=== PATIENT | female | born 1945 | race Caucasian/White ===

== ENCOUNTER → 2017-05-29 10:52 | Outpatient (CLI) | payer MEDICARE, SELFPAY ==
--- NOTE | 2017-05-29 11:01 | XR_ITS ---
XR foot RT min 3V HISTORY: ITS.REASON: RT FOOT PAIN, CONTUSION OF RT FOOT ORDERING PHYSICIAN: Oren Pressley MD PATIENT AGE: 71 years COMPARISON: None FINDINGS: Flexion deformity involves the second, third, and fourth toes with overlap of the mid and proximal phalanges and the PIPs. There is a faint lucency at the distal aspect of the proximal phalanx of the third digit and may be related to mock line from the overlap. A nondisplaced fracture cannot be excluded as there is some minimal cortical irregularity of the distal aspect of the proximal phalanx. Please correlate as to patient's area of pain and tenderness. No other significant anomalies are evident. IMPRESSION: 1. Hammertoe deformity second, third, and fourth toes 2. Possible nondisplaced fracture distal aspect proximal phalanx of the third toe 3. Otherwise negative
== END ==
PROVIDERS: PCP Internal Medicine Adolescent Medicine; Visit Provider Internal Medicine Adolescent Medicine
DX: S90.31XA Contusion of right foot, initial encounter (principal)
CPT/HCPCS: 73630

== ENCOUNTER → 2017-05-31 15:45 | Outpatient (CLI) | payer MEDICARE, SELFPAY ==
--- NOTE | 2017-05-31 15:51 | XR_ITS ---
XR ribs RT min 3V w CXR1V HISTORY: ITS.REASON: RT SIDE CHEST WALL PAIN,LYMPHOMA OF LYMPH NODES ORDERING PHYSICIAN: Victorina Estrada PATIENT AGE: 71 years COMPARISON: None FINDINGS: A frontal view of the chest shows no acute finding. Multiple views of the right ribs were obtained. No fracture or dislocation. No lytic or blastic change. IMPRESSION: Negative RIBS. If pain persists, consider follow-up exam in 7-[address] with 3-D reformats.
== END ==
PROVIDERS: PCP Internal Medicine Adolescent Medicine; Visit Provider Nurse Practitioner Family
DX: R07.89 Other chest pain (principal); C85.98 Non-Hodgkin lymphoma, unspecified, lymph nodes of multiple sites
CPT/HCPCS: 71101

== ENCOUNTER → 2017-06-17 14:24 | Outpatient (POV) | payer MEDICARE, SELFPAY | PROVIDERS: PCP Internal Medicine Adolescent Medicine; Visit Provider Dermatology | DX: Z00.00 Encounter for general adult medical examination without abnormal findings (principal) ==

== ENCOUNTER → 2017-11-08 10:53 | Outpatient (CLI) | payer MEDICARE, SELFPAY ==
--- NOTE | 2017-11-08 10:55 | MM_ITS ---
MM Dig screening mamm BI w/CAD CAD Screening COMPARISON: Digital mammograms with CAD 12/27/2015 and 03/23/2014 INDICATION: There is no personal or family history of breast cancer TECHNIQUE: Standard CC and MLO images were obtained. R2 CAD reviewed. FINDINGS: Mild to moderate diffuse fibroglandular densities are seen throughout both breasts. There is a possible developing asymmetric density upper outer quadrant right breast. This likely is a summation shadow of glandular structures however recommend the patient return for spot compression views. Ultrasound may be necessary as well. There are couple benign-appearing calcifications in each breast. There are no suspicious microcalcifications. IMPRESSION: Fibrofatty parenchyma with possible developing asymmetric density right breast BI-RADS Category: 0 Need Additional Imaging Evaluation RECOMMENDED FOLLOW-UP: IMM - IMMEDIATE FOLLOW-UP RECOMMENDED (A letter has been sent to the patient regarding results of the study.)
== END ==
PROVIDERS: PCP Internal Medicine Adolescent Medicine; Visit Provider Nurse Practitioner Family
DX: Z12.31 Encounter for screening mammogram for malignant neoplasm of breast (principal)
CPT/HCPCS: 77067

== ENCOUNTER → 2017-11-18 13:30 | Outpatient (CLI) | payer MEDICARE, SELFPAY ==
--- NOTE | 2017-11-18 | MM_ITS ---
MM Dig mamm DX unilat RT CAD, US breast RT complete INDICATION: Follow-up abnormal mammogram ORDERING PHYSICIAN: Victorina Estrada PATIENT AGE: 72 years COMPARISON: 11/08/2017 TECHNIQUE: Problem-solving views performed of the right breast along with right breast ultrasound FINDINGS: Scattered asymmetric fibroglandular elements noted. There are a few small benign-appearing nodular opacities laterally which are are 5 mm or less. These are not demonstrated by ultrasound. No malignant appearing mass or malignant appearing microcalcification is evident. Right breast ultrasound: No breast nodules are demonstrated. There are enlarged nodes in the right axilla measuring up to 3 x 1.4 cm with heterogeneous appearance. The patient has known lymphoma. IMPRESSION: Probably benign findings of the right breast regarding the small benign-appearing nodules in the lateral aspect of the right breast Right axillary adenopathy consistent with patient's known lymphoma. BI-RADS Category: 3 Benign Finding Short Term Follow-up RECOMMENDED FOLLOW-UP: 6M - 6 MONTH FOLLOW-UP (A letter has been sent to the patient regarding results of the study.)
== END ==
PROVIDERS: PCP Internal Medicine Adolescent Medicine; Visit Provider Nurse Practitioner Family
DX: R92.8 Other abnormal and inconclusive findings on diagnostic imaging of breast (principal)
CPT/HCPCS: 76641; 77065

== ENCOUNTER 2017-12-31 10:35 | Observation (INO) ==
[2017-12-31 12:07] LABS: Basophils # 0.7 K/mm3 (0-0.2); Basophils % 0.9 % (0.1-2.0); Hematocrit 43.4 % (37.0-47.0); Hemoglobin 14.3 g/dL (12.2-16.2); Lymphocytes # 65.7 K/mm3 (0.7-4.5); Lymphocytes % 87.6 K/mm3 (10-50); Mean Corpuscular Hemoglobin 30.4 pg (27.0-31.2); Mean Platelet Volume 8.9 fl (7.4-10.4); Monocytes # 1.1 K/mm3 (0.1-1.0); Monocytes % 1.4 % (1.7-9.3); Neutrophils # 7.5 K/mm3 (1.8-7.8); Platelet Count 173 K/mm3 (142-424); Red Blood Count 4.71 M/mm3 (4.20-5.40); Red Cell Distribution Width 13.6 % (11.5-17.5)
[2017-12-31 12:16] LABS: Neutrophils % 10.1 % (37.0-80.0)
[2017-12-31 12:17] LABS: White Blood Count 75.4 K/mm3 (4.8-10.8)
[2017-12-31 12:22] LABS: Alanine Aminotransferase 22 U/L (12-78); Albumin Level 3.9 gm/dL (3.4-5.0); Albumin/Globulin Ratio 1.1 (1.1-1.8); Alkaline Phosphatase 63 U/L (46-116); Anion Gap 14.1 mEq/L (5-15); Aspartate Amino Transferase 11 U/L (15-37); Bilirubin,Total 0.4 mg/dL (0.2-1.0); Blood Urea Nitrogen 14 mg/dL (7-18); Carbon Dioxide 25 mmol/L (21.0-32.0); Chloride 102 mmol/L (98-107); Chol/HDL Ratio 1.8 (1-3.5); Cholesterol 141 mg/dL (140-200); Globulin 3.4 gm/dl (1.3-3.2); Glucose 122 mg/dL (74-106); HDL Cholesterol 79 mg/dL (29-89); LDL Cholesterol 42 mg/dL (0-130); Potassium 4.1 mmoL/L (3.5-5.1); Sodium 137 mmol/L (136-145); Total Protein,Serum 7.3 gm/dL (6.4-8.2); Triglycerides 100 mg/dL (30-200); VLDL Cholesterol 20 mg/dL (0-40)
[2017-12-31 12:29] LABS: Thyroid Stimulating Hormone 2.22 uIU/ml (0.358-3.740)
--- NOTE | 2017-12-31 13:00 | Pharmacy Consult Notes ---
[facility] Pharmacy VTE Monitoring - Patient Demographics Admission date: 12/31/17 Report Date: 12/31/17 Time: 13:00 Allergies/Adverse Reactions: Patient Allergies pravastatin Allergy (Mild, Verified 12/21/17 13:52) MUSCLE CRAMPS simvastatin Adverse Reaction (Intermediate, Verified 12/21/17 13:52) MUSCLE CRAMPS promethazine Adverse Reaction (Mild, Verified 12/21/17 13:52) PROBLEMS WITH IV FORM, MAKES CRAZY, NO PROBLEM WITH PO Height: 1.65 m Weight: 98.174 kg - VTE Risk Labs: VTE Related Lab Results Hgb 14.3 g/dL (12.2-16.2) 12/31/17 11:20 Hct 43.4 % (37.0-47.0) 12/31/17 11:20 Plt Count 173 K/mm3 (142-424) 12/31/17 11:20 BUN 14 mg/dL (7-18) 12/31/17 11:20 Creatinine 1.57 mg/dL (0.55-1.02) H 12/31/17 11:20 Was VTE Risk Assessment Performed: Yes VTE Score: 1 VTE Risk Level: Very Low Risk Clinical Trial Participant: No - Prophylaxis VTE Prophylaxis Ordered?: Yes Types of VTE Prophylaxis: TEDS Knee High
[2017-12-31 16:13] LABS: Lymphocytes % 91 % (10-50); Monocytes % 1 % (2-9); Neutrophils % 8 % (42-76); Total Cells Counted 100
[2017-12-31 16:23] LABS: RBC Morphology Normal
[2017-12-31 17:16] LABS: Microscopic, Urine URINE MICROSCOPIC (MICROSCOPIC)
[2017-12-31 17:20] LABS: Appearance,Urine SL CLOUDY (Clear); Bilirubin,Urine Negative (Negative); Blood, Urine 1+ (Negative); Color,Urine YELLOW (Yellow); Glucose,Urine (UA) Negative (Negative); Ketones,Urine Negative (Negative); Leukocyte Esterase,Urine 3+ (Negative); Protein,Urine Negative (Negative); Specific Gravity, Urine <= 1.005 (1.005-1.030); Urobilinogen,Urine 0.2 EU/dl (0.2)
[2017-12-31 17:42] LABS: Bacteria,Urine 3+ /lpf; WBC,Urine Occasional #/hpf (0-3)
--- NOTE | 2018-01-03 21:36 | Cardiology Report ---
PROCEDURE: 2-D M-mode and color Doppler study INDICATIONS FOR THE TEST: Chest pain COPD Heart Murmur Tobacco Smoking Palpitations Fatigue Syncope Edema Hypertension Diabetes Mellitus Rheumatic Fever SOB+KURTZ Obesity+Hyperlipidemia Family History HD Additional History PATIENT INFORMATION HEIGHT: 66 WEIGHT:214 GENDER: Female B/P:164/72 2-D/M-MODE INTERPRETATION: 2-D MEASUREMENTS OBSERVED VALUES IN CMS Right Ventricular Dimension (RVDd) 2.6 Interventricular Septum (Thickness)(IVsd) 1.4 Left Ventricular Internal Dimensions(LVIDd) 4.6 Left Ventricular Posterior Wall (Thickness)(LVPWd) 1.4 Aortic Root 3.4 Aortic Cusp Separation 1.8 Left Atrial Dimensions (LAD) 3.9 2D 1. Left atrium is moderately enlarged, left ventricle is normal size, mild concentric left ventricular hypertrophy, visually estimated ejection fraction 55% with no obvious regional wall motion abnormality. 2. The right atrium and right ventricle are normal size and contractility. 3. The aortic valve is minimally thickened and fibrosed. 4. The mitral and tricuspid valve leaflets are minimally thickened. 5. The pulmonic valve is poorly visualized. 6. No significant pericardial effusion noted. DOPPLER INTERROGATION: Doppler interrogation of the aortic, mitral and tricuspid valvular presence of mild mitral and tricuspid regurgitation, tricuspid regurgitation jet velocity insufficient for calculation of the right ventricular systolic pressure, diastolic parameters are inconclusive. CONCLUSION: 1. Moderately enlarged left atrium, normal left ventricular size, mild concentric left ventricular hypertrophy, visually estimated ejection fraction of 55% with no regional wall motion abnormality, diastolic parameters are inconclusive. 2. Mild mitral and tricuspid regurgitation 3. No significant pericardial effusion noted.
--- NOTE | 2018-01-27 13:20 | H&P/Discharge Summary ---
General - General Admission date:: 12/31/17 Discharge date: 01/01/18 *Admission Date: 12/31/17 *Chief complaint: Heart fluttering *History of present illness: 72-year-old white female with active CLL currently under chemotherapy treatment, who came to my office on the day of admission, yesterday with a chief complaint of heart fluttering. She did felt very weak and was nervous about her heart fluttering. Interestingly she noticed this a couple of days ago when she awoke but 5 days ago had an uncomplicated colonoscopy and she recalls at the nursing staff reported that "you have an irregular heartbeat." The colonoscopy went without incident. She denies chest pain or increasing edema but was very concerned about the fluttering. In my office blood pressure was unremarkable, EKG showed new onset atrial fib rillation and she was admitted overnight for laboratory testing, observation and medication initiation. [facility] History I have reviewed the patient's past medical history: Yes Medical History: Reports:: Anxiety, Cancer (lymphoma), Depression, Hyperlipidemia, Hypertension Denies:: Diabetes Mellitus Type 1, Diabetes Mellitus Type 2, Internal Pacemaker, Lung Disease, MRSA, Seizures Other Medical History: Reports: Other (Obesity, CLL, lymphoma) Laterality Cases: Left: Tonsillectomy, Bilateral: Cataract Other Surgeries: Yes: Cholecystectomy, Colonoscopy, Hernia Repair. No: Pacemaker Amputation: No Fractures: No - *Social History Smoking Status: Former smoker # Packs/Day (cigarettes): 0 #Yrs smoked (if former smoker): 0 Smoking End Date: 40 years Alcohol Intake: never Alcohol Intake Frequency:: other Substance Use Type: denies use Occupational Status: retired - Psychiatric History Expresses thoughts of harming self/others: None Suicide Plan Description: No Plan Pschychiatric History:: Reports:: Anxiety, Depression *Family Hx:: No significant family history Review of Systems - Review of Systems Review of systems:: pertinent systems reviewed and negative unless documented below - Constitutional Reports lack of energy, Reports malaise - Eyes Denies blind spots, Denies blurry vision, Denies change in vision - ENT Denies abnormal hearing, Denies change in voice - *Cardiovascular Reports shortness of breath with activity, Reports irregular heart rhythm, Reports rapid, pounding, or irregular heartbeat, Denies chest pain, Denies chest pain with activity, Denies shortness of breath, Denies leg swelling, Denies shortness of breath when lying down - *Respiratory Denies change in phlegm color, Denies chest congestion, Denies cough - *Gastrointestinal Denies abdominal pain, Denies change in stools, Denies loose stools, Denies vomiting - *Musculoskeletal Denies abnormal walking, Denies joint pain, Denies decreased muscle mass - *Neurologic Reports dizziness, Denies behavioral changes, Denies unsteadiness - Psychiatric Denies abnormal sleep pattern - Endocrine Reports rapid, pounding, or irregular heartbeat, Denies cold intolerance, Denies excessive sweating Exam Vital signs and Labs for Last 24 Hours: Temp Pulse Resp BP Pulse Ox 98.2 F 63 18 156/91 92 L 01/01/18 04:00 01/01/18 04:00 01/01/18 04:00 01/01/18 04:00 01/01/18 04:00 Laboratory Results - last 24 hr 12/31/17 11:20: WBC 75.4 H*, RBC 4.71, Hgb 14.3, Hct 43.4, MCV 92.0, MCH 30.4, MCHC 33.0, RDW 13.6, Plt Count 173, MPV 8.9, Neut % (Auto) 10.1 L, Lymph % (Auto) 87.6 H, [place] % (Auto) 1.4 L, Eos % (Auto) 0.0 L, Baso % (Auto) 0.9, Neut # (Auto) 7.5, Lymph # (Auto) 65.7 H, [place] # (Auto) 1.1 H, Eos # (Auto) 0.0, Baso # (Auto) 0.7 H, Total Counted 100, Neutrophils % (Manual) 8 L, Lymphocytes % (Manual) 91 H, Monocytes % (Manual) 1 L, Platelet Estimate Normal, RBC Morphology Normal 12/31/17 11:20: Sodium 137, Potassium 4.1, Chloride 102, Carbon Dioxide 25, Anion Gap 14.1, BUN 14, Creatinine 1.57 H, Estimated GFR 32 L, Est GFR ( Amer) 39 L, Glucose 122 H, Calcium 9.0, Magnesium 1.5, Total Bilirubin 0.4, AST 11 L, ALT 22, Alkaline Phosphatase 63, Total Protein 7.3, Albumin 3.9, Globulin 3.4 H, Albumin/Globulin Ratio 1.1, Triglycerides 100, Cholesterol 141, LDL Cholesterol 42, VLDL Cholesterol 20, HDL Cholesterol 79, Cholesterol/HDL Ratio 1.8 12/31/17 11:20: Troponin I < 0.02, TSH 2.22 12/31/17 17:10: Urine Color Yellow, Urine Appearance Sl cloudy, Urine pH 6.0, Ur Specific [place] <= 1.005, Urine Protein Negative, Urine Glucose (UA) Negative, Urine Ketones Negative, Urine Blood 1+, Urine Nitrate Negative, Urine Bilirubin Negative, Urine Urobilinogen 0.2, Ur Leukocyte Esterase 3+ A, Urine RBC None, Urine WBC Occasional, Ur Squamous Epith Cells 3-5, Urine Bacteria 3+ I & O for Last 24 hours: Intake & Output 12/29/17 12/30/17 12/31/17 01/01/18 11:59 11:59 11:59 11:59 Intake Total 1200 / 1200 Balance 1200 / 1200 Weight 216 lb 7 oz 216 lb 7 oz Microbiology Reports for the Last 24 Hours: Microbiology 12/31/17 17:10 Urine,Clean Catch Urine Culture - Preliminary Gram Negative Rods Narrative: Patient on admission and this morning is awake, alert. Oropharynx clear. No JVD. Skin is clear of rashes. Lungs have good air movement and are clear. Heart rate irregular in the mid 80s. Previously noted holosystolic murmur Abdomen soft and nontender. No edema or clubbing. Cranial nerves are intact. No evidence of damage to extremity power or sensation. Hospital Course Hospital Course: Patient was admitted. TSH, magnesium, electrolytes and troponin levels were unremarkable. Echocardiogram showed preserved ejection fraction at 55%. Chamber sizes were at the upper limits of normal but were still normal. Patient was given diltiazem which she tolerated very nicely. She was also given Lovenox injections. Given her CHADS score, ongoing chemotherapy which does have the reported side effect of atrial fibrillation hypertension I elected to treat her medically hold on cardioversion attempts at this point. We will initiate Eliquis therapy on discharge today along with diltiazem therapy. We will stop her clonidine and closely monitor her blood pressure on Wednesday. Results Labs on day of discharge: Labs from last 24 hours 12/31/17 12/31/17 12/31/17 17:10 11:20 11:20 WBC RBC Hgb Hct MCV MCH MCHC RDW Plt Count MPV Neut % (Auto) Lymph % (Auto) [place] % (Auto) Eos % (Auto) Baso % (Auto) Neut # (Auto) Lymph # (Auto) [place] # (Auto) Eos # (Auto) Baso # (Auto) Total Counted Neutrophils % (Manual) Lymphocytes % (Manual) Monocytes % (Manual) Platelet Estimate RBC Morphology Sodium 137 Potassium 4.1 Chloride 102 Carbon Dioxide 25 Anion Gap 14.1 BUN 14 Creatinine 1.57 H Estimated GFR 32 L Est GFR ( Amer) 39 L Glucose 122 H Calcium 9.0 Magnesium 1.5 Total Bilirubin 0.4 AST 11 L ALT 22 Alkaline Phosphatase 63 Troponin I < 0.02 Total Protein 7.3 Albumin 3.9 Globulin 3.4 H Albumin/Globulin Ratio 1.1 Triglycerides 100 Cholesterol 141 LDL Cholesterol 42 VLDL Cholesterol 20 HDL Cholesterol 79 Cholesterol/HDL Ratio 1.8 TSH 2.22 Urine Color Yellow Urine Appearance Sl cloudy Urine pH 6.0 Ur Specific [place] <= 1.005 Urine Protein Negative Urine Glucose (UA) Negative Urine Ketones Negative Urine Blood 1+ Urine Nitrate Negative Urine Bilirubin Negative Urine Urobilinogen 0.2 Ur Leukocyte Esterase 3+ A Urine RBC None Urine WBC Occasional Ur Squamous Epith Cells 3-5 Urine Bacteria 3+ 12/31/17 11:20 WBC 75.4 H* RBC 4.71 Hgb 14.3 Hct 43.4 MCV 92.0 MCH 30.4 MCHC 33.0 RDW 13.6 Plt Count 173 MPV 8.9 Neut % (Auto) 10.1 L Lymph % (Auto) 87.6 H [place] % (Auto) 1.4 L Eos % (Auto) 0.0 L Baso % (Auto) 0.9 Neut # (Auto) 7.5 Lymph # (Auto) 65.7 H [place] # (Auto) 1.1 H Eos # (Auto) 0.0 Baso # (Auto) 0.7 H Total Counted 100 Neutrophils % (Manual) 8 L Lymphocytes % (Manual) 91 H Monocytes % (Manual) 1 L Platelet Estimate Normal RBC Morphology Normal Sodium Potassium Chloride Carbon Dioxide Anion Gap BUN Creatinine Estimated GFR Est GFR ( Amer) Glucose Calcium Magnesium Total Bilirubin AST ALT Alkaline Phosphatase Troponin I Total Protein Albumin Globulin Albumin/Globulin Ratio Triglycerides Cholesterol LDL Cholesterol VLDL Cholesterol HDL Cholesterol Cholesterol/HDL Ratio TSH Urine Color Urine Appearance Urine pH Ur Specific [place] Urine Protein Urine Glucose (UA) Urine Ketones Urine Blood Urine Nitrate Urine Bilirubin Urine Urobilinogen Ur Leukocyte Esterase Urine RBC Urine WBC Ur Squamous Epith Cells Urine Bacteria Preliminary micro results at discharge 12/31/17 17:10 Urine Culture - Preliminary Urine,Clean Catch Gram Negative Rods DS: Diagnosis - Discharge Diagnosis (1) New onset atrial fibrillation Status: Acute (2) Hypertension, essential Status: Acute (3) CLL (chronic lymphocytic leukemia) Status: Chronic Discharge Medications - Medications for Discharge Home Medication List at Discharge: New Apixaban [Eliquis] 5 mg PO BID #1 tab.ds.pk dilTIAZem HCl [Diltiazem 180mg 24Hr ER Cap] 180 mg PO DAILY 30 Days cap.er.24h Continue clonazepam 0.5 mg tablet 0.5 mg PO DAILY 30 Days #30 rosuvastatin 5 mg tablet 5 mg PO HS 30 Days #30 paroxetine 40 mg tablet 40 mg PO DAILY 30 Days #30 ibrutinib 140 mg capsule 140 mg PO DAILY bupropion HCl XL 150 mg 24 hr tablet, extended release 150 mg PO DAILY 30 Days #30 Sennosides [Senna] 8.6 mg PO HS Linaclotide [Linzess] 290 mcg PO DAILY Bisoprol/Hydrochlorothiazide [Bisoprolol-Hctz 2.5-6.25 mg Tb] 1 tab PO DAILY Tetrahydrozoline HCl [Eye Drops] 15 ml OP DAILY Discontinued clonidine HCl 0.1 mg tablet 0.1 mg PO DAILY 30 Days #30
== END 2018-01-01 11:30 | disposition home or self-care (01) ==
LOC: 2ND
PROVIDERS: ADMIT Internal Medicine Adolescent Medicine; ATTEND Internal Medicine Adolescent Medicine

== ENCOUNTER → 2018-05-02 13:02 | Outpatient (CLI) | payer MEDICARE, SELFPAY ==
--- NOTE | 2018-05-02 | US_ITS ---
MM Dig mamm DX unilat RT CAD Right breast ultrasound complete with axilla: INDICATION: 6 month follow-up abnormal mammogram ORDERING PHYSICIAN: Victorina Estrada PATIENT AGE: 72 years COMPARISON: 11/08/2017, 11/18/2017 TECHNIQUE: Standard images performed along with spot compression views and right breast ultrasound FINDINGS: Average fibroglandular tissue. The area of asymmetric density in the lateral aspect of the left breast once again noted and appear to compress out with focal spot compression views. There is a 4 mm nodular opacity noted on this MLO view which is probably benign. Not felt to be significant change compared to 03/23/2014. Right breast ultrasound: No cystic or solid nodules evident. Small nodes are present in the axilla. Previously noted adenopathy has improved IMPRESSION: No convincing evidence of malignancy. No significant change. Suggest continue screening mammogram in November 2018 BI-RADS Category: 2 Benign Finding(s) RECOMMENDED FOLLOW-UP: 6M - 6 MONTH FOLLOW-UP (A letter has been sent to the patient regarding results of the study.)
== END ==
PROVIDERS: PCP Nurse Practitioner Family; Visit Provider Nurse Practitioner Family
DX: R92.8 Other abnormal and inconclusive findings on diagnostic imaging of breast (principal)
CPT/HCPCS: 76641; 77065

== ENCOUNTER → 2018-10-21 09:52 | Outpatient (CLI) | payer MEDICARE, SELFPAY ==
--- NOTE | 2018-10-21 09:57 | US_ITS ---
US Arterial Lower Ext Rest History: ITS.REASON: skin changes, weak pulses, hypertension ORDERING PHYSICIAN: Dian Gale DPM PATIENT AGE: 73 years TECHNIQUE: Segmental pressures obtained of both right and left leg. These are compared to brachial blood pressure to yield index at each level sampled including summary MENG. The data sheets from the procedure are available in PACS FINDINGS Rest study only performed today No prior studies available for comparison. Blood pressures reported are in millimeters mercury. RIGHT LEG MENG = 1.0. RIGHT LEG TBI=.5 Brachial BP: 182 Thigh BP: 210 Calf BP: 200 Ankle PT: 191 Ankle DP : 184 Digit =103 LEFT LEG MENG = .9 LEFT LEG TBI= .7 Brachial BPD: 189 Thigh BP: 204 Calf BP: 179 Ankle PT:167 Ankle DP: 147 Digit = 130 Pulses and waveforms: Normal IMPRESSION: The ABIs as reported above are within normal limits. Waveforms and pulses are also unremarkable. The right TBI is low suggesting small vessel disease
== END ==
PROVIDERS: PCP Nurse Practitioner Family; Visit Provider Podiatrist
DX: R09.89 Other specified symptoms and signs involving the circulatory and respiratory systems (principal)
CPT/HCPCS: 93923

== ENCOUNTER → 2018-11-15 16:13 | Outpatient (CLI) | payer MEDICARE, SELFPAY ==
--- NOTE | 2018-11-15 16:16 | MM_ITS ---
MM Dig screening mamm BI w/CAD CAD Screening COMPARISON: Diagnostic right mammogram with CAD 05/02/2018 and diagnostic right gram with CAD 11/18/2017 INDICATION: There is no personal or family history of breast cancer TECHNIQUE: Standard CC and MLO images were obtained. R2 CAD reviewed. FINDINGS: Scattered fibroglandular densities are seen in both breast. Again is a small area of asymmetric glandular tissue outer quadrant right breast only definitely seen on the cc view without corresponding focal abnormality on MLO view. This likely is simply asymmetric glandular tissue. There are few benign-appearing microcalcifications in each breast. There is no suspicious lesion and there are no suspicious microcalcifications. IMPRESSION: Fibrofatty parenchyma with no suspicious lesion seen BI-RADS Category: 2 Benign Finding(s) RECOMMENDED FOLLOW-UP: 1YR - 1 YEAR FOLLOW-UP (A letter has been sent to the patient regarding results of the study.)
== END ==
PROVIDERS: PCP Nurse Practitioner Family; Visit Provider Nurse Practitioner Family
DX: Z12.31 Encounter for screening mammogram for malignant neoplasm of breast (principal)
CPT/HCPCS: 77067

== ENCOUNTER 2018-12-07 16:00 | Outpatient (RCR) | payer MEDICARE, SELFPAY ==
--- NOTE | 2018-08-09 08:44 | HMH.PTOPWND ---
Rehab Outpt Wound Evaluation Rehab OP Wound Evaluation Start: 08/09/18 08:04 Freq: Status: Active Protocol: Document 08/09/18 08:40 RUPERT (Rec: 08/09/18 08:44 PHORNE [id number]) Electronically Signed By Timmy Gomes, PT 08/09/18 08:40 Subjective/History History History Pt is 72 yowf who presents with c/o right LE edema x ~ 3 mos with insidious onset of symptoms. She reports she first noticed redness in the right lower leg which then became edema and ecchymosis. SHe had US performed which was negative for DVT and she is on coumadin. She reports she is currently taking an oral chemo medication to treat her lymphoma diagnosed in 2011, she is unsure of what type lymphoma she has been diagnosed with. She also reports tenderness to palpation in her right LE at pes anserine bursa, GT bursa, and iliopsoas proximal tendon (superior to inguinal area). She has PMH of HTN, HL, Lymphoma, lap CCY, abdominal hernia, and bilateral TKA. Subjective Subjective Pain is 8/10 at worst in right superior inguinal area and only intermittent, currently 0 /10. Lymphedema Eval Classification of Lymphedema Secondary Lymphedema Yes Stemmer's sign Stemmer's Sign no Stage of Lymphedema Lymphedema stages Stage I (Pitting edema, reduces w/ elevation, no fibrosis) Skin Changes Dry Skin Yes Redness Yes Discoloration of Skin Yes Other Changes Yes Pain Scale Pain Scale (0-10) 8 Radiation Therapy Has received radiation therapy no Chemo Therapy Has received chemo therapy yes Affected Extremities Areas Affected by Lymphedema/Edema Abdomen,Right Lower Extremity Manual Lymphatic Drainage Treatment Area MLD Treatment Area Abdomen,Right Lower Extremity Wound Problems/Impairments Impairments Problems/Impairmments Palpation Tenderness,Impaired Gait Pattern,Impaired Walking, Imp
--- NOTE | 2018-09-30 13:29 | HMH.RHREAS ---
Rehab Reassessment Rehab OP Re-assessment Start: 09/30/18 13:22 Freq: Status: Active Protocol: Document 09/30/18 13:23 RUPERT (Rec: 09/30/18 13:29 RUPERT [id number]) Electronically Signed By Timmy Gomes, PT 09/30/18 13:23 Rehab Re-assessment Subjective Subjective Pt presents today with increased edema and redness in left LE with new order from MD for further treatment. She reports increased tenderness to palpation associated with her other symptoms and they have been present for ~ 1 mo. She reports feeling anxious about her circulation and losing her leg. She continues to take anticoagulant medication. Objective Objective Notes Left LE circumferential measurements: Total = 211.4 cm . Increased hemosiderin staining noted on the anterior left bower and palpation tenderness 3+/4 throughout the lower left leg. Assessment Progress Assessment Progressing as Expected Assessment Notes Pt has improved right LE edema and pain, but symptoms are increased on the left LE. Goals Not Met ST-6 LT-7 Revised Goals none Plan Plan Continue per initial POC. Frequency of Therapy 2 x/wk Duration of therapy 8 wks Time and Billing Re-Eval Time 15 Re-Eval Billing Units 1 PHYSICIAN CERTIFICATION: I certify the specified therapy services for Shea Iverson are required, authorized, and reviewed every 30 days.
== END 2018-12-07 16:05 | disposition home or self-care (01) ==
LOC: PT 16:00
PROVIDERS: PCP Nurse Practitioner Family; Visit Provider Nurse Practitioner Family
DX: I89.0 Lymphedema, not elsewhere classified (principal); R60.9 Edema, unspecified; C83.00 Small cell B-cell lymphoma, unspecified site
CPT/HCPCS: 97140; 97163; 97164; 97760

== ENCOUNTER → 2019-01-09 15:04 | Outpatient (CLI) | payer OTHER, MEDICARE, SELFPAY ==
--- NOTE | 2019-01-09 15:14 | XR_ITS ---
PROCEDURE: XR CERVICAL SPINE 5V CLINICAL INDICATION: WHIPLASH Left-sided neck pain radiating into the left arm COMPARISON: HDWO CT HEAD W/O CONTRAST from 11/30/2013 FINDINGS: Normal alignment. Degenerative disc disease C5-C6 and C6-C7 with endplate osteophytes. Minimal foraminal narrowing on the right at C5-C6 and on the left at C3-C4. Facet arthritic changes are noted from C3-C7. There is incomplete arch posteriorly at C1 and may represent a congenital finding. IMPRESSION: Degenerative changes as described above Dictated by: Avery Henning MD 01/09/2019 16:36 Electronically signed by Avery Henning MD in [place] 01/09/2019 16:36
== END ==
PROVIDERS: PCP Internal Medicine Adolescent Medicine; Visit Provider Internal Medicine Adolescent Medicine
DX: S13.4XXA Sprain of ligaments of cervical spine, initial encounter (principal)
CPT/HCPCS: 72050

== ENCOUNTER → 2019-02-14 15:02 | Outpatient (CLI) | payer MEDICARE, SELFPAY ==
--- NOTE | 2019-02-14 15:04 | US_ITS ---
PROCEDURE: US TRANSVAGINAL CLINICAL INDICATION: POST MENOPAUSAL BLEEDING COMPARISON: No exams were available for comparison FINDINGS: UTERUS: 6 x 2.6 x 3.2 cm with a combined endometrial thickness of 5 mm. There is a small nabothian cyst at 9 mm. The right ovary is 1.9 x 1.3 cm. The left ovary is 1.9 x 1.8 cm. No dominant cyst evident. No cul-de-sac fluid. IMPRESSION: Endometrial thickness is upper limits of normal for a postmenopausal patient otherwise negative pelvic ultrasound Dictated by: Avery Henning MD 02/14/2019 18:24 Electronically signed by Avery Henning MD in [place] 02/14/2019 18:24
== END ==
PROVIDERS: PCP Nurse Practitioner Family; Visit Provider Nurse Practitioner Family
DX: N95.0 Postmenopausal bleeding (principal)
CPT/HCPCS: 76830

== ENCOUNTER 2019-03-07 14:30 | Outpatient (RCR) | payer OTHER, MEDICARE, SELFPAY ==
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
== END 2019-03-07 14:35 | disposition home or self-care (01) ==
LOC: PT 14:30
PROVIDERS: PCP Nurse Practitioner Family; Visit Provider Internal Medicine Adolescent Medicine
DX: S13.4XXA Sprain of ligaments of cervical spine, initial encounter (principal)
CPT/HCPCS: 97014; 97016; 97033; 97035; 97110; 97140; 97163; 97164; G0283

== ENCOUNTER 2019-03-07 16:00 | Outpatient (RCR) | payer MEDICARE, SELFPAY ==
--- NOTE | 2019-02-20 16:02 | HMH.PTOPWND ---
Rehab Outpt Wound Evaluation Rehab OP Wound Evaluation Start: 02/20/19 14:50 Freq: Status: Active Protocol: Document 02/20/19 15:48 RUPERT (Rec: 02/20/19 16:01 PHORRUDOLPH [id number]) Electronically Signed By Timmy Gomes, PT 02/20/19 15:48 Subjective/History History History Pt is 73 yowf who presents with c/o B LE and UE feeling heavy and achy with increased edema. She is well known to our clinic na dhas been treated for B LE edema previously. She c/o tenderness to palpation throughout B lower legs and sgnificant c/o cramping in B LE intermittently. She reports some increased weight despite no changes in her diet. She is currently undergoing chemo for chronic lymphocytic leukemia (CLL). She also has PMHof B TKA, CCY, HTN. Subjective Subjective No c/o pain today, but does c/ o fatigue and tenderness to palpation throughout B lower legs and arms. Lymphedema Eval Classification of Lymphedema Secondary Lymphedema Yes Stemmer's sign Stemmer's Sign no Stage of Lymphedema Lymphedema stages Stage II (Pitting edema, increased fibrosis w/ decreased pitting) Skin Changes Dry Skin Yes Redness Yes Discoloration of Skin Yes Other Changes Yes Chemo Therapy Has received chemo therapy yes Affected Extremities Areas Affected by Lymphedema/Edema Right Upper Extremity,Left Upper Extremity,Abdomen,Right Lower Extremity,Left Lower Extremity Manual Lymphatic Drainage Treatment Area MLD Treatment Area Right Upper Extremity,Left Upper Extremity,Abdomen,Right Lower Extremity,Left Lower Extremity Wound Problems/Impairments Impairments Problems/Impairmments Palpation Tenderness,Impaired Strength,Impaired Endurance, Impaired Walking,Impaired Recreational Activities, Increased Edema,Lymphedema Present,Impaired Self Care/
== END 2019-03-07 16:05 | disposition home or self-care (01) ==
LOC: PT 16:00
PROVIDERS: PCP Nurse Practitioner Family; Visit Provider Internal Medicine Adolescent Medicine
DX: I89.0 Lymphedema, not elsewhere classified (principal)
CPT/HCPCS: 97140; 97162

== ENCOUNTER 2019-04-27 14:00 | Outpatient (RCR) | payer OTHER, MEDICARE, SELFPAY ==
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
== END 2019-04-27 14:05 | disposition home or self-care (01) ==
LOC: OT 14:00
PROVIDERS: PCP Nurse Practitioner Family; Visit Provider Internal Medicine Adolescent Medicine
DX: M25.512 Pain in left shoulder (principal)
CPT/HCPCS: 97014; 97035; 97110; 97166; G0283

== ENCOUNTER → 2019-05-04 12:53 | Outpatient (CLI) | payer OTHER, MEDICARE, SELFPAY ==
--- NOTE | 2019-05-04 12:59 | XR_ITS ---
PROCEDURE: XR SHOULDER LT MIN 2V CLINICAL INDICATION: LT ANTERIOR PAIN Posttraumatic pain COMPARISON: [id number] VIEWS from 12/05/2013 FINDINGS: No fracture, dislocation, lytic change, or blastic change evident. No significant degenerative change IMPRESSION: No acute finding Dictated by: Avery Henning MD 05/04/2019 15:40 Electronically signed by Avery Henning MD in [place] 05/04/2019 15:40
== END ==
PROVIDERS: PCP Nurse Practitioner Family; Visit Provider Nurse Practitioner Family
DX: M25.512 Pain in left shoulder (principal)
CPT/HCPCS: 73030

== ENCOUNTER → 2019-05-30 12:57 | Outpatient (POV) | payer OTHER, MEDICARE, SELFPAY | PROVIDERS: Visit Provider Dermatology | DX: Z00.00 Encounter for general adult medical examination without abnormal findings (principal) ==

== ENCOUNTER → 2019-06-07 13:35 | Outpatient (CLI) | payer OTHER, MEDICARE, SELFPAY ==
--- NOTE | 2019-06-07 13:35 | MR_ITS ---
PROCEDURE: MR SHOULDER LT WO CON CLINICAL INDICATION: shoulder pain COMPARISON: No exams were available for comparison TECHNIQUE: Routine multiplanar multisequence exam FINDINGS: There is some patient motion artifact degradation of images. There is a partial-thickness tear of the supraspinatus tendon of the rotator cuff along the articular side of joint. A moderate sized joint effusion is noted. There is mild acromioclavicular joint arthropathy with fluid in the joint space with some bony in fibrous overgrowth projecting inferiorly not appearing to cause significant rotator cuff impingement. Bicipital tendon appears appropriately located. Small amount of fluid is seen in the subscapularis bursa and in the subacromial/subdeltoid bursa. Fraying and tear is of the anterior superior and posterior inferior glenoid rashard are noted IMPRESSION: Partial-thickness tear of supraspinatus tendon of rotator cuff. Labral tears. Dictated by: Milton Buck 06/07/2019 16:28 Electronically signed by Milton Buck in [place] 06/07/2019 16:28
== END ==
PROVIDERS: PCP Nurse Practitioner Family; Visit Provider Orthopaedic Surgery
DX: M25.512 Pain in left shoulder (principal)
CPT/HCPCS: 73221

== ENCOUNTER 2019-06-13 17:00 | Outpatient (CLI) | payer MEDICARE, SELFPAY ==
[2019-06-13 17:16] VITALS: BMI 39.9
[2019-06-13 17:42] VITALS: BP 137/89; PULSE 101; RESP 18; TEMP 36.9; O2SAT 96
[2019-06-13 17:44] LABS: Basophils # 0.1 K/mm3 (0-0.2); Basophils % 0.6 % (0.1-2.0); Eosinophils # 0.1 K/mm3 (0.0-0.4); Eosinophils % 0.8 % (0.1-12.0); Hematocrit 40.9 % (37.0-47.0); Hemoglobin 13.5 g/dL (12.2-16.2); Lymphocytes # 3.5 K/mm3 (0.7-4.5); Lymphocytes % 38.3 % (10-50); Mean Corpuscular HGB Conc 33.1 g/dL (31.8-35.4); Mean Corpuscular Hemoglobin 29.9 pg (27.0-31.2); Mean Corpuscular Volume 90.4 fl (81-99); Mean Platelet Volume 9.6 fl (7.4-10.4); Monocytes # 0.5 K/mm3 (0.1-1.0); Monocytes % 5.7 % (1.7-9.3); Neutrophils % 54.6 % (37.0-80.0); Platelet Count 185 K/mm3 (142-424); Red Blood Count 4.52 M/mm3 (4.20-5.40); Red Cell Distribution Width 15.1 % (11.5-17.5); White Blood Count 9.2 K/mm3 (4.8-10.8)
[2019-06-13 17:55] LABS: Alanine Aminotransferase 18 U/L (12-78); Albumin Level 4.4 g/dl (3.5-5.0); Albumin/Globulin Ratio 1.6 (1.1-1.8); Alkaline Phosphatase 48 U/L (38-126); Anion Gap 12.9 mEq/L (5-15); Aspartate Amino Transferase 26 U/L (14-36); Bilirubin,Total 0.5 mg/dl (0.2-1.3); Blood Urea Nitrogen 20 mg/dl (7-17); Calcium 9.6 mg/dl (8.4-10.2); Carbon Dioxide 24 mmol/L (22.0-30.0); Chloride 100 mmol/L (98-107); Creatinine Clearance Estimated 60 mL/min (50-200); Estimated Glomerular Filt Rate 37 ml/min (>60); GFR (African American) 44 ML/MIN (>60); Globulin 2.7 g/dL (1.3-3.2); Glucose 122 mg/dl (74-100); Potassium 4.9 mmoL/L (3.5-5.1); Sodium 132 mmol/L (136-145); Total Protein,Serum 7.1 g/dl (6.3-8.2)
[2019-06-13 17:56] LABS: Chol/HDL Ratio 2.4 (1-3.5); Cholesterol 147 mg/dl (140-200); HDL Cholesterol 62 mg/dl (40-60); Triglycerides 181 mg/dl (30-150); VLDL Cholesterol 36 mg/dL (0-40)
[2019-06-13 18:07] LABS: Direct LDL Cholesterol 51.02 mg/dL (100-129); Troponin I 0.03 ng/ml (0.00-0.034)
[2019-06-13 18:47] VITALS: BP 148/96; PULSE 86; RESP 18; TEMP 36.7; O2SAT 98
[2019-06-15 12:37] LABS: Vitamin B12 >2000 pg/mL (232-1245); Vitamin D 25 Hydroxy 42.3 ng/mL (30.0-100.0)
== END 2019-06-13 18:49 | disposition home or self-care (01) ==
PROVIDERS: PCP Nurse Practitioner Family; Visit Provider Nurse Practitioner Family
DX: I95.9 Hypotension, unspecified (principal); R55 Syncope and collapse; Z79.899 Other long term (current) drug therapy
CPT/HCPCS: 80053; 80061; 82607; 82652; 84484; 85025; 96360

== ENCOUNTER → 2019-10-03 13:44 | Outpatient (POV) | payer OTHER, MEDICARE, SELFPAY | PROVIDERS: PCP Nurse Practitioner Family; Visit Provider Physician Assistant | DX: Z00.00 Encounter for general adult medical examination without abnormal findings (principal) ==

== ENCOUNTER → 2019-11-21 15:22 | Outpatient (CLI) | payer MEDICARE, SELFPAY ==
--- NOTE | 2019-11-21 15:25 | MM_ITS ---
PROCEDURE: MM DIG SCREENING MAMM BI W/CAD Patient Age:74Y CLINICAL INDICATION: SCREENING no hormones. No new complaints. Patient has had lymphoma/leukemia. Family history-negative COMPARISON: [facility] DIGITAL MAMM-SCREEN BILATERAL from 01/12/2012 [facility] DIG MAMM-SCREEN MONE from 11/24/2012 [facility] DIG MAMM-SCREEN MONE from 03/23/2014 [facility] DIG MAMM-SCREEN MONE from 12/27/2015 [facility] MM Dig screening mamm BI w/CAD from 11/08/2017 [facility] MM Dig mamm DX unilat RT CAD from 11/18/2017 [facility] MM Dig mamm DX unilat RT CAD from 05/02/2018 DIG MAMM-SCREEN MONE from 11/15/2018 TECHNIQUE: Standard CC and MLO images were obtained. R2 CAD reviewed. Bilateral digital breast tomosynthesis included. FINDINGS: Raba-hn-qojdfery density breast. Stable mild asymmetry with fibroglandular elements slightly more apparent towards the upper outer quadrant right breast than left. No new dominant or suspicious mass either breast. No suspicious calcifications. Scattered benign calcifications Right breast: No new areas of concern. Relative density central breast CC view is been seen on studies dating back to 2015-with no significant change. This area with no focal area of concern on tomosynthesis either Left breast: No new areas of concern The a less than 5 mm focal density superior breast on MLO view has been seen on previous studies and may be attributable to a skin mole previously evident periphery upper outer quadrant again observed but stable IMPRESSION: Stable bilateral mammogram. No new areas of concern. Bilateral follow-up 1 year recommended BI-RAD Category: 1 Negative FOLLOW-UP: 1YR 1 Year Follow-up (A letter has been sent to the patient regarding results of the study.) Dictated b Jose Tong MD 11/24/2019 12:13 Jose Tong MD in [place] 11/24/2019 12:13
== END ==
PROVIDERS: PCP Nurse Practitioner Family; Visit Provider Nurse Practitioner Family
DX: Z12.31 Encounter for screening mammogram for malignant neoplasm of breast (principal)
CPT/HCPCS: 77063; 77067

== ENCOUNTER 2019-12-06 13:00 | Outpatient (RCR) | payer MEDICARE, SELFPAY ==
--- NOTE | 2019-09-26 16:07 | HMH.PTOPWND ---
Rehab Outpt Wound Evaluation Rehab OP Wound Evaluation Start: 09/26/19 15:04 Freq: Status: Active Protocol: Document 09/26/19 15:35 RUPRET (Rec: 09/26/19 15:47 PHOFREEMAN [id number]) Electronically Signed By Timmy Gomes, PT 09/26/19 15:35 Subjective/History History History Pt is 74 yowf who presents with c/o B LE edema x 1-2 yrs with increased tenderness to palpation B. She reports insidious onset of symptoms, but has multiple co- morbidities that could increase her edema. She is currently taking oral chemo due to CLL and has hx of A-fib with chronic warfarin use, poorly controlled HTN, HL, B TKA, CCY. She reports no pain at rest, but she does feel her frequent bruising has worsened. Subjective Subjective She is very tender to palpation on B LE from mid- thigh distally. Lymphedema Eval Classification of Lymphedema Secondary Lymphedema Yes: poss CVI & co-morbidities Stemmer's sign Stemmer's Sign yes Stage of Lymphedema Lymphedema stages Stage II (Pitting edema, increased fibrosis w/ decreased pitting) Skin Changes Dry Skin Yes Redness Yes Discoloration of Skin Yes Other Changes Yes Radiation Therapy Has received radiation therapy no Chemo Therapy Has received chemo therapy yes Affected Extremities Areas Affected by Lymphedema/Edema Abdomen,Right Lower Extremity, Left Lower Extremity Manual Lymphatic Drainage Treatment Area MLD Treatment Area Abdomen,Right Lower Extremity, Left Lower Extremity Wound Problems/Impairments Impairments Problems/Impairmments Palpation Tenderness,Impaired Range of Motion,Impaired Strength,Impaired Endurance, Impaired Gait Pattern,Impaired Walking,Increased Edema, Lymphedema Present,Impaired Self Care/Self Management Prognosis Rehab Potential Fair Clinical Impression Consistent with Diagnosis Yes Short Term Goals Number of Weeks 4 Decreased Palpation Tenderness Yes: to
== END 2019-12-06 14:00 | disposition home or self-care (01) ==
LOC: PT 13:00
PROVIDERS: PCP Nurse Practitioner Family; Visit Provider Podiatrist
DX: I89.0 Lymphedema, not elsewhere classified (principal)
CPT/HCPCS: 97110; 97140; 97162

== ENCOUNTER 2019-12-06 14:00 | Outpatient (RCR) | payer OTHER, MEDICARE, SELFPAY ==
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
--- NOTE | 2019-11-07 13:56 | HMH.RHREAS ---
Rehab Reassessment Rehab OP Re-assessment Start: 11/07/19 13:44 Freq: Status: Active Protocol: Document 11/07/19 13:44 LINDA (Rec: 11/07/19 13:56 LINDA [id number]) Electronically Signed By Corey Bull, PT 11/07/19 13:44 Rehab Re-assessment Subjective Subjective PT REPORTS 4/10 L SH PAIN ON VAS, AND FEELS 76% BETTER OVERALL SINCE I EVAL Objective Objective Notes AROM: L SH FLX 0-135, ABD 0- 110 MMT: L SH FLX 4-/5, ABD 4-/5, IR 4/5, ER 4/5 TTP: L SH ANT RTC/JT LINE 2- 4, POST RTC 2-34, PERISCAP MM 06/20 Assessment Progress Assessment Progressing as Expected Assessment Notes PT W/IMPROVED ROM, AND STRENGTH Patient goals met STG'S 07/24 Goals Not Met STG'S 06/23, LTG'S 10/23 Plan Plan PT TO CONT. W/SKILLED P.T. TO MAKE FURTHER IMPROVEMENTS IN AROM, STRENGTH, AND TTP TO ALLOW FOR OPTIMAL FUNCTION Frequency of Therapy 1-2X/WK Duration of therapy 2-4WKS Time and Billing Re-Eval Time 15 Re-Eval Billing Units 0 PHYSICIAN CERTIFICATION: I certify the specified therapy services for Shea Iverson are required, authorized, and reviewed every 30 days.
== END 2019-12-06 14:58 | disposition home or self-care (01) ==
LOC: PT 14:00
PROVIDERS: PCP Nurse Practitioner Family; Visit Provider Orthopaedic Surgery
DX: M75.101 Unspecified rotator cuff tear or rupture of right shoulder, not specified as traumatic (principal)
CPT/HCPCS: 97010; 97014; 97033; 97035; 97110; 97163; 97164; G0283

== ENCOUNTER → 2019-12-20 16:28 | Outpatient (CLI) | payer MEDICARE, SELFPAY ==
--- NOTE | 2019-12-20 16:32 | CA_ITS ---
APPROVED REPORT Right Lower Extremity Venous Study for DVT. Apartment Leasing Manager: JONATHAN Indications Lower Extremity Pain: Right Patient's leg is discolored from the knee down. Patient states that a dog scratched her right leg Wednesday12/16/19. Medications Coumadin Patient takes warfarin due to AFIB Vein Imaging CFV (R): compressive, spontaneous, phasic, augmentation FEM (R): compressive, spontaneous, phasic, augmentation POP (R): compressive, spontaneous, phasic, augmentation PTV (R): Compressible GSV (R): compressive, spontaneous, phasic, augmentation SSV (R): Compressible Peroneals (R):Compressible GAS (R): Compressible Findings No evidence of DVT or superficial thrombophlebitis in the veins scanned of the right lower extremity. Conclusion No evidence of DVT or superficial thrombophlebitis in the veins scanned of the right lower extremity. Electronically signed by : Avery Henning MD 12/21/2019 17:29:26
== END ==
PROVIDERS: PCP Internal Medicine Adolescent Medicine; Visit Provider Internal Medicine Adolescent Medicine
DX: R60.0 Localized edema (principal)
CPT/HCPCS: 93971

== ENCOUNTER → 2020-02-27 10:46 | Outpatient (CLI) | payer MEDICARE, SELFPAY ==
--- NOTE | 2020-02-27 10:47 | CA_ITS ---
APPROVED REPORT EXAM: Comprehensive 2D, Doppler, and color-flow Echocardiogram Dust Box Tender: Anyi Bryan, RT(R) Ht: 5 ft 5 in Wt: 260lbs BSA: 2.21 BP: 142/84 mmHg Indications: SOA, chronic AFIB, Abn EKG, edema, HTN, hyperlipidemia. TDE due to body habitus, patient refuses IV access for Definity contrast. 2D Dimensions LVOT 1.99 cm (M/F) 1.5-2.5 M-Mode Dimensions RVDd 1.96 cm (0.9-2.6) LA Diam 3.72 cm (1.9-4.0) LVDd 3.66 cm (3.5-5.7) Ao Diam 2.65 cm (2.0-3.7) LVDs 2.68 cm (3.5-5.7) IVSd 1.65 cm (0.6-1.1) PWd 0.85 cm (0.6-1.1) EF (Teich) 53.20% FS 26.80% EDV (Teich) 56.60 mL ESV (Teich) 26.50 mL LV Diastology E Decel Time 150.00 (160-240 msec) E/A Ratio 0.7 MED E' 4.90 (< 7 cm/sec) E'/MED E' Ratio 11.45 (>14) LAT E' 7.40 (<10 cm/sec) E/LAT E' Ratio 7.58 (>14) Mitral Valve MV E Max Akyode. 56.00 (40-130 cm/s) MV A Velocity 86.00 (40-130 cm/s) E/A Ratio 0.65 MV Decel. Time 150.00 (160-240 ms) MV PHT 44.00 ms Left Ventricle Left atrium is mildly enlarged, left ventricle is normal size, mild concentric left ventricular hypertrophy, visually estimated ejection fraction 55% with no regional wall motion abnormality, grade 1 diastolic dysfunction seen without tissue Doppler evidence of raise left atrial pressure. Right Ventricle Right atrium and right ventricular normal size and contractility. Aortic Valve Aortic valve is minimally thickened and fibrosed, there is no aortic stenosis or aortic insufficiency. Mitral Valve Mitral valve is minimally thickened, there is mild mitral regurgitation. Tricuspid Valve Tricuspid valve is grossly normal, there is mild tricuspid regurgitation. Pulmonic Valve Pulmonic valve is poorly visualized. Great Vessels Aortic root is normal size. Pericardium No significant pericardial effusion noted. Conclusion 1. Mildly enlarged left atrium, normal left ventricular size, mild concentric left ventricular hypertrophy, visually estimated ejection fraction 55% with no regional wall motion abnormality, grade 1 diastolic dysfunction seen without tissue Doppler evidence of raise left atrial pressure. 2. Mild mitral and tricuspid regurgitation. 3. No significant pericardial effusion noted. Electronically signed by : Vasyl Alberts, 02/28/2020 05:37:38
== END ==
PROVIDERS: PCP Internal Medicine Adolescent Medicine; Visit Provider Internal Medicine Cardiovascular Disease
DX: R06.02 Shortness of breath (principal); R60.0 Localized edema; R94.31 Abnormal electrocardiogram [ECG] [EKG]
CPT/HCPCS: 93306

== ENCOUNTER 2020-03-11 13:50 | Outpatient (CLI) | payer MEDICARE, SELFPAY ==
[2020-03-11 14:52] LABS: PHA INR Fingerstick 2.8 (0.9-1.1)
== END 2020-03-11 15:37 | disposition home or self-care (01) ==
LOC: ACC 13:52
PROVIDERS: PCP Nurse Practitioner Family; Visit Provider Nurse Practitioner Family
DX: Z51.81 Encounter for therapeutic drug level monitoring (principal); Z79.01 Long term (current) use of anticoagulants
CPT/HCPCS: 85610; 99211; G0463

== ENCOUNTER → 2020-03-27 13:03 | Outpatient (CLI) | payer MEDICARE, SELFPAY | PROVIDERS: PCP Nurse Practitioner Family; Visit Provider Nurse Practitioner Family | DX: G47.33 Obstructive sleep apnea (adult) (pediatric) (principal); R06.02 Shortness of breath; R40.0 Somnolence; R53.83 Other fatigue | CPT/HCPCS: G0399 ==

== ENCOUNTER 2020-04-02 08:38 | Day surgery (SDC) | payer MEDICARE, MEDICAID, SELFPAY ==
[2020-04-02] VITALS (10 sets, daily range): BP systolic 138–185; BP diastolic 52–78; PULSE 40–86; RESP 13–20; O2SAT 95–99; BMI 43.2
--- NOTE | 2020-04-02 | IR_ITS ---
APPROVED REPORT Patient Location: Outpatient PROCEDURES Right heart catheterization Left heart catheterization Left ventriculogram Selective coronary angiogram INDICATION Accelerated angina pectoris, Pulmonary hypertension, Right-sided congestive heart failure, Informed consent was obtained prior to the procedure. COMPLICATIONS None Estimated Blood Loss: less than 10ml TECHNIQUE 1% lidocaine used anesthetize the right anterior aspect of the right wrist. The right radial artery was accessed via the Salinger technique and a 6 Korean hydrophilic sheath was placed in the right radial artery. The right internal jugular vein cannot be accessed therefore 1% lidocaine was used to anesthetize the right groin and the right femoral vein was accessed via the Salinger technique. A 7 [place] sheath was placed in the right femoral vein. At this point an arterial cocktail with heparin was administered and a trap catheter was used to perform left heart catheterization left ventriculogram and selective coronary angiogram. The catheter was removed and the [place]-July catheter was then floated into the pulmonary arteries under fluoroscopic and hemodynamic guidance. Saturations were obtained and a full hemodynamic study was performed. At the end of the procedure the apparatus was removed the patient was transferred to the postop holding her stable condition for sheath removal ANGIOGRAPHIC RESULTS The left main artery Normal The left anterior descending artery Normal The circumflex artery Nondominant normal The right coronary artery Large dominant normal The SHIELDS ventriculogram reveals Hyperdynamic 75% The left ventricular end-diastolic pressure 20 mmHg Right atrial pressure 5 mmHg Right ventricular pressure 52/5 mmHg Pulmonary artery pressure 48/18 mmHg Pulmonary artery occlusion pressure 15 mmHg Right atrial saturation 82% Pulmonary artery saturation 84% IMPRESSION Normal coronary arteries Hyperdynamic ventricle consistent with hypertensive heart disease Elevated left-sided filling pressures consistent with diastolic heart failure secondary to hypertensive heart disease Moderate to severe pulmonary hypertension as described above PLAN 1. Patient experience blood pressures of 230 mm systolic during the cardiac procedure. I suspect all of her problems stem from poorly controlled hypertension resulting in moderate to severe hypertensive heart disease accompanied by diastolic dysfunction 2. Aggressively treat hypertension 3. Weight loss 4. Risk factor modification Electronically signed by : Brando Damon, 04/02/2020 13:18:52
[2020-04-02 09:45] LABS: INR 1.13 (0.9-1.1); Prothrombin Time 12.4 seconds (9.4-11.8)
[2020-04-02 14:44] LABS: CATHL Arterial O2 SAT 84.8 % (90-100); CATHL Venous O2 SAT 82.9 % (75-80)
--- NOTE | 2020-04-02 15:58 | SUR.PHASEII ---
Right ij sight from [facility] clean dry and intact through shift and at discharge. Patient and family member states understanding of all discharge instructions.
== END 2020-04-02 16:08 | disposition home or self-care (01) ==
PROVIDERS: PCP Nurse Practitioner Family; Visit Provider Internal Medicine
DX: I27.20 Pulmonary hypertension, unspecified (principal); I50.811 Acute right heart failure; I50.32 Chronic diastolic (congestive) heart failure; I89.0 Lymphedema, not elsewhere classified; Z87.891 Personal history of nicotine dependence; I11.0 Hypertensive heart disease with heart failure; I48.91 Unspecified atrial fibrillation; R94.31 Abnormal electrocardiogram [ECG] [EKG]; E78.5 Hyperlipidemia, unspecified; Z79.01 Long term (current) use of anticoagulants; Z79.899 Other long term (current) drug therapy
CPT/HCPCS: 82810; 85610; 93460; 99152; 99153; C1725; C1769; C1894; J1644; Q9967

== ENCOUNTER → 2020-04-04 09:48 | Outpatient (CLI) | payer MEDICARE, MEDICAID, SELFPAY ==
--- NOTE | 2020-04-04 09:51 | CT_ITS ---
PROCEDURE: CT ABDOMEN PELVIS WO/W CON CLINICAL INDICATION: HTN LUQ, EPIGASTRIC PAIN AND BURNING ? RENAL MASS, left upper quadrant pain and epigastric pain and burning. Evaluate for renal mass COMPARISON: No exams were available for comparison TECHNIQUE: IV Contrast: 75ML Isovue 370 Oral Contrast None Axial images obtained with sagittal and coronal reformats. All CT scans at the facility use one or more dose reduction, viz: automated exposure control, ma/kV adjustment per patient size (including targeted exams where dose is matched to indication, i.e. head), or iterative reconstruction technique. FINDINGS: LOWER THORAX: There is a noncalcified 4 mm nodule in the right lower lobe image 19 series 3 nonspecific. Calcified nodules are present in the left lower lobe. Coronary artery calcifications ABDOMEN & PELVIS: Prior cholecystectomy. The liver, spleen, and adrenal glands have an unremarkable appearance. There is a small hiatal hernia. There is a 10 mm I so density in the tail the pancreas best seen on image 36 series 3 and not as well delineated on the post enhanced images probably due to the slice orientation.. This is nonspecific. Follow-up is suggested to confirm stability. There are few small Jenniffer portal lymph nodes. No renal or ureteral calculi. No hydronephrosis. No renal mass apparent. No evidence appendicitis intestinal obstruction or free air. There is a mild amount of retained colonic feces. No evidence of diverticulitis. There is a small umbilical hernia containing fat. No acute bony anomaly. IMPRESSION: 1. No acute finding. No renal mass apparent. 2. Nonspecific 10 mm I so density of the pancreatic tail the. This is of questionable clinical significance possibly due to small cyst or even a peripancreatic lymph node. Consider 3 to six-month follow-up to confirm short term stability. 3. 4 mm right lower lobe nodule. Consider 6-12 month follow-up. 4. Small hiatal hernia Dictated by: Avery Henning MD 04/05/2020 12:19 Avery Henning MD in [place] 04/05/2020 12:19
[2020-04-04 10:33] LABS: Chloride 105 mmol/L (98-107)
[2020-04-04 10:34] LABS: Potassium 4.2 mmoL/L (3.5-5.1); Sodium 134 mmol/L (136-145)
[2020-04-04 10:37] LABS: Anion Gap 11.2 mEq/L (5-15); Blood Urea Nitrogen 23 mg/dl (7-17); Calcium 9.1 mg/dl (8.4-10.2); Carbon Dioxide 22 mmol/L (22.0-30.0); Estimated Glomerular Filt Rate 37 ml/min (>60); GFR (African American) 44 ML/MIN (>60); Glucose 114 mg/dl (74-100)
[2020-04-04 10:47] LABS: NT Pro Brain Natriuretic Pep. 177 pg/mL (0-450)
[2020-04-04 11:08] LABS: Thyroid Stimulating Hormone 4.06 uIU/mL (0.465-4.68)
[2020-04-04 11:28] LABS: Free T4 (Free Thyroxine) 1.04 ng/dl (0.78-2.19)
== END ==
PROVIDERS: Nurse Practitioner Family; PCP Nurse Practitioner Family; Visit Provider Internal Medicine
DX: I10 Essential (primary) hypertension (principal); I20.8 Other forms of angina pectoris; I50.30 Unspecified diastolic (congestive) heart failure; I89.0 Lymphedema, not elsewhere classified; R00.1 Bradycardia, unspecified; R06.02 Shortness of breath; R60.9 Edema, unspecified; R94.31 Abnormal electrocardiogram [ECG] [EKG]; I48.20 Chronic atrial fibrillation, unspecified; R60.0 Localized edema
CPT/HCPCS: 36415; 74178; 80048; 83880; 84439; 84443; Q9967

== ENCOUNTER → 2020-04-05 10:03 | Outpatient (CLI) | payer MEDICARE, MEDICAID, SELFPAY ==
--- NOTE | 2020-04-05 10:05 | CA_ITS ---
APPROVED REPORT Right Lower Extremity Venous Study for DVT. Terminal Manager: LORNE Indications Lower Extremity Pain: Right Lower Extremity Edema: Right Right lower ext edema/pain/discoloration, severe bruising, recent cath Vein Imaging CFV (R): compressive, spontaneous, phasic, augmentation SFJ (R): compressive, spontaneous, phasic, augmentation FEM (R): compressive, spontaneous, phasic, augmentation POP (R): compressive, spontaneous, phasic, augmentation DFV (R): compressive, spontaneous, phasic, augmentation PTV (R): compressive, spontaneous, phasic, augmentation GSV (R): compressive, spontaneous, phasic, augmentation SSV (R): compressive, spontaneous, phasic, augmentation Peroneals (R):compressive, spontaneous, phasic, augmentation GAS (R): compressive, spontaneous, phasic, augmentation Findings RLE negative for DVT/SVT. Vessels fully compressible. Conclusion RLE negative for DVT/SVT. Vessels fully compressible. Electronically signed by : Avery Henning MD 04/05/2020 16:13:29
== END ==
PROVIDERS: PCP Nurse Practitioner Family; Visit Provider Internal Medicine Cardiovascular Disease
DX: M79.604 Pain in right leg; R06.02 Shortness of breath; R60.0 Localized edema; L81.9 Disorder of pigmentation, unspecified; I27.20 Pulmonary hypertension, unspecified; I48.20 Chronic atrial fibrillation, unspecified; I50.32 Chronic diastolic (congestive) heart failure; I89.0 Lymphedema, not elsewhere classified; Y84.0 Cardiac catheterization as the cause of abnormal reaction of the patient, or of later complication, without mention of misadventure at the time of the procedure
CPT/HCPCS: 93971

== ENCOUNTER 2020-05-16 13:03 | Outpatient (CLI) | payer MEDICARE, OTHER, SELFPAY ==
[2020-05-16 13:55] LABS: PHA INR Fingerstick 2.8 (0.9-1.1)
== END 2020-05-16 13:56 | disposition home or self-care (01) ==
LOC: ACC 13:08
PROVIDERS: PCP Nurse Practitioner Family; Visit Provider Nurse Practitioner Family
DX: Z51.81 Encounter for therapeutic drug level monitoring (principal); Z79.01 Long term (current) use of anticoagulants
CPT/HCPCS: 85610; 99211; G0463

== ENCOUNTER 2020-07-05 14:27 | Outpatient (CLI) | payer MEDICARE, OTHER, SELFPAY ==
[2020-07-05 15:25] LABS: PHA INR Fingerstick 2.9 (0.9-1.1)
== END 2020-07-05 15:28 | disposition home or self-care (01) ==
LOC: ACC 14:29
PROVIDERS: PCP Nurse Practitioner Family; Visit Provider Nurse Practitioner Family
DX: Z51.81 Encounter for therapeutic drug level monitoring (principal); Z79.01 Long term (current) use of anticoagulants
CPT/HCPCS: 85610; 99211; G0463

== ENCOUNTER → 2020-07-24 07:48 | Outpatient (CLI) | payer MEDICARE, SELFPAY | PROVIDERS: PCP Nurse Practitioner Family; Visit Provider Internal Medicine Pulmonary Disease | DX: R06.00 Dyspnea, unspecified (principal) | CPT/HCPCS: 94060; 94618; 94726; 94729 ==

== ENCOUNTER 2020-07-24 14:00 | Outpatient (RCR) | payer MEDICARE, OTHER, SELFPAY ==
--- NOTE | 2020-01-15 16:34 | HMH.PTOPWND ---
Rehab Outpt Wound Evaluation Rehab OP Wound Evaluation Start: 01/15/20 16:21 Freq: Status: Active Protocol: Document 01/15/20 16:22 RUPERT (Rec: 01/15/20 16:34 RUPERT [id number]) Electronically Signed By Timmy Gomes, PT 01/15/20 16:22 Subjective/History History History Pt is 74 yowf who presents with increased edema in B LE x ~ 1 mo, R > L. She is well known to this clinic with hx of lymphedema due to leukemia (unknown if CML vs CLL). She reports a newer onset discoloration (purple discoloration throughout)of her R lower leg after a scratch from her dog. She has B LE tenderness to palpation in the gaitor area, but this is not new. She also has hx of A-fib and takes coumadin for anticoagulation. Subjective Subjective She reports no pain, only tenderness to palpation. She also reports general weakness with ambulation. Lymphedema Eval Classification of Lymphedema Secondary Lymphedema Yes Stemmer's sign Stemmer's Sign yes Stage of Lymphedema Lymphedema stages Stage II (Pitting edema, increased fibrosis w/ decreased pitting) Skin Changes Dry Skin Yes Skin Folds Yes Redness Yes Discoloration of Skin Yes Other Changes Yes Pain Scale Pain Scale (0-10) 0 Chemo Therapy Has received chemo therapy yes Affected Extremities Areas Affected by Lymphedema/Edema Right Upper Extremity,Left Upper Extremity,Abdomen,Right Lower Extremity,Left Lower Extremity Manual Lymphatic Drainage Treatment Area MLD Treatment Area Right Upper Extremity,Left Upper Extremity,Abdomen,Right Lower Extremity,Left Lower Extremity Wound Problems/Impairments Impairments Problems/Impairmments Palpation Tenderness,Impaired Endurance,Impaired Walking, Impaired Standing,Impaired Recreational Activities, Increased Edema,Lymphedema
--- NOTE | 2020-02-13 16:12 | HMH.RHREAS ---
Rehab Reassessment Rehab OP Re-assessment Start: 02/13/20 16:09 Freq: Status: Active Protocol: Document 02/13/20 16:10 RUPERT (Rec: 02/13/20 16:12 RUPERT [id number]) Electronically Signed By Timmy Gomes, PT 02/13/20 16:10 Rehab Re-assessment Subjective Subjective Pt reports less tenderness in B LE, but some remain in the R LE. Objective Objective Notes B LE with 2+ pitting edema remainaing in the lower legs. R LE remains somewhat stained purple. Assessment Progress Assessment Progressing as Expected Assessment Notes Improving edema overall, but some pitting remains. Less edema in B feet noted. Patient goals met ST,2,3,4 Goals Not Met LT,2,3,4,5,6 Revised Goals none Plan Plan Continue per initial POC. Frequency of Therapy 2 x/wk Duration of therapy 8 wks Time and Billing Re-Eval Time 15 Re-Eval Billing Units 1 PHYSICIAN CERTIFICATION: I certify the specified therapy services for Shea Iverson are required, authorized, and reviewed every 30 days.
--- NOTE | 2020-04-23 15:50 | HMH.RHREAS ---
Rehab Reassessment Rehab OP Re-assessment Start: 02/13/20 16:09 Freq: Status: Active Protocol: Document 04/23/20 15:46 RUPERT (Rec: 04/23/20 15:50 PHOFREEMAN [id number]) Electronically Signed By Timmy Gomes, PT 04/23/20 15:46 Rehab Re-assessment Subjective Subjective Pt reports she continues to have increased dark, purple color in her R LE and it is worse with dependent positioning. Objective Objective Notes LE edema: 3+ pitting edema in B lower legs. No c/o pain at rest, but 2/4 tenderness to palpation in B lower legs. Assessment Progress Assessment Progressing as Expected Assessment Notes Pt has shown improvement in pain and tenderness, but edema remains increased. Diet and activity level are likely related to continued increased edema. Patient goals met ST,2,3,4 Goals Not Met LT,2,3,4,5,6 Revised Goals none Plan Plan Continue per initial POC. Frequency of Therapy 2 x/wk Duration of therapy 8 wks Time and Billing Re-Eval Time 15 Re-Eval Billing Units 1 PHYSICIAN CERTIFICATION: I certify the specified therapy services for Shea Iverson are required, authorized, and reviewed every 30 days.
--- NOTE | 2020-05-21 16:04 | HMH.RHREAS ---
Rehab Reassessment Rehab OP Re-assessment Start: 02/13/20 16:09 Freq: Status: Active Protocol: Document 05/21/20 15:57 RUPERT (Rec: 05/21/20 16:04 RUPERT [id number]) Electronically Signed By Timmy Gomes, PT 05/21/20 15:57 Rehab Re-assessment Subjective Subjective Pt reports, My left leg is getting bad again and I just don't know why. She also states, My executive personal assistant wants me to take Lasix and drink less water, but my oncologist says I have to drink a lot more water. Objective Objective Notes Circumferential measurements: R LE 289.3 cm which is +9.3 cm since last reassessment. L LE 267.1 cm which is +5.7 cm since last reassessment. Assessment Progress Assessment Progressing as Expected Assessment Notes Continues to have increased edema in B LE, less palpation tenderness noted. Possibly slight decrease in R LE discoloration. Patient goals met ST,2,3,4 Goals Not Met LT,2,3,4,5,6 Revised Goals none Plan Plan Continue per initial POC. Frequency of Therapy 2 x/wk Duration of therapy 8 wks Time and Billing Re-Eval Time 15 Re-Eval Billing Units 1 PHYSICIAN CERTIFICATION: I certify the specified therapy services for Shea Iverson are required, authorized, and reviewed every 30 days.
--- NOTE | 2020-06-26 16:03 | HMH.RHREAS ---
Rehab Reassessment Rehab OP Re-assessment Start: 02/13/20 16:09 Freq: Status: Active Protocol: Document 06/26/20 15:58 RUPERT (Rec: 06/26/20 16:03 RUPERT [id number]) Electronically Signed By Timmy Gomes, PT 06/26/20 15:58 Rehab Re-assessment Subjective Subjective Pt reports she feels pretty bad today. Continues to have multiple bruises on B UE and discoloration of B LE. Objective Objective Notes 2+ pitting edema remains on B lower legs with 1/4 tenderness to palpation. Assessment Progress Assessment Progressing as Expected Assessment Notes Pt with some improvements show in edema, endurance to activity remains low. She reports issues with pain in her anterior thighs which could be related to medication . Patient goals met ST,2,3,4 Goals Not Met LT,2,3,4,5,6 Revised Goals none Plan Plan Continue per initial POC. Frequency of Therapy 2 x/wk Duration of therapy 8 wks Time and Billing Re-Eval Time 15 Re-Eval Billing Units 1 PHYSICIAN CERTIFICATION: I certify the specified therapy services for Shea Iverson are required, authorized, and reviewed every 30 days.
== END 2020-07-24 14:05 | disposition home or self-care (01) ==
LOC: PT 14:00
PROVIDERS: PCP Internal Medicine Adolescent Medicine; Visit Provider Internal Medicine Adolescent Medicine
DX: I89.0 Lymphedema, not elsewhere classified (principal)
CPT/HCPCS: 97110; 97112; 97140; 97162; 97164; 97530; 97760

== ENCOUNTER 2020-08-19 14:20 | Outpatient (CLI) | payer MEDICARE, SELFPAY ==
[2020-08-19 15:13] LABS: PHA INR Fingerstick 2.8 (0.9-1.1)
== END 2020-08-19 15:14 | disposition home or self-care (01) ==
PROVIDERS: PCP Nurse Practitioner Family; Visit Provider Nurse Practitioner Family
DX: Z51.81 Encounter for therapeutic drug level monitoring (principal); Z79.01 Long term (current) use of anticoagulants
CPT/HCPCS: 85610; 99211; G0463

== ENCOUNTER → 2020-10-08 15:02 | Outpatient (CLI) | payer MEDICARE, SELFPAY ==
--- NOTE | 2020-10-08 15:08 | XR_ITS ---
PROCEDURE: XR LUMBAR SPINE MIN 4V CLINICAL INDICATION: LOW BACK PAIN COMPARISON: CT CT ABDOMEN PELVIS WO/W CON from 04/04/2020 FINDINGS: Minimal lumbar curvature convex left. There is degenerative disc disease at L2-L3. There is mild retrolisthesis of L3 on L4-2 to 3 mm and mild anterolisthesis of L4 on L5 of 2-3 mm. Diffuse vascular calcification is noted. Facet arthritic changes are present at L4-L5 and S1. Other findings:None. IMPRESSION: Degenerative change, no acute finding Dictated by: Avery Henning MD 10/08/2020 16:01 Avery Henning MD in [place] 10/08/2020 16:01
== END ==
PROVIDERS: PCP Nurse Practitioner Family; Visit Provider Nurse Practitioner Family
DX: M54.5 Low back pain (principal)
CPT/HCPCS: 72110

== ENCOUNTER 2020-10-14 14:29 | Outpatient (CLI) | payer MEDICARE, SELFPAY ==
[2020-10-14 15:37] LABS: PHA INR Fingerstick 2.8 (0.9-1.1)
== END 2020-10-14 15:55 | disposition home or self-care (01) ==
LOC: ACC 14:30
PROVIDERS: PCP Nurse Practitioner Family; Visit Provider Nurse Practitioner Family
DX: Z51.81 Encounter for therapeutic drug level monitoring (principal); Z79.01 Long term (current) use of anticoagulants
CPT/HCPCS: 85610; 99211; G0463

== ENCOUNTER → 2020-10-18 10:26 | Outpatient (CLI) | payer MEDICARE, SELFPAY ==
[2020-10-18 10:30] LABS: Microscopic, Urine URINE MICROSCOPIC (MICROSCOPIC)
[2020-10-18 10:51] LABS: Appearance,Urine CLEAR (Clear); Bilirubin,Urine Negative (Negative); Blood, Urine 3+ (Negative); Color,Urine YELLOW (Yellow); Glucose,Urine (UA) Negative (Negative); Ketones,Urine Negative (Negative); Leukocyte Esterase,Urine 3+ (Negative); Nitrate,Urine Negative (Negative); Protein,Urine 1+ (Negative); Urobilinogen,Urine 0.2 EU/dl (0.2)
[2020-10-18 11:00] LABS: Bacteria,Urine 1+ /lpf; WBC,Urine 20-50 #/hpf (0-3)
== END ==
PROVIDERS: Visit Provider Nurse Practitioner Family
DX: N39.41 Urge incontinence (principal)
CPT/HCPCS: 81001; 87086; 87088; 87186

== ENCOUNTER 2020-10-25 21:39 | Emergency (ER) | payer MEDICARE, SELFPAY ==
[2020-10-25 21:37] VITALS: BP 169/89; PULSE 59; RESP 19; TEMP 36.5; O2SAT 96; BMI 38.7
--- NOTE | 2020-10-25 21:44 | XR_ITS ---
PROCEDURE INFORMATION: Exam: XR Left Knee Exam date and time: 10/25/2020 9:44 PM Age: 75 years old Clinical indication: Injury or trauma; Blunt trauma; Left; Prior surgery; Surgery date: 6+ months; Patient HX: Fall, HX knee replacement years ago, swelling, bruising and lac to knee, pain TECHNIQUE: Imaging protocol: XR Left knee. Views: 3 views. COMPARISON: US Lower Arterial 10/21/2018 9:58 AM FINDINGS: Bones/joints: There has been a total knee arthroplasty which appears intact. Alignment is anatomic. No acute fractures. Soft tissues: There is moderate soft tissue swelling just below the patella. IMPRESSION: No acute bony injury.
--- NOTE | 2020-10-25 21:44 | XR_ITS ---
PROCEDURE INFORMATION: Exam: XR Pelvis Exam date and time: 10/25/2020 9:44 PM Age: 75 years old Clinical indication: Injury or trauma; Fall; Blunt trauma (contusions or hematomas); Bilateral; Pelvic region TECHNIQUE: Imaging protocol: XR pelvis. Views: 1 or 2 view. COMPARISON: CT ABDOMEN PELVIS WO/W CON 04/04/2020 11:22 AM FINDINGS: Bones/joints: Unremarkable. No acute fracture. Soft tissues: Unremarkable. IMPRESSION: No acute findings.
--- NOTE | 2020-10-25 21:44 | XR_ITS ---
PROCEDURE INFORMATION: Exam: XR Chest Exam date and time: 10/25/2020 9:44 PM Age: 75 years old Clinical indication: Injury or trauma; Blunt trauma (contusions or hematomas); Patient HX: Fall, no chest symptoms TECHNIQUE: Imaging protocol: XR of the chest. Views: 1 view. COMPARISON: DX CXR2V XR chest 2V 12/31/2017 1:55 PM FINDINGS: Lungs: Unremarkable. No consolidation. Pleural spaces: Unremarkable. No pleural effusion. No pneumothorax. Heart/Mediastinum: Unremarkable. No cardiomegaly. Bones/joints: Unremarkable. IMPRESSION: No acute findings.
--- NOTE | 2020-10-25 21:52 | CT_ITS ---
PROCEDURE INFORMATION: Exam: CT Cervical Spine Without Contrast Exam date and time: 10/25/2020 9:52 PM Age: 75 years old Clinical indication: Injury or trauma; Fall; Blunt trauma TECHNIQUE: Imaging protocol: Computed tomography images of the cervical spine without contrast. Radiation optimization: All CT scans at this facility use at least one of these dose optimization techniques: automated exposure control; mA and/or kV adjustment per patient size (includes targeted exams where dose is matched to clinical indication); or iterative reconstruction. COMPARISON: PT PET CT Skull Base to Midthigh 07/19/2020 11:39 AM FINDINGS: Bones/joints: Nonspecific straightening. Trace anterolisthesis of C4 on C5. Vertebral body heights are preserved. [id number]-[id number] degenerative change about the dens. Mild prevertebral osteophytosis. There are bilateral facet joint degenerative changes. No acute cervical spine fracture. Discs/Spinal canal/Neural foramina: No definite significant central canal stenosis within limitations of technique. Multilevel cervical foraminal stenoses. Lungs: Lung apices are normal. Pleural spaces: No visible pneumothorax. Vasculature: Vascular calcification. Soft tissues: Unremarkable. IMPRESSION: No acute cervical spine fracture.
--- NOTE | 2020-10-25 21:52 | CT_ITS ---
PROCEDURE INFORMATION: Exam: CT Head Without Contrast Exam date and time: 10/25/2020 9:52 PM Age: 75 years old Clinical indication: Injury or trauma; Laceration; Consciousness not specified; Without residual foreign body; Scalp; Patient HX: Fall, lac to top of head on right side TECHNIQUE: Imaging protocol: Computed tomography of the head without contrast. Radiation optimization: All CT scans at this facility use at least one of these dose optimization techniques: automated exposure control; mA and/or kV adjustment per patient size (includes targeted exams where dose is matched to clinical indication); or iterative reconstruction. COMPARISON: [facility] CT HEAD W/O CONTRAST 11/30/2013 8:14 PM FINDINGS: Brain: Age-related volume loss. Decreased attenuation of the supratentorial white matter is likely secondary to chronic microvascular ischemia. No acute intracranial hemorrhage, midline shift or intracranial mass effect. Cerebral ventricles: No hydrocephalus. Paranasal sinuses: Visualized sinuses are unremarkable. No fluid levels. Mastoid air cells: Visualized mastoid air cells are well aerated. Bones/joints: Unremarkable. No acute fracture. Soft tissues: Left frontal scalp probable sebaceous cyst measures 1 cm. High right frontal scalp soft tissue injury. IMPRESSION: No acute intracranial abnormality.
[2020-10-25 22:02] VITALS: BP 142/66; PULSE 57; O2SAT 92
[2020-10-25 23:36] VITALS: BP 133/60; PULSE 55; O2SAT 93
[2020-10-26] VITALS: BP 120/68; PULSE 56; O2SAT 95
--- NOTE | 2020-10-26 00:36 | HMH.EDFALL ---
ED Disposition Clinical Impression: Concussion with no loss of consciousness Qualifiers: Encounter type: initial encounter Qualified Code(s): S06.0X0A - Concussion without loss of consciousness, initial encounter Contusion of knee, left Qualifiers: Encounter type: initial encounter Qualified Code(s): S80.02XA - Contusion of left knee, initial encounter Scalp laceration Qualifiers: Encounter type: initial encounter Qualified Code(s): S01.01XA - Laceration without foreign body of scalp, initial encounter Fall Qualifiers: Encounter type: initial encounter Qualified Code(s): W19.XXXA - Unspecified fall, initial encounter Disposition: Home, Self-Care Condition on Discharge: Good Instructions: DI for Concussion Additional Instructions: sutures out 10 days and recheck as needed Referrals: Victorina Estrada APRN [Primary Care Provider] - - Critical Care Critical Care Time: No Attestation: On 10/25/20, the high probability of a clinically significant, sudden or life threatening deterioration of the following system(s) required my full and direct attention, intervention and personal management. The time I documented below is in addition to time spent performing reported procedures but includes the following listed in this critical care notation. Medical Decision Making - Medical Records Medical records reviewed: Yes: I reviewed the patient's medical records. - Maximus Inquiry Pt receiving controlled substance: No Vital Signs: 10/25/20 21:37 Temperature 97.7 F Temperature Source Oral Pulse Rate [Right] 59 L Respiratory Rate 19 Blood Pressure [Right Arm] 169/89 H Blood Pressure Mean [Right Arm] 115 Blood Pressure Source [Right Arm] Automatic Cuff 02 Sat by Pulse Oximetry 96 Oxygen Delivery Method Room Air - Lab Data Lab results reviewed: Yes: I reviewed the patient's lab results. Lab Results 10/26/20 00:50: PT 23.6 H, INR 2.11 H 10/26/20 00:50: WBC 7.9, RBC 3.77 L, Hgb 11.3 L, Hct 33.5 L, MCV 88.8, MCH 29.8, MCHC 33.6, RDW 14.5, Plt Count 116 L, MPV 9.2, Neut % (Auto) 51.5, Lymph % (Auto) 40.1, Fleming % (Auto) 6.6, Eos % (Auto) 1.1, Baso % (Auto) 0.8, Neut # (Auto) 4.1, Lymph # (Auto) 3.2, Fleming # (Auto) 0.5, Eos # (Auto) 0.1, Baso # (Auto) 0.1 10/26/20 00:50: Sodium 131 L, Potassium 4.5, Chloride 100, Carbon Dioxide 23, Anion Gap 12.5, BUN 25 H, Creatinine 1.50 H, Estimated Creat Clear 54, Estimated GFR 34 L, Est GFR ( Amer) 41 L, Glucose 98, Calcium 8.7, Total Bilirubin 0.4, AST 22, ALT 12, Alkaline Phosphatase 73, Total Protein 6.7, Albumin 4.0, Globulin 2.7, Albumin/Globulin Ratio 1.5 Result diagrams: 10/26/20 00:50 10/26/20 00:50 - Radiology Data #1 Image(s): Chest, Pelvis, Knee Image Reviewed: Yes I have reviewed radiologist's interpretation Preliminary Findings: No Fracture Seen - CT Data CT Scan: Head, C-Spine Time Received: 01:[address] Reviewed: Yes: I have viewed the radiologist's interpretation Preliminary Findings: No Fracture Seen Medical Decision Narrative: trip type fall and scalp lac with stable bp and neuro exam - stable labs and xrays Fall HPI - General Chief Complaint: Fall Stated Complaint: Fall, no LOC Time Seen by Provider: 10/25/20 22:30 Mode of Arrival: EMS Source of Information: Patient, EMS, Medical Record Limitations: No Limitations Description of Symptoms (Recalled from ER Triage Doc. by RN): Pt fell onto her concrete patio, while attempting to water burger this evening. She has a laceration to the right side of head, skin tear/bruising/pain to left knee, skin tear to left great toe. Pt reports she was wear velcro flip flops and thinks she caught myself up in the shoes . Pt denies any LOC, dizziness, or SOA. Pt reports no neck, hip, or back pain. Pt does have a h/o afib and take warfarin. - History of Present Illness HPI Narrative: trip injury and fall with head injury with scalp lac - no hip pain - no loc - has lt knee swelling MD complaint:
[2020-10-26 01:02] LABS: Basophils # 0.1 K/mm3 (0-0.2); Basophils % 0.8 % (0.1-2.0); Eosinophils # 0.1 K/mm3 (0.0-0.4); Eosinophils % 1.1 % (0.1-12.0); Hematocrit 33.5 % (37.0-47.0); Hemoglobin 11.3 g/dL (12.2-16.2); Lymphocytes # 3.2 K/mm3 (0.7-4.5); Lymphocytes % 40.1 % (10-50); Mean Corpuscular HGB Conc 33.6 g/dL (31.8-35.4); Mean Corpuscular Hemoglobin 29.8 pg (27.0-31.2); Mean Corpuscular Volume 88.8 fl (81-99); Mean Platelet Volume 9.2 fl (7.4-10.4); Monocytes # 0.5 K/mm3 (0.1-1.0); Monocytes % 6.6 % (1.7-9.3); Neutrophils # 4.1 K/mm3 (1.8-7.8); Neutrophils % 51.5 % (37.0-80.0); Platelet Count 116 K/mm3 (142-424); Red Blood Count 3.77 M/mm3 (4.20-5.40); Red Cell Distribution Width 14.5 % (11.5-17.5); White Blood Count 7.9 K/mm3 (4.8-10.8)
[2020-10-26 01:06] LABS: Chloride 100 mmol/L (98-107); Potassium 4.5 mmoL/L (3.5-5.1); Sodium 131 mmol/L (136-145)
[2020-10-26 01:09] LABS: Alanine Aminotransferase 12 U/L (12-78); Albumin/Globulin Ratio 1.5 (1.1-1.8); Alkaline Phosphatase 73 U/L (38-126); Anion Gap 12.5 mEq/L (5-15); Aspartate Amino Transferase 22 U/L (14-36); Bilirubin,Total 0.4 mg/dl (0.2-1.3); Blood Urea Nitrogen 25 mg/dl (7-17); Carbon Dioxide 23 mmol/L (22.0-30.0); Creatinine Clearance Estimated 54 mL/min (50-200); Estimated Glomerular Filt Rate 34 ml/min (>60); GFR (African American) 41 ML/MIN (>60); Globulin 2.7 g/dL (1.3-3.2); Total Protein,Serum 6.7 g/dl (6.3-8.2)
[2020-10-26 01:10] LABS: Calcium 8.7 mg/dl (8.4-10.2); Glucose 98 mg/dl (74-100); Prothrombin Time 23.6 seconds (10.1-12.5)
[2020-10-26 01:13] LABS: INR 2.11 (0.9-1.1)
[2020-10-26 01:36] VITALS: BP 116/66; PULSE 60; RESP 18; TEMP 36.7; O2SAT 96
== END 2020-10-26 01:42 | disposition home or self-care (01) ==
PROVIDERS: Emergency Provider Emergency Medicine; PCP Nurse Practitioner Family
DX: S06.0X0A Concussion without loss of consciousness, initial encounter (principal); S01.01XA Laceration without foreign body of scalp, initial encounter; S80.02XA Contusion of left knee, initial encounter; W01.198A Fall on same level from slipping, tripping and stumbling with subsequent striking against other object, initial encounter; Y92.018 Other place in single-family (private) house as the place of occurrence of the external cause; I48.20 Chronic atrial fibrillation, unspecified; I10 Essential (primary) hypertension; F41.8 Other specified anxiety disorders; E78.5 Hyperlipidemia, unspecified; Z87.891 Personal history of nicotine dependence
CPT/HCPCS: 12001; 70450; 71045; 72125; 72170; 73562; 80053; 85025; 85610; 99282; 99283

== ENCOUNTER → 2020-11-06 12:19 | Outpatient (CLI) | payer MEDICARE, SELFPAY ==
[2020-11-06 12:22] LABS: Microscopic, Urine URINE MICROSCOPIC (MICROSCOPIC)
[2020-11-06 13:15] LABS: Appearance,Urine SL CLOUDY (Clear); Bilirubin,Urine Negative (Negative); Blood, Urine 2+ (Negative); Color,Urine YELLOW (Yellow); Glucose,Urine (UA) Negative (Negative); Ketones,Urine Negative (Negative); Leukocyte Esterase,Urine 3+ (Negative); Nitrate,Urine Negative (Negative); PH,Urine 5.5 (5.0-8.5); Protein,Urine Negative (Negative); Urobilinogen,Urine 0.2 EU/dl (0.2)
[2020-11-06 13:33] LABS: Bacteria,Urine 1+ /lpf
== END ==
PROVIDERS: Visit Provider Nurse Practitioner Family
DX: N39.41 Urge incontinence (principal)
CPT/HCPCS: 81001; 87086; 87088; 87186

== ENCOUNTER → 2020-11-19 15:23 | Outpatient (CLI) | payer MEDICARE, SELFPAY ==
--- NOTE | 2020-11-19 15:23 | CT_ITS ---
PROCEDURE: CT CHEST WO CON CLINICAL INDICATION: follow up Lung nodule SOA Takes chemo pill No prior COMPARISON: CT,PT PET CT Skull Base to Midthigh from 07/19/2020 TECHNIQUE: Axial images obtained with sagittal and coronal reformats. All CT scans at the facility use one or more dose reduction, viz: automated exposure control, ma/kV adjustment per patient size (including targeted exams where dose is matched to indication, i.e. head), or iterative reconstruction technique. Report is delayed waiting on outside images for comparison. The complete PET CT requested previously is not available for review at this time. The report will go ahead and be generated due to the delay in outside film retrieval. FINDINGS: HEART AND MEDIASTINAL STRUCTURES: No mediastinal or hilar adenopathy. Mild cardiomegaly. Coronary artery calcifications. Small hiatal hernia. LUNGS AND PLEURAL SPACES: COPD changes with mild prominence of the interstitium. 2.2 x 1.4 cm area of consolidation in the right upper lobe posteriorly. There is some mild prominence of the interstitium and scattered ground-glass opacities. No pleural effusion. Calcified granuloma is present in the left lower lobe. Subpleural reticulation noted in upper and lower lobes. Subpleural nodular opacity is present in the left upper lobe anteriorly at 6 mm. 4 mm nodules present in the right lower lobe posteriorly noncalcified. BONY STRUCTURES: No acute bony abnormalities apparent. UPPER ABDOMEN: Unremarkable. ADDITIONAL FINDINGS: No other significant abnormalities. IMPRESSION: 1. COPD with interstitial lung disease. There is scattered areas of ground-glass opacity in the upper lower lobes which may be part of the interstitial lung disease spectrum. UIP is a consideration. 2. 2.2 by 1.4 cm area of consolidation in the right upper lobe. This may be related to an area of pneumonia. Neoplasm not excluded. Please correlate with old exams. 6 mm left upper lobe and 4 mm right lower lobe nodules nonspecific may be inflammatory/infectious or neoplastic. Dictated by: Avery Henning MD 11/28/2020 10:31 Avery Henning MD in [place] 11/28/2020 10:31
== END ==
PROVIDERS: PCP Nurse Practitioner Family; Visit Provider Internal Medicine Pulmonary Disease
DX: R91.8 Other nonspecific abnormal finding of lung field (principal)
CPT/HCPCS: 71250

== ENCOUNTER → 2020-11-22 14:19 | Outpatient (CLI) | payer MEDICARE, SELFPAY | PROVIDERS: Visit Provider Nurse Practitioner Family | DX: N39.41 Urge incontinence (principal) | CPT/HCPCS: 87086; 87088; 87186 ==

== ENCOUNTER 2021-01-13 14:57 | Outpatient (CLI) | payer MEDICARE, SELFPAY ==
[2021-01-13 16:11] LABS: PHA INR Fingerstick 1.9 (0.9-1.1)
== END 2021-01-13 16:12 | disposition home or self-care (01) ==
PROVIDERS: PCP Nurse Practitioner Family; Visit Provider Nurse Practitioner Family
DX: Z51.81 Encounter for therapeutic drug level monitoring (principal); Z79.01 Long term (current) use of anticoagulants
CPT/HCPCS: 85610; 99211; G0463

== ENCOUNTER → 2021-01-16 10:48 | Outpatient (CLI) | payer MEDICARE, SELFPAY ==
--- NOTE | 2021-01-16 11:06 | XR_ITS ---
PROCEDURE: XR CHEST 2V CLINICAL HISTORY: DYSPNEA ON EXERTION COMPARISON: CR [id number] XR ribs RT min 3V w CXR1V from 05/31/2017 DX CXR2V XR chest 2V from 12/31/2017 CR XR CHEST PORTABLE from 10/25/[address] CHEST WO CON from 11/19/2020 FINDINGS: Mild cardiomegaly without failure. No obvious mediastinal or hilar mass. The lungs are clear without infiltrates, suspicious nodules, or pleural effusions. Mild degenerative changes thoracic spine with mild thoracic kyphosis IMPRESSION: No acute findings. Dictated by: Avery Henning MD 01/16/2021 11:54 Avery Henning MD in [place] 01/16/2021 11:54
[2021-01-16 11:37] LABS: Basophils % 0.6 % (0.1-2.0); Eosinophils # 0.1 K/mm3 (0.0-0.4); Eosinophils % 2.7 % (0.1-12.0); Hematocrit 34.9 % (37.0-47.0); Lymphocytes % 36.9 % (10-50); Mean Corpuscular HGB Conc 31.5 g/dL (31.8-35.4); Mean Corpuscular Hemoglobin 29.1 pg (27.0-31.2); Mean Corpuscular Volume 92.3 fl (81-99); Monocytes # 0.4 K/mm3 (0.1-1.0); Monocytes % 6.7 % (1.7-9.3); Neutrophils # 2.8 K/mm3 (1.8-7.8); Neutrophils % 53.1 % (37.0-80.0); Platelet Count 128 K/mm3 (142-424); Red Blood Count 3.79 M/mm3 (4.20-5.40); Red Cell Distribution Width 14.6 % (11.5-17.5); White Blood Count 5.3 K/mm3 (4.8-10.8)
[2021-01-16 11:53] LABS: INR 1.98 (0.9-1.1); Prothrombin Time 21.3 seconds (10.1-12.5)
[2021-01-16 12:05] LABS: Chloride 98 mmol/L (98-107); Potassium 5.2 mmoL/L (3.5-5.1); Sodium 129 mmol/L (136-145)
[2021-01-16 12:07] LABS: Blood Urea Nitrogen 21 mg/dl (7-17); Estimated Glomerular Filt Rate 36 ml/min (>60); GFR (African American) 44 ML/MIN (>60)
[2021-01-16 12:08] LABS: Alanine Aminotransferase 11 U/L (12-78); Albumin Level 3.8 g/dl (3.5-5.0); Albumin/Globulin Ratio 1.7 (1.1-1.8); Alkaline Phosphatase 60 U/L (38-126); Anion Gap 11.2 mEq/L (5-15); Aspartate Amino Transferase 19 U/L (14-36); Bilirubin,Total 0.2 mg/dl (0.2-1.3); Calcium 8.9 mg/dl (8.4-10.2); Carbon Dioxide 25 mmol/L (22.0-30.0); Globulin 2.3 g/dL (1.3-3.2); Glucose 112 mg/dl (74-100); Total Protein,Serum 6.1 g/dl (6.3-8.2)
[2021-01-16 12:16] LABS: NT Pro Brain Natriuretic Pep. 110 pg/mL (0-450)
== END ==
PROVIDERS: Visit Provider Nurse Practitioner Family
DX: R06.09 Other forms of dyspnea (principal); I48.91 Unspecified atrial fibrillation; Z51.81 Encounter for therapeutic drug level monitoring; Z79.01 Long term (current) use of anticoagulants
CPT/HCPCS: 36415; 71046; 80053; 83880; 85025; 85610

== ENCOUNTER → 2021-02-07 10:58 | Outpatient (CLI) | payer MEDICARE, SELFPAY ==
--- NOTE | 2021-02-07 11:00 | MM_ITS ---
PROCEDURE: MM DIG SCREENING MAMM BI W/CAD Digital Breast Tomosynthesis Included CLINICAL INDICATION: SCREENING There is no personal or family history of breast cancer. COMPARISON: MG DXRT MM Dig mamm DX unilat RT CAD from 05/02/2018 MG MM DIG SCREENING MAMM BI W/CAD from 11/15/2018 MG MM DIG SCREENING MAMM BI W/CAD from 11/21/2019 TECHNIQUE: Standard CC and MLO images and 3D Tomosynthesis was obtained. R2 CAD reviewed. FINDINGS: Moderate scattered fibroglandular densities are seen throughout both breast again with slightly asymmetric increased glandular elements upper-outer quadrant right breast. There are scattered benign-appearing microcalcifications in each breast. There is a stable small asymmetric nodular benign-appearing density upper-outer quadrant right breast. There is no suspicious lesion and no suspicious microcalcifications. IMPRESSION: Fibrofatty parenchyma with no suspicious lesions seen BI-RAD Category: 2 Benign Finding(s) FOLLOW-UP: 1YR 1 Year Follow-up (A letter has been sent to the patient regarding results of the study.) Dictated by: Dr. Juve Barnard MD 02/12/2021 10:03 Dr. Juve Barnard MD in [place] 02/12/2021 10:03
== END ==
PROVIDERS: PCP Nurse Practitioner Family; Visit Provider Nurse Practitioner Family
DX: Z12.31 Encounter for screening mammogram for malignant neoplasm of breast (principal)
CPT/HCPCS: 77063; 77067

== ENCOUNTER 2021-02-10 13:56 | Outpatient (CLI) | payer MEDICARE, SELFPAY ==
[2021-02-10 15:52] LABS: PHA INR Fingerstick 2.7 (0.9-1.1)
== END 2021-02-10 15:56 | disposition home or self-care (01) ==
LOC: ACC 13:57
PROVIDERS: PCP Nurse Practitioner Family; Visit Provider Nurse Practitioner Family
DX: Z51.81 Encounter for therapeutic drug level monitoring (principal); Z79.01 Long term (current) use of anticoagulants
CPT/HCPCS: 85610; 99211; G0463

== ENCOUNTER → 2021-03-07 11:32 | Outpatient (CLI) | payer MEDICARE, SELFPAY ==
[2021-03-07 22:46] LABS: Chloride 98 mmol/L (98-107); Potassium 4.5 mmoL/L (3.5-5.1); Sodium 131 mmol/L (136-145)
[2021-03-07 22:49] LABS: Blood Urea Nitrogen 28 mg/dl (7-17); Calcium 8.6 mg/dl (8.4-10.2); Carbon Dioxide 25 mmol/L (22.0-30.0); Estimated Glomerular Filt Rate 29 ml/min (>60); GFR (African American) 35 ML/MIN (>60); Glucose 106 mg/dl (74-100)
[2021-03-07 22:53] LABS: Anion Gap 12.5 mEq/L (5-15)
== END ==
PROVIDERS: Visit Provider Internal Medicine Cardiovascular Disease
DX: I11.0 Hypertensive heart disease with heart failure; I27.20 Pulmonary hypertension, unspecified; I50.32 Chronic diastolic (congestive) heart failure; R94.31 Abnormal electrocardiogram [ECG] [EKG]
CPT/HCPCS: 36415; 80048

== ENCOUNTER 2021-04-15 13:49 | Outpatient (CLI) | payer MEDICARE, SELFPAY ==
[2021-04-15 15:08] LABS: PHA INR Fingerstick 3.2 (0.9-1.1)
== END 2021-04-15 15:13 | disposition home or self-care (01) ==
PROVIDERS: PCP Nurse Practitioner Family; Visit Provider Nurse Practitioner Family
DX: Z51.81 Encounter for therapeutic drug level monitoring (principal); Z79.01 Long term (current) use of anticoagulants
CPT/HCPCS: 85610; 99211; G0463

== ENCOUNTER 2021-04-16 13:00 | Outpatient (RCR) | payer MEDICARE, SELFPAY ==
--- NOTE | 2020-12-19 15:11 | HMH.PTOPWND ---
Rehab Outpt Wound Evaluation Rehab OP Wound Evaluation Start: 12/19/20 14:30 Freq: Status: Active Protocol: Document 12/19/20 14:55 RUPERT (Rec: 12/19/20 15:10 PHORRUDOLPH [id number]) Electronically Signed By Timmy Gomes, PT 12/19/20 14:55 Subjective/History History History Pt is 75 yowf who presents with c/o B LE edema for several years, R > L. She reports no c/o pain or numbness in B LE at this time, but does have some tenderness to palpation. She reports a fall at home ~ 1-2 mos ago with resulting L knee hematoma and scalp lac requiring sutures. She presents today with 2+ pitting edema to B lower legs, with some mild fibrotic edema B. Lymphedema Eval Classification of Lymphedema Secondary Lymphedema Yes Stemmer's sign Stemmer's Sign yes Stage of Lymphedema Lymphedema stages Stage II (Pitting edema, increased fibrosis w/ decreased pitting) Skin Changes Dry Skin Yes Brittle Uneven Nails Yes Discoloration of Skin Yes Other Changes Yes Chemo Therapy Has received chemo therapy yes Affected Extremities Areas Affected by Lymphedema/Edema Right Lower Extremity,Left Lower Extremity Manual Lymphatic Drainage Treatment Area MLD Treatment Area Right Lower Extremity,Left Lower Extremity Wound Problems/Impairments Impairments Problems/Impairmments Palpation Tenderness,Impaired Strength,Impaired Endurance, Impaired Walking,Impaired Standing,Impaired Household Care,Impaired Recreational Activities,Increased Edema, Lymphedema Present,Subjective C/O Pain,Impaired Self Care/ Self Management Prognosis Rehab Potential Good Clinical Impression Consistent with Diagnosis Yes Short Term Goals Number of Weeks 4 Decrease Edema Yes Patient to Understand Lymphedema Yes Treatment and Exercises Decrease Girth Measurments by (cm) Yes: by 10 cm Rate Clerk Passenger Goals Number of Weeks 8 Decreased Palpation Tenderness Yes Decrease Lymphedema Yes
--- NOTE | 2021-01-22 15:12 | HMH.RHREAS ---
Rehab Reassessment Rehab OP Re-assessment Start: 01/22/21 15:08 Freq: Status: Active Protocol: Document 01/22/21 15:08 RUPERT (Rec: 01/22/21 15:11 RUPERT [id number]) Electronically Signed By Timmy Gomes, PT 01/22/21 15:08 Rehab Re-assessment Subjective Subjective Pt reports she, feels about the same. Objective Objective Notes Pt presents with 2+ pitting edema to R LE, 1+ pitting edema to L LE. B LE with increased fibrotic tissue noted at medial thigh and post/med calf. Assessment Progress Assessment Progressing as Expected Assessment Notes Less tenderness to palpation throughout B LE, pitting edema does appear to be decreased. Patient goals met ST,2,3 Goals Not Met LT,2,3,4,5,6 Revised Goals none Plan Plan Continue per initial POC. Frequency of Therapy 2 x/wk Duration of therapy 8 wks Time and Billing Re-Eval Time 15 Re-Eval Billing Units 0 PHYSICIAN CERTIFICATION: I certify the specified therapy services for Shea Iverson are required, authorized, and reviewed every 30 days.
--- NOTE | 2021-02-20 15:30 | HMH.RHREAS ---
Rehab Reassessment Rehab OP Re-assessment Start: 01/22/21 15:08 Freq: Status: Active Protocol: Document 02/20/21 15:25 RUPERT (Rec: 02/20/21 15:30 PHOFREEMAN [id number]) Electronically Signed By Timmy Gomes, PT 02/20/21 15:25 Rehab Re-assessment Subjective Subjective Pt reports she feels less edema when she sleeps in her bed now, but it returns while she is up during the day. Objective Objective Notes 2+ pitting edema noted to R foot, ankle and lower leg to the knee. 1+ pitting edema in L lower leg. 0/4 palpation tenderness noted in B lower legs today. Assessment Progress Assessment Progressing as Expected Assessment Notes Somewhat improved edema throughout B lower legs, R remains worse than L. Improved pain in B LE. Patient goals met ST,2,3 Goals Not Met LT,2,3,4,5,6 Revised Goals none Plan Plan Continue per initial POC. Frequency of Therapy 2 x/wk Duration of therapy 8 wks Time and Billing Re-Eval Time 15 Re-Eval Billing Units 0 PHYSICIAN CERTIFICATION: I certify the specified therapy services for Shea Iverson are required, authorized, and reviewed every 30 days.
--- NOTE | 2021-03-26 13:55 | HMH.RHREAS ---
Rehab Reassessment Rehab OP Re-assessment Start: 01/22/21 15:08 Freq: Status: Active Protocol: Document 03/26/21 13:53 RUPERT (Rec: 03/26/21 13:55 RUPERT [id number]) Electronically Signed By Timmy Gomes, PT 03/26/21 13:53 Rehab Re-assessment Subjective Subjective Pt reports no c/o pain or tenderness in B LE this date. Objective Objective Notes 2+ pitting edema noted to R foot. 1+ pitting edema in L lower leg, R ankle, and lower leg to the knee. 0/4 palpation tenderness noted in B lower legs today. Assessment Progress Assessment Progressing as Expected Assessment Notes Continues to show significant decrease in B LE edema steadily, Much less discomfort . Some edema remains and is worse in the R lower leg/foot. Patient goals met ST,2,3 Goals Not Met LT,2,3,4,5,6 Revised Goals none Plan Plan Continue per initial POC. Frequency of Therapy 2 x/wk Duration of therapy 8 wks Time and Billing Re-Eval Time 15 Re-Eval Billing Units 0 PHYSICIAN CERTIFICATION: I certify the specified therapy services for Shea Iverson are required, authorized, and reviewed every 30 days.
== END 2021-04-16 13:05 | disposition home or self-care (01) ==
LOC: PT 13:00
PROVIDERS: PCP Nurse Practitioner Family; Visit Provider Internal Medicine Adolescent Medicine
DX: I89.0 Lymphedema, not elsewhere classified (principal)
CPT/HCPCS: 97110; 97140; 97162; 97164; 97760

== ENCOUNTER 2021-04-30 15:21 | Outpatient (CLI) | payer MEDICARE, SELFPAY ==
[2021-04-30 16:11] LABS: PHA INR Fingerstick 2.3 (0.9-1.1)
== END 2021-04-30 16:13 | disposition home or self-care (01) ==
LOC: ACC 15:22
PROVIDERS: PCP Nurse Practitioner Family; Visit Provider Nurse Practitioner Family
DX: Z51.81 Encounter for therapeutic drug level monitoring (principal); Z79.01 Long term (current) use of anticoagulants
CPT/HCPCS: 85610; 99211; G0463

== ENCOUNTER → 2021-05-07 13:36 | Outpatient (CLI) | payer MEDICARE, SELFPAY ==
[2021-05-07 15:08] LABS: Anion Gap 12.3 mEq/L (5-15); Blood Urea Nitrogen 29 mg/dl (7-17); Calcium 9.1 mg/dl (8.4-10.2); Carbon Dioxide 26 mmol/L (22.0-30.0); Chloride 100 mmol/L (98-107); Estimated Glomerular Filt Rate 27 ml/min (>60); GFR (African American) 33 ML/MIN (>60); Glucose 81 mg/dl (74-100); Potassium 4.3 mmoL/L (3.5-5.1); Sodium 134 mmol/L (136-145)
== END ==
PROVIDERS: Visit Provider Physician Assistant
DX: I11.0 Hypertensive heart disease with heart failure; E78.5 Hyperlipidemia, unspecified; I27.20 Pulmonary hypertension, unspecified; I50.30 Unspecified diastolic (congestive) heart failure; R60.9 Edema, unspecified; R94.31 Abnormal electrocardiogram [ECG] [EKG]
CPT/HCPCS: 80048

== ENCOUNTER → 2021-05-30 15:21 | Outpatient (CLI) | payer MEDICARE, SELFPAY ==
[2021-05-30 16:49] LABS: INR 2.82 (0.9-1.1); Prothrombin Time 29.5 seconds (10.1-12.5)
[2021-05-30 18:21] LABS: Anion Gap 13.2 mEq/L (5-15); Blood Urea Nitrogen 35 mg/dl (7-17); Calcium 8.8 mg/dl (8.4-10.2); Carbon Dioxide 26 mmol/L (22.0-30.0); Chloride 100 mmol/L (98-107); Estimated Glomerular Filt Rate 29 ml/min (>60); GFR (African American) 35 ML/MIN (>60); Glucose 115 mg/dl (74-100); Potassium 4.2 mmoL/L (3.5-5.1); Sodium 135 mmol/L (136-145)
== END ==
PROVIDERS: Pharmacist; PCP Nurse Practitioner Family; Visit Provider Internal Medicine Cardiovascular Disease
DX: E78.5 Hyperlipidemia, unspecified (principal); I27.20 Pulmonary hypertension, unspecified; I50.30 Unspecified diastolic (congestive) heart failure; R60.9 Edema, unspecified; R94.31 Abnormal electrocardiogram [ECG] [EKG]; Z51.81 Encounter for therapeutic drug level monitoring; Z79.01 Long term (current) use of anticoagulants; I11.0 Hypertensive heart disease with heart failure
CPT/HCPCS: 36415; 80048; 85610

== ENCOUNTER → 2021-06-05 07:09 | Outpatient (CLI) | payer MEDICARE, SELFPAY ==
--- NOTE | 2021-06-05 07:14 | CT_ITS ---
FINAL REPORT CLINICAL HISTORY: SYNCOPE AND COLLAPSE FINDINGS: Axial images of the head were obtained without contrast. Coronal reformatted images were also obtained. This study was performed with techniques to keep radiation doses as low as reasonably achievable (ALARA). Individualized dose reduction techniques using automated exposure control or adjustment of mA and/or kV according to the patient's size were employed. There is generalized age-appropriate atrophy. Periventricular low-attenuation areas are seen consistent with mild chronic ischemic changes. There is no evidence of intracranial hemorrhage or mass. There is no evidence of acute infarct. There is no evidence of shift of the midline structures. There is a calcified nodule in the left scalp. There is no acute osseous abnormality IMPRESSION: Atrophy and mild periventricular chronic ischemic changes. No acute intracranial abnormality identified. Reviewed, Interpreted and Dictated by Al Charles III, MD Transcribed by Renetta Cha Authenticated by Al Charles III, MD on 06/05/2021 08:11:35 AM [facility]
== END ==
PROVIDERS: PCP Nurse Practitioner Family; Visit Provider Internal Medicine Hematology & Oncology
DX: R55 Syncope and collapse (principal)
CPT/HCPCS: 70450

== ENCOUNTER → 2021-06-19 11:20 | Outpatient (POV) | payer MEDICARE, SELFPAY ==
--- NOTE | 2021-06-19 12:19 | HMH.PMCON ---
Assessment and Plan (1) Degenerative joint disease (DJD) of lumbar spine Status: Acute Category: Medical Code(s): M47.816 - Spondylosis without myelopathy or radiculopathy, lumbar region (2) Lumbar facet arthropathy Status: Acute Category: Medical Code(s): M47.816 - Spondylosis without myelopathy or radiculopathy, lumbar region (3) Lumbar spondylosis Status: Acute Category: Medical Code(s): M47.816 - Spondylosis without myelopathy or radiculopathy, lumbar region I discussed with the patient that she will benefit from diagnostic lumbar medial branch blocks/facet joint injections L4-L5 and L5-S1 #1. We will schedule her for the above injection to be performed at the next clinic visit in 2 to 3 weeks. Maximus prior directions reviewed and appropriate. HPI - Data of Consult Patient: new to practice Consult date: 06/19/21 Requesting Physician: April Merida MD - Consult Narrative Reason for consult: Chronic low back pain History of present illness: Ms. Iverson is a 75 year old female Zentz today for initial consultation. She states that she has been experiencing chronic low back pain for quite some time now. She states that the pain is a deep dull aching pain without any radiation to her legs. She denies any inciting event such as any trauma falls or trauma to precipitate this pain. She states that the pain is worse with certain activities such as bending or twisting. She rates her pain today as a 0 out of 10 since she states that she has not done much at all today to trigger the pain. She has trialed [id number]-[id number] pain medications including Tylenol and ibuprofen with very minimal pain relief. She also has tried and failed home stretching program for greater than 6 weeks. She has tried ice and heat therapy with very minimal pain relief. She previously has undergone x-rays of the lumbar spine which demonstrates facet arthritic changes at L4-L5 and L5-S1. There is also degenerative disc disease at L2-L3 with mild retrolisthesis of L3 on L4. CC: April Merida MD [facility] History Medical History: Reports:: Anxiety, Arrhythmia, Atrial Fibrillation, Cancer, Depression, Hyperlipidemia, Hypertension Denies:: Diabetes Mellitus Type 1, Diabetes Mellitus Type 2, Internal Pacemaker, Lung Disease, MRSA, Seizures *Have you ever received a pneumonia vaccine?: Yes *Have you received a flu vaccine this season?: Yes Other Medical History: Reports: Arthritis, Other Laterality Cases: Bilateral: Tonsillectomy Other Surgeries: Yes: Cholecystectomy, Colonoscopy, Hernia Repair. No: Pacemaker Amputation: No Fractures: No - *Social History Smoking Status: Former smoker Tobacco Type: cigarettes # Packs/Day (cigarettes): 0 #Yrs smoked (if former smoker): 0 Alcohol Intake: never Alcohol Intake Frequency:: other Substance Use Type: denies use *Occupational Status:: retired Housing: house Household Members: none *Travel in the last 8 weeks: None - Psychiatric History Pschychiatric History:: Reports:: Anxiety, Depression Family Hx:: Coronary Artery Disease, Stroke Review of Systems - Review of Systems Review of systems:: pertinent systems reviewed and negative unless documented below Meds Home Medications Medication Instructions Recorded Confirmed Type paroxetine HCl 40 mg tablet 40 mg PO DAILY 08/08/18 05/09/21 History cholecalciferol (vitamin D3) 250 50,000 unit PO QWEEK cap 02/22/20 05/09/21 History mcg (10,000 unit) capsule clonazepam 0.5 mg tablet 0.5 mg PO DAILY tab 03/11/20 05/09/21 History acetaminophen 325 mg tablet 325 mg PO QID PRN 07/15/20 05/09/21 History warfarin 5 mg tablet See Rx Instructions PO QMWF #30 tab 07/15/20 05/09/21 History albuterol sulfate 90 mcg/actuation 1 inh INHALATION QID PRN #8.5 g 08/05/20 05/09/21 Rx aerosol inhaler losartan 100 mg tablet 100 mg PO tab 11/26/20 05/09/21 History furosemide 40 mg tablet 40 mg PO DAILY #30 tab 05/02/21 05/09/21 Rx carvedilol 25 mg tablet 25 mg PO
[2021-06-19 12:31] VITALS: BP 145/89; PULSE 91; RESP 18; TEMP 36.2; O2SAT 95; BMI 40.4
== END ==
PROVIDERS: Visit Provider Anesthesiology Pain Medicine
DX: M47.816 Spondylosis without myelopathy or radiculopathy, lumbar region (principal)
CPT/HCPCS: 99212; G0463

== ENCOUNTER → 2021-06-20 12:53 | Outpatient (CLI) | payer MEDICARE, SELFPAY ==
--- NOTE | 2021-06-20 14:06 | CT_ITS ---
FINAL REPORT TECHNIQUE: Axial CT images were performed from the lung apices through the upper abdomen. Coronal reformats were submitted. High-resolution protocol was utilized including inspiration and expiration. CLINICAL HISTORY: NODULE, HI RESOLUTION CHEST COMPARISON: 11/19/2020 FINDINGS: There is no axillary adenopathy. There is no hilar or mediastinal mass or adenopathy. Heart size is normal. There is no pericardial or pleural effusion. There is moderate, predominantly peripheral interstitial fibrosis, no significant change from prior. On the expiration images, there are small multifocal areas of air trapping, left greater than right. There are mild groundglass opacities which have overall improved. There is a focal groundglass opacity in the right upper lobe measuring 24 mm, previously measured 24 mm. This is stable since the prior. There is no evidence of bronchiectasis or emphysema. There are several other less than 5 mm nodules which are stable. There is a calcified granuloma in the left lower lobe. The patient is status post cholecystectomy. IMPRESSION: Moderate interstitial fibrosis, stable since prior. Multifocal small areas of air trapping consistent with small airways disease. Stable 24 mm groundglass opacity in the right upper lobe which may be postinflammatory versus low-grade neoplasm. Recommend additional follow-up CT in 12 months. Reviewed, Interpreted and Dictated by Al Charles III, MD Transcribed by Molly Rosenthal Authenticated by Al Charles III, MD on 06/20/2021 04:23:51 PM [facility]
== END ==
PROVIDERS: PCP Nurse Practitioner Family; Visit Provider Internal Medicine Pulmonary Disease
DX: R06.02 Shortness of breath (principal)
CPT/HCPCS: 71250; 94060; 94727; 94729

== ENCOUNTER 2021-07-11 08:57 | Day surgery (SDC) | payer MEDICARE, SELFPAY ==
[2021-07-11 09:13] VITALS: BP 152/84; BP 154/82; PULSE 100; PULSE 111; RESP 18; RESP 20; O2SAT 97
[2021-07-11 09:25] LABS: INR 1.07 (0.9-1.1)
[2021-07-11 09:29] VITALS: BP 146/80; PULSE 70; RESP 18; TEMP 36.4; O2SAT 96; BMI 38.2
--- NOTE | 2021-07-11 10:06 | P.PCN_ITS ---
- Procedure Date: 07/11/21 Time: 10:07 Anesthesiologist:: April Merida MD Complications:: None Pre-procedure Diagnosis:: Degenerative disc disease of the lumbar spine with lumbar facet arthropathy and spondylosis Post-procedure Diagnosis:: Same Indications for Procedure:: Patient is a 75-year-old white female who presents today with chronic low back pain related to the above diagnosis. She denies any pain radiating down her legs. She has tried and failed conservative treatment including oral pain medications and home stretching program for greater than 6 weeks. She has undergone x-rays of the lumbar spine which demonstrates facet arthritic changes at L4-L5 and L5-S1. The plan for today is for the patient to undergo diagnostic lumbar facet joint/medial branch block injections at L4-L5 and L5-S1 under fluoroscopy #1. Procedure Details:: Lumbar medial branch block Informed consent was obtained and the risks and benefits of the procedure was e xplained to the patient. The back was prepped using ChloraPrep. The skin and subcutaneous tissues were anesthetized using lidocaine. I placed 22-gauge spinal needles into the facet joint/medial branches of L4-L5 and L5-S1 bilaterally. Needle placement was confirmed with dye. After this we injected 3 mL bupivacaine 0.25% and Depo-Medrol 13 mg into each facet joint/medial branch of L5 and L5-S1 bilaterally. We used a total of 80 mg Depo-Medrol for all 2 levels bilaterally. The patient tolerated the procedure well with no complications. Plan and Disposition:: Follow-up in 2 weeks. Will reassess at that time.
[2021-07-11 10:46] VITALS: BP 143/57; PULSE 65; RESP 20; O2SAT 98
== END 2021-07-11 10:46 | disposition home or self-care (01) ==
PROVIDERS: Anesthesiology; PCP Nurse Practitioner Family; Visit Provider Anesthesiology Pain Medicine
DX: M51.36 Other intervertebral disc degeneration, lumbar region (principal); M47.819 Spondylosis without myelopathy or radiculopathy, site unspecified; M54.06 Panniculitis affecting regions of neck and back, lumbar region; F41.9 Anxiety disorder, unspecified; I48.91 Unspecified atrial fibrillation; F32.A Depression, unspecified; E78.5 Hyperlipidemia, unspecified; I10 Essential (primary) hypertension; I49.9 Cardiac arrhythmia, unspecified; Z85.9 Personal history of malignant neoplasm, unspecified
CPT/HCPCS: 36415; 85610; J1040; Q9966

== ENCOUNTER → 2021-08-07 10:00 | Outpatient (POV) | payer MEDICARE, SELFPAY ==
[2021-08-07 10:46] VITALS: BP 123/70; PULSE 92; RESP 18; TEMP 36.7; O2SAT 92; BMI 39.9
--- NOTE | 2021-08-07 13:21 | HMH.PAINSOAP ---
[facility] Pain Management SOAP Note Subjective:: Patient is a pleasant 75-year-old female who presents today for a follow-up after a medial branch block injection at L4-L5 and L5-S1 bilaterally on July 11, 2021. Patient still being treated for degenerative disc disease of lumbar spine with lumbar radiculopathy symptoms, lumbar facet arthropathy, lumbar spondylosis, left hip pain. After procedure, patient had minimal relief and rates pain as 9 out of 10. Patient continues to have pain in bilateral hips/bilateral upper buttock, worse on the left. She has trouble getting up from a sitting position, standing, and walking for long periods of time. This also radiates down to her bilateral legs and does not cross her knees. Denies any loss of bowel or bladder function. Denies any recent falls or traumas. [facility] #[id number] morphine equivalent of 0. Review of Systems: General: No recent weight changes, no fever, no sleep disturbances Respiratory: No cough, no shortness of air, no recurring pulmonary infections Cardiovascular/peripheral vascular: No chest pain, no palpitations, no edema, no shortness of breath Gastrointestinal: No new onset incontinence, normal bowel movements reported Genitourinary: No new onset incontinence Musculoskeletal: Low back pain, bilateral hip pain Psychiatric: [Normal mood/affect] Neurological: [Denies weakness in extremities], [denies balance issues] Objective:: Physical Exam: General: Alert and oriented x3, no acute distress, pleasant and cooperative, [on room air] Lungs: Respirations even and unlabored, symmetrical chest expansion Eyes: PERRL Musculoskeletal: Flexion and extension of lumbar [spine] somewhat guarded secondary to pain; bilateral SI are positive for ELSI, Phoebe's, Vancouver's, Gaenslen's, compression, and distraction. Patient is also tender to palpation on the left greater trochanteric bursa. Neurological: Speech clear, no gross sensory deficit Assessment:: Degenerative disc disease of lumbar spine with lumbar radiculopathy Lumbar facet arthropathy Lumbar spondylosis Sacroiliitis Greater trochanteric bursitis Plan:: Patient had minimal relief after the medial branch block injections at L4-L5 and L5-S1 bilaterally. Patient states that the injection was very painful and unpleasant. She is very hesitant to try any more injective therapy. She is still complaining of pain around her bilateral upper buttock that radiates to her bilateral legs worse on the left. She cannot tolerate any prolonged activity such as sitting, standing, and walking. Bilateral SI are positive for ELSI, Phoebe's, Vancouver's, Gaenslen's, compression, and distraction. Patient is also tender to palpation around the left greater trochanteric bursa. We will schedule the patient for a left SI injection and left greater trochanteric bursa injection. Risks and benefits of the procedure have been explained to the patient. Patient would like to proceed with the procedure. Patient has been instructed to contact the clinic with any concerns before the next appointment. Dr. Lancaster has reviewed this note and agrees with this plan of care. This note was dictated using voice recognition software and make contain errors or omissions. [facility] History Medical History: Reports:: Anxiety, Arrhythmia, Atrial Fibrillation, Cancer, Congestive Heart Failure, Depression, Hyperlipidemia, Hypertension Denies:: Diabetes Mellitus Type 1, Diabetes Mellitus Type 2, Internal Pacemaker, Lung Disease, MRSA, Seizures *Have you ever received a pneumonia vaccine?: Yes *Have you received a flu vaccine this season?: Yes Other Medical History: Reports: Anemia, Arthritis, Other Laterality Cases: Right: Tonsillectomy Other Surgeries: Yes: Cardiac Catheterization, Cholecystectomy, Colonoscopy, Hernia Repair. No: Pacemaker Amputation: No Fractures: No - *Social History Smoking Status: Never smoker Tobacco Type: cigarettes # Packs/Day (cigarettes): 0 #Yrs smok
== END ==
PROVIDERS: Visit Provider Student in an Organized Health Care Education/Training Program
DX: M51.16 Intervertebral disc disorders with radiculopathy, lumbar region (principal); M47.896 Other spondylosis, lumbar region; M54.06 Panniculitis affecting regions of neck and back, lumbar region; M46.1 Sacroiliitis, not elsewhere classified; M70.60 Trochanteric bursitis, unspecified hip
CPT/HCPCS: 99212; G0463

== ENCOUNTER → 2021-08-08 09:05 | Outpatient (CLI) | payer MEDICARE, SELFPAY ==
[2021-08-08 15:18] LABS: INR 6.95 (0.9-1.1)
[2021-08-08 15:37] LABS: Alanine Aminotransferase 18 U/L (12-78); Albumin Level 3.7 g/dl (3.5-5.0); Alkaline Phosphatase 53 U/L (38-126); Aspartate Amino Transferase 22 U/L (14-36); Bilirubin,Direct 0.1 mg/dl (0.0-0.4); Bilirubin,Indirect 0.5 mg/dL (0.0-0.9); Bilirubin,Total 0.6 mg/dl (0.2-1.3); Bilirubin,Unconjugated 0.5 mg/dL (0.0-1.1); Chol/HDL Ratio 2.9 (1-3.5); Cholesterol 154 mg/dl (140-200); HDL Cholesterol 54 mg/dl (40-60); Total Protein,Serum 5.8 g/dl (6.3-8.2); Triglycerides 185 mg/dl (30-150); VLDL Cholesterol 37 mg/dL (0-40)
[2021-08-08 15:48] LABS: Direct LDL Cholesterol 57.42 mg/dL (100-129)
[2021-08-08 15:55] LABS: Free T4 (Free Thyroxine) 1.03 ng/dl (0.78-2.19)
== END ==
PROVIDERS: Visit Provider Internal Medicine Cardiovascular Disease
DX: E78.5 Hyperlipidemia, unspecified (principal); I27.20 Pulmonary hypertension, unspecified; I48.0 Paroxysmal atrial fibrillation; I50.30 Unspecified diastolic (congestive) heart failure; R06.00 Dyspnea, unspecified; R60.9 Edema, unspecified; R94.31 Abnormal electrocardiogram [ECG] [EKG]; I11.0 Hypertensive heart disease with heart failure; Z51.81 Encounter for therapeutic drug level monitoring; Z79.01 Long term (current) use of anticoagulants
CPT/HCPCS: 80061; 80076; 84439; 84443; 85610

== ENCOUNTER → 2021-08-11 11:55 | Outpatient (CLI) | payer MEDICARE, SELFPAY ==
[2021-08-11 12:29] LABS: INR 2.11 (0.9-1.1); Prothrombin Time 22.6 seconds (10.1-12.5)
== END ==
PROVIDERS: Internal Medicine Cardiovascular Disease; Visit Provider Internal Medicine
DX: Z51.81 Encounter for therapeutic drug level monitoring (principal); Z79.01 Long term (current) use of anticoagulants
CPT/HCPCS: 36415; 85610

== ENCOUNTER 2021-08-15 06:56 | Day surgery (SDC) | payer MEDICARE, SELFPAY ==
--- NOTE | 2021-08-15 | ECG_ITS ---
APPROVED REPORT Exam: Resting ECG HR:89 bpm ECG Measurements Heart Rate 89 AXES QRSd 93 QRS -13 QT 415 T -31 QTc 462 Conclusion ATRIAL FIBRILLATION NONSPECIFIC T-WAVE ABNORMALITY ABNORMAL RHYTHM ECG UNCONFIRMED REPORT Electronically signed by : Oren Pressley MD 08/15/2021 17:03:49
[2021-08-15 07:01] VITALS: BMI 42.0
[2021-08-15 07:07] LABS: Coronavirus 19, PCR Not Detected (NotDetected); Influenza A, PCR Not Detected (NotDetected); Influenza B, PCR Not Detected (NotDetected)
[2021-08-15 07:17] LABS: Basophils % 0.7 % (0.1-2.0); Eosinophils # 0.1 K/mm3 (0.0-0.4); Eosinophils % 1.8 % (0.1-12.0); Hematocrit 33.8 % (37.0-47.0); Hemoglobin 11.1 g/dL (12.2-16.2); Lymphocytes # 1.5 K/mm3 (0.7-4.5); Mean Corpuscular HGB Conc 32.8 g/dL (31.8-35.4); Mean Corpuscular Hemoglobin 30.8 pg (27.0-31.2); Mean Corpuscular Volume 93.8 fl (81-99); Mean Platelet Volume 7.5 fl (7.4-10.4); Monocytes # 0.3 K/mm3 (0.1-1.0); Monocytes % 6.1 % (1.7-9.3); Neutrophils # 2.5 K/mm3 (1.8-7.8); Neutrophils % 57.4 % (37.0-80.0); Platelet Count 210 K/mm3 (142-424); Red Cell Distribution Width 15.3 % (11.5-17.5); White Blood Count 4.4 K/mm3 (4.8-10.8)
[2021-08-15 07:22] LABS: Chloride 103 mmol/L (98-107); Potassium 3.8 mmoL/L (3.5-5.1); Sodium 137 mmol/L (136-145)
[2021-08-15 07:25] LABS: Blood Urea Nitrogen 18 mg/dl (7-17); Creatinine Clearance Estimated 26 mL/min (50-200); Estimated Glomerular Filt Rate 31 ml/min (>60); GFR (African American) 38 ML/MIN (>60)
[2021-08-15 07:26] LABS: Anion Gap 11.8 mEq/L (5-15); Calcium 8.6 mg/dl (8.4-10.2); Carbon Dioxide 26 mmol/L (22.0-30.0); Glucose 121 mg/dl (74-100)
--- NOTE | 2021-08-15 07:59 | CA_ITS ---
APPROVED REPORT EXAM: Comprehensive 2D, Doppler, and color-flow Echocardiogram Misdraw Hand: RT Simba(R) Ht: 5 ft 5 in Wt: 253lbs BSA: 2.19 BP: 111/72 mmHg Indications: edema, HTN, hyperlipidemia, PHTN, DD, CHF, AFIB. Procedure After obtaining informed consent, patient underwent transesophageal echo in the [facility]. Type of Sedation : Conscious Sedation Sedation was administered by Jono Klein C.R.N.A. Transesophageal probe was inserted and advanced into esophagus without difficulty by Dr. Deni Cooper. The JOSUÉ was performed without complications. Synchronized Cardioversion attempted: Unsuccessful Throughout the procedure, the blood pressure, pulse oximetry, cardiac rhythm, and rate were monitored. The patient tolerated the procedure without adverse effects. Recovery from conscious sedation was uneventful and vital signs were stable. Left Ventricle Left ventricle is normal size mild concentric left ventricular hypertrophy, estimated ejection fraction 55% with no regional wall motion abnormality. Right Ventricle Right ventricle is mildly enlarged with normal contractility. Atria Left atrium is moderately enlarged, left atrial appendage free of thrombus, there is adequate appendage flow by spectral Doppler. No thrombus seen in the left atrium. Right atrium is mildly enlarged. Intra-atrial septum is intact, there is patent foramen ovale with left to right shunt, agitated saline contrast study did not identify [id number] shunt. Aortic Valve Aortic valve is minimally thickened and fibrosed there is no aortic stenosis or aortic insufficiency. Mitral Valve Mitral valve has mild mitral calcification there is no mitral stenosis, there is mild mitral regurgitation. Tricuspid Valve Tricuspid valve grossly normal, there is mild tricuspid regurgitation. Pulmonic Valve Pulmonic valve is grossly normal. Great Vessels Aortic root is normal size. No dissection or aneurysm seen in the ascending arch or descending thoracic aorta. Inferior vena cava poorly visualized. Pericardium No significant pericardial effusion noted. Conclusion 1. Biatrial enlargement, normal left ventricular size, mild concentric left ventricular hypertrophy, estimated ejection fraction 55% with no regional wall motion abnormality. 2. No thrombus seen in left atrium or left atrial appendage. 3. Mild mitral and tricuspid regurgitation. 4. Patent foramen ovale with [id number] shunt. 5. No significant pericardial effusion noted. 6. Unsuccessful electrical DC cardioversion to restore sinus rhythm. Electronically signed by : Vasyl Alberts MD 08/15/2021 09:15:33
[2021-08-15 08:23] VITALS: BP 155/96; PULSE 102; PULSE 89; RESP 18; O2SAT 99
[2021-08-15 08:48] VITALS: BP 149/57; PULSE 102; PULSE 111; RESP 20; O2SAT 90
[2021-08-15 08:52] VITALS: BP 149/57; PULSE 99; RESP 18; O2SAT 94
[2021-08-15 09:32] VITALS: BP 137/79; PULSE 81; RESP 18; O2SAT 97
--- NOTE | 2021-08-15 12:24 | P.PN_ITS ---
[facility] Anesthesia Checklist - Structural Data Admitted From: Home Planned Operative Procedure/s: real,cardioversion Consent for Planned Operative Procedure(s) Verified: Yes - Additional verifications Anesthesia Reactions: No - Airway Assessment C-Spine Mobility Assessed: Yes TMJ Mobility Assessed: Yes Dentition: Edentulous - Neurological Assessment Level of Consciousness: Awake, Alert, Appropriate - Anesthesia Plan Anesthesia Risk discussed: Yes Anesthesia Plan: Verified ASA Class: III Anesthesia Type: [facility] History I have reviewed the patient's past medical history: Yes Medical History: Reports:: Anxiety, Arrhythmia, Atrial Fibrillation, Cancer, Congestive Heart Failure, Depression, Hyperlipidemia, Hypertension Denies:: Diabetes Mellitus Type 1, Diabetes Mellitus Type 2, Internal Pacemaker, Lung Disease, MRSA, Seizures *Have you ever received a pneumonia vaccine?: Yes *Have you received a flu vaccine this season?: Yes Other Medical History: Reports: Anemia, Arthritis, Other Anesthesia experience/problems:: none Laterality Cases: Right: Tonsillectomy Other Surgeries: Yes: Cardiac Catheterization, Cholecystectomy, Colonoscopy, Hernia Repair. No: Pacemaker Amputation: No Fractures: No - *Social History Smoking Status: Never smoker Tobacco Type: cigarettes # Packs/Day (cigarettes): 0 #Yrs smoked (if former smoker): 0 Alcohol Intake: never Alcohol Intake Frequency:: other Substance Use Type: denies use *Occupational Status:: retired Housing: house Household Members: none *Travel in the last 8 weeks: None - Psychiatric History Pschychiatric History:: Reports:: Anxiety, Depression Family Hx:: Coronary Artery Disease, Stroke
--- NOTE | 2021-09-24 13:07 | P.PCN_ITS ---
[facility] Cardioversion Date: 08/15/21 Provider:: Deni Alberts MD Procedure Performed:: Synchronized electrical cardioversion Diagnosis:: Atrial fibrillation Procedure Summary:: Patient was brought to the cardiac Hydraulic Press Tender as an outpatient. After informed consent was obtained, patient received sedation by anesthesia during which time the patient underwent transesophageal echocardiogram followed by 2 separate 200 J synchronized shocks delivered which were unsuccessful in reestablishing sinus rhythm. Procedure was then aborted. Patient tolerated the procedure without complications. Complications:: None Conculsion:: Unsuccessful cardioversion attempts to restore sinus rhythm
== END 2021-08-15 09:42 | disposition home or self-care (01) ==
LOC: CATHLAB 07:00
PROVIDERS: PCP Nurse Practitioner Family; Visit Provider Internal Medicine Cardiovascular Disease
DX: E78.2 Mixed hyperlipidemia (principal); I10 Essential (primary) hypertension; I27.20 Pulmonary hypertension, unspecified; I48.0 Paroxysmal atrial fibrillation; I50.32 Chronic diastolic (congestive) heart failure; R06.00 Dyspnea, unspecified; R60.0 Localized edema; R94.31 Abnormal electrocardiogram [ECG] [EKG]
CPT/HCPCS: 36415; 80048; 85025; 92960; 93005; 93312; C9803; U0003; U0005

== ENCOUNTER 2021-08-21 13:22 | Outpatient (CLI) | payer MEDICARE, SELFPAY ==
[2021-08-21 15:00] LABS: PHA INR Fingerstick 1.5 (0.9-1.1)
== END 2021-08-21 15:02 | disposition home or self-care (01) ==
LOC: ACC 13:23
PROVIDERS: Nurse Practitioner Family; PCP Nurse Practitioner Family; Visit Provider Nurse Practitioner Family
DX: Z51.81 Encounter for therapeutic drug level monitoring (principal); Z79.01 Long term (current) use of anticoagulants
CPT/HCPCS: 85610; 99211; G0463

== ENCOUNTER 2021-08-28 10:16 | Observation (INO) | payer MEDICARE, SELFPAY ==
[2021-08-28] VITALS (7 sets, daily range): BP systolic 122–186; BP diastolic 65–107; PULSE 80–119; RESP 17–22; TEMP 36.7–36.8; O2SAT 91–97; BMI 43.2
--- NOTE | 2021-08-28 10:28 | HMH.PNCARD ---
Subjective Date: 08/28/21 Time: 11:45 Principal diagnosis: A. fib with RVR, pulmonary hypertension Interval history: Pt seen in office today with notation of orthostatic dizziness prompting admission for regulation of blood pressure and heart rate with adjustment in medications. Office note forwarded: JOSUÉ Conclusion 1.? Biatrial enlargement, normal left ventricular size, mild concentric left ventricular hypertrophy, estimated ejection fraction 55% with no regional wall motion abnormality. 2.? No thrombus seen in left atrium or left atrial appendage. 3.? Mild mitral and tricuspid regurgitation. 4.? Patent foramen ovale with qvve-uk-qyxlo shunt. 5.? No significant pericardial effusion noted. 6.? Unsuccessful electrical DC cardioversion to restore sinus rhythm. feeling really sob no chest pains swelling in the feet dizziness when she gets up to quick Normal coronary arteries Mar) Severe pulmonary HTN -MAR 2020. BP stable. Pt wt up 5 lb Diastolic heart failure-acute on chronic, dyspnea, edema. Chronic lower extremity edema/lymphedema. LDL 51 on statin. PAF-in afib today,RVR, a/c with Coumadin. Monitored by [facility] Coumad[facility], managed by Dr. Pressley Dyspnea progressive and worsening.Offered hospital admission, patient agreeable. Dr. Pressley notified and agreed to admission. PLAN: Admit- Afib RVR for rate control/dsypnea This document was scribed by me Jo Ace, RN,BSN for Patricia Beebe APRN Exam - Constitutional mild distress - *Routine Respiratory Exam Present: CTA bilaterally - *Routine Cardiovascular Exam Present: irregularly irregular - *Routine Extremities Exam Present: edema. Absent: cyanosis, clubbing - *Routine Neurological Exam Present: alert, oriented X3 Progress Note: A&P (1) Persistent atrial fibrillation with RVR Status: Acute (2) CLL (chronic lymphocytic leukemia) Status: Chronic (3) HLD (hyperlipidemia) Status: Chronic (4) Hypertension, essential Status: Chronic (5) Pulmonary hypertension Status: Chronic Assessment and Plan for All Diagnoses:: 1. Monitor on telemetry. 2. Adjust meds and monitor BP/HR due to dizziness. 3. May be time to consider referral to EP for ablation and Pacer/BiV implantation. Discussed both A. fib ablation and watchman device with patient and she will consider these options.
[2021-08-28 10:55] LABS: Coronavirus 19, PCR Not Detected (NotDetected); Influenza A, PCR Not Detected (NotDetected); Influenza B, PCR Not Detected (NotDetected)
--- NOTE | 2021-08-28 11:48 | XR_ITS ---
FINAL REPORT CLINICAL HISTORY: shortness of breath COMPARISON: January 16, 2021 FINDINGS: Two views of the chest were obtained. The heart size and pulmonary vascularity are within normal limits. The mediastinum is normal. There is mild fibrosis or scarring in the lungs. There is no pneumothorax. The bony thorax is intact. IMPRESSION: Mild fibrosis or scarring in the lungs. Reviewed, Interpreted and Dictated by Al Charles III, MD Transcribed by Judy Luis Authenticated by Al Charles III, MD on 08/28/2021 01:42:26 PM [facility]
[2021-08-28 12:21] LABS: Basophils # 0.1 K/mm3 (0-0.2); Basophils % 1.2 % (0.1-2.0); Eosinophils # 0.1 K/mm3 (0.0-0.4); Eosinophils % 1.7 % (0.1-12.0); Hematocrit 35.3 % (37.0-47.0); Hemoglobin 11.7 g/dL (12.2-16.2); Lymphocytes # 1.5 K/mm3 (0.7-4.5); Lymphocytes % 26.4 % (10-50); Mean Corpuscular HGB Conc 33.2 g/dL (31.8-35.4); Mean Corpuscular Hemoglobin 31.4 pg (27.0-31.2); Mean Corpuscular Volume 94.7 fl (81-99); Mean Platelet Volume 8.5 fl (7.4-10.4); Monocytes # 0.4 K/mm3 (0.1-1.0); Monocytes % 6.9 % (1.7-9.3); Neutrophils # 3.6 K/mm3 (1.8-7.8); Neutrophils % 63.8 % (37.0-80.0); Platelet Count 197 K/mm3 (142-424); Red Blood Count 3.73 M/mm3 (4.20-5.40); Red Cell Distribution Width 15.3 % (11.5-17.5); White Blood Count 5.6 K/mm3 (4.8-10.8)
[2021-08-28 12:27] LABS: Anion Gap 11.6 mEq/L (5-15); Blood Urea Nitrogen 19 mg/dl (7-17); Calcium 8.6 mg/dl (8.4-10.2); Carbon Dioxide 26 mmol/L (22.0-30.0); Chloride 101 mmol/L (98-107); Creatinine Clearance Estimated 32 mL/min (50-200); Estimated Glomerular Filt Rate 40 ml/min (>60); GFR (African American) 48 ML/MIN (>60); Glucose 118 mg/dl (74-100); Potassium 3.6 mmoL/L (3.5-5.1); Sodium 135 mmol/L (136-145)
[2021-08-28 12:36] LABS: NT Pro Brain Natriuretic Pep. 812 pg/mL (0-450)
[2021-08-28 13:01] LABS: INR 2.29 (0.9-1.1); Prothrombin Time 24.3 seconds (10.1-12.5)
--- NOTE | 2021-08-28 13:06 | HMH.PHAVTE ---
[facility] Pharmacy VTE Monitoring - Patient Demographics Admission date: 08/28/21 Report Date: 08/28/21 Time: 13:06 Allergies/Adverse Reactions: Patient Allergies promethazine Adverse Reaction (Mild, Verified 08/28/21 09:37) PROBLEMS WITH IV FORM, MAKES CRAZY, NO PROBLEM WITH PO propafenone [From Rythmol] Adverse Reaction (Mild, Verified 08/28/21 09:37) weakness Height: 1.65 m Weight: 117.934 kg Patient Problems: Current Active Problems Persistent atrial fibrillation with RVR (Acute) Pulmonary hypertension (Chronic) CLL (chronic lymphocytic leukemia) (Chronic) HLD (hyperlipidemia) (Chronic) Hypertension, essential (Chronic) - VTE Risk Labs: VTE Related Lab Results Hgb 11.7 g/dL (12.2-16.2) L 08/28/21 11:20 Hct 35.3 % (37.0-47.0) L 08/28/21 11:20 Plt Count 197 K/mm3 (142-424) 08/28/21 11:20 PT 24.3 seconds (10.1-12.5) H 08/28/21 11:20 INR 2.29 (0.9-1.1) H 08/28/21 11:20 BUN 19 mg/dl (7-17) H 08/28/21 11:20 Creatinine 1.30 mg/dl (0.52-1.04) H 08/28/21 11:20 Estimated Creat Clear 32 mL/min (50-200) 08/28/21 11:20 Clinical Trial Participant: No - Prophylaxis VTE Prophylaxis Ordered?: Yes Types of VTE Prophylaxis: TEDS Knee High
--- NOTE | 2021-08-28 17:45 | HMH.HP ---
*Admission Date: 08/28/21 *Chief complaint: Admitted per cardiology *History of present illness: Pt seen in office today with notation of orthostatic dizziness prompting admission for regulation of blood pressure and heart rate with adjustment in medications. Office note forwarded: JOSUÉ Conclusion 1.? Biatrial enlargement, normal left ventricular size, mild concentric left ventricular hypertrophy, estimated ejection fraction 55% with no regional wall motion abnormality. 2.? No thrombus seen in left atrium or left atrial appendage. 3.? Mild mitral and tricuspid regurgitation. 4.? Patent foramen ovale with [id number] shunt. 5.? No significant pericardial effusion noted. 6.? Unsuccessful electrical DC cardioversion to restore sinus rhythm. feeling really sob no chest pains swelling in the feet dizziness when she gets up to quick Normal coronary arteries Mar) Severe pulmonary HTN -MAR 2020. BP stable. Pt wt up 5 lb Diastolic heart failure-acute on chronic, dyspnea, edema. Chronic lower extremity edema/lymphedema. LDL 51 on statin. PAF-in afib today,RVR, a/c with Coumadin. Monitored by [facility] Cou[facility], managed by Dr. Pressley Dyspnea progressive and worsening.Offered hospital admission, patient agreeable. Dr. Pressley notified and agreed to admission. PLAN: Admit- Afib RVR for rate control/dsypnea Above note per cardiology service. [facility] History I have reviewed the patient's past medical history: Yes Medical History: Reports:: Anxiety, Arrhythmia, Atrial Fibrillation, Cancer, Congestive Heart Failure, Depression, Hyperlipidemia, Hypertension Denies:: Diabetes Mellitus Type 1, Diabetes Mellitus Type 2, Internal Pacemaker, Lung Disease, MRSA, Seizures *Have you ever received a pneumonia vaccine?: Yes *Have you received a flu vaccine this season?: Yes Other Medical History: Reports: Anemia, Arthritis, Cataracts, Sinus Problems, Other Laterality Cases: Right: Tonsillectomy, Bilateral: Arthroscopy Knee Other Surgeries: Yes: Cardiac Catheterization, Cholecystectomy, Colonoscopy, Hernia Repair. No: Pacemaker Amputation: No Fractures: No - *Social History Smoking Status: Never smoker Tobacco Type: cigarettes # Packs/Day (cigarettes): 0 #Yrs smoked (if former smoker): 0 Alcohol Intake: never Alcohol Intake Frequency:: other Substance Use Type: denies use *Occupational Status:: retired Housing: house Household Members: none *Travel in the last 8 weeks: None - Psychiatric History Pschychiatric History:: Reports:: Anxiety, Depression Family Hx:: Cancer, Coronary Artery Disease, Hyperlipidemia, Hypertension Review of Systems - Review of Systems Review of systems:: pertinent systems reviewed and negative unless documented below Meds Home Medications Medication Instructions Recorded Confirmed Type paroxetine HCl 40 mg tablet 40 mg PO DAILY 08/08/18 08/28/21 History clonazepam 0.5 mg tablet 0.5 mg PO DAILY tab 03/11/20 08/28/21 History acetaminophen 325 mg tablet 325 mg PO QID PRN 07/15/20 08/28/21 History warfarin 5 mg tablet 5 mg PO MOFR #30 tab 07/15/20 08/28/21 History losartan 100 mg tablet 100 mg PO DAILY tab 11/26/20 08/28/21 History nitrofurantoin macrocrystal 50 mg 50 mg PO DAILY cap 05/09/21 08/28/21 History capsule omeprazole 20 mg capsule,delayed 20 mg PO DAILY #90 cap 05/13/21 08/28/21 Rx release rosuvastatin 5 mg tablet 5 mg PO DAILY #90 tab 05/13/21 08/28/21 Rx Amlodipine Besylate 5 mg PO DAILY 06/19/21 08/28/21 History Furosemide [Furosemide 40MG tAB*] 40 mg PO DAILY 06/19/21 08/28/21 History Ergocalciferol (Vitamin D2) 50,000 units PO WEEKLY 08/28/21 08/28/21 History [Drisdol 50,000 units (1.25mg) capsule] Metoprolol Succinate [Metoprolol 25 mg PO DAILY 08/28/21 08/28/21 History Succinate 25mg Tablet*] Warfarin Sodium 2.5 mg PO SUTUWETHSA 08/28/21 08/28/21 History Allergies Allergy/AdvReac Type Severity Reaction Status Date / Time promethazine AdvReac Mild PROBLEMS Verified 08/17
--- NOTE | 2021-08-28 18:44 | PC.NURSE ---
Pt has been fine since being up to the floor. Pt has remained controlled afib on tele. Pt remains on RA. At times pt will get anxious and heart rate will jump to 120's, but quickly go back down to mid-90's. +2 and +3 pitting edema noted to BLE. Purewick in place, draining cloudy, light yellow urine. Pt has diuresed approx 1800mL. Orthostatic BP's taken this shift, SEE VITAL SIGNS FOR RESULTS. No other acute changes, will monitor.
[2021-08-29] VITALS: BP 131/76; PULSE 88; PULSE 90; RESP 16; TEMP 36.8; O2SAT 96
[2021-08-29 04:00] VITALS: PULSE 78
[2021-08-29 04:52] VITALS: BP 140/92; PULSE 83; RESP 14; TEMP 36.5; O2SAT 95
[2021-08-29 05:00] VITALS: BMI 41.4
[2021-08-29 06:44] LABS: INR 2.02 (0.9-1.1); Prothrombin Time 21.7 seconds (10.1-12.5)
--- NOTE | 2021-08-29 07:59 | HMH.DCSUM ---
General - General Admission date:: 08/28/21 Discharge date: 08/29/21 HPI HPI: Pt seen in office today with notation of orthostatic dizziness prompting admission for regulation of blood pressure and heart rate with adjustment in medications. Office note forwarded: JOSUÉ Conclusion 1.? Biatrial enlargement, normal left ventricular size, mild concentric left ventricular hypertrophy, estimated ejection fraction 55% with no regional wall motion abnormality. 2.? No thrombus seen in left atrium or left atrial appendage. 3.? Mild mitral and tricuspid regurgitation. 4.? Patent foramen ovale with [id number] shunt. 5.? No significant pericardial effusion noted. 6.? Unsuccessful electrical DC cardioversion to restore sinus rhythm. feeling really sob no chest pains swelling in the feet dizziness when she gets up to quick Normal coronary arteries Mar) Severe pulmonary HTN -MAR 2020. BP stable. Pt wt up 5 lb Diastolic heart failure-acute on chronic, dyspnea, edema. Chronic lower extremity edema/lymphedema. LDL 51 on statin. PAF-in afib today,RVR, a/c with Coumadin. Monitored by [facility] Cou[facility], managed by Dr. Pressley Dyspnea progressive and worsening.Offered hospital admission, patient agreeable. Dr. Pressley notified and agreed to admission. PLAN: Admit- Afib RVR for rate control/dsypnea Above note per cardiology service. Hospital Course Hospital Course: Admitted overnight for A. fib with RVR. Initial intention was to start diltiazem drip however patient responded well to increase in oral medications with improvement in heart rate control by last night. Has remained well controlled with her rate for over 12 hours. Denies any dizziness this morning. We will plan to continue with increased dose of metoprolol (50 mg of extended release metoprolol daily either once a day or divided twice daily pending patient preference). We will stop amlodipine to see if this helps with her dizziness upon standing. Has no other complaints this morning. Vital stable. Examined on day of discharge. Left close follow-up with primary care and cardiology. Further discussion about treatments in the outpatient setting. Objective Vital signs: Temp Pulse Resp BP Pulse Ox 97.7 F 83 14 140/92 H 95 08/29/21 04:52 08/29/21 04:52 08/29/21 04:52 08/29/21 04:52 08/29/21 04:52 Narrative: - Constitutional no acute distress, obese - *Routine HEENT Exam Head: Present: normocephalic Eye: Present: EOMI, PERRL ENT: Present: mucous membranes moist - *Routine Neck Exam Present: supple. Absent: lymphadenopathy - *Routine Respiratory Exam Present: CTA bilaterally - *Routine Cardiovascular Exam Present: murmur, irregular rhythm, rate controlled - *Routine Abdominal Exam Present: soft, normoactive bowel sounds. Absent: tenderness - *Routine Extremities Exam Present: 1+ BLE edema. Absent: cyanosis, clubbing - *Routine Skin Exam Present: warm. Absent: rash - *Routine Neurological Exam Present: alert, oriented X3 Results Labs on day of discharge: Labs from last 24 hours 08/29/21 08/28/21 08/28/21 05:34 11:20 11:20 WBC RBC Hgb Hct MCV MCH MCHC RDW Plt Count MPV Neut % (Auto) Lymph % (Auto) [place] % (Auto) Eos % (Auto) Baso % (Auto) Neut # (Auto) Lymph # (Auto) [place] # (Auto) Eos # (Auto) Baso # (Auto) PT 21.7 H 24.3 H INR 2.02 H 2.29 H Sodium 135 L Potassium 3.6 Chloride 101 Carbon Dioxide 26 Anion Gap 11.6 BUN 19 H Creatinine 1.30 H Estimated Creat Clear 32 Estimated GFR 40 L Est GFR ( Amer) 48 L Glucose 118 H Calcium 8.6 NT-Pro-B Natriuret Pep 812 H SARS-CoV-2 (PCR) Influenza A Untype (PCR) Influenza Type B (PCR) 08/28/21 08/28/21 11:20 10:50 WBC 5.6 RBC 3.73 L Hgb 11.7 L Hct 35.3 L MCV 94.7 MCH 31.4 H MCHC 33.2 RDW 15.3 Plt C
[2021-08-29 08:00] VITALS: BP 153/51; PULSE 87; RESP 20; TEMP 36.4; O2SAT 92
--- NOTE | 2021-08-29 08:42 | HMH.PNCARD ---
Subjective Date: 08/29/21 Time: 08:42 Principal diagnosis: A. fib with RVR, pulmonary hypertension Interval history: 76-year-old white female in bed in no acute distress. Heart rate improved on increase in beta-mari. Blood pressure improved as well. She does relate a recent 10 pound increase with associated shortness of breath. With additional IV Lasix yesterday her breathing has improved. Exam Vital signs and Labs for Last 24 Hours: Temp Pulse Resp BP Pulse Ox 97.5 F L 87 20 153/51 H 92 L 08/29/21 08:00 08/29/21 08:00 08/29/21 08:00 08/29/21 08:00 08/29/21 08:00 Laboratory Results - last 24 hr 08/28/21 10:50: SARS-CoV-2 (PCR) Not detected, Influenza A Untype (PCR) Not detected, Influenza Type B (PCR) Not detected 08/28/21 11:20: WBC 5.6, RBC 3.73 L, Hgb 11.7 L, Hct 35.3 L, MCV 94.7, MCH 31.4 H, MCHC 33.2, RDW 15.3, Plt Count 197, MPV 8.5, Neut % (Auto) 63.8, Lymph % (Auto) 26.4, Valley % (Auto) 6.9, Eos % (Auto) 1.7, Baso % (Auto) 1.2, Neut # (Auto) 3.6, Lymph # (Auto) 1.5, Valley # (Auto) 0.4, Eos # (Auto) 0.1, Baso # (Auto) 0.1 08/28/21 11:20: Sodium 135 L, Potassium 3.6, Chloride 101, Carbon Dioxide 26, Anion Gap 11.6, BUN 19 H, Creatinine 1.30 H, Estimated Creat Clear 32, Estimated GFR 40 L, Est GFR ( Amer) 48 L, Glucose 118 H, Calcium 8.6, NT-Pro-B Natriuret Pep 812 H 08/28/21 11:20: PT 24.3 H, INR 2.29 H 08/29/21 05:34: PT 21.7 H, INR 2.02 H I & O for Last 24 hours: Intake & Output 08/26/21 08/27/21 08/28/2113/22 11:59 11:59 11:59 11:59 Intake Total 600 / 600 Output Total 2800 / 2800 Balance -2200 / -2200 Weight 260 lb 248 lb 10.903 oz - Constitutional no acute distress - *Routine Respiratory Exam Present: CTA bilaterally - *Routine Cardiovascular Exam Present: irregularly irregular - *Routine Extremities Exam Present: edema. Absent: cyanosis, clubbing - *Routine Neurological Exam Present: alert, oriented X3 Progress Note: A&P (1) Persistent atrial fibrillation with RVR Status: Resolved (2) CLL (chronic lymphocytic leukemia) Status: Chronic (3) HLD (hyperlipidemia) Status: Chronic (4) Hypertension, essential Status: Chronic (5) Pulmonary hypertension Status: Chronic (6) Anxiety Status: Chronic (7) Class 3 obesity Status: Chronic (8) CKD (chronic kidney disease) stage 3, GFR 30-59 ml/min Status: Chronic Assessment and Plan for All Diagnoses:: 1. Atrial fibrillation with rapid ventricular response, improved with increasing metoprolol therapy. Patient weighing option of seeing EP for ablation and/or watchman device. Continue anticoagulation. 2. History of hypertension, Norvasc discontinued in order to make room for additional beta-mari therapy. 3. Orthostatic dizziness, recurrent with mixed orthostatic readings yesterday. Today's orthostatic readings pending. Okay from a cardiac standpoint for discharge home. Resume home medications with exception of discontinuing Norvasc and increasing metoprolol to 50 mg daily. Patient may take an additional Lasix with weight gain of 3 pounds or more overnight. Goal weight is to get back to 243 on her home scales. Follow-up in our office in 1 to 2 weeks.
--- NOTE | 2021-09-01 15:49 | CARE MANAGER ---
Spoke with patient in post-discharge phone call and patient states that she is well and has no concerns at this time. Patient has follow-up appointments and medications.
== END 2021-08-29 10:05 | disposition home or self-care (01) ==
PROVIDERS: Physician Assistant; Admitting Provider Internal Medicine Adolescent Medicine; PCP Internal Medicine Adolescent Medicine; Visit Provider Internal Medicine Adolescent Medicine
DX: I48.91 Unspecified atrial fibrillation (principal); C91.90 Lymphoid leukemia, unspecified not having achieved remission; I27.20 Pulmonary hypertension, unspecified; E78.5 Hyperlipidemia, unspecified; Z79.01 Long term (current) use of anticoagulants; Z79.899 Other long term (current) drug therapy; N18.30 Chronic kidney disease, stage 3 unspecified; R06.9 Unspecified abnormalities of breathing; I12.9 Hypertensive chronic kidney disease with stage 1 through stage 4 chronic kidney disease, or unspecified chronic kidney disease; Z20.822 Contact with and (suspected) exposure to COVID-19
CPT/HCPCS: G0378; G0379; 71046; 80048; 83880; 85025; 85610; C9803; U0003; U0005

== ENCOUNTER 2021-10-21 13:09 | Outpatient (CLI) | payer MEDICARE, SELFPAY ==
[2021-10-21 15:55] LABS: PHA INR Fingerstick 2.2 (0.9-1.1)
== END 2021-10-21 16:00 | disposition home or self-care (01) ==
PROVIDERS: PCP Nurse Practitioner Family; Visit Provider Nurse Practitioner Family
DX: Z79.01 Long term (current) use of anticoagulants (principal); Z51.81 Encounter for therapeutic drug level monitoring
CPT/HCPCS: 85610; 99211; G0463

== ENCOUNTER → 2021-11-20 14:28 | Outpatient (CLI) | payer MEDICARE, SELFPAY ==
[2021-11-20 16:03] LABS: Basophils # 0.1 K/mm3 (0-0.2); Basophils % 0.8 % (0.1-2.0); Eosinophils # 0.2 K/mm3 (0.0-0.4); Eosinophils % 2.5 % (0.1-12.0); Hematocrit 37.2 % (37.0-47.0); Hemoglobin 11.7 g/dL (12.2-16.2); Lymphocytes # 1.8 K/mm3 (0.7-4.5); Lymphocytes % 30.1 % (10-50); Mean Corpuscular HGB Conc 31.6 g/dL (31.8-35.4); Mean Corpuscular Volume 94.8 fl (81-99); Mean Platelet Volume 7.9 fl (7.4-10.4); Monocytes # 0.4 K/mm3 (0.1-1.0); Monocytes % 6.2 % (1.7-9.3); Neutrophils # 3.5 K/mm3 (1.8-7.8); Neutrophils % 60.3 % (37.0-80.0); Platelet Count 207 K/mm3 (142-424); Red Blood Count 3.92 M/mm3 (4.20-5.40); Red Cell Distribution Width 14.3 % (11.5-17.5); White Blood Count 5.8 K/mm3 (4.8-10.8)
[2021-11-20 16:15] LABS: Chloride 102 mmol/L (98-107)
[2021-11-20 16:17] LABS: Potassium 4.9 mmoL/L (3.5-5.1)
[2021-11-20 16:18] LABS: Alanine Aminotransferase 14 U/L (12-78); Alkaline Phosphatase 89 U/L (38-126); Aspartate Amino Transferase 24 U/L (14-36); Bilirubin,Total 0.6 mg/dl (0.2-1.3); Blood Urea Nitrogen 18 mg/dl (7-17); Calcium 9.2 mg/dl (8.4-10.2); Carbon Dioxide 28 mmol/L (22.0-30.0); Estimated Glomerular Filt Rate 48 ml/min (>60); GFR (African American) 58 ML/MIN (>60); Glucose 138 mg/dl (74-100)
[2021-11-20 16:20] LABS: Albumin Level 4.2 g/dl (3.5-5.0); Albumin/Globulin Ratio 1.8 (1.1-1.8); Globulin 2.3 g/dL (1.3-3.2); Total Protein,Serum 6.5 g/dl (6.3-8.2)
[2021-11-21 22:36] LABS: Anion Gap 11.9 mEq/L (5-15); Lactate Dehydrogenase 177 U/L (313-618); Sodium 137 mmol/L (136-145); Uric Acid 7.5 mg/dl (2.5-6.2)
== END ==
PROVIDERS: PCP Nurse Practitioner Family; Visit Provider Internal Medicine Hematology & Oncology
DX: C85.99 Non-Hodgkin lymphoma, unspecified, extranodal and solid organ sites (principal)
CPT/HCPCS: 36415; 80053; 83615; 84550; 85025

== ENCOUNTER → 2021-12-02 14:58 | Outpatient (CLI) | payer MEDICARE, SELFPAY | PROVIDERS: PCP Nurse Practitioner Family; Visit Provider Internal Medicine Gastroenterology | DX: Z01.812 Encounter for preprocedural laboratory examination (principal); Z20.822 Contact with and (suspected) exposure to COVID-19; Z13.810 Encounter for screening for upper gastrointestinal disorder; Z12.11 Encounter for screening for malignant neoplasm of colon | CPT/HCPCS: C9803; U0003; U0005 ==

== ENCOUNTER 2021-12-04 11:21 | Day surgery (SDC) | payer MEDICARE, SELFPAY ==
[2021-12-02 12:28] VITALS: BMI 39.9
[2021-12-04] VITALS (7 sets, daily range): BP systolic 116–190; BP diastolic 65–92; PULSE 85–106; RESP 16–19; TEMP 36.6–36.7; O2SAT 94–98
--- NOTE | 2021-12-04 13:39 | P.PN_ITS ---
[facility] Anesthesia Checklist - Patient Identification Patient Identification: Arm Band - Structural Data Admitted From: Home Planned Operative Procedure/s: egd/colonoscopy Consent for Planned Operative Procedure(s) Verified: Yes Verified Documents: Surgical Consent, History and Physical - NPO Status Verified Time NPO: 00:00 - Additional verifications Anesthesia Reactions: No - Airway Assessment C-Spine Mobility Assessed: Yes (mp2) TMJ Mobility Assessed: Yes Dentition: Edentulous - Neurological Assessment Level of Consciousness: Awake, Alert - Anesthesia Plan Anesthesia Risk discussed: Yes Anesthesia Plan: Verified ASA Class: III Anesthesia Type: MAC [facility] History I have reviewed the patient's past medical history: Yes Medical History: Reports:: Anxiety, Arrhythmia, Atrial Fibrillation, Cancer (lymphoma, CLL), Congestive Heart Failure, Depression, Hyperlipidemia, Hypertension Denies:: Diabetes Mellitus Type 1, Diabetes Mellitus Type 2, Internal Pacemaker, Lung Disease, MRSA, Seizures *Have you ever received a pneumonia vaccine?: Yes *Have you received a flu vaccine this season?: Yes Other Medical History: Reports: Anemia, Arthritis, Cataracts, Sinus Problems, Other Anesthesia experience/problems:: nac Laterality Cases: Right: Tonsillectomy, Bilateral: Arthroscopy Knee, Cataract, Total Knee Replacement Other Surgeries: Yes: Cardiac Catheterization, Cholecystectomy, Colonoscopy, Hernia Repair. No: Pacemaker Amputation: No Fractures: No - *Social History Last grade of school completed: High school graduate Smoking Status: Never smoker Tobacco Type: cigarettes # Packs/Day (cigarettes): 0 #Yrs smoked (if former smoker): 0 Alcohol Intake: never Alcohol Intake Frequency:: other Substance Use Type: denies use *Occupational Status:: unemployed, retired Housing: house Household Members: none *Travel in the last 8 weeks: None - Psychiatric History Pschychiatric History:: Reports:: Anxiety, Depression Family Hx:: Cancer, Coronary Artery Disease, Hyperlipidemia, Hypertension
--- NOTE | 2021-12-04 14:03 | HMH.SCOPE ---
- Procedure: Date: 12/04/21 Patient Date of :: 1945 Procedure Performed:: EGD Indications:: Recurrent nausea/vomiting Performing Provider:: Davida Dan MD Referring Provider:: Yisel Choudhary APRN Sedation:: Propofol Procedure:: The gastroscope was gently passed through the incisoral orifice into the oral cavity and under direct visualization the esophagus was intubated. The endoscope was passed down the esophagus, through the stomach, and into the duodenum. Color, texture, mucosa, and anatomy of the esophagus, stomach, and duodenum were carefully examined with the scope. Findings:: Oropharynx: normal Esophagus: normal EG Junction: intact at 40 cm Cardia: normal Fundus: normal Body: normal Antrum: normal Duodenal bulb: normal Duodenum (second and third portion): normal Impression: Normal EGD. No evidence of ulcer disease or outlet obstruction Recommendations:: Symptomatic therapy with PPI's and consider evaluation of gastroparesis Complications:: None Estimated blood obtained (mL): 0
--- NOTE | 2021-12-04 14:06 | HMH.SCOPE ---
- Procedure: Date: 12/04/21 Patient Date of :: 1945 Procedure Performed:: Colonoscopy Indications:: History of polyps Performing Provider:: Davida Dan MD Referring Provider:: Yisel Choudhary APRN Sedation:: Propofol Procedure:: After placing the patient in the left lateral decubitus position, the colonoscopy was gently inserted into the rectum and under direct visualization advanced to the cecum which was identified by transillumination in the right lower quadrant, identification of the ileocecal valve, appendiceal orifice, and cecal strap. Color, texture, mucosa, and anatomy of the colon were carefully examined with the scope. Findings:: Anal canal: normal Rectum: normal Sigmoid colon: normal without polyps or inflammatory changes Descending colon: normal without polyps or inflammatory changes Splenic flexure: normal Transverse colon: normal without polyps or inflammatory changes Hepatic flexure: normal Ascending colon: normal without polyps or inflammatory changes Cecum: normal Terminal ileum: not visualized Impression: Normal colonoscopy Recommendations:: F/U exam in about FIE years or so, sooner if clinically indicated Complications:: None Estimated blood obtained (mL): 0
== END 2021-12-04 14:56 | disposition home or self-care (01) ==
LOC: OUTP 11:22
PROVIDERS: PCP Nurse Practitioner Family; Visit Provider Internal Medicine Gastroenterology
PROC: 0DJ08ZZ Inspection of Upper Intestinal Tract, Via Natural or Artificial Opening Endoscopic (ICD-10-PCS; CPT 43235; principal; 2021-12-04 12:30)
DX: Z86.010 Personal history of colon polyps; R11.2 Nausea with vomiting, unspecified; I10 Essential (primary) hypertension; Z12.11 Encounter for screening for malignant neoplasm of colon
CPT/HCPCS: 43235; G0105

== ENCOUNTER 2021-12-08 12:47 | Outpatient (CLI) | payer MEDICARE, SELFPAY | END 2021-12-08 13:55 | disposition home or self-care (01) | LOC: ACC 12:48 | PROVIDERS: PCP Nurse Practitioner Family; Visit Provider Nurse Practitioner Family | DX: Z51.81 Encounter for therapeutic drug level monitoring (principal); Z79.01 Long term (current) use of anticoagulants | CPT/HCPCS: 85610; 99211; G0463 ==

== ENCOUNTER 2021-12-12 12:54 | Outpatient (CLI) | payer MEDICARE, SELFPAY ==
[2021-12-12 15:10] LABS: PHA INR Fingerstick 1.5 (0.9-1.1)
== END 2021-12-12 15:29 ==
LOC: ACC 12:55
PROVIDERS: PCP Nurse Practitioner Family; Visit Provider Nurse Practitioner Family
DX: Z51.81 Encounter for therapeutic drug level monitoring (principal); Z79.01 Long term (current) use of anticoagulants
CPT/HCPCS: 85610; 99211; G0463

== ENCOUNTER 2022-01-02 12:11 | Outpatient (CLI) | payer MEDICARE, SELFPAY ==
[2022-01-02 12:18] LABS: Microscopic, Urine URINE MICROSCOPIC (MICROSCOPIC)
[2022-01-02 12:45] LABS: PHA INR Fingerstick 1.8 (0.9-1.1)
[2022-01-02 12:51] LABS: Basophils # 0.1 K/mm3 (0-0.2); Basophils % 0.9 % (0.1-2.0); Eosinophils # 0.1 K/mm3 (0.0-0.4); Eosinophils % 1.5 % (0.1-12.0); Hematocrit 36.3 % (37.0-47.0); Hemoglobin 11.7 g/dL (12.2-16.2); Lymphocytes # 1.6 K/mm3 (0.7-4.5); Lymphocytes % 21.5 % (10-50); Mean Corpuscular HGB Conc 32.2 g/dL (31.8-35.4); Mean Corpuscular Hemoglobin 30.8 pg (27.0-31.2); Mean Corpuscular Volume 95.8 fl (81-99); Mean Platelet Volume 7.9 fl (7.4-10.4); Monocytes # 0.4 K/mm3 (0.1-1.0); Monocytes % 4.8 % (1.7-9.3); Neutrophils # 5.2 K/mm3 (1.8-7.8); Neutrophils % 71.3 % (37.0-80.0); Platelet Count 221 K/mm3 (142-424); Red Blood Count 3.79 M/mm3 (4.20-5.40); Red Cell Distribution Width 15.6 % (11.5-17.5); White Blood Count 7.3 K/mm3 (4.8-10.8)
[2022-01-02 12:55] LABS: Appearance,Urine CLOUDY (Clear); Bilirubin,Urine Negative (Negative); Blood, Urine 2+ (Negative); Color,Urine YELLOW (Yellow); Glucose,Urine (UA) Negative (Negative); Ketones,Urine Negative (Negative); Leukocyte Esterase,Urine 3+ (Negative); Nitrate,Urine Negative (Negative); Protein,Urine TRACE (Negative); Specific Gravity, Urine <= 1.005 (1.005-1.030); Urobilinogen,Urine 0.2 EU/dl (0.2)
[2022-01-02 13:04] LABS: Bacteria,Urine 1+ /lpf; WBC,Urine TNTC #/hpf (0-3)
[2022-01-02 13:20] LABS: Alanine Aminotransferase 17 U/L (12-78); Albumin Level 3.9 g/dl (3.5-5.0); Albumin/Globulin Ratio 1.6 (1.1-1.8); Alkaline Phosphatase 68 U/L (38-126); Anion Gap 16.2 mEq/L (5-15); Aspartate Amino Transferase 22 U/L (14-36); Bilirubin,Total 0.6 mg/dl (0.2-1.3); Blood Urea Nitrogen 16 mg/dl (7-17); Calcium 8.7 mg/dl (8.4-10.2); Carbon Dioxide 25 mmol/L (22.0-30.0); Chloride 100 mmol/L (98-107); Estimated Glomerular Filt Rate 36 ml/min (>60); GFR (African American) 44 ML/MIN (>60); Globulin 2.4 g/dL (1.3-3.2); Glucose 125 mg/dl (74-100); Potassium 4.2 mmoL/L (3.5-5.1); Sodium 137 mmol/L (136-145); Total Protein,Serum 6.3 g/dl (6.3-8.2)
[2022-01-02 14:09] LABS: Vitamin B12 200 pg/mL (239-931)
== END 2022-01-02 12:48 ==
LOC: ACC 12:13
PROVIDERS: PCP Nurse Practitioner Family; Visit Provider Nurse Practitioner Family
DX: N39.0 Urinary tract infection, site not specified (principal); E53.8 Deficiency of other specified B group vitamins; Z79.01 Long term (current) use of anticoagulants; Z51.81 Encounter for therapeutic drug level monitoring
CPT/HCPCS: 36415; 80053; 81001; 82607; 85025; 85610; 87086; 99211; G0463

== ENCOUNTER → 2022-01-19 14:59 | Outpatient (CLI) | payer MEDICARE, SELFPAY | PROVIDERS: PCP Nurse Practitioner Family; Visit Provider Physician Assistant | DX: I48.20 Chronic atrial fibrillation, unspecified (principal); R06.00 Dyspnea, unspecified; R55 Syncope and collapse | CPT/HCPCS: 93270 ==

== ENCOUNTER 2022-01-30 13:26 | Outpatient (CLI) | payer MEDICARE, SELFPAY ==
[2022-01-30 15:52] LABS: PHA INR Fingerstick 3.3 (0.9-1.1)
== END 2022-01-30 16:17 ==
PROVIDERS: PCP Nurse Practitioner Family; Visit Provider Internal Medicine Cardiovascular Disease
DX: Z51.81 Encounter for therapeutic drug level monitoring (principal); Z79.01 Long term (current) use of anticoagulants
CPT/HCPCS: 85610; 99211; G0463

== ENCOUNTER → 2022-02-05 08:52 | Outpatient (CLI) | payer MEDICARE, SELFPAY ==
--- NOTE | 2022-02-05 09:29 | CT_ITS ---
FINAL REPORT TECHNIQUE: Axial CT images of the abdomen and pelvis were obtained before and after the administration of IV contrast. This study was performed with techniques to keep radiation doses as low as reasonably achievable (ALARA). Individualized dose reduction techniques using automated exposure control or adjustment of mA and/or kV according to the patient's size were employed. CLINICAL HISTORY: nausea, vomiting, pancreatic nodule COMPARISON: 04/04/2020 FINDINGS: Less than 1 cm right renal cyst. Abdomen: Abdomen: There are calcified granulomas in the left lung base. There is mild bibasilar atelectasis or scarring. The heart is normal in size. The liver has an unremarkable appearance, without evidence of mass or biliary duct dilatation. The gallbladder is surgically absent. The spleen is unremarkable. No adrenal masses present. The pancreas is lobulated and felt to represent normal variation, appears stable. The questionable small nodule in the pancreatic tail is again seen but this may represent normal pancreatic lobulation. There is a less than 1 cm cyst in the upper pole of the right kidney. The aorta is normal in caliber. There is no free fluid or adenopathy. No abnormal fluid collection is seen. There are moderate vascular calcifications. There is a small umbilical hernia containing fat. Precontrast images demonstrate no evidence of nephrolithiasis. Pelvis: The appendix is not seen. There is diffuse wall thickening of the urinary bladder with surrounding stranding consistent with inflammatory change. There is no evidence of adenopathy. There is no evidence of bowel obstruction. IMPRESSION: Lobulated pancreas, thought to represent normal variation, stable. Questionable small nodule in pancreatic tail may represent normal pancreatic lobulation. Less than 1 cm right renal cyst. Reviewed, Interpreted and Dictated by Al Charles III, MD Transcribed by Liliya Patricia Authenticated and [facility]
[2022-02-05 10:32] LABS: Chloride 102 mmol/L (98-107); Potassium 3.9 mmoL/L (3.5-5.1); Sodium 141 mmol/L (136-145)
[2022-02-05 10:35] LABS: Anion Gap 16.9 mEq/L (5-15); Blood Urea Nitrogen 20 mg/dl (7-17); Calcium 8.7 mg/dl (8.4-10.2); Carbon Dioxide 26 mmol/L (22.0-30.0); Estimated Glomerular Filt Rate 40 ml/min (>60); GFR (African American) 48 ML/MIN (>60); Glucose 120 mg/dl (74-100)
== END ==
PROVIDERS: PCP Nurse Practitioner Family; Visit Provider Nurse Practitioner Family
DX: E66.9 Obesity, unspecified (principal); E78.2 Mixed hyperlipidemia; I10 Essential (primary) hypertension; I48.20 Chronic atrial fibrillation, unspecified; N18.30 Chronic kidney disease, stage 3 unspecified; R06.00 Dyspnea, unspecified; R11.0 Nausea; R11.10 Vomiting, unspecified; R55 Syncope and collapse; R94.31 Abnormal electrocardiogram [ECG] [EKG]; C91.90 Lymphoid leukemia, unspecified not having achieved remission; Z68.41 Body mass index [BMI] 40.0-44.9, adult
CPT/HCPCS: 36415; 74178; 80048; Q9967

== ENCOUNTER 2022-02-27 13:22 | Outpatient (CLI) | payer MEDICARE, SELFPAY ==
--- NOTE | 2022-02-27 13:26 | MM_ITS ---
PROCEDURE INFORMATION: Exam: MG Bilateral Screening 3D Mammography Exam date and time: 02/27/2022 1:26 PM Age: 76 years old Clinical indication: Screening examination. Personal history of lymphoma or leukemia. No family history of breast cancer. TECHNIQUE: Imaging protocol: Bilateral Screening tomosynthesis and 2D mammography including computer-aided detection (CAD) when performed. COMPARISON: 1. MG MM DIG SCREENING MAMM BI W/CAD 02/07/2021 11:02 AM 2. MG MM DIG SCREENING MAMM BI W/CAD 11/21/2019 3:31 PM 3. MG MM DIG SCREENING MAMM BI W/CAD 11/15/2018 4:33 PM 4. MG DXRT MM Dig mamm DX unilat RT CAD 05/02/2018 1:24 PM FINDINGS: MAMMOGRAPHY: Breast composition: There are scattered areas of fibroglandular density. Mass: No suspicious mass. Architectural distortion: None. Calcifications: No suspicious calcifications. Asymmetric density: None. Skin thickening: None. Axillary adenopathy: None. IMPRESSION: No mammographic evidence of malignancy. Annual screening is recommended unless otherwise clinically indicated. ASSESSMENT: BI-RADS Category 1: Negative
[2022-02-27 15:02] LABS: PHA INR Fingerstick 2.9 (0.9-1.1)
== END 2022-02-27 16:02 ==
PROVIDERS: Internal Medicine Cardiovascular Disease; PCP Nurse Practitioner Family; Visit Provider Nurse Practitioner Family
DX: Z12.31 Encounter for screening mammogram for malignant neoplasm of breast (principal); Z51.81 Encounter for therapeutic drug level monitoring; Z79.01 Long term (current) use of anticoagulants; I48.91 Unspecified atrial fibrillation
CPT/HCPCS: 77063; 77067; 85610; 99211; G0463

== ENCOUNTER 2022-04-13 10:07 | Observation (INO) | payer MEDICARE, SELFPAY ==
[2022-04-13] VITALS (12 sets, daily range): BP systolic 129–158; BP diastolic 66–91; PULSE 66–91; RESP 18; TEMP 36.9–37.6; O2SAT 90–97; BMI 43.9; BMI 44.5
--- NOTE | 2022-04-13 10:19 | XR_ITS ---
PROCEDURE INFORMATION: Exam: XR Chest Exam date and time: 04/13/2022 10:48 AM Age: 76 years old Clinical indication: Cough; Additional info: Weak, cough TECHNIQUE: Imaging protocol: Radiologic exam of the chest. Views: 1 view. COMPARISON: CR XR CHEST 2V 08/28/2021 12:50 PM FINDINGS: Lungs: No focal airspace disease. Pleural spaces: Unremarkable. No pleural effusion. No pneumothorax. Heart/Mediastinum: Cardiomediastinal silhouette is within normal limits. Bones/joints: Unremarkable. IMPRESSION: No acute cardiopulmonary abnormality.
--- NOTE | 2022-04-13 10:20 | HMH.EDGENADL ---
Discharge Plan Disposition Patient Disposition: Admitted As Inpatient Chief Complaint: Weakness Prescriptions Prescriptions: No Action budesonide-formoterol [Symbicort] 80-4.5 mcg/actuation HFA aerosol inhaler 1 inh IH QID PRN (Reason: shortness of breath or wheezing) 90 Days Qty: 10.2 2RF paroxetine HCl 40 mg tablet 40 mg PO DAILY clonazepam 0.5 mg tablet 0.5 mg PO DAILY rosuvastatin 5 mg tablet 5 mg PO DAILY Qty: 90 3RF metoprolol succinate 50 mg tablet extended release 24 hr 50 mg PO BID Qty: 180 3RF warfarin 5 mg tablet See Rx Instructions .ROUTE .COMPLEX Qty: 30 3RF Dose Instruction: TAKE ONE TABLET BY MOUTH ONCE A DAY DIRECTED Rx Instructions: TAKE ONE TABLET BY MOUTH ONCE A DAY DIRECTED losartan 100 mg tablet See Rx Instructions .Route .COMPLEX Qty: 90 1RF Rx Instructions: TAKE ONE TABLET BY MOUTH ONCE A DAY ergocalciferol (vitamin D2) 50,000 UNIT capsule 50,000 units PO WEEKLY furosemide 40 MG tablet See Rx Instructions .Route .COMPLEX Rx Instructions: TAKE ONE TABLET BY MOUTH ONCE A DAY omeprazole 20 MG capsule,delayed release(DR/EC) 40 mg PO DAILY Referrals Follow up/Referrals: Oren Pressley MD [Primary Care Provider] - See instructions Clinical Impressions Clinical Impression: COVID-19, Hypomagnesemia, Declining functional status Discharge ED Provider: Joe Aguilera General Adult HPI General Chief complaint: Weakness Stated complaint: Weakness Time Seen by Provider: 04/13/22 10:20 History of Present Illness HPI narrative: Patient is a 76-year-old female with past medical history of chronic lymphedema in the bilateral lower extremities, atrial fibrillation on warfarin who presents emergency department for evaluation of weakness. Patient normally ambulates freely and lives alone, over the last 24 hours she has had cough, acute functional decline where she was unable to get up off of the toilet causing her to present here for further evaluation after son called 911. Patient denies shortness of breath or chest pain, abdominal pain. Decreased p.o. intake, adequate urine output. Afebrile. Her main concern is being weak as a kitten . No other acute complaints at this time. Related Data Home Medications Medication Instructions Recorded Confirmed paroxetine HCl 40 mg tablet 40 mg PO DAILY mood 08/08/18 02/04/22 clonazepam 0.5 mg tablet 0.5 mg PO DAILY Anxiety 03/11/20 02/04/22 ergocalciferol (vitamin D2) 1,250 50,000 units PO WEEKLY 08/28/21 02/04/22 mcg (50,000 unit) capsule supplementation furosemide 40 mg tablet See Rx Instructions .Route 12/02/21 02/04/22 .COMPLEX chf omeprazole 20 mg capsule,delayed 40 mg PO DAILY GERD 12/04/21 02/04/22 release Previous Rx's Medication Instructions Recorded rosuvastatin 5 mg tablet 5 mg PO DAILY Cholesterol #90 tabs 05/13/21 budesonide-formoterol HFA 80 1 inh inhalation QID PRN shortness 09/25/21 mcg-4.5 mcg/actuation aerosol of breath or wheezing 90 days inhaler (Symbicort) #10.2 grams metoprolol succinate 50 mg 50 mg PO BID High blood pressure 02/25/22 tablet,extended release 24 hr #180 tabs warfarin 5 mg tablet See Rx Instructions .Route 03/16/22 .COMPLEX #30 tabs losartan 100 mg tablet See Rx Instructions .Route 03/23/22 .COMPLEX High blood pressure #90 tabs Allergies Allergy/AdvReac Type Severity Reaction Status Date / Time No Known Allergies Allergy Verified 02/04/22 14:39 [facility] Disclaimer: The information contained in this section may have been updated after the patient was seen, as this information can be updated by other users. Medical History (Updated 04/13/22 @ 11:29 by Joe Aguilera MD) Abnormal computerized axial tomography of chest Dyspnea Dyspnea on exertion PAF (paroxysmal atrial fibrillation) Pulmonary hypertension Pulmonary nodule 1 cm or greater in diameter SOB (shortness of breath) Social
[2022-04-13 10:24] LABS: Influenza A, PCR Not Detected (NotDetected); Influenza B, PCR Not Detected (NotDetected)
[2022-04-13 10:28] LABS: Basophils # 0.1 K/mm3 (0-0.2); Basophils % 1.4 % (0.1-2.0); Eosinophils % 0.3 % (0.1-12.0); Hematocrit 36.7 % (37.0-47.0); Hemoglobin 12.3 g/dL (12.2-16.2); Lymphocytes # 1.3 K/mm3 (0.7-4.5); Mean Corpuscular HGB Conc 33.6 g/dL (31.8-35.4); Mean Corpuscular Hemoglobin 30.2 pg (27.0-31.2); Mean Corpuscular Volume 89.7 fl (81-99); Mean Platelet Volume 8.8 fl (7.4-10.4); Monocytes # 0.5 K/mm3 (0.1-1.0); Monocytes % 7.1 % (1.7-9.3); Neutrophils % 72.2 % (37.0-80.0); Platelet Count 167 K/mm3 (142-424); Red Blood Count 4.09 M/mm3 (4.20-5.40); Red Cell Distribution Width 14.8 % (11.5-17.5); White Blood Count 6.9 K/mm3 (4.8-10.8)
[2022-04-13 10:30] LABS: Chloride 102 mmol/L (98-107); Potassium 3.9 mmoL/L (3.5-5.1); Sodium 135 mmol/L (136-145)
[2022-04-13 10:32] LABS: Alanine Aminotransferase 22 U/L (12-78); Aspartate Amino Transferase 24 U/L (14-36); Blood Urea Nitrogen 16 mg/dl (7-17); Creatinine Clearance Estimated 24 mL/min (50-200); Estimated Glomerular Filt Rate 34 ml/min (>60); GFR (African American) 41 ML/MIN (>60)
[2022-04-13 10:33] LABS: Albumin Level 4.3 g/dl (3.5-5.0); Albumin/Globulin Ratio 1.7 (1.1-1.8); Alkaline Phosphatase 55 U/L (38-126); Anion Gap 14.9 mEq/L (5-15); Bilirubin,Total 0.8 mg/dl (0.2-1.3); Calcium 9.4 mg/dl (8.4-10.2); Carbon Dioxide 22 mmol/L (22.0-30.0); Globulin 2.5 g/dL (1.3-3.2); Glucose 122 mg/dl (74-100); Magnesium 1.3 mg/dl (1.6-2.3); Total Protein,Serum 6.8 g/dl (6.3-8.2)
--- NOTE | 2022-04-13 10:33 | ECG_ITS ---
APPROVED REPORT Exam: Resting ECG HR:80 bpm ECG Measurements Heart Rate 80 AXES QRSd 93 QRS 25 QT 363 T 50 QTc 399 Conclusion ATRIAL FIBRILLATION LOW QRS VOLTAGE IN PRECORDIAL LEADS [QRS DEFLECTION < 1.0 mV IN CHEST LEADS] MINIMAL ST DEPRESSION [0.025+ mV ST DEPRESSION] ABNORMAL RHYTHM ECG UNCONFIRMED REPORT Electronically signed by : Oren Pressley MD 04/14/2022 20:12:44
[2022-04-13 10:43] LABS: NT Pro Brain Natriuretic Pep. 2550 pg/mL (0-450)
[2022-04-13 11:04] LABS: Coronavirus 19, PCR Detected (NotDetected)
[2022-04-13 11:11] LABS: INR 1.81 (0.9-1.1); Prothrombin Time 18.9 seconds (10.1-12.5)
--- NOTE | 2022-04-13 11:27 | PC.NURSE ---
notified care management of admission
--- NOTE | 2022-04-13 12:08 | HMH.PHAINT1 ---
Pharmacy Intervention Comments: MEDICATION RECONCILIATION COMPLETED ON PATIENT USING EXTERNAL FILL HISTORY FROM PHARMACY, LIST FROM CARDIOLOGY OFFICE, AND ACC NOTES. -ARVIND FERRO, RAJEEVD
[2022-04-13 12:39] LABS: Microscopic, Urine URINE MICROSCOPIC (MICROSCOPIC)
[2022-04-13 12:41] LABS: Appearance,Urine CLOUDY (Clear); Bilirubin,Urine Negative (Negative); Blood, Urine TRACE-I (Negative); Color,Urine YELLOW (Yellow); Glucose,Urine (UA) Negative (Negative); Ketones,Urine Negative (Negative); Leukocyte Esterase,Urine TRACE (Negative); Nitrate,Urine Negative (Negative); Protein,Urine 2+ (Negative); Specific Gravity, Urine 1.025 (1.005-1.030); Urobilinogen,Urine 0.2 EU/dl (0.2)
[2022-04-13 12:56] LABS: Bacteria,Urine 4+ /lpf; Squamous Epithelial Cell,Urine Occasional #/hpf (0-5)
--- NOTE | 2022-04-13 13:30 | PC.NURSE ---
report to bre adams on second floor at this time, states she will send staff down to transport pt
--- NOTE | 2022-04-13 15:01 | SW/DCPLANNER ---
Addendum entered by Sabrina Strauss 04/14/22 10:47: Patient/son have decided to discharge home with home health services and prefer to use [facility]. Patient information/order has been faxed to [facility]. Patient has also requested a home bedside commode through [facility]: this has been ordered. Patient will discharge home today. Addendum entered by Sabrina Strauss 04/13/22 16:26: Patient/son stated they do not feel safe to return home and prefer to [facility] care. I will fax patient information to Asmita morgan/ [facility] and follow up tomorrow morning. I have updated Dr Valladares. Original Note: I spoke with this patient regarding discharge plans: home health vs placement. PT/OT evaluated this patient and recommended home with home health. Prior to evaluation I discussed discharge plans with patient and her son. Due to patient being COVID positive the only facility available for patient is [facility] in [place]. Patient is NOT interested in placement in [place] but would be willing to go to [facility]. I verified w/ Karina at [facility] that they do NOT accept COVID positive patient's at this time. Patient and son also did think that patient would need more than home health offer. I will follow up with MD then speak with family again regarding discharge plans. I did explain the importance of discussing discharge plans with family and coming up with a safe plan for home if patient is not interested in placement at [facility].
--- NOTE | 2022-04-13 15:11 | HMH.PTEV ---
Physical Therapy Evaluation Rehab PT IP Evaluation Start: 04/13/22 14:09 Freq: ONCE Status: Active Protocol: Document 04/13/22 15:07 PHORRUDOLPH (Rec: 04/13/22 15:11 PHORNE [id number]) Subjective/History History History 76 yowf adm to [facility] with general weakness, found to be COVID+. She reports she was using the restroom and unable to get up which precipitated her son calling 911. She reports she is generally independent with all mobility with a cane and lives alone with no steps to enter the home. Subjective Subjective Pt reports feeling weak, but otherwise has no c/o. Rehab PT IP Eval Objective Appearance Patient Behavior Appropriate Patient Orientation Person,Place,Time Difficulty following instructions none Speech Pattern Clear Ambulation Patient Able to Ambulate Yes Ambulation Observation IP General Gait Pattern Observation Wide Based Gait,Shuffling Step Ambulation Distance (feet) 5 Ambulation Assistive Device None Ambulation Ability Contact Guard/Hand Hold Balance Ability to Arise Able, uses arms to help Sitting Balance Steady, safe Standing Balance Steady, wide stance Dynamic Sitting Balance Ability Good Dynamic Standing Balance Ability Fair Transfers Bed Transfer Ability Contact Guard/Hand Hold Chair Transfer Ability Contact Guard/Hand Hold Sit to Stand Bed Transfer Ability Contact Guard/Hand Hold Sit to Stand Chair Transfer Ability Contact Guard/Hand Hold ROM All Extremities PT ROM Status WFL MMT All Extremities PT MMT WFL Rehab PT IP prob,goals,plan Problems Date of Evaluation: 04/13/22 PT IP Problems Bed Mobility,Transfers,Gait Rehab Potential Rehab Potential Good Plan PT Intervention Plan Bed Mobility,Transfers,Gait, Self care,Therapeutic Exercise PT Plan Frequency BID Duration LOS Discharge Goals Bed Transfer Ability Supervision/Stand by Sit to Stand Chair Transfer Ability Supervision/Stand by Ambulation Assistive Device None Ambulation Distance (feet) 25 Discharge Plan PT Discharge Plan Pt is currently appropriate to return home once medically stable, recommend home health therapy upon d/c.
--- NOTE | 2022-04-13 15:40 | EXP.HPDC ---
General Admission date:: 04/13/22 Discharge date: 04/13/22 *Admission Date: 04/13/22 *Chief complaint: Generalized weakness *History of present illness: Patient is a 76-year-old woman with past medical history of atrial fibrillation, anxiety, COPD, CKD, hypertension, chronic lymphedema, and obesity who comes to the ER for generalized weakness that started yesterday. Patient reports overall not feeling well yesterday. Today she again just felt tired and weak and she was unable to stand up after sitting on the toilet. She called her son to help her stand up and he called 911. Patient reports generalized weakness, cough, otherwise she has no complaints, no chest pain, no shortness of breath, no dizziness or lightheadedness, no headache, no muscle aches, no constipation or diarrhea. Patient reports she was hoping to stay here a few days while she feels weak and then go home. [facility] Disclaimer: The information contained in this section may have been updated after the patient was seen, as this information can be updated by other users. Medical History (Updated 04/13/22 @ 15:56 by Ender Valladares MD) Abnormal computerized axial tomography of chest Dyspnea Dyspnea on exertion PAF (paroxysmal atrial fibrillation) Pulmonary hypertension Pulmonary nodule 1 cm or greater in diameter SOB (shortness of breath) Family History (Updated 04/13/22 @ 15:46 by Elisa Collins RN) Other No significant family history Social History Smoking Status: Never smoker alcohol intake: never substance use type: denies use current occupational status: unemployed and retired Travel in the last 8 weeks: None household members: none housing: house current occupational exposures/hazards: No caffeine: Yes Review of Systems Constitutional Constitutional: Denies chills, Reports fatigue, Denies fever(s), Denies frequent falls, Denies headache(s), Denies poor appetite, Reports lethargy and Reports weakness (Generalized) Eyes Eyes: Denies change in vision ENT Ears, Nose, Mouth, and Throat: Denies dizziness and Denies headache(s) *Cardiovascular Cardiovascular: Denies chest pain, Denies chest pain at rest, Denies chest pain with activity, Denies dyspnea, Denies dyspnea on exertion, Denies edema and Reports leg edema (Chronic lymphedema) *Respiratory Respiratory: Denies chest congestion, Reports cough, Denies dyspnea, Denies dyspnea on exertion, Denies excessive phlegm production, Denies hemoptysis, Denies pain with cough and Denies wheezing *Gastrointestinal Gastrointestinal: Denies abdominal pain, Denies change in bowel habits, Denies constipation and Denies diarrhea *Musculoskeletal Musculoskeletal: Reports abnormal gait (Generalized weakness), Denies back pain, Denies joint swelling, Denies limited range of motion, Reports muscle weakness (Generalized) and Denies myalgias *Neurologic Neurologic: Reports abnormal gait (Generalized weakness), Denies abnormal movements, Denies abnormal speech, Denies confusion, Denies dizziness, Denies localized weakness, Denies frequent falls, Denies headache(s), Denies lack of coordination, Denies memory loss and Reports weakness (Generalized) Psychiatric Psychiatric: Denies confusion, Denies depression and Denies memory loss Endocrine Endocrine: Reports fatigue Allergic/Immunologic Allergic/Immunologic: Denies wheezing Exam Data for Last 24 hours Vital signs and Labs for Last 24 Hours: Temp Pulse Resp BP Pulse Ox 99.0 F 87 18 145/81 H 96 04/13/22 13:55 04/13/22 13:55 04/13/22 13:55 04/13/22 13:55 04/13/22 13:55 Laboratory Results - last 24 hr 04/13/22 10:05: SARS-CoV-2 (PCR) Detected A, Influenza A Untype (PCR) Not detected, Influenza Type B (PCR) Not detected 04/13/22 10:14: WBC 6.9, RBC 4.09 L, Hgb 12.3, Hct 36.7 L, MCV 89.7, MCH 30.2, MCHC 33.6, RDW 14.8, Plt Count 167, MPV 8.8, Neut % (Auto) 72.2, Lymph % (Auto) 19.0, Swisher % (Auto) 7.1,
--- NOTE | 2022-04-13 16:12 | HMH.OTEV ---
OT Inpatient Evaluation Rehab OT IP Evaluation Start: 04/13/22 14:09 Freq: ONCE Status: Active Protocol: Document 04/13/22 16:04 RONALDMELISA (Rec: 04/13/22 16:12 PARRISHMINOO [id number]) Rehab OT IP Assessment Subjective History Patient is a 76-year-old woman with past medical history of atrial fibrillation, anxiety, COPD, CKD, hypertension, chronic lymphedema, and obesity who comes to the ER for generalized weakness that started yesterday. Patient reports overall not feeling well yesterday. Today she again just felt tired and weak and she was unable to stand up after sitting on the toilet . She called her son to help her stand up and he called 911 . Patient reports generalized weakness, cough, otherwise she has no complaints, no chest pain, no shortness of breath, no dizziness or lightheadedness, no headache, no muscle aches, no constipation or diarrhea. Patient reports she was hoping to stay here a few days while she feels weak and then go home. Patient lives alone in 1 story home with 2-3 CANDIE. Patient independent with ADLs and fx'l mobility. Patient will occasionally use cane to ambulate as needed. Family/son lives close by to check on patient daily. Subjective I can try to get up. Instructed Patient on proper hand and foot placement to complete supine->sit EOB requiring Mod A. Patient completed EOB->recliner requiring Mod A. Patient required Max A to emily socks. However Patient stated that she does not wear socks at home, she only wears shoes without soc
--- NOTE | 2022-04-13 19:30 | PC.NURSE ---
pt alert x4. walked pt to the br, standby/1 assist as pt loses balance at times. pt states she does not feel comfortable going home alone, states she has to go up stairs to the bathroom. pt voiced concerns of being by herself, states her son is very busy and she does not want to be a burden on him. lungs clear, non productive cough. cb and personal items within reach.
--- NOTE | 2022-04-14 03:06 | PC.NURSE ---
Pt resting in bed at this time. Has been A/O x 4 this shift. Pt has ambulated to the restroom with standby assist, tolerated well. Lungs where diminished throughout this morning. Resp even and non labored. Pt encouraged to cough and deep breath. IV is patent, pt encouraged to call nurse for any needs. Pt educated on Scheduled medications. Bed locked in low position, side rails up x 2, call light in reach.
[2022-04-14 04:00] VITALS: BP 141/68; PULSE 66; RESP 18; TEMP 37.1; O2SAT 93; BMI 45.1
[2022-04-14 07:30] LABS: Basophils # 0.1 K/mm3 (0-0.2); Basophils % 1.1 % (0.1-2.0); Eosinophils # 0.1 K/mm3 (0.0-0.4); Eosinophils % 1.3 % (0.1-12.0); Hemoglobin 12.2 g/dL (12.2-16.2); Lymphocytes # 1.4 K/mm3 (0.7-4.5); Lymphocytes % 32.5 % (10-50); Mean Corpuscular HGB Conc 33.8 g/dL (31.8-35.4); Mean Corpuscular Hemoglobin 30.3 pg (27.0-31.2); Mean Corpuscular Volume 89.9 fl (81-99); Mean Platelet Volume 8.1 fl (7.4-10.4); Monocytes # 0.5 K/mm3 (0.1-1.0); Monocytes % 10.9 % (1.7-9.3); Neutrophils # 2.3 K/mm3 (1.8-7.8); Neutrophils % 54.2 % (37.0-80.0); Platelet Count 136 K/mm3 (142-424); Red Blood Count 4.01 M/mm3 (4.20-5.40); Red Cell Distribution Width 14.9 % (11.5-17.5); White Blood Count 4.3 K/mm3 (4.8-10.8)
[2022-04-14 07:39] LABS: INR 1.74 (0.9-1.1); Prothrombin Time 18.2 seconds (10.1-12.5)
[2022-04-14 07:44] LABS: Chloride 101 mmol/L (98-107); Potassium 3.8 mmoL/L (3.5-5.1); Sodium 137 mmol/L (136-145)
[2022-04-14 07:47] LABS: Alanine Aminotransferase 19 U/L (12-78); Albumin Level 4.1 g/dl (3.5-5.0); Albumin/Globulin Ratio 1.5 (1.1-1.8); Alkaline Phosphatase 66 U/L (38-126); Anion Gap 14.8 mEq/L (5-15); Aspartate Amino Transferase 36 U/L (14-36); Bilirubin,Total 0.6 mg/dl (0.2-1.3); Blood Urea Nitrogen 17 mg/dl (7-17); Calcium 8.7 mg/dl (8.4-10.2); Carbon Dioxide 25 mmol/L (22.0-30.0); Creatinine Clearance Estimated 25 mL/min (50-200); Estimated Glomerular Filt Rate 36 ml/min (>60); GFR (African American) 44 ML/MIN (>60); Globulin 2.7 g/dL (1.3-3.2); Glucose 112 mg/dl (74-100); Magnesium 1.9 mg/dl (1.6-2.3); Total Protein,Serum 6.8 g/dl (6.3-8.2)
[2022-04-14 08:00] VITALS: BP 151/114; PULSE 83; RESP 18; TEMP 36.8; O2SAT 97
--- NOTE | 2022-04-14 10:42 | EXP.DC.SUM ---
General Admission date:: 04/13/22 Discharge date: 04/14/22 HPI HPI HPI: Patient is a 76-year-old woman with past medical history of atrial fibrillation, anxiety, COPD, CKD, hypertension, chronic lymphedema, and obesity who comes to the ER for generalized weakness that started yesterday.? Patient reports overall not feeling well yesterday.? Today she again just felt tired and weak and she was unable to stand up after sitting on the toilet.? She called her son to help her stand up and he called 911.? Patient reports generalized weakness, cough, otherwise she has no complaints, no chest pain, no shortness of breath, no dizziness or lightheadedness, no headache, no muscle aches, no constipation or diarrhea.? Patient reports she was hoping to stay here a few days while she feels weak and then go home. Hospital Course Hospital Course Hospital Course: Patient was admitted in early afternoon for generalized weakness as noted in HPI.? Physical therapy evaluated patient and found that she had minimal assistance required.? She was able to stand and walk by herself with simple supervision or standby assistance.? Additionally, patient reported she did not want to go to any rehab facilities other than [facility], however [facility] does not accept COVID patients and therefore she was hoping to stay here for rehab.? Patient was advised based on her PT eval she would not be a candidate for inpatient rehab, but a better candidate for home health physical therapy.? She was monitored overnight with IV fluid repletion. Required no oxygen. Creatinine at baseline. Received magnesium for repletion of her hypomagnesemia. Following morning, patient feeling stronger. Ambulated with PT again, this time without any assistance. Stable for discharge home. Case management assisting with coordinating bedside commode as her bathroom is up a few steps and she feels she might have trouble with this. Additionally we will set her up for home health to assist with in-home rehab and nursing care such as bathing. Tolerating p.o. intake. Family comfortable taking her home. Patient reported having no other complaints aside from feeling weak and minimal nonproductive cough. Will send Paxlovid to [facility] pharmacy for OP COVID treatment. Of note, urine concerning for possible UTI. We will treat empirically with Levaquin for 5 days total. Received first dose in the hospital. Exam Data for Last 24 hours Vital signs and Labs for Last 24 Hours: Temp Pulse Resp BP Pulse Ox 98.2 F 83 18 151/114 H 97 04/14/22 08:00 04/14/22 08:00 04/14/22 08:00 04/14/22 08:00 04/14/22 08:00 Laboratory Results - last 24 hr 04/13/22 10:05: SARS-CoV-2 (PCR) Detected A, Influenza A Untype (PCR) Not detected, Influenza Type B (PCR) Not detected 04/13/22 10:14: NT-Pro-B Natriuret Pep 2550 H 04/13/22 10:14: PT 18.9 H, INR 1.81 H 04/13/22 12:36: Urine Color Yellow, Urine Appearance Cloudy, Urine pH 6.0, Ur Specific Merom 1.025, Urine Protein 2+, Urine Glucose (UA) Negative, Urine Ketones Negative, Urine Blood Trace-i, Urine Nitrate Negative, Urine Bilirubin Negative, Urine Urobilinogen 0.2, Ur Leukocyte Esterase Trace, Urine RBC None, Urine WBC 3-5, Ur Squamous Epith Cells Occasional, Urine Bacteria 4+ 04/14/22 07:18: PT 18.2 H, INR 1.74 H 04/14/22 07:18: WBC 4.3 L D, RBC 4.01 L, Hgb 12.2, Hct 36.0 L, MCV 89.9, MCH 30.3, MCHC 33.8, RDW 14.9, Plt Count 136 L, MPV 8.1, Neut % (Auto) 54.2, Lymph % (Auto) 32.5, Daggett % (Auto) 10.9 H, Eos % (Auto) 1.3, Baso % (Auto) 1.1, Neut # (Auto) 2.3, Lymph # (Auto) 1.4, Daggett # (Auto) 0.5, Eos # (Auto) 0.1, Baso # (Auto) 0.1 04/14/22 07:18: Sodium 137, Potassium 3.8, Chloride 101, Carbon Dioxide 25, Anion Gap 14.8, BUN 17, Creatinine 1.40 H, Estimated Creat Clear 25, Estimated GFR 36 L, Est GFR ( Amer) 44 L, Glucose 112 H, Calcium 8.7, Magnesium 1.9 D, Total Bilirubin 0.6, AST 36 D, ALT 19, Alkaline Phosphatase 66, Total Protein 6.8, Albumin 4.1, Globulin 2.7, A
--- NOTE | 2022-04-15 13:52 | CARE MANAGER ---
Contacted patient related to hospital discharge. She picked up her medication and is aware of her follow up appointment. FAHAD Howard
== END 2022-04-14 13:00 | disposition home health service (06) ==
LOC: ER 11:29 → 2ND 13:45
PROVIDERS: Admitting Provider Emergency Medicine; Emergency Provider Emergency Medicine; PCP Internal Medicine Adolescent Medicine; Visit Provider Emergency Medicine
DX: U07.1 COVID-19 (principal); N18.30 Chronic kidney disease, stage 3 unspecified; Z79.01 Long term (current) use of anticoagulants; I89.0 Lymphedema, not elsewhere classified; I48.0 Paroxysmal atrial fibrillation; E66.01 Morbid (severe) obesity due to excess calories; Z68.42 Body mass index [BMI] 45.0-49.9, adult; I27.20 Pulmonary hypertension, unspecified; R06.9 Unspecified abnormalities of breathing; I12.9 Hypertensive chronic kidney disease with stage 1 through stage 4 chronic kidney disease, or unspecified chronic kidney disease
CPT/HCPCS: G0378; 36415; 71045; 80053; 81001; 83735; 83880; 85025; 85610; 87086; 87088; 87186; 93005; 97110; 97116; 97162; 97165; 99285; C9803; J3475; U0003; U0005

== ENCOUNTER 2022-04-23 11:07 | Outpatient (CLI) | payer MEDICARE, SELFPAY ==
[2022-04-23 11:34] LABS: PHA INR Fingerstick 1.8 (0.9-1.1)
== END 2022-04-23 11:36 ==
LOC: ACC 11:07
PROVIDERS: PCP Internal Medicine Adolescent Medicine; Visit Provider Internal Medicine Adolescent Medicine
DX: Z51.81 Encounter for therapeutic drug level monitoring (principal); Z79.01 Long term (current) use of anticoagulants; I48.91 Unspecified atrial fibrillation
CPT/HCPCS: 85610; 99211; G0463

== ENCOUNTER → 2022-05-05 10:30 | Outpatient (POV) | payer MEDICARE, SELFPAY | PROVIDERS: Visit Provider Dermatology | DX: Z00.00 Encounter for general adult medical examination without abnormal findings (principal) ==

== ENCOUNTER 2022-05-11 13:33 | Outpatient (CLI) | payer MEDICARE, SELFPAY ==
[2022-05-11 14:16] LABS: PHA INR Fingerstick 2.9 (0.9-1.1)
== END 2022-05-11 14:17 ==
LOC: ACC 13:34
PROVIDERS: PCP Internal Medicine Adolescent Medicine; Visit Provider Internal Medicine Adolescent Medicine
DX: Z51.81 Encounter for therapeutic drug level monitoring (principal); Z79.01 Long term (current) use of anticoagulants
CPT/HCPCS: 85610; 99211; G0463

== ENCOUNTER 2022-06-24 14:33 | Outpatient (CLI) | payer MEDICARE, SELFPAY ==
[2022-06-24 14:52] LABS: PHA INR Fingerstick 2.8 (0.9-1.1)
== END 2022-06-24 14:53 ==
LOC: ACC 14:34
PROVIDERS: PCP Internal Medicine Adolescent Medicine; Visit Provider Internal Medicine Adolescent Medicine
DX: Z51.81 Encounter for therapeutic drug level monitoring (principal); Z79.01 Long term (current) use of anticoagulants; I48.91 Unspecified atrial fibrillation
CPT/HCPCS: 85610; 99211; G0463

== ENCOUNTER → 2022-07-23 13:01 | Outpatient (CLI) | payer MEDICARE, SELFPAY ==
--- NOTE | 2022-07-23 14:48 | CT_ITS ---
FINAL REPORT TECHNIQUE: Axial images were obtained through the chest without contrast. This study was performed with techniques to keep radiation doses as low as reasonably achievable, (ALARA). Individualized dose reduction techniques using automated exposure control or adjustment of mA and/or kV according to the patient's size were employed. CLINICAL HISTORY: 12 mth F/u - June 2022 COMPARISON: 06/20/2021 FINDINGS: The lungs are clear. There are multiple small scattered mediastinal lymph nodes which are nonspecific and measure up to 11 mm in greatest diameter. The left atrium is mildly enlarged measuring up to 8.5 cm. On the coronal images the ground-glass opacity in the right upper lobe appears slightly larger measuring 2.8 cm in the craniocaudal dimension. The differences are subtle. There is a calcified granuloma in the left lower lobe. Mild ground-glass opacities are noted in the bilateral lungs. IMPRESSION: Abnormal density right upper lobe, perhaps slightly progressed from previous.. Recommend 1 year follow-up. Reviewed, Interpreted and Dictated by Don Zhang MD Transcribed by Judy Luis Authenticated and [facility]
== END ==
PROVIDERS: PCP Internal Medicine Adolescent Medicine; Visit Provider Internal Medicine Pulmonary Disease
DX: R91.8 Other nonspecific abnormal finding of lung field (principal)
CPT/HCPCS: 71250; 94060; 94727; 94729

== ENCOUNTER 2022-08-05 13:44 | Outpatient (CLI) | payer MEDICARE, SELFPAY ==
[2022-08-05 14:59] LABS: PHA INR Fingerstick 2.7 (0.9-1.1)
== END 2022-08-05 16:26 ==
LOC: ACC 13:45
PROVIDERS: PCP Nurse Practitioner Family; Visit Provider Internal Medicine Adolescent Medicine
DX: Z51.81 Encounter for therapeutic drug level monitoring (principal); Z79.01 Long term (current) use of anticoagulants; I48.91 Unspecified atrial fibrillation
CPT/HCPCS: 85610; 99211; G0463

== ENCOUNTER → 2022-08-25 13:51 | Outpatient (POV) | payer MEDICARE, SELFPAY | PROVIDERS: Visit Provider Dermatology | DX: Z00.00 Encounter for general adult medical examination without abnormal findings (principal) ==

== ENCOUNTER 2022-10-07 13:55 | Outpatient (CLI) | payer MEDICARE, SELFPAY ==
[2022-10-07 14:34] LABS: PHA INR Fingerstick 2.9 (0.9-1.1)
== END 2022-10-07 14:50 ==
LOC: ACC 13:56
PROVIDERS: PCP Nurse Practitioner Family; Visit Provider Internal Medicine Adolescent Medicine
DX: Z51.81 Encounter for therapeutic drug level monitoring (principal); Z79.01 Long term (current) use of anticoagulants; I48.91 Unspecified atrial fibrillation
CPT/HCPCS: 85610; 99211; G0463

== ENCOUNTER 2022-11-20 14:16 | Outpatient (CLI) | payer MEDICARE, SELFPAY ==
[2022-11-20 14:58] LABS: PHA INR Fingerstick 2.3 (0.9-1.1)
== END 2022-11-20 15:00 ==
LOC: ACC 14:16
PROVIDERS: PCP Internal Medicine Adolescent Medicine; Visit Provider Internal Medicine Adolescent Medicine
DX: Z79.01 Long term (current) use of anticoagulants (principal); Z51.81 Encounter for therapeutic drug level monitoring; I48.91 Unspecified atrial fibrillation
CPT/HCPCS: 85610; 99211; G0463

== ENCOUNTER 2022-12-19 16:22 | Emergency (ER) | payer MEDICARE, SELFPAY ==
[2022-12-19] VITALS (8 sets, daily range): BP systolic 158–212; BP diastolic 86–108; PULSE 68–90; RESP 15–18; TEMP 36.6–37.1; O2SAT 97–99; BMI 36.6
--- NOTE | 2022-12-19 16:23 | ECG_ITS ---
APPROVED REPORT Exam: Resting ECG HR:70 bpm ECG Measurements Heart Rate 70 AXES QRSd 82 QRS 9 QT 368 T 43 QTc 388 Conclusion ATRIAL FIBRILLATION LOW QRS VOLTAGE IN PRECORDIAL LEADS [QRS DEFLECTION < 1.0 mV IN CHEST LEADS] POSSIBLE ANTERIOR MYOCARDIAL INFARCTION , PROBABLY OLD [30 ms Q WAVE IN V3/V4, OR R < 0.2 mV IN V4] ABNORMAL RHYTHM ECG UNCONFIRMED REPORT Electronically signed by : Oren Pressley MD 12/21/2022 15:53:10
--- NOTE | 2022-12-19 16:25 | PC.NURSE ---
DR CROUCH AT BEDSIDE
--- NOTE | 2022-12-19 16:37 | CT_ITS ---
PROCEDURE INFORMATION: Exam: CT Head Without Contrast Exam date and time: 12/19/2022 5:30 PM Age: 77 years old Clinical indication: Dizziness; Additional info: Vertigo TECHNIQUE: Imaging protocol: Computed tomography of the head without contrast. Radiation optimization: All CT scans at this facility use at least one of these dose optimization techniques: automated exposure control; mA and/or kV adjustment per patient size (includes targeted exams where dose is matched to clinical indication); or iterative reconstruction. REPORTING DATA: Count of CT and Cardiac NM exams in prior 12 months: This patient has received 2 known CTs and 0 known cardiac nuclear medicine studies in the 12 months prior to the current study. COMPARISON: CT HEAD/BRAIN WO CON 06/05/2021 7:17 AM FINDINGS: Brain: No acute infarct. No hemorrhage. Stable involutional changes of the brain. No mass effect. Cerebral ventricles: Stable ventricular size. No ventriculomegaly. Paranasal sinuses: No significant inflammation. No fluid levels. Mastoid air cells: Visualized mastoid air cells are well aerated. Bones/joints: Unremarkable. No acute fracture. Soft tissues: Unremarkable. IMPRESSION: No acute intracranial abnormality.
--- NOTE | 2022-12-19 16:37 | CT_ITS ---
PROCEDURE INFORMATION: Exam: CTA Head With Contrast, Arteriography Exam date and time: 12/19/2022 5:32 PM Age: 77 years old Clinical indication: Vertigo TECHNIQUE: Imaging protocol: Computed tomographic angiography of the head with contrast. Exam focused on the arteries. 3D rendering (Not supervised by radiologist): MIP and/or 3D reconstructed images were created by the technologist. Radiation optimization: All CT scans at this facility use at least one of these dose optimization techniques: automated exposure control; mA and/or kV adjustment per patient size (includes targeted exams where dose is matched to clinical indication); or iterative reconstruction. Contrast material: ISOVUE; Contrast volume: 100 ml; Contrast route: INTRAVENOUS (IV); REPORTING DATA: Count of CT and Cardiac NM exams in prior 12 months: This patient has received 2 known CTs and 0 known cardiac nuclear medicine studies in the 12 months prior to the current study. COMPARISON: CT HEAD/BRAIN WO CON 12/19/2022 5:30 PM FINDINGS: ANTERIOR CIRCULATION: Right internal carotid artery: Atherosclerotic changes right internal carotid with mild stenosis in the cavernous segment. Right middle cerebral artery: No occlusion or significant stenosis. No aneurysm. Right anterior cerebral artery: No occlusion or significant stenosis. No aneurysm. Left internal carotid artery: Atherosclerotic changes left internal carotid with mild stenosis distal cavernous and proximal supraclinoid segment. Left middle cerebral artery: No occlusion or significant stenosis. No aneurysm. Left anterior cerebral artery: No occlusion or significant stenosis. No aneurysm. POSTERIOR CIRCULATION: Right vertebral artery: No occlusion or significant stenosis. No aneurysm. Left vertebral artery: No occlusion or significant stenosis. No aneurysm. Basilar artery: No occlusion or significant stenosis. No aneurysm. Right posterior cerebral artery: No occlusion or significant stenosis. No aneurysm. Left posterior cerebral artery: No occlusion or significant stenosis. No aneurysm. Brain: No definite mass, mass effect, or midline shift. Cerebral ventricles: No ventriculomegaly. Bones/joints: Unremarkable. No acute fracture. Soft tissues: Unremarkable. Other findings: At the origin of the left PICA there is a 3 mm infundibulum favored over small aneurysm present. IMPRESSION: 1. No occlusion or significant stenosis. 2. There is a 3 mm infundibulum favored over small aneurysm at the origin of the left PICA.
--- NOTE | 2022-12-19 16:37 | CT_ITS ---
PROCEDURE INFORMATION: Exam: CTA Neck With Contrast Exam date and time: 12/19/2022 5:32 PM Age: 77 years old Clinical indication: Vertigo TECHNIQUE: Imaging protocol: Computed tomographic angiography of the neck with contrast. 3D rendering (Not supervised by radiologist): MIP and/or 3D reconstructed images were created by the technologist. Radiation optimization: All CT scans at this facility use at least one of these dose optimization techniques: automated exposure control; mA and/or kV adjustment per patient size (includes targeted exams where dose is matched to clinical indication); or iterative reconstruction. Contrast material: ISOVUE; Contrast volume: 100 ml; Contrast route: INTRAVENOUS (IV); REPORTING DATA: Count of CT and Cardiac NM exams in prior 12 months: This patient has received 2 known CTs and 0 known cardiac nuclear medicine studies in the 12 months prior to the current study. COMPARISON: PT PET CT Skull Base to Midthigh 07/19/2020 11:39 AM FINDINGS: Right common carotid artery: No stenosis. No dissection or occlusion. Right internal carotid artery: Atherosclerotic changes are present in the proximal right internal carotid artery without significant stenosis. Distally there is transient retropharyngeal course. Right external carotid artery: No occlusion or stenosis of the origin. Left common carotid artery: No stenosis. No dissection or occlusion. Left internal carotid artery: Atherosclerotic changes are seen in the proximal left internal carotid artery without significant stenosis. There is transient retropharyngeal course present distally. Left external carotid artery: No occlusion or stenosis of the origin. Right vertebral artery: No stenosis. No dissection or occlusion. Left vertebral artery: No stenosis. No dissection or occlusion. Oral cavity: There is enhancing soft tissue mass in the right base of the tongue extending to the tonsillar pillar seen on series 3, image 43 measuring 2.2 x 1.4 cm maximum size. This also extends to the right vallecula which is partially effaced. Lymph nodes: There are multiple subcentimeter lymph nodes seen in the right neck for example in level 5 measuring 8 mm short axis series 3, image 35. Soft tissues: Normal. No significant soft tissue swelling. Bones/joints: No acute fracture. Lungs: There are ground-glass opacities in the visualized portions of the lung apices. IMPRESSION: 1. No occlusion or significant stenosis. 2. Ground-glass opacities are seen in the visualized lung apices. Correlate for possible pulmonary vascular congestion versus pneumonia. 3. Enhancing mass seen in the right base of tongue/tonsillar pillar suspicious for malignancy. Correlation with direct inspection recommended. REFERENCES: NASCET CRITERIA. The degree of stenosis in the cervical segment of the internal carotid artery is based on NASCET criteria. Normal is no stenosis. Mild is less than 50% stenosis. Moderate is 50-69% stenosis. Severe is 70% to 99% stenosis. Total occlusion is no detectable patent lumen.
--- NOTE | 2022-12-19 16:38 | XR_ITS ---
PROCEDURE INFORMATION: Exam: XR Chest Exam date and time: 12/19/2022 5:40 PM Age: 77 years old Clinical indication: Dyspnea TECHNIQUE: Imaging protocol: Radiologic exam of the chest. Views: 1 view. COMPARISON: CT CHEST WO CON 07/23/2022 2:53 PM FINDINGS: Lungs: Bilateral perihilar interstitial infiltrates are present. The lungs are hypoinflated. Pleural spaces: Unremarkable. No pleural effusion. No pneumothorax. Heart/Mediastinum: The heart size is stable. Bones/joints: The bones are stable. IMPRESSION: Bilateral perihilar interstitial infiltrates. Correlate for pulmonary vascular congestion versus pneumonia.
--- NOTE | 2022-12-19 16:41 | HMH.EDGENADL ---
Discharge Plan Disposition Patient Disposition: Home, Self-Care Prescriptions Prescriptions: New meclizine 25 mg tablet 25 mg PO TID PRN (Reason: dizziness) Qty: 20 0RF No Action paroxetine HCl 40 mg tablet 40 mg PO DAILY clonazepam 0.5 mg tablet 0.5 mg PO DAILY rosuvastatin 5 mg tablet 5 mg PO HS Qty: 90 3RF losartan 100 mg tablet See Rx Instructions .ROUTE .COMPLEX Qty: 30 5RF Dose Instruction: TAKE ONE TABLET BY MOUTH ONCE A DAY Rx Instructions: TAKE ONE TABLET BY MOUTH ONCE A DAY albuterol sulfate 90 mcg/actuation HFA aerosol inhaler 2 inh inhalation Q6H PRN (Reason: shortness of breath or wheezing) 90 Days Qty: 8.5 1RF warfarin 5 mg tablet 2.5 mg PO SUTUWETHSA metoprolol succinate 50 mg tablet extended release 24 hr 50 mg PO BID warfarin 5 mg tablet 5 mg PO MOFR Paxlovid 300 mg (150 mg x 2)-100 mg tablets,dose pack See Rx Instructions .ROUTE .COMPLEX Qty: 30 0RF Rx Instructions: take TWO 150 mg tablets of nirmatrelvir with ONE 100 mg tablet of ritonavir twice daily for 5 days ergocalciferol (vitamin D2) 50,000 UNIT capsule 50,000 units PO WEEKLY furosemide 40 MG tablet 40 mg PO DAILY omeprazole 20 MG capsule,delayed release(DR/EC) 40 mg PO DAILY Referrals Follow up/Referrals: Wilfredo Galindo MD [Physician] - See instructions (call for next available appointment for further evaluation of possible tongue mass/malignancy ) Activity Restrictions/Add. Instructions Additional Instructions/Restrictions: There was no central cause of your vertiginous symptoms on CT scan today however there was an incidental tongue mass concerning for possible malignancy that needs to be followed up. A referral to Dr. Galindo has been made please call on Wednesday for next available appointment to have this directly visualized. Your symptoms today are most likely secondary to benign positional vertigo which was improved with the Vicente maneuver. Return with worsening symptoms. Clinical Impressions Clinical Impression: Tongue mass, Benign paroxysmal positional vertigo Instructions Patient Instructions: DI for Diarrhea and Traveler's Diarrhea -- Adult, DI for Diarrhea and Traveler's Diarrhea -- Child, DI for Nausea -- Adult, DI for Nausea -- Child Discharge ED Provider: Scooby Rizzo General Adult HPI General Chief complaint: Nausea/Vomiting/Diarrhea Stated complaint: Dizziness/Nasuea Time Seen by Provider: 12/19/22 16:25 Mode of Arrival: EMS Source of Information: Patient and EMS Limitations: No Limitations Description of Symptoms (Recalled from ER Triage Doc. by RN): PT C/O DIZZINESS AND VOMITING THAT BEGAN THIS AM. DENIES ABDOMINAL PAIN, NO BLOOD IN EMESIS. DENIES FEVER History of Present Illness HPI narrative: 77-year-old female presenting today with vertigo. She states this began at 530 this morning has been associated with movement she had some nausea and vomiting. She denies any changes in coordination or vision changes. She has a mild headache but no other neurologic complaints at this point. She states when she is sitting still she feels well. She states she had a similar episode of this many years ago where she had a maneuver which improved her symptoms. She does have a history of atrial fibrillation is on Coumadin. No history of stroke. Related Data Home Medications Medication Instructions Recorded Confirmed paroxetine HCl 40 mg tablet 40 mg PO DAILY mood 08/08/18 11/04/22 clonazepam 0.5 mg tablet 0.5 mg PO DAILY Anxiety 03/11/20 11/04/22 ergocalciferol (vitamin D2) 1,250 50,000 units PO WEEKLY 08/28/21 11/04/22 mcg (50,000 unit) capsule supplementation furosemide 40 mg tablet 40 mg PO DAILY Fluid 12/02/21 11/04/22 omeprazole 20 mg capsule,delayed 40 mg PO DAILY GERD 12/04/21 11/04/22 release metoprolol succinate 50 mg 50 mg PO BID Hypertension 04/13/22 11/04/22 tablet,extended release 24 hr warfarin 5 mg
[2022-12-19 16:55] LABS: Basophils # 0.1 K/mm3 (0-0.2); Basophils % 0.6 % (0.1-2.0); Eosinophils # 0.1 K/mm3 (0.0-0.4); Eosinophils % 0.8 % (0.1-12.0); Hematocrit 41.2 % (37.0-47.0); Hemoglobin 13.3 g/dL (12.2-16.2); Lymphocytes # 4.1 K/mm3 (0.7-4.5); Lymphocytes % 41.8 % (10-50); Mean Corpuscular HGB Conc 32.4 g/dL (31.8-35.4); Mean Corpuscular Volume 92.5 fl (81-99); Mean Platelet Volume 7.8 fl (7.4-10.4); Monocytes # 0.5 K/mm3 (0.1-1.0); Neutrophils % 51.8 % (37.0-80.0); Platelet Count 168 K/mm3 (142-424); Red Blood Count 4.45 M/mm3 (4.20-5.40); White Blood Count 9.7 K/mm3 (4.8-10.8)
[2022-12-19 16:57] LABS: Chloride 99 mmol/L (98-107); Potassium 4.2 mmoL/L (3.5-5.1); Sodium 137 mmol/L (136-145)
[2022-12-19 17:00] LABS: Alanine Aminotransferase 24 U/L (12-78); Albumin Level 4.3 g/dl (3.5-5.0); Albumin/Globulin Ratio 1.3 (1.1-1.8); Alkaline Phosphatase 80 U/L (38-126); Anion Gap 15.2 mEq/L (5-15); Aspartate Amino Transferase 29 U/L (14-36); Bilirubin,Total 0.7 mg/dl (0.2-1.3); Blood Urea Nitrogen 22 mg/dl (7-17); Calcium 9.7 mg/dl (8.4-10.2); Carbon Dioxide 27 mmol/L (22.0-30.0); Creatinine Clearance Estimated 48 mL/min (50-200); Estimated Glomerular Filt Rate 33 ml/min (>60); GFR (African American) 41 ML/MIN (>60); Globulin 3.2 g/dL (1.3-3.2); Glucose 105 mg/dl (74-100); Total Protein,Serum 7.5 g/dl (6.3-8.2)
[2022-12-19 17:01] LABS: INR 2.57 (0.9-1.1); Prothrombin Time 26.1 seconds (10.1-12.5)
[2022-12-19 17:15] LABS: Troponin I < 0.01 ng/ml (0.00-0.034)
--- NOTE | 2022-12-19 17:15 | PC.NURSE ---
PT TO CT
--- NOTE | 2022-12-19 17:39 | PC.NURSE ---
PT RETURNED FROM CT
--- NOTE | 2022-12-19 17:40 | PC.NURSE ---
Pillow placed under pt knees for comfort. No other needs voiced. Call light within reach.
--- NOTE | 2022-12-19 18:01 | PC.NURSE ---
patient called out for food; MD cervantes for PO. Dietary notified; will bring tray
--- NOTE | 2022-12-19 18:23 | PC.NURSE ---
Dr. Rizzo at to speak with pt/visitor
--- NOTE | 2022-12-19 18:43 | PC.NURSE ---
DR CROUCH AT BEDSIDE TO UPDATE PT AND FAMILY
--- NOTE | 2022-12-19 18:53 | PC.NURSE ---
is aware of pt BP
== END 2022-12-19 19:02 | disposition home or self-care (01) ==
PROVIDERS: Emergency Provider Student in an Organized Health Care Education/Training Program; PCP Nurse Practitioner Family
DX: H81.10 Benign paroxysmal vertigo, unspecified ear (principal); I48.91 Unspecified atrial fibrillation; R11.2 Nausea with vomiting, unspecified; J45.909 Unspecified asthma, uncomplicated; I27.20 Pulmonary hypertension, unspecified
CPT/HCPCS: 70450; 70496; 70498; 71045; 80053; 84484; 85025; 85610; 93005; 96361; 96374; 99285; J0131; Q9967

== ENCOUNTER 2023-01-22 13:54 | Outpatient (CLI) | payer MEDICARE, SELFPAY ==
[2023-01-22 14:34] LABS: PHA INR Fingerstick 2.3 (0.9-1.1)
== END 2023-01-22 14:36 ==
LOC: ACC 13:55
PROVIDERS: PCP Internal Medicine Adolescent Medicine; Visit Provider Internal Medicine Adolescent Medicine
DX: Z79.01 Long term (current) use of anticoagulants (principal); Z51.81 Encounter for therapeutic drug level monitoring; I48.91 Unspecified atrial fibrillation
CPT/HCPCS: 85610; 99211; G0463

== ENCOUNTER 2023-02-19 13:55 | Outpatient (CLI) | payer MEDICARE, SELFPAY ==
[2023-02-19 14:50] LABS: PHA INR Fingerstick 1.7 (0.9-1.1)
== END 2023-02-19 14:52 ==
LOC: ACC 13:57
PROVIDERS: PCP Internal Medicine Adolescent Medicine; Visit Provider Internal Medicine Adolescent Medicine
DX: Z79.01 Long term (current) use of anticoagulants (principal); Z51.81 Encounter for therapeutic drug level monitoring; I48.91 Unspecified atrial fibrillation
CPT/HCPCS: 85610; 99211; G0463

== ENCOUNTER 2023-03-26 13:51 | Outpatient (CLI) | payer MEDICARE, SELFPAY ==
[2023-03-26 16:12] LABS: PHA INR Fingerstick 1.7 (0.9-1.1)
== END 2023-03-26 16:14 ==
PROVIDERS: PCP Nurse Practitioner Family; Visit Provider Internal Medicine Adolescent Medicine
DX: Z79.01 Long term (current) use of anticoagulants (principal); Z51.81 Encounter for therapeutic drug level monitoring; I48.91 Unspecified atrial fibrillation
CPT/HCPCS: 85610; 99211; G0463

== ENCOUNTER 2023-06-11 11:32 | Outpatient (CLI) | payer MEDICARE, SELFPAY ==
[2023-06-11 13:39] LABS: PHA INR Fingerstick 2.3 (0.9-1.1)
== END 2023-06-11 13:41 ==
LOC: ACC 11:34
PROVIDERS: PCP Internal Medicine Adolescent Medicine; Visit Provider Physician Assistant
DX: Z79.01 Long term (current) use of anticoagulants (principal); Z51.81 Encounter for therapeutic drug level monitoring
CPT/HCPCS: 85610; 99211; G0463

== ENCOUNTER 2023-08-12 12:55 | Outpatient (CLI) | payer MEDICARE, SELFPAY ==
--- NOTE | 2023-08-12 12:56 | CT_ITS ---
FINAL REPORT TECHNIQUE: Axial images were obtained from the lung apex to the mid abdomen by computed tomography. This study was performed with techniques to keep radiation doses as low as reasonably achievable, (ALARA). Individualized dose reduction techniques using automated exposure control or adjustment of mA and/or kV according to the patient's size were employed. CLINICAL HISTORY: 12-month follow-up COMPARISON: 07/23/2022 FINDINGS: There are multiple bilateral axillary lymph nodes measuring up to 1.8 cm. There are multiple mediastinal lymph nodes with a subcarinal lymph node measuring up to 2.3 cm. The lymph nodes are more numerous than typically seen. The heart is proper size. There is no pericardial or pleural effusion. Limited images of the upper abdomen demonstrate the patient to be status post cholecystectomy. There is an ill-defined spiculated mass measuring 2.2 cm in the right upper lobe best seen on images 62 through 76 series 3. There is chronic scarring of the lung bases. IMPRESSION: Moderate axillary mediastinal adenopathy. Consider PET/CT for better characterization. Ill-defined density in the posterior right upper lobe measuring 2.2 cm, may be inflammatory or neoplastic. Consider PET CT for better characterization. Reviewed, Interpreted and Dictated by Don Zhang MD Transcribed by TIFFANIE Salinas Authenticated and [facility]
== END 2023-08-12 23:59 | disposition home or self-care (01) ==
LOC: RAD 12:56
PROVIDERS: PCP Nurse Practitioner Family; Visit Provider Internal Medicine Pulmonary Disease
DX: R91.8 Other nonspecific abnormal finding of lung field (principal)
CPT/HCPCS: 71250

== ENCOUNTER 2023-08-24 15:42 | Outpatient (POV) | payer MEDICARE, SELFPAY | END 2023-08-24 23:59 | disposition home or self-care (01) | LOC: SC 15:43 | PROVIDERS: PCP Nurse Practitioner Family; Visit Provider Dermatology | DX: Z00.00 Encounter for general adult medical examination without abnormal findings (principal) ==

== ENCOUNTER 2023-10-06 15:53 | Outpatient (CLI) | payer MEDICARE, SELFPAY ==
[2023-10-06 16:07] LABS: PHA INR Fingerstick 2.1 (0.9-1.1)
== END 2023-10-06 16:09 ==
LOC: ACC 15:54
PROVIDERS: PCP Nurse Practitioner Family; Visit Provider Internal Medicine Adolescent Medicine
DX: Z79.01 Long term (current) use of anticoagulants (principal); Z51.81 Encounter for therapeutic drug level monitoring; I48.91 Unspecified atrial fibrillation
CPT/HCPCS: 85610; 99211; G0463

== ENCOUNTER 2023-11-11 12:54 | Outpatient (CLI) | payer MEDICARE, SELFPAY ==
--- NOTE | 2023-11-11 13:09 | CT_ITS ---
FINAL REPORT TECHNIQUE: Axial images through the chest were performed by computed tomography. This study was performed with techniques to keep radiation doses as low as reasonably achievable, (ALARA). Individualized dose reduction techniques using automated exposure control or adjustment of mA and/or kV according to the patient's size were employed. CLINICAL HISTORY: NONHODGKINS LYMPHOMA COMPARISON: 08/12/2023 FINDINGS: CT CHEST without contrast COMPARISON: 08/12/2023. TECHNIQUE: Axial CT without contrast CT CHEST WITHOUT CONTRAST: FINDINGS: There is an irregular mass in the right lung apex, which was present on the previous CT of July. This mass on today's exam measures 24 x 24 mm in size, was previously 21 x 19 mm in size. No new pulmonary lesions are identified. Changes of emphysema are present. No pleural or pericardial effusion is seen . There is widespread adenopathy in the supraclavicular and infraclavicular areas, the bilateral axillary regions, as well as the mediastinal and hilar regions. The largest right axillary node measures 22 x 13 mm in size, was previously 15 x 8 mm in size. There is a prevascular node anterior to the aortic arch, measuring 13 mm in size, was previously 11 mm in size. An anterior subcarinal node on today's exam measures 20 x 15 mm in size, was previously 20 x 12 mm in size. Other lymph nodes have also mildly increased in number and size. There is celiac axis and portacaval adenopathy present. IMPRESSION: Increase in size and number of axillary, mediastinal, and hilar adenopathy since the prior exam of July 2023 as described. The irregular mass in the right apex has enlarged from 21 x 19 mm in Janet to 24 x 24 mm on today's exam. No new pulmonary parenchymal lesions are seen. Reviewed, Interpreted and Dictated by Richard Trejo MD Transcribed by Enedelia Noe Authenticated and [facility]
--- NOTE | 2023-11-11 13:10 | CT_ITS ---
FINAL REPORT TECHNIQUE: Thin section axial CT images with coronal and sagittal reformats were performed through the neck. This study was performed with techniques to keep radiation doses as low as reasonably achievable (ALARA). Individualized dose reduction techniques using automated exposure control or adjustment of mA and/or kV according to the patient''s size were employed. CLINICAL HISTORY: .non hodgekins lymphoma COMPARISON: 12/19/2022 FINDINGS: The soft tissue mass in the right tongue base and tonsillar pillar has resolved since the prior CT of 2022. Salivary glands are normal. Larynx is unremarkable. Thyroid gland is unremarkable. There is widespread adenopathy involving the jugular chain and posterior triangles bilaterally. A right submandibular node measures 15 x 13 mm, was previously 9 x 7 mm. A right posterior triangle node measures 17 x 13 on today's exam, was previously 12 x 6 mm. Overall all of the cervical nodes show interval enlargement, plus an increase in number with multiple new small nodes identified. There is a right neck base infraclavicular node best seen on image #68, measuring 19 x 16 mm in size, was previously 12 x 10 mm in size. IMPRESSION: There is moderate progression of widespread cervical adenopathy since the prior exam of 2022. This increase is both in size and in number of cervical nodes. The soft tissue mass in the right tongue base and tonsillar pillar has resolved since the prior exam. Reviewed, Interpreted and Dictated by Richard Trejo MD Transcribed by Enedelia Noe Authenticated and . [facility]
== END 2023-11-11 23:59 | disposition home or self-care (01) ==
PROVIDERS: PCP Nurse Practitioner Family; Visit Provider Internal Medicine Hematology & Oncology
DX: Z85.72 Personal history of non-Hodgkin lymphomas (principal)
CPT/HCPCS: 70490; 71250

== ENCOUNTER 2023-11-16 15:31 | Outpatient (POV) | payer MEDICARE, SELFPAY | END 2023-11-16 23:59 | disposition home or self-care (01) | LOC: SC 15:31 | PROVIDERS: PCP Nurse Practitioner Family; Visit Provider Dermatology | DX: Z00.00 Encounter for general adult medical examination without abnormal findings (principal) ==

== ENCOUNTER 2024-01-11 09:51 | Outpatient (CLI) | payer MEDICARE, SELFPAY ==
--- NOTE | 2024-01-11 09:56 | CT_ITS ---
FINAL REPORT TECHNIQUE: Axial images were obtained from the lung apex to the mid abdomen by computed tomography. Coronal reformatted images were obtained. This study was performed with techniques to keep radiation doses as low as reasonably achievable, (ALARA). Individualized dose reduction techniques using automated exposure control or adjustment of mA and/or kV according to the patient's size were employed. This study was performed with techniques to keep radiation doses as low as reasonably achievable, (ALARA). Individualized dose reduction techniques using automated exposure control or adjustment of mA and/or kV according to the patient''s size were employed. CLINICAL HISTORY: HX NON HODGKINS LYMPHOMA COMPARISON: 11/11/2023 FINDINGS: There is stable appearance of the irregular masslike opacity in the right upper lobe measuring up to 22 mm. There are changes from emphysema. No new pulmonary lesions identified. There are trace bilateral pleural effusions. Multiple mildly enlarged lymph nodes are noted in the bilateral axilla. Left axillary lymph node on image 14 measures 15 mm and previously measured 13 mm. A second measured left axillary lymph node on image 25 measures 16 mm and previously measured 13 mm. The largest right axillary node measures 21 x 10 mm and reportedly measured 23 x 13 mm previously. However, prior measurement may have incorporated 2 adjacent lymph nodes. A lower right axillary lymph node measures 17 x 8 mm on image 33, unchanged. There are multiple mildly enlarged mediastinal lymph nodes. A left prevascular lymph node measures 15 mm and previously measured 14 mm. A right precarinal lymph node measures 14 mm and previously measured 12 mm. There is mild retrocrural and abdominal adenopathy. A portacaval lymph node measures 40 x 11 mm and is unchanged. IMPRESSION: Stable to minimally worsening widespread mild adenopathy. Irregular opacity right upper lobe stable and nonspecific for neoplasm or inflammation. Reviewed, Interpreted and Dictated by Richard Trejo MD Transcribed by Judy Luis Authenticated and [facility]
[2024-01-11 10:13] LABS: Basophils # 0.1 K/mm3 (0-0.2); Basophils % 0.7 % (0.1-2.0); Eosinophils # 0.1 K/mm3 (0.0-0.4); Eosinophils % 0.8 % (0.1-12.0); Hematocrit 37.8 % (37.0-47.0); Hemoglobin 11.8 g/dL (12.2-16.2); Lymphocytes % 75.6 % (10-50); Mean Corpuscular HGB Conc 31.1 g/dL (31.8-35.4); Mean Corpuscular Hemoglobin 29.3 pg (27.0-31.2); Mean Corpuscular Volume 94.3 fl (81-99); Monocytes # 0.7 K/mm3 (0.1-1.0); Monocytes % 4.1 % (1.7-9.3); Neutrophils % 18.8 % (37.0-80.0); Platelet Count 180 K/mm3 (142-424); Red Blood Count 4.01 M/mm3 (4.20-5.40); Red Cell Distribution Width 16.3 % (11.5-17.5); White Blood Count 15.9 K/mm3 (4.8-10.8)
[2024-01-11 10:41] LABS: Alanine Aminotransferase 16 U/L (12-78); Albumin Level 4.1 g/dl (3.5-5.0); Albumin/Globulin Ratio 1.8 (1.1-1.8); Alkaline Phosphatase 77 U/L (38-126); Anion Gap 7.1 mEq/L (5-15); Aspartate Amino Transferase 24 U/L (14-36); Bilirubin,Total 0.8 mg/dl (0.2-1.3); Blood Urea Nitrogen 15 mg/dl (7-17); Calcium 8.8 mg/dl (8.4-10.2); Carbon Dioxide 27 mmol/L (22.0-30.0); Chloride 106 mmol/L (98-107); Estimated Glomerular Filt Rate 39 ml/min (>60); GFR (African American) 48 ML/MIN (>60); Globulin 2.3 g/dL (1.3-3.2); Glucose 124 mg/dl (74-100); Lactate Dehydrogenase 178 U/L (313-618); Potassium 4.1 mmoL/L (3.5-5.1); Sodium 136 mmol/L (136-145); Total Protein,Serum 6.4 g/dl (6.3-8.2)
[2024-01-11 10:43] LABS: MANUAL DIFFERENTIAL MANUAL DIFFERENTIAL (MANUAL DIFF)
[2024-01-11 11:43] LABS: Lymphocytes % 85 % (10-50); Neutrophils % 15 % (42-76); Total Cells Counted 100
[2024-01-11 11:44] LABS: Platelet Estimate Normal; RBC Morphology Normal
== END 2024-01-11 23:59 | disposition home or self-care (01) ==
LOC: RAD 09:51
PROVIDERS: PCP Nurse Practitioner Family; Visit Provider Internal Medicine Hematology & Oncology
DX: Z85.72 Personal history of non-Hodgkin lymphomas (principal)
CPT/HCPCS: 36415; 71250; 80053; 83615; 85007; 85025; 85027

== ENCOUNTER 2024-01-17 14:17 | Outpatient (CLI) | payer MEDICARE, SELFPAY ==
[2024-01-17 15:14] LABS: PHA INR Fingerstick 1.8 (0.9-1.1)
== END 2024-01-17 15:15 ==
LOC: ACC 14:18
PROVIDERS: PCP Internal Medicine Adolescent Medicine; Visit Provider Internal Medicine Adolescent Medicine
DX: Z79.01 Long term (current) use of anticoagulants (principal); I48.0 Paroxysmal atrial fibrillation
CPT/HCPCS: 85610; 99211; G0463

== ENCOUNTER 2024-04-21 12:48 | Outpatient (CLI) | payer MEDICARE, SELFPAY ==
[2024-04-21 13:09] LABS: PHA INR Fingerstick 1.7 (0.9-1.1)
== END 2024-04-21 13:10 ==
LOC: ACC 12:50
PROVIDERS: PCP Nurse Practitioner Family; Visit Provider Nurse Practitioner Family
DX: Z79.01 Long term (current) use of anticoagulants (principal); I48.91 Unspecified atrial fibrillation
CPT/HCPCS: 85610; 99211; G0463

== ENCOUNTER 2024-05-24 13:20 | Outpatient (CLI) | payer MEDICARE, SELFPAY ==
[2024-05-25 11:58] LABS: PHA INR Fingerstick 1.3 (0.9-1.1)
== END 2024-05-24 17:00 | disposition home or self-care (01) ==
LOC: ACC 13:21
PROVIDERS: PCP Internal Medicine Adolescent Medicine; Visit Provider Internal Medicine Adolescent Medicine
DX: Z79.01 Long term (current) use of anticoagulants (principal); I48.91 Unspecified atrial fibrillation
CPT/HCPCS: 85610

== ENCOUNTER 2024-06-28 13:55 | Outpatient (CLI) | payer MEDICARE, SELFPAY ==
[2024-06-28 15:15] LABS: PHA INR Fingerstick 1.9 (0.9-1.1)
== END 2024-06-28 15:29 ==
LOC: ACC 13:57
PROVIDERS: PCP Internal Medicine Adolescent Medicine; Visit Provider Internal Medicine Adolescent Medicine
DX: Z79.01 Long term (current) use of anticoagulants (principal); I48.91 Unspecified atrial fibrillation
CPT/HCPCS: 85610; 99211; G0463

== ENCOUNTER 2024-07-24 13:55 | Outpatient (CLI) | payer MEDICARE, SELFPAY ==
[2024-07-24 14:52] LABS: PHA INR Fingerstick 2.3 (0.9-1.1)
--- OUTSIDE RECORDS SUMMARY | 2024-07-27 20:38 | XMS_ITS | Data Portability ---
Author Organization [facility] Address [address] [place] [id number] Care Team Providers Care Tire Installer Name Role Phone LESA COSTA Hematology/Oncology [phone] ADDISON GARSIA JR General Surgeon ZULEYMA HARP Building Maintenance Engineer Assessment Encounter Date Assessment Date Assessment LastModified by Organization Details LastModified Time 08/04/2021 08/04/2021 RTC in 3 months with CBC, CMP, LDH and uric acid. Please give pt copy of labs. [email or web address] Not available 08/04/2021 13:48:52 11/18/2021 11/18/2021 RTC in 3 months with CBC, CMP, LDH and uric acid. Labs today CBC, CMP, LDH and uric acid. [email or web address] Not available 11/18/2021 15:53:34 02/17/2022 02/17/2022 RTC in 3 months with CBC, CMP, LDH and uric acid. Please give pt copy of labs. Please get CT results from [facility]. [email or web address] Not available 02/17/2022 14:52:39 05/26/2022 05/26/2022 RTC in 3 months with CBC, CMP, LDH and uric acid. Please give pt copy of labs. Please get pathology from [facility]. [email or web address] Not available 05/26/2022 14:27:02 09/01/2022 09/01/2022 RTC in 4 months with CBC, CMP, LDH and uric acid. Please give pt copy of labs. [email or web address] Not available 09/01/2022 13:32:17 Plan of Treatment Reminders Order Date Submit Date Provider Last Modified By Organization Details Last Modified Time Details Appointments None record ed. Lab None record ed. Referral None record ed. Procedures None record ed. Surgeries None record ed. Imaging None record ed. Medication Orders None record ed. Patient TargetsNo targets recorded. Patient InstructionsNo instructions recorded. Reason for Referral None Reported. Results Created Date Observation Date Name Description Value Unit Range Abnormal Flag Note LastModifiedBy Organization Detail LastModifiedTime 08/05/19 22 08/04/2021 COMPL ETE BLOOD COUNT white blood cells 6.0 K/uL 3.8-10 .8 normal Not Available [facility] [address] [place] [address], [id number], 08/04/2021 13:14:55 08/05/19 22 08/04/2021 COMPL ETE BLOOD COUNT red blood cells 3.89 M/uL 3.80-5 .20 normal Not Available [facility] [address] [place] [address], [phone], 08/04/2021 13:14:55 08/05/19 22 08/04/2021 COMPL ETE BLOOD COUNT hemoglobin 11.9 g/dL 12.0-1 6.0 low Not Available [facility] [address] [place] [address], [address], 08/04/2021 13:14:55 08/05/19 22 08/04/2021 COMPL ETE BLOOD COUNT hematocrit 36.0 % 35.0-4 7.0 normal Not Available [facility] [address] [place] [address], [address], 08/04/2021 13:14:55 08/05/19 22 08/04/2021 COMPL ETE BLOOD COUNT MCV 93 fL 80-100 normal Not Available [facility] [address] [place] [address], [address], 08/04/2021 13:14:55 08/05/19 22 08/04/2021 COMPL ETE BLOOD COUNT MCH 31 pg 26-35 normal Not Available [facility] [address] [place] [address], [address], 08/04/2021 13:14:55 08/05/19 22 08/04/2021 COMPL ETE BLOOD COUNT MCHC 33 g/dL 32-36 normal Not Available [facility] [address] [place] [address], [address], 08/04/2021 13:14:55 08/05/19 22 08/04/2021 COMPL ETE BLOOD COUNT RDW 15.0 % 11.0-1 5.0 normal Not Available [facility] [address] [place] [address], [address], 08/04/2021 13:14:55 08/05/19 22 08/04/2021 COMPL ETE BLOOD COUNT MPV 7.1 fL 6.2-10 .5 normal Not Available [facility] [address] [place] [address], [address], 08/04/2021 13:14:55 08/05/19 22 08/04/2021 COMPL ETE BLOOD COUNT platelet count 131 K/uL 130-40 0 normal Not Available [facility] [address] [place] [address], [address], 08/04/2021 13:14:55 08/05/19 22 08/04/2021 COMPL ETE BLOOD COUNT neutrophil,a bsolute 4.0 K/uL 1.6-8. 4 normal Not Available [facility] [address] [place] [address], [address], 08/04/2021 13:14:55 08/05/19 22 08/04/2021 COMPL ETE BLOOD COUNT lymphocyte,a bsolute 1.3 K/uL 0.4-5. 1 normal Not Available [facility] [address] [place] [address], [address], 08/04/2021 13:14:55 08/05/19 22 08/04/2021 COMPL ETE BLOOD COUNT monocyte,abs olute 0.4 K/uL 0.0-1. 2 normal Not Available [facility] [address] [place] [address], [address], 08/04/2021 13:14:55 08/05/19 22 08/04/2021 COMPL ETE BLOOD COUNT eosinophil,a bsolute 0.1 K/uL 0.0-0. 8 normal Not Available [facility] [address] [place] [address], [address], 08/04/2021 13:14:55 08/05/19 22 08/04/2021 COMPL ETE BLOOD COUNT basophil,abs olute 0.0 K/uL 0.0-0. 3 normal Not Available [facility] [address] [place] [address], [address], 08/04/2021 13:14:55 08/05/19 22 08/04/2021 COMPL ETE BLOOD COUNT % neutrophils 68.0 % 42.0-7 8.0 normal Not Available [facility] [address] [place] [address], [address], 08/04/2021 13:14:55 08/05/19 22 08/04/2021 COMPL ETE BLOOD COUNT % lymphocytes 21.8 % 11.0-4 7.0 normal Not Available [facility] [address] [place] [address], [address], 08/04/2021 13:14:55 08/05/19 22 08/04/2021 COMPL ETE BLOOD COUNT % monocytes 7.3 % 0.0-11 .0 normal Not Available [facility] [address] [place] [address], [address], 08/04/2021 13:14:55 08/05/19 22 08/04/2021 COMPL ETE BLOOD COUNT % eosinophils 2.1 % 0.0-7. 0 normal Not Available [facility] [address] [place] [address], [address], 08/04/2021 13:14:55 08/05/19 22 08/04/2021 COMPL ETE BLOOD COUNT % basophils 0.8 % 0.0-3. 0 normal Not Available [facility] [address] [place] [address], [address], 08/04/2021 13:14:55 08/05/19 22 08/04/2021 COMPL ETE BLOOD COUNT nucleated red cells 0.1 % 0.0-0. 9 normal Not Available [facility] [address] [place] [address], [address], 08/04/2021 13:14:55 08/05/19 22 08/04/2021 COMPL ETE BLOOD COUNT nucleated RBCs, absolute 0.01 K/uL not estab. normal Not Available [facility] [address] [place] [address], [address], 08/04/2021 13:14:55 08/05/19 22 08/04/2021 COMP. METAB OLIC PANEL glucose 99 mg/dL 74-100 normal Not Available [facility] [address] [place] [address], [address], 08/04/2021 14:32:05 08/05/19 22 08/04/2021 COMP. METAB OLIC PANEL blood urea nitrogen 23 mg/dL 6-20 high Not Available [facility] [address] [place] [address], [address], 08/04/2021 14:32:05 08/05/19 22 08/04/2021 COMP. METAB OLIC PANEL creatinine 1.69 mg/dL 0.50-0 .95 high Not Available [facility] [address] [place] [address], [address], 08/04/2021 14:32:05 08/05/19 22 08/04/2021 COMP. METAB OLIC PANEL BUN/creatini ne ratio 14 (calc ) 10-20 normal Not Available [facility] [address] [place] [address], [address], 08/04/2021 14:32:05 08/05/19 22 08/04/2021 COMP. METAB OLIC PANEL sodium 139 mmol/ L 136-14 5 normal Not Available [facility] [address] [place] [address], [address], 08/04/2021 14:32:05 08/05/19 22 08/04/2021 COMP. METAB OLIC PANEL potassium 4.1 mmol/ L 3.4-5. 0 normal Not Available [facility] [address] [place] [address], [address], 08/04/2021 14:32:05 08/05/19 22 08/04/2021 COMP. METAB OLIC PANEL chloride 105 mmol/ L 98-107 normal Not Available [facility] [address] [place] [address], [address], 08/04/2021 14:32:05 08/05/19 22 08/04/2021 COMP. METAB OLIC PANEL carbon dioxide 20 mmol/ L 22-31 low Not Available [facility] [address] [place] [address], [address], 08/04/2021 14:32:05 08/05/19 22 08/04/2021 COMP. METAB OLIC PANEL anion gap 14 (calc ) 7-25 normal Not Available [facility] [address] [place] [address], [address], 08/04/2021 14:32:05 08/05/19 22 08/04/2021 COMP. METAB OLIC PANEL calcium 9.0 mg/dL 8.6-10 .2 normal Not Available [facility] [address] [place] [address], [address], 08/04/2021 14:32:05 08/05/19 22 08/04/2021 COMP. METAB OLIC PANEL total protein 6.4 g/dL 6.4-8. 3 normal Not Available [facility] [address] [place] [address], [address], 08/04/2021 14:32:05 08/05/19 22 08/04/2021 COMP. METAB OLIC PANEL albumin 3.9 g/dL 3.5-5. 2 normal Not Available [facility] [address] [place] [address], [address], 08/04/2021 14:32:05 08/05/19 22 08/04/2021 COMP. METAB OLIC PANEL globulin 2.5 g/dL_ (calc ) 1.5-4. 5 normal Not Available [facility] [address] [place] [address], [address], 08/04/2021 14:32:05 08/05/19 22 08/04/2021 COMP. METAB OLIC PANEL albumin/glob ulin ratio 1.6 (calc ) 1.1-2. 5 normal Not Available [facility] [address] [place] [address], [address], 08/04/2021 14:32:05 08/05/19 22 08/04/2021 COMP. METAB OLIC PANEL bilirubin, total 0.3 mg/dL 0.1-1. 2 normal Not Available [facility] [address] [place] [address], [address], 08/04/2021 14:32:05 08/05/19 22 08/04/2021 COMP. METAB OLIC PANEL alkaline phosphatase 69 U/L 30-121 normal Not Available [facility] [address] [place] [address], [address], 08/04/2021 14:32:05 08/05/19 22 08/04/2021 COMP. METAB OLIC PANEL AST 11 U/L 0-32 normal Not Available [facility] [address] [place] [address], [address], 08/04/2021 14:32:05 08/05/19 22 08/04/2021 COMP. METAB OLIC PANEL ALT 13 U/L 0-33 normal Not Available [facility] [address] [place] [address], [address], 08/04/2021 14:32:05 08/05/19 22 08/04/2021 COMP. METAB OLIC PANEL GFR 33 >= 60 abnormal Not Available [facility] [address] [place] [address], [address], 08/04/2021 14:32:05 08/05/19 22 08/04/2021 COMP. METAB OLIC PANEL GFR non- 29 >= 60 abnormal NOT E Chron ic kidne y disea se is defin ed as kidne y damag e for more than 3 month s or a GFR less than 60 mL/mi n/1.7 3 m2 for great er than 3 month s. This calcu latio n has not been valid ated in pregn ant women . For pedia tric patie nts refer to Lina [facility] ation https ://heike [email or web address] joseph.o rg/pr ofess ional s/KDO QI/gf r_cal culat orPed Not Available [facility] [address] [place] [address], [address], 08/04/2021 14:32:05 08/05/19 22 08/04/2021 LDH LDH 187 U/L 135-23 3 normal Not Available [facility] [address] [place] [address], [address], 08/04/2021 14:51:42 02/18/20 22 02/17/2022 COMPL ETE BLOOD COUNT white blood cells 6.1 K/uL 3.8-10 .8 normal Not Available [facility] [address] [place] [address], [address], 02/17/2022 12:59:23 02/18/20 22 02/17/2022 COMPL ETE BLOOD COUNT red blood cells 4.03 M/uL 3.80-5 .20 normal Not Available [facility] [address] [place] [address], [address], 02/17/2022 12:59:23 02/18/20 22 02/17/2022 COMPL ETE BLOOD COUNT hemoglobin 12.1 g/dL 12.0-1 6.0 normal Not Available [facility] [address] [place] [address], [address], 02/17/2022 12:59:23 02/18/20 22 02/17/2022 COMPL ETE BLOOD COUNT hematocrit 35.9 % 35.0-4 7.0 normal Not Available [facility] [address] [place] [address], [address], 02/17/2022 12:59:23 02/18/20 22 02/17/2022 COMPL ETE BLOOD COUNT MCV 89 fL 80-100 normal Not Available [facility] [address] [place] [address], [address], 02/17/2022 12:59:23 02/18/20 22 02/17/2022 COMPL ETE BLOOD COUNT MCH 30 pg 26-35 normal Not Available [facility] [address] [place] [address], [address], 02/17/2022 12:59:23 02/18/20 22 02/17/2022 COMPL ETE BLOOD COUNT MCHC 34 g/dL 32-36 normal Not Available [facility] [address] [place] [address], [address], 02/17/2022 12:59:23 02/18/20 22 02/17/2022 COMPL ETE BLOOD COUNT RDW 14.6 % 11.0-1 5.0 normal Not Available [facility] [address] [place] [address], [address], 02/17/2022 12:59:23 02/18/20 22 02/17/2022 COMPL ETE BLOOD COUNT MPV 7.3 fL 6.2-10 .5 normal Not Available [facility] [address] [place] [address], [address], 02/17/2022 12:59:23 02/18/20 22 02/17/2022 COMPL ETE BLOOD COUNT platelet count 180 K/uL 130-40 0 normal Not Available [facility] [address] [place] [address], [address], 02/17/2022 12:59:23 02/18/20 22 02/17/2022 COMPL ETE BLOOD COUNT neutrophil,a bsolute 3.8 K/uL 1.6-8. 4 normal Not Available [facility] [address] [place] [address], [address], 02/17/2022 12:59:23 02/18/20 22 02/17/2022 COMPL ETE BLOOD COUNT lymphocyte,a bsolute 1.6 K/uL 0.4-5. 1 normal Not Available [facility] [address] [place] [address], [address], 02/17/2022 12:59:23 02/18/20 22 02/17/2022 COMPL ETE BLOOD COUNT monocyte,abs olute 0.5 K/uL 0.0-1. 2 normal Not Available [facility] [address] [place] [address], [address], 02/17/2022 12:59:23 02/18/20 22 02/17/2022 COMPL ETE BLOOD COUNT eosinophil,a bsolute 0.1 K/uL 0.0-0. 8 normal Not Available [facility] [address] [place] [address], [address], 02/17/2022 12:59:23 02/18/20 22 02/17/2022 COMPL ETE BLOOD COUNT basophil,abs olute 0.1 K/uL 0.0-0. 3 normal Not Available [facility] [address] [place] [address], [address], 02/17/2022 12:59:23 02/18/20 22 02/17/2022 COMPL ETE BLOOD COUNT % neutrophils 62.4 % 42.0-7 8.0 normal Not Available [facility] [address] [place] [address], [address], 02/17/2022 12:59:23 02/18/20 22 02/17/2022 COMPL ETE BLOOD COUNT % lymphocytes 25.6 % 11.0-4 7.0 normal Not Available [facility] [address] [place] [address], [address], 02/17/2022 12:59:23 02/18/20 22 02/17/2022 COMPL ETE BLOOD COUNT % monocytes 9.0 % 0.0-11 .0 normal Not Available [facility] [address] [place] [address], [address], 02/17/2022 12:59:23 02/18/20 22 02/17/2022 COMPL ETE BLOOD COUNT % eosinophils 2.0 % 0.0-7. 0 normal Not Available [facility] [address] [place] [address], [address], 02/17/2022 12:59:23 02/18/20 22 02/17/2022 COMPL ETE BLOOD COUNT % basophils 1.0 % 0.0-3. 0 normal Not Available [facility] [address] [place] [address], [address], 02/17/2022 12:59:23 02/18/20 22 02/17/2022 COMPL ETE BLOOD COUNT nucleated red cells 0.0 % 0.0-0. 9 normal Not Available [facility] [address] [place] [address], [address], 02/17/2022 12:59:23 02/18/20 22 02/17/2022 COMPL ETE BLOOD COUNT nucleated RBCs, absolute 0.00 K/uL not estab. normal Not Available [facility] [address] [place] [address], [address], 02/17/2022 12:59:23 02/18/20 22 02/17/2022 LDH LDH 163 U/L 135-23 3 normal Not Available [facility] [address] [place] [address], [address], 02/17/2022 13:26:21 02/18/20 22 02/17/2022 COMP. METAB OLIC PANEL glucose 98 mg/dL 74-100 normal Not Available [facility] [address] [place] [address], [address], 02/17/2022 13:26:53 02/18/20 22 02/17/2022 COMP. METAB OLIC PANEL blood urea nitrogen 21 mg/dL 6-20 high Not Available [facility] [address] [place] [address], [address], 02/17/2022 13:26:53 02/18/20 22 02/17/2022 COMP. METAB OLIC PANEL creatinine 1.34 mg/dL 0.50-0 .95 high Not Available [facility] [address] [place] [address], [address], 02/17/2022 13:26:53 02/18/20 22 02/17/2022 COMP. METAB OLIC PANEL BUN/creatini ne ratio 16 (calc ) 10-20 normal Not Available [facility] [address] [place] [address], [address], 02/17/2022 13:26:53 02/18/20 22 02/17/2022 COMP. METAB OLIC PANEL sodium 138 mmol/ L 136-14 5 normal Not Available [facility] [address] [place] [address], [address], 02/17/2022 13:26:53 02/18/20 22 02/17/2022 COMP. METAB OLIC PANEL potassium 4.0 mmol/ L 3.4-5. 0 normal Not Available [facility] [address] [place] [address], [address], 02/17/2022 13:26:53 02/18/20 22 02/17/2022 COMP. METAB OLIC PANEL chloride 103 mmol/ L 98-107 normal Not Available [facility] [address] [place] [address], [address], 02/17/2022 13:26:53 02/18/20 22 02/17/2022 COMP. METAB OLIC PANEL carbon dioxide 24 mmol/ L 22-31 normal Not Available [facility] [address] [place] [address], [address], 02/17/2022 13:26:53 02/18/20 22 02/17/2022 COMP. METAB OLIC PANEL anion gap 11 (calc ) 7-25 normal Not Available [facility] [address] [place] [address], [address], 02/17/2022 13:26:53 02/18/20 22 02/17/2022 COMP. METAB OLIC PANEL calcium 9.1 mg/dL 8.6-10 .2 normal Not Available [facility] [address] [place] [address], [address], 02/17/2022 13:26:53 02/18/20 22 02/17/2022 COMP. METAB OLIC PANEL total protein 6.9 g/dL 6.4-8. 3 normal Not Available [facility] [address] [place] [address], [address], 02/17/2022 13:26:53 02/18/20 22 02/17/2022 COMP. METAB OLIC PANEL albumin 4.2 g/dL 3.5-5. 2 normal Not Available [facility] [address] [place] [address], [address], 02/17/2022 13:26:53 02/18/20 22 02/17/2022 COMP. METAB OLIC PANEL globulin 2.7 g/dL_ (calc ) 1.5-4. 5 normal Not Available [facility] [address] [place] [address], [address], 02/17/2022 13:26:53 02/18/20 22 02/17/2022 COMP. METAB OLIC PANEL albumin/glob ulin ratio 1.6 (calc ) 1.1-2. 5 normal Not Available [facility] [address] [place] [address], [address], 02/17/2022 13:26:53 02/18/20 22 02/17/2022 COMP. METAB OLIC PANEL bilirubin, total 0.4 mg/dL 0.1-1. 2 normal Not Available [facility] [address] [place] [address], [address], 02/17/2022 13:26:53 02/18/20 22 02/17/2022 COMP. METAB OLIC PANEL alkaline phosphatase 79 U/L 30-121 normal Not Available [facility] [address] [place] [address], [address], 02/17/2022 13:26:53 02/18/20 22 02/17/2022 COMP. METAB OLIC PANEL AST 17 U/L 0-32 normal Not Available [facility] [address] [place] [address], [address], 02/17/2022 13:26:53 02/18/20 22 02/17/2022 COMP. METAB OLIC PANEL ALT 15 U/L 0-33 normal Not Available [facility] [address] [place] [address], [address], 02/17/2022 13:26:53 02/18/20 22 02/17/2022 COMP. METAB OLIC PANEL GFR 40 >= 60 abnormal NOT E New calcu latio n for GFR (CKD- EPI 2020) is formu lated witho ut race adjus tment facto rs at the recom menda tion of the Lina Campoverde y Seth atcatherine and Michelle Goetze ty of Nephr ology . This calcu latio n has not been valid ated in pregn ant women . For pedia tric patie nts refer to https ://heike joseph.o rg/pr ofess ional s/KDO QI/gf r_cal culat orPed Not Available [facility] [address] [place] [address], [address], 02/17/2022 13:26:53 02/18/20 22 02/17/2022 URIC ACID uric acid 7.5 mg/dL 2.4-5. 7 high Refer ence range s are based on [place] norms and do not neces leesa slater late with treat ment targe ts. In patie nts with an estab lishe d diagn osis of gout under going Urate Lower ing Thera py (ULT) , the 2011 Michelle can [facility] of Rheum atolo gy Guid cyndi s for Manag ement of Gout recom mend a targe t uric acid level of < 6 mg/dL in all patie nts, or lower in certa in circu mstan my. [facility]thr itis [facility] Vol 64 No 10, 2011 Michelle can [facility] of Rheum atolo gy ----- ----- ----- ----- ----- ----- ----- ----- ----- ----- ----- ---- Not Available [facility] [address] [place] [address], [address], 02/17/2022 13:26:55 05/26/19 23 05/26/2022 COMPL ETE BLOOD COUNT white blood cells 5.6 K/uL 3.8-10 .8 normal Not Available [facility] [address] [place] [address], [address], 05/26/2022 13:25:38 05/26/19 23 05/26/2022 COMPL ETE BLOOD COUNT red blood cells 4.06 M/uL 3.80-5 .20 normal Not Available [facility] [address] [place] [address], [address], 05/26/2022 13:25:38 05/26/19 23 05/26/2022 COMPL ETE BLOOD COUNT hemoglobin 12.0 g/dL 12.0-1 6.0 normal Not Available [facility] [address] [place] [address], [address], 05/26/2022 13:25:38 05/26/19 23 05/26/2022 COMPL ETE BLOOD COUNT hematocrit 36.0 % 35.0-4 7.0 normal Not Available [facility] [address] [place] [address], [address], 05/26/2022 13:25:38 05/26/19 23 05/26/2022 COMPL ETE BLOOD COUNT MCV 89 fL 80-100 normal Not Available [facility] [address] [place] [address], [address], 05/26/2022 13:25:38 05/26/19 23 05/26/2022 COMPL ETE BLOOD COUNT MCH 30 pg 26-35 normal Not Available [facility] [address] [place] [address], [address], 05/26/2022 13:25:38 05/26/19 23 05/26/2022 COMPL ETE BLOOD COUNT MCHC 33 g/dL 32-36 normal Not Available [facility] [address] [place] [address], [address], 05/26/2022 13:25:38 05/26/19 23 05/26/2022 COMPL ETE BLOOD COUNT RDW 15.9 % 11.0-1 5.0 high Not Available [facility] [address] [place] [address], [address], 05/26/2022 13:25:38 05/26/19 23 05/26/2022 COMPL ETE BLOOD COUNT MPV 7.5 fL 6.2-10 .5 normal Not Available [facility] [address] [place] [address], [address], 05/26/2022 13:25:38 05/26/19 23 05/26/2022 COMPL ETE BLOOD COUNT platelet count 176 K/uL 130-40 0 normal Not Available [facility] [address] [place] [address], [address], 05/26/2022 13:25:38 05/26/19 23 05/26/2022 COMPL ETE BLOOD COUNT neutrophil,a bsolute 3.3 K/uL 1.6-8. 4 normal Not Available [facility] [address] [place] [address], [address], 05/26/2022 13:25:38 05/26/19 23 05/26/2022 COMPL ETE BLOOD COUNT lymphocyte,a bsolute 1.7 K/uL 0.4-5. 1 normal Not Available [facility] [address] [place] [address], [address], 05/26/2022 13:25:38 05/26/19 23 05/26/2022 COMPL ETE BLOOD COUNT monocyte,abs olute 0.5 K/uL 0.0-1. 2 normal Not Available [facility] [address] [place] [address], [phone], 05/26/2022 13:25:38 05/26/19 23 05/26/2022 COMPL ETE BLOOD COUNT eosinophil,a bsolute 0.1 K/uL 0.0-0. 8 normal Not Available [facility] [address] [place] [address], [address], 05/26/2022 13:25:38 05/26/19 23 05/26/2022 COMPL ETE BLOOD COUNT basophil,abs olute 0.0 K/uL 0.0-0. 3 normal Not Available [facility] [address] [place] [address], [address], 05/26/2022 13:25:38 05/26/19 23 05/26/2022 COMPL ETE BLOOD COUNT % neutrophils 59.0 % 42.0-7 8.0 normal Not Available [facility] [address] [place] [address], [address], 05/26/2022 13:25:38 05/26/19 23 05/26/2022 COMPL ETE BLOOD COUNT % lymphocytes 30.6 % 11.0-4 7.0 normal Not Available [facility] [address] [place] [address], [address], 05/26/2022 13:25:38 05/26/19 23 05/26/2022 COMPL ETE BLOOD COUNT % monocytes 8.1 % 0.0-11 .0 normal Not Available [facility] [address] [place] [address], [address], 05/26/2022 13:25:38 05/26/19 23 05/26/2022 COMPL ETE BLOOD COUNT % eosinophils 1.7 % 0.0-7. 0 normal Not Available [facility] [address] [place] [address], [address], 05/26/2022 13:25:38 05/26/19 23 05/26/2022 COMPL ETE BLOOD COUNT % basophils 0.6 % 0.0-3. 0 normal Not Available [facility] [address] [place] [address], [address], 05/26/2022 13:25:38 05/26/19 23 05/26/2022 COMPL ETE BLOOD COUNT nucleated red cells 0.0 % 0.0-0. 9 normal Not Available [facility] [address] [place] [address], [address], 05/26/2022 13:25:38 05/26/19 23 05/26/2022 COMPL ETE BLOOD COUNT nucleated RBCs, absolute 0.00 K/uL not estab. normal Not Available [facility] [address] [place] [address], [address], 05/26/2022 13:25:38 05/26/19 23 05/26/2022 LDH LDH 155 U/L 135-23 3 normal Not Available [facility] [address] [place] [address], [address], 05/26/2022 13:51:16 05/26/19 23 05/26/2022 COMP. METAB OLIC PANEL glucose 116 mg/dL 74-100 high Not Available [facility] [address] [place] [address], [address], 05/26/2022 13:54:17 05/26/19 23 05/26/2022 COMP. METAB OLIC PANEL blood urea nitrogen 22 mg/dL 6-20 high Not Available [facility] [address] [place] [address], [address], 05/26/2022 13:54:17 05/26/19 23 05/26/2022 COMP. METAB OLIC PANEL creatinine 1.15 mg/dL 0.50-0 .95 high Not Available [facility] [address] [place] [address], [address], 05/26/2022 13:54:17 05/26/19 23 05/26/2022 COMP. METAB OLIC PANEL BUN/creatini ne ratio 19 (calc ) 10-20 normal Not Available [facility] [address] [place] [address], [address], 05/26/2022 13:54:17 05/26/19 23 05/26/2022 COMP. METAB OLIC PANEL sodium 140 mmol/ L 136-14 5 normal Not Available [facility] [address] [place] [address], [address], 05/26/2022 13:54:17 05/26/19 23 05/26/2022 COMP. METAB OLIC PANEL potassium 4.4 mmol/ L 3.4-5. 0 normal Not Available [facility] [address] [place] [address], [address], 05/26/2022 13:54:17 05/26/19 23 05/26/2022 COMP. METAB OLIC PANEL chloride 104 mmol/ L 98-107 normal Not Available [facility] [address] [place] [address], [address], 05/26/2022 13:54:17 05/26/19 23 05/26/2022 COMP. METAB OLIC PANEL carbon dioxide 25 mmol/ L 22-31 normal Not Available [facility] [address] [place] [address], [address], 05/26/2022 13:54:17 05/26/19 23 05/26/2022 COMP. METAB OLIC PANEL anion gap 11 (calc ) 7-25 normal Not Available [facility] [address] [place] [address], [address], 05/26/2022 13:54:17 05/26/19 23 05/26/2022 COMP. METAB OLIC PANEL calcium 9.5 mg/dL 8.6-10 .2 normal Not Available [facility] [address] [place] [address], [address], 05/26/2022 13:54:17 05/26/19 23 05/26/2022 COMP. METAB OLIC PANEL total protein 7.0 g/dL 6.4-8. 3 normal Not Available [facility] [address] [place] [address], [address], 05/26/2022 13:54:17 05/26/19 23 05/26/2022 COMP. METAB OLIC PANEL albumin 4.3 g/dL 3.5-5. 2 normal Not Available [facility] [address] [place] [address], [address], 05/26/2022 13:54:17 05/26/19 23 05/26/2022 COMP. METAB OLIC PANEL globulin 2.7 g/dL_ (calc ) 1.5-4. 5 normal Not Available [facility] [address] [place] [address], [address], 05/26/2022 13:54:17 05/26/19 23 05/26/2022 COMP. METAB OLIC PANEL albumin/glob ulin ratio 1.6 (calc ) 1.1-2. 5 normal Not Available [facility] [address] [place] [address] [place], [address], 05/26/2022 13:54:17 05/26/19 23 05/26/2022 COMP. METAB OLIC PANEL bilirubin, total 0.4 mg/dL 0.1-1. 2 normal Not Available [facility] [address] [place] [address], [address], 05/26/2022 13:54:17 05/26/19 23 05/26/2022 COMP. METAB OLIC PANEL alkaline phosphatase 71 U/L 30-121 normal Not Available [facility] [address] [place] [address], [address], 05/26/2022 13:54:17 05/26/19 23 05/26/2022 COMP. METAB OLIC PANEL AST 18 U/L 0-32 normal Not Available [facility] [address] [place] [address], [address], 05/26/2022 13:54:17 05/26/19 23 05/26/2022 COMP. METAB OLIC PANEL ALT 15 U/L 0-33 normal Not Available [facility] [address] [place] [address], [address], 05/26/2022 13:54:17 05/26/19 23 05/26/2022 COMP. METAB OLIC PANEL GFR 49 >= 60 abnormal NOT E New calcu latio n for GFR (CKD- EPI 2020) is formu lated witho ut race adjus tment facto rs at the recom menda tion of the [employer] and [employer]i can Socie ty of Nephr ology . This calcu latio n has not been valid ated in pregn ant women . For pedia dina patie nts refer to https ://heike joseph.o shanon/pr lia adorno s/KDO QI/gf r_cal culat orPed Not Available [facility] [address] [place] [address], [address], 05/26/2022 13:54:17 05/26/19 23 05/26/2022 URIC ACID uric acid 8.9 mg/dL 2.4-5. 7 high Refer ence range s are based on [place] [facility] norms and do not neces leesa slater late with treat ment targe ts. In patie nts with an estab lishe d diagn osis of gout under going Urate Lower ing Thera py (ULT) , the 2011 Michelle can Colle ge of Rheum atolo gy Guid cyndi s for Manag ement of Gout recom mend a targe t uric acid level of < 6 mg/dL in all patie nts, or lower in certa in circu mstan my. [facility]r itis Care [facility] Vol 64 No 10, 2011 Michelle can Colle ge of Rheum atolo gy ----- ----- ----- ----- ----- ----- ----- ----- ----- ----- ----- ---- Not Available [facility] [address] [place] [address], [address], 05/26/2022 13:54:18 09/02/19 23 09/01/2022 COMPL ETE BLOOD COUNT white blood cells 6.8 10*3/ uL 3.8-10 .8 normal Not Available [facility] [address] [place] [address], [address], 09/01/2022 12:52:29 09/02/19 23 09/01/2022 COMPL ETE BLOOD COUNT red blood cells 4.15 10*6/ uL 3.80-5 .20 normal Not Available [facility] [address] [place] [address], [address], 09/01/2022 12:52:29 09/02/19 23 09/01/2022 COMPL ETE BLOOD COUNT hemoglobin 12.5 g/dL 12.0-1 6.0 normal Not Available [facility] [address] [place] [address], [address], 09/01/2022 12:52:29 09/02/19 23 09/01/2022 COMPL ETE BLOOD COUNT hematocrit 37.0 % 35.0-4 7.0 normal Not Available [facility] [address] [place] [address], [address], 09/01/2022 12:52:29 09/02/19 23 09/01/2022 COMPL ETE BLOOD COUNT MCV 89 fL 80-100 normal Not Available [facility] [address] [place] [address], [address], 09/01/2022 12:52:29 09/02/19 23 09/01/2022 COMPL ETE BLOOD COUNT MCH 30 pg 26-35 normal Not Available [facility] [address] [place] [address], [address], 09/01/2022 12:52:29 09/02/19 23 09/01/2022 COMPL ETE BLOOD COUNT MCHC 34 g/dL 32-36 normal Not Available [facility] [address] [place] [address], [address], 09/01/2022 12:52:29 09/02/1909/01/2022 COMPL ETE BLOOD COUNT RDW 14.1 % 11.0-1 5.0 normal Not Available [facility] [address] [place] [address], [address], 09/01/2022 12:52:29 09/02/19 23 09/01/2022 COMPL ETE BLOOD COUNT MPV 7.5 fL 6.2-10 .5 normal Not Available [facility] [address] [place] [address], [address], 09/01/2022 12:52:29 09/02/1909/01/2022 COMPL ETE BLOOD COUNT platelet count 194 10*3/ uL 130-40 0 normal Not Available [facility] [address] [place] [address], [address], 09/01/2022 12:52:29 09/02/19 23 09/01/2022 COMPL ETE BLOOD COUNT neutrophil,a bsolute 4.0 10*3/ uL 1.6-8. 4 normal Not Available [facility] [address] [place] [address], [address], 09/01/2022 12:52:29 09/02/19 23 09/01/2022 COMPL ETE BLOOD COUNT lymphocyte,a bsolute 2.0 10*3/ uL 0.4-5. 1 normal Not Available [facility] [address] [place] [address], [address], 09/01/2022 12:52:29 09/02/1909/01/2022 COMPL ETE BLOOD COUNT monocyte,abs olute 0.5 10*3/ uL 0.0-1. 2 normal Not Available [facility] [address] [place] [address], [address], 09/01/2022 12:52:29 09/02/19 23 09/01/2022 COMPL ETE BLOOD COUNT eosinophil,a bsolute 0.2 10*3/ uL 0.0-0. 8 normal Not Available [facility] [address] [place] [address], [address], 09/01/2022 12:52:29 09/02/1909/01/2022 COMPL ETE BLOOD COUNT basophil,abs olute 0.1 10*3/ uL 0.0-0. 3 normal Not Available [facility] [address] [place] [address], [address], 09/01/2022 12:52:29 09/02/1909/01/2022 COMPL ETE BLOOD COUNT % neutrophils 59.2 % 42.0-7 8.0 normal Not Available [facility] [address] [place] [address], [address], 09/01/2022 12:52:29 09/02/1909/01/2022 COMPL ETE BLOOD COUNT % lymphocytes 29.7 % 11.0-4 7.0 normal Not Available [facility] [address] [place] [address], [address], 09/01/2022 12:52:29 09/02/19 23 09/01/2022 COMPL ETE BLOOD COUNT % monocytes 7.7 % 0.0-11 .0 normal Not Available [facility] [address] [place] [address], [address], 09/01/2022 12:52:29 09/02/19 23 09/01/2022 COMPL ETE BLOOD COUNT % eosinophils 2.6 % 0.0-7. 0 normal Not Available [facility] [address] [place] [address], [address], 09/01/2022 12:52:29 09/02/19 23 09/01/2022 COMPL ETE BLOOD COUNT % basophils 0.8 % 0.0-3. 0 normal Not Available [facility] [address] [place] [address], [address], 09/01/2022 12:52:29 09/02/1909/01/2022 COMPL ETE BLOOD COUNT nucleated red cells 0.0 % 0.0-0. 9 normal Not Available [facility] [address] [place] [address], [address], 09/01/2022 12:52:29 09/02/1909/01/2022 COMPL ETE BLOOD COUNT nucleated RBCs, absolute 0.00 10*3/ uL not estab. normal Not Available [facility] [address] [place] [address], [address], 09/01/2022 12:52:29 09/02/1909/01/2022 COMP. METAB OLIC PANEL glucose 121 mg/dL 74-100 high Not Available [facility] [address] [place] [address], [address], 09/01/2022 13:03:18 09/02/19 23 09/01/2022 COMP. METAB OLIC PANEL blood urea nitrogen 18 mg/dL 6-20 normal Not Available [facility] [address] [place] [address], [address], 09/01/2022 13:03:18 09/02/19 23 09/01/2022 COMP. METAB OLIC PANEL creatinine 1.32 mg/dL 0.50-0 .95 high Not Available [facility] [address] [place] [address], [address], 09/01/2022 13:03:18 09/02/19 23 09/01/2022 COMP. METAB OLIC PANEL BUN/creatini ne ratio 14 (calc ) 10-20 normal Not Available [facility] [address] [place] [address], [address], 09/01/2022 13:03:18 09/02/19 23 09/01/2022 COMP. METAB OLIC PANEL sodium 137 mmol/ L 136-14 5 normal Not Available [facility] [address] [place] [address], [address], 09/01/2022 13:03:18 09/02/19 23 09/01/2022 COMP. METAB OLIC PANEL potassium 4.1 mmol/ L 3.4-5. 0 normal Not Available [facility] [address] [place] [address], [address], 09/01/2022 13:03:18 09/02/19 23 09/01/2022 COMP. METAB OLIC PANEL chloride 99 mmol/ L 98-107 normal Not Available [facility] [address] [place] [address], [address], 09/01/2022 13:03:18 09/02/19 23 09/01/2022 COMP. METAB OLIC PANEL carbon dioxide 25 mmol/ L 22-31 normal Not Available [facility] [address] [place] [address], [address], 09/01/2022 13:03:18 09/02/19 23 09/01/2022 COMP. METAB OLIC PANEL anion gap 13 (calc ) 7-25 normal Not Available [facility] [address] [place] [address], [address], 09/01/2022 13:03:18 09/02/19 23 09/01/2022 COMP. METAB OLIC PANEL calcium 9.5 mg/dL 8.6-10 .2 normal Not Available [facility] [address] [place] [address], [address], 09/01/2022 13:03:18 09/02/19 23 09/01/2022 COMP. METAB OLIC PANEL total protein 7.3 g/dL 6.4-8. 3 normal Not Available [facility] [address] [place] [address], [address], 09/01/2022 13:03:18 09/02/19 23 09/01/2022 COMP. METAB OLIC PANEL albumin 4.3 g/dL 3.5-5. 2 normal Not Available [facility] [address] [place] [address], [address], 09/01/2022 13:03:18 09/02/19 23 09/01/2022 COMP. METAB OLIC PANEL globulin 3.0 1.5-4. 5 normal Not Available [facility] [address] [place] [address], [address], 09/01/2022 13:03:18 09/02/19 23 09/01/2022 COMP. METAB OLIC PANEL albumin/glob ulin ratio 1.4 (calc ) 1.1-2. 5 normal Not Available [facility] [address] [place] [address], [address], 09/01/2022 13:03:18 09/02/19 23 09/01/2022 COMP. METAB OLIC PANEL bilirubin, total 0.8 mg/dL 0.1-1. 2 normal Not Available [facility] [address] [place] [address], [address], 09/01/2022 13:03:18 09/02/19 23 09/01/2022 COMP. METAB OLIC PANEL alkaline phosphatase 67 U/L 30-121 normal Not Available [facility] [address] [place], [address], 09/01/2022 13:03:18 09/02/19 23 09/01/2022 COMP. METAB OLIC PANEL AST 15 U/L 0-32 normal Not Available [facility] [address] [place], [address], 09/01/2022 13:03:18 09/02/19 23 09/01/2022 COMP. METAB OLIC PANEL ALT 8 U/L 0-33 normal Not Available [facility] [address] [place], [address], 09/01/2022 13:03:18 09/02/19 23 09/01/2022 COMP. METAB OLIC PANEL GFR 41 >= 60 abnormal NOT E New calcu latio n for GFR (CKD- EPI 2020) is formu lated witho ut race adjus tment facto rs at the recom menda tion of the [employer] Camp[employer] Seth atcatherine and [place] pu[place] [employer] ty of Nephr ology . This calcu latio n has not been valid ated in pregn ant women . For pedia tric patie nts refer to https ://heike joseph.o rg/pr lia alexanderal s/KDO QI/gf r_cal culat orPed Not Available [facility] [address] [place], [address], 09/01/2022 13:03:18 09/02/19 23 09/01/2022 URIC ACID uric acid 8.4 mg/dL 2.4-5. 7 high Refer ence range s are based on popul ation norms and do not neces leesa slater late with treat ment targe ts. In patie nts with an estab lishe d diagn osis of gout under going Urate Lower ing Thera py (ULT) , the 2011 Michelle puentes Colle ge of Rheum atolo gy James brizuela for Manag ement of Gout recom mend a targe t uric acid level of < 6 mg/dL in all patie nts, or lower in certa in circu mstan my. [facility]r it[facility] Care [facility] Vol 64 No 10, 2011 Michelle puentes Colle ge of Rheum atolo gy ----- ----- ----- ----- ----- ----- ----- ----- ----- ----- ----- ---- Not Available [facility] [address] [place] [address], [address], 09/01/2022 13:03:19 09/02/19 23 09/01/2022 LDH LDH 172 U/L 135-23 3 normal Not Available [facility] [address] [place] [address], [address], 09/01/2022 13:20:20 01/13/20 23 01/12/2023 COMP. METAB OLIC PANEL glucose 109 mg/dL 74-100 high Not Available [facility] [address] [place] [address], [address], 01/12/2023 15:02:07 01/13/20 23 01/12/2023 COMP. METAB OLIC PANEL blood urea nitrogen 19 mg/dL 6-20 normal Not Available [facility] [address] [place] [address], [address], 01/12/2023 15:02:07 01/13/20 23 01/12/2023 COMP. METAB OLIC PANEL creatinine 1.35 mg/dL 0.50-0 .95 high Not Available [facility] [address] [place] [address], [address], 01/12/2023 15:02:07 01/13/20 23 01/12/2023 COMP. METAB OLIC PANEL BUN/creatini ne ratio 14 (calc ) 10-20 normal Not Available [facility] [address] [place] [address], [address], 01/12/2023 15:02:07 01/13/20 23 01/12/2023 COMP. METAB OLIC PANEL sodium 139 mmol/ L 136-14 5 normal Not Available [facility] [address] [place] [address], [address], 01/12/2023 15:02:07 01/13/20 23 01/12/2023 COMP. METAB OLIC PANEL potassium 4.5 mmol/ L 3.4-5. 0 normal Not Available [facility] [address] [place] [address], [address], 01/12/2023 15:02:07 01/13/20 23 01/12/2023 COMP. METAB OLIC PANEL chloride 104 mmol/ L 98-107 normal Not Available [facility] [address] [place] [address], [address], 01/12/2023 15:02:07 01/13/20 23 01/12/2023 COMP. METAB OLIC PANEL carbon dioxide 24 mmol/ L 22-31 normal Not Available [facility] [address] [place] [address], [address], 01/12/2023 15:02:07 01/13/20 23 01/12/2023 COMP. METAB OLIC PANEL anion gap 11 (calc ) 7-25 normal Not Available [facility] [address] [place] [address], [address], 01/12/2023 15:02:07 01/13/20 23 01/12/2023 COMP. METAB OLIC PANEL calcium 9.1 mg/dL 8.6-10 .2 normal Not Available [facility] [address] [place] [address], [address], 01/12/2023 15:02:07 01/13/20 23 01/12/2023 COMP. METAB OLIC PANEL total protein 6.8 g/dL 6.4-8. 3 normal Not Available [facility] [address] [place] [address], [address], 01/12/2023 15:02:07 01/13/20 23 01/12/2023 COMP. METAB OLIC PANEL albumin 4.2 g/dL 3.5-5. 2 normal Not Available [facility] [address] [place] [address], [address], 01/12/2023 15:02:07 01/13/20 23 01/12/2023 COMP. METAB OLIC PANEL globulin 2.6 1.5-4. 5 normal Not Available [facility] [address] [place] [address], [address], 01/12/2023 15:02:07 01/13/20 23 01/12/2023 COMP. METAB OLIC PANEL albumin/glob ulin ratio 1.6 (calc ) 1.1-2. 5 normal Not Available [facility] [address] [place] [address], [address], 01/12/2023 15:02:07 01/13/20 23 01/12/2023 COMP. METAB OLIC PANEL bilirubin, total 0.6 mg/dL 0.1-1. 2 normal Not Available [facility] [address] [place] [address], [address], 01/12/2023 15:02:07 01/13/20 23 01/12/2023 COMP. METAB OLIC PANEL alkaline phosphatase 63 U/L 30-121 normal Not Available [facility] [address] [place] [address], [address], 01/12/2023 15:02:07 01/13/20 23 01/12/2023 COMP. METAB OLIC PANEL AST 13 U/L 0-32 normal Not Available [facility] [address] [place] [address], [address], 01/12/2023 15:02:07 01/13/20 23 01/12/2023 COMP. METAB OLIC PANEL ALT 10 U/L 0-33 normal Not Available [facility] [address] [place], [address], 01/12/2023 15:02:07 01/13/20 23 01/12/2023 COMP. METAB OLIC PANEL GFR 40 >= 60 abnormal NOT E New calcu latio n for GFR (CKD- EPI 2020) is formu lated witho ut race adjus tment facto rs at the recom menda tion of the Nat[employer]hon Camp[employer] y Seth atcatherine and Michelle Caldera ty of Nephr ology . This calcu latio n has not been valid ated in pregn ant women . For pedia tric patie nts refer to https ://heike morgan.doris joseph.o rg/pr lia adorno s/YARIO QI/gf r_cal culat orPed Not Available [facility] [address] [place], [address], 01/12/2023 15:02:07 01/13/20 23 01/12/2023 URIC ACID uric acid 7.5 mg/dL 2.4-5. 7 high Refer ence range s are based on popul ation norms and do not neces leesa slater late with treat ment targe ts. In patie nts with an estab lishe d diagn osis of gout under going Urate Lower ing Thera py (ULT) , the 2011 Michelle Agustin ge of Rheum atolo gy James hanna s for Manag ement of Gout recom mend a targe t uric acid level of < 6 mg/dL in all patie nts, or lower in certa in circu mstan my. [facility] Vol 64 No 10, 2011 Michelle Agustin ge of Rheum atolo gy ----- ----- ----- ----- ----- ----- ----- ----- ----- ----- ----- ---- Not Available [facility] [address] [place] [address], [address], 01/12/2023 15:02:09 01/13/20 23 01/12/2023 LDH LDH 167 U/L 135-23 3 normal Not Available [facility] [address] [place] [address], [address], 01/12/2023 15:02:55 01/13/20 23 01/12/2023 COMPL ETE BLOOD COUNT white blood cells 7.6 10*3/ uL 3.8-10 .8 normal RESUL TS RECHE CKED Not Available [facility] [address] [place] [address], [address], 01/12/2023 15:09:32 01/13/20 23 01/12/2023 COMPL ETE BLOOD COUNT red blood cells 4.03 10*6/ uL 3.80-5 .20 normal Not Available [facility] [address] [place] [address], [address], 01/12/2023 15:09:32 01/13/20 23 01/12/2023 COMPL ETE BLOOD COUNT hemoglobin 12.0 g/dL 12.0-1 6.0 normal Not Available [facility] [address] [place] [address], [address], 01/12/2023 15:09:32 01/13/20 23 01/12/2023 COMPL ETE BLOOD COUNT hematocrit 36.2 % 35.0-4 7.0 normal Not Available [facility] [address] [place] [address], [address], 01/12/2023 15:09:32 01/13/20 23 01/12/2023 COMPL ETE BLOOD COUNT MCV 90 fL 80-100 normal Not Available [facility] [address] [place] [address], [address], 01/12/2023 15:09:32 01/13/20 23 01/12/2023 COMPL ETE BLOOD COUNT MCH 30 pg 26-35 normal Not Available [facility] [address] [place] [address], [address], 01/12/2023 15:09:32 01/13/20 23 01/12/2023 COMPL ETE BLOOD COUNT MCHC 33 g/dL 32-36 normal Not Available [facility] [address] [place] [address], [phone], 01/12/2023 15:09:32 01/13/20 23 01/12/2023 COMPL ETE BLOOD COUNT RDW 14.8 % 11.0-1 5.0 normal Not Available [facility] [address] [place] [address], [phone], 01/12/2023 15:09:32 01/13/20 23 01/12/2023 COMPL ETE BLOOD COUNT MPV 7.7 fL 6.2-10 .5 normal Not Available [facility] [address] [place] [address], [id number], 01/12/2023 15:09:32 01/13/20 23 01/12/2023 COMPL ETE BLOOD COUNT platelet count 151 10*3/ uL 130-40 0 normal Not Available [facility] [address] [place] [address], [address], 01/12/2023 15:09:32 01/13/20 23 01/12/2023 COMPL ETE BLOOD COUNT neutrophil,a bsolute 4.0 10*3/ uL 1.6-8. 4 normal Not Available [facility] [address] [place] [address], [address], 01/12/2023 15:09:32 01/13/20 23 01/12/2023 COMPL ETE BLOOD COUNT lymphocyte,a bsolute 3.3 10*3/ uL 0.4-5. 1 normal Not Available [facility] [address] [place] [address], [address], 01/12/2023 15:09:32 01/13/20 23 01/12/2023 COMPL ETE BLOOD COUNT monocyte,abs olute 0.2 10*3/ uL 0.0-1. 2 normal Not Available [facility] [address] [place] [address], [address], 01/12/2023 15:09:32 01/13/20 23 01/12/2023 COMPL ETE BLOOD COUNT eosinophil,a bsolute 0.1 10*3/ uL 0.0-0. 8 normal Not Available [facility] [address] [place] [address], [address], 01/12/2023 15:09:32 01/13/20 23 01/12/2023 COMPL ETE BLOOD COUNT basophil,abs olute 0.0 10*3/ uL 0.0-0. 3 normal Not Available [facility] [address] [place] [address], [address], 01/12/2023 15:09:32 01/13/20 23 01/12/2023 COMPL ETE BLOOD COUNT % neutrophils 52.0 % 42.0-7 8.0 normal Not Available [facility] [address] [place] [address], [address], 01/12/2023 15:09:32 01/13/20 23 01/12/2023 COMPL ETE BLOOD COUNT % lymphocytes 44.0 % 11.0-4 7.0 normal Not Available [facility] [address] [place] [address], [address], 01/12/2023 15:09:32 01/13/20 23 01/12/2023 COMPL ETE BLOOD COUNT % monocytes 3.0 % 0.0-11 .0 normal Not Available [facility] [address] [place] [address], [address], 01/12/2023 15:09:32 01/13/20 23 01/12/2023 COMPL ETE BLOOD COUNT % eosinophils 1.0 % 0.0-7. 0 normal Not Available [facility] [address] [place] [address], [address], 01/12/2023 15:09:32 01/13/20 23 01/12/2023 COMPL ETE BLOOD COUNT % basophils 0.0 % 0.0-3. 0 normal Not Available [facility] [address] [place] [address], [address], 01/12/2023 15:09:32 01/13/20 23 01/12/2023 COMPL ETE BLOOD COUNT nucleated red cells 0.0 % 0.0-0. 9 normal Not Available [facility] [address] [place] [address], [address], 01/12/2023 15:09:32 01/13/20 23 01/12/2023 COMPL ETE BLOOD COUNT nucleated RBCs, absolute 0.00 10*3/ uL not estab. normal Not Available [facility] [address] [place] [address], [address], 01/12/2023 15:09:32 01/13/20 23 01/12/2023 MANUA L DIFFE RENTI AL % band neutrophils 0.0 % 0.0-7. 0 normal Not Available [facility] [address] [place] [address], [address], 01/12/2023 15:09:35 01/13/20 23 01/12/2023 MANUA L DIFFE RENTI AL % atypical lymphocytes 0 % 0-1 normal Not Available [facility] [address] [place] [address], [address], 01/12/2023 15:09:35 01/13/20 23 01/12/2023 MANUA L DIFFE RENTI AL % metamyelocyt es 0 % 0-1 normal Not Available [facility] [address] [place] [address], [address], 01/12/2023 15:09:35 01/13/20 23 01/12/2023 MANUA L DIFFE RENTI AL % myelocytes 0 % 0-1 normal Not Available [facility] [address] [place] [address], [address], 01/12/2023 15:09:35 01/13/20 23 01/12/2023 MANUA L DIFFE RENTI AL % promyelocyte s 0 % 0 normal Not Available [facility] [address] [place] [address], [address], 01/12/2023 15:09:35 01/13/20 23 01/12/2023 MANUA L DIFFE RENTI AL % blast 0 % 0 normal Not Available [facility] [address] [place] [address], [address], 01/12/2023 15:09:35 01/13/20 23 01/12/2023 MANUA L DIFFE RENTI AL nucleated red cells 0 /100{ WBC} 0-1 normal Not Available [facility] [address] [place] [address], [address], 01/12/2023 15:09:35 01/13/20 23 01/12/2023 MANUA L DIFFE RENTI AL smudge cells 0 /100{ WBC} 0 normal Not Available [facility] [address] [place] [address], [address], 01/12/2023 15:09:35 01/13/20 23 01/12/2023 MANUA L DIFFE RENTI AL platelet morphology NORMAL normal Not Available [facility] [address] [place] [address], [address], 01/12/2023 15:09:35 01/13/20 23 01/12/2023 MANUA L DIFFE RENTI AL hypochromasi a SLIGHT abnormal Not Available [facility] [address] [place] [address], [address], 01/12/2023 15:09:35 01/13/20 23 01/12/2023 MANUA L DIFFE RENTI AL ovalocytes SLIGHT abnormal Not Available [facility] [address] [place] [address], [address], 01/12/2023 15:09:35 02/10/20 23 02/09/2023 COMP. METAB OLIC PANEL glucose 108 mg/dL 74-100 high Not Available [facility] [address] [place] [address], [address], 02/09/2023 14:33:27 02/10/20 23 02/09/2023 COMP. METAB OLIC PANEL blood urea nitrogen 18 mg/dL 6-20 normal Not Available [facility] [address] [place] [address], [address], 02/09/2023 14:33:27 02/10/20 23 02/09/2023 COMP. METAB OLIC PANEL creatinine 1.31 mg/dL 0.50-0 .95 high Not Available [facility] [address] [place] [address], [address], 02/09/2023 14:33:27 02/10/20 23 02/09/2023 COMP. METAB OLIC PANEL BUN/creatini ne ratio 14 (calc ) 10-20 normal Not Available [facility] [address] [place] [address], [address], 02/09/2023 14:33:27 02/10/20 23 02/09/2023 COMP. METAB OLIC PANEL sodium 136 mmol/ L 136-14 5 normal Not Available [facility] [address] [place] [address], [address], 02/09/2023 14:33:27 02/10/20 23 02/09/2023 COMP. METAB OLIC PANEL potassium 4.1 mmol/ L 3.4-5. 0 normal Not Available [facility] [address] [place] [address], [address], 02/09/2023 14:33:27 02/10/20 23 02/09/2023 COMP. METAB OLIC PANEL chloride 101 mmol/ L 98-107 normal Not Available [facility] [address] [place] [address], [address], 02/09/2023 14:33:27 02/10/20 23 02/09/2023 COMP. METAB OLIC PANEL carbon dioxide 25 mmol/ L 22-31 normal Not Available [facility] [address] [place] [address], [address], 02/09/2023 14:33:27 02/10/20 23 02/09/2023 COMP. METAB OLIC PANEL anion gap 10 (calc ) 7-25 normal Not Available [facility] [address] [place] [address], [address], 02/09/2023 14:33:27 02/10/20 23 02/09/2023 COMP. METAB OLIC PANEL calcium 9.1 mg/dL 8.6-10 .2 normal Not Available [facility] [address] [place] [address], [address], 02/09/2023 14:33:27 02/10/20 23 02/09/2023 COMP. METAB OLIC PANEL total protein 6.8 g/dL 6.4-8. 3 normal Not Available [facility] [address] [place] [address], [address], 02/09/2023 14:33:27 02/10/20 23 02/09/2023 COMP. METAB OLIC PANEL albumin 4.2 g/dL 3.5-5. 2 normal Not Available [facility] [address] [place] [address], [address], 02/09/2023 14:33:27 02/10/20 23 02/09/2023 COMP. METAB OLIC PANEL globulin 2.6 1.5-4. 5 normal Not Available [facility] [address] [place] [address], [address], 02/09/2023 14:33:27 02/10/20 23 02/09/2023 COMP. METAB OLIC PANEL albumin/glob ulin ratio 1.6 (calc ) 1.1-2. 5 normal Not Available [facility] [address] [place] [address], [address], 02/09/2023 14:33:27 02/10/20 23 02/09/2023 COMP. METAB OLIC PANEL bilirubin, total 0.7 mg/dL 0.1-1. 2 normal Not Available [facility] [address] [place], [address], 02/09/2023 14:33:27 02/10/20 23 02/09/2023 COMP. METAB OLIC PANEL alkaline phosphatase 63 U/L 30-121 normal Not Available [facility] [address] [place], [address], 02/09/2023 14:33:27 02/10/20 23 02/09/2023 COMP. METAB OLIC PANEL AST 14 U/L 0-32 normal Not Available [facility] [address] [place] [address], [address], 02/09/2023 14:33:27 02/10/20 23 02/09/2023 COMP. METAB OLIC PANEL ALT 9 U/L 0-33 normal Not Available [facility] [address] [place] [address], [address], 02/09/2023 14:33:27 02/10/20 23 02/09/2023 COMP. METAB OLIC PANEL GFR 41 >= 60 abnormal NOT E New calcu latio n for GFR (CKD- EPI 2020) is formu lated witho ut race adjus tment facto rs at the f f [facility] menda tion of the [facility] of Nephr ology . This calcu latio n has not been valid ated in pregn ant women . For pedia tric patie nts refer to https ://heike joseph.driss claudio/pr lia adorno s/KDO QI/gf r_cal culat orPed Not Available [facility] [address] [place], [address], 02/09/2023 14:33:27 02/10/20 23 02/09/2023 URIC ACID uric acid 7.9 mg/dL 2.4-5. 7 high Refer ence range s are based on [facility] norms and do not neces leesa slater late with treat ment targe ts. In patie nts with an estab lishe d diagn osis of gout under going Urate Lower ing Thera py (ULT) , the 2011 Michelle can [facility] Rheum atolo gy Guid cyndi s for Manag ement of Gout recom mend a targe t uric acid level of < 6 mg/dL in all patie nts, or lower in certa in circu mstan my. Arthr itis [facility] Vol 64 No 10, 2011 Michelle puentes [facility] Rheum atolo gy ----- ----- ----- ----- ----- ----- ----- ----- ----- ----- ----- ---- Not Available [facility] [address] [place], [address], 02/09/2023 14:33:29 02/10/20 23 02/09/2023 LDH LDH 165 U/L 135-23 3 normal Not Available [facility] [address] [place], [address], 02/09/2023 14:47:40 02/10/20 23 02/09/2023 COMPL ETE BLOOD COUNT white blood cells 8.3 10*3/ uL 3.8-10 .8 normal Not Available [facility] [address] [place], [address], 02/09/2023 14:51:28 02/10/20 23 02/09/2023 COMPL ETE BLOOD COUNT red blood cells 4.15 10*6/ uL 3.80-5 .20 normal Not Available [facility] [address] [place] [address], [address], 02/09/2023 14:51:28 02/10/20 23 02/09/2023 COMPL ETE BLOOD COUNT hemoglobin 12.3 g/dL 12.0-1 6.0 normal Not Available [facility] [address] [place] [address], [address], 02/09/2023 14:51:28 02/10/20 23 02/09/2023 COMPL ETE BLOOD COUNT hematocrit 36.5 % 35.0-4 7.0 normal Not Available [facility] [address] [place] [address], [address], 02/09/2023 14:51:28 02/10/20 23 02/09/2023 COMPL ETE BLOOD COUNT MCV 88 fL 80-100 normal Not Available [facility] [address] [place] [address], [address], 02/09/2023 14:51:28 02/10/20 23 02/09/2023 COMPL ETE BLOOD COUNT MCH 30 pg 26-35 normal Not Available [facility] [address] [place] [address], [address], 02/09/2023 14:51:28 02/10/20 23 02/09/2023 COMPL ETE BLOOD COUNT MCHC 34 g/dL 32-36 normal Not Available [facility] [address] [place] [address], [address], 02/09/2023 14:51:28 02/10/20 23 02/09/2023 COMPL ETE BLOOD COUNT RDW 14.5 % 11.0-1 5.0 normal Not Available [facility] [address] [place] [address], [address], 02/09/2023 14:51:28 02/10/20 23 02/09/2023 COMPL ETE BLOOD COUNT MPV 7.6 fL 6.2-10 .5 normal Not Available [facility] [address] [place] [address], [address], 02/09/2023 14:51:28 02/10/20 23 02/09/2023 COMPL ETE BLOOD COUNT platelet count 184 10*3/ uL 150-40 0 normal Not Available [facility] [address] [place] [address], [address], 02/09/2023 14:51:28 02/10/20 23 02/09/2023 COMPL ETE BLOOD COUNT neutrophil,a bsolute 4.2 10*3/ uL 1.6-8. 4 normal Not Available [facility] [address] [place] [address], [address], 02/09/2023 14:51:28 02/10/20 23 02/09/2023 COMPL ETE BLOOD COUNT lymphocyte,a bsolute 2.9 10*3/ uL 0.4-5. 1 normal Not Available [facility] [address] [place] [address], [address], 02/09/2023 14:51:28 02/10/20 23 02/09/2023 COMPL ETE BLOOD COUNT monocyte,abs olute 0.7 10*3/ uL 0.0-1. 2 normal Not Available [facility] [address] [place] [address], [address], 02/09/2023 14:51:28 02/10/20 23 02/09/2023 COMPL ETE BLOOD COUNT eosinophil,a bsolute 0.2 10*3/ uL 0.0-0. 8 normal Not Available [facility] [address] [place] [address], [address], 02/09/2023 14:51:28 02/10/20 23 02/09/2023 COMPL ETE BLOOD COUNT basophil,abs olute 0.0 10*3/ uL 0.0-0. 3 normal Smear revie wed to confi rm cell morph ology . Not Available [facility] [address] [place] [address], [address], 02/09/2023 14:51:28 02/10/20 23 02/09/2023 COMPL ETE BLOOD COUNT % neutrophils 50.0 % 42.0-7 8.0 normal Not Available [facility] [address] [place] [address], [address], 02/09/2023 14:51:28 02/10/20 23 02/09/2023 COMPL ETE BLOOD COUNT % lymphocytes 35.0 % 11.0-4 7.0 normal Not Available [facility] [address] [place] [address], [address], 02/09/2023 14:51:28 02/10/20 23 02/09/2023 COMPL ETE BLOOD COUNT % monocytes 9.0 % 0.0-11 .0 normal Not Available [facility] [address] [place] [address], [address], 02/09/2023 14:51:28 02/10/20 23 02/09/2023 COMPL ETE BLOOD COUNT % eosinophils 2.0 % 0.0-7. 0 normal Not Available [facility] [address] [place] [address], [address], 02/09/2023 14:51:28 02/10/20 23 02/09/2023 COMPL ETE BLOOD COUNT % basophils 0.0 % 0.0-3. 0 normal Not Available [facility] [address] [place] [address], [address], 02/09/2023 14:51:28 02/10/20 23 02/09/2023 COMPL ETE BLOOD COUNT nucleated red cells 0.2 % 0.0-0. 9 normal Not Available [facility] [address] [place] [address], [address], 02/09/2023 14:51:28 02/10/20 23 02/09/2023 COMPL ETE BLOOD COUNT nucleated RBCs, absolute 0.01 10*3/ uL not estab. normal Not Available [facility] [address] [place] [address], [address], 02/09/2023 14:51:28 02/10/20 23 02/09/2023 MANUA L DIFFE RENTI AL % band neutrophils 0.0 % 0.0-7. 0 normal Not Available [facility] [address] [place] [address], [address], 02/09/2023 14:51:30 02/10/20 23 02/09/2023 MANUA L DIFFE RENTI AL % atypical lymphocytes 4 % 0-1 high Not Available [facility] [address] [place] [address], [address], 02/09/2023 14:51:30 02/10/20 23 02/09/2023 MANUA L DIFFE RENTI AL % metamyelocyt es 0 % 0-1 normal Not Available [facility] [address] [place] [address], [address], 02/09/2023 14:51:30 02/10/20 23 02/09/2023 MANUA L DIFFE RENTI AL % myelocytes 0 % 0-1 normal Not Available [facility] [address] [place] [address], [address], 02/09/2023 14:51:30 02/10/20 23 02/09/2023 MANUA L DIFFE RENTI AL % promyelocyte s 0 % 0 normal Not Available [facility] [address] [place] [address], [address], 02/09/2023 14:51:30 02/10/20 23 02/09/2023 MANUA L DIFFE RENTI AL % blast 0 % 0 normal Not Available [facility] [address] [place] [address], [address], 02/09/2023 14:51:30 02/10/20 23 02/09/2023 MANUA L DIFFE RENTI AL nucleated red cells 0 /100{ WBC} 0-1 normal Not Available [facility] [address] [place] [address], [address], 02/09/2023 14:51:30 02/10/20 23 02/09/2023 MANUA L DIFFE RENTI AL smudge cells 0 /100{ WBC} 0 normal Not Available [facility] [address] [place] [address], [address], 02/09/2023 14:51:30 02/10/20 23 02/09/2023 MANUA L DIFFE RENTI AL platelet morphology NORMAL normal Not Available [facility] [address] [place] [address], [address], 02/09/2023 14:51:30 02/10/20 23 02/09/2023 MANUA L DIFFE RENTI AL stomatocytes SLIGHT abnormal Not Available [facility] [address] [place] [address], [address], 02/09/2023 14:51:30 03/30/20 23 03/30/2023 COMPL ETE BLOOD COUNT white blood cells 12.4 10*3/ uL 3.8-10 .8 high Not Available [facility] [address] [place] [address], [address], 03/30/2023 10:12:44 03/30/20 23 03/30/2023 COMPL ETE BLOOD COUNT red blood cells 4.37 10*6/ uL 3.80-5 .20 normal Not Available [facility] [address] [place] [address], [address], 03/30/2023 10:12:44 03/30/20 23 03/30/2023 COMPL ETE BLOOD COUNT hemoglobin 12.6 g/dL 12.0-1 6.0 normal Not Available [facility] [address] [place] [address], [address], 03/30/2023 10:12:44 03/30/20 23 03/30/2023 COMPL ETE BLOOD COUNT hematocrit 38.4 % 35.0-4 7.0 normal Not Available [facility] [address] [place] [address], [address], 03/30/2023 10:12:44 03/30/20 23 03/30/2023 COMPL ETE BLOOD COUNT MCV 88 fL 80-100 normal Not Available [facility] [address] [place] [address], [address], 03/30/2023 10:12:44 03/30/20 23 03/30/2023 COMPL ETE BLOOD COUNT MCH 29 pg 26-35 normal Not Available [facility] [address] [place] [address], [address], 03/30/2023 10:12:44 03/30/20 23 03/30/2023 COMPL ETE BLOOD COUNT MCHC 33 g/dL 32-36 normal Not Available [facility] [address] [place] [address], [address], 03/30/2023 10:12:44 03/30/20 23 03/30/2023 COMPL ETE BLOOD COUNT RDW 15.2 % 11.0-1 5.0 high Not Available [facility] [address] [place] [address], [address], 03/30/2023 10:12:44 03/30/20 23 03/30/2023 COMPL ETE BLOOD COUNT MPV 7.2 fL 6.2-10 .5 normal Not Available [facility] [address] [place] [address], [address], 03/30/2023 10:12:44 03/30/20 23 03/30/2023 COMPL ETE BLOOD COUNT platelet count 166 10*3/ uL 150-40 0 normal Not Available [facility] [address] [place] [address], [address], 03/30/2023 10:12:44 03/30/20 23 03/30/2023 COMPL ETE BLOOD COUNT neutrophil,a bsolute 5.8 10*3/ uL 1.6-8. 4 normal Not Available [facility] [address] [place] [address], [address], 03/30/2023 10:12:44 03/30/20 23 03/30/2023 COMPL ETE BLOOD COUNT lymphocyte,a bsolute 5.7 10*3/ uL 0.4-5. 1 high Not Available [facility] [address] [place] [address], [address], 03/30/2023 10:12:44 03/30/20 23 03/30/2023 COMPL ETE BLOOD COUNT monocyte,abs olute 0.7 10*3/ uL 0.0-1. 2 normal Not Available [facility] [address] [place] [address], [address], 03/30/2023 10:12:44 03/30/20 23 03/30/2023 COMPL ETE BLOOD COUNT eosinophil,a bsolute 0.1 10*3/ uL 0.0-0. 8 normal Not Available [facility] [address] [place] [address], [address], 03/30/2023 10:12:44 03/30/20 23 03/30/2023 COMPL ETE BLOOD COUNT basophil,abs olute 0.0 10*3/ uL 0.0-0. 3 normal Not Available [facility] [address] [place] [address], [address], 03/30/2023 10:12:44 03/30/20 23 03/30/2023 COMPL ETE BLOOD COUNT % neutrophils 46.9 % 42.0-7 8.0 normal Not Available [facility] [address] [place] [address], [address], 03/30/2023 10:12:44 03/30/20 23 03/30/2023 COMPL ETE BLOOD COUNT % lymphocytes 45.9 % 11.0-4 7.0 normal Not Available [facility] [address] [place] [address], [address], 03/30/2023 10:12:44 03/30/20 23 03/30/2023 COMPL ETE BLOOD COUNT % monocytes 5.8 % 0.0-11 .0 normal Not Available [facility] [address] [place] [address], [address], 03/30/2023 10:12:44 03/30/20 23 03/30/2023 COMPL ETE BLOOD COUNT % eosinophils 1.1 % 0.0-7. 0 normal Not Available [facility] [address] [place] [address], [address], 03/30/2023 10:12:44 03/30/20 23 03/30/2023 COMPL ETE BLOOD COUNT % basophils 0.3 % 0.0-3. 0 normal Not Available [facility] [address] [place] [address], [address], 03/30/2023 10:12:44 03/30/20 23 03/30/2023 COMPL ETE BLOOD COUNT nucleated red cells 0.1 % 0.0-0. 9 normal Not Available [facility] [address] [place] [address], [address], 03/30/2023 10:12:44 03/30/20 23 03/30/2023 COMPL ETE BLOOD COUNT nucleated RBCs, absolute 0.01 10*3/ uL not estab. normal Not Available [facility] [address] [place] [address], [address], 03/30/2023 10:12:44 03/30/20 23 03/30/2023 COMP. METAB OLIC PANEL glucose 107 mg/dL 74-100 high Not Available [facility] [address] [place] [address], [address], 03/30/2023 10:45:23 03/30/20 23 03/30/2023 COMP. METAB OLIC PANEL blood urea nitrogen 18 mg/dL 6-20 normal Not Available [facility] [address] [place] [address], [address], 03/30/2023 10:45:23 03/30/20 23 03/30/2023 COMP. METAB OLIC PANEL creatinine 1.44 mg/dL 0.50-0 .95 high Not Available [facility] [address] [place] [address], [address], 03/30/2023 10:45:23 03/30/20 23 03/30/2023 COMP. METAB OLIC PANEL BUN/creatini ne ratio 13 (calc ) 10-20 normal Not Available [facility] [address] [place] [address], [address], 03/30/2023 10:45:23 03/30/20 23 03/30/2023 COMP. METAB OLIC PANEL sodium 139 mmol/ L 136-14 5 normal Not Available [facility] [address] [place] [address], [address], 03/30/2023 10:45:23 03/30/20 23 03/30/2023 COMP. METAB OLIC PANEL potassium 4.3 mmol/ L 3.4-5. 0 normal Not Available [facility] [address] [place] [address], [address], 03/30/2023 10:45:23 03/30/20 23 03/30/2023 COMP. METAB OLIC PANEL chloride 103 mmol/ L 98-107 normal Not Available [facility] [address] [place] [address], [address], 03/30/2023 10:45:23 03/30/20 23 03/30/2023 COMP. METAB OLIC PANEL carbon dioxide 26 mmol/ L 22-31 normal Not Available [facility] [address] [place] [address], [phone], 03/30/2023 10:45:23 03/30/20 23 03/30/2023 COMP. METAB OLIC PANEL anion gap 10 (calc ) 7-25 normal Not Available [facility] [address] [place] [address], [address], 03/30/2023 10:45:23 03/30/20 23 03/30/2023 COMP. METAB OLIC PANEL calcium 9.2 mg/dL 8.6-10 .2 normal Not Available [facility] [address] [place] [address], [address], 03/30/2023 10:45:23 03/30/20 23 03/30/2023 COMP. METAB OLIC PANEL total protein 7.0 g/dL 6.4-8. 3 normal Not Available [facility] [address] [place] [address], [address], 03/30/2023 10:45:23 03/30/20 23 03/30/2023 COMP. METAB OLIC PANEL albumin 4.6 g/dL 3.5-5. 2 normal Not Available [facility] [address] [place] [address], [address], 03/30/2023 10:45:23 03/30/20 23 03/30/2023 COMP. METAB OLIC PANEL globulin 2.4 1.5-4. 5 normal Not Available [facility] [address] [place] [address], [address], 03/30/2023 10:45:23 03/30/20 23 03/30/2023 COMP. METAB OLIC PANEL albumin/glob ulin ratio 1.9 (calc ) 1.1-2. 5 normal Not Available [facility] [address] [place] [address], [address], 03/30/2023 10:45:23 03/30/20 23 03/30/2023 COMP. METAB OLIC PANEL bilirubin, total 0.7 mg/dL 0.1-1. 2 normal Not Available [facility] [address] [place] [address], [address], 03/30/2023 10:45:23 03/30/20 23 03/30/2023 COMP. METAB OLIC PANEL alkaline phosphatase 68 U/L 30-121 normal Not Available [facility] [address] [place], [address], 03/30/2023 10:45:23 03/30/20 23 03/30/2023 COMP. METAB OLIC PANEL AST 17 U/L 0-32 normal Not Available [facility] [address] [place] [address], [address], 03/30/2023 10:45:23 03/30/20 23 03/30/2023 COMP. METAB OLIC PANEL ALT 12 U/L 0-33 normal Not Available [facility] [address] [place], [address], 03/30/2023 10:45:23 03/30/20 23 03/30/2023 COMP. METAB OLIC PANEL GFR 37 >= 60 abnormal NOT E New calcu latio n for GFR (CKD- EPI 2020) is formu lated witho ut race adjus tment facto rs at the recom menda tion of the [facility]r o[facility]y . This calcu latio n has not been valid ated in pregn ant women . For pedia tric patie nts refer to https ://heike joseph.driss claudio/deep adorno s/KDO QI/gf r_cal culat orPed Not Available [facility] [address] [place], [address], 03/30/2023 10:45:23 08/09/19 24 08/09/2023 COMPL ETE BLOOD COUNT white blood cells 9.3 10*3/ uL 3.8-10 .8 normal Not Available [facility] [address] [place], [address], 08/09/2023 15:11:10 08/09/19 24 08/09/2023 COMPL ETE BLOOD COUNT red blood cells 4.31 10*6/ uL 3.80-5 .20 normal Not Available [facility] [address] [place] [address], [address], 08/09/2023 15:11:10 08/09/19 24 08/09/2023 COMPL ETE BLOOD COUNT hemoglobin 12.7 g/dL 12.0-1 6.0 normal Not Available [facility] [address] [place] [address], [address], 08/09/2023 15:11:10 08/09/19 24 08/09/2023 COMPL ETE BLOOD COUNT hematocrit 38.5 % 35.0-4 7.0 normal Not Available [facility] [address] [place] [address], [address], 08/09/2023 15:11:10 08/09/19 24 08/09/2023 COMPL ETE BLOOD COUNT MCV 89 fL 80-100 normal Not Available [facility] [address] [place] [address], [address], 08/09/2023 15:11:10 08/09/19 24 08/09/2023 COMPL ETE BLOOD COUNT MCH 30 pg 26-35 normal Not Available [facility] [address] [place] [address], [address], 08/09/2023 15:11:10 08/09/19 24 08/09/2023 COMPL ETE BLOOD COUNT MCHC 33 g/dL 32-36 normal Not Available [facility] [address] [place] [address], [address], 08/09/2023 15:11:10 08/09/19 24 08/09/2023 COMPL ETE BLOOD COUNT RDW 15.3 % 11.0-1 5.0 high Not Available [facility] [address] [place] [address], [address], 08/09/2023 15:11:10 08/09/19 24 08/09/2023 COMPL ETE BLOOD COUNT MPV 7.8 fL 6.2-10 .5 normal Not Available [facility] [address] [place] [address], [address], 08/09/2023 15:11:10 08/09/19 24 08/09/2023 COMPL ETE BLOOD COUNT platelet count 166 10*3/ uL 150-40 0 normal Not Available [facility] [address] [place] [address], [address], 08/09/2023 15:11:10 08/09/19 24 08/09/2023 COMPL ETE BLOOD COUNT neutrophil,a bsolute 2.7 10*3/ uL 1.6-8. 4 normal Not Available [facility] [address] [place] [address], [address], 08/09/2023 15:11:10 08/09/19 24 08/09/2023 COMPL ETE BLOOD COUNT lymphocyte,a bsolute 5.9 10*3/ uL 0.4-5. 1 high Not Available [facility] [address] [place] [address], [address], 08/09/2023 15:11:10 08/09/19 24 08/09/2023 COMPL ETE BLOOD COUNT monocyte,abs olute 0.7 10*3/ uL 0.0-1. 2 normal Not Available [facility] [address] [place] [address], [address], 08/09/2023 15:11:10 08/09/19 24 08/09/2023 COMPL ETE BLOOD COUNT eosinophil,a bsolute 0.1 10*3/ uL 0.0-0. 8 normal Not Available [facility] [address] [place] [address], [address], 08/09/2023 15:11:10 08/09/19 24 08/09/2023 COMPL ETE BLOOD COUNT basophil,abs olute 0.0 10*3/ uL 0.0-0. 3 normal Not Available [facility] [address] [place] [address], [address], 08/09/2023 15:11:10 08/09/19 24 08/09/2023 COMPL ETE BLOOD COUNT % neutrophils 29.0 % 42.0-7 8.0 low Not Available [facility] [address] [place] [address], [address], 08/09/2023 15:11:10 08/09/19 24 08/09/2023 COMPL ETE BLOOD COUNT % lymphocytes 63.0 % 11.0-4 7.0 high Not Available [facility] [address] [place] [address], [address], 08/09/2023 15:11:10 08/09/19 24 08/09/2023 COMPL ETE BLOOD COUNT % monocytes 7.0 % 0.0-11 .0 normal Not Available [facility] [address] [place] [address], [address], 08/09/2023 15:11:10 08/09/19 24 08/09/2023 COMPL ETE BLOOD COUNT % eosinophils 1.0 % 0.0-7. 0 normal Not Available [facility] [address] [place] [address], [address], 08/09/2023 15:11:10 08/09/19 24 08/09/2023 COMPL ETE BLOOD COUNT % basophils 0.0 % 0.0-3. 0 normal Not Available [facility] [address] [place] [address], [address], 08/09/2023 15:11:10 08/09/19 24 08/09/2023 COMPL ETE BLOOD COUNT nucleated red cells 0.2 % 0.0-0. 9 normal Not Available [facility] [address] [place] [address], [address], 08/09/2023 15:11:10 08/09/19 24 08/09/2023 COMPL ETE BLOOD COUNT nucleated RBCs, absolute 0.02 10*3/ uL not estab. normal Not Available [facility] [address] [place] [address], [address], 08/09/2023 15:11:10 08/09/19 24 08/09/2023 MANUA L DIFFE RENTI AL % band neutrophils 0.0 % 0.0-7. 0 normal Not Available [facility] [address] [place] [address], [address], 08/09/2023 15:11:12 08/09/19 24 08/09/2023 MANUA L DIFFE RENTI AL % atypical lymphocytes 0 % 0-1 normal Not Available [facility] [address] [place] [address], [address], 08/09/2023 15:11:12 08/09/19 24 08/09/2023 MANUA L DIFFE RENTI AL % metamyelocyt es 0 % 0-1 normal Not Available [facility] [address] [place] [address], [address], 08/09/2023 15:11:12 08/09/19 24 08/09/2023 MANUA L DIFFE RENTI AL % myelocytes 0 % 0-1 normal Not Available [facility] [address] [place] [address], [address], 08/09/2023 15:11:12 08/09/19 24 08/09/2023 MANUA L DIFFE RENTI AL % promyelocyte s 0 % 0 normal Not Available [facility] [address] [place] [address], [address], 08/09/2023 15:11:12 08/09/19 24 08/09/2023 MANUA L DIFFE RENTI AL % blast 0 % 0 normal Not Available [facility] [address] [place] [address], [address], 08/09/2023 15:11:12 08/09/19 24 08/09/2023 MANUA L DIFFE RENTI AL nucleated red cells 0 /100{ WBC} 0-1 normal Not Available [facility] [address] [place] [address], [address], 08/09/2023 15:11:12 08/09/19 24 08/09/2023 MANUA L DIFFE RENTI AL smudge cells 0 /100{ WBC} 0 normal Not Available [facility] [address] [place] [address], [address], 08/09/2023 15:11:12 08/09/19 24 08/09/2023 MANUA L DIFFE RENTI AL platelet morphology NORMAL normal Not Available [facility] [address] [place] [address], [address], 08/09/2023 15:11:12 08/09/19 24 08/09/2023 MANUA L DIFFE RENTI AL ovalocytes SLIGHT abnormal Not Available [facility] [address] [place] [address], [address], 08/09/2023 15:11:12 08/09/19 24 08/09/2023 COMP. METAB OLIC PANEL glucose 123 mg/dL 74-100 high Not Available [facility] [address] [place] [address], [address], 08/09/2023 15:28:21 08/09/19 24 08/09/2023 COMP. METAB OLIC PANEL blood urea nitrogen 16 mg/dL 6-20 normal Not Available [facility] [address] [place] [address], [address], 08/09/2023 15:28:21 08/09/19 24 08/09/2023 COMP. METAB OLIC PANEL creatinine 1.40 mg/dL 0.50-0 .95 high Not Available [facility] [address] [place] [address], [address], 08/09/2023 15:28:21 08/09/19 24 08/09/2023 COMP. METAB OLIC PANEL BUN/creatini ne ratio 11 (calc ) 10-20 normal Not Available [facility] [address] [place] [address], [address], 08/09/2023 15:28:21 08/09/19 24 08/09/2023 COMP. METAB OLIC PANEL sodium 139 mmol/ L 136-14 5 normal Not Available [facility] [address] [place] [address], [address], 08/09/2023 15:28:21 08/09/19 24 08/09/2023 COMP. METAB OLIC PANEL potassium 4.4 mmol/ L 3.4-5. 0 normal Not Available [facility] [address] [place] [address], [address], 08/09/2023 15:28:21 08/09/19 24 08/09/2023 COMP. METAB OLIC PANEL chloride 102 mmol/ L 98-107 normal Not Available [facility] [address] [place] [address], [address], 08/09/2023 15:28:21 08/09/19 24 08/09/2023 COMP. METAB OLIC PANEL carbon dioxide 24 mmol/ L 22-31 normal Not Available [facility] [address] [place] [address], [address], 08/09/2023 15:28:21 08/09/19 24 08/09/2023 COMP. METAB OLIC PANEL anion gap 13 (calc ) 7-25 normal Not Available [facility] [address] [place] [address], [address], 08/09/2023 15:28:21 08/09/19 24 08/09/2023 COMP. METAB OLIC PANEL calcium 9.4 mg/dL 8.6-10 .2 normal Not Available [facility] [address] [place] [address], [address], 08/09/2023 15:28:21 08/09/19 24 08/09/2023 COMP. METAB OLIC PANEL total protein 7.5 g/dL 6.4-8. 3 normal Not Available [facility] [address] [place] [address], [address], 08/09/2023 15:28:21 08/09/19 24 08/09/2023 COMP. METAB OLIC PANEL albumin 4.4 g/dL 3.5-5. 2 normal Not Available [facility] [address] [place] [address], [address], 08/09/2023 15:28:21 08/09/19 24 08/09/2023 COMP. METAB OLIC PANEL globulin 3.1 1.5-4. 5 normal Not Available [facility] [address] [place] [address], [address], 08/09/2023 15:28:21 08/09/19 24 08/09/2023 COMP. METAB OLIC PANEL albumin/glob ulin ratio 1.4 (calc ) 1.1-2. 5 normal Not Available [facility] [address] [place] [address], [address], 08/09/2023 15:28:21 08/09/19 24 08/09/2023 COMP. METAB OLIC PANEL bilirubin, total 0.9 mg/dL 0.1-1. 2 normal Not Available [facility] [address] [place] [address], [address], 08/09/2023 15:28:21 08/09/19 24 08/09/2023 COMP. METAB OLIC PANEL alkaline phosphatase 74 U/L 30-121 normal Not Available [facility] [address] [place] [address], [address], 08/09/2023 15:28:21 08/09/19 24 08/09/2023 COMP. METAB OLIC PANEL AST 15 U/L 0-32 normal Not Available [facility] [address] [place] [address], [address], 08/09/2023 15:28:21 08/09/19 24 08/09/2023 COMP. METAB OLIC PANEL ALT 10 U/L 0-33 normal Not Available [facility] [address] [place], [address], 08/09/2023 15:28:21 08/09/19 24 08/09/2023 COMP. METAB OLIC PANEL GFR 38 >= 60 abnormal NOT E New calcu latio n for GFR (CKD- EPI 2020) is formu lated witho ut race adjus tment facto rs at the recom menda tion of the [employer] [employer] and [employer] [facility]r [employer] . This calcu latio n has not been valid ated in pregn ant women . For pedia tric patie nts refer to https ://heike w.doris joseph.o rg/pr ofess ional s/KDO QI/gf r_cal culat orPed Not Available [facility] [address] [place], [address], 08/09/2023 15:28:21 08/09/19 24 08/09/2023 LDH LDH 175 U/L 135-23 3 normal Not Available [facility] [address] [place], [address], 08/09/2023 15:29:25 02/18/20 22 02/05/2022 CT, abdom en + pelvi s, w/ contr ast No observ ation record ed. [email or web address] [facility] (Med Record) [address], [place], [address], 05/26/2022 14:25:37 03/30/20 23 03/30/2023 PET-C T, skull base to mid-t high scan [facility] [address] [place] [address] ay LT[facility], located [facility] [place] [place] [address] Patien t Name: ABIMAEL IVERSON Patien t : [birth year] Patien t 7 Orderi ng Provid er: LESA COSTA EXAM DATE: 2022 EXAM: PET-CT TUMOR SKULL BASE-M ID THIGH SUB [facility] AL INFORM ATION: Head and Neck Cancer - Restag ing. Dense base cancer . PROCED URE: Baseli ne blood glucos e level was 134 mg/dL. 11.58 mCi F-18 FDG ([facility][NOTE 3] [address]1024- 0511-3 0) was inject ed IV. After an uptake time of 51 minute s, skull base to midthi gh PET imagin g was perfor med. This was follow ed by a low dose attenu ation correc tion/a natomi c locali zation CT from lower craniu m throug h the midthi gh levels withou t IV or oral contra st. The patien t did not requir e sedati on for this exam. COMPAR SONY: Outsid e PET/CT 07/20/19 21 FINDIN GS ON PET WITH CT CORREL ATION: HEAD AND NECK: No abnorm al areas of F-18 FDG uptake are seen. UPPER LIMBS: Follow ing areas of abnorm al hyperm etabol ism are seen. 1. Hyperm etabol ic mass in the tongue base. SUV = 6.5 CHEST: Normal uptake of F-18 FDG is noted in the myocar dium. Follow ing areas of abnorm al hyperm etabol ism are seen. 1. Mildly hyperm etabol ic part solid nodule in the RUL. Overal l size = 18 mm. Solid compon ent size = 12 x 10 mm. SUV = 2.68. It was presen t in the previo us examin ation also and has increa sed in size. ABDOME N: Normal uptake of F-18 FDG is noted in the liver, spleen , bowel and kidney s along with excret ion into the ureter s. No abnorm al areas of F-18 FDG uptake are seen. PELVIS : Normal excret ory collec tion of F-18 FDG is noted in the urinar y bladde r. No abnorm al areas of F-18 FDG uptake are seen. LOWER LIMBS: No abnorm al areas of F-18 FDG uptake are seen. ADDITI ONAL SIGNIF ICANT CT FINDIN GS: None. COMBIN ED IMPRES LOY: 1. Hyperm etabol ic mass in the tongue base consis tent with neopla sm. 2. Mildly hyperm etabol ic RUL lung nodule which has slowly increa sed in size since the previo us examin ation of 07/20/19 21. It may repres ent a slowly growin g low-gr emanuel primar y malign loyd. It may be amenab le to CT-bridget ded FNA at the hospit al. 3. No eviden ce of neopla stic spread is seen elsewh ere in the neck, chest, abdome n or pelvis . Interp reted By: David Merida MD Electr onical ly Signed By: David Merida MD on 2022 1:[address] [facility] [address] [place], [address], 01/27/2024 11:07:00 Result Notes None recorded. Problems Name Problem SNOMED Code Status Onset Date Resolution Date Notes Provider Name and Address Organization Details Recorded Time Malignant lymphoma of intra-abdomi nal lymph nodes 41946365 Active Yonisgordo Jones [facility] 9 11:55:06 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 40068044 Active Yonisgordo Jones [facility] 9 11:55:27 Problem Notes None recorded. Procedures Surgical History Date Name Laterality Status Provider Name and Address Organization Details Recorded Time Chemo Nurse Assessment completed Alexa Renae [facility] 06/02/2021 16:26:14 Imaging Results Imaging Date Name Status LastModified by Organiz ation Details LastModified Time 02/05/2022 CT, abdomen + pelvis, w/ contrast completed [address] (Med Record) [address], [place], [address], 05/26/2022 14:25:37 03/30/2023 PET-CT, skull base to mid-thigh scan completed [address] [facility] [address] [place], [address], 01/27/2024 11:07:00 Procedure Notes None recorded. Medical Equipment None Reported. Allergies Allergen ID Allergen Name Allergen Category Reaction Reaction Severity Criticality Documentation Date Start Date Code Code System Note Provider Name and Address Organization Details Recorded Time 104424 Product containin g 3-hydroxy -3-methyl glutaryl- coenzyme A reductase inhibitor (product) medicatio n Not available Not available Not available 12/26/2018 57082 009 SNOMED [facility] Medications Name Sig Start Date Stop Date Status Note LastModified by Organization Details LastModified Time carvedilol 12.5 mg tablet Take 1 tablet twice a day by oral route. active Not Available Not Available No t Available amlodipine 5 mg tablet Take 1 tablet every day by oral route. 05/26 completed Not Available Not Available Not Available lorazepam 0.5 mg tablet Take 1 tablet twice a day by oral route. active Not Available Not Available No t Available paroxetine 20 mg tablet Take 1 tablet every day by oral route. 07/01 completed Not Available Not Available Not Available isosorbide dinitrate 20 mg tablet Take 1 tablet twice a day by oral route. active Not Available Not Available No t Available warfarin 5 mg tablet Take 1 tablet every day by oral route as directed. active Not Available Not Available No t Available flecainide 50 mg tablet Take 1 tablet twice a day by oral route. active Not Available Not Available No t Available hydrochloro thiazide 25 mg tablet Take 1 tablet every day by oral route. 03/31 completed Not Available Not Available Not Available furosemide 20 mg tablet Take 1 tablet every day by oral route. active Not Available Not Available No t Available metoprolol succinate ER 25 mg tablet,exte nded release 24 hr Take 1 tablet every day by oral route. active Not Available Not Available No t Available paroxetine 40 mg tablet Take 1 tablet every day by oral route. active Not Available Not Available No t Available losartan 100 mg tablet Take 1 tablet every day by oral route. active Not Available Not Available No t Available eplerenone 25 mg tablet Take 1 tablet every day by oral route. active Not Available Not Available No t Available clonazepam 0.5 mg disintegrat ing tablet Place 1 tablet 3 times a day by transling ual route. 07/01 completed Not Available Not Available Not Available rosuvastati n 5 mg tablet Take 1 tablet every day by oral route. active on Hold Not Available Not Available Not Available Vitamin D 50,000 IU active Not Available Not Available Not Available potassium 1 qd 03/31 completed Not Available Not Available Not Available omeprazole 20 mg tablet,dusty yed release Take 1 tablet every day by oral route. active Not Available Not Available No t Available Imbruvica 280 mg tablet 1 tablet daily 02/17 completed Not Available Not Available Not Available Vitals Date Recorded Body height Body mass index (BMI) Body weight Body temperature Heart rate Oxygen saturation Oxygen saturation in Arterial blood by Pulse oximetry Systolic blood pressure Diastolic blood pressure Provider Name and Address Organization Details Last Updated DateTime 2 167.64 cm 38.6 kg/m2 160688. 58 g 97.3 [degF] 85 /min 95 % 95 % 117 mm[Hg] 78 mm[Hg] Dinah Colbert [facility] 2 13:27:07 Date Recorded Body height Body mass index (BMI) Body weight Body temperature Heart rate Oxygen saturation Oxygen saturation in Arterial blood by Pulse oximetry Systolic blood pressure Diastolic blood pressure Provider Name and Address Organization Details Last Updated DateTime 2 167.64 cm 42.3 kg/m2 882225. 55 g 99.1 [degF] 90 /min 96 % 96 % 122 mm[Hg] 87 mm[Hg] Latoya Gayle [facility] 2 15:25:41 Date Recorded Body height Body mass index (BMI) Body weight Body temperature Heart rate Oxygen saturation Oxygen saturation in Arterial blood by Pulse oximetry Pain severity - 0-10 verbal numeric rating [Score] - Reported Systolic blood pressure Diastolic blood pressure Provider Name and Address Organization Details Last Updated DateTime 2 167.64 cm 40.5 kg/m2 299425. 03 g 98 [degF] 81 /min 96 % 96 % 0 129 mm[Hg] 64 mm[Hg] Lucy kapoor [facility] 2 14:30:46 Date Recorded Body height Body mass index (BMI) Body weight Body temperature Heart rate Oxygen saturation Oxygen saturation in Arterial blood by Pulse oximetry Systolic blood pressure Diastolic blood pressure Provider Name and Address Organization Details Last Updated DateTime 3 167.64 cm 39.3 kg/m2 354851 g 98.3 [degF] 90 /min 97 % 97 % 145 mm[Hg] 92 mm[Hg] Elizabeth Vázquezchristiano [facility] 3 14:13:43 Date Recorded Body height Body mass index (BMI) Body weight Body temperature Pain severity - 0-10 verbal numeric rating [Score] - Reported Heart rate Oxygen saturation Oxygen saturation in Arterial blood by Pulse oximetry Systolic blood pressure Diastolic blood pressure Provider Name and Address Organization Details Last Updated DateTime 3 167.64 cm 37.8 kg/m2 173987. 66 g 97.7 [degF] 0 77 /min 91 % 91 % 147 mm[Hg] 90 mm[Hg] Lucy kapoor [facility] 3 13:19:06 Social History Question Answer Notes LastModified by Organizat ion Details LastModified Time Tobacco Smoking Status Former Smoker Skye Ty [facility] 05/09/2019 13:09:00 What Is Your Level Of Alcohol Consumption? None Information not available 05/09/2019 How Much Tobacco Do You Chew? None Information not available 05/09/2019 Do You Or Have You Ever Used E-cigarettes Or Vape? Never Used Electronic Cigarettes Information not available 05/09/2019 Education Level High School Informa tion not available 02/17/2022 Learning Preferences Written Information not available 02/17/2022 What Was The Date Of Your Most Recent Tobacco Screening? 09/01/2022 Information not available 09/01/2022 Do You Or Have You Ever Used Smokeless Tobacco? Never Used Smokeless Tobacco Information not available 05/09/2019 How Much Tobacco Do You Smoke? No Unknown Information not available 05/09/2019 Do You Use Any Illicit Or Recreational Drugs? No Information not available 03/31/2021 Has Tobacco Cessation Counseling Been Provided? No Information not available 03/31/2021 How Many Years Have You Smoked Tobacco? 0 Information not available 08/29/2019 Do You Or Have You Ever Used Any Other Forms Of Tobacco Or Nicotine? No Information not available 08/04/2021 Sex: Unknown Functional Status None recorded. Mental Status None recorded. Family History Relationship Description Onset Age of this Age Resolved Age Notes LastModified by Organization Details LastModified Time Father Heart disease [email or web address] Not available 2018 11:59:59 Father Hypertensive disorder [email or web address] Not available 2018 12:00:17 Father Hyperlipidem ia [email or web address] Not available 2018 12:00:34 Mother Hypertensive disorder [email or web address] Not available 2018 12:00:17 Mother Hyperlipidem ia [email or web address] Not available 2018 12:00:34 Son Hypertensive disorder [email or web address] Not available 2018 12:00:17 Brother Hyperlipidem ia [email or web address] Not available 2018 12:00:34 Medical History Condition Response Hypertension Y Gynecological HistoryNo gynecological history recorded. Obstetrics History GPAL:G 0 P 0 0 0 0 Immunizations Vaccine Type Date Status Note Provider Nam e and Address Organization Details Recorded Time Influenza, split virus, quadrivalent, preservative 9 completed Skye Ty [facility] 05/09/2019 13:08:41 Influenza, high-dose, quadrivalent, PF 0 completed Skye Ty [facility] 02/19/2020 12:43:10 COVID-19, mRNA, LNP-S, PF, 100 mcg/0.5mL dose or 50 mcg/0.25mL dose 1 completed Skye Ty [facility] 07/01/2020 13:37:46 COVID-19, mRNA, LNP-S, PF, 100 mcg/0.5mL dose or 50 mcg/0.25mL dose 1 completed Skye Ty [facility] 12/02/2020 12:53:26 COVID-19, mRNA, LNP-S, PF, 100 mcg/0.5mL dose or 50 mcg/0.25mL dose 1 completed Dinah Colbert [facility] 08/04/2021 13:23:03 Influenza, high-dose, quadrivalent, PF 1 completed Dinah Colbert [facility] 08/04/2021 13:23:18 pneumococcal polysaccharide PPV23 8 completed Dinah Colbert [facility] 08/04/2021 13:23:32 Pneumococcal conjugate PCV 13 2 completed Dinah Colbert [facility] 08/04/2021 13:24:01 Influenza, split virus, quadrivalent, preservative 2 completed Lucy Gil [facility] 02/17/2022 14:22:09 Past Encounters Encounter ID Performer Location Encounter Start Date Encounter Closed Date Diagnosis/Indication Diagnosis SNOMED-CT Code Diagnosis ICD10 Code Diagnosis Note [id number] LESA COSTA MD [facility] [address] [place] [address] 05/11/2016 11:58:36 05/11/2016 14:15:47 [id number] LESA COSTA MD [facility] [address] [place] [address] 08/18/2016 12:10:51 08/18/2016 14:21:27 [id number] LESA COSTA MD [facility] [address] [place] [address] 11/17/2016 12:10:53 11/17/2016 13:43:48 [id number] LESA COSTA MD [facility] [address] [place] [address] 01/11/2017 13:21:52 01/11/2017 14:58:19 [id number] LESA COSTA MD HEM/[facility] [address] [place] [address] 05/18/2017 11:39:11 05/18/2017 12:55:13 [id number] LESA COSTA MD [facility] [address] [place] [address] 08/17/2017 12:32:59 08/17/2017 14:27:17 [id number] LESA COSTA MD HEM/[facility] [address] [place] [address] 11/09/2017 14:45:25 11/09/2017 15:50:59 [id number] LESA COSTA MD HEM/[facility]C [facility] [address] [place] [address] 12/21/2017 12:04:01 12/21/2017 13:34:16 [id number] LESA COSTA MD HEM/[facility]C [facility] [address] 6 01/17/2018 12:07:55 01/17/2018 14:11:32 [id number] LESA COSTA MD HEM/[facility]C [facility] [address] 6 02/15/2018 11:44:26 02/15/2018 13:23:48 [id number] LESA COSTA MD HEM/[facility]C [facility] [address] 6 03/15/2018 14:36:34 03/15/2018 15:45:06 [id number] GIOVANNI SHAH PA-C CARDIOLOG Y [address] [place] [address] 03/18/2018 10:49:48 03/18/2018 15:10:16 [id number] LESA COSTA MD HEM/[facility]C [facility] [address] [place] [address] 04/18/2018 12:17:31 04/18/2018 14:34:47 [id number] GIOVANNI SHAH PA-C CARDIOLOG Y EAST [address] [place], [place] [address] [place] [address] 5 04/22/2018 11:21:47 04/22/2018 12:45:40 [id number] GIOVANNI SHAH PA-C CARDIOLOG Y [address] ,[address] [place] [address] 5 05/31/2018 10:11:34 05/31/2018 11:28:40 [id number] LESA COSTA MD HEM/[facility]C [facility] [address] [place] [address] 06/20/2018 09:48:09 06/20/2018 11:39:13 [id number] ADDISON GARSIA JR, MD GENERAL SURGERY [address] [place] [address] 08/02/2018 11:23:01 08/10/2018 08:30:14 [id number] VAN CORNELL MD ECHO VASCULAR LAB [address] [place] [address] [place] [address] 08/31/2018 08:24:51 09/02/2018 14:35:45 [id number] GIOVANNI SHAH PA-C CARDIOLOG Y [address] [place] [address] 08/31/2018 08:25:59 08/31/2018 10:39:30 [id number] LESA COSTA MD HEM/ONC [facility] [address],[facility] [address] [place] [address] 09/19/2018 10:50:22 09/19/2018 12:29:35 [id number] GIOVANNI SHAH PA-C CARDIOLOG Y [address] [place] [address] 10/14/2018 14:37:27 10/14/2018 16:02:28 [id number] GIOVANNI SHAH PA-C CARDIOLOG Y [address] [place] [address] 12/13/2018 13:51:29 12/13/2018 14:51:29 [id number] LESA COSTA MD HEM/ONC SB CLOSED [address] [place] [address] 12/26/2018 11:52:40 12/26/2018 13:36:09 Overweight [id number] E66.3 Encourage exercise and weight loss. Malignant lymphoma - small lymphocytic [id number] C83.00 Given right supraclavi cular LU, we will obtain CT neck, chest. [id number] LESA COSTA MD HEM/ONC SB CLOSED [address] [place] [address] 05/09/2019 12:55:16 05/09/2019 14:08:42 Overweight [id number] E66.3 Encourage exercise and weight loss. Malignant lymphoma - small lymphocytic [id number] C83.00 Pt is doing well from this as she has no symptomati c LU or cytopenias . We will reimage in 3 months. I am unsure of the etiology of her symptoms are related to this but to her depression . [id number] GIOVANNI SHAH PA-C CARDIOLOG Y [address] [place], [place] [address] 06/14/2019 13:12:12 06/14/2019 16:11:52 [id number] TAMIKO NIETO MD CARDIOLOG Y [address] ,[address] [place] [address] 08/22/2019 10:43:49 08/22/2019 11:44:57 [id number] LESA COSTA MD HEM/ONC SB CLOSED [address] [place] [address] 08/29/2019 14:28:21 08/29/2019 15:04:18 Malignant lymphoma of intra-abdominal lymph nodes [id number] C85.93 CLL/SLL. Pt's labs, exam and scan is stable. She was advised regarding COVID -19 precaution s. 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 41604624 C85.99 As above. Overweight [id number] E66 .3 Encourage exercise and weight loss. Malignant lymphoma - small lymphocytic [id number] C83.00 Pt is doing well from this as she has no symptomati c LU or cytopenias . We will reimage in 3 months pending her PE. [id number] LESA COSTA MD HEM/ONC SB CLOSED [address] [place] [address] 11/28/2019 14:36:02 11/28/2019 15:10:55 Malignant lymphoma of intra-abdominal lymph nodes [id number] C85.93 CLL/SLL. Pt's labs, exam and scan is stable. She was advised regarding COVID -19 precaution s. She will continue on Imbruvica as prescribed . 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 [id number] C85.99 As above. [id number] LESA COSTA MD HEM/ONC SB CLOSED [address] [place] [address] 02/19/2020 12:36:14 02/19/2020 13:05:30 Malignant lymphoma of intra-abdominal lymph nodes [id number] C85.93 CLL/SLL. Pt's labs, exam and scan is stable 08/25/19. She was advised regarding COVID -19 precaution s. She will continue on Imbruvica as prescribed . Pt is doing well. Pt has received her flu shot. 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 [id number] C85.99 As above. [id number] LESA COSTA MD HEM/ONC SB CLOSED [address] [place] [address] 07/01/2020 13:29:08 07/01/2020 14:54:44 Malignant lymphoma of intra-abdominal lymph nodes [id number] C85.93 CLL/SLL. Pt's labs are stable. She was advised regarding COVID -19 precaution s. She will continue on Imbruvica as prescribed . Pt is doing well. Pt has received her flu shot and received her second COVID vaccine 06/28/20. 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 [id number] C85.99 As above. Stasis lidia matitis of lower limb due to chronic peripheral venous hypertension [id number] I87.399 FU with cardiology and PT. [id number] LESA COSTA MD HEM/ONC SB CLOSED [address] [place] [address] 12/02/2020 12:48:15 12/02/2020 13:16:37 Malignant lymphoma of intra-abdominal lymph nodes [id number] C85.93 CLL/SLL. Pt's labs are pending. She was advised regarding COVID -19 precaution s. She will continue on Imbruvica as prescribed . Pt is doing well. Pt has received her flu shot and received her second COVID vaccine 06/28/20. I have instructed pt to take booster COVID vaccine. 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 94389739 C85.99 As above. Stasis lidia matitis of lower limb due to chronic peripheral venous hypertension 951843582 I87.399 FU with cardiology and PT. [id number] LESA COSTA MD HEM/ONC SB CLOSED [address] [facility],[address] [place] [address] 03/31/2021 12:14:48 03/31/2021 13:02:49 Malignant lymphoma of intra-abdominal lymph nodes [id number] C85.93 CLL/SLL. Pt's labs are pending. She was advised regarding COVID -19 precaution s. She will hold Imbruvica as prescribed given her swelling and to see if that helps. Pt is doing well. Pt has received her flu shot and received her second COVID vaccine 06/28/20. I have instructed pt to take booster COVID vaccine. 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 [id number] C85.99 As above. Stasis lidia matitis of lower limb due to chronic peripheral venous hypertension [id number] I87.399 FU with cardiology and PT. [id number] LESA COSTA MD HEM/ONC SB CLOSED [address] [facility],[address] [place] [address] 06/02/2021 12:15:50 06/02/2021 14:29:15 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 [id number] C85.99 As above. Malignant lymphoma of intra-abdominal lymph nodes [id number] C85.93 CLL/SLL. Pt's labs are reviewed. She was advised regarding COVID -19 precaution s. She will hold Imbruvica as prescribed given her swelling and to see if that helps as her WBC is normal. Pt is doing well. Pt has received her flu shot and received her second COVID vaccine 06/28/20. I have instructed pt to take booster COVID vaccine. Stasis lidia matitis of lower limb due to chronic peripheral venous hypertension [id number] I87.399 FU with cardiology and PT. Syncope [id number] R55 I have asked pt to go to ER and she pleasantly declines. I wonder if this is secondary to hypoxemia with ambulation as her oxygen sats dropped in to the 80s. I also wish her to have her brain imaged. We are encouragin g her as well. [id number] LESA COSTA MD HEM/ONC SB CLOSED [address] [place] [address] 06/02/2021 15:53:28 06/02/2021 16:27:08 [id number] LESA COSTA MD HEM/ONC SB CLOSED [address] [place] [address] 08/04/2021 12:58:04 08/04/2021 13:55:28 Malignant lymphoma of intra-abdominal lymph nodes [id number] C85.93 CLL/SLL. Pt's labs are reviewed. She was advised regarding COVID -19 precaution s. She will continue to hold Imbruvica as prescribed given her swelling is improved and to see if that helps as her WBC is normal. Pt is doing well. Pt has received her flu shot and received her second COVID vaccine 06/28/20. I have instructed pt to take booster COVID vaccine. 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 [id number] C85.99 As above. [id number] LESA COSTA MD HEM/ONC SB CLOSED [address] [place] [address] 11/18/2021 15:10:29 11/18/2021 16:06:46 Malignant lymphoma of intra-abdominal lymph nodes [id number] C85.93 CLL/SLL. Pt's labs are reviewed. She was advised regarding COVID -19 precaution s. She will continue to hold Imbruvica as prescribed given her swelling is improved and to see if that helps as her WBC is normal. Pt is doing well. 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 56668556 C85.99 As above. Atrial fibrillation 4943 6004 I48.91 [id number] LESA COSTA MD HEM/ONC SB CLOSED [address] [place] [address] 02/17/2022 13:13:11 02/17/2022 15:56:55 Malignant lymphoma of intra-abdominal lymph nodes [id number] C85.93 CLL/SLL. Pt's labs are reviewed. She was advised regarding COVID -19 precaution s. She will continue to hold Imbruvica as prescribed given her swelling is improved and her WBC is normal. Pt is doing well. 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 21304267 C85.99 As above. [id number] LESA COSTA MD HEM/ONC SB CLOSED [address] [facility] [place] [address] 05/26/2022 13:03:54 05/26/2022 14:36:10 Malignant lymphoma of intra-abdominal lymph nodes [id number] C85.93 CLL/SLL. Pt's labs are reviewed. She was advised regarding COVID -19 precaution s. She will continue to hold Imbruvica as prescribed given her swelling is improved and her WBC is normal. Pt is doing well. 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 87614424 C85.99 As above. History of malignant neoplasm of skin [id number] Z85.828 Obtain pathology. [id number] LESA COSTA MD HEM/ONC SB CLOSED [address] [place], [place] [address] 1 09/01/2022 12:09:23 09/01/2022 14:15:37 Malignant lymphoma of intra-abdominal lymph nodes [id number] C85.93 CLL/SLL. Pt's labs are reviewed. She will off all therapies. WBC is normal. Pt is doing well. 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 [id number] C85.99 As above. History of malignant neoplasm of skin [id number] Z85.828 FU dermatolog y. [id number] MACK TORREZ MD ENT SB [address] [place] [address] 1 01/15/2023 13:08:12 01/15/2023 15:31:51 [id number] MACK TORREZ MD SURGERY SCHEDULE [address] [place] [address] 1 02/22/2023 10:51:07 02/22/2023 10:51:56 [id number] MACK TORREZ MD ENT SB [address] [place] [address] 1 05/11/2023 12:42:55 05/11/2023 15:23:03 Health Concerns Section Related Observation LastModified by Organization Detai ls LastModified Time None Recorded Concern Status LastModified by Organization Details LastModified Time None Recorded Advance Directives Directive None Recorded Payers Encounter Date Sequence Insurance Name Policy Number Policy Leon Covered Member ID Leon Member ID Guarantor Name 08/04/2021 1 [place] Shea Rice [id number] Shea Rice 11/18/2021 1 [place] Shea Rice [id number] Shea Rice 02/17/2022 1 [place] Shea Rice [id number] Shea Rice 05/26/2022 1 [place] Shea Rice [id number] Shea Rice 09/01/2022 1 [place] Hsea Rice [id number] Shea Rice Notes Date Note Type Note Provider Name and Address Organization Details Recorded Time 2 text/html HPIReported bypatient.Advanced Directives / BioBank AuthorizationsAdvanced Directives? NO Dischargedischarge mode ambulatory; discharge disposition stable Distress ScreeningHas the distress screening been completed in the last 45 days? NO; Distress level 7 Practical Problemsno practical problems Family Problemsno family problems Emotional Problemsdepression;nervousn ess;loss of interest Spiritual/Religiousspiritua l/yazdanism problems? NO Physical Problemsconstipation;weight gain;eating/ingestion problem(indigestion);change s in urination;fatigue;feeling swollen;sleep issues Nutrition ScreeningNutrition Screening NO; Nutrition counseling last 6 months? NO Mrs. Iverson is a pleasant 75-year-old female who presents to clinic today for follow-up of her CLL/SLL. She had 4 cycles of Treanda/Rituxan, which she completed in April 2013 and had a wonderful response. Upon presentation to clinic today and denies any new nausea, vomiting, diarrhea, fever, chills, cough, bone pain, chest pain, symptoms with the exception on ROS. REVIEW OF SYSTEMS: Remainder of review of systems unremarkable. Secondary to increasing WBC and LU, pt had initiated imbruvica without difficulty. She has been off for 3 months. P She is alone. She is struggling with her LE edema and chronic venous stasis. Pt is s/p fall in October 2020 resulting in a concussion and necessitating stitches as well as she continues to struggle with LE edema. She is thrilled as her son's NHL hasn't returned. She is in a wheelchair as she had a syncope episode at her last visit. LESA COSTA MD [address] [place], [address], [facility] 08/04/2021 13:49:19 2 text/html HPIReported bypatient.Advanced Directives / BioBank AuthorizationsAdvanced Directives? NO Dischargedischarge mode ambulatory; discharge disposition stable Distress ScreeningHas the distress screening been completed in the last 45 days? NO; Distress level 7 Practical Problemsno practical problems Family Problemsno family problems Emotional Problemsdepression;nervousn ess;loss of interest Spiritual/Religiousspiritua l/yazdanism problems? NO Physical Problemsweight gain;changes in urination;fatigue;feeling swollen;sleep issues Nutrition ScreeningNutrition Screening NO; Nutrition counseling last 6 months? NO Mrs. 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 She had 4 cycles of Treanda/Rituxan, which she completed in April 2013 and had a wonderful response. Upon presentation to clinic today and denies any new nausea, vomiting, diarrhea, fever, chills, cough, bone pain, chest pain, symptoms with the exception on ROS. REVIEW OF SYSTEMS: Remainder of review of systems unremarkable. Secondary to increasing WBC and LU, pt had initiated imbruvica without difficulty. She has been off for 6 months. She is alone. She is struggling with her LE edema and chronic venous stasis. Pt is s/p fall in October 2020 resulting in a concussion and necessitating stitches as well as she continues to struggle with LE edema. She is in a wheelchair as she had a syncope episode 3 months ago. LESA COSTA MD [address] [place], [address], [facility] 11/18/2021 15:59:20 11/01/202 2 text/html HPIReported bypatient.Advanced Directives / BioBank AuthorizationsAdvanced Directives? NO Dischargedischarge mode ambulatory; discharge disposition stable Distress ScreeningHas the distress screening been completed in the last 45 days? NO; Distress level 3 Practical Problemstreatment decisions stress Family Problemsno family problems Emotional Problemsdepression;nervousn ess;worry(Anxiety);loss of interest Spiritual/Religiousspiritua l/yazdanism problems? NO Physical Problemsfatigue;feeling swollen(Legs has lymphedema);sleep issues; Loss or change of physical abilities. Nutrition ScreeningNutrition Screening NO; Nutrition counseling last 6 months? NO Mrs. 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 She had 4 cycles of Treanda/Rituxan, which she completed in April 2013 and had a wonderful response. Upon presentation to clinic today and denies any new nausea, vomiting, diarrhea, fever, chills, cough, bone pain, chest pain, symptoms with the exception on ROS. REVIEW OF SYSTEMS: Remainder of review of systems unremarkable. Secondary to increasing WBC and LU, pt had initiated imbruvica without difficulty, but was off 9 months secondary to cardiac issues. She is alone. She is struggling with her LE edema and chronic venous stasis. Pt is s/p fall in October 2020 resulting in a concussion and necessitating stitches as well as she continues to struggle with LE edema. She is in a wheelchair as she had a syncope. LESA COSTA MD [address] [place] [address], [address], [facility] 02/17/2022 14:53:10 3 text/html HPIReported bypatient.Advanced Directives / BioBank AuthorizationsAdvanced Directives? NO Dischargedischarge mode ambulatory; discharge disposition stable Distress ScreeningHas the distress screening been completed in the last 45 days? NO; Distress level 6 Practical Problemstreatment decisions stress Family Problemsno family problems Spiritual/Religiousspiritua l/yazdanism problems? NO Physical Problemsfeeling swollen(Legs has lymphedema);memory/concentr ation problems;sleep issues; Loss or change of physical abilities. Nutrition ScreeningNutrition Screening NO; Nutrition counseling last 6 months? NO Mrs. 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 She had 4 cycles of Treanda/Rituxan, which she completed in April 2013 and had a wonderful response. Upon presentation to clinic today and denies any new nausea, vomiting, diarrhea, fever, chills, cough, bone pain, chest pain, symptoms with the exception on ROS. REVIEW OF SYSTEMS: Remainder of review of systems unremarkable. Secondary to increasing WBC and LU, pt had initiated imbruvica without difficulty, but was off 9 months secondary to cardiac issues. She is alone. She is struggling with her LE edema and chronic venous stasis. Pt is s/p fall in October 2020 resulting in a concussion and necessitating stitches as well as she continues to struggle with LE edema. She is s/p left cheek lesion removed for a squamous cell carcinoma yesterday. LESA COSTA MD [address] [place] [address], [phone], [facility] 05/26/2022 14:28:01 3 text/html HPIReported bypatient.Advanced Directives / BioBank AuthorizationsAdvanced Directives? NO Dischargedischarge mode ambulatory; discharge disposition stable Distress ScreeningHas the distress screening been completed in the last 45 days? NO; Distress level 2 Practical Problemstreatment decisions stress Family Problemsno family problems Spiritual/Religiousspiritua l/yazdanism problems? NO Physical Problemsfatigue;feeling swollen(Legs has lymphedema);memory/concentr ation problems;sleep issues; Loss or change of physical abilities. Nutrition ScreeningNutrition Screening NO; Nutrition counseling last 6 months? NO Mrs. 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 She had 4 cycles of Treanda/Rituxan, which she completed in April 2013 and had a wonderful response. Upon presentation to clinic today and denies any new nausea, vomiting, diarrhea, fever, chills, cough, bone pain, chest pain, symptoms with the exception on ROS. REVIEW OF SYSTEMS: Remainder of review of systems unremarkable. Secondary to increasing WBC and LU, pt had initiated imbruvica without difficulty from 01/05 through 03/09 but discontinued secondary to cardiac issues. She is alone. She is struggling with her LE edema and chronic venous stasis. Pt is s/p fall in October 2020 resulting in a concussion and necessitating stitches as well as she continues to struggle with LE edema. LESA COSTA MD [address] [facility] [place], [address], [facility] 09/01/2022 13:33:31 OBGyn Episode No OBEpisode recorded.
== END 2024-07-24 14:53 ==
LOC: ACC 13:56
PROVIDERS: PCP Nurse Practitioner Family; Visit Provider Internal Medicine Adolescent Medicine
DX: Z79.01 Long term (current) use of anticoagulants (principal); I48.91 Unspecified atrial fibrillation
CPT/HCPCS: 85610; 99211; G0463

== ENCOUNTER 2024-08-05 18:44 | Emergency (ER) | payer MEDICARE, SELFPAY ==
--- NOTE | 2024-08-05 18:48 | ECG_ITS ---
APPROVED REPORT Exam: Resting ECG HR:68 bpm ECG Measurements Heart Rate 68 AXES QRSd 91 QRS -12 QT 406 T 57 QTc 423 Conclusion ATRIAL FIBRILLATION ABNORMAL RHYTHM ECG No STEMI Electronically signed by : NAMAN HARRIS, 08/06/2024 06:46:28
[2024-08-05 18:49] LABS: POC Glucose,Bedside 122 (70-110)
[2024-08-05 18:52] VITALS: BP 154/82; PULSE 68; RESP 14; TEMP 36.8; O2SAT 95; BMI 30.7
--- OUTSIDE RECORDS SUMMARY | 2024-08-05 18:57 | XMS_ITS | Data Portability ---
Author Organization [facility] Address [address] [place] [id number] Care Team Providers Care Accountant Supervisor Name Role Phone LESA COSTA Hematology/Oncology [phone] ADDISON GARSIA JR General Surgeon ZULEYMA HARP Gauger Chief Assessment Encounter Date Assessment Date Assessment LastModified by Organization Details LastModified Time 08/04/2021 08/04/2021 RTC in 3 months with CBC, CMP, LDH and uric acid. Please give pt copy of labs. [email or web address] Not available 08/04/2021 13:48:52 11/18/2021 11/18/2021 RTC in 3 months with CBC, CMP, LDH and uric acid. Labs today CBC, CMP, LDH and uric acid. [email or web address] Not available 11/18/2021 15:53:34 02/17/2022 02/17/2022 RTC in 3 months with CBC, CMP, LDH and uric acid. Please give pt copy of labs. Please get CT results from [facility]. Not available 02/17/2022 14:52:39 05/26/2022 05/26/2022 RTC in 3 months with CBC, CMP, LDH and uric acid. Please give pt copy of labs. Please get pathology from [facility]. Not available 05/26/2022 14:27:02 09/01/2022 09/01/2022 RTC in 4 months with CBC, CMP, LDH and uric acid. Please give pt copy of labs. [email or web address] Not available 09/01/2022 13:32:17 Plan of Treatment [...] 6.0 K/uL 3.8-10 .8 normal Not Available [facility] [address] [place] [address], [address], 08/04/2021 13:14:55 08/05/19 22 08/04/2021 COMPL ETE BLOOD COUNT red blood cells 3.89 M/uL 3.80-5 .20 normal Not Available [facility] [address] [place] [address], [phone], 08/04/2021 13:14:55 08/05/19 22 08/04/2021 COMPL ETE BLOOD COUNT hemoglobin 11.9 g/dL 12.0-1 6.0 low Not Available [facility] [address] [place] [address], [address], 08/04/2021 13:14:55 08/05/19 22 08/04/2021 COMPL ETE BLOOD COUNT hematocrit 36.0 % 35.0-4 7.0 normal Not Available [facility] [address] [place] [address], [address], 08/04/2021 13:14:55 08/05/19 22 08/04/2021 COMPL ETE BLOOD COUNT MCV 93 fL 80-100 normal Not Available [facility] [address] [place] [address], [address], 08/04/2021 13:14:55 08/05/19 22 08/04/2021 COMPL ETE BLOOD COUNT MCH 31 pg 26-35 normal Not Available [facility] [address] [place] [address], [address], 08/04/2021 13:14:55 08/05/19 22 08/04/2021 COMPL ETE BLOOD COUNT MCHC 33 g/dL 32-36 normal Not Available [facility] [address] [place] [address], [address], 08/04/2021 13:14:55 08/05/19 22 08/04/2021 COMPL ETE BLOOD COUNT RDW 15.0 % 11.0-1 5.0 normal Not Available [facility] [address] [place] [address], [address], 08/04/2021 13:14:55 08/05/19 22 08/04/2021 COMPL ETE BLOOD COUNT MPV 7.1 fL 6.2-10 .5 normal Not Available [facility] [address] [place] [address], [address], 08/04/2021 13:14:55 08/05/19 22 08/04/2021 COMPL ETE BLOOD COUNT platelet count 131 K/uL 130-40 0 normal Not Available [facility] [address] [place] [address], [address], 08/04/2021 13:14:55 08/05/19 22 08/04/2021 COMPL ETE BLOOD COUNT neutrophil,a bsolute 4.0 K/uL 1.6-8. 4 normal Not Available [facility] [address] [place] [address], [address], 08/04/2021 13:14:55 08/05/19 22 08/04/2021 COMPL ETE BLOOD COUNT lymphocyte,a bsolute 1.3 K/uL 0.4-5. 1 normal Not Available [facility] [address] [place] [address], [address], 08/04/2021 13:14:55 08/05/19 22 08/04/2021 COMPL ETE BLOOD COUNT monocyte,abs olute 0.4 K/uL 0.0-1. 2 normal Not Available [facility] [address] [place] [address], [address], 08/04/2021 13:14:55 08/05/19 22 08/04/2021 COMPL ETE BLOOD COUNT eosinophil,a bsolute 0.1 K/uL 0.0-0. 8 normal Not Available [facility] [address] [place] [address], [address], 08/04/2021 13:14:55 08/05/19 22 08/04/2021 COMPL ETE BLOOD COUNT basophil,abs olute 0.0 K/uL 0.0-0. 3 normal Not Available [facility] [address] [place] [address], [address], 08/04/2021 13:14:55 08/05/19 22 08/04/2021 COMPL ETE BLOOD COUNT % neutrophils 68.0 % 42.0-7 8.0 normal Not Available [facility] [address] [place] [address], [address], 08/04/2021 13:14:55 08/05/19 22 08/04/2021 COMPL ETE BLOOD COUNT % lymphocytes 21.8 % 11.0-4 7.0 normal Not Available [facility] [address] [place] [address], [address], 08/04/2021 13:14:55 08/05/19 22 08/04/2021 COMPL ETE BLOOD COUNT % monocytes 7.3 % 0.0-11 .0 normal Not Available [facility] [address] [place] [address], [address], 08/04/2021 13:14:55 08/05/19 22 08/04/2021 COMPL ETE BLOOD COUNT % eosinophils 2.1 % 0.0-7. 0 normal Not Available [facility] [address] [place] [address], [address], 08/04/2021 13:14:55 08/05/19 22 08/04/2021 COMPL ETE BLOOD COUNT % basophils 0.8 % 0.0-3. 0 normal Not Available [facility] [address] [place] [address], [address], 08/04/2021 13:14:55 08/05/19 22 08/04/2021 COMPL ETE BLOOD COUNT nucleated red cells 0.1 % 0.0-0. 9 normal Not Available [facility] [address] [place] [address], [address], 08/04/2021 13:14:55 08/05/19 22 08/04/2021 COMPL ETE BLOOD COUNT nucleated RBCs, absolute 0.01 K/uL not estab. normal Not Available [facility] [address] [place] [address], [address], 08/04/2021 13:14:55 08/05/19 22 08/04/2021 COMP. METAB OLIC PANEL glucose 99 mg/dL 74-100 normal Not Available [facility] [address] [place] [address], [address], 08/04/2021 14:32:05 08/05/19 22 08/04/2021 COMP. METAB OLIC PANEL blood urea nitrogen 23 mg/dL 6-20 high Not Available [facility] [address] [place] [address], [address], 08/04/2021 14:32:05 08/05/19 22 08/04/2021 COMP. METAB OLIC PANEL creatinine 1.69 mg/dL 0.50-0 .95 high Not Available [facility] [address] [place] [address], [address], 08/04/2021 14:32:05 08/05/19 22 08/04/2021 COMP. METAB OLIC PANEL BUN/creatini ne ratio 14 (calc ) 10-20 normal Not Available [facility] [address] [place] [address], [address], 08/04/2021 14:32:05 08/05/19 22 08/04/2021 COMP. METAB OLIC PANEL sodium 139 mmol/ L 136-14 5 normal Not Available [facility] [address] [place] [address], [address], 08/04/2021 14:32:05 08/05/19 22 08/04/2021 COMP. METAB OLIC PANEL potassium 4.1 mmol/ L 3.4-5. 0 normal Not Available [facility] [address] [place] [address], [address], 08/04/2021 14:32:05 08/05/19 22 08/04/2021 COMP. METAB OLIC PANEL chloride 105 mmol/ L 98-107 normal Not Available [facility] [address] [place] [address], [address], 08/04/2021 14:32:05 08/05/19 22 08/04/2021 COMP. METAB OLIC PANEL carbon dioxide 20 mmol/ L 22-31 low Not Available [facility] [address] [place] [address], [address], 08/04/2021 14:32:05 08/05/19 22 08/04/2021 COMP. METAB OLIC PANEL anion gap 14 (calc ) 7-25 normal Not Available [facility] [address] [place] [address], [address], 08/04/2021 14:32:05 08/05/19 22 08/04/2021 COMP. METAB OLIC PANEL calcium 9.0 mg/dL 8.6-10 .2 normal Not Available [facility] [address] [place] [address], [address], 08/04/2021 14:32:05 08/05/19 22 08/04/2021 COMP. METAB OLIC PANEL total protein 6.4 g/dL 6.4-8. 3 normal Not Available [facility] [address] [place] [address], [address], 08/04/2021 14:32:05 08/05/19 22 08/04/2021 COMP. METAB OLIC PANEL albumin 3.9 g/dL 3.5-5. 2 normal Not Available [facility] [address] [place] [address], [address], 08/04/2021 14:32:05 08/05/19 22 08/04/2021 COMP. METAB OLIC PANEL globulin 2.5 g/dL_ (calc ) 1.5-4. 5 normal Not Available [facility] [address] [place] [address], [address], 08/04/2021 14:32:05 08/05/19 22 08/04/2021 COMP. METAB OLIC PANEL albumin/glob ulin ratio 1.6 (calc ) 1.1-2. 5 normal Not Available [facility] [address] [place] [address], [address], 08/04/2021 14:32:05 08/05/19 22 08/04/2021 COMP. METAB OLIC PANEL bilirubin, total 0.3 mg/dL 0.1-1. 2 normal Not Available [facility] [address] [place] [address], [address], 08/04/2021 14:32:05 08/05/19 22 08/04/2021 COMP. METAB OLIC PANEL alkaline phosphatase 69 U/L 30-121 normal Not Available [facility] [address] [place] [address], [address], 08/04/2021 14:32:05 08/05/19 22 08/04/2021 COMP. METAB OLIC PANEL AST 11 U/L 0-32 normal Not Available [facility] [address] [place] [address], [address], 08/04/2021 14:32:05 08/05/19 22 08/04/2021 COMP. METAB OLIC PANEL ALT 13 U/L 0-33 normal Not Available [facility] [address] [place] [address], [address], 08/04/2021 14:32:05 08/05/19 22 08/04/2021 COMP. METAB OLIC PANEL GFR 33 >= 60 abnormal Not Available [facility] [address] [place] [address], [address], 08/04/2021 14:32:05 08/05/19 22 08/04/2021 COMP. METAB [...] s/KDO QI/gf r_cal culat orPed Not Available [facility] [address] [place] [address], [address], 08/04/2021 14:32:05 08/05/19 22 08/04/2021 LDH LDH 187 U/L 135-23 3 normal Not Available [facility] [address] [place] [address], [address], 08/04/2021 14:51:42 02/18/20 22 02/17/2022 COMPL ETE BLOOD COUNT white blood cells 6.1 K/uL 3.8-10 .8 normal Not Available [facility] [address] [place] [address], [address], 02/17/2022 12:59:23 02/18/20 22 02/17/2022 COMPL ETE BLOOD COUNT red blood cells 4.03 M/uL 3.80-5 .20 normal Not Available [facility] [address] [place] [address], [address], 02/17/2022 12:59:23 02/18/20 22 02/17/2022 COMPL ETE BLOOD COUNT hemoglobin 12.1 g/dL 12.0-1 6.0 normal Not Available [facility] [address] [place] [address], [address], 02/17/2022 12:59:23 02/18/20 22 02/17/2022 COMPL ETE BLOOD COUNT hematocrit 35.9 % 35.0-4 7.0 normal Not Available [facility] [address] [place] [address], [address], 02/17/2022 12:59:23 02/18/20 22 02/17/2022 COMPL ETE BLOOD COUNT MCV 89 fL 80-100 normal Not Available [facility] [address] [place] [address], [address], 02/17/2022 12:59:23 02/18/20 22 02/17/2022 COMPL ETE BLOOD COUNT MCH 30 pg 26-35 normal Not Available [facility] [address] [place] [address], [address], 02/17/2022 12:59:23 02/18/20 22 02/17/2022 COMPL ETE BLOOD COUNT MCHC 34 g/dL 32-36 normal Not Available [facility] [address] [place] [address], [address], 02/17/2022 12:59:23 02/18/20 22 02/17/2022 COMPL ETE BLOOD COUNT RDW 14.6 % 11.0-1 5.0 normal Not Available [facility] [address] [place] [address], [address], 02/17/2022 12:59:23 02/18/20 22 02/17/2022 COMPL ETE BLOOD COUNT MPV 7.3 fL 6.2-10 .5 normal Not Available [facility] [address] [place] [address], [address], 02/17/2022 12:59:23 02/18/20 22 02/17/2022 COMPL ETE BLOOD COUNT platelet count 180 K/uL 130-40 0 normal Not Available [facility] [address] [place] [address], [address], 02/17/2022 12:59:23 02/18/20 22 02/17/2022 COMPL ETE BLOOD COUNT neutrophil,a bsolute 3.8 K/uL 1.6-8. 4 normal Not Available [facility] [address] [place] [address], [address], 02/17/2022 12:59:23 02/18/20 22 02/17/2022 COMPL ETE BLOOD COUNT lymphocyte,a bsolute 1.6 K/uL 0.4-5. 1 normal Not Available [facility] [address] [place] [address], [address], 02/17/2022 12:59:23 02/18/20 22 02/17/2022 COMPL ETE BLOOD COUNT monocyte,abs olute 0.5 K/uL 0.0-1. 2 normal Not Available [facility] [address] [place] [address], [address], 02/17/2022 12:59:23 02/18/20 22 02/17/2022 COMPL ETE BLOOD COUNT eosinophil,a bsolute 0.1 K/uL 0.0-0. 8 normal Not Available [facility] [address] [place] [address], [address], 02/17/2022 12:59:23 02/18/20 22 02/17/2022 COMPL ETE BLOOD COUNT basophil,abs olute 0.1 K/uL 0.0-0. 3 normal Not Available [facility] [address] [place] [address], [address], 02/17/2022 12:59:23 02/18/20 22 02/17/2022 COMPL ETE BLOOD COUNT % neutrophils 62.4 % 42.0-7 8.0 normal Not Available [facility] [address] [place] [address], [address], 02/17/2022 12:59:23 02/18/20 22 02/17/2022 COMPL ETE BLOOD COUNT % lymphocytes 25.6 % 11.0-4 7.0 normal Not Available [facility] [address] [place] [address], [address], 02/17/2022 12:59:23 02/18/20 22 02/17/2022 COMPL ETE BLOOD COUNT % monocytes 9.0 % 0.0-11 .0 normal Not Available [facility] [address] [place] [address], [address], 02/17/2022 12:59:23 02/18/20 22 02/17/2022 COMPL ETE BLOOD COUNT % eosinophils 2.0 % 0.0-7. 0 normal Not Available [facility] [address] [place] [address], [address], 02/17/2022 12:59:23 02/18/20 22 02/17/2022 COMPL ETE BLOOD COUNT % basophils 1.0 % 0.0-3. 0 normal Not Available [facility] [address] [place] [address], [address], 02/17/2022 12:59:23 02/18/20 22 02/17/2022 COMPL ETE BLOOD COUNT nucleated red cells 0.0 % 0.0-0. 9 normal Not Available [facility] [address] [place] [address], [address], 02/17/2022 12:59:23 02/18/20 22 02/17/2022 COMPL ETE BLOOD COUNT nucleated RBCs, absolute 0.00 K/uL not estab. normal Not Available [facility] [address] [place] [address], [address], 02/17/2022 12:59:23 02/18/20 22 02/17/2022 LDH LDH 163 U/L 135-23 3 normal Not Available [facility] [address] [place] [address], [address], 02/17/2022 13:26:21 02/18/20 22 02/17/2022 COMP. METAB OLIC PANEL glucose 98 mg/dL 74-100 normal Not Available [facility] [address] [place] [address], [address], 02/17/2022 13:26:53 02/18/20 22 02/17/2022 COMP. METAB OLIC PANEL blood urea nitrogen 21 mg/dL 6-20 high Not Available [facility] [address] [place] [address], [address], 02/17/2022 13:26:53 02/18/20 22 02/17/2022 COMP. METAB OLIC PANEL creatinine 1.34 mg/dL 0.50-0 .95 high Not Available [facility] [address] [place] [address], [address], 02/17/2022 13:26:53 02/18/20 22 02/17/2022 COMP. METAB OLIC PANEL BUN/creatini ne ratio 16 (calc ) 10-20 normal Not Available [facility] [address] [place] [address], [address], 02/17/2022 13:26:53 02/18/20 22 02/17/2022 COMP. METAB OLIC PANEL sodium 138 mmol/ L 136-14 5 normal Not Available [facility] [address] [place] [address], [address], 02/17/2022 13:26:53 02/18/20 22 02/17/2022 COMP. METAB OLIC PANEL potassium 4.0 mmol/ L 3.4-5. 0 normal Not Available [facility] [address] [place] [address], [address], 02/17/2022 13:26:53 02/18/20 22 02/17/2022 COMP. METAB OLIC PANEL chloride 103 mmol/ L 98-107 normal Not Available [facility] [address] [place] [address], [address], 02/17/2022 13:26:53 02/18/20 22 02/17/2022 COMP. METAB OLIC PANEL carbon dioxide 24 mmol/ L 22-31 normal Not Available [facility] [address] [place] [address], [address], 02/17/2022 13:26:53 02/18/20 22 02/17/2022 COMP. METAB OLIC PANEL anion gap 11 (calc ) 7-25 normal Not Available [facility] [address] [place] [address], [address], 02/17/2022 13:26:53 02/18/20 22 02/17/2022 COMP. METAB OLIC PANEL calcium 9.1 mg/dL 8.6-10 .2 normal Not Available [facility] [address] [place] [address], [address], 02/17/2022 13:26:53 02/18/20 22 02/17/2022 COMP. METAB OLIC PANEL total protein 6.9 g/dL 6.4-8. 3 normal Not Available [facility] [address] [place] [address], [address], 02/17/2022 13:26:53 02/18/20 22 02/17/2022 COMP. METAB OLIC PANEL albumin 4.2 g/dL 3.5-5. 2 normal Not Available [facility] [address] [place] [address], [address], 02/17/2022 13:26:53 02/18/20 22 02/17/2022 COMP. METAB OLIC PANEL globulin 2.7 g/dL_ (calc ) 1.5-4. 5 normal Not Available [facility] [address] [place] [address], [address], 02/17/2022 13:26:53 02/18/20 22 02/17/2022 COMP. METAB OLIC PANEL albumin/glob ulin ratio 1.6 (calc ) 1.1-2. 5 normal Not Available [facility] [address] [place] [address], [address], 02/17/2022 13:26:53 02/18/20 22 02/17/2022 COMP. METAB OLIC PANEL bilirubin, total 0.4 mg/dL 0.1-1. 2 normal Not Available [facility] [address] [place] [address], [address], 02/17/2022 13:26:53 02/18/20 22 02/17/2022 COMP. METAB OLIC PANEL alkaline phosphatase 79 U/L 30-121 normal Not Available [facility] [address] [place] [address], [address], 02/17/2022 13:26:53 02/18/20 22 02/17/2022 COMP. METAB OLIC PANEL AST 17 U/L 0-32 normal Not Available [facility] [address] [place] [address], [address], 02/17/2022 13:26:53 02/18/20 22 02/17/2022 COMP. METAB OLIC PANEL ALT 15 U/L 0-33 normal Not Available [facility] [address] [place] [address], [address], 02/17/2022 13:26:53 02/18/20 22 02/17/2022 COMP. METAB [...] s/KDO QI/gf r_cal culat orPed Not Available [facility] [address] [place] [address], [address], 02/17/2022 13:26:53 02/18/20 22 02/17/2022 URIC ACID uric acid 7.5 mg/dL 2.4-5. 7 high Refer ence range s are based on [facility] norms and do not neces leesa slater [...] mstan my. Arthr itis [facility] Vol 64 No 10, 2011 Michelle can Colle ge of Rheum atolo gy ----- ----- ----- ----- ----- ----- ----- ----- ----- ----- ----- ---- Not Available [facility] [address] [place] [address], [address], 02/17/2022 13:26:55 05/26/19 23 05/26/2022 COMPL ETE BLOOD COUNT white blood cells 5.6 K/uL 3.8-10 .8 normal Not Available [facility] [address] [place] [address], [address], 05/26/2022 13:25:38 05/26/19 23 05/26/2022 COMPL ETE BLOOD COUNT red blood cells 4.06 M/uL 3.80-5 .20 normal Not Available [facility] [address] [place] [address], [address], 05/26/2022 13:25:38 05/26/19 23 05/26/2022 COMPL ETE BLOOD COUNT hemoglobin 12.0 g/dL 12.0-1 6.0 normal Not Available [facility] [address] [place] [address], [address], 05/26/2022 13:25:38 05/26/19 23 05/26/2022 COMPL ETE BLOOD COUNT hematocrit 36.0 % 35.0-4 7.0 normal Not Available [facility] [address] [place] [address], [address], 05/26/2022 13:25:38 05/26/19 23 05/26/2022 COMPL ETE BLOOD COUNT MCV 89 fL 80-100 normal Not Available [facility] [address] [place] [address], [address], 05/26/2022 13:25:38 05/26/19 23 05/26/2022 COMPL ETE BLOOD COUNT MCH 30 pg 26-35 normal Not Available [facility] [address] [place] [address], [address], 05/26/2022 13:25:38 05/26/19 23 05/26/2022 COMPL ETE BLOOD COUNT MCHC 33 g/dL 32-36 normal Not Available [facility] [address] [place] [address], [address], 05/26/2022 13:25:38 05/26/19 23 05/26/2022 COMPL ETE BLOOD COUNT RDW 15.9 % 11.0-1 5.0 high Not Available [facility] [address] [place] [address], [address], 05/26/2022 13:25:38 05/26/19 23 05/26/2022 COMPL ETE BLOOD COUNT MPV 7.5 fL 6.2-10 .5 normal Not Available [facility] [address] [place] [address], [address], 05/26/2022 13:25:38 05/26/19 23 05/26/2022 COMPL ETE BLOOD COUNT platelet count 176 K/uL 130-40 0 normal Not Available [facility] [address] [place] [address], [address], 05/26/2022 13:25:38 05/26/19 23 05/26/2022 COMPL ETE BLOOD COUNT neutrophil,a bsolute 3.3 K/uL 1.6-8. 4 normal Not Available [facility] [address] [place] [address], [address], 05/26/2022 13:25:38 05/26/19 23 05/26/2022 COMPL ETE BLOOD COUNT lymphocyte,a bsolute 1.7 K/uL 0.4-5. 1 normal Not Available [facility] [address] [place] [address], [address], 05/26/2022 13:25:38 05/26/19 23 05/26/2022 COMPL ETE BLOOD COUNT monocyte,abs olute 0.5 K/uL 0.0-1. 2 normal Not Available [facility] [address] [place] [address], [address], 05/26/2022 13:25:38 05/26/19 23 05/26/2022 COMPL ETE BLOOD COUNT eosinophil,a bsolute 0.1 K/uL 0.0-0. 8 normal Not Available [facility] [address] [place] [address], [address], 05/26/2022 13:25:38 05/26/19 23 05/26/2022 COMPL ETE BLOOD COUNT basophil,abs olute 0.0 K/uL 0.0-0. 3 normal Not Available [facility] [address] [place] [address], [address], 05/26/2022 13:25:38 05/26/19 23 05/26/2022 COMPL ETE BLOOD COUNT % neutrophils 59.0 % 42.0-7 8.0 normal Not Available [facility] [address] [place] [address], [address], 05/26/2022 13:25:38 05/26/19 23 05/26/2022 COMPL ETE BLOOD COUNT % lymphocytes 30.6 % 11.0-4 7.0 normal Not Available [facility] [address] [place] [address], [address], 05/26/2022 13:25:38 05/26/19 23 05/26/2022 COMPL ETE BLOOD COUNT % monocytes 8.1 % 0.0-11 .0 normal Not Available [facility] [address] [place] [address], [address], 05/26/2022 13:25:38 05/26/19 23 05/26/2022 COMPL ETE BLOOD COUNT % eosinophils 1.7 % 0.0-7. 0 normal Not Available [facility] [address] [place] [address], [address], 05/26/2022 13:25:38 05/26/19 23 05/26/2022 COMPL ETE BLOOD COUNT % basophils 0.6 % 0.0-3. 0 normal Not Available [facility] [address] [place] [address], [address], 05/26/2022 13:25:38 05/26/19 23 05/26/2022 COMPL ETE BLOOD COUNT nucleated red cells 0.0 % 0.0-0. 9 normal Not Available [facility] [address] [place] [address], [address], 05/26/2022 13:25:38 05/26/19 23 05/26/2022 COMPL ETE BLOOD COUNT nucleated RBCs, absolute 0.00 K/uL not estab. normal Not Available [facility] [address] [place] [address], [address], 05/26/2022 13:25:38 05/26/19 23 05/26/2022 LDH LDH 155 U/L 135-23 3 normal Not Available [facility] [address] [place] [address], [id number], 05/26/2022 13:51:16 05/26/19 23 05/26/2022 COMP. METAB OLIC PANEL glucose 116 mg/dL 74-100 high Not Available [facility] [address] [place] [address], [id number], 05/26/2022 13:54:17 05/26/19 23 05/26/2022 COMP. METAB OLIC PANEL blood urea nitrogen 22 mg/dL 6-20 high Not Available [facility] [address] [place] [address], [id number], 05/26/2022 13:54:17 05/26/19 23 05/26/2022 COMP. METAB OLIC PANEL creatinine 1.15 mg/dL 0.50-0 .95 high Not Available [facility] [address] [place] [address], [id number], 05/26/2022 13:54:17 05/26/19 23 05/26/2022 COMP. METAB OLIC PANEL BUN/creatini ne ratio 19 (calc ) 10-20 normal Not Available [facility] [address] [place] [address], [id number], 05/26/2022 13:54:17 05/26/19 23 05/26/2022 COMP. METAB OLIC PANEL sodium 140 mmol/ L 136-14 5 normal Not Available [facility] [address] [place] [address], [id number], 05/26/2022 13:54:17 05/26/19 23 05/26/2022 COMP. METAB OLIC PANEL potassium 4.4 mmol/ L 3.4-5. 0 normal Not Available [facility] [address] [place] [address], [id number], 05/26/2022 13:54:17 05/26/19 23 05/26/2022 COMP. METAB OLIC PANEL chloride 104 mmol/ L 98-107 normal Not Available [facility] [address] [place] [address], [id number], 05/26/2022 13:54:17 05/26/19 23 05/26/2022 COMP. METAB OLIC PANEL carbon dioxide 25 mmol/ L 22-31 normal Not Available [facility] [address] [place] [address], [address], 05/26/2022 13:54:17 05/26/19 23 05/26/2022 COMP. METAB OLIC PANEL anion gap 11 (calc ) 7-25 normal Not Available [facility] [address] [place] [address], [address], 05/26/2022 13:54:17 05/26/19 23 05/26/2022 COMP. METAB OLIC PANEL calcium 9.5 mg/dL 8.6-10 .2 normal Not Available [facility] [address] [place] [address], [address], 05/26/2022 13:54:17 05/26/19 23 05/26/2022 COMP. METAB OLIC PANEL total protein 7.0 g/dL 6.4-8. 3 normal Not Available [facility] [address] [place] [address], [address], 05/26/2022 13:54:17 05/26/19 23 05/26/2022 COMP. METAB OLIC PANEL albumin 4.3 g/dL 3.5-5. 2 normal Not Available [facility] [address] [place] [address], [address], 05/26/2022 13:54:17 05/26/19 23 05/26/2022 COMP. METAB OLIC PANEL globulin 2.7 g/dL_ (calc ) 1.5-4. 5 normal Not Available [facility] [address] [place] [address], [address], 05/26/2022 13:54:17 05/26/19 23 05/26/2022 COMP. METAB OLIC PANEL albumin/glob ulin ratio 1.6 (calc ) 1.1-2. 5 normal Not Available [facility] [address] [place] [address] [place], [address], 05/26/2022 13:54:17 05/26/19 23 05/26/2022 COMP. METAB OLIC PANEL bilirubin, total 0.4 mg/dL 0.1-1. 2 normal Not Available [facility] [address] [place] [address], [address], 05/26/2022 13:54:17 05/26/19 23 05/26/2022 COMP. METAB OLIC PANEL alkaline phosphatase 71 U/L 30-121 normal Not Available [facility] [address] [place] [address], [address], 05/26/2022 13:54:17 05/26/19 23 05/26/2022 COMP. METAB OLIC PANEL AST 18 U/L 0-32 normal Not Available [facility] [address] [place] [address], [address], 05/26/2022 13:54:17 05/26/19 23 05/26/2022 COMP. METAB OLIC PANEL ALT 15 U/L 0-33 normal Not Available [facility] [address] [place] [address], [address], 05/26/2022 13:54:17 05/26/19 23 05/26/2022 COMP. METAB [...] s/KDO QI/gf r_cal culat orPed Not Available [facility] [address] [place] [address], [address], 05/26/2022 13:54:17 05/26/19 23 05/26/2022 URIC ACID uric acid 8.9 mg/dL 2.4-5. 7 high Refer ence range s are based on [facility] norms and do not neces leesa slater [...] mstan my. Arthr itis Care and [facility] Vol 64 No 10, 2011 Michelle can Colle ge of Rheum atolo gy ----- ----- ----- ----- ----- ----- ----- ----- ----- ----- ----- ---- Not Available [facility] [address] [place] [address], [address], 05/26/2022 13:54:18 09/02/19 23 09/01/2022 COMPL ETE BLOOD COUNT white blood cells 6.8 10*3/ uL 3.8-10 .8 normal Not Available [facility] [address] [place] [address], [address], 09/01/2022 12:52:29 09/02/19 23 09/01/2022 COMPL ETE BLOOD COUNT red blood cells 4.15 10*6/ uL 3.80-5 .20 normal Not Available [facility] [address] [place] [address], [address], 09/01/2022 12:52:29 09/02/19 23 09/01/2022 COMPL ETE BLOOD COUNT hemoglobin 12.5 g/dL 12.0-1 6.0 normal Not Available [facility] [address] [place] [address], [address], 09/01/2022 12:52:29 09/02/19 23 09/01/2022 COMPL ETE BLOOD COUNT hematocrit 37.0 % 35.0-4 7.0 normal Not Available [facility] [address] [place] [address], [address], 09/01/2022 12:52:29 09/02/19 23 09/01/2022 COMPL ETE BLOOD COUNT MCV 89 fL 80-100 normal Not Available [facility] [address] [place] [address], [address], 09/01/2022 12:52:29 09/02/19 23 09/01/2022 COMPL ETE BLOOD COUNT MCH 30 pg 26-35 normal Not Available [facility] [address] [place] [address], [address], 09/01/2022 12:52:29 09/02/19 23 09/01/2022 COMPL ETE BLOOD COUNT MCHC 34 g/dL 32-36 normal Not Available [facility] [address] [place] [address], [address], 09/01/2022 12:52:29 09/02/1909/01/2022 COMPL ETE BLOOD COUNT RDW 14.1 % 11.0-1 5.0 normal Not Available [facility] [address] [place] [address], [address], 09/01/2022 12:52:29 09/02/19 23 09/01/2022 COMPL ETE BLOOD COUNT MPV 7.5 fL 6.2-10 .5 normal Not Available [facility] [address] [place] [address], [address], 09/01/2022 12:52:29 09/02/1909/01/2022 COMPL ETE BLOOD COUNT platelet count 194 10*3/ uL 130-40 0 normal Not Available [facility] [address] [place] [address], [address], 09/01/2022 12:52:29 09/02/19 23 09/01/2022 COMPL ETE BLOOD COUNT neutrophil,a bsolute 4.0 10*3/ uL 1.6-8. 4 normal Not Available [facility] [address] [place] [address], [address], 09/01/2022 12:52:29 09/02/19 23 09/01/2022 COMPL ETE BLOOD COUNT lymphocyte,a bsolute 2.0 10*3/ uL 0.4-5. 1 normal Not Available [facility] [address] [place] [address], [address], 09/01/2022 12:52:29 09/02/1909/01/2022 COMPL ETE BLOOD COUNT monocyte,abs olute 0.5 10*3/ uL 0.0-1. 2 normal Not Available [facility] [address] [place] [address], [address], 09/01/2022 12:52:29 09/02/19 23 09/01/2022 COMPL ETE BLOOD COUNT eosinophil,a bsolute 0.2 10*3/ uL 0.0-0. 8 normal Not Available [facility] [address] [place] [address], [address], 09/01/2022 12:52:29 09/02/1909/01/2022 COMPL ETE BLOOD COUNT basophil,abs olute 0.1 10*3/ uL 0.0-0. 3 normal Not Available [facility] [address] [place] [address], [address], 09/01/2022 12:52:29 09/02/1909/01/2022 COMPL ETE BLOOD COUNT % neutrophils 59.2 % 42.0-7 8.0 normal Not Available [facility] [address] [place] [address], [address], 09/01/2022 12:52:29 09/02/1909/01/2022 COMPL ETE BLOOD COUNT % lymphocytes 29.7 % 11.0-4 7.0 normal Not Available [facility] [address] [place] [address], [address], 09/01/2022 12:52:29 09/02/19 23 09/01/2022 COMPL ETE BLOOD COUNT % monocytes 7.7 % 0.0-11 .0 normal Not Available [facility] [address] [place] [address], [address], 09/01/2022 12:52:29 09/02/19 23 09/01/2022 COMPL ETE BLOOD COUNT % eosinophils 2.6 % 0.0-7. 0 normal Not Available [facility] [address] [place] [address], [address], 09/01/2022 12:52:29 09/02/19 23 09/01/2022 COMPL ETE BLOOD COUNT % basophils 0.8 % 0.0-3. 0 normal Not Available [facility] [address] [place] [address], [address], 09/01/2022 12:52:29 09/02/1909/01/2022 COMPL ETE BLOOD COUNT nucleated red cells 0.0 % 0.0-0. 9 normal Not Available [facility] [address] [place] [address], [address], 09/01/2022 12:52:29 09/02/1909/01/2022 COMPL ETE BLOOD COUNT nucleated RBCs, absolute 0.00 10*3/ uL not estab. normal Not Available [facility] [address] [place] [address], [address], 09/01/2022 12:52:29 09/02/1909/01/2022 COMP. METAB OLIC PANEL glucose 121 mg/dL 74-100 high Not Available [facility] [address] [place] [address], [address], 09/01/2022 13:03:18 09/02/19 23 09/01/2022 COMP. METAB OLIC PANEL blood urea nitrogen 18 mg/dL 6-20 normal Not Available [facility] [address] [place] [address], [address], 09/01/2022 13:03:18 09/02/19 23 09/01/2022 COMP. METAB OLIC PANEL creatinine 1.32 mg/dL 0.50-0 .95 high Not Available [facility] [address] [place] [address], [address], 09/01/2022 13:03:18 09/02/19 23 09/01/2022 COMP. METAB OLIC PANEL BUN/creatini ne ratio 14 (calc ) 10-20 normal Not Available [facility] [address] [place] [address], [address], 09/01/2022 13:03:18 09/02/19 23 09/01/2022 COMP. METAB OLIC PANEL sodium 137 mmol/ L 136-14 5 normal Not Available [facility] [address] [place] [address], [address], 09/01/2022 13:03:18 09/02/19 23 09/01/2022 COMP. METAB OLIC PANEL potassium 4.1 mmol/ L 3.4-5. 0 normal Not Available [facility] [address] [place] [address], [address], 09/01/2022 13:03:18 09/02/19 23 09/01/2022 COMP. METAB OLIC PANEL chloride 99 mmol/ L 98-107 normal Not Available [facility] [address] [place] [address], [address], 09/01/2022 13:03:18 09/02/19 23 09/01/2022 COMP. METAB OLIC PANEL carbon dioxide 25 mmol/ L 22-31 normal Not Available [facility] [address] [place] [address], [address], 09/01/2022 13:03:18 09/02/19 23 09/01/2022 COMP. METAB OLIC PANEL anion gap 13 (calc ) 7-25 normal Not Available [facility] [address] [place] [address], [address], 09/01/2022 13:03:18 09/02/19 23 09/01/2022 COMP. METAB OLIC PANEL calcium 9.5 mg/dL 8.6-10 .2 normal Not Available [facility] [address] [place] [address], [address], 09/01/2022 13:03:18 09/02/19 23 09/01/2022 COMP. METAB OLIC PANEL total protein 7.3 g/dL 6.4-8. 3 normal Not Available [facility] [address] [place] [address], [address], 09/01/2022 13:03:18 09/02/19 23 09/01/2022 COMP. METAB OLIC PANEL albumin 4.3 g/dL 3.5-5. 2 normal Not Available [facility] [address] [place] [address], [address], 09/01/2022 13:03:18 09/02/19 23 09/01/2022 COMP. METAB OLIC PANEL globulin 3.0 1.5-4. 5 normal Not Available [facility] [address] [place] [address], [address], 09/01/2022 13:03:18 09/02/19 23 09/01/2022 COMP. METAB OLIC PANEL albumin/glob ulin ratio 1.4 (calc ) 1.1-2. 5 normal Not Available [facility] [address] [place] [address], [address], 09/01/2022 13:03:18 09/02/19 23 09/01/2022 COMP. METAB OLIC PANEL bilirubin, total 0.8 mg/dL 0.1-1. 2 normal Not Available [facility] [address] [place] [address], [address], 09/01/2022 13:03:18 09/02/19 23 09/01/2022 COMP. METAB OLIC PANEL alkaline phosphatase 67 U/L 30-121 normal Not Available [facility] [address] [place], [address], 09/01/2022 13:03:18 09/02/19 23 09/01/2022 COMP. METAB OLIC PANEL AST 15 U/L 0-32 normal Not Available [facility] [address] [place], [address], 09/01/2022 13:03:18 09/02/19 23 09/01/2022 COMP. METAB OLIC PANEL ALT 8 U/L 0-33 normal Not Available [facility] [address] [place], [address], 09/01/2022 13:03:18 09/02/19 23 09/01/2022 COMP. METAB [...] s/KDO QI/gf r_cal culat orPed Not Available [facility] [address] [place], [address], 09/01/2022 13:03:18 09/02/19 23 09/01/2022 URIC ACID [...] mstan my. Arthr itis Care and Resea [facility] Vol 64 No 10, 2011 Michelle puentes Colle ge of Rheum atolo gy ----- ----- ----- ----- ----- ----- ----- ----- ----- ----- ----- ---- Not Available [facility] [address] [place] [address], [address], 09/01/2022 13:03:19 09/02/19 23 09/01/2022 LDH LDH 172 U/L 135-23 3 normal Not Available [facility] [address] [place] [address], [address], 09/01/2022 13:20:20 01/13/20 23 01/12/2023 COMP. METAB OLIC PANEL glucose 109 mg/dL 74-100 high Not Available [facility] [address] [place] [address], [address], 01/12/2023 15:02:07 01/13/20 23 01/12/2023 COMP. METAB OLIC PANEL blood urea nitrogen 19 mg/dL 6-20 normal Not Available [facility] [address] [place] [address], [address], 01/12/2023 15:02:07 01/13/20 23 01/12/2023 COMP. METAB OLIC PANEL creatinine 1.35 mg/dL 0.50-0 .95 high Not Available [facility] [address] [place] [address], [address], 01/12/2023 15:02:07 01/13/20 23 01/12/2023 COMP. METAB OLIC PANEL BUN/creatini ne ratio 14 (calc ) 10-20 normal Not Available [facility] [address] [place] [address], [address], 01/12/2023 15:02:07 01/13/20 23 01/12/2023 COMP. METAB OLIC PANEL sodium 139 mmol/ L 136-14 5 normal Not Available [facility] [address] [place] [address], [address], 01/12/2023 15:02:07 01/13/20 23 01/12/2023 COMP. METAB OLIC PANEL potassium 4.5 mmol/ L 3.4-5. 0 normal Not Available [facility] [address] [place] [address], [address], 01/12/2023 15:02:07 01/13/20 23 01/12/2023 COMP. METAB OLIC PANEL chloride 104 mmol/ L 98-107 normal Not Available [facility] [address] [place] [address], [address], 01/12/2023 15:02:07 01/13/20 23 01/12/2023 COMP. METAB OLIC PANEL carbon dioxide 24 mmol/ L 22-31 normal Not Available [facility] [address] [place] [address], [address], 01/12/2023 15:02:07 01/13/20 23 01/12/2023 COMP. METAB OLIC PANEL anion gap 11 (calc ) 7-25 normal Not Available [facility] [address] [place] [address], [address], 01/12/2023 15:02:07 01/13/20 23 01/12/2023 COMP. METAB OLIC PANEL calcium 9.1 mg/dL 8.6-10 .2 normal Not Available [facility] [address] [place] [address], [address], 01/12/2023 15:02:07 01/13/20 23 01/12/2023 COMP. METAB OLIC PANEL total protein 6.8 g/dL 6.4-8. 3 normal Not Available [facility] [address] [place] [address], [address], 01/12/2023 15:02:07 01/13/20 23 01/12/2023 COMP. METAB OLIC PANEL albumin 4.2 g/dL 3.5-5. 2 normal Not Available [facility] [address] [place] [address], [address], 01/12/2023 15:02:07 01/13/20 23 01/12/2023 COMP. METAB OLIC PANEL globulin 2.6 1.5-4. 5 normal Not Available [facility] [address] [place] [address], [address], 01/12/2023 15:02:07 01/13/20 23 01/12/2023 COMP. METAB OLIC PANEL albumin/glob ulin ratio 1.6 (calc ) 1.1-2. 5 normal Not Available [facility] [address] [place] [address], [address], 01/12/2023 15:02:07 01/13/20 23 01/12/2023 COMP. METAB OLIC PANEL bilirubin, total 0.6 mg/dL 0.1-1. 2 normal Not Available [facility] [address] [place] [address], [address], 01/12/2023 15:02:07 01/13/20 23 01/12/2023 COMP. METAB OLIC PANEL alkaline phosphatase 63 U/L 30-121 normal Not Available [facility] [address] [place] [address], [address], 01/12/2023 15:02:07 01/13/20 23 01/12/2023 COMP. METAB OLIC PANEL AST 13 U/L 0-32 normal Not Available [facility] [address] [place] [address], [address], 01/12/2023 15:02:07 01/13/20 23 01/12/2023 COMP. METAB OLIC PANEL ALT 10 U/L 0-33 normal Not Available [facility] [address] [place], [address], 01/12/2023 15:02:07 01/13/20 23 01/12/2023 COMP. METAB [...] s/YARIO QI/gf r_cal culat orPed Not Available [facility] [address] [place], [address], 01/12/2023 15:02:07 01/13/20 23 01/12/2023 URIC ACID [...] mstan my. Arthr itis Care and Resea [facility] Vol 64 No 10, 2011 Michelle Agustin ge of Rheum atolo gy ----- ----- ----- ----- ----- ----- ----- ----- ----- ----- ----- ---- Not Available [facility] [address] [place] [address], [address], 01/12/2023 15:02:09 01/13/20 23 01/12/2023 LDH LDH 167 U/L 135-23 3 normal Not Available [facility] [address] [place] [address], [address], 01/12/2023 15:02:55 01/13/20 23 01/12/2023 COMPL ETE BLOOD COUNT white blood cells 7.6 10*3/ uL 3.8-10 .8 normal RESUL TS RECHE CKED Not Available [facility] [address] [place] [address], [address], 01/12/2023 15:09:32 01/13/20 23 01/12/2023 COMPL ETE BLOOD COUNT red blood cells 4.03 10*6/ uL 3.80-5 .20 normal Not Available [facility] [address] [place] [address], [address], 01/12/2023 15:09:32 01/13/20 23 01/12/2023 COMPL ETE BLOOD COUNT hemoglobin 12.0 g/dL 12.0-1 6.0 normal Not Available [facility] [address] [place] [address], [address], 01/12/2023 15:09:32 01/13/20 23 01/12/2023 COMPL ETE BLOOD COUNT hematocrit 36.2 % 35.0-4 7.0 normal Not Available [facility] [address] [place] [address], [address], 01/12/2023 15:09:32 01/13/20 23 01/12/2023 COMPL ETE BLOOD COUNT MCV 90 fL 80-100 normal Not Available [facility] [address] [place] [address], [address], 01/12/2023 15:09:32 01/13/20 23 01/12/2023 COMPL ETE BLOOD COUNT MCH 30 pg 26-35 normal Not Available [facility] [address] [place] [address], [address], 01/12/2023 15:09:32 01/13/20 23 01/12/2023 COMPL ETE BLOOD COUNT MCHC 33 g/dL 32-36 normal Not Available [facility] [address] [place] [address], [address], 01/12/2023 15:09:32 01/13/20 23 01/12/2023 COMPL ETE BLOOD COUNT RDW 14.8 % 11.0-1 5.0 normal Not Available [facility] [address] [place] [address], [address], 01/12/2023 15:09:32 01/13/20 23 01/12/2023 COMPL ETE BLOOD COUNT MPV 7.7 fL 6.2-10 .5 normal Not Available [facility] [address] [place] [address], [address], 01/12/2023 15:09:32 01/13/20 23 01/12/2023 COMPL ETE BLOOD COUNT platelet count 151 10*3/ uL 130-40 0 normal Not Available [facility] [address] [place] [address], [address], 01/12/2023 15:09:32 01/13/20 23 01/12/2023 COMPL ETE BLOOD COUNT neutrophil,a bsolute 4.0 10*3/ uL 1.6-8. 4 normal Not Available [facility] [address] [place] [address], [address], 01/12/2023 15:09:32 01/13/20 23 01/12/2023 COMPL ETE BLOOD COUNT lymphocyte,a bsolute 3.3 10*3/ uL 0.4-5. 1 normal Not Available [facility] [address] [place] [address], [address], 01/12/2023 15:09:32 01/13/20 23 01/12/2023 COMPL ETE BLOOD COUNT monocyte,abs olute 0.2 10*3/ uL 0.0-1. 2 normal Not Available [facility] [address] [place] [address], [address], 01/12/2023 15:09:32 01/13/20 23 01/12/2023 COMPL ETE BLOOD COUNT eosinophil,a bsolute 0.1 10*3/ uL 0.0-0. 8 normal Not Available [facility] [address] [place] [address], [address], 01/12/2023 15:09:32 01/13/20 23 01/12/2023 COMPL ETE BLOOD COUNT basophil,abs olute 0.0 10*3/ uL 0.0-0. 3 normal Not Available [facility] [address] [place] [address], [address], 01/12/2023 15:09:32 01/13/20 23 01/12/2023 COMPL ETE BLOOD COUNT % neutrophils 52.0 % 42.0-7 8.0 normal Not Available [facility] [address] [place] [address], [address], 01/12/2023 15:09:32 01/13/20 23 01/12/2023 COMPL ETE BLOOD COUNT % lymphocytes 44.0 % 11.0-4 7.0 normal Not Available [facility] [address] [place] [address], [address], 01/12/2023 15:09:32 01/13/20 23 01/12/2023 COMPL ETE BLOOD COUNT % monocytes 3.0 % 0.0-11 .0 normal Not Available [facility] [address] [place] [address], [address], 01/12/2023 15:09:32 01/13/20 23 01/12/2023 COMPL ETE BLOOD COUNT % eosinophils 1.0 % 0.0-7. 0 normal Not Available [facility] [address] [place] [address], [address], 01/12/2023 15:09:32 01/13/20 23 01/12/2023 COMPL ETE BLOOD COUNT % basophils 0.0 % 0.0-3. 0 normal Not Available [facility] [address] [place] [address], [address], 01/12/2023 15:09:32 01/13/20 23 01/12/2023 COMPL ETE BLOOD COUNT nucleated red cells 0.0 % 0.0-0. 9 normal Not Available [facility] [address] [place] [address], [address], 01/12/2023 15:09:32 01/13/20 23 01/12/2023 COMPL ETE BLOOD COUNT nucleated RBCs, absolute 0.00 10*3/ uL not estab. normal Not Available [facility] [address] [place] [address], [address], 01/12/2023 15:09:32 01/13/20 23 01/12/2023 MANUA L DIFFE RENTI AL % band neutrophils 0.0 % 0.0-7. 0 normal Not Available [facility] [address] [place] [address], [address], 01/12/2023 15:09:35 01/13/20 23 01/12/2023 MANUA L DIFFE RENTI AL % atypical lymphocytes 0 % 0-1 normal Not Available [facility] [address] [place] [address], [address], 01/12/2023 15:09:35 01/13/20 23 01/12/2023 MANUA L DIFFE RENTI AL % metamyelocyt es 0 % 0-1 normal Not Available [facility] [address] [place] [address], [address], 01/12/2023 15:09:35 01/13/20 23 01/12/2023 MANUA L DIFFE RENTI AL % myelocytes 0 % 0-1 normal Not Available [facility] [address] [place] [address], [address], 01/12/2023 15:09:35 01/13/20 23 01/12/2023 MANUA L DIFFE RENTI AL % promyelocyte s 0 % 0 normal Not Available [facility] [address] [place] [address], [address], 01/12/2023 15:09:35 01/13/20 23 01/12/2023 MANUA L DIFFE RENTI AL % blast 0 % 0 normal Not Available [facility] [address] [place] [address], [address], 01/12/2023 15:09:35 01/13/20 23 01/12/2023 MANUA L DIFFE RENTI AL nucleated red cells 0 /100{ WBC} 0-1 normal Not Available [facility] [address] [place] [address], [address], 01/12/2023 15:09:35 01/13/20 23 01/12/2023 MANUA L DIFFE RENTI AL smudge cells 0 /100{ WBC} 0 normal Not Available [facility] [address] [place] [address], [address], 01/12/2023 15:09:35 01/13/20 23 01/12/2023 MANUA L DIFFE RENTI AL platelet morphology NORMAL normal Not Available [facility] [address] [place] [address], [address], 01/12/2023 15:09:35 01/13/20 23 01/12/2023 MANUA L DIFFE RENTI AL hypochromasi a SLIGHT abnormal Not Available [facility] [address] [place] [address], [address], 01/12/2023 15:09:35 01/13/20 23 01/12/2023 MANUA L DIFFE RENTI AL ovalocytes SLIGHT abnormal Not Available [facility] [address] [place] [address], [address], 01/12/2023 15:09:35 02/10/20 23 02/09/2023 COMP. METAB OLIC PANEL glucose 108 mg/dL 74-100 high Not Available [facility] [address] [place] [address], [address], 02/09/2023 14:33:27 02/10/20 23 02/09/2023 COMP. METAB OLIC PANEL blood urea nitrogen 18 mg/dL 6-20 normal Not Available [facility] [address] [place] [address], [address], 02/09/2023 14:33:27 02/10/20 23 02/09/2023 COMP. METAB OLIC PANEL creatinine 1.31 mg/dL 0.50-0 .95 high Not Available [facility] [address] [place] [address], [address], 02/09/2023 14:33:27 02/10/20 23 02/09/2023 COMP. METAB OLIC PANEL BUN/creatini ne ratio 14 (calc ) 10-20 normal Not Available [facility] [address] [place] [address], [address], 02/09/2023 14:33:27 02/10/20 23 02/09/2023 COMP. METAB OLIC PANEL sodium 136 mmol/ L 136-14 5 normal Not Available [facility] [address] [place] [address], [id number], 02/09/2023 14:33:27 02/10/20 23 02/09/2023 COMP. METAB OLIC PANEL potassium 4.1 mmol/ L 3.4-5. 0 normal Not Available [facility] [address] [place] [address], [id number], 02/09/2023 14:33:27 02/10/20 23 02/09/2023 COMP. METAB OLIC PANEL chloride 101 mmol/ L 98-107 normal Not Available [facility] [address] [place] [address], [id number], 02/09/2023 14:33:27 02/10/20 23 02/09/2023 COMP. METAB OLIC PANEL carbon dioxide 25 mmol/ L 22-31 normal Not Available [facility] [address] [place] [address], [id number], 02/09/2023 14:33:27 02/10/20 23 02/09/2023 COMP. METAB OLIC PANEL anion gap 10 (calc ) 7-25 normal Not Available [facility] [address] [place] [address], [id number], 02/09/2023 14:33:27 02/10/20 23 02/09/2023 COMP. METAB OLIC PANEL calcium 9.1 mg/dL 8.6-10 .2 normal Not Available [facility] [address] [place] [address], [id number], 02/09/2023 14:33:27 02/10/20 23 02/09/2023 COMP. METAB OLIC PANEL total protein 6.8 g/dL 6.4-8. 3 normal Not Available [facility] [address] [place] [address], [id number], 02/09/2023 14:33:27 02/10/20 23 02/09/2023 COMP. METAB OLIC PANEL albumin 4.2 g/dL 3.5-5. 2 normal Not Available [facility] [address] [place] [address], [phone], 02/09/2023 14:33:27 02/10/20 23 02/09/2023 COMP. METAB OLIC PANEL globulin 2.6 1.5-4. 5 normal Not Available [facility] [address] [place] [address], [address], 02/09/2023 14:33:27 02/10/20 23 02/09/2023 COMP. METAB OLIC PANEL albumin/glob ulin ratio 1.6 (calc ) 1.1-2. 5 normal Not Available [facility] [address] [place] [address], [address], 02/09/2023 14:33:27 02/10/20 23 02/09/2023 COMP. METAB OLIC PANEL bilirubin, total 0.7 mg/dL 0.1-1. 2 normal Not Available [facility] [address] [place], [address], 02/09/2023 14:33:27 02/10/20 23 02/09/2023 COMP. METAB OLIC PANEL alkaline phosphatase 63 U/L 30-121 normal Not Available [facility] [address] [place], [address], 02/09/2023 14:33:27 02/10/20 23 02/09/2023 COMP. METAB OLIC PANEL AST 14 U/L 0-32 normal Not Available [facility] [address] [place] [address], [address], 02/09/2023 14:33:27 02/10/20 23 02/09/2023 COMP. METAB OLIC PANEL ALT 9 U/L 0-33 normal Not Available [facility] [address] [place] [address], [address], 02/09/2023 14:33:27 02/10/20 23 02/09/2023 COMP. METAB OLIC PANEL GFR 41 >= 60 abnormal NOT E New calcu latio n for GFR (CKD- EPI 2020) is formu lated witho ut race adjus tment facto rs at [facility] menda tion of the [facility] Nephr ology . This calcu latio n has not been valid ated in pregn ant women . For pedia tric patie nts refer to https :[email or web address] [email or web address] claudio/pr lia adorno s/KDO QI/gf r_cal culat orPed Not Available [facility] [address] [place], [address], 02/09/2023 14:33:27 02/10/20 23 02/09/2023 URIC ACID uric acid 7.9 mg/dL 2.4-5. 7 high Refer ence range s are based on [facility] norms and do not neces leesa slater [...] mstan my. Arthr itis Care and Resea [facility] Vol 64 No 10, 2011 Michelle puentes Colle ge of Rheum atolo gy ----- ----- ----- ----- ----- ----- ----- ----- ----- ----- ----- ---- Not Available [facility] [address] [place], [address], 02/09/2023 14:33:29 02/10/20 23 02/09/2023 LDH LDH 165 U/L 135-23 3 normal Not Available [facility] [address] [place], [address], 02/09/2023 14:47:40 02/10/20 23 02/09/2023 COMPL ETE BLOOD COUNT white blood cells 8.3 10*3/ uL 3.8-10 .8 normal Not Available [facility] [address] [place], [address], 02/09/2023 14:51:28 02/10/20 23 02/09/2023 COMPL ETE BLOOD COUNT red blood cells 4.15 10*6/ uL 3.80-5 .20 normal Not Available [facility] [address] [place] [address], [address], 02/09/2023 14:51:28 02/10/20 23 02/09/2023 COMPL ETE BLOOD COUNT hemoglobin 12.3 g/dL 12.0-1 6.0 normal Not Available [facility] [address] [place] [address], [address], 02/09/2023 14:51:28 02/10/20 23 02/09/2023 COMPL ETE BLOOD COUNT hematocrit 36.5 % 35.0-4 7.0 normal Not Available [facility] [address] [place] [address], [address], 02/09/2023 14:51:28 02/10/20 23 02/09/2023 COMPL ETE BLOOD COUNT MCV 88 fL 80-100 normal Not Available [facility] [address] [place] [address], [address], 02/09/2023 14:51:28 02/10/20 23 02/09/2023 COMPL ETE BLOOD COUNT MCH 30 pg 26-35 normal Not Available [facility] [address] [place] [address], [address], 02/09/2023 14:51:28 02/10/20 23 02/09/2023 COMPL ETE BLOOD COUNT MCHC 34 g/dL 32-36 normal Not Available [facility] [address] [place] [address], [address], 02/09/2023 14:51:28 02/10/20 23 02/09/2023 COMPL ETE BLOOD COUNT RDW 14.5 % 11.0-1 5.0 normal Not Available [facility] [address] [place] [address], [address], 02/09/2023 14:51:28 02/10/20 23 02/09/2023 COMPL ETE BLOOD COUNT MPV 7.6 fL 6.2-10 .5 normal Not Available [facility] [address] [place] [address], [address], 02/09/2023 14:51:28 02/10/20 23 02/09/2023 COMPL ETE BLOOD COUNT platelet count 184 10*3/ uL 150-40 0 normal Not Available [facility] [address] [place] [address], [address], 02/09/2023 14:51:28 02/10/20 23 02/09/2023 COMPL ETE BLOOD COUNT neutrophil,a bsolute 4.2 10*3/ uL 1.6-8. 4 normal Not Available [facility] [address] [place] [address], [address], 02/09/2023 14:51:28 02/10/20 23 02/09/2023 COMPL ETE BLOOD COUNT lymphocyte,a bsolute 2.9 10*3/ uL 0.4-5. 1 normal Not Available [facility] [address] [place] [address], [address], 02/09/2023 14:51:28 02/10/20 23 02/09/2023 COMPL ETE BLOOD COUNT monocyte,abs olute 0.7 10*3/ uL 0.0-1. 2 normal Not Available [facility] [address] [place] [address], [address], 02/09/2023 14:51:28 02/10/20 23 02/09/2023 COMPL ETE BLOOD COUNT eosinophil,a bsolute 0.2 10*3/ uL 0.0-0. 8 normal Not Available [facility] [address] [place] [address], [address], 02/09/2023 14:51:28 02/10/20 23 02/09/2023 COMPL ETE BLOOD COUNT basophil,abs olute 0.0 10*3/ uL 0.0-0. 3 normal Smear revie wed to confi rm cell morph ology . Not Available [facility] [address] [place] [address], [address], 02/09/2023 14:51:28 02/10/20 23 02/09/2023 COMPL ETE BLOOD COUNT % neutrophils 50.0 % 42.0-7 8.0 normal Not Available [facility] [address] [place] [address], [address], 02/09/2023 14:51:28 02/10/20 23 02/09/2023 COMPL ETE BLOOD COUNT % lymphocytes 35.0 % 11.0-4 7.0 normal Not Available [facility] [address] [place] [address], [address], 02/09/2023 14:51:28 02/10/20 23 02/09/2023 COMPL ETE BLOOD COUNT % monocytes 9.0 % 0.0-11 .0 normal Not Available [facility] [address] [place] [address], [address], 02/09/2023 14:51:28 02/10/20 23 02/09/2023 COMPL ETE BLOOD COUNT % eosinophils 2.0 % 0.0-7. 0 normal Not Available [facility] [address] [place] [address], [address], 02/09/2023 14:51:28 02/10/20 23 02/09/2023 COMPL ETE BLOOD COUNT % basophils 0.0 % 0.0-3. 0 normal Not Available [facility] [address] [place] [address], [address], 02/09/2023 14:51:28 02/10/20 23 02/09/2023 COMPL ETE BLOOD COUNT nucleated red cells 0.2 % 0.0-0. 9 normal Not Available [facility] [address] [place] [address], [address], 02/09/2023 14:51:28 02/10/20 23 02/09/2023 COMPL ETE BLOOD COUNT nucleated RBCs, absolute 0.01 10*3/ uL not estab. normal Not Available [facility] [address] [place] [address], [address], 02/09/2023 14:51:28 02/10/20 23 02/09/2023 MANUA L DIFFE RENTI AL % band neutrophils 0.0 % 0.0-7. 0 normal Not Available [facility] [address] [place] [address], [address], 02/09/2023 14:51:30 02/10/20 23 02/09/2023 MANUA L DIFFE RENTI AL % atypical lymphocytes 4 % 0-1 high Not Available [facility] [address] [place] [address], [address], 02/09/2023 14:51:30 02/10/20 23 02/09/2023 MANUA L DIFFE RENTI AL % metamyelocyt es 0 % 0-1 normal Not Available [facility] [address] [place] [address], [address], 02/09/2023 14:51:30 02/10/20 23 02/09/2023 MANUA L DIFFE RENTI AL % myelocytes 0 % 0-1 normal Not Available [facility] [address] [place] [address], [address], 02/09/2023 14:51:30 02/10/20 23 02/09/2023 MANUA L DIFFE RENTI AL % promyelocyte s 0 % 0 normal Not Available [facility] [address] [place] [address], [address], 02/09/2023 14:51:30 02/10/20 23 02/09/2023 MANUA L DIFFE RENTI AL % blast 0 % 0 normal Not Available [facility] [address] [place] [address], [address], 02/09/2023 14:51:30 02/10/20 23 02/09/2023 MANUA L DIFFE RENTI AL nucleated red cells 0 /100{ WBC} 0-1 normal Not Available [facility] [address] [place] [address], [address], 02/09/2023 14:51:30 02/10/20 23 02/09/2023 MANUA L DIFFE RENTI AL smudge cells 0 /100{ WBC} 0 normal Not Available [facility] [address] [place] [address], [address], 02/09/2023 14:51:30 02/10/20 23 02/09/2023 MANUA L DIFFE RENTI AL platelet morphology NORMAL normal Not Available [facility] [address] [place] [address], [address], 02/09/2023 14:51:30 02/10/20 23 02/09/2023 MANUA L DIFFE RENTI AL stomatocytes SLIGHT abnormal Not Available [facility] [address] [place] [address], [address], 02/09/2023 14:51:30 03/30/20 23 03/30/2023 COMPL ETE BLOOD COUNT white blood cells 12.4 10*3/ uL 3.8-10 .8 high Not Available [facility] [address] [place] [address], [address], 03/30/2023 10:12:44 03/30/20 23 03/30/2023 COMPL ETE BLOOD COUNT red blood cells 4.37 10*6/ uL 3.80-5 .20 normal Not Available [facility] [address] [place] [address], [address], 03/30/2023 10:12:44 03/30/20 23 03/30/2023 COMPL ETE BLOOD COUNT hemoglobin 12.6 g/dL 12.0-1 6.0 normal Not Available [facility] [address] [place] [address], [address], 03/30/2023 10:12:44 03/30/20 23 03/30/2023 COMPL ETE BLOOD COUNT hematocrit 38.4 % 35.0-4 7.0 normal Not Available [facility] [address] [place] [address], [address], 03/30/2023 10:12:44 03/30/20 23 03/30/2023 COMPL ETE BLOOD COUNT MCV 88 fL 80-100 normal Not Available [facility] [address] [place] [address], [address], 03/30/2023 10:12:44 03/30/20 23 03/30/2023 COMPL ETE BLOOD COUNT MCH 29 pg 26-35 normal Not Available [facility] [address] [place] [address], [address], 03/30/2023 10:12:44 03/30/20 23 03/30/2023 COMPL ETE BLOOD COUNT MCHC 33 g/dL 32-36 normal Not Available [facility] [address] [place] [address], [address], 03/30/2023 10:12:44 03/30/20 23 03/30/2023 COMPL ETE BLOOD COUNT RDW 15.2 % 11.0-1 5.0 high Not Available [facility] [address] [place] [address], [address], 03/30/2023 10:12:44 03/30/20 23 03/30/2023 COMPL ETE BLOOD COUNT MPV 7.2 fL 6.2-10 .5 normal Not Available [facility] [address] [place] [address], [address], 03/30/2023 10:12:44 03/30/20 23 03/30/2023 COMPL ETE BLOOD COUNT platelet count 166 10*3/ uL 150-40 0 normal Not Available [facility] [address] [place] [address], [address], 03/30/2023 10:12:44 03/30/20 23 03/30/2023 COMPL ETE BLOOD COUNT neutrophil,a bsolute 5.8 10*3/ uL 1.6-8. 4 normal Not Available [facility] [address] [place] [address], [address], 03/30/2023 10:12:44 03/30/20 23 03/30/2023 COMPL ETE BLOOD COUNT lymphocyte,a bsolute 5.7 10*3/ uL 0.4-5. 1 high Not Available [facility] [address] [place] [address], [address], 03/30/2023 10:12:44 03/30/20 23 03/30/2023 COMPL ETE BLOOD COUNT monocyte,abs olute 0.7 10*3/ uL 0.0-1. 2 normal Not Available [facility] [address] [place] [address], [address], 03/30/2023 10:12:44 03/30/20 23 03/30/2023 COMPL ETE BLOOD COUNT eosinophil,a bsolute 0.1 10*3/ uL 0.0-0. 8 normal Not Available [facility] [address] [place] [address], [address], 03/30/2023 10:12:44 03/30/20 23 03/30/2023 COMPL ETE BLOOD COUNT basophil,abs olute 0.0 10*3/ uL 0.0-0. 3 normal Not Available [facility] [address] [place] [address], [address], 03/30/2023 10:12:44 03/30/20 23 03/30/2023 COMPL ETE BLOOD COUNT % neutrophils 46.9 % 42.0-7 8.0 normal Not Available [facility] [address] [place] [address], [address], 03/30/2023 10:12:44 03/30/20 23 03/30/2023 COMPL ETE BLOOD COUNT % lymphocytes 45.9 % 11.0-4 7.0 normal Not Available [facility] [address] [place] [address], [address], 03/30/2023 10:12:44 03/30/20 23 03/30/2023 COMPL ETE BLOOD COUNT % monocytes 5.8 % 0.0-11 .0 normal Not Available [facility] [address] [place] [address], [address], 03/30/2023 10:12:44 03/30/20 23 03/30/2023 COMPL ETE BLOOD COUNT % eosinophils 1.1 % 0.0-7. 0 normal Not Available [facility] [address] [place] [address], [address], 03/30/2023 10:12:44 03/30/20 23 03/30/2023 COMPL ETE BLOOD COUNT % basophils 0.3 % 0.0-3. 0 normal Not Available [facility] [address] [place] [address], [address], 03/30/2023 10:12:44 03/30/20 23 03/30/2023 COMPL ETE BLOOD COUNT nucleated red cells 0.1 % 0.0-0. 9 normal Not Available [facility] [address] [place] [address], [address], 03/30/2023 10:12:44 03/30/20 23 03/30/2023 COMPL ETE BLOOD COUNT nucleated RBCs, absolute 0.01 10*3/ uL not estab. normal Not Available [facility] [address] [place] [address], [address], 03/30/2023 10:12:44 03/30/20 23 03/30/2023 COMP. METAB OLIC PANEL glucose 107 mg/dL 74-100 high Not Available [facility] [address] [place] [address], [address], 03/30/2023 10:45:23 03/30/20 23 03/30/2023 COMP. METAB OLIC PANEL blood urea nitrogen 18 mg/dL 6-20 normal Not Available [facility] [address] [place] [address], [address], 03/30/2023 10:45:23 03/30/20 23 03/30/2023 COMP. METAB OLIC PANEL creatinine 1.44 mg/dL 0.50-0 .95 high Not Available [facility] [address] [place] [address], [address], 03/30/2023 10:45:23 03/30/20 23 03/30/2023 COMP. METAB OLIC PANEL BUN/creatini ne ratio 13 (calc ) 10-20 normal Not Available [facility] [address] [place] [address], [address], 03/30/2023 10:45:23 03/30/20 23 03/30/2023 COMP. METAB OLIC PANEL sodium 139 mmol/ L 136-14 5 normal Not Available [facility] [address] [place] [address], [address], 03/30/2023 10:45:23 03/30/20 23 03/30/2023 COMP. METAB OLIC PANEL potassium 4.3 mmol/ L 3.4-5. 0 normal Not Available [facility] [address] [place] [address], [address], 03/30/2023 10:45:23 03/30/20 23 03/30/2023 COMP. METAB OLIC PANEL chloride 103 mmol/ L 98-107 normal Not Available [facility] [address] [place] [address], [address], 03/30/2023 10:45:23 03/30/20 23 03/30/2023 COMP. METAB OLIC PANEL carbon dioxide 26 mmol/ L 22-31 normal Not Available [facility] [address] [place] [address], [address], 03/30/2023 10:45:23 03/30/20 23 03/30/2023 COMP. METAB OLIC PANEL anion gap 10 (calc ) 7-25 normal Not Available [facility] [address] [place] [address], [address], 03/30/2023 10:45:23 03/30/20 23 03/30/2023 COMP. METAB OLIC PANEL calcium 9.2 mg/dL 8.6-10 .2 normal Not Available [facility] [address] [place] [address], [address], 03/30/2023 10:45:23 03/30/20 23 03/30/2023 COMP. METAB OLIC PANEL total protein 7.0 g/dL 6.4-8. 3 normal Not Available [facility] [address] [place] [address], [address], 03/30/2023 10:45:23 03/30/20 23 03/30/2023 COMP. METAB OLIC PANEL albumin 4.6 g/dL 3.5-5. 2 normal Not Available [facility] [address] [place] [address], [address], 03/30/2023 10:45:23 03/30/20 23 03/30/2023 COMP. METAB OLIC PANEL globulin 2.4 1.5-4. 5 normal Not Available [facility] [address] [place] [address], [address], 03/30/2023 10:45:23 03/30/20 23 03/30/2023 COMP. METAB OLIC PANEL albumin/glob ulin ratio 1.9 (calc ) 1.1-2. 5 normal Not Available [facility] [address] [place] [address], [address], 03/30/2023 10:45:23 03/30/20 23 03/30/2023 COMP. METAB OLIC PANEL bilirubin, total 0.7 mg/dL 0.1-1. 2 normal Not Available [facility] [address] [place] [address], [address], 03/30/2023 10:45:23 03/30/20 23 03/30/2023 COMP. METAB OLIC PANEL alkaline phosphatase 68 U/L 30-121 normal Not Available [facility] [address] [place], [address], 03/30/2023 10:45:23 03/30/20 23 03/30/2023 COMP. METAB OLIC PANEL AST 17 U/L 0-32 normal Not Available [facility] [address] [place] [address], [address], 03/30/2023 10:45:23 03/30/20 23 03/30/2023 COMP. METAB OLIC PANEL ALT 12 U/L 0-33 normal Not Available [facility] [address] [place], [address], 03/30/2023 10:45:23 03/30/20 23 03/30/2023 COMP. METAB [...] s/KDO QI/gf r_cal culat orPed Not Available [facility] [address] [place], [address], 03/30/2023 10:45:23 08/09/19 24 08/09/2023 COMPL ETE BLOOD COUNT white blood cells 9.3 10*3/ uL 3.8-10 .8 normal Not Available [facility] [address] [place], [address], 08/09/2023 15:11:10 08/09/19 24 08/09/2023 COMPL ETE BLOOD COUNT red blood cells 4.31 10*6/ uL 3.80-5 .20 normal Not Available [facility] [address] [place] [address], [address], 08/09/2023 15:11:10 08/09/19 24 08/09/2023 COMPL ETE BLOOD COUNT hemoglobin 12.7 g/dL 12.0-1 6.0 normal Not Available [facility] [address] [place] [address], [address], 08/09/2023 15:11:10 08/09/19 24 08/09/2023 COMPL ETE BLOOD COUNT hematocrit 38.5 % 35.0-4 7.0 normal Not Available [facility] [address] [place] [address], [address], 08/09/2023 15:11:10 08/09/19 24 08/09/2023 COMPL ETE BLOOD COUNT MCV 89 fL 80-100 normal Not Available [facility] [address] [place] [address], [address], 08/09/2023 15:11:10 08/09/19 24 08/09/2023 COMPL ETE BLOOD COUNT MCH 30 pg 26-35 normal Not Available [facility] [address] [place] [address], [address], 08/09/2023 15:11:10 08/09/19 24 08/09/2023 COMPL ETE BLOOD COUNT MCHC 33 g/dL 32-36 normal Not Available [facility] [address] [place] [address], [address], 08/09/2023 15:11:10 08/09/19 24 08/09/2023 COMPL ETE BLOOD COUNT RDW 15.3 % 11.0-1 5.0 high Not Available [facility] [address] [place] [address], [address], 08/09/2023 15:11:10 08/09/19 24 08/09/2023 COMPL ETE BLOOD COUNT MPV 7.8 fL 6.2-10 .5 normal Not Available [facility] [address] [place] [address], [address], 08/09/2023 15:11:10 08/09/19 24 08/09/2023 COMPL ETE BLOOD COUNT platelet count 166 10*3/ uL 150-40 0 normal Not Available [facility] [address] [place] [address], [address], 08/09/2023 15:11:10 08/09/19 24 08/09/2023 COMPL ETE BLOOD COUNT neutrophil,a bsolute 2.7 10*3/ uL 1.6-8. 4 normal Not Available [facility] [address] [place] [address], [address], 08/09/2023 15:11:10 08/09/19 24 08/09/2023 COMPL ETE BLOOD COUNT lymphocyte,a bsolute 5.9 10*3/ uL 0.4-5. 1 high Not Available [facility] [address] [place] [address], [address], 08/09/2023 15:11:10 08/09/19 24 08/09/2023 COMPL ETE BLOOD COUNT monocyte,abs olute 0.7 10*3/ uL 0.0-1. 2 normal Not Available [facility] [address] [place] [address], [address], 08/09/2023 15:11:10 08/09/19 24 08/09/2023 COMPL ETE BLOOD COUNT eosinophil,a bsolute 0.1 10*3/ uL 0.0-0. 8 normal Not Available [facility] [address] [place] [address], [address], 08/09/2023 15:11:10 08/09/19 24 08/09/2023 COMPL ETE BLOOD COUNT basophil,abs olute 0.0 10*3/ uL 0.0-0. 3 normal Not Available [facility] [address] [place] [address], [address], 08/09/2023 15:11:10 08/09/19 24 08/09/2023 COMPL ETE BLOOD COUNT % neutrophils 29.0 % 42.0-7 8.0 low Not Available [facility] [address] [place] [address], [address], 08/09/2023 15:11:10 08/09/19 24 08/09/2023 COMPL ETE BLOOD COUNT % lymphocytes 63.0 % 11.0-4 7.0 high Not Available [facility] [address] [place] [address], [address], 08/09/2023 15:11:10 08/09/19 24 08/09/2023 COMPL ETE BLOOD COUNT % monocytes 7.0 % 0.0-11 .0 normal Not Available [facility] [address] [place] [address], [address], 08/09/2023 15:11:10 08/09/19 24 08/09/2023 COMPL ETE BLOOD COUNT % eosinophils 1.0 % 0.0-7. 0 normal Not Available [facility] [address] [place] [address], [address], 08/09/2023 15:11:10 08/09/19 24 08/09/2023 COMPL ETE BLOOD COUNT % basophils 0.0 % 0.0-3. 0 normal Not Available [facility] [address] [place] [address], [address], 08/09/2023 15:11:10 08/09/19 24 08/09/2023 COMPL ETE BLOOD COUNT nucleated red cells 0.2 % 0.0-0. 9 normal Not Available [facility] [address] [place] [address], [address], 08/09/2023 15:11:10 08/09/19 24 08/09/2023 COMPL ETE BLOOD COUNT nucleated RBCs, absolute 0.02 10*3/ uL not estab. normal Not Available [facility] [address] [place] [address], [address], 08/09/2023 15:11:10 08/09/19 24 08/09/2023 MANUA L DIFFE RENTI AL % band neutrophils 0.0 % 0.0-7. 0 normal Not Available [facility] [address] [place] [address], [address], 08/09/2023 15:11:12 08/09/19 24 08/09/2023 MANUA L DIFFE RENTI AL % atypical lymphocytes 0 % 0-1 normal Not Available [facility] [address] [place] [address], [address], 08/09/2023 15:11:12 08/09/19 24 08/09/2023 MANUA L DIFFE RENTI AL % metamyelocyt es 0 % 0-1 normal Not Available [facility] [address] [place] [address], [address], 08/09/2023 15:11:12 08/09/19 24 08/09/2023 MANUA L DIFFE RENTI AL % myelocytes 0 % 0-1 normal Not Available [facility] [address] [place] [address], [address], 08/09/2023 15:11:12 08/09/19 24 08/09/2023 MANUA L DIFFE RENTI AL % promyelocyte s 0 % 0 normal Not Available [facility] [address] [place] [address], [address], 08/09/2023 15:11:12 08/09/19 24 08/09/2023 MANUA L DIFFE RENTI AL % blast 0 % 0 normal Not Available [facility] [address] [place] [address], [address], 08/09/2023 15:11:12 08/09/19 24 08/09/2023 MANUA L DIFFE RENTI AL nucleated red cells 0 /100{ WBC} 0-1 normal Not Available [facility] [address] [place] [address], [address], 08/09/2023 15:11:12 08/09/19 24 08/09/2023 MANUA L DIFFE RENTI AL smudge cells 0 /100{ WBC} 0 normal Not Available [facility] [address] [place] [address], [address], 08/09/2023 15:11:12 08/09/19 24 08/09/2023 MANUA L DIFFE RENTI AL platelet morphology NORMAL normal Not Available [facility] [address] [place] [address], [phone], 08/09/2023 15:11:12 08/09/19 24 08/09/2023 MANUA L DIFFE RENTI AL ovalocytes SLIGHT abnormal Not Available [facility] [address] [place] [address], [phone], 08/09/2023 15:11:12 08/09/19 24 08/09/2023 COMP. METAB OLIC PANEL glucose 123 mg/dL 74-100 high Not Available [facility] [address] [place] [address], [phone], 08/09/2023 15:28:21 08/09/19 24 08/09/2023 COMP. METAB OLIC PANEL blood urea nitrogen 16 mg/dL 6-20 normal Not Available [facility] [address] [place] [address], [phone], 08/09/2023 15:28:21 08/09/19 24 08/09/2023 COMP. METAB OLIC PANEL creatinine 1.40 mg/dL 0.50-0 .95 high Not Available [facility] [address] [place] [address], [phone], 08/09/2023 15:28:21 08/09/19 24 08/09/2023 COMP. METAB OLIC PANEL BUN/creatini ne ratio 11 (calc ) 10-20 normal Not Available [facility] [address] [place] [address], [id number], 08/09/2023 15:28:21 08/09/19 24 08/09/2023 COMP. METAB OLIC PANEL sodium 139 mmol/ L 136-14 5 normal Not Available [facility] [address] [place] [address], [id number], 08/09/2023 15:28:21 08/09/19 24 08/09/2023 COMP. METAB OLIC PANEL potassium 4.4 mmol/ L 3.4-5. 0 normal Not Available [facility] [address] [place] [address], [id number], 08/09/2023 15:28:21 08/09/19 24 08/09/2023 COMP. METAB OLIC PANEL chloride 102 mmol/ L 98-107 normal Not Available [facility] [address] [place] [address], [address], 08/09/2023 15:28:21 08/09/19 24 08/09/2023 COMP. METAB OLIC PANEL carbon dioxide 24 mmol/ L 22-31 normal Not Available [facility] [address] [place] [address], [address], 08/09/2023 15:28:21 08/09/19 24 08/09/2023 COMP. METAB OLIC PANEL anion gap 13 (calc ) 7-25 normal Not Available [facility] [address] [place] [address], [address], 08/09/2023 15:28:21 08/09/19 24 08/09/2023 COMP. METAB OLIC PANEL calcium 9.4 mg/dL 8.6-10 .2 normal Not Available [facility] [address] [place] [address], [address], 08/09/2023 15:28:21 08/09/19 24 08/09/2023 COMP. METAB OLIC PANEL total protein 7.5 g/dL 6.4-8. 3 normal Not Available [facility] [address] [place] [address], [address], 08/09/2023 15:28:21 08/09/19 24 08/09/2023 COMP. METAB OLIC PANEL albumin 4.4 g/dL 3.5-5. 2 normal Not Available [facility] [address] [place] [address], [address], 08/09/2023 15:28:21 08/09/19 24 08/09/2023 COMP. METAB OLIC PANEL globulin 3.1 1.5-4. 5 normal Not Available [facility] [address] [place] [address], [address], 08/09/2023 15:28:21 08/09/19 24 08/09/2023 COMP. METAB OLIC PANEL albumin/glob ulin ratio 1.4 (calc ) 1.1-2. 5 normal Not Available [facility] [address] [place] [address], [address], 08/09/2023 15:28:21 08/09/19 24 08/09/2023 COMP. METAB OLIC PANEL bilirubin, total 0.9 mg/dL 0.1-1. 2 normal Not Available [facility] [address] [place] [address], [address], 08/09/2023 15:28:21 08/09/19 24 08/09/2023 COMP. METAB OLIC PANEL alkaline phosphatase 74 U/L 30-121 normal Not Available [facility] [address] [place] [address], [address], 08/09/2023 15:28:21 08/09/19 24 08/09/2023 COMP. METAB OLIC PANEL AST 15 U/L 0-32 normal Not Available [facility] [address] [place] [address], [address], 08/09/2023 15:28:21 08/09/19 24 08/09/2023 COMP. METAB OLIC PANEL ALT 10 U/L 0-33 normal Not Available [facility] [address] [place], [address], 08/09/2023 15:28:21 08/09/19 24 08/09/2023 COMP. METAB [...] s/KDO QI/gf r_cal culat orPed Not Available [facility] [address] [place], [address], 08/09/2023 15:28:21 08/09/19 24 08/09/2023 LDH LDH 175 U/L 135-23 3 normal Not Available [facility] [address] [place], [address], 08/09/2023 15:29:25 02/18/20 22 02/05/2022 CT, abdom en + pelvi s, w/ contr ast No observ ation record ed. [email or web address] [facility] (Med Record) [address], [place], [address], 05/26/2022 14:25:37 03/30/20 23 03/30/2023 PET-C T, skull base to mid-t high scan [facility] [address] [place] [address] ay [facility] [place] [address] Patien t Name: ABIMAEL IVERSON Patien t : [birth year] Patien t 7 Orderi ng Provid er: LESA COSTA EXAM DATE: 2022 EXAM: PET-CT TUMOR SKULL BASE-M ID THIGH [facility] AL INFORM ATION: Head and Neck Cancer - Restag ing. Dense base cancer . PROCED URE: Baseli ne blood glucos e level was 134 mg/dL. 11.58 mCi F-18 FDG ([facility] [address]- 0511-3 0) was inject ed IV. After [...] David Merida MD on 2022 1:[address] Radiology [facility] [address] [place], [address], 01/27/2024 11:07:00 Result Notes None recorded. 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 Procedures Surgical History Date Name Laterality Status Provider Name and Address Organization Details Recorded Time Chemo Nurse Assessment completed Alexa Renae [facility] 06/02/2021 16:26:14 Imaging Results Imaging Date Name Status LastModified by Organiz ation Details LastModified Time 02/05/2022 CT, abdomen + pelvis, w/ contrast completed [address] (Med Record) [address], [place], [address], 05/26/2022 14:25:37 03/30/2023 PET-CT, skull base to mid-thigh scan completed [address] [facility] [address] [place], [address], 01/27/2024 11:07:00 Procedure Notes None recorded. Medical Equipment None Reported. Allergies Allergen ID Allergen Name Allergen Category Reaction Reaction Severity Criticality Documentation Date Start Date Code Code System Note Provider Name and Address Organization Details Recorded Time 462591 Product containin g 3-hydroxy -3-methyl glutaryl- coenzyme A reductase inhibitor (product) medicatio n Not available Not available Not available 12/26/2018 72852 009 SNOMED [facility] 11:55:37 Medications Name Sig Start Date [...] Updated DateTime 2 167.64 cm 38.6 kg/m2 787449. 58 g 97.3 [degF] 85 /min 95 % 95 % 117 mm[Hg] 78 mm[Hg] Dinah Colbert [facility] 2 13:27:07 Date Recorded Body height Body mass index (BMI) Body weight Body temperature Heart rate Oxygen saturation Oxygen saturation in Arterial blood by Pulse oximetry Systolic blood pressure Diastolic blood pressure Provider Name and Address Organization Details Last Updated DateTime 2 167.64 cm 42.3 kg/m2 947394. 55 g 99.1 [degF] 90 /min 96 % 96 % 122 mm[Hg] 87 mm[Hg] Latoya Gayle [facility] 2 15:25:41 Date Recorded Body height Body mass index (BMI) Body weight Body temperature Heart rate Oxygen saturation Oxygen saturation in Arterial blood by Pulse oximetry Pain severity - 0-10 verbal numeric rating [Score] - Reported Systolic blood pressure Diastolic blood pressure Provider Name and Address Organization Details Last Updated DateTime 2 167.64 cm 40.5 kg/m2 940110. 03 g 98 [degF] 81 /min 96 % 96 % 0 129 mm[Hg] 64 mm[Hg] Lucy kapoor [facility] 2 14:30:46 Date Recorded Body height Body mass index (BMI) Body weight Body temperature Heart rate Oxygen saturation Oxygen saturation in Arterial blood by Pulse oximetry Systolic blood pressure Diastolic blood pressure Provider Name and Address Organization Details Last Updated DateTime 3 167.64 cm 39.3 kg/m2 371254 g 98.3 [degF] 90 /min 97 % 97 % 145 mm[Hg] 92 mm[Hg] Elizabeth Vázquezchristiano [facility] 3 14:13:43 Date Recorded Body height Body mass index (BMI) Body weight Body temperature Pain severity - 0-10 verbal numeric rating [Score] - Reported Heart rate Oxygen saturation Oxygen saturation in Arterial blood by Pulse oximetry Systolic blood pressure Diastolic blood pressure Provider Name and Address Organization Details Last Updated DateTime 3 167.64 cm 37.8 kg/m2 736683. 66 g 97.7 [degF] 0 77 /min 91 % 91 % 147 mm[Hg] 90 mm[Hg] Lucy kapoor [facility] 3 13:19:06 Social History Question Answer Notes LastModified by Organizat ion Details LastModified Time Tobacco Smoking Status Former Smoker Skye Ty [facility] 05/09/2019 13:09:00 What Is Your Level [...] virus, quadrivalent, preservative 9 completed Skye Ty [facility] 05/09/2019 13:08:41 Influenza, high-dose, quadrivalent, PF 0 completed Skye Ty [facility] 02/19/2020 12:43:10 COVID-19, mRNA, LNP-S, PF, 100 mcg/0.5mL dose or 50 mcg/0.25mL dose 1 completed Skye Ty [facility] 07/01/2020 13:37:46 COVID-19, mRNA, LNP-S, PF, 100 mcg/0.5mL dose or 50 mcg/0.25mL dose 1 completed Skye Ty [facility] 12/02/2020 12:53:26 COVID-19, mRNA, LNP-S, PF, 100 mcg/0.5mL dose or 50 mcg/0.25mL dose 1 completed Dinah Colbert [facility] 08/04/2021 13:23:03 Influenza, high-dose, quadrivalent, PF 1 completed Dinah Colbert [facility] 08/04/2021 13:23:18 pneumococcal polysaccharide PPV23 8 completed iDnah Colbert [facility] 08/04/2021 13:23:32 Pneumococcal conjugate PCV 13 2 completed Dinah Colbert [facility] 08/04/2021 13:24:01 Influenza, split virus, quadrivalent, preservative 2 completed Lucy Gil [facility] 02/17/2022 14:22:09 Past Encounters Encounter ID Performer Location Encounter Start Date Encounter Closed Date Diagnosis/Indication Diagnosis SNOMED-CT Code Diagnosis ICD10 Code Diagnosis Note [id number] LESA COSTA MD HEM/[facility] [address] [place] [address] 05/11/2016 11:58:36 05/11/2016 14:15:47 [id number] LESA COSTA MD HEM/[facility] [address] [place] [address] 08/18/2016 12:10:51 08/18/2016 14:21:27 [id number] LESA COSTA MD HEM/[facility]C [facility] [address] [place] [address] 11/17/2016 12:10:53 11/17/2016 13:43:48 [id number] LESA COSTA MD HEM/[facility] [address] [place] [address] 01/11/2017 13:21:52 01/11/2017 14:58:19 [id number] LESA COSTA MD HEM/[facility]C [facility] [address] [place] [address] 05/18/2017 11:39:11 05/18/2017 12:55:13 [id number] LESA COSTA MD HEM/[facility]C [facility] [address] [place] [address] 08/17/2017 12:32:59 08/17/2017 14:27:17 [id number] LESA COSTA MD HEM/[facility]C [facility] [address] [place] [address] 11/09/2017 14:45:25 11/09/2017 15:50:59 [id number] LESA COSTA MD HEM/[facility]C [facility] [address] [place] [address] 12/21/2017 12:04:01 12/21/2017 13:34:16 [id number] LESA COSTA MD HEM/[facility]C [facility] [address] 6 01/17/2018 12:07:55 01/17/2018 14:11:32 [id number] LESA COSTA MD HEM/[facility]C [facility] [address] 6 02/15/2018 11:44:26 02/15/2018 13:23:48 [id number] LESA COSTA MD HEM/[facility]C [facility] [address] 6 03/15/2018 14:36:34 03/15/2018 15:45:06 [id number] GIOVANNI SHAH PA-C CARDIOLOG Y [address] [place] [address] 03/18/2018 10:49:48 03/18/2018 15:10:16 [id number] LESA COSTA MD HEM/[facility]C [facility] [address] [place] [address] 6 04/18/2018 12:17:31 04/18/2018 14:34:47 [id number] GIOVANNI SHAH PA-C CARDIOLOG Y [address] [place], [place] [address] [place] [address] 5 04/22/2018 11:21:47 04/22/2018 12:45:40 [id number] GIOVANNI SHAH PA-C CARDIOLOG Y [address] ,[address] [place] [address] 5 05/31/2018 10:11:34 05/31/2018 11:28:40 [id number] LESA COSTA MD HEM/[facility]C [facility] [address] [place] [address] 06/20/2018 09:48:09 06/20/2018 11:39:13 [id number] ADDISON GARSIA JR, MD GENERAL SURGERY SB [address] [place] [address] 08/02/2018 11:23:01 08/10/2018 08:30:14 [id number] VAN CORNELL MD ECHO [facility] [address] [place] [address] [place] [address] 08/31/2018 08:24:51 09/02/2018 14:35:45 [id number] GIOVANNI SHAH PA-C CARDIOLOG Y [address] [place] [address] 08/31/2018 08:25:59 08/31/2018 10:39:30 [id number] LESA COSTA MD HEM/[facility]C [facility] [address],[facility] [address] [place] [address] 09/19/2018 10:50:22 09/19/2018 12:29:35 [id number] GIOVANNI SHAH PA-C CARDIOLOG Y [address] [place] [address] 10/14/2018 14:37:27 10/14/2018 16:02:28 [id number] GIOVANNI SHAH PA-C CARDIOLOG Y [address] [place] [address] 12/13/2018 13:51:29 12/13/2018 14:51:29 [id number] LESA COSTA MD HEM/ONC SB CLOSED [address] [place] [address] 12/26/2018 11:52:40 12/26/2018 13:36:09 Overweight 443407725 E66.3 Encourage exercise and weight loss. Malignant lymphoma - small lymphocytic 800857402 C83.00 Given right supraclavi cular LU, we will obtain CT neck, chest. [id number] LESA COSTA MD HEM/ONC SB CLOSED [address] [place] [address] 05/09/2019 12:55:16 05/09/2019 14:08:42 Overweight 831702417 E66.3 Encourage exercise and weight loss. Malignant lymphoma - small lymphocytic 981146110 C83.00 Pt is doing well from this as she has no symptomati c LU or cytopenias . We will reimage in 3 months. I am unsure of the etiology of her symptoms are related to this but to her depression . 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 Pt's labs, exam and scan is stable. She was advised regarding COVID -19 precaution s. 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 03774365 C85.99 As above. Overweight 779415962 E66 .3 Encourage exercise and weight loss. Malignant lymphoma - small lymphocytic 805897134 C83.00 Pt is doing well from this as she has no symptomati c LU or cytopenias . We will reimage in 3 months pending her PE. [id number] LESA COSTA MD HEM/ONC SB CLOSED [address] [place] [address] 11/28/2019 14:36:02 11/28/2019 15:10:55 Malignant lymphoma of intra-abdominal lymph nodes 82528802 C85.93 CLL/SLL. Pt's labs, exam and scan is stable. She was advised regarding COVID -19 precaution s. She will continue on Imbruvica as prescribed . 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 24516885 C85.99 As above. [id number] LESA COSTA MD HEM/ONC SB CLOSED [address] [facility] [address] [place] [address] 02/19/2020 12:36:14 02/19/2020 13:05:30 Malignant lymphoma of intra-abdominal lymph nodes 38401372 C85.93 CLL/SLL. Pt's labs, exam and scan is stable 08/25/19. She was advised regarding COVID -19 precaution s. She will continue on Imbruvica as prescribed . Pt is doing well. Pt has received her flu shot. 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 21430607 C85.99 As above. [id number] LESA COSTA MD HEM/ONC SB CLOSED [address] [facility] [address] [place] [address] 07/01/2020 13:29:08 07/01/2020 14:54:44 Malignant lymphoma of intra-abdominal lymph nodes 96441420 C85.93 CLL/SLL. Pt's labs are stable. She was advised regarding COVID -19 precaution s. She will continue on Imbruvica as prescribed . Pt is doing well. Pt has received her flu shot and received her second COVID vaccine 06/28/20. 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 58917189 C85.99 As above. Stasis lidia matitis of lower limb due to chronic peripheral venous hypertension 671264872 I87.399 FU with cardiology and PT. [id number] LESA COSTA MD HEM/ONC SB CLOSED [address] [facility] [address] [place] [address] 12/02/2020 12:48:15 12/02/2020 13:16:37 Malignant lymphoma of intra-abdominal lymph nodes 35033901 C85.93 CLL/SLL. Pt's labs are pending. She was advised regarding COVID -19 precaution s. She will continue on Imbruvica as prescribed . Pt is doing well. Pt has received her flu shot and received her second COVID vaccine 06/28/20. I have instructed pt to take booster COVID vaccine. 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 74399127 C85.99 As above. Stasis lidia matitis of lower limb due to chronic peripheral venous hypertension 204622775 I87.399 FU with cardiology and PT. [id number] LESA COSTA MD HEM/ONC SB CLOSED [address] [facility],[address] [place] [address] 03/31/2021 12:14:48 03/31/2021 13:02:49 Malignant lymphoma of intra-abdominal lymph nodes 11761996 C85.93 CLL/SLL. Pt's labs are pending. She was advised regarding COVID -19 precaution s. She will hold Imbruvica as prescribed given her swelling and to see if that helps. Pt is doing well. Pt has received her flu shot and received her second COVID vaccine 06/28/20. I have instructed pt to take booster COVID vaccine. 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 16491348 C85.99 As above. Stasis lidia matitis of lower limb due to chronic peripheral venous hypertension 207215601 I87.399 FU with cardiology and PT. [id number] LESA COSTA MD HEM/ONC SB CLOSED [address] [facility],[address] [place] [address] 06/02/2021 12:15:50 06/02/2021 14:29:15 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 67984147 C85.99 As above. Malignant lymphoma of intra-abdominal lymph nodes 96970332 C85.93 CLL/SLL. Pt's labs are reviewed. She [...] limb due to chronic peripheral venous hypertension 724081947 I87.399 FU with cardiology and PT. Syncope 313522761 R55 I have asked pt to go to ER and she pleasantly declines. I wonder if this is secondary to hypoxemia with ambulation as her oxygen sats dropped in to the 80s. I also wish her to have her brain imaged. We are encouragin g her as well. [id number] LESA COSTA MD HEM/ONC SB CLOSED [address] [place] [address] 06/02/2021 15:53:28 06/02/2021 16:27:08 [id number] LESA COSTA MD HEM/ONC SB CLOSED [address] [place] [address] 08/04/2021 12:58:04 08/04/2021 13:55:28 Malignant lymphoma of intra-abdominal lymph nodes 36918611 C85.93 CLL/SLL. Pt's labs are reviewed. She [...] lymphoma of extranodal AND/OR solid organ site 06664411 C85.99 As above. [id number] LESA COSTA MD HEM/ONC SB CLOSED [address] [place] [address] 11/18/2021 15:10:29 11/18/2021 16:06:46 Malignant lymphoma of intra-abdominal lymph nodes 94190960 C85.93 CLL/SLL. Pt's labs are reviewed. She was advised regarding COVID -19 precaution s. She will continue to hold Imbruvica as prescribed given her swelling is improved and to see if that helps as her WBC is normal. Pt is doing well. 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 54458707 C85.99 As above. Atrial fibrillation 4943 6004 I48.91 [id number] LESA COSTA MD HEM/ONC SB CLOSED [address] [place] [address] 02/17/2022 13:13:11 02/17/2022 15:56:55 Malignant lymphoma of intra-abdominal lymph nodes 51996491 C85.93 CLL/SLL. Pt's labs are reviewed. She was advised regarding COVID -19 precaution s. She will continue to hold Imbruvica as prescribed given her swelling is improved and her WBC is normal. Pt is doing well. 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 19569450 C85.99 As above. [id number] LESA COSTA MD HEM/ONC SB CLOSED [address] [facility] [address] [place] [address] 05/26/2022 13:03:54 05/26/2022 14:36:10 Malignant lymphoma of intra-abdominal lymph nodes 71232538 C85.93 CLL/SLL. Pt's labs are reviewed. She was advised regarding COVID -19 precaution s. She will continue to hold Imbruvica as prescribed given her swelling is improved and her WBC is normal. Pt is doing well. 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 81575630 C85.99 As above. History of malignant neoplasm of skin 846920146 Z85.828 Obtain pathology. [id number] LESA COSTA MD HEM/ONC SB CLOSED [address] [facility] [address] [place], [place] [address] 1 09/01/2022 12:09:23 09/01/2022 14:15:37 Malignant lymphoma of intra-abdominal lymph nodes 07283198 C85.93 CLL/SLL. Pt's labs are reviewed. She will off all therapies. WBC is normal. Pt is doing well. 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 11671844 C85.99 As above. History of malignant neoplasm of skin 246307727 Z85.828 FU dermatolog y. [id number] MACK TORREZ MD ENT SB [address] [place] [address] 1 01/15/2023 13:08:12 01/15/2023 15:31:51 [id number] MACK TORREZ MD SURGERY SCHEDULE [address] [place] [address] 1 02/22/2023 10:51:07 02/22/2023 10:51:56 [id number] MACK TORREZ MD ENT SB [address] [place] [address] 1 05/11/2023 12:42:55 05/11/2023 15:23:03 Health Concerns Section Related Observation LastModified by Organization Detai ls LastModified Time None Recorded Concern Status LastModified by Organization Details LastModified Time None Recorded Advance Directives Directive None Recorded Payers Encounter Date Sequence Insurance Name Policy Number Policy Leon Covered Member ID Leon Member ID Guarantor Name 08/04/2021 1 [place] Shea Rice [id number] Shea Rice 11/18/2021 1 [place] Shea Rice [id number] Shea Rice 02/17/2022 1 [place] Shea Rice [id number] Shea Rice 05/26/2022 1 [place] Shea Rice [id number] Shea Rice 09/01/2022 1 [place] Shea Rice [id number] Shea Rice Notes Date Note Type Note Provider Name and Address Organization Details Recorded Time 2 text/html HPIReported bypatient.Advanced Directives / [employer] AuthorizationsAdvanced Directives? NO Dischargedischarge mode ambulatory; discharge disposition stable Distress ScreeningHas the distress screening been completed in the last 45 days? NO; Distress level 7 Practical Problemsno practical problems Family Problemsno family problems Emotional Problemsdepression;nervousn ess;loss of interest Spiritual/Religiousspiritua l/jewish problems? NO Physical Problemsconstipation;weight gain;eating/ingestion problem(indigestion);change s [...] last visit. LESA COSTA MD [address] [place], [address], [facility] 08/04/2021 13:49:19 2 text/html HPIReported bypatient.Advanced Directives / [employer] AuthorizationsAdvanced Directives? NO Dischargedischarge mode ambulatory; discharge disposition stable Distress ScreeningHas the distress screening been completed in the last 45 days? NO; Distress level 7 Practical Problemsno practical problems Family Problemsno family problems Emotional Problemsdepression;nervousn ess;loss of interest Spiritual/Religiousspiritua l/jewish problems? NO Physical Problemsweight gain;changes in urination;fatigue;feeling [...] months ago. LESA COSTA MD [address] [place], [address], [facility] 11/18/2021 15:59:20 11/01/202 2 text/html HPIReported bypatient.Advanced Directives / [employer] AuthorizationsAdvanced Directives? NO Dischargedischarge mode ambulatory; discharge disposition stable Distress ScreeningHas the distress screening been completed in the last 45 days? NO; Distress level 3 Practical Problemstreatment decisions stress Family Problemsno family problems Emotional Problemsdepression;nervousn ess;worry(Anxiety);loss of interest Spiritual/Religiousspiritua l/jewish problems? NO Physical Problemsfatigue;feeling swollen(Legs has lymphedema);sleep [...] she had a syncope. LESA COSTA MD [address] [place] [address], [phone], [facility] 02/17/2022 14:53:10 3 text/html HPIReported bypatient.Advanced Directives / [employer] AuthorizationsAdvanced Directives? NO Dischargedischarge mode ambulatory; discharge disposition stable Distress ScreeningHas the distress screening been completed in the last 45 days? NO; Distress level 6 Practical Problemstreatment decisions stress Family Problemsno family problems Spiritual/Religiousspiritua l/jewish problems? NO Physical Problemsfeeling swollen(Legs has lymphedema);memory/concentr [...] squamous cell carcinoma yesterday. LESA COSTA MD [address] [place] [address], [address], [facility] 05/26/2022 14:28:01 3 text/html HPIReported bypatient.Advanced Directives / Bio[employer] AuthorizationsAdvanced Directives? NO Dischargedischarge mode ambulatory; discharge disposition stable Distress ScreeningHas the distress screening been completed in the last 45 days? NO; Distress level 2 Practical Problemstreatment decisions stress Family Problemsno family problems Spiritual/Religiousspiritua l/jewish problems? NO Physical Problemsfatigue;feeling swollen(Legs has lymphedema);memory/concentr [...] with LE edema. LESA COSTA MD [address] [facility] [place], [address], [facility] 09/01/2022 13:33:31 OBGyn Episode No OBEpisode recorded.
--- NOTE | 2024-08-05 18:58 | CT_ITS ---
PROCEDURE INFORMATION: Exam: CT Cervical Spine Without Contrast Exam date and time: 08/05/2024 7:15 PM Age: 78 years old Clinical indication: Injury or trauma; Fall TECHNIQUE: Imaging protocol: Computed tomography of the cervical spine without contrast. Radiation optimization: All CT scans at this facility use at least one of these dose optimization techniques: automated exposure control; mA and/or kV adjustment per patient size (includes targeted exams where dose is matched to clinical indication); or iterative reconstruction. COMPARISON: CT CERVICAL SPINE WO CON 10/25/2020 10:42 PM FINDINGS: Bones: Craniocervical alignment is normal. The occipital condyles are intact. Normal variant incomplete posterior bony midline fusion of the C1 posterior ring incidentally noted. The odontoid is intact. Moderate osteoarthritic sclerosis and spurring at the atlantodens interval. No jumped or perched facets. Moderate multilevel bilateral osteoarthritic facet hypertrophy. No acute fractures. Mild chronic anterior wedging of the C4 superior endplate is stable in appearance from 10/25/2020, consistent with either chronic osteoarthritic remodeling or remote prior mild compression. Straightening of cervical lordosis may be positional or degenerative in nature, versus changes of muscular strain/spasm. No blastic or lytic lesions. Moderate disc space narrowing and marginal spurring C5-C6 and C6-C7. No significant canal stenosis. Mild left foraminal stenosis C5-C6. Lungs: Poorly marginated 3.2 x 3.0 cm masslike region partially visualized in the posterior right upper lobe appears increased in size, concerning for progression of disease. Thyroid: The visualized thyroid gland is unremarkable. Lymph nodes: Extensive bhakti enlargement involving all bilateral cervical bhakti distributions as well as the bilateral supraclavicular, bilateral axillary, and superior mediastinal distributions, increased from 11/11/2023, concerning for progression of the patient's known lymphoma. Soft tissues: No soft tissue hematoma or foreign body. IMPRESSION: 1. No evidence of acute fracture or traumatic subluxation. 2. Straightening of cervical lordosis may be positional or degenerative in nature, versus changes of muscular strain/spasm. 3. Partially visualized 3.2 cm poorly marginated masslike process in the posterior right upper lobe, with increase in size from 11/11/2023 concerning for disease progression. 4. Extensive adenopathy increased from 11/11/2023 concerning for disease progression.
--- NOTE | 2024-08-05 18:58 | XR_ITS ---
PROCEDURE INFORMATION: Exam: XR Left Tibia and Fibula Exam date and time: 08/05/2024 7:04 PM Age: 78 years old Clinical indication: Injury or trauma; Fall; Other: Skin tear TECHNIQUE: Imaging protocol: Radiologic exam of the left tibia and fibula. Views: 2 views. COMPARISON: US Lower Arterial 10/21/2018 9:58 AM FINDINGS: Bones/joints: Cemented left total knee arthroplasty in normal anatomic alignment, without evidence of acute complications. No acute fracture or dislocation. Degenerative changes of the tibiotalar joint, joint space narrowing osteophyte formation. Posterior and plantar calcaneal enthesophytes. Soft tissues: Normal. IMPRESSION: No acute fracture or dislocation.
--- NOTE | 2024-08-05 18:58 | CT_ITS ---
PROCEDURE INFORMATION: Exam: CT Head Without Contrast Exam date and time: 08/05/2024 7:13 PM Age: 78 years old Clinical indication: Injury or trauma; Fall; Additional info: Fall on warfarin TECHNIQUE: Imaging protocol: Computed tomography of the head without contrast. Radiation optimization: All CT scans at this facility use at least one of these dose optimization techniques: automated exposure control; mA and/or kV adjustment per patient size (includes targeted exams where dose is matched to clinical indication); or iterative reconstruction. COMPARISON: CT ANGIO HEAD 12/19/2022 5:32 PM FINDINGS: Brain: Moderate generalized cerebral/cerebellar atrophy. Mild-moderate bilateral white matter hypodensities which are nonspecific but most commonly associated with chronic microvascular ischemia in this age group. The IACs are grossly normal. No extra-axial fluid collections. Moderate prominence of the peripheral frontal CSF spaces, related to atrophy. No evidence of acute intracranial hemorrhage. Cerebral/cerebellar anderson-white matter differentiation is well maintained. No CT evidence of large territory acute or subacute intracranial ischemia/infarct. No intracranial mass lesions. No midline shift or herniation. Cerebral ventricles: Moderate compensatory ventriculomegaly secondary to central atrophy. Pituitary gland and sella: The sella is grossly normal. Paranasal sinuses: Visualized paranasal sinuses are clear. Mastoid air cells: Visualized mastoid air cells are clear. Orbital cavities: No acute intraorbital findings. Prior bilateral ocular cataract surgery. Bones: No acute osseous findings. Soft tissues: High left frontal scalp soft tissue swelling, with no underlying fracture or foreign body. Vasculature: Mild-moderate calcific atherosclerosis. No asymmetric vascular hyperdensities suggestive of thrombosis are identified. IMPRESSION: 1. No acute intracranial process. No intracranial hemorrhage or mass effect. 2. High left frontal scalp swelling with no underlying fracture or foreign body. 3. Atrophy and microvascular changes consistent with age.
--- NOTE | 2024-08-05 18:58 | PC.NURSE ---
Report received from Lul VÁSQUEZ Pt resting quietly in bed Multiple bruises noted to left arm IV site without redness or edema. Skin pale warm and dry Resp full and easy Speech clear and appropriate Pt has c-collar in place. Pt on 2 lpm nasal O2. Pt in atrial fib per continuous heart monitor
--- NOTE | 2024-08-05 18:58 | PC.NURSE ---
Called Radiology and let them know Dr Aguilera does not want to wait for labs prior to scans. Stated they would be at bedside shortly to collect pt.
--- NOTE | 2024-08-05 19:00 | HMH.EDGENADL ---
Discharge Plan Disposition Patient Disposition: Home, Self-Care Chief Complaint: Fall Prescriptions Prescriptions: No Action paroxetine HCl 40 mg tablet 40 mg PO DAILY cyanocobalamin (vitamin B-12) 1,000 mcg/mL solution 100 mcg SQ .every two weeks losartan 100 mg tablet See Rx Instructions .ROUTE .COMPLEX Qty: 90 4RF Dose Instruction: TAKE ONE TABLET BY MOUTH ONCE A DAY Rx Instructions: TAKE ONE TABLET BY MOUTH ONCE A DAY furosemide 40 mg tablet 40 mg PO DAILY Qty: 30 5RF rosuvastatin 5 mg tablet See Rx Instructions .ROUTE .COMPLEX Qty: 90 3RF Dose Instruction: TAKE ONE TABLET BY MOUTH ONCE A DAY FOR CHOLESTEROL Rx Instructions: TAKE ONE TABLET BY MOUTH ONCE A DAY FOR CHOLESTEROL clonazepam 0.5 mg tablet 0.5 mg PO DAILY albuterol sulfate 90 mcg/actuation HFA aerosol inhaler 2 inh inhalation Q6H PRN (Reason: shortness of breath or wheezing) 90 Days Qty: 8.5 1RF metoprolol succinate 50 mg tablet extended release 24 hr See Rx Instructions .ROUTE .COMPLEX Qty: 180 1RF Dose Instruction: TAKE ONE TABLET BY MOUTH 2 TIMES A DAY Rx Instructions: TAKE ONE TABLET BY MOUTH 2 TIMES A DAY warfarin 5 mg tablet 2.5 mg PO MOWEFR warfarin 5 mg tablet 5 mg PO SUTUTHSA meclizine 25 mg tablet 25 mg PO TID PRN (Reason: dizziness) Qty: 20 0RF ergocalciferol (vitamin D2) 50,000 UNIT capsule 50,000 units PO WEEKLY omeprazole 20 MG capsule,delayed release(DR/EC) 40 mg PO DAILY Referrals Follow up/Referrals: Oren Pressley MD [Primary Care Provider] - See instructions Activity Restrictions/Add. Instructions Additional Instructions/Restrictions: At this time it was felt you are safe to be discharged home. If new or worsening symptoms please do not hesitate to return the emergency department. Please change the dressing over your skin tear once every day or so using a thin layer of Vaseline followed by nonstick pad followed by wrap. Do not put antibiotic ointment on it. Please maintain your follow-up with your oncologist this coming Wednesday. Use your walker at home whenever you are mobile. Clinical Impressions Clinical Impression: Vasovagal syncope, Skin tear, Lymphoma, Mass in chest, Adenopathy Print Language Print Language: Comoran Discharge ED Provider: Joe Aguilera General Adult HPI General Chief complaint: Fall Stated complaint: Fall Time Seen by Provider: 08/05/24 18:51 Mode of Arrival: EMS Source of Information: Patient Description of Symptoms (Recalled from ER Triage Doc. by RN): pt was at home sitting on toilet then remembers waking up on floor History of Present Illness HPI narrative: Patient is a 78-year-old female past medical history of atrial fibrillation on warfarin who presents emergency department for evaluation of a fall. Patient was on the toilet when She notes she woke up on the floor. She is not hurting anywhere but noticed that her left bower was bleeding, C-spine precautions initiated prior to arrival. She has a history of lymphoma and has been weak which she attributes to decreased p.o. intake recently. Her lymphoma was in remission status post chemotherapy, no radiation however it is back and she is pending continued evaluation. Not complaining of any pain at this time. Tdap not up-to-date. Please note that above description of symptoms, in this electronic medical record under categorization of recalled from ER triage doctor by RN are reflective of an initial nursing assessment, however, is not reflective of my full history and physical exam that was personally taken and clarified. Consequentially, this preceding description of symptoms, which may include the patient's categorized chief complaint in the EMR, do not reflect my personal clinical impression, and the ultimate description of history of present illness and patient stated complaints should be deferred to this section of the note. Unless stated otherwise or congruent with this section of the note, additional signs, symptoms, or incongruence should be interpreted as inaccurate with my clinical impression. Related Data Home Medications ?Medication ?Instructions ?Recorded ?Confirmed paroxetine HCl 40 mg tablet 40 mg PO DAILY mood 08/08/18 03/30/24 clonazepam 0.5 mg tablet 0.5 mg PO DAILY Anxiety 03/11/20 03/30/24 ergocalciferol (vitamin D2) 1,250 50,000 units PO WEEKLY 08/28/21 03/30/24 mcg (50,000 unit) capsule supplementation omeprazole 20 mg capsule,delayed 40 mg PO DAILY GERD 12/04/21 03/30/24 release warfarin 5 mg tablet 2.5 mg PO MOWEFR AFIB 04/13/22 06/28/24 warfarin 5 mg tablet 5 mg PO SUTUTHSA AFIB 04/13/22 06/28/24 cyanocobalamin (vitamin B-12) 100 mcg SQ .every two weeks 01/27/24 03/30/24 1,000 mcg/mL injection solution Previous Rx's ?Medication ?Instructions ?Recorded albuterol sulfate 90 mcg/actuation 2 inh inhalation Q6H PRN shortness 10/27/22 aerosol inhaler of breath or wheezing 90 days #8.5 grams meclizine 25 mg tablet 25 mg PO TID PRN dizziness #20 tabs 12/19/22 furosemide 40 mg tablet 40 mg PO DAILY Fluid #30 tabs 01/27/24 losartan 100 mg tablet See Rx Instructions .Route 01/27/24 .COMPLEX #90 tabs rosuvastatin 5 mg tablet See Rx Instructions .Route 01/27/24 .COMPLEX #90 tabs metoprolol succinate 50 mg See Rx Instructions .Route 03/14/24 tablet,extended release 24 hr .COMPLEX #180 tabs Allergies Allergy/AdvReac Type Severity Reaction Status Date / Time No Known Allergies Allergy Verified 08/05/24 18:58 [facility] Disclaimer: The information contained in this section may have been updated after the patient was seen, as this information can be updated by other users. Medical History Asthma Pulmonary hypertension Multiple pulmonary nodules Shortness of breath Abnormal computerized axial tomography of chest Dyspnea on exertion Pulmonary nodule 1 cm or greater in diameter PAF (paroxysmal atrial fibrillation) Dyspnea Pulmonary hypertension SOB (shortness of breath) Surgical History History of arthroscopic knee surgery History of tonsillectomy History of cardiac cath Family History Other Cancer Coronary artery disease Hyperlipidemia Hypertension Social History Smoking Status: Never smoker alcohol intake: never substance use type: denies use current occupational status: unemployed and retired Travel in the last 8 weeks: None household members: none housing: house current occupational exposures/hazards: No caffeine: Yes Have you lived/traveled outside US in past 30 days?: No Contact w/someone who lives/traveled outside US past 30 days?: No Exposure to someone with infectious disease in past 14 days?: No Do you have a fever (greater than 100.4 F or 38 C)?: No Have you tested positive for COVID-19: No Exposed to someone with COVID-19 in past 14 days?: No Do you have a sore throat?: No Do you have a cough?: No Do you have any weakness?: No Do you have any diarrhea?: No Are you experiencing any unusual bleeding?: No Do you have any muscle aches/pain?: No Do you have any abdominal pain?: No Are you experiencing loss of taste or smell?: No Other Medical History Have you received the Flu Vaccine for this season: No Have you received the Pneumonia Vaccine: Yes ROS Obtained: Yes Systems reviewed as appropriate & no additional complaints except as documented Physical Exam General General appearance: alert and in no apparent distress Head Head exam: atraumatic and normocephalic Eye Eye exam: Present PERRL and EOMI ENT ENT exam: Present mucous membranes moist Neck Neck exam: Present normal inspection Chest Chest inspection: Present normal inspection and symmetric chest wall rise Respiratory Respiratory exam: Present normal lung sounds bilaterally; Absent respiratory distress Cardiovascular Cardiovascular exam: Present regular rate and normal rhythm Abdominal Exam Abdominal exam: Present soft; Absent tenderness Extremities Exam Extremities exam: Absent normal inspection (Triangular skin tear left bower that is hemostatic. No tenderness over the bilateral upper and lower extremities with the exception of open wound.) Back Exam Back exam: Present normal inspection; Absent tenderness Neurological Exam Neurological exam: Present alert and CN II-XII intact; Absent motor sensory deficit Psychiatric Psychiatric exam: Present normal affect Skin Skin exam: Present warm and dry Medical Decision Making Medical Records Screening: Per USPSTF and CDC recommendations, given the prevalence of disease in our region, it is our hospital?s policy to screen for HIV and viral Hepatitis for all patients aged 18 and over and those with ongoing risk factors. Maximus Inquiry Pt receiving controlled substance: No Vital Signs: 08/05/24 18:52 08/05/24 19:01 08/05/24 19:31 Temperature 98.2 F Temperature Source Oral Pulse Rate 58 L 65 Pulse Rate [Left Radial] 68 Respiratory Rate 14 17 15 Blood Pressure 146/91 H 161/71 H Blood Pressure [Right Arm] 154/82 H Blood Pressure Mean [Right Arm] 106 02 Sat by Pulse Oximetry 95 93 L 92 L Oxygen Delivery Method Nasal Cannula Room Air Room Air Oxygen Flow Rate (LPM) 2 08/05/24 20:01 Temperature Temperature Source Pulse Rate 71 Pulse Rate [Left Radial] Respiratory Rate 8 L Blood Pressure 168/78 H Blood Pressure [Right Arm] Blood Pressure Mean [Right Arm] 02 Sat by Pulse Oximetry 90 L Oxygen Delivery Method Room Air Oxygen Flow Rate (LPM) Lab Data Lab Results 08/05/24 18:41: POC Glucose 122 H 08/05/24 18:48: WBC 43.1 H*, RBC 3.98 L, Hgb 11.9 L, Hct 37.4, MCV 94.0, MCH 29.9, MCHC 31.8, RDW 16.8, Plt Count 133 L, MPV 9.6, Neut % (Auto) 8.0 L, Lymph % (Auto) 90.0 H, [place] % (Auto) 1.3 L, Eos % (Auto) 0.3, Baso % (Auto) 0.3, Neut # (Auto) 3.5, Lymph # (Auto) 38.7 H, [place] # (Auto) 0.6, Eos # (Auto) 0.1, Baso # (Auto) 0.1, Total Counted 100, Neutrophils % (Manual) 8 L, Lymphocytes % (Manual) 86 H, Monocytes % (Manual) 1 L, Promyelocytes % 1, Blast Cells % 4.0, Platelet Estimate Slight decrease, RBC Morphology Normal, Sodium 138, Potassium 4.8, Chloride 105, Carbon Dioxide 22, Anion Gap 15.8 H, BUN 16, Creatinine 1.40 H, Estimated Creat Clear 44, Estimated GFR 36 L, Est GFR ( Amer) 44 L, Glucose 123 H, Calcium 9.1, Magnesium 1.8, Total Bilirubin 1.2, AST 42 H, ALT 20, Alkaline Phosphatase 72, Total Protein 7.3, Albumin 4.4, Globulin 2.9, Albumin/Globulin Ratio 1.5 08/05/24 18:48 08/05/24 18:48 Orders (Tests/Meds): ED MEDICATIONS Discontinued Medications Generic Name Dose Route Start Last Admin Trade Name Freq PRN Reason Stop Dose Admin Tetanus/Reduced Diphtheria/Acell Pertussis 0.5 ml 08/05/24 18:58 08/05/24 19:42 Tet/Diphth/Pert-Adult 0.5ml Syringe IM 08/05/24 18:59 0.5 ml .ONCE ONE Administration ORDERS Category Date Time Status CT cervical spine wo con Stat Cat Scan 08/05/24 18:[address] head/brain wo con Stat Cat Scan 08/05/24 18:58 Completed Fibula/tibia XR left 2 views [XR tibia fibula LT 2V] Exams 08/05/24 18:58 Completed Stat Knee XR left 3 views [XR knee LT 3V] Stat Exams 08/05/24 19:33 Completed CBC w/Auto Diff [Complete Blood Count Auto Diff] Stat Lab 08/05/24 18:48 Completed CMP [Comprehensive Metabolic Panel] Stat Lab 08/05/24 18:48 Completed MG [Magnesium] Stat Lab 08/05/24 18:48 Completed POC Glucose,Bedside Routine Lab 08/05/24 18:41 Completed ECG Data Tracing #1: Independently interpreted by me rate of 68, rhythm is irregular, axis is normal, no ST elevation in anatomical contiguous leads, atrial fibrillation. QTc 423 Medical Decision Narrative: In summary patient is a 78-year-old female with past medical history described above who presents emergency department for evaluation of a fall. Patient is hemodynamically stable nontoxic-appearing upon arrival, afebrile. Patient has classic story for vasovagal syncope. Tdap will be updated. Wound will be dressed over the left lower extremity and plain film will be obtained, it is not amenable to primary repair given that it is a skin tear. C-spine precautions will be continued, screening for weakness secondary to metabolic derangement will be conducted with hematologic labs and urinalysis. Noncontrasted CT scan of the head and cervical spine will be obtained immediately. Imaging of the thorax and abdomen was considered however given the patient is nontender has no obvious external trauma will be deferred at this time. Initial workup reviewed by me, significant leukocytosis of 43.1 which aligns with her resurgence of lymphoma history with lymphocytic predominance. Chronic CKD without JACIEL per rifle criteria, no critical electrolyte abnormality. CT imaging of the head informally visualized by me, no large intra-axial hemorrhage. Formal read plain films of the left knee and tib-fib negative for acute fracture. Cervical spine CT 3.2 cm poorly marginated masslike process in the posterior right upper lobe increased in size from previously with extensive adenopathy also worsening concerning for disease progression which is in alignment with her history. I relayed these results to the patient, she has definitive follow-up this coming Wednesday with [facility]. Patient underwent ambulatory trial and was successful. She has a rollator at home which she does not use but she was instructed to use for the foreseeable future until she gets better. Patient is appropriate for discharge at this time was given return precautions. Critical Care Critical Care Time Critical Care Time: No
[2024-08-05 19:01] VITALS: BP 146/91; PULSE 58; RESP 17; O2SAT 93
[2024-08-05 19:07] LABS: Albumin Level 4.4 g/dl (3.5-5.0); Chloride 105 mmol/L (98-107); Potassium 4.8 mmoL/L (3.5-5.1); Sodium 138 mmol/L (136-145)
[2024-08-05 19:10] LABS: Alanine Aminotransferase 20 U/L (12-78); Albumin/Globulin Ratio 1.5 (1.1-1.8); Alkaline Phosphatase 72 U/L (38-126); Anion Gap 15.8 mEq/L (5-15); Aspartate Amino Transferase 42 U/L (14-36); Bilirubin,Total 1.2 mg/dl (0.2-1.3); Blood Urea Nitrogen 16 mg/dl (7-17); Calcium 9.1 mg/dl (8.4-10.2); Carbon Dioxide 22 mmol/L (22.0-30.0); Creatinine Clearance Estimated 44 mL/min (50-200); Estimated Glomerular Filt Rate 36 ml/min (>60); GFR (African American) 44 ML/MIN (>60); Globulin 2.9 g/dL (1.3-3.2); Glucose 123 mg/dl (74-100); Total Protein,Serum 7.3 g/dl (6.3-8.2)
[2024-08-05 19:11] LABS: Magnesium 1.8 mg/dl (1.6-2.3)
[2024-08-05 19:13] LABS: Basophils # 0.1 K/mm3 (0-0.2); Basophils % 0.3 % (0.1-2.0); Eosinophils # 0.1 Kmm3 (0.0-0.4); Eosinophils % 0.3 % (0.1-12.0); Hematocrit 37.4 % (37.0-47.0); Hemoglobin 11.9 g/dL (12.2-16.2); Lymphocytes # 38.7 K/mm3 (0.7-4.5); Mean Corpuscular HGB Conc 31.8 g/dL (31.8-35.4); Mean Corpuscular Hemoglobin 29.9 pg (27.0-31.2); Mean Platelet Volume 9.6 fl (7.4-10.4); Monocytes # 0.6 K/mm3 (0.1-1.0); Monocytes % 1.3 % (1.7-9.3); Neutrophils # 3.5 K/mm3 (1.8-7.8); Nucleated Red Blood Cells # 0 10^3/uL; Nucleated Red Blood Cells % 0 %; Platelet Count 133 K/mm3 (142-424); Red Blood Count 3.98 M/mm3 (4.20-5.40); Red Cell Distribution Width 16.8 % (11.5-17.5); Red Cell Distribution Width-SD 57.5 fL
--- NOTE | 2024-08-05 19:16 | PC.NURSE ---
Pt in CT scan
--- NOTE | 2024-08-05 19:19 | PC.NURSE ---
Pt back from CT scan
--- NOTE | 2024-08-05 19:19 | PC.NURSE ---
pt back from rad by stretcher at this time
[2024-08-05 19:20] LABS: White Blood Count 43.1 K/mm3 (4.8-10.8)
[2024-08-05 19:21] LABS: MANUAL DIFFERENTIAL MANUAL DIFFERENTIAL (MANUAL DIFF)
--- NOTE | 2024-08-05 19:21 | PC.NURSE ---
lab called critical of WBC-43.1
[2024-08-05 19:31] VITALS: BP 161/71; PULSE 65; RESP 15; O2SAT 92
--- NOTE | 2024-08-05 19:33 | XR_ITS ---
PROCEDURE INFORMATION: Exam: XR Left Knee Exam date and time: 08/05/2024 7:56 PM Age: 78 years old Clinical indication: Injury or trauma; Fall; Other: Pain TECHNIQUE: Imaging protocol: Radiologic exam of the left knee. Views: 3 views. COMPARISON: CR XR KNEE LT 3V 10/25/2020 10:52 PM FINDINGS: Bones/joints: Cemented left total knee arthroplasty in normal anatomic alignment, without acute complications. No acute fracture or dislocation. Soft tissues: Normal. IMPRESSION: No acute fracture or dislocation.
--- NOTE | 2024-08-05 19:34 | PC.NURSE ---
Left lower leg skin tear cleaned and dressed with adaptic and sterile gauze
[2024-08-05 19:35] LABS: Lymphocytes % 86 % (10-50); Monocytes % 1 % (2-9); Neutrophils % 8 % (42-76); Promyelocytes % 1 %; RBC Morphology Normal; Total Cells Counted 100
[2024-08-05 19:36] LABS: Platelet Estimate Slight Decrease
[2024-08-05] MEDS: TET/DIPHTH/PERT-ADULT 0.5ML SYRINGE 0.5 ML IM (19:42)
--- NOTE | 2024-08-05 19:56 | PC.NURSE ---
xray done at bedside
[2024-08-05 20:01] VITALS: BP 168/78; PULSE 71; RESP 8; O2SAT 90
--- NOTE | 2024-08-05 20:19 | PC.NURSE ---
Pt ambulatory with walker and stand by assist. Pt aware of plans for discharge
[2024-08-05 20:27] VITALS: BP 168/78; PULSE 64; RESP 16; TEMP 36.6; O2SAT 93
== END 2024-08-05 20:29 | disposition home or self-care (01) ==
PROVIDERS: Emergency Provider Emergency Medicine; PCP Internal Medicine Adolescent Medicine
DX: R55 Syncope and collapse (principal); I48.91 Unspecified atrial fibrillation; S81.802A Unspecified open wound, left lower leg, initial encounter; C85.90 Non-Hodgkin lymphoma, unspecified, unspecified site; R22.2 Localized swelling, mass and lump, trunk; W18.12XA Fall from or off toilet with subsequent striking against object, initial encounter; Z23 Encounter for immunization
CPT/HCPCS: 70450; 72125; 73562; 73590; 80053; 82962; 83735; 85007; 85025; 85027; 90471; 90715; 93005; 99285

== ENCOUNTER 2024-09-04 14:10 | Outpatient (CLI) | payer MEDICARE, SELFPAY ==
--- OUTSIDE RECORDS SUMMARY | 2024-09-04 14:14 | XMS_ITS | Data Portability ---
Author Organization [facility] Address [address] [place] [id number] Care Team Providers Care Supervisor Shearing Name Role Phone LESA COSTA Hematology/Oncology [phone] ADDISON GARSIA JR General Surgeon ZULEYMA HARP Animal Care Worker Assessment Encounter Date Assessment Date Assessment LastModified by Organization Details LastModified Time 08/04/2021 08/04/2021 RTC in 3 months with CBC, CMP, LDH and uric acid. Please give pt copy of labs. [email or web address] Not available 08/04/2021 13:48:52 11/18/2021 11/18/2021 RTC in 3 months with CBC, CMP, LDH and uric acid. Labs today CBC, CMP, LDH and uric acid. Not available 11/18/2021 15:53:34 02/17/2022 02/17/2022 RTC in 3 months with CBC, CMP, LDH and uric acid. Please give pt copy of labs. Please get CT results from [place]. [email or web address] Not available 02/17/2022 14:52:39 05/26/2022 05/26/2022 RTC in 3 months with CBC, CMP, LDH and uric acid. Please give pt copy of labs. Please get pathology from [facility]. Not available 05/26/2022 14:27:02 09/01/2022 09/01/2022 RTC in 4 months with CBC, CMP, LDH and uric acid. Please give pt copy of labs. [email or web address] Not available 09/01/2022 13:32:17 Plan of Treatment [...] 6.0 K/uL 3.8-10 .8 normal Not Available [facility] [address] [place] [address], [address], 08/04/2021 13:14:55 08/05/19 22 08/04/2021 COMPL ETE BLOOD COUNT red blood cells 3.89 M/uL 3.80-5 .20 normal Not Available [facility] [address] [place] [address], [address], 08/04/2021 13:14:55 08/05/19 22 08/04/2021 COMPL ETE BLOOD COUNT hemoglobin 11.9 g/dL 12.0-1 6.0 low Not Available [facility] [address] [place] [address], [address], 08/04/2021 13:14:55 08/05/19 22 08/04/2021 COMPL ETE BLOOD COUNT hematocrit 36.0 % 35.0-4 7.0 normal Not Available [facility] [address] [place] [address], [address], 08/04/2021 13:14:55 08/05/19 22 08/04/2021 COMPL ETE BLOOD COUNT MCV 93 fL 80-100 normal Not Available [facility] [address] [place] [address], [address], 08/04/2021 13:14:55 08/05/19 22 08/04/2021 COMPL ETE BLOOD COUNT MCH 31 pg 26-35 normal Not Available [facility] [address] [place] [address], [address], 08/04/2021 13:14:55 08/05/19 22 08/04/2021 COMPL ETE BLOOD COUNT MCHC 33 g/dL 32-36 normal Not Available [facility] [address] [place] [address], [address], 08/04/2021 13:14:55 08/05/19 22 08/04/2021 COMPL ETE BLOOD COUNT RDW 15.0 % 11.0-1 5.0 normal Not Available [facility] [address] [place] [address], [phone], 08/04/2021 13:14:55 08/05/19 22 08/04/2021 COMPL ETE BLOOD COUNT MPV 7.1 fL 6.2-10 .5 normal Not Available [facility] [address] [place] [address], [address], 08/04/2021 13:14:55 08/05/19 22 08/04/2021 COMPL ETE BLOOD COUNT platelet count 131 K/uL 130-40 0 normal Not Available [facility] [address] [place] [address], [address], 08/04/2021 13:14:55 08/05/19 22 08/04/2021 COMPL ETE BLOOD COUNT neutrophil,a bsolute 4.0 K/uL 1.6-8. 4 normal Not Available [facility] [address] [place] [address], [address], 08/04/2021 13:14:55 08/05/19 22 08/04/2021 COMPL ETE BLOOD COUNT lymphocyte,a bsolute 1.3 K/uL 0.4-5. 1 normal Not Available [facility] [address] [place] [address], [address], 08/04/2021 13:14:55 08/05/19 22 08/04/2021 COMPL ETE BLOOD COUNT monocyte,abs olute 0.4 K/uL 0.0-1. 2 normal Not Available [facility] [address] [place] [address], [address], 08/04/2021 13:14:55 08/05/19 22 08/04/2021 COMPL ETE BLOOD COUNT eosinophil,a bsolute 0.1 K/uL 0.0-0. 8 normal Not Available [facility] [address] [place] [address], [address], 08/04/2021 13:14:55 08/05/19 22 08/04/2021 COMPL ETE BLOOD COUNT basophil,abs olute 0.0 K/uL 0.0-0. 3 normal Not Available [facility] [address] [place] [address], [address], 08/04/2021 13:14:55 08/05/19 22 08/04/2021 COMPL ETE BLOOD COUNT % neutrophils 68.0 % 42.0-7 8.0 normal Not Available [facility] [address] [place] [address], [address], 08/04/2021 13:14:55 08/05/19 22 08/04/2021 COMPL ETE BLOOD COUNT % lymphocytes 21.8 % 11.0-4 7.0 normal Not Available [facility] [address] [place] [address], [address], 08/04/2021 13:14:55 08/05/19 22 08/04/2021 COMPL ETE BLOOD COUNT % monocytes 7.3 % 0.0-11 .0 normal Not Available [facility] [address] [place] [address], [address], 08/04/2021 13:14:55 08/05/19 22 08/04/2021 COMPL ETE BLOOD COUNT % eosinophils 2.1 % 0.0-7. 0 normal Not Available [facility] [address] [place] [address], [address], 08/04/2021 13:14:55 08/05/19 22 08/04/2021 COMPL ETE BLOOD COUNT % basophils 0.8 % 0.0-3. 0 normal Not Available [facility] [address] [place] [address], [address], 08/04/2021 13:14:55 08/05/19 22 08/04/2021 COMPL ETE BLOOD COUNT nucleated red cells 0.1 % 0.0-0. 9 normal Not Available [facility] [address] [place] [address], [address], 08/04/2021 13:14:55 08/05/19 22 08/04/2021 COMPL ETE BLOOD COUNT nucleated RBCs, absolute 0.01 K/uL not estab. normal Not Available [facility] [address] [place] [address], [address], 08/04/2021 13:14:55 08/05/19 22 08/04/2021 COMP. METAB OLIC PANEL glucose 99 mg/dL 74-100 normal Not Available [facility] [address] [place] [address], [address], 08/04/2021 14:32:05 08/05/19 22 08/04/2021 COMP. METAB OLIC PANEL blood urea nitrogen 23 mg/dL 6-20 high Not Available [facility] [address] [place] [address], [address], 08/04/2021 14:32:05 08/05/19 22 08/04/2021 COMP. METAB OLIC PANEL creatinine 1.69 mg/dL 0.50-0 .95 high Not Available [facility] [address] [place] [address], [address], 08/04/2021 14:32:05 08/05/19 22 08/04/2021 COMP. METAB OLIC PANEL BUN/creatini ne ratio 14 (calc ) 10-20 normal Not Available [facility] [address] [place] [address], [address], 08/04/2021 14:32:05 08/05/19 22 08/04/2021 COMP. METAB OLIC PANEL sodium 139 mmol/ L 136-14 5 normal Not Available [facility] [address] [place] [address], [address], 08/04/2021 14:32:05 08/05/19 22 08/04/2021 COMP. METAB OLIC PANEL potassium 4.1 mmol/ L 3.4-5. 0 normal Not Available [facility] [address] [place] [address], [address], 08/04/2021 14:32:05 08/05/19 22 08/04/2021 COMP. METAB OLIC PANEL chloride 105 mmol/ L 98-107 normal Not Available [facility] [address] [place] [address], [address], 08/04/2021 14:32:05 08/05/19 22 08/04/2021 COMP. METAB OLIC PANEL carbon dioxide 20 mmol/ L 22-31 low Not Available [facility] [address] [place] [address], [address], 08/04/2021 14:32:05 08/05/19 22 08/04/2021 COMP. METAB OLIC PANEL anion gap 14 (calc ) 7-25 normal Not Available [facility] [address] [place] [address], [address], 08/04/2021 14:32:05 08/05/19 22 08/04/2021 COMP. METAB OLIC PANEL calcium 9.0 mg/dL 8.6-10 .2 normal Not Available [facility] [address] [place] [address], [address], 08/04/2021 14:32:05 08/05/19 22 08/04/2021 COMP. METAB OLIC PANEL total protein 6.4 g/dL 6.4-8. 3 normal Not Available [facility] [address] [place] [address], [address], 08/04/2021 14:32:05 08/05/19 22 08/04/2021 COMP. METAB OLIC PANEL albumin 3.9 g/dL 3.5-5. 2 normal Not Available [facility] [address] [place] [address], [address], 08/04/2021 14:32:05 08/05/19 22 08/04/2021 COMP. METAB OLIC PANEL globulin 2.5 g/dL_ (calc ) 1.5-4. 5 normal Not Available [facility] [address] [place] [address], [address], 08/04/2021 14:32:05 08/05/19 22 08/04/2021 COMP. METAB OLIC PANEL albumin/glob ulin ratio 1.6 (calc ) 1.1-2. 5 normal Not Available [facility] [address] [place] [address], [address], 08/04/2021 14:32:05 08/05/19 22 08/04/2021 COMP. METAB OLIC PANEL bilirubin, total 0.3 mg/dL 0.1-1. 2 normal Not Available [facility] [address] [place] [address], [address], 08/04/2021 14:32:05 08/05/19 22 08/04/2021 COMP. METAB OLIC PANEL alkaline phosphatase 69 U/L 30-121 normal Not Available [facility] [address] [place] [address], [address], 08/04/2021 14:32:05 08/05/19 22 08/04/2021 COMP. METAB OLIC PANEL AST 11 U/L 0-32 normal Not Available [facility] [address] [place] [address], [address], 08/04/2021 14:32:05 08/05/19 22 08/04/2021 COMP. METAB OLIC PANEL ALT 13 U/L 0-33 normal Not Available [facility] [address] [place] [address], [address], 08/04/2021 14:32:05 08/05/19 22 08/04/2021 COMP. METAB OLIC PANEL GFR 33 >= 60 abnormal Not Available [facility] [address] [place] [address], [address], 08/04/2021 14:32:05 08/05/19 22 08/04/2021 COMP. METAB [...] s/KDO QI/gf r_cal culat orPed Not Available [facility] [address] [place] [address], [address], 08/04/2021 14:32:05 08/05/19 22 08/04/2021 LDH LDH 187 U/L 135-23 3 normal Not Available [facility] [address] [place] [address], [address], 08/04/2021 14:51:42 02/18/20 22 02/17/2022 COMPL ETE BLOOD COUNT white blood cells 6.1 K/uL 3.8-10 .8 normal Not Available [facility] [address] [place] [address], [address], 02/17/2022 12:59:23 02/18/20 22 02/17/2022 COMPL ETE BLOOD COUNT red blood cells 4.03 M/uL 3.80-5 .20 normal Not Available [facility] [address] [place] [address], [address], 02/17/2022 12:59:23 02/18/20 22 02/17/2022 COMPL ETE BLOOD COUNT hemoglobin 12.1 g/dL 12.0-1 6.0 normal Not Available [facility] [address] [place] [address], [address], 02/17/2022 12:59:23 02/18/20 22 02/17/2022 COMPL ETE BLOOD COUNT hematocrit 35.9 % 35.0-4 7.0 normal Not Available [facility] [address] [place] [address], [address], 02/17/2022 12:59:23 02/18/20 22 02/17/2022 COMPL ETE BLOOD COUNT MCV 89 fL 80-100 normal Not Available [facility] [address] [place] [address], [address], 02/17/2022 12:59:23 02/18/20 22 02/17/2022 COMPL ETE BLOOD COUNT MCH 30 pg 26-35 normal Not Available [facility] [address] [place] [address], [address], 02/17/2022 12:59:23 02/18/20 22 02/17/2022 COMPL ETE BLOOD COUNT MCHC 34 g/dL 32-36 normal Not Available [facility] [address] [place] [address], [address], 02/17/2022 12:59:23 02/18/20 22 02/17/2022 COMPL ETE BLOOD COUNT RDW 14.6 % 11.0-1 5.0 normal Not Available [facility] [address] [place] [address], [address], 02/17/2022 12:59:23 02/18/20 22 02/17/2022 COMPL ETE BLOOD COUNT MPV 7.3 fL 6.2-10 .5 normal Not Available [facility] [address] [place] [address], [address], 02/17/2022 12:59:23 02/18/20 22 02/17/2022 COMPL ETE BLOOD COUNT platelet count 180 K/uL 130-40 0 normal Not Available [facility] [address] [place] [address], [address], 02/17/2022 12:59:23 02/18/20 22 02/17/2022 COMPL ETE BLOOD COUNT neutrophil,a bsolute 3.8 K/uL 1.6-8. 4 normal Not Available [facility] [address] [place] [address], [address], 02/17/2022 12:59:23 02/18/20 22 02/17/2022 COMPL ETE BLOOD COUNT lymphocyte,a bsolute 1.6 K/uL 0.4-5. 1 normal Not Available [facility] [address] [place] [address], [address], 02/17/2022 12:59:23 02/18/20 22 02/17/2022 COMPL ETE BLOOD COUNT monocyte,abs olute 0.5 K/uL 0.0-1. 2 normal Not Available [facility] [address] [place] [address], [address], 02/17/2022 12:59:23 02/18/20 22 02/17/2022 COMPL ETE BLOOD COUNT eosinophil,a bsolute 0.1 K/uL 0.0-0. 8 normal Not Available [facility] [address] [place] [address], [address], 02/17/2022 12:59:23 02/18/20 22 02/17/2022 COMPL ETE BLOOD COUNT basophil,abs olute 0.1 K/uL 0.0-0. 3 normal Not Available [facility] [address] [place] [address], [address], 02/17/2022 12:59:23 02/18/20 22 02/17/2022 COMPL ETE BLOOD COUNT % neutrophils 62.4 % 42.0-7 8.0 normal Not Available [facility] [address] [place] [address], [address], 02/17/2022 12:59:23 02/18/20 22 02/17/2022 COMPL ETE BLOOD COUNT % lymphocytes 25.6 % 11.0-4 7.0 normal Not Available [facility] [address] [place] [address], [address], 02/17/2022 12:59:23 02/18/20 22 02/17/2022 COMPL ETE BLOOD COUNT % monocytes 9.0 % 0.0-11 .0 normal Not Available [facility] [address] [place] [address], [address], 02/17/2022 12:59:23 02/18/20 22 02/17/2022 COMPL ETE BLOOD COUNT % eosinophils 2.0 % 0.0-7. 0 normal Not Available [facility] [address] [place] [address], [address], 02/17/2022 12:59:23 02/18/20 22 02/17/2022 COMPL ETE BLOOD COUNT % basophils 1.0 % 0.0-3. 0 normal Not Available [facility] [address] [place] [address], [address], 02/17/2022 12:59:23 02/18/20 22 02/17/2022 COMPL ETE BLOOD COUNT nucleated red cells 0.0 % 0.0-0. 9 normal Not Available [facility] [address] [place] [address], [address], 02/17/2022 12:59:23 02/18/20 22 02/17/2022 COMPL ETE BLOOD COUNT nucleated RBCs, absolute 0.00 K/uL not estab. normal Not Available [facility] [address] [place] [address], [address], 02/17/2022 12:59:23 02/18/20 22 02/17/2022 LDH LDH 163 U/L 135-23 3 normal Not Available [facility] [address] [place] [address], [address], 02/17/2022 13:26:21 02/18/20 22 02/17/2022 COMP. METAB OLIC PANEL glucose 98 mg/dL 74-100 normal Not Available [facility] [address] [place] [address], [address], 02/17/2022 13:26:53 02/18/20 22 02/17/2022 COMP. METAB OLIC PANEL blood urea nitrogen 21 mg/dL 6-20 high Not Available [facility] [address] [place] [address], [address], 02/17/2022 13:26:53 02/18/20 22 02/17/2022 COMP. METAB OLIC PANEL creatinine 1.34 mg/dL 0.50-0 .95 high Not Available [facility] [address] [place] [address], [address], 02/17/2022 13:26:53 02/18/20 22 02/17/2022 COMP. METAB OLIC PANEL BUN/creatini ne ratio 16 (calc ) 10-20 normal Not Available [facility] [address] [place] [address], [address], 02/17/2022 13:26:53 02/18/20 22 02/17/2022 COMP. METAB OLIC PANEL sodium 138 mmol/ L 136-14 5 normal Not Available [facility] [address] [place] [address], [address], 02/17/2022 13:26:53 02/18/20 22 02/17/2022 COMP. METAB OLIC PANEL potassium 4.0 mmol/ L 3.4-5. 0 normal Not Available [facility] [address] [place] [address], [address], 02/17/2022 13:26:53 02/18/20 22 02/17/2022 COMP. METAB OLIC PANEL chloride 103 mmol/ L 98-107 normal Not Available [facility] [address] [place] [address], [address], 02/17/2022 13:26:53 02/18/20 22 02/17/2022 COMP. METAB OLIC PANEL carbon dioxide 24 mmol/ L 22-31 normal Not Available [facility] [address] [place] [address], [address], 02/17/2022 13:26:53 02/18/20 22 02/17/2022 COMP. METAB OLIC PANEL anion gap 11 (calc ) 7-25 normal Not Available [facility] [address] [place] [address], [address], 02/17/2022 13:26:53 02/18/20 22 02/17/2022 COMP. METAB OLIC PANEL calcium 9.1 mg/dL 8.6-10 .2 normal Not Available [facility] [address] [place] [address], [address], 02/17/2022 13:26:53 02/18/20 22 02/17/2022 COMP. METAB OLIC PANEL total protein 6.9 g/dL 6.4-8. 3 normal Not Available [facility] [address] [place] [address], [address], 02/17/2022 13:26:53 02/18/20 22 02/17/2022 COMP. METAB OLIC PANEL albumin 4.2 g/dL 3.5-5. 2 normal Not Available [facility] [address] [place] [address], [address], 02/17/2022 13:26:53 02/18/20 22 02/17/2022 COMP. METAB OLIC PANEL globulin 2.7 g/dL_ (calc ) 1.5-4. 5 normal Not Available [facility] [address] [place] [address], [address], 02/17/2022 13:26:53 02/18/20 22 02/17/2022 COMP. METAB OLIC PANEL albumin/glob ulin ratio 1.6 (calc ) 1.1-2. 5 normal Not Available [facility] [address] [place] [address], [address], 02/17/2022 13:26:53 02/18/20 22 02/17/2022 COMP. METAB OLIC PANEL bilirubin, total 0.4 mg/dL 0.1-1. 2 normal Not Available [facility] [address] [place] [address], [address], 02/17/2022 13:26:53 02/18/20 22 02/17/2022 COMP. METAB OLIC PANEL alkaline phosphatase 79 U/L 30-121 normal Not Available [facility] [address] [place] [address], [address], 02/17/2022 13:26:53 02/18/20 22 02/17/2022 COMP. METAB OLIC PANEL AST 17 U/L 0-32 normal Not Available [facility] [address] [place] [address], [address], 02/17/2022 13:26:53 02/18/20 22 02/17/2022 COMP. METAB OLIC PANEL ALT 15 U/L 0-33 normal Not Available [facility] [address] [place] [address], [address], 02/17/2022 13:26:53 02/18/20 22 02/17/2022 COMP. METAB [...] s/KDO QI/gf r_cal culat orPed Not Available [facility] [address] [place] [address], [address], 02/17/2022 13:26:53 02/18/20 22 02/17/2022 URIC ACID uric acid 7.5 mg/dL 2.4-5. 7 high Refer ence range s are based on [facility] norms and do not neces leesa slater [...] mstan my. Arthr itis Care and Resea [facility] Vol 64 No 10, 2011 Michelle can Colle ge of Rheum atolo gy ----- ----- ----- ----- ----- ----- ----- ----- ----- ----- ----- ---- Not Available [facility] [address] [place] [address], [address], 02/17/2022 13:26:55 05/26/19 23 05/26/2022 COMPL ETE BLOOD COUNT white blood cells 5.6 K/uL 3.8-10 .8 normal Not Available [facility] [address] [place] [address], [address], 05/26/2022 13:25:38 05/26/19 23 05/26/2022 COMPL ETE BLOOD COUNT red blood cells 4.06 M/uL 3.80-5 .20 normal Not Available [facility] [address] [place] [address], [address], 05/26/2022 13:25:38 05/26/19 23 05/26/2022 COMPL ETE BLOOD COUNT hemoglobin 12.0 g/dL 12.0-1 6.0 normal Not Available [facility] [address] [place] [address], [address], 05/26/2022 13:25:38 05/26/19 23 05/26/2022 COMPL ETE BLOOD COUNT hematocrit 36.0 % 35.0-4 7.0 normal Not Available [facility] [address] [place] [address], [address], 05/26/2022 13:25:38 05/26/19 23 05/26/2022 COMPL ETE BLOOD COUNT MCV 89 fL 80-100 normal Not Available [facility] [address] [place] [address], [address], 05/26/2022 13:25:38 05/26/19 23 05/26/2022 COMPL ETE BLOOD COUNT MCH 30 pg 26-35 normal Not Available [facility] [address] [place] [address], [address], 05/26/2022 13:25:38 05/26/19 23 05/26/2022 COMPL ETE BLOOD COUNT MCHC 33 g/dL 32-36 normal Not Available [facility] [address] [place] [address], [address], 05/26/2022 13:25:38 05/26/19 23 05/26/2022 COMPL ETE BLOOD COUNT RDW 15.9 % 11.0-1 5.0 high Not Available [facility] [address] [place] [address], [address], 05/26/2022 13:25:38 05/26/19 23 05/26/2022 COMPL ETE BLOOD COUNT MPV 7.5 fL 6.2-10 .5 normal Not Available [facility] [address] [place] [address], [address], 05/26/2022 13:25:38 05/26/19 23 05/26/2022 COMPL ETE BLOOD COUNT platelet count 176 K/uL 130-40 0 normal Not Available [facility] [address] [place] [address], [address], 05/26/2022 13:25:38 05/26/19 23 05/26/2022 COMPL ETE BLOOD COUNT neutrophil,a bsolute 3.3 K/uL 1.6-8. 4 normal Not Available [facility] [address] [place] [address], [address], 05/26/2022 13:25:38 05/26/19 23 05/26/2022 COMPL ETE BLOOD COUNT lymphocyte,a bsolute 1.7 K/uL 0.4-5. 1 normal Not Available [facility] [address] [place] [address], [address], 05/26/2022 13:25:38 05/26/19 23 05/26/2022 COMPL ETE BLOOD COUNT monocyte,abs olute 0.5 K/uL 0.0-1. 2 normal Not Available [facility] [address] [place] [address], [address], 05/26/2022 13:25:38 05/26/19 23 05/26/2022 COMPL ETE BLOOD COUNT eosinophil,a bsolute 0.1 K/uL 0.0-0. 8 normal Not Available [facility] [address] [place] [address], [address], 05/26/2022 13:25:38 05/26/19 23 05/26/2022 COMPL ETE BLOOD COUNT basophil,abs olute 0.0 K/uL 0.0-0. 3 normal Not Available [facility] [address] [place] [address], [address], 05/26/2022 13:25:38 05/26/19 23 05/26/2022 COMPL ETE BLOOD COUNT % neutrophils 59.0 % 42.0-7 8.0 normal Not Available [facility] [address] [place] [address], [address], 05/26/2022 13:25:38 05/26/19 23 05/26/2022 COMPL ETE BLOOD COUNT % lymphocytes 30.6 % 11.0-4 7.0 normal Not Available [facility] [address] [place] [address], [id number], 05/26/2022 13:25:38 05/26/19 23 05/26/2022 COMPL ETE BLOOD COUNT % monocytes 8.1 % 0.0-11 .0 normal Not Available [facility] [address] [place] [address], [id number], 05/26/2022 13:25:38 05/26/19 23 05/26/2022 COMPL ETE BLOOD COUNT % eosinophils 1.7 % 0.0-7. 0 normal Not Available [facility] [address] [place] [address], [phone], 05/26/2022 13:25:38 05/26/19 23 05/26/2022 COMPL ETE BLOOD COUNT % basophils 0.6 % 0.0-3. 0 normal Not Available [facility] [address] [place] [address], [address], 05/26/2022 13:25:38 05/26/19 23 05/26/2022 COMPL ETE BLOOD COUNT nucleated red cells 0.0 % 0.0-0. 9 normal Not Available [facility] [address] [place] [address], [address], 05/26/2022 13:25:38 05/26/19 23 05/26/2022 COMPL ETE BLOOD COUNT nucleated RBCs, absolute 0.00 K/uL not estab. normal Not Available [facility] [address] [place] [address], [address], 05/26/2022 13:25:38 05/26/19 23 05/26/2022 LDH LDH 155 U/L 135-23 3 normal Not Available [facility] [address] [place] [address], [phone], 05/26/2022 13:51:16 05/26/19 23 05/26/2022 COMP. METAB OLIC PANEL glucose 116 mg/dL 74-100 high Not Available [facility] [address] [place] [address], [address], 05/26/2022 13:54:17 05/26/19 23 05/26/2022 COMP. METAB OLIC PANEL blood urea nitrogen 22 mg/dL 6-20 high Not Available [facility] [address] [place] [address], [address], 05/26/2022 13:54:17 05/26/19 23 05/26/2022 COMP. METAB OLIC PANEL creatinine 1.15 mg/dL 0.50-0 .95 high Not Available [facility] [address] [place] [address], [address], 05/26/2022 13:54:17 05/26/19 23 05/26/2022 COMP. METAB OLIC PANEL BUN/creatini ne ratio 19 (calc ) 10-20 normal Not Available [facility] [address] [place] [address], [address], 05/26/2022 13:54:17 05/26/19 23 05/26/2022 COMP. METAB OLIC PANEL sodium 140 mmol/ L 136-14 5 normal Not Available [facility] [address] [place] [address], [address], 05/26/2022 13:54:17 05/26/19 23 05/26/2022 COMP. METAB OLIC PANEL potassium 4.4 mmol/ L 3.4-5. 0 normal Not Available [facility] [address] [place] [address], [address], 05/26/2022 13:54:17 05/26/19 23 05/26/2022 COMP. METAB OLIC PANEL chloride 104 mmol/ L 98-107 normal Not Available [facility] [address] [place] [address], [address], 05/26/2022 13:54:17 05/26/19 23 05/26/2022 COMP. METAB OLIC PANEL carbon dioxide 25 mmol/ L 22-31 normal Not Available [facility] [address] [place] [address], [phone], 05/26/2022 13:54:17 05/26/19 23 05/26/2022 COMP. METAB OLIC PANEL anion gap 11 (calc ) 7-25 normal Not Available [facility] [address] [place] [address], [address], 05/26/2022 13:54:17 05/26/19 23 05/26/2022 COMP. METAB OLIC PANEL calcium 9.5 mg/dL 8.6-10 .2 normal Not Available [facility] [address] [place] [address], [address], 05/26/2022 13:54:17 05/26/19 23 05/26/2022 COMP. METAB OLIC PANEL total protein 7.0 g/dL 6.4-8. 3 normal Not Available [facility] [address] [place] [address], [address], 05/26/2022 13:54:17 05/26/19 23 05/26/2022 COMP. METAB OLIC PANEL albumin 4.3 g/dL 3.5-5. 2 normal Not Available [facility] [address] [place] [address], [address], 05/26/2022 13:54:17 05/26/19 23 05/26/2022 COMP. METAB OLIC PANEL globulin 2.7 g/dL_ (calc ) 1.5-4. 5 normal Not Available [facility] [address] [place] [address], [address], 05/26/2022 13:54:17 05/26/19 23 05/26/2022 COMP. METAB OLIC PANEL albumin/glob ulin ratio 1.6 (calc ) 1.1-2. 5 normal Not Available [facility] [address] [place] [address] [place], [address], 05/26/2022 13:54:17 05/26/19 23 05/26/2022 COMP. METAB OLIC PANEL bilirubin, total 0.4 mg/dL 0.1-1. 2 normal Not Available [facility] [address] [place] [address], [address], 05/26/2022 13:54:17 05/26/19 23 05/26/2022 COMP. METAB OLIC PANEL alkaline phosphatase 71 U/L 30-121 normal Not Available [facility] [address] [place] [address], [address], 05/26/2022 13:54:17 05/26/19 23 05/26/2022 COMP. METAB OLIC PANEL AST 18 U/L 0-32 normal Not Available [facility] [address] [place] [address], [address], 05/26/2022 13:54:17 05/26/19 23 05/26/2022 COMP. METAB OLIC PANEL ALT 15 U/L 0-33 normal Not Available [facility] [address] [place] [address], [address], 05/26/2022 13:54:17 05/26/19 23 05/26/2022 COMP. METAB OLIC PANEL GFR 49 >= 60 abnormal NOT E New calcu latio n for GFR (CKD- EPI 2020) is formu lated witho ut race adjus tment facto rs at the recom menda tion of the [employer] and Ameri can Socie ty of Nephr ology . This calcu latio n has not been valid ated in pregn ant women . For pedia dina patie nts refer to https ://heike joseph.o shanon/pr lia adorno s/KDO QI/gf r_cal culat orPed Not Available [facility] [address] [place] [address], [address], 05/26/2022 13:54:17 05/26/19 23 05/26/2022 URIC ACID uric acid 8.9 mg/dL 2.4-5. 7 high Refer ence range s are based on [facility] norms and do not neces leesa slater [...] mstan my. Arthr itis Care and Resea [facility] Vol 64 No 10, 2011 Michelle can Colle ge of Rheum atolo gy ----- ----- ----- ----- ----- ----- ----- ----- ----- ----- ----- ---- Not Available [facility] [address] [place] [address], [address], 05/26/2022 13:54:18 09/02/19 23 09/01/2022 COMPL ETE BLOOD COUNT white blood cells 6.8 10*3/ uL 3.8-10 .8 normal Not Available [facility] [address] [place] [address], [address], 09/01/2022 12:52:29 09/02/19 23 09/01/2022 COMPL ETE BLOOD COUNT red blood cells 4.15 10*6/ uL 3.80-5 .20 normal Not Available [facility] [address] [place] [address], [address], 09/01/2022 12:52:29 09/02/19 23 09/01/2022 COMPL ETE BLOOD COUNT hemoglobin 12.5 g/dL 12.0-1 6.0 normal Not Available [facility] [address] [place] [address], [address], 09/01/2022 12:52:29 09/02/19 23 09/01/2022 COMPL ETE BLOOD COUNT hematocrit 37.0 % 35.0-4 7.0 normal Not Available [facility] [address] [place] [address], [address], 09/01/2022 12:52:29 09/02/19 23 09/01/2022 COMPL ETE BLOOD COUNT MCV 89 fL 80-100 normal Not Available [facility] [address] [place] [address], [address], 09/01/2022 12:52:29 09/02/19 23 09/01/2022 COMPL ETE BLOOD COUNT MCH 30 pg 26-35 normal Not Available [facility] [address] [place] [address], [address], 09/01/2022 12:52:29 09/02/19 23 09/01/2022 COMPL ETE BLOOD COUNT MCHC 34 g/dL 32-36 normal Not Available [facility] [address] [place] [address], [address], 09/01/2022 12:52:29 09/02/1909/01/2022 COMPL ETE BLOOD COUNT RDW 14.1 % 11.0-1 5.0 normal Not Available [facility] [address] [place] [address], [address], 09/01/2022 12:52:29 09/02/19 23 09/01/2022 COMPL ETE BLOOD COUNT MPV 7.5 fL 6.2-10 .5 normal Not Available [facility] [address] [place] [address], [address], 09/01/2022 12:52:29 09/02/1909/01/2022 COMPL ETE BLOOD COUNT platelet count 194 10*3/ uL 130-40 0 normal Not Available [facility] [address] [place] [address], [address], 09/01/2022 12:52:29 09/02/19 23 09/01/2022 COMPL ETE BLOOD COUNT neutrophil,a bsolute 4.0 10*3/ uL 1.6-8. 4 normal Not Available [facility] [address] [place] [address], [address], 09/01/2022 12:52:29 09/02/19 23 09/01/2022 COMPL ETE BLOOD COUNT lymphocyte,a bsolute 2.0 10*3/ uL 0.4-5. 1 normal Not Available [facility] [address] [place] [address], [address], 09/01/2022 12:52:29 09/02/1909/01/2022 COMPL ETE BLOOD COUNT monocyte,abs olute 0.5 10*3/ uL 0.0-1. 2 normal Not Available [facility] [address] [place] [address], [address], 09/01/2022 12:52:29 09/02/19 23 09/01/2022 COMPL ETE BLOOD COUNT eosinophil,a bsolute 0.2 10*3/ uL 0.0-0. 8 normal Not Available [facility] [address] [place] [address], [address], 09/01/2022 12:52:29 09/02/1909/01/2022 COMPL ETE BLOOD COUNT basophil,abs olute 0.1 10*3/ uL 0.0-0. 3 normal Not Available [facility] [address] [place] [address], [address], 09/01/2022 12:52:29 09/02/1909/01/2022 COMPL ETE BLOOD COUNT % neutrophils 59.2 % 42.0-7 8.0 normal Not Available [facility] [address] [place] [address], [address], 09/01/2022 12:52:29 09/02/1909/01/2022 COMPL ETE BLOOD COUNT % lymphocytes 29.7 % 11.0-4 7.0 normal Not Available [facility] [address] [place] [address], [address], 09/01/2022 12:52:29 09/02/19 23 09/01/2022 COMPL ETE BLOOD COUNT % monocytes 7.7 % 0.0-11 .0 normal Not Available [facility] [address] [place] [address], [address], 09/01/2022 12:52:29 09/02/19 23 09/01/2022 COMPL ETE BLOOD COUNT % eosinophils 2.6 % 0.0-7. 0 normal Not Available [facility] [address] [place] [address], [address], 09/01/2022 12:52:29 09/02/19 23 09/01/2022 COMPL ETE BLOOD COUNT % basophils 0.8 % 0.0-3. 0 normal Not Available [facility] [address] [place] [address], [address], 09/01/2022 12:52:29 09/02/1909/01/2022 COMPL ETE BLOOD COUNT nucleated red cells 0.0 % 0.0-0. 9 normal Not Available [facility] [address] [place] [address], [address], 09/01/2022 12:52:29 09/02/1909/01/2022 COMPL ETE BLOOD COUNT nucleated RBCs, absolute 0.00 10*3/ uL not estab. normal Not Available [facility] [address] [place] [address], [address], 09/01/2022 12:52:29 09/02/1909/01/2022 COMP. METAB OLIC PANEL glucose 121 mg/dL 74-100 high Not Available [facility] [address] [place] [address], [address], 09/01/2022 13:03:18 09/02/19 23 09/01/2022 COMP. METAB OLIC PANEL blood urea nitrogen 18 mg/dL 6-20 normal Not Available [facility] [address] [place] [address], [address], 09/01/2022 13:03:18 09/02/19 23 09/01/2022 COMP. METAB OLIC PANEL creatinine 1.32 mg/dL 0.50-0 .95 high Not Available [facility] [address] [place] [address], [address], 09/01/2022 13:03:18 09/02/19 23 09/01/2022 COMP. METAB OLIC PANEL BUN/creatini ne ratio 14 (calc ) 10-20 normal Not Available [facility] [address] [place] [address], [address], 09/01/2022 13:03:18 09/02/19 23 09/01/2022 COMP. METAB OLIC PANEL sodium 137 mmol/ L 136-14 5 normal Not Available [facility] [address] [place] [address], [address], 09/01/2022 13:03:18 09/02/19 23 09/01/2022 COMP. METAB OLIC PANEL potassium 4.1 mmol/ L 3.4-5. 0 normal Not Available [facility] [address] [place] [address], [address], 09/01/2022 13:03:18 09/02/19 23 09/01/2022 COMP. METAB OLIC PANEL chloride 99 mmol/ L 98-107 normal Not Available [facility] [address] [place] [address], [address], 09/01/2022 13:03:18 09/02/19 23 09/01/2022 COMP. METAB OLIC PANEL carbon dioxide 25 mmol/ L 22-31 normal Not Available [facility] [address] [place] [address], [address], 09/01/2022 13:03:18 09/02/19 23 09/01/2022 COMP. METAB OLIC PANEL anion gap 13 (calc ) 7-25 normal Not Available [facility] [address] [place] [address], [address], 09/01/2022 13:03:18 09/02/19 23 09/01/2022 COMP. METAB OLIC PANEL calcium 9.5 mg/dL 8.6-10 .2 normal Not Available [facility] [address] [place] [address], [address], 09/01/2022 13:03:18 09/02/19 23 09/01/2022 COMP. METAB OLIC PANEL total protein 7.3 g/dL 6.4-8. 3 normal Not Available [facility] [address] [place] [address], [address], 09/01/2022 13:03:18 09/02/19 23 09/01/2022 COMP. METAB OLIC PANEL albumin 4.3 g/dL 3.5-5. 2 normal Not Available [facility] [address] [place] [address], [address], 09/01/2022 13:03:18 09/02/19 23 09/01/2022 COMP. METAB OLIC PANEL globulin 3.0 1.5-4. 5 normal Not Available [facility] [address] [place] [address], [address], 09/01/2022 13:03:18 09/02/19 23 09/01/2022 COMP. METAB OLIC PANEL albumin/glob ulin ratio 1.4 (calc ) 1.1-2. 5 normal Not Available [facility] [address] [place] [address], [address], 09/01/2022 13:03:18 09/02/19 23 09/01/2022 COMP. METAB OLIC PANEL bilirubin, total 0.8 mg/dL 0.1-1. 2 normal Not Available [facility] [address] [place] [address], [address], 09/01/2022 13:03:18 09/02/19 23 09/01/2022 COMP. METAB OLIC PANEL alkaline phosphatase 67 U/L 30-121 normal Not Available [facility] [address] [place], [address], 09/01/2022 13:03:18 09/02/19 23 09/01/2022 COMP. METAB OLIC PANEL AST 15 U/L 0-32 normal Not Available [facility] [address] [place], [address], 09/01/2022 13:03:18 09/02/19 23 09/01/2022 COMP. METAB OLIC PANEL ALT 8 U/L 0-33 normal Not Available [facility] [address] [place], [address], 09/01/2022 13:03:18 09/02/19 23 09/01/2022 COMP. METAB [...] s/KDO QI/gf r_cal culat orPed Not Available [facility] [address] [place], [address], 09/01/2022 13:03:18 09/02/19 23 09/01/2022 URIC ACID [...] mstan my. Arthr itis Care and Resea [facility] Vol 64 No 10, 2011 Michelle puentes Colle ge of Rheum atolo gy ----- ----- ----- ----- ----- ----- ----- ----- ----- ----- ----- ---- Not Available [facility] [address] [place] [address], [address], 09/01/2022 13:03:19 09/02/19 23 09/01/2022 LDH LDH 172 U/L 135-23 3 normal Not Available [facility] [address] [place] [address], [address], 09/01/2022 13:20:20 01/13/20 23 01/12/2023 COMP. METAB OLIC PANEL glucose 109 mg/dL 74-100 high Not Available [facility] [address] [place] [address], [address], 01/12/2023 15:02:07 01/13/20 23 01/12/2023 COMP. METAB OLIC PANEL blood urea nitrogen 19 mg/dL 6-20 normal Not Available [facility] [address] [place] [address], [address], 01/12/2023 15:02:07 01/13/20 23 01/12/2023 COMP. METAB OLIC PANEL creatinine 1.35 mg/dL 0.50-0 .95 high Not Available [facility] [address] [place] [address], [address], 01/12/2023 15:02:07 01/13/20 23 01/12/2023 COMP. METAB OLIC PANEL BUN/creatini ne ratio 14 (calc ) 10-20 normal Not Available [facility] [address] [place] [address], [address], 01/12/2023 15:02:07 01/13/20 23 01/12/2023 COMP. METAB OLIC PANEL sodium 139 mmol/ L 136-14 5 normal Not Available [facility] [address] [place] [address], [address], 01/12/2023 15:02:07 01/13/20 23 01/12/2023 COMP. METAB OLIC PANEL potassium 4.5 mmol/ L 3.4-5. 0 normal Not Available [facility] [address] [place] [address], [address], 01/12/2023 15:02:07 01/13/20 23 01/12/2023 COMP. METAB OLIC PANEL chloride 104 mmol/ L 98-107 normal Not Available [facility] [address] [place] [address], [address], 01/12/2023 15:02:07 01/13/20 23 01/12/2023 COMP. METAB OLIC PANEL carbon dioxide 24 mmol/ L 22-31 normal Not Available [facility] [address] [place] [address], [address], 01/12/2023 15:02:07 01/13/20 23 01/12/2023 COMP. METAB OLIC PANEL anion gap 11 (calc ) 7-25 normal Not Available [facility] [address] [place] [address], [address], 01/12/2023 15:02:07 01/13/20 23 01/12/2023 COMP. METAB OLIC PANEL calcium 9.1 mg/dL 8.6-10 .2 normal Not Available [facility] [address] [place] [address], [address], 01/12/2023 15:02:07 01/13/20 23 01/12/2023 COMP. METAB OLIC PANEL total protein 6.8 g/dL 6.4-8. 3 normal Not Available [facility] [address] [place] [address], [address], 01/12/2023 15:02:07 01/13/20 23 01/12/2023 COMP. METAB OLIC PANEL albumin 4.2 g/dL 3.5-5. 2 normal Not Available [facility] [address] [place] [address], [address], 01/12/2023 15:02:07 01/13/20 23 01/12/2023 COMP. METAB OLIC PANEL globulin 2.6 1.5-4. 5 normal Not Available [facility] [address] [place] [address], [address], 01/12/2023 15:02:07 01/13/20 23 01/12/2023 COMP. METAB OLIC PANEL albumin/glob ulin ratio 1.6 (calc ) 1.1-2. 5 normal Not Available [facility] [address] [place] [address], [address], 01/12/2023 15:02:07 01/13/20 23 01/12/2023 COMP. METAB OLIC PANEL bilirubin, total 0.6 mg/dL 0.1-1. 2 normal Not Available [facility] [address] [place] [address], [address], 01/12/2023 15:02:07 01/13/20 23 01/12/2023 COMP. METAB OLIC PANEL alkaline phosphatase 63 U/L 30-121 normal Not Available [facility] [address] [place] [address], [address], 01/12/2023 15:02:07 01/13/20 23 01/12/2023 COMP. METAB OLIC PANEL AST 13 U/L 0-32 normal Not Available [facility] [address] [place] [address], [address], 01/12/2023 15:02:07 01/13/20 23 01/12/2023 COMP. METAB OLIC PANEL ALT 10 U/L 0-33 normal Not Available [facility] [address] [place], [address], 01/12/2023 15:02:07 01/13/20 23 01/12/2023 COMP. METAB [...] s/YARIO QI/gf r_cal culat orPed Not Available [facility] [address] [place], [address], 01/12/2023 15:02:07 01/13/20 23 01/12/2023 URIC ACID [...] mstan my. Arthr itis Care and Resea [facility] Vol 64 No 10, 2011 Michelle Agustin ge of Rheum atolo gy ----- ----- ----- ----- ----- ----- ----- ----- ----- ----- ----- ---- Not Available [facility] [address] [place] [address], [address], 01/12/2023 15:02:09 01/13/20 23 01/12/2023 LDH LDH 167 U/L 135-23 3 normal Not Available [facility] [address] [place] [address], [address], 01/12/2023 15:02:55 01/13/20 23 01/12/2023 COMPL ETE BLOOD COUNT white blood cells 7.6 10*3/ uL 3.8-10 .8 normal RESUL TS RECHE CKED Not Available [facility] [address] [place] [address], [address], 01/12/2023 15:09:32 01/13/20 23 01/12/2023 COMPL ETE BLOOD COUNT red blood cells 4.03 10*6/ uL 3.80-5 .20 normal Not Available [facility] [address] [place] [address], [address], 01/12/2023 15:09:32 01/13/20 23 01/12/2023 COMPL ETE BLOOD COUNT hemoglobin 12.0 g/dL 12.0-1 6.0 normal Not Available [facility] [address] [place] [address], [address], 01/12/2023 15:09:32 01/13/20 23 01/12/2023 COMPL ETE BLOOD COUNT hematocrit 36.2 % 35.0-4 7.0 normal Not Available [facility] [address] [place] [address], [address], 01/12/2023 15:09:32 01/13/20 23 01/12/2023 COMPL ETE BLOOD COUNT MCV 90 fL 80-100 normal Not Available [facility] [address] [place] [address], [address], 01/12/2023 15:09:32 01/13/20 23 01/12/2023 COMPL ETE BLOOD COUNT MCH 30 pg 26-35 normal Not Available [facility] [address] [place] [address], [address], 01/12/2023 15:09:32 01/13/20 23 01/12/2023 COMPL ETE BLOOD COUNT MCHC 33 g/dL 32-36 normal Not Available [facility] [address] [place] [address], [address], 01/12/2023 15:09:32 01/13/20 23 01/12/2023 COMPL ETE BLOOD COUNT RDW 14.8 % 11.0-1 5.0 normal Not Available [facility] [address] [place] [address], [address], 01/12/2023 15:09:32 01/13/20 23 01/12/2023 COMPL ETE BLOOD COUNT MPV 7.7 fL 6.2-10 .5 normal Not Available [facility] [address] [place] [address], [address], 01/12/2023 15:09:32 01/13/20 23 01/12/2023 COMPL ETE BLOOD COUNT platelet count 151 10*3/ uL 130-40 0 normal Not Available [facility] [address] [place] [address], [address], 01/12/2023 15:09:32 01/13/20 23 01/12/2023 COMPL ETE BLOOD COUNT neutrophil,a bsolute 4.0 10*3/ uL 1.6-8. 4 normal Not Available [facility] [address] [place] [address], [address], 01/12/2023 15:09:32 01/13/20 23 01/12/2023 COMPL ETE BLOOD COUNT lymphocyte,a bsolute 3.3 10*3/ uL 0.4-5. 1 normal Not Available [facility] [address] [place] [address], [address], 01/12/2023 15:09:32 01/13/20 23 01/12/2023 COMPL ETE BLOOD COUNT monocyte,abs olute 0.2 10*3/ uL 0.0-1. 2 normal Not Available [facility] [address] [place] [address], [address], 01/12/2023 15:09:32 01/13/20 23 01/12/2023 COMPL ETE BLOOD COUNT eosinophil,a bsolute 0.1 10*3/ uL 0.0-0. 8 normal Not Available [facility] [address] [place] [address], [address], 01/12/2023 15:09:32 01/13/20 23 01/12/2023 COMPL ETE BLOOD COUNT basophil,abs olute 0.0 10*3/ uL 0.0-0. 3 normal Not Available [facility] [address] [place] [address], [address], 01/12/2023 15:09:32 01/13/20 23 01/12/2023 COMPL ETE BLOOD COUNT % neutrophils 52.0 % 42.0-7 8.0 normal Not Available [facility] [address] [place] [address], [address], 01/12/2023 15:09:32 01/13/20 23 01/12/2023 COMPL ETE BLOOD COUNT % lymphocytes 44.0 % 11.0-4 7.0 normal Not Available [facility] [address] [place] [address], [address], 01/12/2023 15:09:32 01/13/20 23 01/12/2023 COMPL ETE BLOOD COUNT % monocytes 3.0 % 0.0-11 .0 normal Not Available [facility] [address] [place] [address], [address], 01/12/2023 15:09:32 01/13/20 23 01/12/2023 COMPL ETE BLOOD COUNT % eosinophils 1.0 % 0.0-7. 0 normal Not Available [facility] [address] [place] [address], [phone], 01/12/2023 15:09:32 01/13/20 23 01/12/2023 COMPL ETE BLOOD COUNT % basophils 0.0 % 0.0-3. 0 normal Not Available [facility] [address] [place] [address], [address], 01/12/2023 15:09:32 01/13/20 23 01/12/2023 COMPL ETE BLOOD COUNT nucleated red cells 0.0 % 0.0-0. 9 normal Not Available [facility] [address] [place] [address], [address], 01/12/2023 15:09:32 01/13/20 23 01/12/2023 COMPL ETE BLOOD COUNT nucleated RBCs, absolute 0.00 10*3/ uL not estab. normal Not Available [facility] [address] [place] [address], [address], 01/12/2023 15:09:32 01/13/20 23 01/12/2023 MANUA L DIFFE RENTI AL % band neutrophils 0.0 % 0.0-7. 0 normal Not Available [facility] [address] [place] [address], [phone], 01/12/2023 15:09:35 01/13/20 23 01/12/2023 MANUA L DIFFE RENTI AL % atypical lymphocytes 0 % 0-1 normal Not Available [facility] [address] [place] [address], [address], 01/12/2023 15:09:35 01/13/20 23 01/12/2023 MANUA L DIFFE RENTI AL % metamyelocyt es 0 % 0-1 normal Not Available [facility] [address] [place] [address], [address], 01/12/2023 15:09:35 01/13/20 23 01/12/2023 MANUA L DIFFE RENTI AL % myelocytes 0 % 0-1 normal Not Available [facility] [address] [place] [address], [address], 01/12/2023 15:09:35 01/13/20 23 01/12/2023 MANUA L DIFFE RENTI AL % promyelocyte s 0 % 0 normal Not Available [facility] [address] [place] [address], [address], 01/12/2023 15:09:35 01/13/20 23 01/12/2023 MANUA L DIFFE RENTI AL % blast 0 % 0 normal Not Available [facility] [address] [place] [address], [address], 01/12/2023 15:09:35 01/13/20 23 01/12/2023 MANUA L DIFFE RENTI AL nucleated red cells 0 /100{ WBC} 0-1 normal Not Available [facility] [address] [place] [address], [address], 01/12/2023 15:09:35 01/13/20 23 01/12/2023 MANUA L DIFFE RENTI AL smudge cells 0 /100{ WBC} 0 normal Not Available [facility] [address] [place] [address], [address], 01/12/2023 15:09:35 01/13/20 23 01/12/2023 MANUA L DIFFE RENTI AL platelet morphology NORMAL normal Not Available [facility] [address] [place] [address], [address], 01/12/2023 15:09:35 01/13/20 23 01/12/2023 MANUA L DIFFE RENTI AL hypochromasi a SLIGHT abnormal Not Available [facility] [address] [place] [address], [address], 01/12/2023 15:09:35 01/13/20 23 01/12/2023 MANUA L DIFFE RENTI AL ovalocytes SLIGHT abnormal Not Available [facility] [address] [place] [address], [address], 01/12/2023 15:09:35 02/10/20 23 02/09/2023 COMP. METAB OLIC PANEL glucose 108 mg/dL 74-100 high Not Available [facility] [address] [place] [address], [address], 02/09/2023 14:33:27 02/10/20 23 02/09/2023 COMP. METAB OLIC PANEL blood urea nitrogen 18 mg/dL 6-20 normal Not Available [facility] [address] [place] [address], [phone], 02/09/2023 14:33:27 02/10/20 23 02/09/2023 COMP. METAB OLIC PANEL creatinine 1.31 mg/dL 0.50-0 .95 high Not Available [facility] [address] [place] [address], [address], 02/09/2023 14:33:27 02/10/20 23 02/09/2023 COMP. METAB OLIC PANEL BUN/creatini ne ratio 14 (calc ) 10-20 normal Not Available [facility] [address] [place] [address], [address], 02/09/2023 14:33:27 02/10/20 23 02/09/2023 COMP. METAB OLIC PANEL sodium 136 mmol/ L 136-14 5 normal Not Available [facility] [address] [place] [address], [address], 02/09/2023 14:33:27 02/10/20 23 02/09/2023 COMP. METAB OLIC PANEL potassium 4.1 mmol/ L 3.4-5. 0 normal Not Available [facility] [address] [place] [address], [address], 02/09/2023 14:33:27 02/10/20 23 02/09/2023 COMP. METAB OLIC PANEL chloride 101 mmol/ L 98-107 normal Not Available [facility] [address] [place] [address], [address], 02/09/2023 14:33:27 02/10/20 23 02/09/2023 COMP. METAB OLIC PANEL carbon dioxide 25 mmol/ L 22-31 normal Not Available [facility] [address] [place] [address], [address], 02/09/2023 14:33:27 02/10/20 23 02/09/2023 COMP. METAB OLIC PANEL anion gap 10 (calc ) 7-25 normal Not Available [facility] [address] [place] [address], [address], 02/09/2023 14:33:27 02/10/20 23 02/09/2023 COMP. METAB OLIC PANEL calcium 9.1 mg/dL 8.6-10 .2 normal Not Available [facility] [address] [place] [address], [address], 02/09/2023 14:33:27 02/10/20 23 02/09/2023 COMP. METAB OLIC PANEL total protein 6.8 g/dL 6.4-8. 3 normal Not Available [facility] [address] [place] [address], [address], 02/09/2023 14:33:27 02/10/20 23 02/09/2023 COMP. METAB OLIC PANEL albumin 4.2 g/dL 3.5-5. 2 normal Not Available [facility] [address] [place] [address], [address], 02/09/2023 14:33:27 02/10/20 23 02/09/2023 COMP. METAB OLIC PANEL globulin 2.6 1.5-4. 5 normal Not Available [facility] [address] [place] [address], [address], 02/09/2023 14:33:27 02/10/20 23 02/09/2023 COMP. METAB OLIC PANEL albumin/glob ulin ratio 1.6 (calc ) 1.1-2. 5 normal Not Available [facility] [address] [place] [address], [address], 02/09/2023 14:33:27 02/10/20 23 02/09/2023 COMP. METAB OLIC PANEL bilirubin, total 0.7 mg/dL 0.1-1. 2 normal Not Available [facility] [address] [place], [address], 02/09/2023 14:33:27 02/10/20 23 02/09/2023 COMP. METAB OLIC PANEL alkaline phosphatase 63 U/L 30-121 normal Not Available [facility] [address] [place], [address], 02/09/2023 14:33:27 02/10/20 23 02/09/2023 COMP. METAB OLIC PANEL AST 14 U/L 0-32 normal Not Available [facility] [address] [place] [address], [address], 02/09/2023 14:33:27 02/10/20 23 02/09/2023 COMP. METAB OLIC PANEL ALT 9 U/L 0-33 normal Not Available [facility] [address] [place] [address], [address], 02/09/2023 14:33:27 02/10/20 23 02/09/2023 COMP. METAB OLIC PANEL GFR 41 >= 60 abnormal NOT E New calcu latio n for GFR (CKD- EPI 2020) is formu lated witho ut race adjus tment facto rs at the [facility] menda tion of the [facility] ty of Nephr ology . This calcu latio n has not been valid ated in pregn ant women . For pedia tric patie nts refer to https :[email or web address] [email or web address] claudio/pr lia adorno s/KDO QI/gf r_cal culat orPed Not Available [facility] [address] [place], [address], 02/09/2023 14:33:27 02/10/20 23 02/09/2023 URIC ACID uric acid 7.9 mg/dL 2.4-5. 7 high Refer ence range s are based on [facility] norms and do not neces leesa slater [...] mstan my. Arthr itis Care and Resea [facility] Vol 64 No 10, 2011 Michelle puentes Colle ge of Rheum atolo gy ----- ----- ----- ----- ----- ----- ----- ----- ----- ----- ----- ---- Not Available [facility] [address] [place], [address], 02/09/2023 14:33:29 02/10/20 23 02/09/2023 LDH LDH 165 U/L 135-23 3 normal Not Available [facility] [address] [place], [address], 02/09/2023 14:47:40 02/10/20 23 02/09/2023 COMPL ETE BLOOD COUNT white blood cells 8.3 10*3/ uL 3.8-10 .8 normal Not Available [facility] [address] [place], [address], 02/09/2023 14:51:28 02/10/20 23 02/09/2023 COMPL ETE BLOOD COUNT red blood cells 4.15 10*6/ uL 3.80-5 .20 normal Not Available [facility] [address] [place] [address], [address], 02/09/2023 14:51:28 02/10/20 23 02/09/2023 COMPL ETE BLOOD COUNT hemoglobin 12.3 g/dL 12.0-1 6.0 normal Not Available [facility] [address] [place] [address], [address], 02/09/2023 14:51:28 02/10/20 23 02/09/2023 COMPL ETE BLOOD COUNT hematocrit 36.5 % 35.0-4 7.0 normal Not Available [facility] [address] [place] [address], [address], 02/09/2023 14:51:28 02/10/20 23 02/09/2023 COMPL ETE BLOOD COUNT MCV 88 fL 80-100 normal Not Available [facility] [address] [place] [address], [address], 02/09/2023 14:51:28 02/10/20 23 02/09/2023 COMPL ETE BLOOD COUNT MCH 30 pg 26-35 normal Not Available [facility] [address] [place] [address], [address], 02/09/2023 14:51:28 02/10/20 23 02/09/2023 COMPL ETE BLOOD COUNT MCHC 34 g/dL 32-36 normal Not Available [facility] [address] [place] [address], [address], 02/09/2023 14:51:28 02/10/20 23 02/09/2023 COMPL ETE BLOOD COUNT RDW 14.5 % 11.0-1 5.0 normal Not Available [facility] [address] [place] [address], [address], 02/09/2023 14:51:28 02/10/20 23 02/09/2023 COMPL ETE BLOOD COUNT MPV 7.6 fL 6.2-10 .5 normal Not Available [facility] [address] [place] [address], [address], 02/09/2023 14:51:28 02/10/20 23 02/09/2023 COMPL ETE BLOOD COUNT platelet count 184 10*3/ uL 150-40 0 normal Not Available [facility] [address] [place] [address], [address], 02/09/2023 14:51:28 02/10/20 23 02/09/2023 COMPL ETE BLOOD COUNT neutrophil,a bsolute 4.2 10*3/ uL 1.6-8. 4 normal Not Available [facility] [address] [place] [address], [address], 02/09/2023 14:51:28 02/10/20 23 02/09/2023 COMPL ETE BLOOD COUNT lymphocyte,a bsolute 2.9 10*3/ uL 0.4-5. 1 normal Not Available [facility] [address] [place] [address], [address], 02/09/2023 14:51:28 02/10/20 23 02/09/2023 COMPL ETE BLOOD COUNT monocyte,abs olute 0.7 10*3/ uL 0.0-1. 2 normal Not Available [facility] [address] [place] [address], [address], 02/09/2023 14:51:28 02/10/20 23 02/09/2023 COMPL ETE BLOOD COUNT eosinophil,a bsolute 0.2 10*3/ uL 0.0-0. 8 normal Not Available [facility] [address] [place] [address], [address], 02/09/2023 14:51:28 02/10/20 23 02/09/2023 COMPL ETE BLOOD COUNT basophil,abs olute 0.0 10*3/ uL 0.0-0. 3 normal Smear revie wed to confi rm cell morph ology . Not Available [facility] [address] [place] [address], [address], 02/09/2023 14:51:28 02/10/20 23 02/09/2023 COMPL ETE BLOOD COUNT % neutrophils 50.0 % 42.0-7 8.0 normal Not Available [facility] [address] [place] [address], [address], 02/09/2023 14:51:28 02/10/20 23 02/09/2023 COMPL ETE BLOOD COUNT % lymphocytes 35.0 % 11.0-4 7.0 normal Not Available [facility] [address] [place] [address], [address], 02/09/2023 14:51:28 02/10/20 23 02/09/2023 COMPL ETE BLOOD COUNT % monocytes 9.0 % 0.0-11 .0 normal Not Available [facility] [address] [place] [address], [address], 02/09/2023 14:51:28 02/10/20 23 02/09/2023 COMPL ETE BLOOD COUNT % eosinophils 2.0 % 0.0-7. 0 normal Not Available [facility] [address] [place] [address], [address], 02/09/2023 14:51:28 02/10/20 23 02/09/2023 COMPL ETE BLOOD COUNT % basophils 0.0 % 0.0-3. 0 normal Not Available [facility] [address] [place] [address], [address], 02/09/2023 14:51:28 02/10/20 23 02/09/2023 COMPL ETE BLOOD COUNT nucleated red cells 0.2 % 0.0-0. 9 normal Not Available [facility] [address] [place] [address], [address], 02/09/2023 14:51:28 02/10/20 23 02/09/2023 COMPL ETE BLOOD COUNT nucleated RBCs, absolute 0.01 10*3/ uL not estab. normal Not Available [facility] [address] [place] [address], [address], 02/09/2023 14:51:28 02/10/20 23 02/09/2023 MANUA L DIFFE RENTI AL % band neutrophils 0.0 % 0.0-7. 0 normal Not Available [facility] [address] [place] [address], [address], 02/09/2023 14:51:30 02/10/20 23 02/09/2023 MANUA L DIFFE RENTI AL % atypical lymphocytes 4 % 0-1 high Not Available [facility] [address] [place] [address], [address], 02/09/2023 14:51:30 02/10/20 23 02/09/2023 MANUA L DIFFE RENTI AL % metamyelocyt es 0 % 0-1 normal Not Available [facility] [address] [place] [address], [address], 02/09/2023 14:51:30 02/10/20 23 02/09/2023 MANUA L DIFFE RENTI AL % myelocytes 0 % 0-1 normal Not Available [facility] [address] [place] [address], [address], 02/09/2023 14:51:30 02/10/20 23 02/09/2023 MANUA L DIFFE RENTI AL % promyelocyte s 0 % 0 normal Not Available [facility] [address] [place] [address], [address], 02/09/2023 14:51:30 02/10/20 23 02/09/2023 MANUA L DIFFE RENTI AL % blast 0 % 0 normal Not Available [facility] [address] [place] [address], [address], 02/09/2023 14:51:30 02/10/20 23 02/09/2023 MANUA L DIFFE RENTI AL nucleated red cells 0 /100{ WBC} 0-1 normal Not Available [facility] [address] [place] [address], [address], 02/09/2023 14:51:30 02/10/20 23 02/09/2023 MANUA L DIFFE RENTI AL smudge cells 0 /100{ WBC} 0 normal Not Available [facility] [address] [place] [address], [phone], 02/09/2023 14:51:30 02/10/20 23 02/09/2023 MANUA L DIFFE RENTI AL platelet morphology NORMAL normal Not Available [facility] [address] [place] [address], [address], 02/09/2023 14:51:30 02/10/20 23 02/09/2023 MANUA L DIFFE RENTI AL stomatocytes SLIGHT abnormal Not Available [facility] [address] [place] [address], [address], 02/09/2023 14:51:30 03/30/20 23 03/30/2023 COMPL ETE BLOOD COUNT white blood cells 12.4 10*3/ uL 3.8-10 .8 high Not Available [facility] [address] [place] [address], [address], 03/30/2023 10:12:44 03/30/20 23 03/30/2023 COMPL ETE BLOOD COUNT red blood cells 4.37 10*6/ uL 3.80-5 .20 normal Not Available [facility] [address] [place] [address], [address], 03/30/2023 10:12:44 03/30/20 23 03/30/2023 COMPL ETE BLOOD COUNT hemoglobin 12.6 g/dL 12.0-1 6.0 normal Not Available [facility] [address] [place] [address], [address], 03/30/2023 10:12:44 03/30/20 23 03/30/2023 COMPL ETE BLOOD COUNT hematocrit 38.4 % 35.0-4 7.0 normal Not Available [facility] [address] [place] [address], [address], 03/30/2023 10:12:44 03/30/20 23 03/30/2023 COMPL ETE BLOOD COUNT MCV 88 fL 80-100 normal Not Available [facility] [address] [place] [address], [address], 03/30/2023 10:12:44 03/30/20 23 03/30/2023 COMPL ETE BLOOD COUNT MCH 29 pg 26-35 normal Not Available [facility] [address] [place] [address], [address], 03/30/2023 10:12:44 03/30/20 23 03/30/2023 COMPL ETE BLOOD COUNT MCHC 33 g/dL 32-36 normal Not Available [facility] [address] [place] [address], [address], 03/30/2023 10:12:44 03/30/20 23 03/30/2023 COMPL ETE BLOOD COUNT RDW 15.2 % 11.0-1 5.0 high Not Available [facility] [address] [place] [address], [address], 03/30/2023 10:12:44 03/30/20 23 03/30/2023 COMPL ETE BLOOD COUNT MPV 7.2 fL 6.2-10 .5 normal Not Available [facility] [address] [place] [address], [address], 03/30/2023 10:12:44 03/30/20 23 03/30/2023 COMPL ETE BLOOD COUNT platelet count 166 10*3/ uL 150-40 0 normal Not Available [facility] [address] [place] [address], [address], 03/30/2023 10:12:44 03/30/20 23 03/30/2023 COMPL ETE BLOOD COUNT neutrophil,a bsolute 5.8 10*3/ uL 1.6-8. 4 normal Not Available [facility] [address] [place] [address], [address], 03/30/2023 10:12:44 03/30/20 23 03/30/2023 COMPL ETE BLOOD COUNT lymphocyte,a bsolute 5.7 10*3/ uL 0.4-5. 1 high Not Available [facility] [address] [place] [address], [address], 03/30/2023 10:12:44 03/30/20 23 03/30/2023 COMPL ETE BLOOD COUNT monocyte,abs olute 0.7 10*3/ uL 0.0-1. 2 normal Not Available [facility] [address] [place] [address], [address], 03/30/2023 10:12:44 03/30/20 23 03/30/2023 COMPL ETE BLOOD COUNT eosinophil,a bsolute 0.1 10*3/ uL 0.0-0. 8 normal Not Available [facility] [address] [place] [address], [address], 03/30/2023 10:12:44 03/30/20 23 03/30/2023 COMPL ETE BLOOD COUNT basophil,abs olute 0.0 10*3/ uL 0.0-0. 3 normal Not Available [facility] [address] [place] [address], [address], 03/30/2023 10:12:44 03/30/20 23 03/30/2023 COMPL ETE BLOOD COUNT % neutrophils 46.9 % 42.0-7 8.0 normal Not Available [facility] [address] [place] [address], [address], 03/30/2023 10:12:44 03/30/20 23 03/30/2023 COMPL ETE BLOOD COUNT % lymphocytes 45.9 % 11.0-4 7.0 normal Not Available [facility] [address] [place] [address], [address], 03/30/2023 10:12:44 03/30/20 23 03/30/2023 COMPL ETE BLOOD COUNT % monocytes 5.8 % 0.0-11 .0 normal Not Available [facility] [address] [place] [address], [address], 03/30/2023 10:12:44 03/30/20 23 03/30/2023 COMPL ETE BLOOD COUNT % eosinophils 1.1 % 0.0-7. 0 normal Not Available [facility] [address] [place] [address], [address], 03/30/2023 10:12:44 03/30/20 23 03/30/2023 COMPL ETE BLOOD COUNT % basophils 0.3 % 0.0-3. 0 normal Not Available [facility] [address] [place] [address], [address], 03/30/2023 10:12:44 03/30/20 23 03/30/2023 COMPL ETE BLOOD COUNT nucleated red cells 0.1 % 0.0-0. 9 normal Not Available [facility] [address] [place] [address], [address], 03/30/2023 10:12:44 03/30/20 23 03/30/2023 COMPL ETE BLOOD COUNT nucleated RBCs, absolute 0.01 10*3/ uL not estab. normal Not Available [facility] [address] [place] [address], [address], 03/30/2023 10:12:44 03/30/20 23 03/30/2023 COMP. METAB OLIC PANEL glucose 107 mg/dL 74-100 high Not Available [facility] [address] [place] [address], [address], 03/30/2023 10:45:23 03/30/20 23 03/30/2023 COMP. METAB OLIC PANEL blood urea nitrogen 18 mg/dL 6-20 normal Not Available [facility] [address] [place] [address], [address], 03/30/2023 10:45:23 03/30/20 23 03/30/2023 COMP. METAB OLIC PANEL creatinine 1.44 mg/dL 0.50-0 .95 high Not Available [facility] [address] [place] [address], [address], 03/30/2023 10:45:23 03/30/20 23 03/30/2023 COMP. METAB OLIC PANEL BUN/creatini ne ratio 13 (calc ) 10-20 normal Not Available [facility] [address] [place] [address], [address], 03/30/2023 10:45:23 03/30/20 23 03/30/2023 COMP. METAB OLIC PANEL sodium 139 mmol/ L 136-14 5 normal Not Available [facility] [address] [place] [address], [address], 03/30/2023 10:45:23 03/30/20 23 03/30/2023 COMP. METAB OLIC PANEL potassium 4.3 mmol/ L 3.4-5. 0 normal Not Available [facility] [address] [place] [address], [address], 03/30/2023 10:45:23 03/30/20 23 03/30/2023 COMP. METAB OLIC PANEL chloride 103 mmol/ L 98-107 normal Not Available [facility] [address] [place] [address], [address], 03/30/2023 10:45:23 03/30/20 23 03/30/2023 COMP. METAB OLIC PANEL carbon dioxide 26 mmol/ L 22-31 normal Not Available [facility] [address] [place] [address], [address], 03/30/2023 10:45:23 03/30/20 23 03/30/2023 COMP. METAB OLIC PANEL anion gap 10 (calc ) 7-25 normal Not Available [facility] [address] [place] [address], [address], 03/30/2023 10:45:23 03/30/20 23 03/30/2023 COMP. METAB OLIC PANEL calcium 9.2 mg/dL 8.6-10 .2 normal Not Available [facility] [address] [place] [address], [address], 03/30/2023 10:45:23 03/30/20 23 03/30/2023 COMP. METAB OLIC PANEL total protein 7.0 g/dL 6.4-8. 3 normal Not Available [facility] [address] [place] [address], [address], 03/30/2023 10:45:23 03/30/20 23 03/30/2023 COMP. METAB OLIC PANEL albumin 4.6 g/dL 3.5-5. 2 normal Not Available [facility] [address] [place] [address], [address], 03/30/2023 10:45:23 03/30/20 23 03/30/2023 COMP. METAB OLIC PANEL globulin 2.4 1.5-4. 5 normal Not Available [facility] [address] [place] [address], [address], 03/30/2023 10:45:23 03/30/20 23 03/30/2023 COMP. METAB OLIC PANEL albumin/glob ulin ratio 1.9 (calc ) 1.1-2. 5 normal Not Available [facility] [address] [place] [address], [address], 03/30/2023 10:45:23 03/30/20 23 03/30/2023 COMP. METAB OLIC PANEL bilirubin, total 0.7 mg/dL 0.1-1. 2 normal Not Available [facility] [address] [place] [address], [address], 03/30/2023 10:45:23 03/30/20 23 03/30/2023 COMP. METAB OLIC PANEL alkaline phosphatase 68 U/L 30-121 normal Not Available [facility] [address] [place], [address], 03/30/2023 10:45:23 03/30/20 23 03/30/2023 COMP. METAB OLIC PANEL AST 17 U/L 0-32 normal Not Available [facility] [address] [place] [address], [address], 03/30/2023 10:45:23 03/30/20 23 03/30/2023 COMP. METAB OLIC PANEL ALT 12 U/L 0-33 normal Not Available [facility] [address] [place], [address], 03/30/2023 10:45:23 03/30/20 23 03/30/2023 COMP. METAB [...] s/KDO QI/gf r_cal culat orPed Not Available [facility] [address] [place], [address], 03/30/2023 10:45:23 08/09/19 24 08/09/2023 COMPL ETE BLOOD COUNT white blood cells 9.3 10*3/ uL 3.8-10 .8 normal Not Available [facility] [address] [place], [address], 08/09/2023 15:11:10 08/09/19 24 08/09/2023 COMPL ETE BLOOD COUNT red blood cells 4.31 10*6/ uL 3.80-5 .20 normal Not Available [facility] [address] [place] [address], [address], 08/09/2023 15:11:10 08/09/19 24 08/09/2023 COMPL ETE BLOOD COUNT hemoglobin 12.7 g/dL 12.0-1 6.0 normal Not Available [facility] [address] [place] [address], [address], 08/09/2023 15:11:10 08/09/19 24 08/09/2023 COMPL ETE BLOOD COUNT hematocrit 38.5 % 35.0-4 7.0 normal Not Available [facility] [address] [place] [address], [address], 08/09/2023 15:11:10 08/09/19 24 08/09/2023 COMPL ETE BLOOD COUNT MCV 89 fL 80-100 normal Not Available [facility] [address] [place] [address], [address], 08/09/2023 15:11:10 08/09/19 24 08/09/2023 COMPL ETE BLOOD COUNT MCH 30 pg 26-35 normal Not Available [facility] [address] [place] [address], [address], 08/09/2023 15:11:10 08/09/19 24 08/09/2023 COMPL ETE BLOOD COUNT MCHC 33 g/dL 32-36 normal Not Available [facility] [address] [place] [address], [address], 08/09/2023 15:11:10 08/09/19 24 08/09/2023 COMPL ETE BLOOD COUNT RDW 15.3 % 11.0-1 5.0 high Not Available [facility] [address] [place] [address], [address], 08/09/2023 15:11:10 08/09/19 24 08/09/2023 COMPL ETE BLOOD COUNT MPV 7.8 fL 6.2-10 .5 normal Not Available [facility] [address] [place] [address], [address], 08/09/2023 15:11:10 08/09/19 24 08/09/2023 COMPL ETE BLOOD COUNT platelet count 166 10*3/ uL 150-40 0 normal Not Available [facility] [address] [place] [address], [address], 08/09/2023 15:11:10 08/09/19 24 08/09/2023 COMPL ETE BLOOD COUNT neutrophil,a bsolute 2.7 10*3/ uL 1.6-8. 4 normal Not Available [facility] [address] [place] [address], [address], 08/09/2023 15:11:10 08/09/19 24 08/09/2023 COMPL ETE BLOOD COUNT lymphocyte,a bsolute 5.9 10*3/ uL 0.4-5. 1 high Not Available [facility] [address] [place] [address], [address], 08/09/2023 15:11:10 08/09/19 24 08/09/2023 COMPL ETE BLOOD COUNT monocyte,abs olute 0.7 10*3/ uL 0.0-1. 2 normal Not Available [facility] [address] [place] [address], [address], 08/09/2023 15:11:10 08/09/19 24 08/09/2023 COMPL ETE BLOOD COUNT eosinophil,a bsolute 0.1 10*3/ uL 0.0-0. 8 normal Not Available [facility] [address] [place] [address], [address], 08/09/2023 15:11:10 08/09/19 24 08/09/2023 COMPL ETE BLOOD COUNT basophil,abs olute 0.0 10*3/ uL 0.0-0. 3 normal Not Available [facility] [address] [place] [address], [address], 08/09/2023 15:11:10 08/09/19 24 08/09/2023 COMPL ETE BLOOD COUNT % neutrophils 29.0 % 42.0-7 8.0 low Not Available [facility] [address] [place] [address], [address], 08/09/2023 15:11:10 08/09/19 24 08/09/2023 COMPL ETE BLOOD COUNT % lymphocytes 63.0 % 11.0-4 7.0 high Not Available [facility] [address] [place] [address], [address], 08/09/2023 15:11:10 08/09/19 24 08/09/2023 COMPL ETE BLOOD COUNT % monocytes 7.0 % 0.0-11 .0 normal Not Available [facility] [address] [place] [address], [address], 08/09/2023 15:11:10 08/09/19 24 08/09/2023 COMPL ETE BLOOD COUNT % eosinophils 1.0 % 0.0-7. 0 normal Not Available [facility] [address] [place] [address], [address], 08/09/2023 15:11:10 08/09/19 24 08/09/2023 COMPL ETE BLOOD COUNT % basophils 0.0 % 0.0-3. 0 normal Not Available [facility] [address] [place] [address], [address], 08/09/2023 15:11:10 08/09/19 24 08/09/2023 COMPL ETE BLOOD COUNT nucleated red cells 0.2 % 0.0-0. 9 normal Not Available [facility] [address] [place] [address], [address], 08/09/2023 15:11:10 08/09/19 24 08/09/2023 COMPL ETE BLOOD COUNT nucleated RBCs, absolute 0.02 10*3/ uL not estab. normal Not Available [facility] [address] [place] [address], [address], 08/09/2023 15:11:10 08/09/19 24 08/09/2023 MANUA L DIFFE RENTI AL % band neutrophils 0.0 % 0.0-7. 0 normal Not Available [facility] [address] [place] [address], [address], 08/09/2023 15:11:12 08/09/19 24 08/09/2023 MANUA L DIFFE RENTI AL % atypical lymphocytes 0 % 0-1 normal Not Available [facility] [address] [place] [address], [address], 08/09/2023 15:11:12 08/09/19 24 08/09/2023 MANUA L DIFFE RENTI AL % metamyelocyt es 0 % 0-1 normal Not Available [facility] [address] [place] [address], [address], 08/09/2023 15:11:12 08/09/19 24 08/09/2023 MANUA L DIFFE RENTI AL % myelocytes 0 % 0-1 normal Not Available [facility] [address] [place] [address], [address], 08/09/2023 15:11:12 08/09/19 24 08/09/2023 MANUA L DIFFE RENTI AL % promyelocyte s 0 % 0 normal Not Available [facility] [address] [place] [address], [address], 08/09/2023 15:11:12 08/09/19 24 08/09/2023 MANUA L DIFFE RENTI AL % blast 0 % 0 normal Not Available [facility] [address] [place] [address], [address], 08/09/2023 15:11:12 08/09/19 24 08/09/2023 MANUA L DIFFE RENTI AL nucleated red cells 0 /100{ WBC} 0-1 normal Not Available [facility] [address] [place] [address], [address], 08/09/2023 15:11:12 08/09/19 24 08/09/2023 MANUA L DIFFE RENTI AL smudge cells 0 /100{ WBC} 0 normal Not Available [facility] [address] [place] [address], [address], 08/09/2023 15:11:12 08/09/19 24 08/09/2023 MANUA L DIFFE RENTI AL platelet morphology NORMAL normal Not Available [facility] [address] [place] [address], [address], 08/09/2023 15:11:12 08/09/19 24 08/09/2023 MANUA L DIFFE RENTI AL ovalocytes SLIGHT abnormal Not Available [facility] [address] [place] [address], [address], 08/09/2023 15:11:12 08/09/19 24 08/09/2023 COMP. METAB OLIC PANEL glucose 123 mg/dL 74-100 high Not Available [facility] [address] [place] [address], [address], 08/09/2023 15:28:21 08/09/19 24 08/09/2023 COMP. METAB OLIC PANEL blood urea nitrogen 16 mg/dL 6-20 normal Not Available [facility] [address] [place] [address], [address], 08/09/2023 15:28:21 08/09/19 24 08/09/2023 COMP. METAB OLIC PANEL creatinine 1.40 mg/dL 0.50-0 .95 high Not Available [facility] [address] [place] [address], [address], 08/09/2023 15:28:21 08/09/19 24 08/09/2023 COMP. METAB OLIC PANEL BUN/creatini ne ratio 11 (calc ) 10-20 normal Not Available [facility] [address] [place] [address], [address], 08/09/2023 15:28:21 08/09/19 24 08/09/2023 COMP. METAB OLIC PANEL sodium 139 mmol/ L 136-14 5 normal Not Available [facility] [address] [place] [address], [address], 08/09/2023 15:28:21 08/09/19 24 08/09/2023 COMP. METAB OLIC PANEL potassium 4.4 mmol/ L 3.4-5. 0 normal Not Available [facility] [address] [place] [address], [address], 08/09/2023 15:28:21 08/09/19 24 08/09/2023 COMP. METAB OLIC PANEL chloride 102 mmol/ L 98-107 normal Not Available [facility] [address] [place] [address], [address], 08/09/2023 15:28:21 08/09/19 24 08/09/2023 COMP. METAB OLIC PANEL carbon dioxide 24 mmol/ L 22-31 normal Not Available [facility] [address] [place] [address], [address], 08/09/2023 15:28:21 08/09/19 24 08/09/2023 COMP. METAB OLIC PANEL anion gap 13 (calc ) 7-25 normal Not Available [facility] [address] [place] [address], [address], 08/09/2023 15:28:21 08/09/19 24 08/09/2023 COMP. METAB OLIC PANEL calcium 9.4 mg/dL 8.6-10 .2 normal Not Available [facility] [address] [place] [address], [address], 08/09/2023 15:28:21 08/09/19 24 08/09/2023 COMP. METAB OLIC PANEL total protein 7.5 g/dL 6.4-8. 3 normal Not Available [facility] [address] [place] [address], [address], 08/09/2023 15:28:21 08/09/19 24 08/09/2023 COMP. METAB OLIC PANEL albumin 4.4 g/dL 3.5-5. 2 normal Not Available [facility] [address] [place] [address], [address], 08/09/2023 15:28:21 08/09/19 24 08/09/2023 COMP. METAB OLIC PANEL globulin 3.1 1.5-4. 5 normal Not Available [facility] [address] [place] [address], [address], 08/09/2023 15:28:21 08/09/19 24 08/09/2023 COMP. METAB OLIC PANEL albumin/glob ulin ratio 1.4 (calc ) 1.1-2. 5 normal Not Available [facility] [address] [place] [address], [address], 08/09/2023 15:28:21 08/09/19 24 08/09/2023 COMP. METAB OLIC PANEL bilirubin, total 0.9 mg/dL 0.1-1. 2 normal Not Available [facility] [address] [place] [address], [address], 08/09/2023 15:28:21 08/09/19 24 08/09/2023 COMP. METAB OLIC PANEL alkaline phosphatase 74 U/L 30-121 normal Not Available [facility] [address] [place] [address], [address], 08/09/2023 15:28:21 08/09/19 24 08/09/2023 COMP. METAB OLIC PANEL AST 15 U/L 0-32 normal Not Available [facility] [address] [place] [address], [address], 08/09/2023 15:28:21 08/09/19 24 08/09/2023 COMP. METAB OLIC PANEL ALT 10 U/L 0-33 normal Not Available [facility] [address] [place], [address], 08/09/2023 15:28:21 08/09/19 24 08/09/2023 COMP. METAB [...] s/KDO QI/gf r_cal culat orPed Not Available [facility] [address] [place], [address], 08/09/2023 15:28:21 08/09/19 24 08/09/2023 LDH LDH 175 U/L 135-23 3 normal Not Available [facility] [address] [place], [address], 08/09/2023 15:29:25 02/18/20 22 02/05/2022 CT, abdom en + pelvi s, w/ contr ast No observ ation record ed. [email or web address] [facility] (Med Record) [address], [place], [address], 05/26/2022 14:25:37 03/30/20 23 03/30/2023 PET-C T, skull base to mid-t high scan [facility] [address] [place] [address] [place] [facility] [place] [address] Patien t Name: ABIMAEL IVERSON Patien t : [birth year] Patien t 7 Orderi ng Provid er: LESA COSTA EXAM DATE: 2022 EXAM: PET-CT TUMOR SKULL BASE-M ID THIGH [facility] AL INFORM ATION: Head and Neck Cancer - Restag ing. Dense base cancer . PROCED URE: Baseli ne blood glucos e level was 134 mg/dL. 11.58 mCi F-18 FDG ([facility] [address]- [address]11-3 0) was inject ed IV. After [...] David Merida MD on 2022 1:[address] Radiology [facility] [address] [place], [address], 01/27/2024 11:07:00 Result Notes None recorded. 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 Procedures Surgical History Date Name Laterality Status Provider Name and Address Organization Details Recorded Time Chemo Nurse Assessment completed Alexa Renae [facility] 06/02/2021 16:26:14 Imaging Results Imaging Date Name Status LastModified by Organiz ation Details LastModified Time 02/05/2022 CT, abdomen + pelvis, w/ contrast completed [address] (Med Record) [address], [place], [address], 05/26/2022 14:25:37 03/30/2023 PET-CT, skull base to mid-thigh scan completed [address] [facility] [address] [place], [address], 01/27/2024 11:07:00 Procedure Notes None recorded. Medical Equipment None Reported. Allergies Allergen ID Allergen Name Allergen Category Reaction Reaction Severity Criticality Documentation Date Start Date Code Code System Note Provider Name and Address Organization Details Recorded Time 525787 Product containin g 3-hydroxy -3-methyl glutaryl- coenzyme A reductase inhibitor (product) medicatio n Not available Not available Not available 12/26/2018 53837 009 SNOMED [facility]aceli [facility]alos [facility] 9 11:55:37 Medications Name Sig Start Date [...] Updated DateTime 2 167.64 cm 38.6 kg/m2 974581. 58 g 97.3 [degF] 85 /min 95 % 95 % 117 mm[Hg] 78 mm[Hg] Dinah Colbert [facility] 2 13:27:07 Date Recorded Body height Body mass index (BMI) Body weight Body temperature Heart rate Oxygen saturation Oxygen saturation in Arterial blood by Pulse oximetry Systolic blood pressure Diastolic blood pressure Provider Name and Address Organization Details Last Updated DateTime 2 167.64 cm 42.3 kg/m2 247708. 55 g 99.1 [degF] 90 /min 96 % 96 % 122 mm[Hg] 87 mm[Hg] Latoya Gayel [facility] 2 15:25:41 Date Recorded Body height Body mass index (BMI) Body weight Body temperature Heart rate Oxygen saturation Oxygen saturation in Arterial blood by Pulse oximetry Systolic blood pressure Diastolic blood pressure Provider Name and Address Organization Details Last Updated DateTime 2 167.64 cm 40.5 kg/m2 980640. 03 g 98 [degF] 81 /min 96 % 96 % 129 mm[Hg] 64 mm[Hg] Lucy kapoor [facility] 2 14:30:46 Date Recorded Body height Body mass index (BMI) Body weight Body temperature Heart rate Oxygen saturation Oxygen saturation in Arterial blood by Pulse oximetry Systolic blood pressure Diastolic blood pressure Provider Name and Address Organization Details Last Updated DateTime 3 167.64 cm 39.3 kg/m2 756426 g 98.3 [degF] 90 /min 97 % 97 % 145 mm[Hg] 92 mm[Hg] Elizabeth Escoto [facility] 3 14:13:43 Date Recorded Body height Body mass index (BMI) Body weight Body temperature Heart rate Oxygen saturation Oxygen saturation in Arterial blood by Pulse oximetry Systolic blood pressure Diastolic blood pressure Provider Name and Address Organization Details Last Updated DateTime 3 167.64 cm 37.8 kg/m2 659441. 66 g 97.7 [degF] 77 /min 91 % 91 % 147 mm[Hg] 90 mm[Hg] Lucy SilvioJoselin antwon [facility] 3 13:19:06 Social History Question Answer Notes LastModified by OrganizProximus ion Details LastModified Time Tobacco Smoking Status Former Smoker Skye Karson montero, [facility] 05/09/2019 13:09:00 How Much Tobacco Do You Chew? None Information not available 05/09/2019 Education Level High School Informa tion not available 02/17/2022 Learning Preferences Written Information not available 02/17/2022 What Was The Date Of Your Most Recent Tobacco Screening? 09/01/2022 Information not available 09/01/2022 How Much Tobacco Do You Smoke? No Unknown Information not available 05/09/2019 Has Tobacco Cessation Counseling Been Provided? No Information not available 03/31/2021 How Many Years Have You Smoked Tobacco? 0 Information not available 08/29/2019 Sex: Unknown Functional Status Question Answer Note LastModified by Organizat ion Details LastModified Time Do you use any illicit or recreational drugs? No Information not available 03/31/2021 Do you or have you ever used any other forms of tobacco or nicotine? No Information not available 08/04/2021 What is your level of alcohol consumption? None Information not available 05/09/2019 Do you or have you ever used smokeless tobacco? Never used smokeless tobacco Information not available 05/09/2019 Do you or have you ever used e-cigarettes or vape? Never used electronic cigarettes Information not available 05/09/2019 Mental Status None recorded. Family History Relationship [...] split virus, quadrivalent, preservative 9 completed Skye Yohantaile [facility] 05/09/2019 13:08:41 Influenza, high-dose, quadrivalent, PF 0 completed Skye Battaile [facility] 02/19/2020 12:43:10 COVID-19, mRNA, LNP-S, PF, 100 mcg/0.5mL dose or 50 mcg/0.25mL dose 1 completed Skye Almanzartaile [facility] 07/01/2020 13:37:46 COVID-19, mRNA, LNP-S, PF, 100 mcg/0.5mL dose or 50 mcg/0.25mL dose 1 completed Skye Battaile [facility] 12/02/2020 12:53:26 COVID-19, mRNA, LNP-S, PF, 100 mcg/0.5mL dose or 50 mcg/0.25mL dose 1 completed Dinaheliezer Carterin [facility] 08/04/2021 13:23:03 Influenza, high-dose, quadrivalent, PF 1 completed Dinah Filemon [facility] 08/04/2021 13:23:18 pneumococcal polysaccharide PPV23 8 completed Dinah Carterin [facility] 08/04/2021 13:23:32 Pneumococcal conjugate PCV 13 2 completed Dinah Colbert [facility] 08/04/2021 13:24:01 Influenza, split virus, quadrivalent, preservative 2 completed Lucy Louise [facility] 02/17/2022 14:22:09 Past Encounters Encounter ID Performer Location Encounter Start Date Encounter Closed Date Diagnosis/Indication Diagnosis SNOMED-CT Code Diagnosis ICD10 Code Diagnosis Note [id number] LESA COSTA MD H[facility] [address] [place] [address] 05/11/2016 11:58:36 05/11/2016 14:15:47 [id number] LESA COSTA MD H[facility] [address] [place] [address] 08/18/2016 12:10:51 08/18/2016 14:21:27 [id number] LESA COSTA MD HEM/[facility] [address] [place] [address] 11/17/2016 12:10:53 11/17/2016 13:43:48 [id number] LESA COSTA MD [facility] [address] [place] [address] 01/11/2017 13:21:52 01/11/2017 14:58:19 [id number] LESA COSTA MD H[facility] [address] [place] [address] 05/18/2017 11:39:11 05/18/2017 12:55:13 [id number] LESA COSTA MD [facility] [address] [place] [address] 08/17/2017 12:32:59 08/17/2017 14:27:17 [id number] LESA COSTA MD [facility] [address] [place] [address] 11/09/2017 14:45:25 11/09/2017 15:50:59 [id number] LESA COSTA MD H[facility] [address] [place] [address] 12/21/2017 12:04:01 12/21/2017 13:34:16 [id number] LESA COSTA MD H[facility] [address] [place] [address] 01/17/2018 12:07:55 01/17/2018 14:11:32 [id number] LESA COSTA MD H[facility] [address] 6 02/15/2018 11:44:26 02/15/2018 13:23:48 [id number] LESA COSTA MD HEM/[facility]C [facility] [address] 6 03/15/2018 14:36:34 03/15/2018 15:45:06 [id number] GIOVANNI SHAH PA-C CARDIOLOG Y [address] [place] [address] 5 03/18/2018 10:49:48 03/18/2018 15:10:16 [id number] LESA COSTA MD HEM/[facility] [address] 6 04/18/2018 12:17:31 04/18/2018 14:34:47 [id number] GIOVANNI SHAH PA-C CARDIOLOG Y [address] [place] [address] 04/22/2018 11:21:47 04/22/2018 12:45:40 [id number] GIOVANNI SHAH PA-C CARDIOLOG Y [address] [place] [address] 05/31/2018 10:11:34 05/31/2018 11:28:40 [id number] LESA COSTA MD HEM/[facility] [address] [place] [address] 06/20/2018 09:48:09 06/20/2018 11:39:13 [id number] ADDISON GARSIA JR, MD GENERAL SURGERY [facility] [address] [place] [address] 08/02/2018 11:23:01 08/10/2018 08:30:14 [id number] VAN CORNELL MD [facility] [address] [place] [address] [place] [address] 08/31/2018 08:24:51 09/02/2018 14:35:45 [id number] GIOVANNI SHAH PA-C CARDIOLOG Y [address] [place] [address] 08/31/2018 08:25:59 08/31/2018 10:39:30 [id number] LESA COSTA MD HEM/[facility]C [facility] [address] [address] 09/19/2018 10:50:22 09/19/2018 12:29:35 [id number] GIOVANNI SHAH PA-C CARDIOLOG Y [address] [place] [address] 10/14/2018 14:37:27 10/14/2018 16:02:28 [id number] GIOVANNI SHAH PA-C CARDIOLOG Y [address] ,[address] [place] [address] 12/13/2018 13:51:29 12/13/2018 14:51:29 [id number] LESA COSTA MD HEM/ONC [facility] CLOSED [address] [place] [address] 12/26/2018 11:52:40 12/26/2018 13:36:09 Overweight [id number] E66.3 Encourage exercise and weight loss. Malignant lymphoma - small lymphocytic [id number] C83.00 Given right supraclavi cular LU, we will obtain CT neck, chest. [id number] LESA COSTA MD HEM/ONC [facility]ED [address] [place] [address] 05/09/2019 12:55:16 05/09/2019 14:08:42 Overweight [id number] E66.3 Encourage exercise and weight loss. Malignant lymphoma - small lymphocytic [id number] C83.00 Pt is doing well from this as she has no symptomati c LU or cytopenias . We will reimage in 3 months. I am unsure of the etiology of her symptoms are related to this but to her depression . 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 Pt's labs, exam and scan is stable. She was advised regarding COVID -19 precaution s. 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 66160937 C85.99 As above. Overweight [id number] E66 .3 Encourage exercise and weight loss. Malignant lymphoma - small lymphocytic [id number] C83.00 Pt is doing well from this as she has no symptomati c LU or cytopenias . We will reimage in 3 months pending her PE. [id number] LESA COSTA MD HEM/ONC SB CLOSED [address] [facility] [address] [place] [address] 11/28/2019 14:36:02 11/28/2019 15:10:55 Malignant lymphoma of intra-abdominal lymph nodes 64708340 C85.93 CLL/SLL. Pt's labs, exam and scan is stable. She was advised regarding COVID -19 precaution s. She will continue on Imbruvica as prescribed . 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 29184790 C85.99 As above. [id number] LESA COSTA MD HEM/ONC SB CLOSED [address] [place] [address] 02/19/2020 12:36:14 02/19/2020 13:05:30 Malignant lymphoma of intra-abdominal lymph nodes [id number] C85.93 CLL/SLL. Pt's labs, exam and scan is stable 08/25/19. She was advised regarding COVID -19 precaution s. She will continue on Imbruvica as prescribed . Pt is doing well. Pt has received her flu shot. 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 10047248 C85.99 As above. [id number] LESA COSTA MD HEM/ONC SB CLOSED [address] [address] [place] [address] 07/01/2020 13:29:08 07/01/2020 14:54:44 Malignant lymphoma of intra-abdominal lymph nodes [id number] C85.93 CLL/SLL. Pt's labs are stable. She was advised regarding COVID -19 precaution s. She will continue on Imbruvica as prescribed . Pt is doing well. Pt has received her flu shot and received her second COVID vaccine 06/28/20. 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 [id number] C85.99 As above. Stasis lidia matitis of lower limb due to chronic peripheral venous hypertension [id number] I87.399 FU with cardiology and PT. [id number] LESA COSTA MD HEM/ONC SB CLOSED [address] [facility] [place] [address] 12/02/2020 12:48:15 12/02/2020 13:16:37 Malignant lymphoma of intra-abdominal lymph nodes [id number] C85.93 CLL/SLL. Pt's labs are pending. She was advised regarding COVID -19 precaution s. She will continue on Imbruvica as prescribed . Pt is doing well. Pt has received her flu shot and received her second COVID vaccine 06/28/20. I have instructed pt to take booster COVID vaccine. 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 [id number] C85.99 As above. Stasis lidia matitis of lower limb due to chronic peripheral venous hypertension [id number] I87.399 FU with cardiology and PT. [id number] LESA COSTA MD HEM/ONC SB CLOSED [address] [place] [address] 03/31/2021 12:14:48 03/31/2021 13:02:49 Malignant lymphoma of intra-abdominal lymph nodes [id number] C85.93 CLL/SLL. Pt's labs are pending. She was advised regarding COVID -19 precaution s. She will hold Imbruvica as prescribed given her swelling and to see if that helps. Pt is doing well. Pt has received her flu shot and received her second COVID vaccine 06/28/20. I have instructed pt to take booster COVID vaccine. 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 [id number] C85.99 As above. Stasis lidia matitis of lower limb due to chronic peripheral venous hypertension [id number] I87.399 FU with cardiology and PT. [id number] LESA COSTA MD HEM/ONC SB CLOSED [address] [place] [address] 06/02/2021 12:15:50 06/02/2021 14:29:15 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 [id number] C85.99 As above. Malignant lymphoma of intra-abdominal lymph nodes 44832035 C85.93 CLL/SLL. Pt's labs are reviewed. She [...] limb due to chronic peripheral venous hypertension [id number] I87.399 FU with cardiology and PT. Syncope [id number] R55 I have asked pt to go to ER and she pleasantly declines. I wonder if this is secondary to hypoxemia with ambulation as her oxygen sats dropped in to the 80s. I also wish her to have her brain imaged. We are encouragin g her as well. [id number] LESA COSTA MD HEM/ONC SB CLOSED [address] [place] [address] 06/02/2021 15:53:28 06/02/2021 16:27:08 [id number] LESA COSTA MD HEM/ONC SB CLOSED [address] [facility] [address] [address] [place] [address] 08/04/2021 12:58:04 08/04/2021 13:55:28 Malignant lymphoma of intra-abdominal lymph nodes [id number] C85.93 CLL/SLL. Pt's labs are reviewed. She [...] lymphoma of extranodal AND/OR solid organ site 26504527 C85.99 As above. [id number] LESA COSTA MD HEM/ONC SB CLOSED [address] [facility] [address] [place] [address] 11/18/2021 15:10:29 11/18/2021 16:06:46 Malignant lymphoma of intra-abdominal lymph nodes 08100328 C85.93 CLL/SLL. Pt's labs are reviewed. She was advised regarding COVID -19 precaution s. She will continue to hold Imbruvica as prescribed given her swelling is improved and to see if that helps as her WBC is normal. Pt is doing well. 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 [id number] C85.99 As above. Atrial fibrillation [id number] [id number] I48.91 [id number] LESA COSTA MD HEM/ONC SB CLOSED [address] [facility] [address] [address] [place] [address] 02/17/2022 13:13:11 02/17/2022 15:56:55 Malignant lymphoma of intra-abdominal lymph nodes 96206958 C85.93 CLL/SLL. Pt's labs are reviewed. She was advised regarding COVID -19 precaution s. She will continue to hold Imbruvica as prescribed given her swelling is improved and her WBC is normal. Pt is doing well. 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 [id number] C85.99 As above. [id number] LESA COSTA MD HEM/ONC SB CLOSED [address] [place] [address] 05/26/2022 13:03:54 05/26/2022 14:36:10 Malignant lymphoma of intra-abdominal lymph nodes [id number] C85.93 CLL/SLL. Pt's labs are reviewed. She was advised regarding COVID -19 precaution s. She will continue to hold Imbruvica as prescribed given her swelling is improved and her WBC is normal. Pt is doing well. 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 [id number] C85.99 As above. History of malignant neoplasm of skin [id number] Z85.828 Obtain pathology. [id number] LESA COSTA MD HEM/ONC SB CLOSED [address] [place] [address] 09/01/2022 12:09:23 09/01/2022 14:15:37 Malignant lymphoma of intra-abdominal lymph nodes [id number] C85.93 CLL/SLL. Pt's labs are reviewed. She will off all therapies. WBC is normal. Pt is doing well. 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 61697436 C85.99 As above. History of malignant neoplasm of skin [id number] Z85.828 FU dermatolog y. [id number] MACK TORREZ MD ENT SB [address] [place] [address] 1 01/15/2023 13:08:12 01/15/2023 15:31:51 [id number] MACK TORREZ MD SURGERY SCHEDULE [address] [place] [address] 1 02/22/2023 10:51:07 02/22/2023 10:51:56 [id number] MACK TORREZ MD ENT SB [address] [place] [address] 1 05/11/2023 12:42:55 05/11/2023 15:23:03 Health Concerns Section Related Observation LastModified by Organization Detai ls LastModified Time None Recorded Concern Status LastModified by Organization Details LastModified Time None Recorded Advance Directives Directive None Recorded Payers Insurance Date Sequence Insurance Name Policy Number Policy Leon Covered Member ID Leon Member ID Guarantor Name 06/05/2024 PAYMENT PLAN Shea Iverson 08/09/2024 1 [place] Shea Iverson [id number] Shea Iverson 05/04/2023 2 [facility] PLAN (MEDICAID REPLACEMENT - HMO) [id number] Shea Iverson [id number] Shea Iverson Notes Date Note Type Note Provider Name and Address Organization Details Recorded Time 2 text/html HPIReported bypatient.Advanced Directives / [employer] AuthorizationsAdvanced Directives? NO Dischargedischarge mode ambulatory; discharge disposition stable Distress ScreeningHas the distress screening been completed in the last 45 days? NO; Distress level 7 Practical Problemsno practical problems Family Problemsno family problems Emotional Problemsdepression;nervousn ess;loss of interest Spiritual/Religiousspiritua l/holiness problems? NO Physical Problemsconstipation;weight gain;eating/ingestion problem(indigestion);change s [...] at her last visit. LESA COSTA MD [facility] [place], [address], [facility] 08/04/2021 13:49:19 2 text/html HPIReported bypatient.Advanced Directives / [employer] AuthorizationsAdvanced Directives? NO Dischargedischarge mode ambulatory; discharge disposition stable Distress ScreeningHas the distress screening been completed in the last 45 days? NO; Distress level 7 Practical Problemsno practical problems Family Problemsno family problems Emotional Problemsdepression;nervousn ess;loss of interest Spiritual/Religiousspiritua l/holiness problems? NO Physical Problemsweight gain;changes in urination;fatigue;feeling [...] episode 3 months ago. LESA COSTA MD [facility] [place], [address], [facility] 11/18/2021 15:59:20 2 text/html HPIReported bypatient.Advanced Directives / [employer] AuthorizationsAdvanced Directives? NO Dischargedischarge mode ambulatory; discharge disposition stable Distress ScreeningHas the distress screening been completed in the last 45 days? NO; Distress level 3 Practical Problemstreatment decisions stress Family Problemsno family problems Emotional Problemsdepression;nervousn ess;worry(Anxiety);loss of interest Spiritual/Religiousspiritua l/holiness problems? NO Physical Problemsfatigue;feeling swollen(Legs has lymphedema);sleep [...] she had a syncope. LESA COSTA MD [address] [place] [address], [address], [facility] 02/17/2022 14:53:10 3 text/html HPIReported bypatient.Advanced Directives / [employer] AuthorizationsAdvanced Directives? NO Dischargedischarge mode ambulatory; discharge disposition stable Distress ScreeningHas the distress screening been completed in the last 45 days? NO; Distress level 6 Practical Problemstreatment decisions stress Family Problemsno family problems Spiritual/Religiousspiritua l/holiness problems? NO Physical Problemsfeeling swollen(Legs has lymphedema);memory/concentr [...] squamous cell carcinoma yesterday. LESA COSTA MD [address] [place], [address], [facility] 05/26/2022 14:28:01 3 text/html HPIReported bypatient.Advanced Directives / [employer] AuthorizationsAdvanced Directives? NO Dischargedischarge mode ambulatory; discharge disposition stable Distress ScreeningHas the distress screening been completed in the last 45 days? NO; Distress level 2 Practical Problemstreatment decisions stress Family Problemsno family problems Spiritual/Religiousspiritua l/holiness problems? NO Physical Problemsfatigue;feeling swollen(Legs has lymphedema);memory/concentr [...] with LE edema. LESA COSTA MD [address] [place], [address], [facility] 09/01/2022 13:33:31 OBGyn Episode No OBEpisode recorded.
[2024-09-04 15:56] LABS: PHA INR Fingerstick 2.3 (0.9-1.1)
== END 2024-09-04 16:04 ==
LOC: ACC 14:11
PROVIDERS: PCP Nurse Practitioner Family; Visit Provider Internal Medicine Adolescent Medicine
DX: Z79.01 Long term (current) use of anticoagulants (principal); I48.91 Unspecified atrial fibrillation
CPT/HCPCS: 85610; 99211; G0463

== ENCOUNTER 2024-10-17 12:48 | Outpatient (CLI) | payer MEDICARE, SELFPAY ==
--- NOTE | 2024-10-17 12:51 | CT_ITS ---
FINAL REPORT TECHNIQUE: Thin section axial CT images with coronal and sagittal reformats were performed through the neck. This study was performed with techniques to keep radiation doses as low as reasonably achievable (ALARA). Individualized dose reduction techniques using automated exposure control or adjustment of mA and/or kV according to the patient''s size were employed. CLINICAL HISTORY: hx of Hodgkin's lymphoma COMPARISON: 11/11/2023 FINDINGS: The paranasal sinuses are well aerated. There is a multitude of bilateral cervical, supraclavicular, axillary, and mediastinal lymph nodes which compared to the previous exam are larger and more numerous. A left submandibular lymph node now measures 18 x 11 mm. A right paracervical triangular node now measures 25 x 18 mm, and a right supraclavicular node now measures 24 x 15 mm and previously measured 18 x 10. IMPRESSION: Significant interval increase in size and number of cervical lymph nodes consistent with progressive disease. Reviewed, Interpreted and Dictated by Don Zhang MD Transcribed by Judy Luis Authenticated and [facility]
--- NOTE | 2024-10-17 12:51 | CT_ITS ---
FINAL REPORT TECHNIQUE: Axial images were obtained through the chest without contrast. Coronal and sagittal images were obtained and reviewed. This study was performed with techniques to keep radiation doses as low as reasonably achievable, (ALARA). Individualized dose reduction techniques using automated exposure control or adjustment of mA and/or kV according to the patient's size were employed. CLINICAL HISTORY: HX OF HODGKINS LYMPHOMA COMPARISON: 01/11/2024 FINDINGS: There is extensive mediastinal and axillary adenopathy. Nodes are significantly larger and more numerous than on the previous exam. The heart size is normal. There is no pericardial or pleural effusion. Spiculated density in the right upper lobe now measures 3.7 x 4.0 cm, larger than on the previous exam and well seen on image 20 of series 4. There are advanced changes of centrilobular emphysema. Mild ground-glass opacity in both lungs are similar to the previous study. IMPRESSION: Significant progression of mediastinal and axillary adenopathy. Increased size of right upper lobe lung lesion. Patchy ground-glass opacity in both lungs is stable. Reviewed, Interpreted and Dictated by Don Zhang MD Transcribed by Judy Luis Authenticated and [facility]
--- NOTE | 2024-10-17 12:51 | CT_ITS ---
FINAL REPORT TECHNIQUE: Axial images through the abdomen and pelvis were performed without contrast. Coronal and sagittal reconstructed images were obtained and reviewed. This study was performed with techniques to keep radiation doses as low as reasonably achievable, (ALARA). Individualized dose reduction techniques using automated exposure control or adjustment of mA and/or kV according to the patient's size were employed. CLINICAL HISTORY: History of Hodgkin's lymphoma COMPARISON: 02/05/2022 FINDINGS: Abdomen: The lung bases are clear. The liver parenchyma is homogeneous. The gallbladder is surgically absent. The spleen is normal size. There is fatty infiltration of the pancreas. The adrenals and kidneys are unremarkable. There is extensive portal, celiac and retroperitoneal adenopathy, which is new from the prior exam. Pelvis: The urinary bladder is unremarkable. The appendix is not visualized. There are enlarged bilateral iliac nodes measuring up to 4.5 x 2.5 cm on the right and up to 4.1 x 2.6 cm on the left. There are multiple enlarged inguinal lymph nodes. These inguinal lymph nodes measure up to 2.7 cm on the right. IMPRESSION: Interval development of extensive portal, celiac, retroperitoneal, iliac and inguinal adenopathy consistent with progressive lymphoma. Reviewed, Interpreted and Dictated by Don Zhang MD Transcribed by [place] Authenticated and [facility]
--- OUTSIDE RECORDS SUMMARY | 2024-10-17 12:51 | XMS_ITS | Encounter Summary ---
Author Organization Healthcare Address [address] [place] [address] Care Team Providers Care Contact Lens Polisher Name Role Phone Pcp, No Primary Care Provider Oren Hull MD Primary Care Provider Sima Trejo MD Unavailable [phone] Encounter Details Date Type Department Care Team (Late st Contact Info) Description 08/04/2021 Orders Only [facility] [address] [place] [address] Sima Trejo MD [address] [address] Social History Tobacco Use Types Packs/Day Years Used Date Smoking Tobacco: Never Assessed Comments Unknown Sex and Gender Information Value Date Recorded Sex Assigned at Not on file Legal Sex Female 8:16 PM EDT Gender Identity Not on file Sexual Orientation Not on file documented as of this encounter Plan of Treatment Upcoming Encounters Date Type Department Care Team (Late st Contact Info) Description 11/07/2024 1:15 PM EDT Office Visit [facility] [address] [place] [address] 11/07/2024 2:15 PM EDT Office Visit [facility] [address] [place] [address] Sima Trejo MD [address] [place] [address] [address] [phone] (work) documented as of this encounter Procedures Procedure Name Priority Date/Time Associated Diagnosis Comments CBC WITH AUTO DIFFERENTIAL Routine 08/04/2021 12:43 PM EDT documented in this encounter Results * (ABNORMAL) CBC and Differential (08/04/2021 12:43 PM EDT) External WBC 6.0 3.8 - 10.8 K/uL [facility] External Red Blood Cell (RBC) 3.89 3.80 - 5.20 M/uL [facility] External Hemoglobin 11.9(L) 12.0 - 16.0 G/DL [facility] External Hematocrit 36.0 35.0 - 47.0 % [facility] External MCV 93 80 - 100 fL [facility] External MCH 31 26 - 35 PG [facility] External MCHC 33 32 - 36 G/DL [facility] External RDW 15.0 11.0 - 15.0 % [facility] External Mean Platelet Volume 7.1 6.2 - 10.5 fL [facility] External Platelets 131 130 - 400 K/uL [facility] External Neutrophil# 4.0 1.6 - 8.4 K/uL [facility] External Lymphocyte# 1.3 0.4 - 5.1 K/uL [facility] External Absolute Monocyte (Abs [place]) 0.4 0.0 - 1.2 K/uL [facility] External Eosinophils# 0.1 0.0 - 0.8 K/uL [facility] External Baso# 0.0 0.0 - 0.3 K/uL [facility] External Neutrophils % 68.0 42.0 - 78.0 % [facility] External Lymphocyte % 21.8 11.0 - 47.0 % [facility] External Monocyte % 7.3 0.0 - 11.0 % [facility] External Eosinophil% 2.1 0.0 - 7.0 % [facility] External Basophil % 0.8 0.0 - 3.0 % [facility] External Nucleated RBC%-Auto 0.1 0.0 - 0.9 % [facility] External Nucleated RBC Absolute 0.01 Not Estab. K/uL [facility] 08/04/2021 12:4 3 PM EDT 08/04/2021 1:08 PM EDT Sima Trejo MD LAB BLOOD ORDERABLES Final Re sult [facility] [address] [place] [address], documented in this encounter Visit Diagnoses Not on filedocumented in this encounter Care Teams Contact Lens Polisher Relationship Specialty Start Date End Date Pcp, No [address] [place] [address] PCP - General 12/02/20 02/08/23 Oren Pressley MD [address] [place] [address] PCP - General Internal Medicine 02/09/23 Sima Trejo MD [address] [address] Medical Oncologist Hematology and Oncology 08/02/23 documented as of this encounter
--- OUTSIDE RECORDS SUMMARY | 2024-10-17 12:51 | XMS_ITS | Encounter Summary ---
Author Organization Healthcare Address [address] [place] [address] Care Team Providers Care Laboratory Animal Facility Supervisor Name Role Phone Pcp, No Primary Care Provider Oren Hull MD Primary Care Provider [phone] Sima Trejo MD Unavailable [phone] Encounter Details Date Type Department Care Team (Late st Contact Info) Description 06/02/2021 Orders Only [facility] [address] [place] [address] Sima Trejo MD [address] [address] Social History Tobacco Use Types [...] Description 11/07/2024 1:15 PM EDT Office Visit [facility] [address] [place] [address] 11/07/2024 2:15 PM EDT Office Visit [facility] [address] [place] [address] Sima Trejo MD [address] [address] documented as of this encounter Procedures Procedure Name Priority Date/Time Associated Diagnosis Comments CBC WITH AUTO DIFFERENTIAL Routine 06/02/2021 12:06 PM EST documented in this encounter Results * CBC and Differential (06/02/2021 12:06 PM EST) External WBC 7.1 3.8 - 10.8 K/uL [facility] External Red Blood Cell (RBC) 4.41 3.80 - 5.20 M/uL [facility] External Hemoglobin 13.6 12.0 - 16.0 G/DL [facility] External Hematocrit 40.9 35.0 - 47.0 % [facility] External MCV 93 80 - 100 fL [facility] External MCH 31 26 - 35 PG [facility] External MCHC 33 32 - 36 G/DL [facility] External RDW 14.6 11.0 - 15.0 % [facility] External Mean Platelet Volume 7.3 6.2 - 10.5 fL [facility] External Platelets 198 130 - 400 K/uL [facility] External Neutrophil# 4.1 1.6 - 8.4 K/uL [facility] External Lymphocyte# 2.1 0.4 - 5.1 K/uL [facility] External Absolute Monocyte (Abs [place]) 0.7 0.0 - 1.2 K/uL [facility] External Eosinophils# 0.1 0.0 - 0.8 K/uL [facility] External Baso# 0.1 0.0 - 0.3 K/uL [facility] External Neutrophils % 58.0 42.0 - 78.0 % [facility] External Lymphocyte % 30.1 11.0 - 47.0 % [facility] External Monocyte % 9.4 0.0 - 11.0 % [facility] External Eosinophil% 1.5 0.0 - 7.0 % [facility] External Basophil % 1.0 0.0 - 3.0 % [facility] External Nucleated RBC%-Auto 0.1 0.0 - 0.9 % [facility] External Nucleated RBC Absolute 0.01 Not Estab. K/uL [facility] 06/02/2021 12:0 6 PM EST 06/02/2021 12:41 PM EST Sima Trejo MD LAB BLOOD ORDERABLES Final Re sult [facility] [address] [place] [address], [place] [phone] documented in this encounter Visit Diagnoses Not on filedocumented in this encounter Care Teams Laboratory Animal Facility Supervisor Relationship Specialty Start Date End Date Pcp, No [address] [place] [address] PCP - General 12/02/20 02/08/23 Oren Pressley MD [address] [place] [address] PCP - General Internal Medicine 02/09/23 Sima Trejo MD [address] [address] Medical Oncologist Hematology and Oncology 08/02/23 documented as of this encounter
--- OUTSIDE RECORDS SUMMARY | 2024-10-17 12:51 | XMS_ITS | Clinical Summary ---
Author Organization [employer] ([place], [place], [place], [place]) Address [address] [place] [address] Care Team Providers Care Professional Healthcare Representative Name Role Phone Oren Pressley MD Primary Care Provider [phone] Allergies No known active allergies Medications clonazePAM (KlonoPIN) 0.5 MG tablet Take 1 tablet (0.5 mg total) by mouth every evening. Active cyanocobalamin (VITAMIN B-12) 1,000 mcg/mL injection Inject 1 mL (1,000 mcg total) intramuscularly once every 2 weeks. Activ e ergocalciferol (ERGOCALCIFERO L) 1,250 mcg (50,000 unit) capsule Take 1 capsule (50,000 Units total) by mouth once a week. Active losartan (COZAAR) 100 MG tablet Take 1 tablet (100 mg total) by mouth daily. Active metoprolol succinate 50 mg CSpX Take 50 mg by mouth 2 (two) times daily. Active omeprazole (PriLOSEC) 40 MG capsule Take 1 capsule (40 mg total) by mouth daily. Active PARoxetine (PAXIL) 40 MG tablet Take 1 tablet (40 mg total) by mouth every morning. Active rosuvastatin (CRESTOR) 5 MG tablet Take 1 tablet (5 mg total) by mouth daily. Active warfarin (COUMADIN, JANTOVEN) 5 MG tablet Take 1 tablet (5 mg total) by mouth as directed and Wednesday 5 mg and 2.5 mg rest of week. Active diazePAM (VALIUM) 5 MG tablet Take 1 tablet (5 mg total) by mouth as directed Took twice this am. Active Social History Tobacco Use Types Packs/Day Years Used Date Smoking Tobacco: Former Cigarettes Smokeless Tobacco: Never Tobacco Cessation:Counseling Given: Not Answered Comments:Quit 1989 1 ppd for 15 years Food Insecurity Answer Date Recorded Food run out past 12 months Not on file 04/19 Food did not last past 12 months Not on file 04/30/2023 Employment Answer Date Recorded Help finding and keeping a job Not on file 0 04/30/2023 Family and Community Support Answer Jona e Recorded Help with Day to Day Activities Not on file 04/30/2023 Feeling Lonely or Isolated Not on file 04/30 Educational Attainment Answer Date [place] Speak language other than Green[place] at home Not on file 04/30/2023 Want help with school or training Not on file 04/30/2023 Substance Use Answer Date Recorded Used prescription meds for non-medical reasons N ot on file 04/30/2023 Used illegal drugs past 12 months Not on file 04/30/2023 Comments No Sex and Gender Information Value Date Recorded Sex Assigned at Not on file Legal Sex Female 4:44 PM CDT Gender Identity Not on file Sexual Orientation Not on file Last Filed Vital Signs Vital Sign Reading Time Taken Comments Blood Pressure 162/67 05/24/2023 11:05 AM EST Pulse 64 05/24/2023 11:15 AM EST Temperature 36.5 C (97.7 F) 05/24/2023 7:56 AM EST Respiratory Rate 9 05/24/2023 9:11 AM EST Oxygen Saturation 94% 05/24/2023 11:15 AM EST Inhaled Oxygen Concentration - - Weight 98.9 kg (218 lb) 05/24/2023 7:56 AM EST Height 152.4 cm (5') 05/24/2023 7:56 AM EST Body Mass Index 42.58 05/24/2023 7:56 AM EST Plan of Treatment Health Maintenance Due Date Last Done Comments DXA SCAN 1945 Depression Screening (12+) 1957 DTAP/TDAP/TD VACCINES (1 - Tdap) 08/18/1962 Medicare Initial AWV G0438 08/18/2009 Shingles Vaccine (Zoster) (2 of 2) 01/18/20172016 Respiratory Syncytial Virus (RSV) Adult or (1 - 1-dose 75+ series) 08/18/2018 Pneumococcal 50+ years (2 of 2 - PPSV23) 10/28/2018 10/28/2017 COVID-19 VACCINE (5 - 2024-2 5 season) 2023 03/16/2023, 01/08/2021, 06/28/2020, Additional history exists Falls Risk Screening 04/19/2024 Tobacco Cessation Counseling and Screening (12+) 04/22/2024 04/22/2023 Influenza Vaccine (Season Ended) 2024 03/16/2023, 01/01/2022, 01/10/2020, Additional history exists Insurance MEDICARE PART A B Care Teams Professional Healthcare Representative Relationship Specialty Start Date End Date Oren Pressley MD [address] [place] [address] [place] [address] PCP - General Adolescent Medicine 05/17/23
--- OUTSIDE RECORDS SUMMARY | 2024-10-17 12:51 | XMS_ITS | Encounter Summary ---
Author Organization Healthcare Address [address] [place] [address] Care Team Providers Care Sole Stainer Name Role Phone Pcp, No Primary Care Provider Oren Hull MD Primary Care Provider [phone] Sima Trejo MD Unavailable [phone] Encounter Details Date Type Department Care Team (Late st Contact Info) Description 12/02/2020 Orders Only [facility] [place] [address] Sima Trejo MD [address] [address] Social History Tobacco Use Types [...] Description 11/07/2024 1:15 PM EDT Office Visit [facility] at [facility] [place] [address] 11/07/2024 2:15 PM EDT Office Visit [facility] at [facility] [place] [address] Sima Trejo MD [address] [place] [address] [address] [phone] (work) documented as of this encounter Procedures Procedure Name Priority Date/Time Associated Diagnosis Comments COMPREHENSIVE METABOLIC PANEL, PLASMA Routine 12/02/2020 12:56 PM EDT documented in this encounter Results * (ABNORMAL) Comprehensive Metabolic Panel, Plasma (12/02/2020 12:56 PM EDT) External Glucose 101(H) 74 - 100 mg/dL [facility] External BUN 15 6 - 20 mg/dL [facility] External Creatinine Blood 1.37(H) 0.50 - 0.95 mg/dL [facility] External BUN/Creat Ratio 11 10 - 20 (calc) [facility] External Sodium 133(L) 136 - 145 mmol/L [facility] External Potassium 4.4 3.4 - 5.0 mmol/L [facility] External Chloride 96(L) 98 - 107 mmol/L [facility] External Carbon Dioxide 22 22 - 31 mmol/L [facility] External Anion Gap (AG) 15 7 - 25 (calc) [facility] External Calcium 9.2 8.6 - 10.2 mg/dL [facility] External Total Protein 7.0 6.4 - 8.3 g/dL [facility] External Albumin 4.2 3.5 - 5.2 g/dL [facility] External Globulin 2.8 1.5 - 4.5 g/dL (calc) [facility] External Albumin/Globulin Ratio 1.5 1.1 - 2.5 (calc) [facility] External Bilirubin Total 0.6 0.1 - 1.2 mg/dL [facility] External Alkaline Phosphatase 59 35 - 106 U/L [facility] External AST (SGOT) 20 0 - 32 U/L [facility] External ALT (SGPT) 13 0 - 33 U/L [facility] External EGFR (If AFR/AM) 43(A) >=60 [facility] External Estimated GFR 37(A) >=60 [facility] Comment: NOTE Chronic kidney disease is defined as kidney damage for more than 3 months or a GFR less than 60 mL/min/1.73 m2 for greater than 3 months. This calculation has not been validated in women. For pediatric patients refer to National Kidney Foundation https://www.kidney.org/professionals/KDOQI/gfr_calculatorPed 12/02/2020 12:5 6 PM EDT 12/02/2020 1:26 PM EDT Sima Trejo MD LAB BLOOD ORDERABLES Final Re sult [facility] [address] [place] [address], documented in this encounter Visit Diagnoses Not on filedocumented in this encounter Care Teams Sole Stainer Relationship Specialty Start Date End Date Pcp, No [address] [place] [address] PCP - General 12/02/20 02/08/23 Oren Pressley MD [address] [place] [address] PCP - General Internal Medicine 02/09/23 Sima Trejo MD [address] [facility] [address] [place] [address] Medical Oncologist Hematology and Oncology 08/02/23 documented as of this encounter
--- OUTSIDE RECORDS SUMMARY | 2024-10-17 12:51 | XMS_ITS | Encounter Summary ---
Author Organization [employer] ([place], [place], [place]) Address [address] [place] [address] Care Team Providers Care Business Continuity Analyst Name Role Phone Oren Pressley MD Primary Care Provider [phone] Encounter Details Date Type Department Care Team (Late st Contact Info) Description 06/22/2019 Transcribed Document [facility] [place] [facility] [place] [address] ProviderLaurel MD [address] [place] [id number] Social History Tobacco Use Types Packs/Day Years Used Date Smoking Tobacco: Never Assessed Comments Unknown Sex and Gender Information Value Date Recorded Sex Assigned at Not on file Legal Sex Female 4:44 PM CDT Gender Identity Not on file Sexual Orientation Not on file documented as of this encounter Miscellaneous Notes * Cerner Conversion Note - Laurel Mayer MD - 06/22/2019 11:50 AM EXECUTIVE ADVISOR DATE OF PROCEDURE: 06/22/2019 DC CARDIOVERSION SURGEON: Yasmany Vazquez MD PRIMARY CARE PHYSICIAN: . PROCEDURE PERFORMED: Direct current cardioversion. INDICATION: Atrial fibrillation. DESCRIPTION OF PROCEDURE: After having obtained written consent, the patient was brought to procedure lab in a fasting condition. EKG and telemetry strips confirmed presence of atrial fibrillation. The patient was given Versed and fentanyl for conscious sedation. She was initially cardioverted at 150 joules, which was unsuccessful. She was then cardioverted a second time at 200 joules biphasic synchronized current, which successfully cardioverted her to normal sinus rhythm. She tolerated the procedure well with no complications. The patient will be started on flecainide 50 mg twice a day and will follow up with TIFFANIE Morin in 1 to 2 weeks. Successful DC cardioversion achieving normal sinus rhythm. /[id number] Yasmany Vazquez MD SR/AQ / SR / MODL /[id number] Electronically signed by Robb, [facility] Conversion Trade Sales Assistant Cerner at 08/07/2022 2:12 PM CDT documented in this encounter Plan of Treatment Not on file documented as of this encounter Visit Diagnoses Not on filedocumented in this encounter Care Teams Business Continuity Analyst Relationship Specialty Start Date End Date Oren Pressley MD [address] [place] [address] [place] [address] PCP - General Adolescent Medicine 05/17/23 documented as of this encounter
--- OUTSIDE RECORDS SUMMARY | 2024-10-17 12:51 | XMS_ITS | Encounter Summary ---
Author Organization [employer] ([place], [place], [place], [place]) Address [address] [place] [address] Care Team Providers Care Rn Camp Name Role Phone Oren Pressley MD Primary Care Provider [phone] Encounter Details Date Type Department Care Team (Late st Contact Info) Description 05/16/2018 Transcribed Document [facility] [place] [facility] [place] [address] ProviderLaurel MD [address] [place] [address] [id number] Social History Tobacco Use Types Packs/Day Years Used Date Smoking Tobacco: Never Assessed Comments Unknown Sex and Gender Information Value Date Recorded Sex Assigned at Not on file Legal Sex Female 4:44 PM CDT Gender Identity Not on file Sexual Orientation Not on file documented as of this encounter Miscellaneous Notes * Cerner Conversion Note - Laurel Mayer MD - 05/16/2018 12:04 PM [employer]IS[employer] NETWORK ENGINEER Patient Education Materials Follows:Medicine Electrical Cardioversion, Care After This sheet gives you information about how to care for yourself after your procedure. Your health care provider may also give you more specific instructions. If you have problems or questions, contact your health care provider. What can I expect after the procedure? After the procedure, it is common to have: ??? Some redness on the skin where the shocks were given. Follow these instructions at home: ??? Do notdrive for 24 hours if you were given a medicine to help you relax (sedative). ??? Take nubt-xwj-rtykfyr and prescription medicines only as told by your health care provider. ??? Ask your health care provider how to check your pulse. Check it often. ??? Rest for 48 hours after the procedure or as told by your health care provider. ??? Avoid or limit your caffeine use as told by your health care provider. Contact a health care provider if: ??? You feel like your heart is beating too quickly or your pulse is not regular. ??? You have a serious muscle cramp that does not go away. Get help right away if: ??? You have discomfort in your chest. ??? You are dizzy or you feel faint. ??? You have trouble breathing or you are short of breath. ??? Your speech is slurred. ??? You have trouble moving an arm or leg on one side of your body. ??? Your fingers or toes turn cold or blue. This information is not intended to replace advice given to you by your health care provider. Make sure you discuss any questions you have with your health care provider. Document Released: 01/24/2014 Document Revised: 11/06/2016 Document Reviewed: 10/09/2016 [employer] Interactive Patient Education ? 2017 [employer]. Pharmacology Moderate Conscious Sedation, Adult, Care After These instructions provide you with information about caring for yourself after your procedure. Your health care provider may also give you more specific instructions. Your treatment has been planned according to current medical practices, but problems sometimes occur. Call your health care provider if you have any problems or questions after your procedure. What can I expect after the procedure? After your procedure, it is common: ??? To feel sleepy for several hours. ??? To feel clumsy and have poor balance for several hours. ??? To have poor judgment for several hours. ??? To vomit if you eat too soon. Follow these instructions at home: For at least 24 hours after the procedure: ??? Do not: ? Participate in activities where you could fall or become injured. ? Drive. ? Use heavy machinery. ? Drink alcohol. ? Take sleeping pills or medicines that cause drowsiness. ? Make important decisions or sign legal documents. ? Take care of children on your own. ??? Rest. Eating and drinking ??? Follow the diet recommended by your health care provider. ??? If you vomit: ? Drink water, juice, or soup when you can drink without vomiting. ? Make sure you have little or no nausea before eating solid foods. General instructions ??? Have a responsible adult stay with you until you are awake and alert. ??? Take avqe-njy-tqvuetb and prescription medicines only as told by your health care provider. ??? If you smoke, do not smoke without supervision. ??? Keep all follow-up visits as told by your health care provider. This is important. Contact a health care provider if: ??? You keep feeling nauseous or you keep vomiting. ??? You feel light-headed. ??? You develop a rash. ??? You have a fever. Get help right away if: ??? You have trouble breathing. This information is not intended to replace advice given to you by your health care provider. Make sure you discuss any questions you have with your health care provider. Document Released: 01/24/2014 Document Revised: 09/07/2016 Document Reviewed: 07/25/2016 [employer] Interactive Patient Education ? 2017 [employer] documented in this encounter Plan of Treatment Not on file documented as of this encounter Visit Diagnoses Not on filedocumented in this encounter Care Teams Rn Camp Relationship Specialty Start Date End Date Oren Pressley MD [address] [place] [address] PCP - General Adolescent Medicine 05/17/23 documented as of this encounter
--- OUTSIDE RECORDS SUMMARY | 2024-10-17 12:51 | XMS_ITS | Encounter Summary ---
Author Organization Healthcare Address [address] [place] [address] Care Team Providers Care Blacking Wheel Tender Name Role Phone Oren Pressley MD Primary Care Provider [phone] Sima Trejo MD Unavailable [phone] Encounter Details Date Type Department Care Team (Late Contact Info) Description 09/19/2024 Orders Only [facility] at [address] [place] [address] Sima Trejo MD [address] [place] [address] History of non-Hodgkin's lymphoma Social History Tobacco Use Types Packs/Day Years Used Date Smoking Tobacco: Former Cigarettes Passive Smoke Exposure: Never Smokeless Tobacco: Former Comments:Quit 50 years ago. Alcohol Use Standard Drinks/Week Comments Never 0 (1 standard drink = 0.6 oz pur e alcohol) Comments Unknown Sex and Gender Information Value Date Recorded Sex Assigned at Not on file Legal Sex Female 8:16 PM EDT Gender Identity Not on file Sexual Orientation Not on file documented as of this encounter Plan of Treatment Upcoming Encounters Date Type Department Care Team (Late st Contact Info) Description 11/07/2024 1:15 PM EDT Office Visit [facility] at [facility] [address] [place] [address] 11/07/2024 2:15 PM EDT Office Visit [facility] at [address] [address] Sima Trejo MD [address] [place] [address] documented as of this encounter Visit Diagnoses Diagnosis History of non-Hodgkin's lymphoma Personal history of other lymphatic and hematopoietic neoplasm documented in this encounter Additional Health Concerns Assessment Noted Time A fall risk assessment has been complete d for the patient 08/08/2024 2:12 PM EDT documented as of this encounter Care Teams Blacking Wheel Tender Relationship Specialty Start Date End Date Oren Pressley MD [address] [place] [address] PCP - General Internal Medicine 02/09/23 Sima Trejo MD [address] [place] [id number] Medical Oncologist Hematology and Oncology 08/02/23 documented as of this encounter
--- OUTSIDE RECORDS SUMMARY | 2024-10-17 12:51 | XMS_ITS | Encounter Summary ---
Author Organization Healthcare Address [address] [place] [address] Care Team Providers Care Hotel Dining Room Cashier Name Role Phone Pcp, No Primary Care Provider Oren Hull MD Primary Care Provider [phone] Sima Trejo MD Unavailable [phone] Encounter Details Date Type Department Care Team (Late st Contact Info) Description 03/31/2021 Orders Only [facility] [address] [place] [address] Sima Trejo MD [address] [address] Social History Tobacco Use Types [...] Description 11/07/2024 1:15 PM EDT Office Visit [facility] [address] [place] [address] 11/07/2024 2:15 PM EDT Office Visit [facility] at [address] [place] [address] Sima Trejo MD [address] [place] [address] [address] [phone] (work) documented as of this encounter Procedures Procedure Name Priority Date/Time Associated Diagnosis Comments COMPREHENSIVE METABOLIC PANEL, PLASMA Routine 03/31/2021 12:13 PM EST documented in this encounter Results * (ABNORMAL) Comprehensive Metabolic Panel, Plasma (03/31/2021 12:13 PM EST) External Glucose 113(H) 74 - 100 mg/dL [facility] External BUN 41(H) 6 - 20 mg/dL [facility] External Creatinine Blood 1.91(H) 0.50 - 0.95 mg/dL [facility] External BUN/Creat Ratio 21(H) 10 - 20 (calc) [facility] External Sodium 136 136 - 145 mmol/L [facility] External Potassium 4.9 3.4 - 5.0 mmol/L [facility] External Chloride 99 98 - 107 mmol/L [facility] External Carbon Dioxide 26 22 - 31 mmol/L [facility] External Anion Gap (AG) 11 7 - 25 (calc) [facility] External Calcium 9.3 8.6 - 10.2 mg/dL [facility] External Total Protein 6.7 6.4 - 8.3 g/dL [facility] External Albumin 4.4 3.5 - 5.2 g/dL [facility] External Globulin 2.3 1.5 - 4.5 g/dL (calc) [facility] External Albumin/Globulin Ratio 1.9 1.1 - 2.5 (calc) [facility] External Bilirubin Total 0.4 0.1 - 1.2 mg/dL [facility] External Alkaline Phosphatase 54 30 - 121 U/L [facility] External AST (SGOT) 15 0 - 32 U/L [facility] External ALT (SGPT) 12 0 - 33 U/L [facility] External EGFR (If AFR/AM) 29(A) >=60 [facility] External Estimated GFR 25(A) >=60 [facility] Comment: NOTE Chronic kidney disease is defined as kidney damage for more than 3 months or a GFR less than 60 mL/min/1.73 m2 for greater than 3 months. This calculation has not been validated in women. For pediatric patients refer to National Kidney Foundation https://www.kidney.org/professionals/KDOQI/gfr_calculatorPed 03/31/2021 12:1 3 PM EST 03/31/2021 1:17 PM EST Sima Trejo MD LAB BLOOD ORDERABLES Final Re sult [facility] [address] [place] [address], documented in this encounter Visit Diagnoses Not on filedocumented in this encounter Care Teams Hotel Dining Room Cashier Relationship Specialty Start Date End Date Pcp, No [address] [place] [address] PCP - General 12/02/20 02/08/23 Oren Pressley MD [address] [place] [address] PCP - General Internal Medicine 02/09/23 Sima Trejo MD [address] [address] Medical Oncologist Hematology and Oncology 08/02/23 documented as of this encounter
--- OUTSIDE RECORDS SUMMARY | 2024-10-17 12:51 | XMS_ITS | Encounter Summary ---
Author Organization [employer] ([place], [place], [place], [place]) Address [address] [place] [address] Care Team Providers Care Loan Supervisor Name Role Phone Oren Corbin MD Primary Care Provider + [phone] Encounter Details Date Type Department Care Team (Late st Contact Info) Description 06/22/2019 Transcribed Document [facility] [place] Family [facility] [place] [address] ProviderLaurel MD [address] [place] [address] Social History Tobacco Use Types Packs/Day Years Used Date Smoking Tobacco: Never Assessed Comments Unknown Sex and Gender Information Value Date Recorded Sex Assigned at Not on file Legal Sex Female 4:44 PM CDT Gender Identity Not on file Sexual Orientation Not on file documented as of this encounter Miscellaneous Notes * Cerner Conversion Note - Laurel ProviderMD - 06/22/2019 12:[address] CLERK [facility] [place] [address] EFRAIN IVERSON [facility] :1945 Visit Time:06/22/2019 Your Visit Summary Your Care Team Admitting Physician - TAMIKO NIETO MD-CAR Attending Physician - TAMIKO NIETO MD-CAR Primary Care Physician - OREN CORBIN (REF)DELILAH Referring Physician - TAMIKO NIETO MD-CAR Your Diagnosis Atrial fibrillation Paroxysmal atrial fibrillation, Paroxysmal atrial fibrillation Discharge Vitals Temperature 36.3 ??C Heart Rate (Monitored) 58 Respiratory Rate 11 Blood Pressure 140/68 What to do next Instructions From Your Care Team Diet after Discharge: Heart Healthy diet Activity after Discharge: _, Rest and relax today, _ Driving after Discharge: Do not drive for 24 hours Showering/Bathing: May shower after 24 hours, _ Notify Provider of: Complications : Follow-Up Appointments Follow Up with GIOVANNI SHAH When Comments Appointment has been made for July 05, at 9:00 am Where: [address] [facility] [place] [id number]- Business (1) Warfarin Instructions Indication for Warfarin Anticoagulation: Atrial fibrillation Warfarin Anticoagulation Disposition: Continuation of pre-hospital treatment Notify Provider of Signs/Symptoms of: Significant bleeding, Clot Medications What How Much When Instructions Next Dose flecainide (flecainide 100 mg oral tablet) 0.5 Tablet(s) Oral Two Times A Day 8 pm 06/22/2019 buPROPion (buPROPion 150 mg/ 24 hours (XL) oral tablet, extended release) Oral Interval Every 24 Hours cholecalciferol (Vitamin D3) clonazePAM (KlonoPIN 0.5 mg oral tablet) Oral At Bedtime furosemide (Lasix 20 mg oral tablet) Oral Every Day ibrutinib (Imbruvica 280 mg oral tablet) 1 Tablet(s) Oral Every Day metoprolol (metoprolol succinate) 100 Oral Every Day PARoxetine (PARoxetine 40 mg oral tablet) Oral Every Day rosuvastatin (rosuvastatin 5 mg oral tablet) 1 Tablet(s) Oral Every Day warfarin (warfarin 2.5 mg oral tablet) Oral Every Day Mon, Wed 06/22/2019 warfarin (warfarin 5 mg oral tablet) See instructions 0.5 Tab Oral Daily 06/22/2019 Please supervisor opening and picking your prescription for flecinide and start it tonight. Please take your warfarin tonight. Take your medications faithfully. Do NOT skip medication. Do NOT stop taking medications without the direction of a physician. Carry a list of your medications with you at all times, and take this medication list with you to your first follow up visit. Report any side effects. Avoid herbal remedies unless discussed with your physician. As part of your treatment plan, your physician may have prescribed a limited course of a controlled substance. This medication may be given to help people with moderate or severe pain or for other medical conditions, but there are risks involved with treatment. Common side effects may include nausea, constipation, drowsiness, sweating, itching, dry mouth, and rash. More serious side effects may include cognitive and motor impairment, like problems with thinking, concentrating, alertness, and movement (e.g. slowed reflexes), and driving and operating heavy machinery can be dangerous. It is important for you to talk to your physician if you have these side effects or questions. These controlled substances can produce physical dependence and be habit-forming if taken for an extended period of time, which means that the body has gotten used to them and may experience withdrawal symptoms if they are abruptly stopped. Withdrawal symptoms can include runny nose, sweating, goose bumps, diarrhea, abdominal cramping, rapid heartbeat, difficulty sleeping, and nervousness. Please dispose of unused and medications per your retail pharmacy guidance. Allergies statins Immunizations This Visit No Immunizations Found Stroke/TIA Instructions Individualized Stroke Risk Factors Individualized Stroke Risk Factors *Q: Atrial fibrillation, High cholesterol, Hypertension/High blood pressure, Obesity, Physical inactivity Stroke/TIA Signs/Symptoms to Report Immediately: Sudden onset difficulty speaking, Sudden onset difficulty understanding speech, Sudden onset change in vision, Sudden onset weakness particulary on one side of the body, Sudden onset numbness/tingling, Sudden severe headache, Sudden dizziness or trouble with gait, Call : EMS activation is crucial Mutually Agreed Upon Goals My LDL Level: My LDL Level: Education Materials Electrical Cardioversion, Care After This sheet gives [...] Follow these instructions at home: ??? Do not drive for 24 hours if you were given a medicine to help you relax (sedative). ??? Take kjri-lxd-bcqhuze and prescription medicines only as told by [...] 01/24/2014 Document Revised: 11/06/2016 Document Reviewed: 10/09/2016 [employer] Interactive Patient Education ?? 2019 [employer] Moderate Conscious Sedation, Adult, Care After These [...] you are awake and alert. ??? Take jhgy-pow-ihhpmqg and prescription medicines only as told by [...] 01/24/2014 Document Revised: 09/07/2016 Document Reviewed: 07/25/2016 [employer] Interactive Patient Education ?? 2019 [employer]. flecainide (FLEK a nide) Isaiah What is the most important information I should know about flecainide? You should not use this medicine if you have a serious heart condition such as bundle branch block or AV block (without a pacemaker), or if your heart cannot pump blood properly. You may receive your first dose in a hospital or clinic setting to quickly treat any serious side effects. What is flecainide? Flecainide is a Class IC anti-arrhythmic that is used in certain situations to prevent serious heart rhythm disorders. Flecainide may also be used for purposes not listed in this medication guide. What should I discuss with my healthcare provider before taking flecainide? You should not use flecainide if you are allergic to it, or if: ?? you have a serious heart condition such as bundle branch block or AV block (unless you have a pacemaker); or ?? your heart cannot pump blood properly. Tell your doctor if you have ever had: ?? a heart attack; ?? chronic atrial fibrillation, or 'AFib'; ?? congestive heart failure; ?? a heart condition called 'sick sinus syndrome'; ?? an electrolyte imbalance (such as low levels of potassium or magnesium in your blood); or ?? liver disease. It is not known whether this medicine will harm an unborn baby. Tell your doctor if you are or plan to become . It may not be safe to breast-feed while using this medicine. Ask your doctor about any risk. How should I take flecainide? Follow all directions on your prescription label and read all medication guides or instruction sheets. Your doctor may occasionally change your dose. Use the medicine exactly as directed. You may receive your first few doses in a hospital or clinic setting to quickly treat any serious side effects. Your heart rate will be monitored using an electrocardiograph or ECG (sometimes called an EKG). This will help your doctor determine how long to treat you with flecainide. You may also need frequent blood tests to check your liver or kidney function. Store at room temperature away from moisture, heat, and light. What happens if I miss a dose? Take the medicine as soon as you can, but skip the missed dose if it is almost time for your next dose. Do not take two doses at one time. What happens if I overdose? Seek emergency medical attention or call the Poison Help line at . Overdose symptoms may include nausea, vomiting, slow heart rate, fainting, or seizure (convulsions). What should I avoid while taking flecainide? Follow your doctor's instructions about any restrictions on food, beverages, or activity. What are the possible side effects of flecainide? Get emergency medical help if you have signs of an allergic reaction: hives; difficulty breathing; swelling of your face, lips, tongue, or throat. Call your doctor at once if you have: ?? fast or pounding heartbeats; ?? fluttering in your chest, shortness of breath, and sudden dizziness (like you might pass out); ?? slow heart rate, weak pulse, slow breathing (breathing may stop); ?? feeling short of breath; ?? swelling, rapid weight gain; ?? pale skin, easy bruising or bleeding, unusual weakness; ?? fever, flu-like symptoms; or ?? jaundice (yellowing of the skin or eyes). Common side effects may include: ?? dizziness; ?? vision problems; ?? trouble breathing; ?? headache; ?? nausea; or ?? feeling weak or tired. This is not a complete list of side effects and others may occur. Call your doctor for medical advice about side effects. You may report side effects to FDA at 4-154-KIG-2644. What other drugs will affect flecainide? Tell your doctor about all your other medicines, especially: ?? digoxin; ?? a diuretic or 'water pill'; ?? a beta-mari (atenolol, metoprolol, propranolol, sotalol, and others); ?? other heart medications such as amiodarone, diltiazem, disopyramide, nifedipine, quinidine, or verapamil; or ?? seizure medication. This list is not complete. Other drugs may affect flecainide, including prescription and pyxo-shs-qmjvcrc medicines, vitamins, and herbal products. Not all possible drug interactions are listed here. Where can I get more information? Your pharmacist can provide more information about flecainide. Remember, keep this and all other medicines out of the reach of children, never share your medicines with others, and use this medication only for the indication prescribed. Every effort has been made to ensure that the information provided by [employer]. ('[employer]') is accurate, up-to-date, and complete, but no guarantee is made to that effect. Drug information contained herein may be time sensitive. [employer] information has been compiled for use by healthcare practitioners and consumers in the [place] and therefore [employer] does not warrant that uses outside of the [place] are appropriate, unless specifically indicated otherwise. [employer] drug information does not endorse drugs, diagnose patients or recommend therapy. [employer] drug information is an informational resource designed to assist licensed healthcare practitioners in caring for their patients and/or to serve consumers viewing this service as a supplement to, and not a substitute for, the expertise, skill, knowledge and judgment of healthcare practitioners. The absence of a warning for a given drug or drug combination in no way should be construed to indicate that the drug or drug combination is safe, effective or appropriate for any given patient. [employer] does not assume any responsibility for any aspect of healthcare administered with the aid of information [employer] provides. The information contained herein is not intended to cover all possible uses, directions, precautions, warnings, drug interactions, allergic reactions, or adverse effects. If you have questions about the drugs you are taking, check with your doctor, nurse or pharmacist. Copyright [id number] [employer]. Version: 4.01. Revision Date: 05/03/2018. Emergency Awareness and Preventative Care STROKE is an EMERGENCY Every Minute Counts Act FAST and Check for these signs: FACE Does the face look uneven? ARM Does one arm drift down? SPEECH Does their speech sound strange? TIME Call 9-1-1 at any sign of stroke Stroke Risk Factors Atrial Fibrillation (irregular heartbeat) Diabetes Family history of stroke Heart Disease Heavy alcohol use High Blood Pressure High Cholesterol Physical inactivity and obesity Smoking Cigarette Smoking The facts are clear, cigarette smoking will shorten your life. Smoking can cause many illnesses along the way. As a healthcare provider, we recommend that you stop smoking. Assistance with quitting is available by contacting 6-975-IFOJNOW. This is a free resource providing counseling, support, and referral. Or you may contact your personal physician. [place] Suicide Prevention Lifeline: The National Suicide Prevention Lifeline is a national network of local crisis centers that provides free and confidential emotional support to people in suicidal crisis or emotional distress 24 hours a day, 7 days a week. Don't Wait! Stop a Heart Attack Before it Starts What is a heart attack? A heart attack is damage or to a part of the heart from severely decreased or lack of blood flow to the heart. Over time, arteries can become narrow from the buildup of fat and cholesterol, which is called plaque. The plaque can rupture causing a blood clot to form. When the blood clot forms, the artery can become severely narrowed or completely blocked, causing a heart attack. Heart attack is the leading cause of in the [place]. 85% of muscle damage occurs within the first 2 hours. Delay in the recognition of heart attack symptoms increases the chances of . Know the early symptoms of a heart attack: Nausea Feeling of fullness in chest Jaw Pain Pain that travels down one or both arms Fatigue/being tired Anxiety Back Pain Chest pressure, squeezing, or discomfort Shortness of breath Sweating, or a cold sweat Feeling of impending doom There are unusual signs of a heart attack, too! Women, the elderly, and diabetics may present with atypical symptoms: Fainting/dizziness Weakness Confusion Risk Factors for a Heart Attack Some heart disease risk factors, such as age and family history, cannot be changed. Others, like smoking and lack of exercise, can be changed. Smoking High Cholesterol High Blood Pressure Family History Obesity Age Gender (Males are at higher risk) Lack of Exercise Diabetes Diet Stress Excessive Alcohol Intake If you or someone you know is experiencing the signs and symptoms of a heart attack, DON???T DELAY. Call immediately and seek help. If someone collapses, perform CPR! Do not attempt to drive if you are having symptoms of heart attack. Hands-Only CPR Why Hands-Only CPR? Hands-Only CPR has been shown to be as effective as conventional CPR for cardiac arrests that occur outside of a hospital. Survival depends on immediately receiving CPR from someone nearby. How do you perform Hands-Only CPR? There are two easy steps: Call 9-1-1 if you see a teen or adult collapse Push hard and fast in the center of the chest at a beat of 100 beats per minute. Save a life! 4 WAYS TO GET AHEAD OF SEPSIS SEPSIS is a MEDICAL EMERGENCY. Time matters! Infections put you and your family at risk for a life-threatening condition called sepsis. Sepsis is the body's extreme response to an infection. It is life-threatening, and without timely treatment, sepsis can rapidly lead to tissue damage, organ failure, and . Sepsis happens when an infection you already have-in your skin, lungs, urinary tract or somewhere else-triggers a chain reaction throughout your body. 1 PREVENT INFECTIONS Take good care of chronic conditions. Talk to your doctor about getting the recommended vaccines. 2 PRACTICE GOOD HYGIENE Wash your hands frequently. Keep cuts or open sores clean and covered until they are healed. 3 KNOW THE SYMPTOMS Confusion or disorientation Shortness of breath High heart rate Fever, shivering, or feeling very cold Extreme pain or discomfort Clammy or sweaty skin 4 ACT FAST Get medical care IMMEDIATELY if you suspect sepsis or if you have an infection that is not getting better or is getting worse. To learn more about sepsis and how to prevent infections, visit www.cdc.gov/sepsis. Test Results Laboratory or Other Results This Visit (last charted value for your 06/22/2019 visit) General Chemistry 06/22/2019 9:29 AM Potassium Level: 4.5 mmol/L -- Normal range between ( 3.5 and 5.1 ) Patient Name:EFRAIN IVERSON HONEY I have received and understand this information and was given the opportunity to ask questions. Patient/Reel Blade Bender Furnace Tender Name: Patient/Reel Blade Bender Furnace Tender Signature: Relationship to Patient: Clinician/Hospital Reel Blade Bender Furnace Tender Signature: Date: Electronically signed by [facility], [facility] Conversion Dough Cutting Machine Operator Cerner at 08/07/2022 2:20 PM CDT documented in this encounter Plan of Treatment Not on file documented as of this encounter Visit Diagnoses Not on filedocumented in this encounter Care Teams Loan Supervisor Relationship Specialty Start Date End Date Oren Corbin MD [address] [place] [address] PCP - General Adolescent Medicine 05/17/23 documented as of this encounter
--- OUTSIDE RECORDS SUMMARY | 2024-10-17 12:51 | XMS_ITS | Encounter Summary ---
Author Organization [employer] ([place], [place], [place], [place]) Address [address] [place] [address] Care Team Providers Care Seamer Panty Hose Name Role Phone Oren Pressley MD Primary Care Provider [phone] Encounter Details Date Type Department Care Team (Late st Contact Info) Description 05/16/2018 Transcribed Document [facility] [place] [facility] [place] [address] ProviderLaurel MD [address] [place] [id number] Social History Tobacco Use Types Packs/Day Years Used Date Smoking Tobacco: Never Assessed Comments Unknown Sex and Gender Information Value Date Recorded Sex Assigned at Not on file Legal Sex Female 4:44 PM CDT Gender Identity Not on file Sexual Orientation Not on file documented as of this encounter Miscellaneous Notes * Cerner Conversion Note - Historical ProviderMD - 05/16/2018 10:15 AM APPRENTICE PAINTER NECKTIES Event Note Entered On: 05/16/2018 10:25 EST Performed On: 05/16/2018 10:15 EST by KASSIDY SAWYER RN Event Note Event Date/Time : 05/16/2018 10:15 EST Description of Event : Return from procedure lab per stretcher awake and alert, skin w/d, no c/o, family here at bedside. Food and drink ordered. KASSIDY SAWYER RN - 05/16/2018 10:25 EST Electronically signed by [facility] Conversion Direct Selling Counselor Cerner at 08/07/2022 2:29 PM CDT documented in this encounter Plan of Treatment Not on file documented as of this encounter Visit Diagnoses Not on filedocumented in this encounter Care Teams Seamer Panty Hose Relationship Specialty Start Date End Date Oren Pressley MD [address] [place] [address] PCP - General Adolescent Medicine 05/17/23 documented as of this encounter
--- OUTSIDE RECORDS SUMMARY | 2024-10-17 12:51 | XMS_ITS | Encounter Summary ---
Author Organization Healthcare Address [address] [place] [address] Care Team Providers Care Real Estate Services Administrator Name Role Phone Pcp, No Primary Care Provider Oren Hull MD Primary Care Provider Sima Trejo MD Unavailable [phone] Encounter Details Date Type Department Care Team (Late st Contact Info) Description 03/31/2021 Orders Only [facility] [address] [place] [address] Sima Trejo MD [address] [address] Social History Tobacco Use Types [...] Description 11/07/2024 1:15 PM EDT Office Visit [facility] [address] [place] [address] 11/07/2024 2:15 PM EDT Office Visit [facility] [address] [place] [address] Sima Trejo MD [address] [address] [phone] (work) documented as of this encounter Procedures Procedure Name Priority Date/Time Associated Diagnosis Comments CBC WITH AUTO DIFFERENTIAL Routine 03/31/2021 12:13 PM EST documented in this encounter Results * (ABNORMAL) CBC and Differential (03/31/2021 12:13 PM EST) External WBC 8.0 3.8 - 10.8 K/uL [facility] External Red Blood Cell (RBC) 4.07 3.80 - 5.20 M/uL [facility] External Hemoglobin 12.1 12.0 - 16.0 G/DL [facility] External Hematocrit 36.2 35.0 - 47.0 % [facility] External MCV 89 80 - 100 fL [facility] External MCH 30 26 - 35 PG [facility] External MCHC 33 32 - 36 G/DL [facility] External RDW 17.5(H) 11.0 - 15.0 % [facility] External Mean Platelet Volume 8.7 6.2 - 10.5 fL [facility] External Platelets 148 130 - 400 K/uL [facility] External Neutrophil# 4.6 1.6 - 8.4 K/uL [facility] External Lymphocyte# 2.6 0.4 - 5.1 K/uL [facility] External Absolute Monocyte (Abs Tensas) 0.6 0.0 - 1.2 K/uL [facility] External Eosinophils# 0.1 0.0 - 0.8 K/uL [facility] External Baso# 0.1 0.0 - 0.3 K/uL [facility] External Neutrophils % 57.9 42.0 - 78.0 % [facility] External Lymphocyte % 32.4 11.0 - 47.0 % [facility] External Monocyte % 8.0 0.0 - 11.0 % [facility] External Eosinophil% 0.8 0.0 - 7.0 % [facility] External Basophil % 0.9 0.0 - 3.0 % [facility] External Nucleated RBC%-Auto 0.0 0.0 - 0.9 % [facility] External Nucleated RBC Absolute 0.00 Not Estab. K/uL [facility] 03/31/2021 12:1 3 PM EST 03/31/2021 1:17 PM EST Sima Trejo MD LAB BLOOD ORDERABLES Final Re sult [facility] [address] [place] [address], documented in this encounter Visit Diagnoses Not on filedocumented in this encounter Care Teams Real Estate Services Administrator Relationship Specialty Start Date End Date Pcp, No [address] [place] [address] PCP - General 12/02/20 02/08/23 Oren Pressley MD [address] [place] [address] PCP - General Internal Medicine 02/09/23 Sima Trejo MD [address] [address] Medical Oncologist Hematology and Oncology 08/02/23 documented as of this encounter
--- OUTSIDE RECORDS SUMMARY | 2024-10-17 12:51 | XMS_ITS | Encounter Summary ---
Author Organization Healthcare Address [address] [place] [address] Care Team Providers Care Hotel Service Manager Name Role Phone Pcp, No Primary Care Provider Oren Hull MD Primary Care Provider [phone] Sima Trejo MD Unavailable [phone] Encounter Details Date Type Department Care Team (Late st Contact Info) Description 05/26/2022 Orders Only [facility] at [facility] [address] [place] [address] Sima Trejo MD [address] [address] Social History Tobacco Use Types [...] Description 11/07/2024 1:15 PM EDT Office Visit [facility] at [facility] [address] [place] [address] 11/07/2024 2:15 PM EDT Office Visit [facility] at [address] [place] [place] [address] Sima Trejo MD [address] [address] [phone] (work) documented as of this encounter Procedures Procedure Name Priority Date/Time Associated Diagnosis Comments COMPREHENSIVE METABOLIC PANEL, PLASMA Routine 05/26/2022 1:07 PM EST documented in this encounter Results * (ABNORMAL) Comprehensive Metabolic Panel, Plasma (05/26/2022 1:07 PM EST) External Glucose 116(H) 74 - 100 mg/dL [facility] External BUN 22(H) 6 - 20 mg/dL [facility] External Creatinine Blood 1.15(H) 0.50 - 0.95 mg/dL [facility] External BUN/Creat Ratio 19 10 - 20 (calc) [facility] External Sodium 140 136 - 145 mmol/L [facility] External Potassium 4.4 3.4 - 5.0 mmol/L [facility] External Chloride 104 98 - 107 mmol/L [facility] External Carbon Dioxide 25 22 - 31 mmol/L [facility] External Anion Gap (AG) 11 7 - 25 (calc) [facility] External Calcium 9.5 8.6 - 10.2 mg/dL [facility] External Total Protein 7.0 6.4 - 8.3 g/dL [facility] External Albumin 4.3 3.5 - 5.2 g/dL [facility] External Globulin 2.7 1.5 - 4.5 g/dL (calc) [facility] External Albumin/Globulin Ratio 1.6 1.1 - 2.5 (calc) [facility] External Bilirubin Total 0.4 0.1 - 1.2 mg/dL [facility] External Alkaline Phosphatase 71 30 - 121 U/L [facility] External AST (SGOT) 18 0 - 32 U/L [facility] External ALT (SGPT) 15 0 - 33 U/L [facility] External Estimated GFR 49(A) >=60 [facility] Comment: NOTE New calculation for GFR (CKD-EPI 2020) is formulated without race adjustment factors at the recommendation of the National Kidney Foundation and [place] [employer]ph[employer]. This calculation has not been validated in women. For pediatric patients refer to https://www.kidney.org/professionals/KDOQI/gfr_calculatorPed 05/26/2022 1:07 PM EST 05/26/2022 1:19 PM EST us Sima Trejo MD LAB BLOOD ORDERABLES Final Re sult [facility] [address] [place] [address], documented in this encounter Visit Diagnoses Not on filedocumented in this encounter Care Teams Hotel Service Manager Relationship Specialty Start Date End Date Pcp, No [address] [place] [address] PCP - General 12/02/20 02/08/23 Oren Pressley MD 1210 [facility] [address] [place] [address] PCP - General Internal Medicine 02/09/23 Sima Trejo MD [address] [address] Medical Oncologist Hematology and Oncology 08/02/23 documented as of this encounter
--- OUTSIDE RECORDS SUMMARY | 2024-10-17 12:51 | XMS_ITS | Encounter Summary ---
Author Organization Healthcare Address [address] [place] [address] Care Team Providers Care Cleaning Machine Operator Name Role Phone Oren Pressley MD Primary Care Provider [phone] Sima Trejo MD Unavailable [phone] Encounter Details Date Type Department Care Team (Late st Contact Info) Description 05/28/2023 OSHA Contract Physicial [facility] at [facility] [address] [place] [address] Dagmar Sewell MD [address] [address] Social History Tobacco Use Types [...] Description 11/07/2024 1:15 PM EDT Office Visit [facility] at [facility] [address] [place] [address] 11/07/2024 2:15 PM EDT Office Visit [facility] at [facility] [address] [place] [address] Sima Trejo MD [address] [place] [address] documented as of this encounter Visit Diagnoses Not on filedocumented in this encounter Care Teams Cleaning Machine Operator Relationship Specialty Start Date End Date Oren Pressley MD [address] [place] [address] PCP - General Internal Medicine 02/09/23 Sima Trejo MD [address] [place] [address] Medical Oncologist Hematology and Oncology 08/02/23 documented as of this encounter
--- OUTSIDE RECORDS SUMMARY | 2024-10-17 12:51 | XMS_ITS | Encounter Summary ---
Author Organization Healthcare Address [address] [place] [address] Care Team Providers Care Volunteer Fire Fighter Name Role Phone Pcp, No Primary Care Provider Oren Hull MD Primary Care Provider Sima Trejo MD Unavailable [phone] Encounter Details Date Type Department Care Team (Late st Contact Info) Description 06/02/2021 Orders Only [facility] at [facility] [address] [place] [address] Sima Trejo MD [address] [address] Social History Tobacco Use Types [...] Description 11/07/2024 1:15 PM EDT Office Visit [facility] at [facility] [address] [place] [address] 11/07/2024 2:15 PM EDT Office Visit [facility] at [address] [place] [address] Sima Trejo MD [address] [place] [address] [address] documented as of this encounter Procedures Procedure Name Priority Date/Time Associated Diagnosis Comments LACTATE DEHYDROGENASE, PLASMA Routine 06/02/2021 12:06 PM EST documented in this encounter Results * Lactate Dehydrogenase, Plasma (06/02/2021 12:06 PM EST) External LDH Lactate Dehydrogenase 173 135 - 233 U/L [facility] 06/02/2021 12:0 6 PM EST 06/02/2021 12:41 PM EST us Sima Trejo MD LAB BLOOD ORDERABLES Final Re sult [facility] [address] [place] [address], [place] [phone] documented in this encounter Visit Diagnoses Not on filedocumented in this encounter Care Teams Volunteer Fire Fighter Relationship Specialty Start Date End Date Pcp, No [address] [place] [address] PCP - General 12/02/20 02/08/23 Oren Pressley MD [address] [place] [address] PCP - General Internal Medicine 02/09/23 Sima Trejo MD [address] [address] Medical Oncologist Hematology and Oncology 08/02/23 documented as of this encounter
--- OUTSIDE RECORDS SUMMARY | 2024-10-17 12:51 | XMS_ITS | Encounter Summary ---
Author Organization Healthcare Address [address] [place] [address] Care Team Providers Care Skimmer Reverberatory Name Role Phone Pcp, No Primary Care Provider Oren Hull MD Primary Care Provider Sima Trejo MD Unavailable [phone] Encounter Details Date Type Department Care Team (Late st Contact Info) Description 05/26/2022 Orders Only [facility] at [facility] [address] Sima Trejo MD [address] [address] Social History Tobacco Use Types [...] Description 11/07/2024 1:15 PM EDT Office Visit [facility] at [facility] [address] [place] [address] 11/07/2024 2:15 PM EDT Office Visit [facility] at [address] [place] [address] Sima Trejo MD [address] [place] [address] [address] documented as of this encounter Procedures Procedure Name Priority Date/Time Associated Diagnosis Comments URIC ACID, PLASMA Routine 05/26/2022 1:0 7 PM EST documented in this encounter Results * (ABNORMAL) Uric Acid, Plasma (05/26/2022 1:07 PM EST) External Uric Acid 8.9(H) 2.4 - 5.7 mg/dL [facility] Comment: Reference ranges are based on population norms and do not necessarily correlate with treatment targets. In patients with an established diagnosis of gout undergoing Urate Lowering Therapy (ULT), the 2012 [place] [employer] Guidelines for Management of Gout recommend a target uric acid level of < 6 mg/dL in all patients, or lower in certain circumstances. Arthritis Care and Research Vol 64 No 10, 2011 [place] [employer] 05/26/2022 1:07 PM EST 05/26/2022 1:19 PM EST us Sima Trejo MD LAB BLOOD ORDERABLES Final Re sult [facility] [address] [place] [address], documented in this encounter Visit Diagnoses Not on filedocumented in this encounter Care Teams Skimmer Reverberatory Relationship Specialty Start Date End Date Pcp, No [address] [place] [address] PCP - General 12/02/20 02/08/23 Oren Pressley MD [address] [place] [address] PCP - General Internal Medicine 02/09/23 [place] [address] [place] [address] Medical Oncologist Hematology and Oncology 08/02/23 documented as of this encounter
--- OUTSIDE RECORDS SUMMARY | 2024-10-17 12:51 | XMS_ITS | Encounter Summary ---
Author Organization Healthcare Address [address] [place] [address] Care Team Providers Care Manager Operational Name Role Phone Pcp, No Primary Care Provider Oren Hull MD Primary Care Provider Sima Trejo MD Unavailable [phone] Encounter Details Date Type Department Care Team (Late st Contact Info) Description 08/04/2021 Orders Only [facility] at [facility] [place] [address] Sima Trejo MD [address] [address] Social History Tobacco Use Types [...] EDT Office Visit [facility] at [facility] [place] [address] 11/07/2024 2:15 PM EDT Office Visit [facility] at [facility] [place] [address] Sima Trejo MD [address] [place] [address] [address] [phone] (work) documented as of this encounter Procedures Procedure Name Priority Date/Time Associated Diagnosis Comments COMPREHENSIVE METABOLIC PANEL, PLASMA Routine 08/04/2021 12:43 PM EDT documented in this encounter Results * (ABNORMAL) Comprehensive Metabolic Panel, Plasma (08/04/2021 12:43 PM EDT) External Glucose 99 74 - 100 mg/dL [facility] External BUN 23(H) 6 - 20 mg/dL [facility] External Creatinine Blood 1.69(H) 0.50 - 0.95 mg/dL [facility] External BUN/Creat Ratio 14 10 - 20 (calc) [facility] External Sodium 139 136 - 145 mmol/L [facility] External Potassium 4.1 3.4 - 5.0 mmol/L [facility] External Chloride 105 98 - 107 mmol/L [facility] External Carbon Dioxide 20(L) 22 - 31 mmol/L [facility] External Anion Gap (AG) 14 7 - 25 (calc) [facility] External Calcium 9.0 8.6 - 10.2 mg/dL [facility] External Total Protein 6.4 6.4 - 8.3 g/dL [facility] External Albumin 3.9 3.5 - 5.2 g/dL [facility] External Globulin 2.5 1.5 - 4.5 g/dL (calc) [facility] External Albumin/Globulin Ratio 1.6 1.1 - 2.5 (calc) [facility] External Bilirubin Total 0.3 0.1 - 1.2 mg/dL [facility] External Alkaline Phosphatase 69 30 - 121 U/L [facility] External AST (SGOT) 11 0 - 32 U/L [facility] External ALT (SGPT) 13 0 - 33 U/L [facility] External EGFR (If AFR/AM) 33(A) >=60 [facility] External Estimated GFR 29(A) >=60 [facility] Comment: NOTE Chronic kidney disease is defined as kidney damage for more than 3 months or a GFR less than 60 mL/min/1.73 m2 for greater than 3 months. This calculation has not been validated in women. For pediatric patients refer to National Kidney Foundation https://www.kidney.org/professionals/KDOQI/gfr_calculatorPed 08/04/2021 12:4 3 PM EDT 08/04/2021 1:07 PM EDT Sima Trejo MD LAB BLOOD ORDERABLES Final Re sult [facility] [address] [place] [address], documented in this encounter Visit Diagnoses Not on filedocumented in this encounter Care Teams Manager Operational Relationship Specialty Start Date End Date Pcp, No [address] [place] [address] PCP - General 12/02/20 02/08/23 Oren Pressley MD [address] [place] [address] PCP - General Internal Medicine 02/09/23 Sima Trejo MD [address] [address] Medical Oncologist Hematology and Oncology 08/02/23 documented as of this encounter
--- OUTSIDE RECORDS SUMMARY | 2024-10-17 12:51 | XMS_ITS | Encounter Summary ---
Author Organization Healthcare Address [address] [place] [address] Care Team Providers Care Ct Technician Name Role Phone Pcp, No Primary Care Provider Oren Hull MD Primary Care Provider Sima Trejo MD Unavailable [phone] Encounter Details Date Type Department Care Team (Late st Contact Info) Description 03/31/2021 Orders Only [facility] at [facility] [address] [address] Sima Trejo MD [address] [address] Social History Tobacco Use Types [...] Office Visit [facility] at [facility] [address] [place] [address] 11/07/2024 2:15 PM EDT Office Visit [facility] at [address] [place] [address] Sima Trejo MD [address] [place] [address] [address] documented as of this encounter Procedures Procedure Name Priority Date/Time Associated Diagnosis Comments LACTATE DEHYDROGENASE, PLASMA Routine 03/31/2021 12:13 PM EST documented in this encounter Results * Lactate Dehydrogenase, Plasma (03/31/2021 12:13 PM EST) External LDH Lactate Dehydrogenase 177 135 - 233 U/L [facility] 03/31/2021 12:1 3 PM EST 03/31/2021 1:17 PM EST us Sima Trejo MD LAB BLOOD ORDERABLES Final Re sult [facility] [address] [place] [address], [place] [phone] documented in this encounter Visit Diagnoses Not on filedocumented in this encounter Care Teams Ct Technician Relationship Specialty Start Date End Date Pcp, No [address] [place] [address] PCP - General 12/02/20 02/08/23 Oren Pressley MD [address] [place] [address] PCP - General Internal Medicine 02/09/23 Sima Trejo MD [address] [address] Medical Oncologist Hematology and Oncology 08/02/23 documented as of this encounter
--- OUTSIDE RECORDS SUMMARY | 2024-10-17 12:51 | XMS_ITS | Encounter Summary ---
Author Organization Healthcare Address [address] [place] [address] Care Team Providers Care Laboratory Machinist Name Role Phone Pcp, No Primary Care Provider Oren Hull MD Primary Care Provider Sima Trejo MD Unavailable [phone] Encounter Details Date Type Department Care Team (Late st Contact Info) Description 12/02/2020 Orders Only [facility] at [facility] [address] [address] Sima Trejo MD [address] [address] Social History Tobacco Use Types [...] 11/07/2024 1:15 PM EDT Office Visit [facility] at [facility] [address] [place] [address] 11/07/2024 2:15 PM EDT Office Visit [facility] at [facility] [address] [place] [address] Sima Trejo MD [address] [address] [address] [phone] (work) documented as of this encounter Procedures Procedure Name Priority Date/Time Associated Diagnosis Comments CBC WITH AUTO DIFFERENTIAL Routine 12/02/2020 12:56 PM EDT documented in this encounter Results * (ABNORMAL) CBC and Differential (12/02/2020 12:56 PM EDT) External WBC 8.0 3.8 - 10.8 K/uL [facility] External Red Blood Cell (RBC) 3.74(L) 3.80 - 5.20 M/uL [facility] External Hemoglobin 11.1(L) 12.0 - 16.0 G/DL [facility] External Hematocrit 33.5(L) 35.0 - 47.0 % [facility] External MCV 90 80 - 100 fL [facility] External MCH 30 26 - 35 [facility] External MCHC 33 32 - 36 G/DL [facility] External RDW 15.4(H) 11.0 - 15.0 % [facility] External Mean Platelet Volume 8.8 6.2 - 10.5 fL [facility] External Platelets 162 130 - 400 K/uL [facility] External Neutrophil# 5.1 1.6 - 8.4 K/uL [facility] External Lymphocyte# 2.0 0.4 - 5.1 K/uL [facility] External Absolute Monocyte (Abs [place]) 0.8 0.0 - 1.2 K/uL [facility] External Eosinophils# 0.1 0.0 - 0.8 K/uL [facility] External Baso# 0.1 0.0 - 0.3 K/uL [facility] External Neutrophils % 62.9 42.0 - 78.0 % [facility] External Lymphocyte % 25.1 11.0 - 47.0 % [facility] External Monocyte % 10.2 0.0 - 11.0 % [facility] External Eosinophil% 0.9 0.0 - 7.0 % [facility] External Basophil % 0.9 0.0 - 3.0 % [facility] External Nucleated RBC%-Auto 0.1 0.0 - 0.9 % [facility] External Nucleated RBC Absolute 0.01 Not Estab. K/uL [facility] 12/02/2020 12:5 6 PM EDT 12/02/2020 1:27 PM EDT Sima Trejo MD LAB BLOOD ORDERABLES Final Re sult [facility] [address] [place] [address], documented in this encounter Visit Diagnoses Not on filedocumented in this encounter Care Teams Laboratory Machinist Relationship Specialty Start Date End Date Pcp, No [address] [place] [address] PCP - General 12/02/20 02/08/23 Oren Pressley MD [address] [facility] [address] [place] [address] PCP - General Internal Medicine 02/09/23 Sima Trejo MD [address] [facility] [address] [place] [address] Medical Oncologist Hematology and Oncology 08/02/23 documented as of this encounter
--- OUTSIDE RECORDS SUMMARY | 2024-10-17 12:51 | XMS_ITS | Encounter Summary ---
Author Organization [employer] ([place], [place], [place], [place]) Address [address] [place] [address] Care Team Providers Care Offshore Wind Operations Manager Name Role Phone Oren Pressley MD Primary Care Provider [phone] Encounter Details Date Type Department Care Team (Late st Contact Info) Description 06/22/2019 Transcribed Document [facility] Family [place] [address] ProviderLaurel MD [address] [place] [id number] Social History Tobacco Use Types Packs/Day Years Used Date Smoking Tobacco: Never Assessed Comments Unknown Sex and Gender Information Value Date Recorded Sex Assigned at Not on file Legal Sex Female 4:44 PM CDT Gender Identity Not on file Sexual Orientation Not on file documented as of this encounter Miscellaneous Notes * Cerner Conversion Note - Historical ProviderMD - 06/22/2019 9:38 AM PAINT FORMULATOR Pre Procedure Adult Entered On: 06/22/2019 9:45 EST Performed On: 06/22/2019 9:38 EST by EDWINA VALIENTE RN Height and Weight, Clinical Dosing Height Source : Measured Height Entry Format : [place] Height, Feet : 5 ft(Converted to: 152 cm, 60 Inch) Height, Inches : 5 Inch(Converted to: 0 ft 5 Inch, 12.70 cm) Clinical Height : 165.1 cm Weight Source : Standing scale Weight Entry Format : [place]osic Clinical Dosing Weight : 109.09 kg Weight, Pounds : 240 lb Body Surface Area (BSA) : 2.14 m2 Body Mass Index : 40 kg/m2 (HI) [place] Body Weight : 57 kg EDWINA VALIENTE RN - 06/22/2019 9:38 EST Health Histories Smoking Status : Former smoker, quit more than 30 days ago Smokeless Tobacco Status : Never EDWINA VALIENTE RN - 06/22/2019 9:38 EST Social History (As Of: 06/22/2019 09:45:10 EST) Tobacco: Former smokeless tobacco user, quit more than 30 days ago Smokeless Tobacco Status. Last Used: Quit 30 years ago. (Last Updated: 05/16/2018 08:39:55 EST by KASSIDY SAWYER RN) Infectious Disease History Physical contact outside [place] in the last 30 days : No Infectious Disease History : None, Chicken pox/Shingles, Measles, Mumps Tuberculosis Symptoms : None EDWINA VALIENTE RN - 06/22/2019 9:38 EST Anesthesia/Transfusion History Family History of Anesthesia Reaction : No prior transfusion(s) Transfusion History : Prior anesthesia without reaction Family History of Anesthesia Reaction : None EDWINA VALIENTE RN - 06/22/2019 9:38 EST Functional Assessment Living Situation : Home Patient Lives With : Alone Current Home Treatments : None EDWINA VALIENTE RN - 06/22/2019 9:[address] [place] Suicide Severity Rating Scale (C-SSRS) CSSRS Past Month Wish to be : No CSSRS Past Month Suicidal Thoughts : No CSSRS Lifetime Suicide Behavior : No Suicide Severity Rating Score : 0 Suicide Severity Rating : No Additional Care Required at this time EDWINA VALIENTE RN - 06/22/2019 9:38 EST Psychosocial History Do You Have a History of the Following? : Patient denies history Currently in Unsafe Situation : No EDWINA VALIENTE RN - 06/22/2019 9:38 EST Advance Directive Patient has Advance Directive *Q : No, patient refuses Advance Directive information EDWINA VALIENTE RN - 06/22/2019 9:38 EST General Info Legal Guardian : No Support Person/Patient Generation Technologist : Yes Want Family/Rep/Phys Notified of Admit : No Emergency Contact #1 : [place] Emergency Contact #1 Emergency Contact #1 Relationship : son Emergency Contact #2 : none Emergency Contact #2 Phone Number : none Emergency Contact #2 Relationship : none Primary Language : Khmer Preferred Communication Mode : Verbal Communication Barrier : None EDWINA VALIENTE RN - 06/22/2019 9:38 EST Sleep Apnea Risk Assmt Hx of Obstructive Sleep Apnea Diagnosis : No Snore Loudly : No Tired, Fatigued, or Sleepy During Day : Yes Observed Stopping Breathing During Sleep : Yes Have/Are Being Treated for Hypertension : Yes BMI Greater Than 35 kg/m2 : No Age over 50 Years Old : Yes Neck Circumference Greater Than 40 cm : No Gender Male : No STOP-BANG Sleep Apnea Risk Level Score : 4 EDWINA VALIENTE RN - 06/22/2019 9:38 EST Constantino Scale Constantino Sensory Perception : No impairment Constantino Moisture : Rarely moist Constantino Activity : Walks frequently Constantino Mobility : No limitation Constantino Nutrition : Adequate Constantino Friction and Shear : No apparent problem Constantino Score : 22 EDWINA VALIENTE RN - 06/22/2019 9:38 EST Fall Risk Scales ABCs Fall Injury Risk Identification : Age, Bones, Coagulation ABC Fall Injury Risk : Moderate to high injury risk DAMON Hx Falls Immediate/Within 3 Months : No Damon Secondary Diagnosis : No DAMON Use of Ambulatory Aid : None DAMON IV Therapy or IV Access : Yes Damon Gait/Transferring : Normal, bedrest, immobile Damon Mental Status : Overestimates/Forgets limitations DAMON Fall Scale Risk Level : 25-45 Medium Risk [place] Fall Interventions : Adequate lighting, Assistive devices within reach, Bed in low position, Call device within reach, Fall prevention handout/education per facility policy, Hourly comfort/safety rounds, Non-slip footwear, Personal items within reach, Reinforced to call for assistance before getting out of bed, Room free of clutter/spills, Wheels locked, Wires/Cords secured EDWINA VALIENTE RN - 06/22/2019 9:38 EST Valuables and Belongings Valuables and Belongings : Clothing Clothing : Common streetwear Clothing Disposition : Bedside EDWINA VALIENTE RN - 06/22/2019 9:38 EST Electronically signed by Rayne Zamudio Conversion Risk Control Product Liability Director Cerner at 08/07/2022 2:31 PM CDT documented in this encounter Plan of Treatment Not on file documented as of this encounter Visit Diagnoses Not on filedocumented in this encounter Care Teams Offshore Wind Operations Manager Relationship Specialty Start Date End Date Oren Pressley MD [address] [place] [address] PCP - General Adolescent Medicine 05/17/23 documented as of this encounter
--- OUTSIDE RECORDS SUMMARY | 2024-10-17 12:51 | XMS_ITS | Encounter Summary ---
Author Organization [employer] ([place], [place], [place], [place]) Address [address] [place] [address] Care Team Providers Care Probation Manager Name Role Phone Oren Pressley MD Primary Care Provider [phone] Encounter Details Date Type Department Care Team (Late st Contact Info) Description 06/22/2019 Transcribed Document [facility] [place] [facility] [place] [address] ProviderLaurel MD [address] [place] [id number] Social History Tobacco Use Types Packs/Day Years Used Date Smoking Tobacco: Never Assessed Comments Unknown Sex and Gender Information Value Date Recorded Sex Assigned at Not on file Legal Sex Female 4:44 PM CDT Gender Identity Not on file Sexual Orientation Not on file documented as of this encounter Miscellaneous Notes * Cerner Conversion Note - Laurel Mayer MD - 06/22/2019 12:28 PM SLEEP LAB TECHNOLOGIST Patient Education Materials Follows: Electrical Cardioversion, Care After This sheet gives [...] to help you relax (sedative). ??? Take [id number] and prescription medicines only as told by [...] 01/24/2014 Document Revised: 11/06/2016 Document Reviewed: 10/09/2016 Coco Controller Interactive Patient Education ? 2019 [employer]. Moderate Conscious Sedation, Adult, Care After These [...] you are awake and alert. ??? Take ifya-wwm-mhccpnq and prescription medicines only as told by [...] 01/24/2014 Document Revised: 09/07/2016 Document Reviewed: 07/25/2016 Coco Controller Interactive Patient Education ? 2019 [employer]Track. documented in this encounter Plan of Treatment Not on file documented as of this encounter Visit Diagnoses Not on filedocumented in this encounter Care Teams Probation Manager Relationship Specialty Start Date End Date Oren Pressley MD [address] [place] [address] PCP - General Adolescent Medicine 05/17/23 documented as of this encounter
--- OUTSIDE RECORDS SUMMARY | 2024-10-17 12:51 | XMS_ITS | Encounter Summary ---
Author Organization Healthcare Address [address] [place] [address] Care Team Providers Care Volcanology Teacher Name Role Phone Pcp, No Primary Care Provider Oren Hull MD Primary Care Provider Sima Trejo MD Unavailable [phone] Encounter Details Date Type Department Care Team (Late st Contact Info) Description 12/02/2020 Orders Only [facility] [address] [place] [address] Sima Trejo MD [address] [address] Social History Tobacco Use Types [...] Description 11/07/2024 1:15 PM EDT Office Visit [facility] [address] [facility] [place] [address] 11/07/2024 2:15 PM EDT Office Visit [facility] [address] [facility] [address] [place] [address] Sima Trejo MD [address] [address] documented as of this encounter Procedures Procedure Name Priority Date/Time Associated Diagnosis Comments LACTATE DEHYDROGENASE, PLASMA Routine 12/02/2020 12:56 PM EDT documented in this encounter Results * Lactate Dehydrogenase, Plasma (12/02/2020 12:56 PM EDT) External LDH Lactate Dehydrogenase 184 135 - 233 U/L [facility] 12/02/2020 12:5 6 PM EDT 12/02/2020 1:26 PM EDT us Sima Trejo MD LAB BLOOD ORDERABLES Final Re sult [facility] [address] [place] [address], [place] [phone] documented in this encounter Visit Diagnoses Not on filedocumented in this encounter Care Teams Volcanology Teacher Relationship Specialty Start Date End Date Pcp, No [address] [place] [address] PCP - General 12/02/20 02/08/23 Oren Pressley MD [address] [place] [address] PCP - General Internal Medicine 02/09/23 Sima Trejo MD [address] [facility] [address] [place] [address] Medical Oncologist Hematology and Oncology 08/02/23 documented as of this encounter
--- OUTSIDE RECORDS SUMMARY | 2024-10-17 12:51 | XMS_ITS | Encounter Summary ---
Author Organization [employer] ([place], [place], [place], [place]) Address [address] [place] [address] Care Team Providers Care Indoor Landscape Architect Name Role Phone Oren Pressley MD Primary Care Provider [phone] Encounter Details Date Type Department Care Team (Late st Contact Info) Description 06/22/2019 Transcribed Document [facility] Family Medicine [facility] [place] [address] ProviderLaurel MD [address] [place] [id number] Social History Tobacco Use Types Packs/Day Years Used Date Smoking Tobacco: Never Assessed Comments Unknown Sex and Gender Information Value Date Recorded Sex Assigned at Not on file Legal Sex Female 4:44 PM CDT Gender Identity Not on file Sexual Orientation Not on file documented as of this encounter Miscellaneous Notes * Cerner Conversion Note - Historical ProviderMD - 06/22/2019 12:29 PM [facility] Nursing Discharge Summary Entered On: 06/22/2019 12:29 EST Performed On: 06/22/2019 12:29 EST by EDWINA VALIENTE RN Discharge Documentation Discharge Date/Time : 06/22/2019 12:29 EST Patient Disposition, General : Discharge Discharge To : Home with ambulatory/outpatient follow-up Mode Of Departure, General Discharge : Private vehicle Accompanied By, Discharge : Friend IV Discontinued : Yes Personal Belongings With Patient : Yes Discharge Instructions Reviewed With, Opportunity For Questions Given : Patient Patient Education Completed : Yes Teaching Method : Demonstration, Explanation Teaching Evaluation : Returns demonstration, Verbalizes understanding EDWINA VALIENTE RN - 06/22/2019 12:29 EST Electronically signed by Robb [facility] Conversion Road Hogger Operator Cerner at 08/07/2022 2:09 PM CDT documented in this encounter Plan of Treatment Not on file documented as of this encounter Visit Diagnoses Not on filedocumented in this encounter Care Teams Indoor Landscape Architect Relationship Specialty Start Date End Date Oren Pressley MD [address] [place] [address] PCP - General Adolescent Medicine 05/17/23 documented as of this encounter
--- OUTSIDE RECORDS SUMMARY | 2024-10-17 12:51 | XMS_ITS | Encounter Summary ---
Author Organization [employer] ([place], [place], [place], [place]) Address [address] [place] [address] Care Team Providers Care Ground School Instructor Name Role Phone Oren Pressley MD Primary Care Provider [phone] Encounter Details Date Type Department Care Team (Late st Contact Info) Description 04/15/2023 Outside Orders [facility] Central Scheduling [address] [place] [address] Sima Trejo MD [address] [place] [address] [address] [place] [address] Lung nodule (Primary Dx) Social History Tobacco Use Types Packs/Day Years Used Date Smoking Tobacco: Never Assessed Food Insecurity Answer Date Recorded Food run [...] Date [place] Speak language other than Montenegrin at home Not on file 04/30/2023 Want help with school or training Not on file 04/30/2023 Substance Use Answer Date Recorded Used prescription meds for non-medical reasons N ot on file 04/30/2023 Used illegal drugs past 12 months Not on file 04/30/2023 Comments Unknown Sex and Gender Information Value Date Recorded Sex Assigned at Not on file Legal Sex Female 4:44 PM CDT Gender Identity Not on file Sexual Orientation Not on file documented as of this encounter Plan of Treatment Not on file documented as of this encounter Visit Diagnoses Diagnosis Lung nodule- Primary Other diseases of lung, not elsewhere classified documented in this encounter Care Teams Ground School Instructor Relationship Specialty Start Date End Date Oren Pressley MD [address] [place] [address] PCP - General Adolescent Medicine 05/17/23 documented as of this encounter
--- OUTSIDE RECORDS SUMMARY | 2024-10-17 12:51 | XMS_ITS | Clinical Summary ---
Author Organization Healthcare Address [address] [place] [address] Care Team Providers Care Director [employer] Name Role Phone Oren Pressley MD Primary Care Provider [phone] Sima Trejo MD Unavailable [phone] Allergies No known active allergies Medications warfarin (Coumadin) 2.5 MG tablet Take 1 tablet (2.5 mg) by mouth Daily. Active rosuvastatin (Crestor) 5 MG tablet 3 Active PARoxetine (Paxil) 40 MG tablet Take 1 tablet (40 mg) by mouth Daily. Active omeprazole (PriLOSEC) [address] capsule 3 Active nystatin (Mycostatin) cream 3 Active metoprolol tartrate (Lopressor) 50 MG tablet Take 1 tablet (50 mg) by mouth 2 (two) times a day. for 7 days 3 Active metoprolol succinate XL (Toprol-XL) 25 MG 24 hr tablet Take 1 tablet (25 mg) by mouth Daily. Active meclizine (Antivert) 25 MG tablet TAKE 1 TABLET BY MOUTH THREE TIMES DAILY NEEDED FOR DIZZINESS 3 Active losartan (Cozaar) 100 MG tablet Take 1 tablet (100 mg) by mouth Daily. Active LORazepam (Ativan) 0.5 MG tablet Take 1 tablet (0.5 mg) by mouth 2 (two) times a day. Active hydrocortisone 2.5 % cream 3 Active isosorbide dinitrate (Isordil) 20 MG tablet Take 1 tablet (20 mg) by mouth 2 (two) times a day. Active furosemide (Lasix) 20 MG tablet Take 1 tablet (20 mg) by mouth Daily. Active flecainide (Tambocor) 50 MG tablet Take 1 tablet (50 mg) by mouth every 12 (twelve) hours. Active eplerenone (Inspra) 25 MG tablet Take 1 tablet (25 mg) by mouth Daily. Active ergocalciferol 1.25 MG (96006 UT) capsule 3 Active cyanocobalamin (Vitamin B-12) 1000 MCG/ML injection 3 Active clonazePAM (KlonoPIN) 0.5 MG tablet Take 1 tablet (0.5 mg) by mouth Daily. Active carvedilol (Coreg) 12.5 MG tablet Take 1 tablet (12.5 mg) by mouth 2 (two) times a day. Active Ventolin HFA 108 (90 Base) MCG/ACT inhaler 3 Active Active Problems Problem Noted Date Diagnosed Date Tongue mass 01/12/2023 Encounters Date Type Department Care Team Description 09/19/2024 Orders Only [facility] [place] [address] [place] [address] Sima Trejo MD History of non-Hodgkin's lymphoma 08/08/2024 2:00 PM EDT Office Visit [facility] [place] [address] [place] [address] Sima Trejo MD History of non-Hodgkin's lymphoma (Primary Dx) 08/08/2024 Orders Only [facility] [place] [address] [place] [address] Sima Trejo MD 08/08/2024 Travel 08/07/2024 Orders Only [facility] [place] [address] [place] [address] Sima Trejo MD History of non-Hodgkin's lymphoma from Last 3 Months Social History Tobacco Use Types Packs/Day Years Used Date Smoking Tobacco: Former Cigarettes Passive Smoke Exposure: Never Smokeless Tobacco: Former Tobacco Cessation:Counseling Given: Not Answered Comments:Quit 50 years ago. Alcohol Use Standard Drinks/Week Comments Never 0 (1 standard drink = 0.6 oz pur e alcohol) Comments Unknown Sex and Gender Information Value Date Recorded Sex Assigned at Not on file Legal Sex Female 8:16 PM EDT Gender Identity Not on file Sexual Orientation Not on file Last Filed Vital Signs Vital Sign Reading Time Taken Comments Blood Pressure 137/82 08/08/2024 2:04 PM EDT Pulse 59 08/08/2024 2:04 PM EDT Temperature 36.8 C (98.2 F) 08/08/2024 2:04 PM EDT Respiratory Rate - - Oxygen Saturation 96% 08/08/2024 2:04 PM EDT Inhaled Oxygen Concentration - - Weight 92 kg (202 lb 13.2 oz) 08/08/2024 2:04 PM EDT Height 167.6 cm (5' 6 ) 08/08/2024 2:04 PM EDT Body Mass Index 32.74 08/08/2024 2:04 PM EDT Plan of Treatment Upcoming Encounters Date Type Department Care Team (Late st Contact Info) Description 11/07/2024 1:15 PM EDT Office Visit [facility] [address] [place] [address] 11/07/2024 2:15 PM EDT Office Visit [facility] [address] [place] [address] Sima Trejo MD [address] [phone] Health Maintenance Due Date Last Done Comments [facility]-Bone Density Scan 1945 [facility]-Depression Screening 1945 [facility]-Medicare Annual Wellness (AWV) 1945 [facility]-/Child/Adol SDOH Screenings 1945 [facility]-Obesity Intervention 08/18/1949 [facility]- SDOH Screenings 08/18/1961 [facility]-Adult SDOH Screenings 08/18/1961 [facility]-Zoster Vaccines (1 of 2) 01/18/2017 11/23/2016 [facility]-RSV Vaccine: 60+ Years or (1 - 1-dose 75+ series) 08/18/2018 [id number] Vaccine ( - season) 2023 03/16/2023, 01/08/2021, 07/19/2020, Additional history exists [facility]-DTaP,Tdap,and Td Vaccines (2 - Td or Tdap) 08/05/2034 08/05/2024 [facility]-Pneumococcal Vaccine: 50+ Years Completed 07/18/2021, 01/17/2018, 10/28/2017, Additional history exists [facility]-Influenza Vaccine Completed 01/11/2024 , 03/16/2023, 01/01/2022, Additional history exists HPV Vaccines Aged Out No longer eligi ble based on patient's age to complete this topic [facility]-HIB Vaccines Aged Out No longer e ligible based on patient's age to complete this topic [facility]-Hepatitis A Vaccines Aged Out No longer eligible based on patient's age to complete this topic [facility]-IPV Vaccines Aged Out No longer e ligible based on patient's age to complete this topic [facility]-Rotavirus Vaccines Aged Out No lo nger eligible based on patient's age to complete this topic Procedures Procedure Name Priority Date/Time Associated Diagnosis Comments MANUAL DIFFERENTIAL Routine 08/08/2024 1 2:57 PM EDT URIC ACID, PLASMA STAT 08/08/2024 12: 57 PM EDT History of non-Hodgkin's lymphoma LACTATE DEHYDROGENASE, PLASMA STAT 08/08/2024 12:57 PM EDT History of non-Hodgkin's lymphoma COMPREHENSIVE METABOLIC PANEL, PLASMA STAT 08/08/2024 12:57 PM EDT History of non-Hodgkin's lymphoma CBC WITH AUTO DIFFERENTIAL STAT 08/08/2024 12:57 PM EDT History of non-Hodgkin's lymphoma from Last 3 Months Results * (ABNORMAL) Manual Differential (08/08/2024 12:57 PM EDT) External Band Neutrophil% 0.0 0.0 - 7.0 % 08/08/2024 1:43 PM EDT [facility] External Atypical Lymph% 0 0 - 1 % 08/08/2024 1:43 PM EDT [facility] External Metamyelocyte % 0 0 - 1 % 08/08/2024 1:43 PM EDT [facility] External Myelocyte % 0 0 - 1 % 08/08/2024 1:43 PM EDT [facility] External Promyelocyte% 0 0 % 08/08/2024 1:43 PM EDT [facility] External Blast% 0 0 % 1:43 PM EDT [facility] External Nucleated RBC%-Manual 0 0 - 1 /100{WBC} 08/08/2024 1:43 PM EDT [facility] External Smudge Cells 0 0 /100{WBC} 08/08/2024 1:43 PM EDT [facility] External Platelet Morphology NORMAL 08/08/2024 1:43 PM EDT [facility] External Polychromasia SLIGHT(A) 08/08/2024 1:43 PM EDT [facility] External Ovalocytes SLIGHT(A) 08/08/2024 1:43 PM EDT [facility] 08/08/2024 12:5 7 PM EDT 08/08/2024 1:15 PM EDT us Sima Trejo MD LAB BLOOD ORDERABLES Final Re sult [facility] [place] [id number], * (ABNORMAL) CBC and Differential (08/08/2024 12:57 PM EDT) External WBC 39.1(H) 3.8 - 10.8 10*3/uL 08/08/2024 1:43 PM EDT [facility] Comment:RESULTS RECHECKED External Red Blood Cell (RBC) 3.87 3.80 - 5.20 10*6/uL 08/08/2024 1:43 PM EDT [facility] External Hemoglobin 11.5(L) 12.0 - 16.0 g/dL 08/08/2024 1:43 PM EDT [facility] External Hematocrit 36.2 35.0 - 47.0 % 08/08/2024 1:43 PM EDT [facility] External MCV 94 80 - 100 fL 08/08/2024 1:43 PM EDT [facility] External MCH 30 26 - 35 pg 08/08/2024 1:43 PM EDT [facility] External MCHC 32 32 - 36 g/dL 08/08/2024 1:43 PM EDT [facility] External RDW 18.2(H) 11.0 - 15.0 % 08/08/2024 1:43 PM EDT [facility] External Mean Platelet Volume 7.4 6.2 - 10.5 fL 08/08/2024 1:43 PM EDT [facility] External Platelet Count (Plt) 123(L) 150 - 400 10*3/uL 08/08/2024 1:43 PM EDT [facility] External Neutrophil# 4.7 1.6 - 8.4 10*3/uL 08/08/2024 1:43 PM EDT [facility] External Lymphocyte# 33.6(H) 0.4 - 5.1 10*3/uL 08/08/2024 1:43 PM EDT [facility] External Absolute Monocyte (Abs Mora) 0.8 0.0 - 1.2 10*3/uL 08/08/2024 1:43 PM EDT [facility] External Eosinophils# 0.0 0.0 - 0.8 10*3/uL 08/08/2024 1:43 PM EDT [facility] External Baso# 0.0 0.0 - 0.3 10*3/uL 08/08/2024 1:43 PM EDT [facility] External Neutrophils % 12.0(L) 42.0 - 78.0 % 08/08/2024 1:43 PM EDT [facility] External Lymphocyte % 86.0(H) 11.0 - 47.0 % 08/08/2024 1:43 PM EDT [facility] External Monocyte % 2.0 0.0 - 11.0 % 08/08/2024 1:43 PM EDT [facility] External Eosinophil% 0.0 0.0 - 7.0 % 08/08/2024 1:43 PM EDT [facility] External Basophil % 0.0 0.0 - 3.0 % 08/08/2024 1:43 PM EDT [facility] External Nucleated RBC%-Auto 0.2 0.0 - 0.9 % 08/08/2024 1:43 PM EDT [facility] External Nucleated RBC Absolute 0.07 Not Estab. 10*3/uL 08/08/2024 1:43 PM EDT [facility] Blood Venous blood specimen / Unknown 08/08/2024 12:57 PM EDT 08/08/2024 1:15 PM EDT us Sima Trejo MD LAB BLOOD ORDERABLES Final Re sult Performing Organization Address [facility] Co de Phone Number [facility] [address] [place] [address], * Uric Acid, Plasma (08/08/2024 12:57 PM EDT) External Uric Acid 5.5 2.4 - 5.7 mg/dL 08/08/2024 1:40 PM EDT [facility] Comment: Reference ranges are based on population norms and do not necessarily correlate with treatment targets. In patients with an established diagnosis of gout undergoing Urate Lowering Therapy (ULT), the 2012 [place] [employer] Guidelines for Management of Gout recommend a target uric acid level of < 6 mg/dL in all patients, or lower in certain circumstances. Arthritis Care and Research Vol 64 No 10, Jan. 2012 [place] [employer] Blood Venous blood specimen / Unknown 08/08/2024 12:57 PM EDT 08/08/2024 1:24 PM EDT us Sima Trejo MD LAB BLOOD ORDERABLES Final Re sult Performing Organization Address [facility]/ZIP Co de Phone Number [facility] [address] [place] [address], [place] [phone] * Lactate Dehydrogenase, Plasma (08/08/2024 12:57 PM EDT) Pathologist [facility] External LDH Lactate Dehydrogenase 201 135 - 233 U/L 08/08/2024 2:09 PM EDT [facility] Blood Venous blood specimen / Unknown 08/08/2024 12:57 PM EDT 08/08/2024 1:24 PM EDT us Sima Trejo MD LAB BLOOD ORDERABLES Final Re sult [facility] [address] [place] [address], * (ABNORMAL) Comprehensive Metabolic Panel, Plasma (08/08/2024 12:57 PM EDT) [facility] External Glucose 123(H) 74 - 100 mg/dL 08/08/2024 1:40 PM EDT [facility] External BUN 23(H) 6 - 20 mg/dL 08/08/2024 1:40 PM EDT [facility] External Creatinine Blood 1.27(H) 0.50 - 0.95 mg/dL 08/08/2024 1:40 PM EDT [facility] External BUN/Creat Ratio 18 10 - 20 (calc) 08/08/2024 1:40 PM EDT [facility] External Sodium 135(L) 136 - 145 mmol/L 08/08/2024 1:40 PM EDT [facility] External Potassium 4.5 3.4 - 5.0 mmol/L 08/08/2024 1:40 PM EDT [facility] External Chloride 100 98 - 107 mmol/L 08/08/2024 1:40 PM EDT [facility] External Carbon Dioxide (CO2) 23 22 - 31 mmol/L 08/08/2024 1:40 PM EDT [facility] External Anion Gap (AG) 12 7 - 25 (calc) 08/08/2024 1:40 PM EDT [facility] External Calcium 9.2 8.6 - 10.2 mg/dL 08/08/2024 1:40 PM EDT [facility] External Total Protein 7.0 6.4 - 8.3 g/dL 08/08/2024 1:40 PM EDT [facility] External Albumin 4.3 3.5 - 5.2 g/dL 08/08/2024 1:40 PM EDT [facility] External Globulin 2.7 1.5 - 4.5 025 1:40 PM EDT [facility] External Albumin/Globulin Ratio 1.6 1.1 - 2.5 (calc) 08/08/2024 1:40 PM EDT [facility] External Bilirubin Total 0.7 0.1 - 1.2 mg/dL 08/08/2024 1:40 PM EDT [facility] External Alkaline Phosphatase 82 30 - 121 U/L 08/08/2024 1:40 PM EDT [facility] External AST (SGOT) 14 0 - 32 U/L 08/08/2024 1:40 PM EDT [facility] External ALT (SGPT) 8 0 - 33 U/L 08/08/2024 1:40 PM EDT [facility] External Estimated GFR 42(A) >=60 08/08/2024 1:40 PM EDT [facility] Comment: NOTE New calculation for GFR (CKD-EPI 2020) is formulated without race adjustment factors at the recommendation of the National Kidney Foundation and [place] [employer]. This calculation has not been validated in women. For pediatric patients refer to https://www.kidney.org/professionals/KDOQI/gfr_calculatorPed Blood Venous blood specimen / Unknown 08/08/2024 12:57 PM EDT 08/08/2024 1:24 PM EDT us Sima Trejo MD LAB BLOOD ORDERABLES Final Re sult [facility] [address] [place] [address], [place] [phone] from Last 3 Months Insurance MEDICARE Care Teams Director [employer] Relationship Specialty Start Date End Date Oren Pressley MD [address] [place] [address] PCP - General Internal Medicine 02/09/23 Sima Trejo MD [address] [phone] Medical Oncologist Hematology and Oncology 08/02/23
--- OUTSIDE RECORDS SUMMARY | 2024-10-17 12:51 | XMS_ITS | Encounter Summary ---
Author Organization [employer] ([place], [place], [place], [place]) Address [address] [place] [address] Care Team Providers Care Buffing Wheel Former Automatic Name Role Phone Oren Pressley MD Primary Care Provider [phone] Encounter Details Date Type Department Care Team (Late st Contact Info) Description 06/22/[address] [facility] Family Medicine [address] [place] [address] ProviderLaurel MD [address] [place], [place] [address] Social History Tobacco Use Types Packs/Day Years Used Date Smoking Tobacco: Never Assessed Comments Unknown Sex and Gender Information Value Date Recorded Sex Assigned at Not on file Legal Sex Female 4:44 PM CDT Gender Identity Not on file Sexual Orientation Not on file documented as of this encounter Miscellaneous Notes * [employer]ner Conversion Note - Historical ProviderMD - 06/22/2019 12:31 PM MATERIAL REQUIREMENTS WORKER Stroke/Warfarin Instructions Entered On: 06/22/2019 12:31 EST Performed On: 06/22/2019 12:31 EST by EDWIAN VALIENTE RN Stroke/Warfarin Instructions Stroke/TIA Discharge Ins : Open Warfarin Discharge Ins : Open EDWINA VALIENTE RN - 06/22/2019 12:31 EST Stroke/TIA Discharge Instructions Individualized Stroke Risk Factors *Q : Atrial fibrillation, High cholesterol, Hypertension/High blood pressure, Obesity, Physical inactivity Stroke Education Handouts Given *Q : Yes EDWINA VALIENTE RN - 06/22/2019 12:31 EST Stroke Education Materials Given-Grid Activation of EMS *Q : Verbalizes understanding Follow-up Care After Discharge *Q : Verbalizes understanding Medications prescribed at DC *Q : Verbalizes understanding Risk Factors for Stroke *Q : Verbalizes understanding Warning S&S of Stroke *Q : Verbalizes understanding EDWINA VALIENTE RN - 06/22/2019 12:31 EST Stroke/TIA Signs/Symptoms to Report Immediately : Sudden onset difficulty speaking, Sudden onset difficulty understanding speech, Sudden onset change in vision, Sudden onset weakness particulary on one side of the body, Sudden onset numbness/tingling, Sudden severe headache, Sudden dizziness or trouble with gait, Call 9-1: EMS activation is crucial My LDL Level: : LDL Level No qualifying data available. EDWINA VALIENTE RN - 06/22/2019 12:31 EST Warfarin Discharge Instructions Indication for Warfarin Anticoagulation : Atrial fibrillation Warfarin Anticoagulation Disposition : Continuation of pre-hospital treatment Notify Provider of Signs/Symptoms of : Significant bleeding, Clot EDWINA VALIENTE RN - 06/22/2019 12:31 EST Electronically signed by [facility] Conversion Software Project Manager Cerner at 08/07/2022 2:02 PM CDT documented in this encounter Plan of Treatment Not on file documented as of this encounter Visit Diagnoses Not on filedocumented in this encounter Care Teams Buffing Wheel Former Automatic Relationship Specialty Start Date End Date Oren Pressley MD [address] [place] [address] PCP - General Adolescent Medicine 05/17/23 documented as of this encounter
--- OUTSIDE RECORDS SUMMARY | 2024-10-17 12:51 | XMS_ITS | Encounter Summary ---
Author Organization Healthcare Address [address] [place] [address] Care Team Providers Care Heel Seat Sander Name Role Phone Pcp, No Primary Care Provider Oren Hull MD Primary Care Provider [phone] Sima Trejo MD Unavailable [phone] Encounter Details Date Type Department Care Team (Late st Contact Info) Description 06/02/2021 Orders Only [facility] [address] [facility] [address] [place] [address] Sima Trejo MD [address] [address] Social History Tobacco Use Types [...] Description 11/07/2024 1:15 PM EDT Office Visit [facility] [address] [facility] [place] [address] 11/07/2024 2:15 PM EDT Office Visit [facility] [address] [place] [address] Sima Trejo MD [address] [place] [address] [address] [phone] (work) documented as of this encounter Procedures Procedure Name Priority Date/Time Associated Diagnosis Comments COMPREHENSIVE METABOLIC PANEL, PLASMA Routine 06/02/2021 12:06 PM EST documented in this encounter Results * (ABNORMAL) Comprehensive Metabolic Panel, Plasma (06/02/2021 12:06 PM EST) External Glucose 119(H) 74 - 100 mg/dL [facility] External BUN 27(H) 6 - 20 mg/dL [facility] External Creatinine Blood 1.62(H) 0.50 - 0.95 mg/dL [facility] External BUN/Creat Ratio 17 10 - 20 (calc) [facility] External Sodium 142 136 - 145 mmol/L [facility] External Potassium 4.3 3.4 - 5.0 mmol/L [facility] External Chloride 103 98 - 107 mmol/L [facility] External Carbon Dioxide 24 22 - 31 mmol/L [facility] External Anion Gap (AG) 15 7 - 25 (calc) [facility] External Calcium 9.3 8.6 - 10.2 mg/dL [facility] External Total Protein 6.4 6.4 - 8.3 g/dL [facility] External Albumin 4.4 3.5 - 5.2 g/dL [facility] External Globulin 2.0 1.5 - 4.5 g/dL (calc) [facility] External Albumin/Globulin Ratio 2.2 1.1 - 2.5 (calc) [facility] External Bilirubin Total 0.3 0.1 - 1.2 mg/dL [facility] External Alkaline Phosphatase 82 30 - 121 U/L [facility] External AST (SGOT) 17 0 - 32 U/L [facility] External ALT (SGPT) 17 0 - 33 U/L [facility] External EGFR (If AFR/AM) 35(A) >=60 [facility] External Estimated GFR 30(A) >=60 [facility] Comment: NOTE Chronic kidney disease is defined as kidney damage for more than 3 months or a GFR less than 60 mL/min/1.73 m2 for greater than 3 months. This calculation has not been validated in women. For pediatric patients refer to National Kidney Foundation https://www.kidney.org/professionals/KDOQI/gfr_calculatorPed 06/02/2021 12:0 6 PM EST 06/02/2021 12:41 PM EST Sima Trejo MD LAB BLOOD ORDERABLES Final Re sult [facility] [address] [place] [address], [place] [phone] documented in this encounter Visit Diagnoses Not on filedocumented in this encounter Care Teams Heel Seat Sander Relationship Specialty Start Date End Date Pcp, No [address] [place] [address] PCP - General 12/02/20 02/08/23 Oren Pressley MD [address] [place] [address] PCP - General Internal Medicine 02/09/23 Sima Trejo MD [address] [address] Medical Oncologist Hematology and Oncology 08/02/23 documented as of this encounter
--- OUTSIDE RECORDS SUMMARY | 2024-10-17 12:51 | XMS_ITS | Referral Summary ---
Author Organization [employer] ([place], [place], [place], [place]) Address [address] [place] [address] Care Team Providers Care Yarn Examiner Skeins Name Role Phone Oren Pressley MD Primary Care Provider [phone] Allergies No known active allergies Medications clonazePAM [...] Tobacco Cessation:Counseling Given: Not Answered Comments:Quit 1989 04 ppd for 15 years Food Insecurity Answer [...] Date [place] Speak language other than Uz[place] at home Not on file 04/30/2023 Want [...] 05/24/2023 7:56 AM EST Plan of Treatment Not on file Insurance MEDICARE PART A B Care Teams Yarn Examiner Skeins Relationship Specialty Start Date End Date Oren Pressley MD [address] [place] [address] PCP - General Adolescent Medicine 05/17/23
--- OUTSIDE RECORDS SUMMARY | 2024-10-17 12:52 | XMS_ITS | Encounter Summary ---
Author Organization Healthcare Address [address] [place] [address] Care Team Providers Care Regional Marketing Manager Name Role Phone Pcp, No Primary Care Provider Oren Hull MD Primary Care Provider Sima Trejo MD Unavailable [phone] Encounter Details Date Type Department Care Team (Late st Contact Info) Description 05/26/2022 Orders Only [facility] [address] [place] [address] Sima Trejo MD [address] [address] Social History Tobacco Use Types [...] Description 11/07/2024 1:15 PM EDT Office Visit [facility] [place] [address] 11/07/2024 2:15 PM EDT Office Visit [facility] at [address] [place] [address] Sima Trjeo MD [address] [address] [phone] (work) documented as of this encounter Procedures Procedure Name Priority Date/Time Associated Diagnosis Comments CBC WITH AUTO DIFFERENTIAL Routine 05/26/2022 1:07 PM EST documented in this encounter Results * (ABNORMAL) CBC and Differential (05/26/2022 1:07 PM EST) External WBC 5.6 3.8 - 10.8 K/uL [facility] External Red Blood Cell (RBC) 4.06 3.80 - 5.20 M/uL [facility] External Hemoglobin 12.0 12.0 - 16.0 G/DL [facility] External Hematocrit 36.0 35.0 - 47.0 % [facility] External MCV 89 80 - 100 fL [facility] External MCH 30 26 - 35 PG [facility] External MCHC 33 32 - 36 G/DL [facility] External RDW 15.9(H) 11.0 - 15.0 % [facility] External Mean Platelet Volume 7.5 6.2 - 10.5 fL [facility] External Platelets 176 130 - 400 K/uL [facility] External Neutrophil# 3.3 1.6 - 8.4 K/uL [facility] External Lymphocyte# 1.7 0.4 - 5.1 K/uL [facility] External Absolute Monocyte (Abs [place]) 0.5 0.0 - 1.2 K/uL [facility] External Eosinophils# 0.1 0.0 - 0.8 K/uL [facility] External Baso# 0.0 0.0 - 0.3 K/uL [facility] External Neutrophils % 59.0 42.0 - 78.0 % [facility] External Lymphocyte % 30.6 11.0 - 47.0 % [facility] External Monocyte % 8.1 0.0 - 11.0 % [facility] External Eosinophil% 1.7 0.0 - 7.0 % [facility] External Basophil % 0.6 0.0 - 3.0 % [facility] External Nucleated RBC%-Auto 0.0 0.0 - 0.9 % [facility] External Nucleated RBC Absolute 0.00 Not Estab. K/uL [facility] 05/26/2022 1:07 PM EST 05/26/2022 1:20 PM EST Sima Trejo MD LAB BLOOD ORDERABLES Final Re sult [facility] [address] [place] [address], documented in this encounter Visit Diagnoses Not on filedocumented in this encounter Care Teams Regional Marketing Manager Relationship Specialty Start Date End Date Pcp, No [address] [place] [address] PCP - General 12/02/20 02/08/23 Oren Pressley MD [address] [place] [address] PCP - General Internal Medicine 02/09/23 Sima Trejo MD [address] [address] Medical Oncologist Hematology and Oncology 08/02/23 documented as of this encounter
--- OUTSIDE RECORDS SUMMARY | 2024-10-17 12:52 | XMS_ITS | Encounter Summary ---
Author Organization Healthcare Address [address] [place] [address] Care Team Providers Care Wildlife Biology Internship Name Role Phone Pcp, No Primary Care Provider Oren Hull MD Primary Care Provider [phone] Sima Trejo MD Unavailable [phone] Encounter Details Date Type Department Care Team (Late st Contact Info) Description 02/17/2022 Orders Only [facility] [place] [address] Sima Trejo MD [address] [address] Social History Tobacco Use Types [...] Office Visit [facility] [place] [address] 11/07/2024 2:15 PM EDT Office Visit [facility] at [address] [place] [address] Sima Trejo MD [address] [place] [address] [address] documented as of this encounter Procedures Procedure Name Priority Date/Time Associated Diagnosis Comments LACTATE DEHYDROGENASE, PLASMA Routine 02/17/2022 12:42 PM EDT documented in this encounter Results * Lactate Dehydrogenase, Plasma (02/17/2022 12:42 PM EDT) External LDH Lactate Dehydrogenase 163 135 - 233 U/L [facility] 02/17/2022 12:4 2 PM EDT 02/17/2022 12:54 PM EDT us Sima Trejo MD LAB BLOOD ORDERABLES Final Re sult [facility] [address] [place] [address], [place] [phone] documented in this encounter Visit Diagnoses Not on filedocumented in this encounter Care Teams Wildlife Biology Internship Relationship Specialty Start Date End Date Pcp, No [address] [place] [address] PCP - General 12/02/20 02/08/23 Oren Pressley MD [address] [place] [address] PCP - General Internal Medicine 02/09/23 Sima Trejo MD [address] [facility] [address] [place] [address] Medical Oncologist Hematology and Oncology 08/02/23 documented as of this encounter
--- OUTSIDE RECORDS SUMMARY | 2024-10-17 12:52 | XMS_ITS | Encounter Summary ---
Author Organization Healthcare Address [address] [place] [address] Care Team Providers Care Liquor Store Manager Name Role Phone Pcp, No Primary Care Provider Oren Hull MD Primary Care Provider Sima Trejo MD Unavailable [phone] Encounter Details Date Type Department Care Team (Late st Contact Info) Description 08/04/2021 Orders Only [facility] [address] [address] Sima Trejo MD [address] [address] Social History Tobacco Use Types [...] Description 11/07/2024 1:15 PM EDT Office Visit [facility] [address] [address] 11/07/2024 2:15 PM EDT Office Visit [facility] [address] [address] Sima Trejo MD [address] [place] [address] [address] documented as of this encounter Procedures Procedure Name Priority Date/Time Associated Diagnosis Comments LACTATE DEHYDROGENASE, PLASMA Routine 08/04/2021 12:43 PM EDT documented in this encounter Results * Lactate Dehydrogenase, Plasma (08/04/2021 12:43 PM EDT) External LDH Lactate Dehydrogenase 187 135 - 233 U/L [facility] 08/04/2021 12:4 3 PM EDT 08/04/2021 1:07 PM EDT us Sima Trejo MD LAB BLOOD ORDERABLES Final Re sult [facility] [address] [place] [address], [place] [phone] documented in this encounter Visit Diagnoses Not on filedocumented in this encounter Care Teams Liquor Store Manager Relationship Specialty Start Date End Date Pcp, No [address] [place] [address] PCP - General 12/02/20 02/08/23 Oren Pressley MD [address] [place] [address] PCP - General Internal Medicine 02/09/23 Sima Trejo MD [address] [facility] [address] [place] [address] Medical Oncologist Hematology and Oncology 08/02/23 documented as of this encounter
--- OUTSIDE RECORDS SUMMARY | 2024-10-17 12:52 | XMS_ITS | Encounter Summary ---
Author Organization [email or web address] ([place], [place], [place], [place]) Address [address] [place] [address] Care Team Providers Care Safety Instructor Name Role Phone Oren Pressley MD Primary Care Provider [phone] Encounter Details Date Type Department Care Team (Late st Contact Info) Description 05/16/2018 Transcribed Document [facility] Family [facility] [place] [address] ProviderLaurel MD [address] [place] [address] Social History Tobacco Use Types Packs/Day Years Used Date Smoking Tobacco: Never Assessed Comments Unknown Sex and Gender Information Value Date Recorded Sex Assigned at Not on file Legal Sex Female 4:44 PM CDT Gender Identity Not on file Sexual Orientation Not on file documented as of this encounter Miscellaneous Notes * Cerner Conversion Note - Historical ProviderMD - 05/16/2018 10:28 AM CHILD CARE LEADER Nursing Discharge Summary Entered On: 05/16/2018 10:29 EST Performed On: 05/16/2018 10:28 EST by KASSIDY SAWYER RN Discharge Documentation Discharge Date/Time : 05/16/2018 12:09 EST KASSIDY SAWYER RN - 05/16/2018 12:09 EST Patient Disposition, General : Discharge Discharge To : Home with ambulatory/outpatient follow-up Name of Receiving Facility/Provider : Liliya Horan Mode Of Departure, General Discharge : Ambulatory Accompanied By, Discharge : Son IV Discontinued : Yes Medications Given to Patient : No Personal Belongings With Patient : Yes Prescriptions Given to Patient : Yes Discharge Instructions Reviewed With, Opportunity For Questions Given : Patient, Son Patient Education Completed : Yes Number of Prescriptions Given : 1 Teaching Method : Demonstration, Explanation Teaching Evaluation : Returns demonstration, Verbalizes understanding Worker's Compensation Paperwork Completed : No Discharge, Comment : Keep all appointments KASSIDY SAWYER RN - 05/16/2018 10:28 EST Electronically signed by [facility] Conversion Contact Lens Fitter Cerner at 08/07/2022 2:09 PM CDT documented in this encounter Plan of Treatment Not on file documented as of this encounter Visit Diagnoses Not on filedocumented in this encounter Care Teams Safety Instructor Relationship Specialty Start Date End Date Oren Pressley MD [address] [place] [address] [place] [address] PCP - General Adolescent Medicine 05/17/23 documented as of this encounter
--- OUTSIDE RECORDS SUMMARY | 2024-10-17 12:52 | XMS_ITS | Encounter Summary ---
Author Organization [employer] ([place], [place], [place], [place]) Address [address] [place] [place] [address] Care Team Providers Care Cash Applications Analyst Name Role Phone Oren Pressley MD Primary Care Provider [phone] Encounter Details Date Type Department Care Team (Late st Contact Info) Description 05/16/2018 Transcribed Document [facility] Family Medicine [facility] [place] [address] ProviderLaurel MD [address] [place] [address] Social History Tobacco Use Types Packs/Day Years Used Date Smoking Tobacco: Never Assessed Comments Unknown Sex and Gender Information Value Date Recorded Sex Assigned at Not on file Legal Sex Female 4:44 PM CDT Gender Identity Not on file Sexual Orientation Not on file documented as of this encounter Miscellaneous Notes * Cerner Conversion Note - Historical MD Leyla - 05/16/2018 9:45 AM WATER PUMP ASSEMBLER DATE OF PROCEDURE: 05/16/2018 DIRECT CURRENT CARDIOVERSION IDENTIFICATION: Age, 72 years old. ATTENDING PHYSICIAN: Yasmany Vazquez MD PROCEDURE: Direct-current cardioversion. INDICATION: Atrial fibrillation. DESCRIPTION OF PROCEDURE: After having obtained a written consent, patient was brought to the procedure lab in a fasting condition. EKG and telemetry strip showed presence of atrial fibrillation. Patient was given 7 mg of Versed and 50 mg of fentanyl for conscious sedation. She was then cardioverted with 120 joules biphasic synchronized current, which cardioverted her to normal sinus rhythm. Patient tolerated the procedure well with no complications. She will be started on amiodarone 200 mg twice a day for one month followed by once a day. IMPRESSION: 1. Successful direct-current cardioversion converting atrial fibrillation to normal sinus rhythm. 2. No acute procedural related complications. Yasmany Vazquez M.D. Dict: 05/16/2018 09:45:54 Trans: 05/16/2018 11:04:35 CC1: Yasmany Vazquez M.D. Electronically signed by [facility] Conversion Mock Up Builder Cerner at 08/07/2022 2:19 PM CDT documented in this encounter Plan of Treatment Not on file documented as of this encounter Visit Diagnoses Not on filedocumented in this encounter Care Teams Cash Applications Analyst Relationship Specialty Start Date End Date Oren Pressley MD [address] [place] [address] PCP - General Adolescent Medicine 05/17/23 documented as of this encounter
--- OUTSIDE RECORDS SUMMARY | 2024-10-17 12:52 | XMS_ITS | Encounter Summary ---
Author Organization Healthcare Address [address] [place] [address] Care Team Providers Care Highway Painter Name Role Phone Pcp, No Primary Care Provider Oren Hull MD Primary Care Provider Sima Trejo MD Unavailable [phone] Encounter Details Date Type Department Care Team (Late st Contact Info) Description 02/17/2022 Orders Only [facility] [place] [address] Sima Trejo MD [address] [address] Social History Tobacco Use Types [...] Description 11/07/2024 1:15 PM EDT Office Visit [facility] [place] [address] 11/07/2024 2:15 PM EDT Office Visit [facility] at [address] [place] [address] Sima Trejo MD [address] [place] [address] [address] [phone] (work) documented as of this encounter Procedures Procedure Name Priority Date/Time Associated Diagnosis Comments COMPREHENSIVE METABOLIC PANEL, PLASMA Routine 02/17/2022 12:42 PM EDT documented in this encounter Results * (ABNORMAL) Comprehensive Metabolic Panel, Plasma (02/17/2022 12:42 PM EDT) External Glucose 98 74 - 100 mg/dL [facility] External BUN 21(H) 6 - 20 mg/dL [facility] External Creatinine Blood 1.34(H) 0.50 - 0.95 mg/dL [facility] External BUN/Creat Ratio 16 10 - 20 (calc) [facility] External Sodium 138 136 - 145 mmol/L [facility] External Potassium 4.0 3.4 - 5.0 mmol/L [facility] External Chloride 103 98 - 107 mmol/L [facility] External Carbon Dioxide 24 22 - 31 mmol/L [facility] External Anion Gap (AG) 11 7 - 25 (calc) [facility] External Calcium 9.1 8.6 - 10.2 mg/dL [facility] External Total Protein 6.9 6.4 - 8.3 g/dL [facility] External Albumin 4.2 3.5 - 5.2 g/dL [facility] External Globulin 2.7 1.5 - 4.5 g/dL (calc) [facility] External Albumin/Globulin Ratio 1.6 1.1 - 2.5 (calc) [facility] External Bilirubin Total 0.4 0.1 - 1.2 mg/dL [facility] External Alkaline Phosphatase 79 30 - 121 U/L [facility] External AST (SGOT) 17 0 - 32 U/L [facility] External ALT (SGPT) 15 0 - 33 U/L [facility] External Estimated GFR 40(A) >=60 [facility] Comment: NOTE New calculation for GFR (CKD-EPI 2020) is formulated without race adjustment factors at the recommendation of the National Kidney Foundation and [place] [employer]ph[employer]. This calculation has not been validated in women. For pediatric patients refer to https://www.kidney.org/professionals/KDOQI/gfr_calculatorPed 02/17/2022 12:4 2 PM EDT 02/17/2022 12:54 PM EDT us Sima Trejo MD LAB BLOOD ORDERABLES Final Re sult [facility] [address] [place] [address], documented in this encounter Visit Diagnoses Not on filedocumented in this encounter Care Teams Highway Painter Relationship Specialty Start Date End Date Pcp, No [address] [place] [address] PCP - General 12/02/20 02/08/23 Oren Pressley MD [address] [facility] [address] [place] [address] PCP - General Internal Medicine 02/09/23 Sima Trejo MD [address] [address] Medical Oncologist Hematology and Oncology 08/02/23 documented as of this encounter
--- OUTSIDE RECORDS SUMMARY | 2024-10-17 12:52 | XMS_ITS | Encounter Summary ---
Author Organization [employer] ([place], [place], [place], [place]) Address [address] [place] [address] Care Team Providers Care Network Management Specialist Name Role Phone Oren Pressley MD Primary Care Provider [phone] Encounter Details Date Type Department Care Team (Late st Contact Info) Description 05/16/2018 Transcribed Document [facility] Family [facility] [place] [address] ProviderLaurel MD [address] [place] [id number] Social History Tobacco Use Types Packs/Day Years Used Date Smoking Tobacco: Never Assessed Comments Unknown Sex and Gender Information Value Date Recorded Sex Assigned at Not on file Legal Sex Female 4:44 PM CDT Gender Identity Not on file Sexual Orientation Not on file documented as of this encounter Miscellaneous Notes * Cerner Conversion Note - Historical ProviderMD - 05/16/2018 10:29 AM CAFETERIA TABLE ATTENDANT Discharge Instructions Entered On: 05/16/2018 10:30 EST Performed On: 05/16/2018 10:29 EST by KASSIDY SAWYER RN DC Instructions HWD Stroke/TIA Discharge Ins : N/A Heart Failure Discharge Ins : N/A Warfarin Discharge Ins : N/A Diet After Discharge : Heart healthy diet Activity After Discharge : Rest and relax today Driving After Discharge : Other: No driving for 24 hours Showering/Bathing : May shower Wound/Incision Care After Discharge : Other: n/a Wound/Incision Care At Discharge Comment cision Care At Discharge Comment : n/a Special Instructions : Keep all appointments KASSIDY SAWYER RN - 05/16/2018 10:29 EST Electronically signed by [facility] Conversion Hoop Coiling Machine Operator Cerner at 08/07/2022 2:29 PM CDT documented in this encounter Plan of Treatment Not on file documented as of this encounter Visit Diagnoses Not on filedocumented in this encounter Care Teams Network Management Specialist Relationship Specialty Start Date End Date Oren Pressley MD [address] [place] [address] PCP - General Adolescent Medicine 05/17/23 documented as of this encounter
--- OUTSIDE RECORDS SUMMARY | 2024-10-17 12:52 | XMS_ITS | Encounter Summary ---
Author Organization Healthcare Address [address] [place] [address] Care Team Providers Care Hog Cutter Name Role Phone Pcp, No Primary Care Provider Oren Hull MD Primary Care Provider [phone] Sima Trejo MD Unavailable [phone] Encounter Details Date Type Department Care Team (Late st Contact Info) Description 02/17/2022 Orders Only [facility] [place] [address] Sima Trejo MD [address] [address] Social History Tobacco Use Types [...] Description 11/07/2024 1:15 PM EDT Office Visit [facility] [place] [address] 11/07/2024 2:15 PM EDT Office Visit [facility] at [address] [place] [address] Sima Trejo MD [address] [place] [address] [address] documented as of this encounter Procedures Procedure Name Priority Date/Time Associated Diagnosis Comments URIC ACID, PLASMA Routine 02/17/2022 12: 42 PM EDT documented in this encounter Results * (ABNORMAL) Uric Acid, Plasma (02/17/2022 12:42 PM EDT) External Uric Acid 7.5(H) 2.4 - 5.7 mg/dL [facility] Comment: Reference ranges are based on population norms and do not necessarily correlate with treatment targets. In patients with an established diagnosis of gout undergoing Urate Lowering Therapy (ULT), the 2012 [employer] Guidelines for Management of Gout recommend a target uric acid level of < 6 mg/dL in all patients, or lower in certain circumstances. Arthritis Care and Research Vol 64 No 10, Jan. 2012 [employer] 02/17/2022 12:4 2 PM EDT 02/17/2022 12:54 PM EDT us Sima Trejo MD LAB BLOOD ORDERABLES Final Re sult [facility] [address] [place] [address], documented in this encounter Visit Diagnoses Not on filedocumented in this encounter Care Teams Hog Cutter Relationship Specialty Start Date End Date Pcp, No [address] [place] [address] PCP - General 12/02/20 02/08/23 Oren Pressley MD [address] [place] [address] PCP - General Internal Medicine 02/09/23 Sima Trejo MD [address] [address] Medical Oncologist Hematology and Oncology 08/02/23 documented as of this encounter
--- OUTSIDE RECORDS SUMMARY | 2024-10-17 12:52 | XMS_ITS | Encounter Summary ---
Author Organization Healthcare Address [address] [place] [address] Care Team Providers Care Rip/Mould Operator Name Role Phone Pcp, No Primary Care Provider Oren Hull MD Primary Care Provider Sima Trejo MD Unavailable [phone] Encounter Details Date Type Department Care Team (Late st Contact Info) Description 02/17/2022 Orders Only [facility] [address] [place] [address] Sima Trejo MD [address] [address] Social History Tobacco Use Types [...] Description 11/07/2024 1:15 PM EDT Office Visit [facility] [address] [place] [address] 11/07/2024 2:15 PM EDT Office Visit [facility] [address] [place] [address] Sima Trejo MD [address] [place] [address] [address] [phone] (work) documented as of this encounter Procedures Procedure Name Priority Date/Time Associated Diagnosis Comments CBC WITH AUTO DIFFERENTIAL Routine 02/17/2022 12:42 PM EDT documented in this encounter Results * CBC and Differential (02/17/2022 12:42 PM EDT) External WBC 6.1 3.8 - 10.8 K/uL [facility] External Red Blood Cell (RBC) 4.03 3.80 - 5.20 M/uL [facility] External Hemoglobin 12.1 12.0 - 16.0 G/DL [facility] External Hematocrit 35.9 35.0 - 47.0 % [facility] External MCV 89 80 - 100 fL [facility] External MCH 30 26 - 35 PG [facility] External MCHC 34 32 - 36 G/DL [facility] External RDW 14.6 11.0 - 15.0 % [facility] External Mean Platelet Volume 7.3 6.2 - 10.5 fL [facility] External Platelets 180 130 - 400 K/uL [facility] External Neutrophil# 3.8 1.6 - 8.4 K/uL [facility] External Lymphocyte# 1.6 0.4 - 5.1 K/uL [facility] External Absolute Monocyte (Abs [place]) 0.5 0.0 - 1.2 K/uL [facility] External Eosinophils# 0.1 0.0 - 0.8 K/uL [facility] External Baso# 0.1 0.0 - 0.3 K/uL [facility] External Neutrophils % 62.4 42.0 - 78.0 % [facility] External Lymphocyte % 25.6 11.0 - 47.0 % [facility] External Monocyte % 9.0 0.0 - 11.0 % [facility] External Eosinophil% 2.0 0.0 - 7.0 % [facility] External Basophil % 1.0 0.0 - 3.0 % [facility] External Nucleated RBC%-Auto 0.0 0.0 - 0.9 % [facility] External Nucleated RBC Absolute 0.00 Not Estab. K/uL [facility] 02/17/2022 12:4 2 PM EDT 02/17/2022 12:53 PM EDT Sima Trejo MD LAB BLOOD ORDERABLES Final Re sult [facility] [address] [place] [address], documented in this encounter Visit Diagnoses Not on filedocumented in this encounter Care Teams Rip/Mould Operator Relationship Specialty Start Date End Date Pcp, No [address] [place] [address] PCP - General 12/02/20 02/08/23 Oren Pressley MD [address] [place] [address] PCP - General Internal Medicine 02/09/23 Sima Trejo MD [address] [address] Medical Oncologist Hematology and Oncology 08/02/23 documented as of this encounter
--- OUTSIDE RECORDS SUMMARY | 2024-10-17 12:52 | XMS_ITS | Encounter Summary ---
Author Organization [employer] ([place], [place], [place], [place]) Address [address] [place] [address] Care Team Providers Care Sales Assistant Institutional Sales Name Role Phone Oren Pressley MD Primary Care Provider [phone] Encounter Details Date Type Department Care Team (Late st Contact Info) Description 05/16/2018 Transcribed Document [facility] [place] [address] ProviderLaurel MD [address] [place] [address] [id number] Social History Tobacco Use Types Packs/Day Years Used Date Smoking Tobacco: Never Assessed Comments Unknown Sex and Gender Information Value Date Recorded Sex Assigned at Not on file Legal Sex Female 4:44 PM CDT Gender Identity Not on file Sexual Orientation Not on file documented as of this encounter Miscellaneous Notes * Cerner Conversion Note - Historical ProviderMD - 05/16/2018 8:38 AM PACKAGE CHECKER Pre Procedure Adult Entered On: 05/16/2018 8:45 EST Performed On: 05/16/2018 8:38 EST by KASSIDY SAWYER RN Height and Weight, Clinical Dosing Height Source : Stated Height Entry Format : Fitzpatrick Height, Feet : 5 ft(Converted to: 152 cm, 60 Inch) Height, Inches : 5.5 Inch(Converted to: 0 ft 6 Inch, 13.97 cm) Clinical Height : 166.37 cm Weight Source : Standing scale Weight Entry Format : Fitzpatrick Clinical Dosing Weight : 104.55 kg Weight, Pounds : 230 lb Body Surface Area (BSA) : 2.11 m2 Body Mass Index : 37.8 kg/m2 (HI) [place] Body Weight : 58 kg KASSIDY SAWYER RN - 05/16/2018 8:38 EST Health Histories Smoking Status : Former smoker, quit more than 30 days ago Smokeless Tobacco Status : Never KASSIDY SAWYER RN - 05/16/2018 8:38 EST Social History (As Of: 05/16/2018 08:45:38 EST) Tobacco: Former smokeless tobacco user, quit more than 30 days ago Smokeless Tobacco Status. Last Used: Quit 30 years ago. (Last Updated: 05/16/2018 08:39:55 EST by KASSIDY SAWYER RN) Infectious Disease History Infectious Disease History : None, Chicken pox/Shingles, Measles, Mumps Fever/Chills Last 48 Hours : No Travel To [place] with Travel Advisories : No Travel Outside [place] Within Last 30 Days : No Contact With Traveler to Advisory Region : No Exposure to Contagious Illness : No Tuberculosis Symptoms : None KASSIDY SAWYER RN - 05/16/2018 8:38 EST Anesthesia/Transfusion History Family History of Anesthesia Reaction : No prior transfusion(s) Transfusion History : Prior anesthesia without reaction Family History of Anesthesia Reaction : None KASSIDY SAWYER RN - 05/16/2018 8:38 EST Functional Assessment Living Situation : Home Patient Lives With : Alone Current Daily Living Assistance : None Sensory Deficits : None Mobility Assistance Prior to Admission : Independent DAMON Hx Falls Immediate/Within 3 Months : No Current Home Treatments : None KASSIDY SAWYER RN - 05/16/2018 8:38 EST Psychosocial History Does Someone Depend on You for Care? : No Do You Have a History of the Following? : Patient denies history Currently in Unsafe Situation : No Restraining Order Against Another Person : No Do You Have a Support System? : Yes Hospital/DC Financial Concerns : No Stressors Affecting Hospitalization/DC : No Tried to Harm Yourself in the Past? : No Thoughts of Harming/Killing Yourself : No KASSIDY SAWYER RN - 05/16/2018 8:38 EST Advance Directive Patient has Advance Directive *Q : No, patient refuses Advance Directive information KASSIDY SAWYER RN - 05/16/2018 8:38 EST Teaching/Learning Assessment Barriers To Learning : None evident Individuals Taught : Patient, Family member Readiness to Learn : Cooperative Baseline Knowledge of Topic : Good Readiness to Learn : Demonstration, Explanation Learning Style Preferences Patient : None Learning Style Preferences Family : None KASSIDY SAWYER RN - 05/16/2018 8:38 EST Education Topics, Periop Preadmission Perioperative Education Grid Arrival Time/Place : Verbalizes understanding, Returns demonstration CHG Preoperative Bathing/Cloths : Verbalizes understanding, Returns demonstration Falls : Verbalizes understanding, Returns demonstration Incentive Spirometry : Verbalizes understanding, Returns demonstration Infection Control : Verbalizes understanding, Returns demonstration IV's : Verbalizes understanding, Returns demonstration NPO Status/Directions : Verbalizes understanding, Returns demonstration Pain Management : Verbalizes understanding, Returns demonstration Postoperative Care Preparations : Verbalizes understanding, Returns demonstration Preprocedure Preparations : Verbalizes understanding, Returns demonstration Preprocedure Tests/Labs : Verbalizes understanding, Returns demonstration Responsible Adult : Verbalizes understanding, Returns demonstration Take/Hold Medications Pre-Procedure : Verbalizes understanding, Returns demonstration KASSIDY SAWYER RN - 05/16/2018 8:38 EST General Info Arrived From : Home Mode of Arrival on Unit : Ambulatory Legal Guardian : Son Legal Guardian : No Support Person/Patient School Psychologist Assistant : Yes Want Family/Rep/Phys Notified of Admit : No Emergency Contact #1 : Ender Emergency Contact #1 Emergency Contact #1 Relationship : son Emergency Contact #2 : n/a Emergency Contact #2 Phone Number : n/a Emergency Contact #2 Relationship : n/a Chief Complaint : CV Information Obtained From : Patient Primary Language : Paraguayan Preferred Communication Mode : Verbal Communication Barrier : None KASSIDY SAWYER RN - 05/16/2018 8:38 EST Vital Measurements Temperature Source : Temporal artery scanning Temperature Mode : Fahrenheit Temperature, Fahrenheit : 97.5 Deg F Clinical Temperature, C : 36.4 Deg C Pulse Method : Non-Invasive BP Device Peripheral Pulse Rate : 88 bpm Respiratory Rate : 18 Breaths/Min Blood Pressure Location : Arm, right upper Blood Pressure Source : Non-Invasive BP Device Blood Pressure Position : Sitting Systolic Blood Pressure : 191 mmHg (HI) Diastolic Blood Pressure : 88 mmHg Oxygen Saturation : 98 % Oxygen Therapy Mode : Room air KASSIDY SAWYER RN - 05/16/2018 8:38 EST Sleep Apnea Risk Assmt Hx of Obstructive Sleep Apnea Diagnosis : No Snore Loudly : Yes Tired, Fatigued, or Sleepy During Day : No Observed Stopping Breathing During Sleep : No Have/Are Being Treated for Hypertension : Yes STOP Sleep Apnea Risk Level Score : 2 STOP Sleep Apnea Risk Level : High KASSIDY SAWYER RN - 05/16/2018 8:38 EST Constantino Scale Constantino Sensory Perception : Slightly limited Constantino Moisture : Moist Constantino Activity : Walks occasionally Constantino Mobility : No limitation Constantino Nutrition : Probably inadequate Constantino Friction and Shear : No apparent problem Constantino Score : 17 KASSIDY SAWYER RN - 05/16/2018 8:38 EST Pain Assessment Pain Assessment : Initial assessment Pain Scale Used : 0-10 Scale KASSIDY SAWYER RN - 05/16/2018 8:38 EST Fall Risk Scales ABCs Fall Injury Risk Identification : Coagulation ABC Fall Injury Risk : Moderate to high injury risk Injury Moderate to High Risk Interventions : Patient room close to nurses station, Supervise toileting as indicated, Transport methods appropriate to patient, Visual cues in place, Other: Familywith patient DAMON Hx Falls Immediate/Within 3 Months : No Damon Secondary Diagnosis : No DAMON Use of Ambulatory Aid : None DAMON IV Therapy or IV Access : Yes Damon Gait/Transferring : Normal, bedrest, immobile Damon Mental Status : Oriented to own ability Damon Fall Risk Score : 20 DAMON Fall Scale Risk Level : 0-24 Low Risk Silvis Fall Interventions : Adequate lighting, Assistive devices within reach, Bed in low position, Call device within reach, Fall prevention handout/education per facility policy, Frequent orientation to call device, Frequent orientation to surroundings, Hourly comfort/safety rounds, Non-slip footwear, Personal items within reach, Reinforced to call for assistance before getting out of bed, Room free of clutter/spills, Upper side-rails up, Wheels locked, Wires/Cords secured Fall Risk Scale Calc Temp : 0 KASSIDY SAWYER RN - 05/16/2018 8:38 EST Valuables and Belongings Valuables and Belongings : Clothing Clothing : Common streetwear Clothing Disposition : Bedside Belongings Disposition Comment : Valuables with son KASSIDY SAWYER RN - 05/16/2018 8:38 EST Pain Scale Intensity : 0 KASSIDY SAWYER RN - 05/16/2018 8:38 EST Image 4 - Images currently included in the form version of this document have not been included in the text rendition version of the form. documented in this encounter Plan of Treatment Not on file documented as of this encounter Visit Diagnoses Not on filedocumented in this encounter Care Teams Sales Assistant Institutional Sales Relationship Specialty Start Date End Date Oren Pressley MD [address] [place] [address] PCP - General Adolescent Medicine 05/17/23 documented as of this encounter
--- OUTSIDE RECORDS SUMMARY | 2024-10-17 12:52 | XMS_ITS | Encounter Summary ---
Author Organization Healthcare Address [address] [place] [address] Care Team Providers Care Senior Reactor Operator Name Role Phone Pcp, No Primary Care Provider Oren Hull MD Primary Care Provider Sima Trejo MD Unavailable [phone] Encounter Details Date Type Department Care Team (Late st Contact Info) Description 05/26/2022 Orders Only [facility] [address] Sima Trejo MD [address] [address] Social History Tobacco Use Types [...] Description 11/07/2024 1:15 PM EDT Office Visit [facility] [address] 11/07/2024 2:15 PM EDT [facility] [address] [place] [address] Sima Trejo MD [address] [place] [address] [address] documented as of this encounter Procedures Procedure Name Priority Date/Time Associated Diagnosis Comments LACTATE DEHYDROGENASE, PLASMA Routine 05/26/2022 1:07 PM EST documented in this encounter Results * Lactate Dehydrogenase, Plasma (05/26/2022 1:07 PM EST) External LDH Lactate Dehydrogenase 155 135 - 233 U/L [facility] 05/26/2022 1:07 PM EST 05/26/2022 1:19 PM EST us Sima Trejo MD LAB BLOOD ORDERABLES Final Re sult [facility] [address] [place] [address], [place] [phone] documented in this encounter Visit Diagnoses Not on filedocumented in this encounter Care Teams Senior Reactor Operator Relationship Specialty Start Date End Date Pcp, No [address] [place] [address] PCP - General 12/02/20 02/08/23 Oren Pressley MD [address] [place] [address] PCP - General Internal Medicine 02/09/23 Sima Trejo MD [address] [address] Medical Oncologist Hematology and Oncology 08/02/23 documented as of this encounter
--- OUTSIDE RECORDS SUMMARY | 2024-10-17 12:52 | XMS_ITS | Encounter Summary ---
Author Organization [employer] ([place], [place], [place], [place]) Address [address] [place] [address] Care Team Providers Care Chief Ii Dispatcher Name Role Phone Oren Corbin MD Primary Care Provider [phone] Encounter Details Date Type Department Care Team (Late st Contact Info) Description 05/16/2018 Transcribed Document [facility] [place] [facility] [place] [address] ProviderLaurel MD [address] [place] [address] Social History Tobacco Use Types Packs/Day Years Used Date Smoking Tobacco: Never Assessed Comments Unknown Sex and Gender Information Value Date Recorded Sex Assigned at Not on file Legal Sex Female 4:44 PM CDT Gender Identity Not on file Sexual Orientation Not on file documented as of this encounter Miscellaneous Notes * Cerner Conversion Note - Laurel ProviderMD - 05/16/2018 12:04 PM 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 Current Date: 05/16/2018 12:04:39 : 1945 Patient Address: [place] [address] Patient Attending Physician: TAMIKO NIETO MD-DMITRY Primary Care Provider: OREN CORBIN (REF)DELILAH Primary Care Provider Discharge Diagnosis: Atrial fibrillation Weight on Admission: 230 lb, 0 oz Comment: Follow-up Instructions: With: Address: When: GIOVANNI SHAH [address], [place] [address] Business (1) 9:45 AM Discharge Instructions: Diet after Discharge: Heart healthy diet Activity after Discharge: Rest and relax today Driving after Discharge: Other: No driving for 24 hours Showering/Bathing:May shower Wound/Incision Care after Discharge: Other: n/a Wound/Incision Care after Discharge Comment: n/a Immunizations Documented During Stay: No Immunizations Found Worker's Compensation Paperwork Completed: No Special Instructions: Keep all appointments Heart Failure Discharge Instructions (if any): Stroke Related Discharge Instructions (if any): Warfarin Related Discharge Instructions (if any): Final Medication List: Other Medications amiodarone (amiodarone 200 mg oral tablet) 1 Tablet(s) Oral Two Times A Day. bisoprolol-hydrochlorothiazide (bisoprolol-hydroCHLOROthiazide 2.5 mg-6.25 mg oral tablet) Oral Two Times A Day. buPROPion (buPROPion 150 mg/24 hours (XL) oral tablet, extended release) Oral Interval Every 24 Hours. clonazePAM (KlonoPIN 0.5 mg oral tablet) Oral At Bedtime. dilTIAZem (DilTIAZem Hydrochloride CD 180 mg/24 hours oral capsule, extended release) 1 Capsule(s) Oral Every Day. ibrutinib (Imbruvica 280 mg oral tablet) Oral Every Day. PARoxetine (PARoxetine 40 mg oral tablet) Oral Every Day. rosuvastatin (rosuvastatin 5 mg oral tablet) 1 Tablet(s) Oral Every Day. warfarin (warfarin 2.5 mg oral tablet) Oral Every Day. Mon, Wed. warfarin (warfarin 5 mg oral tablet) Oral Every Day. , Th, Sat, Sun. Patient Allergies: statins Medication Instructions: Take your medications faithfully. Do NOT skip [...] cramping, rapid heartbeat, difficulty sleeping, and nervousness. Patient education materials: Moderate Conscious Sedation, Adult, Care After These [...] you are awake and alert. ??? Take ulot-mag-idcdckn and prescription medicines only as told by [...] 01/24/2014 Document Revised: 09/07/2016 Document Reviewed: 07/25/2016 [employer] Interactive Patient Education ? 2017 [employer] Electrical Cardioversion, Care After This sheet gives [...] to help you relax (sedative). ??? Take ulal-wrd-iqnxrcg and prescription medicines only as told by [...] 01/24/2014 Document Revised: 11/06/2016 Document Reviewed: 10/09/2016 [employer] Interactive Patient Education ? 2017 [employer]. Medication Leaflets: amiodarone (oral) (A mi [place] da dane) Pacerone What is the most important information I should know about amiodarone? Amiodarone is for use only in treating life-threatening heart rhythm disorders. You should not take this medicine if you are allergic to amiodarone or iodine, or if you have heart block, a history of slow heartbeats that have caused you to faint, or if your heart cannot pump blood properly. Amiodarone can cause dangerous side effects on your heart, liver, lungs, or vision. Call your doctor or get medical help at once if you have: chest pain, fast or pounding heartbeats, trouble breathing, vision problems, upper stomach pain, vomiting, dark urine, jaundice (yellowing of the skin or eyes), or if you cough up blood. What is amiodarone? Amiodarone affects the rhythm of your heartbeats. Amiodarone is used to help keep the heart beating normally in people with life-threatening heart rhythm disorders of the ventricles (the lower chambers of the heart that allow blood to flow out of the heart). Amiodarone is used to treat ventricular tachycardia or ventricular fibrillation. Amiodarone is for use only in treating life-threatening heart rhythm disorders. Amiodarone may also be used for purposes not listed in this medication guide. What should I discuss with my healthcare provider before taking amiodarone? You should not use this medicine if you are allergic to amiodarone or iodine, or if you have: ? a serious heart condition called 'AV block' (2nd or 3rd degree), unless you have a pacemaker; ?? a history of slow heartbeats that have caused you to faint; or ?? if your heart cannot pump blood properly. Amiodarone can cause dangerous side effects on your heart, liver, lungs, or thyroid. Tell your doctor if you have ever had: ? asthma or another lung disorder; ?? liver disease; ?? a thyroid disorder; ?? vision problems; ?? high or low blood pressure; ?? an electrolyte imbalance (such as low levels of potassium or magnesium in your blood); or ?? if you have a pacemaker or defibrillator implanted in your chest. Taking amiodarone during may harm an unborn baby, or cause thyroid problems or abnormal heartbeats in the baby after it is born. Amiodarone may also affect the child's growth or development (speech, movement, academic skills) later in life. Tell your doctor if you are or if you become . You should not breast-feed while taking amiodarone, and for several months after stopping. Amiodarone takes a long time to clear from your body. Talk to your doctor about the best way to feed your baby during this time. How should I take amiodarone? Follow all directions on your prescription label and read all medication guides or instruction sheets. Your doctor may occasionally change your dose. Use the medicine exactly as directed. You will receive your first few doses in a hospital setting, where your heart rhythm can be monitored. If you have been taking another heart rhythm medicine, you may need to gradually stop taking it when you start using amiodarone. Follow your doctor's dosing instructions very carefully. You may take amiodarone with or without food, but take it the same way each time. It may take up to 3 weeks before your heart rhythm improves. Keep using the medicine as directed even if you feel well. Amiodarone can have long lasting effects on your body. You may need frequent medical tests while using this medicine and for several months after your last dose. If you need surgery (including laser eye surgery), tell the surgeon ahead of time that you are using amiodarone. This medicine can affect the results of certain medical tests. Tell any doctor who treats you that you are using amiodarone. Store at room temperature away from moisture, heat, and light. What happens if I miss a dose? Skip the missed dose and use your next dose at the regular time. Do not use two doses at one time. What happens if I overdose? Seek emergency medical attention or call the Poison Help line at . An overdose of amiodarone can be fatal. Overdose symptoms may include weakness, slow heart rate, feeling light-headed, or loss of consciousness. What should I avoid while taking amiodarone? Avoid driving or hazardous activity until you know how this medicine will affect you. Your reactions could be impaired. Grapefruit may interact with amiodarone and lead to unwanted side effects. Avoid the use of grapefruit products. Avoid taking an herbal supplement containing Maria Luz's wort. Amiodarone could make you sunburn more easily. Avoid sunlight or tanning beds. Wear protective clothing and use sunscreen (SPF 30 or higher) when you are outdoors. What are the possible side effects of amiodarone? Get emergency medical help if you have signs of an allergic reaction: hives; difficulty breathing; swelling of your face, lips, tongue, or throat. Amiodarone takes a long time to completely clear from your body. You may continue to have side effects from amiodarone after you stop using it. Call your doctor at once if you have any of these side effects, even if they occur up to several months after you stop using amiodarone: ? wheezing, cough, chest pain, cough with bloody mucus, fever; ?? a new or a worsening irregular heartbeat pattern (fast, slow, or pounding heartbeats); ?? a light-headed feeling, like you might pass out; ?? blurred vision, seeing halos around lights (your eyes may be more sensitive to light); ?? liver problems--nausea, vomiting, stomach pain (upper right side), tiredness, dark urine, jaundice (yellowing of the skin or eyes); ?? nerve problems--loss of coordination, muscle weakness, uncontrolled muscle movement, or a prickly feeling in your hands or lower legs; ?? signs of overactive thyroid--weight loss, thinning hair, feeling hot, increased sweating, tremors, feeling nervous or irritable, irregular menstrual periods, swelling in your neck (goiter); or ?? signs of underactive thyroid--weight gain, tiredness, depression, trouble concentrating, feeling cold. Common side effects may include: ? nausea, vomiting, loss of appetite; or ?? constipation. This is not a complete list of side effects and others may occur. Call your doctor for medical advice about side effects. You may report side effects to FDA at 9-766-BZS-8780. What other drugs will affect amiodarone? Sometimes it is not safe to use certain medications at the same time. Some drugs can affect your blood levels of other drugs you take, which may increase side effects or make the medications less effective. Amiodarone takes a long time to completely clear from your body. Drug interactions are possible for up to several months after you stop using amiodarone. Talk to your doctor before taking any medication during this time. Keep track of how long it has been since your last dose of amiodarone. Many drugs can affect amiodarone. This includes prescription and olkf-zhn-fecbcaa medicines, vitamins, and herbal products. Not all possible interactions are listed here. Tell your doctor about all your current medicines and any medicine you start or stop using. Where can I get more information? Your doctor or pharmacist can provide more information about amiodarone. Remember, keep this and all other medicines out of the reach of children, never share your medicines with others, and use this medication only for the indication prescribed. Every effort has been made to ensure that the information provided by [employer]. ('[employer]') is accurate, up-to-date, and complete, but no guarantee is made to that effect. Drug information contained herein may be time sensitive. [employer] information has been compiled for use by healthcare practitioners and consumers in the [place] and therefore [employer] does not warrant that uses outside of the [place] are appropriate, unless specifically indicated otherwise. [employer] drug information does not endorse drugs, diagnose patients or recommend therapy. [employer] drug information is an informational resource designed [...] effective or appropriate for any given patient. [employer] does not assume any responsibility for any aspect of healthcare administered with the aid of information [employer] provides. The information contained herein is not intended to cover all possible uses, directions, precautions, warnings, drug interactions, allergic reactions, or adverse effects. If you have questions about the drugs you are taking, check with your doctor, nurse or pharmacist. Copyright 2167-8369 [employer]. Version: 7.01. Revision Date: 02/22/2018. CIGARETTE SMOKING: The facts are clear, cigarette smoking will shorten your life. Smoking can cause many illnesses along the way. As a healthcare provider, we recommend that you stop smoking. Assistance with quitting is available by contacting 7-313-YEWR-NOW. This is a free resource providing counseling, support, and referral. Or you may contact your personal physician. STROKE is an EMERGENCY Every [employer] ACT F.A.S.T! FACE ?? Facial droop ?? Uneven smile ARM ?? Arm numbness ?? Arm weakness SPEECH ?? Slurred speech ?? Difficulty speaking or understanding TIME ?? Call 911 and get to the hospital immediately Have the ambulance go to the nearest stroke center. STROKE Risk Factors High blood pressure High cholesterol Heart Disease Diabetes Smoking Heavy alcohol use Physical inactivity and obesity Atrial Fibrillation (irregular heartbeat) Family history of stroke Reminder: Be sure to sign up for the [employer] patient portal, which gives you 09/11 access to your medical information ??? including these discharge instructions ??? using your computer, smartphone, or tablet. Just go to [employer] to get started. Questions? Call . [facility] would like to thank you for allowing us to assist you with your healthcare needs. CARL Hopson PRISCILLA SMI, (or malt liquors sales representative) have received the above patient education materials/instructions and have verbalized understanding: Patient Signature _ Date/Time Patient Hop Separator Signature (if needed) Date/Time Clinician/Hospital Hop Separator Signature (if needed) Date/Time Electronically signed by Interface, [facility] Conversion Package Sealer Cerner at 08/07/2022 2:27 PM CDT documented in this encounter Plan of Treatment Not on file documented as of this encounter Visit Diagnoses Not on filedocumented in this encounter Care Teams Chief Ii Dispatcher Relationship Specialty Start Date End Date Oren Corbin MD [address] [place] [id number] PCP - General Adolescent Medicine 05/17/23 documented as of this encounter
--- OUTSIDE RECORDS SUMMARY | 2024-10-17 12:52 | XMS_ITS | Encounter Summary ---
Author Organization [employer] ([place], [place], [place], [place]) Address [address] [place] [address] Care Team Providers Care Patient Access Name Role Phone Oren Corbin MD Primary Care Provider [phone] Encounter Details Date Type Department Care Team (Late st Contact Info) Description 05/16/2018 Transcribed Document [facility] [place] [address] ProviderLaurel MD [address] [place] [address] Social History Tobacco Use Types Packs/Day Years Used Date Smoking Tobacco: Never Assessed Comments Unknown Sex and Gender Information Value Date Recorded Sex Assigned at Not on file Legal Sex Female 4:44 PM CDT Gender Identity Not on file Sexual Orientation Not on file documented as of this encounter Miscellaneous Notes * Cerner Conversion Note - Laurel ProviderMD - 05/16/2018 10:30 AM 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, SE[place] CARDIOLOGY [place] [id number] Business (1) Within 1 month Discharge Instructions: Diet after Discharge: Heart healthy [...] mg oral tablet) Oral Every Day. , , Sat, Sun. Patient Allergies: statins Medication Instructions: [...] you are awake and alert. ??? Take xefn-rdx-mlazqzz and prescription medicines only as told by [...] 01/24/2014 Document Revised: 09/07/2016 Document Reviewed: 07/25/2016 [employer] Interactive Patient Education ? 2017 [employer]. Electrical Cardioversion, Care After This sheet [...] to help you relax (sedative). ??? Take llwc-hir-odzcozp and prescription medicines only as told by [...] 01/24/2014 Document Revised: 11/06/2016 Document Reviewed: 10/09/2016 [employer] Interactive Patient Education ? 2017 [employer]. Medication Leaflets: amiodarone (oral) (A mi [place] darin vela) Pacerone What is the most important information [...] products. Avoid taking an herbal supplement containing [place]'s wort. Amiodarone could make you sunburn more [...] may report side effects to FDA at 0-971-UGZ-9265. What other drugs will affect amiodarone? Sometimes [...] can affect amiodarone. This includes prescription and fpea-giw-wbtaumh medicines, vitamins, and herbal products. Not all [...] to ensure that the information provided by [employer]. ('[employer]') is accurate, up-to-date, and complete, but no guarantee is made to that effect. Drug information contained herein may be time sensitive. [employer] information has been compiled for use by healthcare practitioners and consumers in the [place] and therefore [employer] does not warrant that uses outside of the [place] are appropriate, unless specifically indicated otherwise. [employer] drug information does not endorse drugs, diagnose patients or recommend therapy. [employer] drug information is an informational resource designed [...] effective or appropriate for any given patient. [employer] does not assume any responsibility for any aspect of healthcare administered with the aid of information [employer] provides. The information contained herein is not intended to cover all possible uses, directions, precautions, warnings, drug interactions, allergic reactions, or adverse effects. If you have questions about the drugs you are taking, check with your doctor, nurse or pharmacist. Copyright 8537-9475 [employer] Version: 7.01. Revision Date: 02/22/2018. CIGARETTE SMOKING: The facts are clear, cigarette smoking will shorten your life. Smoking can cause many illnesses along the way. As a healthcare provider, we recommend that you stop smoking. Assistance with quitting is available by contacting 6-738-XTTK-NOW. This is a free resource providing counseling, [...] Be sure to sign up for the [employer] patient portal, which gives you 09/11 access to your medical information ??? including these discharge instructions ??? using your computer, smartphone, or tablet. Just go to [employer] to get started. Questions? Call . [facility] would like to thank you for allowing us to assist you with your healthcare needs. CARL Hopson PRISCILLA SMI, (or ocean import representative) have received the above patient education materials/instructions and have verbalized understanding: Patient Signature _ Date/Time Patient Baggage Agent Supervisor Signature (if needed) Date/Time Clinician/Hospital Baggage Agent Supervisor Signature (if needed) Date/Time Electronically signed by Interface, [facility] Conversion Poker Dealer Cerner at 08/07/2022 2:22 PM CDT documented in this encounter Plan of Treatment Not on file documented as of this encounter Visit Diagnoses Not on filedocumented in this encounter Care Teams Patient Access Relationship Specialty Start Date End Date Oren Corbin MD [address] [place] [id number] PCP - General Adolescent Medicine 05/17/23 documented as of this encounter
== END 2024-10-17 23:59 | disposition home or self-care (01) ==
LOC: RAD 12:49
PROVIDERS: PCP Nurse Practitioner Family; Visit Provider Internal Medicine Hematology & Oncology
DX: R59.0 Localized enlarged lymph nodes (principal); R91.1 Solitary pulmonary nodule; R91.8 Other nonspecific abnormal finding of lung field; Z85.72 Personal history of non-Hodgkin lymphomas
CPT/HCPCS: 70490; 71250; 74176

== ENCOUNTER 2025-01-19 14:20 | Outpatient (CLI) | payer MEDICARE, SELFPAY ==
--- OUTSIDE RECORDS SUMMARY | 2024-12-12 11:15 | XMS_ITS | Encounter Summary ---
Author Organization [facility] Address [address] 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) Sima Costa MD [address] [place] [phone] Phone: tel: fax: Sima Costa MD [address] [place] [phone] Phone: tel: fax: Referral ID Status Reason Start Date Expiration Date V isits Requested Visits Authorized [id number] Authorized 11/14/2024 05/16/2026 1 7 Encounter Details Date Type Department Care Team (Late st Contact Info) Description 12/12/2024 11:15 AM EDT Office Visit [facility] at [facility] [address] [place] [address] iSma Costa MD [address] [place] [phone] 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 Pt is s/p 02/15/23 right tonsillectomy of [...] recommendation of the National Kidney Foundation and [employer]. This calculation has not [...] undergoing Urate Lowering Therapy (ULT), the 2012 [employer] Guidelines for Management of Gout recommend a target uric acid level of < 6 mg/dL in all patients, or lower in certain circumstances. Arthritis Care and Research Vol 64 No 10, Jan. 2011 [employer] Infusion on 11/14/2024 Component [...] Team (Late st Contact Info) Description 02/06/2025 10:30 AM EDT Office Visit [facility] at [facility] [address] [place] [address] 02/06/2025 11:30 AM EDT Office Visit [facility] at [facility] [address] [place] [address] Sima Costa MD [address] [phone] 02/06/2025 12:00 PM EDT Infusion [facility] at [facility] [address] [place] [address] documented as of this encounter Results * (ABNORMAL) Comprehensive metabolic panel (01/09/2025 10:50 AM EDT) External Glucose 128(H) 74 - 100 mg/dL 01/09/2025 11:44 AM EDT [facility] External BUN 14 6 - 20 mg/dL 01/09/2025 11:44 AM EDT [facility] External Creatinine Blood 1.41(H) 0.50 - 0.95 mg/dL 01/09/2025 11:44 AM EDT [facility] External BUN/Creat Ratio 10 10 - 20 (calc) 01/09/2025 11:44 AM EDT [facility] External Sodium 135(L) 136 - 145 mmol/L 01/09/2025 11:44 AM EDT [facility] External Potassium 4.1 3.4 - 5.0 mmol/L 01/09/2025 11:44 AM EDT [facility] External Chloride 101 98 - 107 mmol/L 01/09/2025 11:44 AM EDT [facility] External Carbon Dioxide (CO2) 22 22 - 31 mmol/L 01/09/2025 11:44 AM EDT [facility] External Anion Gap (AG) 12 7 - 25 (calc) 01/09/2025 11:44 AM EDT [facility] External Calcium 9.0 8.6 - 10.2 mg/dL 01/09/2025 11:44 AM EDT [facility] External Total Protein 6.1(L) 6.4 - 8.3 g/dL 01/09/2025 11:44 AM EDT [facility] External Albumin 4.0 3.5 - 5.2 g/dL 01/09/2025 11:44 AM EDT [facility] External Globulin 2.1 1.5 - 4.5 025 11:44 AM EDT [facility] External Albumin/Globulin Ratio 1.9 1.1 - 2.5 (calc) 01/09/2025 11:44 AM EDT [facility] External Bilirubin Total 0.6 0.1 - 1.0 mg/dL 01/09/2025 11:44 AM EDT [facility] Comment:NOTE: New reference range. External Alkaline Phosphatase 78 30 - 121 U/L 01/09/2025 11:44 AM EDT [facility] External AST (SGOT) 19 0 - 32 U/L 01/09/2025 11:44 AM EDT [facility] External ALT (SGPT) 13 0 - 33 U/L 01/09/2025 11:44 AM EDT [facility] External Estimated GFR 37(A) >=60 01/09/2025 11:44 AM EDT [facility] Comment: NOTE New calculation for GFR (CKD-EPI 2020) is formulated without race adjustment factors at the recommendation of the National Kidney Foundation and [employer]. This calculation has not been validated in women. For pediatric patients refer to https://www.kidney.org/professionals/KDOQI/gfr_calculatorPed Blood Venous blood specimen / Unknown 01/09/2025 10:50 AM EDT 01/09/2025 11:16 AM EDT us Sima Costa MD LAB BLOOD ORDERABLES Final Re sult [facility] [place] [address], * (ABNORMAL) CBC and differential (01/09/2025 10:50 AM EDT) External WBC 6.8 3.8 - 10.8 10*3/uL 01/09/2025 11:55 AM EDT [facility] External Red Blood Cell (RBC) 3.61(L) 3.80 - 5.20 10*6/uL 01/09/2025 11:55 AM EDT [facility] External Hemoglobin 11.0(L) 12.0 - 16.0 g/dL 01/09/2025 11:55 AM EDT [facility] External Hematocrit 33.1(L) 35.0 - 47.0 % 01/09/2025 11:55 AM EDT [facility] External MCV 92 80 - 100 fL 01/09/2025 11:55 AM EDT [facility] External MCH 31 26 - 35 pg 01/09/2025 11:55 AM EDT [facility] External MCHC 33 32 - 36 g/dL 01/09/2025 11:55 AM EDT [facility] External RDW 17.4(H) 11.0 - 15.0 % 01/09/2025 11:55 AM EDT [facility] External Mean Platelet Volume 7.3 6.2 - 10.5 fL 01/09/2025 11:55 AM EDT [facility] External Platelet Count (Plt) 123(L) 150 - 400 10*3/uL 01/09/2025 11:55 AM EDT [facility] External Neutrophil# 2.7 1.6 - 8.4 10*3/uL 01/09/2025 11:55 AM EDT [facility] External Lymphocyte# 3.5 0.4 - 5.1 10*3/uL 01/09/2025 11:55 AM EDT [facility] External Absolute Monocyte (Abs [place]) 0.3 0.0 - 1.2 10*3/uL 01/09/2025 11:55 AM EDT [facility] External Eosinophils# 0.2 0.0 - 0.8 10*3/uL 01/09/2025 11:55 AM EDT [facility] External Baso# 0.0 0.0 - 0.3 10*3/uL 01/09/2025 11:55 AM EDT [facility] External Neutrophils % 39.0(L) 42.0 - 78.0 % 01/09/2025 11:55 AM EDT [facility] External Lymphocyte % 52.0(H) 11.0 - 47.0 % 01/09/2025 11:55 AM EDT [facility] External Monocyte % 5.0 0.0 - 11.0 % 01/09/2025 11:55 AM EDT [facility] External Eosinophil% 3.0 0.0 - 7.0 % 01/09/2025 11:55 AM EDT [facility] External Basophil % 0.0 0.0 - 3.0 % 01/09/2025 11:55 AM EDT [facility] External Nucleated RBC%-Auto 0.2 0.0 - 0.9 % 01/09/2025 11:55 AM EDT [facility] External Nucleated RBC Absolute 0.01 Not Estab. 10*3/uL 01/09/2025 11:55 AM EDT [facility] Blood Venous blood specimen / Unknown 01/09/2025 10:50 AM EDT 01/09/2025 11:16 AM EDT us Sima Costa MD LAB BLOOD ORDERABLES Final Re sult Performing Organization Address City/State/[facility] Co de Phone Number [facility] [address] [place] [address], documented in this encounter Visit Diagnoses Diagnosis 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 ([facility])- Primary Chronic lymphoid leukemia, in relapse documented in this encounter Additional Health Concerns Assessment Noted Time PHQ-9 Depression Total Score: 5 11/15/19 25 9:00 AM EDT A fall risk assessment has been complete d for the patient 08/08/2024 2:12 PM EDT documented as of this encounter Care Teams Core Drilling Supervisor Relationship Specialty Start Date End Date Oren Pressley MD [address] [place] [address] PCP - General Internal Medicine 02/09/23 Sima Costa MD [address] [place] [address] Medical Oncologist Hematology and Oncology 08/02/23 documented as of this encounter
--- OUTSIDE RECORDS SUMMARY | 2024-12-12 11:30 | XMS_ITS | Encounter Summary ---
Author Organization [facility] Address [address] 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) Sima Trejo MD [address] [place], [place] [address] [address] [address] Phone: tel: fax: Sima Trejo MD [address] [address] Phone: tel: fax: Referral ID Status Reason Start Date Expiration Date V isits Requested Visits Authorized [id number] Authorized 11/14/2024 05/16/2026 1 7 Encounter Details Date Type Department Care Team (Late st Contact Info) Description 12/12/2024 11:30 AM EDT Infusion [facility] at [facility] [address] [place] [phone] 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) [...] Description 02/06/2025 10:30 AM EDT Office Visit [facility] [address] [place] [address] 02/06/2025 11:30 AM EDT Office Visit [facility] at [facility] [address] [place] [address] Sima Trejo MD [address] [phone] 02/06/2025 12:00 PM EDT Infusion [facility] at [facility] [address] [place] [address] documented as of this encounter Visit Diagnoses Diagnosis 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 ([facility]/H[facility])- Primary Chronic lymphoid leukemia, in relapse documented in this encounter Administered Medications Inactive Administered Medications - up to 3 most recent administrations Medication Order MAR Action Action Date Dose Rate Site acetaminophen (Tylenol) tablet 650 mg 650 mg, Oral, Once, 1 dose, On Wed12/12/24 at 1230, RoutineIndications: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 ([facility]/H[facility]) Given 12/12/2024 12:18 PM EDT 650 mg dexamethasone (Decadron) tablet 12 mg 12 mg, Oral, Once, 1 dose, On Wed12/12/24 at 1230, RoutineIndications: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 ([facility]) Given 12/12/2024 12:18 PM EDT 12 mg diphenhydrAMINE (Benadryl) tablet 50 mg 50 mg, Oral, Once, 1 dose, On Wed12/12/24 at 1230, RoutineIndications: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 ([facility]) Given 12/12/2024 12:18 PM EDT 50 mg ondansetron ODT (Zofran-ODT) disintegrating tablet 16 mg 16 mg, Oral, Once, 1 dose, On Wed12/12/24 at 1230, RoutineIndications: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 ([facility]) Given 12/12/2024 12:18 PM EDT 16 mg riTUXimab-arrx (Riabni) 700 mg in sodium chloride 0.9 % 500 mL IVPB 700 mg (rounded from 731.25 mg = 375 mg/m2 1.95 m2 Treatment Plan BSA from Recorded weight), Intravenous, Once, Concentration: 1.1 mg/mL (ATV: 615 mL) Rapid Rate: 273 mg/rn=592 mL/hr for 30 min (VTBI: 124 mL) 555 mg/xe=380 mL/hr for 60 min (VTBI: 491 mL) Refer to hypersensitivity protocol for rate changes if intolerance or adverse reaction. Specific administration requirements refer to A14-065. Refer to hypersensitivity protocol for rate changes if intolerance or adverse reaction, On Wed12/12/24 at 1300, For 1 doseIndications: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 ([facility]) New Bag 12/12/2024 12:53 PM EDT 700 mg sodium chloride 0.9 % flush 10 mL 10 mL, Intravenous, As needed, Starting on Wed12/12/24 at 1212, Until Wed12/12/24 at 1709, Routine, line care, Flush Before and After EVERY dose of medication.Indications: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 ([facility]) Given 12/12/2024 12:13 PM EDT 10 mL documented in this encounter Additional Health Concerns Assessment Noted Time PHQ-9 Depression Total Score: 5 11/15/19 25 9:00 AM EDT A fall risk assessment has been complete d for the patient 08/08/2024 2:12 PM EDT documented as of this encounter Care Teams Data Engineer Relationship Specialty Start Date End Date Oren Pressley MD [address] [place] [address] PCP - General Internal Medicine 02/09/23 Sima Trejo MD [address] [phone] Medical Oncologist Hematology and Oncology 08/02/23 documented as of this encounter
--- OUTSIDE RECORDS SUMMARY | 2025-01-09 11:45 | XMS_ITS | Encounter Summary ---
Author Organization [facility] Address [address] 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) Sima Trejo MD [address] [place] [phone] Phone: tel: fax: Sima Trejo MD [address] [place] [phone] Phone: tel: fax: Referral ID Status Reason Start Date Expiration Date V isits Requested Visits Authorized [id number] Authorized 11/14/2024 05/16/2026 1 7 Encounter Details Date Type Department Care Team (Late st Contact Info) Description 01/09/2025 11:45 AM EDT [facility] Visit [facility] [address] [place] [address] Sima Trejo MD [address] [place] [phone] 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 [...] Sign Reading Time Taken Comments Blood Pressure 125/72 01/09/2025 11:20 AM EDT Pulse 59 01/09/2025 11:20 AM EDT Temperature 37.1 C (98.7 F) 01/09/2025 11:20 AM EDT Respiratory Rate - - Oxygen Saturation 97% 01/09/2025 11:20 AM EDT Inhaled Oxygen Concentration - - Weight - - Height 167.6 cm (5' 6 ) 01/09/2025 11:20 AM EDT Body Mass Index - - documented in this encounter Miscellaneous Notes * Progress Notes - Sima Trejo MD - 01/09/2025 11:45 AM EDT [facility] HEMATOLOGY/ONCOLOGY FOLLOW UP Shea Chaparro Kishor 1945 Primary Care Provider: Oren Pressley MD Cancer Staging No matching staging information was found for the patient. 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) Treatment Details Treatment goal [No plan goal] Plan Name Bendamustine Day 1 only / riTUXimab Standard Dose Every 28 Days Status Active Start Date 11/14/2024 End Date 04/03/2025 (Planned) Provider Sima Trejo MD Chemotherapy bendamustine (Vivimusta) 175 mg in sodium chloride 0.9 % 250 mL chemo IVPB, 90 mg/m2 =175 mg, Intravenous, Once, 1 of 5 cycles Dose modification: 50 mg/m2 (original dose 90 mg/m2, Cycle 3, Reason: Toxicity/Complication, Comment: thrombocytopenia) Administration: 175 mg (11/14/2024) riTUXimab-arrx (Riabni) 700 mg in sodium chloride 0.9 % 500 mL IVPB, 375 mg/m2 = 700 mg, Intravenous, Once, 2 of 6 cycles Administration: 700 mg (11/14/2024), 700 mg (12/12/2024) Treatment Details Treatment goal [No plan goal] Plan Name Line Care (Peripheral) Status Active Start Date 11/14/2024 End Date Until discontinued Provider Sima Trejo MD Chemotherapy [No matching medication found in this treatment plan] Subjective History of Present Illness: Mrs. Iverson is a pleasant 79-year-old female who presents to clinic today for [...] CT findings concerning for tongue mass at [facility]. Pt is s/p 02/15/23 right [...] fell again off her toilet. 11/14/24 Cycle #2 Bendamustine and Rituxan. Pt tolerated this remarkably well. She actually feels better. She did have some nausea last night. The following portions of the chart were reviewed this encounter and updated as appropriate: Tobacco Allergies Meds Problems Med Hx Surg Hx Fam Hx Objective Review of Systems Constitutional: Positive for fatigue. Negative for chills and fever. HENT: Negative for mouth sores. Respiratory: Negative for cough and shortness of breath. Cardiovascular: Negative for chest pain. Gastrointestinal: Positive for nausea. Negative for diarrhea and vomiting. Genitourinary: Negative for frequency. Musculoskeletal: Positive for gait problem. Negative for arthralgias. Skin: Negative for rash. Neurological: Positive for gait problem. Psychiatric/Behavioral: Negative. Physical Exam: Vital Signs for this encounter: BSA: 2.05 meters squared Visit Vitals BP 125/72 Pulse 59 Temp 37.1 ??C (98.7 ??F) (Temporal) Ht 1.676 m (5' 6 ) SpO2 97% BMI 32.13 kg/m?? Smoking Status Former BSA 2.05 m?? Physical Exam Vitals reviewed. HENT: Head: Normocephalic. Mouth/Throat: Mouth: Mucous membranes are moist. Eyes: Extraocular Movements: Extraocular movements intact. Cardiovascular: Rate and Rhythm: Normal rate. Heart sounds: Normal heart sounds. Pulmonary: Effort: Pulmonary effort is normal. Abdominal: Palpations: Abdomen is soft. Skin: General: Skin is warm. Neurological: General: No focal deficit present. Mental Status: She is alert. Psychiatric: Mood and Affect: Mood normal. Performance Status: (2) Ambulatory and capable of self care, unable to carry out work activity, up and about > 50% or waking hours Results: Orders Only on 12/12/2024 Component Date [...] recommendation of the National Kidney Foundation and [place] [employer]. This calculation has not [...] undergoing Urate Lowering Therapy (ULT), the 2012 [place] [employer] Guidelines for Management of Gout recommend a target uric acid level of < 6 mg/dL in all patients, or lower in certain circumstances. Arthritis Care and Research Vol 64 No 10, Jan. 2011 [place] [employer] Assessment/Plan 1. 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 Pt's labs are reviewed. She is off all therapies. WBC is elevated but has no symptomatic cytopoenias and lymphadenopathy. Pt is s/p right tonsillectomy with pathology c/w CLL. She was intolerant of imbruvica. We will continue Cycle #3 rituxan and holding bendamustine given her thrombocytopenia. [...] History of malignant neoplasm of skin - dermatology. Z85.828: Personal history of other malignant neoplasm of skin 4. Pulmonary nodule of RUL. Pt is s/p benign biopsy. 5. HTN. I have asked pt to see PCP. documented in this encounter Plan of Treatment Upcoming Encounters Date Type Department Care Team (Late st Contact Info) Description 02/06/2025 10:30 AM EDT [facility] [address] [place] [address] 02/06/2025 11:30 AM EDT [facility] [address] [phone] Sima Trejo MD [address] [place] [phone] 02/06/2025 12:00 PM EDT Infusion [facility] [address] [phone] documented as of this encounter Visit Diagnoses Diagnosis 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)- Primary Chronic lymphoid leukemia, in relapse documented in this encounter Additional Health Concerns Assessment Noted Time PHQ-9 Depression Total Score: 5 11/15/19 25 9:00 AM EDT A fall risk assessment has been complete d for the patient 08/08/2024 2:12 PM EDT documented as of this encounter Care Teams Roof Tiler Relationship Specialty Start Date End Date Oren Pressley MD [address] [place] [address] PCP - General Internal Medicine 02/09/23 Sima Trejo MD [address] [place], [place] [address] [address] Medical Oncologist Hematology and Oncology 08/02/23 documented as of this encounter
--- OUTSIDE RECORDS SUMMARY | 2025-01-09 12:00 | XMS_ITS | Encounter Summary ---
Author Organization Healthcare Address [address] [place] [address] Care Team Providers Care Performance Tester Name Role Phone Oren Pressley MD Primary Care Provider [phone] Sima Trejo MD Unavailable [phone] Reason for Visit * Reason Comments OP Infusion Rituxan/Bendeka * Episode Based Medications (Routine) - Authorized Specialty Diagnoses / Procedures Referred By Contac t Referred To Contact Diagnoses 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 ([facility]/HCC) Sima [facility] MD [address] [address] [address] Phone: tel: [place]: [place] [address] [place] [phone] Phone: tel: fax: Referral ID Status Reason Start Date Expiration Date V isits Requested Visits Authorized [id number] Authorized 11/14/2024 05/16/2026 1 7 Encounter Details Date Type Department Care Team (Late st Contact Info) Description 01/09/2025 12:00 PM EDT [facility] [address] [place] [phone] 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 ([facility]/HCC) (Primary Dx) Social History Tobacco Use Types [...] Time Taken Comments Blood Pressure 125/72 01/09/2025 12:14 PM EDT Pulse 59 01/09/2025 12:14 PM EDT Temperature 37.1 C (98.8 F) 01/09/2025 12:14 PM EDT Respiratory Rate - - Oxygen Saturation 97% 01/09/2025 12:14 PM EDT Inhaled Oxygen Concentration - - Weight - - Height 167.6 cm (5' 5.98 ) 01/09/2025 12:14 PM E DT Body Mass Index - - documented in this encounter Functional Status * Calculated C-SSRS Risk Score (Lifetime/Recent) Answer Date of Assessment Author No Risk Indicated 01/09/2025 12:00 PM EDT Isabelle Norwood RN * Question Answer Date of Assessment Author 1. Wish to be (Past 1 Month) No 01/09/2025 12:00 PM EDT Telma Stanton RN 2. Non-Specific Active Suicidal Thoughts (Past 1 Month) No 01/09/2025 12:00 PM EDT Telma Stanton RN 6. Suicidal Behavior (Lifetime) No 01/09/2025 12:00 PM EDT Telma Stanton RN documented as of this encounter Plan of Treatment Upcoming Encounters Date Type Department Care Team (Late st Contact Info) Description 02/06/2025 10:30 AM EDT [facility] [address] [place] [address] 02/06/2025 11:30 AM EDT [facility] [address] [place] [address] Sima Trejo MD [address] [place] [phone] 02/06/2025 12:00 PM EDT [facility]fusion [facility] [address] [place] [address] documented as of this encounter Visit Diagnoses Diagnosis 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)- Primary Chronic lymphoid leukemia, in relapse documented in this encounter Administered Medications Inactive Administered Medications - up to 3 most recent administrations Medication Order MAR Action Action Date Dose Rate Site acetaminophen (Tylenol) tablet 650 mg 650 mg, Oral, Once, 1 dose, On Wed01/09/25 at 1245, RoutineIndications: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) Given 01/09/2025 12:34 PM EDT 650 mg bendamustine (Vivimusta) 97.5 mg in sodium chloride 0.9 % 250 mL chemo IVPB 97.5 mg (50 mg/m2 1.95 m2 Treatment Plan BSA from Recorded weight), Intravenous, at 896.7 mL/hr, Administer over 20 Minutes, Once, Hazardous Drug-Tier 1 Precautions. Dispose in BLACK Hazardous Waste Container. Chemotherapy: refer to A14-065., On Wed01/09/25 at 1315, For 1 doseIndications: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) New Bag 01/09/2025 1:35 PM EDT 97.5 mg 896.7 mL/hr dexamethasone (Decadron) tablet 12 mg 12 mg, Oral, Once, 1 dose, On Wed01/09/25 at 1245, RoutineIndications: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) Given 01/09/2025 12:34 PM EDT 12 mg diphenhydrAMINE (Benadryl) tablet 50 mg 50 mg, Oral, Once, 1 dose, On Wed01/09/25 at 1245, RoutineIndications: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) Given 01/09/2025 12:34 PM EDT 50 mg ondansetron ODT (Zofran-ODT) disintegrating tablet 16 mg 16 mg, Oral, Once, 1 dose, On Wed01/09/25 at 1245, RoutineIndications: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 ([facility]) Given 01/09/2025 12:34 PM EDT 16 mg riTUXimab-arrx (Riabni) 700 mg in sodium chloride 0.9 % 500 mL IVPB 700 mg (rounded from 731.25 mg = 375 mg/m2 1.95 m2 Treatment Plan BSA from Recorded weight), Intravenous, Once, Concentration: 1.1 mg/mL (ATV: 615 mL) Rapid Rate: 273 mg/lw=336 mL/hr for 30 min (VTBI: 124 mL) 555 mg/dx=993 mL/hr for 60 min (VTBI: 491 mL) Refer to hypersensitivity protocol for rate changes if intolerance or adverse reaction. Specific administration requirements refer to A14-065. Refer to hypersensitivity protocol for rate changes if intolerance or adverse reaction, On Wed01/09/25 at 1345, For 1 doseIndications: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 ([facility]) Rate/Dose Change 01/09/2025 2:34 PM EDT 496 mL/hr New Bag 01/09/2025 2:03 PM EDT 700 mg sodium chloride 0.9 % flush 10 mL 10 mL, Intravenous, As needed, Starting on Wed01/09/25 at 1226, Until Wed01/09/25 at 1821, Routine, line care, Flush Before and After EVERY dose of medication.Indications: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 ([facility]) Given 01/09/2025 1:34 PM EDT 10 mL sodium chloride 0.9 % flush 20 mL 20 mL, Intravenous, Every 1 hour PRN, Starting on Wed01/09/25 at 1226, Until Wed01/09/25 at 1821, Routine, line care, After blood draws and if any blood seen in tubing.Indications: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 ([facility]/HCC) Given 01/09/2025 3:37 PM EDT 20 mL Given 01/09/2025 2:00 PM EDT 20 mL documented in this encounter Additional Health Concerns Assessment Noted Time PHQ-9 Depression Total Score: 5 11/15/19 9:00 AM EDT A fall risk assessment has been complete d for the patient 08/08/2024 2:12 PM EDT documented as of this encounter Care Teams Performance Tester Relationship Specialty Start Date End Date Oren Pressley MD [address] [place] [address] PCP - General Internal Medicine 02/09/23 Sima Trejo MD [address] [phone] Medical Oncologist Hematology and Oncology 08/02/23 documented as of this encounter
--- OUTSIDE RECORDS SUMMARY | 2025-01-19 14:24 | XMS_ITS | Clinical Summary ---
Author Organization [facility] Address [address] [place] [address] Care Team Providers Care [employer] Engineer Name Role Phone Oren Pressley MD Primary Care Provider [phone] Sima Trejo MD Unavailable [phone] Allergies No known active allergies Medications [...] by mouth Daily. Active ergocalciferol 1.25 MG (73812 UT) capsule 3 Active cyanocobalamin (Vitamin B-12) 1000 MCG/ML injection 3 Active clonazePAM (KlonoPIN) 0.5 MG tablet Take 1 tablet (0.5 mg) by mouth Daily. Active carvedilol (Coreg) 12.5 MG tablet Take 1 tablet (12.5 mg) by mouth 2 (two) times a day. Active Ventolin HFA 108 (90 Base) MCG/ACT inhaler 3 Active prochlorperazin e (Compazine) 10 MG tabletIndicatio ns: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) Take 1 tablet by mouth every 6 hours as needed for nausea or vomiting. 30 tablet 5 5 Active sulfamethoxazol e-trimethoprim (Bactrim DS) 800-160 MG tabletIndicatio ns: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) Take 1 tablet by mouth 2 times a day. every Wednesday and Wednesday 16 tablet 5 5 Active acyclovir (Zovirax) 400 MG tabletIndicatio ns: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) Take 2 tablets by mouth 2 times a day. 120 tablet 5 5 Active temazepam (Restoril) 15 MG capsule Take 1 capsule by mouth at night as needed for sleep. Active Active Problems Problem Noted Date Diagnosed Date 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 11/07 Tongue mass 01/12/2023 Encounters Date Type Department Care Team Description 01/11/2025 Social Work [facility] [address] [place] [address] Jo Helms, TERMINAL BLOCK ASSEMBLER 01/10/2025 Social Work Psych Oncology [address] [place] [address] Janet Thomas 01/09/2025 12:00 PM EDT Infusion [facility] [place] [address] [place] [address] 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) (Primary Dx) 01/09/2025 11:45 AM EDT Office Visit [facility] [address] [place] [address] Sima Trejo MD 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) (Primary Dx) 01/09/2025 Social Work [facility] [address] [place] [address] Jo Helms, TERMINAL BLOCK ASSEMBLER 01/09/2025 Orders Only [facility] [address] [place] [address] Sima Trejo MD 01/09/2025 Travel 01/09/2025 Orders Only [facility] [address] [place] [address] Sima Trejo MD 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); History of non-Hodgkin's lymphoma; Weakness; Atrial fibrillation, chronic (CMS/HCC) 12/21/2024 Refill [facility] [place] [address] [place] [address] Sima Trejo MD 12/12/2024 11:30 AM EDT Infusion [facility] [address] [place] [address] 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) (Primary Dx) 12/12/2024 11:15 AM EDT Office Visit [facility] [place] [address] [place] [address] Sima Trejo MD 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) (Primary Dx) 12/12/2024 Orders Only [facility] [address] [place] [address] Jo Nur, PharmD 12/12/2024 Travel 12/12/2024 Orders Only [facility] [address] [place] [address] Sima Trejo MD 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); History of non-Hodgkin's lymphoma; Tongue mass; Lung nodule 11/22/2024 Orders Only [facility] [address] [place] [address] Sima Trejo MD 11/22/2024 Telephone [facility] [place] [address] [place] [address] Sima Trejo MD Insomnia 11/14/2024 8:30 AM EDT Infusion [facility] [address] [place] [address] 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) (Primary Dx); Atrial fibrillation, chronic (CMS/HCC) 11/14/2024 Travel 11/14/2024 Orders Only [facility] [address] [place] [address] Sima Trejo MD 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) 11/09/2024 Orders Only [facility] [address] [place] [address] Jo Nur, PharmD 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) (Primary Dx) 11/08/2024 Telephone [facility] [address] [place] [address] Sima Trejo MD New Tx Questions 11/07/2024 2:15 PM EDT Office Visit [facility] [address] [place] [address] Sima Trejo MD 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) (Primary Dx) 11/07/2024 Orders Only [facility] [address] [place] [address] Sima Trejo MD 11/07/2024 Travel 11/07/2024 Orders Only [facility] [address] [place] [address] Sima Trejo MD History of non-Hodgkin's lymphoma from Last 3 Months Immunizations Immunization Administration Dates Next Due Influenza, High-dose, Split Virus, Trivalent, Injectable, preservative free 01/11/2024,01/10/2020,02/16/2019,01/10 Influenza, high-dose, quadrivalent 03/16/2023,,01/18/2020 Influenza, injectable, quadrivalent 04/2021,03/19/2019,01/17/2018,02/04 Influenza, recombinant, quad rivalent, injectable, preservative free 01/01/2022 Moderna COVID-19 Vaccine (Re d Cap) 12+ years 07/19/2020 Pneumococcal Conjugate PCV 13 07/18/2021, 018 Pneumococcal Polysaccharide PPV23 04/19/2017 Pneumococcal, Unspecified 01/17/2018,05/06/2011 Tdap 08/05/2024 Zoster, Unspecified 01/17/2019 Zoster, live 11/23/2016 Social History Tobacco Use Types Packs/Day Years [...] 10:47 AM EDT Height 167.6 cm (5' 5.98 ) 01/09/2025 12:14 PM E DT Body Mass Index 32.13 12/12/2024 10:47 AM EDT Plan of Treatment Upcoming Encounters Date Type Department Care Team (Late st Contact Info) Description 02/06/2025 10:30 AM EDT Office Visit [facility] [address] [place] [address] 02/06/2025 11:30 AM EDT Office Visit [facility] [address] [place] [address] Sima Trejo MD [address] [address] 02/06/2025 12:00 PM EDT Infusion [facility] [address] [place] [address] Health Maintenance Due Date Last Done Comments [facility]-Bone Density Scan 1945 [facility]-Medicare Annual Wellness (AWV) 1945 [facility]-/Child/Adol SDOH Screenings 1945 [facility]-Obesity Intervention 08/18/1949 [facility]- SDOH Screenings 08/18/1961 [facility]-Adult SDOH Screenings 08/18/1961 [facility]-Zoster Vaccines (1 of 2) 01/18/2017 01/17/2019, 11/23/2016 [facility]-RSV Vaccine: 60+ Years or (1 - 1-dose 75+ series) 08/18/2018 [id number] Vaccine (6 - season) 2024 03/16/2023, 01/08/2021, 07/19/2020, Additional history exists [facility]-Influenza Vaccine (#1) 12/18/202401/10, 03/16/2023, 01/01/2022, Additional history exists [facility]-Depression Screening 11/14/2025 11/14/2024, 10/18 [facility]-DTaP,Tdap,and Td Vaccines (2 - Td or Tdap) 08/05/2034 08/05/2024 [facility]-Pneumococcal Vaccine: 50+ Years Completed 07/18/2021, 01/17/2018, 10/28/2017, Additional history exists HPV Vaccines Aged Out [...] Date/Time Associated Diagnosis Comments MANUAL DIFFERENTIAL Routine 01/09/2025 1 0:50 AM EDT PROTHROMBIN TIME(PT) / INR STAT 01/09/2025 10:50 AM EDT 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) Atrial fibrillation, chronic (CMS/HCC) ACUTE HEPATITIS PANEL STAT 01/09/2025 10:50 AM EDT 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) History of non-Hodgkin's lymphoma Weakness LACTATE DEHYDROGENASE, PLASMA STAT 01/09/2025 10:50 AM EDT 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) History of non-Hodgkin's lymphoma COMPREHENSIVE METABOLIC PANEL, PLASMA STAT 01/09/2025 10:50 AM EDT 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) CBC WITH AUTO DIFFERENTIAL STAT 01/09/2025 10:50 AM EDT 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) URIC ACID, PLASMA STAT 12/12/2024 10: 21 AM EDT 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) History of non-Hodgkin's lymphoma Tongue mass Lung nodule LACTATE DEHYDROGENASE, PLASMA STAT 12/12/2024 10:21 AM EDT 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) History of non-Hodgkin's lymphoma Tongue mass Lung nodule COMPREHENSIVE METABOLIC PANEL, PLASMA STAT 12/12/2024 10:21 AM EDT 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) CBC WITH AUTO DIFFERENTIAL STAT 12/12/2024 10:21 AM EDT 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) PROTHROMBIN TIME(PT) / INR STAT 11/14/2024 10:07 AM EDT 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) Atrial fibrillation, chronic (CMS/HCC) MANUAL DIFFERENTIAL Routine 11/07/2024 1 2:58 PM EDT URIC ACID, PLASMA STAT 11/07/2024 12: 58 PM EDT History of non-Hodgkin's lymphoma LACTATE DEHYDROGENASE, PLASMA STAT 11/07/2024 12:58 PM EDT History of non-Hodgkin's lymphoma COMPREHENSIVE METABOLIC PANEL, PLASMA STAT 11/07/2024 12:58 PM EDT History of non-Hodgkin's lymphoma CBC WITH AUTO DIFFERENTIAL STAT 11/07/2024 12:58 PM EDT History of non-Hodgkin's lymphoma from Last 3 Months Results * Acute Hepatitis Panel (01/09/2025 10:50 AM EDT) Pathologist [facility] External Hepatitis A IgM Ab (HAM) NONREACTIVE NONREACTIVE 01/09/2025 1:19 PM EDT [facility] External Hepatitis B Surface Antigen (HBSAg) NONREACTIVE NONREACTIVE 01/09/2025 1:19 PM EDT [facility] External Hepatitis B Core IgM (HBCM) NONREACTIVE NONREACTIVE 01/09/2025 1:19 PM EDT [facility] External Hepatitis C Antibody (HCV Ab) NONREACTIVE NONREACTIVE 01/09/2025 1:19 PM EDT [facility] Comment: Antibodies to HCV were not detected; does not exclude the possibility of exposure to HCV. Blood Venous blood specimen / Unknown 01/09/2025 10:50 AM EDT 01/09/2025 11:30 AM EDT us Sima Trejo MD LAB BLOOD ORDERABLES Final Re sult [facility] [address] [place] [address], * (ABNORMAL) Manual Differential (01/09/2025 10:50 AM EDT) Only the most recent of2 resultswithin the time period is included. External Band Neutrophil% 1.0 0.0 - 7.0 % 01/09/2025 11:55 AM EDT [facility] External Atypical Lymph% 0 0 - 1 % 01/09/2025 11:55 AM EDT [facility] External Metamyelocyte % 0 0 - 1 % 01/09/2025 11:55 AM EDT [facility] External Myelocyte % 0 0 - 1 % 01/09/2025 11:55 AM EDT [facility] External Promyelocyte% 0 0 % 01/09/2025 11:55 AM EDT [facility] External Blast% 0 0 % 09/23/202 5 11:55 AM EDT [facility] External Nucleated RBC%-Manual 0 0 - 1 /100{WBC} 01/09/2025 11:55 AM EDT [facility] External Smudge Cells 2(A) 0 /100{WBC} 01/09/2025 11:55 AM EDT [facility] External Platelet Morphology NORMAL 01/09/2025 11:55 AM EDT [facility] External Polychromasia SLIGHT(A) 01/09/2025 11:55 AM EDT [facility] External Ovalocytes SLIGHT(A) 01/09/2025 11:55 AM EDT [facility] 01/09/2025 10:5 0 AM EDT 01/09/2025 11:16 AM EDT us Sima Trejo MD LAB BLOOD ORDERABLES Final Re sult Performing Organization Address [facility] Co [place] [address], * (ABNORMAL) Prothrombin Time/INR (01/09/2025 10:50 AM EDT) Only the most recent of2 resultswithin the time period is included. External Prothrombin Time (PT) 18.2(H) 9.0 - 11.0 SECONDS 01/09/2025 11:44 AM EDT [facility] External INR - Internormal Ratio 1.9(L) 2.0 - 3.0 01/09/2025 11:44 AM EDT [facility] Comment: INR OF 2.0 TO 3.0 RECOMMENDED FOR: PROPHYLAXIS AND TREATMENT OF VENOUS THROMBOSIS TREATMENT OF PULMONARY EMBOLISM PREVENTION OF SYSTEMIC EMBOLISM TISSUE HEART VALVES, VALVULAR HEART DISEASE ACUTE MYOCARDIAL INFARCTION, ATRIAL FIBRILLATION INR OF 2.5 TO 3.5 RECOMMENDED FOR: RECURRENT SYSTEMIC EMBOLISM MECHANICAL PROSTHETIC VALVES Blood Venous blood specimen / Unknown 01/09/2025 10:50 AM EDT 01/09/2025 11:16 AM EDT us Sima Trejo MD LAB BLOOD ORDERABLES Final Re sult Performing Organization Address City/[facility]/ZIP Co de Phone Number [facility] [address] [place] [address], [place] [phone] * (ABNORMAL) CBC and differential (01/09/2025 10:50 AM EDT) Only the most recent of3 resultswithin the time period is included. External WBC 6.8 3.8 - 10.8 10*3/uL 01/09/2025 11:55 AM EDT [facility] External Red Blood Cell (RBC) 3.61(L) 3.80 - 5.20 10*6/uL 01/09/2025 11:55 AM EDT [facility] External Hemoglobin 11.0(L) 12.0 - 16.0 g/dL 01/09/2025 11:55 AM EDT [facility] External Hematocrit 33.1(L) 35.0 - 47.0 % 01/09/2025 11:55 AM EDT [facility] External MCV 92 80 - 100 fL 01/09/2025 11:55 AM EDT [facility] External MCH 31 26 - 35 pg 01/09/2025 11:55 AM EDT [facility] External MCHC 33 32 - 36 g/dL 01/09/2025 11:55 AM EDT [facility] External RDW 17.4(H) 11.0 - 15.0 % 01/09/2025 11:55 AM EDT [facility] External Mean Platelet Volume 7.3 6.2 - 10.5 fL 01/09/2025 11:55 AM EDT [facility] External Platelet Count (Plt) 123(L) 150 - 400 10*3/uL 01/09/2025 11:55 AM EDT [facility] External Neutrophil# 2.7 1.6 - 8.4 10*3/uL 01/09/2025 11:55 AM EDT [facility] External Lymphocyte# 3.5 0.4 - 5.1 10*3/uL 01/09/2025 11:55 AM EDT [facility] External Absolute Monocyte (Abs Manatee) 0.3 0.0 - 1.2 10*3/uL 01/09/2025 11:55 AM EDT [facility] External Eosinophils# 0.2 0.0 - 0.8 10*3/uL 01/09/2025 11:55 AM EDT [facility] External Baso# 0.0 0.0 - 0.3 10*3/uL 01/09/2025 11:55 AM EDT [facility] External Neutrophils % 39.0(L) 42.0 - 78.0 % 01/09/2025 11:55 AM EDT [facility] External Lymphocyte % 52.0(H) 11.0 - 47.0 % 01/09/2025 11:55 AM EDT [facility] External Monocyte % 5.0 0.0 - 11.0 % 01/09/2025 11:55 AM EDT [facility] External Eosinophil% 3.0 0.0 - 7.0 % 01/09/2025 11:55 AM EDT [facility] External Basophil % 0.0 0.0 - 3.0 % 01/09/2025 11:55 AM EDT [facility] External Nucleated RBC%-Auto 0.2 0.0 - 0.9 % 01/09/2025 11:55 AM EDT [facility] External Nucleated RBC Absolute 0.01 Not Estab. 10*3/uL 01/09/2025 11:55 AM EDT [facility] Blood Venous blood specimen / Unknown 01/09/2025 10:50 AM EDT 01/09/2025 11:16 AM EDT Sima Trejo MD LAB BLOOD ORDERABLES Final Re sult [facility] [address] [place] [address], * Lactate Dehydrogenase, Plasma (01/09/2025 10:50 AM EDT) Only the most recent of3 resultswithin the time period is included. External LDH Lactate Dehydrogenase 157 135 - 233 U/L 01/09/2025 12:04 PM EDT [facility] Blood Venous blood specimen / Unknown 01/09/2025 10:50 AM EDT 01/09/2025 11:30 AM EDT us Sima Trejo MD LAB BLOOD ORDERABLES Final Re sult [facility] [address] [place] [address], * (ABNORMAL) Comprehensive metabolic panel (01/09/2025 10:50 AM EDT) Only the most recent of3 resultswithin the time period is included. External Glucose 128(H) 74 - 100 mg/dL 01/09/2025 11:44 AM EDT [facility] External BUN 14 6 - 20 mg/dL 01/09/2025 11:44 AM EDT [facility] External Creatinine Blood 1.41(H) 0.50 - 0.95 mg/dL 01/09/2025 11:44 AM EDT [facility] External BUN/Creat Ratio 10 10 - 20 (calc) 01/09/2025 11:44 AM EDT [facility] External Sodium 135(L) 136 - 145 mmol/L 01/09/2025 11:44 AM EDT [facility] External Potassium 4.1 3.4 - 5.0 mmol/L 01/09/2025 11:44 AM EDT [facility] External Chloride 101 98 - 107 mmol/L 01/09/2025 11:44 AM EDT [facility] External Carbon Dioxide (CO2) 22 22 - 31 mmol/L 01/09/2025 11:44 AM EDT [facility] External Anion Gap (AG) 12 7 - 25 (calc) 01/09/2025 11:44 AM EDT [facility] External Calcium 9.0 8.6 - 10.2 mg/dL 01/09/2025 11:44 AM EDT [facility] External Total Protein 6.1(L) 6.4 - 8.3 g/dL 01/09/2025 11:44 AM EDT [facility] External Albumin 4.0 3.5 - 5.2 g/dL 01/09/2025 11:44 AM EDT [facility] External Globulin 2.1 1.5 - 4.5 025 11:44 AM EDT [facility] External Albumin/Globulin Ratio 1.9 1.1 - 2.5 (calc) 01/09/2025 11:44 AM EDT [facility] External Bilirubin Total 0.6 0.1 - 1.0 mg/dL 01/09/2025 11:44 AM EDT [facility] Comment:NOTE: New reference range. External Alkaline Phosphatase 78 30 - 121 U/L 01/09/2025 11:44 AM EDT [facility] External AST (SGOT) 19 0 - 32 U/L 01/09/2025 11:44 AM EDT [facility] External ALT (SGPT) 13 0 - 33 U/L 01/09/2025 11:44 AM EDT [facility] External Estimated GFR 37(A) >=60 01/09/2025 11:44 AM EDT [facility] Comment: NOTE New calculation for GFR (CKD-EPI 2020) is formulated without race adjustment factors at the recommendation of the National Kidney Foundation and [employer] Society of Nephrology. This calculation has not been validated in women. For pediatric patients refer to https://www.kidney.org/professionals/KDOQI/gfr_calculatorPed Blood Venous blood specimen / Unknown 01/09/2025 10:50 AM EDT 01/09/2025 11:16 AM EDT Sima Trejo MD LAB BLOOD ORDERABLES Final Re sult [facility] [address] [place] [address], * (ABNORMAL) Uric Acid, Plasma (12/12/2024 10:21 AM EDT) Only the most recent of2 resultswithin the time period is included. External Uric Acid 5.9(H) 2.4 - 5.7 mg/dL 12/12/2024 11:10 AM EDT [facility] Comment: Reference ranges are based on population norms and do not necessarily correlate with treatment targets. In patients with an established diagnosis of gout undergoing Urate Lowering Therapy (ULT), the 2012 [employer] Guidelines for Management of Gout recommend a target uric acid level of < 6 mg/dL in all patients, or lower in certain circumstances. Arthritis Care and Research Vol 64 No 10, 2011 [employer] Blood Venous blood specimen / Unknown 12/12/2024 10:21 AM EDT 12/12/2024 10:42 AM EDT us Sima Trejo MD LAB BLOOD ORDERABLES Final Re sult [facility] [address] [place] [address], from Last 3 Months Insurance MEDICARE Care Teams [employer] Engineer Relationship Specialty Start Date End Date Oren Pressley MD [address] [place] [address] PCP - General Internal Medicine 02/09/23 Sima Trejo MD [address] [id number] Medical Oncologist Hematology and Oncology 08/02/23
--- OUTSIDE RECORDS SUMMARY | 2025-01-19 14:24 | XMS_ITS | Clinical Summary ---
Author Organization [facility] ([place], [place], [place], [place]) Address [address] [place] [address] Care Team Providers Care Personal Banker Name Role Phone Oren Pressley MD Primary Care Provider [phone] Allergies No known active allergies Medications clonazePAM [...] Date [place] Speak language other than [place] at home Not on file 04/30/2023 Want [...] Pneumococcal 50+ years (2 of 2 - PCV20 or PCV21) 10/28/2018 10/28/2017 Falls Risk Screening 04/19/2024 Tobacco Cessation Counseling and Screening (12+) 04/22/2024 04/22/2023 COVID-19 VACCINE (5 - 2024-2 6 season) 2024 03/16/2023, 01/08/2021, 06/28/2020, Additional history exists Influenza Vaccine (#1) 2024 , 01/01/2022, 01/10/2020, Additional history exists Insurance [address] [place] [id number] MEDICARE PART A B Care Teams Personal Banker Relationship Specialty Start Date End Date Oren Pressley MD [address] [place] [address] [place] [id number] PCP - General Adolescent Medicine 05/17/23
--- OUTSIDE RECORDS SUMMARY | 2025-01-19 14:24 | XMS_ITS | Encounter Summary ---
Author Organization Healthcare Address [address] 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); History of non-Hodgkin's lymphoma; Tongue mass; Lung nodule Social History Tobacco Use Types Packs/Day Years [...] Encounters Date Type Department Care Team (Late Contact Info) Description 02/06/2025 10:30 AM EDT Office Visit [facility] at [facility] [address] [place] [address] 02/06/2025 11:30 AM EDT Office Visit [facility] at [facility] [address] [place] [address] Sima Trejo MD [address] [place] [address] 02/06/2025 12:00 PM EDT Infusion [facility] at [facility] [address] [place] [address] documented as of this encounter Procedures Procedure Name Priority Date/Time Associated Diagnosis Comments CBC WITH AUTO DIFFERENTIAL STAT 12/12/2024 10:21 AM EDT 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 ([facility]/HCC) URIC ACID, PLASMA STAT 12/12/2024 10: 21 AM EDT 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 ([facility]/HCC) History of non-Hodgkin's lymphoma Tongue mass Lung nodule LACTATE DEHYDROGENASE, PLASMA STAT 12/12/2024 10:21 AM EDT 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 ([facility]/HCC) History of non-Hodgkin's lymphoma Tongue mass Lung nodule COMPREHENSIVE METABOLIC PANEL, PLASMA STAT 12/12/2024 10:21 AM EDT 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 ([facility]/HCC) documented in this encounter Results * (ABNORMAL) Uric Acid, Plasma (12/12/2024 10:21 AM EDT) External Uric Acid 5.9(H) 2.4 - 5.7 mg/dL 12/12/2024 11:10 AM EDT [facility] Comment: Reference ranges are based on population norms and do not necessarily correlate with treatment targets. In patients with an established diagnosis of gout undergoing Urate Lowering Therapy (ULT), the 2012 [place] [employer] Guidelines for Management of Gout recommend a target uric acid level of < 6 mg/dL in all patients, or lower in certain circumstances. Arthritis Care and Research Vol 64 No 10, 2011 [employer] [employer] Blood Venous blood specimen / Unknown 12/12/2024 10:21 AM EDT 12/12/2024 10:42 AM EDT Sima Trejo MD LAB BLOOD ORDERABLES Final Re sult Performing Organization Address [facility]/[place] [address], * Lactate Dehydrogenase, Plasma (12/12/2024 10:21 AM EDT) External LDH Lactate Dehydrogenase 157 135 - 233 U/L 12/12/2024 11:09 AM EDT [facility] Blood Venous blood specimen / Unknown 12/12/2024 10:21 AM EDT 12/12/2024 10:42 AM EDT Sima Trejo MD LAB BLOOD ORDERABLES Final Re sult Performing Organization Address [facility] [place] [address], * (ABNORMAL) Comprehensive metabolic panel (12/12/2024 10:21 AM EDT) External Glucose 127(H) 74 - 100 mg/dL 12/12/2024 11:10 AM EDT [facility] External BUN 16 6 - 20 mg/dL 12/12/2024 11:10 AM EDT [facility] External Creatinine Blood 1.30(H) 0.50 - 0.95 mg/dL 12/12/2024 11:10 AM EDT [facility] External BUN/Creat Ratio 12 10 - 20 (calc) 12/12/2024 11:10 AM EDT [facility] External Sodium 138 136 - 145 mmol/L 12/12/2024 11:10 AM [facility] External Potassium 4.3 3.4 - 5.0 mmol/L 12/12/2024 11:10 AM [facility] External Chloride 105 98 - 107 mmol/L 12/12/2024 11:10 AM [facility] External Carbon Dioxide (CO2) 23 22 - 31 mmol/L 12/12/2024 11:10 AM [facility] External Anion Gap (AG) 10 7 - 25 (calc) 12/12/2024 11:10 AM [facility] External Calcium 8.9 8.6 - 10.2 mg/dL 12/12/2024 11:10 AM [facility] External Total Protein 6.1(L) 6.4 - 8.3 g/dL 12/12/2024 11:10 AM [facility] External Albumin 4.0 3.5 - 5.2 g/dL 12/12/2024 11:10 AM [facility] External Globulin 2.1 1.5 - 4.5 025 11:10 AM [facility] External Albumin/Globulin Ratio 1.9 1.1 - 2.5 (calc) 12/12/2024 11:10 AM [facility] External Bilirubin Total 0.5 0.1 - 1.0 mg/dL 12/12/2024 11:10 AM [facility] Comment:NOTE: New reference range. External Alkaline Phosphatase 83 30 - 121 U/L 12/12/2024 11:10 AM [facility] External AST (SGOT) 18 0 - 32 U/L 12/12/2024 11:10 AM [facility] External ALT (SGPT) 13 0 - 33 U/L 12/12/2024 11:10 AM [facility] External Estimated GFR 41(A) >=60 12/12/2024 11:10 AM [facility] Comment: NOTE New calculation for GFR (CKD-EPI 2020) is formulated without race adjustment factors at the recommendation of the National Kidney Foundation and [place] [employer]ph[employer]. This calculation has not been validated in women. For pediatric patients refer to https://www.kidney.org/professionals/KDOQI/gfr_calculatorPed Blood Venous blood specimen / Unknown 12/12/2024 10:21 AM EDT 12/12/2024 10:42 AM EDT us Sima Trejo MD LAB BLOOD ORDERABLES Final Re sult [facility] [address] [place] [address], * (ABNORMAL) CBC and differential (12/12/2024 10:21 AM EDT) External WBC 5.9 3.8 - 10.8 10*3/uL 12/12/2024 10:44 AM EDT [facility] External Red Blood Cell (RBC) 3.54(L) 3.80 - 5.20 10*6/uL 12/12/2024 10:44 AM EDT [facility] External Hemoglobin 10.8(L) 12.0 - 16.0 g/dL 12/12/2024 10:44 AM EDT [facility] External Hematocrit 32.1(L) 35.0 - 47.0 % 12/12/2024 10:44 AM EDT [facility] External MCV 91 80 - 100 fL 12/12/2024 10:44 AM EDT [facility] External MCH 31 26 - 35 pg 12/12/2024 10:44 AM EDT [facility] External MCHC 34 32 - 36 g/dL 12/12/2024 10:44 AM EDT [facility] External RDW 17.4(H) 11.0 - 15.0 % 12/12/2024 10:44 AM EDT [facility] External Mean Platelet Volume 7.7 6.2 - 10.5 fL 12/12/2024 10:44 AM EDT [facility] External Platelet Count (Plt) 67(L) 150 - 400 10*3/uL 12/12/2024 10:44 AM EDT [facility] External Neutrophil# 2.6 1.6 - 8.4 10*3/uL 12/12/2024 10:44 AM EDT [facility] External Lymphocyte# 2.8 0.4 - 5.1 10*3/uL 12/12/2024 10:44 AM EDT [facility] External Absolute Monocyte (Abs Beau[place]) 0.4 0.0 - 1.2 10*3/uL 12/12/2024 10:44 AM EDT [facility] External Eosinophils# 0.1 0.0 - 0.8 10*3/uL 12/12/2024 10:44 AM EDT [facility] External Baso# 0.0 0.0 - 0.3 10*3/uL 12/12/2024 10:44 AM EDT [facility] External Neutrophils % 44.5 42.0 - 78.0 % 12/12/2024 10:44 AM EDT [facility] External Lymphocyte % 47.4(H) 11.0 - 47.0 % 12/12/2024 10:44 AM EDT [facility] External Monocyte % 6.1 0.0 - 11.0 % 12/12/2024 10:44 AM EDT [facility] External Eosinophil% 1.6 0.0 - 7.0 % 12/12/2024 10:44 AM EDT [facility] External Basophil % 0.4 0.0 - 3.0 % 12/12/2024 10:44 AM EDT [facility] External Nucleated RBC%-Auto 0.0 0.0 - 0.9 % 12/12/2024 10:44 AM EDT [facility] External Nucleated RBC Absolute 0.00 Not Estab. 10*3/uL 12/12/2024 10:44 AM EDT [facility] Blood Venous blood specimen / Unknown 12/12/2024 10:21 AM EDT 12/12/2024 10:42 AM EDT Sima Trejo MD LAB BLOOD ORDERABLES Final Re sult [facility] [place] [address], documented in this encounter Visit Diagnoses Diagnosis 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) Chronic lymphoid leukemia, in relapse History of non-Hodgkin's lymphoma Personal history of other lymphatic and hematopoietic neoplasm Tongue mass Swelling, mass, or lump in head and neck Lung nodule Other diseases of lung, not elsewhere classified documented in this encounter Additional Health Concerns Assessment Noted Time PHQ-9 Depression Total Score: 5 11/15/19 25 9:00 AM EDT A fall risk assessment has been complete d for the patient 08/08/2024 2:12 PM EDT documented as of this encounter Care Teams Centrifugal Supervisor Relationship Specialty Start Date End Date Oren Pressley MD [address] [place] [address] PCP - General Internal Medicine 02/09/23 Sima Trejo MD [address] [address] Medical Oncologist Hematology and Oncology 08/02/23 documented as of this encounter
--- OUTSIDE RECORDS SUMMARY | 2025-01-19 14:24 | XMS_ITS | Encounter Summary ---
Author Organization Healthcare Address [address] [place] [address] Care Team Providers Care Fuel Yard Operator Name Role Phone Pcp, No Primary Care Provider Oren Hull MD Primary Care Provider Sima Trejo MD Unavailable [phone] Encounter Details Date Type Department Care Team (Late st Contact Info) Description 05/26/2022 Orders Only [facility] at [address] [place] [address] Sima Trejo MD [address] [address] Social History Tobacco Use Types [...] Description 02/06/2025 10:30 AM EDT Office Visit [facility] [address] [place] [address] 02/06/2025 11:30 AM EDT Office Visit [facility] [address] [place] [address] Sima Trejo MD [address] [address] 02/06/2025 12:00 PM EDT Infusion [facility] at [facility] [place] [address] documented as of this encounter Procedures Procedure Name Priority Date/Time Associated Diagnosis Comments COMPREHENSIVE METABOLIC PANEL, PLASMA Routine 05/26/2022 1:07 PM EST documented in this encounter Results * (ABNORMAL) Comprehensive Metabolic Panel, Plasma (05/26/2022 1:07 PM EST) External Glucose 116(H) 74 - 100 mg/dL [facility] External BUN 22(H) 6 - 20 mg/dL [facility] External Creatinine Blood 1.15(H) 0.50 - 0.95 mg/dL [facility] External BUN/Creat Ratio 19 10 - 20 (calc) [facility] External Sodium 140 136 - 145 mmol/L [facility] External Potassium 4.4 3.4 - 5.0 mmol/L [facility] External Chloride 104 98 - 107 mmol/L [facility] External Carbon Dioxide 25 22 - 31 mmol/L [facility] External Anion Gap (AG) 11 7 - 25 (calc) [facility] External Calcium 9.5 8.6 - 10.2 mg/dL [facility] External Total Protein 7.0 6.4 - 8.3 g/dL [facility] External Albumin 4.3 3.5 - 5.2 g/dL [facility] External Globulin 2.7 1.5 - 4.5 g/dL (calc) [facility] External Albumin/Globulin Ratio 1.6 1.1 - 2.5 (calc) [facility] External Bilirubin Total 0.4 0.1 - 1.2 mg/dL [facility] External Alkaline Phosphatase 71 30 - 121 U/L [facility] External AST (SGOT) 18 0 - 32 U/L [facility] External ALT (SGPT) 15 0 - 33 U/L [facility] External Estimated GFR 49(A) >=60 [facility] Comment: NOTE New calculation for GFR (CKD-EPI 2020) is formulated without race adjustment factors at the recommendation of the National Kidney Foundation and [place] [employer]. This calculation has not been validated in women. For pediatric patients refer to https://www.kidney.org/professionals/KDOQI/gfr_calculatorPed 05/26/2022 1:07 PM EST 05/26/2022 1:19 PM EST us Sima Trejo MD LAB BLOOD ORDERABLES Final Re sult [facility] [address] [place] [address], documented in this encounter Visit Diagnoses Not on filedocumented in this encounter Care Teams Fuel Yard Operator Relationship Specialty Start Date End Date Pcp, No [address] [place] [address] PCP - General 12/02/20 02/08/23 Oren Pressley MD [address] [place] [address] PCP - General Internal Medicine 02/09/23 Sima Trejo MD [address] [address] Medical Oncologist Hematology and Oncology 08/02/23 documented as of this encounter
--- OUTSIDE RECORDS SUMMARY | 2025-01-19 14:24 | XMS_ITS | Encounter Summary ---
Author Organization Healthcare Address [address] [place] [address] Care Team Providers Care Voice And Data Technician Name Role Phone Oren Pressley MD Primary Care Provider Sima Trejo MD Unavailable [phone] Encounter Details Date Type Department Care Team (Late st Contact Info) Description 05/28/2023 OSHA Contract Physicial [facility] at [facility] [address] [place] [address] Dagmar Sewell MD [address] [address] Social History Tobacco Use Types [...] Description 02/06/2025 10:30 AM EDT Office Visit [facility] at [facility] [address] [place] [address] 02/06/2025 11:30 AM EDT Office Visit [facility] at [facility] [address] [place] [address] Sima Trejo MD [address] [place] [address] 02/06/2025 12:00 PM EDT Infusion [facility] at [facility] [address] [place] [address] documented as of this encounter Visit Diagnoses Not on filedocumented in this encounter Care Teams Voice And Data Technician Relationship Specialty Start Date End Date Oren Pressley MD [address] [place] [address] PCP - General Internal Medicine 02/09/23 Sima Trejo MD [address] [place] [address] Medical Oncologist Hematology and Oncology 08/02/23 documented as of this encounter
--- OUTSIDE RECORDS SUMMARY | 2025-01-19 14:24 | XMS_ITS | Encounter Summary ---
Author Organization [facility] Address [address] [place] [id number] Care Team Providers Care Activities Officer Name Role Phone Oren Pressley MD Primary Care Provider [phone] Sima Trejo MD Unavailable [phone] Reason for Visit * Reason Comments Resource Navigation Encounter Details Date Type Department Care Team (Late st Contact Info) Description 01/11/2025 Social Work [facility] at [address] [address] Jo Helms, [place] [address] Social History Tobacco Use Types Packs/Day Years [...] as of this encounter Miscellaneous Notes * Clinician Note - Jo Hemls LCSW - 01/11/2025 1:39 PM EDT Encounter Type: Phone Call Disease Status: Established Patient Clinic Location: [facility] Disease Type: Leukemia Services Provided: Financial Support, Financial Toxicity, Resource Navigation, Transportation Assistance Education Provided: Financial Support/Aid National Referrals: Leukemia & Lymphoma Society Intervention Level: 3 Units (1 unit = 15 minutes): 2 Narrative: ASSISTANT PROPERTY MANAGER student called patient to ask about filing an application to [facility]'s Patient Assistance Program on her behalf for transportation assistance. Patient consented. Application was filled out by AEROSOL LINE OPERATOR and was approved for patient. ASSISTANT PROPERTY MANAGER student called patient back and informed p atient that she had been approved and the check would be mailed to her home address. Patient expressed appreciation for the assistance. Deena Newton ASSISTANT PROPERTY MANAGER Student SANDEEP Cavanaugh, MOHIT [facility] Psych Oncology Services [phone] documented in this encounter Plan of Treatment Upcoming Encounters Date Type Department Care Team (Late st Contact Info) Description 02/06/2025 10:30 AM EDT Office Visit [facility] at [facility] [address] [place] [address] 02/06/2025 11:30 AM EDT Office Visit [facility] at [facility] [address] [place] [address] Siam Trejo MD [address] [address] 02/06/2025 12:00 PM EDT Infusion [facility] at [facility] [address] [place] [phone] documented as of this encounter Visit Diagnoses Not on filedocumented in this encounter Additional Health Concerns Assessment Noted Time PHQ-9 Depression Total Score: 5 11/15/19 25 9:00 AM EDT A fall risk assessment has been complete d for the patient 08/08/2024 2:12 PM EDT documented as of this encounter Care Teams Activities Officer Relationship Specialty Start Date End Date Oren Pressley MD [address] [place] [address] PCP - General Internal Medicine 02/09/23 Sima Trejo MD [address] [address] Medical Oncologist Hematology and Oncology 08/02/23 documented as of this encounter
--- OUTSIDE RECORDS SUMMARY | 2025-01-19 14:24 | XMS_ITS | Encounter Summary ---
Author Organization Healthcare Address [address] [place] [address] Care Team Providers Care Target Protection Specialist Name Role Phone Pcp, No Primary Care Provider Oren Hull MD Primary Care Provider Sima Trejo MD Unavailable [phone] Encounter Details Date Type Department Care Team (Late st Contact Info) Description 05/26/2022 Orders Only [facility] at [address] [place] [address] Sima Trejo MD [address] [address] Social History Tobacco Use Types [...] Description 02/06/2025 10:30 AM EDT Office Visit [facility] at [address] [place] [address] 02/06/2025 11:30 AM EDT Office Visit [facility] at [address] [place] [address] Sima Trejo MD [address] [address] 02/06/2025 12:00 PM EDT Infusion [facility] at [facility] [address] [place] [address] documented as of this encounter Procedures Procedure Name Priority Date/Time Associated Diagnosis Comments URIC ACID, PLASMA Routine 05/26/2022 1:0 7 PM EST documented in this encounter Results * (ABNORMAL) Uric Acid, Plasma (05/26/2022 1:07 PM EST) External Uric Acid 8.9(H) 2.4 - 5.7 mg/dL [facility] Comment: Reference ranges are based on population norms and do not necessarily correlate with treatment targets. In patients with an established diagnosis of gout undergoing Urate Lowering Therapy (ULT), the 2012 [place] [employer] Guidelines for Management of Gout recommend a target uric acid level of < 6 mg/dL in all patients, or lower in certain circumstances. Arthritis Care and Research Vol 64 No 10, Jan. 2012 [place] [employer] 05/26/2022 1:07 PM EST 05/26/2022 1:19 PM EST us Sima Trejo MD LAB BLOOD ORDERABLES Final Re sult [facility] [address] [place] [address], documented in this encounter Visit Diagnoses Not on filedocumented in this encounter Care Teams Target Protection Specialist Relationship Specialty Start Date End Date Pcp, No [address] [place] [address] PCP - General 12/02/20 02/08/23 Oren Pressley MD [address] [place] [address] PCP - General Internal Medicine 02/09/23 Sima Trejo MD [address] [address] Medical Oncologist Hematology and Oncology 08/02/23 documented as of this encounter
--- OUTSIDE RECORDS SUMMARY | 2025-01-19 14:24 | XMS_ITS ---
Author Organization [facility] Address [address] [place] [address] Care Team Providers Care Movie Actor Name Role Phone Oren Pressley MD Primary Care Provider [phone] Sima Trejo MD Unavailable [phone] Active Problems Problem Noted Date Diagnosed Date 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 11/07 Tongue mass 01/12/2023 Current Treatment and Therapy Plans Bendamustine Day 1 only / riTUXimab Standard Dose Every 28 Days* Plan Start Date:11/13/2024 Plan Provider:Sima Trejo MD Linked Problems CLL (chronic lymphoid leukem ia) in relapse (CMS/HCC) Treatment Medications Current Day (Day 1 , Cycle 4 - Planned for 02/06/2025) Next Day (Day 1, Cycle 5 - Planned for 03/06/2025) bendamustineVivimusta (Vivimusta) bendam ustine (Vivimusta) 97.5 mg in sodium chloride 0.9 % 250 mL chemo IVPB bendamustine (Vivimusta) 97.5 mg in sodium chloride 0.9 % 250 mL chemo IVPB Line Care (Peripheral)* Plan Start Date:11/14/2024 Plan Provider:Sima Trejo MD Linked Problems CLL (chronic lymphoid leukem ia) in relapse (CMS/HCC) Treatment Medications No medications scheduled. Past Treatment and Therapy Plans No past plan information found.
--- OUTSIDE RECORDS SUMMARY | 2025-01-19 14:24 | XMS_ITS | Referral Summary ---
Author Organization [employer] ([place], [place], [place], [place]) Address [address] [place] [address] Care Team Providers Care Bilingual Elementary School Teacher Name Role Phone Oren Pressley MD Primary Care Provider [phone] Allergies No known active allergies Medications clonazePAM [...] Date [place] Speak language other than German at home Not on file 04/30/2023 Want [...] Insurance MEDICARE PART A B Care Teams Bilingual [employer] Teacher Relationship Specialty Start Date End Date Oren Pressley MD [address] [place] [address] [place] [address] PCP - General Adolescent Medicine 05/17/23
--- OUTSIDE RECORDS SUMMARY | 2025-01-19 14:24 | XMS_ITS | Encounter Summary ---
Author Organization Healthcare Address [address] [place] [address] Care Team Providers Care Barkeeper Name Role Phone Oren Pressley MD Primary Care Provider [phone] Sima Trejo MD Unavailable [phone] Reason for Visit * Reason Comments Resource Navigation Encounter Details Date Type Department Care Team ([facility] st Contact Info) Description 01/10/2025 Social Work Psych Oncology [address] [place] [address] Janet Thomas Social History Tobacco Use Types Packs/Day Years [...] as of this encounter Miscellaneous Notes * Progress Notes - Janet Thomas - 01/10/2025 3:01 PM EDT Encounter Type: Phone Call Disease Status: Initial Psych Onc Contact Clinic Location: [facility] Disease Type: Non-Hodgkin Lymphoma Intervention Level: 1 Units (1 unit = 15 minutes): 1 Narrative: PRODUCTION MINER attempted to follow up with pt per pt request regarding insurance and financial assistance. Pt was unavailable at this time. PRODUCTION MINER left a brief non urgent message stating name, nature of call, and contact information for follow up as needed. PRODUCTION MINER remains available ongoing prn. Janet Thomas MSW, PRODUCTION MINER [phone] * Progress Notes - Janet Thomas - 01/10/2025 3:01 PM EDT Encounter Type: Phone Call Disease Status: Initial Psych Onc Contact Clinic Location: [facility] Disease Type: Non-Hodgkin Lymphoma Education Provided: Financial Support/Aid [facility] Referrals: Financial Navigator Intervention Level: 3 Units (1 unit = 15 minutes): 2 Narrative: PRODUCTION MINER received call back from pt stating she needed to speak with financial department for [employer] and needed to know what documents she needed to bring with her. PRODUCTION MINER committed to referring pt to vijay Valente to request follow up. Pt was appreciative and denied additional needs at this time. PRODUCTION MINER remains available ongoing prn. Janet Thomas MSW, PRODUCTION MINER [phone] documented in this encounter Plan of Treatment Upcoming Encounters Date Type Department Care Team (Late st Contact Info) Description 02/06/2025 10:30 AM EDT Office Visit [facility] at [place] [address] [place] [address] 02/06/2025 11:30 AM EDT Office Visit [facility] at [facility] [address] [place] [address] Sima Trejo MD [address] [phone] 02/06/2025 12:00 PM EDT Infusion [facility] at [facility] [address] [place] [address] documented as of this encounter Visit Diagnoses Not on filedocumented in this encounter Additional Health Concerns Assessment Noted Time PHQ-9 Depression Total Score: 5 11/15/19 25 9:00 AM EDT A fall risk assessment has been complete d for the patient 08/08/2024 2:12 PM EDT documented as of this encounter Care Teams Barkeeper Relationship Specialty Start Date End Date Oren Pressley MD [address] [place] [address] PCP - General Internal Medicine 02/09/23 Sima Trejo MD [address] [phone] Medical Oncologist Hematology and Oncology 08/02/23 documented as of this encounter
--- OUTSIDE RECORDS SUMMARY | 2025-01-19 14:25 | XMS_ITS | Encounter Summary ---
Author Organization [facility] Address [address] [id number] Care Team Providers Care Microbiological Analyst Name Role Phone Oren Pressley MD Primary Care Provider [phone] Sima Trejo MD Unavailable [phone] Reason for Visit * Reason Comments Social Work/navigation Follow-up Encounter Details Date Type Department Care Team (Late st Contact Info) Description 01/09/2025 Social Work [facility] at [address] [address] Jo Helms, [place] [address] Social History Tobacco Use Types Packs/Day Years [...] on file documented as of this encounter Functional Status * Calculated C-SSRS [...] Stanton RN documented as of this encounter Miscellaneous Notes * Clinician Note - oJ Helms LCSW - 01/09/2025 2:49 PM EDT Encounter Type: In Person Visit Disease Status: Initial Psych Onc Contact Clinic Location: [facility] Disease Type: Leukemia Services Provided: Psychosocial Monitoring Intervention Level: 3 Units (1 unit = 15 minutes): 2 Narrative: GAMING DEALER student met with patient. Introduced self and availability of [facility] support services. Patient was friendly, alert, oriented in conversation. Patient reports that she lives alone, neighbor provides her transportation to medical appointments, has a cancer policy. Patient expressed concern about billing for treatment. GAMING DEALER student provided patient with financial navigators name and phone number. Denied additional practical resource concerns or barriers to care. Provided patient withinformation about psychosocial support services the CAR LUBRICATOR can provide. Patient expressed understanding of how to reach out and willingness to do so if the need arises. Deena Newton MSW Student SANDEEP Cavanaugh LCSW [facility] [place] [facility] Psych Oncology Services [phone] documented in this encounter Plan of Treatment Upcoming Encounters Date Type Department Care Team (Late st Contact Info) Description 02/06/2025 10:30 AM EDT Office Visit [facility] at [facility] [address] [place] [address] 02/06/2025 11:30 AM EDT Office Visit [facility] at [facility] [address] [place] [place] [address] Sima Trejo MD [address] [address] 02/06/2025 12:00 PM EDT Infusion [facility] at [facility] [address] [place] [place] [address] documented as of this encounter Visit Diagnoses Not on filedocumented in this encounter Additional Health Concerns Assessment Noted Time PHQ-9 Depression Total Score: 5 11/15/19 25 9:00 AM EDT A fall risk assessment has been complete d for the patient 08/08/2024 2:12 PM EDT documented as of this encounter Care Teams Microbiological Analyst Relationship Specialty Start Date End Date Oren Pressley MD [address] [place] [address] PCP - General Internal Medicine 02/09/23 Sima Trejo MD [address] [phone] Medical Oncologist Hematology and Oncology 08/02/23 documented as of this encounter
--- OUTSIDE RECORDS SUMMARY | 2025-01-19 14:25 | XMS_ITS | Encounter Summary ---
Author Organization Healthcare Address [address] [place] [address] Care Team Providers Care Events Intern Name Role Phone Pcp, No Primary Care Provider Oren Hull MD Primary Care Provider Sima Trejo MD Unavailable [phone] Encounter Details Date Type Department Care Team (Late st Contact Info) Description 06/02/2021 Orders Only [facility] at [address] [place] [address] Sima Trejo MD [address] [place] [address] [address] Social History Tobacco Use Types [...] Description 02/06/2025 10:30 AM EDT Office Visit [facility] at [address] [place] [address] 02/06/2025 11:30 AM EDT Office Visit [facility] at [address] [place] [address] Sima Trejo MD [address] [address] 02/06/2025 12:00 PM EDT Infusion [facility] at [facility] [address] [place] [address] documented as of this encounter Procedures Procedure Name Priority Date/Time Associated Diagnosis Comments LACTATE DEHYDROGENASE, PLASMA Routine 06/02/2021 12:06 PM EST documented in this encounter Results * Lactate Dehydrogenase, Plasma (06/02/2021 12:06 PM EST) External LDH Lactate Dehydrogenase 173 135 - 233 U/L [facility] 06/02/2021 12:0 6 PM EST 06/02/2021 12:41 PM EST us Sima Trejo MD LAB BLOOD ORDERABLES Final Re sult Performing Organization Address City/State/[facility] Co de Phone Number [facility] [address] [place] [address], documented in this encounter Visit Diagnoses Not on filedocumented in this encounter Care Teams Events Intern Relationship Specialty Start Date End Date Pcp, No [address] [place] [address] PCP - General 12/02/20 02/08/23 Oren Pressley MD [address] [place] [address] PCP - General Internal Medicine 02/09/23 Sima Trejo MD [address] [address] Medical Oncologist Hematology and Oncology 08/02/23 documented as of this encounter
--- OUTSIDE RECORDS SUMMARY | 2025-01-19 14:25 | XMS_ITS | Encounter Summary ---
Author Organization Healthcare Address [address] [place] [address] Care Team Providers Care Form Builder Helper Name Role Phone Pcp, No Primary Care Provider Oren Hull MD Primary Care Provider [phone] Sima Trejo MD Unavailable [phone] Encounter Details Date Type Department Care Team (Late st Contact Info) Description 02/17/2022 Orders Only [facility] at [address] [place] [address] Sima Trejo MD [address] [place] [address] [address] Social History Tobacco Use Types [...] Description 02/06/2025 10:30 AM EDT Office Visit [facility] at [address] [place] [address] 02/06/2025 11:30 AM EDT Office Visit [facility] at [address] [place] [address] Sima Trejo MD [address] [place] [address] [address] 02/06/2025 12:00 PM EDT Infusion [facility] at [facility] [address] [place] [address] documented as of this encounter Procedures Procedure Name Priority Date/Time Associated Diagnosis Comments URIC ACID, PLASMA Routine 02/17/2022 12: 42 PM EDT documented in this encounter Results * (ABNORMAL) Uric Acid, Plasma (02/17/2022 12:42 PM EDT) External Uric Acid 7.5(H) 2.4 - 5.7 mg/dL [facility] Comment: Reference ranges are based on population norms and do not necessarily correlate with treatment targets. In patients with an established diagnosis of gout undergoing Urate Lowering Therapy (ULT), the 2012 [employer] Guidelines for Management of Gout recommend a target uric acid level of < 6 mg/dL in all patients, or lower in certain circumstances. Arthritis Care and Research Vol 64 No , Jan. 2012 [employer] 02/17/2022 12:4 2 PM EDT 02/17/2022 12:54 PM EDT us Sima Trejo MD LAB BLOOD ORDERABLES Final Re sult [facility] [address] [place] [address], documented in this encounter Visit Diagnoses Not on filedocumented in this encounter Care Teams Form Builder Helper Relationship Specialty Start Date End Date Pcp, No [address] [place] [address] PCP - General 12/02/20 02/08/23 Oren Pressley MD [address] [place] [address] PCP - General Internal Medicine 02/09/23 [place] [address] [place] [address] Medical Oncologist Hematology and Oncology 08/02/23 documented as of this encounter
--- OUTSIDE RECORDS SUMMARY | 2025-01-19 14:25 | XMS_ITS | Encounter Summary ---
Author Organization [employer] ([place], [place], [place], [place]) Address [address] [place] [address] Care Team Providers Care Welding Production Supervisor Name Role Phone Oren Pressley MD Primary Care Provider [phone] Encounter Details Date Type Department Care Team (Late st Contact Info) Description 06/22/2019 Transcribed Document [facility] Family Medicine [address] [place] [address] ProviderLaurel MD [address] [place], [place] [id number] Social History Tobacco Use Types Packs/Day Years Used Date Smoking Tobacco: Never Assessed Comments Unknown Sex and Gender Information Value Date Recorded Sex Assigned at Not on file Legal Sex Female 4:44 PM CDT Gender Identity Not on file Sexual Orientation Not on file documented as of this encounter Miscellaneous Notes * Cerner Conversion Note - Historical ProviderMD - 06/22/2019 12:31 PM DOMESTIC TECHNICIAN Stroke/Warfarin Instructions Entered On: 06/22/2019 12:31 EST Performed On: 06/22/2019 12:31 EST by EDWINA VALIENTE RN Stroke/Warfarin Instructions Stroke/TIA Discharge Ins [...] 06/22/2019 12:31 EST Electronically signed by Robb [facility] Conversion Pilot Cerner at 08/07/2022 2:02 PM CDT documented in this encounter Plan of Treatment Not on file documented as of this encounter Visit Diagnoses Not on filedocumented in this encounter Care Teams Welding Production Supervisor Relationship Specialty Start Date End Date Oren Pressley MD [address] [place] [address] PCP - General Adolescent Medicine 05/17/23 documented as of this encounter
--- OUTSIDE RECORDS SUMMARY | 2025-01-19 14:25 | XMS_ITS | Encounter Summary ---
Author Organization [employer] ([place], [place], [place], [place]) Address [address] [place] [address] Care Team Providers Care Imcu Specialist Name Role Phone Oren Pressley MD Primary Care Provider [phone] Encounter Details Date Type Department Care Team (Late st Contact Info) Description 06/22/2019 Transcribed Document [facility] Family Medicine [facility] [place] [address] ProviderLaurel MD [address] [place] [id number] Social History Tobacco Use Types Packs/Day Years Used Date Smoking Tobacco: Never Assessed Comments Unknown Sex and Gender Information Value Date Recorded Sex Assigned at Not on file Legal Sex Female 4:44 PM CDT Gender Identity Not on file Sexual Orientation Not on file documented as of this encounter Miscellaneous Notes * Cerner Conversion Note - Laurel Mayer MD - 06/22/2019 12:28 PM SAP ABAP DEVELOPER Patient Education Materials Follows: Electrical Cardioversion, Care [...] to help you relax (sedative). ??? Take btas-pdi-uoehjel and prescription medicines only as told by [...] 01/24/2014 Document Revised: 11/06/2016 Document Reviewed: 10/09/2016 [employer] Interactive Patient Education ? 2019 [employer]. Moderate Conscious Sedation, Adult, Care After These [...] you are awake and alert. ??? Take sdlk-mly-ihnidxz and prescription medicines only as told by [...] 01/24/2014 Document Revised: 09/07/2016 Document Reviewed: 07/25/2016 [employer] Interactive Patient Education ? 2019 [employer]. Electronically signed by Robb [facility] Conversion Prison Officer Cerner at 08/07/2022 2:11 PM CDT documented in this encounter Plan of Treatment Not on file documented as of this encounter Visit Diagnoses Not on filedocumented in this encounter Care Teams Imcu Specialist Relationship Specialty Start Date End Date Oren Pressley MD [address] [place] [address] PCP - General Adolescent Medicine 05/17/23 documented as of this encounter
--- OUTSIDE RECORDS SUMMARY | 2025-01-19 14:25 | XMS_ITS | Encounter Summary ---
Author Organization [employer] ([place], [place], [place], [place]) Address [address] [place] [address] Care Team Providers Care Library Science Instructor Name Role Phone Oren Pressley MD Primary Care Provider [phone] Encounter Details Date Type Department Care Team (Late st Contact Info) Description 05/16/2018 Transcribed Document [facility] Family Medicine [facility] [place] [address] ProviderLaurel MD [address] [place] [id number] Social History Tobacco Use Types Packs/Day Years Used Date Smoking Tobacco: Never Assessed Comments Unknown Sex and Gender Information Value Date Recorded Sex Assigned at Not on file Legal Sex Female 4:44 PM CDT Gender Identity Not on file Sexual Orientation Not on file documented as of this encounter Miscellaneous Notes * Cerner Conversion Note - Historical ProviderMD - 05/16/2018 10:29 AM ORNAMENT MAKER HAND Discharge Instructions Entered On: 05/16/2018 10:30 EST [...] KASSIDY SAWYER RN - 05/16/2018 10:29 EST documented in this encounter Plan of Treatment Not on file documented as of this encounter Visit Diagnoses Not on filedocumented in this encounter Care Teams Library Science Instructor Relationship Specialty Start Date End Date Oren Pressley MD [address] [place] [address] PCP - General Adolescent Medicine 05/17/23 documented as of this encounter
--- OUTSIDE RECORDS SUMMARY | 2025-01-19 14:25 | XMS_ITS | Encounter Summary ---
Author Organization [employer] ([place], [place], [place], [place]) Address [address] [place] [address] Care Team Providers Care Occupational Health Physiotherapist Name Role Phone Oren Corbin MD Primary Care Provider [phone] Encounter Details Date Type Department Care Team (Late st Contact Info) Description 05/16/2018 Transcribed Document [facility] Family Medicine [facility] [place] [address] ProviderLaurel MD [address] [place] [address] Social History Tobacco Use Types Packs/Day Years Used Date Smoking Tobacco: Never Assessed Comments Unknown Sex and Gender Information Value Date Recorded Sex Assigned at Not on file Legal Sex Female 4:44 PM CDT Gender Identity Not on file Sexual Orientation Not on file documented as of this encounter Miscellaneous Notes * Cerner Conversion Note - Laurel ProviderMD - 05/16/2018 10:30 AM WAGON DRIVER SALESPERSON [address] [place] [address] Patient Copy Patient Information: Name: EFRAIN IVERSON [facility] Current Date: 05/16/2018 10:30:23 : 1945 Patient Address: [place] [address] Patient Attending Physician: TAMIKO NIETO MD-DMITRY Primary Care Provider: OREN CORBIN (REF)DELILAH Primary Care Provider Discharge Diagnosis: Atrial fibrillation Weight on Admission: 230 lb, 0 oz Comment: Follow-up Instructions: With: Address: When: GIOVANNI SHAH [address] [facility], SECTION OF CARDIOLOGY [place] [id number] Business (1) Within 1 month Discharge Instructions: [...] you are awake and alert. ??? Take gqvb-mtv-ijspohz and prescription medicines only as told by [...] 01/24/2014 Document Revised: 09/07/2016 Document Reviewed: 07/25/2016 [email or web address] Interactive Patient Education ? 2017 [email or web address] Inc. Electrical Cardioversion, Care After This sheet [...] to help you relax (sedative). ??? Take nrdt-dkp-nsibiuq and prescription medicines only as told by [...] 01/24/2014 Document Revised: 11/06/2016 Document Reviewed: 10/09/2016 [email or web address] Interactive Patient Education ? 2017 [employer]. Medication Leaflets: amiodarone (oral) (A mi [place] [...] may report side effects to FDA at 2-211-OXV-0609. What other drugs will affect amiodarone? Sometimes [...] can affect amiodarone. This includes prescription and cyxi-hwl-fhztniw medicines, vitamins, and herbal products. Not all [...] to ensure that the information provided by [employer]. ('[employer]') is accurate, up-to-date, and complete, but no guarantee is made to that effect. Drug information contained herein may be time sensitive. [employer] information has been compiled for use by healthcare practitioners and consumers in the [place] and therefore [employer] does not warrant that uses outside of the [place] are appropriate, unless specifically indicated otherwise. [employer] drug information does not endorse drugs, diagnose patients or recommend therapy. [employer] drug information is an informational resource designed [...] effective or appropriate for any given patient. [employer] does not assume any responsibility for any aspect of healthcare administered with the aid of information [employer] provides. The information contained herein is not intended to cover all possible uses, directions, precautions, warnings, drug interactions, allergic reactions, or adverse effects. If you have questions about the drugs you are taking, check with your doctor, nurse or pharmacist. Copyright 4660-2883 Cerner [employer]. Version: 7.01. Revision Date: 02/22/2018. CIGARETTE SMOKING: The facts are clear, cigarette smoking will shorten your life. Smoking can cause many illnesses along the way. As a healthcare provider, we recommend that you stop smoking. Assistance with quitting is available by contacting 7-470-SHTN-NOW. This is a free resource providing counseling, [...] Be sure to sign up for the [employer] patient portal, which gives you 09/11 access to your medical information ??? including these discharge instructions ??? using your computer, smartphone, or tablet. Just go to [employer] to get started. Questions? Call . [facility] would like to thank you for allowing us to assist you with your healthcare needs. CARL Hopson PRISCILLA SMI, (or sales donor recruitment representative) have received the above patient education materials/instructions and have verbalized understanding: Patient Signature _ Date/Time Patient Foundation Coordinator Signature (if needed) Date/Time Clinician/Hospital Foundation Coordinator Signature (if needed) Date/Time Electronically signed by Interface, [facility] Conversion Timber Hand Cerner at 08/07/2022 2:22 PM CDT documented in this encounter Plan of Treatment Not on file documented as of this encounter Visit Diagnoses Not on filedocumented in this encounter Care Teams Occupational Health Physiotherapist Relationship Specialty Start Date End Date Oren Corbin MD [address] [place] [address] PCP - General Adolescent Medicine 05/17/23 documented as of this encounter
--- OUTSIDE RECORDS SUMMARY | 2025-01-19 14:25 | XMS_ITS | Encounter Summary ---
Author Organization Healthcare Address [address] [place] [address] Care Team Providers Care Podiatry Assistant Name Role Phone Pcp, No Primary Care Provider Oren Hull MD Primary Care Provider Sima Trejo MD Unavailable [phone] Encounter Details Date Type Department Care Team (Late st Contact Info) Description 03/31/2021 Orders Only [facility] at [address] [place] [address] Sima Trejo MD [address] [address] Social History Tobacco Use Types [...] 02/06/2025 10:30 AM EDT Office Visit [facility] at [address] [place] [address] 02/06/2025 11:30 AM EDT Office Visit [facility] at [address] [place] [address] Sima Trejo MD [address] [address] 02/06/2025 12:00 PM EDT Infusion [facility] at [facility] [address] [place] [address] documented as of this encounter Procedures Procedure Name Priority Date/Time Associated Diagnosis Comments LACTATE DEHYDROGENASE, PLASMA Routine 03/31/2021 12:13 PM EST documented in this encounter Results * Lactate Dehydrogenase, Plasma (03/31/2021 12:13 PM EST) External LDH Lactate Dehydrogenase 177 135 - 233 U/L [facility] 03/31/2021 12:1 3 PM EST 03/31/2021 1:17 PM EST us Sima Trejo MD LAB BLOOD ORDERABLES Final Re sult Performing Organization Address City/State/[facility] Co de Phone Number [facility] [address] [place] [address], documented in this encounter Visit Diagnoses Not on filedocumented in this encounter Care Teams Podiatry Assistant Relationship Specialty Start Date End Date Pcp, No [address] [place] [address] PCP - General 12/02/20 02/08/23 Oren Pressley MD [address] [place] [address] PCP - General Internal Medicine 02/09/23 Sima Trejo MD [address] [address] Medical Oncologist Hematology and Oncology 08/02/23 documented as of this encounter
--- OUTSIDE RECORDS SUMMARY | 2025-01-19 14:25 | XMS_ITS | Encounter Summary ---
Author Organization Healthcare Address [address] [place] [address] Care Team Providers Care Manufacturing Weaver Name Role Phone Pcp, No Primary Care Provider Oren Hull MD Primary Care Provider Sima Trejo MD Unavailable [phone] Encounter Details Date Type Department Care Team (Late st Contact Info) Description 03/31/2021 Orders Only [facility] at [address] [place] [address] Sima Trejo MD [address] [address] Social History Tobacco Use Types [...] Description 02/06/2025 10:30 AM EDT Office Visit [facility] [address] [place] [address] 02/06/2025 11:30 AM EDT Office Visit [facility] at [address] [place] [address] Sima Trejo MD [address] [address] 02/06/2025 12:00 PM EDT Infusion [facility] at [facility] [place] [address] documented as of this encounter Procedures Procedure Name Priority Date/Time Associated Diagnosis Comments COMPREHENSIVE METABOLIC PANEL, PLASMA Routine 03/31/2021 12:13 PM EST documented in this encounter Results * (ABNORMAL) Comprehensive Metabolic Panel, Plasma (03/31/2021 12:13 PM EST) External Glucose 113(H) 74 - 100 mg/dL [facility] External BUN 41(H) 6 - 20 mg/dL [facility] External Creatinine Blood 1.91(H) 0.50 - 0.95 mg/dL [facility] External BUN/Creat Ratio 21(H) 10 - 20 (calc) [facility] External Sodium 136 136 - 145 mmol/L [facility] External Potassium 4.9 3.4 - 5.0 mmol/L [facility] External Chloride 99 98 - 107 mmol/L [facility] External Carbon Dioxide 26 22 - 31 mmol/L [facility] External Anion Gap (AG) 11 7 - 25 (calc) [facility] External Calcium 9.3 8.6 - 10.2 mg/dL [facility] External Total Protein 6.7 6.4 - 8.3 g/dL [facility] External Albumin 4.4 3.5 - 5.2 g/dL [facility] External Globulin 2.3 1.5 - 4.5 g/dL (calc) [facility] External Albumin/Globulin Ratio 1.9 1.1 - 2.5 (calc) [facility] External Bilirubin Total 0.4 0.1 - 1.2 mg/dL [facility] External Alkaline Phosphatase 54 30 - 121 U/L [facility] External AST (SGOT) 15 0 - 32 U/L [facility] External ALT (SGPT) 12 0 - 33 U/L [facility] External EGFR (If AFR/AM) 29(A) >=60 [facility] External Estimated GFR 25(A) >=60 [facility] Comment: NOTE Chronic kidney disease [...] MD LAB BLOOD ORDERABLES Final Re sult [facility] [address] [place] [address], documented in this encounter Visit Diagnoses Not on filedocumented in this encounter Care Teams Manufacturing Weaver Relationship Specialty Start Date End Date Pcp, No [address] [place] [address] PCP - General 12/02/20 02/08/23 Oren Pressley MD [address] [facility] [address] [place] [address] PCP - General Internal Medicine 02/09/23 Sima Trejo MD [address] [address] Medical Oncologist Hematology and Oncology 08/02/23 documented as of this encounter
--- OUTSIDE RECORDS SUMMARY | 2025-01-19 14:25 | XMS_ITS | Encounter Summary ---
Author Organization Healthcare Address [address] [place] [address] Care Team Providers Care Saute Chef Name Role Phone Pcp, No Primary Care Provider Oren Hull MD Primary Care Provider Sima Trejo MD Unavailable [phone] Encounter Details Date Type Department Care Team (Late st Contact Info) Description 03/31/2021 Orders Only [facility] at [address] [place] [address] Sima Trejo MD [address] [address] Social History Tobacco Use Types [...] Description 02/06/2025 10:30 AM EDT Office Visit [facility] at [address] [place] [address] 02/06/2025 11:30 AM EDT Office Visit [facility] at [address] [place] [address] Sima Trejo MD [address] [address] 02/06/2025 12:00 PM EDT Infusion [facility] at [address] [address] documented as of this encounter Procedures Procedure Name Priority Date/Time Associated Diagnosis Comments CBC WITH AUTO DIFFERENTIAL Routine 03/31/2021 12:13 PM EST documented in this encounter Results * (ABNORMAL) CBC and Differential (03/31/2021 12:13 PM EST) External WBC 8.0 3.8 - 10.8 K/uL [facility] External Red Blood Cell (RBC) 4.07 3.80 - 5.20 M/uL [facility] External Hemoglobin 12.1 12.0 - 16.0 G/DL [facility] External Hematocrit 36.2 35.0 - 47.0 % [facility] External MCV 89 80 - 100 fL [facility] External MCH 30 26 - 35 PG [facility] External MCHC 33 32 - 36 G/DL [facility] External RDW 17.5(H) 11.0 - 15.0 % [facility] External Mean Platelet Volume 8.7 6.2 - 10.5 fL [facility] External Platelets 148 130 - 400 K/uL [facility] External Neutrophil# 4.6 1.6 - 8.4 K/uL [facility] External Lymphocyte# 2.6 0.4 - 5.1 K/uL [facility] External Absolute Monocyte (Abs Camas) 0.6 0.0 - 1.2 K/uL [facility] External Eosinophils# 0.1 0.0 - 0.8 K/uL [facility] External Baso# 0.1 0.0 - 0.3 K/uL [facility] External Neutrophils % 57.9 42.0 - 78.0 % [facility] External Lymphocyte % 32.4 11.0 - 47.0 % [facility] External Monocyte % 8.0 0.0 - 11.0 % [facility] External Eosinophil% 0.8 0.0 - 7.0 % [facility] External Basophil % 0.9 0.0 - 3.0 % [facility] External Nucleated RBC%-Auto 0.0 0.0 - 0.9 % [facility] External Nucleated RBC Absolute 0.00 Not Estab. K/uL [facility] 03/31/2021 12:1 3 PM EST 03/31/2021 1:17 PM EST us Sima Trejo MD LAB BLOOD ORDERABLES Final Re sult [facility] [address] [place] [address], documented in this encounter Visit Diagnoses Not on filedocumented in this encounter Care Teams Saute Chef Relationship Specialty Start Date End Date Pcp, No [address] [place] [address] PCP - General 12/02/20 02/08/23 Oren Pressley MD [address] [place] [address] PCP - General Internal Medicine 02/09/23 Sima Trejo MD [address] [address] Medical Oncologist Hematology and Oncology 08/02/23 documented as of this encounter
--- OUTSIDE RECORDS SUMMARY | 2025-01-19 14:25 | XMS_ITS | Encounter Summary ---
Author Organization Healthcare Address [address] [place] [address] Care Team Providers Care Fishery Division Chief Name Role Phone Pcp, No Primary Care Provider Oren Hull MD Primary Care Provider [phone] Sima Trejo MD Unavailable [phone] Encounter Details Date Type Department Care Team (Late st Contact Info) Description 08/04/2021 Orders Only [facility] at [address] [place] [address] Sima Trejo MD [address] [place] [address] [address] Social History Tobacco Use Types [...] Description 02/06/2025 10:30 AM EDT Office Visit [facility] at [address] [place] [address] 02/06/2025 11:30 AM EDT Office Visit [facility] at [address] [place] [address] Sima Trejo MD [address] [place] [address] [address] 02/06/2025 12:00 PM EDT Infusion [facility] at [address] [address] documented as of this encounter Procedures Procedure Name Priority Date/Time Associated Diagnosis Comments CBC WITH AUTO DIFFERENTIAL Routine 08/04/2021 12:43 PM EDT documented in this encounter Results * (ABNORMAL) CBC and Differential (08/04/2021 12:43 PM EDT) External WBC 6.0 3.8 - 10.8 K/uL [facility] External Red Blood Cell (RBC) 3.89 3.80 - 5.20 M/uL [facility] External Hemoglobin 11.9(L) 12.0 - 16.0 G/DL [facility] External Hematocrit 36.0 35.0 - 47.0 % [facility] External MCV 93 80 - 100 fL [facility] External MCH 31 26 - 35 PG [facility] External MCHC 33 32 - 36 G/DL [facility] External RDW 15.0 11.0 - 15.0 % [facility] External Mean Platelet Volume 7.1 6.2 - 10.5 fL [facility] External Platelets 131 130 - 400 K/uL [facility] External Neutrophil# 4.0 1.6 - 8.4 K/uL [facility] External Lymphocyte# 1.3 0.4 - 5.1 K/uL [facility] External Absolute Monocyte (Abs Callaway) 0.4 0.0 - 1.2 K/uL [facility] External Eosinophils# 0.1 0.0 - 0.8 K/uL [facility] External Baso# 0.0 0.0 - 0.3 K/uL [facility] External Neutrophils % 68.0 42.0 - 78.0 % [facility] External Lymphocyte % 21.8 11.0 - 47.0 % [facility] External Monocyte % 7.3 0.0 - 11.0 % [facility] External Eosinophil% 2.1 0.0 - 7.0 % [facility] External Basophil % 0.8 0.0 - 3.0 % [facility] External Nucleated RBC%-Auto 0.1 0.0 - 0.9 % [facility] External Nucleated RBC Absolute 0.01 Not Estab. K/uL [facility] 08/04/2021 12:4 3 PM EDT 08/04/2021 1:08 PM EDT us Sima Trejo MD LAB BLOOD ORDERABLES Final Re sult [facility] [address] [place] [address], documented in this encounter Visit Diagnoses Not on filedocumented in this encounter Care Teams Fishery Division Chief Relationship Specialty Start Date End Date Pcp, No [address] [place] [address] PCP - General 12/02/20 02/08/23 Oren Pressley MD [address] [place] [address] PCP - General Internal Medicine 02/09/23 Sima Trejo MD [address] [address] Medical Oncologist Hematology and Oncology 08/02/23 documented as of this encounter
--- OUTSIDE RECORDS SUMMARY | 2025-01-19 14:25 | XMS_ITS | Encounter Summary ---
Author Organization Healthcare Address [address] [place] [address] Care Team Providers Care Refrigeration Service Technician Name Role Phone Pcp, No Primary Care Provider Oren Hull MD Primary Care Provider [phone] Sima Trejo MD Unavailable [phone] Encounter Details Date Type Department Care Team (Late st Contact Info) Description 06/02/2021 Orders Only [facility] at [address] [place] [address] Sima Trejo MD [address] [place] [address] [address] Social History Tobacco Use Types [...] Description 02/06/2025 10:30 AM EDT Office Visit [facility] at [address] [place] [address] 02/06/2025 11:30 AM EDT Office Visit [facility] at [address] [place] [address] Sima Trejo MD [address] [place] [address] [address] 02/06/2025 12:00 PM EDT Infusion [facility] at [facility] [place] [address] documented as of this encounter Procedures Procedure Name Priority Date/Time Associated Diagnosis Comments COMPREHENSIVE METABOLIC PANEL, PLASMA Routine 06/02/2021 12:06 PM EST documented in this encounter Results * (ABNORMAL) Comprehensive Metabolic Panel, Plasma (06/02/2021 12:06 PM EST) External Glucose 119(H) 74 - 100 mg/dL [facility] External BUN 27(H) 6 - 20 mg/dL [facility] External Creatinine Blood 1.62(H) 0.50 - 0.95 mg/dL [facility] External BUN/Creat Ratio 17 10 - 20 (calc) [facility] External Sodium 142 136 - 145 mmol/L [facility] External Potassium 4.3 3.4 - 5.0 mmol/L [facility] External Chloride 103 98 - 107 mmol/L [facility] External Carbon Dioxide 24 22 - 31 mmol/L [facility] External Anion Gap (AG) 15 7 - 25 (calc) [facility] External Calcium 9.3 8.6 - 10.2 mg/dL [facility] External Total Protein 6.4 6.4 - 8.3 g/dL [facility] External Albumin 4.4 3.5 - 5.2 g/dL [facility] External Globulin 2.0 1.5 - 4.5 g/dL (calc) [facility] External Albumin/Globulin Ratio 2.2 1.1 - 2.5 (calc) [facility] External Bilirubin Total 0.3 0.1 - 1.2 mg/dL [facility] External Alkaline Phosphatase 82 30 - 121 U/L [facility] External AST (SGOT) 17 0 - 32 U/L [facility] External ALT (SGPT) 17 0 - 33 U/L [facility] External EGFR (If AFR/AM) 35(A) >=60 [facility] External Estimated GFR 30(A) >=60 [facility] Comment: NOTE Chronic kidney disease is [...] BLOOD ORDERABLES Final Re sult [facility] [address] [place] [address], documented in this encounter Visit Diagnoses Not on filedocumented in this encounter Care Teams Refrigeration Service Technician Relationship Specialty Start Date End Date Pcp, No [address] [place] [address] PCP - General 12/02/20 02/08/23 Oren Pressley MD 1210 [facility] [address] [place] [address] PCP - General Internal Medicine 02/09/23 Sima Trejo MD [address] [address] Medical Oncologist Hematology and Oncology 08/02/23 documented as of this encounter
--- OUTSIDE RECORDS SUMMARY | 2025-01-19 14:25 | XMS_ITS | Encounter Summary ---
Author Organization Healthcare Address [address] [place] [address] Care Team Providers Care Bioinformaticist Name Role Phone Pcp, No Primary Care Provider Oren Hull MD Primary Care Provider [phone] Sima Trejo MD Unavailable [phone] Encounter Details Date Type Department Care Team (Late st Contact Info) Description 12/02/2020 Orders Only [facility] at [address] [place] [address] Sima Trejo MD [address] [address] Social History Tobacco Use Types [...] Description 02/06/2025 10:30 AM EDT Office Visit [facility] at [address] [place] [address] 02/06/2025 11:30 AM EDT Office Visit [facility] at [address] [place] [address] Sima Trejo MD [address] [address] 02/06/2025 12:00 PM EDT Infusion [facility] at [facility] [address] [place] [address] documented as of this encounter Procedures Procedure Name Priority Date/Time Associated Diagnosis Comments LACTATE DEHYDROGENASE, PLASMA Routine 12/02/2020 12:56 PM EDT documented in this encounter Results * Lactate Dehydrogenase, Plasma (12/02/2020 12:56 PM EDT) External LDH Lactate Dehydrogenase 184 135 - 233 U/L [facility] 12/02/2020 12:5 6 PM EDT 12/02/2020 1:26 PM EDT us Sima Trejo MD LAB BLOOD ORDERABLES Final Re sult Performing Organization Address City/State/[facility] Co de Phone Number [facility] [address] [place] [address], documented in this encounter Visit Diagnoses Not on filedocumented in this encounter Care Teams Bioinformaticist Relationship Specialty Start Date End Date Pcp, No [address] [place] [address] PCP - General 12/02/20 02/08/23 Oren Pressley MD [address] [place] [address] PCP - General Internal Medicine 02/09/23 Sima Trejo MD [address] [place] [address] Medical Oncologist Hematology and Oncology 08/02/23 documented as of this encounter
--- OUTSIDE RECORDS SUMMARY | 2025-01-19 14:25 | XMS_ITS | Encounter Summary ---
Author Organization [employer] ([place], [place], [place], [place]) Address [address] [place] [address] Care Team Providers Care Loan Service Officer Name Role Phone Oren Corbin MD Primary Care Provider [phone] Encounter Details Date Type Department Care Team (Late st Contact Info) Description 06/22/2019 Transcribed Document [facility] Family [place] [facility] [place] [address] ProviderLaurel MD [address] [place] [address] Social History Tobacco Use Types Packs/Day Years Used Date Smoking Tobacco: Never Assessed Comments Unknown Sex and Gender Information Value Date Recorded Sex Assigned at Not on file Legal Sex Female 4:44 PM CDT Gender Identity Not on file Sexual Orientation Not on file documented as of this encounter Miscellaneous Notes * Cerner Conversion Note - Laurel ProviderMD - 06/22/2019 12:31 PM PRODUCTION SPECIALIST [facility] [place] [address] EFRAIN IVERSON [facility] :1945 Visit Time:06/22/2019 Your Visit [...] 05, at 9:00 am Where: [address] [facility] [place] [phone] (1) Warfarin Instructions Indication for Warfarin [...] instructions 0.5 Tab Oral Daily 06/22/2019 Please molded goods spot picker your prescription for flecinide and start it [...] to help you relax (sedative). ??? Take qzpj-wsp-uslkien and prescription medicines only as told by [...] 01/24/2014 Document Revised: 11/06/2016 Document Reviewed: 10/09/2016 [employer] Interactive Patient Education ?? 2019 [employer] Moderate Conscious Sedation, Adult, Care After [...] you are awake and alert. ??? Take eyux-dpe-wuyskzd and prescription medicines only as told by [...] 01/24/2014 Document Revised: 09/07/2016 Document Reviewed: 07/25/2016 [employer] Interactive Patient Education ?? 2019 [employer]. flecainide (FLEK a nide) Isaiah What is [...] may report side effects to FDA at 1-360-FBD-0850. What other drugs will affect flecainide? Tell your doctor about all your other medicines, especially: ?? digoxin; ?? a diuretic or 'water pill'; ?? a beta-mari (atenolol, metoprolol, propranolol, sotalol, and others); ?? other heart medications such as amiodarone, diltiazem, disopyramide, nifedipine, quinidine, or verapamil; or ?? seizure medication. This list is not complete. Other drugs may affect flecainide, including prescription and cknh-qsx-zpwviii medicines, vitamins, and herbal products. Not all [...] to ensure that the information provided by [employer]. ('[employer]') is accurate, up-to-date, and complete, but no guarantee is made to that effect. Drug information contained herein may be time sensitive. [employer] information has been compiled for use by healthcare practitioners and consumers in the [place] and therefore [employer] does not warrant that uses outside of the [place] are appropriate, unless specifically indicated otherwise. [employer] drug information does not endorse drugs, diagnose patients or recommend therapy. [employer] drug information is an informational resource designed [...] effective or appropriate for any given patient. [employer] does not assume any responsibility for any aspect of healthcare administered with the aid of information [employer] provides. The information contained herein is not intended to cover all possible uses, directions, precautions, warnings, drug interactions, allergic reactions, or adverse effects. If you have questions about the drugs you are taking, check with your doctor, nurse or pharmacist. Copyright 0574-5515 [employer]. Version: 4.01. Revision Date: 05/03/2018. Emergency Awareness [...] Assistance with quitting is available by contacting 9-303-XISYNOW. This is a free resource providing counseling, support, and referral. Or you may contact your personal physician. [place] Suicide Prevention Lifeline: The National Suicide Prevention [...] was given the opportunity to ask questions. Patient/Donor Center Technician Name: Patient/Donor Center Technician Signature: Relationship to Patient: Clinician/Hospital Donor Center Technician Signature: Date: Electronically signed by [facility] Conversion Collections Officer Cerner at 08/07/2022 2:20 PM CDT documented in this encounter Plan of Treatment Not on file documented as of this encounter Visit Diagnoses Not on filedocumented in this encounter Care Teams Loan Service Officer Relationship Specialty Start Date End Date Oren Corbin MD [address] [place] [address] PCP - General Adolescent Medicine 05/17/23 documented as of this encounter
--- OUTSIDE RECORDS SUMMARY | 2025-01-19 14:25 | XMS_ITS | Encounter Summary ---
Author Organization [employer] ([place], [place], [place], [place]) Address [address] [place] [address] Care Team Providers Care Direct Marketing Manager Name Role Phone Oren Pressley MD Primary Care Provider [phone] Encounter Details Date Type Department Care Team (Late st Contact Info) Description 06/22/2019 Transcribed Document [facility] [place] [facility] [place] [address] ProviderLaurel MD [address] [place] [id number] Social History Tobacco Use Types Packs/Day Years Used Date Smoking Tobacco: Never Assessed Comments Unknown Sex and Gender Information Value Date Recorded Sex Assigned at Not on file Legal Sex Female 4:44 PM CDT Gender Identity Not on file Sexual Orientation Not on file documented as of this encounter Miscellaneous Notes * Cerner Conversion Note - Historical ProviderMD - 06/22/2019 12:29 PM AIR BRAKE OPERATOR Nursing Discharge Summary Entered On: 06/22/2019 12:29 EST Performed On: 06/22/2019 12:29 EST by EDWNIA VALIENTE RN Discharge Documentation Discharge Date/Time : [...] 06/22/2019 12:29 EST Electronically signed by [facility] Conversion Psychiatric Clinician Cerner at 08/07/2022 2:09 PM CDT documented in this encounter Plan of Treatment Not on file documented as of this encounter Visit Diagnoses Not on filedocumented in this encounter Care Teams Direct Marketing Manager Relationship Specialty Start Date End Date Oren Pressley MD [address] [place] [address] PCP - General Adolescent Medicine 05/17/23 documented as of this encounter
--- OUTSIDE RECORDS SUMMARY | 2025-01-19 14:25 | XMS_ITS | Encounter Summary ---
Author Organization Healthcare Address [address] [place] [address] Care Team Providers Care Hotel Manager Name Role Phone Oren Pressley MD Primary Care Provider [phone] Sima Trejo MD Unavailable [phone] Encounter Details Date Type Department Care Team (Late Contact Info) Description 12/12/2024 Orders Only [facility] at [address] [phone] Jo Nur, PharmD Inpatient Pharmacy [address] [place] [address] Social History Tobacco Use Types Packs/Day Years [...] 02/06/2025 10:30 AM EDT Office Visit [facility] at [address] [phone] 02/06/2025 11:30 AM EDT Office Visit [facility] at [address] [address] Sima Trejo MD [address] [place] [phone] 02/06/2025 12:00 PM EDT Infusion [facility] at [facility] [address] [place] [address] documented as of this encounter Visit Diagnoses Not on filedocumented in this encounter Additional Health Concerns Assessment Noted Time PHQ-9 Depression Total Score: 5 11/15/19 25 9:00 AM EDT A fall risk assessment has been complete d for the patient 08/08/2024 2:12 PM EDT documented as of this encounter Care Teams Hotel Manager Relationship Specialty Start Date End Date Oren Pressley MD [address] [place] [address] PCP - General Internal Medicine 02/09/23 Sima Trejo MD [address] [place] [phone] Medical Oncologist Hematology and Oncology 08/02/23 documented as of this encounter
--- OUTSIDE RECORDS SUMMARY | 2025-01-19 14:25 | XMS_ITS | Encounter Summary ---
Author Organization [employer] ([place], [place], [place], [place]) Address [address] [place] [address] Care Team Providers Care Care Manager Name Role Phone Oren Pressley MD Primary Care Provider [phone] Encounter Details Date Type Department Care Team (Late st Contact Info) Description 05/16/2018 Transcribed Document [facility] [place] [address] ProviderLaurel MD [address] [place] [id number] Social History Tobacco Use Types Packs/Day Years Used Date Smoking Tobacco: Never Assessed Comments Unknown Sex and Gender Information Value Date Recorded Sex Assigned at Not on file Legal Sex Female 4:44 PM CDT Gender Identity Not on file Sexual Orientation Not on file documented as of this encounter Miscellaneous Notes * Cerner Conversion Note - Historical MD Leyla - 05/16/2018 9:45 AM CREDIT OR LOANS OFFICER DATE OF PROCEDURE: 05/16/2018 DIRECT CURRENT CARDIOVERSION [...] CC1: Yasmany Vazquez M.D. Electronically signed by [facility], [facility] Conversion Collection Clerk Cerner at 08/07/2022 2:19 PM CDT documented in this encounter Plan of Treatment Not on file documented as of this encounter Visit Diagnoses Not on filedocumented in this encounter Care Teams Care Manager Relationship Specialty Start Date End Date Oren Pressley MD [address] [place] [address] PCP - General Adolescent Medicine 05/17/23 documented as of this encounter
--- OUTSIDE RECORDS SUMMARY | 2025-01-19 14:25 | XMS_ITS | Encounter Summary ---
Author Organization Healthcare Address [address] 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 Question Answer Date of Assessment Author Little interest or pleasure in doing things Not at all 11/14/2024 9:00 AM EDT Nalini Urrutia RN Feeling down, depressed, or hopeless Several days 11/14/2024 9:00 AM EDT CallNalini RN Patient Health Questionnaire-2 Score 1 11/14/2024 9:00 AM EDT CallNalini RN * Question Answer Date of Assessment Author Trouble falling or staying asleep, or sleeping too much Several days 11/14/2024 9:00 AM EDT CallNalini RN Feeling tired or having little energy More than half the days 11/14/2024 9:00 AM EDT CallNalini RN Poor appetite or overeating Not at all 11/14/2024 9:00 AM EDT CallNalini RN Feeling bad about yourself - or that you are a failure or have let yourself or your family down Not at all 11/14/2024 9:00 AM EDT CallNalini RN Trouble concentrating on things, such as reading the newspaper or watching television Not at all 11/14/2024 9:00 AM EDT CallNalini RN Moving or speaking so slowly that other people could have noticed? Or the opposite - being so fidgety or restless that you have been moving around a lot more than usual. Several days 11/14/2024 9:00 AM EDT CallNalini RN Thoughts that you would be better off or hurting yourself in some way Not at all 11/14/2024 9:00 AM EDT CallNalini RN Patient Health Questionnaire-9 Score 5 11/14/2024 9:00 AM EDT CallNalini RN * Calculated C-SSRS Risk Score (Lifetime/Recent) Answer Date of Assessment Author No Risk Indicated 11/14/2024 9:00 AM EDT Joann Urrutia RN * Question Answer Date of Assessment Author 1. Wish to be (Past 1 Month) No 025 9:00 AM EDT Nalini Urrutia RN 2. Non-Specific Active Suici rachana Thoughts (Past 1 Month) No 11/14/2024 9:00 AM EDT CallDemetris RN 6. Suicidal Behavior (Lifetime) No 9:00 AM EDT Call, Nalini Chavez RN documented as of this encounter Plan of Treatment Upcoming Encounters Date Type Department Care Team (Late st Contact Info) Description 02/06/2025 10:30 AM EDT Office Visit [facility] [address] [place] [phone] 02/06/2025 11:30 AM EDT Office Visit [facility] [address] [place] [phone] Sima Trejo MD [address] [place] [phone] 02/06/2025 12:00 PM EDT Infusion [facility] [address] [place] [phone] documented as of this encounter Visit Diagnoses Diagnosis 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) Chronic lymphoid leukemia, in relapse documented in this encounter Additional Health Concerns Assessment Noted Time PHQ-9 Depression Total Score: 5 11/15/19 25 9:00 AM EDT A fall risk assessment has been complete d for the patient 08/08/2024 2:12 PM EDT documented as of this encounter Care Teams Floor Supervisor Relationship Specialty Start Date End Date Oren Pressley MD [address] [place], [place] [address] PCP - General Internal Medicine 02/09/23 Sima Trejo MD [address] [address] [phone] Medical Oncologist Hematology and Oncology 08/02/23 documented as of this encounter
--- OUTSIDE RECORDS SUMMARY | 2025-01-19 14:25 | XMS_ITS | Encounter Summary ---
Author Organization Healthcare Address [address] [place] [address] Care Team Providers Care Mortgage Loan Officer Name Role Phone Pcp, No Primary Care Provider Oren Hull MD Primary Care Provider [phone] Sima Trejo MD Unavailable [phone] Encounter Details Date Type Department Care Team (Late st Contact Info) Description 02/17/2022 Orders Only [facility] at [address] [place] [address] Sima Trejo MD [address] [address] Social History Tobacco Use Types [...] Office Visit [facility] at [address] [place] [address] 02/06/2025 11:30 AM EDT Office Visit [facility] at [address] [place] [address] Sima Trejo MD [address] [address] 02/06/2025 12:00 PM EDT Infusion [facility] at [facility] [address] [place] [address] documented as of this encounter Procedures Procedure Name Priority Date/Time Associated Diagnosis Comments LACTATE DEHYDROGENASE, PLASMA Routine 02/17/2022 12:42 PM EDT documented in this encounter Results * Lactate Dehydrogenase, Plasma (02/17/2022 12:42 PM EDT) External LDH Lactate Dehydrogenase 163 135 - 233 U/L [facility] 02/17/2022 12:4 2 PM EDT 02/17/2022 12:54 PM EDT us Sima Trejo MD LAB BLOOD ORDERABLES Final Re sult Performing Organization Address City/State/[facility] Co de Phone Number [facility] [address] [place] [address], documented in this encounter Visit Diagnoses Not on filedocumented in this encounter Care Teams Mortgage Loan Officer Relationship Specialty Start Date End Date Pcp, No [address] [place] [address] PCP - General 12/02/20 02/08/23 Oren Pressley MD [address] [place] [address] PCP - General Internal Medicine 02/09/23 Sima Trejo MD [address] [place] [address] Medical Oncologist Hematology and Oncology 08/02/23 documented as of this encounter
--- OUTSIDE RECORDS SUMMARY | 2025-01-19 14:25 | XMS_ITS | Encounter Summary ---
Author Organization Healthcare Address [address] [place] [address] Care Team Providers Care Hand Umbrella Tipper Name Role Phone Pcp, No Primary Care Provider Oren Hull MD Primary Care Provider [phone] Sima Trejo MD Unavailable [phone] Encounter Details Date Type Department Care Team (Late st Contact Info) Description 02/17/2022 Orders Only [facility] at [address] [place] [address] Sima Trejo MD [address] [address] Social History Tobacco Use Types [...] Description 02/06/2025 10:30 AM EDT Office Visit [facility] [address] [place] [address] 02/06/2025 11:30 AM EDT Office Visit [facility] at [address] [place] [address] Sima Trejo MD [address] [address] 02/06/2025 12:00 PM EDT Infusion [facility] at [facility] [place] [address] documented as of this encounter Procedures Procedure Name Priority Date/Time Associated Diagnosis Comments COMPREHENSIVE METABOLIC PANEL, PLASMA Routine 02/17/2022 12:42 PM EDT documented in this encounter Results * (ABNORMAL) Comprehensive Metabolic Panel, Plasma (02/17/2022 12:42 PM EDT) External Glucose 98 74 - 100 mg/dL [facility] External BUN 21(H) 6 - 20 mg/dL [facility] External Creatinine Blood 1.34(H) 0.50 - 0.95 mg/dL [facility] External BUN/Creat Ratio 16 10 - 20 (calc) [facility] External Sodium 138 136 - 145 mmol/L [facility] External Potassium 4.0 3.4 - 5.0 mmol/L [facility] External Chloride 103 98 - 107 mmol/L [facility] External Carbon Dioxide 24 22 - 31 mmol/L [facility] External Anion Gap (AG) 11 7 - 25 (calc) [facility] External Calcium 9.1 8.6 - 10.2 mg/dL [facility] External Total Protein 6.9 6.4 - 8.3 g/dL [facility] External Albumin 4.2 3.5 - 5.2 g/dL [facility] External Globulin 2.7 1.5 - 4.5 g/dL (calc) [facility] External Albumin/Globulin Ratio 1.6 1.1 - 2.5 (calc) [facility] External Bilirubin Total 0.4 0.1 - 1.2 mg/dL [facility] External Alkaline Phosphatase 79 30 - 121 U/L [facility] External AST (SGOT) 17 0 - 32 U/L [facility] External ALT (SGPT) 15 0 - 33 U/L [facility] External Estimated GFR 40(A) >=60 [facility] Comment: NOTE New calculation for GFR (CKD-EPI 2020) is formulated without race adjustment factors at the recommendation of the National Kidney Foundation and [place] [employer]ph[employer]. This calculation has not been validated in women. For pediatric patients refer to https://www.kidney.org/professionals/KDOQI/gfr_calculatorPed 02/17/2022 12:4 2 PM EDT 02/17/2022 12:54 PM EDT us Sima Trejo MD LAB BLOOD ORDERABLES Final Re sult [facility] [address] [place] [address], documented in this encounter Visit Diagnoses Not on filedocumented in this encounter Care Teams Hand Umbrella Tipper Relationship Specialty Start Date End Date Pcp, No [address] [place] [address] PCP - General 12/02/20 02/08/23 Oren Pressley MD [address] [place] [address] PCP - General Internal Medicine 02/09/23 Sima Trejo MD [address] [facility] [address] [place] [address] Medical Oncologist Hematology and Oncology 08/02/23 documented as of this encounter
--- OUTSIDE RECORDS SUMMARY | 2025-01-19 14:25 | XMS_ITS | Encounter Summary ---
Author Organization Healthcare Address [address] [place] [address] Care Team Providers Care Infection Control Practitioner Name Role Phone Pcp, No Primary Care Provider Oren Hull MD Primary Care Provider Sima Trejo MD Unavailable [phone] Encounter Details Date Type Department Care Team (Late st Contact Info) Description 12/02/2020 Orders Only [facility] at [address] [place] [address] Sima Trejo MD [address] [place] [address] [address] Social History Tobacco Use Types [...] 02/06/2025 10:30 AM EDT Office Visit [facility] at [address] [place] [address] 02/06/2025 11:30 AM EDT Office Visit [facility] at [address] [place] [address] Sima Trejo MD [address] [place] [address] [address] 02/06/2025 12:00 PM EDT Infusion [facility] at [address] [address] documented as of this encounter Procedures Procedure Name Priority Date/Time Associated Diagnosis Comments CBC WITH AUTO DIFFERENTIAL Routine 12/02/2020 12:56 PM EDT documented in this encounter Results * (ABNORMAL) CBC and Differential (12/02/2020 12:56 PM EDT) External WBC 8.0 3.8 - 10.8 K/uL [facility] External Red Blood Cell (RBC) 3.74(L) 3.80 - 5.20 M/uL [facility] External Hemoglobin 11.1(L) 12.0 - 16.0 G/DL [facility] External Hematocrit 33.5(L) 35.0 - 47.0 % [facility] External MCV 90 80 - 100 fL [facility] External MCH 30 26 - 35 PG [facility] External MCHC 33 32 - 36 G/DL [facility] External RDW 15.4(H) 11.0 - 15.0 % [facility] External Mean Platelet Volume 8.8 6.2 - 10.5 fL [facility] External Platelets 162 130 - 400 K/uL [facility] External Neutrophil# 5.1 1.6 - 8.4 K/uL [facility] External Lymphocyte# 2.0 0.4 - 5.1 K/uL [facility] External Absolute Monocyte (Abs Polk) 0.8 0.0 - 1.2 K/uL [facility] External Eosinophils# 0.1 0.0 - 0.8 K/uL [facility] External Baso# 0.1 0.0 - 0.3 K/uL [facility] External Neutrophils % 62.9 42.0 - 78.0 % [facility] External Lymphocyte % 25.1 11.0 - 47.0 % [facility] External Monocyte % 10.2 0.0 - 11.0 % [facility] External Eosinophil% 0.9 0.0 - 7.0 % [facility] External Basophil % 0.9 0.0 - 3.0 % [facility] External Nucleated RBC%-Auto 0.1 0.0 - 0.9 % [facility] External Nucleated RBC Absolute 0.01 Not Estab. K/uL [facility] 12/02/2020 12:5 6 PM EDT 12/02/2020 1:27 PM EDT us Sima Trejo MD LAB BLOOD ORDERABLES Final Re sult [facility] [address] [place] [address], documented in this encounter Visit Diagnoses Not on filedocumented in this encounter Care Teams Infection Control Practitioner Relationship Specialty Start Date End Date Pcp, No [address] [place] [address] PCP - General 12/02/20 02/08/23 Oren Pressley MD [address] [place] [address] PCP - General Internal Medicine 02/09/23 Sima Trejo MD [address] [phone] Medical Oncologist Hematology and Oncology 08/02/23 documented as of this encounter
--- OUTSIDE RECORDS SUMMARY | 2025-01-19 14:25 | XMS_ITS | Encounter Summary ---
Author Organization Healthcare Address [address] 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); History of non-Hodgkin's lymphoma; Weakness; Atrial fibrillation, chronic (CMS/HCC) Social History Tobacco Use Types Packs/Day Years [...] 02/06/2025 10:30 AM EDT Office Visit [facility] [address] [place] [phone] 02/06/2025 11:30 AM EDT Office Visit [facility] [address] [place] [phone] Sima Trejo MD [address] [address] 02/06/2025 12:00 PM EDT Infusion [facility] [address] [place] [phone] documented as of this encounter Procedures Procedure Name Priority Date/Time Associated Diagnosis Comments ACUTE HEPATITIS PANEL STAT 01/09/2025 10:50 AM EDT 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) History of non-Hodgkin's lymphoma Weakness PROTHROMBIN TIME(PT) / INR STAT 01/09/2025 10:50 AM EDT 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) Atrial fibrillation, chronic (CMS/HCC) CBC WITH AUTO DIFFERENTIAL STAT 01/09/2025 10:50 AM EDT 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) LACTATE DEHYDROGENASE, PLASMA STAT 01/09/2025 10:50 AM EDT 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) History of non-Hodgkin's lymphoma COMPREHENSIVE METABOLIC PANEL, PLASMA STAT 01/09/2025 10:50 AM EDT 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) documented in this encounter Results * (ABNORMAL) Prothrombin Time/INR (01/09/2025 10:50 AM EDT) External Prothrombin Time (PT) 18.2(H) 9.0 - 11.0 SECONDS 01/09/2025 11:44 AM EDT [facility] External INR - Internormal Ratio 1.9(L) 2.0 - 3.0 01/09/2025 11:44 AM EDT [facility] Comment: INR OF 2.0 TO [...] MD LAB BLOOD ORDERABLES Final Re sult [facility] [address] [place] [address], * Acute Hepatitis Panel (01/09/2025 10:50 AM EDT) External Hepatitis A IgM Ab (HAM) NONREACTIVE NONREACTIVE 01/09/2025 1:19 PM EDT [facility] External Hepatitis B Surface Antigen (HBSAg) NONREACTIVE NONREACTIVE 01/09/2025 1:19 PM EDT [facility] External Hepatitis B Core IgM (HBCM) NONREACTIVE NONREACTIVE 01/09/2025 1:19 PM EDT [facility] External Hepatitis C Antibody (HCV Ab) NONREACTIVE NONREACTIVE 01/09/2025 1:19 PM EDT [facility] Comment: Antibodies to HCV were not detected; does not exclude the possibility of exposure to HCV. Blood Venous blood specimen / Unknown 01/09/2025 10:50 AM EDT 01/09/2025 11:30 AM EDT us Sima Trejo MD LAB BLOOD ORDERABLES Final Re sult Performing Organization Address [facility]/ZIP Co de Phone Number [facility] [address] [place] [address], * Lactate Dehydrogenase, Plasma (01/09/2025 10:50 AM EDT) External LDH Lactate Dehydrogenase 157 135 - 233 U/L 01/09/2025 12:04 PM EDT [facility] Blood Venous blood specimen / Unknown 01/09/2025 10:50 AM EDT 01/09/2025 11:30 AM EDT Sima Trjeo MD LAB BLOOD ORDERABLES Final Re sult Performing Organization Address [facility] Co de Phone Number [facility] [address] [place] [address], * (ABNORMAL) Comprehensive metabolic panel (01/09/2025 10:50 AM EDT) External Glucose 128(H) 74 - 100 mg/dL 01/09/2025 11:44 AM EDT [facility] External BUN 14 6 - 20 mg/dL 01/09/2025 11:44 AM EDT [facility] External Creatinine Blood 1.41(H) 0.50 - 0.95 mg/dL 01/09/2025 11:44 AM EDT [facility] External BUN/Creat Ratio 10 10 - 20 (calc) 01/09/2025 11:44 AM EDT [facility] External Sodium 135(L) 136 - 145 mmol/L 01/09/2025 11:44 AM EDT [facility] External Potassium 4.1 3.4 - 5.0 mmol/L 01/09/2025 11:44 AM EDT [facility] External Chloride 101 98 - 107 mmol/L 01/09/2025 11:44 AM EDT [facility] External Carbon Dioxide (CO2) 22 22 - 31 mmol/L 01/09/2025 11:44 AM EDT [facility] External Anion Gap (AG) 12 7 - 25 (calc) 01/09/2025 11:44 AM EDT [facility] External Calcium 9.0 8.6 - 10.2 mg/dL 01/09/2025 11:44 AM EDT [facility] External Total Protein 6.1(L) 6.4 - 8.3 g/dL 01/09/2025 11:44 AM EDT [facility] External Albumin 4.0 3.5 - 5.2 g/dL 01/09/2025 11:44 AM EDT [facility] External Globulin 2.1 1.5 - 4.5 025 11:44 AM [facility] External Albumin/Globulin Ratio 1.9 1.1 - 2.5 (calc) 01/09/2025 11:44 AM EDT [facility] External Bilirubin Total 0.6 0.1 - 1.0 mg/dL 01/09/2025 11:44 AM T [facility] Comment:NOTE: New reference range. External Alkaline Phosphatase 78 30 - 121 U/L 01/09/2025 11:44 AM T [facility] External AST (SGOT) 19 0 - 32 U/L 01/09/2025 11:44 AM EDT [facility] External ALT (SGPT) 13 0 - 33 U/L 01/09/2025 11:44 AM EDT [facility] External Estimated GFR 37(A) >=60 01/09/2025 11:44 AM T [facility] Comment: NOTE New calculation for GFR (CKD-EPI 2020) is formulated without race adjustment factors at the recommendation of the National Kidney Foundation and [place] Society [employer] Neph[employer]. This calculation has not been validated in women. For pediatric patients refer to https://www.kidney.org/professionals/KDOQI/gfr_calculatorPed Blood Venous blood specimen / Unknown 01/09/2025 10:50 AM EDT 01/09/2025 11:16 AM EDT us Sima Trejo MD LAB BLOOD ORDERABLES Final Re sult [facility] [address] [place] [address], * (ABNORMAL) CBC and differential (01/09/2025 10:50 AM EDT) External WBC 6.8 3.8 - 10.8 10*3/uL 01/09/2025 11:55 AM EDT [facility] External Red Blood Cell (RBC) 3.61(L) 3.80 - 5.20 10*6/uL 01/09/2025 11:55 AM EDT [facility] External Hemoglobin 11.0(L) 12.0 - 16.0 g/dL 01/09/2025 11:55 AM EDT [facility] External Hematocrit 33.1(L) 35.0 - 47.0 % 01/09/2025 11:55 AM EDT [facility] External MCV 92 80 - 100 fL 01/09/2025 11:55 AM EDT [facility] External MCH 31 26 - 35 pg 01/09/2025 11:55 AM EDT [facility] External MCHC 33 32 - 36 g/dL 01/09/2025 11:55 AM EDT [facility] External RDW 17.4(H) 11.0 - 15.0 % 01/09/2025 11:55 AM EDT [facility] External Mean Platelet Volume 7.3 6.2 - 10.5 fL 01/09/2025 11:55 AM EDT [facility] External Platelet Count (Plt) 123(L) 150 - 400 10*3/uL 01/09/2025 11:55 AM EDT [facility] External Neutrophil# 2.7 1.6 - 8.4 10*3/uL 01/09/2025 11:55 AM EDT [facility] External Lymphocyte# 3.5 0.4 - 5.1 10*3/uL 01/09/2025 11:55 AM EDT [facility] External Absolute Monocyte (Abs Nye) 0.3 0.0 - 1.2 10*3/uL 01/09/2025 11:55 AM EDT [facility] External Eosinophils# 0.2 0.0 - 0.8 10*3/uL 01/09/2025 11:55 AM EDT [facility] External Baso# 0.0 0.0 - 0.3 10*3/uL 01/09/2025 11:55 AM EDT [facility] External Neutrophils % 39.0(L) 42.0 - 78.0 % 01/09/2025 11:55 AM EDT [facility] External Lymphocyte % 52.0(H) 11.0 - 47.0 % 01/09/2025 11:55 AM EDT [facility] External Monocyte % 5.0 0.0 - 11.0 % 01/09/2025 11:55 AM EDT [facility] External Eosinophil% 3.0 0.0 - 7.0 % 01/09/2025 11:55 AM EDT [facility] External Basophil % 0.0 0.0 - 3.0 % 01/09/2025 11:55 AM EDT [facility] External Nucleated RBC%-Auto 0.2 0.0 - 0.9 % 01/09/2025 11:55 AM EDT [facility] External Nucleated RBC Absolute 0.01 Not Estab. 10*3/uL 01/09/2025 11:55 AM EDT [facility] Blood Venous blood specimen / Unknown 01/09/2025 10:50 AM EDT 01/09/2025 11:16 AM EDT Sima Trejo MD LAB BLOOD ORDERABLES Final Re sult [facility] [address] [place] [address], documented in this encounter Visit Diagnoses Diagnosis 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) Chronic lymphoid leukemia, in relapse History of non-Hodgkin's lymphoma Personal history of other lymphatic and hematopoietic neoplasm Weakness Other malaise and fatigue Atrial fibrillation, chronic (CMS/HCC) documented in this encounter Additional Health Concerns Assessment Noted Time PHQ-9 Depression Total Score: 5 11/15/19 25 9:00 AM EDT A fall risk assessment has been complete d for the patient 08/08/2024 2:12 PM EDT documented as of this encounter Care Teams Visitor Services Associate Relationship Specialty Start Date End Date Oren Pressley MD [address] [place] [address] PCP - General Internal Medicine 02/09/23 Sima Trejo MD [address] [phone] Medical Oncologist Hematology and Oncology 08/02/23 documented as of this encounter
--- OUTSIDE RECORDS SUMMARY | 2025-01-19 14:25 | XMS_ITS | Encounter Summary ---
Author Organization Healthcare Address [address] [place] [address] Care Team Providers Care Linen Worker Name Role Phone Oren Pressley MD Primary Care Provider [phone] Sima Trejo MD Unavailable [phone] Reason for Visit * Reason Comments Med Refill Encounter Details Date Type Department Care Team (Late st Contact Info) Description 12/21/2024 Refill [facility] [address] [place] [phone] Sima Trejo MD [address] [address] Social History Tobacco Use Types [...] Visit [facility] [address] [place] [phone] 02/06/2025 11:30 AM EDT Office Visit [facility] [address] [place] [address] Sima Trejo MD [address] [address] 02/06/2025 12:00 PM EDT Infusion [facility] [address] [place] [address] documented as of this encounter Visit Diagnoses Not on filedocumented in this encounter Additional Health Concerns Assessment Noted Time PHQ-9 Depression Total Score: 5 11/15/19 25 9:00 AM EDT A fall risk assessment has been complete d for the patient 08/08/2024 2:12 PM EDT documented as of this encounter Care Teams Linen Worker Relationship Specialty Start Date End Date Oren Pressley MD [address] [place] [address] PCP - General Internal Medicine 02/09/23 Sima Trejo MD [address] [address] Medical Oncologist Hematology and Oncology 08/02/23 documented as of this encounter
--- OUTSIDE RECORDS SUMMARY | 2025-01-19 14:25 | XMS_ITS | Encounter Summary ---
Author Organization [employer] ([place], [place], [place], [place]) Address [address] [place] [address] Care Team Providers Care Field Artillery Radar Operator Name Role Phone Oren Pressley MD Primary Care Provider [phone] Encounter Details Date Type Department Care Team (Late st Contact Info) Description 06/22/2019 Transcribed Document [facility] [place] [address] ProviderLaurel MD [address] [place] [phone] Social History Tobacco Use Types Packs/Day Years Used Date Smoking Tobacco: Never Assessed Comments Unknown Sex and Gender Information Value Date Recorded Sex Assigned at Not on file Legal Sex Female 4:44 PM CDT Gender Identity Not on file Sexual Orientation Not on file documented as of this encounter Miscellaneous Notes * Cerner Conversion Note - Historical ProviderMD - 06/22/2019 9:38 AM POLE SANDER OPERATOR Pre Procedure Adult Entered On: 06/22/2019 9:45 EST Performed On: 06/22/2019 9:38 EST by EDWINA VALIENTE RN Height and Weight, Clinical Dosing Height Source : Measured Height Entry Format : [place] Height, Feet : 5 ft(Converted to: 152 cm, 60 Inch) Height, Inches : 5 Inch(Converted to: 0 ft 5 Inch, 12.70 cm) Clinical Height : 165.1 cm Weight Source : Standing scale Weight Entry Format : [place] Clinical Dosing Weight : 109.09 kg Weight, Pounds : 240 lb Body Surface Area (BSA) : 2.14 m2 Body Mass Index : 40 kg/m2 (HI) [place] Body Weight : 57 kg EDWINA VALIENTE [...] EDWINA VALIENTE RN - 06/22/2019 9:38 EST [place] Suicide Severity Rating Scale (C-SSRS) CSSRS Past [...] Info Legal Guardian : No Support Person/Patient Rocket Assembly Operator : Yes Want Family/Rep/Phys Notified of Admit : No Emergency Contact #1 : [place] Emergency Contact #1 Emergency Contact #1 Relationship : son Emergency Contact #2 : none Emergency Contact #2 Phone Number : none Emergency Contact #2 Relationship : none Primary Language : Yi Preferred Communication Mode : Verbal Communication Barrier [...] Scale Risk Level : 25-45 Medium Risk [place] Fall Interventions : Adequate lighting, Assistive devices [...] EDWINA VALIENTE RN - 06/22/2019 9:38 EST documented in this encounter Plan of Treatment Not on file documented as of this encounter Visit Diagnoses Not on filedocumented in this encounter Care Teams Field Artillery Radar Operator Relationship Specialty Start Date End Date Oren Pressley MD [address] [place] [address] [place] [address] PCP - General Adolescent Medicine 05/17/23 documented as of this encounter
--- OUTSIDE RECORDS SUMMARY | 2025-01-19 14:25 | XMS_ITS | Encounter Summary ---
Author Organization [employer] ([place], [place], [place], [place]) Address [address] [place] [address] Care Team Providers Care Talcer Name Role Phone Oren Pressley MD Primary Care Provider [phone] Encounter Details Date Type Department Care Team (Late st Contact Info) Description 05/16/2018 Transcribed Document [facility] Family [place] [address] ProviderLaurel MD [address] [place] [phone] Social History Tobacco Use Types Packs/Day Years Used Date Smoking Tobacco: Never Assessed Comments Unknown Sex and Gender Information Value Date Recorded Sex Assigned at Not on file Legal Sex Female 4:44 PM CDT Gender Identity Not on file Sexual Orientation Not on file documented as of this encounter Miscellaneous Notes * Cerner Conversion Note - Historical ProviderMD - 05/16/2018 8:38 AM HYPERBARIC TECHNICIAN Pre Procedure Adult Entered On: 05/16/2018 8:45 EST Performed On: 05/16/2018 8:38 EST by KASSIDY SAWYER RN Height and Weight, Clinical Dosing Height Source : Stated Height Entry Format : [place] Height, Feet : 5 ft(Converted to: 152 cm, 60 Inch) Height, Inches : 5.5 Inch(Converted to: 0 ft 6 Inch, 13.97 cm) Clinical Height : 166.37 cm Weight Source : Standing scale Weight Entry Format : [place] Clinical Dosing Weight : 104.55 kg Weight, Pounds : 230 lb Body Surface Area (BSA) : 2.11 m2 Body Mass Index : 37.8 kg/m2 (HI) [place] Body Weight : 58 kg KSASIDY SAWYER RN - 05/16/2018 8:38 EST Health [...] Son Legal Guardian : No Support Person/Patient Counselor Aide : Yes Want Family/Rep/Phys Notified of Admit : No Emergency Contact #1 : [place] Emergency Contact #1 Emergency Contact #1 Relationship : son Emergency Contact #2 : n/a Emergency Contact #2 Phone Number : n/a Emergency Contact #2 Relationship : n/a Chief Complaint : CV Information Obtained From : Patient Primary Language : Macedonian Preferred Communication Mode : Verbal Communication Barrier [...] Scale Risk Level : 0-24 Low Risk [place] Fall Interventions : Adequate lighting, Assistive devices [...] on filedocumented in this encounter Care Teams Talcer Relationship Specialty Start Date End Date Oren Pressley MD [address] [place] [address] [place] [address] PCP - General Adolescent Medicine 05/17/23 documented as of this encounter
--- OUTSIDE RECORDS SUMMARY | 2025-01-19 14:25 | XMS_ITS | Encounter Summary ---
Author Organization [employer] ([place], [place], [place], [place]) Address [address] [place] [address] Care Team Providers Care Refrigeration Engine Operator Name Role Phone Oren Pressley MD Primary Care Provider [phone] Encounter Details Date Type Department Care Team (Late st Contact Info) Description 05/16/2018 Transcribed Document [facility] [place] [facility] [address] ProviderLaurel MD [address] [place] [address] [phone] Social History Tobacco Use Types Packs/Day Years Used Date Smoking Tobacco: Never Assessed Comments Unknown Sex and Gender Information Value Date Recorded Sex Assigned at Not on file Legal Sex Female 4:44 PM CDT Gender Identity Not on file Sexual Orientation Not on file documented as of this encounter Miscellaneous Notes * Cerner Conversion Note - Laurel Mayer MD - 05/16/2018 12:04 PM CUSTOMER ADVISOR SPECIALIST Patient Education Materials Follows:Medicine Electrical Cardioversion, Care [...] to help you relax (sedative). ??? Take oiwn-cvm-dibavnv and prescription medicines only as told by [...] 01/24/2014 Document Revised: 11/06/2016 Document Reviewed: 10/09/2016 [employer] Interactive Patient Education ? 2017 [employer]. Pharmacology Moderate Conscious Sedation, Adult, Care After [...] you are awake and alert. ??? Take ubxg-sot-brtpyub and prescription medicines only as told by [...] 01/24/2014 Document Revised: 09/07/2016 Document Reviewed: 07/25/2016 [employer] Interactive Patient Education ? 2017 [employer] documented in this encounter Plan of Treatment Not on file documented as of this encounter Visit Diagnoses Not on filedocumented in this encounter Care Teams Refrigeration Engine Operator Relationship Specialty Start Date End Date Oren Pressley MD [address] [place] [address] [place] [address] PCP - General Adolescent Medicine 05/17/23 documented as of this encounter
--- OUTSIDE RECORDS SUMMARY | 2025-01-19 14:25 | XMS_ITS | Encounter Summary ---
Author Organization Healthcare Address [address] [place] [address] Care Team Providers Care Fur Joiner Name Role Phone Oren Pressley MD Primary Care Provider [phone] Sima Trejo MD Unavailable Encounter Details Date Type Department Care Team (Latest Contact Info) Description 01/09/2025 Travel Social History Tobacco Use Types Packs/Day Years [...] Description 02/06/2025 10:30 AM EDT Office Visit [facility] [address] [place] [address] 02/06/2025 11:30 AM EDT Office Visit [facility] at [address] [phone] Sima Trejo MD [address] [place] [phone] 02/06/2025 12:00 PM EDT Infusion [facility] [address] [place] [address] documented as of this encounter Visit Diagnoses Not on filedocumented in this encounter Additional Health Concerns Assessment Noted Time PHQ-9 Depression Total Score: 5 11/15/19 25 9:00 AM EDT A fall risk assessment has been complete d for the patient 08/08/2024 2:12 PM EDT documented as of this encounter Care Teams Fur Joiner Relationship Specialty Start Date End Date Oren Pressley MD [address] [place] [address] PCP - General Internal Medicine 02/09/23 Sima Trejo MD [address] [place], [place] [address] [address] Medical Oncologist Hematology and Oncology 08/02/23 documented as of this encounter
--- OUTSIDE RECORDS SUMMARY | 2025-01-19 14:25 | XMS_ITS | Encounter Summary ---
Author Organization Healthcare Address [address] [place] [address] Care Team Providers Care Hand Wood Sander Name Role Phone Oren Pressley MD Primary Care Provider [phone] Sima Trejo MD Unavailable [phone] Encounter Details Date Type Department Care Team (Late st Contact Info) Description 11/22/2024 Orders Only [facility] [address] [place] [address] Sima Trejo MD [address] [address] Social History Tobacco Use Types [...] 02/06/2025 10:30 AM EDT Office Visit [facility] [address] [place] [address] 02/06/2025 11:30 AM EDT Office Visit [facility] [address] [place] [address] Sima Trejo MD [address] [phone] 02/06/2025 12:00 PM EDT Infusion [facility] [address] [place] [phone] documented as of this encounter Visit Diagnoses Not on filedocumented in this encounter Additional Health Concerns Assessment Noted Time PHQ-9 Depression Total Score: 5 11/15/19 25 9:00 AM EDT A fall risk assessment has been complete d for the patient 08/08/2024 2:12 PM EDT documented as of this encounter Care Teams Hand Wood Sander Relationship Specialty Start Date End Date Oren Pressley MD [address] [place] [address] PCP - General Internal Medicine 02/09/23 Sima Trejo MD [address] [place] [phone] Medical Oncologist Hematology and Oncology 08/02/23 documented as of this encounter
--- OUTSIDE RECORDS SUMMARY | 2025-01-19 14:25 | XMS_ITS | Encounter Summary ---
Author Organization Healthcare Address [address] [place] [address] Care Team Providers Care Marble Mason Name Role Phone Pcp, No Primary Care Provider Oren Hull MD Primary Care Provider [phone] Sima Trejo MD Unavailable [phone] Encounter Details Date Type Department Care Team (Late st Contact Info) Description 08/04/2021 Orders Only [facility] at [address] [place] [address] Sima Trejo MD [address] [place] [address] [address] Social History Tobacco Use [...] EDT Office Visit [facility] at [address] [place] [address] 02/06/2025 11:30 AM EDT Office Visit [facility] at [address] [place] [address] Sima Trejo MD [address] [place] [address] [address] 02/06/2025 12:00 PM EDT Infusion [facility] at [facility] [place] [address] documented as of this encounter Procedures Procedure Name Priority Date/Time Associated Diagnosis Comments COMPREHENSIVE METABOLIC PANEL, PLASMA Routine 08/04/2021 12:43 PM EDT documented in this encounter Results * (ABNORMAL) Comprehensive Metabolic Panel, Plasma (08/04/2021 12:43 PM EDT) External Glucose 99 74 - 100 mg/dL [facility] External BUN 23(H) 6 - 20 mg/dL [facility] External Creatinine Blood 1.69(H) 0.50 - 0.95 mg/dL [facility] External BUN/Creat Ratio 14 10 - 20 (calc) [facility] External Sodium 139 136 - 145 mmol/L [facility] External Potassium 4.1 3.4 - 5.0 mmol/L [facility] External Chloride 105 98 - 107 mmol/L [facility] External Carbon Dioxide 20(L) 22 - 31 mmol/L [facility] External Anion Gap (AG) 14 7 - 25 (calc) [facility] External Calcium 9.0 8.6 - 10.2 mg/dL [facility] External Total Protein 6.4 6.4 - 8.3 g/dL [facility] External Albumin 3.9 3.5 - 5.2 g/dL [facility] External Globulin 2.5 1.5 - 4.5 g/dL (calc) [facility] External Albumin/Globulin Ratio 1.6 1.1 - 2.5 (calc) [facility] External Bilirubin Total 0.3 0.1 - 1.2 mg/dL [facility] External Alkaline Phosphatase 69 30 - 121 U/L [facility] External AST (SGOT) 11 0 - 32 U/L [facility] External ALT (SGPT) 13 0 - 33 U/L [facility] External EGFR (If AFR/AM) 33(A) >=60 [facility] External Estimated GFR 29(A) >=60 [facility] Comment: NOTE Chronic kidney [...] MD LAB BLOOD ORDERABLES Final Re sult [facility] [address] [place] [address], documented in this encounter Visit Diagnoses Not on filedocumented in this encounter Care Teams Marble Mason Relationship Specialty Start Date End Date Pcp, No [address] [place] [address] PCP - General 12/02/20 02/08/23 Oren Pressley MD 1210 [facility] [address] [place] [address] PCP - General Internal Medicine 02/09/23 Sima Trejo MD [address] [address] Medical Oncologist Hematology and Oncology 08/02/23 documented as of this encounter
--- OUTSIDE RECORDS SUMMARY | 2025-01-19 14:25 | XMS_ITS | Encounter Summary ---
Author Organization Healthcare Address [address] [place] [address] Care Team Providers Care Acid Supervisor Name Role Phone Pcp, No Primary Care Provider Oren Hull MD Primary Care Provider Sima Trejo MD Unavailable [phone] Encounter Details Date Type Department Care Team (Late st Contact Info) Description 12/02/2020 Orders Only [facility] at [address] [place] [place] [address] Sima Trejo MD [address] [place] [address] [address] Social History Tobacco Use Types [...] Office Visit [facility] at [address] [place] [place] [address] 02/06/2025 11:30 AM EDT Office Visit [facility] at [address] [place] [place] [address] Sima Trejo MD [address] [place] [address] [address] 02/06/2025 12:00 PM EDT Infusion [facility] [place] at [facility] [place] [address] documented as of this encounter Procedures Procedure Name Priority Date/Time Associated Diagnosis Comments COMPREHENSIVE METABOLIC PANEL, PLASMA Routine 12/02/2020 12:56 PM EDT documented in this encounter Results * (ABNORMAL) Comprehensive Metabolic Panel, Plasma (12/02/2020 12:56 PM EDT) External Glucose 101(H) 74 - 100 mg/dL [facility] External BUN 15 6 - 20 mg/dL [facility] External Creatinine Blood 1.37(H) 0.50 - 0.95 mg/dL [facility] External BUN/Creat Ratio 11 10 - 20 (calc) [facility] External Sodium 133(L) 136 - 145 mmol/L [facility] External Potassium 4.4 3.4 - 5.0 mmol/L [facility] External Chloride 96(L) 98 - 107 mmol/L [facility] External Carbon Dioxide 22 22 - 31 mmol/L [facility] External Anion Gap (AG) 15 7 - 25 (calc) [facility] External Calcium 9.2 8.6 - 10.2 mg/dL [facility] External Total Protein 7.0 6.4 - 8.3 g/dL [facility] External Albumin 4.2 3.5 - 5.2 g/dL [facility] External Globulin 2.8 1.5 - 4.5 g/dL (calc) [facility] External Albumin/Globulin Ratio 1.5 1.1 - 2.5 (calc) [facility] External Bilirubin Total 0.6 0.1 - 1.2 mg/dL [facility] External Alkaline Phosphatase 59 35 - 106 U/L [facility] External AST (SGOT) 20 0 - 32 U/L [facility] External ALT (SGPT) 13 0 - 33 U/L [facility] External EGFR (If AFR/AM) 43(A) >=60 [facility] External Estimated GFR 37(A) >=60 [facility] Comment: NOTE Chronic kidney disease is [...] Re sult [facility] [address] [place] [address], documented in this encounter Visit Diagnoses Not on filedocumented in this encounter Care Teams Acid Supervisor Relationship Specialty Start Date End Date Pcp, No [address] [place] [address] PCP - General 12/02/20 02/08/23 Oren Pressley MD [address] [place] [address] [address] [place] [address] PCP - General Internal Medicine 02/09/23 Sima Trejo MD [address] [address] Medical Oncologist Hematology and Oncology 08/02/23 documented as of this encounter
--- OUTSIDE RECORDS SUMMARY | 2025-01-19 14:25 | XMS_ITS | Encounter Summary ---
Author Organization Healthcare Address [address] [place] [address] Care Team Providers Care Desk Officer Name Role Phone Oren Pressley MD Primary Care Provider [phone] Sima Trejo MD Unavailable [phone] Reason for Visit * Reason Onset Date Comments Insomnia 11/22/2024 Encounter Details Date Type Department Care Team ([facility] Contact Info) Description 11/22/2024 Telephone [facility] at [facility] [address] [place] [address] Sima Trejo MD [address] [address] Insomnia Social History Tobacco Use Types Packs/Day Years [...] Description 02/06/2025 10:30 AM EDT Office Visit [facility] at [facility] [address] [place] [address] 02/06/2025 11:30 AM EDT Office Visit [facility] at [facility] [address] [place] [address] Sima Trejo MD [address] [phone] 02/06/2025 12:00 PM EDT Infusion [facility] at [facility] [address] [place] [address] documented as of this encounter Visit Diagnoses Not on filedocumented in this encounter Additional Health Concerns Assessment Noted Time PHQ-9 Depression Total Score: 5 11/15/19 25 9:00 AM EDT A fall risk assessment has been complete d for the patient 08/08/2024 2:12 PM EDT documented as of this encounter Care Teams Desk Officer Relationship Specialty Start Date End Date Oren Pressley MD 1210 [facility] [address] [place] [address] PCP - General Internal Medicine 02/09/23 Sima Trejo MD [address] [phone] Medical Oncologist Hematology and Oncology 08/02/23 documented as of this encounter
--- OUTSIDE RECORDS SUMMARY | 2025-01-19 14:25 | XMS_ITS | Encounter Summary ---
Author Organization [employer] ([place], [place], [place], [place]) Address [address] [place] [address] Care Team Providers Care Supervisor Assembly Stock Name Role Phone Oren Pressley MD Primary Care Provider [phone] Encounter Details Date Type Department Care Team (Late st Contact Info) Description 06/22/2019 Transcribed Document [facility] [place] [facility] [place] [address] ProviderLaurel MD [address] [place] [id number] Social History Tobacco Use Types Packs/Day Years Used Date Smoking Tobacco: Never Assessed Comments Unknown Sex and Gender Information Value Date Recorded Sex Assigned at Not on file Legal Sex Female 4:44 PM CDT Gender Identity Not on file Sexual Orientation Not on file documented as of this encounter Miscellaneous Notes * [employer]ner Conversion Note - Laurel Mayer MD - 06/22/2019 11:50 AM EXAMINER RATING CLERK DATE OF PROCEDURE: 06/22/2019 DC CARDIOVERSION SURGEON: [...] Successful DC cardioversion achieving normal sinus rhythm. /[id number] Yasmany Vazquez MD SR/AQ / SR / MODL /[id number] Electronically signed by Robb, [facility] Conversion Window Maker Cerner at 08/07/2022 2:12 PM CDT documented in this encounter Plan of Treatment Not on file documented as of this encounter Visit Diagnoses Not on filedocumented in this encounter Care Teams Supervisor Assembly Stock Relationship Specialty Start Date End Date Oren Pressley MD [address] [place] [address] PCP - General Adolescent Medicine 05/17/23 documented as of this encounter
--- OUTSIDE RECORDS SUMMARY | 2025-01-19 14:25 | XMS_ITS | Encounter Summary ---
Author Organization [employer] ([place], [place], [place], [place]) Address [address] [place] [address] Care Team Providers Care Locomotive Engineer Diesel Name Role Phone Oren Pressley MD Primary Care Provider [phone] Encounter Details Date Type Department Care Team (Late st Contact Info) Description 05/16/2018 Transcribed Document [facility] Family Medicine [facility] [place] [address] ProviderLaurel MD [address] [place] [id number] Social History Tobacco Use Types Packs/Day Years Used Date Smoking Tobacco: Never Assessed Comments Unknown Sex and Gender Information Value Date Recorded Sex Assigned at Not on file Legal Sex Female 4:44 PM CDT Gender Identity Not on file Sexual Orientation Not on file documented as of this encounter Miscellaneous Notes * Cerner Conversion Note - Historical ProviderMD - 05/16/2018 10:15 AM FINAL RAIL CUTTER Event Note Entered On: 05/16/2018 10:25 EST Performed On: 05/16/2018 10:15 EST by KASSIDY SAWYER RN Event Note Event Date/Time : 05/16/2018 10:15 EST Description of Event : Return from procedure lab per stretcher awake and alert, skin w/d, no c/o, family here at bedside. Food and drink ordered. KASSIDY SAWYER RN - 05/16/2018 10:25 EST Electronically signed by Robb [facility] Conversion Senior Technical Specialist Cerner at 08/07/2022 2:29 PM CDT documented in this encounter Plan of Treatment Not on file documented as of this encounter Visit Diagnoses Not on filedocumented in this encounter Care Teams Locomotive Engineer Diesel Relationship Specialty Start Date End Date Oren Pressley MD [address] [place] [address] PCP - General Adolescent Medicine 05/17/23 documented as of this encounter
--- OUTSIDE RECORDS SUMMARY | 2025-01-19 14:25 | XMS_ITS | Encounter Summary ---
Author Organization Healthcare Address [address] [place] [address] Care Team Providers Care Conditioning Coach Name Role Phone Pcp, No Primary Care Provider Oren Hull MD Primary Care Provider [phone] Sima Trejo MD Unavailable [phone] Encounter Details Date Type Department Care Team (Late st Contact Info) Description 06/02/2021 Orders Only [facility] at [address] [place] [address] Sima Trejo MD [address] [place] [address] [address] Social History Tobacco Use Types [...] EDT Office Visit [facility] at [address] [place] [address] 02/06/2025 11:30 AM EDT Office Visit [facility] at [address] [place] [address] Sima Trejo MD [address] [place] [address] [address] 02/06/2025 12:00 PM EDT Infusion [facility] at [address] [address] documented as of this encounter Procedures Procedure Name Priority Date/Time Associated Diagnosis Comments CBC WITH AUTO DIFFERENTIAL Routine 06/02/2021 12:06 PM EST documented in this encounter Results * CBC and Differential (06/02/2021 12:06 PM EST) External WBC 7.1 3.8 - 10.8 K/uL [facility] External Red Blood Cell (RBC) 4.41 3.80 - 5.20 M/uL [facility] External Hemoglobin 13.6 12.0 - 16.0 G/DL [facility] External Hematocrit 40.9 35.0 - 47.0 % [facility] External MCV 93 80 - 100 fL [facility] External MCH 31 26 - 35 PG [facility] External MCHC 33 32 - 36 G/DL [facility] External RDW 14.6 11.0 - 15.0 % [facility] External Mean Platelet Volume 7.3 6.2 - 10.5 fL [facility] External Platelets 198 130 - 400 K/uL [facility] External Neutrophil# 4.1 1.6 - 8.4 K/uL [facility] External Lymphocyte# 2.1 0.4 - 5.1 K/uL [facility] External Absolute Monocyte (Abs Steele) 0.7 0.0 - 1.2 K/uL [facility] External Eosinophils# 0.1 0.0 - 0.8 K/uL [facility] External Baso# 0.1 0.0 - 0.3 K/uL [facility] External Neutrophils % 58.0 42.0 - 78.0 % [facility] External Lymphocyte % 30.1 11.0 - 47.0 % [facility] External Monocyte % 9.4 0.0 - 11.0 % [facility] External Eosinophil% 1.5 0.0 - 7.0 % [facility] External Basophil % 1.0 0.0 - 3.0 % [facility] External Nucleated RBC%-Auto 0.1 0.0 - 0.9 % [facility] External Nucleated RBC Absolute 0.01 Not Estab. K/uL [facility] 06/02/2021 12:0 6 PM EST 06/02/2021 12:41 PM EST Sima Trejo MD LAB BLOOD ORDERABLES Final Re sult Performing Organization Address City/State/[facility] Co de Phone Number [facility] [address] [place] [address], documented in this encounter Visit Diagnoses Not on filedocumented in this encounter Care Teams Conditioning Coach Relationship Specialty Start Date End Date Pcp, No [address] [place] [address] PCP - General 12/02/20 02/08/23 Oren Pressley MD [address] [place] [address] PCP - General Internal Medicine 02/09/23 Sima Trejo MD [address] [address] Medical Oncologist Hematology and Oncology 08/02/23 documented as of this encounter
--- OUTSIDE RECORDS SUMMARY | 2025-01-19 14:25 | XMS_ITS | Encounter Summary ---
Author Organization Healthcare Address [address] [place] [address] Care Team Providers Care Optomechanical Technician Name Role Phone Oren Pressley MD Primary Care Provider Sima Trejo MD Unavailable [phone] Encounter Details Date Type Department Care Team (Late st Contact Info) Description 01/09/2025 Orders Only [facility] at [facility] [address] [place] [address] Sima Trejo MD [address] [address] Social History Tobacco Use [...] Description 02/06/2025 10:30 AM EDT Office Visit [facility] at [address] [address] 02/06/2025 11:30 AM EDT Office Visit [facility] at [address] [address] [place] [address] [place] [phone] 02/06/2025 12:00 PM EDT Infusion [facility] at [address] [phone] documented as of this encounter Procedures Procedure Name Priority Date/Time Associated Diagnosis Comments MANUAL DIFFERENTIAL Routine 01/09/2025 1 0:50 AM EDT documented in this encounter Results * (ABNORMAL) Manual Differential (01/09/2025 10:50 AM EDT) External Band Neutrophil% 1.0 0.0 - 7.0 % 01/09/2025 11:55 AM EDT [facility] External Atypical Lymph% 0 0 - 1 % 01/09/2025 11:55 AM EDT [facility] External Metamyelocyte % 0 0 - 1 % 01/09/2025 11:55 AM EDT [facility] External Myelocyte % 0 0 - 1 % 01/09/2025 11:55 AM EDT [facility] External Promyelocyte% 0 0 % 01/09/2025 11:55 AM EDT [facility] External Blast% 0 0 % 11:55 AM EDT [facility] External Nucleated RBC%-Manual 0 0 - 1 /100{WBC} 01/09/2025 11:55 AM EDT [facility] External Smudge Cells 2(A) 0 /100{WBC} 01/09/2025 11:55 AM EDT [facility] External Platelet Morphology NORMAL 01/09/2025 11:55 AM EDT [facility] External Polychromasia SLIGHT(A) 01/09/2025 11:55 AM EDT [facility] External Ovalocytes SLIGHT(A) 01/09/2025 11:55 AM EDT [facility] 01/09/2025 10:5 0 AM EDT 01/09/2025 11:16 AM EDT us Sima Trejo MD LAB BLOOD ORDERABLES Final Re sult Performing Organization Address City/State/[facility] Co de Phone Number [facility] [address] [place] [address], documented in this encounter Visit Diagnoses Not on filedocumented in this encounter Additional Health Concerns Assessment Noted Time PHQ-9 Depression Total Score: 5 11/15/19 25 9:00 AM EDT A fall risk assessment has been complete d for the patient 08/08/2024 2:12 PM EDT documented as of this encounter Care Teams Optomechanical Technician Relationship Specialty Start Date End Date Oren Pressley MD [address] [place] [address] PCP - General Internal Medicine 02/09/23 Sima Trejo MD [address] [address] Medical Oncologist Hematology and Oncology 08/02/23 documented as of this encounter
--- OUTSIDE RECORDS SUMMARY | 2025-01-19 14:25 | XMS_ITS | Encounter Summary ---
Author Organization Healthcare Address [address] [place] [address] Care Team Providers Care Education And Outreach Coordinator Name Role Phone Oren Pressley MD Primary Care Provider [phone] Sima Trejo MD Unavailable [phone] Encounter Details Date Type Department Care Team (Latest Contact Info) Description 12/12/2024 Travel Social History Tobacco Use Types Packs/Day [...] Description 02/06/2025 10:30 AM EDT Office Visit [facility] at [facility] [address] [place] [phone] 02/06/2025 11:30 AM EDT Office Visit [facility] [address] [place] [address] Sima Trejo MD [address] [phone] 02/06/2025 12:00 PM EDT Infusion [facility] at [facility] [address] [place] [phone] documented as of this encounter Visit Diagnoses Not on filedocumented in this encounter Additional Health Concerns Assessment Noted Time PHQ-9 Depression Total Score: 5 11/15/19 25 9:00 AM EDT A fall risk assessment has been complete d for the patient 08/08/2024 2:12 PM EDT documented as of this encounter Care Teams Education And Outreach Coordinator Relationship Specialty Start Date End Date Oren Pressley MD [address] [place] [address] PCP - General Internal Medicine 02/09/23 Sima Trejo MD [address] [place] [phone] Medical Oncologist Hematology and Oncology 08/02/23 documented as of this encounter
--- OUTSIDE RECORDS SUMMARY | 2025-01-19 14:25 | XMS_ITS | Encounter Summary ---
Author Organization Healthcare Address [address] [place] [address] Care Team Providers Care Director Of In Service Education Name Role Phone Pcp, No Primary Care Provider Oren Hull MD Primary Care Provider Sima Trejo MD Unavailable [phone] Encounter Details Date Type Department Care Team (Late st Contact Info) Description 05/26/2022 Orders Only [facility] at [address] [place] [address] Sima Trejo MD [address] [address] Social History Tobacco Use Types [...] Description 02/06/2025 10:30 AM EDT Office Visit [facility] at [address] [place] [address] 02/06/2025 11:30 AM EDT Office Visit [facility] at [address] [place] [address] Sima Trejo MD [address] [address] 02/06/2025 12:00 PM EDT Infusion [facility] at [facility] [address] [place] [address] documented as of this encounter Procedures Procedure Name Priority Date/Time Associated Diagnosis Comments LACTATE DEHYDROGENASE, PLASMA Routine 05/26/2022 1:07 PM EST documented in this encounter Results * Lactate Dehydrogenase, Plasma (05/26/2022 1:07 PM EST) External LDH Lactate Dehydrogenase 155 135 - 233 U/L [facility] 05/26/2022 1:07 PM EST 05/26/2022 1:19 PM EST us Sima Trejo MD LAB BLOOD ORDERABLES Final Re sult [facility] [address] [place] [address], documented in this encounter Visit Diagnoses Not on filedocumented in this encounter Care Teams Director Of In Service Education Relationship Specialty Start Date End Date Pcp, No [address] [place] [address] PCP - General 12/02/20 02/08/23 Oren Pressley MD [address] [place] [address] PCP - General Internal Medicine 02/09/23 Sima Trejo MD [address] [address] Medical Oncologist Hematology and Oncology 08/02/23 documented as of this encounter
--- OUTSIDE RECORDS SUMMARY | 2025-01-19 14:25 | XMS_ITS | Encounter Summary ---
Author Organization Healthcare Address [address] [place] [address] Care Team Providers Care Microarray Specialist Name Role Phone Pcp, No Primary Care Provider Oren Hull MD Primary Care Provider Sima Trejo MD Unavailable [phone] Encounter Details Date Type Department Care Team (Late st Contact Info) Description 05/26/2022 Orders Only [facility] [address] [place] [address] Sima Trejo MD [address] [place] [address] [address] Social History Tobacco Use Types [...] EDT Office Visit [facility] [address] [place] [address] 02/06/2025 11:30 AM EDT Office Visit [facility] [address] [place] [address] Sima Trejo MD [address] [place] [address] [address] 02/06/2025 12:00 PM EDT Infusion [facility] at [address] [address] documented as of this encounter Procedures Procedure Name Priority Date/Time Associated Diagnosis Comments CBC WITH AUTO DIFFERENTIAL Routine 05/26/2022 1:07 PM EST documented in this encounter Results * (ABNORMAL) CBC and Differential (05/26/2022 1:07 PM EST) External WBC 5.6 3.8 - 10.8 K/uL [facility] External Red Blood Cell (RBC) 4.06 3.80 - 5.20 M/uL [facility] External Hemoglobin 12.0 12.0 - 16.0 G/DL [facility] External Hematocrit 36.0 35.0 - 47.0 % [facility] External MCV 89 80 - 100 fL [facility] External MCH 30 26 - 35 PG [facility] External MCHC 33 32 - 36 G/DL [facility] External RDW 15.9(H) 11.0 - 15.0 % [facility] External Mean Platelet Volume 7.5 6.2 - 10.5 fL [facility] External Platelets 176 130 - 400 K/uL [facility] External Neutrophil# 3.3 1.6 - 8.4 K/uL [facility] External Lymphocyte# 1.7 0.4 - 5.1 K/uL [facility] External Absolute Monocyte (Abs Potter) 0.5 0.0 - 1.2 K/uL [facility] External Eosinophils# 0.1 0.0 - 0.8 K/uL [facility] External Baso# 0.0 0.0 - 0.3 K/uL [facility] External Neutrophils % 59.0 42.0 - 78.0 % [facility] External Lymphocyte % 30.6 11.0 - 47.0 % [facility] External Monocyte % 8.1 0.0 - 11.0 % [facility] External Eosinophil% 1.7 0.0 - 7.0 % [facility] External Basophil % 0.6 0.0 - 3.0 % [facility] External Nucleated RBC%-Auto 0.0 0.0 - 0.9 % [facility] External Nucleated RBC Absolute 0.00 Not Estab. K/uL [facility] 05/26/2022 1:07 PM EST 05/26/2022 1:20 PM EST us Sima Trejo MD LAB BLOOD ORDERABLES Final Re sult [facility] [address] [place] [address], documented in this encounter Visit Diagnoses Not on filedocumented in this encounter Care Teams Microarray Specialist Relationship Specialty Start Date End Date Pcp, No [address] [place] [address] PCP - General 12/02/20 02/08/23 Oren Pressley MD [address] [place] [address] PCP - General Internal Medicine 02/09/23 Sima Trejo MD [address] [address] Medical Oncologist Hematology and Oncology 08/02/23 documented as of this encounter
--- OUTSIDE RECORDS SUMMARY | 2025-01-19 14:26 | XMS_ITS | Encounter Summary ---
Author Organization Healthcare Address [address] [place] [address] Care Team Providers Care Strategy Execution Consultant Name Role Phone Pcp, No Primary Care Provider Oren Hull MD Primary Care Provider Sima Trejo MD Unavailable [phone] Encounter Details Date Type Department Care Team (Late st Contact Info) Description 02/17/2022 Orders Only [facility] at [address] [place] [address] Sima Trejo MD [address] [place] [address] [address] Social History Tobacco Use Types [...] Description 02/06/2025 10:30 AM EDT Office Visit [facility] at [address] [place] [address] 02/06/2025 11:30 AM EDT Office Visit [facility] at [address] [place] [address] Sima Trejo MD [address] [place] [address] [address] 02/06/2025 12:00 PM EDT Infusion [facility] at [address] [place] [address] documented as of this encounter Procedures Procedure Name Priority Date/Time Associated Diagnosis Comments CBC WITH AUTO DIFFERENTIAL Routine 02/17/2022 12:42 PM EDT documented in this encounter Results * CBC and Differential (02/17/2022 12:42 PM EDT) External WBC 6.1 3.8 - 10.8 K/uL [facility] External Red Blood Cell (RBC) 4.03 3.80 - 5.20 M/uL [facility] External Hemoglobin 12.1 12.0 - 16.0 G/DL [facility] External Hematocrit 35.9 35.0 - 47.0 % [facility] External MCV 89 80 - 100 fL [facility] External MCH 30 26 - 35 PG [facility] External MCHC 34 32 - 36 G/DL [facility] External RDW 14.6 11.0 - 15.0 % [facility] External Mean Platelet Volume 7.3 6.2 - 10.5 fL [facility] External Platelets 180 130 - 400 K/uL [facility] External Neutrophil# 3.8 1.6 - 8.4 K/uL [facility] External Lymphocyte# 1.6 0.4 - 5.1 K/uL [facility] External Absolute Monocyte (Abs Leake) 0.5 0.0 - 1.2 K/uL [facility] External Eosinophils# 0.1 0.0 - 0.8 K/uL [facility] External Baso# 0.1 0.0 - 0.3 K/uL [facility] External Neutrophils % 62.4 42.0 - 78.0 % [facility] External Lymphocyte % 25.6 11.0 - 47.0 % [facility] External Monocyte % 9.0 0.0 - 11.0 % [facility] External Eosinophil% 2.0 0.0 - 7.0 % [facility] External Basophil % 1.0 0.0 - 3.0 % [facility] External Nucleated RBC%-Auto 0.0 0.0 - 0.9 % [facility] External Nucleated RBC Absolute 0.00 Not Estab. K/uL [facility] 02/17/2022 12:4 2 PM EDT 02/17/2022 12:53 PM EDT us Sima Trejo MD LAB BLOOD ORDERABLES Final Re sult [facility] [address] [place] [address], documented in this encounter Visit Diagnoses Not on filedocumented in this encounter Care Teams Strategy Execution Consultant Relationship Specialty Start Date End Date Pcp, No [address] [place] [address] PCP - General 12/02/20 02/08/23 Oren Pressley MD [address] [place] [address] PCP - General Internal Medicine 02/09/23 Sima Trejo MD [address] [address] Medical Oncologist Hematology and Oncology 08/02/23 documented as of this encounter
--- OUTSIDE RECORDS SUMMARY | 2025-01-19 14:26 | XMS_ITS | Encounter Summary ---
Author Organization [employer] ([place], [place], [place], [place]) Address [address] [place] [address] Care Team Providers Care Skimmer Reverberatory Name Role Phone Oren Pressley MD Primary Care Provider [phone] Encounter Details Date Type Department Care Team (Late st Contact Info) Description 05/16/2018 Transcribed Document [facility] Family Medicine [facility] [place] [address] ProviderLaurel MD [address] [place] [address] Social History Tobacco Use Types Packs/Day Years Used Date Smoking Tobacco: Never Assessed Comments Unknown Sex and Gender Information Value Date Recorded Sex Assigned at Not on file Legal Sex Female 4:44 PM CDT Gender Identity Not on file Sexual Orientation Not on file documented as of this encounter Miscellaneous Notes * Cerner Conversion Note - Historical ProviderMD - 05/16/2018 10:28 AM COTTON PULLER Nursing Discharge Summary Entered On: 05/16/2018 10:29 [...] 05/16/2018 10:28 EST Electronically signed by [facility] Conversion Furniture Arranger Cerner at 08/07/2022 2:09 PM CDT documented in this encounter Plan of Treatment Not on file documented as of this encounter Visit Diagnoses Not on filedocumented in this encounter Care Teams Skimmer Reverberatory Relationship Specialty Start Date End Date Oren Pressley MD [address] [place] [address] [place] [address] PCP - General Adolescent Medicine 05/17/23 documented as of this encounter
--- OUTSIDE RECORDS SUMMARY | 2025-01-19 14:26 | XMS_ITS | Encounter Summary ---
Author Organization Healthcare Address [address] [place] [address] Care Team Providers Care Welt Wheeler Name Role Phone Pcp, No Primary Care Provider Oren Hull MD Primary Care Provider [phone] Sima Trejo MD Unavailable [phone] Encounter Details Date Type Department Care Team (Late st Contact Info) Description 08/04/2021 Orders Only [facility] at [address] [place] [address] Siam Trejo MD [address] [place] [address] [address] Social History Tobacco Use Types [...] Visit [facility] at [address] [place] [address] 02/06/2025 11:30 AM EDT Office Visit [facility] at [address] [place] [address] Sima Trejo MD [address] [place] [address] [address] 02/06/2025 12:00 PM EDT Infusion [facility] at [facility] [address] [place] [address] documented as of this encounter Procedures Procedure Name Priority Date/Time Associated Diagnosis Comments LACTATE DEHYDROGENASE, PLASMA Routine 08/04/2021 12:43 PM EDT documented in this encounter Results * Lactate Dehydrogenase, Plasma (08/04/2021 12:43 PM EDT) External LDH Lactate Dehydrogenase 187 135 - 233 U/L [facility] 08/04/2021 12:4 3 PM EDT 08/04/2021 1:07 PM EDT us Sima Trejo MD LAB BLOOD ORDERABLES Final Re sult Performing Organization Address City/State/[facility] Co de Phone Number [facility] [address] [place] [address], documented in this encounter Visit Diagnoses Not on filedocumented in this encounter Care Teams Welt Wheeler Relationship Specialty Start Date End Date Pcp, No [address] [place] [address] PCP - General 12/02/20 02/08/23 Oren Pressley MD [address] [place] [address] PCP - General Internal Medicine 02/09/23 Sima Trejo MD [address] [place] [address] Medical Oncologist Hematology and Oncology 08/02/23 documented as of this encounter
--- OUTSIDE RECORDS SUMMARY | 2025-01-19 14:26 | XMS_ITS | Encounter Summary ---
Author Organization [employer] ([place], [place], [place], [place]) Address [address] [place] [address] Care Team Providers Care Commercial Correspondent Name Role Phone Oren Corbin MD Primary Care Provider [phone] Encounter Details Date Type Department Care Team (Late st Contact Info) Description 05/16/2018 Transcribed Document [facility] Family Medicine [facility] [place] [address] ProviderLaurel MD [address] [place] [address] Social History Tobacco Use Types Packs/Day Years Used Date Smoking Tobacco: Never Assessed Comments Unknown Sex and Gender Information Value Date Recorded Sex Assigned at Not on file Legal Sex Female 4:44 PM CDT Gender Identity Not on file Sexual Orientation Not on file documented as of this encounter Miscellaneous Notes * Cerner Conversion Note - Laurel ProviderMD - 05/16/2018 12:04 PM CYLINDER DEVALVER [address] [place] [address] Patient Copy Patient Information: Name: [facility] Current Date: 05/16/2018 12:04:39 : 1945 Patient Address: [place] [address] Patient Attending Physician: TAMIKO NIETO MD-DMITRY Primary Care Provider: OREN CORBIN (REF)DELILAH Primary Care Provider Discharge Diagnosis: Atrial fibrillation Weight on Admission: 230 lb, 0 oz Comment: Follow-up Instructions: With: Address: When: GIOVANNI SHAH [address], [place] [address] Business (1) 9:45 AM Discharge Instructions: Diet [...] you are awake and alert. ??? Take nhih-ccl-vwpnmit and prescription medicines only as told by [...] 01/24/2014 Document Revised: 09/07/2016 Document Reviewed: 07/25/2016 [employer] Interactive Patient Education ? 2017 [employer] Electrical Cardioversion, Care After This sheet [...] to help you relax (sedative). ??? Take wssv-zpd-lxfpngv and prescription medicines only as told by [...] 01/24/2014 Document Revised: 11/06/2016 Document Reviewed: 10/09/2016 [employer] Interactive Patient Education ? 2017 [employer]. Medication Leaflets: amiodarone (oral) (A mi [place] [...] may report side effects to FDA at 8-534-ZMJ-3475. What other drugs will affect amiodarone? Sometimes [...] can affect amiodarone. This includes prescription and hbbn-net-mtcwudd medicines, vitamins, and herbal products. Not all [...] to ensure that the information provided by [employer]. ('[employer]') is accurate, up-to-date, and complete, but no guarantee is made to that effect. Drug information contained herein may be time sensitive. [employer] information has been compiled for use by healthcare practitioners and consumers in the [place] and therefore [employer] does not warrant that uses outside of the [place] are appropriate, unless specifically indicated otherwise. [employer] drug information does not endorse drugs, diagnose patients or recommend therapy. [employer] drug information is an informational resource designed [...] effective or appropriate for any given patient. [employer] does not assume any responsibility for any aspect of healthcare administered with the aid of information [employer] provides. The information contained herein is not intended to cover all possible uses, directions, precautions, warnings, drug interactions, allergic reactions, or adverse effects. If you have questions about the drugs you are taking, check with your doctor, nurse or pharmacist. Copyright 1348-3845 [employer]. Version: 7.01. Revision Date: 02/22/2018. CIGARETTE SMOKING: The facts are clear, cigarette smoking will shorten your life. Smoking can cause many illnesses along the way. As a healthcare provider, we recommend that you stop smoking. Assistance with quitting is available by contacting 3-577-OGBO-NOW. This is a free resource providing counseling, [...] Be sure to sign up for the [employer] patient portal, which gives you 09/11 access to your medical information ??? including these discharge instructions ??? using your computer, smartphone, or tablet. Just go to [employer] to get started. Questions? Call . [facility] would like to thank you for allowing us to assist you with your healthcare needs. CARL Hopson PRISCILLA SMI, (or customer loyalty representative) have received the above patient education materials/instructions and have verbalized understanding: Patient Signature _ Date/Time Patient Teacher Learning Disabled Signature (if needed) Date/Time Clinician/Hospital Teacher Learning Disabled Signature (if needed) Date/Time Electronically signed by Interface, [facility] Conversion Range Examiner Cerner at 08/07/2022 2:27 PM CDT documented in this encounter Plan of Treatment Not on file documented as of this encounter Visit Diagnoses Not on filedocumented in this encounter Care Teams Commercial Correspondent Relationship Specialty Start Date End Date Oren Corbin MD [address] [place] [address] PCP - General Adolescent Medicine 05/17/23 documented as of this encounter
[2025-01-19 14:59] LABS: Blood Urea Nitrogen 17 mg/dl (7-17); Creatinine,Serum 1.20 mg/dl (0.52-1.04); Estimated Glomerular Filt Rate 43 ml/min (>60); GFR (African American) 52 ML/MIN (>60)
== END 2025-01-19 23:59 | disposition home or self-care (01) ==
LOC: LAB 14:22
PROVIDERS: PCP Nurse Practitioner Family; Visit Provider Nurse Practitioner Family
DX: C91.12 Chronic lymphocytic leukemia of B-cell type in relapse (principal); Z85.72 Personal history of non-Hodgkin lymphomas
CPT/HCPCS: 36415; 82565; 84520

== ENCOUNTER 2025-01-30 08:04 | Outpatient (CLI) | payer MEDICARE, SELFPAY ==
--- OUTSIDE RECORDS SUMMARY | 2024-12-12 11:15 | XMS_ITS | Encounter Summary ---
Author Organization [facility] Address [address] 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) Sima Costa MD [address] [place] [id number] Phone: tel: fax: Sima Costa MD [address] [place] [phone] Phone: tel: fax: Referral ID Status Reason Start Date Expiration Date V isits Requested Visits Authorized [id number] Authorized 11/14/2024 05/16/2026 1 13 Encounter Details Date Type Department Care Team (Late st Contact Info) Description 12/12/2024 11:15 AM EDT Office Visit [facility] [address] [place] [address] Sima Costa MD [address] [place], [place] [phone] 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 Alcohol Use Standard Drinks/Week Comments Never 0 (1 standard drink = 0.6 oz pur e alcohol) PHQ-2 Answer Date Recorded Patient Health Questionnaire-2 Score 1 11/14/2024 PHQ-9 Answer Date Recorded Patient Health Questionnaire-9 Score 5 11/14/2024 Comments Unknown Sex and Gender Information Value Date Recorded Sex Assigned at Not on file Legal Sex Female 8:16 PM EDT Gender Identity Not on file Sexual Orientation Not on file documented as of this encounter Last Filed Vital Signs Vital Sign Reading Time Taken Comments Blood Pressure 128/68 12/12/2024 10:47 AM EDT Pulse 61 12/12/2024 10:47 AM EDT Temperature 36.6 C (97.8 F) 12/12/2024 10:47 AM EDT Respiratory Rate - - Oxygen Saturation 94% 12/12/2024 10:47 AM EDT Inhaled Oxygen Concentration - - Weight 90.3 kg (199 lb 1.2 oz) 12/12/2024 10:47 AM EDT Height 167.6 cm (5' 6 ) 12/12/2024 10:47 AM EDT Body Mass Index 32.13 12/12/2024 10:47 AM EDT documented in this encounter Miscellaneous Notes * Addendum Note - Sima Costa MD - 12/12/2024 11:15 AM EDTAddended by: SIMA COSTA on: 12/13/2024 11:22 AM Modules accepted: Orders * Progress Notes - Sima Costa MD - 12/12/2024 11:15 AM EDT [facility] HEMATOLOGY/ONCOLOGY FOLLOW UP Shea Iverson 1945 Primary Care Provider: Oren Pressley MD Cancer Staging No matching staging information was found for the patient. 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) Treatment Details Treatment goal [No plan goal] Plan Name Bendamustine / riTUXimab Standard Dose Every 28 Days Status Active Start Date 11/14/2024 End Date 04/03/2025 (Planned) Provider Sima Costa MD Chemotherapy bendamustine (Vivimusta) 175 mg in sodium chloride 0.9 % 250 mL chemo IVPB, 90 mg/m2 =175 mg, Intravenous, Once, 1 of 6 cycles Administration: 175 mg (11/14/2024) riTUXimab-arrx (Riabni) 700 mg in sodium chloride 0.9 % 500 mL IVPB, 375 mg/m2 = 700 mg, Intravenous, Once, 1 of 6 cycles Administration: 700 mg (11/14/2024) Treatment Details Treatment goal [No plan goal] Plan Name Line Care (Peripheral) Status Active Start Date 11/14/2024 End Date Until discontinued Provider Sima Costa MD Chemotherapy [No matching medication found in this treatment plan] Subjective History of Present Illness: Mrs. Iverson is a pleasant 78-year-old female who presents to clinic today for follow-up of her CLL/SLL. She had 4 cycles of Treanda/Rituxan, which she completed in April 2013 and had a wonderful response. Secondary to increasing WBC and LU, pt had initiated imbruvica without difficulty from 01/05 through 03/09 but discontinued secondary to cardiac issues. She is accompanied by her son. Pt was seen in local ER on 12/18/[address] findings concerning for tongue mass at [facility]. Pt is s/p 02/15/23 right tonsillectomy of base on tongue mass biopsy with pathology Right tonsil and base of tongue: -Abnormal CD5 positive B cell population detected by flow cytometry. -Mildly enlarged tonsil with preserved overall architecture (see comments). 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 Correlation with clinical, laboratory and morphologic data is recommended. If needed, FISH testing (CLL panel) is available. Please contact us if further testing for the sample is needed. Additional comment: Morphologic evidence of involvement by lymphoma is minimal. Intact lymphoid follicles with intact benign appearing reactive germinal centers are present. In some areas, interfollicular lymphoid tissue does demonstrate a relatively monomorphous lymphoid population, which is consistent with the immunophenotypic findings suggestive of B-SLL/CLL. The base of tongue specimen was entirely sent for flow cytometry, and is not morphologically examined except for a touch imprint slide (see microscopic description). PET/CT on 03/30/23 revealed: 1. Hypermetabolic mass in the tongue base consistent with neoplasm. 2. Mildly hypermetabolic RUL lung nodule which has slowly increased in size since the previous examination of 07/19/2020. It may represent a slowly growing low-grade primary malignancy. It may be amenable to CT-guided FNA at the hospital. 3. No evidence of neoplastic spread is seen elsewhere in the neck, chest, abdomen or pelvis. Pt had a lung biopsy canceled secondary to uncontrolled HTN. On the second attempt on 05/24/23 pathology revealed: Atypical bronchial epithelium and pulmonary macrophages, favor reactive, see comment. Pt lives alone now. Pt has noted a right supraclavicular node that she notes that waxes and wanes. 10/17/24 CT CAP Increase in size and number of cervical lymph nodes. Significant progression of mediastinal/axillary adenopathy and increased size of RUL lesion Patchy ground glass opacity if both lungs is stable. Interval development of extensive portal, celiac, retroperitoneal, iliac and inguinal adenopathy consistent with progressive lymphoma. Pt has significant fatigue. Pt fell off her toilet a few months ago and was in the ER after a fall which she attributes to a short toilet. She fell again off her toilet. 11/14/24 Cycle #1 Bendamustine and Rituxan. Pt tolerated this remarkably well. She actually feels better. The following portions of the chart were reviewed this encounter and updated as appropriate: Tobacco Allergies Meds Problems Med Hx Surg Hx Fam Hx Objective Review of Systems Constitutional: Positive for fatigue. Negative for chills and fever. HENT: Negative. Negative for mouth sores. Respiratory: Negative for cough and shortness of breath. Cardiovascular: Negative. Negative for chest pain. Gastrointestinal: Negative. Negative for diarrhea, nausea and vomiting. Genitourinary: Negative for frequency. Musculoskeletal: Positive for gait problem. Negative for arthralgias. Skin: Negative for rash. Neurological: Positive for extremity weakness and gait problem. Psychiatric/Behavioral: Negative. Physical Exam: Vital Signs for this encounter: BSA: 2.05 meters squared Visit Vitals BP 128/68 Pulse 61 Temp 36.6 ??C (97.8 ??F) (Temporal) Ht 1.676 m (5' 6 ) Wt 90.3 kg (199 lb 1.2 oz) SpO2 94% BMI 32.13 kg/m?? Smoking Status Former BSA 2.05 m?? Physical Exam Vitals reviewed. HENT: Head: Normocephalic. Mouth/Throat: Mouth: Mucous membranes are moist. Eyes: Extraocular Movements: Extraocular movements intact. Cardiovascular: Rate and Rhythm: Normal rate. Pulses: Normal pulses. Pulmonary: Effort: Pulmonary effort is normal. Abdominal: Palpations: Abdomen is soft. Musculoskeletal: General: Swelling present. Skin: General: Skin is warm. Neurological: Mental Status: She is alert and oriented to person, place, and time. Psychiatric: Mood and Affect: Mood normal. Performance Status: (1) Restricted in physically strenuous activity, ambulatory and able to do work of light nature Results: Orders Only on 12/12/2024 Component Date Value Ref Range Status External WBC 12/12/2024 5.9 3.8 - 10.8 10*3/uL Final External Red Blood Cell (RBC) 12/12/2024 3.54 (L) 3.80 - 5.20 10*6/uL Final External Hemoglobin 12/12/2024 10.8 (L) 12.0 - 16.0 g/dL Final External Hematocrit 12/12/2024 32.1 (L) 35.0 - 47.0 % Final External MCV 12/12/2024 91 80 - 100 fL Final External MCH 12/12/2024 31 26 - 35 pg Final External MCHC 12/12/2024 34 32 - 36 g/dL Final External RDW 12/12/2024 17.4 (H) 11.0 - 15.0 % Final External Mean Platelet Volume 12/12/2024 7.7 6.2 - 10.5 fL Final External Platelet Count (Plt) 12/12/2024 67 (L) 150 - 400 10*3/uL Final External Neutrophil# 12/12/2024 2.6 1.6 - 8.4 10*3/uL Final External Lymphocyte# 12/12/2024 2.8 0.4 - 5.1 10*3/uL Final External Absolute Monocyte (Abs Mo* 12/12/2024 0.4 0.0 - 1.2 10*3/uL Final External Eosinophils# 12/12/2024 0.1 0.0 - 0.8 10*3/uL Final External Baso# 12/12/2024 0.0 0.0 - 0.3 10*3/uL Final External Neutrophils % 12/12/2024 44.5 42.0 - 78.0 % Final External Lymphocyte % 12/12/2024 47.4 (H) 11.0 - 47.0 % Final External Monocyte % 12/12/2024 6.1 0.0 - 11.0 % Final External Eosinophil% 12/12/2024 1.6 0.0 - 7.0 % Final External Basophil % 12/12/2024 0.4 0.0 - 3.0 % Final External Nucleated RBC%-Auto 12/12/2024 0.0 0.0 - 0.9 % Final External Nucleated RBC Absolute 12/12/2024 0.00 Not Estab. 10*3/uL Final External Glucose 12/12/2024 127 (H) 74 - 100 mg/dL Final External BUN 12/12/2024 16 6 - 20 mg/dL Final External Creatinine Blood 12/12/2024 1.30 (H) 0.50 - 0.95 mg/dL Final External BUN/Creat Ratio 12/12/2024 12 10 - 20 (calc) Final External Sodium 12/12/2024 138 136 - 145 mmol/L Final External Potassium 12/12/2024 4.3 3.4 - 5.0 mmol/L Final External Chloride 12/12/2024 105 98 - 107 mmol/L Final External Carbon Dioxide (CO2) 12/12/2024 23 22 - 31 mmol/L Final External Anion Gap (AG) 12/12/2024 10 7 - 25 (calc) Final External Calcium 12/12/2024 8.9 8.6 - 10.2 mg/dL Final External Total Protein 12/12/2024 6.1 (L) 6.4 - 8.3 g/dL Final External Albumin 12/12/2024 4.0 3.5 - 5.2 g/dL Final External Globulin 12/12/2024 2.1 1.5 - 4.5 Final External Albumin/Globulin Ratio 12/12/2024 1.9 1.1 - 2.5 (calc) Final External Bilirubin Total 12/12/2024 0.5 0.1 - 1.0 mg/dL Final NOTE: New reference range. External Alkaline Phosphatase 12/12/2024 83 30 - 121 U/L Final External AST (SGOT) 12/12/2024 18 0 - 32 U/L Final External ALT (SGPT) 12/12/2024 13 0 - 33 U/L Final External Estimated GFR 12/12/2024 41 (A) >=60 Final Comment: NOTE New calculation for GFR (CKD-EPI 2020) is formulated without race adjustment factors at the recommendation of the National Kidney Foundation and [place] [employer]ph[employer]. This calculation has not been validated in women. For pediatric patients refer to https://www.kidney.org/professionals/KDOQI/gfr_calculatorPed External LDH Lactate Dehydrogenase 12/12/2024 157 135 - 233 U/L Final External Uric Acid 12/12/2024 5.9 (H) 2.4 - 5.7 mg/dL Final Comment: Reference ranges are based on population norms and do not necessarily correlate with treatment targets. In patients with an established diagnosis of gout undergoing Urate Lowering Therapy (ULT), the 2012 [place] [employer] Guidelines for Management of Gout recommend a target uric acid level of < 6 mg/dL in all patients, or lower in certain circumstances. Arthritis Care and Research Vol 64 No 10, Jan. 2011 [place] [employer] Infusion on 11/14/2024 Component Date Value Ref Range Status External Prothrombin Time (PT) 11/14/2024 26.9 (H) 9.0 - 11.0 SECONDS Final NOTE: New reference range. External INR - Internormal Ratio 11/14/2024 2.8 2.0 - 3.0 Final Comment: INR OF 2.0 TO 3.0 RECOMMENDED FOR: PROPHYLAXIS AND TREATMENT OF VENOUS THROMBOSIS TREATMENT OF PULMONARY EMBOLISM PREVENTION OF SYSTEMIC EMBOLISM TISSUE HEART VALVES, VALVULAR HEART DISEASE ACUTE MYOCARDIAL INFARCTION, ATRIAL FIBRILLATION INR OF 2.5 TO 3.5 RECOMMENDED FOR: RECURRENT SYSTEMIC EMBOLISM MECHANICAL PROSTHETIC VALVES No results found. Assessment/Plan 1. 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 Pt's labs are reviewed. She is off all therapies. WBC is elevated but has no symptomatic cytopoenias and lymphadenopathy. Pt is s/p right tonsillectomy with pathology c/w CLL. She was intolerant of imbruvica. We will continue Cycle #2 rituxan and holding bendamustine given her thrombocytopenia. Potential ill adverse SE include but not limited to NVD, cytopenias, allergic reaction, tumor lysis and even . Given her age and prior therapy, we will not give Day 2 bendamustine. C85.93: Non-Hodgkin lymphoma, unspecified, intra-abdominal lymph nodes 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 - As above. C85.99: Non-Hodgkin lymphoma, unspecified, extranodal and solid organ sites 3. History of malignant neoplasm of skin - FU dermatology. Z85.828: Personal history of other malignant neoplasm of skin 4. Pulmonary nodule of RUL. Pt is s/p benign biopsy. 5. HTN. I have asked pt to see PCP. * Progress Notes - Jo Nur, PharmD - 12/12/2024 11:15 AM EDT Pharmacy Hematology/Oncology Treatment Note Shea Iverson is a 79 y.o. female with relapsed CLL Cancer Staging No matching staging information was found for the patient. . Study Patient: no Treatment Plan reviewed for Bendamustine/Rituximab every 28 days. [x] Follow-Up Clinical Review for Cycle 2 Day 1-Omit+ dose reduction [] Follow-Up Clinical Review for Continuous Oral Therapy Interval History: October CT scan has shown some progression (increase in size/number of cervical lymph nodes+ mediastinal/axillary adenopathy+incresed size of RUL lesion). She was currently off all therapies. Plan now will be to begin above chemotherapy. Update 12/12/24: Will proceed with Cycle 2 Rituximab but will hold Bendamustine today d/t thrombocytopenia. Will dose reduce doses for Cycle 3/beyond. Today's Wt: Wt Readings from Last 1 Encounters: 12/12/24 90.3 kg (199 lb 1.2 oz) Dosing Wt: 85.3 kg Dosing Ht: 167.6 cm DosingBSA: 1.95 m2 Recent Labs: Lab Results Component Value Date WBC 5.9 12/12/2024 HGB 10.8 (L) 12/12/2024 HCT 32.1 (L) 12/12/2024 MCV 91 12/12/2024 PLT 67 (L) 12/12/2024 Lab Results Component Value Date GLUCOSE 127 (H) 12/12/2024 NA 138 12/12/2024 K 4.3 12/12/2024 CO2 23 12/12/2024 BUN 16 12/12/2024 CREATININE 1.30 (H) 12/12/2024 Lab Results Component Value Date ALT 13 12/12/2024 AST 18 12/12/2024 ALKPHOS 83 12/12/2024 BILITOT 0.5 12/12/2024 No results found for: NEUTROABS No results found for: MG No results found for: TSH No results found for: URINEPRO Vitals: Visit Vitals BP 128/68 Pulse 61 Temp 36.6 ??C (97.8 ??F) (Temporal) Other Relevant Monitoring: n/a Treatment/Therapy Plan: Bendamustine 50mg/m2(97.5 mg) IV + Rituximab-arrx 375 mg/m2 (700mg) IV Every 28 Days [x] Day 1 only Bendamustine further dose reduced d/t thrombocytopenia C3/beyond Current Treatment Plan History: Bendamustine (Vivimusta)+Rituximab-arrx (Riabni) Cycle 1: 11/14/24 Cycle 2: 12/12/24-Rituximab only (Scott held) Cycle 3: 01/09/25-Scott dose reduction Prior Treatment History: X4 cycles Treanda/Rituxan-completed 04/2013 Imbruvica-started 12/2018-02/2021-d/cd d/t cardiac issues/intolerance Plan: Patient will return to clinic in 4 weeks to continue therapy. Will follow-up at that time. 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) 02/06/2025 10:30 AM EDT Office Visit [facility] [address] [phone] 02/06/2025 11:30 AM EDT Office Visit [facility] [address] [phone] Sima Costa MD [address] [place] [phone] 02/06/2025 12:00 PM EDT Infusion [facility] [address] [phone] documented as of this encounter Results * (ABNORMAL) Comprehensive metabolic panel (01/09/2025 10:50 AM EDT) External Glucose 128(H) 74 - 100 mg/dL 01/09/2025 11:44 AM EDT [facility] External BUN 14 6 - 20 mg/dL 01/09/2025 11:44 AM EDT [facility] External Creatinine Blood 1.41(H) 0.50 - 0.95 mg/dL 01/09/2025 11:44 AM EDT [facility] External BUN/Creat Ratio 10 10 - 20 (calc) 01/09/2025 11:44 AM EDT [facility] External Sodium 135(L) 136 - 145 mmol/L 01/09/2025 11:44 AM EDT [facility] External Potassium 4.1 3.4 - 5.0 mmol/L 01/09/2025 11:44 AM [facility] External Chloride 101 98 - 107 mmol/L 01/09/2025 11:44 AM [facility] External Carbon Dioxide (CO2) 22 22 - 31 mmol/L 01/09/2025 11:44 AM [facility] External Anion Gap (AG) 12 7 - 25 (calc) 01/09/2025 11:44 AM [facility] External Calcium 9.0 8.6 - 10.2 mg/dL 01/09/2025 11:44 AM [facility] External Total Protein 6.1(L) 6.4 - 8.3 g/dL 01/09/2025 11:44 AM [facility] External Albumin 4.0 3.5 - 5.2 g/dL 01/09/2025 11:44 AM [facility] External Globulin 2.1 1.5 - 4.5 025 11:44 AM [facility] External Albumin/Globulin Ratio 1.9 1.1 - 2.5 (calc) 01/09/2025 11:44 AM [facility] External Bilirubin Total 0.6 0.1 - 1.0 mg/dL 01/09/2025 11:44 AM [facility] Comment:NOTE: New reference range. External Alkaline Phosphatase 78 30 - 121 U/L 01/09/2025 11:44 AM [facility] External AST (SGOT) 19 0 - 32 U/L 01/09/2025 11:44 AM [facility] External ALT (SGPT) 13 0 - 33 U/L 01/09/2025 11:44 AM [facility] External Estimated GFR 37(A) >=60 01/09/2025 11:44 AM [facility] Comment: NOTE New calculation for GFR (CKD-EPI 2020) is formulated without race adjustment factors at the recommendation of the National Kidney Foundation and [place] [employer] Neph[employer]. This calculation has not been validated in women. For pediatric patients refer to https://www.kidney.org/professionals/KDOQI/gfr_calculatorPed Blood Venous blood specimen / Unknown 01/09/2025 10:50 AM EDT 01/09/2025 11:16 AM EDT us Sima Costa MD LAB BLOOD ORDERABLES Final Re sult [facility] [address] [id number], * (ABNORMAL) CBC and differential (01/09/2025 10:50 AM EDT) External WBC 6.8 3.8 - 10.8 10*3/uL 01/09/2025 11:55 AM EDT [facility] External Red Blood Cell (RBC) 3.61(L) 3.80 - 5.20 10*6/uL 01/09/2025 11:55 AM EDT [facility] External Hemoglobin 11.0(L) 12.0 - 16.0 g/dL 01/09/2025 11:55 AM EDT [facility] External Hematocrit 33.1(L) 35.0 - 47.0 % 01/09/2025 11:55 AM EDT [facility] External MCV 92 80 - 100 fL 01/09/2025 11:55 AM EDT [facility] External MCH 31 26 - 35 pg 01/09/2025 11:55 AM EDT [facility] External MCHC 33 32 - 36 g/dL 01/09/2025 11:55 AM EDT [facility] External RDW 17.4(H) 11.0 - 15.0 % 01/09/2025 11:55 AM EDT [facility] External Mean Platelet Volume 7.3 6.2 - 10.5 fL 01/09/2025 11:55 AM EDT [facility] External Platelet Count (Plt) 123(L) 150 - 400 10*3/uL 01/09/2025 11:55 AM EDT [facility] External Neutrophil# 2.7 1.6 - 8.4 10*3/uL 01/09/2025 11:55 AM EDT [facility] External Lymphocyte# 3.5 0.4 - 5.1 10*3/uL 01/09/2025 11:55 AM EDT [facility] External Absolute Monocyte (Abs Colbert) 0.3 0.0 - 1.2 10*3/uL 01/09/2025 11:55 AM EDT [facility] External Eosinophils# 0.2 0.0 - 0.8 10*3/uL 01/09/2025 11:55 AM EDT [facility] External Baso# 0.0 0.0 - 0.3 10*3/uL 01/09/2025 11:55 AM EDT [facility] External Neutrophils % 39.0(L) 42.0 - 78.0 % 01/09/2025 11:55 AM EDT [facility] External Lymphocyte % 52.0(H) 11.0 - 47.0 % 01/09/2025 11:55 AM EDT [facility] External Monocyte % 5.0 0.0 - 11.0 % 01/09/2025 11:55 AM EDT [facility] External Eosinophil% 3.0 0.0 - 7.0 % 01/09/2025 11:55 AM EDT [facility] External Basophil % 0.0 0.0 - 3.0 % 01/09/2025 11:55 AM EDT [facility] External Nucleated RBC%-Auto 0.2 0.0 - 0.9 % 01/09/2025 11:55 AM EDT [facility] External Nucleated RBC Absolute 0.01 Not Estab. 10*3/uL 01/09/2025 11:55 AM EDT [facility] Blood Venous blood specimen / Unknown 01/09/2025 10:50 AM EDT 01/09/2025 11:16 AM EDT us Sima Costa MD LAB BLOOD ORDERABLES Final Re sult [facility] [address] [place] [address], documented in this encounter Visit Diagnoses Diagnosis 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)- Primary Chronic lymphoid leukemia, in relapse 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) Chronic lymphoid leukemia, in relapse documented in this encounter Additional Health Concerns Assessment Noted Time PHQ-9 Depression Total Score: 5 11/15/19 25 9:00 AM EDT A fall risk assessment has been complete d for the patient 08/08/2024 2:12 PM EDT documented as of this encounter Care Teams Twister Operator Relationship Specialty Start Date End Date Oren Pressley MD [address] [place] [id number] PCP - General Internal Medicine 02/09/23 Sima Costa MD [address] [phone] Medical Oncologist Hematology and Oncology 08/02/23 documented as of this encounter
--- OUTSIDE RECORDS SUMMARY | 2024-12-12 11:30 | XMS_ITS | Encounter Summary ---
Author Organization [facility] Address [address] 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) Sima Trejo MD [address] [place], [place] [address] [address] [address] Phone: tel: fax: Sima Tre[facility] MD [address] [address] Phone: tel: fax: Referral ID Status Reason Start Date Expiration Date V isits Requested Visits Authorized [id number] Authorized 11/14/2024 05/16/2026 1 13 Encounter Details Date Type Department Care Team (Late st Contact Info) Description 12/12/2024 11:30 AM EDT Infusion [facility] at [facility] [address] [place] [phone] 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) [...] st Contact Info) Description 02/06/2025 Orders Only [facility] at [place] [address] [place] [address] Sima Trejo MD [address] [place], [place] [address] [phone] 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) 02/06/2025 10:30 AM EDT Office Visit [facility] at [address] [place] [phone] 02/06/2025 11:30 AM EDT Office Visit [facility] at [address] [place] [address] Sima [facility] [phone] 02/06/2025 12:00 PM EDT Infusion [facility] at [address] [place] [address] documented as of this encounter Visit Diagnoses Diagnosis 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)- Primary Chronic lymphoid leukemia, in relapse 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) Chronic lymphoid leukemia, in relapse documented in this encounter Administered Medications Inactive Administered Medications - up to 3 most recent administrations Medication Order MAR Action Action Date Dose Rate Site acetaminophen (Tylenol) tablet 650 mg 650 mg, Oral, Once, 1 dose, On Wed12/12/24 at 1230, RoutineIndications: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) Given 12/12/2024 12:18 PM EDT 650 mg dexamethasone (Decadron) tablet 12 mg 12 mg, Oral, Once, 1 dose, On Wed12/12/24 at 1230, RoutineIndications: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 ([facility]) Given 12/12/2024 12:18 PM EDT 12 mg diphenhydrAMINE (Benadryl) tablet 50 mg 50 mg, Oral, Once, 1 dose, On Wed12/12/24 at 1230, RoutineIndications: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 ([facility]) Given 12/12/2024 12:18 PM EDT 50 mg ondansetron ODT (Zofran-ODT) disintegrating tablet 16 mg 16 mg, Oral, Once, 1 dose, On Wed12/12/24 at 1230, RoutineIndications: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 ([facility]) Given 12/12/2024 12:18 PM EDT 16 mg riTUXimab-arrx (Riabni) 700 mg in sodium chloride 0.9 % 500 mL IVPB 700 mg (rounded from 731.25 mg = 375 mg/m2 1.95 m2 Treatment Plan BSA from Recorded weight), Intravenous, Once, Concentration: 1.1 mg/mL (ATV: 615 mL) Rapid Rate: 273 mg/jk=065 mL/hr for 30 min (VTBI: 124 mL) 555 mg/sm=811 mL/hr for 60 min (VTBI: 491 mL) Refer to hypersensitivity protocol for rate changes if intolerance or adverse reaction. Specific administration requirements refer to A14-065. Refer to hypersensitivity protocol for rate changes if intolerance or adverse reaction, On Wed12/12/24 at 1300, For 1 doseIndications: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 ([facility]) New Bag 12/12/2024 12:53 PM EDT 700 mg sodium chloride 0.9 % flush 10 mL 10 mL, Intravenous, As needed, Starting on Wed12/12/24 at 1212, Until Wed12/12/24 at 1709, Routine, line care, Flush Before and After EVERY dose of medication.Indications: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 ([facility]) Given 12/12/2024 12:13 PM EDT 10 mL documented in this encounter Additional Health Concerns Assessment Noted Time PHQ-9 Depression Total Score: 5 11/15/19 25 9:00 AM EDT A fall risk assessment has been complete d for the patient 08/08/2024 2:12 PM EDT documented as of this encounter Care Teams Gift Shop Manager Relationship Specialty Start Date End Date Oren Pressley MD [address] [place] [address] PCP - General Internal Medicine 02/09/23 Sima Trejo MD [address] [phone] Medical Oncologist Hematology and Oncology 08/02/23 documented as of this encounter
--- OUTSIDE RECORDS SUMMARY | 2025-01-09 11:45 | XMS_ITS | Encounter Summary ---
Author Organization [facility] Address [address] 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) Sima Trejo MD [address] [place] [phone] Phone: tel: fax: Sima Trejo MD [address] [place] [phone] Phone: tel: fax: Referral ID Status Reason Start Date Expiration Date V isits Requested Visits Authorized [id number] Authorized 11/14/2024 05/16/2026 1 13 Encounter Details Date Type Department Care Team (Late st Contact Info) Description 01/09/2025 11:45 AM EDT Office Visit [facility] [address] [place] [address] Sima Trejo MD [address] [place] [phone] 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 [...] Trejo MD - 01/09/2025 11:45 AM EDT [facility] HEMATOLOGY/ONCOLOGY FOLLOW UP Shea Chaparro Kishor 1945 [...] CT findings concerning for tongue mass at [facility]. Pt is s/p 02/15/23 right tonsillectomy [...] recommendation of the National Kidney Foundation and [place] [employer]. This calculation has not [...] undergoing Urate Lowering Therapy (ULT), the 2012 [place] [employer] Guidelines for Management of Gout recommend a target uric acid level of < 6 mg/dL in all patients, or lower in certain circumstances. Arthritis Care and Research Vol 64 No 10, Jan. 2011 [place] [employer] Assessment/Plan 1. Malignant lymphoma [...] st Contact Info) Description 02/06/2025 Orders Only [facility] [address] [place] [address] Sima Trejo MD [address] [place] [phone] 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 ([facility]/HCC) 02/06/2025 10:30 AM EDT [facility] [address] [phone] 02/06/2025 11:30 AM EDT [facility] [address] [address] Sima Trejo MD [address] [place] [phone] 02/06/2025 12:00 PM EDT [facility]fusion [facility] [address] [address] documented as of this encounter Visit Diagnoses Diagnosis 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)- Primary Chronic lymphoid leukemia, in relapse 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 ([facility]/HCC) Chronic lymphoid leukemia, in relapse documented in this encounter Additional Health Concerns Assessment Noted Time PHQ-9 Depression Total Score: 5 11/15/19 25 9:00 AM EDT A fall risk assessment has been complete d for the patient 08/08/2024 2:12 PM EDT documented as of this encounter Care Teams Air Crew Officer Relationship Specialty Start Date End Date Oren Pressley MD [address] [place] [address] PCP - General Internal Medicine 02/09/23 Sima Trejo MD [address] [phone] Medical Oncologist Hematology and Oncology 08/02/23 documented as of this encounter
--- OUTSIDE RECORDS SUMMARY | 2025-01-09 12:00 | XMS_ITS | Encounter Summary ---
Author Organization [facility] Address [address] [place] [address] Care Team Providers Care Fish Flipper Name Role Phone Oren Pressley MD Primary Care Provider [phone] Sima Trejo MD Unavailable [phone] Reason for Visit * Reason Comments OP Infusion Rituxan/Bendeka * Episode Based Medications (Routine) - Authorized Specialty Diagnoses / Procedures Referred By Contac t Referred To Contact Diagnoses 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 ([facility]/HCC) Sima [facility]jo [facility] [address] [address] [address] Phone: tel: [place]: [place] [address] [place] [phone] Phone: tel: fax: Referral ID Status Reason Start Date Expiration Date V isits Requested Visits Authorized [id number] Authorized 11/14/2024 05/16/2026 1 13 Encounter Details Date Type Department Care Team (Late st Contact Info) Description 01/09/2025 12:00 PM EDT Infusion [facility] [address] [place] [phone] 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 ([facility]/HCC) (Primary Dx) Social History Tobacco Use Types [...] st Contact Info) Description 02/06/2025 Orders Only [facility] [address] [place] [address] Sima Trejo MD [address] [phone] 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) 02/06/2025 10:30 AM EDT Office Visit [facility] [address] [place] [address] 02/06/2025 11:30 AM EDT Office Visit [facility] [address] [place] [address] Sima Trejo MD [address] [phone] 02/06/2025 12:00 PM EDT Infusion [facility] [address] [place] [phone] documented as of this encounter Visit Diagnoses [...] 1245, RoutineIndications: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/[facility]) Given 01/09/2025 12:34 PM EDT 12 mg diphenhydrAMINE (Benadryl) tablet 50 mg 50 mg, Oral, Once, 1 dose, On Wed01/09/25 at 1245, RoutineIndications: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 ([facility]) Given 01/09/2025 12:34 PM EDT 50 mg ondansetron ODT (Zofran-ODT) disintegrating tablet 16 mg 16 mg, Oral, Once, 1 dose, On Wed01/09/25 at 1245, RoutineIndications: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 ([facility]) Given 01/09/2025 12:34 PM EDT 16 mg riTUXimab-arrx (Riabni) 700 mg in sodium chloride 0.9 % 500 mL IVPB 700 mg (rounded from 731.25 mg = 375 mg/m2 1.95 m2 Treatment Plan BSA from Recorded weight), Intravenous, Once, Concentration: 1.1 mg/mL (ATV: 615 mL) Rapid Rate: 273 mg/hv=431 mL/hr for 30 min (VTBI: 124 mL) 555 mg/ml=411 mL/hr for 60 min (VTBI: 491 mL) Refer to hypersensitivity protocol for rate changes if intolerance or adverse reaction. Specific administration requirements refer to A14-065. Refer to hypersensitivity protocol for rate changes if intolerance or adverse reaction, On Wed01/09/25 at 1345, For 1 doseIndications: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 ([facility]) Rate/Dose Change 01/09/2025 2:34 PM EDT 496 mL/hr New Bag 01/09/2025 2:03 PM EDT 700 mg sodium chloride 0.9 % flush 10 mL 10 mL, Intravenous, As needed, Starting on Wed01/09/25 at 1226, Until Wed01/09/25 at 1821, Routine, line care, Flush Before and After EVERY dose of medication.Indications: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 ([facility]) Given 01/09/2025 1:34 PM EDT 10 mL sodium chloride 0.9 % flush 20 mL 20 mL, Intravenous, Every 1 hour PRN, Starting on Wed01/09/25 at 1226, Until Tu01/09/25 at 1821, Routine, line care, After blood draws and if any blood seen in tubing.Indications: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) Given 01/09/2025 3:37 PM EDT 20 mL Given 01/09/2025 2:00 PM EDT 20 mL documented in this encounter Additional Health Concerns Assessment Noted Time PHQ-9 Depression Total Score: 5 11/15/19 9:00 AM EDT A fall risk assessment has been complete d for the patient 08/08/2024 2:12 PM EDT documented as of this encounter Care Teams Fish Flipper Relationship Specialty Start Date End Date Oren Pressley MD [address] [place] [address] PCP - General Internal Medicine 02/09/23 Sima Trejo MD [address] [phone] Medical Oncologist Hematology and Oncology 08/02/23 documented as of this encounter
--- NOTE | 2025-01-30 08:09 | CT_ITS ---
FINAL REPORT TECHNIQUE: Thin section axial images are obtained through the abdomen and pelvis after intravenous contrast. Reconstruction images were obtained from the axial data. Exam was performed using dose reduction techniques. 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 No focal lesion. GALLBLADDER/BILIARY SYSTEM: Gallbladder is absent. No gallstones. No biliary dilatation. SPLEEN: Unremarkable. PANCREAS: Unremarkable. ADRENALS: Unremarkable. KIDNEYS/URETERS/BLADDER: No hydronephrosis, renal mass, or renal stone. Unremarkable urinary bladder. GI TRACT: No small bowel obstruction or dilatation. Appendix not seen, no secondary signs of appendicitis. No acute colon abnormality. PELVIC ORGANS: Unremarkable for age. LYMPH NODES/RETROPERITONEUM/MESENTERY: Interval improvement in retroperitoneal lymphadenopathy. For example, aortocaval lymph node on image 40 measures 15 mm and was 20 mm. Iliac lymphadenopathy is improved. Inguinal lymphadenopathy is improved. No abdominal aortic aneurysm. ABDOMINAL WALL: The abdominal wall is intact. FREE FLUID: No ascites. BONES: No acute osseous abnormality. IMPRESSION: Improved disease burden. Improved lymphadenopathy. Reviewed, Interpreted and Dictated by Jazlyn Wong MD Transcribed by Judy Luis Authenticated and [facility]
--- NOTE | 2025-01-30 08:09 | CT_ITS ---
FINAL REPORT TECHNIQUE: Thin section axial CT images with coronal and sagittal reformats were performed after the administration of IV contrast. This study was performed with techniques to keep radiation doses as low as reasonably achievable (ALARA). Individualized dose reduction techniques using automated exposure control or adjustment of mA and/or kV according to the patient''s size were employed. CLINICAL HISTORY: hx of lymphoma pt has had 4 infusions of chemo COMPARISON: 10/17/2024 FINDINGS: The nasopharynx, oropharynx, epiglottis, and larynx are unremarkable. There is a subcentimeter hypodense right thyroid nodule. The salivary glands are unremarkable. There has been interval improvement in bilateral cervical lymphadenopathy. Many of the lymph nodes now measure less than 1 cm. However, some are still enlarged. For example, a right submandibular axillary node on image 45 measures 11 mm in with 17 mm. A right supraclavicular lymph node measures 12 mm and was 21 mm. There is no evidence of fluid collection. No new lymphadenopathy identified. Paranasal sinuses and mastoid air cells are clear. There is no acute osseous abnormality. IMPRESSION: Interval improvement in bilateral cervical lymphadenopathy consistent with improved disease. Reviewed, Interpreted and Dictated by Jazlyn Wong MD Transcribed by Judy Luis Authenticated and [facility]
--- NOTE | 2025-01-30 08:09 | CT_ITS ---
FINAL REPORT TECHNIQUE: Thin section axial images were obtained from the thoracic inlet through the upper abdomen after intravenous contrast injection. Reconstruction images were obtained from the axial data. Exam was performed using dose reduction technique. 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 An index lymph node in the AP window measures 13 mm and was 30 mm. There is no pleural or pericardial effusion. The heart is enlarged. Masslike opacity in the right upper lobe measuring 43 x 40 mm was 37 x 38 mm at the same level on previous exam. Interlobular septal thickening bilaterally is worse. There are subtle ground-glass opacities, underlying pulmonary edema not excluded. No acute osseous abnormality. IMPRESSION: Improved disease burden with interval decrease in lymphadenopathy. Possible increase in size right upper lobe mass. Neoplasm not excluded. Findings concerning for mild pulmonary edema. Reviewed, Interpreted and Dictated by Jazlyn Wong MD Transcribed by Judy Luis Authenticated and [facility]
--- OUTSIDE RECORDS SUMMARY | 2025-01-30 08:23 | XMS_ITS | Encounter Summary ---
Author Organization Healthcare Address [address] [place] [address] Care Team Providers Care Command Post Craftsman Name Role Phone Pcp, No Primary Care Provider Oren Hull MD Primary Care Provider Sima Trejo MD Unavailable [phone] Encounter Details Date Type Department Care Team (Late st Contact Info) Description 05/26/2022 Orders Only [facility] at [facility] [address] [place] [address] Sima Trejo MD [address] [place], [place] [address] [address] [address] Social History Tobacco Use Types Packs/Day Years [...] st Contact Info) Description 02/06/2025 Orders Only [facility] at [facility] [address] [place] [address] [facility] [address] 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) 02/06/2025 10:30 AM EDT Office Visit [facility] at [facility] [address] [place] [address] 02/06/2025 11:30 AM EDT Office Visit [facility] at [facility] [address] [place] [address] Sima Trejo MD [address] [address] 02/06/2025 12:00 PM EDT Infusion [facility] at [facility] [address] [place] [address] documented as of this encounter Procedures Procedure Name Priority Date/Time Associated Diagnosis Comments COMPREHENSIVE METABOLIC PANEL, PLASMA Routine 05/26/2022 1:07 PM EST documented in this encounter Results * (ABNORMAL) Comprehensive Metabolic Panel, Plasma (05/26/2022 1:07 PM EST) External Glucose 116(H) 74 - 100 mg/dL [facility] External BUN 22(H) 6 - 20 mg/dL [facility] External Creatinine Blood 1.15(H) 0.50 - 0.95 mg/dL [facility] External BUN/Creat Ratio 19 10 - 20 (calc) [facility] External Sodium 140 136 - 145 mmol/L [facility] External Potassium 4.4 3.4 - 5.0 mmol/L [facility] External Chloride 104 98 - 107 mmol/L [facility] External Carbon Dioxide 25 22 - 31 mmol/L [facility] External Anion Gap (AG) 11 7 - 25 (calc) [facility] External Calcium 9.5 8.6 - 10.2 mg/dL [facility] External Total Protein 7.0 6.4 - 8.3 g/dL [facility] External Albumin 4.3 3.5 - 5.2 g/dL [facility] External Globulin 2.7 1.5 - 4.5 g/dL (calc) [facility] External Albumin/Globulin Ratio 1.6 1.1 - 2.5 (calc) [facility] External Bilirubin Total 0.4 0.1 - 1.2 mg/dL [facility] External Alkaline Phosphatase 71 30 - 121 U/L [facility] External AST (SGOT) 18 0 - 32 U/L [facility] External ALT (SGPT) 15 0 - 33 U/L [facility] External Estimated GFR 49(A) >=60 [facility] Comment: NOTE New calculation for GFR (CKD-EPI 2020) is formulated without race adjustment factors at the recommendation of the National Kidney Foundation and [place] [employer]ph[employer]. This calculation has not been validated in women. For pediatric patients refer to https://www.kidney.org/professionals/KDOQI/gfr_calculatorPed 05/26/2022 1:07 PM EST 05/26/2022 1:19 PM EST us Sima Trejo MD LAB BLOOD ORDERABLES Final Re sult [facility] [address] [place] [address], [place] [phone] documented in this encounter Visit Diagnoses Not on filedocumented in this encounter Care Teams Command Post Craftsman Relationship Specialty Start Date End Date Pcp, No [address] [place] [address] PCP - General 12/02/20 02/08/23 Oren Pressley MD [address] [facility] [address] [place] [address] PCP - General Internal Medicine 02/09/23 Sima Trejo MD [address] [address] Medical Oncologist Hematology and Oncology 08/02/23 documented as of this encounter
--- OUTSIDE RECORDS SUMMARY | 2025-01-30 08:23 | XMS_ITS | Encounter Summary ---
Author Organization Healthcare Address [address] [place] [address] Care Team Providers Care Hemstitching Machine Operator Name Role Phone Pcp, No Primary Care Provider Oren Hull MD Primary Care Provider [phone] Sima Trejo MD Unavailable [phone] Encounter Details Date Type Department Care Team (Late st Contact Info) Description 05/26/2022 Orders Only [facility] [address] [place] [phone] Sima Trejo MD [address] [place], [place] [address] [address] [phone] Social History Tobacco Use Types Packs/Day Years [...] st Contact Info) Description 02/06/2025 Orders Only [facility] [address] [place] [phone] [facility] [address] 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) 02/06/2025 10:30 AM EDT Office Visit [facility] [address] [place] [phone] 02/06/2025 11:30 AM EDT Office Visit [facility] [address] [place] [address] Sima Trejo MD [address] [place] [phone] 02/06/2025 12:00 PM EDT Infusion [facility] [address] [place] [address] documented as of this encounter Procedures Procedure Name Priority Date/Time Associated Diagnosis Comments URIC ACID, PLASMA Routine 05/26/2022 1:0 7 PM EST documented in this encounter Results * (ABNORMAL) Uric Acid, Plasma (05/26/2022 1:07 PM EST) External Uric Acid 8.9(H) 2.4 - 5.7 mg/dL [facility] Comment: Reference ranges are based on population norms and do not necessarily correlate with treatment targets. In patients with an established diagnosis of gout undergoing Urate Lowering Therapy (ULT), the 2012 [place] [employer] Guidelines for Management of Gout recommend a target uric acid level of < 6 mg/dL in all patients, or lower in certain circumstances. Arthritis Care and Research Vol 64 No 10, Jan. 2012 [place] [employer] 05/26/2022 1:07 PM EST 05/26/2022 1:19 PM EST us Sima Trejo MD LAB BLOOD ORDERABLES Final Re sult [facility] [address], [place] [address] [phone] documented in this encounter Visit Diagnoses Not on filedocumented in this encounter Care Teams Hemstitching Machine Operator Relationship Specialty Start Date End Date Pcp, No [address] [place] [address] PCP - General 12/02/20 02/08/23 Oren Pressley MD [address] [place] [address] PCP - General Internal Medicine 02/09/23 Sima Trejo MD [address] [place] [address] [place] [address] Medical Oncologist Hematology and Oncology 08/02/23 documented as of this encounter
--- OUTSIDE RECORDS SUMMARY | 2025-01-30 08:23 | XMS_ITS | Clinical Summary ---
Author Organization Healthcare Address [address] [place] [address] Care Team Providers Care Distribution Superintendent Name Role Phone Oren Pressley MD Primary Care Provider [phone] Sima Trejo MD Unavailable [phone] Allergies No known active allergies Medications [...] by mouth Daily. Active ergocalciferol 1.25 MG (78781 UT) capsule 3 Active cyanocobalamin (Vitamin B-12) [...] Department Care Team Description 01/11/2025 Social Work [facility] at [facility] [address] [place] [address] Jo Helms, BACKUP ENGINEER 01/10/2025 Social Work Psych Oncology [address] [place] [address] Janet Thomas 01/09/2025 12:00 PM EDT Infusion [facility] [place] [address] [place] [address] 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) (Primary Dx) 01/09/2025 11:45 AM EDT Office Visit [facility] [address] [place] [address] Sima Trejo MD 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) (Primary Dx) 01/09/2025 Social Work [facility] at [address] [place] [address] Jo Helms, BACKUP ENGINEER 01/09/2025 Orders Only [facility] at [address] [place] [address] Sima Trejo MD 01/09/2025 Travel 01/09/2025 Orders Only [facility] [address] [place] [address] Sima Trejo MD 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); History of non-Hodgkin's lymphoma; Weakness; Atrial fibrillation, chronic (CMS/HCC) 12/21/2024 Refill [facility] [place] [address] [place] [address] Sima Trejo MD 12/12/2024 11:30 AM EDT Infusion [facility] [address] [place] [address] 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) (Primary Dx) 12/12/2024 11:15 AM EDT Office Visit [facility] [place] [address] [place] [address] Sima Trejo MD 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) (Primary Dx) 12/12/2024 Orders Only [facility] at [facility] [address] [place] [address] Jo Nur, PharmD 12/12/2024 Travel 12/12/2024 Orders Only [facility] at [facility] [address] [place] [address] Sima Trejo MD 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); History of non-Hodgkin's lymphoma; Tongue mass; Lung nodule 11/22/2024 Orders Only [facility] at [facility] [address] [place] [address] Sima Trejo MD 11/22/2024 Telephone [facility] [place] [address] [place] [address] Sima Trejo MD Insomnia 11/14/2024 8:30 AM EDT Infusion [facility] [address] [place] [address] 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) (Primary Dx); Atrial fibrillation, chronic (CMS/HCC) 11/14/2024 Travel 11/14/2024 Orders Only [facility] [address] [place] [address] Sima Trejo MD 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) 11/09/2024 Orders Only [facility] [address] [place] [address] Jo Nur, PharmD 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) (Primary Dx) 11/08/2024 Telephone [facility] [address] [place] [address] Sima Trejo MD New Tx Questions 11/07/2024 2:15 PM EDT Office Visit [facility] [address] [place] [address] Sima Trejo MD 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) (Primary Dx) 11/07/2024 Orders Only [facility] [address] [place] [address] Sima Trejo MD 11/07/2024 Travel 11/07/2024 Orders Only [facility] [address] [place] [address] Sima Trejo MD History of non-Hodgkin's lymphoma [...] st Contact Info) Description 02/06/2025 Orders Only [facility] [place] [address] [place] [address] Sima Trejo MD [address] [address] 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 ([facility]/HCC) 02/06/2025 10:30 AM EDT Office Visit [facility] [place] [address] [place] [address] 02/06/2025 11:30 AM EDT Office Visit [facility] [place] [address] [place] [address] Sima Trejo MD [address] [place] [address] 02/06/2025 12:00 PM EDT Infusion [facility] [place] [address] [place] [address] Health Maintenance Due Date Last Done Comments [facility]-Bone Density Scan 1945 [facility]-Medicare Annual Wellness (AWV) 1945 [facility]-Infant/Child/Adol SDOH Screenings 1945 [facility]-Obesity Intervention 08/18/1949 [facility]- SDOH Screenings 08/18/1961 [facility]-Adult SDOH Screenings 08/18/1961 [facility]-Zoster Vaccines (1 of 2) 01/18/2017 01/17/2019, 11/23/2016 [facility]-RSV Vaccine: 60+ Years or (1 - 1-dose 75+ series) 08/18/2018 [id number] Vaccine (2024- season) 2024 03/16/2023, 01/08/2021, 07/19/2020, Additional history [...] (HAM) NONREACTIVE NONREACTIVE 01/09/2025 1:19 PM EDT [facility] External Hepatitis B Surface Antigen (HBSAg) NONREACTIVE NONREACTIVE 01/09/2025 1:19 PM EDT [facility] External Hepatitis B Core IgM (HBCM) NONREACTIVE NONREACTIVE 01/09/2025 1:19 PM EDT [facility] External Hepatitis C Antibody (HCV Ab) NONREACTIVE NONREACTIVE 01/09/2025 1:19 PM EDT [facility] Comment: Antibodies to HCV were not detected; does not exclude the possibility of exposure to HCV. Blood Venous blood specimen / Unknown 01/09/2025 10:50 AM EDT 01/09/2025 11:30 AM EDT us Sima Trejo MD LAB BLOOD ORDERABLES Final Re sult [facility] [address] [place] [address], * (ABNORMAL) Manual Differential (01/09/2025 10:50 AM EDT) Only the most recent of2 resultswithin the time period is included. External Band Neutrophil% 1.0 0.0 - 7.0 % 01/09/2025 11:55 AM EDT [facility] External Atypical Lymph% 0 0 - 1 % 01/09/2025 11:55 AM EDT [facility] External Metamyelocyte % 0 0 - 1 % 01/09/2025 11:55 AM EDT [facility] External Myelocyte % 0 0 - 1 % 01/09/2025 11:55 AM EDT [facility] External Promyelocyte% 0 0 % 01/09/2025 11:55 AM EDT [facility] External Blast% 0 0 % 11:55 AM EDT [facility] External Nucleated RBC%-Manual 0 0 - 1 /100{WBC} 01/09/2025 11:55 AM EDT [facility] External Smudge Cells 2(A) 0 /100{WBC} 01/09/2025 11:55 AM EDT [facility] External Platelet Morphology NORMAL 01/09/2025 11:55 AM EDT [facility] External Polychromasia SLIGHT(A) 01/09/2025 11:55 AM EDT [facility] External Ovalocytes SLIGHT(A) 01/09/2025 11:55 AM EDT [facility] 01/09/2025 10:5 0 AM EDT 01/09/2025 11:16 AM EDT us Sima Trejo MD LAB BLOOD ORDERABLES Final Re sult [facility] [address] [place] [address], * (ABNORMAL) Prothrombin Time/INR (01/09/2025 10:50 AM EDT) Only the most recent of2 resultswithin the time period is included. External Prothrombin Time (PT) 18.2(H) 9.0 - 11.0 SECONDS 01/09/2025 11:44 AM EDT [facility] External INR - Internormal Ratio 1.9(L) 2.0 - 3.0 01/09/2025 11:44 AM EDT [facility] Comment: INR OF 2.0 TO 3.0 [...] sult [facility] [address] [place] [address], * (ABNORMAL) CBC and differential (01/09/2025 10:50 AM EDT) Only the most recent of3 resultswithin the time period is included. External WBC 6.8 3.8 - 10.8 10*3/uL 01/09/2025 11:55 AM EDT [facility] External Red Blood Cell (RBC) 3.61(L) 3.80 - 5.20 10*6/uL 01/09/2025 11:55 AM EDT [facility] External Hemoglobin 11.0(L) 12.0 - 16.0 g/dL 01/09/2025 11:55 AM EDT [facility] External Hematocrit 33.1(L) 35.0 - 47.0 % 01/09/2025 11:55 AM EDT [facility] External MCV 92 80 - 100 fL 01/09/2025 11:55 AM EDT [facility] External MCH 31 26 - 35 pg 01/09/2025 11:55 AM EDT [facility] External MCHC 33 32 - 36 g/dL 01/09/2025 11:55 AM EDT [facility] External RDW 17.4(H) 11.0 - 15.0 % 01/09/2025 11:55 AM EDT [facility] External Mean Platelet Volume 7.3 6.2 - 10.5 fL 01/09/2025 11:55 AM EDT [facility] External Platelet Count (Plt) 123(L) 150 - 400 10*3/uL 01/09/2025 11:55 AM EDT [facility] External Neutrophil# 2.7 1.6 - 8.4 10*3/uL 01/09/2025 11:55 AM EDT [facility] External Lymphocyte# 3.5 0.4 - 5.1 10*3/uL 01/09/2025 11:55 AM EDT [facility] External Absolute Monocyte (Abs Irion) 0.3 0.0 - 1.2 10*3/uL 01/09/2025 11:55 AM EDT [facility] External Eosinophils# 0.2 0.0 - 0.8 10*3/uL 01/09/2025 11:55 AM EDT [facility] External Baso# 0.0 0.0 - 0.3 10*3/uL 01/09/2025 11:55 AM EDT [facility] External Neutrophils % 39.0(L) 42.0 - 78.0 % 01/09/2025 11:55 AM EDT [facility] External Lymphocyte % 52.0(H) 11.0 - 47.0 % 01/09/2025 11:55 AM EDT [facility] External Monocyte % 5.0 0.0 - 11.0 % 01/09/2025 11:55 AM EDT [facility] External Eosinophil% 3.0 0.0 - 7.0 % 01/09/2025 11:55 AM EDT [facility] External Basophil % 0.0 0.0 - 3.0 % 01/09/2025 11:55 AM EDT [facility] External Nucleated RBC%-Auto 0.2 0.0 - 0.9 % 01/09/2025 11:55 AM EDT [facility] External Nucleated RBC Absolute 0.01 Not Estab. 10*3/uL 01/09/2025 11:55 AM EDT [facility] Blood Venous blood specimen / Unknown 01/09/2025 10:50 AM EDT 01/09/2025 11:16 AM EDT us Sima Trejo MD LAB BLOOD ORDERABLES Final Re sult [facility] [place] [address], * Lactate Dehydrogenase, Plasma (01/09/2025 10:50 AM EDT) Only the most recent of3 resultswithin the time period is included. External LDH Lactate Dehydrogenase 157 135 - 233 U/L 01/09/2025 12:04 PM EDT [facility] Blood Venous blood specimen / Unknown 01/09/2025 10:50 AM EDT 01/09/2025 11:30 AM EDT us Sima Trejo MD LAB BLOOD ORDERABLES Final Re sult [facility] [address] [place] [address], * (ABNORMAL) Comprehensive metabolic panel (01/09/2025 10:50 AM EDT) Only the most recent of3 resultswithin the time period is included. Pathologist [facility] External Glucose 128(H) 74 - 100 mg/dL 01/09/2025 11:44 AM EDT [facility] External BUN 14 6 - 20 mg/dL 01/09/2025 11:44 AM EDT [facility] External Creatinine Blood 1.41(H) 0.50 - 0.95 mg/dL 01/09/2025 11:44 AM EDT [facility] External BUN/Creat Ratio 10 10 - 20 (calc) 01/09/2025 11:44 AM EDT [facility] External Sodium 135(L) 136 - 145 mmol/L 01/09/2025 11:44 AM EDT [facility] External Potassium 4.1 3.4 - 5.0 mmol/L 01/09/2025 11:44 AM EDT [facility] External Chloride 101 98 - 107 mmol/L 01/09/2025 11:44 AM EDT [facility] External Carbon Dioxide (CO2) 22 22 - 31 mmol/L 01/09/2025 11:44 AM EDT [facility] External Anion Gap (AG) 12 7 - 25 (calc) 01/09/2025 11:44 AM EDT [facility] External Calcium 9.0 8.6 - 10.2 mg/dL 01/09/2025 11:44 AM EDT [facility] External Total Protein 6.1(L) 6.4 - 8.3 g/dL 01/09/2025 11:44 AM EDT [facility] External Albumin 4.0 3.5 - 5.2 g/dL 01/09/2025 11:44 AM EDT [facility] External Globulin 2.1 1.5 - 4.5 025 11:44 AM EDT [facility] External Albumin/Globulin Ratio 1.9 1.1 - 2.5 (calc) 01/09/2025 11:44 AM EDT [facility] External Bilirubin Total 0.6 0.1 - 1.0 mg/dL 01/09/2025 11:44 AM EDT [facility] Comment:NOTE: New reference range. External Alkaline Phosphatase 78 30 - 121 U/L 01/09/2025 11:44 AM EDT [facility] External AST (SGOT) 19 0 - 32 U/L 01/09/2025 11:44 AM EDT [facility] External ALT (SGPT) 13 0 - 33 U/L 01/09/2025 11:44 AM EDT [facility] External Estimated GFR 37(A) >=60 01/09/2025 11:44 AM EDT [facility] Comment: NOTE New calculation for GFR (CKD-EPI 2020) is formulated without race adjustment factors at the recommendation of the National [employer] Foundation and [place] [employer]. This calculation has not been validated in women. For pediatric patients refer to https://www.kidney.org/professionals/KDOQI/gfr_calculatorPed Blood Venous blood specimen / Unknown 01/09/2025 10:50 AM EDT 01/09/2025 11:16 AM EDT us Sima Trejo MD LAB BLOOD ORDERABLES Final Re sult [facility] [place] [id number], * (ABNORMAL) Uric Acid, Plasma (12/12/2024 10:21 AM EDT) Only the most recent of2 resultswithin the time period is included. External Uric Acid 5.9(H) 2.4 - 5.7 mg/dL 12/12/2024 11:10 AM EDT [facility] Comment: Reference ranges are based on population norms and do not necessarily correlate with treatment targets. In patients with an established diagnosis of gout undergoing Urate Lowering Therapy (ULT), the 2012 [place] [employer] Guidelines for Management of Gout recommend a target uric acid level of < 6 mg/dL in all patients, or lower in certain circumstances. Arthritis Care and Research Vol 64 No 2012 [place] [employer] Blood Venous blood specimen / Unknown 12/12/2024 10:21 AM EDT 12/12/2024 10:42 AM EDT us Sima Trejo MD LAB BLOOD ORDERABLES Final Re sult [facility] [address] [place] [address], from Last 3 Months Insurance MEDICARE Care Teams Distribution Superintendent Relationship Specialty Start Date End Date Oren Pressley MD [address] [place] [address] PCP - General Internal Medicine 02/09/23 Sima Trejo MD [address] [phone] Medical Oncologist Hematology and Oncology 08/02/23
--- OUTSIDE RECORDS SUMMARY | 2025-01-30 08:24 | XMS_ITS | Data Portability ---
Author Organization [facility] Address [address] [place] [address] Care Team Providers Care Health Researcher Name Role Phone COSTA, LESA Hematology/Oncology [phone] ADDISON GARSIA JR General Surgeon KYLAH FLEMING Primary Care Provider Assessment Encounter Date Assessment Date Assessment LastModified by Organization Details LastModified Time 06/14/2019 06/14/2019 1. Recurrent atrial fibrillation 2. Amiodarone intolerance-tremor 3. CHADsVASc 3 chronic Coumadin 4. Hyponatremia-mild 5. Hypertension 6. CLL-recent progressive adenopathy treated with Imbruvica ( NOAC's contraindicated ) 7. Renal insufficiency Not available 06/14/2019 15:41:04 02/22/2023 02/22/2023 SURGERY DATE: 02/22/2023 PREOPERATIVE DIAGNOSES: 1. Tonsillar hypertrophy. 2. Tongue base neoplasm. POSTOPERATIVE DIAGNOSES: 1. Tonsillar hypertrophy. 2. Tongue base neoplasm. PROCEDURE: 1. Right tonsillectomy. 2. Microscopic/endosc opic direct laryngoscopy with biopsy. ANESTHESIA: General endotracheal. ESTIMATED BLOOD LOSS: Minimal. COMPLICATIONS: None. FINDINGS: There were grossly no pathology noted. The tongue base mucosa was completely normal on inspection and palpation. I biopsied the right tongue base. There was somewhat enlarged firm right tonsil with tonsil stones. SURGEON: Mack Torrez MD INDICATIONS: This patient is a 77-year-old female with an incidental finding on a CT scan at an outside institution that mentions a tongue base neoplasm. On exam including endoscopy in the office, I saw no pathology other than her right tonsil was hypertrophic as there was no tonsil on the left, which had previously been involved with lymphoma. It was felt that the radiologist maybe seeing asymmetry due to the tonsil asymmetry and the exam under anesthesia with biopsy of the tongue base and removal of the right tonsil will be indicated. Risks and complications were discussed and consent was obtained. OPERATIVE NOTE: After obtaining informed consent, the patient was taken to the operating room and placed on the table in supine position. After induction of general endotracheal anesthesia, the shoulder roll was placed and the table was rotated 90 degrees. An anterior commissure laryngoscope was used to examine the larynx and hypopharynx. All the international representative areas were examined and there were no physical exam abnormalities present. This was after I had palpated the base of tongue with my finger and felt no pathology. The laryngoscope was then placed on suspension and I injected an area of the right tongue base with lidocaine with epinephrine and subsequently performed biopsies with cupped forceps using endoscopic visualization. Hemostasis was achieved with Afrin-soaked pledgets. Attention was then turned to the tonsil on the right. The McIvor mouth retractor was placed on suspension. The tonsil was then somewhat enlarged and firm and there was a tonsil stone present. The tonsils were removed from the tonsillar fossa by dissecting it along the capsule with a Bovie. Hemostasis was achieved with cautery. She tolerated the procedure well without complications. She will go home on Percocet and follow up with me in 1 month. cc: SANDI Singer MD [id number] Not available 02/23/2023 11:52:36 Plan of Treatment Reminders Order Date Submit Date Provider Last Modified By Organization Details Last Modified Time Details Appointments None recorded. Lab None recorded. Referral None recorded. Procedures None recorded. Surgeries None recorded. Imaging electrocard iogram 2019 020 [email or web address] [facility], [address] [place] [address] , [facility], [place], [address], 0 16:11:53 Medication Orders None recorded. Patient TargetsNo targets recorded. Patient Instructions Encounter Date Encounter Id Patient Instructions Last Modified By Organization Details Last Modified Time 06/14/2019 [id number] patient has developed recurrent atrial fibrillation. Metoprolol increased to 25 mg daily. She has tended to develop bradycardia on higher doses of beta blockers while in normal sinus rhythm. Echo EF normal. No history of underlying coronary artery disease. We'll add flecainide 50 mg twice a day. Schedule cardioversion for this week. . Patient will need an ischemic study to allow continuance of flecainide. She was advised to call me if she should develop any problems leading up to cardioversion.drea ent also today expressed interest in consideration to the Watan. She watched a video and will be considering this. Not available 06/14/2019 15:43:24 08/22/2019 [id number] body mass index: care instructions [email or web address] Not available 08/22/2019 11:33:06 high blood pressure: care instructions [email or web address] Not available 08/22/2019 11:33:05 I will follow-up with her in 6 months with an EKG. Thank you for allowing us to participate in the care of your patient. If we can be of any further assistance please do not hesitate to contact us. Yasmany Nieto MD, FACP, FACC, [facility] [phone] [email or web address] Not available 08/22/2019 11:33:04 Reason for Referral None Reported. Results Created Date Observation Date Name Description Value Unit Range Abnormal Flag Note LastModifiedBy Organization Detail LastModifiedTime 07/02/19 21 07/01/2020 PT/IN R prothrombin time 39.8 secon ds 9.0-11 .2 high Not Available [facility] [address] [facility], [place], [address], 07/01/2020 14:48:11 07/02/19 21 07/01/2020 PT/IN R INR 4.1 2.0-3. 0 critical high RESUL TS RECHE CKED. MELE CATES TS SEPULVEDA D TO AND ACCUR ATELY READ BACK BY: RACHELLE SULLIVAN ERT ON: 07/01 AT: 14:48 BY: CK INR OF 2.0 TO 3.0 RECOM MARY D FOR: PROPH YLAXI S AND TREAT MENT OF VENOU S THROM BOSIS TREAT MENT OF PULMO NARY EMBOL ISM PREVE NTION OF SYSTE PATRICIO EMBOL ISM TISSU E HEART VALVE S, VALVU LAR HEART DISEA SE ACUTE MYOCA RDIAL INFAR CTION , ATRIA L FIBRI LLATI ON INR OF 2.5 TO 3.5 RECOM MARY D FOR: RECUR RENT SYSTE PATRICIO EMBOL ISM MECHA NICAL PROST HETIC VALVE S Not Available [facility] [address] [place] [address], [phone], 07/01/2020 14:48:11 12/03/19 21 12/02/2020 COMP. METAB OLIC PANEL glucose 101 mg/dL 74-100 high Not Available [facility] [address] [place] [address], [address], 12/02/2020 14:39:20 12/03/19 21 12/02/2020 COMP. METAB OLIC PANEL blood urea nitrogen 15 mg/dL 6-20 normal Not Available [facility] [address] [place] [address], [address], 12/02/2020 14:39:20 12/03/19 21 12/02/2020 COMP. METAB OLIC PANEL creatinine 1.37 mg/dL 0.50-0 .95 high Not Available [facility] [address] [place] [address], [address], 12/02/2020 14:39:20 12/03/19 21 12/02/2020 COMP. METAB OLIC PANEL BUN/creatini ne ratio 11 (calc ) 10-20 normal Not Available [facility] [address] [place] [address], [address], 12/02/2020 14:39:20 12/03/19 21 12/02/2020 COMP. METAB OLIC PANEL sodium 133 mmol/ L 136-14 5 low Not Available [facility] [address] [place] [address], [address], 12/02/2020 14:39:20 12/03/19 21 12/02/2020 COMP. METAB OLIC PANEL potassium 4.4 mmol/ L 3.4-5. 0 normal Not Available [facility] [address] [place] [address], [address], 12/02/2020 14:39:20 12/03/19 21 12/02/2020 COMP. METAB OLIC PANEL chloride 96 mmol/ L 98-107 low Not Available [facility] [address] [place] [address], [address], 12/02/2020 14:39:20 12/03/19 21 12/02/2020 COMP. METAB OLIC PANEL carbon dioxide 22 mmol/ L 22-31 normal Not Available [facility] [address] [place] [address], [address], 12/02/2020 14:39:20 12/03/19 21 12/02/2020 COMP. METAB OLIC PANEL anion gap 15 (calc ) 7-25 normal Not Available [facility] [address] [place] [address], [address], 12/02/2020 14:39:20 12/03/19 21 12/02/2020 COMP. METAB OLIC PANEL calcium 9.2 mg/dL 8.6-10 .2 normal Not Available [facility] [address] [place] [address], [address], 12/02/2020 14:39:20 12/03/19 21 12/02/2020 COMP. METAB OLIC PANEL total protein 7.0 g/dL 6.4-8. 3 normal Not Available [facility] [address] [place] [address], [address], 12/02/2020 14:39:20 12/03/19 21 12/02/2020 COMP. METAB OLIC PANEL albumin 4.2 g/dL 3.5-5. 2 normal Not Available [facility] [address] [place] [address], [address], 12/02/2020 14:39:20 12/03/19 21 12/02/2020 COMP. METAB OLIC PANEL globulin 2.8 g/dL_ (calc ) 1.5-4. 5 normal Not Available [facility] [address] [place] [address], [address], 12/02/2020 14:39:20 12/03/19 21 12/02/2020 COMP. METAB OLIC PANEL albumin/glob ulin ratio 1.5 (calc ) 1.1-2. 5 normal Not Available [facility] [address] [place] [address], [address], 12/02/2020 14:39:20 12/03/19 21 12/02/2020 COMP. METAB OLIC PANEL bilirubin, total 0.6 mg/dL 0.1-1. 2 normal Not Available [facility] [address] [place] [address], [address], 12/02/2020 14:39:20 12/03/19 21 12/02/2020 COMP. METAB OLIC PANEL alkaline phosphatase 59 U/L 35-106 normal Not Available [facility] [address] [place] [address], [address], 12/02/2020 14:39:20 12/03/19 21 12/02/2020 COMP. METAB OLIC PANEL AST 20 U/L 0-32 normal Not Available [facility] [address] [place] [address], [address], 12/02/2020 14:39:20 12/03/19 21 12/02/2020 COMP. METAB OLIC PANEL ALT 13 U/L 0-33 normal Not Available [facility] [address] [place] [address], [address], 12/02/2020 14:39:20 12/03/19 21 12/02/2020 COMP. METAB OLIC PANEL GFR 43 >= 60 abnormal Not Available [facility] [address] [place] [address], [address], 12/02/2020 14:39:20 12/03/19 21 12/02/2020 COMP. METAB OLIC PANEL GFR non- 37 >= 60 abnormal NOT E Chron ic [...] pedia tric patie nts refer to Lina Campoverde y Found ation [email or web address] :[email or web address] rg/pr ofess ional s/KDO QI/gf r_cal culat orPed Not Available [facility] [address] [place] [address], [address], 12/02/2020 14:39:20 12/03/19 21 12/02/2020 LDH LDH 184 U/L 135-23 3 normal Not Available [facility] [address] [place] [address], [address], 12/02/2020 14:26:02 12/03/19 21 12/02/2020 COMPL ETE BLOOD COUNT white blood cells 8.0 K/uL 3.8-10 .8 normal Not Available [facility] [address] [place] [address], [address], 12/02/2020 13:31:25 12/03/19 21 12/02/2020 COMPL ETE BLOOD COUNT red blood cells 3.74 M/uL 3.80-5 .20 low Not Available [facility] [address] [place] [address], [address], 12/02/2020 13:31:25 12/03/19 21 12/02/2020 COMPL ETE BLOOD COUNT hemoglobin 11.1 g/dL 12.0-1 6.0 low Not Available [facility] [address] [place] [address], [address], 12/02/2020 13:31:25 12/03/19 21 12/02/2020 COMPL ETE BLOOD COUNT hematocrit 33.5 % 35.0-4 7.0 low Not Available [facility] [address] [place], [address], 12/02/2020 13:31:25 12/03/19 21 12/02/2020 COMPL ETE BLOOD COUNT MCV 90 fL 80-100 normal Not Available [facility] [address] [place] [address], [address], 12/02/2020 13:31:25 12/03/19 21 12/02/2020 COMPL ETE BLOOD COUNT MCH 30 pg 26-35 normal Not Available [facility] [address] [place] [address], [address], 12/02/2020 13:31:25 12/03/19 21 12/02/2020 COMPL ETE BLOOD COUNT MCHC 33 g/dL 32-36 normal Not Available [facility] [address] [place] [address], [address], 12/02/2020 13:31:25 12/03/19 21 12/02/2020 COMPL ETE BLOOD COUNT RDW 15.4 % 11.0-1 5.0 high Not Available [facility] [address] [place] [address], [address], 12/02/2020 13:31:25 12/03/19 21 12/02/2020 COMPL ETE BLOOD COUNT MPV 8.8 fL 6.2-10 .5 normal Not Available [facility] [address] [place] [address], [address], 12/02/2020 13:31:25 12/03/19 21 12/02/2020 COMPL ETE BLOOD COUNT platelet count 162 K/uL 130-40 0 normal Not Available [facility] [address] [place] [address], [address], 12/02/2020 13:31:25 12/03/19 21 12/02/2020 COMPL ETE BLOOD COUNT neutrophil,a bsolute 5.1 K/uL 1.6-8. 4 normal Not Available [facility] [address] [place] [address], [address], 12/02/2020 13:31:25 12/03/19 21 12/02/2020 COMPL ETE BLOOD COUNT lymphocyte,a bsolute 2.0 K/uL 0.4-5. 1 normal Not Available [facility] [address] [place] [address], [address], 12/02/2020 13:31:25 12/03/19 21 12/02/2020 COMPL ETE BLOOD COUNT monocyte,abs olute 0.8 K/uL 0.0-1. 2 normal Not Available [facility] [address] [place] [address], [address], 12/02/2020 13:31:25 12/03/19 21 12/02/2020 COMPL ETE BLOOD COUNT eosinophil,a bsolute 0.1 K/uL 0.0-0. 8 normal Not Available [facility] [address] [place] [address], [address], 12/02/2020 13:31:25 12/03/19 21 12/02/2020 COMPL ETE BLOOD COUNT basophil,abs olute 0.1 K/uL 0.0-0. 3 normal Not Available [facility] [address] [place] [address], [address], 12/02/2020 13:31:25 12/03/19 21 12/02/2020 COMPL ETE BLOOD COUNT % neutrophils 62.9 % 42.0-7 8.0 normal Not Available [facility] [address] [place] [address], [address], 12/02/2020 13:31:25 12/03/19 21 12/02/2020 COMPL ETE BLOOD COUNT % lymphocytes 25.1 % 11.0-4 7.0 normal Not Available [facility] [address] [place] [address], [address], 12/02/2020 13:31:25 12/03/19 21 12/02/2020 COMPL ETE BLOOD COUNT % monocytes 10.2 % 0.0-11 .0 normal Not Available [facility] [address] [place] [address], [address], 12/02/2020 13:31:25 12/03/19 21 12/02/2020 COMPL ETE BLOOD COUNT % eosinophils 0.9 % 0.0-7. 0 normal Not Available [facility] [address] [place] [address], [address], 12/02/2020 13:31:25 12/03/19 21 12/02/2020 COMPL ETE BLOOD COUNT % basophils 0.9 % 0.0-3. 0 normal Not Available [facility] [address] [place] [address], [address], 12/02/2020 13:31:25 12/03/19 21 12/02/2020 COMPL ETE BLOOD COUNT nucleated red cells 0.1 % 0.0-0. 9 normal Not Available [facility] [address] [place] [address], [address], 12/02/2020 13:31:25 12/03/19 21 12/02/2020 COMPL ETE BLOOD COUNT nucleated RBCs, absolute 0.01 K/uL not estab. normal Not Available [facility] [address] [place] [address], [address], 12/02/2020 13:31:25 03/31/20 21 03/31/2021 COMP. METAB OLIC PANEL glucose 113 mg/dL 74-100 high Not Available [facility] [address] [place] [address], [address], 03/31/2021 13:54:59 03/31/20 21 03/31/2021 COMP. METAB OLIC PANEL blood urea nitrogen 41 mg/dL 6-20 high Not Available [facility] [address] [place] [address], [address], 03/31/2021 13:54:59 03/31/20 21 03/31/2021 COMP. METAB OLIC PANEL creatinine 1.91 mg/dL 0.50-0 .95 high Not Available [facility] [address] [place] [address], [address], 03/31/2021 13:54:59 03/31/20 21 03/31/2021 COMP. METAB OLIC PANEL BUN/creatini ne ratio 21 (calc ) 10-20 high Not Available [facility] [address] [place] [address], [address], 03/31/2021 13:54:59 03/31/20 21 03/31/2021 COMP. METAB OLIC PANEL sodium 136 mmol/ L 136-14 5 normal Not Available [facility] [address] [place] [address], [address], 03/31/2021 13:54:59 03/31/20 21 03/31/2021 COMP. METAB OLIC PANEL potassium 4.9 mmol/ L 3.4-5. 0 normal Not Available [facility] [address] [place] [address], [address], 03/31/2021 13:54:59 03/31/20 21 03/31/2021 COMP. METAB OLIC PANEL chloride 99 mmol/ L 98-107 normal Not Available [facility] [address] [place] [address], [address], 03/31/2021 13:54:59 03/31/20 21 03/31/2021 COMP. METAB OLIC PANEL carbon dioxide 26 mmol/ L 22-31 normal Not Available [facility] [address] [place] [address], [address], 03/31/2021 13:54:59 03/31/20 21 03/31/2021 COMP. METAB OLIC PANEL anion gap 11 (calc ) 7-25 normal Not Available [facility] [address] [place] [address], [address], 03/31/2021 13:54:59 03/31/20 21 03/31/2021 COMP. METAB OLIC PANEL calcium 9.3 mg/dL 8.6-10 .2 normal Not Available [facility] [address] [place] [address], [address], 03/31/2021 13:54:59 03/31/20 21 03/31/2021 COMP. METAB OLIC PANEL total protein 6.7 g/dL 6.4-8. 3 normal Not Available [facility] [address] [place] [address], [address], 03/31/2021 13:54:59 03/31/20 21 03/31/2021 COMP. METAB OLIC PANEL albumin 4.4 g/dL 3.5-5. 2 normal Not Available [facility] [address] [place] [address], [address], 03/31/2021 13:54:59 03/31/20 21 03/31/2021 COMP. METAB OLIC PANEL globulin 2.3 g/dL_ (calc ) 1.5-4. 5 normal Not Available [facility] [address] [place] [address], [address], 03/31/2021 13:54:59 03/31/20 21 03/31/2021 COMP. METAB OLIC PANEL albumin/glob ulin ratio 1.9 (calc ) 1.1-2. 5 normal Not Available [facility] [address] [place] [address], [address], 03/31/2021 13:54:59 03/31/20 21 03/31/2021 COMP. METAB OLIC PANEL bilirubin, total 0.4 mg/dL 0.1-1. 2 normal Not Available [facility] [address] [place] [address], [address], 03/31/2021 13:54:59 03/31/20 21 03/31/2021 COMP. METAB OLIC PANEL alkaline phosphatase 54 U/L 30-121 normal Not Available [facility] [address] [place], [address], 03/31/2021 13:54:59 03/31/20 21 03/31/2021 COMP. METAB OLIC PANEL AST 15 U/L 0-32 normal Not Available [facility] [address] [place] [address], [address], 03/31/2021 13:54:59 03/31/20 21 03/31/2021 COMP. METAB OLIC PANEL ALT 12 U/L 0-33 normal Not Available [facility] [address] [place], [address], 03/31/2021 13:54:59 03/31/20 21 03/31/2021 COMP. METAB OLIC PANEL GFR 29 >= 60 abnormal Not Available [facility] [address] [place], [address], 03/31/2021 13:54:59 03/31/20 21 03/31/2021 COMP. METAB OLIC PANEL GFR non- 25 >= 60 abnormal NOT E Chron ic kidne y disea se is defin ed as kidne y damag e for more than 3 month s or a GFR less than 60 mL/mi n/1.7 3 m2 for great er than 3 month s. This calcu latio n has not been valid ated in pregn ant women . For pedia tric patie nts refer to Nat[employer] n[employer] Found ation https ://ww w.kid jake.o rg/pr ofess ional s/KDO QI/gf r_cal culat orPed Not Available [facility] [address] [place], [address], 03/31/2021 13:54:59 03/31/20 21 03/31/2021 LDH LDH 177 U/L 135-23 3 normal Not Available [facility] [address] [place], [address], 03/31/2021 13:54:26 03/31/20 21 03/31/2021 COMPL ETE BLOOD COUNT white blood cells 8.0 K/uL 3.8-10 .8 normal Not Available [facility] [address] [place] [address], [address], 03/31/2021 13:27:07 03/31/20 21 03/31/2021 COMPL ETE BLOOD COUNT red blood cells 4.07 M/uL 3.80-5 .20 normal Not Available [facility] [address] [place] [address], [address], 03/31/2021 13:27:07 03/31/20 21 03/31/2021 COMPL ETE BLOOD COUNT hemoglobin 12.1 g/dL 12.0-1 6.0 normal Not Available [facility] [address] [place] [address], [address], 03/31/2021 13:27:07 03/31/20 21 03/31/2021 COMPL ETE BLOOD COUNT hematocrit 36.2 % 35.0-4 7.0 normal Not Available [facility] [address] [place] [address], [address], 03/31/2021 13:27:07 03/31/20 21 03/31/2021 COMPL ETE BLOOD COUNT MCV 89 fL 80-100 normal Not Available [facility] [address] [place] [address], [address], 03/31/2021 13:27:07 03/31/20 21 03/31/2021 COMPL ETE BLOOD COUNT MCH 30 pg 26-35 normal Not Available [facility] [address] [place] [address], [address], 03/31/2021 13:27:07 03/31/20 21 03/31/2021 COMPL ETE BLOOD COUNT MCHC 33 g/dL 32-36 normal Not Available [facility] [address] [place] [address], [address], 03/31/2021 13:27:07 03/31/20 21 03/31/2021 COMPL ETE BLOOD COUNT RDW 17.5 % 11.0-1 5.0 high Not Available [facility] [address] [place] [address], [address], 03/31/2021 13:27:07 03/31/20 21 03/31/2021 COMPL ETE BLOOD COUNT MPV 8.7 fL 6.2-10 .5 normal Not Available [facility] [address] [place] [address], [address], 03/31/2021 13:27:07 03/31/20 21 03/31/2021 COMPL ETE BLOOD COUNT platelet count 148 K/uL 130-40 0 normal Not Available [facility] [address] [place] [address], [address], 03/31/2021 13:27:07 03/31/20 21 03/31/2021 COMPL ETE BLOOD COUNT neutrophil,a bsolute 4.6 K/uL 1.6-8. 4 normal Not Available [facility] [address] [place] [address], [address], 03/31/2021 13:27:07 03/31/20 21 03/31/2021 COMPL ETE BLOOD COUNT lymphocyte,a bsolute 2.6 K/uL 0.4-5. 1 normal Not Available [facility] [address] [place] [address], [address], 03/31/2021 13:27:07 03/31/20 21 03/31/2021 COMPL ETE BLOOD COUNT monocyte,abs olute 0.6 K/uL 0.0-1. 2 normal Not Available [facility] [address] [place] [address], [address], 03/31/2021 13:27:07 03/31/20 21 03/31/2021 COMPL ETE BLOOD COUNT eosinophil,a bsolute 0.1 K/uL 0.0-0. 8 normal Not Available [facility] [address] [place] [address], [address], 03/31/2021 13:27:07 03/31/20 21 03/31/2021 COMPL ETE BLOOD COUNT basophil,abs olute 0.1 K/uL 0.0-0. 3 normal Not Available [facility] [address] [place] [address], [address], 03/31/2021 13:27:07 03/31/20 21 03/31/2021 COMPL ETE BLOOD COUNT % neutrophils 57.9 % 42.0-7 8.0 normal Not Available [facility] [address] [place] [address], [address], 03/31/2021 13:27:07 03/31/20 21 03/31/2021 COMPL ETE BLOOD COUNT % lymphocytes 32.4 % 11.0-4 7.0 normal Not Available [facility] [address] [place] [address], [address], 03/31/2021 13:27:07 03/31/20 21 03/31/2021 COMPL ETE BLOOD COUNT % monocytes 8.0 % 0.0-11 .0 normal Not Available [facility] [address] [place] [address], [address], 03/31/2021 13:27:07 03/31/20 21 03/31/2021 COMPL ETE BLOOD COUNT % eosinophils 0.8 % 0.0-7. 0 normal Not Available [facility] [address] [place] [address], [address], 03/31/2021 13:27:07 03/31/20 21 03/31/2021 COMPL ETE BLOOD COUNT % basophils 0.9 % 0.0-3. 0 normal Not Available [facility] [address] [place] [address], [address], 03/31/2021 13:27:07 03/31/20 21 03/31/2021 COMPL ETE BLOOD COUNT nucleated red cells 0.0 % 0.0-0. 9 normal Not Available [facility] [address] [place] [address], [address], 03/31/2021 13:27:07 03/31/20 21 03/31/2021 COMPL ETE BLOOD COUNT nucleated RBCs, absolute 0.00 K/uL not estab. normal Not Available [facility] [address] [place] [address], [address], 03/31/2021 13:27:07 06/02/19 22 06/02/2021 LDH LDH 173 U/L 135-23 3 normal Not Available [facility] [address] [place] [address], [address], 06/02/2021 13:12:48 06/02/19 22 06/02/2021 COMP. METAB OLIC PANEL glucose 119 mg/dL 74-100 high Not Available [facility] [address] [place] [address], [address], 06/02/2021 13:11:46 06/02/19 22 06/02/2021 COMP. METAB OLIC PANEL blood urea nitrogen 27 mg/dL 6-20 high Not Available [facility] [address] [place] [address], [address], 06/02/2021 13:11:46 06/02/19 22 06/02/2021 COMP. METAB OLIC PANEL creatinine 1.62 mg/dL 0.50-0 .95 high Not Available [facility] [address] [place] [address], [address], 06/02/2021 13:11:46 06/02/19 22 06/02/2021 COMP. METAB OLIC PANEL BUN/creatini ne ratio 17 (calc ) 10-20 normal Not Available [facility] [address] [place] [address], [address], 06/02/2021 13:11:46 06/02/19 22 06/02/2021 COMP. METAB OLIC PANEL sodium 142 mmol/ L 136-14 5 normal Not Available [facility] [address] [place] [address], [address], 06/02/2021 13:11:46 06/02/19 22 06/02/2021 COMP. METAB OLIC PANEL potassium 4.3 mmol/ L 3.4-5. 0 normal Not Available [facility] [address] [place] [address], [address], 06/02/2021 13:11:46 06/02/19 22 06/02/2021 COMP. METAB OLIC PANEL chloride 103 mmol/ L 98-107 normal Not Available [facility] [address] [place] [address], [address], 06/02/2021 13:11:46 06/02/19 22 06/02/2021 COMP. METAB OLIC PANEL carbon dioxide 24 mmol/ L 22-31 normal Not Available [facility] [address] [place] [address], [address], 06/02/2021 13:11:46 06/02/19 22 06/02/2021 COMP. METAB OLIC PANEL anion gap 15 (calc ) 7-25 normal Not Available [facility] [address] [place] [address], [address], 06/02/2021 13:11:46 06/02/19 22 06/02/2021 COMP. METAB OLIC PANEL calcium 9.3 mg/dL 8.6-10 .2 normal Not Available [facility] [address] [place] [address], [address], 06/02/2021 13:11:46 06/02/19 22 06/02/2021 COMP. METAB OLIC PANEL total protein 6.4 g/dL 6.4-8. 3 normal Not Available [facility] [address] [place] [address], [address], 06/02/2021 13:11:46 06/02/19 22 06/02/2021 COMP. METAB OLIC PANEL albumin 4.4 g/dL 3.5-5. 2 normal Not Available [facility] [address] [place] [address], [address], 06/02/2021 13:11:46 06/02/19 22 06/02/2021 COMP. METAB OLIC PANEL globulin 2.0 g/dL_ (calc ) 1.5-4. 5 normal Not Available [facility] [address] [place] [address], [address], 06/02/2021 13:11:46 06/02/19 22 06/02/2021 COMP. METAB OLIC PANEL albumin/glob ulin ratio 2.2 (calc ) 1.1-2. 5 normal Not Available [facility] [address] [place] [address], [address], 06/02/2021 13:11:46 06/02/19 22 06/02/2021 COMP. METAB OLIC PANEL bilirubin, total 0.3 mg/dL 0.1-1. 2 normal Not Available [facility] [address] [place] [address], [address], 06/02/2021 13:11:46 06/02/19 22 06/02/2021 COMP. METAB OLIC PANEL alkaline phosphatase 82 U/L 30-121 normal Not Available [facility] [address] [place] [address], [address], 06/02/2021 13:11:46 06/02/19 22 06/02/2021 COMP. METAB OLIC PANEL AST 17 U/L 0-32 normal Not Available [facility] [address] [place] [address], [address], 06/02/2021 13:11:46 06/02/19 22 06/02/2021 COMP. METAB OLIC PANEL ALT 17 U/L 0-33 normal Not Available [facility] [address] [place] [address], [address], 06/02/2021 13:11:46 06/02/19 22 06/02/2021 COMP. METAB OLIC PANEL GFR 35 >= 60 abnormal Not Available [facility] [address] [place] [address], [address], 06/02/2021 13:11:46 06/02/19 22 06/02/2021 COMP. METAB OLIC PANEL GFR non- 30 >= 60 abnormal NOT E Chron ic [...] pedia tric patie nts refer to Lina Campoverde y Found ation [email or web address] :[email or web address] rg/pr ofess ional s/KDO QI/gf r_cal culat orPed Not Available [facility] [address] [place] [address], [address], 06/02/2021 13:11:46 06/02/19 22 06/02/2021 COMPL ETE BLOOD COUNT white blood cells 7.1 K/uL 3.8-10 .8 normal Not Available [facility] [address] [place] [address], [address], 06/02/2021 12:53:47 06/02/19 22 06/02/2021 COMPL ETE BLOOD COUNT red blood cells 4.41 M/uL 3.80-5 .20 normal Not Available [facility] [address] [place] [address], [address], 06/02/2021 12:53:47 06/02/19 22 06/02/2021 COMPL ETE BLOOD COUNT hemoglobin 13.6 g/dL 12.0-1 6.0 normal Not Available [facility] [address] [place] [address], [address], 06/02/2021 12:53:47 06/02/19 22 06/02/2021 COMPL ETE BLOOD COUNT hematocrit 40.9 % 35.0-4 7.0 normal Not Available [facility] [address] [place] [address], [address], 06/02/2021 12:53:47 06/02/19 22 06/02/2021 COMPL ETE BLOOD COUNT MCV 93 fL 80-100 normal Not Available [facility] [address] [place] [address], [address], 06/02/2021 12:53:47 06/02/19 22 06/02/2021 COMPL ETE BLOOD COUNT MCH 31 pg 26-35 normal Not Available [facility] [address] [place] [address], [address], 06/02/2021 12:53:47 06/02/19 22 06/02/2021 COMPL ETE BLOOD COUNT MCHC 33 g/dL 32-36 normal Not Available [facility] [address] [place] [address], [address], 06/02/2021 12:53:47 06/02/19 22 06/02/2021 COMPL ETE BLOOD COUNT RDW 14.6 % 11.0-1 5.0 normal Not Available [facility] [address] [place] [address], [address], 06/02/2021 12:53:47 06/02/19 22 06/02/2021 COMPL ETE BLOOD COUNT MPV 7.3 fL 6.2-10 .5 normal Not Available [facility] [address] [place] [address], [address], 06/02/2021 12:53:47 06/02/19 22 06/02/2021 COMPL ETE BLOOD COUNT platelet count 198 K/uL 130-40 0 normal Not Available [facility] [address] [place] [address], [address], 06/02/2021 12:53:47 06/02/19 22 06/02/2021 COMPL ETE BLOOD COUNT neutrophil,a bsolute 4.1 K/uL 1.6-8. 4 normal Not Available [facility] [address] [place] [address], [address], 06/02/2021 12:53:47 06/02/19 22 06/02/2021 COMPL ETE BLOOD COUNT lymphocyte,a bsolute 2.1 K/uL 0.4-5. 1 normal Not Available [facility] [address] [place] [address], [address], 06/02/2021 12:53:47 06/02/19 22 06/02/2021 COMPL ETE BLOOD COUNT monocyte,abs olute 0.7 K/uL 0.0-1. 2 normal Not Available [facility] [address] [place] [address], [address], 06/02/2021 12:53:47 06/02/19 22 06/02/2021 COMPL ETE BLOOD COUNT eosinophil,a bsolute 0.1 K/uL 0.0-0. 8 normal Not Available [facility] [address] [place] [address], [address], 06/02/2021 12:53:47 06/02/19 22 06/02/2021 COMPL ETE BLOOD COUNT basophil,abs olute 0.1 K/uL 0.0-0. 3 normal Not Available [facility] [address] [place] [address], [address], 06/02/2021 12:53:47 06/02/19 22 06/02/2021 COMPL ETE BLOOD COUNT % neutrophils 58.0 % 42.0-7 8.0 normal Not Available [facility] [address] [place] [address], [address], 06/02/2021 12:53:47 06/02/19 22 06/02/2021 COMPL ETE BLOOD COUNT % lymphocytes 30.1 % 11.0-4 7.0 normal Not Available [facility] [address] [place] [address], [address], 06/02/2021 12:53:47 06/02/19 22 06/02/2021 COMPL ETE BLOOD COUNT % monocytes 9.4 % 0.0-11 .0 normal Not Available [facility] [address] [place] [address], [address], 06/02/2021 12:53:47 06/02/19 22 06/02/2021 COMPL ETE BLOOD COUNT % eosinophils 1.5 % 0.0-7. 0 normal Not Available [facility] [address] [place] [address], [address], 06/02/2021 12:53:47 06/02/19 22 06/02/2021 COMPL ETE BLOOD COUNT % basophils 1.0 % 0.0-3. 0 normal Not Available [facility] [address] [place] [address], [address], 06/02/2021 12:53:47 06/02/19 22 06/02/2021 COMPL ETE BLOOD COUNT nucleated red cells 0.1 % 0.0-0. 9 normal Not Available [facility] [address] [place] [address], [address], 06/02/2021 12:53:47 06/02/19 22 06/02/2021 COMPL ETE BLOOD COUNT nucleated RBCs, absolute 0.01 K/uL not estab. normal Not Available [facility] [address] [place] [address], [address], 06/02/2021 12:53:47 08/05/19 22 08/04/2021 LDH LDH 187 U/L 135-23 3 normal Not Available [facility] [address] [place] [address], [address], 08/04/2021 14:51:41 08/05/19 22 08/04/2021 COMP. METAB OLIC PANEL glucose 99 mg/dL 74-100 normal Not Available [facility] [address] [place] [address], [address], 08/04/2021 14:32:05 08/05/19 22 08/04/2021 COMP. METAB OLIC PANEL blood urea nitrogen 23 mg/dL 6-20 high Not Available [facility] [address] [place] [address], [address], 08/04/2021 14:32:05 08/05/19 22 08/04/2021 COMP. METAB OLIC PANEL creatinine 1.69 mg/dL 0.50-0 .95 high Not Available [facility] [address] [place] [address], [address], 08/04/2021 14:32:05 08/05/19 22 08/04/2021 COMP. METAB OLIC PANEL BUN/creatini ne ratio 14 (calc ) 10-20 normal Not Available [facility] [address] [place] [address], [address], 08/04/2021 14:32:05 08/05/19 22 08/04/2021 COMP. METAB OLIC PANEL sodium 139 mmol/ L 136-14 5 normal Not Available [facility] [address] [place] [address], [address], 08/04/2021 14:32:05 08/05/19 22 08/04/2021 COMP. METAB OLIC PANEL potassium 4.1 mmol/ L 3.4-5. 0 normal Not Available [facility] [address] [place] [address], [address], 08/04/2021 14:32:05 08/05/19 22 08/04/2021 COMP. METAB OLIC PANEL chloride 105 mmol/ L 98-107 normal Not Available [facility] [address] [place] [address], [address], 08/04/2021 14:32:05 08/05/19 22 08/04/2021 COMP. METAB OLIC PANEL carbon dioxide 20 mmol/ L 22-31 low Not Available [facility] [address] [place] [address], [address], 08/04/2021 14:32:05 08/05/19 22 08/04/2021 COMP. METAB OLIC PANEL anion gap 14 (calc ) 7-25 normal Not Available [facility] [address] [place] [address], [address], 08/04/2021 14:32:05 08/05/19 22 08/04/2021 COMP. METAB OLIC PANEL calcium 9.0 mg/dL 8.6-10 .2 normal Not Available [facility] [address] [place] [address], [address], 08/04/2021 14:32:05 08/05/19 22 08/04/2021 COMP. METAB OLIC PANEL total protein 6.4 g/dL 6.4-8. 3 normal Not Available [facility] [address] [place] [address], [address], 08/04/2021 14:32:05 08/05/19 22 08/04/2021 COMP. METAB OLIC PANEL albumin 3.9 g/dL 3.5-5. 2 normal Not Available [facility] [address] [place] [address], [address], 08/04/2021 14:32:05 08/05/19 22 08/04/2021 COMP. METAB OLIC PANEL globulin 2.5 g/dL_ (calc ) 1.5-4. 5 normal Not Available [facility] [address] [place] [address], [address], 08/04/2021 14:32:05 08/05/19 22 08/04/2021 COMP. METAB OLIC PANEL albumin/glob ulin ratio 1.6 (calc ) 1.1-2. 5 normal Not Available [facility] [address] [place] [address], [address], 08/04/2021 14:32:05 08/05/19 22 08/04/2021 COMP. METAB OLIC PANEL bilirubin, total 0.3 mg/dL 0.1-1. 2 normal Not Available [facility] [address] [place] [address], [address], 08/04/2021 14:32:05 08/05/19 22 08/04/2021 COMP. METAB OLIC PANEL alkaline phosphatase 69 U/L 30-121 normal Not Available [facility] [address] [place] [address], [address], 08/04/2021 14:32:05 08/05/19 22 08/04/2021 COMP. METAB OLIC PANEL AST 11 U/L 0-32 normal Not Available [facility] [address] [place] [address], [address], 08/04/2021 14:32:05 08/05/19 22 08/04/2021 COMP. METAB OLIC PANEL ALT 13 U/L 0-33 normal Not Available [facility] [address] [place] [address], [address], 08/04/2021 14:32:05 08/05/19 22 08/04/2021 COMP. METAB OLIC PANEL GFR 33 >= 60 abnormal Not Available [facility] [address] [place] [address], [address], 08/04/2021 14:32:05 08/05/19 22 08/04/2021 COMP. METAB [...] For pedia tric patie nts refer to Karlaio nal Kidne y Found ation https :[email or web address] rg/pr ofess ional s/KDO QI/gf r_cal culat orPed Not Available [facility] [address] [place] [address], [address], 08/04/2021 14:32:05 08/05/19 22 08/04/2021 COMPL ETE BLOOD COUNT white blood cells 6.0 K/uL 3.8-10 .8 normal Not Available [facility] [address] [place] [address], [address], 08/04/2021 13:14:55 08/05/19 22 08/04/2021 COMPL ETE BLOOD COUNT red blood cells 3.89 M/uL 3.80-5 .20 normal Not Available [facility] [address] [place] [address], [address], 08/04/2021 13:14:55 08/05/19 22 08/04/2021 COMPL ETE BLOOD COUNT hemoglobin 11.9 g/dL 12.0-1 6.0 low Not Available [facility] [address] [place] [address], [address], 08/04/2021 13:14:55 08/05/19 22 08/04/2021 COMPL ETE BLOOD COUNT hematocrit 36.0 % 35.0-4 7.0 normal Not Available [facility] [address] [place] [address], [address], 08/04/2021 13:14:55 08/05/19 22 08/04/2021 COMPL ETE BLOOD COUNT MCV 93 fL 80-100 normal Not Available [facility] [address] [place] [address], [address], 08/04/2021 13:14:55 08/05/19 22 08/04/2021 COMPL ETE BLOOD COUNT MCH 31 pg 26-35 normal Not Available [facility] [address] [place] [address], [address], 08/04/2021 13:14:55 08/05/19 22 08/04/2021 COMPL ETE BLOOD COUNT MCHC 33 g/dL 32-36 normal Not Available [facility] [address] [place] [address], [address], 08/04/2021 13:14:55 08/05/19 22 08/04/2021 COMPL ETE BLOOD COUNT RDW 15.0 % 11.0-1 5.0 normal Not Available [facility] [address] [place] [address], [address], 08/04/2021 13:14:55 08/05/19 22 08/04/2021 COMPL ETE BLOOD COUNT MPV 7.1 fL 6.2-10 .5 normal Not Available [facility] [address] [place] [address], [address], 08/04/2021 13:14:55 08/05/19 22 08/04/2021 COMPL ETE BLOOD COUNT platelet count 131 K/uL 130-40 0 normal Not Available [facility] [address] [place] [address], [address], 08/04/2021 13:14:55 08/05/19 22 08/04/2021 COMPL ETE BLOOD COUNT neutrophil,a bsolute 4.0 K/uL 1.6-8. 4 normal Not Available [facility] [address] [place] [address], [address], 08/04/2021 13:14:55 08/05/19 22 08/04/2021 COMPL ETE BLOOD COUNT lymphocyte,a bsolute 1.3 K/uL 0.4-5. 1 normal Not Available [facility] [address] [place] [address], [address], 08/04/2021 13:14:55 08/05/19 22 08/04/2021 COMPL ETE BLOOD COUNT monocyte,abs olute 0.4 K/uL 0.0-1. 2 normal Not Available [facility] [address] [place] [address], [address], 08/04/2021 13:14:55 08/05/19 22 08/04/2021 COMPL ETE BLOOD COUNT eosinophil,a bsolute 0.1 K/uL 0.0-0. 8 normal Not Available [facility] [address] [place] [address], [address], 08/04/2021 13:14:55 08/05/19 22 08/04/2021 COMPL ETE BLOOD COUNT basophil,abs olute 0.0 K/uL 0.0-0. 3 normal Not Available [facility] [address] [place] [address], [address], 08/04/2021 13:14:55 08/05/19 22 08/04/2021 COMPL ETE BLOOD COUNT % neutrophils 68.0 % 42.0-7 8.0 normal Not Available [facility] [address] [place] [address], [address], 08/04/2021 13:14:55 08/05/19 22 08/04/2021 COMPL ETE BLOOD COUNT % lymphocytes 21.8 % 11.0-4 7.0 normal Not Available [facility] [address] [place] [address], [address], 08/04/2021 13:14:55 08/05/19 22 08/04/2021 COMPL ETE BLOOD COUNT % monocytes 7.3 % 0.0-11 .0 normal Not Available [facility] [address] [place] [address], [address], 08/04/2021 13:14:55 08/05/19 22 08/04/2021 COMPL ETE BLOOD COUNT % eosinophils 2.1 % 0.0-7. 0 normal Not Available [facility] [address] [place] [address], [address], 08/04/2021 13:14:55 08/05/19 22 08/04/2021 COMPL ETE BLOOD COUNT % basophils 0.8 % 0.0-3. 0 normal Not Available [facility] [address] [place] [address], [address], 08/04/2021 13:14:55 08/05/19 22 08/04/2021 COMPL ETE BLOOD COUNT nucleated red cells 0.1 % 0.0-0. 9 normal Not Available [facility] [address] [place], [address], 08/04/2021 13:14:55 08/05/19 22 08/04/2021 COMPL ETE BLOOD COUNT nucleated RBCs, absolute 0.01 K/uL not estab. normal Not Available [facility] [address] [place], [address], 08/04/2021 13:14:55 02/18/20 22 02/17/2022 URIC ACID uric acid 7.5 mg/dL 2.4-5. 7 high Refer ence range s are based on [facility] emergency department norms and do not neces leesa slater late with treat ment targe ts. In patie nts with an estab lishe d diagn osis of gout under going Urate Lower ing Thera py (ULT) , the 2011 Michelle can [facility] Rheum atolo gy James hanna s for Manag ement of Gout recom mend a targe t uric acid level of < 6 mg/dL in all patie nts, or lower in certa in circu mstan my. [facility] Vol 64 No 10, 2011 Michelle can [facility] of Rheum atolo gy ----- ----- ----- ----- ----- ----- ----- ----- ----- ----- ----- ---- Not Available [facility] [address] [place], [address], 02/17/2022 13:26:54 02/18/20 22 02/17/2022 COMP. METAB OLIC PANEL glucose 98 mg/dL 74-100 normal Not Available [facility] [address] [place], [address], 02/17/2022 13:26:53 02/18/20 22 02/17/2022 COMP. METAB OLIC PANEL blood urea nitrogen 21 mg/dL 6-20 high Not Available [facility] [address] [place] [address], [address], 02/17/2022 13:26:53 02/18/20 22 02/17/2022 COMP. METAB OLIC PANEL creatinine 1.34 mg/dL 0.50-0 .95 high Not Available [facility] [address] [place] [address], [address], 02/17/2022 13:26:53 02/18/20 22 02/17/2022 COMP. METAB OLIC PANEL BUN/creatini ne ratio 16 (calc ) 10-20 normal Not Available [facility] [address] [place] [address], [address], 02/17/2022 13:26:53 02/18/20 22 02/17/2022 COMP. METAB OLIC PANEL sodium 138 mmol/ L 136-14 5 normal Not Available [facility] [address] [place] [address], [address], 02/17/2022 13:26:53 02/18/20 22 02/17/2022 COMP. METAB OLIC PANEL potassium 4.0 mmol/ L 3.4-5. 0 normal Not Available [facility] [address] [place] [address], [address], 02/17/2022 13:26:53 02/18/20 22 02/17/2022 COMP. METAB OLIC PANEL chloride 103 mmol/ L 98-107 normal Not Available [facility] [address] [place] [address], [address], 02/17/2022 13:26:53 02/18/20 22 02/17/2022 COMP. METAB OLIC PANEL carbon dioxide 24 mmol/ L 22-31 normal Not Available [facility] [address] [place] [address], [address], 02/17/2022 13:26:53 02/18/20 22 02/17/2022 COMP. METAB OLIC PANEL anion gap 11 (calc ) 7-25 normal Not Available [facility] [address] [place] [address], [address], 02/17/2022 13:26:53 02/18/20 22 02/17/2022 COMP. METAB OLIC PANEL calcium 9.1 mg/dL 8.6-10 .2 normal Not Available [facility] [address] [place] [address], [address], 02/17/2022 13:26:53 02/18/20 22 02/17/2022 COMP. METAB OLIC PANEL total protein 6.9 g/dL 6.4-8. 3 normal Not Available [facility] [address] [place] [address], [address], 02/17/2022 13:26:53 02/18/20 22 02/17/2022 COMP. METAB OLIC PANEL albumin 4.2 g/dL 3.5-5. 2 normal Not Available [facility] [address] [place] [address], [address], 02/17/2022 13:26:53 02/18/20 22 02/17/2022 COMP. METAB OLIC PANEL globulin 2.7 g/dL_ (calc ) 1.5-4. 5 normal Not Available [facility] [address] [place] [address], [address], 02/17/2022 13:26:53 02/18/20 22 02/17/2022 COMP. METAB OLIC PANEL albumin/glob ulin ratio 1.6 (calc ) 1.1-2. 5 normal Not Available [facility] [address] [place] [address], [address], 02/17/2022 13:26:53 02/18/20 22 02/17/2022 COMP. METAB OLIC PANEL bilirubin, total 0.4 mg/dL 0.1-1. 2 normal Not Available [facility] [address] [place], [address], 02/17/2022 13:26:53 02/18/20 22 02/17/2022 COMP. METAB OLIC PANEL alkaline phosphatase 79 U/L 30-121 normal Not Available [facility] [address] [place], [address], 02/17/2022 13:26:53 02/18/20 22 02/17/2022 COMP. METAB OLIC PANEL AST 17 U/L 0-32 normal Not Available [facility] [address] [place], [address], 02/17/2022 13:26:53 02/18/20 22 02/17/2022 COMP. METAB OLIC PANEL ALT 15 U/L 0-33 normal Not Available [facility] [address] [place], [address], 02/17/2022 13:26:53 02/18/20 22 02/17/2022 COMP. METAB OLIC PANEL GFR 40 >= 60 abnormal NOT E New calcu latio n for GFR (CKD- EPI 2020) is formu lated witho ut race adjus tment facto rs at the recom menda tion of the Lina Campoverde y Seth galindo and Michelle puentes [facility] - [place] . This calcu latio n has not been valid ated in pregn ant women . For pedia tric patie nts refer to https ://heike [email or web address] [email or web address] rg/pr lia adorno s/KDO QI/gf r_cal culat orPed Not Available [facility] [address] [place], [address], 02/17/2022 13:26:53 02/18/20 22 02/17/2022 LDH LDH 163 U/L 135-23 3 normal Not Available [facility] [address] [place], [address], 02/17/2022 13:26:21 02/18/20 22 02/17/2022 COMPL ETE BLOOD COUNT white blood cells 6.1 K/uL 3.8-10 .8 normal Not Available [facility] [address] [place] [address], [address], 02/17/2022 12:59:23 02/18/20 22 02/17/2022 COMPL ETE BLOOD COUNT red blood cells 4.03 M/uL 3.80-5 .20 normal Not Available [facility] [address] [place] [address], [address], 02/17/2022 12:59:23 02/18/20 22 02/17/2022 COMPL ETE BLOOD COUNT hemoglobin 12.1 g/dL 12.0-1 6.0 normal Not Available [facility] [address] [place] [address], [address], 02/17/2022 12:59:23 02/18/20 22 02/17/2022 COMPL ETE BLOOD COUNT hematocrit 35.9 % 35.0-4 7.0 normal Not Available [facility] [address] [place] [address], [address], 02/17/2022 12:59:23 02/18/20 22 02/17/2022 COMPL ETE BLOOD COUNT MCV 89 fL 80-100 normal Not Available [facility] [address] [place] [address], [address], 02/17/2022 12:59:23 02/18/20 22 02/17/2022 COMPL ETE BLOOD COUNT MCH 30 pg 26-35 normal Not Available [facility] [address] [place] [address], [address], 02/17/2022 12:59:23 02/18/20 22 02/17/2022 COMPL ETE BLOOD COUNT MCHC 34 g/dL 32-36 normal Not Available [facility] [address] [place] [address], [address], 02/17/2022 12:59:23 02/18/20 22 02/17/2022 COMPL ETE BLOOD COUNT RDW 14.6 % 11.0-1 5.0 normal Not Available [facility] [address] [place] [address], [address], 02/17/2022 12:59:23 02/18/20 22 02/17/2022 COMPL ETE BLOOD COUNT MPV 7.3 fL 6.2-10 .5 normal Not Available [facility] [address] [place] [address], [address], 02/17/2022 12:59:23 02/18/20 22 02/17/2022 COMPL ETE BLOOD COUNT platelet count 180 K/uL 130-40 0 normal Not Available [facility] [address] [place] [address], [address], 02/17/2022 12:59:23 02/18/20 22 02/17/2022 COMPL ETE BLOOD COUNT neutrophil,a bsolute 3.8 K/uL 1.6-8. 4 normal Not Available [facility] [address] [place] [address], [address], 02/17/2022 12:59:23 02/18/20 22 02/17/2022 COMPL ETE BLOOD COUNT lymphocyte,a bsolute 1.6 K/uL 0.4-5. 1 normal Not Available [facility] [address] [place] [address], [address], 02/17/2022 12:59:23 02/18/20 22 02/17/2022 COMPL ETE BLOOD COUNT monocyte,abs olute 0.5 K/uL 0.0-1. 2 normal Not Available [facility] [address] [place] [address], [address], 02/17/2022 12:59:23 02/18/20 22 02/17/2022 COMPL ETE BLOOD COUNT eosinophil,a bsolute 0.1 K/uL 0.0-0. 8 normal Not Available [facility] [address] [place] [address], [address], 02/17/2022 12:59:23 02/18/20 22 02/17/2022 COMPL ETE BLOOD COUNT basophil,abs olute 0.1 K/uL 0.0-0. 3 normal Not Available [facility] [address] [place] [address], [address], 02/17/2022 12:59:23 02/18/20 22 02/17/2022 COMPL ETE BLOOD COUNT % neutrophils 62.4 % 42.0-7 8.0 normal Not Available [facility] [address] [place] [address], [address], 02/17/2022 12:59:23 02/18/20 22 02/17/2022 COMPL ETE BLOOD COUNT % lymphocytes 25.6 % 11.0-4 7.0 normal Not Available [facility] [address] [place] [address], [address], 02/17/2022 12:59:23 02/18/20 22 02/17/2022 COMPL ETE BLOOD COUNT % monocytes 9.0 % 0.0-11 .0 normal Not Available [facility] [address] [place] [address], [address], 02/17/2022 12:59:23 02/18/20 22 02/17/2022 COMPL ETE BLOOD COUNT % eosinophils 2.0 % 0.0-7. 0 normal Not Available [facility] [address] [place] [address], [address], 02/17/2022 12:59:23 02/18/20 22 02/17/2022 COMPL ETE BLOOD COUNT % basophils 1.0 % 0.0-3. 0 normal Not Available [facility] [address] [place] [address], [address], 02/17/2022 12:59:23 02/18/20 22 02/17/2022 COMPL ETE BLOOD COUNT nucleated red cells 0.0 % 0.0-0. 9 normal Not Available [facility] [address] [place], [address], 02/17/2022 12:59:23 02/18/20 22 02/17/2022 COMPL ETE BLOOD COUNT nucleated RBCs, absolute 0.00 K/uL not estab. normal Not Available [facility] [address] [place], [address], 02/17/2022 12:59:23 05/26/19 23 05/26/2022 URIC ACID uric acid 8.9 mg/dL 2.4-5. 7 high Refer ence range s are based on [facility] emergency department norms and do not neces leesa slater late with treat ment targe ts. In patie nts with an estab lishe d diagn osis of gout under going Urate Lower ing Thera py (ULT) , the 2011 Michelle puentes [facility] Guid cyndi s for Manag ement of Gout recom mend a targe t uric acid level of < 6 mg/dL in all patie nts, or lower in certa in circu mstan my. [facility] Vol 64 No 10, 2011 Michelle puentes [facility]um at[facility] ----- ----- ----- ----- ----- ----- ----- ----- ----- ----- ----- ---- Not Available [facility] [address] [place], [address], 05/26/2022 13:54:18 05/26/19 23 05/26/2022 COMP. METAB OLIC PANEL glucose 116 mg/dL 74-100 high Not Available [facility] [address] [place], [address], 05/26/2022 13:54:16 05/26/19 23 05/26/2022 COMP. METAB OLIC PANEL blood urea nitrogen 22 mg/dL 6-20 high Not Available [facility] [address] [place] [address], [address], 05/26/2022 13:54:16 05/26/19 23 05/26/2022 COMP. METAB OLIC PANEL creatinine 1.15 mg/dL 0.50-0 .95 high Not Available [facility] [address] [place] [address], [address], 05/26/2022 13:54:16 05/26/19 23 05/26/2022 COMP. METAB OLIC PANEL BUN/creatini ne ratio 19 (calc ) 10-20 normal Not Available [facility] [address] [place] [address], [address], 05/26/2022 13:54:16 05/26/19 23 05/26/2022 COMP. METAB OLIC PANEL sodium 140 mmol/ L 136-14 5 normal Not Available [facility] [address] [place] [address], [address], 05/26/2022 13:54:16 05/26/19 23 05/26/2022 COMP. METAB OLIC PANEL potassium 4.4 mmol/ L 3.4-5. 0 normal Not Available [facility] [address] [place] [address], [address], 05/26/2022 13:54:16 05/26/19 23 05/26/2022 COMP. METAB OLIC PANEL chloride 104 mmol/ L 98-107 normal Not Available [facility] [address] [place] [address], [address], 05/26/2022 13:54:16 05/26/19 23 05/26/2022 COMP. METAB OLIC PANEL carbon dioxide 25 mmol/ L 22-31 normal Not Available [facility] [address] [place] [address], [address], 05/26/2022 13:54:16 05/26/19 23 05/26/2022 COMP. METAB OLIC PANEL anion gap 11 (calc ) 7-25 normal Not Available [facility] [address] [place] [address], [address], 05/26/2022 13:54:16 05/26/19 23 05/26/2022 COMP. METAB OLIC PANEL calcium 9.5 mg/dL 8.6-10 .2 normal Not Available [facility] [address] [place] [address], [address], 05/26/2022 13:54:16 05/26/19 23 05/26/2022 COMP. METAB OLIC PANEL total protein 7.0 g/dL 6.4-8. 3 normal Not Available [facility] [address] [place] [address], [address], 05/26/2022 13:54:16 05/26/19 23 05/26/2022 COMP. METAB OLIC PANEL albumin 4.3 g/dL 3.5-5. 2 normal Not Available [facility] [address] [place] [address], [address], 05/26/2022 13:54:16 05/26/19 23 05/26/2022 COMP. METAB OLIC PANEL globulin 2.7 g/dL_ (calc ) 1.5-4. 5 normal Not Available [facility] [address] [place] [address], [address], 05/26/2022 13:54:16 05/26/19 23 05/26/2022 COMP. METAB OLIC PANEL albumin/glob ulin ratio 1.6 (calc ) 1.1-2. 5 normal Not Available [facility] [address] [place] [address], [address], 05/26/2022 13:54:16 05/26/19 23 05/26/2022 COMP. METAB OLIC PANEL bilirubin, total 0.4 mg/dL 0.1-1. 2 normal Not Available [facility] [address] [place] [address], [address], 05/26/2022 13:54:16 05/26/19 23 05/26/2022 COMP. METAB OLIC PANEL alkaline phosphatase 71 U/L 30-121 normal Not Available [facility] [address] [place] [address], [address], 05/26/2022 13:54:16 05/26/19 23 05/26/2022 COMP. METAB OLIC PANEL AST 18 U/L 0-32 normal Not Available [facility] [address] [place] [address], [address], 05/26/2022 13:54:16 05/26/19 23 05/26/2022 COMP. METAB OLIC PANEL ALT 15 U/L 0-33 normal Not Available [facility] [address] [place] [address], [address], 05/26/2022 13:54:16 05/26/19 23 05/26/2022 COMP. METAB OLIC PANEL GFR 49 >= 60 abnormal NOT E New calcu latio n for GFR (CKD- EPI 2020) is formu lated witho ut race adjus tment facto rs at the recom menda tion of the Lina puentes [facility] . This calcu latio n has not been valid ated in pregn ant women . For pedia tric patie nts refer to https ://heike joseph.driss rg/deep adorno s/KDO QI/gf r_cal culat orPed Not Available [facility] [address] [place] [address], [address], 05/26/2022 13:54:16 05/26/19 23 05/26/2022 LDH LDH 155 U/L 135-23 3 normal Not Available [facility] [address] [place] [address], [address], 05/26/2022 13:51:16 05/26/19 23 05/26/2022 COMPL ETE BLOOD COUNT white blood cells 5.6 K/uL 3.8-10 .8 normal Not Available [facility] [address] [place] [address], [address], 05/26/2022 13:25:38 05/26/19 23 05/26/2022 COMPL ETE BLOOD COUNT red blood cells 4.06 M/uL 3.80-5 .20 normal Not Available [facility] [address] [place] [address], [address], 05/26/2022 13:25:38 05/26/19 23 05/26/2022 COMPL ETE BLOOD COUNT hemoglobin 12.0 g/dL 12.0-1 6.0 normal Not Available [facility] [address] [place] [address], [address], 05/26/2022 13:25:38 05/26/19 23 05/26/2022 COMPL ETE BLOOD COUNT hematocrit 36.0 % 35.0-4 7.0 normal Not Available [facility] [address] [place] [address], [address], 05/26/2022 13:25:38 05/26/19 23 05/26/2022 COMPL ETE BLOOD COUNT MCV 89 fL 80-100 normal Not Available [facility] [address] [place] [address], [address], 05/26/2022 13:25:38 05/26/19 23 05/26/2022 COMPL ETE BLOOD COUNT MCH 30 pg 26-35 normal Not Available [facility] [address] [place] [address], [address], 05/26/2022 13:25:38 05/26/19 23 05/26/2022 COMPL ETE BLOOD COUNT MCHC 33 g/dL 32-36 normal Not Available [facility] [address] [place] [address], [address], 05/26/2022 13:25:38 05/26/19 23 05/26/2022 COMPL ETE BLOOD COUNT RDW 15.9 % 11.0-1 5.0 high Not Available [facility] [address] [place] [address], [address], 05/26/2022 13:25:38 05/26/19 23 05/26/2022 COMPL ETE BLOOD COUNT MPV 7.5 fL 6.2-10 .5 normal Not Available [facility] [address] [place] [address], [address], 05/26/2022 13:25:38 05/26/19 23 05/26/2022 COMPL ETE BLOOD COUNT platelet count 176 K/uL 130-40 0 normal Not Available [facility] [address] [place] [address], [address], 05/26/2022 13:25:38 05/26/19 23 05/26/2022 COMPL ETE BLOOD COUNT neutrophil,a bsolute 3.3 K/uL 1.6-8. 4 normal Not Available [facility] [address] [place] [address], [address], 05/26/2022 13:25:38 05/26/19 23 05/26/2022 COMPL ETE BLOOD COUNT lymphocyte,a bsolute 1.7 K/uL 0.4-5. 1 normal Not Available [facility] [address] [place] [address], [address], 05/26/2022 13:25:38 05/26/19 23 05/26/2022 COMPL ETE BLOOD COUNT monocyte,abs olute 0.5 K/uL 0.0-1. 2 normal Not Available [facility] [address] [place] [address], [address], 05/26/2022 13:25:38 05/26/19 23 05/26/2022 COMPL ETE BLOOD COUNT eosinophil,a bsolute 0.1 K/uL 0.0-0. 8 normal Not Available [facility] [address] [place] [address], [address], 05/26/2022 13:25:38 05/26/19 23 05/26/2022 COMPL ETE BLOOD COUNT basophil,abs olute 0.0 K/uL 0.0-0. 3 normal Not Available [facility] [address] [place] [address], [address], 05/26/2022 13:25:38 05/26/19 23 05/26/2022 COMPL ETE BLOOD COUNT % neutrophils 59.0 % 42.0-7 8.0 normal Not Available [facility] [address] [place] [address], [address], 05/26/2022 13:25:38 05/26/19 23 05/26/2022 COMPL ETE BLOOD COUNT % lymphocytes 30.6 % 11.0-4 7.0 normal Not Available [facility] [address] [place] [address], [address], 05/26/2022 13:25:38 05/26/19 23 05/26/2022 COMPL ETE BLOOD COUNT % monocytes 8.1 % 0.0-11 .0 normal Not Available [facility] [address] [place] [address], [address], 05/26/2022 13:25:38 05/26/19 23 05/26/2022 COMPL ETE BLOOD COUNT % eosinophils 1.7 % 0.0-7. 0 normal Not Available [facility] [address] [place] [address], [address], 05/26/2022 13:25:38 05/26/19 23 05/26/2022 COMPL ETE BLOOD COUNT % basophils 0.6 % 0.0-3. 0 normal Not Available [facility] [address] [place] [address], [address], 05/26/2022 13:25:38 05/26/19 23 05/26/2022 COMPL ETE BLOOD COUNT nucleated red cells 0.0 % 0.0-0. 9 normal Not Available [facility] [address] [place], [address], 05/26/2022 13:25:38 05/26/19 23 05/26/2022 COMPL ETE BLOOD COUNT nucleated RBCs, absolute 0.00 K/uL not estab. normal Not Available [facility] [address] [place] [address], [address], 05/26/2022 13:25:38 09/02/19 23 09/01/2022 LDH LDH 172 U/L 135-23 3 normal Not Available [facility] [address] [place], [address], 09/01/2022 13:20:15 09/02/19 23 09/01/2022 URIC ACID uric acid 8.4 mg/dL 2.4-5. 7 high Refer ence range s are based on [facility] emergency department norms and do not neces leesa slater late with treat ment targe ts. In patie nts with an estab lishe d diagn osis of gout under going Urate Lower ing Thera py (ULT) , the 2011 Michelle can [facility] James hanna s for Manag ement of Gout recom mend a targe t uric acid level of < 6 mg/dL in all patie nts, or lower in certa in circu mstan my. [facility]is Care and Res[facility] Vol 64 No 10, 2011 Michelle can [facility] Rheum atolo gy ----- ----- ----- ----- ----- ----- ----- ----- ----- ----- ----- ---- Not Available [facility] [address] [place], [address], 09/01/2022 13:03:19 09/02/19 23 09/01/2022 COMP. METAB OLIC PANEL glucose 121 mg/dL 74-100 high Not Available [facility] [address] [place], [address], 09/01/2022 13:03:18 09/02/19 23 09/01/2022 COMP. METAB OLIC PANEL blood urea nitrogen 18 mg/dL 6-20 normal Not Available [facility] [address] [place] [address], [address], 09/01/2022 13:03:18 09/02/19 23 09/01/2022 COMP. METAB OLIC PANEL creatinine 1.32 mg/dL 0.50-0 .95 high Not Available [facility] [address] [place] [address], [address], 09/01/2022 13:03:18 09/02/19 23 09/01/2022 COMP. METAB OLIC PANEL BUN/creatini ne ratio 14 (calc ) 10-20 normal Not Available [facility] [address] [place] [address], [address], 09/01/2022 13:03:18 09/02/19 23 09/01/2022 COMP. METAB OLIC PANEL sodium 137 mmol/ L 136-14 5 normal Not Available [facility] [address] [place] [address], [address], 09/01/2022 13:03:18 09/02/19 23 09/01/2022 COMP. METAB OLIC PANEL potassium 4.1 mmol/ L 3.4-5. 0 normal Not Available [facility] [address] [place] [address], [address], 09/01/2022 13:03:18 09/02/19 23 09/01/2022 COMP. METAB OLIC PANEL chloride 99 mmol/ L 98-107 normal Not Available [facility] [address] [place] [address], [address], 09/01/2022 13:03:18 09/02/19 23 09/01/2022 COMP. METAB OLIC PANEL carbon dioxide 25 mmol/ L 22-31 normal Not Available [facility] [address] [place] [address], [address], 09/01/2022 13:03:18 09/02/19 23 09/01/2022 COMP. METAB OLIC PANEL anion gap 13 (calc ) 7-25 normal Not Available [facility] [address] [place] [address], [address], 09/01/2022 13:03:18 09/02/19 23 09/01/2022 COMP. METAB OLIC PANEL calcium 9.5 mg/dL 8.6-10 .2 normal Not Available [facility] [address] [place] [address], [address], 09/01/2022 13:03:18 09/02/19 23 09/01/2022 COMP. METAB OLIC PANEL total protein 7.3 g/dL 6.4-8. 3 normal Not Available [facility] [address] [place] [address], [address], 09/01/2022 13:03:18 09/02/19 23 09/01/2022 COMP. METAB OLIC PANEL albumin 4.3 g/dL 3.5-5. 2 normal Not Available [facility] [address] [place] [address], [address], 09/01/2022 13:03:18 09/02/19 23 09/01/2022 COMP. METAB OLIC PANEL globulin 3.0 1.5-4. 5 normal Not Available [facility] [address] [place] [address], [address], 09/01/2022 13:03:18 09/02/19 23 09/01/2022 COMP. METAB OLIC PANEL albumin/glob ulin ratio 1.4 (calc ) 1.1-2. 5 normal Not Available [facility] [address] [place] [address], [address], 09/01/2022 13:03:18 09/02/19 23 09/01/2022 COMP. METAB OLIC PANEL bilirubin, total 0.8 mg/dL 0.1-1. 2 normal Not Available [facility] [address] [place], [address], 09/01/2022 13:03:18 09/02/19 23 09/01/2022 COMP. METAB OLIC PANEL alkaline phosphatase 67 U/L 30-121 normal Not Available [facility] [address] [place], [address], 09/01/2022 13:03:18 09/02/19 23 09/01/2022 COMP. METAB OLIC PANEL AST 15 U/L 0-32 normal Not Available [facility] [address] [place] [address], [address], 09/01/2022 13:03:18 09/02/19 23 09/01/2022 COMP. METAB OLIC PANEL ALT 8 U/L 0-33 normal Not Available [facility] [address] [place], [address], 09/01/2022 13:03:18 09/02/19 23 09/01/2022 COMP. METAB OLIC PANEL GFR 41 >= 60 abnormal NOT E New calcu latio n for GFR (CKD- EPI 2020) is formu lated witho ut race adjus tment facto rs at the recom menda tion of the [facility] Campoverde y [facility] . This calcu latio n has not been valid ated in pregn ant women . For pedia tric patie nts refer to https ://heike [email or web address] [email or web address] rg/pr lia alexanderal s/KDO QI/gf r_cal culat orPed Not Available [facility] [address] [place], [address], 09/01/2022 13:03:18 09/02/19 23 09/01/2022 COMPL ETE BLOOD COUNT white blood cells 6.8 10*3/ uL 3.8-10 .8 normal Not Available [facility] [address] [place] [address], [address], 09/01/2022 12:52:25 09/02/19 23 09/01/2022 COMPL ETE BLOOD COUNT red blood cells 4.15 10*6/ uL 3.80-5 .20 normal Not Available [facility] [address] [place] [address], [address], 09/01/2022 12:52:25 09/02/19 23 09/01/2022 COMPL ETE BLOOD COUNT hemoglobin 12.5 g/dL 12.0-1 6.0 normal Not Available [facility] [address] [place] [address], [address], 09/01/2022 12:52:25 09/02/19 23 09/01/2022 COMPL ETE BLOOD COUNT hematocrit 37.0 % 35.0-4 7.0 normal Not Available [facility] [address] [place] [address], [address], 09/01/2022 12:52:25 09/02/19 23 09/01/2022 COMPL ETE BLOOD COUNT MCV 89 fL 80-100 normal Not Available [facility] [address] [place] [address], [address], 09/01/2022 12:52:25 09/02/19 23 09/01/2022 COMPL ETE BLOOD COUNT MCH 30 pg 26-35 normal Not Available [facility] [address] [place] [address], [address], 09/01/2022 12:52:25 09/02/19 23 09/01/2022 COMPL ETE BLOOD COUNT MCHC 34 g/dL 32-36 normal Not Available [facility] [address] [place] [address], [address], 09/01/2022 12:52:25 09/02/19 23 09/01/2022 COMPL ETE BLOOD COUNT RDW 14.1 % 11.0-1 5.0 normal Not Available [facility] [address] [place] [address], [address], 09/01/2022 12:52:25 09/02/19 23 09/01/2022 COMPL ETE BLOOD COUNT MPV 7.5 fL 6.2-10 .5 normal Not Available [facility] [address] [place] [address], [address], 09/01/2022 12:52:25 09/02/19 23 09/01/2022 COMPL ETE BLOOD COUNT platelet count 194 10*3/ uL 130-40 0 normal Not Available [facility] [address] [place] [address], [address], 09/01/2022 12:52:25 09/02/19 23 09/01/2022 COMPL ETE BLOOD COUNT neutrophil,a bsolute 4.0 10*3/ uL 1.6-8. 4 normal Not Available [facility] [address] [place] [address], [address], 09/01/2022 12:52:25 09/02/19 23 09/01/2022 COMPL ETE BLOOD COUNT lymphocyte,a bsolute 2.0 10*3/ uL 0.4-5. 1 normal Not Available [facility] [address] [place] [address], [address], 09/01/2022 12:52:25 09/02/19 23 09/01/2022 COMPL ETE BLOOD COUNT monocyte,abs olute 0.5 10*3/ uL 0.0-1. 2 normal Not Available [facility] [address] [place] [address], [address], 09/01/2022 12:52:25 09/02/19 23 09/01/2022 COMPL ETE BLOOD COUNT eosinophil,a bsolute 0.2 10*3/ uL 0.0-0. 8 normal Not Available [facility] [address] [place] [address], [address], 09/01/2022 12:52:25 09/02/19 09/01/2022 COMPL ETE BLOOD COUNT basophil,abs olute 0.1 10*3/ uL 0.0-0. 3 normal Not Available [facility] [address] [place] [address], [address], 09/01/2022 12:52:25 09/02/19 23 09/01/2022 COMPL ETE BLOOD COUNT % neutrophils 59.2 % 42.0-7 8.0 normal Not Available [facility] [address] [place] [address], [address], 09/01/2022 12:52:25 09/02/19 23 09/01/2022 COMPL ETE BLOOD COUNT % lymphocytes 29.7 % 11.0-4 7.0 normal Not Available [facility] [address] [place] [address], [address], 09/01/2022 12:52:25 09/02/19 23 09/01/2022 COMPL ETE BLOOD COUNT % monocytes 7.7 % 0.0-11 .0 normal Not Available [facility] [address] [place] [address], [address], 09/01/2022 12:52:25 09/02/19 23 09/01/2022 COMPL ETE BLOOD COUNT % eosinophils 2.6 % 0.0-7. 0 normal Not Available [facility] [address] [place] [address], [address], 09/01/2022 12:52:25 09/02/19 23 09/01/2022 COMPL ETE BLOOD COUNT % basophils 0.8 % 0.0-3. 0 normal Not Available [facility] [address] [place] [address], [address], 09/01/2022 12:52:25 09/02/19 23 09/01/2022 COMPL ETE BLOOD COUNT nucleated red cells 0.0 % 0.0-0. 9 normal Not Available [facility] [address] [place] [address], [address], 09/01/2022 12:52:25 09/02/19 23 09/01/2022 COMPL ETE BLOOD COUNT nucleated RBCs, absolute 0.00 10*3/ uL not estab. normal Not Available [facility] [address] [place] [address], [address], 09/01/2022 12:52:25 01/13/20 23 01/12/2023 MANUA L DIFFE RENTI AL % band neutrophils 0.0 % 0.0-7. 0 normal Not Available [facility] [address] [place] [address], [address], 01/12/2023 15:09:33 01/13/20 23 01/12/2023 MANUA L DIFFE RENTI AL % atypical lymphocytes 0 % 0-1 normal Not Available [facility] [address] [place] [address], [address], 01/12/2023 15:09:33 01/13/20 23 01/12/2023 MANUA L DIFFE RENTI AL % metamyelocyt es 0 % 0-1 normal Not Available [facility] [address] [place] [address], [address], 01/12/2023 15:09:33 01/13/20 23 01/12/2023 MANUA L DIFFE RENTI AL % myelocytes 0 % 0-1 normal Not Available [facility] [address] [place] [address], [address], 01/12/2023 15:09:33 01/13/20 23 01/12/2023 MANUA L DIFFE RENTI AL % promyelocyte s 0 % 0 normal Not Available [facility] [address] [place] [address], [address], 01/12/2023 15:09:33 01/13/20 23 01/12/2023 MANUA L DIFFE RENTI AL % blast 0 % 0 normal Not Available [facility] [address] [place] [address], [address], 01/12/2023 15:09:33 01/13/20 23 01/12/2023 MANUA L DIFFE RENTI AL nucleated red cells 0 /100{ WBC} 0-1 normal Not Available [facility] [address] [place] [address], [address], 01/12/2023 15:09:33 01/13/20 23 01/12/2023 MANUA L DIFFE RENTI AL smudge cells 0 /100{ WBC} 0 normal Not Available [facility] [address] [place] [address], [address], 01/12/2023 15:09:33 01/13/20 23 01/12/2023 MANUA L DIFFE RENTI AL platelet morphology NORMAL normal Not Available [facility] [address] [place] [address], [address], 01/12/2023 15:09:33 01/13/20 23 01/12/2023 MANUA L DIFFE RENTI AL hypochromasi a SLIGHT abnormal Not Available [facility] [address] [place] [address], [address], 01/12/2023 15:09:33 01/13/20 23 01/12/2023 MANUA L DIFFE RENTI AL ovalocytes SLIGHT abnormal Not Available [facility] [address] [place] [address], [address], 01/12/2023 15:09:33 01/13/20 23 01/12/2023 COMPL ETE BLOOD COUNT white blood cells 7.6 10*3/ uL 3.8-10 .8 normal RESUL TS RECHE CKED Not Available [facility] [address] [place] [address], [address], 01/12/2023 15:09:31 01/13/20 23 01/12/2023 COMPL ETE BLOOD COUNT red blood cells 4.03 10*6/ uL 3.80-5 .20 normal Not Available [facility] [address] [place] [address], [address], 01/12/2023 15:09:31 01/13/20 23 01/12/2023 COMPL ETE BLOOD COUNT hemoglobin 12.0 g/dL 12.0-1 6.0 normal Not Available [facility] [address] [place] [address], [address], 01/12/2023 15:09:31 01/13/20 23 01/12/2023 COMPL ETE BLOOD COUNT hematocrit 36.2 % 35.0-4 7.0 normal Not Available [facility] [address] [place] [address], [address], 01/12/2023 15:09:31 01/13/20 23 01/12/2023 COMPL ETE BLOOD COUNT MCV 90 fL 80-100 normal Not Available [facility] [address] [place] [address], [address], 01/12/2023 15:09:31 01/13/20 23 01/12/2023 COMPL ETE BLOOD COUNT MCH 30 pg 26-35 normal Not Available [facility] [address] [place] [address], [address], 01/12/2023 15:09:31 01/13/20 23 01/12/2023 COMPL ETE BLOOD COUNT MCHC 33 g/dL 32-36 normal Not Available [facility] [address] [place] [address], [address], 01/12/2023 15:09:31 01/13/20 23 01/12/2023 COMPL ETE BLOOD COUNT RDW 14.8 % 11.0-1 5.0 normal Not Available [facility] [address] [place] [address], [address], 01/12/2023 15:09:31 01/13/20 23 01/12/2023 COMPL ETE BLOOD COUNT MPV 7.7 fL 6.2-10 .5 normal Not Available [facility] [address] [place] [address], [address], 01/12/2023 15:09:31 01/13/20 23 01/12/2023 COMPL ETE BLOOD COUNT platelet count 151 10*3/ uL 130-40 0 normal Not Available [facility] [address] [place] [address], [address], 01/12/2023 15:09:31 01/13/20 23 01/12/2023 COMPL ETE BLOOD COUNT neutrophil,a bsolute 4.0 10*3/ uL 1.6-8. 4 normal Not Available [facility] [address] [place] [address], [address], 01/12/2023 15:09:31 01/13/20 23 01/12/2023 COMPL ETE BLOOD COUNT lymphocyte,a bsolute 3.3 10*3/ uL 0.4-5. 1 normal Not Available [facility] [address] [place] [address], [address], 01/12/2023 15:09:31 01/13/20 23 01/12/2023 COMPL ETE BLOOD COUNT monocyte,abs olute 0.2 10*3/ uL 0.0-1. 2 normal Not Available [facility] [address] [place] [address], [address], 01/12/2023 15:09:31 01/13/20 23 01/12/2023 COMPL ETE BLOOD COUNT eosinophil,a bsolute 0.1 10*3/ uL 0.0-0. 8 normal Not Available [facility] [address] [place] [address], [address], 01/12/2023 15:09:31 01/13/20 23 01/12/2023 COMPL ETE BLOOD COUNT basophil,abs olute 0.0 10*3/ uL 0.0-0. 3 normal Not Available [facility] [address] [place] [address], [address], 01/12/2023 15:09:31 01/13/20 23 01/12/2023 COMPL ETE BLOOD COUNT % neutrophils 52.0 % 42.0-7 8.0 normal Not Available [facility] [address] [place] [address], [address], 01/12/2023 15:09:31 01/13/20 23 01/12/2023 COMPL ETE BLOOD COUNT % lymphocytes 44.0 % 11.0-4 7.0 normal Not Available [facility] [address] [place] [address], [address], 01/12/2023 15:09:31 01/13/20 23 01/12/2023 COMPL ETE BLOOD COUNT % monocytes 3.0 % 0.0-11 .0 normal Not Available [facility] [address] [place] [address], [address], 01/12/2023 15:09:31 01/13/20 23 01/12/2023 COMPL ETE BLOOD COUNT % eosinophils 1.0 % 0.0-7. 0 normal Not Available [facility] [address] [place] [address], [address], 01/12/2023 15:09:31 01/13/20 23 01/12/2023 COMPL ETE BLOOD COUNT % basophils 0.0 % 0.0-3. 0 normal Not Available [facility] [address] [place] [address], [address], 01/12/2023 15:09:31 01/13/20 23 01/12/2023 COMPL ETE BLOOD COUNT nucleated red cells 0.0 % 0.0-0. 9 normal Not Available [facility] [address] [place] [address], [address], 01/12/2023 15:09:31 01/13/20 23 01/12/2023 COMPL ETE BLOOD COUNT nucleated RBCs, absolute 0.00 10*3/ uL not estab. normal Not Available [facility] [address] [place] [address], [address], 01/12/2023 15:09:31 01/13/20 23 01/12/2023 LDH LDH 167 U/L 135-23 3 normal Not Available [facility] [address] [place] [address], [address], 01/12/2023 15:02:55 01/13/20 23 01/12/2023 URIC ACID uric acid 7.5 mg/dL 2.4-5. 7 high Refer ence range s are based on [facility] emergency department norms and do not neces [...] mstan my. Arthr itis Care and Resea [facility] Vol 64 No 10, 2011 Michelle can Colle ge of Rheum atolo gy ----- ----- ----- ----- ----- ----- ----- ----- ----- ----- ----- ---- Not Available [facility] [address] [place] [address], [address], 01/12/2023 15:02:09 01/13/20 23 01/12/2023 COMP. METAB OLIC PANEL glucose 109 mg/dL 74-100 high Not Available [facility] [address] [place] [address], [address], 01/12/2023 15:02:07 01/13/20 23 01/12/2023 COMP. METAB OLIC PANEL blood urea nitrogen 19 mg/dL 6-20 normal Not Available [facility] [address] [place] [address], [address], 01/12/2023 15:02:07 01/13/20 23 01/12/2023 COMP. METAB OLIC PANEL creatinine 1.35 mg/dL 0.50-0 .95 high Not Available [facility] [address] [place] [address], [address], 01/12/2023 15:02:07 01/13/20 23 01/12/2023 COMP. METAB OLIC PANEL BUN/creatini ne ratio 14 (calc ) 10-20 normal Not Available [facility] [address] [place] [address], [address], 01/12/2023 15:02:07 01/13/20 23 01/12/2023 COMP. METAB OLIC PANEL sodium 139 mmol/ L 136-14 5 normal Not Available [facility] [address] [place] [address], [address], 01/12/2023 15:02:07 01/13/20 23 01/12/2023 COMP. METAB OLIC PANEL potassium 4.5 mmol/ L 3.4-5. 0 normal Not Available [facility] [address] [place] [address], [address], 01/12/2023 15:02:07 01/13/20 23 01/12/2023 COMP. METAB OLIC PANEL chloride 104 mmol/ L 98-107 normal Not Available [facility] [address] [place] [address], [address], 01/12/2023 15:02:07 01/13/20 23 01/12/2023 COMP. METAB OLIC PANEL carbon dioxide 24 mmol/ L 22-31 normal Not Available [facility] [address] [place] [address], [address], 01/12/2023 15:02:07 01/13/20 23 01/12/2023 COMP. METAB OLIC PANEL anion gap 11 (calc ) 7-25 normal Not Available [facility] [address] [place] [address], [address], 01/12/2023 15:02:07 01/13/20 23 01/12/2023 COMP. METAB OLIC PANEL calcium 9.1 mg/dL 8.6-10 .2 normal Not Available [address], [address], 01/12/2023 15:02:07 01/13/20 23 01/12/2023 COMP. METAB OLIC PANEL total protein 6.8 g/dL 6.4-8. 3 normal Not Available [facility] [address] [place] [address], [address], 01/12/2023 15:02:07 01/13/20 23 01/12/2023 COMP. METAB OLIC PANEL albumin 4.2 g/dL 3.5-5. 2 normal Not Available [address], [address], 01/12/2023 15:02:07 01/13/20 23 01/12/2023 COMP. METAB OLIC PANEL globulin 2.6 1.5-4. 5 normal Not Available [facility] [address] [place] [address], [address], 01/12/2023 15:02:07 01/13/20 23 01/12/2023 COMP. METAB OLIC PANEL albumin/glob ulin ratio 1.6 (calc ) 1.1-2. 5 normal Not Available [facility] [address] [place] [address], [address], 01/12/2023 15:02:07 01/13/20 23 01/12/2023 COMP. METAB OLIC PANEL bilirubin, total 0.6 mg/dL 0.1-1. 2 normal Not Available [address], [address], 01/12/2023 15:02:07 01/13/20 23 01/12/2023 COMP. METAB OLIC PANEL alkaline phosphatase 63 U/L 30-121 normal Not Available [facility] [address] [place], [address], 01/12/2023 15:02:07 01/13/20 23 01/12/2023 COMP. METAB OLIC PANEL AST 13 U/L 0-32 normal Not Available [facility] [address] [place], [address], 01/12/2023 15:02:07 01/13/20 23 01/12/2023 COMP. METAB OLIC PANEL ALT 10 U/L 0-33 normal Not Available [facility] [address] [place], [address], 01/12/2023 15:02:07 01/13/20 23 01/12/2023 COMP. METAB OLIC PANEL GFR 40 >= 60 abnormal NOT E New calcu latio n for GFR (CKD- EPI 2020) is formu lated witho ut race adjus tment facto rs at the recom menda tion of the [employer] and Ameri deloris Goetze ty of Nephr ology . This calcu latio n has not been valid ated in pregn ant women . For marie metzger nts refer to https ://heike joseph.o shanon/deep adorno s/YARIO QI/gf r_cal culat orPed Not Available [facility] [address] [place], [address], 01/12/2023 15:02:07 02/10/20 23 02/09/2023 MANUA L DIFFE RENTI AL % band neutrophils 0.0 % 0.0-7. 0 normal Not Available [facility] [address] [place], [address], 02/09/2023 14:51:28 02/10/20 23 02/09/2023 MANUA L DIFFE RENTI AL % atypical lymphocytes 4 % 0-1 high Not Available [facility] [address] [place], [address], 02/09/2023 14:51:28 02/10/20 23 02/09/2023 MANUA L DIFFE RENTI AL % metamyelocyt es 0 % 0-1 normal Not Available [facility] [address] [place], [address], 02/09/2023 14:51:28 02/10/20 23 02/09/2023 MANUA L DIFFE RENTI AL % myelocytes 0 % 0-1 normal Not Available [facility] [address] [place] [address], [address], 02/09/2023 14:51:28 02/10/20 23 02/09/2023 MANUA L DIFFE RENTI AL % promyelocyte s 0 % 0 normal Not Available [facility] [address] [place] [address], [address], 02/09/2023 14:51:28 02/10/20 23 02/09/2023 MANUA L DIFFE RENTI AL % blast 0 % 0 normal Not Available [facility] [address] [place] [address], [address], 02/09/2023 14:51:28 02/10/20 23 02/09/2023 MANUA L DIFFE RENTI AL nucleated red cells 0 /100{ WBC} 0-1 normal Not Available [facility] [address] [place] [address], [address], 02/09/2023 14:51:28 02/10/20 23 02/09/2023 MANUA L DIFFE RENTI AL smudge cells 0 /100{ WBC} 0 normal Not Available [facility] [address] [place] [address], [address], 02/09/2023 14:51:28 02/10/20 23 02/09/2023 MANUA L DIFFE RENTI AL platelet morphology NORMAL normal Not Available [facility] [address] [place], [address], 02/09/2023 14:51:28 02/10/20 23 02/09/2023 MAXX SALAZAR AL stomatocytes SLIGHT abnormal Not Available [facility] [address] [place] [address], [address], 02/09/2023 14:51:28 02/10/20 23 02/09/2023 COMPL ETE BLOOD COUNT white blood cells 8.3 10*3/ uL 3.8-10 .8 normal Not Available [facility] [address] [place] [address], [address], 02/09/2023 14:51:26 02/10/20 23 02/09/2023 COMPL ETE BLOOD COUNT red blood cells 4.15 10*6/ uL 3.80-5 .20 normal Not Available [facility] [address] [place] [address], [address], 02/09/2023 14:51:26 02/10/20 23 02/09/2023 COMPL ETE BLOOD COUNT hemoglobin 12.3 g/dL 12.0-1 6.0 normal Not Available [facility] [address] [place] [address], [address], 02/09/2023 14:51:26 02/10/20 23 02/09/2023 COMPL ETE BLOOD COUNT hematocrit 36.5 % 35.0-4 7.0 normal Not Available [facility] [address] [place] [address], [address], 02/09/2023 14:51:26 02/10/20 23 02/09/2023 COMPL ETE BLOOD COUNT MCV 88 fL 80-100 normal Not Available [facility] [address] [place] [address], [address], 02/09/2023 14:51:26 02/10/20 23 02/09/2023 COMPL ETE BLOOD COUNT MCH 30 pg 26-35 normal Not Available [facility] [address] [place] [address], [address], 02/09/2023 14:51:26 02/10/20 23 02/09/2023 COMPL ETE BLOOD COUNT MCHC 34 g/dL 32-36 normal Not Available [facility] [address] [place] [address], [address], 02/09/2023 14:51:26 02/10/20 23 02/09/2023 COMPL ETE BLOOD COUNT RDW 14.5 % 11.0-1 5.0 normal Not Available [facility] [address] [place] [address], [address], 02/09/2023 14:51:26 02/10/2002/09/2023 COMPL ETE BLOOD COUNT MPV 7.6 fL 6.2-10 .5 normal Not Available [facility] [address] [place] [address], [address], 02/09/2023 14:51:26 02/10/20 23 02/09/2023 COMPL ETE BLOOD COUNT platelet count 184 10*3/ uL 150-40 0 normal Not Available [facility] [address] [place] [address], [address], 02/09/2023 14:51:26 02/10/20 23 02/09/2023 COMPL ETE BLOOD COUNT neutrophil,a bsolute 4.2 10*3/ uL 1.6-8. 4 normal Not Available [facility] [address] [place] [address], [address], 02/09/2023 14:51:26 02/10/20 23 02/09/2023 COMPL ETE BLOOD COUNT lymphocyte,a bsolute 2.9 10*3/ uL 0.4-5. 1 normal Not Available [facility] [address] [place] [address], [address], 02/09/2023 14:51:26 02/10/20 23 02/09/2023 COMPL ETE BLOOD COUNT monocyte,abs olute 0.7 10*3/ uL 0.0-1. 2 normal Not Available [facility] [address] [place] [address], [address], 02/09/2023 14:51:26 02/10/20 23 02/09/2023 COMPL ETE BLOOD COUNT eosinophil,a bsolute 0.2 10*3/ uL 0.0-0. 8 normal Not Available [facility] [address] [place] [address], [address], 02/09/2023 14:51:26 02/10/20 23 02/09/2023 COMPL ETE BLOOD COUNT basophil,abs olute 0.0 10*3/ uL 0.0-0. 3 normal Smear revie wed to confi rm cell morph ology . Not Available [facility] [address] [place] [address], [address], 02/09/2023 14:51:26 02/10/20 23 02/09/2023 COMPL ETE BLOOD COUNT % neutrophils 50.0 % 42.0-7 8.0 normal Not Available [facility] [address] [place] [address], [address], 02/09/2023 14:51:26 02/10/20 23 02/09/2023 COMPL ETE BLOOD COUNT % lymphocytes 35.0 % 11.0-4 7.0 normal Not Available [facility] [address] [place] [address], [address], 02/09/2023 14:51:26 02/10/20 23 02/09/2023 COMPL ETE BLOOD COUNT % monocytes 9.0 % 0.0-11 .0 normal Not Available [facility] [address] [place] [address], [address], 02/09/2023 14:51:26 02/10/20 23 02/09/2023 COMPL ETE BLOOD COUNT % eosinophils 2.0 % 0.0-7. 0 normal Not Available [facility] [address] [place] [address] [place], [address], 02/09/2023 14:51:26 02/10/20 23 02/09/2023 COMPL ETE BLOOD COUNT % basophils 0.0 % 0.0-3. 0 normal Not Available [facility] [address] [place] [address], [address], 02/09/2023 14:51:26 02/10/20 23 02/09/2023 COMPL ETE BLOOD COUNT nucleated red cells 0.2 % 0.0-0. 9 normal Not Available [facility] [address] [place] [address], [address], 02/09/2023 14:51:26 02/10/20 23 02/09/2023 COMPL ETE BLOOD COUNT nucleated RBCs, absolute 0.01 10*3/ uL not estab. normal Not Available [facility] [address] [place] [address], [address], 02/09/2023 14:51:26 02/10/20 23 02/09/2023 LDH LDH 165 U/L 135-23 3 normal Not Available [facility] [address] [place] [address], [address], 02/09/2023 14:47:40 02/10/2002/09/2023 URIC ACID uric acid 7.9 mg/dL 2.4-5. 7 high Refer ence range s are based on [facility] emergency department norms and do not neces leesa slater late with treat ment targe ts. In patie nts with an estab lishe d diagn osis of gout under going Urate Lower ing Thera py (ULT) , the 2011 Michelle puentes Colle ge of Rheum atolo gy James hanna s for Manag ement of Gout recom mend a targe t uric acid level of < 6 mg/dL in all patie nts, or lower in certa in circu mstan my. Arthr itis Care and Resea [facility] Vol 64 No 10, 2011 Michelle puentes Colle ge of Rheum atolo gy ----- ----- ----- ----- ----- ----- ----- ----- ----- ----- ----- ---- Not Available [facility] [address] [place] [address], [address], 02/09/2023 14:33:26 02/10/20 23 02/09/2023 COMP. METAB OLIC PANEL glucose 108 mg/dL 74-100 high Not Available [facility] [address] [place] [address], [address], 02/09/2023 14:33:24 02/10/20 23 02/09/2023 COMP. METAB OLIC PANEL blood urea nitrogen 18 mg/dL 6-20 normal Not Available [facility] [address] [place] [address], [address], 02/09/2023 14:33:24 02/10/20 23 02/09/2023 COMP. METAB OLIC PANEL creatinine 1.31 mg/dL 0.50-0 .95 high Not Available [address], [address], 02/09/2023 14:33:24 02/10/20 23 02/09/2023 COMP. METAB OLIC PANEL BUN/creatini ne ratio 14 (calc ) 10-20 normal Not Available [facility] [address] [place] [address], [address], 02/09/2023 14:33:24 02/10/20 23 02/09/2023 COMP. METAB OLIC PANEL sodium 136 mmol/ L 136-14 5 normal Not Available [facility] [address] [place] [address], [address], 02/09/2023 14:33:24 02/10/20 23 02/09/2023 COMP. METAB OLIC PANEL potassium 4.1 mmol/ L 3.4-5. 0 normal Not Available [facility] [address] [place] [address], [address], 02/09/2023 14:33:24 02/10/20 23 02/09/2023 COMP. METAB OLIC PANEL chloride 101 mmol/ L 98-107 normal Not Available [facility] [address] [place] [address], [address], 02/09/2023 14:33:24 02/10/20 23 02/09/2023 COMP. METAB OLIC PANEL carbon dioxide 25 mmol/ L 22-31 normal Not Available [facility] [address] [place] [address], [address], 02/09/2023 14:33:24 02/10/20 23 02/09/2023 COMP. METAB OLIC PANEL anion gap 10 (calc ) 7-25 normal Not Available [facility] [address] [place] [address], [address], 02/09/2023 14:33:24 02/10/20 23 02/09/2023 COMP. METAB OLIC PANEL calcium 9.1 mg/dL 8.6-10 .2 normal Not Available [facility] [address] [place] [address], [address], 02/09/2023 14:33:24 02/10/20 23 02/09/2023 COMP. METAB OLIC PANEL total protein 6.8 g/dL 6.4-8. 3 normal Not Available [facility] [address] [place] [address], [address], 02/09/2023 14:33:24 02/10/20 23 02/09/2023 COMP. METAB OLIC PANEL albumin 4.2 g/dL 3.5-5. 2 normal Not Available [facility] [address] [place] [address], [address], 02/09/2023 14:33:24 02/10/20 23 02/09/2023 COMP. METAB OLIC PANEL globulin 2.6 1.5-4. 5 normal Not Available [facility] [address] [place] [address], [address], 02/09/2023 14:33:24 02/10/20 23 02/09/2023 COMP. METAB OLIC PANEL albumin/glob ulin ratio 1.6 (calc ) 1.1-2. 5 normal Not Available [facility] [address] [place] [address], [address], 02/09/2023 14:33:24 02/10/20 23 02/09/2023 COMP. METAB OLIC PANEL bilirubin, total 0.7 mg/dL 0.1-1. 2 normal Not Available [facility] [address] [place] [address], [address], 02/09/2023 14:33:24 02/10/20 23 02/09/2023 COMP. METAB OLIC PANEL alkaline phosphatase 63 U/L 30-121 normal Not Available [facility] [address] [place] [address], [address], 02/09/2023 14:33:24 02/10/20 23 02/09/2023 COMP. METAB OLIC PANEL AST 14 U/L 0-32 normal Not Available [facility] [address] [place] [address], [address], 02/09/2023 14:33:24 02/10/20 23 02/09/2023 COMP. METAB OLIC PANEL ALT 9 U/L 0-33 normal Not Available [facility] [address] [place] [address], [address], 02/09/2023 14:33:24 02/10/20 23 02/09/2023 COMP. METAB OLIC PANEL GFR 41 >= 60 abnormal NOT E New calcu latio n for GFR (CKD- EPI 2020) is formu lated witho ut race adjus tment facto rs at the recom menda tion of the Lina Campoverde y Found atcatherine and Michelle Goetze of Nephr ology . This calcu latio n has not been valid ated in pregn ant women . For pedia tric patie nts refer to https ://heike [email or web address] rg/pr anderess ional s/KDO QI/gf r_cal culat orPed Not Available [facility] [address] [place], [address], 02/09/2023 14:33:24 02/16/20 23 02/15/2023 PROTH ROMBI N TIME prothrombin time 27.3 secon ds 9.4-11 .0 high Not Available [facility] [address] [place], [address], 02/15/2023 07:29:35 02/16/20 23 02/15/2023 PROTH ROMBI N TIME INR 2.8 2.0-3. 0 normal INR OF 2.0 TO 3.0 RECOM MARY D FOR: PROPH YLAXI S AND TREAT MENT OF VENOU S THROM BOSIS TREAT MENT OF PULMO NARY EMBOL ISM PREVE NTION OF SYSTE PATRICIO EMBOL ISM TISSU E HEART VALVE S, VALVU LAR HEART DISEA SE ACUTE MYOCA RDIAL INFAR CTION , ATRIA L FIBRI LLATI ON INR OF 2.5 TO 3.5 RECOM MARY D FOR: RECUR RENT SYSTE PATRICIO EMBOL ISM MECHA NICAL PROST HETIC VALVE S Not Available [facility] [address] [place], [address], 02/15/2023 07:29:35 02/23/20 23 02/22/2023 PROTH ROMBI N TIME prothrombin time 14.2 secon ds 9.4-11 .0 high Not Available [facility] [address] [place], [address], 02/22/2023 11:10:46 02/23/20 23 02/22/2023 PROTH ROMBI N TIME INR 1.4 2.0-3. 0 low INR OF 2.0 TO 3.0 RECOM MARY D FOR: PROPH YLAXI S AND TREAT MENT OF VENOU S THROM BOSIS TREAT MENT OF PULMO NARY EMBOL ISM PREVE NTION OF SYSTE PATRICIO EMBOL ISM TISSU E HEART VALVE S, VALVU LAR HEART DISEA SE ACUTE MYOCA RDIAL INFAR CTION , ATRIA L FIBRI LLATI ON INR OF 2.5 TO 3.5 RECOM MARY D FOR: RECUR RENT SYSTE PATRICIO EMBOL ISM MECHA NICAL PROST HETIC VALVE S Not Available [facility] [address] [facility], [place], [address], 02/22/2023 11:10:46 02/23/20 23 02/22/2023 SURGI VINH surgical SEE BELOW abnormal Depar tment of Patho logy Surgi vinh Patho logy Repor t NAME: DONTAE IVERSON PATH. :SS-[id number] Copy to: Diagn osis: Right tonsi l and base of tongu e: -Abno rmal CD5 posit shana B cell popul ation detec daniel by flow cytom etry. -Mild ly enlar ged tonsi l with prese rved overa ll archi tectu re (see comme nts). Comme nt from flow cytom etry repor t: The abnor mal B-carol ls are immun ophen otypi lamin angeli tible with B-carol l small lymph ocyti c lymph autumn/c hroni c lymph ocyti c [facility] perico (B-SL L/CLL ). Corre latio n with clini vinh, labor atory and morph ologi c data is recom mary d. If neede d, FISH testi ng (CLL panel ) is avail able. Pleas e conta ct us if furth er testi ng for the sampl e is neede d. Addit ional comme nt: Morph ologi c evide nce of invol vemen t by lymph autumn is minim al. Intac t lymph oid folli cles with intac t benig n appea ring react shana germi nal cente rs are prese nt. In some areas , inter folli cular lymph oid tissu e does demon strat e a relat ively monom orpho us lymph oid popul ation , which is consi stent with the immun ophen otypi c findi ngs sugge stive of B-SLL /CLL. The base of tongu e speci men was entir wilman sent for flow cytom etry, and is not morph ologi lamin exami michael excep t for a touch impri nt slide (see micro scopi c descr iptio n). SOURC E OF SPECI MEN: FLOW CYTOM ETRY , TONGU E BASE / FRESH TONSI L, RIGHT , FRESH CLINI VINH INFOR MATIO N: HYPER TROPH Y TONSI LS TONGU E BASE NEOPL ASM A) ENTIR E SPECI MEN SENT FOR FLOW CYTOM ETRY B) A PORTI ON OF THE SPECI MEN WAS SENT FOR FLOW CYTOM ETRY Gross Descr iptio n: A) Recei albert fresh label ed with the patie nt's name and desig nated as tong ue base biops y is a 0.5 x 0.5 x 0.2 cm irreg ular fragm ent of pink castorena mucoi d soft tissu e. Touch preps are obtai michael. The speci men is submi tted entir wilman for flow cytom etry in RPMI. B) Recei albert fresh label ed with the patie nt's name and desig nated as righ t tonsi l is a 3.0 x 1.7 x 1.7 cm tonsi llect boo speci men. The speci men is secti oned, and touch preps are obtai michael. A porti on of the speci men is submi tted in RPMI for flow cytom etry. Furth er secti oning demon strat es a pink- castorena glist ening cut surfa ce. The remai nder of the speci men is submi tted for perma nents in casse ttes B1-B4 . MT 02/22 04:30 PM Micro scopi c Descr iptio n: The tonsi l is entir wilman submi tted for micro scopi c exami natio n. Secti ons show prese rvati on of the giselle l crypt archi tectu re. Crypt s are lined by abund ant lymph oid tissu e with enlar ged react shana germi nal cente rs, gener ally showi ng prese rvati on of giselle l polar izati on. Morph ologi c evide nce of invol vemen t by lymph autumn is not obvio us. In some areas , the inter folli cular lymph oid tissu e shows a relat ively monom orpho us cell popul ation of small lymph oid cells , rathe r than the giselle l marke dly heter ogene ous popul ation . This likel y corre lates with the immun ophen otypi c findi ngs on flow cytom etry. A touch prep from the base of tongu e lesio n shows mostl y benig n squam ous cells , mixed with lymph oid cells . A domin ant atypi vinh lymph oid popul ation is not morph ologi lamin ident ified withi n the touch impri nt smear s. Touch impri nt smear s from the tonsi l show simil ar findi ngs. JOSHUA ZAMORA MD Monse d Out Date: 02/23 16:45 Page 1 of 1 Not Available [facility] [address] [place] [address], [address], 02/23/2023 16:45:21 03/30/20 23 03/30/2023 COMP. METAB OLIC PANEL glucose 107 mg/dL 74-100 high Not Available [facility] [address] [place] [address], [address], 03/30/2023 10:45:23 03/30/20 23 03/30/2023 COMP. METAB OLIC PANEL blood urea nitrogen 18 mg/dL 6-20 normal Not Available [facility] [address] [place] [address], [phone], 03/30/2023 10:45:23 03/30/20 23 03/30/2023 COMP. METAB OLIC PANEL creatinine 1.44 mg/dL 0.50-0 .95 high Not Available [facility] [address] [place] [address], [address], 03/30/2023 10:45:23 03/30/20 23 03/30/2023 COMP. METAB OLIC PANEL BUN/creatini ne ratio 13 (calc ) 10-20 normal Not Available [facility] [address] [place] [address], [address], 03/30/2023 10:45:23 03/30/20 23 03/30/2023 COMP. METAB OLIC PANEL sodium 139 mmol/ L 136-14 5 normal Not Available [facility] [address] [place] [address], [address], 03/30/2023 10:45:23 03/30/20 23 03/30/2023 COMP. METAB OLIC PANEL potassium 4.3 mmol/ L 3.4-5. 0 normal Not Available [facility] [address] [place] [address], [address], 03/30/2023 10:45:23 03/30/20 23 03/30/2023 COMP. METAB OLIC PANEL chloride 103 mmol/ L 98-107 normal Not Available [facility] [address] [place] [address], [address], 03/30/2023 10:45:23 03/30/20 23 03/30/2023 COMP. METAB OLIC PANEL carbon dioxide 26 mmol/ L 22-31 normal Not Available [facility] [address] [place] [address], [address], 03/30/2023 10:45:23 03/30/20 23 03/30/2023 COMP. METAB OLIC PANEL anion gap 10 (calc ) 7-25 normal Not Available [facility] [address] [place] [address], [address], 03/30/2023 10:45:23 03/30/20 23 03/30/2023 COMP. METAB OLIC PANEL calcium 9.2 mg/dL 8.6-10 .2 normal Not Available [facility] [address] [place] [address], [address], 03/30/2023 10:45:23 03/30/20 23 03/30/2023 COMP. METAB OLIC PANEL total protein 7.0 g/dL 6.4-8. 3 normal Not Available [facility] [address] [place] [address], [address], 03/30/2023 10:45:23 03/30/20 23 03/30/2023 COMP. METAB OLIC PANEL albumin 4.6 g/dL 3.5-5. 2 normal Not Available [facility] [address] [place] [address], [address], 03/30/2023 10:45:23 03/30/20 23 03/30/2023 COMP. METAB OLIC PANEL globulin 2.4 1.5-4. 5 normal Not Available [facility] [address] [place] [address], [address], 03/30/2023 10:45:23 03/30/20 23 03/30/2023 COMP. METAB OLIC PANEL albumin/glob ulin ratio 1.9 (calc ) 1.1-2. 5 normal Not Available [facility] [address] [place] [address], [address], 03/30/2023 10:45:23 03/30/20 23 03/30/2023 COMP. METAB OLIC PANEL bilirubin, total 0.7 mg/dL 0.1-1. 2 normal Not Available [facility] [address] [place] [address], [address], 03/30/2023 10:45:23 03/30/20 23 03/30/2023 COMP. METAB OLIC PANEL alkaline phosphatase 68 U/L 30-121 normal Not Available [facility] [address] [place] [address], [address], 03/30/2023 10:45:23 03/30/20 23 03/30/2023 COMP. METAB OLIC PANEL AST 17 U/L 0-32 normal Not Available [facility] [address] [place] [address] [place], [address], 03/30/2023 10:45:23 03/30/20 23 03/30/2023 COMP. METAB OLIC PANEL ALT 12 U/L 0-33 normal Not Available [facility] [address] [place] [address], [address], 03/30/2023 10:45:23 03/30/20 23 03/30/2023 COMP. METAB OLIC PANEL GFR 37 >= 60 abnormal NOT E New calcu latio n for GFR (CKD- EPI 2020) is formu lated witho ut race adjus tment facto rs at the recom menda tion of the Lina Campoverde y Seth galindo and Michelle Caldera ty of Nephr ology . This calcu latio n has not been valid ated in pregn ant women . For pedia tric patie nts refer to https ://heike [email or web address] rg/deep adorno s/KDO QI/gf r_cal culat orPed Not Available [facility] [address] [place] [address], [address], 03/30/2023 10:45:23 03/30/20 23 03/30/2023 COMPL ETE BLOOD COUNT white blood cells 12.4 10*3/ uL 3.8-10 .8 high Not Available [facility] [address] [place] [address], [address], 03/30/2023 10:12:44 03/30/20 23 03/30/2023 COMPL ETE BLOOD COUNT red blood cells 4.37 10*6/ uL 3.80-5 .20 normal Not Available [facility] [address] [place] [address], [address], 03/30/2023 10:12:44 03/30/20 23 03/30/2023 COMPL ETE BLOOD COUNT hemoglobin 12.6 g/dL 12.0-1 6.0 normal Not Available [facility] [address] [place] [address], [address], 03/30/2023 10:12:44 03/30/20 23 03/30/2023 COMPL ETE BLOOD COUNT hematocrit 38.4 % 35.0-4 7.0 normal Not Available [facility] [address] [place] [address], [address], 03/30/2023 10:12:44 03/30/20 23 03/30/2023 COMPL ETE BLOOD COUNT MCV 88 fL 80-100 normal Not Available [facility] [address] [place] [address], [address], 03/30/2023 10:12:44 03/30/20 23 03/30/2023 COMPL ETE BLOOD COUNT MCH 29 pg 26-35 normal Not Available [facility] [address] [place] [address], [address], 03/30/2023 10:12:44 03/30/20 23 03/30/2023 COMPL ETE BLOOD COUNT MCHC 33 g/dL 32-36 normal Not Available [facility] [address] [place] [address], [address], 03/30/2023 10:12:44 03/30/20 23 03/30/2023 COMPL ETE BLOOD COUNT RDW 15.2 % 11.0-1 5.0 high Not Available [facility] [address] [place] [address], [address], 03/30/2023 10:12:44 03/30/20 23 03/30/2023 COMPL ETE BLOOD COUNT MPV 7.2 fL 6.2-10 .5 normal Not Available [facility] [address] [place] [address], [address], 03/30/2023 10:12:44 03/30/20 23 03/30/2023 COMPL ETE BLOOD COUNT platelet count 166 10*3/ uL 150-40 0 normal Not Available [facility] [address] [place] [address], [address], 03/30/2023 10:12:44 03/30/20 23 03/30/2023 COMPL ETE BLOOD COUNT neutrophil,a bsolute 5.8 10*3/ uL 1.6-8. 4 normal Not Available [facility] [address] [place] [address], [address], 03/30/2023 10:12:44 03/30/20 23 03/30/2023 COMPL ETE BLOOD COUNT lymphocyte,a bsolute 5.7 10*3/ uL 0.4-5. 1 high Not Available [facility] [address] [place] [address], [address], 03/30/2023 10:12:44 03/30/20 23 03/30/2023 COMPL ETE BLOOD COUNT monocyte,abs olute 0.7 10*3/ uL 0.0-1. 2 normal Not Available [facility] [address] [place] [address], [address], 03/30/2023 10:12:44 03/30/20 23 03/30/2023 COMPL ETE BLOOD COUNT eosinophil,a bsolute 0.1 10*3/ uL 0.0-0. 8 normal Not Available [facility] [address] [place] [address], [address], 03/30/2023 10:12:44 03/30/20 23 03/30/2023 COMPL ETE BLOOD COUNT basophil,abs olute 0.0 10*3/ uL 0.0-0. 3 normal Not Available [facility] [address] [place] [address], [address], 03/30/2023 10:12:44 03/30/20 23 03/30/2023 COMPL ETE BLOOD COUNT % neutrophils 46.9 % 42.0-7 8.0 normal Not Available [facility] [address] [place] [address], [address], 03/30/2023 10:12:44 03/30/20 23 03/30/2023 COMPL ETE BLOOD COUNT % lymphocytes 45.9 % 11.0-4 7.0 normal Not Available [facility] [address] [place] [address], [address], 03/30/2023 10:12:44 03/30/20 23 03/30/2023 COMPL ETE BLOOD COUNT % monocytes 5.8 % 0.0-11 .0 normal Not Available [facility] [address] [place] [address], [address], 03/30/2023 10:12:44 03/30/20 23 03/30/2023 COMPL ETE BLOOD COUNT % eosinophils 1.1 % 0.0-7. 0 normal Not Available [facility] [address] [place] [address], [address], 03/30/2023 10:12:44 03/30/20 23 03/30/2023 COMPL ETE BLOOD COUNT % basophils 0.3 % 0.0-3. 0 normal Not Available [facility] [address] [place] [address], [address], 03/30/2023 10:12:44 03/30/20 23 03/30/2023 COMPL ETE BLOOD COUNT nucleated red cells 0.1 % 0.0-0. 9 normal Not Available [facility] [address] [place] [address], [address], 03/30/2023 10:12:44 03/30/20 23 03/30/2023 COMPL ETE BLOOD COUNT nucleated RBCs, absolute 0.01 10*3/ uL not estab. normal Not Available [facility] [address] [place] [address], [address], 03/30/2023 10:12:44 08/09/19 24 08/09/2023 LDH LDH 175 U/L 135-23 3 normal Not Available [facility] [address] [place] [address], [address], 08/09/2023 15:29:24 08/09/19 24 08/09/2023 COMP. METAB OLIC PANEL glucose 123 mg/dL 74-100 high Not Available [facility] [address] [place] [address], [address], 08/09/2023 15:28:21 08/09/19 24 08/09/2023 COMP. METAB OLIC PANEL blood urea nitrogen 16 mg/dL 6-20 normal Not Available [facility] [address] [place] [address], [address], 08/09/2023 15:28:21 08/09/19 24 08/09/2023 COMP. METAB OLIC PANEL creatinine 1.40 mg/dL 0.50-0 .95 high Not Available [facility] [address] [place] [address], [address], 08/09/2023 15:28:21 08/09/19 24 08/09/2023 COMP. METAB OLIC PANEL BUN/creatini ne ratio 11 (calc ) 10-20 normal Not Available [facility] [address] [place] [address], [address], 08/09/2023 15:28:21 08/09/19 24 08/09/2023 COMP. METAB OLIC PANEL sodium 139 mmol/ L 136-14 5 normal Not Available [facility] [address] [place] [address], [address], 08/09/2023 15:28:21 08/09/19 24 08/09/2023 COMP. METAB OLIC PANEL potassium 4.4 mmol/ L 3.4-5. 0 normal Not Available [facility] [address] [place] [address], [address], 08/09/2023 15:28:21 08/09/19 24 08/09/2023 COMP. METAB OLIC PANEL chloride 102 mmol/ L 98-107 normal Not Available [facility] [address] [place] [address], [address], 08/09/2023 15:28:21 08/09/19 24 08/09/2023 COMP. METAB OLIC PANEL carbon dioxide 24 mmol/ L 22-31 normal Not Available [facility] [address] [place] [address], [address], 08/09/2023 15:28:21 08/09/19 24 08/09/2023 COMP. METAB OLIC PANEL anion gap 13 (calc ) 7-25 normal Not Available [facility] [address] [place] [address], [address], 08/09/2023 15:28:21 08/09/19 24 08/09/2023 COMP. METAB OLIC PANEL calcium 9.4 mg/dL 8.6-10 .2 normal Not Available [facility] [address] [place] [address], [address], 08/09/2023 15:28:21 08/09/19 24 08/09/2023 COMP. METAB OLIC PANEL total protein 7.5 g/dL 6.4-8. 3 normal Not Available [facility] [address] [place] [address], [address], 08/09/2023 15:28:21 08/09/19 24 08/09/2023 COMP. METAB OLIC PANEL albumin 4.4 g/dL 3.5-5. 2 normal Not Available [facility] [address] [place] [address], [address], 08/09/2023 15:28:21 08/09/19 24 08/09/2023 COMP. METAB OLIC PANEL globulin 3.1 1.5-4. 5 normal Not Available [facility] [address] [place] [address], [address], 08/09/2023 15:28:21 08/09/19 24 08/09/2023 COMP. METAB OLIC PANEL albumin/glob ulin ratio 1.4 (calc ) 1.1-2. 5 normal Not Available [facility] [address] [place] [address], [address], 08/09/2023 15:28:21 08/09/19 24 08/09/2023 COMP. METAB OLIC PANEL bilirubin, total 0.9 mg/dL 0.1-1. 2 normal Not Available [facility] [address] [place] [address], [address], 08/09/2023 15:28:21 08/09/19 24 08/09/2023 COMP. METAB OLIC PANEL alkaline phosphatase 74 U/L 30-121 normal Not Available [facility] [address] [place], [address], 08/09/2023 15:28:21 08/09/19 24 08/09/2023 COMP. METAB OLIC PANEL AST 15 U/L 0-32 normal Not Available [facility] [address] [place] [address], [address], 08/09/2023 15:28:21 08/09/19 24 08/09/2023 COMP. METAB OLIC PANEL ALT 10 U/L 0-33 normal Not Available [facility] [address] [place] [address], [address], 08/09/2023 15:28:21 08/09/19 24 08/09/2023 COMP. METAB OLIC PANEL GFR 38 >= 60 abnormal NOT E New calcu latio n for GFR (CKD- EPI 2020) is formu lated witho ut race adjus tment facto rs at the recom menda tion of the Lina Campoverde y Found ation and Ameri deloris Goetze ty of Nephr ology . This calcu latio n has not been valid ated in pregn ant women . For pedia dina sheparde nts refer to https ://heike [email or web address] claudio/deep adorno s/YARIO QI/gf r_cal culat orPed Not Available [facility] [address] [place], [address], 08/09/2023 15:28:21 04/22/20 24 08/09/2023 MANUA L DIFFE RENTI AL % band neutrophils 0.0 % 0.0-7. 0 normal Not Available [facility] [address] [place] [address], [address], 08/09/2023 15:11:11 08/09/19 24 08/09/2023 MANUA L DIFFE RENTI AL % atypical lymphocytes 0 % 0-1 normal Not Available [facility] [address] [place] [address], [address], 08/09/2023 15:11:11 08/09/19 24 08/09/2023 MANUA L DIFFE RENTI AL % metamyelocyt es 0 % 0-1 normal Not Available [facility] [address] [place] [address], [address], 08/09/2023 15:11:11 08/09/19 24 08/09/2023 MANUA L DIFFE RENTI AL % myelocytes 0 % 0-1 normal Not Available [facility] [address] [place] [address], [address], 08/09/2023 15:11:11 08/09/19 24 08/09/2023 MANUA L DIFFE RENTI AL % promyelocyte s 0 % 0 normal Not Available [facility] [address] [place] [address], [address], 08/09/2023 15:11:11 08/09/19 24 08/09/2023 MANUA L DIFFE RENTI AL % blast 0 % 0 normal Not Available [facility] [address] [place] [address], [address], 08/09/2023 15:11:11 08/09/19 24 08/09/2023 MANUA L DIFFE RENTI AL nucleated red cells 0 /100{ WBC} 0-1 normal Not Available [facility] [address] [place] [address], [address], 08/09/2023 15:11:11 08/09/19 24 08/09/2023 MANUA L DIFFE RENTI AL smudge cells 0 /100{ WBC} 0 normal Not Available [facility] [address] [place] [address], [address], 08/09/2023 15:11:11 08/09/19 24 08/09/2023 MANUA L DIFFE RENTI AL platelet morphology NORMAL normal Not Available [facility] [address] [place] [address], [address], 08/09/2023 15:11:11 08/09/19 24 08/09/2023 MANUA L DIFFE RENTI AL ovalocytes SLIGHT abnormal Not Available [facility] [address] [place] [address], [address], 08/09/2023 15:11:11 08/09/19 24 08/09/2023 COMPL ETE BLOOD COUNT white blood cells 9.3 10*3/ uL 3.8-10 .8 normal Not Available [facility] [address] [place] [address], [address], 08/09/2023 15:11:10 08/09/19 24 08/09/2023 COMPL ETE BLOOD COUNT red blood cells 4.31 10*6/ uL 3.80-5 .20 normal Not Available [facility] [address] [place] [address], [address], 08/09/2023 15:11:10 08/09/19 24 08/09/2023 COMPL ETE BLOOD COUNT hemoglobin 12.7 g/dL 12.0-1 6.0 normal Not Available [facility] [address] [place] [address], [address], 08/09/2023 15:11:10 08/09/19 24 08/09/2023 COMPL ETE BLOOD COUNT hematocrit 38.5 % 35.0-4 7.0 normal Not Available [facility] [address] [place] [address], [address], 08/09/2023 15:11:10 08/09/19 24 08/09/2023 COMPL ETE BLOOD COUNT MCV 89 fL 80-100 normal Not Available [facility] [address] [place] [address], [address], 08/09/2023 15:11:10 08/09/19 24 08/09/2023 COMPL ETE BLOOD COUNT MCH 30 pg 26-35 normal Not Available [facility] [address] [place] [address], [address], 08/09/2023 15:11:10 08/09/19 24 08/09/2023 COMPL ETE BLOOD COUNT MCHC 33 g/dL 32-36 normal Not Available [facility] [address] [place] [address], [address], 08/09/2023 15:11:10 08/09/19 24 08/09/2023 COMPL ETE BLOOD COUNT RDW 15.3 % 11.0-1 5.0 high Not Available [facility] [address] [place] [address], [address], 08/09/2023 15:11:10 08/09/19 24 08/09/2023 COMPL ETE BLOOD COUNT MPV 7.8 fL 6.2-10 .5 normal Not Available [facility] [address] [place] [address], [address], 08/09/2023 15:11:10 08/09/19 24 08/09/2023 COMPL ETE BLOOD COUNT platelet count 166 10*3/ uL 150-40 0 normal Not Available [facility] [address] [place] [address], [address], 08/09/2023 15:11:10 08/09/19 24 08/09/2023 COMPL ETE BLOOD COUNT neutrophil,a bsolute 2.7 10*3/ uL 1.6-8. 4 normal Not Available [facility] [facility] [address] [place] [address], [phone], 08/09/2023 15:11:10 08/09/19 24 08/09/2023 COMPL ETE BLOOD COUNT lymphocyte,a bsolute 5.9 10*3/ uL 0.4-5. 1 high Not Available [facility] [address] [place] [address], [phone], 08/09/2023 15:11:10 08/09/19 24 08/09/2023 COMPL ETE BLOOD COUNT monocyte,abs olute 0.7 10*3/ uL 0.0-1. 2 normal Not Available [facility] [address] [place] [address], [address], 08/09/2023 15:11:10 08/09/19 24 08/09/2023 COMPL ETE BLOOD COUNT eosinophil,a bsolute 0.1 10*3/ uL 0.0-0. 8 normal Not Available [facility] [address] [place] [address], [address], 08/09/2023 15:11:10 08/09/19 24 08/09/2023 COMPL ETE BLOOD COUNT basophil,abs olute 0.0 10*3/ uL 0.0-0. 3 normal Not Available [facility] [address] [place] [address], [address], 08/09/2023 15:11:10 08/09/19 24 08/09/2023 COMPL ETE BLOOD COUNT % neutrophils 29.0 % 42.0-7 8.0 low Not Available [facility] [address] [place] [address], [address], 08/09/2023 15:11:10 08/09/19 24 08/09/2023 COMPL ETE BLOOD COUNT % lymphocytes 63.0 % 11.0-4 7.0 high Not Available [facility] [address] [place] [address], [address], 08/09/2023 15:11:10 08/09/19 24 08/09/2023 COMPL ETE BLOOD COUNT % monocytes 7.0 % 0.0-11 .0 normal Not Available [facility] [address] [place] [address], [address], 08/09/2023 15:11:10 08/09/19 24 08/09/2023 COMPL ETE BLOOD COUNT % eosinophils 1.0 % 0.0-7. 0 normal Not Available [facility] [address] [place] [address], [address], 08/09/2023 15:11:10 08/09/19 24 08/09/2023 COMPL ETE BLOOD COUNT % basophils 0.0 % 0.0-3. 0 normal Not Available [facility] [address] [place] [address], [address], 08/09/2023 15:11:10 08/09/19 24 08/09/2023 COMPL ETE BLOOD COUNT nucleated red cells 0.2 % 0.0-0. 9 normal Not Available [facility] [address] [place] [address], [address], 08/09/2023 15:11:10 08/09/19 24 08/09/2023 COMPL ETE BLOOD COUNT nucleated RBCs, absolute 0.02 10*3/ uL not estab. normal Not Available [facility] [address] [place] [address], [address], 08/09/2023 15:11:10 11/08/19 24 11/08/2023 LDH LDH 173 U/L 135-23 3 normal Not Available [facility] [address] [place] [address], [address], 11/08/2023 13:08:20 11/08/19 24 11/08/2023 URIC ACID uric acid 6.6 mg/dL 2.4-5. 7 high Refer ence range s are based on [facility] norms and do not neces leesa slater late with treat ment targe ts. In patie nts with an estab lishe d diagn osis of gout under going Urate Lower ing Thera py (ULT) , the 2011 Michelle puentes Colle ge of Rheum atolo gy James hanna s for Manag ement of Gout recom mend a targe t uric acid level of < 6 mg/dL in all patie nts, or lower in certa in circu mstan my. Arthr itis Care and Resea [facility] Vol 64 No 10, 2011 Michelle puentes Colle ge of Rheum atolo gy ----- ----- ----- ----- ----- ----- ----- ----- ----- ----- ----- ---- Not Available [facility] [address] [place] [address], [address], 11/08/2023 12:56:00 11/08/19 24 11/08/2023 COMP. METAB OLIC PANEL glucose 124 mg/dL 74-100 high Not Available [facility] [address] [place] [address], [address], 11/08/2023 12:55:58 11/08/19 24 11/08/2023 COMP. METAB OLIC PANEL blood urea nitrogen 20 mg/dL 6-20 normal Not Available [facility] [address] [place] [address], [address], 11/08/2023 12:55:58 11/08/19 24 11/08/2023 COMP. METAB OLIC PANEL creatinine 1.52 mg/dL 0.50-0 .95 high Not Available [facility] [address] [place] [address], [address], 11/08/2023 12:55:58 11/08/19 24 11/08/2023 COMP. METAB OLIC PANEL BUN/creatini ne ratio 13 (calc ) 10-20 normal Not Available [facility] [address] [place] [address], [address], 11/08/2023 12:55:58 11/08/19 24 11/08/2023 COMP. METAB OLIC PANEL sodium 139 mmol/ L 136-14 5 normal Not Available [facility] [address] [place] [address], [address], 11/08/2023 12:55:58 11/08/19 24 11/08/2023 COMP. METAB OLIC PANEL potassium 3.9 mmol/ L 3.4-5. 0 normal Not Available [facility] [address] [place] [address], [address], 11/08/2023 12:55:58 11/08/19 24 11/08/2023 COMP. METAB OLIC PANEL chloride 103 mmol/ L 98-107 normal Not Available [facility] [address] [place] [address], [address], 11/08/2023 12:55:58 11/08/19 24 11/08/2023 COMP. METAB OLIC PANEL carbon dioxide 24 mmol/ L 22-31 normal Not Available [facility] [address] [place] [address], [address], 11/08/2023 12:55:58 11/08/19 24 11/08/2023 COMP. METAB OLIC PANEL anion gap 12 (calc ) 7-25 normal Not Available [facility] [address] [place] [address], [address], 11/08/2023 12:55:58 11/08/19 24 11/08/2023 COMP. METAB OLIC PANEL calcium 8.7 mg/dL 8.6-10 .2 normal Not Available [facility] [address] [place] [address], [address], 11/08/2023 12:55:58 11/08/19 24 11/08/2023 COMP. METAB OLIC PANEL total protein 6.8 g/dL 6.4-8. 3 normal Not Available [facility] [address] [place] [address], [address], 11/08/2023 12:55:58 11/08/19 24 11/08/2023 COMP. METAB OLIC PANEL albumin 4.1 g/dL 3.5-5. 2 normal Not Available [facility] [address] [place] [address], [address], 11/08/2023 12:55:58 11/08/19 24 11/08/2023 COMP. METAB OLIC PANEL globulin 2.7 1.5-4. 5 normal Not Available [facility] [address] [place] [address], [address], 11/08/2023 12:55:58 11/08/19 24 11/08/2023 COMP. METAB OLIC PANEL albumin/glob ulin ratio 1.5 (calc ) 1.1-2. 5 normal Not Available [facility] [address] [place] [address], [address], 11/08/2023 12:55:58 11/08/19 24 11/08/2023 COMP. METAB OLIC PANEL bilirubin, total 0.6 mg/dL 0.1-1. 2 normal Not Available [facility] [address] [place] [address], [address], 11/08/2023 12:55:58 11/08/19 24 11/08/2023 COMP. METAB OLIC PANEL alkaline phosphatase 82 U/L 30-121 normal Not Available [facility] [address] [place] [address], [address], 11/08/2023 12:55:58 11/08/19 24 11/08/2023 COMP. METAB OLIC PANEL AST 13 U/L 0-32 normal Not Available [facility] [address] [place] [address], [address], 11/08/2023 12:55:58 11/08/19 24 11/08/2023 COMP. METAB OLIC PANEL ALT 9 U/L 0-33 normal Not Available [facility] [address] [place] [address], [address], 11/08/2023 12:55:58 11/08/19 24 11/08/2023 COMP. METAB OLIC PANEL GFR 34 >= 60 abnormal NOT E New calcu latio n for GFR (CKD- EPI 2020) is formu lated witho ut race adjus tment facto rs at the recom menda tion of the [employer] at[employer] and [employer]i can [employer] ty of Nephr ology . This calcu latio n has not been valid ated in pregn ant women . For pedia tric patie nts refer to https ://heike [email or web address] rg/pr ofess ional s/KDO QI/gf r_cal culat orPed Not Available [facility] [address] [place] [address], [address], 11/08/2023 12:55:58 11/08/19 24 11/08/2023 MANUA L DIFFE RENTI AL % band neutrophils 2.0 % 0.0-7. 0 normal Not Available [facility] [address] [place] [address], [address], 11/08/2023 12:54:51 11/08/19 24 11/08/2023 MANUA L DIFFE RENTI AL % atypical lymphocytes 5 % 0-1 high Not Available [facility] [address] [place] [address], [address], 11/08/2023 12:54:51 11/08/19 24 11/08/2023 MANUA L DIFFE RENTI AL % metamyelocyt es 0 % 0-1 normal Not Available [facility] [address] [place], [address], 11/08/2023 12:54:51 11/08/19 24 11/08/2023 MANUA L DIFFE RENTI AL % myelocytes 0 % 0-1 normal Not Available [facility] [address] [place] [address], [address], 11/08/2023 12:54:51 07/22/20 24 11/08/2023 MANUA L DIFFE RENTI AL % promyelocyte s 0 % 0 normal Not Available [facility] [address] [place] [address], [address], 11/08/2023 12:54:51 11/08/19 24 11/08/2023 MANUA L DIFFE RENTI AL % blast 0 % 0 normal Not Available [facility] [address] [place] [address], [address], 11/08/2023 12:54:51 11/08/19 24 11/08/2023 MANUA L DIFFE RENTI AL nucleated red cells 0 /100{ WBC} 0-1 normal Not Available [facility] [address] [place] [address], [address], 11/08/2023 12:54:51 11/08/19 24 11/08/2023 MANUA L DIFFE RENTI AL smudge cells 0 /100{ WBC} 0 normal Not Available [facility] [address] [place] [address], [address], 11/08/2023 12:54:51 11/08/19 24 11/08/2023 MANUA L DIFFE RENTI AL platelet morphology NORMAL normal Not Available [facility] [address] [place] [address], [address], 11/08/2023 12:54:51 11/08/19 24 11/08/2023 MANUA L DIFFE RENTI AL hypochromasi a SLIGHT abnormal Not Available [facility] [address] [place] [address], [address], 11/08/2023 12:54:51 11/08/19 24 11/08/2023 MANUA L DIFFE RENTI AL polychromasi a SLIGHT abnormal Not Available [facility] [address] [place] [address], [address], 11/08/2023 12:54:51 11/08/19 24 11/08/2023 MAXX CHRISTENSEN RENTI AL ovalocytes SLIGHT abnormal Not Available [facility] [address] [place] [address], [address], 11/08/2023 12:54:51 11/08/19 24 11/08/2023 COMPL ETE BLOOD COUNT white blood cells 12.8 10*3/ uL 3.8-10 .8 high Not Available [facility] [address] [place] [address], [address], 11/08/2023 12:54:49 11/08/19 24 11/08/2023 COMPL ETE BLOOD COUNT red blood cells 4.02 10*6/ uL 3.80-5 .20 normal Not Available [facility] [address] [place] [address], [address], 11/08/2023 12:54:49 11/08/19 24 11/08/2023 COMPL ETE BLOOD COUNT hemoglobin 11.6 g/dL 12.0-1 6.0 low Not Available [facility] [address] [place] [address], [address], 11/08/2023 12:54:49 11/08/19 24 11/08/2023 COMPL ETE BLOOD COUNT hematocrit 35.5 % 35.0-4 7.0 normal Not Available [facility] [address] [place] [address], [address], 11/08/2023 12:54:49 11/08/19 24 11/08/2023 COMPL ETE BLOOD COUNT MCV 88 fL 80-100 normal Not Available [facility] [address] [place] [address], [address], 11/08/2023 12:54:49 11/08/19 24 11/08/2023 COMPL ETE BLOOD COUNT MCH 29 pg 26-35 normal Not Available [facility] [address] [place] [address], [address], 11/08/2023 12:54:49 11/08/19 24 11/08/2023 COMPL ETE BLOOD COUNT MCHC 33 g/dL 32-36 normal Not Available [facility] [address] [place] [address], [address], 11/08/2023 12:54:49 11/08/19 24 11/08/2023 COMPL ETE BLOOD COUNT RDW 15.4 % 11.0-1 5.0 high Not Available [facility] [address] [place] [address], [address], 11/08/2023 12:54:49 11/08/19 24 11/08/2023 COMPL ETE BLOOD COUNT MPV 7.2 fL 6.2-10 .5 normal Not Available [facility] [address] [place] [address], [address], 11/08/2023 12:54:49 11/08/19 24 11/08/2023 COMPL ETE BLOOD COUNT platelet count 144 10*3/ uL 150-40 0 low Not Available [facility] [address] [place] [address], [address], 11/08/2023 12:54:49 11/08/19 24 11/08/2023 COMPL ETE BLOOD COUNT neutrophil,a bsolute 2.2 10*3/ uL 1.6-8. 4 normal Not Available [facility] [address] [place] [address], [address], 11/08/2023 12:54:49 11/08/19 24 11/08/2023 COMPL ETE BLOOD COUNT lymphocyte,a bsolute 10.1 10*3/ uL 0.4-5. 1 high Not Available [facility] [address] [place] [address], [address], 11/08/2023 12:54:49 11/08/19 24 11/08/2023 COMPL ETE BLOOD COUNT monocyte,abs olute 0.5 10*3/ uL 0.0-1. 2 normal Not Available [facility] [address] [place] [address], [address], 11/08/2023 12:54:49 11/08/19 24 11/08/2023 COMPL ETE BLOOD COUNT eosinophil,a bsolute 0.0 10*3/ uL 0.0-0. 8 normal Not Available [facility] [address] [place] [address], [address], 11/08/2023 12:54:49 11/08/19 24 11/08/2023 COMPL ETE BLOOD COUNT basophil,abs olute 0.0 10*3/ uL 0.0-0. 3 normal Not Available [facility] [address] [place] [address], [address], 11/08/2023 12:54:49 11/08/19 24 11/08/2023 COMPL ETE BLOOD COUNT % neutrophils 15.0 % 42.0-7 8.0 low Not Available [facility] [address] [place] [address], [address], 11/08/2023 12:54:49 11/08/19 24 11/08/2023 COMPL ETE BLOOD COUNT % lymphocytes 74.0 % 11.0-4 7.0 high Not Available [facility] [address] [place] [address], [address], 11/08/2023 12:54:49 11/08/19 24 11/08/2023 COMPL ETE BLOOD COUNT % monocytes 4.0 % 0.0-11 .0 normal Not Available [facility] [address] [place] [address], [address], 11/08/2023 12:54:49 11/08/19 24 11/08/2023 COMPL ETE BLOOD COUNT % eosinophils 0.0 % 0.0-7. 0 normal Not Available [facility] [address] [place] [address], [address], 11/08/2023 12:54:49 11/08/19 24 11/08/2023 COMPL ETE BLOOD COUNT % basophils 0.0 % 0.0-3. 0 normal Not Available [facility] [address] [place] [address], [address], 11/08/2023 12:54:49 11/08/19 24 11/08/2023 COMPL ETE BLOOD COUNT nucleated red cells 0.1 % 0.0-0. 9 normal Not Available [facility] [address] [place], [address], 11/08/2023 12:54:49 11/08/19 24 11/08/2023 COMPL ETE BLOOD COUNT nucleated RBCs, absolute 0.01 10*3/ uL not estab. normal Not Available [facility] [address] [place] [address], [address], 11/08/2023 12:54:49 12/28/19 24 12/28/2023 URIC ACID uric acid 6.0 mg/dL 2.4-5. 7 high Refer ence range s are based on [facility] emergency department norms and do not neces leesa slater late with treat ment targe ts. In patie nts with an estab lishe d diagn osis of gout under going Urate Lower ing Thera py (ULT) , the 2011 Michelle can Colle ge of Rheum atolo gy James hanna s for Manag ement of Gout recom mend a targe t uric acid level of < 6 mg/dL in all patie nts, or lower in certa in circu mstan my. Arthr itis Care and Resea [facility] Vol 64 No 10, 2011 Michelle can Colle ge of Rheum atolo gy ----- ----- ----- ----- ----- ----- ----- ----- ----- ----- ----- ---- Not Available [facility] [address] [place] [address], [address], 12/28/2023 13:49:59 12/28/19 24 12/28/2023 LDH LDH 169 U/L 135-23 3 normal Not Available [facility] [address] [place] [address], [address], 12/28/2023 13:49:58 12/28/19 24 12/28/2023 COMP. METAB OLIC PANEL glucose 124 mg/dL 74-100 high Not Available [facility] [address] [place] [address], [address], 12/28/2023 13:49:56 12/28/19 24 12/28/2023 COMP. METAB OLIC PANEL blood urea nitrogen 16 mg/dL 6-20 normal Not Available [facility] [address] [place] [address], [address], 12/28/2023 13:49:56 12/28/19 24 12/28/2023 COMP. METAB OLIC PANEL creatinine 1.23 mg/dL 0.50-0 .95 high Not Available [facility] [address] [place] [address], [address], 12/28/2023 13:49:56 12/28/19 24 12/28/2023 COMP. METAB OLIC PANEL BUN/creatini ne ratio 13 (calc ) 10-20 normal Not Available [facility] [address] [place] [address], [address], 12/28/2023 13:49:56 12/28/19 24 12/28/2023 COMP. METAB OLIC PANEL sodium 138 mmol/ L 136-14 5 normal Not Available [facility] [address] [place] [address], [address], 12/28/2023 13:49:56 12/28/19 24 12/28/2023 COMP. METAB OLIC PANEL potassium 4.1 mmol/ L 3.4-5. 0 normal Not Available [facility] [address] [place] [address], [address], 12/28/2023 13:49:56 12/28/19 24 12/28/2023 COMP. METAB OLIC PANEL chloride 102 mmol/ L 98-107 normal Not Available [facility] [address] [place] [address], [address], 12/28/2023 13:49:56 12/28/19 24 12/28/2023 COMP. METAB OLIC PANEL carbon dioxide 22 mmol/ L 22-31 normal Not Available [facility] [address] [place] [address], [address], 12/28/2023 13:49:56 12/28/19 24 12/28/2023 COMP. METAB OLIC PANEL anion gap 14 (calc ) 7-25 normal Not Available [facility] [address] [place] [address], [address], 12/28/2023 13:49:56 12/28/19 24 12/28/2023 COMP. METAB OLIC PANEL calcium 8.8 mg/dL 8.6-10 .2 normal Not Available [facility] [address] [place] [address], [address], 12/28/2023 13:49:56 12/28/19 24 12/28/2023 COMP. METAB OLIC PANEL total protein 6.8 g/dL 6.4-8. 3 normal Not Available [facility] [address] [place] [address], [address], 12/28/2023 13:49:56 12/28/19 24 12/28/2023 COMP. METAB OLIC PANEL albumin 3.9 g/dL 3.5-5. 2 normal Not Available [facility] [address] [place] [address], [address], 12/28/2023 13:49:56 12/28/19 24 12/28/2023 COMP. METAB OLIC PANEL globulin 2.9 1.5-4. 5 normal Not Available [facility] [address] [place] [address], [address], 12/28/2023 13:49:56 12/28/19 24 12/28/2023 COMP. METAB OLIC PANEL albumin/glob ulin ratio 1.3 (calc ) 1.1-2. 5 normal Not Available [facility] [address] [place] [address], [address], 12/28/2023 13:49:56 12/28/19 24 12/28/2023 COMP. METAB OLIC PANEL bilirubin, total 0.5 mg/dL 0.1-1. 2 normal Not Available [facility] [address] [place], [address], 12/28/2023 13:49:56 12/28/19 24 12/28/2023 COMP. METAB OLIC PANEL alkaline phosphatase 79 U/L 30-121 normal Not Available [facility] [address] [place], [address], 12/28/2023 13:49:56 12/28/19 24 12/28/2023 COMP. METAB OLIC PANEL AST 14 U/L 0-32 normal Not Available [facility] [address] [place] [address], [address], 12/28/2023 13:49:56 12/28/19 24 12/28/2023 COMP. METAB OLIC PANEL ALT 9 U/L 0-33 normal Not Available [facility] [address] [place] [address], [address], 12/28/2023 13:49:56 12/28/19 24 12/28/2023 COMP. METAB OLIC PANEL GFR 44 >= 60 abnormal NOT E New calcu latio n for GFR (CKD- EPI 2020) is formu lated witho ut race adjus tment facto rs at the [facility] menda tion of the [facility] ty of Nephr ology . This calcu latio n has not been valid ated in pregn ant women . For pedia tric patie nts refer to https ://heike [email or web address] claudio/pr lia adorno s/KDO QI/gf r_cal culat orPed Not Available [facility] [address] [place] [address], [address], 12/28/2023 13:49:56 12/28/19 24 12/28/2023 MANUA L DIFFE RENTI AL % band neutrophils 0.0 % 0.0-7. 0 normal Not Available [facility] [address] [place] [address], [address], 12/28/2023 13:48:23 12/28/19 24 12/28/2023 MANUA L DIFFE RENTI AL % atypical lymphocytes 0 % 0-1 normal Not Available [facility] [address] [place] [address], [address], 12/28/2023 13:48:23 12/28/19 24 12/28/2023 MANUA L DIFFE RENTI AL % metamyelocyt es 0 % 0-1 normal Not Available [facility] [address] [place] [address], [address], 12/28/2023 13:48:23 12/28/19 24 12/28/2023 MANUA L DIFFE RENTI AL % myelocytes 0 % 0-1 normal Not Available [facility] [address] [place] [address], [address], 12/28/2023 13:48:23 12/28/19 24 12/28/2023 MANUA L DIFFE RENTI AL % promyelocyte s 0 % 0 normal Not Available [facility] [address] [place] [address], [address], 12/28/2023 13:48:23 12/28/19 24 12/28/2023 MANUA L DIFFE RENTI AL % blast 0 % 0 normal Not Available [facility] [address] [place] [address], [address], 12/28/2023 13:48:23 12/28/19 24 12/28/2023 MANUA L DIFFE RENTI AL nucleated red cells 0 /100{ WBC} 0-1 normal Not Available [facility] [address] [place] [address], [address], 12/28/2023 13:48:23 12/28/19 24 12/28/2023 MANUA L DIFFE RENTI AL smudge cells 0 /100{ WBC} 0 normal Not Available [facility] [address] [place] [address], [address], 12/28/2023 13:48:23 12/28/19 24 12/28/2023 MANUA L DIFFE RENTI AL RBC morphology NORMAL normal Not Available [facility] [address] [place] [address], [address], 12/28/2023 13:48:23 12/28/19 24 12/28/2023 MANUA L DIFFE RENTI AL platelet morphology NORMAL normal Not Available [facility] [address] [place] [address], [address], 12/28/2023 13:48:23 12/28/19 24 12/28/2023 COMPL ETE BLOOD COUNT white blood cells 16.2 10*3/ uL 3.8-10 .8 high Not Available [facility] [address] [place] [address], [address], 12/28/2023 13:48:22 12/28/19 24 12/28/2023 COMPL ETE BLOOD COUNT red blood cells 4.15 10*6/ uL 3.80-5 .20 normal Not Available [facility] [address] [place] [address], [address], 12/28/2023 13:48:22 12/28/19 24 12/28/2023 COMPL ETE BLOOD COUNT hemoglobin 11.5 g/dL 12.0-1 6.0 low Not Available [facility] [address] [place] [address], [address], 12/28/2023 13:48:22 12/28/19 24 12/28/2023 COMPL ETE BLOOD COUNT hematocrit 36.3 % 35.0-4 7.0 normal Not Available [facility] [address] [place] [address], [address], 12/28/2023 13:48:22 12/28/19 24 12/28/2023 COMPL ETE BLOOD COUNT MCV 88 fL 80-100 normal Not Available [facility] [address] [place] [address], [address], 12/28/2023 13:48:22 12/28/19 24 12/28/2023 COMPL ETE BLOOD COUNT MCH 28 pg 26-35 normal Not Available [facility] [address] [place] [address], [address], 12/28/2023 13:48:22 12/28/19 24 12/28/2023 COMPL ETE BLOOD COUNT MCHC 32 g/dL 32-36 normal Not Available [facility] [address] [place] [address], [address], 12/28/2023 13:48:22 12/28/19 24 12/28/2023 COMPL ETE BLOOD COUNT RDW 15.0 % 11.0-1 5.0 normal Not Available [facility] [address] [place] [address], [address], 12/28/2023 13:48:22 12/28/1912/28/2023 COMPL ETE BLOOD COUNT MPV 7.7 fL 6.2-10 .5 normal Not Available [facility] [address] [place] [address], [address], 12/28/2023 13:48:22 12/28/1912/28/2023 COMPL ETE BLOOD COUNT platelet count 128 10*3/ uL 150-40 0 low Not Available [facility] [address] [place] [address], [address], 12/28/2023 13:48:22 12/28/19 24 12/28/2023 COMPL ETE BLOOD COUNT neutrophil,a bsolute 4.4 10*3/ uL 1.6-8. 4 normal Not Available [facility] [address] [place] [address], [address], 12/28/2023 13:48:22 12/28/19 24 12/28/2023 COMPL ETE BLOOD COUNT lymphocyte,a bsolute 11.5 10*3/ uL 0.4-5. 1 high Not Available [facility] [address] [place] [address], [address], 12/28/2023 13:48:22 12/28/19 24 12/28/2023 COMPL ETE BLOOD COUNT monocyte,abs olute 0.3 10*3/ uL 0.0-1. 2 normal Not Available [facility] [address] [place] [address], [address], 12/28/2023 13:48:22 12/28/19 24 12/28/2023 COMPL ETE BLOOD COUNT eosinophil,a bsolute 0.0 10*3/ uL 0.0-0. 8 normal Not Available [facility] [address] [place] [address], [address], 12/28/2023 13:48:22 12/28/19 24 12/28/2023 COMPL ETE BLOOD COUNT basophil,abs olute 0.0 10*3/ uL 0.0-0. 3 normal Not Available [facility] [address] [place] [address], [address], 12/28/2023 13:48:22 12/28/19 24 12/28/2023 COMPL ETE BLOOD COUNT % neutrophils 27.0 % 42.0-7 8.0 low Not Available [facility] [address] [place] [address], [address], 12/28/2023 13:48:22 12/28/19 24 12/28/2023 COMPL ETE BLOOD COUNT % lymphocytes 71.0 % 11.0-4 7.0 high Not Available [facility] [address] [place] [address], [address], 12/28/2023 13:48:22 12/28/19 24 12/28/2023 COMPL ETE BLOOD COUNT % monocytes 2.0 % 0.0-11 .0 normal Not Available [facility] [address] [place] [address], [address], 12/28/2023 13:48:22 12/28/19 24 12/28/2023 COMPL ETE BLOOD COUNT % eosinophils 0.0 % 0.0-7. 0 normal Not Available [facility] [address] [place] [address], [address], 12/28/2023 13:48:22 12/28/19 24 12/28/2023 COMPL ETE BLOOD COUNT % basophils 0.0 % 0.0-3. 0 normal Not Available [facility] [address] [place] [address], [address], 12/28/2023 13:48:22 12/28/19 24 12/28/2023 COMPL ETE BLOOD COUNT nucleated red cells 0.1 % 0.0-0. 9 normal Not Available [facility] [address] [place] [address], [address], 12/28/2023 13:48:22 12/28/19 24 12/28/2023 COMPL ETE BLOOD COUNT nucleated RBCs, absolute 0.01 10*3/ uL not estab. normal Not Available [facility] [address] [place] [address], [address], 12/28/2023 13:48:22 05/09/19 25 05/09/2024 COMP. METAB OLIC PANEL glucose 75 mg/dL 74-100 normal Not Available [facility] [address] [place] [address], [address], 05/09/2024 14:04:13 05/09/19 25 05/09/2024 COMP. METAB OLIC PANEL blood urea nitrogen 20 mg/dL 6-20 normal Not Available [facility] [address] [place] [address], [address], 05/09/2024 14:04:13 05/09/19 25 05/09/2024 COMP. METAB OLIC PANEL creatinine 1.53 mg/dL 0.50-0 .95 high Not Available [facility] [address] [place] [address], [address], 05/09/2024 14:04:13 05/09/19 25 05/09/2024 COMP. METAB OLIC PANEL BUN/creatini ne ratio 13 (calc ) 10-20 normal Not Available [facility] [address] [place] [address], [address], 05/09/2024 14:04:13 05/09/19 25 05/09/2024 COMP. METAB OLIC PANEL sodium 136 mmol/ L 136-14 5 normal Not Available [facility] [address] [place] [address], [address], 05/09/2024 14:04:13 05/09/19 25 05/09/2024 COMP. METAB OLIC PANEL potassium 4.1 mmol/ L 3.4-5. 0 normal Not Available [facility] [address] [place] [address], [address], 05/09/2024 14:04:13 05/09/19 25 05/09/2024 COMP. METAB OLIC PANEL chloride 100 mmol/ L 98-107 normal Not Available [facility] [address] [place] [address], [address], 05/09/2024 14:04:13 05/09/19 25 05/09/2024 COMP. METAB OLIC PANEL carbon dioxide 24 mmol/ L 22-31 normal Not Available [facility] [address] [place] [address], [address], 05/09/2024 14:04:13 05/09/19 25 05/09/2024 COMP. METAB OLIC PANEL anion gap 12 (calc ) 7-25 normal Not Available [facility] [address] [place] [address], [address], 05/09/2024 14:04:13 05/09/19 25 05/09/2024 COMP. METAB OLIC PANEL calcium 9.6 mg/dL 8.6-10 .2 normal Not Available [facility] [address] [place] [address], [address], 05/09/2024 14:04:13 05/09/19 25 05/09/2024 COMP. METAB OLIC PANEL total protein 7.1 g/dL 6.4-8. 3 normal Not Available [facility] [address] [place] [address], [address], 05/09/2024 14:04:13 05/09/19 25 05/09/2024 COMP. METAB OLIC PANEL albumin 4.4 g/dL 3.5-5. 2 normal Not Available [facility] [address] [place] [address], [address], 05/09/2024 14:04:13 05/09/19 25 05/09/2024 COMP. METAB OLIC PANEL globulin 2.7 1.5-4. 5 normal Not Available [facility] [address] [place] [address], [address], 05/09/2024 14:04:13 05/09/19 25 05/09/2024 COMP. METAB OLIC PANEL albumin/glob ulin ratio 1.6 (calc ) 1.1-2. 5 normal Not Available [facility] [address] [place] [address], [address], 05/09/2024 14:04:13 05/09/19 25 05/09/2024 COMP. METAB OLIC PANEL bilirubin, total 0.7 mg/dL 0.1-1. 2 normal Not Available [facility] [address] [place] [address], [address], 05/09/2024 14:04:13 05/09/19 25 05/09/2024 COMP. METAB OLIC PANEL alkaline phosphatase 77 U/L 30-121 normal Not Available [facility] [address] [place] [address], [address], 05/09/2024 14:04:13 05/09/19 25 05/09/2024 COMP. METAB OLIC PANEL AST 15 U/L 0-32 normal Not Available [facility] [address] [place] [address], [address], 05/09/2024 14:04:13 05/09/19 25 05/09/2024 COMP. METAB OLIC PANEL ALT 7 U/L 0-33 normal Not Available [facility] [address] [place], [address], 05/09/2024 14:04:13 05/09/19 25 05/09/2024 COMP. METAB OLIC PANEL GFR 34 >= 60 abnormal NOT E New calcu latio n for GFR (CKD- EPI 2020) is formu lated witho ut race adjus tment facto rs at the recom menda tion of the [facility] Nephr ology . This calcu latio n has not been valid ated in pregn ant women . For pedia tric patie nts refer to https ://heike [email or web address] claudio/deep adorno s/YARIO QI/gf r_cal culat orPed Not Available [facility] [address] [place] [address], [address], 05/09/2024 14:04:13 05/09/19 25 05/09/2024 LDH LDH 176 U/L 135-23 3 normal Not Available [facility] [address] [place], [address], 05/09/2024 14:04:05 05/09/19 25 05/09/2024 JASKARANA Viktoriya DIFFE RENTI AL % band neutrophils 1.0 % 0.0-7. 0 normal Not Available [facility] [address] [place] [address], [address], 05/09/2024 14:00:15 05/09/19 25 05/09/2024 MANUA L DIFFE RENTI AL % atypical lymphocytes 0 % 0-1 normal Not Available [facility] [address] [place] [address], [address], 05/09/2024 14:00:15 05/09/19 25 05/09/2024 MANUA L DIFFE RENTI AL % metamyelocyt es 0 % 0-1 normal Not Available [facility] [address] [place] [address], [address], 05/09/2024 14:00:15 05/09/19 25 05/09/2024 MANUA L DIFFE RENTI AL % myelocytes 0 % 0-1 normal Not Available [facility] [address] [place] [address], [address], 05/09/2024 14:00:15 05/09/19 25 05/09/2024 MANUA L DIFFE RENTI AL % promyelocyte s 0 % 0 normal Not Available [facility] [address] [place] [address], [address], 05/09/2024 14:00:15 05/09/19 25 05/09/2024 MANUA L DIFFE RENTI AL % blast 0 % 0 normal Not Available [facility] [address] [place] [address], [address], 05/09/2024 14:00:15 05/09/19 25 05/09/2024 MANUA L DIFFE RENTI AL nucleated red cells 0 /100{ WBC} 0-1 normal Not Available [facility] [address] [place] [address], [address], 05/09/2024 14:00:15 05/09/19 25 05/09/2024 MANUA L DIFFE RENTI AL smudge cells 0 /100{ WBC} 0 normal Not Available [facility] [address] [place] [address], [address], 05/09/2024 14:00:15 05/09/19 25 05/09/2024 MANUA L DIFFE RENTI AL platelet morphology NORMAL normal Not Available [facility] [address] [place] [address], [address], 05/09/2024 14:00:15 05/09/19 25 05/09/2024 MANUA L DIFFE RENTI AL polychromasi a SLIGHT abnormal Not Available [facility] [address] [place] [address], [address], 05/09/2024 14:00:15 05/09/19 25 05/09/2024 MANUA L DIFFE RENTI AL stomatocytes SLIGHT abnormal Not Available [facility] [address] [place] [address], [address], 05/09/2024 14:00:15 05/09/19 25 05/09/2024 COMPL ETE BLOOD COUNT white blood cells 29.7 10*3/ uL 3.8-10 .8 high RESUL TS RECHE CKED Not Available [facility] [address] [place] [address], [address], 05/09/2024 14:00:14 05/09/19 25 05/09/2024 COMPL ETE BLOOD COUNT red blood cells 4.17 10*6/ uL 3.80-5 .20 normal Not Available [facility] [address] [place] [address], [address], 05/09/2024 14:00:14 05/09/19 25 05/09/2024 COMPL ETE BLOOD COUNT hemoglobin 12.2 g/dL 12.0-1 6.0 normal Not Available [facility] [address] [place] [address], [address], 05/09/2024 14:00:14 05/09/19 25 05/09/2024 COMPL ETE BLOOD COUNT hematocrit 36.7 % 35.0-4 7.0 normal Not Available [facility] [address] [place] [address], [address], 05/09/2024 14:00:14 05/09/19 25 05/09/2024 COMPL ETE BLOOD COUNT MCV 88 fL 80-100 normal Not Available [facility] [address] [place] [address], [address], 05/09/2024 14:00:14 05/09/19 25 05/09/2024 COMPL ETE BLOOD COUNT MCH 29 pg 26-35 normal Not Available [facility] [address] [place] [address], [address], 05/09/2024 14:00:14 05/09/19 25 05/09/2024 COMPL ETE BLOOD COUNT MCHC 33 g/dL 32-36 normal Not Available [facility] [address] [place] [address], [address], 05/09/2024 14:00:14 05/09/19 25 05/09/2024 COMPL ETE BLOOD COUNT RDW 16.1 % 11.0-1 5.0 high Not Available [facility] [address] [place] [address], [address], 05/09/2024 14:00:14 05/09/19 25 05/09/2024 COMPL ETE BLOOD COUNT MPV 7.6 fL 6.2-10 .5 normal Not Available [facility] [address] [place] [address], [address], 05/09/2024 14:00:14 05/09/19 25 05/09/2024 COMPL ETE BLOOD COUNT platelet count 139 10*3/ uL 150-40 0 low Not Available [facility] [address] [place] [address], [address], 05/09/2024 14:00:14 05/09/19 25 05/09/2024 COMPL ETE BLOOD COUNT neutrophil,a bsolute 4.8 10*3/ uL 1.6-8. 4 normal Not Available [facility] [address] [place] [address], [address], 05/09/2024 14:00:14 05/09/19 25 05/09/2024 COMPL ETE BLOOD COUNT lymphocyte,a bsolute 24.1 10*3/ uL 0.4-5. 1 high Not Available [facility] [address] [place] [address], [address], 05/09/2024 14:00:14 05/09/19 25 05/09/2024 COMPL ETE BLOOD COUNT monocyte,abs olute 0.6 10*3/ uL 0.0-1. 2 normal Not Available [facility] [address] [place] [address], [address], 05/09/2024 14:00:14 05/09/19 25 05/09/2024 COMPL ETE BLOOD COUNT eosinophil,a bsolute 0.0 10*3/ uL 0.0-0. 8 normal Not Available [facility] [address] [place] [address], [address], 05/09/2024 14:00:14 05/09/19 25 05/09/2024 COMPL ETE BLOOD COUNT basophil,abs olute 0.3 10*3/ uL 0.0-0. 3 normal Not Available [facility] [address] [place] [address], [address], 05/09/2024 14:00:14 05/09/19 25 05/09/2024 COMPL ETE BLOOD COUNT % neutrophils 15.0 % 42.0-7 8.0 low Not Available [facility] [address] [place] [address], [address], 05/09/2024 14:00:14 05/09/19 25 05/09/2024 COMPL ETE BLOOD COUNT % lymphocytes 81.0 % 11.0-4 7.0 high Not Available [facility] [address] [place] [address], [address], 05/09/2024 14:00:14 05/09/19 25 05/09/2024 COMPL ETE BLOOD COUNT % monocytes 2.0 % 0.0-11 .0 normal Not Available [facility] [address] [place] [address], [address], 05/09/2024 14:00:14 05/09/19 25 05/09/2024 COMPL ETE BLOOD COUNT % eosinophils 0.0 % 0.0-7. 0 normal Not Available [facility] [address] [place] [address], [address], 05/09/2024 14:00:14 05/09/19 25 05/09/2024 COMPL ETE BLOOD COUNT % basophils 1.0 % 0.0-3. 0 normal Not Available [facility] [address] [place] [address], [address], 05/09/2024 14:00:14 05/09/19 25 05/09/2024 COMPL ETE BLOOD COUNT nucleated red cells 0.2 % 0.0-0. 9 normal Not Available [facility] [address] [place] [address], [address], 05/09/2024 14:00:14 05/09/19 25 05/09/2024 COMPL ETE BLOOD COUNT nucleated RBCs, absolute 0.05 10*3/ uL not estab. normal Not Available [facility] [address] [place] [address], [address], 05/09/2024 14:00:14 08/09/19 25 08/08/2024 LDH LDH 201 U/L 135-23 3 normal Not Available [facility] [address] [place] [address], [address], 08/08/2024 14:09:10 08/09/19 25 08/08/2024 MANUA L DIFFE RENTI AL % band neutrophils 0.0 % 0.0-7. 0 normal Not Available [facility] [address] [place] [address], [address], 08/08/2024 13:43:58 08/09/19 25 08/08/2024 MANUA L DIFFE RENTI AL % atypical lymphocytes 0 % 0-1 normal Not Available [facility] [address] [place] [address], [address], 08/08/2024 13:43:58 08/09/19 25 08/08/2024 MANUA L DIFFE RENTI AL % metamyelocyt es 0 % 0-1 normal Not Available [facility] [address] [place] [address], [address], 08/08/2024 13:43:58 08/09/19 25 08/08/2024 MANUA L DIFFE RENTI AL % myelocytes 0 % 0-1 normal Not Available [facility] [address] [place] [address], [address], 08/08/2024 13:43:58 08/09/19 25 08/08/2024 MANUA L DIFFE RENTI AL % promyelocyte s 0 % 0 normal Not Available [facility] [address] [place] [address], [address], 08/08/2024 13:43:58 08/09/19 25 08/08/2024 MANUA L DIFFE RENTI AL % blast 0 % 0 normal Not Available [facility] [address] [place] [address], [address], 08/08/2024 13:43:58 08/09/19 25 08/08/2024 MANUA L DIFFE RENTI AL nucleated red cells 0 /100{ WBC} 0-1 normal Not Available [facility] [address] [place] [address], [address], 08/08/2024 13:43:58 08/09/19 25 08/08/2024 MANUA L DIFFE RENTI AL smudge cells 0 /100{ WBC} 0 normal Not Available [facility] [address] [place] [address], [address], 08/08/2024 13:43:58 08/09/19 25 08/08/2024 MANUA L DIFFE RENTI AL platelet morphology NORMAL normal Not Available [facility] [address] [place] [address], [address], 08/08/2024 13:43:58 08/09/19 25 08/08/2024 MANUA L DIFFE RENTI AL polychromasi a SLIGHT abnormal Not Available [facility] [address] [place] [address], [address], 08/08/2024 13:43:58 08/09/19 25 08/08/2024 MANUA L DIFFE RENTI AL ovalocytes SLIGHT abnormal Not Available [facility] [address] [place] [address], [address], 08/08/2024 13:43:58 08/09/19 25 08/08/2024 COMPL ETE BLOOD COUNT white blood cells 39.1 10*3/ uL 3.8-10 .8 high RESUL TS RECHE CKED Not Available [facility] [address] [place] [address], [address], 08/08/2024 13:43:56 08/09/19 25 08/08/2024 COMPL ETE BLOOD COUNT red blood cells 3.87 10*6/ uL 3.80-5 .20 normal Not Available [facility] [address] [place] [address], [address], 08/08/2024 13:43:56 08/09/19 25 08/08/2024 COMPL ETE BLOOD COUNT hemoglobin 11.5 g/dL 12.0-1 6.0 low Not Available [facility] [address] [place] [address], [address], 08/08/2024 13:43:56 08/09/19 25 08/08/2024 COMPL ETE BLOOD COUNT hematocrit 36.2 % 35.0-4 7.0 normal Not Available [facility] [address] [place] [address], [address], 08/08/2024 13:43:56 08/09/19 25 08/08/2024 COMPL ETE BLOOD COUNT MCV 94 fL 80-100 normal Not Available [facility] [address] [place] [address], [address], 08/08/2024 13:43:56 08/09/19 25 08/08/2024 COMPL ETE BLOOD COUNT MCH 30 pg 26-35 normal Not Available [facility] [address] [place] [address], [address], 08/08/2024 13:43:56 08/09/19 25 08/08/2024 COMPL ETE BLOOD COUNT MCHC 32 g/dL 32-36 normal Not Available [facility] [address] [place] [address], [address], 08/08/2024 13:43:56 08/09/19 25 08/08/2024 COMPL ETE BLOOD COUNT RDW 18.2 % 11.0-1 5.0 high Not Available [facility] [address] [place] [address], [address], 08/08/2024 13:43:56 08/09/19 25 08/08/2024 COMPL ETE BLOOD COUNT MPV 7.4 fL 6.2-10 .5 normal Not Available [facility] [address] [place] [address], [address], 08/08/2024 13:43:56 08/09/19 25 08/08/2024 COMPL ETE BLOOD COUNT platelet count 123 10*3/ uL 150-40 0 low Not Available [facility] [address] [place] [address], [address], 08/08/2024 13:43:56 08/09/19 25 08/08/2024 COMPL ETE BLOOD COUNT neutrophil,a bsolute 4.7 10*3/ uL 1.6-8. 4 normal Not Available [facility] [address] [place] [address], [address], 08/08/2024 13:43:56 08/09/19 25 08/08/2024 COMPL ETE BLOOD COUNT lymphocyte,a bsolute 33.6 10*3/ uL 0.4-5. 1 high Not Available [facility] [address] [place] [address], [address], 08/08/2024 13:43:56 08/09/19 25 08/08/2024 COMPL ETE BLOOD COUNT monocyte,abs olute 0.8 10*3/ uL 0.0-1. 2 normal Not Available [facility] [address] [place] [address], [address], 08/08/2024 13:43:56 08/09/19 25 08/08/2024 COMPL ETE BLOOD COUNT eosinophil,a bsolute 0.0 10*3/ uL 0.0-0. 8 normal Not Available [facility] [address] [place] [address], [address], 08/08/2024 13:43:56 08/09/19 25 08/08/2024 COMPL ETE BLOOD COUNT basophil,abs olute 0.0 10*3/ uL 0.0-0. 3 normal Not Available [facility] [address] [place] [address], [address], 08/08/2024 13:43:56 08/09/19 25 08/08/2024 COMPL ETE BLOOD COUNT % neutrophils 12.0 % 42.0-7 8.0 low Not Available [facility] [address] [place] [address], [address], 08/08/2024 13:43:56 08/09/19 25 08/08/2024 COMPL ETE BLOOD COUNT % lymphocytes 86.0 % 11.0-4 7.0 high Not Available [facility] [address] [place] [address], [address], 08/08/2024 13:43:56 08/09/19 25 08/08/2024 COMPL ETE BLOOD COUNT % monocytes 2.0 % 0.0-11 .0 normal Not Available [facility] [address] [place] [address], [address], 08/08/2024 13:43:56 08/09/19 25 08/08/2024 COMPL ETE BLOOD COUNT % eosinophils 0.0 % 0.0-7. 0 normal Not Available [facility] [address] [place] [address], [address], 08/08/2024 13:43:56 08/09/19 25 08/08/2024 COMPL ETE BLOOD COUNT % basophils 0.0 % 0.0-3. 0 normal Not Available [facility] [address] [place] [address], [address], 08/08/2024 13:43:56 08/09/19 25 08/08/2024 COMPL ETE BLOOD COUNT nucleated red cells 0.2 % 0.0-0. 9 normal Not Available [facility] [address] [place] [address], [address], 08/08/2024 13:43:56 08/09/19 25 08/08/2024 COMPL ETE BLOOD COUNT nucleated RBCs, absolute 0.07 10*3/ uL not estab. normal Not Available [facility] [address] [place] [address], [address], 08/08/2024 13:43:56 08/09/19 25 08/08/2024 URIC ACID uric acid 5.5 mg/dL 2.4-5. 7 normal Refer ence range s are based on popul [facility] norms and do not neces leesa slater late with treat ment caitlyn ts. In patie nts with an estab lishe d diagn osis of gout under going Urate Lower ing Thera py (ULT) , the 2011 Michelle puentes [facility] atolo gy James hanna s for Manag ement of Gout recom mend a targe t uric acid level of < 6 mg/dL in all patie nts, or lower in certa in circu mstan my. [facility] Vol 64 No 10, 2011 Michelle puentes [facility] of Rheum atolo gy ----- ----- ----- ----- ----- ----- ----- ----- ----- ----- ----- ---- Not Available [facility] [address] [place] [address], [address], 08/08/2024 13:40:10 08/09/19 25 08/08/2024 COMP. METAB OLIC PANEL glucose 123 mg/dL 74-100 high Not Available [facility] [address] [place] [address], [address], 08/08/2024 13:40:09 08/09/19 25 08/08/2024 COMP. METAB OLIC PANEL blood urea nitrogen 23 mg/dL 6-20 high Not Available [facility] [address] [place] [address], [address], 08/08/2024 13:40:09 08/09/19 25 08/08/2024 COMP. METAB OLIC PANEL creatinine 1.27 mg/dL 0.50-0 .95 high Not Available [facility] [address] [place] [address], [address], 08/08/2024 13:40:09 08/09/19 25 08/08/2024 COMP. METAB OLIC PANEL BUN/creatini ne ratio 18 (calc ) 10-20 normal Not Available [facility] [address] [place] [address], [address], 08/08/2024 13:40:09 08/09/19 25 08/08/2024 COMP. METAB OLIC PANEL sodium 135 mmol/ L 136-14 5 low Not Available [facility] [address] [place] [address], [address], 08/08/2024 13:40:09 08/09/19 25 08/08/2024 COMP. METAB OLIC PANEL potassium 4.5 mmol/ L 3.4-5. 0 normal Not Available [facility] [facility] [address] [place] [address], [address], 08/08/2024 13:40:09 08/09/19 25 08/08/2024 COMP. METAB OLIC PANEL chloride 100 mmol/ L 98-107 normal Not Available [facility] [address] [place] [address], [address], 08/08/2024 13:40:09 08/09/19 25 08/08/2024 COMP. METAB OLIC PANEL carbon dioxide 23 mmol/ L 22-31 normal Not Available [facility] [address] [place] [address], [address], 08/08/2024 13:40:09 08/09/19 25 08/08/2024 COMP. METAB OLIC PANEL anion gap 12 (calc ) 7-25 normal Not Available [facility] [address] [place] [address], [address], 08/08/2024 13:40:09 08/09/19 25 08/08/2024 COMP. METAB OLIC PANEL calcium 9.2 mg/dL 8.6-10 .2 normal Not Available [facility] [address] [place] [address], [address], 08/08/2024 13:40:09 08/09/19 25 08/08/2024 COMP. METAB OLIC PANEL total protein 7.0 g/dL 6.4-8. 3 normal Not Available [facility] [address] [place] [address], [address], 08/08/2024 13:40:09 08/09/19 25 08/08/2024 COMP. METAB OLIC PANEL albumin 4.3 g/dL 3.5-5. 2 normal Not Available [facility] [address] [place] [address], [address], 08/08/2024 13:40:09 08/09/19 25 08/08/2024 COMP. METAB OLIC PANEL globulin 2.7 1.5-4. 5 normal Not Available [facility] [address] [place] [address], [address], 08/08/2024 13:40:09 08/09/19 25 08/08/2024 COMP. METAB OLIC PANEL albumin/glob ulin ratio 1.6 (calc ) 1.1-2. 5 normal Not Available [facility] [address] [place] [address], [address], 08/08/2024 13:40:09 08/09/19 25 08/08/2024 COMP. METAB OLIC PANEL bilirubin, total 0.7 mg/dL 0.1-1. 2 normal Not Available [facility] [address] [place] [address], [address], 08/08/2024 13:40:09 08/09/19 25 08/08/2024 COMP. METAB OLIC PANEL alkaline phosphatase 82 U/L 30-121 normal Not Available [facility] [address] [place] [address], [address], 08/08/2024 13:40:09 08/09/19 25 08/08/2024 COMP. METAB OLIC PANEL AST 14 U/L 0-32 normal Not Available [facility] [address] [place] [address], [address], 08/08/2024 13:40:09 08/09/19 25 08/08/2024 COMP. METAB OLIC PANEL ALT 8 U/L 0-33 normal Not Available [facility] [address] [place] [address], [address], 08/08/2024 13:40:09 08/09/19 25 08/08/2024 COMP. METAB OLIC PANEL GFR 42 >= 60 abnormal NOT E New calcu latio n for GFR (CKD- EPI 2020) is formu lated witho ut race adjus tment facto rs at the recom menda tion of the [facility] [employer] [employer] [facility] and Michelle puentes [facility] ty of Nephr ology . This calcu latio n has not been valid ated in pregn ant women . For pedia tric patie nts refer to https ://[email or web address] rg/pr ofess ional s/KDO QI/gf r_cal culat orPed Not Available [facility] [address] [place], [address], 08/08/2024 13:40:09 11/08/19 25 11/07/2024 URIC ACID uric acid 7.4 mg/dL 2.4-5. 7 high Refer ence range s are based on popul ation norms and do not neces leesa slater late with treat ment targe ts. In patie nts with an estab lishe d diagn osis of gout under going Urate Lower ing Thera py (ULT) , the 2011 Michelle puentes Col[facility] ge of Rheum atolo gy Guid cyndi s for Manag ement of Gout recom mend a targe t uric acid level of < 6 mg/dL in all patie nts, or lower in certa in circu mstan my. Arthr itis Care and Res[facility] Vol 64 No 10, 2011 Michelle puentes Colle ge of Rheum atolo gy ----- ----- ----- ----- ----- ----- ----- ----- ----- ----- ----- ---- Not Available [facility] [address] [facility], [place], [address], 11/07/2024 14:30:28 11/08/19 25 11/07/2024 COMP. METAB OLIC PANEL glucose 141 mg/dL 74-100 high Not Available [facility] [address] [place] [address], [address], 11/07/2024 14:30:27 11/08/19 25 11/07/2024 COMP. METAB OLIC PANEL blood urea nitrogen 17 mg/dL 6-20 normal Not Available [facility] [address] [place] [address], [address], 11/07/2024 14:30:27 11/08/19 25 11/07/2024 COMP. METAB OLIC PANEL creatinine 1.54 mg/dL 0.50-0 .95 high Not Available [facility] [address] [place] [address], [address], 11/07/2024 14:30:27 11/08/19 25 11/07/2024 COMP. METAB OLIC PANEL BUN/creatini ne ratio 11 (calc ) 10-20 normal Not Available [facility] [address] [place] [address], [address], 11/07/2024 14:30:27 11/08/19 25 11/07/2024 COMP. METAB OLIC PANEL sodium 135 mmol/ L 136-14 5 low Not Available [facility] [address] [place] [address], [address], 11/07/2024 14:30:27 11/08/19 25 11/07/2024 COMP. METAB OLIC PANEL potassium 4.1 mmol/ L 3.4-5. 0 normal Not Available [facility] [address] [place] [address], [address], 11/07/2024 14:30:27 11/08/19 25 11/07/2024 COMP. METAB OLIC PANEL chloride 100 mmol/ L 98-107 normal Not Available [facility] [address] [place] [address], [address], 11/07/2024 14:30:27 11/08/19 25 11/07/2024 COMP. METAB OLIC PANEL carbon dioxide 21 mmol/ L 22-31 low Not Available [facility] [address] [place] [address], [address], 11/07/2024 14:30:27 11/08/19 25 11/07/2024 COMP. METAB OLIC PANEL anion gap 14 (calc ) 7-25 normal Not Available [facility] [address] [place] [address], [address], 11/07/2024 14:30:27 11/08/19 25 11/07/2024 COMP. METAB OLIC PANEL calcium 9.2 mg/dL 8.6-10 .2 normal Not Available [facility] [address] [place] [address], [address], 11/07/2024 14:30:27 11/08/19 25 11/07/2024 COMP. METAB OLIC PANEL total protein 6.5 g/dL 6.4-8. 3 normal Not Available [facility] [address] [place] [address], [address], 11/07/2024 14:30:27 11/08/19 25 11/07/2024 COMP. METAB OLIC PANEL albumin 4.2 g/dL 3.5-5. 2 normal Not Available [facility] [address] [place] [address], [address], 11/07/2024 14:30:27 11/08/19 25 11/07/2024 COMP. METAB OLIC PANEL globulin 2.3 1.5-4. 5 normal Not Available [facility] [address] [place] [address], [address], 11/07/2024 14:30:27 11/08/19 25 11/07/2024 COMP. METAB OLIC PANEL albumin/glob ulin ratio 1.8 (calc ) 1.1-2. 5 normal Not Available [facility] [address] [place] [address], [address], 11/07/2024 14:30:27 11/08/19 25 11/07/2024 COMP. METAB OLIC PANEL bilirubin, total 1.1 mg/dL 0.1-1. 2 normal Not Available [facility] [address] [place] [address], [address], 11/07/2024 14:30:27 11/08/19 25 11/07/2024 COMP. METAB OLIC PANEL alkaline phosphatase 86 U/L 30-121 normal Not Available [facility] [address] [place], [address], 11/07/2024 14:30:27 11/08/19 25 11/07/2024 COMP. METAB OLIC PANEL AST 17 U/L 0-32 normal Not Available [facility] [address] [place] [address], [address], 11/07/2024 14:30:27 11/08/19 25 11/07/2024 COMP. METAB OLIC PANEL ALT 7 U/L 0-33 normal Not Available [facility] [address] [place] [address], [address], 11/07/2024 14:30:27 11/08/19 25 11/07/2024 COMP. METAB OLIC PANEL eGFR 34 >= 60 abnormal NOT E New calcu [...] patie nts refer to https ://heike [email or web address] rg/deep adorno s/YARIO QI/gf r_cal culat orPed Not Available [facility] [address] [place] [address], [address], 11/07/2024 14:30:27 11/08/19 25 11/07/2024 LDH LDH 188 U/L 135-23 3 normal Not Available [facility] [address] [place] [address], [address], 11/07/2024 14:10:09 11/08/19 25 11/07/2024 MANUA L DIFFE RENTI AL % band neutrophils 0.0 % 0.0-7. 0 normal Not Available [facility] [address] [place] [address], [address], 11/07/2024 13:45:05 11/08/19 25 11/07/2024 MANUA L DIFFE RENTI AL % atypical lymphocytes 0 % 0-1 normal Not Available [facility] [address] [place] [address], [address], 11/07/2024 13:45:05 11/08/19 25 11/07/2024 MANUA L DIFFE RENTI AL % metamyelocyt es 0 % 0-1 normal Not Available [facility] [address] [place] [address], [address], 11/07/2024 13:45:05 11/08/19 25 11/07/2024 MANUA L DIFFE RENTI AL % myelocytes 0 % 0-1 normal Not Available [facility] [address] [place] [address], [address], 11/07/2024 13:45:05 11/08/19 25 11/07/2024 MANUA L DIFFE RENTI AL % promyelocyte s 0 % 0 normal Not Available [facility] [address] [place] [address], [address], 11/07/2024 13:45:05 11/08/19 25 11/07/2024 MANUA L DIFFE RENTI AL % blast 0 % 0 normal Not Available [facility] [address] [place] [address], [address], 11/07/2024 13:45:05 11/08/19 25 11/07/2024 MANUA L DIFFE RENTI AL nucleated red cells 0 /100{ WBC} 0-1 normal Not Available [facility] [address] [place] [address], [address], 11/07/2024 13:45:05 11/08/19 25 11/07/2024 MANUA L DIFFE RENTI AL smudge cells 0 /100{ WBC} 0 normal Not Available [facility] [address] [place] [address], [address], 11/07/2024 13:45:05 11/08/19 25 11/07/2024 MANUA L DIFFE RENTI AL platelet morphology NORMAL normal Not Available [facility] [address] [place] [address], [address], 11/07/2024 13:45:05 11/08/19 25 11/07/2024 MANUA L DIFFE RENTI AL polychromasi a SLIGHT abnormal Not Available [facility] [address] [place] [address], [address], 11/07/2024 13:45:05 11/08/19 25 11/07/2024 MANUA L DIFFE RENTI AL ovalocytes SLIGHT abnormal Not Available [facility] [address] [place] [address], [address], 11/07/2024 13:45:05 11/08/19 25 11/07/2024 COMPL ETE BLOOD COUNT white blood cells 63.9 10*3/ uL 3.8-10 .8 high Not Available [facility] [address] [place] [address], [address], 11/07/2024 13:45:03 11/08/19 25 11/07/2024 COMPL ETE BLOOD COUNT red blood cells 3.58 10*6/ uL 3.80-5 .20 low Not Available [facility] [address] [place] [address], [address], 11/07/2024 13:45:03 11/08/19 25 11/07/2024 COMPL ETE BLOOD COUNT hemoglobin 10.7 g/dL 12.0-1 6.0 low Not Available [facility] [address] [place] [address], [address], 11/07/2024 13:45:03 11/08/19 25 11/07/2024 COMPL ETE BLOOD COUNT hematocrit 33.3 % 35.0-4 7.0 low Not Available [facility] [address] [place] [address], [address], 11/07/2024 13:45:03 11/08/19 25 11/07/2024 COMPL ETE BLOOD COUNT MCV 93 fL 80-100 normal Not Available [facility] [address] [place] [address], [address], 11/07/2024 13:45:03 11/08/19 25 11/07/2024 COMPL ETE BLOOD COUNT MCH 30 pg 26-35 normal Not Available [facility] [address] [place] [address], [address], 11/07/2024 13:45:03 11/08/19 25 11/07/2024 COMPL ETE BLOOD COUNT MCHC 32 g/dL 32-36 normal Not Available [facility] [address] [place] [address], [address], 11/07/2024 13:45:03 11/08/19 25 11/07/2024 COMPL ETE BLOOD COUNT RDW 18.0 % 11.0-1 5.0 high Not Available [facility] [address] [place] [address], [address], 11/07/2024 13:45:03 11/08/19 25 11/07/2024 COMPL ETE BLOOD COUNT MPV 7.5 fL 6.2-10 .5 normal Not Available [facility] [address] [place] [address], [address], 11/07/2024 13:45:03 11/08/19 25 11/07/2024 COMPL ETE BLOOD COUNT platelet count 124 10*3/ uL 150-40 0 low Not Available [facility] [address] [place] [address], [address], 11/07/2024 13:45:03 11/08/19 25 11/07/2024 COMPL ETE BLOOD COUNT neutrophil,a bsolute 3.2 10*3/ uL 1.6-8. 4 normal Not Available [facility] [address] [place] [address], [address], 11/07/2024 13:45:03 11/08/19 25 11/07/2024 COMPL ETE BLOOD COUNT lymphocyte,a bsolute 59.4 10*3/ uL 0.4-5. 1 high Not Available [facility] [address] [place] [address], [address], 11/07/2024 13:45:03 11/08/19 25 11/07/2024 COMPL ETE BLOOD COUNT monocyte,abs olute 1.3 10*3/ uL 0.0-1. 2 high Not Available [facility] [address] [place] [address], [address], 11/07/2024 13:45:03 11/08/19 25 11/07/2024 COMPL ETE BLOOD COUNT eosinophil,a bsolute 0.0 10*3/ uL 0.0-0. 8 normal Not Available [facility] [address] [place] [address], [address], 11/07/2024 13:45:03 11/08/19 25 11/07/2024 COMPL ETE BLOOD COUNT basophil,abs olute 0.0 10*3/ uL 0.0-0. 3 normal Not Available [facility] [address] [place] [address], [address], 11/07/2024 13:45:03 11/08/19 25 11/07/2024 COMPL ETE BLOOD COUNT % neutrophils 5.0 % 42.0-7 8.0 low Not Available [facility] [address] [place] [address], [address], 11/07/2024 13:45:03 11/08/19 25 11/07/2024 COMPL ETE BLOOD COUNT % lymphocytes 93.0 % 11.0-4 7.0 high Not Available [facility] [address] [place] [address], [address], 11/07/2024 13:45:03 11/08/19 25 11/07/2024 COMPL ETE BLOOD COUNT % monocytes 2.0 % 0.0-11 .0 normal Not Available [facility] [address] [place] [address], [address], 11/07/2024 13:45:03 11/08/19 25 11/07/2024 COMPL ETE BLOOD COUNT % eosinophils 0.0 % 0.0-7. 0 normal Not Available [facility] [address] [place] [address], [address], 11/07/2024 13:45:03 11/08/19 25 11/07/2024 COMPL ETE BLOOD COUNT % basophils 0.0 % 0.0-3. 0 normal Not Available [facility] [address] [place] [address], [address], 11/07/2024 13:45:03 11/08/19 25 11/07/2024 COMPL ETE BLOOD COUNT nucleated red cells 0.1 % 0.0-0. 9 normal Not Available [facility] [address] [place] [address], [address], 11/07/2024 13:45:03 11/08/19 25 11/07/2024 COMPL ETE BLOOD COUNT nucleated RBCs, absolute 0.06 10*3/ uL not estab. normal Not Available [facility] [address] [place] [address], [address], 11/07/2024 13:45:03 11/15/19 25 11/14/2024 PROTH ROMBI N TIME prothrombin time 26.9 secon ds 9.0-11 .0 high NOTE: New refer ence range . Not Available [facility] [address] [place], [address], 11/14/2024 10:51:00 11/15/19 25 11/14/2024 PROTH ROMBI N TIME INR 2.8 2.0-3. 0 normal INR OF 2.0 TO 3.0 RECOM MARY D FOR: PROPH YLAXI S AND TREAT MENT OF VENOU S THROM BOSIS TREAT MENT OF PULMO NARY EMBOL ISM PREVE NTION OF SYSTE PATRICIO EMBOL ISM TISSU E HEART VALVE S, VALVU LAR HEART DISEA SE ACUTE MYOCA RDIAL INFAR CTION , ATRIA L FIBRI LLATI ON INR OF 2.5 TO 3.5 RECOM MARY D FOR: RECUR RENT SYSTE PATRICIO EMBOL ISM MECHA NICAL PROST HETIC VALVE S Not Available [facility] [address] [place], [address], 11/14/2024 10:51:00 12/13/19 25 12/12/2024 URIC ACID uric acid 5.9 mg/dL 2.4-5. 7 high Refer ence range [...] mstan my. [facility]r [facility] Vol 64 No 10, 2011 Michelle can Colle ge of Rheum atolo gy ----- ----- ----- ----- ----- ----- ----- ----- ----- ----- ----- ---- Not Available [facility] [address] [place], [address], 12/12/2024 11:10:15 12/13/19 25 12/12/2024 COMP. METAB OLIC PANEL glucose 127 mg/dL 74-100 high Not Available [facility] [address] [place] [address], [address], 12/12/2024 11:10:14 12/13/19 25 12/12/2024 COMP. METAB OLIC PANEL blood urea nitrogen 16 mg/dL 6-20 normal Not Available [facility] [address] [place] [address], [address], 12/12/2024 11:10:14 12/13/19 25 12/12/2024 COMP. METAB OLIC PANEL creatinine 1.30 mg/dL 0.50-0 .95 high Not Available [address], [address], 12/12/2024 11:10:14 12/13/19 25 12/12/2024 COMP. METAB OLIC PANEL BUN/creatini ne ratio 12 (calc ) 10-20 normal Not Available [facility] [address] [place] [address], [address], 12/12/2024 11:10:14 12/13/19 25 12/12/2024 COMP. METAB OLIC PANEL sodium 138 mmol/ L 136-14 5 normal Not Available [facility] [address] [place] [address], [address], 12/12/2024 11:10:14 12/13/19 25 12/12/2024 COMP. METAB OLIC PANEL potassium 4.3 mmol/ L 3.4-5. 0 normal Not Available [facility] [address] [place] [address], [address], 12/12/2024 11:10:14 12/13/19 25 12/12/2024 COMP. METAB OLIC PANEL chloride 105 mmol/ L 98-107 normal Not Available [facility] [address] [place] [address], [address], 12/12/2024 11:10:14 12/13/19 25 12/12/2024 COMP. METAB OLIC PANEL carbon dioxide 23 mmol/ L 22-31 normal Not Available [facility] [address] [place] [address], [address], 12/12/2024 11:10:14 12/13/19 25 12/12/2024 COMP. METAB OLIC PANEL anion gap 10 (calc ) 7-25 normal Not Available [facility] [address] [place] [address], [address], 12/12/2024 11:10:14 12/13/19 25 12/12/2024 COMP. METAB OLIC PANEL calcium 8.9 mg/dL 8.6-10 .2 normal Not Available [facility] [address] [place] [address], [address], 12/12/2024 11:10:14 12/13/19 25 12/12/2024 COMP. METAB OLIC PANEL total protein 6.1 g/dL 6.4-8. 3 low Not Available [facility] [address] [place] [address], [address], 12/12/2024 11:10:14 12/13/19 25 12/12/2024 COMP. METAB OLIC PANEL albumin 4.0 g/dL 3.5-5. 2 normal Not Available [facility] [address] [place] [address], [address], 12/12/2024 11:10:14 12/13/19 25 12/12/2024 COMP. METAB OLIC PANEL globulin 2.1 1.5-4. 5 normal Not Available [facility] [address] [place] [address], [address], 12/12/2024 11:10:14 12/13/19 25 12/12/2024 COMP. METAB OLIC PANEL albumin/glob ulin ratio 1.9 (calc ) 1.1-2. 5 normal Not Available [facility] [address] [place], [address], 12/12/2024 11:10:14 12/13/19 25 12/12/2024 COMP. METAB OLIC PANEL bilirubin, total 0.5 mg/dL 0.1-1. 0 normal NOTE: New refer ence range . Not Available [facility] [address] [place] [address], [address], 12/12/2024 11:10:14 12/13/19 25 12/12/2024 COMP. METAB OLIC PANEL alkaline phosphatase 83 U/L 30-121 normal Not Available [facility] [address] [place] [address], [address], 12/12/2024 11:10:14 12/13/19 25 12/12/2024 COMP. METAB OLIC PANEL AST 18 U/L 0-32 normal Not Available [facility] [address] [place] [address], [address], 12/12/2024 11:10:14 12/13/19 25 12/12/2024 COMP. METAB OLIC PANEL ALT 13 U/L 0-33 normal Not Available [facility] [address] [place] [address], [address], 12/12/2024 11:10:14 12/13/19 25 12/12/2024 COMP. METAB OLIC PANEL eGFR 41 >= 60 abnormal NOT E New calcu latio n for GFR (CKD- EPI 2020) is formu lated witho ut race adjus tment facto rs at the recom menda tion of the Lina Campoverde y Seth atcatherine and Michelle Caldera ty of Nephr ology . This calcu latio n has not been valid ated in pregn ant women . For pedia tric patie nts refer to https ://heike [email or web address] rg/pr ofess ional s/KDO QI/gf r_cal culat orPed Not Available [facility] [address] [place] [address], [address], 12/12/2024 11:10:14 12/13/19 25 12/12/2024 LDH LDH 157 U/L 135-23 3 normal Not Available [facility] [address] [place] [address], [address], 12/12/2024 11:09:58 12/13/19 25 12/12/2024 COMPL ETE BLOOD COUNT white blood cells 5.9 10*3/ uL 3.8-10 .8 normal Not Available [facility] [address] [place] [address], [address], 12/12/2024 10:44:46 12/13/19 25 12/12/2024 COMPL ETE BLOOD COUNT red blood cells 3.54 10*6/ uL 3.80-5 .20 low Not Available [facility] [address] [place] [address], [address], 12/12/2024 10:44:46 12/13/19 25 12/12/2024 COMPL ETE BLOOD COUNT hemoglobin 10.8 g/dL 12.0-1 6.0 low Not Available [facility] [address] [place] [address], [address], 12/12/2024 10:44:46 12/13/19 25 12/12/2024 COMPL ETE BLOOD COUNT hematocrit 32.1 % 35.0-4 7.0 low Not Available [facility] [address] [place] [address], [address], 12/12/2024 10:44:46 12/13/19 25 12/12/2024 COMPL ETE BLOOD COUNT MCV 91 fL 80-100 normal Not Available [facility] [address] [place] [address], [address], 12/12/2024 10:44:46 12/13/19 25 12/12/2024 COMPL ETE BLOOD COUNT MCH 31 pg 26-35 normal Not Available [facility] [address] [place] [address], [address], 12/12/2024 10:44:46 12/13/19 25 12/12/2024 COMPL ETE BLOOD COUNT MCHC 34 g/dL 32-36 normal Not Available [facility] [address] [place] [address], [address], 12/12/2024 10:44:46 12/13/19 25 12/12/2024 COMPL ETE BLOOD COUNT RDW 17.4 % 11.0-1 5.0 high Not Available [facility] [address] [place] [address], [address], 12/12/2024 10:44:46 12/13/19 25 12/12/2024 COMPL ETE BLOOD COUNT MPV 7.7 fL 6.2-10 .5 normal Not Available [facility] [address] [place] [address], [address], 12/12/2024 10:44:46 12/13/19 25 12/12/2024 COMPL ETE BLOOD COUNT platelet count 67 10*3/ uL 150-40 0 low Not Available [facility] [address] [place] [address], [address], 12/12/2024 10:44:46 12/13/19 25 12/12/2024 COMPL ETE BLOOD COUNT neutrophil,a bsolute 2.6 10*3/ uL 1.6-8. 4 normal Not Available [facility] [address] [place] [address], [address], 12/12/2024 10:44:46 12/13/19 25 12/12/2024 COMPL ETE BLOOD COUNT lymphocyte,a bsolute 2.8 10*3/ uL 0.4-5. 1 normal Not Available [facility] [address] [place] [address], [address], 12/12/2024 10:44:46 12/13/19 25 12/12/2024 COMPL ETE BLOOD COUNT monocyte,abs olute 0.4 10*3/ uL 0.0-1. 2 normal Not Available [facility] [address] [place] [address], [address], 12/12/2024 10:44:46 12/13/19 25 12/12/2024 COMPL ETE BLOOD COUNT eosinophil,a bsolute 0.1 10*3/ uL 0.0-0. 8 normal Not Available [facility] [address] [place] [address], [address], 12/12/2024 10:44:46 12/13/19 25 12/12/2024 COMPL ETE BLOOD COUNT basophil,abs olute 0.0 10*3/ uL 0.0-0. 3 normal Not Available [facility] [address] [place] [address], [phone], 12/12/2024 10:44:46 12/13/19 25 12/12/2024 COMPL ETE BLOOD COUNT % neutrophils 44.5 % 42.0-7 8.0 normal Not Available [facility] [address] [place] [address], [address], 12/12/2024 10:44:46 12/13/19 25 12/12/2024 COMPL ETE BLOOD COUNT % lymphocytes 47.4 % 11.0-4 7.0 high Not Available [facility] [address] [place] [address], [address], 12/12/2024 10:44:46 12/13/19 25 12/12/2024 COMPL ETE BLOOD COUNT % monocytes 6.1 % 0.0-11 .0 normal Not Available [facility] [address] [place] [address], [address], 12/12/2024 10:44:46 12/13/19 25 12/12/2024 COMPL ETE BLOOD COUNT % eosinophils 1.6 % 0.0-7. 0 normal Not Available [facility] [address] [place] [address], [address], 12/12/2024 10:44:46 12/13/19 25 12/12/2024 COMPL ETE BLOOD COUNT % basophils 0.4 % 0.0-3. 0 normal Not Available [facility] [address] [place] [address], [address], 12/12/2024 10:44:46 12/13/19 25 12/12/2024 COMPL ETE BLOOD COUNT nucleated red cells 0.0 % 0.0-0. 9 normal Not Available [facility] [address] [place] [address], [address], 12/12/2024 10:44:46 12/13/19 25 12/12/2024 COMPL ETE BLOOD COUNT nucleated RBCs, absolute 0.00 10*3/ uL not estab. normal Not Available [facility] [address] [place] [address], [address], 12/12/2024 10:44:46 01/10/20 25 01/09/2025 HEPAT ITIS PANEL hepatitis A Ab, IgM NONREA CTIVE nonrea ctive normal Not Available [facility] [address] [place] [address], [address], 01/09/2025 13:19:11 01/10/20 25 01/09/2025 HEPAT ITIS PANEL hepatitis B surface Ag NONREA CTIVE nonrea ctive normal Not Available [facility] [address] [place] [address], [address], 01/09/2025 13:19:11 01/10/20 25 01/09/2025 HEPAT ITIS PANEL hepatitis B core Ab,IgM NONREA CTIVE nonrea ctive normal Not Available [facility] [address] [place] [address], [address], 01/09/2025 13:19:11 01/10/20 25 01/09/2025 HEPAT ITIS PANEL hcab, reflex viral RNA qt NONREA CTIVE nonrea ctive normal Antib odies to HCV were not detec daniel; does not exclu de the possi bilit y of expos ure to HCV. Not Available [facility] [address] [place] [address], [address], 01/09/2025 13:19:11 01/10/2001/09/2025 LDH LDH 157 U/L 135-23 3 normal Not Available [facility] [address] [place] [address], [address], 01/09/2025 12:04:06 01/10/20 25 01/09/2025 MANUA L DIFFE RENTI AL % band neutrophils 1.0 % 0.0-7. 0 normal Not Available [facility] [address] [place] [address], [address], 01/09/2025 11:55:18 01/10/20 25 01/09/2025 MANUA L DIFFE RENTI AL % atypical lymphocytes 0 % 0-1 normal Not Available [facility] [address] [place] [address], [address], 01/09/2025 11:55:18 01/10/20 25 01/09/2025 MANUA L DIFFE RENTI AL % metamyelocyt es 0 % 0-1 normal Not Available [facility] [address] [place] [address], [address], 01/09/2025 11:55:18 01/10/20 25 01/09/2025 MANUA L DIFFE RENTI AL % myelocytes 0 % 0-1 normal Not Available [facility] [address] [place] [address], [address], 01/09/2025 11:55:18 01/10/20 25 01/09/2025 MANUA L DIFFE RENTI AL % promyelocyte s 0 % 0 normal Not Available [facility] [address] [place] [address], [address], 01/09/2025 11:55:18 01/10/20 25 01/09/2025 MANUA L DIFFE RENTI AL % blast 0 % 0 normal Not Available [facility] [address] [place] [address], [address], 01/09/2025 11:55:18 01/10/20 25 01/09/2025 MANUA L DIFFE RENTI AL nucleated red cells 0 /100{ WBC} 0-1 normal Not Available [facility] [address] [place] [address], [address], 01/09/2025 11:55:18 01/10/20 25 01/09/2025 MANUA L DIFFE RENTI AL smudge cells 2 /100{ WBC} 0 abnormal Not Available [facility] [address] [place] [address], [address], 01/09/2025 11:55:18 01/10/20 25 01/09/2025 MANUA L DIFFE RENTI AL platelet morphology NORMAL normal Not Available [facility] [address] [place] [address], [address], 01/09/2025 11:55:18 01/10/20 25 01/09/2025 MANUA L DIFFE RENTI AL polychromasi a SLIGHT abnormal Not Available [facility] [address] [place] [address], [address], 01/09/2025 11:55:18 01/10/20 25 01/09/2025 MANUA L DIFFE RENTI AL ovalocytes SLIGHT abnormal Not Available [facility] [address] [place] [address], [address], 01/09/2025 11:55:18 01/10/20 25 01/09/2025 COMPL ETE BLOOD COUNT white blood cells 6.8 10*3/ uL 3.8-10 .8 normal Not Available [facility] [address] [place] [address], [address], 01/09/2025 11:55:16 01/10/20 25 01/09/2025 COMPL ETE BLOOD COUNT red blood cells 3.61 10*6/ uL 3.80-5 .20 low Not Available [facility] [address] [place] [address], [address], 01/09/2025 11:55:16 01/10/20 25 01/09/2025 COMPL ETE BLOOD COUNT hemoglobin 11.0 g/dL 12.0-1 6.0 low Not Available [facility] [address] [place] [address], [address], 01/09/2025 11:55:16 01/10/20 25 01/09/2025 COMPL ETE BLOOD COUNT hematocrit 33.1 % 35.0-4 7.0 low Not Available [facility] [address] [place] [address], [address], 01/09/2025 11:55:16 01/10/20 25 01/09/2025 COMPL ETE BLOOD COUNT MCV 92 fL 80-100 normal Not Available [facility] [address] [place] [address], [address], 01/09/2025 11:55:16 01/10/20 25 01/09/2025 COMPL ETE BLOOD COUNT MCH 31 pg 26-35 normal Not Available [facility] [address] [place] [address], [address], 01/09/2025 11:55:16 01/10/20 25 01/09/2025 COMPL ETE BLOOD COUNT MCHC 33 g/dL 32-36 normal Not Available [facility] [address] [place] [address], [address], 01/09/2025 11:55:16 01/10/20 25 01/09/2025 COMPL ETE BLOOD COUNT RDW 17.4 % 11.0-1 5.0 high Not Available [facility] [address] [place] [address], [address], 01/09/2025 11:55:16 01/10/20 25 01/09/2025 COMPL ETE BLOOD COUNT MPV 7.3 fL 6.2-10 .5 normal Not Available [facility] [address] [place] [address], [address], 01/09/2025 11:55:16 01/10/20 25 01/09/2025 COMPL ETE BLOOD COUNT platelet count 123 10*3/ uL 150-40 0 low Not Available [facility] [address] [place] [address], [address], 01/09/2025 11:55:16 01/10/20 25 01/09/2025 COMPL ETE BLOOD COUNT neutrophil,a bsolute 2.7 10*3/ uL 1.6-8. 4 normal Not Available [facility] [address] [place] [address], [address], 01/09/2025 11:55:16 01/10/20 25 01/09/2025 COMPL ETE BLOOD COUNT lymphocyte,a bsolute 3.5 10*3/ uL 0.4-5. 1 normal Not Available [facility] [address] [place] [address], [address], 01/09/2025 11:55:16 01/10/20 25 01/09/2025 COMPL ETE BLOOD COUNT monocyte,abs olute 0.3 10*3/ uL 0.0-1. 2 normal Not Available [facility] [address] [place] [address], [address], 01/09/2025 11:55:16 01/10/20 25 01/09/2025 COMPL ETE BLOOD COUNT eosinophil,a bsolute 0.2 10*3/ uL 0.0-0. 8 normal Not Available [facility] [address] [place] [address], [address], 01/09/2025 11:55:16 01/10/20 25 01/09/2025 COMPL ETE BLOOD COUNT basophil,abs olute 0.0 10*3/ uL 0.0-0. 3 normal Not Available [facility] [address] [place] [address], [address], 01/09/2025 11:55:16 01/10/20 25 01/09/2025 COMPL ETE BLOOD COUNT % neutrophils 39.0 % 42.0-7 8.0 low Not Available [facility] [address] [place] [address], [address], 01/09/2025 11:55:16 01/10/20 25 01/09/2025 COMPL ETE BLOOD COUNT % lymphocytes 52.0 % 11.0-4 7.0 high Not Available [facility] [address] [place] [address], [address], 01/09/2025 11:55:16 01/10/20 25 01/09/2025 COMPL ETE BLOOD COUNT % monocytes 5.0 % 0.0-11 .0 normal Not Available [facility] [address] [place] [address], [address], 01/09/2025 11:55:16 01/10/20 25 01/09/2025 COMPL ETE BLOOD COUNT % eosinophils 3.0 % 0.0-7. 0 normal Not Available [facility] [address] [place] [address], [address], 01/09/2025 11:55:16 01/10/20 25 01/09/2025 COMPL ETE BLOOD COUNT % basophils 0.0 % 0.0-3. 0 normal Not Available [facility] [address] [place] [address], [address], 01/09/2025 11:55:16 01/10/20 25 01/09/2025 COMPL ETE BLOOD COUNT nucleated red cells 0.2 % 0.0-0. 9 normal Not Available [facility] [address] [place] [address], [address], 01/09/2025 11:55:16 01/10/20 25 01/09/2025 COMPL ETE BLOOD COUNT nucleated RBCs, absolute 0.01 10*3/ uL not estab. normal Not Available [facility] [address] [place] [address], [address], 01/09/2025 11:55:16 01/10/20 25 01/09/2025 COMP. METAB OLIC PANEL glucose 128 mg/dL 74-100 high Not Available [facility] [address] [place] [address], [address], 01/09/2025 11:44:16 01/10/20 25 01/09/2025 COMP. METAB OLIC PANEL blood urea nitrogen 14 mg/dL 6-20 normal Not Available [facility] [address] [place] [address], [address], 01/09/2025 11:44:16 01/10/20 25 01/09/2025 COMP. METAB OLIC PANEL creatinine 1.41 mg/dL 0.50-0 .95 high Not Available [facility] [address] [place] [address], [address], 01/09/2025 11:44:16 01/10/20 25 01/09/2025 COMP. METAB OLIC PANEL BUN/creatini ne ratio 10 (calc ) 10-20 normal Not Available [facility] [address] [place] [address], [address], 01/09/2025 11:44:16 01/10/20 25 01/09/2025 COMP. METAB OLIC PANEL sodium 135 mmol/ L 136-14 5 low Not Available [facility] [address] [place] [address], [address], 01/09/2025 11:44:16 01/10/20 25 01/09/2025 COMP. METAB OLIC PANEL potassium 4.1 mmol/ L 3.4-5. 0 normal Not Available [facility] [address] [place] [address], [address], 01/09/2025 11:44:16 01/10/20 25 01/09/2025 COMP. METAB OLIC PANEL chloride 101 mmol/ L 98-107 normal Not Available [facility] [address] [place] [address], [address], 01/09/2025 11:44:16 01/10/20 25 01/09/2025 COMP. METAB OLIC PANEL carbon dioxide 22 mmol/ L 22-31 normal Not Available [facility] [address] [place] [address], [address], 01/09/2025 11:44:16 01/10/20 25 01/09/2025 COMP. METAB OLIC PANEL anion gap 12 (calc ) 7-25 normal Not Available [facility] [address] [place] [address], [address], 01/09/2025 11:44:16 01/10/20 25 01/09/2025 COMP. METAB OLIC PANEL calcium 9.0 mg/dL 8.6-10 .2 normal Not Available [facility] [address] [place] [address], [address], 01/09/2025 11:44:16 01/10/20 25 01/09/2025 COMP. METAB OLIC PANEL total protein 6.1 g/dL 6.4-8. 3 low Not Available [facility] [address] [place] [address], [address], 01/09/2025 11:44:16 01/10/20 25 01/09/2025 COMP. METAB OLIC PANEL albumin 4.0 g/dL 3.5-5. 2 normal Not Available [facility] [address] [place] [address], [address], 01/09/2025 11:44:16 01/10/20 25 01/09/2025 COMP. METAB OLIC PANEL globulin 2.1 1.5-4. 5 normal Not Available [facility] [address] [place] [address], [address], 01/09/2025 11:44:16 01/10/20 25 01/09/2025 COMP. METAB OLIC PANEL albumin/glob ulin ratio 1.9 (calc ) 1.1-2. 5 normal Not Available [facility] [address] [place], [address], 01/09/2025 11:44:16 01/10/20 25 01/09/2025 COMP. METAB OLIC PANEL bilirubin, total 0.6 mg/dL 0.1-1. 0 normal NOTE: New refer ence range . Not Available [facility] [address] [place] [address], [address], 01/09/2025 11:44:16 01/10/20 25 01/09/2025 COMP. METAB OLIC PANEL alkaline phosphatase 78 U/L 30-121 normal Not Available [facility] [address] [place], [address], 01/09/2025 11:44:16 01/10/20 25 01/09/2025 COMP. METAB OLIC PANEL AST 19 U/L 0-32 normal Not Available [facility] [address] [place] [address], [address], 01/09/2025 11:44:16 01/10/20 25 01/09/2025 COMP. METAB OLIC PANEL ALT 13 U/L 0-33 normal Not Available [facility] [address] [place] [address], [address], 01/09/2025 11:44:16 01/10/20 25 01/09/2025 COMP. METAB OLIC PANEL eGFR 37 >= 60 abnormal NOT E New calcu latio n for GFR (CKD- EPI 2020) is formu lated witho ut race adjus tment facto rs at the recom menda tion of the [facility] ty of Nephr ology . This calcu latio n has not been valid ated in pregn ant women . For pedia dina sheparde nts refer to https ://heike joseph.o rg/pr ofess ional s/KDO QI/gf r_cal culat orPed Not Available [facility] [address] [place] [address], [address], 01/09/2025 11:44:16 01/10/20 25 01/09/2025 PROTH ROMBI N TIME prothrombin time 18.2 secon ds 9.0-11 .0 high Not Available [facility] [place], [address], 01/09/2025 11:44:13 01/10/20 25 01/09/2025 PROTH ROMBI N TIME INR 1.9 2.0-3. 0 low INR OF 2.0 TO 3.0 RECOM MARY D FOR: PROPH YLAXI S AND TREAT MENT OF VENOU S THROM BOSIS TREAT MENT OF PULMO NARY EMBOL ISM PREVE NTION OF SYSTE PATRICIO EMBOL ISM TISSU E HEART VALVE S, VALVU LAR HEART DISEA SE ACUTE MYOCA RDIAL INFAR CTION , ATRIA L FIBRI LLATI ON INR OF 2.5 TO 3.5 RECOM MARY D FOR: RECUR RENT SYSTE PATRICIO EMBOL ISM MECHA NICAL PROST HETIC VALVE S Not Available [facility] [address] [place] [address], [address], 01/09/2025 11:44:13 06/15/19 20 06/14/2019 elect johanne guzmangr am No observ ation record ed. [email or web address] [facility] [address] [facility], [place], [address], 06/15/2019 11:40:26 08/24/19 20 08/22/2019 elect rocar diogr am No observ ation record ed. 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 Dense base cancer . PROCED URE: Baseli ne blood glucos e level was 134 mg/dL. 11.58 mCi F-18 FDG ([facility] [id number] 0511-3 0) was inject ed IV. After [...] David Merida MD on 2022 1:35 PM INTERFACE [facility] [address], [address], 03/30/2023 13:40:19 04/02/20 23 04/02/2023 MRI, neck, w/wo contr ast [place] [address] [place] [facility] [place] [address] Patien t Name: ABIMAEL IVERSON Patien t : [birth year] Patien t 7 Orderi ng Provid er: VANDANA Sadler LORE EXAM DATE: 2022 EXAM: MR SOFT TISSUE NECK W/WO CONTRA ST HISTOR Y: Mass involv ing the tongue base COMPAR SONY: PET CT 2022 The patien t did not requir e sedati on for this exam. No POC testin g for eGFR was perfor med due to absenc e of risk factor s. FINDIN GS: No mass is identi fied in the neck. The paraph arynge al soft tissue s appear symmet mer and normal . Area of increa sed uptake in the vicini ty of the left tongue base seen on PET does not have a corres pondin g abnorm ality on this study. The parasp inous muscul ature is symmet mer and normal in signal . There are small lymph nodes along the caroti d chain bilate rally. The paroti d and subman dibula r glands appear normal . After intrav enous admini strati on of [address] ([facility] [id number] 0325-0 2), there is no abnorm al enhanc ement in the neck. The neurov ascula r struct ures appear normal . The cervic al spine is normal in alignm ent. There is no sublux ation. There is no fractu re or pathol ogic intrao sseous lesion . There is mild anteri or margin al osteop hytic spurri ng. Disc protru sions are presen t at C5-6 and C6-7 and there is modera te narrow ing of the neural forami na bilate rally at these 2 levels . The visual ized spinal cord and try out person ior fossa of the brain are normal in appear ance. IMPRES LOY: 1. No correl ating discre te mass is noted in the tongue base region . It is possib le the PET findin gs relate d to artifa ctual activi ty perhap s relate d to tongue moveme nts and speaki ng during the exam althou gh could also relate to postop erativ e change . In my opinio n this needs short- term follow -up would sugges t repeat ing the PET scan in 3 months Interp reted By: Addison Strauss MD Electr onical ly Signed By: Addison Strauss MD on 2022 3:22 PM bcable [facility] [address], [address], 04/05/2023 16:00:03 Result Notes Documentation Provider Name and Address Organization Details Recorded Time Pet-ct, Skull Base To Mid-thigh Scan : [address] [address] Patient Name: SHEA IVERSON Patient : 1945 Patient Ordering Provider: LESA COSTA EXAM DATE: 03/30/2023 EXAM: PET-CT TUMOR SKULL BASE-MID THIGH SUB ST CLINICAL INFORMATION: Head and Neck Cancer - Restaging. Dense base cancer. PROCEDURE: Baseline blood glucose level was 134 mg/dL. 11.58 mCi F-18 FDG ([facility] [address]-79) was injected IV. After an uptake time of 51 minutes, skull base to midthigh PET imaging was performed. This was followed by a low dose attenuation correction/anatomic localization CT from lower cranium through the midthigh levels without IV or oral contrast. The patient did not require sedation for this exam. COMPARISON: Outside PET/CT 07/19/2020 FINDINGS ON PET WITH CT CORRELATION: HEAD AND NECK: No abnormal areas of F-18 FDG uptake are seen. UPPER LIMBS: Following areas of abnormal hypermetabolism are seen. 1. Hypermetabolic mass in the tongue base. SUV = 6.5 CHEST: Normal uptake of F-18 FDG is noted in the myocardium. Following areas of abnormal hypermetabolism are seen. 1. Mildly hypermetabolic part solid nodule in the RUL. Overall size = 18 mm. Solid component size = 12 x 10 mm. SUV = 2.68. It was present in the previous examination also and has increased in size. ABDOMEN: Normal uptake of F-18 FDG is noted in the liver, spleen, bowel and kidneys along with excretion into the ureters. No abnormal areas of F-18 FDG uptake are seen. PELVIS: Normal excretory collection of F-18 FDG is noted in the urinary bladder. No abnormal areas of F-18 FDG uptake are seen. LOWER LIMBS: No abnormal areas of F-18 FDG uptake are seen. ADDITIONAL SIGNIFICANT CT FINDINGS: None. COMBINED IMPRESSION: 1. Hypermetabolic mass in the tongue base consistent with neoplasm. 2. Mildly hypermetabolic RUL lung nodule which has slowly increased in size since the previous examination of 07/19/2020. It may represent a slowly growing low-grade primary malignancy. It may be amenable to CT-guided FNA at the hospital. 3. No evidence of neoplastic spread is seen elsewhere in the neck, chest, abdomen or pelvis. Interpreted By: Magno Merida MD Not Available [facility] 03/30/2023 13:40:19 Mri, Neck, W/wo Contrast : [address] [place] [address] Patient Name: SHEA IVERSON Patient : 1945 Patient Ordering Provider: MACK TORREZ EXAM DATE: 04/02/2023 EXAM: MR SOFT TISSUE NECK W/WO CONTRAST HISTORY: Mass involving the tongue base COMPARISON: PET CT 03/30/2023 The patient did not require sedation for this exam. No POC testing for eGFR was performed due to absence of risk factors. FINDINGS: No mass is identified in the neck. The parapharyngeal soft tissues appear symmetric and normal. Area of increased uptake in the vicinity of the left tongue base seen on PET does not have a corresponding abnormality on this study. The paraspinous musculature is symmetric and normal in signal. There are small lymph nodes along the carotid chain bilaterally. The parotid and submandibular glands appear normal. After intravenous administration of 10 mL Gadavist ([facility] [id number]), there is no abnormal enhancement in the neck. The neurovascular structures appear normal. The cervical spine is normal in alignment. There is no subluxation. There is no fracture or pathologic intraosseous lesion. There is mild anterior marginal osteophytic spurring. Disc protrusions are present at C5-6 and C6-7 and there is moderate narrowing of the neural foramina bilaterally at these 2 levels. The visualized spinal cord and posterior fossa of the brain are normal in appearance. IMPRESSION: 1. No correlating discrete mass is noted in the tongue base region. It is possible the PET findings related to artifactual activity perhaps related to tongue movements and speaking during the exam although could also relate to postoperative change. 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 Procedures Surgical History Date Name Laterality Status Provider Name and Address Organization Details Recorded Time 05/11/19 24 Nasolaryngoscopy completed MACK TORREZ MD [address] [place] [address], [address], [facility] 05/11/2023 15:03:53 01/16/20 23 Nasolaryngoscopy completed MACK TORREZ MD [address] [place], [place] [address], [address], [facility] 01/15/2023 14:33:46 08/22/19 20 EKG completed YASMANY NIETO MD [address] [place] [address] [place], [address] 08/22/2019 11:30:35 06/22/19 20 cardioversion completed Saira Beltran [facility] 06/27/2019 11:47:53 06/14/19 20 EKG completed GIOVANNI HORAN PA-C [address] [place], [address], [facility] 06/14/2019 15:39:44 12/14/19 19 EKG completed GIOVANNI HORAN PA-C [address] [place], [place], [address], [facility] 12/13/2018 14:40:44 10/15/19 19 EKG completed GIOVANNI HORAN PA-C [address] [place], [address], [facility] 10/14/2018 15:53:15 09/01/19 19 EKG [place], [address], [facility] 08/31/2018 11:18:30 09/01/19 19 Vas - Low Ext Michele Reflux Exam completed VAN CORNELL MD [address] [place], [address], [facility] 08/31/2018 14:03:33 05/31/19 19 EKG completed GIOVANNI HORAN PA-C [address] [place], [address], [facility] 05/31/2018 11:11:36 04/22/19 19 EKG completed GIOVANNI HORAN PA-C [address] [place], [address], [facility] 04/22/2018 12:28:21 03/18/20 18 EKG completed GIOVANNI HORAN PA-C [address] [place], [address], [facility] 03/18/2018 13:37:41 Hernia Repair completed [facility] 11/17/2016 12:21:07 Gallbladder Surgery completed [facility] 11/17/2016 12:21:[address] [facility] 08/22/2019 08:12:16 Xcapsl ctrc rmvl cplx wo ecp completed [facility] 08/22/2019 08:12:26 Total knee arthroplasty completed [facility] 08/22/2019 08:12:38 Imaging Results None recorded. Procedure Notes None recorded. Medical Equipment None Reported. Allergies Allergen ID Allergen Name Allergen Category Reaction Reaction Severity Criticality Documentation Date Start Date Code Code System Note Provider Name and Address Organization Details Recorded Time 360442 Product containin g 3-hydroxy -3-methyl glutaryl- coenzyme A reductase inhibitor (product) medicatio n myalgias (muscle pain) Not available Not available 03/13/20162009 82498 009 SNOMED React ion: MYALG IA; Comme nt: Creat ed By: Zenaida fry Date: 2009 11:28 :40 AM; Not Available [facility] 6 07:45:17 Medications Name Sig Start Date Stop Date Status Note LastModified by Organization Details LastModified Time diltiazem CD 180 mg capsule,e xtended release 24 hr Take 1 capsule every day by oral route. 11/30/ 2018 06/03 /2019 completed Not Available Not Available Not Available bisoprolo l 10 mg-hydroc hlorothia zide 6.25 mg tablet Take 1 tablet every day by oral route. 03/18 completed Not Available Not Available Not Available amiodaron e 200 mg tablet Take 1 tablet every day by oral route. 05/31 completed Not Available Not Available Not Available clonazepa m 0.5 mg tablet Take 1 tablet every day by oral route. active Not Available Not Available No t Available metoprolo l succinate ER 100 mg tablet,ex tended release 24 hr TAKE ONE TABLET BY MOUTH EVERY DAY active Not Available Not Available No t Available clonazepa m 1 mg tablet Three times a day 08/17 completed Frequenc y: tid;Medi cation Descript ion: clonazep am; Dosage:1 ; Route:or al; refills: 0 Not Available Not Available Not Available warfarin 2.5 mg tablet Take 1 tablet every day by oral route. active Not Available Not Available No t Available bisoprolo l 2.5 mg-hydroc hlorothia zide 6.25 mg tablet Take 1 tablet every day by oral route. 05/31 completed Not Available Not Available Not Available Senna Concentra te 8.6 mg tablet Take 2 tablets every day by oral route. 08/31 completed Not Available Not Available Not Available Catapres 0.1 mg tablet Daily 08/17 completed Frequenc y: daily;Me dication Descript ion: clonidin e; Dosage:1 ; Route:or al; refills: 5; Quantity :60 tablet Not Available Not Available Not Available flecainid e 50 mg tablet Take 1 tablet every 12 hours by oral route. active Not Available Not Available No t Available clonidine 0.1 mg-chlort halidone 15 mg tablet Take 1 tablet every day by oral route. 08/02 completed Not Available Not Available Not Available furosemid e 20 mg tablet Take 1 tablet every day by oral route. active Not Available Not Available No t Available Coumadin 5 mg tablet Take 1 tablet(s ) every day by oral route as directed . 01/15 completed Not Available Not Available Not Available metoprolo l succinate ER 25 mg tablet,ex tended release 24 hr Take 1 tablet every day by oral route. 2019 active Not Available Not Available Not Avai lable paroxetin e 40 mg tablet Take 1 tablet every day by oral route. active Not Available Not Available No t Available propranol ol 20 mg tablet Take 1 tablet 3 times a day by oral route. 12/21 completed Not Available Not Available Not Available Percocet 5 mg-325 mg tablet Take 1-2 tablets po q6h prn severe pain (maximum of 8 tablets per day) 05/11 completed Not Available Not Available Not Available Vitamin D 50,000 unit capsule Take 1 capsule every week by oral route. active Not Available Not Available No t Available rosuvasta tin 5 mg tablet Take 1 tablet every day by oral route. active Not Available Not Available No t Available bupropion HCl XL 150 mg 24 hr tablet, extended release Take 1 tablet every day by oral route. 05/31 completed Not Available Not Available Not Available Vitamin B-12 daily 08/21 completed Not Available Not Available Not Available Vitamin D 08/21 completed Not Available Not Available Not Available potassium active Not Available Not Britney ilable Not Available metoprolo l suc 100 mg-hydroc hlorothia zide 12.5 mg tablet,ex t.rel 24 hr Take one tablet every day 06/13 completed Not Available Not Available Not Available Tila 05/31 completed Not Available Not Available Not Available Imbruvica 280 mg tablet 1 tablet daily 01/15 completed Not Available Not Available Not Available Imbruvica 140 mg tablet Take 1 tablet(s ) every day by oral route. 08/02 completed Not Available Not Available Not Available Imbruvica 420 mg tablet Take 1 tablet every day by oral route. 03/18 completed P/A approved 4.26.18 to 7.24.21 Not Available Not Available Not Available Vitals Date Recorded Body height Body mass index (BMI) Body weight Provider Name and Address Organization Details Last Updated DateTime 05/11/2023 165.1 cm 36.6 kg/m2 21090.32 g [facility] [place] [facility] [place] 05/11/2023 12:52:37 Date Recorded Body height Body mass index (BMI) Body weight Heart rate Systolic And Diastolic Provider Name and Address Organization Details Last Updated DateTime 06/14/2019 165.1 cm 41.3 kg/m2 219183.9 1 g 104 /min 118/62 mm[Hg] Emily Snow [facility] 0 13:24:48 Date Recorded Body height Body mass index (BMI) Body weight Heart rate Systolic And Diastolic Provider Name and Address Organization Details Last Updated DateTime 08/22/2019 165.1 cm 40.9 kg/m2 669843.7 2 g 57 /min 142/82 mm[Hg] Saira Beltran [facility] 08/22/2019 11:16:57 Date Recorded Body weight Body mass index (BMI) Body height Heart rate Systolic And Diastolic Provider Name and Address Organization Details Last Updated DateTime 01/15/2023 12984.32 g 36.6 kg/m2 165.1 cm 75 /min 157/92 mm[Hg] Lane Carrasquillo [facility] 01/15/2023 13:20:53 Social History Question Answer Notes LastModified by [employer] Details LastModified Time Tobacco Smoking Status Former Smoker 40 years ago Christine Tong [facility] 11/17/2016 12:20:44 How Much Tobacco Do You Chew? None [email or web address] Information not available 08/02/2018 When Did You Quit Smoking? 16+yearssinc elastcigaret te [email or web address] Information not available 09/19/2018 Marital Status [email or web address] Information not available 01/11/2017 What Was The Date Of Your Most Recent Tobacco Screening? 08/22/2019 Information not available 08/22/2019 How Much Tobacco Do You Smoke? 1 PPD Information not available 08/22/2019 How Many Years Have You Smoked Tobacco? 20 Information not available 08/22/2019 Sex: Unknown Functional Status Question Answer Note LastModified by [employer] Details LastModified Time What is your level of alcohol consumption? None [email or web address] Information not available 01/11/2017 Do you or have you ever used smokeless tobacco? Never used smokeless tobacco Information not available 08/22/2019 What is your occupation? retired [email or web address] Information not available 01/11/2017 Do you or have you ever used e-cigarettes or vape? Never used electronic cigarettes Information not available 08/22/2019 Mental Status None recorded. Family History Relationship Description Onset Age of this Age Resolved Age Notes LastModified by Organization Details LastModified Time Father Heart disease [email or web address] Not available 2018 11:34:00 Father Hyperlipidem ia [email or web address] Not available 2018 11:34:49 Father Hypertensive disorder [email or web address] Not available 2018 11:34:24 Mother Hypertensive disorder [email or web address] Not available 2018 11:34:19 Mother Hyperlipidem ia [email or web address] Not available 2018 11:34:54 Son Depressive disorder [email or web address] Not available 2018 11:35:07 Son Hypertensive disorder [email or web address] Not available 2018 11:34:34 Brother Hypertensive disorder [email or web address] Not available 2018 11:34:28 Brother Hyperlipidem ia [email or web address] Not available 2018 11:34:59 Medical History Condition Response Other Y Atrial Fibrillation Y Depression Y Arthritis Y Cancer Y High Cholesterol Y Heart Disease Hypertension Y Gynecological HistoryNo gynecological history recorded. Obstetrics History GPAL:G 0 P 0 0 0 0 Immunizations Vaccine Type Date Status Note Provider Nam e and Address Organization Details Recorded Time pneumococcal, unspecified formulation 2 completed Sugar Mistry [facility] 05/10/2019 13:28:20 Influenza, split virus, quadrivalent, preservative 8 completed Sugar Mistry [facility] 05/10/2019 13:28:20 pneumococcal, unspecified formulation 8 completed Sugar Mistry [facility] 05/10/2019 13:28:20 zoster, unspecified formulation 9 completed Sugar Mistry [facility] 05/10/2019 13:28:20 Influenza, split virus, quadrivalent, preservative 9 completed Sugar Mistry [facility] 05/10/2019 13:28:20 Past Encounters Encounter ID Performer Location Encounter Start Date Encounter Closed Date Diagnosis/Indication Diagnosis SNOMED-CT Code Diagnosis ICD10 Code Diagnosis IMO Codes Diagnosis Note [id number] LESA COSTA MD HEM/ONC [facility] [facility] [address] [address] 05/11/2016 11:58:36 05/11/2016 14:15:47 Malignant lymphoma of intra-abdominal lymph nodes 65909131 C85.93 Pt is doing well with MICHAEL. She has new symptoms. Her main issue is related to arthritic knees. [id number] LESA COSTA MD HEM/ONC [place] CLOSED [address] [address] 08/18/2016 12:10:51 08/18/2016 14:21:27 Malignant lymphoma of intra-abdominal lymph nodes 83543511 C85.93 Pt is doing well with MICHAEL. She has no new symptomato logy. Her main issue is related to her arthritis and constipati on. [id number] MD MARIA TERESA DAMICO/ONC CEE CLOSED [address] [address] 11/17/2016 12:10:53 11/17/2016 13:43:48 Malignant lymphoma of intra-abdominal lymph nodes 77469059 C85.93 Pt is doing well with MICHAEL. She has no new symptomato logy. Her main issue is related to her arthritis and constipati on. She will resume her stool softener. Hyperglycemia 17905823 R 73.9 Add hemoglobin A1C to today's labs. Encourage exercise and weight control. [id number] LESA COSTA MD HEM/ONC CEE CLOSED [address] [address] 01/11/2017 13:21:52 01/11/2017 14:58:19 Malignant lymphoma of intra-abdominal lymph nodes 31539312 C85.93 Pt with her new report of cervical LU. Will obtain CT scans of neck, CAP with. Obesity 438171974 E66.9 [id number] LESA COSTA MD HEM/ONC CEE CLOSED [address] [address] 05/18/2017 11:39:11 05/18/2017 12:55:13 Malignant lymphoma of intra-abdominal lymph nodes 72510920 C85.93 Pt with shoddy diffuse LU that is stable. She has slight increase in her WBC. Obesity 714537170 E66.9 Encourage continued weight loss. Pt has completely cut out sweets. [id number] LESA COSTA MD HEM/ONC [facility] CLOSED [address] 6 08/17/2017 12:32:59 08/17/2017 14:27:17 Malignant lymphoma of intra-abdominal lymph nodes 60862087 C85.93 Pt with shoddy diffuse LU that is slightly enlarged from prior scans. She has slight increase in her WBC. We have asked TIFFANIE Carvalho to have lymph node sizes compared to prior films. Overall she is doing well. [id number] LESA COSTA MD HEM/ONC [place] CLOSED [address],[place] [address] 11/09/2017 14:45:25 11/09/2017 15:50:59 Malignant lymphoma of intra-abdominal lymph nodes 63481937 C85.93 Pt with increasing LU from prior scans. She has had increase in her WBC. Secondary to her new symptoms, we will begin Imbruvica. She will RTC in 4 weeks. [id number] LESA COSTA MD HEM/ONC [place] CLOSED [address],[place] [address] 6 12/21/2017 12:04:01 12/21/2017 13:34:16 Malignant lymphoma of intra-abdominal lymph nodes 85530553 C85.93 Pt with increasing LU from prior scans and she has had increase in her WBC. Secondary to her new symptoms, we began Imbruvica. She will RTC in 4 weeks. She is s/p cycle #1. [id number] LESA COSTA MD HEM/ONC [facility] [facility]ED [address],[place] [address] 01/17/2018 12:07:55 01/17/2018 14:11:32 Malignant lymphoma of intra-abdominal lymph nodes 55006097 C85.93 Pt had increasing LU from prior scans and she has had increase in her WBC. Secondary to her new symptoms, we began Imbruvica. She will RTC in 4 weeks. She is s/p cycle #2. She is up to date on her flu and pneumonia shots. She has no new LU. Atrial fibrillation 4943 6004 I48.91 I have discussed with pt the risks/bene fits with imbruvica. She wishes to proceed. She will FU Dr. Pressley. We will decrease dose to 280 mg. [id number] LESA COSTA MD HEM/ONC [facility] CLOSED [address] [facility] [address],[facility] [address] [place] [address] 02/15/2018 11:44:26 02/15/2018 13:23:48 Malignant lymphoma of intra-abdominal lymph nodes 43603797 C85.93 Pt had increasing LU from prior scans and she has had increase in her WBC. Secondary to her new symptoms, we began Imbruvica. She will RTC in 4 weeks. She is s/p cycle #3. She is up to date on her flu and pneumonia shots. She has no new LU. FU CT scans. Atrial fibrillation 4943 6004 I48.91 I have discussed with pt the risks/bene fits with imbruvica. She wishes to proceed. She will FU Dr. Pressley. We will decrease dose to 280 mg. Complainin g of - watering eyes 253505963 H04.203 Refer to Ophthalmol ogy. [id number] LESA COSTA MD HEM/ONC [place] CLOSED [address] [facility] [address] 6 03/15/2018 14:36:34 03/15/2018 15:45:06 Malignant lymphoma of intra-abdominal lymph nodes 46151717 C85.93 Pt had increasing LU from prior scans and she has had increase in her WBC. Secondary to her new symptoms, we began Imbruvica. She will RTC in 5 weeks. She is s/p cycle #4. She is up to date on her flu and pneumonia shots. Atrial fibrillation 4943 6004 I48.91 I have discussed with pt the risks/bene fits with imbruvica. She wishes to proceed. She will FU Dr. Pressley. We will decrease dose to 280 mg. Refer to Cardiology . Complainin g of - watering eyes 060222995 H04.203 Refer to Ophthalmol ogy. [id number] GIOVANNI HORAN PA-C CARDIOLOG Y [address] ,[address] [place], [place] [address] 03/18/2018 10:49:48 03/18/2018 15:10:16 Atrial fibrillation 84010430 I48.91 [id number] LESA COSTA MD HEM/ONC [place] [facility] [address] 6 04/18/2018 12:17:31 04/18/2018 14:34:47 Malignant lymphoma of intra-abdominal lymph nodes 14144011 C85.93 Pt had increasing LU from prior scans and she has had increase in her WBC. Secondary to her new symptoms, we have begun Imbruvica. She will RTC in 8 weeks. She is s/p cycle #6. She is up to date on her flu and pneumonia shots. Atrial fibrillation 4943 6004 I48.91 FU Cardiology . [id number] GIOVANNI HORAN PA-C CARDIOLOG Y [address] [place] GARCIA,[address] [place] [address] 5 04/22/2018 11:21:47 04/22/2018 12:45:40 Atrial fibrillation [id number] I48.91 [id number] GIOVANNI HORAN PA-C CARDIOLOG Y [address] [place] [address]ARCIA,[address] [place] [address] 5 05/31/2018 10:11:34 05/31/2018 11:28:40 Atrial fibrillation 66607717 I48.91 Long-term current use of anticoagulant 161581576 Z79.01 [id number] LESA COSTA MD HEM/ONC [place] [facility] [address] 6 06/20/2018 09:48:09 06/20/2018 11:39:13 Malignant lymphoma of intra-abdominal lymph nodes 26838032 C85.93 Pt had increasing LU from prior scans and she has had increase in her WBC. Secondary to her new symptoms, we will continue Imbruvica. She will RTC in 8 weeks. She is s/p cycle #8. She is up to date on her flu and pneumonia shots. Paroxysmal atrial fibrillation 799591250 I48.0 FU with cardiology . [id number] ADDISON GARSIA JR, MD [facility] [address] [place] [address] 08/02/2018 11:23:01 08/10/2018 08:30:14 Long-term current use of anticoagulant 463032212 Z79.01 Malignant lymphoma of intra-abdominal lymph nodes 61673379 C85.93 Swelling of limb 0223024 9 M79.89 Check venous duplex scan right lower extremity. Begin wearing elastic compressio n stockings. Discolorat ion of right leg is likely ecchymosis . [id number] VAN CORNELL MD [facility] [address] [place] [address] [address] GARCIA [address] 5 08/31/2018 08:24:51 09/02/2018 14:35:45 Peripheral venous insufficiency 93608087 I87.2 [id number] GIOVANNI HORAN PA-C CARDIOLOG Y [address] [place] [address] 5 08/31/2018 08:25:59 08/31/2018 10:39:30 Atrial fibrillation 19028383 I48.91 Long-term current use of anticoagulant 313445059 Z79.01 [id number] LESA COSTA MD HEM/ONC [place] CLOSED [address] [place] [address] 09/19/2018 10:50:22 09/19/2018 12:29:35 Malignant lymphoma of intra-abdominal lymph nodes 72850801 C85.93 Pt had increasing LU from prior scans and she has had increase in her WBC. Secondary to her new symptoms, we will continue Imbruvica. She will RTC in 8 weeks. She is s/p cycle #11. She is up to date on her flu and pneumonia shots. 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 64262878 C85.99 Long-term current use of anticoagulant 615191384 Z79.01 [id number] GIOVANNI HORAN PA-C CARDIOLOG Y [address] [address] [place] [address] 5 10/14/2018 14:37:27 10/14/2018 16:02:28 Atrial fibrillation 83303464 I48.91 Long-term current use of anticoagulant 714799553 Z79.01 [id number] GIOVANNI HORAN PA-C CARDIOLOG Y [address] [place] [address] 5 12/13/2018 13:51:29 12/13/2018 14:51:29 Atrial fibrillation 91147191 I48.91 Long-term current use of anticoagulant 264942336 Z79.01 [id number] LESA COSTA MD HEM/ONC [place] CLOSED [address] [place] [address] 12/26/2018 11:52:40 12/26/2018 13:36:09 [id number] LESA COSTA MD HEM/ONC SB CLOSED [address] [place] [address] 05/09/2019 12:55:16 05/09/2019 14:08:42 [id number] GIOVANNI HORAN PA-C CARDIOLOG Y [address] ,[address] [place], [place] [address] 06/14/2019 13:12:12 06/14/2019 16:11:52 Atrial fibrillation 98894192 I48.91 Long-term current use of anticoagulant 312753032 Z79.01 [id number] YASMANY NIETO MD CARDIOLOG Y [address] [place] [address] 08/22/2019 10:43:49 08/22/2019 11:44:57 Long-term current use of anticoagulant 842369402 Z79.01 currently on Coumadin.n o bleeding issues reported. Maintain INR between 2 3 Paroxysmal atrial fibrillation 143196572 I48.0 I reviewed the EKG done today which shows sinus rhythm. I reviewed the recent [employer] cardiovers ion report. She is currently doing well. She is maintainin g normal sinus rhythm on current medication s. Long-term drug therapy 745119849 Z79.899 currently on flecainide 50 mg twice a day. QRS 1 02 ms. QTC 4 01 ms. Essential hypertension 66230305 I10 I recommende d she monitor her blood pressure and decrease sodium intake. Target blood pressure < 140/90 Overweight 757912386 E66 .3 weight loss counseled [id number] LESA COSTA MD HEM/ONC [place] CLOSED [address] [place] [address] 08/29/2019 14:28:21 08/29/2019 15:04:18 [id number] LESA COSTA MD HEM/ONC SB CLOSED [address] [place] [address] 11/28/2019 14:36:02 11/28/2019 15:10:55 [id number] LESA COSTA MD HEM/ONC SB CLOSED [address] [place] [address] 02/19/2020 12:36:14 02/19/2020 13:05:30 [id number] LESA COSTA MD HEM/ONC SB CLOSED [address] [place] [address] 07/01/2020 13:29:08 07/01/2020 14:54:44 [id number] LESA COSTA MD HEM/ONC SB CLOSED [address] [place] [address] 12/02/2020 12:48:15 12/02/2020 13:16:37 [id number] LESA COSTA MD HEM/ONC SB CLOSED [address] [place] [address] 03/31/2021 12:14:48 03/31/2021 13:02:49 [id number] LESA COSTA MD HEM/ONC SB CLOSED [address] [place] [address] 06/02/2021 12:15:50 06/02/2021 14:29:15 [id number] LESA COSTA MD HEM/ONC SB CLOSED [address] [place] [address] 06/02/2021 15:53:28 06/02/2021 16:27:08 [id number] LESA COSTA MD HEM/ONC SB CLOSED [address] [place] [address] 08/04/2021 12:58:04 08/04/2021 13:55:28 [id number] LESA COSTA MD HEM/ONC SB CLOSED [address] [place] [address] 11/18/2021 15:10:29 11/18/2021 16:06:46 [id number] LESA COSTA MD HEM/ONC SB CLOSED [address] [place] [address] 02/17/2022 13:13:11 02/17/2022 15:56:55 [id number] LESA COSTA MD HEM/ONC SB CLOSED [address] [place] [address] 05/26/2022 13:03:54 05/26/2022 14:36:10 [id number] LESA COSTA MD HEM/ONC SB CLOSED [address] [place] [address] 09/01/2022 12:09:23 09/01/2022 14:15:37 [id number] MACK TORREZ MD ENT SB [address] [place] [address] 1 01/15/2023 13:08:12 01/15/2023 15:31:51 Hypertrophy of tonsils 80781626 J35.1 CT neck at [facility] was read as a base of tongue mass. Has had a unilateral left tonsillect boo in the past for lymphoma and the area visible on scan is the persistent right tonsil. Several years ago the left was removed by me to diagnose lymphoma. Reviewed and interprete d neck CT. No discrete mass visible. Nasolaryng oscopy performed. No abnormalit ies. Recommend removal of the right tonsil for pathologic diagnosis and rule out lymphoma since the tonsil does appear somewhat pathologic and enlarged. She agrees. Discussed risks and complicati ons including but not limited to bleeding, velopharyn geal insufficie ncy and infection. Consent obtained. May treat with postoperat shana narcotics. . Will need to be cleared to be off warfarin for 5 days preop [id number] MACK TORREZ MD SURGERY SCHEDULE [address] [place] [address] 1 02/22/2023 10:51:07 02/22/2023 10:51:56 [id number] MACK TORREZ MD ENT SB [address] [place] [address] 1 05/11/2023 12:42:55 05/11/2023 15:23:03 Hypertrophy of tonsils 45679006 J35.1 Several years ago the left was removed by me to diagnose lymphoma. 2mo s/p right tonsillect boo and microscopi c/endoscop ic direct laryngosco py with biopsy 02/22/23. 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 Subsequent ly she had PET scan which showed uptake in the left tongue base. That imaging was reviewed and interprete d today. Area was examined during the tonsillect boo and no pathology was noted. Subsequent ly had an MRI done which showed no mass present. Nasolaryng oscopy performed, no abnormalit ies. Exam is normal. Could have B-cell lymphoma in the tongue base. No treatment recommende d given the lack of symptoms.. Will observe. Certainly no evidence of squamous cell carcinoma. F/u 4-6 months 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 44449880 C85.99 Health Concerns Section Related Observation LastModified by Organization Detai ls LastModified Time None Recorded Concern Status LastModified by Organization Details LastModified Time None Recorded Advance Directives Directive None Recorded Payers Insurance Date Sequence Insurance Name Policy Number Policy Leon Covered Member ID Leon Member ID Guarantor Name 06/05/2024 PAYMENT PLAN Shea Rice 01/11/2025 1 [place] Shea Rice [id number] Shea Rice 05/04/2023 2 [facility] (MEDICAID REPLACEMENT - HMO) [id number] Shea Rice [id number] Shea Rice Notes Date Note Type Note Provider Name and Address Organization Details Recorded Time 0 text/html ROS as noted in the HPI delightful 73-year-old white female who came with atrial fibrillation February 2018. After adequate anticoagulation she was taken for successful cardioversion. She's been maintained on Coumadin. amiodarone was discontinued when she developed a tremor. She had an outside echocardiogram with her PCP when atrial fibrillation was identified. This showed a preserved ejection fraction 55% chamber sizes were upper limits of normal. She is treated for hypertension. No history of coronary artery disease. In the emergency department recently with hypertensive urgency. Comes today for follow-up. Continues to have shortness of breath. Blood pressures have come under better control. GIOVANNI HORAN PA-C [address] [place] [address], [phone], [facility] 06/14/2019 15:46:40 0 text/html ROS as noted in the HPI Ms. Iverson is a 74-year-old female with prior history of atrial fibrillation. She was noted to be in atrial fibrillation in February 2018. She was anticoagulated and underwent a DC cardioversion. Amiodarone was discontinued due to tremors. Echocardiogram done showed normal LV function. LVEF 55%. She is treated for hypertension. She does not have a history of CAD. She has a history of CLL-recent progressive adenopathy treated with Imbruvica ( NOAC's contraindicated ) She develop recurrent atrial fibrillation and was seen by Giovanni Horan PA-C on 06/14/19. She underwent a repeat DC cardioversion on 06/22/19 which successfully converted into normal sinus rhythm. She was also started on flecainide 50 mg twice a day. She is here today for a follow-up visit. She denies any chest pain, no shortness of breath, no palpitations, no PND, no orthopnea or syncope. EKG done shows sinus bradycardia at 57 bpm with a first-degree AV block. YASMANY NIETO MD [address] [place] [address], [phone], [facility] 08/22/2019 11:33:40 3 text/html Ref: Dr. Lesa Esposito complaint: Base of Tongue massTiming: about a monthDuration: constantLocation: Base of TongueSeverity: moderateQuality:Context: went 12/19/22 to hospital for vertigo and had CT head where the abnormality was noted at [facility], hx lymphoma, hx left tonsillectomy, on warfarin for afib managed by her cardiologistModifying factors: no txAssoc signs and symptoms: base of tongue mass, no dysphagia, no choking, no hoarseness, no SOB, no dyspnea, no throat pain, no voice changes, no hemoptysis MACK TORREZ MD [address] [place] [address], [phone], [facility] 01/15/2023 14:33:52 4 text/html Chief complaint: S/P right tonsillectomy, Micro DL with biopsy of base of tongueTimin02/22/23Duration:Location:R ight tonsilSeverity:Quality:Con text:Modifying factors:Assoc signs and symptoms:No dysphagia, no hoarseness, no signs of bleeding, no ear pain, eating well. MACK TORREZ MD [address] [place] [address], [phone], [facility] 05/11/2023 15:05:17 OBGyn Episode No OBEpisode recorded.
--- OUTSIDE RECORDS SUMMARY | 2025-01-30 08:24 | XMS_ITS | Encounter Summary ---
Author Organization Healthcare Address [address] [place] [address] Care Team Providers Care Director Of Enterprise Architecture Name Role Phone Oren Pressley MD Primary Care Provider [phone] Sima Trejo MD Unavailable [phone] Reason for Visit * Reason Comments Resource Navigation Encounter Details Date Type Department Care Team ([facility] st Contact Info) Description 01/10/2025 Social Work Psych Oncology [address] [place] [address] Janet Thomas Social History Tobacco Use Types [...] Status: Initial Psych Onc Contact Clinic Location: [facility] Disease Type: Non-Hodgkin Lymphoma Intervention Level: 1 Units (1 unit = 15 minutes): 1 Narrative: HOTEL FRONT DESK AGENT attempted to follow up with pt per pt request regarding insurance and financial assistance. Pt was unavailable at this time. HOTEL FRONT DESK AGENT left a brief non urgent message stating name, nature of call, and contact information for follow up as needed. HOTEL FRONT DESK AGENT remains available ongoing prn. Janet Thomas MSW, HOTEL FRONT DESK AGENT [phone] * Progress Notes - Janet Thomas - 01/10/2025 3:01 PM EDT Encounter Type: Phone Call Disease Status: Initial Psych Onc Contact Clinic Location: [facility] Disease Type: Non-Hodgkin Lymphoma Education Provided: Financial Support/Aid [facility] Referrals: Financial Navigator Intervention Level: 3 Units (1 unit = 15 minutes): 2 Narrative: HOTEL FRONT DESK AGENT received call back from pt stating she needed to speak with financial department for [employer] and needed to know what documents she needed to bring with her. HOTEL FRONT DESK AGENT committed to referring pt to vijay Valente to request follow up. Pt was appreciative and denied additional needs at this time. HOTEL FRONT DESK AGENT remains available ongoing prn. 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) 02/06/2025 10:30 AM EDT Office Visit [facility] [[email or web address] at [place] [address] [place] [address] 02/06/2025 11:30 AM EDT Office Visit [facility] [[email or web address] at [place] [address] [place] [address] Sima Trejo MD [facility] [address] [place] [phone] 02/06/2025 12:00 PM EDT Infusion [facility] [[email or web address] at [facility] [address] [place] [address] documented as of this encounter Visit Diagnoses Not on filedocumented in this encounter Additional Health Concerns Assessment Noted Time PHQ-9 Depression Total Score: 5 11/15/19 25 9:00 AM EDT A fall risk assessment has been complete d for the patient 08/08/2024 2:12 PM EDT documented as of this encounter Care Teams Director Of Enterprise Architecture Relationship Specialty Start Date End Date Oren Pressley MD [address] [place] [address] PCP - General Internal Medicine 02/09/23 Sima Trejo MD [address] [place] [phone] Medical Oncologist Hematology and Oncology 08/02/23 documented as of this encounter
--- OUTSIDE RECORDS SUMMARY | 2025-01-30 08:24 | XMS_ITS | Clinical Summary ---
Author Organization [email or web address] ([place], [place], [place], [place]) Address [address] [place] [address] Care Team Providers Care Lan Engineer Name Role Phone Oren Pressley MD Primary Care Provider [phone] Allergies No known active allergies Medications clonazePAM [...] Date [place] Speak language other than Mongolian at home Not on file 04/30/2023 Want [...] history exists Insurance [address] [place] [id number] MEDICARE PART A B Care Teams Lan Engineer Relationship Specialty Start Date End Date Oren Pressley MD [address] [place] [address] [place] [id number] PCP - General Adolescent Medicine 05/17/23
--- OUTSIDE RECORDS SUMMARY | 2025-01-30 08:24 | XMS_ITS ---
Author Organization [facility] Address [address] [place] [address] Care Team Providers Care Web Content & Social Media Manager Name Role Phone Oren Pressley MD Primary Care Provider [phone] Sima Trejo MD Unavailable [phone] Active Problems Problem Noted Date Diagnosed [...]
--- OUTSIDE RECORDS SUMMARY | 2025-01-30 08:24 | XMS_ITS | Encounter Summary ---
Author Organization [facility] Address [address] [place] [address] Care Team Providers Care Director Of Coding Name Role Phone Oren Pressley MD Primary Care Provider Sima Trejo MD Unavailable [phone] Encounter Details Date Type Department Care Team (Late st Contact Info) Description 05/28/2023 OSHA Contract Physicial [facility] [address] [place] [address] Dagmar Sewell MD [address] [address] Social History Tobacco Use Types [...] st Contact Info) Description 02/06/2025 Orders Only [facility] [address] [place] [address] Sima Trejo MD [address] [address] 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) 02/06/2025 10:30 AM EDT Office Visit [facility] at [address] [place] [address] 02/06/2025 11:30 AM EDT Office Visit [facility] at [address] [place] [phone] iSma Trejo MD [address] [place] [phone] 02/06/2025 12:00 PM EDT Infusion [facility] at [address] [place] [address] documented as of this encounter Visit Diagnoses Not on filedocumented in this encounter Care Teams Director Of Coding Relationship Specialty Start Date End Date Oren Pressley MD [address] [place] [address] PCP - General Internal Medicine 02/09/23 Sima Trejo MD [address] [place], [place] [address] [phone] Medical Oncologist Hematology and Oncology 08/02/23 documented as of this encounter
--- OUTSIDE RECORDS SUMMARY | 2025-01-30 08:24 | XMS_ITS | Referral Summary ---
Author Organization [email or web address] ([place], [place], [place], [place]) Address [address] [place] [address] Care Team Providers Care Manager Traffic Name Role Phone Oren Pressley MD Primary Care Provider [phone] Allergies No known active allergies Medications clonazePAM [...] Date [place] Speak language other than Citizen [place] at home Not on file 04/30/2023 Want [...] Insurance MEDICARE PART A B Care Teams Manager Traffic Relationship Specialty Start Date End Date Oren Pressley MD [address] [place] [address] [place] [address] PCP - General Adolescent Medicine 05/17/23
--- OUTSIDE RECORDS SUMMARY | 2025-01-30 08:24 | XMS_ITS | Encounter Summary ---
Author Organization [facility] Address [address] [place] [id number] Care Team Providers Care Oil Well Fishing Tool Operator Name Role Phone Oren Pressley MD Primary Care Provider [phone] Sima Trejo MD Unavailable [phone] Reason for Visit * Reason Comments Resource Navigation Encounter Details Date Type Department Care Team (Late st Contact Info) Description 01/11/2025 Social Work [facility] at [address] [address] Jo Helms, [place] [address] Social History Tobacco Use Types Packs/Day Years [...] Miscellaneous Notes * Clinician Note - Jo Helms LCSW - 01/11/2025 1:39 PM EDT Encounter Type: Phone Call Disease Status: Established Patient Clinic Location: [facility] Disease Type: Leukemia Services Provided: Financial Support, Financial Toxicity, Resource Navigation, Transportation Assistance Education Provided: Financial Support/Aid National Referrals: Leukemia & Lymphoma Society Intervention Level: 3 Units (1 unit = 15 minutes): 2 Narrative: MANAGER UTILITIES student called patient to ask about filing an application to [facility]'s Patient Assistance Program on her behalf for transportation assistance. Patient consented. Application was filled out by INSPECTOR OF WEIGHTS AND MEASURES and was approved for patient. MANAGER UTILITIES student called patient back and informed p atient that she had been approved and the check would be mailed to her home address. Patient expressed appreciation for the assistance. 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) 02/06/2025 10:30 AM EDT Office Visit [facility] at [address] [place] [address] 02/06/2025 11:30 AM EDT Office Visit [facility] at [address] [place] [address] Sima Trejo MD [address] [place], [place] [address] [address] 02/06/2025 12:00 PM EDT Infusion [facility] at [address] [place] [address] documented as of this encounter Visit Diagnoses Not on filedocumented in this encounter Additional Health Concerns Assessment Noted Time PHQ-9 Depression Total Score: 5 11/15/19 25 9:00 AM EDT A fall risk assessment has been complete d for the patient 08/08/2024 2:12 PM EDT documented as of this encounter Care Teams Oil Well Fishing Tool Operator Relationship Specialty Start Date End Date Oren Pressley MD [address] [place] [address] PCP - General Internal Medicine 02/09/23 Sima Trejo MD [address] [address] Medical Oncologist Hematology and Oncology 08/02/23 documented as of this encounter
--- OUTSIDE RECORDS SUMMARY | 2025-01-30 08:25 | XMS_ITS | Encounter Summary ---
Author Organization Healthcare Address [address] 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) 02/06/2025 10:30 AM EDT Office Visit [facility] at [facility] [address] [place] [address] 02/06/2025 11:30 AM EDT Office Visit [facility] [address] [place] [address] Sima Trejo MD [address] [phone] 02/06/2025 12:00 PM EDT Infusion [facility] at [facility] [address] [place] [address] documented as of this encounter Visit Diagnoses Not on filedocumented in this encounter Additional Health Concerns Assessment Noted Time PHQ-9 Depression Total Score: 5 11/15/19 25 9:00 AM EDT A fall risk assessment has been complete d for the patient 08/08/2024 2:12 PM EDT documented as of this encounter Care Teams Human Resources Benefits Administrator Relationship Specialty Start Date End Date Oren Pressley MD [address] [facility] [address] [place] [address] PCP - General Internal Medicine 02/09/23 Sima Trejo MD [address] [address] [address] Medical Oncologist Hematology and Oncology 08/02/23 documented as of this encounter
--- OUTSIDE RECORDS SUMMARY | 2025-01-30 08:25 | XMS_ITS | Encounter Summary ---
Author Organization Healthcare Address [address] [place] [address] Care Team Providers Care Hvac Field Service Technician Name Role Phone Oren Pressley MD Primary Care Provider [phone] Sima Trejo MD Unavailable [phone] Encounter Details Date Type Department Care Team (Late Contact Info) Description 12/12/2024 Orders Only [facility] at [facility] [address] [place] [address] Sima Trejo MD [address] [address] CLL (chronic lymphoid leukemia) in [...] Care Team (Late Contact Info) Description 02/06/2025 Orders Only [facility] [address] [place] [address] Sima Trejo MD [address] [phone] 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) 02/06/2025 10:30 AM EDT Office Visit [facility] at [address] [place] [address] 02/06/2025 11:30 AM EDT Office Visit [facility] at [facility] [address] [place] [address] Sima Trejo MD [address] [phone] 02/06/2025 12:00 PM EDT Infusion [facility] at [place] [address] [place] [address] documented as of this encounter Procedures Procedure Name Priority Date/Time Associated Diagnosis Comments CBC WITH AUTO DIFFERENTIAL STAT 12/12/2024 10:21 AM EDT 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 ([facility]/HCC) URIC ACID, PLASMA STAT 12/12/2024 10: 21 AM EDT 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 ([facility]/HCC) History of non-Hodgkin's lymphoma Tongue mass Lung nodule LACTATE DEHYDROGENASE, PLASMA STAT 12/12/2024 10:21 AM EDT 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 ([facility]/HCC) History of non-Hodgkin's lymphoma Tongue mass Lung nodule COMPREHENSIVE METABOLIC PANEL, PLASMA STAT 12/12/2024 10:21 AM EDT 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) documented in this encounter Results * (ABNORMAL) Uric Acid, Plasma (12/12/2024 10:21 AM EDT) External Uric Acid 5.9(H) 2.4 - 5.7 mg/dL 12/12/2024 11:10 AM EDT [facility] Comment: Reference ranges are based on population norms and do not necessarily correlate with treatment targets. In patients with an established diagnosis of gout undergoing Urate Lowering Therapy (ULT), the 2012 [employer] [employer] Guidelines for Management of Gout recommend a target uric acid level of < 6 mg/dL in all patients, or lower in certain circumstances. Arthritis Care and Research Vol 64 No 10, 2012 [employer] Blood Venous blood specimen / Unknown 12/12/2024 10:21 AM EDT 12/12/2024 10:42 AM EDT Sima Trejo MD LAB BLOOD ORDERABLES Final Re sult Performing Organization Address [facility]/ZIP Co de Phone Number [facility] [address] [place] [address], * Lactate Dehydrogenase, Plasma (12/12/2024 10:21 AM EDT) [facility] External LDH Lactate Dehydrogenase 157 135 - 233 U/L 12/12/2024 11:09 AM EDT [facility] Blood Venous blood specimen / Unknown 12/12/2024 10:21 AM EDT 12/12/2024 10:42 AM EDT Sima Trejo MD LAB BLOOD ORDERABLES Final Re sult Performing Organization Address [facility]/ZIP Co de Phone Number [facility] [address] [place] [address], * (ABNORMAL) Comprehensive metabolic panel (12/12/2024 10:21 AM EDT) External Glucose 127(H) 74 - 100 mg/dL 12/12/2024 11:10 AM [facility] External BUN 16 6 - 20 mg/dL 12/12/2024 11:10 AM [facility] External Creatinine Blood 1.30(H) 0.50 - 0.95 mg/dL 12/12/2024 11:10 AM [facility] External BUN/Creat Ratio 12 10 - 20 (calc) 12/12/2024 11:10 AM [facility] External Sodium 138 136 - 145 mmol/L 12/12/2024 11:10 AM [facility] External Potassium 4.3 3.4 - 5.0 mmol/L 12/12/2024 11:10 AM [facility] External Chloride 105 98 - 107 mmol/L 12/12/2024 11:10 AM [facility] External Carbon Dioxide (CO2) 23 22 - 31 mmol/L 12/12/2024 11:10 AM [facility] External Anion Gap (AG) 10 7 - 25 (calc) 12/12/2024 11:10 AM [facility] External Calcium 8.9 8.6 - 10.2 mg/dL 12/12/2024 11:10 AM [facility] External Total Protein 6.1(L) 6.4 - 8.3 g/dL 12/12/2024 11:10 AM [facility] External Albumin 4.0 3.5 - 5.2 g/dL 12/12/2024 11:10 AM [facility] External Globulin 2.1 1.5 - 4.5 025 11:10 AM [facility] External Albumin/Globulin Ratio 1.9 1.1 - 2.5 (calc) 12/12/2024 11:10 AM [facility] External Bilirubin Total 0.5 0.1 - 1.0 mg/dL 12/12/2024 11:10 AM [facility] Comment:NOTE: New reference range. External Alkaline Phosphatase 83 30 - 121 U/L 12/12/2024 11:10 AM [facility] External AST (SGOT) 18 0 - 32 U/L 12/12/2024 11:10 AM [facility] External ALT (SGPT) 13 0 - 33 U/L 12/12/2024 11:10 AM EDT [facility] External Estimated GFR 41(A) >=60 12/12/2024 11:10 AM EDT [facility] Comment: NOTE New calculation for GFR (CKD-EPI 2020) is formulated without race adjustment factors at the recommendation of the National Kidney Foundation and [place] [employer]ph[employer]. This calculation has not been validated in women. For pediatric patients refer to https://www.kidney.org/professionals/KDOQI/gfr_calculatorPed Blood Venous blood specimen / Unknown 12/12/2024 10:21 AM EDT 12/12/2024 10:42 AM EDT us Sima Trejo MD LAB BLOOD ORDERABLES Final Re sult [facility] [place] [address], * (ABNORMAL) CBC and differential (12/12/2024 10:21 AM EDT) External WBC 5.9 3.8 - 10.8 10*3/uL 12/12/2024 10:44 AM EDT [facility] External Red Blood Cell (RBC) 3.54(L) 3.80 - 5.20 10*6/uL 12/12/2024 10:44 AM EDT [facility] External Hemoglobin 10.8(L) 12.0 - 16.0 g/dL 12/12/2024 10:44 AM EDT [facility] External Hematocrit 32.1(L) 35.0 - 47.0 % 12/12/2024 10:44 AM EDT [facility] External MCV 91 80 - 100 fL 12/12/2024 10:44 AM EDT [facility] External MCH 31 26 - 35 pg 12/12/2024 10:44 AM EDT [facility] External MCHC 34 32 - 36 g/dL 12/12/2024 10:44 AM EDT [facility] External RDW 17.4(H) 11.0 - 15.0 % 12/12/2024 10:44 AM EDT [facility] External Mean Platelet Volume 7.7 6.2 - 10.5 fL 12/12/2024 10:44 AM EDT [facility] External Platelet Count (Plt) 67(L) 150 - 400 10*3/uL 12/12/2024 10:44 AM EDT [facility] External Neutrophil# 2.6 1.6 - 8.4 10*3/uL 12/12/2024 10:44 AM EDT [facility] External Lymphocyte# 2.8 0.4 - 5.1 10*3/uL 12/12/2024 10:44 AM EDT [facility] External Absolute Monocyte (Abs [place]) 0.4 0.0 - 1.2 10*3/uL 12/12/2024 10:44 AM EDT [facility] External Eosinophils# 0.1 0.0 - 0.8 10*3/uL 12/12/2024 10:44 AM EDT [facility] External Baso# 0.0 0.0 - 0.3 10*3/uL 12/12/2024 10:44 AM EDT [facility] External Neutrophils % 44.5 42.0 - 78.0 % 12/12/2024 10:44 AM EDT [facility] External Lymphocyte % 47.4(H) 11.0 - 47.0 % 12/12/2024 10:44 AM EDT [facility] External Monocyte % 6.1 0.0 - 11.0 % 12/12/2024 10:44 AM EDT [facility] External Eosinophil% 1.6 0.0 - 7.0 % 12/12/2024 10:44 AM EDT [facility] External Basophil % 0.4 0.0 - 3.0 % 12/12/2024 10:44 AM T [facility] External Nucleated RBC%-Auto 0.0 0.0 - 0.9 % 12/12/2024 10:44 AM EDT [facility] External Nucleated RBC Absolute 0.00 Not Estab. 10*3/uL 12/12/2024 10:44 AM T [facility] Blood Venous blood specimen / Unknown 12/12/2024 10:21 AM EDT 12/12/2024 10:42 AM EDT us Sima Trejo MD LAB BLOOD ORDERABLES Final Re sult [facility] [address] [place] [address], documented in this encounter Visit Diagnoses Diagnosis 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) Chronic lymphoid leukemia, in relapse History of non-Hodgkin's lymphoma Personal history of other lymphatic and hematopoietic neoplasm Tongue mass Swelling, mass, or lump in head and neck Lung nodule Other diseases of lung, not elsewhere classified 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) Chronic lymphoid leukemia, in relapse documented in this encounter Additional Health Concerns Assessment Noted Time PHQ-9 Depression Total Score: 5 11/15/19 25 9:00 AM EDT A fall risk assessment has been complete d for the patient 08/08/2024 2:12 PM EDT documented as of this encounter Care Teams Hvac Field Service Technician Relationship Specialty Start Date End Date Oren Pressley MD [facility]0 [facility] [address] [place] [address] PCP - General Internal Medicine 02/09/23 Sima Trejo MD [address] [facility] [address] [place] [address] Medical Oncologist Hematology and Oncology 08/02/23 documented as of this encounter
--- OUTSIDE RECORDS SUMMARY | 2025-01-30 08:25 | XMS_ITS | Encounter Summary ---
Author Organization Healthcare Address [address] [place] [address] Care Team Providers Care Granite Worker Name Role Phone Oren Pressley MD Primary Care Provider [phone] Sima Trejo MD Unavailable [phone] Encounter Details Date Type Department Care Team (Late st Contact Info) Description 01/09/2025 Orders Only [facility] at [facility] [address] [place] [address] Sima Trejo MD [address] [facility] [address] [place] [address] CLL (chronic lymphoid leukemia) in [...] st Contact Info) Description 02/06/2025 Orders Only [facility] at [address] [place] [phone] Sima Trejo MD [address] [place] [phone] 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 ([facility]/HCC) 02/06/2025 10:30 AM EDT Office Visit [facility] at [address] [phone] 02/06/2025 11:30 AM EDT Office Visit [facility] at [address] [phone] Sima Trejo MD [address] [place] [phone] 02/06/2025 12:00 PM EDT Infusion [facility] at [address] [address] documented as of this encounter [...] - 11.0 SECONDS 01/09/2025 11:44 AM EDT [facility] External INR - Internormal Ratio 1.9(L) 2.0 - 3.0 01/09/2025 11:44 AM EDT [facility] Comment: INR OF 2.0 TO [...] MD LAB BLOOD ORDERABLES Final Re sult [facility] [address] [place] [address], * Acute Hepatitis Panel (01/09/2025 10:50 AM EDT) External Hepatitis A IgM Ab (HAM) NONREACTIVE NONREACTIVE 01/09/2025 1:19 PM EDT [facility] External Hepatitis B Surface Antigen (HBSAg) NONREACTIVE NONREACTIVE 01/09/2025 1:19 PM EDT [facility] External Hepatitis B Core IgM (HBCM) NONREACTIVE NONREACTIVE 01/09/2025 1:19 PM EDT [facility] External Hepatitis C Antibody (HCV Ab) NONREACTIVE NONREACTIVE 01/09/2025 1:19 PM EDT [facility] Comment: Antibodies to HCV were not detected; does not exclude the possibility of exposure to HCV. Blood Venous blood specimen / Unknown 01/09/2025 10:50 AM EDT 01/09/2025 11:30 AM EDT us Sima Trejo MD LAB BLOOD ORDERABLES Final Re sult Performing Organization Address [facility]/ZIP Co de Phone Number [facility] [address] [place] [address], * Lactate Dehydrogenase, Plasma (01/09/2025 10:50 AM EDT) External LDH Lactate Dehydrogenase 157 135 - 233 U/L 01/09/2025 12:04 PM EDT [facility] Blood Venous blood specimen / Unknown 01/09/2025 10:50 AM EDT 01/09/2025 11:30 AM EDT us Sima Trejo MD LAB BLOOD ORDERABLES Final Re sult Performing Organization Address [facility]/ZIP Co de Phone Number [facility] [address] [place] [address], [place] [phone] * (ABNORMAL) Comprehensive metabolic panel (01/09/2025 10:50 AM EDT) External Glucose 128(H) 74 - 100 mg/dL 01/09/2025 11:44 AM EDT [facility] External BUN 14 6 - 20 mg/dL 01/09/2025 11:44 AM EDT [facility] External Creatinine Blood 1.41(H) 0.50 - 0.95 mg/dL 01/09/2025 11:44 AM EDT [facility] External BUN/Creat Ratio 10 10 - 20 (calc) 01/09/2025 11:44 AM EDT [facility] External Sodium 135(L) 136 - 145 mmol/L 01/09/2025 11:44 AM EDT [facility] External Potassium 4.1 3.4 - 5.0 mmol/L 01/09/2025 11:44 AM [facility] External Chloride 101 98 - 107 mmol/L 01/09/2025 11:44 AM T [facility] External Carbon Dioxide (CO2) 22 22 - 31 mmol/L 01/09/2025 11:44 AM [facility] External Anion Gap (AG) 12 7 - 25 (calc) 01/09/2025 11:44 AM T [facility] External Calcium 9.0 8.6 - 10.2 mg/dL 01/09/2025 11:44 AM [facility] External Total Protein 6.1(L) 6.4 - 8.3 g/dL 01/09/2025 11:44 AM [facility] External Albumin 4.0 3.5 - 5.2 g/dL 01/09/2025 11:44 AM [facility] External Globulin 2.1 1.5 - 4.5 11:44 AM [facility] External Albumin/Globulin Ratio 1.9 1.1 - 2.5 (calc) 01/09/2025 11:44 AM [facility] External Bilirubin Total 0.6 0.1 - 1.0 mg/dL 01/09/2025 11:44 AM [facility] Comment:NOTE: New reference range. External Alkaline Phosphatase 78 30 - 121 U/L 01/09/2025 11:44 AM [facility] External AST (SGOT) 19 0 - 32 U/L 01/09/2025 11:44 AM T [facility] External ALT (SGPT) 13 0 - 33 U/L 01/09/2025 11:44 AM [facility] External Estimated GFR 37(A) >=60 01/09/2025 11:44 AM [facility] Comment: NOTE New calculation for GFR (CKD-EPI 2020) is formulated without race adjustment factors at the recommendation of the National Kidney Foundation and [place] [employer] Neph[employer]. This calculation has not been validated in women. For pediatric patients refer to https://www.kidney.org/professionals/KDOQI/gfr_calculatorPed Blood Venous blood specimen / Unknown 01/09/2025 10:50 AM EDT 01/09/2025 11:16 AM EDT us Sima Trejo MD LAB BLOOD ORDERABLES Final Re sult [facility] [address] [place] [address], * (ABNORMAL) CBC and differential (01/09/2025 10:50 AM EDT) External WBC 6.8 3.8 - 10.8 10*3/uL 01/09/2025 11:55 AM EDT [facility] External Red Blood Cell (RBC) 3.61(L) 3.80 - 5.20 10*6/uL 01/09/2025 11:55 AM EDT [facility] External Hemoglobin 11.0(L) 12.0 - 16.0 g/dL 01/09/2025 11:55 AM EDT [facility] External Hematocrit 33.1(L) 35.0 - 47.0 % 01/09/2025 11:55 AM EDT [facility] External MCV 92 80 - 100 fL 01/09/2025 11:55 AM EDT [facility] External MCH 31 26 - 35 pg 01/09/2025 11:55 AM EDT [facility] External MCHC 33 32 - 36 g/dL 01/09/2025 11:55 AM EDT [facility] External RDW 17.4(H) 11.0 - 15.0 % 01/09/2025 11:55 AM EDT [facility] External Mean Platelet Volume 7.3 6.2 - 10.5 fL 01/09/2025 11:55 AM EDT [facility] External Platelet Count (Plt) 123(L) 150 - 400 10*3/uL 01/09/2025 11:55 AM EDT [facility] External Neutrophil# 2.7 1.6 - 8.4 10*3/uL 01/09/2025 11:55 AM EDT [facility] External Lymphocyte# 3.5 0.4 - 5.1 10*3/uL 01/09/2025 11:55 AM EDT [facility] External Absolute Monocyte (Abs [place]) 0.3 0.0 - 1.2 10*3/uL 01/09/2025 11:55 AM EDT [facility] External Eosinophils# 0.2 0.0 - 0.8 10*3/uL 01/09/2025 11:55 AM EDT [facility] External Baso# 0.0 0.0 - 0.3 10*3/uL 01/09/2025 11:55 AM EDT [facility] External Neutrophils % 39.0(L) 42.0 - 78.0 % 01/09/2025 11:55 AM EDT [facility] External Lymphocyte % 52.0(H) 11.0 - 47.0 % 01/09/2025 11:55 AM EDT [facility] External Monocyte % 5.0 0.0 - 11.0 % 01/09/2025 11:55 AM EDT [facility] External Eosinophil% 3.0 0.0 - 7.0 % 01/09/2025 11:55 AM EDT [facility] External Basophil % 0.0 0.0 - 3.0 % 01/09/2025 11:55 AM EDT [facility] External Nucleated RBC%-Auto 0.2 0.0 - 0.9 % 01/09/2025 11:55 AM EDT [facility] External Nucleated RBC Absolute 0.01 Not Estab. 10*3/uL 01/09/2025 11:55 AM EDT [facility] Blood Venous blood specimen / Unknown 01/09/2025 10:50 AM EDT 01/09/2025 11:16 AM EDT us Sima Trejo MD LAB BLOOD ORDERABLES Final Re sult [facility] [address] [place] [address], documented in this encounter Visit Diagnoses Diagnosis 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) Chronic lymphoid leukemia, in relapse History of non-Hodgkin's lymphoma Personal history of other lymphatic and hematopoietic neoplasm Weakness Other malaise and fatigue Atrial fibrillation, chronic (CMS/HCC) 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) Chronic lymphoid leukemia, in relapse documented in this encounter Additional Health Concerns Assessment Noted Time PHQ-9 Depression Total Score: 5 11/15/19 25 9:00 AM EDT A fall risk assessment has been complete d for the patient 08/08/2024 2:12 PM EDT documented as of this encounter Care Teams Granite Worker Relationship Specialty Start Date End Date Oren Pressley MD [address] [place] [address] PCP - General Internal Medicine 02/09/23 Sima Trejo MD [address] [phone] Medical Oncologist Hematology and Oncology 08/02/23 documented as of this encounter
--- OUTSIDE RECORDS SUMMARY | 2025-01-30 08:25 | XMS_ITS | Encounter Summary ---
Author Organization [facility] Address [address] [place] [address] Care Team Providers Care Computer Programmer Analyst Name Role Phone Oren Pressley MD Primary Care Provider Sima Trejo MD Unavailable [phone] Reason for Visit * Reason Comments Med Refill Encounter Details Date Type Department Care Team (Late Contact Info) Description 12/21/2024 Refill [place] [address] [place] [address] Sima Trejo MD [address] [place], [place] [address] [address] [address] Social History Tobacco Use [...] (Late Contact Info) Description 02/06/2025 Orders Only [facility] at [address] [place] [address] Sima Trejo MD [address] [place] [address] [place] [phone] 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 ([facility]/HCC) 02/06/2025 10:30 AM EDT Office Visit [facility] at [address] [place] [phone] 02/06/2025 11:30 AM EDT Office Visit [facility] at [address] [place] [address] [facility] [phone] 02/06/2025 12:00 PM EDT Infusion [facility] at [address] [phone] documented as of this encounter Visit Diagnoses Not on filedocumented in this encounter Additional Health Concerns Assessment Noted Time PHQ-9 Depression Total Score: 5 11/15/19 25 9:00 AM EDT A fall risk assessment has been complete d for the patient 08/08/2024 2:12 PM EDT documented as of this encounter Care Teams Computer Programmer Analyst Relationship Specialty Start Date End Date Oren Pressley MD [address] [place] [address] PCP - General Internal Medicine 02/09/23 Sima Trejo MD [facility] [address] [phone] Medical Oncologist Hematology and Oncology 08/02/23 documented as of this encounter
--- OUTSIDE RECORDS SUMMARY | 2025-01-30 08:25 | XMS_ITS | Encounter Summary ---
Author Organization Healthcare Address [address] [place] [address] Care Team Providers Care Barrel Waterer Name Role Phone Pcp, No Primary Care Provider Oren Hull MD Primary Care Provider [phone] Sima Trejo MD Unavailable [phone] Encounter Details Date Type Department Care Team (Late st Contact Info) Description 12/02/2020 Orders Only [facility] at [facility] [address] [place] [phone] Sima Trejo MD [address] [place], [place] [address] [address] [phone] Social History Tobacco Use Types Packs/Day Years [...] st Contact Info) Description 02/06/2025 Orders Only [facility] at [facility] [address] [place] [phone] Sima Trejo MD [address] [address] 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) 02/06/2025 10:30 AM EDT Office Visit [facility] at [facility] [address] [place] [phone] 02/06/2025 11:30 AM EDT Office Visit [facility] at [facility] [address] [place] [phone] Sima Trejo MD [address] [phone] 02/06/2025 12:00 PM EDT Infusion [facility] at [facility] [address] [place] [address] documented as of this encounter Procedures Procedure Name Priority Date/Time Associated Diagnosis Comments CBC WITH AUTO DIFFERENTIAL Routine 12/02/2020 12:56 PM EDT documented in this encounter Results * (ABNORMAL) CBC and Differential (12/02/2020 12:56 PM EDT) External WBC 8.0 3.8 - 10.8 K/uL [facility] External Red Blood Cell (RBC) 3.74(L) 3.80 - 5.20 M/uL [facility] External Hemoglobin 11.1(L) 12.0 - 16.0 G/DL [facility] External Hematocrit 33.5(L) 35.0 - 47.0 % [facility] External MCV 90 80 - 100 fL [facility] External MCH 30 26 - 35 PG [facility] External MCHC 33 32 - 36 G/DL [facility] External RDW 15.4(H) 11.0 - 15.0 % [facility] External Mean Platelet Volume 8.8 6.2 - 10.5 fL [facility] External Platelets 162 130 - 400 K/uL [facility] External Neutrophil# 5.1 1.6 - 8.4 K/uL [facility] External Lymphocyte# 2.0 0.4 - 5.1 K/uL [facility] External Absolute Monocyte (Abs [place]) 0.8 0.0 - 1.2 K/uL [facility] External Eosinophils# 0.1 0.0 - 0.8 K/uL [facility] External Baso# 0.1 0.0 - 0.3 K/uL [facility] External Neutrophils % 62.9 42.0 - 78.0 % [facility] External Lymphocyte % 25.1 11.0 - 47.0 % [facility] External Monocyte % 10.2 0.0 - 11.0 % [facility] External Eosinophil% 0.9 0.0 - 7.0 % [facility] External Basophil % 0.9 0.0 - 3.0 % [facility] External Nucleated RBC%-Auto 0.1 0.0 - 0.9 % [facility] External Nucleated RBC Absolute 0.01 Not Estab. K/uL [facility] 12/02/2020 12:5 6 PM EDT 12/02/2020 1:27 PM EDT us Sima Trejo MD LAB BLOOD ORDERABLES Final Re sult Performing Organization Address City/State/[facility] Co de Phone Number [facility] [address] [place] [address], documented in this encounter Visit Diagnoses Not on filedocumented in this encounter Care Teams Barrel Waterer Relationship Specialty Start Date End Date Pcp, No [address] [place] [address] PCP - General 12/02/20 02/08/23 Oren Pressley MD [address] [place] [address] PCP - General Internal Medicine 02/09/23 Sima Trejo MD [address] [address] Medical Oncologist Hematology and Oncology 08/02/23 documented as of this encounter
--- OUTSIDE RECORDS SUMMARY | 2025-01-30 08:25 | XMS_ITS | Encounter Summary ---
Author Organization Healthcare Address [address] [place] [address] Care Team Providers Care Salon Sales Consultant Name Role Phone Pcp, No Primary Care Provider Oren Hull MD Primary Care Provider [phone] Sima Trejo MD Unavailable [phone] Encounter Details Date Type Department Care Team (Late st Contact Info) Description 12/02/2020 Orders Only [facility] [address] [place] [phone] Sima Trejo MD [address] [place], [place] [address] [address] [phone] Social History Tobacco Use Types Packs/Day Years [...] st Contact Info) Description 02/06/2025 Orders Only [facility] at [facility] [address] [place] [phone] Sima Trejo MD [address] [address] 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) 02/06/2025 10:30 AM EDT Office Visit [facility] [address] [place] [phone] 02/06/2025 11:30 AM EDT Office Visit [facility] [address] [place] [phone] Sima Trejo MD [address] [phone] 02/06/2025 12:00 PM EDT Infusion [facility] [address] [place] [address] documented as of this encounter Procedures Procedure Name Priority Date/Time Associated Diagnosis Comments COMPREHENSIVE METABOLIC PANEL, PLASMA Routine 12/02/2020 12:56 PM EDT documented in this encounter Results * (ABNORMAL) Comprehensive Metabolic Panel, Plasma (12/02/2020 12:56 PM EDT) External Glucose 101(H) 74 - 100 mg/dL [facility] External BUN 15 6 - 20 mg/dL [facility] External Creatinine Blood 1.37(H) 0.50 - 0.95 mg/dL [facility] External BUN/Creat Ratio 11 10 - 20 (calc) [facility] External Sodium 133(L) 136 - 145 mmol/L [facility] External Potassium 4.4 3.4 - 5.0 mmol/L [facility] External Chloride 96(L) 98 - 107 mmol/L [facility] External Carbon Dioxide 22 22 - 31 mmol/L [facility] External Anion Gap (AG) 15 7 - 25 (calc) [facility] External Calcium 9.2 8.6 - 10.2 mg/dL [facility] External Total Protein 7.0 6.4 - 8.3 g/dL [facility] External Albumin 4.2 3.5 - 5.2 g/dL [facility] External Globulin 2.8 1.5 - 4.5 g/dL (calc) [facility] External Albumin/Globulin Ratio 1.5 1.1 - 2.5 (calc) [facility] External Bilirubin Total 0.6 0.1 - 1.2 mg/dL [facility] External Alkaline Phosphatase 59 35 - 106 U/L [facility] External AST (SGOT) 20 0 - 32 U/L [facility] External ALT (SGPT) 13 0 - 33 U/L [facility] External EGFR (If AFR/AM) 43(A) >=60 [facility] External Estimated GFR 37(A) >=60 [facility] Comment: NOTE Chronic kidney disease [...] Re sult [facility] [address] [place] [address], documented in this encounter Visit Diagnoses Not on filedocumented in this encounter Care Teams Salon Sales Consultant Relationship Specialty Start Date End Date Pcp, No [address] [place] [address] PCP - General 12/02/20 02/08/23 Oren Pressley MD [address] [place] [address] PCP - General Internal Medicine 02/09/23 Sima Trejo MD [address] [facility] [address] [place] [address] Medical Oncologist Hematology and Oncology 08/02/23 documented as of this encounter
--- OUTSIDE RECORDS SUMMARY | 2025-01-30 08:25 | XMS_ITS | Encounter Summary ---
Author Organization Healthcare Address [address] [place] [id number] Care Team Providers Care Funeral Service Manager Name Role Phone Oren Pressley MD Primary Care Provider [phone] Sima Trejo MD Unavailable [phone] Encounter Details Date Type Department Care Team (Late st Contact Info) Description 12/12/2024 Orders Only [facility] at [facility] [address] [place] [address] Jo Nur, PharmD Inpatient Pharmacy [address] [place] [address] Social History Tobacco Use Types Packs/Day Years [...] st Contact Info) Description 02/06/2025 Orders Only [facility] [address] [place] [address] Sima Trejo MD [address] [address] 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) 02/06/2025 10:30 AM EDT Office Visit [facility] at [address] [place] [address] 02/06/2025 11:30 AM EDT Office Visit [facility] at [address] [phone] Sima Trejo MD [address] [place] [phone] 02/06/2025 12:00 PM EDT Infusion [facility] at [address] [place] [address] documented as of this encounter Visit Diagnoses Not on filedocumented in this encounter Additional Health Concerns Assessment Noted Time PHQ-9 Depression Total Score: 5 11/15/19 25 9:00 AM EDT A fall risk assessment has been complete d for the patient 08/08/2024 2:12 PM EDT documented as of this encounter Care Teams Funeral Service Manager Relationship Specialty Start Date End Date Oren Pressley MD [address] [place] [address] PCP - General Internal Medicine 02/09/23 Sima Trejo MD [address] [place], [place] [address] [address] Medical Oncologist Hematology and Oncology 08/02/23 documented as of this encounter
--- OUTSIDE RECORDS SUMMARY | 2025-01-30 08:25 | XMS_ITS | Encounter Summary ---
Author Organization Healthcare Address [address] [place] [address] Care Team Providers Care Agent Licensing Clerk Name Role Phone Pcp, No Primary Care Provider Oren Hull MD Primary Care Provider Sima Trejo MD Unavailable [phone] Encounter Details Date Type Department Care Team (Late st Contact Info) Description 12/02/[address] [facility] at [facility] [address] [place] [phone] Sima Trejo MD [address] [place], [place] [address] [address] [phone] Social History Tobacco Use Types Packs/Day Years [...] st Contact Info) Description 02/06/[address] 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 [address] [place] [phone] 02/06/2025 11:30 AM EDT Office Visit [facility] [address] [place] [address] Sima Trejo MD [address] [phone] 02/06/2025 12:00 PM EDT Infusion [facility] at [facility] [address] [place] [address] documented as of this encounter Procedures Procedure Name Priority Date/Time Associated Diagnosis Comments LACTATE DEHYDROGENASE, PLASMA Routine 12/02/2020 12:56 PM EDT documented in this encounter Results * Lactate Dehydrogenase, Plasma (12/02/2020 12:56 PM EDT) External LDH Lactate Dehydrogenase 184 135 - 233 U/L [facility] 12/02/2020 12:5 6 PM EDT 12/02/2020 1:26 PM EDT us Sima Trejo MD LAB BLOOD ORDERABLES Final Re sult [facility] [address] [place] [address], documented in this encounter Visit Diagnoses Not on filedocumented in this encounter Care Teams Agent Licensing Clerk Relationship Specialty Start Date End Date Pcp, No [address] [place] [address] PCP - General 12/02/20 02/08/23 Oren Pressley MD [address] [place], [place] [address] PCP - General Internal Medicine 02/09/23 Sima Trejo MD [address] [place] [address] [address] Medical Oncologist Hematology and Oncology 08/02/23 documented as of this encounter
--- OUTSIDE RECORDS SUMMARY | 2025-01-30 08:26 | XMS_ITS | Encounter Summary ---
Author Organization [employer] ([place], [place], [place], [place]) Address [address] [place] [address] Care Team Providers Care Spring Internship Name Role Phone Oren Pressley MD Primary Care Provider [phone] Encounter Details Date Type Department Care Team (Late st Contact Info) Description 06/22/2019 Transcribed Document [facility] [place] [address] ProviderLaurel MD [address] [place] [id number] Social History Tobacco Use Types Packs/Day Years Used Date Smoking Tobacco: Never Assessed Comments Unknown Sex and Gender Information Value Date Recorded Sex Assigned at Not on file Legal Sex Female 4:44 PM CDT Gender Identity Not on file Sexual Orientation Not on file documented as of this encounter Miscellaneous Notes * Cerner Conversion Note - Laurel Mayer MD - 06/22/2019 11:50 AM MANAGEMENT ADVISOR DATE OF PROCEDURE: 06/22/2019 DC CARDIOVERSION [...] Successful DC cardioversion achieving normal sinus rhythm. /[id number] Yasmany Vazquez MD SR/AQ / SR / MODL /[id number] Electronically signed by Robb, [facility] Conversion Prestressed Concrete Laborer Cerner at 08/07/2022 2:12 PM CDT documented in this encounter Plan of Treatment Not on file documented as of this encounter Visit Diagnoses Not on filedocumented in this encounter Care Teams Spring Internship Relationship Specialty Start Date End Date Oren Pressley MD [address] [place] [address] PCP - General Adolescent Medicine 05/17/23 documented as of this encounter
--- OUTSIDE RECORDS SUMMARY | 2025-01-30 08:26 | XMS_ITS | Encounter Summary ---
Author Organization Healthcare Address [address] [place] [address] Care Team Providers Care Precision Farming Specialist Name Role Phone Oren Pressley MD Primary Care Provider Sima Trejo MD Unavailable [phone] Encounter Details Date Type Department Care Team (Late st Contact Info) Description 01/09/2025 Orders Only [facility] at [facility] [address] [place] [address] Sima Trejo MD [address] [address] Social History Tobacco Use Types [...] st Contact Info) Description 02/06/2025 Orders Only [facility] at [address] [place] [address] Sima Trejo MD [address] [place] [address] 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 ([facility]/HCC) 02/06/2025 10:30 AM EDT Office Visit [facility] at [address] [phone] 02/06/2025 11:30 AM EDT Office Visit [facility] at [address] [address] Sima Trejo MD [address] [place] [phone] 02/06/2025 12:00 PM EDT Infusion [facility] at [address] [phone] documented as of this encounter Procedures Procedure Name Priority Date/Time Associated Diagnosis Comments MANUAL DIFFERENTIAL Routine 01/09/2025 1 0:50 AM EDT documented in this encounter Results * (ABNORMAL) Manual Differential (01/09/2025 10:50 AM EDT) External Band Neutrophil% 1.0 0.0 - 7.0 % 01/09/2025 11:55 AM EDT [facility] External Atypical Lymph% 0 0 - 1 % 01/09/2025 11:55 AM EDT [facility] External Metamyelocyte % 0 0 - 1 % 01/09/2025 11:55 AM EDT [facility] External Myelocyte % 0 0 - 1 % 01/09/2025 11:55 AM EDT [facility] External Promyelocyte% 0 0 % 01/09/2025 11:55 AM EDT [facility] External Blast% 0 0 % 11:55 AM EDT [facility] External Nucleated RBC%-Manual 0 0 - 1 /100{WBC} 01/09/2025 11:55 AM EDT [facility] External Smudge Cells 2(A) 0 /100{WBC} 01/09/2025 11:55 AM EDT [facility] External Platelet Morphology NORMAL 01/09/2025 11:55 AM EDT [facility] External Polychromasia SLIGHT(A) 01/09/2025 11:55 AM EDT [facility] External Ovalocytes SLIGHT(A) 01/09/2025 11:55 AM EDT [facility] 01/09/2025 10:5 0 AM EDT 01/09/2025 11:16 AM EDT us Sima Trejo MD LAB BLOOD ORDERABLES Final Re sult Performing Organization Address City/State/[facility] Co de Phone Number [facility] [address] [place] [address], documented in this encounter Visit Diagnoses Not on filedocumented in this encounter Additional Health Concerns Assessment Noted Time PHQ-9 Depression Total Score: 5 11/15/19 25 9:00 AM EDT A fall risk assessment has been complete d for the patient 08/08/2024 2:12 PM EDT documented as of this encounter Care Teams Precision Farming Specialist Relationship Specialty Start Date End Date Oren Pressley MD [address] [place], [place] [address] PCP - General Internal Medicine 02/09/23 Sima Trejo MD [address] [address] Medical Oncologist Hematology and Oncology 08/02/23 documented as of this encounter
--- OUTSIDE RECORDS SUMMARY | 2025-01-30 08:26 | XMS_ITS | Data Portability ---
Author Organization [facility] Address [address] [place] [address] Care Team Providers Care Process Specialist Name Role Phone COSTA, LESA Hematology/Oncology ADDISON GARSIA JR General Surgeon ZULEYMA HARP Lead Shop Operator Assessment Encounter Date Assessment Date Assessment LastModified by Organization Details LastModified Time 08/04/2021 08/04/2021 RTC in 3 months with CBC, CMP, LDH and uric acid. Please give pt copy of labs. [email or web address] Not available 08/04/2021 13:48:52 11/18/2021 11/18/2021 RTC in 3 months with CBC, CMP, LDH and uric acid. Labs today CBC, CMP, LDH and uric acid. [email or web address] Not available 11/18/2021 15:53:34 02/17/2022 02/17/2022 RTC in 3 months with CBC, CMP, LDH and uric acid. Please give pt copy of labs. Please get CT results from [place]. [email or web address] Not available 02/17/2022 14:52:39 05/26/2022 05/26/2022 RTC in 3 months with CBC, CMP, LDH and uric acid. Please give pt copy of labs. Please get pathology from [facility]. [email or web address] Not available 05/26/2022 14:27:02 09/01/2022 09/01/2022 RTC in 4 months with CBC, CMP, LDH and uric acid. Please give pt copy of labs. [email or web address] Not available 09/01/2022 13:32:17 Plan of Treatment [...] 6.0 K/uL 3.8-10 .8 normal Not Available [facility] [address] [place] [address], [address], 08/04/2021 13:14:55 08/05/19 22 08/04/2021 COMPL ETE BLOOD COUNT red blood cells 3.89 M/uL 3.80-5 .20 normal Not Available [facility] [address] [place] [address], [address], 08/04/2021 13:14:55 08/05/19 22 08/04/2021 COMPL ETE BLOOD COUNT hemoglobin 11.9 g/dL 12.0-1 6.0 low Not Available [facility] [address] [place] [address], [address], 08/04/2021 13:14:55 08/05/19 22 08/04/2021 COMPL ETE BLOOD COUNT hematocrit 36.0 % 35.0-4 7.0 normal Not Available [facility] [address] [place] [address], [address], 08/04/2021 13:14:55 08/05/19 22 08/04/2021 COMPL ETE BLOOD COUNT MCV 93 fL 80-100 normal Not Available [facility] [address] [place] [address], [address], 08/04/2021 13:14:55 08/05/19 22 08/04/2021 COMPL ETE BLOOD COUNT MCH 31 pg 26-35 normal Not Available [facility] [address] [place] [address], [address], 08/04/2021 13:14:55 08/05/19 22 08/04/2021 COMPL ETE BLOOD COUNT MCHC 33 g/dL 32-36 normal Not Available [facility] [address] [place] [address], [address], 08/04/2021 13:14:55 08/05/19 22 08/04/2021 COMPL ETE BLOOD COUNT RDW 15.0 % 11.0-1 5.0 normal Not Available [facility] [address] [place] [address], [address], 08/04/2021 13:14:55 08/05/19 22 08/04/2021 COMPL ETE BLOOD COUNT MPV 7.1 fL 6.2-10 .5 normal Not Available [facility] [address] [place] [address], [address], 08/04/2021 13:14:55 08/05/19 22 08/04/2021 COMPL ETE BLOOD COUNT platelet count 131 K/uL 130-40 0 normal Not Available [facility] [address] [place] [address], [address], 08/04/2021 13:14:55 08/05/19 22 08/04/2021 COMPL ETE BLOOD COUNT neutrophil,a bsolute 4.0 K/uL 1.6-8. 4 normal Not Available [facility] [address] [place] [address], [address], 08/04/2021 13:14:55 08/05/19 22 08/04/2021 COMPL ETE BLOOD COUNT lymphocyte,a bsolute 1.3 K/uL 0.4-5. 1 normal Not Available [facility] [address] [place] [address], [address], 08/04/2021 13:14:55 08/05/19 22 08/04/2021 COMPL ETE BLOOD COUNT monocyte,abs olute 0.4 K/uL 0.0-1. 2 normal Not Available [facility] [address] [place] [address], [address], 08/04/2021 13:14:55 08/05/19 22 08/04/2021 COMPL ETE BLOOD COUNT eosinophil,a bsolute 0.1 K/uL 0.0-0. 8 normal Not Available [facility] [address] [place] [address], [address], 08/04/2021 13:14:55 08/05/19 22 08/04/2021 COMPL ETE BLOOD COUNT basophil,abs olute 0.0 K/uL 0.0-0. 3 normal Not Available [facility] [address] [place] [address], [address], 08/04/2021 13:14:55 08/05/19 22 08/04/2021 COMPL ETE BLOOD COUNT % neutrophils 68.0 % 42.0-7 8.0 normal Not Available [facility] [address] [place] [address], [address], 08/04/2021 13:14:55 08/05/19 22 08/04/2021 COMPL ETE BLOOD COUNT % lymphocytes 21.8 % 11.0-4 7.0 normal Not Available [facility] [address] [place] [address], [address], 08/04/2021 13:14:55 08/05/19 22 08/04/2021 COMPL ETE BLOOD COUNT % monocytes 7.3 % 0.0-11 .0 normal Not Available [facility] [address] [place] [address], [address], 08/04/2021 13:14:55 08/05/19 22 08/04/2021 COMPL ETE BLOOD COUNT % eosinophils 2.1 % 0.0-7. 0 normal Not Available [facility] [address] [place] [address], [address], 08/04/2021 13:14:55 08/05/19 22 08/04/2021 COMPL ETE BLOOD COUNT % basophils 0.8 % 0.0-3. 0 normal Not Available [facility] [address] [place] [address], [address], 08/04/2021 13:14:55 08/05/19 22 08/04/2021 COMPL ETE BLOOD COUNT nucleated red cells 0.1 % 0.0-0. 9 normal Not Available [facility] [address] [place] [address], [address], 08/04/2021 13:14:55 08/05/19 22 08/04/2021 COMPL ETE BLOOD COUNT nucleated RBCs, absolute 0.01 K/uL not estab. normal Not Available [facility] [address] [place] [address], [address], 08/04/2021 13:14:55 08/05/19 22 08/04/2021 COMP. METAB OLIC PANEL glucose 99 mg/dL 74-100 normal Not Available [facility] [address] [place] [address], [address], 08/04/2021 14:32:05 08/05/19 22 08/04/2021 COMP. METAB OLIC PANEL blood urea nitrogen 23 mg/dL 6-20 high Not Available [facility] [address] [place] [address], [address], 08/04/2021 14:32:05 08/05/19 22 08/04/2021 COMP. METAB OLIC PANEL creatinine 1.69 mg/dL 0.50-0 .95 high Not Available [facility] [address] [place] [address], [address], 08/04/2021 14:32:05 08/05/19 22 08/04/2021 COMP. METAB OLIC PANEL BUN/creatini ne ratio 14 (calc ) 10-20 normal Not Available [facility] [address] [place] [address], [address], 08/04/2021 14:32:05 08/05/19 22 08/04/2021 COMP. METAB OLIC PANEL sodium 139 mmol/ L 136-14 5 normal Not Available [facility] [address] [place] [address], [address], 08/04/2021 14:32:05 08/05/19 22 08/04/2021 COMP. METAB OLIC PANEL potassium 4.1 mmol/ L 3.4-5. 0 normal Not Available [facility] [address] [place] [address], [address], 08/04/2021 14:32:05 08/05/19 22 08/04/2021 COMP. METAB OLIC PANEL chloride 105 mmol/ L 98-107 normal Not Available [facility] [address] [place] [address], [address], 08/04/2021 14:32:05 08/05/19 22 08/04/2021 COMP. METAB OLIC PANEL carbon dioxide 20 mmol/ L 22-31 low Not Available [facility] [address] [place] [address], [address], 08/04/2021 14:32:05 08/05/19 22 08/04/2021 COMP. METAB OLIC PANEL anion gap 14 (calc ) 7-25 normal Not Available [facility] [address] [place] [address], [address], 08/04/2021 14:32:05 08/05/19 22 08/04/2021 COMP. METAB OLIC PANEL calcium 9.0 mg/dL 8.6-10 .2 normal Not Available [facility] [address] [place] [address], [address], 08/04/2021 14:32:05 08/05/19 22 08/04/2021 COMP. METAB OLIC PANEL total protein 6.4 g/dL 6.4-8. 3 normal Not Available [facility] [address] [place] [address], [address], 08/04/2021 14:32:05 08/05/19 22 08/04/2021 COMP. METAB OLIC PANEL albumin 3.9 g/dL 3.5-5. 2 normal Not Available [facility] [address] [place] [address], [address], 08/04/2021 14:32:05 08/05/19 22 08/04/2021 COMP. METAB OLIC PANEL globulin 2.5 g/dL_ (calc ) 1.5-4. 5 normal Not Available [facility] [address] [place] [address], [address], 08/04/2021 14:32:05 08/05/19 22 08/04/2021 COMP. METAB OLIC PANEL albumin/glob ulin ratio 1.6 (calc ) 1.1-2. 5 normal Not Available [facility] [address] [place] [address], [address], 08/04/2021 14:32:05 08/05/19 22 08/04/2021 COMP. METAB OLIC PANEL bilirubin, total 0.3 mg/dL 0.1-1. 2 normal Not Available [facility] [address] [place] [address], [address], 08/04/2021 14:32:05 08/05/19 22 08/04/2021 COMP. METAB OLIC PANEL alkaline phosphatase 69 U/L 30-121 normal Not Available [facility] [address] [place] [address], [address], 08/04/2021 14:32:05 08/05/19 22 08/04/2021 COMP. METAB OLIC PANEL AST 11 U/L 0-32 normal Not Available [facility] [address] [place] [address], [address], 08/04/2021 14:32:05 08/05/19 22 08/04/2021 COMP. METAB OLIC PANEL ALT 13 U/L 0-33 normal Not Available [facility] [address] [place] [address], [address], 08/04/2021 14:32:05 08/05/19 22 08/04/2021 COMP. METAB OLIC PANEL GFR 33 >= 60 abnormal Not Available [facility] [address] [place] [address], [address], 08/04/2021 14:32:05 08/05/19 22 08/04/2021 COMP. METAB [...] Lina Campoverde y Found ation [email or web address] :[email or web address] rg/pr anderess ional s/KDO QI/gf r_cal culat orPed Not Available [facility] [address] [place] [address], [address], 08/04/2021 14:32:05 08/05/19 22 08/04/2021 LDH LDH 187 U/L 135-23 3 normal Not Available [facility] [address] [place] [address], [address], 08/04/2021 14:51:42 02/18/20 22 02/17/2022 COMPL ETE BLOOD COUNT white blood cells 6.1 K/uL 3.8-10 .8 normal Not Available [facility] [address] [place] [address], [address], 02/17/2022 12:59:23 02/18/20 22 02/17/2022 COMPL ETE BLOOD COUNT red blood cells 4.03 M/uL 3.80-5 .20 normal Not Available [facility] [address] [place] [address], [address], 02/17/2022 12:59:23 02/18/20 22 02/17/2022 COMPL ETE BLOOD COUNT hemoglobin 12.1 g/dL 12.0-1 6.0 normal Not Available [facility] [address] [place] [address], [address], 02/17/2022 12:59:23 02/18/20 22 02/17/2022 COMPL ETE BLOOD COUNT hematocrit 35.9 % 35.0-4 7.0 normal Not Available [facility] [address] [place] [address], [address], 02/17/2022 12:59:23 02/18/20 22 02/17/2022 COMPL ETE BLOOD COUNT MCV 89 fL 80-100 normal Not Available [facility] [address] [place] [address], [address], 02/17/2022 12:59:23 02/18/20 22 02/17/2022 COMPL ETE BLOOD COUNT MCH 30 pg 26-35 normal Not Available [facility] [address] [place] [address], [address], 02/17/2022 12:59:23 02/18/20 22 02/17/2022 COMPL ETE BLOOD COUNT MCHC 34 g/dL 32-36 normal Not Available [facility] [address] [place] [address], [address], 02/17/2022 12:59:23 02/18/20 22 02/17/2022 COMPL ETE BLOOD COUNT RDW 14.6 % 11.0-1 5.0 normal Not Available [facility] [address] [place] [address], [address], 02/17/2022 12:59:23 02/18/20 22 02/17/2022 COMPL ETE BLOOD COUNT MPV 7.3 fL 6.2-10 .5 normal Not Available [facility] [address] [place] [address], [address], 02/17/2022 12:59:23 02/18/20 22 02/17/2022 COMPL ETE BLOOD COUNT platelet count 180 K/uL 130-40 0 normal Not Available [facility] [address] [place] [address], [address], 02/17/2022 12:59:23 02/18/20 22 02/17/2022 COMPL ETE BLOOD COUNT neutrophil,a bsolute 3.8 K/uL 1.6-8. 4 normal Not Available [facility] [address] [place] [address], [address], 02/17/2022 12:59:23 02/18/20 22 02/17/2022 COMPL ETE BLOOD COUNT lymphocyte,a bsolute 1.6 K/uL 0.4-5. 1 normal Not Available [facility] [address] [place] [address], [address], 02/17/2022 12:59:23 02/18/20 22 02/17/2022 COMPL ETE BLOOD COUNT monocyte,abs olute 0.5 K/uL 0.0-1. 2 normal Not Available [facility] [address] [place] [address], [address], 02/17/2022 12:59:23 02/18/20 22 02/17/2022 COMPL ETE BLOOD COUNT eosinophil,a bsolute 0.1 K/uL 0.0-0. 8 normal Not Available [facility] [address] [place] [address], [address], 02/17/2022 12:59:23 02/18/20 22 02/17/2022 COMPL ETE BLOOD COUNT basophil,abs olute 0.1 K/uL 0.0-0. 3 normal Not Available [facility] [address] [place] [address], [address], 02/17/2022 12:59:23 02/18/20 22 02/17/2022 COMPL ETE BLOOD COUNT % neutrophils 62.4 % 42.0-7 8.0 normal Not Available [facility] [address] [place] [address], [address], 02/17/2022 12:59:23 02/18/20 22 02/17/2022 COMPL ETE BLOOD COUNT % lymphocytes 25.6 % 11.0-4 7.0 normal Not Available [facility] [address] [place] [address], [address], 02/17/2022 12:59:23 02/18/20 22 02/17/2022 COMPL ETE BLOOD COUNT % monocytes 9.0 % 0.0-11 .0 normal Not Available [facility] [address] [place] [address], [address], 02/17/2022 12:59:23 02/18/20 22 02/17/2022 COMPL ETE BLOOD COUNT % eosinophils 2.0 % 0.0-7. 0 normal Not Available [facility] [address] [place] [address], [address], 02/17/2022 12:59:23 02/18/20 22 02/17/2022 COMPL ETE BLOOD COUNT % basophils 1.0 % 0.0-3. 0 normal Not Available [facility] [address] [place] [address], [address], 02/17/2022 12:59:23 02/18/20 22 02/17/2022 COMPL ETE BLOOD COUNT nucleated red cells 0.0 % 0.0-0. 9 normal Not Available [facility] [address] [place] [address], [address], 02/17/2022 12:59:23 02/18/20 22 02/17/2022 COMPL ETE BLOOD COUNT nucleated RBCs, absolute 0.00 K/uL not estab. normal Not Available [facility] [address] [place] [address], [address], 02/17/2022 12:59:23 02/18/20 22 02/17/2022 LDH LDH 163 U/L 135-23 3 normal Not Available [facility] [address] [place] [address], [address], 02/17/2022 13:26:21 02/18/20 22 02/17/2022 COMP. METAB OLIC PANEL glucose 98 mg/dL 74-100 normal Not Available [facility] [address] [place] [address], [address], 02/17/2022 13:26:53 02/18/20 22 02/17/2022 COMP. METAB OLIC PANEL blood urea nitrogen 21 mg/dL 6-20 high Not Available [facility] [address] [place] [address], [address], 02/17/2022 13:26:53 02/18/20 22 02/17/2022 COMP. METAB OLIC PANEL creatinine 1.34 mg/dL 0.50-0 .95 high Not Available [facility] [address] [place] [address], [address], 02/17/2022 13:26:53 02/18/20 22 02/17/2022 COMP. METAB OLIC PANEL BUN/creatini ne ratio 16 (calc ) 10-20 normal Not Available [facility] [address] [place] [address], [address], 02/17/2022 13:26:53 02/18/20 22 02/17/2022 COMP. METAB OLIC PANEL sodium 138 mmol/ L 136-14 5 normal Not Available [facility] [address] [place] [address], [address], 02/17/2022 13:26:53 02/18/20 22 02/17/2022 COMP. METAB OLIC PANEL potassium 4.0 mmol/ L 3.4-5. 0 normal Not Available [facility] [address] [place] [address], [address], 02/17/2022 13:26:53 02/18/20 22 02/17/2022 COMP. METAB OLIC PANEL chloride 103 mmol/ L 98-107 normal Not Available [facility] [address] [place] [address], [address], 02/17/2022 13:26:53 02/18/20 22 02/17/2022 COMP. METAB OLIC PANEL carbon dioxide 24 mmol/ L 22-31 normal Not Available [facility] [address] [place] [address], [address], 02/17/2022 13:26:53 02/18/20 22 02/17/2022 COMP. METAB OLIC PANEL anion gap 11 (calc ) 7-25 normal Not Available [facility] [address] [place] [address], [address], 02/17/2022 13:26:53 02/18/20 22 02/17/2022 COMP. METAB OLIC PANEL calcium 9.1 mg/dL 8.6-10 .2 normal Not Available [facility] [address] [place] [address], [address], 02/17/2022 13:26:53 02/18/20 22 02/17/2022 COMP. METAB OLIC PANEL total protein 6.9 g/dL 6.4-8. 3 normal Not Available [facility] [address] [place] [address], [address], 02/17/2022 13:26:53 02/18/20 22 02/17/2022 COMP. METAB OLIC PANEL albumin 4.2 g/dL 3.5-5. 2 normal Not Available [facility] [address] [place] [address], [address], 02/17/2022 13:26:53 02/18/20 22 02/17/2022 COMP. METAB OLIC PANEL globulin 2.7 g/dL_ (calc ) 1.5-4. 5 normal Not Available [facility] [address] [place] [address], [address], 02/17/2022 13:26:53 02/18/20 22 02/17/2022 COMP. METAB OLIC PANEL albumin/glob ulin ratio 1.6 (calc ) 1.1-2. 5 normal Not Available [facility] [address] [place] [address], [address], 02/17/2022 13:26:53 02/18/20 22 02/17/2022 COMP. METAB OLIC PANEL bilirubin, total 0.4 mg/dL 0.1-1. 2 normal Not Available [facility] [address] [place], [address], 02/17/2022 13:26:53 02/18/20 22 02/17/2022 COMP. METAB OLIC PANEL alkaline phosphatase 79 U/L 30-121 normal Not Available [facility] [address] [place] [address], [address], 02/17/2022 13:26:53 02/18/20 22 02/17/2022 COMP. METAB OLIC PANEL AST 17 U/L 0-32 normal Not Available [facility] [address] [place] [address], [address], 02/17/2022 13:26:53 02/18/20 22 02/17/2022 COMP. METAB OLIC PANEL ALT 15 U/L 0-33 normal Not Available [facility] [address] [place] [address], [address], 02/17/2022 13:26:53 02/18/20 22 02/17/2022 COMP. METAB [...] nts refer to https :[email or web address] rg/pr ofess ional s/KDO QI/gf r_cal culat orPed Not Available [facility] [address] [place] [address], [address], 02/17/2022 13:26:53 02/18/20 22 02/17/2022 URIC ACID [...] mstan my. Arthr itis Care [facility] Res[facility] Vol 64 No 10, 2011 Michelle can Colle ge of Rheum atolo gy ----- ----- ----- ----- ----- ----- ----- ----- ----- ----- ----- ---- Not Available [facility] [place], [address], 02/17/2022 13:26:55 05/26/19 23 05/26/2022 COMPL ETE BLOOD COUNT white blood cells 5.6 K/uL 3.8-10 .8 normal Not Available [facility] [address] [place] [address], [address], 05/26/2022 13:25:38 05/26/19 23 05/26/2022 COMPL ETE BLOOD COUNT red blood cells 4.06 M/uL 3.80-5 .20 normal Not Available [facility] [address] [place] [address], [address], 05/26/2022 13:25:38 05/26/19 23 05/26/2022 COMPL ETE BLOOD COUNT hemoglobin 12.0 g/dL 12.0-1 6.0 normal Not Available [facility] [address] [place] [address], [address], 05/26/2022 13:25:38 05/26/19 23 05/26/2022 COMPL ETE BLOOD COUNT hematocrit 36.0 % 35.0-4 7.0 normal Not Available [facility] [address] [place] [address], [address], 05/26/2022 13:25:38 05/26/19 23 05/26/2022 COMPL ETE BLOOD COUNT MCV 89 fL 80-100 normal Not Available [facility] [address] [place] [address], [address], 05/26/2022 13:25:38 05/26/19 23 05/26/2022 COMPL ETE BLOOD COUNT MCH 30 pg 26-35 normal Not Available [facility] [address] [place] [address], [address], 05/26/2022 13:25:38 05/26/19 23 05/26/2022 COMPL ETE BLOOD COUNT MCHC 33 g/dL 32-36 normal Not Available [facility] [address] [place] [address], [address], 05/26/2022 13:25:38 05/26/19 23 05/26/2022 COMPL ETE BLOOD COUNT RDW 15.9 % 11.0-1 5.0 high Not Available [facility] [address] [place] [address], [address], 05/26/2022 13:25:38 05/26/19 23 05/26/2022 COMPL ETE BLOOD COUNT MPV 7.5 fL 6.2-10 .5 normal Not Available [facility] [address] [place] [address], [address], 05/26/2022 13:25:38 05/26/19 23 05/26/2022 COMPL ETE BLOOD COUNT platelet count 176 K/uL 130-40 0 normal Not Available [facility] [address] [place] [address], [address], 05/26/2022 13:25:38 05/26/19 23 05/26/2022 COMPL ETE BLOOD COUNT neutrophil,a bsolute 3.3 K/uL 1.6-8. 4 normal Not Available [facility] [address] [place] [address], [address], 05/26/2022 13:25:38 05/26/19 23 05/26/2022 COMPL ETE BLOOD COUNT lymphocyte,a bsolute 1.7 K/uL 0.4-5. 1 normal Not Available [facility] [address] [place] [address], [address], 05/26/2022 13:25:38 05/26/19 23 05/26/2022 COMPL ETE BLOOD COUNT monocyte,abs olute 0.5 K/uL 0.0-1. 2 normal Not Available [facility] [address] [place] [address], [address], 05/26/2022 13:25:38 05/26/19 23 05/26/2022 COMPL ETE BLOOD COUNT eosinophil,a bsolute 0.1 K/uL 0.0-0. 8 normal Not Available [facility] [address] [place] [address], [address], 05/26/2022 13:25:38 05/26/19 23 05/26/2022 COMPL ETE BLOOD COUNT basophil,abs olute 0.0 K/uL 0.0-0. 3 normal Not Available [facility] [address] [place] [address], [address], 05/26/2022 13:25:38 05/26/19 23 05/26/2022 COMPL ETE BLOOD COUNT % neutrophils 59.0 % 42.0-7 8.0 normal Not Available [facility] [address] [place] [address], [address], 05/26/2022 13:25:38 05/26/19 23 05/26/2022 COMPL ETE BLOOD COUNT % lymphocytes 30.6 % 11.0-4 7.0 normal Not Available [facility] [address] [place] [address], [address], 05/26/2022 13:25:38 05/26/19 23 05/26/2022 COMPL ETE BLOOD COUNT % monocytes 8.1 % 0.0-11 .0 normal Not Available [facility] [address] [place] [address], [address], 05/26/2022 13:25:38 05/26/19 23 05/26/2022 COMPL ETE BLOOD COUNT % eosinophils 1.7 % 0.0-7. 0 normal Not Available [facility] [address] [place] [address], [address], 05/26/2022 13:25:38 05/26/19 23 05/26/2022 COMPL ETE BLOOD COUNT % basophils 0.6 % 0.0-3. 0 normal Not Available [facility] [address] [place] [address], [address], 05/26/2022 13:25:38 05/26/19 23 05/26/2022 COMPL ETE BLOOD COUNT nucleated red cells 0.0 % 0.0-0. 9 normal Not Available [facility] [address] [place] [address], [address], 05/26/2022 13:25:38 05/26/19 23 05/26/2022 COMPL ETE BLOOD COUNT nucleated RBCs, absolute 0.00 K/uL not estab. normal Not Available [facility] [address] [place] [address], [address], 05/26/2022 13:25:38 05/26/19 23 05/26/2022 LDH LDH 155 U/L 135-23 3 normal Not Available [facility] [address] [place] [address], [address], 05/26/2022 13:51:16 05/26/19 23 05/26/2022 COMP. METAB OLIC PANEL glucose 116 mg/dL 74-100 high Not Available [facility] [address] [place] [address], [address], 05/26/2022 13:54:17 05/26/19 23 05/26/2022 COMP. METAB OLIC PANEL blood urea nitrogen 22 mg/dL 6-20 high Not Available [facility] [address] [place] [address], [address], 05/26/2022 13:54:17 05/26/19 23 05/26/2022 COMP. METAB OLIC PANEL creatinine 1.15 mg/dL 0.50-0 .95 high Not Available [facility] [address] [place] [address], [address], 05/26/2022 13:54:17 05/26/19 23 05/26/2022 COMP. METAB OLIC PANEL BUN/creatini ne ratio 19 (calc ) 10-20 normal Not Available [facility] [address] [place] [address], [address], 05/26/2022 13:54:17 05/26/19 23 05/26/2022 COMP. METAB OLIC PANEL sodium 140 mmol/ L 136-14 5 normal Not Available [facility] [address] [place] [address], [address], 05/26/2022 13:54:17 05/26/19 23 05/26/2022 COMP. METAB OLIC PANEL potassium 4.4 mmol/ L 3.4-5. 0 normal Not Available [facility] [address] [place] [address], [address], 05/26/2022 13:54:17 05/26/19 23 05/26/2022 COMP. METAB OLIC PANEL chloride 104 mmol/ L 98-107 normal Not Available [facility] [address] [place] [address], [address], 05/26/2022 13:54:17 05/26/19 23 05/26/2022 COMP. METAB OLIC PANEL carbon dioxide 25 mmol/ L 22-31 normal Not Available [facility] [address] [place] [address], [address], 05/26/2022 13:54:17 05/26/19 23 05/26/2022 COMP. METAB OLIC PANEL anion gap 11 (calc ) 7-25 normal Not Available [facility] [address] [place] [address], [address], 05/26/2022 13:54:17 05/26/19 23 05/26/2022 COMP. METAB OLIC PANEL calcium 9.5 mg/dL 8.6-10 .2 normal Not Available [facility] [address] [place] [address], [address], 05/26/2022 13:54:17 05/26/19 23 05/26/2022 COMP. METAB OLIC PANEL total protein 7.0 g/dL 6.4-8. 3 normal Not Available [facility] [address] [place] [address], [address], 05/26/2022 13:54:17 05/26/19 23 05/26/2022 COMP. METAB OLIC PANEL albumin 4.3 g/dL 3.5-5. 2 normal Not Available [facility] [address] [place] [address], [address], 05/26/2022 13:54:17 05/26/19 23 05/26/2022 COMP. METAB OLIC PANEL globulin 2.7 g/dL_ (calc ) 1.5-4. 5 normal Not Available [facility] [address] [place] [address], [address], 05/26/2022 13:54:17 05/26/19 23 05/26/2022 COMP. METAB OLIC PANEL albumin/glob ulin ratio 1.6 (calc ) 1.1-2. 5 normal Not Available [facility] [address] [place], [address], 05/26/2022 13:54:17 05/26/19 23 05/26/2022 COMP. METAB OLIC PANEL bilirubin, total 0.4 mg/dL 0.1-1. 2 normal Not Available [facility] [address] [place] [address], [address], 05/26/2022 13:54:17 05/26/19 23 05/26/2022 COMP. METAB OLIC PANEL alkaline phosphatase 71 U/L 30-121 normal Not Available [facility] [address] [place] [address], [address], 05/26/2022 13:54:17 05/26/19 23 05/26/2022 COMP. METAB OLIC PANEL AST 18 U/L 0-32 normal Not Available [facility] [address] [place] [address], [address], 05/26/2022 13:54:17 05/26/19 23 05/26/2022 COMP. METAB OLIC PANEL ALT 15 U/L 0-33 normal Not Available [facility] [address] [place] [address], [address], 05/26/2022 13:54:17 05/26/19 23 05/26/2022 COMP. METAB [...] refer to https ://heike [email or web address] rg/pr anderess catherineal s/KDO QI/gf r_cal culat orPed Not Available [facility] [address] [place] [address], [address], 05/26/2022 13:54:17 05/26/19 23 05/26/2022 URIC ACID [...] mstan my. Arthr itis Care and Resea [facility] Vol 64 No 10, 2011 Michelle can Colle ge of Rheum atolo gy ----- ----- ----- ----- ----- ----- ----- ----- ----- ----- ----- ---- Not Available [facility] [address] [place] [address], [address], 05/26/2022 13:54:18 09/02/19 23 09/01/2022 COMPL ETE BLOOD COUNT white blood cells 6.8 10*3/ uL 3.8-10 .8 normal Not Available [facility] [address] [place] [address], [address], 09/01/2022 12:52:29 09/02/19 23 09/01/2022 COMPL ETE BLOOD COUNT red blood cells 4.15 10*6/ uL 3.80-5 .20 normal Not Available [facility] [address] [place], [address], 09/01/2022 12:52:29 09/02/19 23 09/01/2022 COMPL ETE BLOOD COUNT hemoglobin 12.5 g/dL 12.0-1 6.0 normal Not Available [facility] [address] [place] [address], [address], 09/01/2022 12:52:29 09/02/19 23 09/01/2022 COMPL ETE BLOOD COUNT hematocrit 37.0 % 35.0-4 7.0 normal Not Available [facility] [address] [place] [address], [address], 09/01/2022 12:52:29 09/02/19 23 09/01/2022 COMPL ETE BLOOD COUNT MCV 89 fL 80-100 normal Not Available [facility] [address] [place] [address], [address], 09/01/2022 12:52:29 09/02/1909/01/2022 COMPL ETE BLOOD COUNT MCH 30 pg 26-35 normal Not Available [facility] [address] [place] [address], [address], 09/01/2022 12:52:29 09/02/19 23 09/01/2022 COMPL ETE BLOOD COUNT MCHC 34 g/dL 32-36 normal Not Available [facility] [address] [place] [address], [address], 09/01/2022 12:52:29 09/02/19 23 09/01/2022 COMPL ETE BLOOD COUNT RDW 14.1 % 11.0-1 5.0 normal Not Available [facility] [address] [place] [address], [address], 09/01/2022 12:52:29 09/02/19 23 09/01/2022 COMPL ETE BLOOD COUNT MPV 7.5 fL 6.2-10 .5 normal Not Available [facility] [address] [place] [address], [address], 09/01/2022 12:52:29 09/02/1909/01/2022 COMPL ETE BLOOD COUNT platelet count 194 10*3/ uL 130-40 0 normal Not Available [facility] [address] [place] [address], [address], 09/01/2022 12:52:29 09/02/19 23 09/01/2022 COMPL ETE BLOOD COUNT neutrophil,a bsolute 4.0 10*3/ uL 1.6-8. 4 normal Not Available [facility] [address] [place] [address], [address], 09/01/2022 12:52:29 09/02/1909/01/2022 COMPL ETE BLOOD COUNT lymphocyte,a bsolute 2.0 10*3/ uL 0.4-5. 1 normal Not Available [facility] [address] [place] [address], [address], 09/01/2022 12:52:29 09/02/1909/01/2022 COMPL ETE BLOOD COUNT monocyte,abs olute 0.5 10*3/ uL 0.0-1. 2 normal Not Available [facility] [address] [place] [address], [address], 09/01/2022 12:52:29 09/02/1909/01/2022 COMPL ETE BLOOD COUNT eosinophil,a bsolute 0.2 10*3/ uL 0.0-0. 8 normal Not Available [facility] [address] [place] [address], [address], 09/01/2022 12:52:29 09/02/1909/01/2022 COMPL ETE BLOOD COUNT basophil,abs olute 0.1 10*3/ uL 0.0-0. 3 normal Not Available [facility] [address] [place] [address], [address], 09/01/2022 12:52:29 09/02/1909/01/2022 COMPL ETE BLOOD COUNT % neutrophils 59.2 % 42.0-7 8.0 normal Not Available [facility] [address] [place] [address], [address], 09/01/2022 12:52:29 09/02/1909/01/2022 COMPL ETE BLOOD COUNT % lymphocytes 29.7 % 11.0-4 7.0 normal Not Available [facility] [address] [place] [address], [address], 09/01/2022 12:52:29 09/02/19 23 09/01/2022 COMPL ETE BLOOD COUNT % monocytes 7.7 % 0.0-11 .0 normal Not Available [facility] [address] [place] [address], [address], 09/01/2022 12:52:29 09/02/19 23 09/01/2022 COMPL ETE BLOOD COUNT % eosinophils 2.6 % 0.0-7. 0 normal Not Available [facility] [address] [place] [address], [address], 09/01/2022 12:52:29 09/02/19 23 09/01/2022 COMPL ETE BLOOD COUNT % basophils 0.8 % 0.0-3. 0 normal Not Available [facility] [address] [place] [address], [address], 09/01/2022 12:52:29 09/02/19 23 09/01/2022 COMPL ETE BLOOD COUNT nucleated red cells 0.0 % 0.0-0. 9 normal Not Available [facility] [address] [place] [address], [address], 09/01/2022 12:52:29 09/02/19 23 09/01/2022 COMPL ETE BLOOD COUNT nucleated RBCs, absolute 0.00 10*3/ uL not estab. normal Not Available [facility] [address] [place] [address], [address], 09/01/2022 12:52:29 09/02/19 23 09/01/2022 COMP. METAB OLIC PANEL glucose 121 mg/dL 74-100 high Not Available [facility] [address] [place] [address], [address], 09/01/2022 13:03:18 09/02/19 23 09/01/2022 COMP. METAB OLIC PANEL blood urea nitrogen 18 mg/dL 6-20 normal Not Available [facility] [address] [place] [address], [address], 09/01/2022 13:03:18 09/02/19 23 09/01/2022 COMP. METAB OLIC PANEL creatinine 1.32 mg/dL 0.50-0 .95 high Not Available [facility] [address] [place] [address], [address], 09/01/2022 13:03:18 09/02/19 23 09/01/2022 COMP. METAB OLIC PANEL BUN/creatini ne ratio 14 (calc ) 10-20 normal Not Available [facility] [address] [place] [address], [address], 09/01/2022 13:03:18 09/02/19 23 09/01/2022 COMP. METAB OLIC PANEL sodium 137 mmol/ L 136-14 5 normal Not Available [facility] [address] [place] [address], [address], 09/01/2022 13:03:18 09/02/19 23 09/01/2022 COMP. METAB OLIC PANEL potassium 4.1 mmol/ L 3.4-5. 0 normal Not Available [facility] [address] [place] [address], [address], 09/01/2022 13:03:18 09/02/19 23 09/01/2022 COMP. METAB OLIC PANEL chloride 99 mmol/ L 98-107 normal Not Available [facility] [address] [place] [address], [address], 09/01/2022 13:03:18 09/02/19 23 09/01/2022 COMP. METAB OLIC PANEL carbon dioxide 25 mmol/ L 22-31 normal Not Available [facility] [address] [place] [address], [address], 09/01/2022 13:03:18 09/02/19 23 09/01/2022 COMP. METAB OLIC PANEL anion gap 13 (calc ) 7-25 normal Not Available [facility] [address] [place] [address], [address], 09/01/2022 13:03:18 09/02/19 23 09/01/2022 COMP. METAB OLIC PANEL calcium 9.5 mg/dL 8.6-10 .2 normal Not Available [facility] [address] [place] [address], [address], 09/01/2022 13:03:18 09/02/19 23 09/01/2022 COMP. METAB OLIC PANEL total protein 7.3 g/dL 6.4-8. 3 normal Not Available [facility] [address] [place] [address], [address], 09/01/2022 13:03:18 09/02/19 23 09/01/2022 COMP. METAB OLIC PANEL albumin 4.3 g/dL 3.5-5. 2 normal Not Available [facility] [address] [place] [address], [address], 09/01/2022 13:03:18 09/02/19 23 09/01/2022 COMP. METAB OLIC PANEL globulin 3.0 1.5-4. 5 normal Not Available [facility] [address] [place] [address], [address], 09/01/2022 13:03:18 09/02/19 23 09/01/2022 COMP. METAB OLIC PANEL albumin/glob ulin ratio 1.4 (calc ) 1.1-2. 5 normal Not Available [facility] [address] [place] [address], [address], 09/01/2022 13:03:18 09/02/19 23 09/01/2022 COMP. METAB OLIC PANEL bilirubin, total 0.8 mg/dL 0.1-1. 2 normal Not Available [facility] [address] [place] [address], [place], [address], 09/01/2022 13:03:18 09/02/19 23 09/01/2022 COMP. METAB OLIC PANEL alkaline phosphatase 67 U/L 30-121 normal Not Available [facility] [address] [place], [address], 09/01/2022 13:03:18 09/02/19 23 09/01/2022 COMP. METAB OLIC PANEL AST 15 U/L 0-32 normal Not Available [facility] [address] [place], [address], 09/01/2022 13:03:18 09/02/19 23 09/01/2022 COMP. METAB OLIC PANEL ALT 8 U/L 0-33 normal Not Available [facility] [address] [place], [address], 09/01/2022 13:03:18 09/02/19 23 09/01/2022 COMP. METAB OLIC PANEL GFR 41 >= 60 abnormal NOT E New calcu latio n for GFR (CKD- EPI 2020) is formu lated witho ut race adjus tment facto rs at the recom menda tion of the [facility] Campbell atcatherine and [employer] can [employer] ty of Nephr ology . This calcu latio n has not been valid ated in pregn ant women . For pedia tric patie nts refer to https ://[email or web address] rg/pr lia ional s/KDO QI/gf r_cal culat orPed Not Available [facility] [address] [place], [address], 09/01/2022 13:03:18 09/02/19 23 09/01/2022 URIC ACID [...] mstan my. Arthr itis Care and Resea [facility] Vol 64 No 10, 2011 Michelle puentes Colle ge of Rheum atolo gy ----- ----- ----- ----- ----- ----- ----- ----- ----- ----- ----- ---- Not Available [facility] [address] [place] [address], [address], 09/01/2022 13:03:19 09/02/19 23 09/01/2022 LDH LDH 172 U/L 135-23 3 normal Not Available [facility] [address] [place] [address], [address], 09/01/2022 13:20:20 01/13/20 23 01/12/2023 COMP. METAB OLIC PANEL glucose 109 mg/dL 74-100 high Not Available [facility] [address] [place] [address], [address], 01/12/2023 15:02:07 01/13/20 23 01/12/2023 COMP. METAB OLIC PANEL blood urea nitrogen 19 mg/dL 6-20 normal Not Available [facility] [address] [place] [address], [address], 01/12/2023 15:02:07 01/13/20 23 01/12/2023 COMP. METAB OLIC PANEL creatinine 1.35 mg/dL 0.50-0 .95 high Not Available [facility] [address] [place] [address], [address], 01/12/2023 15:02:07 01/13/20 23 01/12/2023 COMP. METAB OLIC PANEL BUN/creatini ne ratio 14 (calc ) 10-20 normal Not Available [facility] [address] [place] [address], [address], 01/12/2023 15:02:07 01/13/20 23 01/12/2023 COMP. METAB OLIC PANEL sodium 139 mmol/ L 136-14 5 normal Not Available [facility] [address] [place] [address], [address], 01/12/2023 15:02:07 01/13/20 23 01/12/2023 COMP. METAB OLIC PANEL potassium 4.5 mmol/ L 3.4-5. 0 normal Not Available [facility] [address] [place] [address], [address], 01/12/2023 15:02:07 01/13/20 23 01/12/2023 COMP. METAB OLIC PANEL chloride 104 mmol/ L 98-107 normal Not Available [facility] [address] [place] [address], [address], 01/12/2023 15:02:07 01/13/20 23 01/12/2023 COMP. METAB OLIC PANEL carbon dioxide 24 mmol/ L 22-31 normal Not Available [facility] [address] [place] [address], [address], 01/12/2023 15:02:07 01/13/20 23 01/12/2023 COMP. METAB OLIC PANEL anion gap 11 (calc ) 7-25 normal Not Available [facility] [address] [place] [address], [address], 01/12/2023 15:02:07 01/13/20 23 01/12/2023 COMP. METAB OLIC PANEL calcium 9.1 mg/dL 8.6-10 .2 normal Not Available [facility] [address] [place] [address], [address], 01/12/2023 15:02:07 01/13/20 23 01/12/2023 COMP. METAB OLIC PANEL total protein 6.8 g/dL 6.4-8. 3 normal Not Available [facility] [address] [place] [address], [address], 01/12/2023 15:02:07 01/13/20 23 01/12/2023 COMP. METAB OLIC PANEL albumin 4.2 g/dL 3.5-5. 2 normal Not Available [facility] [address] [place] [address], [address], 01/12/2023 15:02:07 01/13/20 23 01/12/2023 COMP. METAB OLIC PANEL globulin 2.6 1.5-4. 5 normal Not Available [facility] [address] [place] [address], [address], 01/12/2023 15:02:07 01/13/20 23 01/12/2023 COMP. METAB OLIC PANEL albumin/glob ulin ratio 1.6 (calc ) 1.1-2. 5 normal Not Available [facility] [address] [place] [address], [address], 01/12/2023 15:02:07 01/13/20 23 01/12/2023 COMP. METAB OLIC PANEL bilirubin, total 0.6 mg/dL 0.1-1. 2 normal Not Available [facility] [address] [place] [address], [address], 01/12/2023 15:02:07 01/13/20 23 01/12/2023 COMP. METAB OLIC PANEL alkaline phosphatase 63 U/L 30-121 normal Not Available [facility] [address] [place] [address], [address], 01/12/2023 15:02:07 01/13/20 23 01/12/2023 COMP. METAB OLIC PANEL AST 13 U/L 0-32 normal Not Available [facility] [address] [place] [address], [address], 01/12/2023 15:02:07 01/13/20 23 01/12/2023 COMP. METAB OLIC PANEL ALT 10 U/L 0-33 normal Not Available [facility] [address] [place], [address], 01/12/2023 15:02:07 01/13/20 23 01/12/2023 COMP. METAB OLIC PANEL GFR 40 >= 60 abnormal NOT E New calcu latio n for GFR (CKD- EPI 2020) is formu lated witho ut race adjus tment facto rs at the recom menda tion of the Lina galindo and Michelle Caldera ty of Nephr ology . This calcu latio n has not been valid ated in pregn ant women . For pedia tric patie nts refer to https ://[email or web address] [email or web address] rg/pr lia adorno s/KDO QI/gf r_cal culat orPed Not Available [facility] [address] [place], [address], 01/12/2023 15:02:07 01/13/20 23 01/12/2023 URIC ACID uric acid 7.5 mg/dL 2.4-5. 7 high Refer ence range s are based on popul ation norms and do not neces leesa slater late with treat ment targe ts. In patie nts with an estab lishe d diagn osis of gout under going Urate Lower ing Thera py (ULT) , the 2011 Michelle Agustni ge of Rheum atolo gy James hanna s for Manag ement of Gout recom mend a targe t uric acid level of < 6 mg/dL in all patie nts, or lower in certa in circu mstan my. Arthr itis Care and Resea [facility] Vol 64 No 10, 2011 Michelle Agustin ge of Rheum atolo gy ----- ----- ----- ----- ----- ----- ----- ----- ----- ----- ----- ---- Not Available [facility] [address] [place] [address], [address], 01/12/2023 15:02:09 01/13/20 23 01/12/2023 LDH LDH 167 U/L 135-23 3 normal Not Available [facility] [address] [place] [address], [address], 01/12/2023 15:02:55 01/13/20 23 01/12/2023 COMPL ETE BLOOD COUNT white blood cells 7.6 10*3/ uL 3.8-10 .8 normal RESUL TS RECHE CKED Not Available [facility] [address] [place] [address], [address], 01/12/2023 15:09:32 01/13/20 23 01/12/2023 COMPL ETE BLOOD COUNT red blood cells 4.03 10*6/ uL 3.80-5 .20 normal Not Available [facility] [address] [place] [address], [address], 01/12/2023 15:09:32 01/13/20 23 01/12/2023 COMPL ETE BLOOD COUNT hemoglobin 12.0 g/dL 12.0-1 6.0 normal Not Available [facility] [address] [place] [address], [address], 01/12/2023 15:09:32 01/13/20 23 01/12/2023 COMPL ETE BLOOD COUNT hematocrit 36.2 % 35.0-4 7.0 normal Not Available [facility] [address] [place] [address], [address], 01/12/2023 15:09:32 01/13/20 23 01/12/2023 COMPL ETE BLOOD COUNT MCV 90 fL 80-100 normal Not Available [facility] [address] [place] [address], [address], 01/12/2023 15:09:32 01/13/20 23 01/12/2023 COMPL ETE BLOOD COUNT MCH 30 pg 26-35 normal Not Available [facility] [address] [place] [address], [address], 01/12/2023 15:09:32 01/13/20 23 01/12/2023 COMPL ETE BLOOD COUNT MCHC 33 g/dL 32-36 normal Not Available [facility] [address] [place] [address], [address], 01/12/2023 15:09:32 01/13/20 23 01/12/2023 COMPL ETE BLOOD COUNT RDW 14.8 % 11.0-1 5.0 normal Not Available [facility] [address] [place] [address], [address], 01/12/2023 15:09:32 01/13/20 23 01/12/2023 COMPL ETE BLOOD COUNT MPV 7.7 fL 6.2-10 .5 normal Not Available [facility] [address] [place] [address], [address], 01/12/2023 15:09:32 01/13/20 23 01/12/2023 COMPL ETE BLOOD COUNT platelet count 151 10*3/ uL 130-40 0 normal Not Available [facility] [address] [place] [address], [address], 01/12/2023 15:09:32 01/13/20 23 01/12/2023 COMPL ETE BLOOD COUNT neutrophil,a bsolute 4.0 10*3/ uL 1.6-8. 4 normal Not Available [facility] [address] [place] [address], [address], 01/12/2023 15:09:32 01/13/20 23 01/12/2023 COMPL ETE BLOOD COUNT lymphocyte,a bsolute 3.3 10*3/ uL 0.4-5. 1 normal Not Available [facility] [address] [place] [address], [address], 01/12/2023 15:09:32 01/13/20 23 01/12/2023 COMPL ETE BLOOD COUNT monocyte,abs olute 0.2 10*3/ uL 0.0-1. 2 normal Not Available [facility] [address] [place] [address], [address], 01/12/2023 15:09:32 01/13/20 23 01/12/2023 COMPL ETE BLOOD COUNT eosinophil,a bsolute 0.1 10*3/ uL 0.0-0. 8 normal Not Available [facility] [address] [place] [address], [address], 01/12/2023 15:09:32 01/13/20 23 01/12/2023 COMPL ETE BLOOD COUNT basophil,abs olute 0.0 10*3/ uL 0.0-0. 3 normal Not Available [facility] [address] [place] [address], [address], 01/12/2023 15:09:32 01/13/20 23 01/12/2023 COMPL ETE BLOOD COUNT % neutrophils 52.0 % 42.0-7 8.0 normal Not Available [facility] [address] [place] [address], [address], 01/12/2023 15:09:32 01/13/20 23 01/12/2023 COMPL ETE BLOOD COUNT % lymphocytes 44.0 % 11.0-4 7.0 normal Not Available [facility] [address] [place] [address], [address], 01/12/2023 15:09:32 01/13/20 23 01/12/2023 COMPL ETE BLOOD COUNT % monocytes 3.0 % 0.0-11 .0 normal Not Available [facility] [address] [place] [address], [address], 01/12/2023 15:09:32 01/13/20 23 01/12/2023 COMPL ETE BLOOD COUNT % eosinophils 1.0 % 0.0-7. 0 normal Not Available [facility] [address] [place] [address], [address], 01/12/2023 15:09:32 01/13/20 23 01/12/2023 COMPL ETE BLOOD COUNT % basophils 0.0 % 0.0-3. 0 normal Not Available [facility] [address] [place] [address], [address], 01/12/2023 15:09:32 01/13/20 23 01/12/2023 COMPL ETE BLOOD COUNT nucleated red cells 0.0 % 0.0-0. 9 normal Not Available [facility] [address] [place] [address], [address], 01/12/2023 15:09:32 01/13/20 23 01/12/2023 COMPL ETE BLOOD COUNT nucleated RBCs, absolute 0.00 10*3/ uL not estab. normal Not Available [facility] [address] [place] [address], [address], 01/12/2023 15:09:32 01/13/20 23 01/12/2023 MANUA L DIFFE RENTI AL % band neutrophils 0.0 % 0.0-7. 0 normal Not Available [facility] [address] [place] [address], [address], 01/12/2023 15:09:35 01/13/20 23 01/12/2023 MANUA L DIFFE RENTI AL % atypical lymphocytes 0 % 0-1 normal Not Available [facility] [address] [place] [address], [address], 01/12/2023 15:09:35 01/13/20 23 01/12/2023 MANUA L DIFFE RENTI AL % metamyelocyt es 0 % 0-1 normal Not Available [facility] [address] [place] [address], [address], 01/12/2023 15:09:35 01/13/20 23 01/12/2023 MANUA L DIFFE RENTI AL % myelocytes 0 % 0-1 normal Not Available [facility] [address] [place] [address], [address], 01/12/2023 15:09:35 01/13/20 23 01/12/2023 MANUA L DIFFE RENTI AL % promyelocyte s 0 % 0 normal Not Available [facility] [address] [place] [address], [address], 01/12/2023 15:09:35 01/13/20 23 01/12/2023 MANUA L DIFFE RENTI AL % blast 0 % 0 normal Not Available [facility] [address] [place] [address], [address], 01/12/2023 15:09:35 01/13/20 23 01/12/2023 MANUA L DIFFE RENTI AL nucleated red cells 0 /100{ WBC} 0-1 normal Not Available [facility] [address] [place] [address], [address], 01/12/2023 15:09:35 01/13/20 23 01/12/2023 MANUA L DIFFE RENTI AL smudge cells 0 /100{ WBC} 0 normal Not Available [facility] Laboratory [address] [place] [address], [address], 01/12/2023 15:09:35 01/13/20 23 01/12/2023 MANUA L DIFFE RENTI AL platelet morphology NORMAL normal Not Available [facility] [address] [place] [address], [address], 01/12/2023 15:09:35 01/13/20 23 01/12/2023 MANUA L DIFFE RENTI AL hypochromasi a SLIGHT abnormal Not Available [facility] [address] [place] [address], [address], 01/12/2023 15:09:35 01/13/20 23 01/12/2023 MANUA L DIFFE RENTI AL ovalocytes SLIGHT abnormal Not Available [facility] [address] [place] [address], [address], 01/12/2023 15:09:35 02/10/20 23 02/09/2023 COMP. METAB OLIC PANEL glucose 108 mg/dL 74-100 high Not Available [facility] [address] [place] [address], [address], 02/09/2023 14:33:27 02/10/20 23 02/09/2023 COMP. METAB OLIC PANEL blood urea nitrogen 18 mg/dL 6-20 normal Not Available [facility] [address] [place] [address], [address], 02/09/2023 14:33:27 02/10/20 23 02/09/2023 COMP. METAB OLIC PANEL creatinine 1.31 mg/dL 0.50-0 .95 high Not Available [facility] [address] [place] [address], [address], 02/09/2023 14:33:27 02/10/20 23 02/09/2023 COMP. METAB OLIC PANEL BUN/creatini ne ratio 14 (calc ) 10-20 normal Not Available [facility] [address] [place] [address], [address], 02/09/2023 14:33:27 02/10/20 23 02/09/2023 COMP. METAB OLIC PANEL sodium 136 mmol/ L 136-14 5 normal Not Available [facility] [address] [place] [address], [address], 02/09/2023 14:33:27 02/10/20 23 02/09/2023 COMP. METAB OLIC PANEL potassium 4.1 mmol/ L 3.4-5. 0 normal Not Available [facility] [address] [place] [address], [address], 02/09/2023 14:33:27 02/10/20 23 02/09/2023 COMP. METAB OLIC PANEL chloride 101 mmol/ L 98-107 normal Not Available [facility] [address] [place] [address], [address], 02/09/2023 14:33:27 02/10/20 23 02/09/2023 COMP. METAB OLIC PANEL carbon dioxide 25 mmol/ L 22-31 normal Not Available [facility] [address] [place] [address], [address], 02/09/2023 14:33:27 02/10/20 23 02/09/2023 COMP. METAB OLIC PANEL anion gap 10 (calc ) 7-25 normal Not Available [facility] [address] [place] [address], [address], 02/09/2023 14:33:27 02/10/20 23 02/09/2023 COMP. METAB OLIC PANEL calcium 9.1 mg/dL 8.6-10 .2 normal Not Available [facility] [address] [place] [address], [address], 02/09/2023 14:33:27 02/10/20 23 02/09/2023 COMP. METAB OLIC PANEL total protein 6.8 g/dL 6.4-8. 3 normal Not Available [facility] [address] [place] [address], [address], 02/09/2023 14:33:27 02/10/20 23 02/09/2023 COMP. METAB OLIC PANEL albumin 4.2 g/dL 3.5-5. 2 normal Not Available [facility] [address] [place] [address], [address], 02/09/2023 14:33:27 02/10/20 23 02/09/2023 COMP. METAB OLIC PANEL globulin 2.6 1.5-4. 5 normal Not Available [facility] [address] [place] [address], [address], 02/09/2023 14:33:27 02/10/20 23 02/09/2023 COMP. METAB OLIC PANEL albumin/glob ulin ratio 1.6 (calc ) 1.1-2. 5 normal Not Available [facility] [address] [place], [address], 02/09/2023 14:33:27 02/10/20 23 02/09/2023 COMP. METAB OLIC PANEL bilirubin, total 0.7 mg/dL 0.1-1. 2 normal Not Available [facility] [address] [place], [address], 02/09/2023 14:33:27 02/10/20 23 02/09/2023 COMP. METAB OLIC PANEL alkaline phosphatase 63 U/L 30-121 normal Not Available [facility] [address] [place] [address], [address], 02/09/2023 14:33:27 02/10/20 23 02/09/2023 COMP. METAB OLIC PANEL AST 14 U/L 0-32 normal Not Available [facility] [address] [place] [address], [address], 02/09/2023 14:33:27 02/10/20 23 02/09/2023 COMP. METAB OLIC PANEL ALT 9 U/L 0-33 normal Not Available [facility] [address] [place] [address], [address], 02/09/2023 14:33:27 02/10/20 23 02/09/2023 COMP. METAB OLIC PANEL GFR 41 >= 60 abnormal NOT E New calcu latio n for GFR (CKD- EPI 2020) is formu lated witho ut race adjus tment facto rs at the recom menda tion of the [facility] . This calcu latio n has not been valid ated in pregn ant women . For pedia tric patie nts refer to https ://heike [email or web address] claudio/pr ofess ional s/KDO QI/gf r_cal culat orPed Not Available [facility] [address] [place], [address], 02/09/2023 14:33:27 02/10/20 23 02/09/2023 URIC ACID [...] mstan my. Arthr itis [facility] Vol 64 No 10, 2011 Michelle puentes Colle ge of Rheum atolo gy ----- ----- ----- ----- ----- ----- ----- ----- ----- ----- ----- ---- Not Available [facility] [address] [place], [address], 02/09/2023 14:33:29 02/10/20 23 02/09/2023 LDH LDH 165 U/L 135-23 3 normal Not Available [facility] [address] [place], [address], 02/09/2023 14:47:40 02/10/20 23 02/09/2023 COMPL ETE BLOOD COUNT white blood cells 8.3 10*3/ uL 3.8-10 .8 normal Not Available [facility] [address] [place], [address], 02/09/2023 14:51:28 02/10/20 23 02/09/2023 COMPL ETE BLOOD COUNT red blood cells 4.15 10*6/ uL 3.80-5 .20 normal Not Available [facility] [address] [place] [address], [address], 02/09/2023 14:51:28 02/10/20 23 02/09/2023 COMPL ETE BLOOD COUNT hemoglobin 12.3 g/dL 12.0-1 6.0 normal Not Available [facility] [address] [place] [address], [address], 02/09/2023 14:51:28 02/10/20 23 02/09/2023 COMPL ETE BLOOD COUNT hematocrit 36.5 % 35.0-4 7.0 normal Not Available [facility] [address] [place] [address], [address], 02/09/2023 14:51:28 02/10/20 23 02/09/2023 COMPL ETE BLOOD COUNT MCV 88 fL 80-100 normal Not Available [facility] [address] [place] [address], [address], 02/09/2023 14:51:28 02/10/20 23 02/09/2023 COMPL ETE BLOOD COUNT MCH 30 pg 26-35 normal Not Available [facility] [address] [place] [address], [address], 02/09/2023 14:51:28 02/10/20 23 02/09/2023 COMPL ETE BLOOD COUNT MCHC 34 g/dL 32-36 normal Not Available [facility] [address] [place] [address], [address], 02/09/2023 14:51:28 02/10/20 23 02/09/2023 COMPL ETE BLOOD COUNT RDW 14.5 % 11.0-1 5.0 normal Not Available [facility] [address] [place] [address], [address], 02/09/2023 14:51:28 02/10/20 23 02/09/2023 COMPL ETE BLOOD COUNT MPV 7.6 fL 6.2-10 .5 normal Not Available [facility] [address] [place] [address], [address], 02/09/2023 14:51:28 02/10/2002/09/2023 COMPL ETE BLOOD COUNT platelet count 184 10*3/ uL 150-40 0 normal Not Available [facility] [address] [place] [address], [address], 02/09/2023 14:51:28 02/10/20 23 02/09/2023 COMPL ETE BLOOD COUNT neutrophil,a bsolute 4.2 10*3/ uL 1.6-8. 4 normal Not Available [facility] [address] [place] [address], [address], 02/09/2023 14:51:28 02/10/20 23 02/09/2023 COMPL ETE BLOOD COUNT lymphocyte,a bsolute 2.9 10*3/ uL 0.4-5. 1 normal Not Available [facility] [address] [place] [address], [address], 02/09/2023 14:51:28 02/10/20 23 02/09/2023 COMPL ETE BLOOD COUNT monocyte,abs olute 0.7 10*3/ uL 0.0-1. 2 normal Not Available [facility] [address] [place] [address], [address], 02/09/2023 14:51:28 02/10/20 23 02/09/2023 COMPL ETE BLOOD COUNT eosinophil,a bsolute 0.2 10*3/ uL 0.0-0. 8 normal Not Available [facility] [address] [place] [address], [address], 02/09/2023 14:51:28 02/10/20 23 02/09/2023 COMPL ETE BLOOD COUNT basophil,abs olute 0.0 10*3/ uL 0.0-0. 3 normal Smear revie wed to confi rm cell morph ology . Not Available [facility] [address] [place] [address], [address], 02/09/2023 14:51:28 02/10/20 23 02/09/2023 COMPL ETE BLOOD COUNT % neutrophils 50.0 % 42.0-7 8.0 normal Not Available [facility] [address] [place] [address], [address], 02/09/2023 14:51:28 02/10/20 23 02/09/2023 COMPL ETE BLOOD COUNT % lymphocytes 35.0 % 11.0-4 7.0 normal Not Available [facility] [address] [place] [address], [address], 02/09/2023 14:51:28 02/10/20 23 02/09/2023 COMPL ETE BLOOD COUNT % monocytes 9.0 % 0.0-11 .0 normal Not Available [facility] [address] [place] [address], [address], 02/09/2023 14:51:28 02/10/20 23 02/09/2023 COMPL ETE BLOOD COUNT % eosinophils 2.0 % 0.0-7. 0 normal Not Available [facility] [address] [place] [address], [address], 02/09/2023 14:51:28 02/10/20 23 02/09/2023 COMPL ETE BLOOD COUNT % basophils 0.0 % 0.0-3. 0 normal Not Available [facility] [address] [place] [address], [address], 02/09/2023 14:51:28 02/10/20 23 02/09/2023 COMPL ETE BLOOD COUNT nucleated red cells 0.2 % 0.0-0. 9 normal Not Available [facility] [address] [place] [address], [address], 02/09/2023 14:51:28 02/10/20 23 02/09/2023 COMPL ETE BLOOD COUNT nucleated RBCs, absolute 0.01 10*3/ uL not estab. normal Not Available [facility] [address] [place] [address], [address], 02/09/2023 14:51:28 02/10/20 23 02/09/2023 MANUA L DIFFE RENTI AL % band neutrophils 0.0 % 0.0-7. 0 normal Not Available [facility] [address] [place] [address], [address], 02/09/2023 14:51:30 02/10/20 23 02/09/2023 MANUA L DIFFE RENTI AL % atypical lymphocytes 4 % 0-1 high Not Available [facility] [address] [place] [address], [address], 02/09/2023 14:51:30 02/10/20 23 02/09/2023 MANUA L DIFFE RENTI AL % metamyelocyt es 0 % 0-1 normal Not Available [facility] [address] [place] [address], [address], 02/09/2023 14:51:30 02/10/20 23 02/09/2023 MANUA L DIFFE RENTI AL % myelocytes 0 % 0-1 normal Not Available [facility] [address] [place] [address], [address], 02/09/2023 14:51:30 02/10/20 23 02/09/2023 MANUA L DIFFE RENTI AL % promyelocyte s 0 % 0 normal Not Available [facility] [address] [place] [address], [address], 02/09/2023 14:51:30 02/10/20 23 02/09/2023 MANUA L DIFFE RENTI AL % blast 0 % 0 normal Not Available [facility] [address] [place] [address], [address], 02/09/2023 14:51:30 02/10/20 23 02/09/2023 MANUA L DIFFE RENTI AL nucleated red cells 0 /100{ WBC} 0-1 normal Not Available [facility] [address] [place] [address], [address], 02/09/2023 14:51:30 02/10/20 23 02/09/2023 MANUA L DIFFE RENTI AL smudge cells 0 /100{ WBC} 0 normal Not Available [facility] [address] [place] [address], [address], 02/09/2023 14:51:30 02/10/20 23 02/09/2023 MANUA L DIFFE RENTI AL platelet morphology NORMAL normal Not Available [facility] [address] [place] [address], [address], 02/09/2023 14:51:30 02/10/20 23 02/09/2023 MANUA L DIFFE RENTI AL stomatocytes SLIGHT abnormal Not Available [facility] [address] [place] [address], [address], 02/09/2023 14:51:30 03/30/20 23 03/30/2023 COMPL ETE BLOOD COUNT white blood cells 12.4 10*3/ uL 3.8-10 .8 high Not Available [facility] [address] [place] [address], [address], 03/30/2023 10:12:44 03/30/20 23 03/30/2023 COMPL ETE BLOOD COUNT red blood cells 4.37 10*6/ uL 3.80-5 .20 normal Not Available [facility] [address] [place] [address], [address], 03/30/2023 10:12:44 03/30/20 23 03/30/2023 COMPL ETE BLOOD COUNT hemoglobin 12.6 g/dL 12.0-1 6.0 normal Not Available [facility] [address] [place] [address], [address], 03/30/2023 10:12:44 12/12/20 23 03/30/2023 COMPL ETE BLOOD COUNT hematocrit 38.4 % 35.0-4 7.0 normal Not Available [facility] [address] [place] [address], [address], 03/30/2023 10:12:44 03/30/20 23 03/30/2023 COMPL ETE BLOOD COUNT MCV 88 fL 80-100 normal Not Available [facility] [address] [place] [address], [address], 03/30/2023 10:12:44 03/30/20 23 03/30/2023 COMPL ETE BLOOD COUNT MCH 29 pg 26-35 normal Not Available [facility] [address] [place] [address], [address], 03/30/2023 10:12:44 03/30/20 23 03/30/2023 COMPL ETE BLOOD COUNT MCHC 33 g/dL 32-36 normal Not Available [facility] [address] [place] [address], [address], 03/30/2023 10:12:44 03/30/20 23 03/30/2023 COMPL ETE BLOOD COUNT RDW 15.2 % 11.0-1 5.0 high Not Available [facility] [address] [place] [address], [address], 03/30/2023 10:12:44 03/30/20 23 03/30/2023 COMPL ETE BLOOD COUNT MPV 7.2 fL 6.2-10 .5 normal Not Available [facility] [address] [place] [address], [address], 03/30/2023 10:12:44 03/30/20 23 03/30/2023 COMPL ETE BLOOD COUNT platelet count 166 10*3/ uL 150-40 0 normal Not Available [facility] [address] [place] [address], [address], 03/30/2023 10:12:44 03/30/20 23 03/30/2023 COMPL ETE BLOOD COUNT neutrophil,a bsolute 5.8 10*3/ uL 1.6-8. 4 normal Not Available [facility] [address] [place] [address], [address], 03/30/2023 10:12:44 03/30/20 23 03/30/2023 COMPL ETE BLOOD COUNT lymphocyte,a bsolute 5.7 10*3/ uL 0.4-5. 1 high Not Available [facility] [address] [place] [address], [address], 03/30/2023 10:12:44 03/30/20 23 03/30/2023 COMPL ETE BLOOD COUNT monocyte,abs olute 0.7 10*3/ uL 0.0-1. 2 normal Not Available [facility] [address] [place] [address], [address], 03/30/2023 10:12:44 03/30/20 23 03/30/2023 COMPL ETE BLOOD COUNT eosinophil,a bsolute 0.1 10*3/ uL 0.0-0. 8 normal Not Available [facility] [address] [place] [address], [address], 03/30/2023 10:12:44 03/30/20 23 03/30/2023 COMPL ETE BLOOD COUNT basophil,abs olute 0.0 10*3/ uL 0.0-0. 3 normal Not Available [facility] [address] [place] [address], [address], 03/30/2023 10:12:44 03/30/20 23 03/30/2023 COMPL ETE BLOOD COUNT % neutrophils 46.9 % 42.0-7 8.0 normal Not Available [facility] [address] [place] [address], [address], 03/30/2023 10:12:44 03/30/20 23 03/30/2023 COMPL ETE BLOOD COUNT % lymphocytes 45.9 % 11.0-4 7.0 normal Not Available [facility] [address] [place] [address], [address], 03/30/2023 10:12:44 03/30/20 23 03/30/2023 COMPL ETE BLOOD COUNT % monocytes 5.8 % 0.0-11 .0 normal Not Available [facility] [address] [place] [address], [address], 03/30/2023 10:12:44 03/30/20 23 03/30/2023 COMPL ETE BLOOD COUNT % eosinophils 1.1 % 0.0-7. 0 normal Not Available [facility] [address] [place] [address], [address], 03/30/2023 10:12:44 03/30/20 23 03/30/2023 COMPL ETE BLOOD COUNT % basophils 0.3 % 0.0-3. 0 normal Not Available [facility] [address] [place] [address], [address], 03/30/2023 10:12:44 03/30/20 23 03/30/2023 COMPL ETE BLOOD COUNT nucleated red cells 0.1 % 0.0-0. 9 normal Not Available [facility] [address] [place] [address], [address], 03/30/2023 10:12:44 03/30/20 23 03/30/2023 COMPL ETE BLOOD COUNT nucleated RBCs, absolute 0.01 10*3/ uL not estab. normal Not Available [facility] [address] [place] [address], [address], 03/30/2023 10:12:44 03/30/20 23 03/30/2023 COMP. METAB OLIC PANEL glucose 107 mg/dL 74-100 high Not Available [facility] [address] [place] [address], [address], 03/30/2023 10:45:23 03/30/20 23 03/30/2023 COMP. METAB OLIC PANEL blood urea nitrogen 18 mg/dL 6-20 normal Not Available [facility] [address] [place] [address], [address], 03/30/2023 10:45:23 03/30/20 23 03/30/2023 COMP. METAB OLIC PANEL creatinine 1.44 mg/dL 0.50-0 .95 high Not Available [facility] [address] [place] [address], [address], 03/30/2023 10:45:23 03/30/20 23 03/30/2023 COMP. METAB OLIC PANEL BUN/creatini ne ratio 13 (calc ) 10-20 normal Not Available [facility] [address] [place] [address], [address], 03/30/2023 10:45:23 03/30/20 23 03/30/2023 COMP. METAB OLIC PANEL sodium 139 mmol/ L 136-14 5 normal Not Available [facility] [address] [place] [address], [address], 03/30/2023 10:45:23 03/30/20 23 03/30/2023 COMP. METAB OLIC PANEL potassium 4.3 mmol/ L 3.4-5. 0 normal Not Available [facility] [address] [place] [address], [address], 03/30/2023 10:45:23 03/30/20 23 03/30/2023 COMP. METAB OLIC PANEL chloride 103 mmol/ L 98-107 normal Not Available [facility] [address] [place] [address], [address], 03/30/2023 10:45:23 03/30/20 23 03/30/2023 COMP. METAB OLIC PANEL carbon dioxide 26 mmol/ L 22-31 normal Not Available [facility] [address] [place] [address], [address], 03/30/2023 10:45:23 03/30/20 23 03/30/2023 COMP. METAB OLIC PANEL anion gap 10 (calc ) 7-25 normal Not Available [facility] [address] [place] [address], [address], 03/30/2023 10:45:23 03/30/20 23 03/30/2023 COMP. METAB OLIC PANEL calcium 9.2 mg/dL 8.6-10 .2 normal Not Available [facility] [address] [place] [address], [address], 03/30/2023 10:45:23 03/30/20 23 03/30/2023 COMP. METAB OLIC PANEL total protein 7.0 g/dL 6.4-8. 3 normal Not Available [facility] [address] [place] [address], [address], 03/30/2023 10:45:23 03/30/20 23 03/30/2023 COMP. METAB OLIC PANEL albumin 4.6 g/dL 3.5-5. 2 normal Not Available [facility] [address] [place] [address], [address], 03/30/2023 10:45:23 03/30/20 23 03/30/2023 COMP. METAB OLIC PANEL globulin 2.4 1.5-4. 5 normal Not Available [facility] [address] [place] [address], [address], 03/30/2023 10:45:23 03/30/20 23 03/30/2023 COMP. METAB OLIC PANEL albumin/glob ulin ratio 1.9 (calc ) 1.1-2. 5 normal Not Available [facility] [address] [place] [address], [address], 03/30/2023 10:45:23 03/30/20 23 03/30/2023 COMP. METAB OLIC PANEL bilirubin, total 0.7 mg/dL 0.1-1. 2 normal Not Available [facility] [address] [place] [address], [address], 03/30/2023 10:45:23 03/30/20 23 03/30/2023 COMP. METAB OLIC PANEL alkaline phosphatase 68 U/L 30-121 normal Not Available [facility] [address] [place] [address], [address], 03/30/2023 10:45:23 03/30/20 23 03/30/2023 COMP. METAB OLIC PANEL AST 17 U/L 0-32 normal Not Available [facility] [address] [place] [address], [address], 03/30/2023 10:45:23 03/30/20 23 03/30/2023 COMP. METAB OLIC PANEL ALT 12 U/L 0-33 normal Not Available [facility] [address] [place] [address], [address], 03/30/2023 10:45:23 03/30/20 23 03/30/2023 COMP. METAB OLIC PANEL GFR 37 >= 60 abnormal NOT E New calcu latio n for GFR (CKD- EPI 2020) is formu lated witho ut race adjus tment facto rs at the recom menda tion of the [facility] . This calcu latio n has not been valid ated in pregn ant women . For pedia tric patie nts refer to https ://heike [email or web address] rg/deep adorno s/YARIO QI/gf r_cal culat orPed Not Available [facility] [address] [place] [address], [address], 03/30/2023 10:45:23 08/09/19 24 08/09/2023 COMPL ETE BLOOD COUNT white blood cells 9.3 10*3/ uL 3.8-10 .8 normal Not Available [facility] [address] [place], [address], 08/09/2023 15:11:10 08/09/19 24 08/09/2023 COMPL ETE BLOOD COUNT red blood cells 4.31 10*6/ uL 3.80-5 .20 normal Not Available [facility] [address] [place] [address], [address], 08/09/2023 15:11:10 08/09/19 24 08/09/2023 COMPL ETE BLOOD COUNT hemoglobin 12.7 g/dL 12.0-1 6.0 normal Not Available [facility] [address] [place] [address], [address], 08/09/2023 15:11:10 08/09/19 24 08/09/2023 COMPL ETE BLOOD COUNT hematocrit 38.5 % 35.0-4 7.0 normal Not Available [facility] [address] [place] [address], [address], 08/09/2023 15:11:10 08/09/19 24 08/09/2023 COMPL ETE BLOOD COUNT MCV 89 fL 80-100 normal Not Available [facility] [address] [place] [address], [address], 08/09/2023 15:11:10 08/09/19 24 08/09/2023 COMPL ETE BLOOD COUNT MCH 30 pg 26-35 normal Not Available [facility] [address] [place] [address], [address], 08/09/2023 15:11:10 08/09/19 24 08/09/2023 COMPL ETE BLOOD COUNT MCHC 33 g/dL 32-36 normal Not Available [facility] [address] [place] [address], [address], 08/09/2023 15:11:10 08/09/19 24 08/09/2023 COMPL ETE BLOOD COUNT RDW 15.3 % 11.0-1 5.0 high Not Available [facility] [address] [place] [address], [address], 08/09/2023 15:11:10 08/09/19 24 08/09/2023 COMPL ETE BLOOD COUNT MPV 7.8 fL 6.2-10 .5 normal Not Available [facility] [address] [place] [address], [address], 08/09/2023 15:11:10 08/09/19 24 08/09/2023 COMPL ETE BLOOD COUNT platelet count 166 10*3/ uL 150-40 0 normal Not Available [facility] [address] [place] [address], [address], 08/09/2023 15:11:10 08/09/19 24 08/09/2023 COMPL ETE BLOOD COUNT neutrophil,a bsolute 2.7 10*3/ uL 1.6-8. 4 normal Not Available [facility] [address] [place] [address], [address], 08/09/2023 15:11:10 08/09/19 24 08/09/2023 COMPL ETE BLOOD COUNT lymphocyte,a bsolute 5.9 10*3/ uL 0.4-5. 1 high Not Available [facility] [address] [place] [address], [address], 08/09/2023 15:11:10 08/09/19 24 08/09/2023 COMPL ETE BLOOD COUNT monocyte,abs olute 0.7 10*3/ uL 0.0-1. 2 normal Not Available [facility] [address] [place] [address], [address], 08/09/2023 15:11:10 08/09/19 24 08/09/2023 COMPL ETE BLOOD COUNT eosinophil,a bsolute 0.1 10*3/ uL 0.0-0. 8 normal Not Available [facility] [address] [place] [address], [address], 08/09/2023 15:11:10 08/09/19 24 08/09/2023 COMPL ETE BLOOD COUNT basophil,abs olute 0.0 10*3/ uL 0.0-0. 3 normal Not Available [facility] [address] [place] [address], [address], 08/09/2023 15:11:10 08/09/19 24 08/09/2023 COMPL ETE BLOOD COUNT % neutrophils 29.0 % 42.0-7 8.0 low Not Available [facility] [address] [place] [address], [phone], 08/09/2023 15:11:10 08/09/19 24 08/09/2023 COMPL ETE BLOOD COUNT % lymphocytes 63.0 % 11.0-4 7.0 high Not Available [facility] [address] [place] [address], [phone], 08/09/2023 15:11:10 08/09/19 24 08/09/2023 COMPL ETE BLOOD COUNT % monocytes 7.0 % 0.0-11 .0 normal Not Available [facility] [address] [place] [address], [address], 08/09/2023 15:11:10 08/09/19 24 08/09/2023 COMPL ETE BLOOD COUNT % eosinophils 1.0 % 0.0-7. 0 normal Not Available [facility] [address] [place] [address], [address], 08/09/2023 15:11:10 08/09/19 24 08/09/2023 COMPL ETE BLOOD COUNT % basophils 0.0 % 0.0-3. 0 normal Not Available [facility] [address] [place] [address], [address], 08/09/2023 15:11:10 08/09/19 24 08/09/2023 COMPL ETE BLOOD COUNT nucleated red cells 0.2 % 0.0-0. 9 normal Not Available [facility] [address] [place] [address], [address], 08/09/2023 15:11:10 08/09/19 24 08/09/2023 COMPL ETE BLOOD COUNT nucleated RBCs, absolute 0.02 10*3/ uL not estab. normal Not Available [facility] [address] [place] [address], [address], 08/09/2023 15:11:10 08/09/19 24 08/09/2023 MANUA L DIFFE RENTI AL % band neutrophils 0.0 % 0.0-7. 0 normal Not Available [facility] [address] [place] [address], [address], 08/09/2023 15:11:12 08/09/19 24 08/09/2023 MANUA L DIFFE RENTI AL % atypical lymphocytes 0 % 0-1 normal Not Available [facility] [address] [place] [address], [address], 08/09/2023 15:11:12 08/09/19 24 08/09/2023 MANUA L DIFFE RENTI AL % metamyelocyt es 0 % 0-1 normal Not Available [facility] [address] [place] [address], [address], 08/09/2023 15:11:12 08/09/19 24 08/09/2023 MANUA L DIFFE RENTI AL % myelocytes 0 % 0-1 normal Not Available [facility] [address] [place] [address], [address], 08/09/2023 15:11:12 08/09/19 24 08/09/2023 MANUA L DIFFE RENTI AL % promyelocyte s 0 % 0 normal Not Available [facility] [address] [place] [address], [address], 08/09/2023 15:11:12 08/09/19 24 08/09/2023 MANUA L DIFFE RENTI AL % blast 0 % 0 normal Not Available [facility] [address] [place] [address], [address], 08/09/2023 15:11:12 08/09/19 24 08/09/2023 MANUA L DIFFE RENTI AL nucleated red cells 0 /100{ WBC} 0-1 normal Not Available [facility] [address] [place] [address], [address], 08/09/2023 15:11:12 08/09/19 24 08/09/2023 MANUA L DIFFE RENTI AL smudge cells 0 /100{ WBC} 0 normal Not Available [facility] [address] [place] [address], [address], 08/09/2023 15:11:12 08/09/19 24 08/09/2023 MANUA L DIFFE RENTI AL platelet morphology NORMAL normal Not Available [facility] [address] [place] [address], [address], 08/09/2023 15:11:12 08/09/19 24 08/09/2023 MANUA L DIFFE RENTI AL ovalocytes SLIGHT abnormal Not Available [facility] [address] [place] [address], [address], 08/09/2023 15:11:12 08/09/19 24 08/09/2023 COMP. METAB OLIC PANEL glucose 123 mg/dL 74-100 high Not Available [facility] [address] [place] [address], [address], 08/09/2023 15:28:21 08/09/19 24 08/09/2023 COMP. METAB OLIC PANEL blood urea nitrogen 16 mg/dL 6-20 normal Not Available [facility] [address] [place] [address], [address], 08/09/2023 15:28:21 08/09/19 24 08/09/2023 COMP. METAB OLIC PANEL creatinine 1.40 mg/dL 0.50-0 .95 high Not Available [facility] [address] [place] [address], [address], 08/09/2023 15:28:21 08/09/19 24 08/09/2023 COMP. METAB OLIC PANEL BUN/creatini ne ratio 11 (calc ) 10-20 normal Not Available [facility] [address] [place] [address], [address], 08/09/2023 15:28:21 08/09/19 24 08/09/2023 COMP. METAB OLIC PANEL sodium 139 mmol/ L 136-14 5 normal Not Available [facility] [address] [place] [address], [address], 08/09/2023 15:28:21 08/09/19 24 08/09/2023 COMP. METAB OLIC PANEL potassium 4.4 mmol/ L 3.4-5. 0 normal Not Available [facility] [address] [place] [address], [address], 08/09/2023 15:28:21 08/09/19 24 08/09/2023 COMP. METAB OLIC PANEL chloride 102 mmol/ L 98-107 normal Not Available [facility] [address] [place] [address], [address], 08/09/2023 15:28:21 08/09/19 24 08/09/2023 COMP. METAB OLIC PANEL carbon dioxide 24 mmol/ L 22-31 normal Not Available [facility] [address] [place] [address], [address], 08/09/2023 15:28:21 08/09/19 24 08/09/2023 COMP. METAB OLIC PANEL anion gap 13 (calc ) 7-25 normal Not Available [facility] [address] [place] [address], [address], 08/09/2023 15:28:21 08/09/19 24 08/09/2023 COMP. METAB OLIC PANEL calcium 9.4 mg/dL 8.6-10 .2 normal Not Available [facility] [address] [place] [address], [address], 08/09/2023 15:28:21 08/09/19 24 08/09/2023 COMP. METAB OLIC PANEL total protein 7.5 g/dL 6.4-8. 3 normal Not Available [facility] [address] [place] [address], [address], 08/09/2023 15:28:21 08/09/19 24 08/09/2023 COMP. METAB OLIC PANEL albumin 4.4 g/dL 3.5-5. 2 normal Not Available [facility] [address] [place] [address], [address], 08/09/2023 15:28:21 08/09/19 24 08/09/2023 COMP. METAB OLIC PANEL globulin 3.1 1.5-4. 5 normal Not Available [facility] [address] [place] [address], [address], 08/09/2023 15:28:21 08/09/19 24 08/09/2023 COMP. METAB OLIC PANEL albumin/glob ulin ratio 1.4 (calc ) 1.1-2. 5 normal Not Available [facility] [address] [place] [address], [address], 08/09/2023 15:28:21 08/09/19 24 08/09/2023 COMP. METAB OLIC PANEL bilirubin, total 0.9 mg/dL 0.1-1. 2 normal Not Available [facility] [address] [place] [address], [address], 08/09/2023 15:28:21 08/09/19 24 08/09/2023 COMP. METAB OLIC PANEL alkaline phosphatase 74 U/L 30-121 normal Not Available [facility] [address] [place] [address], [address], 08/09/2023 15:28:21 08/09/19 24 08/09/2023 COMP. METAB OLIC PANEL AST 15 U/L 0-32 normal Not Available [facility] [address] [place] [address], [address], 08/09/2023 15:28:21 08/09/19 24 08/09/2023 COMP. METAB OLIC PANEL ALT 10 U/L 0-33 normal Not Available [facility] [address] [place], [address], 08/09/2023 15:28:21 08/09/19 24 08/09/2023 COMP. METAB OLIC PANEL GFR 38 >= 60 abnormal NOT E New calcu latio n for GFR (CKD- EPI 2020) is formu lated witho ut race adjus tment facto rs at the recom menda tion of the [facility] Camp[facility] y [facility] atcatherine and Michelle Goetze ty of Nephr ology . This calcu latio n has not been valid ated in pregn ant women . For pedia tric patie nts refer to [email or web address] :[email or web address] [email or web address] ional s/KDO QI/gf r_cal culat orPed Not Available [facility] [address] [place], [address], 08/09/2023 15:28:21 08/09/19 24 08/09/2023 LDH LDH 175 U/L 135-23 3 normal Not Available [facility] [address] [place] [address], [address], 08/09/2023 15:29:25 02/18/20 22 02/05/2022 CT, abdom en + pelvi s, w/ contr ast No observ ation record ed. [email or web address] [facility] (Med Record) [address], [place], [address], 05/26/2022 14:25:37 03/30/20 23 03/30/2023 PET-C T, skull base to mid-t high scan [facility] [address] [place] [address], [place] [address] Patien t Name: ABIMAEL IVERSON Patien t : [birth year] Patien t 7 Orderi ng Provid er: LESA COSTA EXAM DATE: 2022 EXAM: PET-CT TUMOR SKULL BASE-M ID THIGH SUB ST CLINIC AL INFORM ATION: Head and Neck Cancer - Restag ing. Dense base cancer . PROCED URE: Baseli ne blood glucos e level was 134 mg/dL. 11.58 mCi F-18 FDG ([facility] [address]- 0511-3 0) was inject ed IV. After an uptake time of 51 minute s, skull base to midthi gh PET imagin g was perfor med. This was follow ed by a low dose attenu ation correc tion/a natomi c locali zation CT from lower craniu m throug h the midthi gh levels withou t IV or oral contra st. The patirachel t did not requir e sedati on [...] David Merida MD on 2022 1:35 PM [email or web address] [facility] [address], [address], 01/27/2024 11:07:00 Result Notes Documentation Provider Name and Address Organization Details Recorded Time Pet-ct, Skull Base To Mid-thigh Scan : [address] [address] Patient Name: SHEA IVERSON Patient : 1945 Patient Ordering Provider: LESA COSTA EXAM DATE: 03/30/2023 EXAM: PET-CT TUMOR SKULL BASE-MID THIGH SUB ST CLINICAL INFORMATION: Head and Neck Cancer - Restaging. Dense base cancer. PROCEDURE: Baseline blood glucose level was 134 mg/dL. 11.58 mCi F-18 FDG ([facility] [id number]) was injected IV. After an uptake time [...] or pelvis. 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 Procedures Surgical History Date Name Laterality Status Provider Name and Address Organization Details Recorded Time 2 Chemo Nurse Assessment completed Alexa Renae [facility] 06/02/2021 16:26:14 Imaging Results None recorded. Procedure Notes None recorded. Medical Equipment None Reported. Allergies Allergen ID Allergen Name Allergen Category Reaction Reaction Severity Criticality Documentation Date Start Date Code Code System Note Provider Name and Address Organization Details Recorded Time 399551 Product containin g 3-hydroxy -3-methyl glutaryl- coenzyme A reductase inhibitor (product) medicatio n Not available Not available Not available 12/26/2018 48263 009 SNOMED Araceli davalos [facility], [facility] 9 11:55:37 Medications Name Sig Start [...] in Arterial blood by Pulse oximetry Systolic And Diastolic Provider Name and Address Organization Details Last Updated DateTime 3 167.64 cm 39.3 kg/m2 381411 g 98.3 [degF] 90 /min 97 % 97 % 145/92 mm[Hg] Elizabeth Vázquezchristiano [facility] 3 14:13:43 Date Recorded Body height Body mass index (BMI) Body weight Body temperature Heart rate Oxygen saturation Oxygen saturation in Arterial blood by Pulse oximetry Systolic And Diastolic Provider Name and Address Organization Details Last Updated DateTime 2 167.64 cm 38.6 kg/m2 951857. 58 g 97.3 [degF] 85 /min 95 % 95 % 117/78 mm[Hg] Dinah Colbert [facility] 2 13:27:07 Date Recorded Body height Body mass index (BMI) Body weight Body temperature Pain severity - 0-10 verbal numeric rating [Score] - Reported Heart rate Oxygen saturation Oxygen saturation in Arterial blood by Pulse oximetry Systolic And Diastolic Provider Name and Address Organization Details Last Updated DateTime 3 167.64 cm 37.8 kg/m2 026564. 66 g 97.7 [degF] 0 77 /min 91 % 91 % 147/90 mm[Hg] Lucy kapoor [facility] 3 13:19:06 Date Recorded Body height Body mass index (BMI) Body weight Body temperature Heart rate Oxygen saturation Oxygen saturation in Arterial blood by Pulse oximetry Systolic And Diastolic Provider Name and Address Organization Details Last Updated DateTime 2 167.64 cm 42.3 kg/m2 006548. 55 g 99.1 [degF] 90 /min 96 % 96 % 122/87 mm[Hg] Latoya Gayle [facility] 2 15:25:41 Date Recorded Body height Body mass index (BMI) Body weight Body temperature Heart rate Oxygen saturation Oxygen saturation in Arterial blood by Pulse oximetry Pain severity - 0-10 verbal numeric rating [Score] - Reported Systolic And Diastolic Provider Name and Address Organization Details Last Updated DateTime 2 167.64 cm 40.5 kg/m2 311422. 03 g 98 [degF] 81 /min 96 % 96 % 0 129/64 mm[Hg] Lucy kapoor [facility] 2 14:30:46 Social History Question Answer Notes LastModified by [employer] Details LastModified Time Tobacco Smoking Status Former Smoker Skye Ty kylah, [facility] 05/09/2019 13:09:00 How Much Tobacco Do You [...] virus, quadrivalent, preservative 9 completed Skye Ty [facility] 05/09/2019 13:08:41 Influenza, high-dose, quadrivalent, PF 0 completed Skye Ty [facility] 02/19/2020 12:43:10 COVID-19, mRNA, LNP-S, PF, 100 mcg/0.5mL dose or 50 mcg/0.25mL dose 1 completed Skye Ty [facility] 07/01/2020 13:37:46 COVID-19, mRNA, LNP-S, PF, 100 mcg/0.5mL dose or 50 mcg/0.25mL dose 1 completed Skye Ty [facility] 12/02/2020 12:53:26 COVID-19, mRNA, LNP-S, PF, 100 mcg/0.5mL dose or 50 mcg/0.25mL dose 1 completed Dinaheliezer Carterin [facility] 08/04/2021 13:23:03 Influenza, high-dose, quadrivalent, PF 1 completed Dinaheliezer Carterin [facility] 08/04/2021 13:23:18 pneumococcal polysaccharide PPV23 8 completed Dinaheliezer Colbert [facility] 08/04/2021 13:23:32 Pneumococcal conjugate PCV 13 2 completed Dinah Colbert [facility] 08/04/2021 13:24:01 Influenza, split virus, quadrivalent, preservative 2 completed Lucy EfremStanton [facility] 02/17/2022 14:22:09 Past Encounters Encounter ID Performer Location Encounter Start Date Encounter Closed Date Diagnosis/Indication Diagnosis SNOMED-CT Code Diagnosis ICD10 Code Diagnosis IMO Codes Diagnosis Note [id number] LESA COSTA MD [facility] [address],[place] [address] 6 05/11/2016 11:58:36 05/11/2016 14:15:47 [id number] LESA COSTA MD HEM/[facility] [address] 6 08/18/2016 12:10:51 08/18/2016 14:21:27 [id number] LESA COSTA MD HEM/[facility] [address],[place] [address] 6 11/17/2016 12:10:53 11/17/2016 13:43:48 [id number] LESA COSTA MD H[facility] [address] [address] [place], [place] [id number] 6 01/11/2017 13:21:52 01/11/2017 14:58:19 [id number] LESA COSTA MD H[facility] [address] [address] [place], [place] [id number] 6 05/18/2017 11:39:11 05/18/2017 12:55:13 [id number] LESA COSTA MD [facility] [address] [place] [address] 08/17/2017 12:32:59 08/17/2017 14:27:17 [id number] LESA COSTA MD H[facility] [address] [place], [place] [id number] 6 11/09/2017 14:45:25 11/09/2017 15:50:59 [id number] LESA COSTA MD [facility] [address] [place] [address] 12/21/2017 12:04:01 12/21/2017 13:34:16 [id number] LESA COSTA MD HEM/[facility]C [facility] [address] [place] [address] 01/17/2018 12:07:55 01/17/2018 14:11:32 [id number] LESA COSTA MD H[facility] [address] [place] [address] 02/15/2018 11:44:26 02/15/2018 13:23:48 [id number] LESA COSTA MD [facility] [address] [place] [address] 03/15/2018 14:36:34 03/15/2018 15:45:06 [id number] GIOVANNI SHAH PA-C CARDIOLOG Y [address] [place] [address] 03/18/2018 10:49:48 03/18/2018 15:10:16 [id number] LESA COSTA MD H[facility] [address] [place] [address] 04/18/2018 12:17:31 04/18/2018 14:34:47 [id number] GIOVANNI SHAH PA-C CARDIOLOG Y [address] [place] [address] 04/22/2018 11:21:47 04/22/2018 12:45:40 [id number] GIOVANNI SHAH PA-C CARDIOLOG Y [address] [place] [address] 05/31/2018 10:11:34 05/31/2018 11:28:40 [id number] LESA COSTA MD [facility] [address] [place] [address] 06/20/2018 09:48:09 06/20/2018 11:39:13 [id number] ADDISON GARSIA JR, MD GENERAL SURGERY [address] [place] [address] 08/02/2018 11:23:01 08/10/2018 08:30:14 [id number] VAN CORNELL MD [facility] [address] [place] [address] 08/31/2018 08:24:51 09/02/2018 14:35:45 [id number] GIOVANNI SHAH PA-C CARDIOLOG Y [address] [place] [address] 08/31/2018 08:25:59 08/31/2018 10:39:30 [id number] LESA COSTA MD HEM/[facility]C [facility] [address] [place] [address] 09/19/2018 10:50:22 09/19/2018 12:29:35 [id number] GIOVANNI SHAH PA-C CARDIOLOG Y [address] ,[address] [place] [address] 10/14/2018 14:37:27 10/14/2018 16:02:28 [id number] GIOVANNI SHAH PA-C CARDIOLOG Y [address] ,[address] [place] [address] 12/13/2018 13:51:29 12/13/2018 14:51:29 [id number] LESA COSTA MD HEM/ONC [facility] CLOSED [address] [place] [address] 12/26/2018 11:52:40 12/26/2018 13:36:09 Overweight 962337155 E66.3 Encourage exercise and weight loss. Malignant lymphoma - small lymphocytic 831212976 C83.00 Given right supraclavi cular LU, we will obtain CT neck, chest. [id number] LESA COSTA MD HEM/ONC SB CLOSED [address] [place] [address] 05/09/2019 12:55:16 05/09/2019 14:08:42 Overweight 594918358 E66.3 Encourage exercise and weight loss. Malignant lymphoma - small lymphocytic 570333133 C83.00 Pt is doing well from this as she has no symptomati c LU or cytopenias . We will reimage in 3 months. I am unsure of the etiology of her symptoms are related to this but to her depression . 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 Pt's labs, exam and scan is stable. She was advised regarding COVID -19 precaution s. 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 93289297 C85.99 As above. Overweight 429026305 E66 .3 Encourage exercise and weight loss. Malignant lymphoma - small lymphocytic 935770366 C83.00 Pt is doing well from this as she has no symptomati c LU or cytopenias . We will reimage in 3 months pending her PE. [id number] LESA COSTA MD HEM/ONC SB CLOSED [address] [place], [place] [address] 11/28/2019 14:36:02 11/28/2019 15:10:55 Malignant lymphoma of intra-abdominal lymph nodes 85647742 C85.93 CLL/SLL. Pt's labs, exam and scan is stable. She was advised regarding COVID -19 precaution s. She will continue on Imbruvica as prescribed . 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 24898956 C85.99 As above. [id number] LESA COSTA MD HEM/ONC SB CLOSED [address] [place], [place] [address] 02/19/2020 12:36:14 02/19/2020 13:05:30 Malignant lymphoma of intra-abdominal lymph nodes 60427538 C85.93 CLL/SLL. Pt's labs, exam and scan is stable 08/25/19. She was advised regarding COVID -19 precaution s. She will continue on Imbruvica as prescribed . Pt is doing well. Pt has received her flu shot. 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 79355789 C85.99 As above. [id number] LESA COSTA MD HEM/ONC SB CLOSED [address] [place] [address] 07/01/2020 13:29:08 07/01/2020 14:54:44 Malignant lymphoma of intra-abdominal lymph nodes 50514591 C85.93 CLL/SLL. Pt's labs are stable. She was advised regarding COVID -19 precaution s. She will continue on Imbruvica as prescribed . Pt is doing well. Pt has received her flu shot and received her second COVID vaccine 06/28/20. 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 91230840 C85.99 As above. Stasis lidia matitis of lower limb due to chronic peripheral venous hypertension 238017159 I87.399 FU with cardiology and PT. [id number] LESA COSTA MD HEM/ONC SB CLOSED [address] [place] [address] 12/02/2020 12:48:15 12/02/2020 13:16:37 Malignant lymphoma of intra-abdominal lymph nodes 01538097 C85.93 CLL/SLL. Pt's labs are pending. She was advised regarding COVID -19 precaution s. She will continue on Imbruvica as prescribed . Pt is doing well. Pt has received her flu shot and received her second COVID vaccine 06/28/20. I have instructed pt to take booster COVID vaccine. 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 62858498 C85.99 As above. Stasis lidia matitis of lower limb due to chronic peripheral venous hypertension 597659015 I87.399 FU with cardiology and PT. [id number] LESA COSTA MD HEM/ONC SB CLOSED [address] [place] [address] 03/31/2021 12:14:48 03/31/2021 13:02:49 Malignant lymphoma of intra-abdominal lymph nodes 20384315 C85.93 CLL/SLL. Pt's labs are pending. She was advised regarding COVID -19 precaution s. She will hold Imbruvica as prescribed given her swelling and to see if that helps. Pt is doing well. Pt has received her flu shot and received her second COVID vaccine 06/28/20. I have instructed pt to take booster COVID vaccine. 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 32136049 C85.99 As above. Stasis lidia matitis of lower limb due to chronic peripheral venous hypertension 706568841 I87.399 FU with cardiology and PT. [id number] LESA COSTA MD HEM/ONC SB CLOSED [address] [place] [address] 06/02/2021 12:15:50 06/02/2021 14:29:15 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 57253415 C85.99 As above. Malignant lymphoma of intra-abdominal lymph nodes 13087690 C85.93 CLL/SLL. Pt's labs are reviewed. She [...] limb due to chronic peripheral venous hypertension 146141806 I87.399 FU with cardiology and PT. Syncope [id number] R55 I have asked pt to go to ER and she pleasantly declines. I wonder if this is secondary to hypoxemia with ambulation as her oxygen sats dropped in to the 80s. I also wish her to have her brain imaged. We are encouragin g her as well. [id number] LESA COSTA MD HEM/ONC SB CLOSED [address] [place] [address] 06/02/2021 15:53:28 06/02/2021 16:27:08 [id number] LESA COSTA MD HEM/ONC SB CLOSED [address] [place] [address] 08/04/2021 12:58:04 08/04/2021 13:55:28 Malignant lymphoma of intra-abdominal lymph nodes 44367850 C85.93 CLL/SLL. Pt's labs are reviewed. She [...] lymphoma of extranodal AND/OR solid organ site 96692082 C85.99 As above. [id number] LESA COSTA MD HEM/ONC SB CLOSED [address] [facility] [address] [place], [place] [address] 11/18/2021 15:10:29 11/18/2021 16:06:46 Malignant lymphoma of intra-abdominal lymph nodes 67705853 C85.93 CLL/SLL. Pt's labs are reviewed. She was advised regarding COVID -19 precaution s. She will continue to hold Imbruvica as prescribed given her swelling is improved and to see if that helps as her WBC is normal. Pt is doing well. 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 34649784 C85.99 As above. Atrial fibrillation 4943 6004 I48.91 [id number] LESA COSTA MD HEM/ONC SB CLOSED [address] [place] [address] 02/17/2022 13:13:11 02/17/2022 15:56:55 Malignant lymphoma of intra-abdominal lymph nodes 29729977 C85.93 CLL/SLL. Pt's labs are reviewed. She was advised regarding COVID -19 precaution s. She will continue to hold Imbruvica as prescribed given her swelling is improved and her WBC is normal. Pt is doing well. 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 56752329 C85.99 As above. [id number] LESA COSTA MD HEM/ONC SB CLOSED [address] [facility] [address] [place] [address] 05/26/2022 13:03:54 05/26/2022 14:36:10 Malignant lymphoma of intra-abdominal lymph nodes [id number] C85.93 CLL/SLL. Pt's labs are reviewed. She was advised regarding COVID -19 precaution s. She will continue to hold Imbruvica as prescribed given her swelling is improved and her WBC is normal. Pt is doing well. 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 [id number] C85.99 As above. History of malignant neoplasm of skin [id number] Z85.828 Obtain pathology. [id number] LESA COSTA MD HEM/ONC SB CLOSED [address] FLO[address] [place] [phone] 1 09/01/2022 12:09:23 09/01/2022 14:15:37 Malignant lymphoma of intra-abdominal lymph nodes [id number] C85.93 CLL/SLL. Pt's labs are reviewed. She will off all therapies. WBC is normal. Pt is doing well. 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 [id number] C85.99 As above. History of malignant neoplasm of skin [id number] Z85.828 FU dermatolog y. [id number] MACK TORREZ MD ENT SB [address] [place] [address] 01/15/2023 13:08:12 01/15/2023 15:31:51 [id number] MACK TORREZ MD SURGERY SCHEDULE [address] [place] [address] 1 02/22/2023 10:51:07 02/22/2023 10:51:56 [id number] MACK TORREZ MD ENT SB [address] [place] [address] 1 05/11/2023 12:42:55 05/11/2023 15:23:03 Health Concerns Section Related Observation LastModified by Organization Detai ls LastModified Time None Recorded Concern Status LastModified by Organization Details LastModified Time None Recorded Advance Directives Directive None Recorded Payers Insurance Date Sequence Insurance Name Policy Number Policy Leon Covered Member ID Leon Member ID Guarantor Name 06/05/2024 PAYMENT PLAN Shea Rice 01/11/2025 1 [place] Shea Iverson [id number] Shea Iverson 05/04/2023 2 [facility] (MEDICAID REPLACEMENT - HMO) [place] Shea Iverson [id number] Shea Iverson Notes Date Note Type Note Provider Name and Address Organization Details Recorded Time 08/04/2021 text/html [facility] HPIReported b y PatientVisit DetailsFor advanced directives / biobank authorizations, patient reportsadvanced directives? no. For discharge, patient reportsdischarge disposition stableanddischarge mode ambulatory.Distress ScreeningFor emotional problems, patient reportsdepression,nervo usness, andloss of interest. For physical problems, patient reportsconstipation,basil ght gain,eating/ingestion problem (indigestion),changes in urination,fatigue,feeli ng swollen, andsleep issues. For distress screening, patient reportshas the distress screening been completed in the last 45 days? noanddistress level 7. For practical problems, patient reportsno practical problems. For family problems, patient reportsno family problems. For spiritual/faith, patient reportsspiritual/religi ous problems? no.NutritionFor nutrition screening, patient reportsnutrition screening noandnutrition counseling last 6 months? no. Mrs. Iverson is a pleasant 75-year-old female [...] her last visit. LESA COSTA MD [address] [place], [address], [facility] 08/04/2021 13:49:19 11/18/2021 text/html HPIReported b y PatientVisit DetailsFor advanced directives / biobank authorizations, patient reportsadvanced directives? no. For discharge, patient reportsdischarge disposition stableanddischarge mode ambulatory.Distress ScreeningFor emotional problems, patient reportsdepression,nervo usness, andloss of interest. For physical problems, patient reportsweight gain,changes in urination,fatigue,feeli ng swollen, andsleep issues. For distress screening, patient reportshas the distress screening been completed in the last 45 days? noanddistress level 7. For practical problems, patient reportsno practical problems. For family problems, patient reportsno family problems. For spiritual/faith, patient reportsspiritual/religi ous problems? no.NutritionFor nutrition screening, patient reportsnutrition screening noandnutrition counseling last 6 months? no.ROS as noted in the HPI Mrs. Iverson is a pleasant 76-year-old female [...] months ago. LESA COSTA MD [address] [place], [address], [facility] 11/18/2021 15:59:20 02/17/2022 text/html HPIReported b y PatientVisit DetailsFor advanced directives / biobank authorizations, patient reportsadvanced directives? no. For discharge, patient reportsdischarge disposition stableanddischarge mode ambulatory.Distress ScreeningFor practical problems, patient reportstreatment decisions stress. For emotional problems, patient reportsdepression,nervo usness,worry (anxiety), andloss of interest. For physical problems, patient reportsfatigue,feeling swollen (legs has lymphedema), andsleep issues(loss or change of physical abilities.). For distress screening, patient reportshas the distress screening been completed in the last 45 days? noanddistress level 3. For family problems, patient reportsno family problems. For spiritual/faith, patient reportsspiritual/religi ous problems? no.NutritionFor nutrition screening, patient reportsnutrition screening noandnutrition counseling last 6 months? no.ROS as noted in the HPI Mrs. Iverson is a pleasant 76-year-old female [...] she had a syncope. LESA COSTA MD [facility] [place], [address], [place] [facility] 02/17/2022 14:53:10 05/26/2022 text/html HPIReported b y PatientVisit DetailsFor advanced directives / biobank authorizations, patient reportsadvanced directives? no. For discharge, patient reportsdischarge disposition stableanddischarge mode ambulatory.Distress ScreeningFor practical problems, patient reportstreatment decisions stress. For physical problems, patient reportsfeeling swollen (legs has lymphedema),memory/conc entration problems, andsleep issues(loss or change of physical abilities.). For distress screening, patient reportshas the distress screening been completed in the last 45 days? noanddistress level 6. For family problems, patient reportsno family problems. For spiritual/faith, patient reportsspiritual/religi ous problems? no.NutritionFor nutrition screening, patient reportsnutrition screening noandnutrition counseling last 6 months? no.ROS as noted in the HPI Mrs. Iverson is a pleasant 76-year-old female [...] squamous cell carcinoma yesterday. LESA COSTA MD [address] [place] [address], [address], [facility] 05/26/2022 14:28:01 09/01/2022 text/html HPIReported b y PatientVisit DetailsFor advanced directives / biobank authorizations, patient reportsadvanced directives? no. For discharge, patient reportsdischarge disposition stableanddischarge mode ambulatory.Distress ScreeningFor practical problems, patient reportstreatment decisions stress. For physical problems, patient reportsfatigue,feeling swollen (legs has lymphedema),memory/conc entration problems, andsleep issues(loss or change of physical abilities.). For distress screening, patient reportshas the distress screening been completed in the last 45 days? noanddistress level 2. For family problems, patient reportsno family problems. For spiritual/faith, patient reportsspiritual/religi ous problems? no.NutritionFor nutrition screening, patient reportsnutrition screening noandnutrition counseling last 6 months? no.ROS as noted in the HPI Mrs. Iverson is a pleasant 77-year-old female [...] with LE edema. LESA COSTA MD [address] [place], [address], [facility] 09/01/2022 13:33:31 OBGyn Episode No OBEpisode recorded.
--- OUTSIDE RECORDS SUMMARY | 2025-01-30 08:26 | XMS_ITS | Encounter Summary ---
Author Organization [employer] ([place], [place], [place], [place]) Address [address] [place] [address] Care Team Providers Care Medical Review Coordinator Name Role Phone Oren Pressley MD Primary Care Provider [phone] Encounter Details Date Type Department Care Team (Late st Contact Info) Description 06/22/2019 Transcribed Document [facility] Family Medicine [facility] [place] [address] ProviderLaurel MD [address] [place] [address] [id number] Social History Tobacco Use Types Packs/Day Years Used Date Smoking Tobacco: Never Assessed Comments Unknown Sex and Gender Information Value Date Recorded Sex Assigned at Not on file Legal Sex Female 4:44 PM CDT Gender Identity Not on file Sexual Orientation Not on file documented as of this encounter Miscellaneous Notes * Cerner Conversion Note - Laurel Mayer MD - 06/22/2019 12:28 PM PHYSICAL SCIENCE AIDE Patient Education Materials Follows: Electrical Cardioversion, Care [...] to help you relax (sedative). ??? Take ewju-nxn-fawlmno and prescription medicines only as told by [...] 01/24/2014 Document Revised: 11/06/2016 Document Reviewed: 10/09/2016 [employer] Patient Education ? 2019 [employer]. Moderate Conscious Sedation, Adult, Care After These [...] you are awake and alert. ??? Take rgrn-fbx-mrftcxd and prescription medicines only as told by [...] 01/24/2014 Document Revised: 09/07/2016 Document Reviewed: 07/25/2016 [employer] Patient Education ? 2019 [employer]. Electronically signed by Robb [facility] Conversion System Dispatcher Cerner at 08/07/2022 2:11 PM CDT documented in this encounter Plan of Treatment Not on file documented as of this encounter Visit Diagnoses Not on filedocumented in this encounter Care Teams Medical Review Coordinator Relationship Specialty Start Date End Date Oren Pressley MD [address] [place] [address] PCP - General Adolescent Medicine 05/17/23 documented as of this encounter
--- OUTSIDE RECORDS SUMMARY | 2025-01-30 08:26 | XMS_ITS | Encounter Summary ---
Author Organization Healthcare Address [address] [place] [address] Care Team Providers Care Senior Mechanical Project Engineer Name Role Phone Pcp, No Primary Care Provider Oren Hull MD Primary Care Provider [phone] Sima Trejo MD Unavailable [phone] Encounter Details Date Type Department Care Team (Late st Contact Info) Description 06/02/2021 Orders Only [facility] [address] [place] [phone] Sima Trejo MD [address] [place], [place] [address] [address] [phone] Social History Tobacco Use Types Packs/Day Years [...] 02/06/2025 Orders Only [facility] [address] [place] [phone] Sima Trejo MD [facility] [address] 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) 02/06/2025 10:30 AM EDT Office Visit [facility] [address] [place] [phone] 02/06/2025 11:30 AM EDT Office Visit [facility] [address] [place] [address] Sima Trejo MD [address] [phone] 02/06/2025 12:00 PM EDT Infusion [facility] [address] [place] [address] documented as of this encounter Procedures Procedure Name Priority Date/Time Associated Diagnosis Comments COMPREHENSIVE METABOLIC PANEL, PLASMA Routine 06/02/2021 12:06 PM EST documented in this encounter Results * (ABNORMAL) Comprehensive Metabolic Panel, Plasma (06/02/2021 12:06 PM EST) External Glucose 119(H) 74 - 100 mg/dL [facility] BUN 27(H) 6 - 20 mg/dL [facility] External Creatinine Blood 1.62(H) 0.50 - 0.95 mg/dL [facility] External BUN/Creat Ratio 17 10 - 20 (calc) [facility] External Sodium 142 136 - 145 mmol/L [facility] External Potassium 4.3 3.4 - 5.0 mmol/L [facility] External Chloride 103 98 - 107 mmol/L [facility] External Carbon Dioxide 24 22 - 31 mmol/L [facility] External Anion Gap (AG) 15 7 - 25 (calc) [facility] External Calcium 9.3 8.6 - 10.2 mg/dL [facility] External Total Protein 6.4 6.4 - 8.3 g/dL [facility] External Albumin 4.4 3.5 - 5.2 g/dL [facility] External Globulin 2.0 1.5 - 4.5 g/dL (calc) [facility] External Albumin/Globulin Ratio 2.2 1.1 - 2.5 (calc) [facility] External Bilirubin Total 0.3 0.1 - 1.2 mg/dL [facility] External Alkaline Phosphatase 82 30 - 121 U/L [facility] External AST (SGOT) 17 0 - 32 U/L [facility] External ALT (SGPT) 17 0 - 33 U/L [facility] External EGFR (If AFR/AM) 35(A) >=60 [facility] External Estimated GFR 30(A) >=60 [facility] Comment: NOTE Chronic kidney disease [...] MD LAB BLOOD ORDERABLES Final Re sult [facility] [address] [place] [address], documented in this encounter Visit Diagnoses Not on filedocumented in this encounter Care Teams Senior Mechanical Project Engineer Relationship Specialty Start Date End Date Pcp, No [address] [place] [address] PCP - General 12/02/20 02/08/23 Oren Pressley MD [address] [place] [address] PCP - General Internal Medicine 02/09/23 Sima Trejo MD [address] [address] Medical Oncologist Hematology and Oncology 08/02/23 documented as of this encounter
--- OUTSIDE RECORDS SUMMARY | 2025-01-30 08:26 | XMS_ITS | Encounter Summary ---
Author Organization Healthcare Address [address] [place] [address] Care Team Providers Care Front Desk Representative Name Role Phone Pcp, No Primary Care Provider Oren Hull MD Primary Care Provider Sima Trejo MD Unavailable [phone] Encounter Details Date Type Department Care Team (Late st Contact Info) Description 08/04/2021 [facility] Only [facility] [address] [place] [phone] Sima Trejo MD [address] [place], [place] [address] [address] [phone] Social History Tobacco Use Types Packs/Day Years [...] st Contact Info) Description 02/06/2025 Orders Only [facility] [address] [place] [phone] [facility] [address] 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) 02/06/2025 10:30 AM EDT [facility] [address] [place] [phone] 02/06/2025 11:30 AM EDT [facility] [address] [place] [address] Sima Trejo MD [address] [phone] 02/06/2025 12:00 PM EDT [facility]fusion [facility] [address] [place] [address] documented as of this encounter Procedures Procedure Name Priority Date/Time Associated Diagnosis Comments CBC WITH AUTO DIFFERENTIAL Routine 08/04/2021 12:43 PM EDT documented in this encounter Results * (ABNORMAL) CBC and Differential (08/04/2021 12:43 PM EDT) External WBC 6.0 3.8 - 10.8 K/uL [facility] External Red Blood Cell (RBC) 3.89 3.80 - 5.20 M/uL [facility] External Hemoglobin 11.9(L) 12.0 - 16.0 G/DL [facility] External Hematocrit 36.0 35.0 - 47.0 % [facility] External MCV 93 80 - 100 fL [facility] External MCH 31 26 - 35 PG [facility] External MCHC 33 32 - 36 G/DL [facility] External RDW 15.0 11.0 - 15.0 % [facility] External Mean Platelet Volume 7.1 6.2 - 10.5 fL [facility] External Platelets 131 130 - 400 K/uL [facility] External Neutrophil# 4.0 1.6 - 8.4 K/uL [facility] External Lymphocyte# 1.3 0.4 - 5.1 K/uL [facility] External Absolute Monocyte (Abs [place]) 0.4 0.0 - 1.2 K/uL [facility] External Eosinophils# 0.1 0.0 - 0.8 K/uL [facility] External Baso# 0.0 0.0 - 0.3 K/uL [facility] External Neutrophils % 68.0 42.0 - 78.0 % [facility] External Lymphocyte % 21.8 11.0 - 47.0 % [facility] External Monocyte % 7.3 0.0 - 11.0 % [facility] External Eosinophil% 2.1 0.0 - 7.0 % [facility] External Basophil % 0.8 0.0 - 3.0 % [facility] External Nucleated RBC%-Auto 0.1 0.0 - 0.9 % [facility] External Nucleated RBC Absolute 0.01 Not Estab. K/uL [facility] 08/04/2021 12:4 3 PM EDT 08/04/2021 1:08 PM EDT us Sima Trejo MD LAB BLOOD ORDERABLES Final Re sult [facility] [address] [place] [address], documented in this encounter Visit Diagnoses Not on filedocumented in this encounter Care Teams Front Desk Representative Relationship Specialty Start Date End Date Pcp, No [address] [place] [address] PCP - General 12/02/20 02/08/23 Oren Pressley MD [address] [facility] [address] [place] [address] PCP - General Internal Medicine 02/09/23 Sima Trejo MD [address] [address] Medical Oncologist Hematology and Oncology 08/02/23 documented as of this encounter
--- OUTSIDE RECORDS SUMMARY | 2025-01-30 08:26 | XMS_ITS | Encounter Summary ---
Author Organization Healthcare Address [address] [place] [address] Care Team Providers Care Card Tape Converter Operator Name Role Phone Pcp, No Primary Care Provider Oren Hull MD Primary Care Provider [phone] Sima Trejo MD Unavailable [phone] Encounter Details Date Type Department Care Team (Late st Contact Info) Description 03/31/2021 Orders Only [facility] [address] [place] [phone] Sima Trejo MD [address] [place], [place] [address] [address] [phone] Social History Tobacco Use Types Packs/Day Years [...] st Contact Info) Description 02/06/2025 Orders Only [facility] [address] [place] [phone] [facility] [address] 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) 02/06/2025 10:30 AM EDT Office Visit [facility] [address] [place] [phone] 02/06/2025 11:30 AM EDT Office Visit [facility] [address] [place] [phone] Sima Trejo MD [address] [place] [phone] 02/06/2025 12:00 PM EDT Infusion [facility] [address] [place] [address] documented as of this encounter Procedures Procedure Name Priority Date/Time Associated Diagnosis Comments CBC WITH AUTO DIFFERENTIAL Routine 03/31/2021 12:13 PM EST documented in this encounter Results * (ABNORMAL) CBC and Differential (03/31/2021 12:13 PM EST) External WBC 8.0 3.8 - 10.8 K/uL [facility] External Red Blood Cell (RBC) 4.07 3.80 - 5.20 M/uL [facility] External Hemoglobin 12.1 12.0 - 16.0 G/DL [facility] External Hematocrit 36.2 35.0 - 47.0 % [facility] External MCV 89 80 - 100 fL [facility] External MCH 30 26 - 35 PG [facility] External MCHC 33 32 - 36 G/DL [facility] External RDW 17.5(H) 11.0 - 15.0 % [facility] External Mean Platelet Volume 8.7 6.2 - 10.5 fL [facility] External Platelets 148 130 - 400 K/uL [facility] External Neutrophil# 4.6 1.6 - 8.4 K/uL [facility] External Lymphocyte# 2.6 0.4 - 5.1 K/uL [facility] External Absolute Monocyte (Abs [place]) 0.6 0.0 - 1.2 K/uL [facility] External Eosinophils# 0.1 0.0 - 0.8 K/uL [facility] External Baso# 0.1 0.0 - 0.3 K/uL [facility] External Neutrophils % 57.9 42.0 - 78.0 % [facility] External Lymphocyte % 32.4 11.0 - 47.0 % [facility] External Monocyte % 8.0 0.0 - 11.0 % [facility] External Eosinophil% 0.8 0.0 - 7.0 % [facility] External Basophil % 0.9 0.0 - 3.0 % [facility] External Nucleated RBC%-Auto 0.0 0.0 - 0.9 % [facility] External Nucleated RBC Absolute 0.00 Not Estab. K/uL [facility] 03/31/2021 12:1 3 PM EST 03/31/2021 1:17 PM EST us Sima Trejo MD LAB BLOOD ORDERABLES Final Re sult [facility] [address] [place] [address], documented in this encounter Visit Diagnoses Not on filedocumented in this encounter Care Teams Card Tape Converter Operator Relationship Specialty Start Date End Date Pcp, No [address] [place] [address] PCP - General 12/02/20 02/08/23 Oren Pressley MD [address] [facility] [address] [place] [address] PCP - General Internal Medicine 02/09/23 Sima Trejo MD [address] [phone] Medical Oncologist Hematology and Oncology 08/02/23 documented as of this encounter
--- OUTSIDE RECORDS SUMMARY | 2025-01-30 08:26 | XMS_ITS | Encounter Summary ---
Author Organization [facility] Address [address] [id number] Care Team Providers Care Forestry Conservation Worker Name Role Phone Oren Pressley MD Primary Care Provider [phone] Sima Trejo MD Unavailable [phone] Reason for Visit * Reason Comments Social Work/navigation Follow-up Encounter Details Date Type Department Care Team (Late st Contact Info) Description 01/09/2025 Social Work [facility] at [address] [phone] Jo Helms, [place] [address] Social History Tobacco Use Types Packs/Day Years [...] Clinician Note - Jo Helms LCSW - 01/09/2025 2:49 PM EDT Encounter Type: In Person Visit Disease Status: Initial Psych Onc Contact Clinic Location: [facility] Disease Type: Leukemia Services Provided: Psychosocial Monitoring Intervention Level: 3 Units (1 unit = 15 minutes): 2 Narrative: GRINDER SETUP OPERATOR student met with patient. Introduced self and availability of [facility] support services. Patient was friendly, alert, oriented in conversation. Patient reports that she lives alone, neighbor provides her transportation to medical appointments, has a cancer policy. Patient expressed concern about billing for treatment. GRINDER SETUP OPERATOR student provided patient with financial navigators name and phone number. Denied additional practical resource concerns or barriers to care. Provided patient withinformation about psychosocial support services the CHAIN TESTING MACHINE OPERATOR can provide. Patient expressed understanding of how to reach out and willingness to do so if the need arises. 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) 02/06/2025 10:30 AM EDT Office Visit [facility] [address] [place] [address] 02/06/2025 11:30 AM EDT Office Visit [facility] at [address] [place] [phone] Sima Trejo MD [address] [phone] 02/06/2025 12:00 PM EDT Infusion [facility] [address] [place] [address] documented as of this encounter Visit Diagnoses Not on filedocumented in this encounter Additional Health Concerns Assessment Noted Time PHQ-9 Depression Total Score: 5 11/15/19 25 9:00 AM EDT A fall risk assessment has been complete d for the patient 08/08/2024 2:12 PM EDT documented as of this encounter Care Teams Forestry Conservation Worker Relationship Specialty Start Date End Date Oren Pressley MD [address] [place] [address] PCP - General Internal Medicine 02/09/23 Sima Trejo MD [address] [address] [phone] Medical Oncologist Hematology and Oncology 08/02/23 documented as of this encounter
--- OUTSIDE RECORDS SUMMARY | 2025-01-30 08:26 | XMS_ITS | Encounter Summary ---
Author Organization Healthcare Address [address] 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) 02/06/2025 10:30 AM EDT Office Visit [facility] at [address] [address] 02/06/2025 11:30 AM EDT Office Visit [facility] [address] [place] [phone] Sima Trejo MD [address] [place] [address] 02/06/2025 12:00 PM EDT Infusion [facility] at [address] [address] documented as of this encounter Visit Diagnoses Not on filedocumented in this encounter Additional Health Concerns Assessment Noted Time PHQ-9 Depression Total Score: 5 11/15/19 25 9:00 AM EDT A fall risk assessment has been complete d for the patient 08/08/2024 2:12 PM EDT documented as of this encounter Care Teams Workforce Management Analyst Relationship Specialty Start Date End Date Oren Pressley MD [address] [place], [place] [address] PCP - General Internal Medicine 02/09/23 Sima Trejo MD [address] [place], [place] [address] [address] Medical Oncologist Hematology and Oncology 08/02/23 documented as of this encounter
--- OUTSIDE RECORDS SUMMARY | 2025-01-30 08:26 | XMS_ITS | Encounter Summary ---
Author Organization [employer] ([place], [place], [place], [place]) Address [address] [place] [address] Care Team Providers Care Fitter'S Assistant Name Role Phone Oren Pressley MD Primary Care Provider [phone] Encounter Details Date Type Department Care Team (Late st Contact Info) Description 06/22/2019 Transcribed Document [facility] [place] [address] ProviderLaurel MD [address] [place] [phone] Social History Tobacco Use Types Packs/Day Years Used Date Smoking Tobacco: Never Assessed Comments Unknown Sex and Gender Information Value Date Recorded Sex Assigned at Not on file Legal Sex Female 4:44 PM CDT Gender Identity Not on file Sexual Orientation Not on file documented as of this encounter Miscellaneous Notes * Cerner Conversion Note - Historical ProviderMD - 06/22/2019 12:29 PM EYELET ROW MARKER Nursing Discharge Summary Entered On: 06/22/2019 12:29 [...] 06/22/2019 12:29 EST Electronically signed by [facility] Conversion Recoating Machine Operator Cerner at 08/07/2022 2:09 PM CDT documented in this encounter Plan of Treatment Not on file documented as of this encounter Visit Diagnoses Not on filedocumented in this encounter Care Teams Fitter'S Assistant Relationship Specialty Start Date End Date Oren Pressley MD [address] [place] [address] PCP - General Adolescent Medicine 05/17/23 documented as of this encounter
--- OUTSIDE RECORDS SUMMARY | 2025-01-30 08:26 | XMS_ITS | Encounter Summary ---
Author Organization [email or web address] ([place], [place], [place]) Address [address] [place] [address] Care Team Providers Care Furnace Stock Inspector Name Role Phone Oren Corbin MD Primary Care Provider [phone] Encounter Details Date Type Department Care Team (Late st Contact Info) Description 06/22/2019 Transcribed Document [facility] [place] [address] ProviderLaurel MD [address] [place] [address] Social History Tobacco Use Types Packs/Day Years Used Date Smoking Tobacco: Never Assessed Comments Unknown Sex and Gender Information Value Date Recorded Sex Assigned at Not on file Legal Sex Female 4:44 PM CDT Gender Identity Not on file Sexual Orientation Not on file documented as of this encounter Miscellaneous Notes * Cerner Conversion Note - Laurel ProviderMD - 06/22/2019 12:31 PM PT SKILLED [facility] [address] [facility] :1945 Visit Time:06/22/2019 Your Visit [...] 05, at 9:00 am Where: [address] [place] [facility] [facility] [place] [id number]- Business (1) Warfarin Instructions Indication for Warfarin [...] instructions 0.5 Tab Oral Daily 06/22/2019 Please burr picker your prescription for flecinide and start [...] to help you relax (sedative). ??? Take aixz-lxj-owogwed and prescription medicines only as told by [...] 01/24/2014 Document Revised: 11/06/2016 Document Reviewed: 10/09/2016 [email or web address] Interactive Patient Education ?? 2019 [email or web address]. Moderate Conscious Sedation, Adult, Care After [...] you are awake and alert. ??? Take vqwj-swh-lygbzkl and prescription medicines only as told by [...] 01/24/2014 Document Revised: 09/07/2016 Document Reviewed: 07/25/2016 [email or web address] Interactive Patient Education ?? 2019 [employer]. flecainide (FLEK a nide) Isaiah What is [...] may report side effects to FDA at 4-878-FRD-0416. What other drugs will affect flecainide? Tell your doctor about all your other medicines, especially: ?? digoxin; ?? a diuretic or 'water pill'; ?? a beta-mari (atenolol, metoprolol, propranolol, sotalol, and others); ?? other heart medications such as amiodarone, diltiazem, disopyramide, nifedipine, quinidine, or verapamil; or ?? seizure medication. This list is not complete. Other drugs may affect flecainide, including prescription and prpb-lis-dcjasid medicines, vitamins, and herbal products. Not all [...] to ensure that the information provided by [employer]. ('[employer]') is accurate, up-to-date, and complete, but no guarantee is made to that effect. Drug information contained herein may be time sensitive. [employer] information has been compiled for use by healthcare practitioners and consumers in the [place] and therefore [employer] does not warrant that uses outside of the [place] are appropriate, unless specifically indicated otherwise. [employer] drug information does not endorse drugs, diagnose patients or recommend therapy. [employer] drug information is an informational resource designed [...] effective or appropriate for any given patient. [employer] does not assume any responsibility for any aspect of healthcare administered with the aid of information [employer] provides. The information contained herein is not intended to cover all possible uses, directions, precautions, warnings, drug interactions, allergic reactions, or adverse effects. If you have questions about the drugs you are taking, check with your doctor, nurse or pharmacist. Copyright 7672-9247 [employer]. Version: 4.01. Revision Date: 05/03/2018. Emergency Awareness [...] Assistance with quitting is available by contacting 5-396-TZFTNOW. This is a free resource providing counseling, support, and referral. Or you may contact your personal physician. [place] Suicide Prevention Lifeline: The National Suicide Prevention [...] was given the opportunity to ask questions. Patient/Hospital Monitor Name: Patient/Hospital Monitor Signature: Relationship to Patient: Clinician/Hospital Hospital Monitor Signature: Date: Electronically signed by [facility], [facility] Conversion Channel Development Manager Cerner at 08/07/2022 2:20 PM CDT documented in this encounter Plan of Treatment Not on file documented as of this encounter Visit Diagnoses Not on filedocumented in this encounter Care Teams Furnace Stock Inspector Relationship Specialty Start Date End Date Oren Corbin MD [address] [place] [address] PCP - General Adolescent Medicine 05/17/23 documented as of this encounter
--- OUTSIDE RECORDS SUMMARY | 2025-01-30 08:27 | XMS_ITS | Encounter Summary ---
Author Organization Healthcare Address [address] [place] [address] Care Team Providers Care Animal Tech Name Role Phone Pcp, No Primary Care Provider Oren Hull MD Primary Care Provider Sima Trejo MD Unavailable [phone] Encounter Details Date Type Department Care Team (Late st Contact Info) Description 03/31/[address] [facility] [address] [place] [phone] Sima Trejo MD [address] [place], [place] [address] [address] [phone] Social History Tobacco Use Types Packs/Day Years [...] 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 [address] [place] [phone] 02/06/2025 11:30 AM EDT Office Visit [facility] [address] [place] [phone] Sima Trejo MD [address] [phone] 02/06/2025 12:00 PM EDT Infusion [facility] [address] [place] [address] documented as of this encounter Procedures Procedure Name Priority Date/Time Associated Diagnosis Comments COMPREHENSIVE METABOLIC PANEL, PLASMA Routine 03/31/2021 12:13 PM EST documented in this encounter Results * (ABNORMAL) Comprehensive Metabolic Panel, Plasma (03/31/2021 12:13 PM EST) External Glucose 113(H) 74 - 100 mg/dL [facility] External BUN 41(H) 6 - 20 mg/dL [facility] External Creatinine Blood 1.91(H) 0.50 - 0.95 mg/dL [facility] External BUN/Creat Ratio 21(H) 10 - 20 (calc) [facility] External Sodium 136 136 - 145 mmol/L [facility] External Potassium 4.9 3.4 - 5.0 mmol/L [facility] External Chloride 99 98 - 107 mmol/L [facility] External Carbon Dioxide 26 22 - 31 mmol/L [facility] External Anion Gap (AG) 11 7 - 25 (calc) [facility] External Calcium 9.3 8.6 - 10.2 mg/dL [facility] External Total Protein 6.7 6.4 - 8.3 g/dL [facility] External Albumin 4.4 3.5 - 5.2 g/dL [facility] External Globulin 2.3 1.5 - 4.5 g/dL (calc) [facility] External Albumin/Globulin Ratio 1.9 1.1 - 2.5 (calc) [facility] External Bilirubin Total 0.4 0.1 - 1.2 mg/dL [facility] External Alkaline Phosphatase 54 30 - 121 U/L [facility] External AST (SGOT) 15 0 - 32 U/L [facility] External ALT (SGPT) 12 0 - 33 U/L [facility] External EGFR (If AFR/AM) 29(A) >=60 [facility] External Estimated GFR 25(A) >=60 [facility] Comment: NOTE Chronic kidney disease is [...] [facility] [address] [place] [address], documented in this encounter Visit Diagnoses Not on filedocumented in this encounter Care Teams Animal Tech Relationship Specialty Start Date End Date Pcp, No [address] [place] [address] PCP - General 12/02/20 02/08/23 Oren Pressley MD [address] [place] [address] PCP - General Internal Medicine 02/09/23 Sima Trejo MD [address] [facility] [address] [place] [address] Medical Oncologist Hematology and Oncology 08/02/23 documented as of this encounter
--- OUTSIDE RECORDS SUMMARY | 2025-01-30 08:27 | XMS_ITS | Encounter Summary ---
Author Organization [employer] ([place], [place], [place], [place]) Address [address] [place] [address] Care Team Providers Care Union Organiser Name Role Phone Oren Pressley MD Primary Care Provider [phone] Encounter Details Date Type Department Care Team (Late st Contact Info) Description 06/22/2019 Transcribed Document [facility] [place] [facility] [place] [address] ProviderLaurel MD [address] [place] [phone] Social History Tobacco Use Types Packs/Day Years Used Date Smoking Tobacco: Never Assessed Comments Unknown Sex and Gender Information Value Date Recorded Sex Assigned at Not on file Legal Sex Female 4:44 PM CDT Gender Identity Not on file Sexual Orientation Not on file documented as of this encounter Miscellaneous Notes * Cerner Conversion Note - Historical ProviderMD - 06/22/2019 9:38 AM BLACK ASH BURNER OPERATOR Pre Procedure Adult Entered On: 06/22/2019 9:45 EST Performed On: 06/22/2019 9:38 EST by EDWINA VALIENTE RN Height and Weight, Clinical Dosing Height Source : Measured Height Entry Format : [place] Height, Feet : 5 ft(Converted to: 152 cm, 60 Inch) Height, Inches : 5 Inch(Converted to: 0 ft 5 Inch, 12.70 cm) Clinical Height : 165.1 cm Weight Source : Standing scale Weight Entry Format : [place] Clinical Dosing Weight : 109.09 kg Weight, Pounds : 240 lb Body Surface Area (BSA) : 2.14 m2 Body Mass Index : 40 kg/m2 (HI) [place] Body Weight : 57 kg EDWINA VALIENTE [...] EDWINA VALIENTE RN - 06/22/2019 9:38 EST [place] Suicide Severity Rating Scale (C-SSRS) CSSRS Past [...] Info Legal Guardian : No Support Person/Patient Vocational Rehabilitation Supervisor : Yes Want Family/Rep/Phys Notified of Admit : No Emergency Contact #1 : [place] Emergency Contact #1 Emergency Contact #1 Relationship : son Emergency Contact #2 : none Emergency Contact #2 Phone Number : none Emergency Contact #2 Relationship : none Primary Language : Estonian Preferred Communication Mode : Verbal Communication Barrier [...] Scale Risk Level : 25-45 Medium Risk [place] Fall Interventions : Adequate lighting, Assistive devices [...] EST Electronically signed by Rayne Zamudio Conversion Workers Compensation Claims Specialist Cerner at 08/07/2022 2:31 PM CDT documented in this encounter Plan of Treatment Not on file documented as of this encounter Visit Diagnoses Not on filedocumented in this encounter Care Teams Union Organiser Relationship Specialty Start Date End Date Oren Pressley MD [address] [place] [address] PCP - General Adolescent Medicine 05/17/23 documented as of this encounter
--- OUTSIDE RECORDS SUMMARY | 2025-01-30 08:27 | XMS_ITS | Encounter Summary ---
Author Organization Healthcare Address [address] [place] [address] Care Team Providers Care Engineering Project Manager Name Role Phone Pcp, No Primary Care Provider Oren Hull MD Primary Care Provider Sima Trejo MD Unavailable [phone] Encounter Details Date Type Department Care Team (Late st Contact Info) Description 06/02/2021 Orders Only [facility] [address] [place] [phone] Sima Trejo MD [address] [place], [place] [address] [address] [phone] Social History Tobacco Use Types Packs/Day Years [...] 02/06/2025 Orders Only [facility] [address] [place] [phone] [facility] [address] 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) 02/06/2025 10:30 AM EDT Office Visit [facility] [address] [place] [phone] 02/06/2025 11:30 AM EDT Office Visit [facility] [address] [place] [address] Sima Trejo MD [address] [phone] 02/06/2025 12:00 PM EDT Infusion [facility] [address] [place] [address] documented as of this encounter Procedures Procedure Name Priority Date/Time Associated Diagnosis Comments CBC WITH AUTO DIFFERENTIAL Routine 06/02/2021 12:06 PM EST documented in this encounter Results * CBC and Differential (06/02/2021 12:06 PM EST) External WBC 7.1 3.8 - 10.8 K/uL [facility] External Red Blood Cell (RBC) 4.41 3.80 - 5.20 M/uL [facility] External Hemoglobin 13.6 12.0 - 16.0 G/DL [facility] External Hematocrit 40.9 35.0 - 47.0 % [facility] External MCV 93 80 - 100 fL [facility] External MCH 31 26 - 35 PG [facility] External MCHC 33 32 - 36 G/DL [facility] External RDW 14.6 11.0 - 15.0 % [facility] External Mean Platelet Volume 7.3 6.2 - 10.5 fL [facility] External Platelets 198 130 - 400 K/uL [facility] External Neutrophil# 4.1 1.6 - 8.4 K/uL [facility] External Lymphocyte# 2.1 0.4 - 5.1 K/uL [facility] External Absolute Monocyte (Abs [place]) 0.7 0.0 - 1.2 K/uL [facility] External Eosinophils# 0.1 0.0 - 0.8 K/uL [facility] External Baso# 0.1 0.0 - 0.3 K/uL [facility] External Neutrophils % 58.0 42.0 - 78.0 % [facility] External Lymphocyte % 30.1 11.0 - 47.0 % [facility] External Monocyte % 9.4 0.0 - 11.0 % [facility] External Eosinophil% 1.5 0.0 - 7.0 % [facility] External Basophil % 1.0 0.0 - 3.0 % [facility] External Nucleated RBC%-Auto 0.1 0.0 - 0.9 % [facility] External Nucleated RBC Absolute 0.01 Not Estab. K/uL [facility] 06/02/2021 12:0 6 PM EST 06/02/2021 12:41 PM EST Sima Trejo MD LAB BLOOD ORDERABLES Final Re sult [facility] [address] [place] [address], documented in this encounter Visit Diagnoses Not on filedocumented in this encounter Care Teams Engineering Project Manager Relationship Specialty Start Date End Date Pcp, No [address] [place] [address] PCP - General 12/02/20 02/08/23 Oren Pressley MD [address] [place] [address] PCP - General Internal Medicine 02/09/23 Sima Trejo MD [address] [phone] Medical Oncologist Hematology and Oncology 08/02/23 documented as of this encounter
--- OUTSIDE RECORDS SUMMARY | 2025-01-30 08:27 | XMS_ITS | Encounter Summary ---
Author Organization Healthcare Address [address] [place] [address] Care Team Providers Care It Quality Analyst Name Role Phone Pcp, No Primary Care Provider Oren Hull MD Primary Care Provider [phone] Sima Trejo MD Unavailable [phone] Encounter Details Date Type Department Care Team (Late st Contact Info) Description 06/02/2021 Orders Only [facility] [address] [place] [phone] Sima Trejo MD [address] [place], [place] [address] [address] [phone] Social History Tobacco Use Types Packs/Day Years [...] [facility] [address] [place] [address] [facility] [address] 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) 02/06/2025 10:30 AM EDT Office Visit [facility] [address] [place] [address] 02/06/2025 11:30 AM EDT Office Visit [facility] [address] [place] [address] Sima Trejo MD [address] [place] [address] 02/06/2025 12:00 PM EDT Infusion [facility] [address] [place] [address] documented as of this encounter Procedures Procedure Name Priority Date/Time Associated Diagnosis Comments LACTATE DEHYDROGENASE, PLASMA Routine 06/02/2021 12:06 PM EST documented in this encounter Results * Lactate Dehydrogenase, Plasma (06/02/2021 12:06 PM EST) External LDH Lactate Dehydrogenase 173 135 - 233 U/L [facility] 06/02/2021 12:0 6 PM EST 06/02/2021 12:41 PM EST us Sima Trejo MD LAB BLOOD ORDERABLES Final Re sult [facility] [address] [place] [address], documented in this encounter Visit Diagnoses Not on filedocumented in this encounter Care Teams It Quality Analyst Relationship Specialty Start Date End Date Pcp, Cyndie [address] [place] [address] PCP - General 12/02/20 02/08/23 Oren Pressley MD [address] [place] [address] PCP - General Internal Medicine 02/09/23 Sima Trejo MD [address] [address] Medical Oncologist Hematology and Oncology 08/02/23 documented as of this encounter
--- OUTSIDE RECORDS SUMMARY | 2025-01-30 08:27 | XMS_ITS | Encounter Summary ---
Author Organization [employer] ([place], [place], [place], [place]) Address [address] [place] [address] Care Team Providers Care Batch And Furnace Operator Name Role Phone Oren Pressley MD Primary Care Provider [phone] Encounter Details Date Type Department Care Team (Late st Contact Info) Description 05/16/2018 Transcribed Document [facility] [place] [address] ProviderLaurel MD [address] [place] [id number] Social History Tobacco Use Types Packs/Day Years Used Date Smoking Tobacco: Never Assessed Comments Unknown Sex and Gender Information Value Date Recorded Sex Assigned at Not on file Legal Sex Female 4:44 PM CDT Gender Identity Not on file Sexual Orientation Not on file documented as of this encounter Miscellaneous Notes * Cerner Conversion Note - Historical ProviderMD - 05/16/2018 10:15 AM CLOTHING PATTERN PREPARER Event Note Entered On: 05/16/2018 10:25 EST Performed On: 05/16/2018 10:15 EST by KASSIDY SAWYER RN Event Note Event Date/Time : 05/16/2018 10:15 EST Description of Event : Return from procedure lab per stretcher awake and alert, skin w/d, no c/o, family here at bedside. Food and drink ordered. KASSIDY SAWYER RN - 05/16/2018 10:25 EST Electronically signed by [facility] Conversion Pneumatic Systems Operator Cerner at 08/07/2022 2:29 PM CDT documented in this encounter Plan of Treatment Not on file documented as of this encounter Visit Diagnoses Not on filedocumented in this encounter Care Teams Batch And Furnace Operator Relationship Specialty Start Date End Date Oren Pressley MD [address] [place] [address] PCP - General Adolescent Medicine 05/17/23 documented as of this encounter
--- OUTSIDE RECORDS SUMMARY | 2025-01-30 08:28 | XMS_ITS | Encounter Summary ---
Author Organization Healthcare Address [address] [place] [address] Care Team Providers Care Manager Bank Name Role Phone Pcp, No Primary Care Provider Oren Hull MD Primary Care Provider [phone] Sima Trejo MD Unavailable [phone] Encounter Details Date Type Department Care Team (Late st Contact Info) Description 05/26/2022 Orders Only [facility] [address] [place] [phone] Sima Trejo MD [address] [place] [address] [address] [phone] Social History Tobacco Use Types Packs/Day Years [...] st Contact Info) Description 02/06/2025 Orders Only 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 [address] [place] [address] 02/06/2025 11:30 AM EDT Office Visit [facility] [address] [place] [address] Sima Trejo MD [address] [place] [address] [address] 02/06/2025 12:00 PM EDT Infusion [facility] [address] [place] [address] documented as of this encounter Procedures Procedure Name Priority Date/Time Associated Diagnosis Comments LACTATE DEHYDROGENASE, PLASMA Routine 05/26/2022 1:07 PM EST documented in this encounter Results * Lactate Dehydrogenase, Plasma (05/26/2022 1:07 PM EST) External LDH Lactate Dehydrogenase 155 135 - 233 U/L [facility] 05/26/2022 1:07 PM EST 05/26/2022 1:19 PM EST us Sima Trejo MD LAB BLOOD ORDERABLES Final Re sult [facility] [address] [place] [address], documented in this encounter Visit Diagnoses Not on filedocumented in this encounter Care Teams Manager Bank Relationship Specialty Start Date End Date Pcp, Cyndie [address] [place] [address] PCP - General 12/02/20 02/08/23 Oren Pressley MD [address] [place] [address] PCP - General Internal Medicine 02/09/23 Sima Trejo MD [address] [address] Medical Oncologist Hematology and Oncology 08/02/23 documented as of this encounter
--- OUTSIDE RECORDS SUMMARY | 2025-01-30 08:28 | XMS_ITS | Encounter Summary ---
Author Organization Healthcare Address [address] [place] [address] Care Team Providers Care Removable Prosthodontist Name Role Phone Pcp, No Primary Care Provider Oren Hull MD Primary Care Provider Sima Trejo MD Unavailable [phone] Encounter Details Date Type Department Care Team (Late st Contact Info) Description 02/17/2022 Orders Only [facility] [address] [place] [phone] Sima Trejo MD [address] [place], [place] [address] [address] [phone] Social History Tobacco Use Types Packs/Day Years [...] 02/06/2025 Orders Only [facility] [address] [place] [phone] Sima [facility]jo MD [facility] [address] 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) 02/06/2025 10:30 AM EDT Office Visit [facility] [address] [place] [phone] 02/06/2025 11:30 AM EDT Office Visit [facility] [address] [place] [address] Sima Trejo MD [address] [place] [phone] 02/06/2025 12:00 PM EDT Infusion [facility] [address] [place] [address] documented as of this encounter Procedures Procedure Name Priority Date/Time Associated Diagnosis Comments COMPREHENSIVE METABOLIC PANEL, PLASMA Routine 02/17/2022 12:42 PM EDT documented in this encounter Results * (ABNORMAL) Comprehensive Metabolic Panel, Plasma (02/17/2022 12:42 PM EDT) External Glucose 98 74 - 100 mg/dL [facility] External BUN 21(H) 6 - 20 mg/dL [facility] External Creatinine Blood 1.34(H) 0.50 - 0.95 mg/dL [facility] External BUN/Creat Ratio 16 10 - 20 (calc) [facility] External Sodium 138 136 - 145 mmol/L [facility] External Potassium 4.0 3.4 - 5.0 mmol/L [facility] External Chloride 103 98 - 107 mmol/L [facility] External Carbon Dioxide 24 22 - 31 mmol/L [facility] External Anion Gap (AG) 11 7 - 25 (calc) [facility] External Calcium 9.1 8.6 - 10.2 mg/dL [facility] External Total Protein 6.9 6.4 - 8.3 g/dL [facility] External Albumin 4.2 3.5 - 5.2 g/dL [facility] External Globulin 2.7 1.5 - 4.5 g/dL (calc) [facility] External Albumin/Globulin Ratio 1.6 1.1 - 2.5 (calc) [facility] External Bilirubin Total 0.4 0.1 - 1.2 mg/dL [facility] External Alkaline Phosphatase 79 30 - 121 U/L [facility] External AST (SGOT) 17 0 - 32 U/L [facility] External ALT (SGPT) 15 0 - 33 U/L [facility] External Estimated GFR 40(A) >=60 [facility] Comment: NOTE New calculation for GFR (CKD-EPI 2020) is formulated without race adjustment factors at the recommendation of the National Kidney Foundation and [place] [employer]ph[employer]. This calculation has not been validated in women. For pediatric patients refer to https://www.kidney.org/professionals/KDOQI/gfr_calculatorPed 02/17/2022 12:4 2 PM EDT 02/17/2022 12:54 PM EDT us Sima Trejo MD LAB BLOOD ORDERABLES Final Re sult [facility] [address] [place] [address], documented in this encounter Visit Diagnoses Not on filedocumented in this encounter Care Teams Removable Prosthodontist Relationship Specialty Start Date End Date Pcp, No [address] [place] [address] PCP - General 12/02/20 02/08/23 Oren Pressley MD [address] [place] [address] PCP - General Internal Medicine 02/09/23 Sima Trejo MD [address] [address] Medical Oncologist Hematology and Oncology 08/02/23 documented as of this encounter
--- OUTSIDE RECORDS SUMMARY | 2025-01-30 08:28 | XMS_ITS | Encounter Summary ---
Author Organization Healthcare Address [address] [place] [address] Care Team Providers Care Neurological Surgeon Name Role Phone Pcp, No Primary Care Provider Oren Hull MD Primary Care Provider [phone] Sima Trejo MD Unavailable [phone] Encounter Details Date Type Department Care Team (Late st Contact Info) Description 02/17/2022 Orders Only [facility] [address] [place] [phone] Sima Trejo MD [address] [place], [place] [address] [address] [phone] Social History Tobacco Use Types Packs/Day Years [...] st Contact Info) Description 02/06/2025 Orders Only [facility] [address] [place] [phone] Sima [facility] MD [facility] [address] 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) 02/06/2025 10:30 AM EDT Office Visit [facility] [address] [place] [phone] 02/06/2025 11:30 AM EDT Office Visit [facility] [address] [place] [address] Sima Trejo MD [address] [phone] 02/06/2025 12:00 PM EDT Infusion [facility] [address] [place] [address] documented as of this encounter Procedures Procedure Name Priority Date/Time Associated Diagnosis Comments CBC WITH AUTO DIFFERENTIAL Routine 02/17/2022 12:42 PM EDT documented in this encounter Results * CBC and Differential (02/17/2022 12:42 PM EDT) External WBC 6.1 3.8 - 10.8 K/uL [facility] External Red Blood Cell (RBC) 4.03 3.80 - 5.20 M/uL [facility] External Hemoglobin 12.1 12.0 - 16.0 G/DL [facility] External Hematocrit 35.9 35.0 - 47.0 % [facility] External MCV 89 80 - 100 fL [facility] External MCH 30 26 - 35 PG [facility] External MCHC 34 32 - 36 G/DL [facility] External RDW 14.6 11.0 - 15.0 % [facility] External Mean Platelet Volume 7.3 6.2 - 10.5 fL [facility] External Platelets 180 130 - 400 K/uL [facility] External Neutrophil# 3.8 1.6 - 8.4 K/uL [facility] External Lymphocyte# 1.6 0.4 - 5.1 K/uL [facility] External Absolute Monocyte (Abs [facility]) 0.5 0.0 - 1.2 K/uL [facility] External Eosinophils# 0.1 0.0 - 0.8 K/uL [facility] External Baso# 0.1 0.0 - 0.3 K/uL [facility] External Neutrophils % 62.4 42.0 - 78.0 % [facility] External Lymphocyte % 25.6 11.0 - 47.0 % [facility] External Monocyte % 9.0 0.0 - 11.0 % [facility] External Eosinophil% 2.0 0.0 - 7.0 % [facility] External Basophil % 1.0 0.0 - 3.0 % [facility] External Nucleated RBC%-Auto 0.0 0.0 - 0.9 % [facility] External Nucleated RBC Absolute 0.00 Not Estab. K/uL [facility] 02/17/2022 12:4 2 PM EDT 02/17/2022 12:53 PM EDT Sima Trejo MD LAB BLOOD ORDERABLES Final Re sult Performing Organization Address City/State/[facility] Co de Phone Number [facility] [address] [place] [address], documented in this encounter Visit Diagnoses Not on filedocumented in this encounter Care Teams Neurological Surgeon Relationship Specialty Start Date End Date Pcp, No [address] [place] [address] PCP - General 12/02/20 02/08/23 Oren Pressley MD [address] [facility] [address] [place] [address] PCP - General Internal Medicine 02/09/23 Sima Trejo MD [address] [address] Medical Oncologist Hematology and Oncology 08/02/23 documented as of this encounter
--- OUTSIDE RECORDS SUMMARY | 2025-01-30 08:28 | XMS_ITS | Encounter Summary ---
Author Organization [employer] ([place], [place], [place], [place]) Address [address] [place] [address] Care Team Providers Care Hospital Scientist Name Role Phone Oren Pressley MD Primary Care Provider [phone] Encounter Details Date Type Department Care Team (Late st Contact Info) Description 05/16/2018 Transcribed Document [facility] [place] [facility] [place] [address] ProviderLaurel MD [address] [place] [id number] Social History Tobacco Use Types Packs/Day Years Used Date Smoking Tobacco: Never Assessed Comments Unknown Sex and Gender Information Value Date Recorded Sex Assigned at Not on file Legal Sex Female 4:44 PM CDT Gender Identity Not on file Sexual Orientation Not on file documented as of this encounter Miscellaneous Notes * Cerner Conversion Note - Historical ProviderMD - 05/16/2018 10:29 AM TEMPORARY ADMINISTRATIVE ASSISTANT Discharge Instructions Entered On: 05/16/2018 10:30 EST [...] - 05/16/2018 10:29 EST Electronically signed by [facility] Conversion Multifocal Button Generator Cerner at 08/07/2022 2:29 PM CDT documented in this encounter Plan of Treatment Not on file documented as of this encounter Visit Diagnoses Not on filedocumented in this encounter Care Teams Hospital Scientist Relationship Specialty Start Date End Date Oren Pressley MD [address] [place] [address] PCP - General Adolescent Medicine 05/17/23 documented as of this encounter
--- OUTSIDE RECORDS SUMMARY | 2025-01-30 08:28 | XMS_ITS | Encounter Summary ---
Author Organization Healthcare Address [address] [place] [address] Care Team Providers Care Toolmaker Name Role Phone Pcp, No Primary Care Provider Oren Hull MD Primary Care Provider Sima Trejo MD Unavailable [phone] Encounter Details Date Type Department Care Team (Late st Contact Info) Description 03/31/2021 Orders Only [facility] [address] [place] [phone] Sima Trejo MD [address] [place], [place] [address] [address] [phone] Social History Tobacco Use Types Packs/Day Years [...] Only [facility] [address] [place] [phone] Sima [facility] MD [facility] [address] 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) 02/06/2025 10:30 AM EDT [facility] [address] [place] [address] 02/06/2025 11:30 AM EDT [facility] [address] [place] [address] Sima Trejo MD [address] [address] 02/06/2025 12:00 PM EDT Infusion [facility] [address] [place] [address] documented as of this encounter Procedures Procedure Name Priority Date/Time Associated Diagnosis Comments LACTATE DEHYDROGENASE, PLASMA Routine 03/31/2021 12:13 PM EST documented in this encounter Results * Lactate Dehydrogenase, Plasma (03/31/2021 12:13 PM EST) External LDH Lactate Dehydrogenase 177 135 - 233 U/L [facility] 03/31/2021 12:1 3 PM EST 03/31/2021 1:17 PM EST us Sima Trejo MD LAB BLOOD ORDERABLES Final Re sult [facility] [address] [place] [address], documented in this encounter Visit Diagnoses Not on filedocumented in this encounter Care Teams Toolmaker Relationship Specialty Start Date End Date Pcp, Cyndie [address] [place] [address] PCP - General 12/02/20 02/08/23 Oren Pressley MD [address] [place] [address] PCP - General Internal Medicine 02/09/23 Sima Trejo MD [address] [address] Medical Oncologist Hematology and Oncology 08/02/23 documented as of this encounter
--- OUTSIDE RECORDS SUMMARY | 2025-01-30 08:28 | XMS_ITS | Encounter Summary ---
Author Organization [employer] ([place], [place], [place], [place]) Address [address] [place] [address] Care Team Providers Care Circuit Board Assembler Name Role Phone Oren Corbin MD Primary Care Provider [phone] Encounter Details Date Type Department Care Team (Late st Contact Info) Description 05/16/2018 Transcribed Document [facility] Family [place] [address] ProviderLaurel MD [address] [place] [address] Social History Tobacco Use Types Packs/Day Years Used Date Smoking Tobacco: Never Assessed Comments Unknown Sex and Gender Information Value Date Recorded Sex Assigned at Not on file Legal Sex Female 4:44 PM CDT Gender Identity Not on file Sexual Orientation Not on file documented as of this encounter Miscellaneous Notes * Cerner Conversion Note - Laurel ProviderMD - 05/16/2018 10:30 AM ASSEMBLER [employer] [address] [place] [address] Patient Copy Patient Information: Name: EFRAIN IVERSON [facility] Current Date: 05/16/2018 10:30:23 : 1945 Patient Address: [place] [address] Patient Attending Physician: TAMIKO NIETO MD-DMITRY Primary Care Provider: OREN CORBIN (REF)DELIALH Primary Care Provider Discharge Diagnosis: Atrial fibrillation Weight on Admission: 230 lb, 0 oz Comment: Follow-up Instructions: With: Address: When: GIOVANNI SHAH [address], SECTION OF CARDIOLOGY [place] [phone] Business (1) Within 1 month Discharge Instructions: [...] you are awake and alert. ??? Take kfqx-lzw-acyrkgp and prescription medicines only as told by [...] 01/24/2014 Document Revised: 09/07/2016 Document Reviewed: 07/25/2016 MetaIntell Interactive Patient Education ? 2017 MetaIntell Inc. Electrical Cardioversion, Care After This sheet [...] to help you relax (sedative). ??? Take zruh-uor-cikybar and prescription medicines only as told by [...] 01/24/2014 Document Revised: 11/06/2016 Document Reviewed: 10/09/2016 MetaIntell Interactive Patient Education ? 2017 Factyle. Medication Leaflets: amiodarone (oral) (A mi [place] [...] products. Avoid taking an herbal supplement containing [place]'s wort. Amiodarone could make you sunburn more [...] may report side effects to FDA at 2-253-DSW-1153. What other drugs will affect amiodarone? Sometimes [...] can affect amiodarone. This includes prescription and ygvt-csh-fjddsms medicines, vitamins, and herbal products. Not all [...] to ensure that the information provided by [employer]. ('Multum') is accurate, up-to-date, and complete, but no guarantee is made to that effect. Drug information contained herein may be time sensitive. [employer] information has been compiled for use by healthcare practitioners and consumers in the [place] and therefore [employer] does not warrant that uses outside of the [place] are appropriate, unless specifically indicated otherwise. [employer] drug information does not endorse drugs, diagnose patients or recommend therapy. [employer] drug information is an informational resource designed [...] effective or appropriate for any given patient. [employer] does not assume any responsibility for any aspect of healthcare administered with the aid of information [employer] provides. The information contained herein is not intended to cover all possible uses, directions, precautions, warnings, drug interactions, allergic reactions, or adverse effects. If you have questions about the drugs you are taking, check with your doctor, nurse or pharmacist. Copyright 3461-0305 Cerner [employer] Inc. Version: 7.01. Revision Date: 02/22/2018. CIGARETTE SMOKING: The facts are clear, cigarette smoking will shorten your life. Smoking can cause many illnesses along the way. As a healthcare provider, we recommend that you stop smoking. Assistance with quitting is available by contacting 1-250-ECHH-NOW. This is a free resource providing counseling, [...] Be sure to sign up for the [employer] patient portal, which gives you 09/11 access to your medical information ??? including these discharge instructions ??? using your computer, smartphone, or tablet. Just go to [employer] to get started. Questions? Call . [facility] would like to thank you for allowing us to assist you with your healthcare needs. CARL Hopson PRISCILLA SMI, (or customer contact representative) have received the above patient education materials/instructions and have verbalized understanding: Patient Signature _ Date/Time Patient Ancient Art Curator Signature (if needed) Date/Time Clinician/Hospital Ancient Art Curator Signature (if needed) Date/Time Electronically signed by Interface, [facility] Conversion Tunnel Drier Operator Cerner at 08/07/2022 2:22 PM CDT documented in this encounter Plan of Treatment Not on file documented as of this encounter Visit Diagnoses Not on filedocumented in this encounter Care Teams Circuit Board Assembler Relationship Specialty Start Date End Date Oren Corbin MD [address] [place] [address] PCP - General Adolescent Medicine 05/17/23 documented as of this encounter
--- OUTSIDE RECORDS SUMMARY | 2025-01-30 08:28 | XMS_ITS | Encounter Summary ---
Author Organization [employer] ([place], [place], [place], [place]) Address [address] [place] [address] Care Team Providers Care Auto Bumper Mechanic Name Role Phone Oren Corbin MD Primary Care Provider [phone] Encounter Details Date Type Department Care Team (Late st Contact Info) Description 05/16/2018 Transcribed Document [facility] [place] [address] ProviderLaurel MD [address] [place] [address] Social History Tobacco Use Types Packs/Day Years Used Date Smoking Tobacco: Never Assessed Comments Unknown Sex and Gender Information Value Date Recorded Sex Assigned at Not on file Legal Sex Female 4:44 PM CDT Gender Identity Not on file Sexual Orientation Not on file documented as of this encounter Miscellaneous Notes * Cerner Conversion Note - Laurel ProviderMD - 05/16/2018 12:04 PM CLOUD SERVICES ARCHITECT [address] [place] [address] Patient Copy Patient Information: Name: EFRAIN IVERSON [facility] Current Date: 05/16/2018 12:04:39 : 1945 Patient Address: [place] [address] Patient Attending Physician: TAMIKO NIETO MD-DMITRY Primary Care Provider: OREN CORBIN (REF)DELILAH Primary Care Provider Discharge Diagnosis: Atrial fibrillation Weight on Admission: 230 lb, 0 oz Comment: Follow-up Instructions: With: Address: When: GIOVANNI SHAH [address], [place] [address] Business (1) 9:45 AM Discharge Instructions: Diet [...] you are awake and alert. ??? Take inos-oui-oqvwgaz and prescription medicines only as told by [...] 01/24/2014 Document Revised: 09/07/2016 Document Reviewed: 07/25/2016 [employer]ic [employer] Interactive Patient Education ? 2017 vMobo Inc. Electrical Cardioversion, Care After This sheet [...] to help you relax (sedative). ??? Take pfit-ybl-kwopfwq and prescription medicines only as told by [...] 01/24/2014 Document Revised: 11/06/2016 Document Reviewed: 10/09/2016 vMobo Interactive Patient Education ? 2017 Digital Path. Medication Leaflets: amiodarone (oral) (A mi [place] [...] products. Avoid taking an herbal supplement containing [place]'s wort. Amiodarone could make you sunburn more [...] may report side effects to FDA at 4-281-VKV-3489. What other drugs will affect amiodarone? Sometimes [...] can affect amiodarone. This includes prescription and paoc-qnp-lmbshfr medicines, vitamins, and herbal products. Not all [...] to ensure that the information provided by [employer]. ('InfoNow') is accurate, up-to-date, and complete, but no guarantee is made to that effect. Drug information contained herein may be time sensitive. [employer] information has been compiled for use by healthcare practitioners and consumers in the [place] and therefore [employer] does not warrant that uses outside of the [place] are appropriate, unless specifically indicated otherwise. [facility] [employer] drug information does not endorse drugs, diagnose patients or recommend therapy. [employer] [facility] [employer] drug information is an informational resource designed [...] effective or appropriate for any given patient. [employer] does not assume any responsibility for any aspect of healthcare administered with the aid of information [employer] provides. The information contained herein is not intended to cover all possible uses, directions, precautions, warnings, drug interactions, allergic reactions, or adverse effects. If you have questions about the drugs you are taking, check with your doctor, nurse or pharmacist. Copyright 4028-6594 [employer]. Version: 7.01. Revision Date: 02/22/2018. CIGARETTE SMOKING: The facts are clear, cigarette smoking will shorten your life. Smoking can cause many illnesses along the way. As a healthcare provider, we recommend that you stop smoking. Assistance with quitting is available by contacting 3-936-BAXY-NOW. This is a free resource providing counseling, [...] Be sure to sign up for the [employer] patient portal, which gives you 09/11 access to your medical information ??? including these discharge instructions ??? using your computer, smartphone, or tablet. Just go to [employer] to get started. Questions? Call . [facility] would like to thank you for allowing us to assist you with your healthcare needs. CARL Hopson PRISCILLA SMI, (or support representative) have received the above patient education materials/instructions and have verbalized understanding: Patient Signature _ Date/Time Patient Qa Reviewer Signature (if needed) Date/Time Clinician/Hospital Qa Reviewer Signature (if needed) Date/Time Electronically signed by Interface, [facility] Conversion Assistant Sales Manager Cerner at 08/07/2022 2:27 PM CDT documented in this encounter Plan of Treatment Not on file documented as of this encounter Visit Diagnoses Not on filedocumented in this encounter Care Teams Auto Bumper Mechanic Relationship Specialty Start Date End Date Oren Corbin MD [address] [place] [address] PCP - General Adolescent Medicine 05/17/23 documented as of this encounter
--- OUTSIDE RECORDS SUMMARY | 2025-01-30 08:28 | XMS_ITS | Encounter Summary ---
Author Organization Healthcare Address [address] [place] [address] Care Team Providers Care Post Doc Fellowship Name Role Phone Pcp, No Primary Care Provider Oren Hull MD Primary Care Provider [phone] Sima Trejo MD Unavailable [phone] Encounter Details Date Type Department Care Team (Late st Contact Info) Description 08/04/2021 Orders Only [facility] [address] [place] [phone] Sima Trejo MD [address] [place], [place] [address] [address] [phone] Social History Tobacco Use Types Packs/Day Years [...] st Contact Info) Description 02/06/2025 Orders Only [facility] [address] [place] [phone] [facility] [address] 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) 02/06/2025 10:30 AM EDT Office Visit [facility] [address] [place] [phone] 02/06/2025 11:30 AM EDT Office Visit [facility] [address] [place] [phone] Sima Trejo MD [address] [phone] 02/06/2025 12:00 PM EDT Infusion [facility] [address] [place] [address] documented as of this encounter Procedures Procedure Name Priority Date/Time Associated Diagnosis Comments COMPREHENSIVE METABOLIC PANEL, PLASMA Routine 08/04/2021 12:43 PM EDT documented in this encounter Results * (ABNORMAL) Comprehensive Metabolic Panel, Plasma (08/04/2021 12:43 PM EDT) External Glucose 99 74 - 100 mg/dL [facility] External BUN 23(H) 6 - 20 mg/dL [facility] External Creatinine Blood 1.69(H) 0.50 - 0.95 mg/dL [facility] External BUN/Creat Ratio 14 10 - 20 (calc) [facility] External Sodium 139 136 - 145 mmol/L [facility] External Potassium 4.1 3.4 - 5.0 mmol/L [facility] External Chloride 105 98 - 107 mmol/L [facility] External Carbon Dioxide 20(L) 22 - 31 mmol/L [facility] External Anion Gap (AG) 14 7 - 25 (calc) [facility] External Calcium 9.0 8.6 - 10.2 mg/dL [facility] External Total Protein 6.4 6.4 - 8.3 g/dL [facility] External Albumin 3.9 3.5 - 5.2 g/dL [facility] External Globulin 2.5 1.5 - 4.5 g/dL (calc) [facility] External Albumin/Globulin Ratio 1.6 1.1 - 2.5 (calc) [facility] External Bilirubin Total 0.3 0.1 - 1.2 mg/dL [facility] External Alkaline Phosphatase 69 30 - 121 U/L [facility] External AST (SGOT) 11 0 - 32 U/L [facility] External ALT (SGPT) 13 0 - 33 U/L [facility] External EGFR (If AFR/AM) 33(A) >=60 [facility] External Estimated GFR 29(A) >=60 [facility] Comment: NOTE Chronic [...] LAB BLOOD ORDERABLES Final Re sult [facility] [address] [place] [address], documented in this encounter Visit Diagnoses Not on filedocumented in this encounter Care Teams Post Doc Fellowship Relationship Specialty Start Date End Date Pcp, No [address] [place] [address] PCP - General 12/02/20 02/08/23 Oren Pressley MD [address] [place] [address] PCP - General Internal Medicine 02/09/23 Sima Trejo MD [address] [facility] [address] [place] [address] Medical Oncologist Hematology and Oncology 08/02/23 documented as of this encounter
--- OUTSIDE RECORDS SUMMARY | 2025-01-30 08:28 | XMS_ITS | Encounter Summary ---
Author Organization [employer] ([place], [place], [place], [place]) Address [address] [place] [address] Care Team Providers Care Brazing Machine Operator Helper Name Role Phone Oren Pressley MD Primary Care Provider [phone] Encounter Details Date Type Department Care Team (Late st Contact Info) Description 05/16/[address] [facility] Family Medicine [facility] [place] [address] ProviderLaurel MD [address] [place] [address] Social History Tobacco Use Types Packs/Day Years Used Date Smoking Tobacco: Never Assessed Comments Unknown Sex and Gender Information Value Date Recorded Sex Assigned at Not on file Legal Sex Female 4:44 PM CDT Gender Identity Not on file Sexual Orientation Not on file documented as of this encounter Miscellaneous Notes * Cerner Conversion Note - Historical MD Leyla - 05/16/2018 9:45 AM OBGYN NURSE DATE OF PROCEDURE: 05/16/2018 DIRECT CURRENT CARDIOVERSION [...] CC1: Yasmany Vazquez M.D. Electronically signed by [facility] Conversion Senior Program Manager Cerner at 08/07/2022 2:19 PM CDT documented in this encounter Plan of Treatment Not on file documented as of this encounter Visit Diagnoses Not on filedocumented in this encounter Care Teams Brazing Machine Operator Helper Relationship Specialty Start Date End Date Oren Pressley MD [address] [place] [address] PCP - General Adolescent Medicine 05/17/23 documented as of this encounter
--- OUTSIDE RECORDS SUMMARY | 2025-01-30 08:28 | XMS_ITS | Encounter Summary ---
Author Organization [employer] ([place], [place], [place], [place]) Address [address] [place] [address] Care Team Providers Care Children Teacher Name Role Phone Oren Pressley MD Primary Care Provider [phone] Encounter Details Date Type Department Care Team (Late st Contact Info) Description 06/22/2019 Transcribed Document [facility] Family Medicine [address] [place] [address] ProviderLaurel MD [address] [place], [place] [address] Social History Tobacco Use Types Packs/Day Years Used Date Smoking Tobacco: Never Assessed Comments Unknown Sex and Gender Information Value Date Recorded Sex Assigned at Not on file Legal Sex Female 4:44 PM CDT Gender Identity Not on file Sexual Orientation Not on file documented as of this encounter Miscellaneous Notes * Cerner Conversion Note - Historical ProviderMD - 06/22/2019 12:31 PM FAMILY ENGAGEMENT SPECIALIST Stroke/Warfarin Instructions Entered On: 06/22/2019 12:31 EST [...] 06/22/2019 12:31 EST Electronically signed by [facility] Conversion Senior Principal Software Engineer Cerner at 08/07/2022 2:02 PM CDT documented in this encounter Plan of Treatment Not on file documented as of this encounter Visit Diagnoses Not on filedocumented in this encounter Care Teams Children Teacher Relationship Specialty Start Date End Date Oren Pressley MD [address] [place] [address] PCP - General Adolescent Medicine 05/17/23 documented as of this encounter
--- OUTSIDE RECORDS SUMMARY | 2025-01-30 08:28 | XMS_ITS | Encounter Summary ---
Author Organization Healthcare Address [address] [place] [address] Care Team Providers Care Food And Beverage Service Manager Name Role Phone Pcp, No Primary Care Provider Oren Hull MD Primary Care Provider [phone] Sima Trejo MD Unavailable [phone] Encounter Details Date Type Department Care Team (Late st Contact Info) Description 02/17/2022 Orders Only [facility] [address] [place] [phone] Sima Trejo MD [address] [place], [place] [address] [address] [phone] Social History Tobacco Use Types Packs/Day Years [...] 02/06/2025 Orders Only [facility] [address] [place] [phone] [facility] [address] 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) 02/06/2025 10:30 AM EDT Office Visit [facility] [address] [place] [phone] 02/06/2025 11:30 AM EDT Office Visit [facility] [address] [place] [address] Sima Trejo MD [address] [phone] 02/06/2025 12:00 PM EDT Infusion [facility] [address] [place] [address] documented as of this encounter Procedures Procedure Name Priority Date/Time Associated Diagnosis Comments URIC ACID, PLASMA Routine 02/17/2022 12: 42 PM EDT documented in this encounter Results * (ABNORMAL) Uric Acid, Plasma (02/17/2022 12:42 PM EDT) External Uric Acid 7.5(H) 2.4 - 5.7 mg/dL [facility] Comment: Reference ranges are based on population norms and do not necessarily correlate with treatment targets. In patients with an established diagnosis of gout undergoing Urate Lowering Therapy (ULT), the 2012 [place] [employer] Guidelines for Management of Gout recommend a target uric acid level of < 6 mg/dL in all patients, or lower in certain circumstances. Arthritis Care and Research Vol 64 No 10, Jan. 2012 [place] [employer] 02/17/2022 12:4 2 PM EDT 02/17/2022 12:54 PM EDT us Sima Trejo MD LAB BLOOD ORDERABLES Final Re sult [facility] [address] [place], [place] [address] [phone] documented in this encounter Visit Diagnoses Not on filedocumented in this encounter Care Teams Food And Beverage Service Manager Relationship Specialty Start Date End Date Pcp, No [address] [place] [address] PCP - General 12/02/20 02/08/23 Oren Pressley MD [address] [place] [address] PCP - General Internal Medicine 02/09/23 Sima Trejo MD [address] [place] [address] Medical Oncologist Hematology and Oncology 08/02/23 documented as of this encounter
--- OUTSIDE RECORDS SUMMARY | 2025-01-30 08:28 | XMS_ITS | Encounter Summary ---
Author Organization Healthcare Address [address] [place] [address] Care Team Providers Care Billet Inspector Name Role Phone Pcp, No Primary Care Provider Oren Hull MD Primary Care Provider Sima Trejo MD Unavailable [phone] Encounter Details Date Type Department Care Team (Late st Contact Info) Description 05/26/2022 Orders Only [facility] [address] [place] [phone] Sima Trejo MD [address] [place], [place] [address] [address] [phone] Social History Tobacco Use Types Packs/Day Years [...] st Contact Info) Description 02/06/2025 Orders Only [facility] [address] [place] [phone] [facility] [address] 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) 02/06/2025 10:30 AM EDT Office Visit [facility] [address] [place] [phone] 02/06/2025 11:30 AM EDT Office Visit [facility] [address] [place] [address] Sima Trejo MD [address] [phone] 02/06/2025 12:00 PM EDT Infusion [facility] [address] [place] [address] documented as of this encounter [...] External [facility] 30 26 - 35 [facility] External [facility] 33 32 [...] [facility] External Absolute Monocyte (Abs [place]) 0.5 0.0 - 1.2 K/uL [facility] [...] Re sult [facility] [address] [place] [address], documented in this encounter Visit Diagnoses Not on filedocumented in this encounter Care Teams Billet Inspector Relationship Specialty Start Date End Date Pcp, No [address] [place] [address] PCP - General 12/02/20 02/08/23 Oren Pressley MD [address] [facility] [address] [place] [address] PCP - General Internal Medicine 02/09/23 Sima Trejo MD [address] [address] Medical Oncologist Hematology and Oncology 08/02/23 documented as of this encounter
--- OUTSIDE RECORDS SUMMARY | 2025-01-30 08:28 | XMS_ITS | Encounter Summary ---
Author Organization Healthcare Address [address] [place] [address] Care Team Providers Care Life Insurance Salesperson Name Role Phone Pcp, No Primary Care Provider Oren Hull MD Primary Care Provider [phone] Sima Trejo MD Unavailable [phone] Encounter Details Date Type Department Care Team (Late st Contact Info) Description 02/17/2022 Orders Only [facility] [address] [place] [phone] Sima Trejo MD [address] [place], [place] [address] [address] [phone] Social History Tobacco Use Types Packs/Day Years [...] Orders Only [facility] [address] [place] [phone] Sima Trejo [facility] [address] 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) 02/06/2025 10:30 AM EDT Office Visit [facility] [address] [place] [phone] 02/06/2025 11:30 AM EDT Office Visit [facility] [address] [place] [address] Sima Trejo MD [address] [address] 02/06/2025 12:00 PM EDT Infusion [facility] [address] [place] [address] documented as of this encounter Procedures Procedure Name Priority Date/Time Associated Diagnosis Comments LACTATE DEHYDROGENASE, PLASMA Routine 02/17/2022 12:42 PM EDT documented in this encounter Results * Lactate Dehydrogenase, Plasma (02/17/2022 12:42 PM EDT) External LDH Lactate Dehydrogenase 163 135 - 233 U/L [facility] 02/17/2022 12:4 2 PM EDT 02/17/2022 12:54 PM EDT Sima Trejo MD LAB BLOOD ORDERABLES Final Re sult [facility] [address] [place] [address], documented in this encounter Visit Diagnoses Not on filedocumented in this encounter Care Teams Life Insurance Salesperson Relationship Specialty Start Date End Date Pcp, No [address] [place] [address] PCP - General 12/02/20 02/08/23 Oren Pressley MD [address] [place], [place] [address] PCP - General Internal Medicine 02/09/23 Sima Trejo MD [address] [place] [address] [address] Medical Oncologist Hematology and Oncology 08/02/23 documented as of this encounter
--- OUTSIDE RECORDS SUMMARY | 2025-01-30 08:28 | XMS_ITS | Encounter Summary ---
Author Organization [employer] ([place], [place], [place], [place]) Address [address] [place] [address] Care Team Providers Care Warehouse Picker Name Role Phone Oren Pressley MD Primary Care Provider [phone] Encounter Details Date Type Department Care Team (Late st Contact Info) Description 05/16/2018 Transcribed Document [facility] Family [facility] [place] [address] ProviderLauerl MD [address] [place] [address] [id number] Social History Tobacco Use Types Packs/Day Years Used Date Smoking Tobacco: Never Assessed Comments Unknown Sex and Gender Information Value Date Recorded Sex Assigned at Not on file Legal Sex Female 4:44 PM CDT Gender Identity Not on file Sexual Orientation Not on file documented as of this encounter Miscellaneous Notes * Cerner Conversion Note - Historical ProviderMD - 05/16/2018 8:38 AM EDUCATIONAL ADVISER Pre Procedure Adult Entered On: 05/16/2018 8:45 EST Performed On: 05/16/2018 8:38 EST by KASSIDY SAWYER RN Height and Weight, Clinical Dosing Height Source : Stated Height Entry Format : Stover Height, Feet : 5 ft(Converted to: 152 cm, 60 Inch) Height, Inches : 5.5 Inch(Converted to: 0 ft 6 Inch, 13.97 cm) Clinical Height : 166.37 cm Weight Source : Standing scale Weight Entry Format : Stover Clinical Dosing Weight : 104.55 kg Weight, Pounds : 230 lb Body Surface Area (BSA) : 2.11 m2 Body Mass Index : 37.8 kg/m2 (HI) [place] Body Weight : 58 kg KASSIDY SAWYER [...] Son Legal Guardian : No Support Person/Patient Plastics Seasoner Operator : Yes Want Family/Rep/Phys Notified of Admit : No Emergency Contact #1 : Ender Emergency Contact #1 Emergency Contact #1 Relationship : son Emergency Contact #2 : n/a Emergency Contact #2 Phone Number : n/a Emergency Contact #2 Relationship : n/a Chief Complaint : CV Information Obtained From : Patient Primary Language : Maori Preferred Communication Mode : Verbal Communication Barrier [...] Scale Risk Level : 0-24 Low Risk Kennett Fall Interventions : Adequate lighting, Assistive devices [...] on filedocumented in this encounter Care Teams Warehouse Picker Relationship Specialty Start Date End Date Oren Pressley MD [address] [place] [address] [place] [address] PCP - General Adolescent Medicine 05/17/23 documented as of this encounter
--- OUTSIDE RECORDS SUMMARY | 2025-01-30 08:28 | XMS_ITS | Encounter Summary ---
Author Organization [employer] ([place], [place], [place], [place]) Address [address] [place] [address] Care Team Providers Care Agricultural Economics Professor Name Role Phone Oren Pressley MD Primary Care Provider [phone] Encounter Details Date Type Department Care Team (Late st Contact Info) Description 05/16/2018 Transcribed Document [facility] [place] [address] ProviderLaurel MD [address] [place] [address] [id number] Social History Tobacco Use Types Packs/Day Years Used Date Smoking Tobacco: Never Assessed Comments Unknown Sex and Gender Information Value Date Recorded Sex Assigned at Not on file Legal Sex Female 4:44 PM CDT Gender Identity Not on file Sexual Orientation Not on file documented as of this encounter Miscellaneous Notes * Cerner Conversion Note - Laurel Mayer MD - 05/16/2018 12:04 PM FABRICATING MACHINE OPERATOR Patient Education Materials Follows:Medicine Electrical Cardioversion, Care [...] to help you relax (sedative). ??? Take bjuk-xgf-[id number] and prescription medicines only as told by [...] 01/24/2014 Document Revised: 11/06/2016 Document Reviewed: 10/09/2016 [employer] Interactive Patient Education ? 2017 [employer]. Pharmacology Moderate Conscious Sedation, Adult, Care After [...] you are awake and alert. ??? Take tmgp-djm-erhywhq and prescription medicines only as told by [...] 01/24/2014 Document Revised: 09/07/2016 Document Reviewed: 07/25/2016 [employer] Interactive Patient Education ? 2017 [employer] documented in this encounter Plan of Treatment Not on file documented as of this encounter Visit Diagnoses Not on filedocumented in this encounter Care Teams Agricultural Economics Professor Relationship Specialty Start Date End Date Oren Pressley MD [address] [place] [address] PCP - General Adolescent Medicine 05/17/23 documented as of this encounter
--- OUTSIDE RECORDS SUMMARY | 2025-01-30 08:29 | XMS_ITS | Encounter Summary ---
Author Organization [employer] ([place], [place], [place], [place]) Address [address] [place] [address] Care Team Providers Care Home Performance Laborer Name Role Phone Oren Pressley MD Primary Care Provider [phone] Encounter Details Date Type Department Care Team (Late st Contact Info) Description 05/16/2018 Transcribed Document [facility] [place] [facility] [place] [address] ProviderLaurel MD [address] [place] [id number] Social History Tobacco Use Types Packs/Day Years Used Date Smoking Tobacco: Never Assessed Comments Unknown Sex and Gender Information Value Date Recorded Sex Assigned at Not on file Legal Sex Female 4:44 PM CDT Gender Identity Not on file Sexual Orientation Not on file documented as of this encounter Miscellaneous Notes * Cerner Conversion Note - Historical ProviderMD - 05/16/2018 10:28 AM BULK SEALER Nursing Discharge Summary Entered On: 05/16/2018 10:29 [...] 05/16/2018 10:28 EST Electronically signed by [facility] Conversion Manager Application Cerner at 08/07/2022 2:09 PM CDT documented in this encounter Plan of Treatment Not on file documented as of this encounter Visit Diagnoses Not on filedocumented in this encounter Care Teams Home Performance Laborer Relationship Specialty Start Date End Date Oren Pressley MD [address] [place] [address] PCP - General Adolescent Medicine 05/17/23 documented as of this encounter
--- OUTSIDE RECORDS SUMMARY | 2025-01-30 08:29 | XMS_ITS | Encounter Summary ---
Author Organization Healthcare Address [address] [place] [address] Care Team Providers Care Paradichlorobenzene Machine Operator Name Role Phone Pcp, No Primary Care Provider Oren Hull MD Primary Care Provider [phone] Sima Trejo MD Unavailable [phone] Encounter Details Date Type Department Care Team (Late st Contact Info) Description 08/04/2021 Orders Only [facility] [address] [place] [phone] Sima Trejo MD [address] [place], [place] [address] [address] [phone] Social History Tobacco Use Types Packs/Day Years [...] st Contact Info) Description 02/06/2025 Orders Only [facility] [address] [place] [phone] [facility] [address] 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) 02/06/2025 10:30 AM EDT Office Visit [facility] [address] [place] [phone] 02/06/2025 11:30 AM EDT Office Visit [facility] [address] [place] [address] Sima Trejo MD [address] [address] 02/06/2025 12:00 PM EDT Infusion [facility] [address] [place] [address] documented as of this encounter Procedures Procedure Name Priority Date/Time Associated Diagnosis Comments LACTATE DEHYDROGENASE, PLASMA Routine 08/04/2021 12:43 PM EDT documented in this encounter Results * Lactate Dehydrogenase, Plasma (08/04/2021 12:43 PM EDT) External LDH Lactate Dehydrogenase 187 135 - 233 U/L [facility] 08/04/2021 12:4 3 PM EDT 08/04/2021 1:07 PM EDT Sima Trejo MD LAB BLOOD ORDERABLES Final Re sult [facility] [address] [place] [address], documented in this encounter Visit Diagnoses Not on filedocumented in this encounter Care Teams Paradichlorobenzene Machine Operator Relationship Specialty Start Date End Date Pcp, No [address] [place] [address] PCP - General 12/02/20 02/08/23 Oren Pressley MD [address] [place], [place] [address] PCP - General Internal Medicine 02/09/23 Sima Trejo MD [address] [address] Medical Oncologist Hematology and Oncology 08/02/23 documented as of this encounter
[2025-01-30] MEDS: IOPAMIDOL-370 (76%);100ML BOTTLE 85 ML IV (08:48)
[2025-01-30] MEDS: SODIUM CHLORIDE 0.9% 10ML SYR (RAD ONLY) 10 ML IV (08:48)
== END 2025-01-30 23:59 | disposition home or self-care (01) ==
LOC: RAD 08:05
PROVIDERS: PCP Nurse Practitioner Family; Visit Provider Internal Medicine Hematology & Oncology
DX: C91.12 Chronic lymphocytic leukemia of B-cell type in relapse (principal); R59.0 Localized enlarged lymph nodes; R91.8 Other nonspecific abnormal finding of lung field; Z85.72 Personal history of non-Hodgkin lymphomas
CPT/HCPCS: 70491; 71260; 74177; Q9967

== ENCOUNTER 2025-03-05 13:34 | Outpatient (CLI) | payer MEDICARE, SELFPAY ==
--- NOTE | 2025-03-05 13:45 | CA_ITS ---
APPROVED REPORT EXAM: Comprehensive 2D, Doppler, and color-flow Echocardiogram Tool Polishing Machine Operator: Anyi Bryan RT(R) Ht: 5 ft 1 in Wt: 199lbs BSA: 1.89 BP: 139/86 mmHg Indications: AFIB, hx unsuccessful cardioversion 2D Dimensions EF AP4 59.80 % GL Strain -12.9 % M-Mode Dimensions RVDd 2.20 cm (0.9-2.6) LA Diam 4.00 cm (1.9-4.0) LVDd 4.20 cm (3.5-5.7) LVDs 3.04 cm (3.5-5.7) IVSd 0.80 cm (0.6-1.1) PWd 0.80 cm (0.6-1.1) EF (Teich) 53.90% FS 27.60% EDV (Teich) 78.60 mL ESV (Teich) 36.20 mL Left Ventricle The left ventricle is normal size. Left ventricular systolic function is normal. The left ventricular ejection fraction is within the normal range. There is increased left ventricular wall thickness. IVSd is 1.3 cm. There is normal LV segmental wall motion. The left ventricular diastolic function is indeterminate. LVEF is 65% Right Ventricle The right ventricle is normal size. The right ventricular systolic function is normal. Atria Left atrium is severely dilated. Right atrium is severely dilated. There is no color Doppler evidence of interatrial shunt. Aortic Valve The aortic valve is mildly thickened. There is no hemodynamically significant aortic valvular stenosis. No aortic regurgitation is present. Mitral Valve The mitral valve is normal in structure. No evidence of mitral valve stenosis. Trace mitral regurgitation is present. Tricuspid Valve The tricuspid valve leaflets are thin and pliable. Trace tricuspid regurgitation. There is insufficient TR jet to estimate RVSP. Pulmonic Valve The pulmonary valve is grossly normal in structure. Trace pulmonic valve regurgitation is present. Great Vessels The aortic root is normal in size. IVC is normal in size and collapses >50% with inspiration. Pericardium There is no pericardial effusion. Other Information Study Quality: Fair Conclusion Normal biventricular systolic function. Increased LV wall thickness (IVSD 1.3 cm). Severe biatrial dilation. No significant valvular stenosis or regurgitation. In the setting of presence of symptoms, along with increased IVSD and biatrial dilation, further evaluation with cardiac MRI (amyloidosis protocol) + PYP nuclear scan + amyloidosis lab testing are suggested to evaluate for restrictive cardiomyopathy. Electronically signed by : Joann Carey MD 03/10/2025 19:16:33
== END 2025-03-05 23:59 | disposition home or self-care (01) ==
LOC: RT 13:35
PROVIDERS: PCP Nurse Practitioner Family; Visit Provider Nurse Practitioner Family
DX: I51.7 Cardiomegaly (principal); I48.0 Paroxysmal atrial fibrillation; M79.89 Other specified soft tissue disorders
CPT/HCPCS: 93306

== ENCOUNTER 2025-03-13 10:29 | Outpatient (CLI) | payer MEDICARE, SELFPAY ==
--- OUTSIDE RECORDS SUMMARY | 2025-02-06 10:30 | XMS_ITS | Encounter Summary ---
Author Organization [facility] Address [address] 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) [...] Sign Reading Time Taken Comments Blood Pressure 136/82 02/06/2025 10:48 AM EDT Pulse 68 02/06/2025 10:48 AM EDT Temperature 36.7 C (98 F) 02/06/2025 10:48 AM EDT Respiratory Rate - - Oxygen Saturation 96% 02/06/2025 10:48 AM EDT Inhaled Oxygen Concentration - - Weight 85.7 kg (189 lb) 02/06/2025 10:48 AM EDT Height 167.6 cm (5' 5.98 ) 02/06/2025 10:48 AM E DT Body Mass Index 30.52 02/06/2025 10:48 AM EDT documented in this encounter Miscellaneous Notes * Progress Notes - Sima Trejo MD - 02/06/2025 11:30 AM EDT [facility] HEMATOLOGY/ONCOLOGY FOLLOW UP Shea Iverson 1945 Primary [...] IVPB, 90 mg/m2 =175 mg, Intravenous, Once, 2 of 5 cycles Dose modification: 50 mg/m2 (original dose 90 mg/m2, Cycle 3, Reason: Toxicity/Complication, Comment: thrombocytopenia) Administration: 175 mg (11/14/2024), 97.5 mg (01/09/2025) riTUXimab-arrx (Riabni) 700 mg in sodium chloride 0.9 % 500 mL IVPB, 375 mg/m2 = 700 mg, Intravenous, Once, 3 of 6 cycles Administration: 700 mg (11/14/2024), 700 mg (12/12/2024), 700 mg (01/09/2025) Treatment Details Treatment goal [No plan goal] Plan Name Line Care (Peripheral) Status Active Start Date 11/14/2024 End Date Until discontinued Provider Sima Trejo MD Chemotherapy [No matching medication found in this treatment plan] Subjective History of Present Illness: Mrs. Iverson is a pleasant 79-year-old female who presents to clinic today for follow-up of her CLL/SLL. Pt is accompanied by her son. She had 4 cycles of Treanda/Rituxan, which she completed in April2013 and had a wonderful response. Secondary to increasing WBC and LU, pt had initiated imbruvica w [facility] difficulty from 01/05 through 03/09 but discontinued secondary to cardiac issues. She is accompanied by her son. Pt was seen in local ER on 12/18/[address] findings concerning for tongue mass [facility]. Pt is s/p 02/15/23 right [...] She did have some nausea last night. Pt is concerned regarding her great grandson is biting at daycare. 01/30/25 CT neck, CAP Interval improvement of neck, improved disease burden. Increase growth of RUL lesion. The following portions of the chart were reviewed this encounter and updated as appropriate: Tobacco Allergies Meds Problems Med Hx Surg Hx Fam Hx Objective Review of Systems Constitutional: Negative for chills and fever. HENT: Negative for mouth sores. Respiratory: Negative for cough and shortness of breath. Cardiovascular: Negative for chest pain. Gastrointestinal: Negative for diarrhea, nausea and vomiting. Genitourinary: Negative for frequency. Musculoskeletal: Positive for gait problem. Negative for arthralgias. Skin: Negative for rash. Neurological: Positive for extremity weakness and gait problem. Psychiatric/Behavioral: Negative. Physical Exam: Vital Signs for this encounter: BSA: 2 meters squared Visit Vitals BP 136/82 Pulse 68 Temp 36.7 ??C (98 ??F) (Temporal) Ht 1.676 m (5' 5.98 ) Wt 85.7 kg (189 lb) SpO2 96% BMI 30.52 kg/m?? Smoking Status Former BSA 2 m?? Physical Exam Vitals reviewed. HENT: Head: Normocephalic. Nose: Nose normal. Mouth/Throat: Mouth: Mucous membranes are moist. Eyes: Extraocular Movements: Extraocular movements intact. Cardiovascular: Rate and Rhythm: Normal rate. Heart sounds: Normal heart sounds. Pulmonary: Effort: Pulmonary effort is normal. Abdominal: Palpations: Abdomen is soft. Musculoskeletal: General: Swelling present. Cervical back: Normal range of motion. Skin: General: Skin is warm. Neurological: General: No focal deficit present. Mental Status: She is alert. Psychiatric: Mood and Affect: Mood normal. Performance Status: (2) Ambulatory and capable of self care, unable to carry out work activity, up and about > 50% or waking hours Results: Orders Only on 02/06/2025 Component Date Value Ref Range Status External WBC 02/06/2025 6.1 3.8 - 10.8 10*3/uL Final External Red Blood Cell (RBC) 02/06/2025 3.71 (L) 3.80 - 5.20 10*6/uL Final External Hemoglobin 02/06/2025 11.6 (L) 12.0 - 16.0 g/dL Final External Hematocrit 02/06/2025 34.4 (L) 35.0 - 47.0 % Final External MCV 02/06/2025 93 80 - 100 fL Final External MCH 02/06/2025 31 26 - 35 pg Final External MCHC 02/06/2025 34 32 - 36 g/dL Final External RDW 02/06/2025 17.1 (H) 11.0 - 15.0 % Final External Mean Platelet Volume 02/06/2025 7.4 6.2 - 10.5 fL Final External Platelet Count (Plt) 02/06/2025 136 (L) 150 - 400 10*3/uL Final External Neutrophil# 02/06/2025 2.8 1.6 - 8.4 10*3/uL Final External Lymphocyte# 02/06/2025 2.4 0.4 - 5.1 10*3/uL Final External Absolute Monocyte (Abs Mo* 02/06/2025 0.6 0.0 - 1.2 10*3/uL Final External Eosinophils# 02/06/2025 0.2 0.0 - 0.8 10*3/uL Final External Baso# 02/06/2025 0.1 0.0 - 0.3 10*3/uL Final External Neutrophils % 02/06/2025 46.4 42.0 - 78.0 % Final External Lymphocyte % 02/06/2025 39.1 11.0 - 47.0 % Final External Monocyte % 02/06/2025 10.3 0.0 - 11.0 % Final External Eosinophil% 02/06/2025 3.3 0.0 - 7.0 % Final External Basophil % 02/06/2025 0.9 0.0 - 3.0 % Final External Nucleated RBC%-Auto 02/06/2025 0.1 0.0 - 0.9 % Final External Nucleated RBC Absolute 02/06/2025 0.01 Not Estab. 10*3/uL Final External Glucose 02/06/2025 111 (H) 74 - 100 mg/dL Final External BUN 02/06/2025 20 6 - 20 mg/dL Final External Creatinine Blood 02/06/2025 1.50 (H) 0.50 - 0.95 mg/dL Final External BUN/Creat Ratio 02/06/2025 13 10 - 20 (calc) Final External Sodium 02/06/2025 136 136 - 145 mmol/L Final External Potassium 02/06/2025 4.3 3.4 - 5.0 mmol/L Final External Chloride 02/06/2025 102 98 - 107 mmol/L Final External Carbon Dioxide (CO2) 02/06/2025 23 22 - 31 mmol/L Final External Anion Gap (AG) 02/06/2025 11 7 - 25 (calc) Final External Calcium 02/06/2025 9.2 8.6 - 10.2 mg/dL Final External Total Protein 02/06/2025 6.6 6.4 - 8.3 g/dL Final External Albumin 02/06/2025 4.3 3.5 - 5.2 g/dL Final External Globulin 02/06/2025 2.3 1.5 - 4.5 Final External Albumin/Globulin Ratio 02/06/2025 1.9 1.1 - 2.5 (calc) Final External Bilirubin Total 02/06/2025 0.5 0.1 - 1.0 mg/dL Final NOTE: New reference range. External Alkaline Phosphatase 02/06/2025 81 30 - 121 U/L Final External AST (SGOT) 02/06/2025 18 0 - 32 U/L Final External ALT (SGPT) 02/06/2025 13 0 - 33 U/L Final External Estimated GFR 02/06/2025 35 (A) >=60 Final Comment: NOTE New calculation for GFR (CKD-EPI 2020) is formulated without race adjustment factors at the recommendation of the National Kidney Foundation and [place] [employer]ph[employer]. This calculation has not been validated in women. For pediatric patients refer to https://www.kidney.org/professionals/KDOQI/gfr_calculatorPed Orders Only on 01/09/2025 Component Date Value Ref Range Status External WBC 01/09/2025 6.8 3.8 - 10.8 10*3/uL Final External Red Blood Cell (RBC) 01/09/2025 3.61 (L) 3.80 - 5.20 10*6/uL Final External Hemoglobin 01/09/2025 11.0 (L) 12.0 - 16.0 g/dL Final External Hematocrit 01/09/2025 33.1 (L) 35.0 - 47.0 % Final External MCV 01/09/2025 92 80 - 100 fL Final External MCH 01/09/2025 31 26 - 35 pg Final External MCHC 01/09/2025 33 32 - 36 g/dL Final External RDW 01/09/2025 17.4 (H) 11.0 - 15.0 % Final External Mean Platelet Volume 01/09/2025 7.3 6.2 - 10.5 fL Final External Platelet Count (Plt) 01/09/2025 123 (L) 150 - 400 10*3/uL Final External Neutrophil# 01/09/2025 2.7 1.6 - 8.4 10*3/uL Final External Lymphocyte# 01/09/2025 3.5 0.4 - 5.1 10*3/uL Final External Absolute Monocyte (Abs Mo* 01/09/2025 0.3 0.0 - 1.2 10*3/uL Final External Eosinophils# 01/09/2025 0.2 0.0 - 0.8 10*3/uL Final External Baso# 01/09/2025 0.0 0.0 - 0.3 10*3/uL Final External Neutrophils % 01/09/2025 39.0 (L) 42.0 - 78.0 % Final External Lymphocyte % 01/09/2025 52.0 (H) 11.0 - 47.0 % Final External Monocyte % 01/09/2025 5.0 0.0 - 11.0 % Final External Eosinophil% 01/09/2025 3.0 0.0 - 7.0 % Final External Basophil % 01/09/2025 0.0 0.0 - 3.0 % Final External Nucleated RBC%-Auto 01/09/2025 0.2 0.0 - 0.9 % Final External Nucleated RBC Absolute 01/09/2025 0.01 Not Estab. 10*3/uL Final External Glucose 01/09/2025 128 (H) 74 - 100 mg/dL Final External BUN 01/09/2025 14 6 - 20 mg/dL Final External Creatinine Blood 01/09/2025 1.41 (H) 0.50 - 0.95 mg/dL Final External BUN/Creat Ratio 01/09/2025 10 10 - 20 (calc) Final External Sodium 01/09/2025 135 (L) 136 - 145 mmol/L Final External Potassium 01/09/2025 4.1 3.4 - 5.0 mmol/L Final External Chloride 01/09/2025 101 98 - 107 mmol/L Final External Carbon Dioxide (CO2) 01/09/2025 22 22 - 31 mmol/L Final External Anion Gap (AG) 01/09/2025 12 7 - 25 (calc) Final External Calcium 01/09/2025 9.0 8.6 - 10.2 mg/dL Final External Total Protein 01/09/2025 6.1 (L) 6.4 - 8.3 g/dL Final External Albumin 01/09/2025 4.0 3.5 - 5.2 g/dL Final External Globulin 01/09/2025 2.1 1.5 - 4.5 Final External Albumin/Globulin Ratio 01/09/2025 1.9 1.1 - 2.5 (calc) Final External Bilirubin Total 01/09/2025 0.6 0.1 - 1.0 mg/dL Final NOTE: New reference range. External Alkaline Phosphatase 01/09/2025 78 30 - 121 U/L Final External AST (SGOT) 01/09/2025 19 0 - 32 U/L Final External ALT (SGPT) 01/09/2025 13 0 - 33 U/L Final External Estimated GFR 01/09/2025 37 (A) >=60 Final Comment: NOTE New calculation for GFR (CKD-EPI 2020) is formulated without race adjustment factors at the recommendation of the National Kidney Foundation and [place] [employer] Neph[employer]. This calculation has not been validated in women. For pediatric patients refer to https://www.kidney.org/professionals/KDOQI/gfr_calculatorPed External LDH Lactate Dehydrogenase 01/09/2025 157 135 - 233 U/L Final External Hepatitis A IgM Ab (HAM) 01/09/2025 NONREACTIVE NONREACTIVE Final External Hepatitis B Surface Antig* 01/09/2025 NONREACTIVE NONREACTIVE Final External Hepatitis B Core IgM (HBC* 01/09/2025 NONREACTIVE NONREACTIVE Final External Hepatitis C Antibody (HCV* 01/09/2025 NONREACTIVE NONREACTIVE Final Comment: Antibodies to HCV were not detected; does not exclude the possibility of exposure to HCV. External Prothrombin Time (PT) 01/09/2025 18.2 (H) 9.0 - 11.0 SECONDS Final External INR - Internormal Ratio 01/09/2025 1.9 (L) 2.0 - 3.0 Final Comment: INR OF 2.0 TO 3.0 RECOMMENDED FOR: PROPHYLAXIS AND TREATMENT OF VENOUS THROMBOSIS TREATMENT OF PULMONARY EMBOLISM PREVENTION OF SYSTEMIC EMBOLISM TISSUE HEART VALVES, VALVULAR HEART DISEASE ACUTE MYOCARDIAL INFARCTION, ATRIAL FIBRILLATION INR OF 2.5 TO 3.5 RECOMMENDED FOR: RECURRENT SYSTEMIC EMBOLISM MECHANICAL PROSTHETIC VALVES Orders Only on 01/09/2025 Component Date Value Ref Range Status External Band Neutrophil% 01/09/2025 1.0 0.0 - 7.0 % Final External Atypical Lymph% 01/09/2025 0 0 - 1 % Final External Metamyelocyte % 01/09/2025 0 0 - 1 % Final External Myelocyte % 01/09/2025 0 0 - 1 % Final External Promyelocyte% 01/09/2025 0 0 % Final External Blast% 01/09/2025 0 0 % Final External Nucleated RBC%-Manual 01/09/2025 0 0 - 1 /100[WBC] Final External Smudge Cells 01/09/2025 2 (A) 0 /100[WBC] Final External Platelet Morphology 01/09/2025 NORMAL Final External Polychromasia 01/09/2025 SLIGHT (A) Final External Ovalocytes 01/09/2025 SLIGHT (A) Final No results found. Assessment/Plan 1. 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 Pt's labs are reviewed. She is off all therapies. WBC is elevated but has no symptomatic cytopoenias and lymphadenopathy. Pt is s/p right tonsillectomy with pathology c/w CLL. She was intolerant of imbruvica. We will continue Cycle #4 rituxan and holding bendamustine given her thrombocytopenia. [...] of RUL. Pt is s/p benign biopsy. However, given its contiued growth we will have her see pulmonary. 5. HTN. I have asked pt to see PCP. documented in this encounter Plan of Treatment Upcoming Encounters Date Type Department Care Team (Late st Contact Info) Description 04/05/2025 7:45 AM EST Office [facility] at [address] [phone] 04/05/2025 8:15 AM EST Office [facility] at [address] [phone] Sima Trejo MD [address] [place] [phone] 04/05/2025 8:[address] [facility] [address] [place] [address] documented as of this encounter Results * (ABNORMAL) Comprehensive metabolic panel (03/06/2025 10:55 AM EST) External Glucose 111(H) 74 - 100 mg/dL 03/06/2025 11:48 AM EST [facility] External BUN 14 6 - 20 mg/dL 03/06/2025 11:48 AM EST [facility] External Creatinine Blood 1.40(H) 0.50 - 0.95 mg/dL 03/06/2025 11:48 AM EST [facility] External BUN/Creat Ratio 10 10 - 20 (calc) 03/06/2025 11:48 AM EST [facility] External Sodium 136 136 - 145 mmol/L 03/06/2025 11:48 AM EST [facility] External Potassium 4.6 3.4 - 5.0 mmol/L 03/06/2025 11:48 AM EST [facility] External Chloride 102 98 - 107 mmol/L 03/06/2025 11:48 AM EST [facility] External Carbon Dioxide (CO2) 23 22 - 31 mmol/L 03/06/2025 11:48 AM EST [facility] External Anion Gap (AG) 11 7 - 25 (calc) 03/06/2025 11:48 AM EST [facility] External Calcium 9.2 8.6 - 10.2 mg/dL 03/06/2025 11:48 AM EST [facility] External Total Protein 6.3(L) 6.4 - 8.3 g/dL 03/06/2025 11:48 AM EST [facility] External Albumin 4.1 3.5 - 5.2 g/dL 03/06/2025 11:48 AM EST [facility] External Globulin 2.2 1.5 - 4.5 025 11:48 AM EST [facility] External Albumin/Globulin Ratio 1.9 1.1 - 2.5 (calc) 03/06/2025 11:48 AM EST [facility] External Bilirubin Total 0.4 0.1 - 1.0 mg/dL 03/06/2025 11:48 AM EST [facility] Comment:NOTE: New reference range. External Alkaline Phosphatase 69 30 - 121 U/L 03/06/2025 11:48 AM EST [facility] External AST (SGOT) 19 0 - 32 U/L 03/06/2025 11:48 AM EST [facility] External ALT (SGPT) 14 0 - 33 U/L 03/06/2025 11:48 AM EST [facility] External Estimated GFR 38(A) >=60 03/06/2025 11:48 AM EST [facility] Comment: NOTE New calculation for GFR (CKD-EPI 2020) is formulated without race adjustment factors at the recommendation of the National Kidney Foundation and [place] [employer] Neph[employer]. This calculation has not been validated in women. For pediatric patients refer to https://www.kidney.org/professionals/KDOQI/gfr_calculatorPed Blood Venous blood specimen / Unknown 03/06/2025 10:55 AM EST 03/06/2025 11:16 AM EST us Sima Trejo MD LAB BLOOD ORDERABLES Final Re sult [facility] [address] [place] [address], * (ABNORMAL) CBC and differential (03/06/2025 10:55 AM EST) External WBC 5.1 3.8 - 10.8 10*3/uL 03/06/2025 11:36 AM EST [facility] External Red Blood Cell (RBC) 3.56(L) 3.80 - 5.20 10*6/uL 03/06/2025 11:36 AM EST [facility] External Hemoglobin 11.4(L) 12.0 - 16.0 g/dL 03/06/2025 11:36 AM EST [facility] External Hematocrit 33.7(L) 35.0 - 47.0 % 03/06/2025 11:36 AM EST [facility] External MCV 95 80 - 100 fL 03/06/2025 11:36 AM EST [facility] External MCH 32 26 - 35 pg 03/06/2025 11:36 AM EST [facility] External MCHC 34 32 - 36 g/dL 03/06/2025 11:36 AM EST [facility] External RDW 16.3(H) 11.0 - 15.0 % 03/06/2025 11:36 AM EST [facility] External Mean Platelet Volume 7.8 6.2 - 10.5 fL 03/06/2025 11:36 AM EST [facility] External Platelet Count (Plt) 120(L) 150 - 400 10*3/uL 03/06/2025 11:36 AM EST [facility] External Neutrophil# 2.5 1.6 - 8.4 10*3/uL 03/06/2025 11:36 AM EST [facility] External Lymphocyte# 1.9 0.4 - 5.1 10*3/uL 03/06/2025 11:36 AM EST [facility] External Absolute Monocyte (Abs Elliott) 0.5 0.0 - 1.2 10*3/uL 03/06/2025 11:36 AM EST [facility] External Eosinophils# 0.2 0.0 - 0.8 10*3/uL 03/06/2025 11:36 AM EST [facility] External Baso# 0.1 0.0 - 0.3 10*3/uL 03/06/2025 11:36 AM EST [facility] External Neutrophils % 48.7 42.0 - 78.0 % 03/06/2025 11:36 AM EST [facility] External Lymphocyte % 37.0 11.0 - 47.0 % 03/06/2025 11:36 AM EST [facility] External Monocyte % 9.9 0.0 - 11.0 % 03/06/2025 11:36 AM EST [facility] External Eosinophil% 3.4 0.0 - 7.0 % 03/06/2025 11:36 AM EST [facility] External Basophil % 1.0 0.0 - 3.0 % 03/06/2025 11:36 AM EST [facility] External Nucleated RBC%-Auto 0.3 0.0 - 0.9 % 03/06/2025 11:36 AM EST [facility] External Nucleated RBC Absolute 0.02 Not Estab. 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)- Primary Chronic lymphoid leukemia, in relapse documented in this encounter Additional Health Concerns Assessment Noted Time PHQ-9 Depression Total Score: 5 11/15/19 25 9:00 AM EDT A fall risk assessment has been complete d for the patient 08/08/2024 2:12 PM EDT documented as of this encounter Care Teams Education Rn Relationship Specialty Start Date End Date Oren Pressley MD [address] [facility] [address] [place] [address] PCP - General Internal Medicine 02/09/23 Sima Trejo MD [address] [phone] Medical Oncologist Hematology and Oncology 08/02/23 documented as of this encounter
--- OUTSIDE RECORDS SUMMARY | 2025-02-06 11:00 | XMS_ITS | Encounter Summary ---
Author Organization Healthcare Address [address] 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 [place] [id number] 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) [...] Time Taken Comments Blood Pressure 136/82 02/06/2025 11:55 AM EDT Pulse 68 02/06/2025 11:55 AM EDT Temperature 36.7 C (98 F) 02/06/2025 11:55 AM EDT Respiratory Rate - - Oxygen Saturation 96% 02/06/2025 11:55 AM EDT Inhaled Oxygen Concentration - - Weight 85.7 kg (189 lb) 02/06/2025 11:55 AM EDT Height - - Body Mass Index 30.52 02/06/2025 10:48 AM EDT documented in this encounter Functional Status * Calculated C-SSRS Risk Score (Lifetime/Recent) Answer Date of Assessment Author No Risk Indicated 02/06/2025 11:55 AM EDT Qing Cooper, RN * Question Answer Date of Assessment Author 1. Wish to be (Past 1 Month) No 02/06/2025 11:55 AM EDT Qing Hamm, RN 2. Non-Specific Active Suici rachana Thoughts (Past 1 Month) No 02/06/2025 11:55 AM EDT Melani Hamm RN 6. Suicidal Behavior (Lifetime) No 11:55 AM EDT Qing Hamm, RN documented as of this encounter Plan of Treatment Upcoming Encounters Date Type Department Care Team (Late st Contact Info) Description 04/05/2025 7:45 AM EST Office Visit [facility] [address] [place] [address] 04/05/2025 8:15 AM EST Office [facility] [address] [place] [address] Sima Trejo MD [address] [address] 04/05/2025 8:30 AM EST Infusion [facility] [address] [place] [address] documented as of this encounter Visit Diagnoses Diagnosis 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)- Primary Chronic lymphoid leukemia, in relapse documented in this encounter Administered Medications Inactive Administered Medications - up to 3 most recent administrations Medication Order MAR Action Action Date Dose Rate Site acetaminophen (Tylenol) tablet 650 mg 650 mg, Oral, Once, 1 dose, On Wed02/06/25 at 1215, RoutineIndications: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) Given 02/06/2025 12:05 PM EDT 650 mg bendamustine (Vivimusta) 97.5 mg in sodium chloride 0.9 % 250 mL chemo IVPB 97.5 mg (50 mg/m2 1.95 m2 Treatment Plan BSA from Recorded weight), Intravenous, at 896.7 mL/hr, Administer over 20 Minutes, Once, Hazardous Drug-Tier 1 Precautions. Dispose in BLACK Hazardous Waste Container. Chemotherapy: refer to A14-065., On Wed02/06/25 at 1245, For 1 doseIndications: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) New Bag 02/06/2025 12:42 PM EDT 97.5 mg 896.7 mL/hr dexamethasone (Decadron) tablet 12 mg 12 mg, Oral, Once, 1 dose, On Wed02/06/25 at 1215, RoutineIndications: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) Given 02/06/2025 12:05 PM EDT 12 mg diphenhydrAMINE (Benadryl) tablet 50 mg 50 mg, Oral, Once, 1 dose, On Wed02/06/25 at 1215, RoutineIndications: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) Given 02/06/2025 12:05 PM EDT 50 mg ondansetron ODT (Zofran-ODT) disintegrating tablet 16 mg 16 mg, Oral, Once, 1 dose, On Wed02/06/25 at 1215, RoutineIndications: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) Given 02/06/2025 12:05 PM EDT 16 mg riTUXimab-arrx (Riabni) 700 mg in sodium chloride 0.9 % 500 mL IVPB 700 mg (rounded from 731.25 mg = 375 mg/m2 1.95 m2 Treatment Plan BSA from Recorded weight), Intravenous, Once, Concentration: 1.1 mg/mL (ATV: 615 mL) Rapid Rate: 273 mg/ji=213 mL/hr for 30 min (VTBI: 124 mL) 555 mg/jh=981 mL/hr for 60 min (VTBI: 491 mL) Refer to hypersensitivity protocol for rate changes if intolerance or adverse reaction. Specific administration requirements refer to [id number]. Refer to hypersensitivity protocol for rate changes if intolerance or adverse reaction, On Wed02/06/25 at 1245, For 1 doseIndications: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 ([facility]/HCC) New Bag 02/06/2025 1:18 PM EDT 700 mg sodium chloride 0.9 % flush 20 mL 20 mL, Intravenous, Every 1 hour PRN, Starting on Wed02/06/25 at 1153, Until Wed02/06/25 at 1808, Routine, line care, After blood draws and if any blood seen in tubing.Indications: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) Given 02/06/2025 2:50 PM EDT 20 mL documented in this encounter Additional Health Concerns Assessment Noted Time PHQ-9 Depression Total Score: 5 11/15/19 25 9:00 AM EDT A fall risk assessment has been complete d for the patient 08/08/2024 2:12 PM EDT documented as of this encounter Care Teams Chemical Process Operator Relationship Specialty Start Date End Date Oren Pressley MD [address] [place] [address] PCP - General Internal Medicine 02/09/23 Sima Trejo MD [address] [facility] [address] [place] [address] Medical Oncologist Hematology and Oncology 08/02/23 documented as of this encounter
--- OUTSIDE RECORDS SUMMARY | 2025-03-06 12:30 | XMS_ITS | Encounter Summary ---
Author Organization [facility] Address [address] 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 [address] [place] [address] Sima Trejo MD [address] [place] [phone] 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 [...] Sign Reading Time Taken Comments Blood Pressure - - Pulse 61 03/06/2025 12:14 PM EST Temperature 36.6 C (97.8 F) 03/06/2025 12:14 PM EST Respiratory Rate - - Oxygen Saturation 92% 03/06/2025 12: 14 PM EST Inhaled Oxygen Concentration - - Weight 90.1 kg (198 lb 10.2 oz) 12:14 PM EST Height 167.6 cm (5' 6 ) 03/06/2025 12:1 4 PM EST Body Mass Index 32.06 03/06/2025 12:14 PM EST documented in this encounter Functional Status * Calculated C-SSRS Risk Score (Lifetime/Recent) Answer Date of Assessment Author No Risk Indicated 03/06/2025 12:19 PM EST Latoya Gayle * Question Answer Date of Assessment Author 1. Wish to be (Past 1 Month) No 12:19 PM EST Latoya Gayle 2. Non-Specific Active Suici rachana Thoughts (Past 1 Month) No 03/06/2025 12:19 PM EST Latoya Gayle 6. Suicidal Behavior (Lifetime) No 12:19 PM Latoya Salinas documented as of this encounter Miscellaneous Notes * Progress Notes - Sima Trejo MD - 03/06/2025 12:30 PM EST [facility] HEMATOLOGY/ONCOLOGY FOLLOW UP Shea Iverson 1945 [...] IVPB, 90 mg/m2 =175 mg, Intravenous, Once, 3 of 5 cycles Dose modification: 50 mg/m2 (original dose 90 mg/m2, Cycle 3, Reason: Toxicity/Complication, Comment: thrombocytopenia) Administration: 175 mg (11/14/2024), 97.5 mg (01/09/2025), 97.5 mg (02/06/2025) riTUXimab-arrx (Riabni) 700 mg in sodium chloride 0.9 % 500 mL IVPB, 375 mg/m2 = 700 mg, Intravenous, Once, 4 of 6 cycles Administration: 700 mg (11/14/2024), 700 mg (12/12/2024), 700 mg (01/09/2025), 700 mg (02/06/2025) Treatment Details Treatment goal [No plan goal] [...] and LU, pt had initiated imbruvica w [facility] from 01/05 through 03/09 but discontinued secondary to cardiac issues. She is accompanied by her son. Pt was seen in local ER on 12/18/[address] findings concerning for tongue mass [facility]. Pt is s/p 02/15/23 right tonsillectomy [...] fever. HENT: Negative for mouth sores. Respiratory: Positive for shortness of breath. Negative for cough. Cardiovascular: Negative for chest pain. Gastrointestinal: Negative for diarrhea, nausea and vomiting. Genitourinary: Negative for frequency. Musculoskeletal: Positive for arthralgias and gait problem. Skin: Negative for rash. Neurological: Positive for extremity weakness and gait problem. Psychiatric/Behavioral: Negative. Physical Exam: Vital Signs for this encounter: BSA: 2.05 meters squared Visit Vitals Pulse 61 Temp 36.6 ??C (97.8 ??F) (Temporal) Ht 1.676 m (5' 6 ) Wt 90.1 kg (198 lb 10.2 oz) SpO2 92% BMI 32.06 kg/m?? Smoking Status Former BSA 2.05 m?? Physical Exam Vitals reviewed. HENT: Head: Normocephalic. Mouth/Throat: Mouth: Mucous membranes are moist. Eyes: Extraocular Movements: Extraocular movements intact. Cardiovascular: Rate and Rhythm: Normal rate. Heart sounds: Normal heart sounds. Pulmonary: Effort: Pulmonary effort is normal. Abdominal: Palpations: Abdomen is soft. Musculoskeletal: General: Swelling present. Skin: General: Skin is warm. Neurological: Mental Status: She is alert. Mental status is at baseline. Psychiatric: Mood and Affect: Mood normal. Performance Status: (1) Restricted in physically strenuous activity, ambulatory and able to do work of light nature Results: Orders Only on 03/06/2025 Component Date Value Ref Range Status External WBC 03/06/2025 5.1 3.8 - 10.8 10*3/uL Final External Red Blood Cell (RBC) 03/06/2025 3.56 (L) 3.80 - 5.20 10*6/uL Final External Hemoglobin 03/06/2025 11.4 (L) 12.0 - 16.0 g/dL Final External Hematocrit 03/06/2025 33.7 (L) 35.0 - 47.0 % Final External MCV 03/06/2025 95 80 - 100 fL Final External MCH 03/06/2025 32 26 - 35 pg Final External MCHC 03/06/2025 34 32 - 36 g/dL Final External RDW 03/06/2025 16.3 (H) 11.0 - 15.0 % Final External Mean Platelet Volume 03/06/2025 7.8 6.2 - 10.5 fL Final External Platelet Count (Plt) 03/06/2025 120 (L) 150 - 400 10*3/uL Final External Neutrophil# 03/06/2025 2.5 1.6 - 8.4 10*3/uL Final External Lymphocyte# 03/06/2025 1.9 0.4 - 5.1 10*3/uL Final External Absolute Monocyte (Abs Mo* 03/06/2025 0.5 0.0 - 1.2 10*3/uL Final External Eosinophils# 03/06/2025 0.2 0.0 - 0.8 10*3/uL Final External Baso# 03/06/2025 0.1 0.0 - 0.3 10*3/uL Final External Neutrophils % 03/06/2025 48.7 42.0 - 78.0 % Final External Lymphocyte % 03/06/2025 37.0 11.0 - 47.0 % Final External Monocyte % 03/06/2025 9.9 0.0 - 11.0 % Final External Eosinophil% 03/06/2025 3.4 0.0 - 7.0 % Final External Basophil % 03/06/2025 1.0 0.0 - 3.0 % Final External Nucleated RBC%-Auto 03/06/2025 0.3 0.0 - 0.9 % Final External Nucleated RBC Absolute 03/06/2025 0.02 Not Estab. 10*3/uL Final External Glucose 03/06/2025 111 (H) 74 - 100 mg/dL Final External BUN 03/06/2025 14 6 - 20 mg/dL Final External Creatinine Blood 03/06/2025 1.40 (H) 0.50 - 0.95 mg/dL Final External BUN/Creat Ratio 03/06/2025 10 10 - 20 (calc) Final External Sodium 03/06/2025 136 136 - 145 mmol/L Final External Potassium 03/06/2025 4.6 3.4 - 5.0 mmol/L Final External Chloride 03/06/2025 102 98 - 107 mmol/L Final External Carbon Dioxide (CO2) 03/06/2025 23 22 - 31 mmol/L Final External Anion Gap (AG) 03/06/2025 11 7 - 25 (calc) Final External Calcium 03/06/2025 9.2 8.6 - 10.2 mg/dL Final External Total Protein 03/06/2025 6.3 (L) 6.4 - 8.3 g/dL Final External Albumin 03/06/2025 4.1 3.5 - 5.2 g/dL Final External Globulin 03/06/2025 2.2 1.5 - 4.5 Final External Albumin/Globulin Ratio 03/06/2025 1.9 1.1 - 2.5 (calc) Final External Bilirubin Total 03/06/2025 0.4 0.1 - 1.0 mg/dL Final NOTE: New reference range. External Alkaline Phosphatase 03/06/2025 69 30 - 121 U/L Final External AST (SGOT) 03/06/2025 19 0 - 32 U/L Final External ALT (SGPT) 03/06/2025 14 0 - 33 U/L Final External Estimated GFR 03/06/2025 38 (A) >=60 Final Comment: NOTE New calculation for GFR (CKD-EPI 2020) is formulated without race adjustment factors at the recommendation of the National Kidney Foundation and [place] [employer]ph[employer]. This calculation has not been validated in women. For pediatric patients refer to https://www.kidney.org/professionals/KDOQI/gfr_calculatorPed External LDH Lactate Dehydrogenase 03/06/2025 170 135 - 233 U/L Final External Uric Acid 03/06/2025 5.1 2.4 - 6.8 mg/dL Final Comment: Reference ranges are based on population norms and do not necessarily correlate with treatment targets. In patients with an established diagnosis of gout undergoing Urate Lowering Therapy (ULT), the 2012 [place] [employer] Guidelines for Management of Gout recommend a target uric acid level of < 6 mg/dL in all patients, or lower in certain circumstances. Arthritis Care and Research Vol 64 No 10, Jan. 2012 [place] [employer] Orders Only on 02/06/2025 Component Date Value [...] recommendation of the National Kidney Foundation and [place] [employer]ph[employer]. This calculation has not been validated in women. For pediatric patients refer to https://www.kidney.org/professionals/KDOQI/gfr_calculatorPed External LDH Lactate Dehydrogenase 02/06/2025 174 135 - 233 U/L Final No results found. Assessment/Plan 1. 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 Pt's labs are reviewed. She is off all therapies. WBC is elevated but has no symptomatic cytopoenias and lymphadenopathy. Pt is s/p right tonsillectomy with pathology c/w CLL. She was intolerant of imbruvica. We will continue Cycle #5 rituxan and holding bendamustine day 2 given her thrombo cytopenia. Potential ill adverse SE include but not [...] will have her see pulmonary. 5. HTN. FU PCP. documented in this encounter Plan of Treatment Upcoming Encounters Date Type Department Care Team (Late st Contact Info) Description 04/05/2025 7:45 AM EST Office Visit [facility] [address] [place] [address] 04/05/2025 8:15 AM EST Office [facility] [address] [place] [address] Sima Trejo MD [facility] [address] [address] 04/05/2025 8:30 AM EST Infusion [facility] [place] [address] [place] [address] Scheduled Orders Name Type Priority Associated Diagnoses Orde r Schedule CBC and differential Lab STAT 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) Expected: 04/03/2025, Expires: 04/03/2026 Comprehensive metabolic panel Lab STAT 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) Expected: 04/03/2025, Expires: 04/03/2026 documented as of this encounter Visit Diagnoses Diagnosis 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)- Primary Chronic lymphoid leukemia, in relapse documented in this encounter Additional Health Concerns Assessment Noted Time PHQ-9 Depression Total Score: 5 11/15/19 25 9:00 AM EDT A fall risk assessment has been complete d for the patient 08/08/2024 2:12 PM EDT documented as of this encounter Care Teams Dispatch Coordinator Relationship Specialty Start Date End Date Oren Pressley MD [address] [place] [address] PCP - General Internal Medicine 02/09/23 Sima Trejo MD [address] [address] Medical Oncologist Hematology and Oncology 08/02/23 documented as of this encounter
--- OUTSIDE RECORDS SUMMARY | 2025-03-06 12:45 | XMS_ITS | Encounter Summary ---
Author Organization Healthcare Address [address] 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 [address] [address] Phone: tel: fax: Sima Trejo MD 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) [...] Description 04/05/2025 7:45 AM EST Office Visit [facility] at [address] [address] 04/05/2025 8:15 AM EST Office Visit [facility] at [address] [phone] Sima Trejo MD [address] [place] [address] 04/05/2025 8:30 AM EST Infusion [facility] at [facility] [address] [place] [address] documented as of this encounter [...] mg/mL (ATV: 615 mL) Rapid Rate: 273 mg/ku=844 mL/hr for 30 min (VTBI: 124 mL) 555 mg/wf=495 mL/hr for 60 min (VTBI: 491 mL) Refer to hypersensitivity protocol for rate changes if intolerance or adverse reaction. Specific administration requirements refer to A14-065. Refer to hypersensitivity protocol for rate changes if intolerance or adverse reaction, On Wed03/06/25 at 1415, For 1 doseIndications: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 ([facility]) Rate/Dose Change 03/06/2025 3:25 PM EST 496 mL/hr New Bag 03/06/2025 2:54 PM EST 700 mg sodium chloride 0.9 % flush 10 mL 10 mL, Intravenous, As needed, Starting on Wed03/06/25 at 1330, Until Wed03/06/25 at 1857, Routine, line care, Flush Before and After EVERY dose of medication.Indications: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 ([facility]) Given 03/06/2025 2:25 PM EST 10 mL [...] documented as of this encounter Care Teams Floorperson Relationship Specialty Start Date End Date Oren Pressley MD [address] [place] [address] PCP - General Internal Medicine 02/09/23 Sima Trejo MD [address] [address] Medical Oncologist Hematology and Oncology 08/02/23 documented as of this encounter
--- OUTSIDE RECORDS SUMMARY | 2025-03-13 10:35 | XMS_ITS | Encounter Summary ---
Author Organization Healthcare Address [address] [place] [address] Care Team Providers Care Press Clipper Name Role Phone Pcp, No Primary Care Provider Oren Hull MD Primary Care Provider Sima Trjeo MD Unavailable [phone] Encounter Details Date Type Department Care Team (Late st Contact Info) Description 05/26/2022 Orders Only [facility] at [facility] [place] [address] Sima Trejo MD [address] [address] Social History Tobacco Use Types [...] Description 04/05/2025 7:45 AM EST Office Visit [facility] [address] [place] [address] 04/05/2025 8:15 AM EST Office Visit [facility] [address] [place] [address] Sima Trejo MD [address] [address] 04/05/2025 8:30 AM EST Infusion [facility] at [facility] [address] [place] [phone] documented as of this encounter Procedures Procedure Name Priority Date/Time Associated Diagnosis Comments URIC ACID, PLASMA Routine 05/26/2022 1:0 7 PM EST documented in this encounter Results * (ABNORMAL) Uric Acid, Plasma (05/26/2022 1:07 PM EST) External Uric Acid 8.9(H) 2.4 - 5.7 mg/dL [facility] Comment: Reference ranges are based on population norms and do not necessarily correlate with treatment targets. In patients with an established diagnosis of gout undergoing Urate Lowering Therapy (ULT), the 2012 [place] [employer] Guidelines for Management of Gout recommend a target uric acid level of < 6 mg/dL in all patients, or lower in certain circumstances. Arthritis Care and Research Vol 64 No , Jan. 2012 [place] [employer] 05/26/2022 1:07 PM EST 05/26/2022 1:19 PM EST us Sima Trejo MD LAB BLOOD ORDERABLES Final Re sult [facility] [address] [place] [address], documented in this encounter Visit Diagnoses Not on filedocumented in this encounter Care Teams Press Clipper Relationship Specialty Start Date End Date Pcp, No [address] [place] [address] PCP - General 12/02/20 02/08/23 Oren Pressley MD [address] [place], [place] [address] PCP - General Internal Medicine 02/09/23 Sima Trejo MD [address] [phone] Medical Oncologist Hematology and Oncology 08/02/23 documented as of this encounter
--- OUTSIDE RECORDS SUMMARY | 2025-03-13 10:35 | XMS_ITS | Referral Summary ---
Author Organization [employer] ([place], [place], [place], [place], [place]) Address [address] [place] [address] Care Team Providers Care Testing Projects Administrator Name Role Phone Oren Pressley MD Primary Care Provider + [phone] Allergies No known active allergies Medications clonazePAM [...] Date [place] Speak language other than Faro[place] at home Not on file 04/30/2023 Want [...] Insurance MEDICARE PART A B Care Teams Testing Projects Administrator Relationship Specialty Start Date End Date Oren Pressley MD [address] [place] [address] [place] [address] PCP - General Adolescent Medicine 05/17/23
--- OUTSIDE RECORDS SUMMARY | 2025-03-13 10:35 | XMS_ITS | Encounter Summary ---
Author Organization Healthcare Address [address] [place] [address] Care Team Providers Care Safety Advisor Name Role Phone Pcp, No Primary Care Provider Oren Hull MD Primary Care Provider Sima Trejo MD Unavailable [phone] Encounter Details Date Type Department Care Team (Late st Contact Info) Description 05/26/2022 Orders Only [facility] [address] [place] [address] Sima Trejo MD [address] [address] Social History Tobacco Use Types [...] Description 04/05/2025 7:45 AM EST Office Visit [facility] [address] [place] [address] 04/05/2025 8:15 AM EST Office Visit [facility] [address] [place] [address] Sima Trejo MD [address] [address] 04/05/2025 8:30 AM EST Infusion [facility] [place] [address] documented as of this encounter Procedures Procedure Name Priority Date/Time Associated Diagnosis Comments COMPREHENSIVE METABOLIC PANEL, PLASMA Routine 05/26/2022 1:07 PM EST documented in this encounter Results * (ABNORMAL) Comprehensive Metabolic Panel, Plasma (05/26/2022 1:07 PM EST) External Glucose 116(H) 74 - 100 mg/dL [facility] External BUN 22(H) 6 - 20 mg/dL [facility] External Creatinine Blood 1.15(H) 0.50 - 0.95 mg/dL [facility] External BUN/Creat Ratio 19 10 - 20 (calc) [facility] External Sodium 140 136 - 145 mmol/L [facility] External Potassium 4.4 3.4 - 5.0 mmol/L [facility] External Chloride 104 98 - 107 mmol/L [facility] External Carbon Dioxide 25 22 - 31 mmol/L [facility] External Anion Gap (AG) 11 7 - 25 (calc) [facility] External Calcium 9.5 8.6 - 10.2 mg/dL [facility] External Total Protein 7.0 6.4 - 8.3 g/dL [facility] External Albumin 4.3 3.5 - 5.2 g/dL [facility] External Globulin 2.7 1.5 - 4.5 g/dL (calc) [facility] External Albumin/Globulin Ratio 1.6 1.1 - 2.5 (calc) [facility] External Bilirubin Total 0.4 0.1 - 1.2 mg/dL [facility] External Alkaline Phosphatase 71 30 - 121 U/L [facility] External AST (SGOT) 18 0 - 32 U/L [facility] External ALT (SGPT) 15 0 - 33 U/L [facility] External Estimated GFR 49(A) >=60 [facility] Comment: NOTE New calculation for GFR (CKD-EPI 2020) is formulated without race adjustment factors at the recommendation of the National Kidney Foundation and [place] [employer]. This calculation has not been validated in women. For pediatric patients refer to https://www.kidney.org/professionals/KDOQI/gfr_calculatorPed 05/26/2022 1:07 PM EST 05/26/2022 1:19 PM EST us Sima Trejo MD LAB BLOOD ORDERABLES Final Re sult [facility] [address] [place] [address], documented in this encounter Visit Diagnoses Not on filedocumented in this encounter Care Teams Safety Advisor Relationship Specialty Start Date End Date Pcp, No [address] [place] [address] PCP - General 12/02/20 02/08/23 Oren Pressley MD [address] [place] [address] PCP - General Internal Medicine 02/09/23 Sima Trejo MD [address] [address] Medical Oncologist Hematology and Oncology 08/02/23 documented as of this encounter
--- OUTSIDE RECORDS SUMMARY | 2025-03-13 10:35 | XMS_ITS | Clinical Summary ---
Author Organization Healthcare Address [address] [place] [address] Care Team Providers Care Tool Coordinator Name Role Phone Oren Pressley MD Primary Care Provider [phone] Sima Trejo MD Unavailable [phone] Allergies No known active allergies Medications [...] by mouth Daily. Active ergocalciferol 1.25 MG (03204 UT) capsule 3 Active cyanocobalamin (Vitamin B-12) [...] Encounters Date Type Department Care Team Description 03/06/2025 12:45 PM EST Infusion [facility] [address] [place] [address] 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) (Primary Dx) 03/06/2025 12:30 PM EST Office Visit [facility] [address] [place] [address] Sima Trejo MD 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) (Primary Dx) 03/06/2025 Travel 03/06/2025 Orders Only [facility] [address] [place] [address] Sima Trejo MD 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 ([facility]/HCC); History of non-Hodgkin's lymphoma; Lung nodule 02/06/2025 12:00 PM EDT Infusion [facility] [address] [place] [address] 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) (Primary Dx) 02/06/2025 11:30 AM EDT Office Visit [facility] [address] [place] [address] Sima Trejo MD 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 ([facility]/HCC) (Primary Dx) 02/06/2025 Social Work [facility] [address] [place] [address] Deena Newton 02/06/2025 Travel 02/06/2025 Orders Only [facility] [address] [place] [address] Sima Trejo MD 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 ([facility]/HCC) 01/30/2025 Orders Only [facility] [address] [place] [address] Sima Trejo MD 01/11/2025 [facility]ly [facility] Work [facility] [address] [place] [address] Jo Helms, SENIOR ACCOUNTING MANAGER 01/10/2025 Social Work Psych Oncology [address] [place] [address] Janet Thomas 01/09/2025 12:00 PM EDT Infusion [facility] [place] [address] [place] [address] 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) (Primary Dx) 01/09/2025 11:45 AM EDT Office Visit [facility] [place] [address] [place] [address] Sima Trejo MD 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) (Primary Dx) 01/09/2025 Social Work [facility] [address] [place] [address] Jo Helms, SENIOR ACCOUNTING MANAGER 01/09/2025 Orders Only [facility] [place] [address] [place] [address] Sima Trejo MD 01/09/2025 Travel 01/09/2025 Orders Only [facility] [place] [address] [place] [address] Sima Trejo MD 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); History of non-Hodgkin's lymphoma; Weakness; Atrial fibrillation, chronic (CMS/HCC) 12/21/2024 Refill [facility] [place] [address] [place] [address] Sima Trejo MD 12/12/2024 11:30 AM EDT Infusion [facility] [place] [address] [place] [address] 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) (Primary Dx) 12/12/2024 11:15 AM EDT Office Visit [facility] [place] [address] [place] [address] Sima Trejo MD 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 ([facility]/HCC) (Primary Dx) 12/12/2024 Orders Only [facility] [address] [place] [address] Jo Nur, PharmD 12/12/2024 Travel 12/12/2024 Orders Only [facility] [address] [place] [address] Sima Trejo MD 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 ([facility]); History of non-Hodgkin's lymphoma; Tongue mass; Lung nodule from Last 3 Months Immunizations Immunization Administration [...] Mass Index 32.08 03/06/2025 1:29 PM EST Plan of Treatment Upcoming Encounters Date Type Department Care Team (Late st Contact Info) Description 04/05/2025 7:45 AM EST Office Visit [facility] at [address] [address] 04/05/2025 8:15 AM EST Office Visit [facility] at [address] [address] [place] [address] [place] [address] 04/05/2025 8:30 AM EST Infusion [facility] at [address] [place] [address] Health Maintenance Due Date Last Done Comments [facility]-Bone Density Scan 1945 [facility]-Medicare Annual Wellness (AWV) 1945 [facility]-Infant/Child/Adol SDOH Screenings 1945 [facility]-Obesity Intervention 08/18/1949 [facility]- SDOH Screenings 08/18/1961 [facility]-Adult SDOH Screenings 08/18/1961 [facility]-Zoster Vaccines (1 of 2) 01/18/2017 01/17/2019, 11/23/2016 [facility]-RSV Vaccine: 60+ Years or (1 - 1-dose 75+ series) 08/18/2018 [id number] Vaccine ( season) 2024 03/16/2023, 01/08/2021, 07/19/2020, Additional history [...] Date/Time Associated Diagnosis Comments URIC ACID, PLASMA STAT 03/06/2025 10: 55 AM EST 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) History of non-Hodgkin's lymphoma Lung nodule LACTATE DEHYDROGENASE, PLASMA STAT 03/06/2025 10:55 AM EST 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) History of non-Hodgkin's lymphoma Lung nodule COMPREHENSIVE METABOLIC PANEL, PLASMA STAT 03/06/2025 10:55 AM EST 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) CBC WITH AUTO DIFFERENTIAL STAT 03/06/2025 10:55 AM EST 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) LACTATE DEHYDROGENASE, PLASMA STAT 02/06/2025 10:14 AM EDT 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) COMPREHENSIVE METABOLIC PANEL, PLASMA STAT 02/06/2025 10:14 AM EDT 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) CBC WITH AUTO DIFFERENTIAL STAT 02/06/2025 10:14 AM EDT 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) CT SOFT TISSUE NECK W IV CONTRAST Routine 01/30/2025 2:[address] CHEST W IV CONTRAST Routine 2:[address] ABDOMEN PELVIS W IV CONTRAST Routine 01/30/2025 1:58 PM EDT MANUAL DIFFERENTIAL Routine 01/09/2025 1 0:50 AM [...] 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) from Last 3 Months Results * (ABNORMAL) CBC and differential (03/06/2025 10:55 AM EST) Only the most recent of4 resultswithin the time period is included. External WBC 5.1 3.8 - 10.8 10*3/uL 03/06/2025 11:36 AM EST [facility] External Red Blood Cell (RBC) 3.56(L) 3.80 - 5.20 10*6/uL 03/06/2025 11:36 AM EST [facility] External Hemoglobin 11.4(L) 12.0 - 16.0 g/dL 03/06/2025 11:36 AM EST [facility] External Hematocrit 33.7(L) 35.0 - 47.0 % 03/06/2025 11:36 AM EST [facility] External MCV 95 80 - 100 fL 03/06/2025 11:36 AM EST [facility] External MCH 32 26 - 35 pg 03/06/2025 11:36 AM EST [facility] External MCHC 34 32 - 36 g/dL 03/06/2025 11:36 AM EST [facility] External RDW 16.3(H) 11.0 - 15.0 % 03/06/2025 11:36 AM EST [facility] External Mean Platelet Volume 7.8 6.2 - 10.5 fL 03/06/2025 11:36 AM EST [facility] External Platelet Count (Plt) 120(L) 150 - 400 10*3/uL 03/06/2025 11:36 AM EST [facility] External Neutrophil# 2.5 1.6 - 8.4 10*3/uL 03/06/2025 11:36 AM EST [facility] External Lymphocyte# 1.9 0.4 - 5.1 10*3/uL 03/06/2025 11:36 AM EST [facility] External Absolute Monocyte (Abs [place]) 0.5 0.0 - 1.2 10*3/uL 03/06/2025 11:36 AM EST [facility] External Eosinophils# 0.2 0.0 - 0.8 10*3/uL 03/06/2025 11:36 AM EST [facility] External Baso# 0.1 0.0 - 0.3 10*3/uL 03/06/2025 11:36 AM EST [facility] External Neutrophils % 48.7 42.0 - 78.0 % 03/06/2025 11:36 AM EST [facility] External Lymphocyte % 37.0 11.0 - 47.0 % 03/06/2025 11:36 AM EST [facility] External Monocyte % 9.9 0.0 - 11.0 % 03/06/2025 11:36 AM EST [facility] External Eosinophil% 3.4 0.0 - 7.0 % 03/06/2025 11:36 AM EST [facility] External Basophil % 1.0 0.0 - 3.0 % 03/06/2025 11:36 AM EST [facility] External Nucleated RBC%-Auto 0.3 0.0 - 0.9 % 03/06/2025 11:36 AM EST [facility] External Nucleated RBC Absolute 0.02 Not Estab. 10*3/uL 03/06/2025 11:36 AM EST [facility] Blood Venous blood specimen / Unknown 03/06/2025 10:55 AM EST 03/06/2025 11:17 AM EST us Sima Trejo MD LAB BLOOD ORDERABLES Final Re sult [facility] [address] [place] [address], * Uric Acid, Plasma (03/06/2025 10:55 AM EST) Only the most recent of2 resultswithin the time period is included. External Uric Acid 5.1 2.4 - 6.8 mg/dL 03/06/2025 11:48 AM EST [facility] Comment: Reference ranges are based on population norms and do not necessarily correlate with treatment targets. In patients with an established diagnosis of gout undergoing Urate Lowering Therapy (ULT), the 2012 [place] [employer] Guidelines for Management of Gout recommend a target uric acid level of < 6 mg/dL in all patients, or lower in certain circumstances. Arthritis Care and Research Vol 64 No , 2011 [place] [employer] Blood Venous blood specimen / Unknown 03/06/2025 10:55 AM EST 03/06/2025 11:16 AM EST us Sima Trejo MD LAB BLOOD ORDERABLES Final Re sult Performing Organization Address City/[facility] Co de Phone Number [facility] [address] [place] [address], [place] [phone] * Lactate Dehydrogenase, Plasma (03/06/2025 10:55 AM EST) Only the most recent of4 resultswithin the time period is included. External LDH Lactate Dehydrogenase 170 135 - 233 U/L 03/06/2025 12:02 PM EST [facility] Blood Venous blood specimen / Unknown 03/06/2025 10:55 AM EST 03/06/2025 11:31 AM EST us Sima Trejo MD LAB BLOOD ORDERABLES Final Re sult Performing Organization Address [facility] Co de Phone Number [facility] [address] [place] [address], [place] [phone] * (ABNORMAL) Comprehensive metabolic panel (03/06/2025 10:55 AM EST) Only the most recent of4 resultswithin the time period is included. External Glucose 111(H) 74 - 100 mg/dL 03/06/2025 11:48 AM [facility] External BUN 14 6 - 20 mg/dL 03/06/2025 11:48 AM [facility] External Creatinine Blood 1.40(H) 0.50 - 0.95 mg/dL 03/06/2025 11:48 AM [facility] External BUN/Creat Ratio 10 10 - 20 (calc) 03/06/2025 11:48 AM [facility] External Sodium 136 136 - 145 mmol/L 03/06/2025 11:48 AM [facility] External Potassium 4.6 3.4 - 5.0 mmol/L 03/06/2025 11:48 AM [facility] External Chloride 102 98 - 107 mmol/L 03/06/2025 11:48 AM [facility] External Carbon Dioxide (CO2) 23 22 - 31 mmol/L 03/06/2025 11:48 AM [facility] External Anion Gap (AG) 11 7 - 25 (calc) 03/06/2025 11:48 AM [facility] External Calcium 9.2 8.6 - 10.2 mg/dL 03/06/2025 11:48 AM [facility] External Total Protein 6.3(L) 6.4 - 8.3 g/dL 03/06/2025 11:48 AM [facility] External Albumin 4.1 3.5 - 5.2 g/dL 03/06/2025 11:48 AM [facility] External Globulin 2.2 1.5 - 4.5 025 11:48 AM [facility] External Albumin/Globulin Ratio 1.9 1.1 - 2.5 (calc) 03/06/2025 11:48 AM [facility] External Bilirubin Total 0.4 0.1 - 1.0 mg/dL 03/06/2025 11:48 AM [facility] Comment:NOTE: New reference range. External Alkaline Phosphatase 69 30 - 121 U/L 03/06/2025 11:48 AM [facility] External AST (SGOT) 19 0 - 32 U/L 03/06/2025 11:48 AM [facility] External ALT (SGPT) 14 0 - 33 U/L 03/06/2025 11:48 AM EST [facility] External Estimated GFR 38(A) >=60 03/06/2025 11:48 AM EST [facility] Comment: NOTE New calculation for [...] Re sult [facility] [place] [address], * CT Soft Tissue Neck w IV Contrast (01/30/2025 2:02 PM EDT) Anatomical Region Laterality Modality Neck Computed Tomogra phy us Sima Trejo MD IMG CT PROCEDURES Final Resul t * CT Chest w IV Contrast (01/30/2025 2:00 PM EDT) Anatomical Region Laterality Modality Chest Computed Tomogra phy us Sima Trejo MD IMG CT PROCEDURES Final Resul t * CT Abdomen Pelvis w IV Contrast (01/30/2025 1:58 PM EDT) Anatomical Region Laterality Modality Abdomen, Pelvis Computed Tomogra phy us Sima Trejo MD IMG CT PROCEDURES Final Resul t * Acute Hepatitis Panel (01/09/2025 10:50 AM EDT) External Hepatitis A IgM Ab (HAM) NONREACTIVE NONREACTIVE 01/09/2025 1:19 PM EDT [facility] External Hepatitis B Surface Antigen (HBSAg) NONREACTIVE NONREACTIVE 01/09/2025 1:19 PM EDT [facility] External Hepatitis B Core IgM (HBCM) NONREACTIVE NONREACTIVE 01/09/2025 1:19 PM EDT [facility] External Hepatitis C Antibody (HCV Ab) NONREACTIVE NONREACTIVE 01/09/2025 1:19 PM EDT [facility] Comment: Antibodies to HCV were not detected; does not exclude the possibility of exposure to HCV. Blood Venous blood specimen / Unknown 01/09/2025 10:50 AM EDT 01/09/2025 11:30 AM EDT us Sima Trejo MD LAB BLOOD ORDERABLES Final Re sult [facility] [address] [place] [address], * (ABNORMAL) Manual Differential (01/09/2025 10:50 AM EDT) External Band Neutrophil% 1.0 0.0 - 7.0 % 01/09/2025 11:55 AM EDT [facility] External Atypical Lymph% 0 0 - 1 % 01/09/2025 11:55 AM EDT [facility] External Metamyelocyte % 0 0 - 1 % 01/09/2025 11:55 AM EDT [facility] External Myelocyte % 0 0 - 1 % 01/09/2025 11:55 AM EDT [facility] External Promyelocyte% 0 0 % 01/09/2025 11:55 AM EDT [facility] External Blast% 0 0 % 11:55 AM EDT [facility] External Nucleated RBC%-Manual 0 0 - 1 /100{WBC} 01/09/2025 11:55 AM EDT [facility] External Smudge Cells 2(A) 0 /100{WBC} 01/09/2025 11:55 AM EDT [facility] External Platelet Morphology NORMAL 01/09/2025 11:55 AM EDT [facility] External Polychromasia SLIGHT(A) 01/09/2025 11:55 AM EDT [facility] External Ovalocytes SLIGHT(A) 01/09/2025 11:55 AM EDT [facility] 01/09/2025 10:5 0 AM EDT 01/09/2025 11:16 AM EDT Sima Trejo MD LAB BLOOD ORDERABLES Final Re sult Performing Organization Address [facility] Co de Phone Number [facility] [address] [place] [address], * (ABNORMAL) Prothrombin Time/INR (01/09/2025 10:50 AM EDT) External Prothrombin Time (PT) 18.2(H) 9.0 - 11.0 SECONDS 01/09/2025 11:44 AM EDT [facility] External INR - Internormal Ratio 1.9(L) 2.0 - 3.0 01/09/2025 11:44 AM EDT [facility] Comment: INR OF 2.0 TO [...] ORDERABLES Final Re sult Performing Organization Address [facility] de Phone Number [facility] [address] [place] [address], from Last 3 Months [place] [phone] MEDICARE Care Teams Tool Coordinator Relationship Specialty Start Date End Date Oren Pressley MD [address] [place] [address] PCP - General Internal Medicine 02/09/23 Sima Trejo MD [address] [address] Medical Oncologist Hematology and Oncology 08/02/23
--- OUTSIDE RECORDS SUMMARY | 2025-03-13 10:35 | XMS_ITS | Encounter Summary ---
Author Organization Healthcare Address [address] [place] [address] Care Team Providers Care Senior Java Data Architect Name Role Phone Oren Pressley MD Primary Care Provider Sima Trejo MD Unavailable [phone] Encounter Details Date Type Department Care Team (Late st Contact Info) Description 02/06/2025 Orders Only [facility] at [facility] [address] [place] [address] Sima Trejo MD [address] [facility] [address] [place] [address] 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/[facility]) Social History Tobacco Use Types Packs/Day Years [...] Description 04/05/2025 7:45 AM EST Office Visit [facility] at [address] [phone] 04/05/2025 8:15 AM EST Office Visit [facility] at [address] [address] [place] [address] [place] [phone] 04/05/2025 8:30 AM EST Infusion [facility] at [address] [address] documented as of this encounter Procedures Procedure Name Priority Date/Time Associated Diagnosis Comments CBC WITH AUTO DIFFERENTIAL STAT 02/06/2025 10:14 AM EDT CLL (chronic lymphoid leukemia) in relapse ([facility]/HCC) LACTATE DEHYDROGENASE, PLASMA STAT 02/06/2025 10:14 AM EDT 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) COMPREHENSIVE METABOLIC PANEL, PLASMA STAT 02/06/2025 10:14 AM EDT 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) documented in this encounter Results * Lactate Dehydrogenase, Plasma (02/06/2025 10:14 AM EDT) External LDH Lactate Dehydrogenase 174 135 - 233 U/L 02/06/2025 11:22 AM EDT [facility] Blood Venous blood specimen / Unknown 02/06/2025 10:14 AM EDT 02/06/2025 10:47 AM EDT us Sima Trejo MD LAB BLOOD ORDERABLES Final Re sult [facility] [address] [place] [address], * (ABNORMAL) Comprehensive Metabolic Panel, Plasma (02/06/2025 10:14 AM EDT) External Glucose 111(H) 74 - 100 mg/dL 02/06/2025 11:09 AM EDT [facility] External BUN 20 6 - 20 mg/dL 02/06/2025 11:09 AM T [facility] External Creatinine Blood 1.50(H) 0.50 - 0.95 mg/dL 02/06/2025 11:09 AM EDT [facility] External BUN/Creat Ratio 13 10 - 20 (calc) 02/06/2025 11:09 AM T [facility] External Sodium 136 136 - 145 mmol/L 02/06/2025 11:09 AM T [facility] External Potassium 4.3 3.4 - 5.0 mmol/L 02/06/2025 11:09 AM T [facility] External Chloride 102 98 - 107 mmol/L 02/06/2025 11:09 AM T [facility] External Carbon Dioxide (CO2) 23 22 - 31 mmol/L 02/06/2025 11:09 AM T [facility] External Anion Gap (AG) 11 7 - 25 (calc) 02/06/2025 11:09 AM EDT [facility] External Calcium 9.2 8.6 - 10.2 mg/dL 02/06/2025 11:09 AM EDT [facility] External Total Protein 6.6 6.4 - 8.3 g/dL 02/06/2025 11:09 AM T [facility] External Albumin 4.3 3.5 - 5.2 g/dL 02/06/2025 11:09 AM EDT [facility] External Globulin 2.3 1.5 - 4.5 10/21/2 025 11:09 AM EDT [facility] External Albumin/Globulin Ratio 1.9 1.1 - 2.5 (calc) 02/06/2025 11:09 AM EDT [facility] External Bilirubin Total 0.5 0.1 - 1.0 mg/dL 02/06/2025 11:09 AM EDT [facility] Comment:NOTE: New reference range. External Alkaline Phosphatase 81 30 - 121 U/L 02/06/2025 11:09 AM EDT [facility] External AST (SGOT) 18 0 - 32 U/L 02/06/2025 11:09 AM EDT [facility] External ALT (SGPT) 13 0 - 33 U/L 02/06/2025 11:09 AM EDT [facility] External Estimated GFR 35(A) >=60 02/06/2025 11:09 AM EDT [facility] Comment: NOTE New calculation for GFR (CKD-EPI 2020) is formulated without race adjustment factors at the recommendation of the National Kidney Foundation and [place] Society of Nephrology. This calculation has not been validated in women. For pediatric patients refer to https://www.kidney.org/professionals/KDOQI/gfr_calculatorPed Blood Venous blood specimen / Unknown 02/06/2025 10:14 AM EDT 02/06/2025 10:46 AM EDT us Sima Trejo MD LAB BLOOD ORDERABLES Final Re sult [facility] [address] [place] [address], * (ABNORMAL) CBC and Differential (02/06/2025 10:14 AM EDT) External WBC 6.1 3.8 - 10.8 10*3/uL 02/06/2025 10:48 AM EDT [facility] External Red Blood Cell (RBC) 3.71(L) 3.80 - 5.20 10*6/uL 02/06/2025 10:48 AM EDT [facility] External Hemoglobin 11.6(L) 12.0 - 16.0 g/dL 02/06/2025 10:48 AM EDT [facility] External Hematocrit 34.4(L) 35.0 - 47.0 % 02/06/2025 10:48 AM EDT [facility] External MCV 93 80 - 100 fL 02/06/2025 10:48 AM EDT [facility] External MCH 31 26 - 35 pg 02/06/2025 10:48 AM EDT [facility] External MCHC 34 32 - 36 g/dL 02/06/2025 10:48 AM EDT [facility] External RDW 17.1(H) 11.0 - 15.0 % 02/06/2025 10:48 AM EDT [facility] External Mean Platelet Volume 7.4 6.2 - 10.5 fL 02/06/2025 10:48 AM EDT [facility] External Platelet Count (Plt) 136(L) 150 - 400 10*3/uL 02/06/2025 10:48 AM EDT [facility] External Neutrophil# 2.8 1.6 - 8.4 10*3/uL 02/06/2025 10:48 AM EDT [facility] External Lymphocyte# 2.4 0.4 - 5.1 10*3/uL 02/06/2025 10:48 AM EDT [facility] External Absolute Monocyte (Abs [place]) 0.6 0.0 - 1.2 10*3/uL 02/06/2025 10:48 AM EDT [facility] External Eosinophils# 0.2 0.0 - 0.8 10*3/uL 02/06/2025 10:48 AM EDT [facility] External Baso# 0.1 0.0 - 0.3 10*3/uL 02/06/2025 10:48 AM EDT [facility] External Neutrophils % 46.4 42.0 - 78.0 % 02/06/2025 10:48 AM EDT [facility] External Lymphocyte % 39.1 11.0 - 47.0 % 02/06/2025 10:48 AM EDT [facility] External Monocyte % 10.3 0.0 - 11.0 % 02/06/2025 10:48 AM EDT [facility] External Eosinophil% 3.3 0.0 - 7.0 % 02/06/2025 10:48 AM EDT [facility] External Basophil % 0.9 0.0 - 3.0 % 02/06/2025 10:48 AM EDT [facility] External Nucleated RBC%-Auto 0.1 0.0 - 0.9 % 02/06/2025 10:48 AM EDT [facility] External Nucleated RBC Absolute 0.01 Not Estab. 10*3/uL 02/06/2025 10:48 AM EDT [facility] Blood Venous blood specimen / Unknown 02/06/2025 10:14 AM EDT 02/06/2025 10:43 AM EDT us Sima Trejo MD LAB BLOOD ORDERABLES Final Re sult [facility] [address] [place] [address], documented in this encounter Visit Diagnoses Diagnosis 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/[facility]) Chronic lymphoid leukemia, in relapse documented in this encounter Additional Health Concerns Assessment Noted Time PHQ-9 Depression Total Score: 5 11/15/19 25 9:00 AM EDT A fall risk assessment has been complete d for the patient 08/08/2024 2:12 PM EDT documented as of this encounter Care Teams Senior Java Data Architect Relationship Specialty Start Date End Date Oren Pressley MD [address] [place] [address] PCP - General Internal Medicine 02/09/23 Sima Trejo MD [address] [phone] Medical Oncologist Hematology and Oncology 08/02/23 documented as of this encounter
--- OUTSIDE RECORDS SUMMARY | 2025-03-13 10:35 | XMS_ITS | Clinical Summary ---
Author Organization [employer] ([place], [place], [place], [place], [place]) Address [address] [place] [address] Care Team Providers Care Drawing In Hand Name Role Phone Oren Pressley MD Primary Care Provider [phone] Allergies No known active allergies Medications clonazePAM [...] Date [place] Speak language other than Tamazight at home Not on file 04/30/2023 Want [...] Additional history exists Influenza Vaccine (#1) 2024 3, 01/01/2022, 01/10/2020, Additional history exists Insurance [place] [id number] MEDICARE PART A B Care Teams Drawing In Hand Relationship Specialty Start Date End Date Oren Pressley MD [address] [place] [address] [place] [address] PCP - General Adolescent Medicine 05/17/23
--- OUTSIDE RECORDS SUMMARY | 2025-03-13 10:36 | XMS_ITS | Encounter Summary ---
Author Organization Healthcare Address [address] [place] [address] Care Team Providers Care Landscape Gardener Name Role Phone Oren Pressley MD Primary Care Provider [phone] Sima Trejo MD Unavailable [phone] Encounter Details Date Type Department Care Team (Late st Contact Info) Description 01/30/2025 Orders Only [facility] at [facility] [address] [place] [address] Sima Trejo MD [address] [place] [phone] Social History Tobacco Use Types Packs/Day [...] Description 04/05/2025 7:45 AM EST Office Visit [facility] at [facility] [address] [place] [phone] 04/05/2025 8:15 AM EST Office Visit [facility] [address] [place] [address] Sima Trejo MD [address] [phone] 04/05/2025 8:30 AM EST Infusion [facility] [address] [place] [phone] documented as of this encounter Procedures Procedure Name Priority Date/Time Associated Diagnosis Comments CT SOFT TISSUE NECK W IV CONTRAST Routine 01/30/2025 2:[address] CHEST W IV CONTRAST Routine 01/30/2025 2:[address] ABDOMEN PELVIS W IV CONTRAST Routine 01/30/2025 1:58 PM EDT documented in this encounter Results * CT Soft Tissue Neck w IV [...] MD IMG CT PROCEDURES Final Resul t documented in this encounter Visit Diagnoses Not on filedocumented in this encounter Additional Health Concerns Assessment Noted Time PHQ-9 Depression Total Score: 5 11/15/19 25 9:00 AM EDT A fall risk assessment has been complete d for the patient 08/08/2024 2:12 PM EDT documented as of this encounter Care Teams Landscape Gardener Relationship Specialty Start Date End Date Oren Pressley MD [address] [place] [address] PCP - General Internal Medicine 02/09/23 Sima Trejo MD [address] [phone] Medical Oncologist Hematology and Oncology 08/02/23 documented as of this encounter
--- OUTSIDE RECORDS SUMMARY | 2025-03-13 10:36 | XMS_ITS | Encounter Summary ---
Author Organization Healthcare Address [address] [place] [address] Care Team Providers Care Configuration Developer Name Role Phone Oren Pressley MD Primary Care Provider [phone] Sima Trejo MD Unavailable [phone] Encounter Details Date Type Department Care Team (Latest Contact Info) Description 02/06/2025 Travel Social History Tobacco Use Types Packs/Day [...] Upcoming Encounters Date Type Department Care Team ( Contact Info) Description 04/05/2025 7:45 AM EST Office Visit [facility] at [address] [place] [address] 04/05/2025 8:15 AM EST Office Visit [facility] [place] [address] Sima Trejo MD [address] [place] [phone] 04/05/2025 8:30 AM EST Infusion [facility] at [address] [place] [address] documented as of this encounter Visit Diagnoses Not on filedocumented in this encounter Additional Health Concerns Assessment Noted Time PHQ-9 Depression Total Score: 5 11/15/19 25 9:00 AM EDT A fall risk assessment has been complete d for the patient 08/08/2024 2:12 PM EDT documented as of this encounter Care Teams Configuration Developer Relationship Specialty Start Date End Date Oren Pressley MD [address] [place] [address] PCP - General Internal Medicine 02/09/23 Sima Trejo MD [address] [address] [address] Medical Oncologist Hematology and Oncology 08/02/23 documented as of this encounter
--- OUTSIDE RECORDS SUMMARY | 2025-03-13 10:36 | XMS_ITS | Encounter Summary ---
Author Organization Healthcare Address [address] [place] [address] Care Team Providers Care Bandsaw Operator Name Role Phone Oren Pressley MD Primary Care Provider [phone] Sima Trejo MD Unavailable [phone] Reason for Visit * Reason Comments Social Work/navigation Follow-up Encounter Details Date Type Department Care Team (Late st Contact Info) Description 02/06/2025 Social Work [facility] at [address] [phone] Deena Newton Social History Tobacco Use Types Packs/Day Years [...] Hamm, RN documented as of this encounter Miscellaneous Notes * Clinician Note - Deena Newton - 02/06/2025 2:31 PM EDT MANAGER METAL student met with patient in infusion room to confirm receipt of Blood Cancer [employer] check, which patient affirmed. Patient expressed attempts to contact financial navigator and MANAGER METAL student provided patient with phone number to ensure she is calling the right number. Patient denied any other practical concerns or barriers to care. MANAGER METAL student reiterated ongoing availability of [facility] support services and patient indicated willingness to contact if needed. Deena Newton MANAGER METAL student Cosigned by Jo Helms LCSW at 02/06/2025 2:49 PM EDT Associated attestation - Jo Helms LCSW - 02/06/2025 2:49 PM EDT SANDEEP Cavanaugh LCSW [facility] [place] [facility] Psych Oncology Services [phone] documented in this encounter Plan of Treatment Upcoming Encounters Date Type Department Care Team (Late st Contact Info) Description 04/05/2025 7:45 AM EST Office Visit [facility] at [address] [place] [address] 04/05/2025 8:15 AM EST Office Visit [facility] at [address] [phone] [place] [address] [place] [phone] 04/05/2025 8:30 AM EST Infusion [facility] at [address] [place] [address] documented as of this encounter Visit Diagnoses Not on filedocumented in this encounter Additional Health Concerns Assessment Noted Time PHQ-9 Depression Total Score: 5 11/15/19 25 9:00 AM EDT A fall risk assessment has been complete d for the patient 08/08/2024 2:12 PM EDT documented as of this encounter Care Teams Bandsaw Operator Relationship Specialty Start Date End Date Oren Pressley MD [address] [place] [address] PCP - General Internal Medicine 02/09/23 Sima Trejo MD [address] [phone] Medical Oncologist Hematology and Oncology 08/02/23 documented as of this encounter
--- OUTSIDE RECORDS SUMMARY | 2025-03-13 10:36 | XMS_ITS | Encounter Summary ---
Author Organization Healthcare Address [address] 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); History of non-Hodgkin's lymphoma; Lung nodule Social History Tobacco Use Types [...] Author No Risk Indicated 03/06/2025 4:00 PM Isabelle Gamble RN * Question Answer Date of Assessment [...] Description 04/05/2025 7:45 AM EST Office Visit [facility] at [facility] [address] [place] [phone] 04/05/2025 8:15 AM EST Office Visit [facility] at [facility] [address] [place] [address] Sima Trejo MD [address] [phone] 04/05/2025 8:30 AM EST Infusion [facility] at [facility] [address] [place] [address] documented as of this encounter Procedures Procedure Name Priority Date/Time Associated Diagnosis Comments CBC WITH AUTO DIFFERENTIAL STAT 03/06/2025 10:55 AM EST 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) URIC ACID, PLASMA STAT 03/06/2025 10: 55 [...] (CMS/HCC) documented in this encounter Results * Uric Acid, Plasma (03/06/2025 10:55 AM EST) External Uric Acid 5.1 2.4 - 6.8 mg/dL 03/06/2025 11:48 AM EST [facility] Comment: Reference ranges are based on population norms and do not necessarily correlate with treatment targets. In patients with an established diagnosis of gout undergoing Urate Lowering Therapy (ULT), the 2012 [place] [employer] Guidelines for Management of Gout recommend a target uric acid level of < 6 mg/dL in all patients, or lower in certain circumstances. Arthritis Care and Research Vol 64 No 10, 2011 [place] [employer] Blood Venous blood specimen / Unknown 03/06/2025 10:55 AM EST 03/06/2025 11:16 AM EST Sima Trejo MD LAB BLOOD ORDERABLES Final Re sult Performing Organization Address City/[facility]/ZIP Co de Phone Number [facility] [address] [place] [address], * Lactate Dehydrogenase, Plasma (03/06/2025 10:55 AM EST) External LDH Lactate Dehydrogenase 170 135 - 233 U/L 03/06/2025 12:02 PM EST [facility] Blood Venous blood specimen / Unknown 03/06/2025 10:55 AM EST 03/06/2025 11:31 AM EST Sima Trejo MD LAB BLOOD ORDERABLES Final Re sult Performing Organization Address [facility]/ZIP Co de Phone Number [facility] [address] [place] [address], [place] [phone] * (ABNORMAL) Comprehensive metabolic panel (03/06/2025 10:55 AM EST) External Glucose 111(H) 74 - 100 mg/dL 03/06/2025 11:48 AM [facility] External BUN 14 6 - 20 mg/dL 03/06/2025 11:48 AM [facility] External Creatinine Blood 1.40(H) 0.50 - 0.95 mg/dL 03/06/2025 11:48 AM [facility] External BUN/Creat Ratio 10 10 - 20 (calc) 03/06/2025 11:48 AM [facility] External Sodium 136 136 - 145 mmol/L 03/06/2025 11:48 AM [facility] External Potassium 4.6 3.4 - 5.0 mmol/L 03/06/2025 11:48 AM [facility] External Chloride 102 98 - 107 mmol/L 03/06/2025 11:48 AM [facility] External Carbon Dioxide (CO2) 23 22 - 31 mmol/L 03/06/2025 11:48 AM [facility] External Anion Gap (AG) 11 7 - 25 (calc) 03/06/2025 11:48 AM [facility] External Calcium 9.2 8.6 - 10.2 mg/dL 03/06/2025 11:48 AM [facility] External Total Protein 6.3(L) 6.4 - 8.3 g/dL 03/06/2025 11:48 AM [facility] External Albumin 4.1 3.5 - 5.2 g/dL 03/06/2025 11:48 AM [facility] External Globulin 2.2 1.5 - 4.5 025 11:48 AM [facility] External Albumin/Globulin Ratio 1.9 1.1 - 2.5 (calc) 03/06/2025 11:48 AM [facility] External Bilirubin Total 0.4 0.1 - 1.0 mg/dL 03/06/2025 11:48 AM [facility] Comment:NOTE: New reference range. External Alkaline Phosphatase 69 30 - 121 U/L 03/06/2025 11:48 AM [facility] External AST (SGOT) 19 0 - 32 U/L 03/06/2025 11:48 AM [facility] External ALT (SGPT) 14 0 - 33 U/L 03/06/2025 11:48 AM EST [facility] External Estimated GFR 38(A) >=60 03/06/2025 11:48 AM EST [facility] Comment: NOTE New calculation for GFR (CKD-EPI 2020) is formulated without race adjustment factors at the recommendation of the National Kidney Foundation and [place] [employer] Nephrology. This calculation has not been validated in women. For pediatric patients refer to https://www.kidney.org/professionals/KDOQI/gfr_calculatorPed Blood Venous blood specimen / Unknown 03/06/2025 10:55 AM EST 03/06/2025 11:16 AM EST us Sima Trejo MD LAB BLOOD ORDERABLES Final Re sult [facility] [address] [place] [address], * (ABNORMAL) CBC and differential (03/06/2025 10:55 AM EST) External WBC 5.1 3.8 - 10.8 10*3/uL 03/06/2025 11:36 AM EST [facility] External Red Blood Cell (RBC) 3.56(L) 3.80 - 5.20 10*6/uL 03/06/2025 11:36 AM EST [facility] External Hemoglobin 11.4(L) 12.0 - 16.0 g/dL 03/06/2025 11:36 AM EST [facility] External Hematocrit 33.7(L) 35.0 - 47.0 % 03/06/2025 11:36 AM EST [facility] External MCV 95 80 - 100 fL 03/06/2025 11:36 AM EST [facility] External MCH 32 26 - 35 pg 03/06/2025 11:36 AM EST [facility] External MCHC 34 32 - 36 g/dL 03/06/2025 11:36 AM EST [facility] External RDW 16.3(H) 11.0 - 15.0 % 03/06/2025 11:36 AM EST [facility] External Mean Platelet Volume 7.8 6.2 - 10.5 fL 03/06/2025 11:36 AM EST [facility] External Platelet Count (Plt) 120(L) 150 - 400 10*3/uL 03/06/2025 11:36 AM EST [facility] External Neutrophil# 2.5 1.6 - 8.4 10*3/uL 03/06/2025 11:36 AM EST [facility] External Lymphocyte# 1.9 0.4 - 5.1 10*3/uL 03/06/2025 11:36 AM EST [facility] External Absolute Monocyte (Abs [place]) 0.5 0.0 - 1.2 10*3/uL 03/06/2025 11:36 AM EST [facility] External Eosinophils# 0.2 0.0 - 0.8 10*3/uL 03/06/2025 11:36 AM EST [facility] External Baso# 0.1 0.0 - 0.3 10*3/uL 03/06/2025 11:36 AM EST [facility] External Neutrophils % 48.7 42.0 - 78.0 % 03/06/2025 11:36 AM EST [facility] External Lymphocyte % 37.0 11.0 - 47.0 % 03/06/2025 11:36 AM EST [facility] External Monocyte % 9.9 0.0 - 11.0 % 03/06/2025 11:36 AM [facility] External Eosinophil% 3.4 0.0 - 7.0 % 03/06/2025 11:36 AM EST [facility] External Basophil % 1.0 0.0 - 3.0 % 03/06/2025 11:36 AM [facility] External Nucleated RBC%-Auto 0.3 0.0 - 0.9 % 03/06/2025 11:36 AM EST [facility] External Nucleated RBC Absolute 0.02 Not Estab. 10*3/uL 03/06/2025 11:36 AM [facility] Blood Venous blood specimen / Unknown 03/06/2025 10:55 AM EST 03/06/2025 11:17 AM EST us Sima Trejo MD LAB BLOOD ORDERABLES Final Re sult [facility] [address] [place] [address], documented in this encounter Visit Diagnoses Diagnosis 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) Chronic lymphoid leukemia, in relapse History of non-Hodgkin's lymphoma Personal history of other lymphatic and hematopoietic neoplasm Lung nodule Other diseases of lung, not elsewhere classified documented in this encounter Additional Health Concerns Assessment Noted Time PHQ-9 Depression Total Score: 5 11/15/19 25 9:00 AM EDT A fall risk assessment has been complete d for the patient 08/08/2024 2:12 PM EDT documented as of this encounter Care Teams Embedded Linux Developer Relationship Specialty Start Date End Date Oren Pressley MD [address] [facility] [address] [place] [address] PCP - General Internal Medicine 02/09/23 Sima Trejo MD [address] [address] Medical Oncologist Hematology and Oncology 08/02/23 documented as of this encounter
--- OUTSIDE RECORDS SUMMARY | 2025-03-13 10:36 | XMS_ITS | Encounter Summary ---
Author Organization Healthcare Address [address] [place] [address] Care Team Providers Care Bridge Construction Inspector Name Role Phone Oren Pressley MD Primary Care Provider [phone] Sima Trejo MD Unavailable [phone] Encounter Details Date Type Department Care Team (Latest Contact Info) Description 03/06/2025 Travel Social History Tobacco Use Types Packs/Day [...] (Past 1 Month) No 03/06/2025 4:00 PM Isabelle Gamble RN 2. Non-Specific Active Suici rachana Thoughts (Past 1 Month) No 03/06/2025 4:00 PM French Gamble RN 6. Suicidal Behavior (Lifetime) No 4:00 PM Isabelle Gamble RN documented as of this encounter Plan of Treatment Upcoming Encounters Date Type Department Care Team ( Contact Info) Description 04/05/2025 7:45 AM EST Office Visit [facility] [address] [place] [address] 04/05/2025 8:15 AM EST Office Visit [facility] [address] [place] [address] [place] [address] [place] [phone] 04/05/2025 8:30 AM EST Infusion [facility] at [address] [place] [address] documented as of this encounter Visit Diagnoses Not on filedocumented in this encounter Additional Health Concerns Assessment Noted Time PHQ-9 Depression Total Score: 5 11/15/19 25 9:00 AM EDT A fall risk assessment has been complete d for the patient 08/08/2024 2:12 PM EDT documented as of this encounter Care Teams Bridge Construction Inspector Relationship Specialty Start Date End Date Oren Pressley MD [address] [place] [address] PCP - General Internal Medicine 02/09/23 Sima Trejo MD [address] [address] Medical Oncologist Hematology and Oncology 08/02/23 documented as of this encounter
--- OUTSIDE RECORDS SUMMARY | 2025-03-13 10:36 | XMS_ITS ---
Author Organization [facility] Address [address] [place] [address] Care Team Providers Care Ship Superintendent Name Role Phone Oren Pressley MD Primary Care Provider [phone] Sima Trejo MD Unavailable [phone] Active Problems Problem Noted Date Diagnosed Date CLL (chronic lymphoid leukemia) in relapse 11/07 Tongue mass 01/12/2023 Current Treatment and Therapy Plans Bendamustine Day 1 only / riTUXimab Standard Dose Every 28 Days* Plan Start Date:11/13/2024 Plan Provider:Sima Trejo MD Linked Problems CLL (chronic lymphoid leukem ia) in relapse (CMS/HCC) Treatment Medications Current Day (Day 1, Cycle 6 - Planned for 04/03/2025) Vivimusta (Vivimusta) bendamustine (Cheyanne musta) 97.5 mg in sodium chloride 0.9 % 250 mL chemo IVPB Line Care (Peripheral)* Plan Start Date:11/14/2024 Plan Provider:Sima Trejo MD Linked Problems CLL (chronic lymphoid leukem ia) in relapse (CMS/HCC) Treatment Medications No medications scheduled. Past Treatment and Therapy Plans No past plan information found.
--- OUTSIDE RECORDS SUMMARY | 2025-03-13 10:37 | XMS_ITS | Encounter Summary ---
Author Organization Healthcare Address [address] [place] [address] Care Team Providers Care Chronic Care Nurse Name Role Phone Pcp, No Primary Care Provider Oren Hull MD Primary Care Provider [phone] Sima Trejo MD Unavailable [phone] Encounter Details Date Type Department Care Team (Late st Contact Info) Description 08/04/2021 Orders Only [facility] [address] [address] Sima Trejo MD [address] [address] Social History Tobacco Use Types [...] Description 04/05/2025 7:45 AM EST Office Visit [facility] at [facility] [address] [place] [address] 04/05/2025 8:15 AM EST Office Visit [facility] at [facility] [address] [place] [address] Sima Trejo MD [address] [address] 04/05/2025 8:30 AM EST Infusion [facility] [place] [address] documented as of this encounter Procedures Procedure Name Priority Date/Time Associated Diagnosis Comments CBC WITH AUTO DIFFERENTIAL Routine 08/04/2021 12:43 PM EDT documented in this encounter Results * (ABNORMAL) CBC and Differential (08/04/2021 12:43 PM EDT) External WBC 6.0 3.8 - 10.8 K/uL [facility] External Red Blood Cell (RBC) 3.89 3.80 - 5.20 M/uL [facility] External Hemoglobin 11.9(L) 12.0 - 16.0 G/DL [facility] External Hematocrit 36.0 35.0 - 47.0 % [facility] External MCV 93 80 - [address] [facility] External MCH 31 26 - 35 PG [facility] External MCHC 33 32 - 36 G/DL [facility] External RDW 15.0 11.0 - 15.0 % [facility] External Mean Platelet Volume 7.1 6.2 - 10.[address] [facility] External Platelets 131 130 - 400 K/uL [facility] External Neutrophil# 4.0 1.6 - 8.4 K/uL [facility] External Lymphocyte# 1.3 0.4 - 5.1 K/uL [facility] External Absolute Monocyte (Abs [place]) 0.4 0.0 - 1.2 K/uL [facility] External Eosinophils# 0.1 0.0 - 0.8 K/uL [facility] External Baso# 0.0 0.0 - 0.3 K/uL [facility] External Neutrophils % 68.0 42.0 - 78.0 % [facility] External Lymphocyte % 21.8 11.0 - 47.0 % [facility] External Monocyte % 7.3 0.0 - 11.0 % [facility] External Eosinophil% 2.1 0.0 - 7.0 % [facility] External Basophil % 0.8 0.0 - 3.0 % [facility] External Nucleated RBC%-Auto 0.1 0.0 - 0.9 % [facility] External Nucleated RBC Absolute 0.01 Not Estab. K/uL [facility] 08/04/2021 12:4 3 PM EDT 08/04/2021 1:08 PM EDT us Sima Trejo MD LAB BLOOD ORDERABLES Final Re sult [facility] [address] [place] [address], documented in this encounter Visit Diagnoses Not on filedocumented in this encounter Care Teams Chronic Care Nurse Relationship Specialty Start Date End Date Pcp, No [address] [place] [address] PCP - General 12/02/20 02/08/23 Oren Pressley MD [address] [place] [address] PCP - General Internal Medicine 02/09/23 Sima Trejo MD [address] [address] Medical Oncologist Hematology and Oncology 08/02/23 documented as of this encounter
--- OUTSIDE RECORDS SUMMARY | 2025-03-13 10:37 | XMS_ITS | Encounter Summary ---
Author Organization Healthcare Address [address] [place] [address] Care Team Providers Care Back End Web Developer Name Role Phone Pcp, No Primary Care Provider Oren Hull MD Primary Care Provider Sima Trejo MD Unavailable [phone] Encounter Details Date Type Department Care Team (Late st Contact Info) Description 06/02/[address] [facility] [address] [facility] [place] [address] Sima Trejo MD [address] [address] Social History Tobacco Use Types [...] AM EST Office Visit [facility] [address] [place] [address] 04/05/2025 8:15 AM EST Office Visit [facility] [address] [place] [address] Sima Trejo MD [address] [address] 04/05/2025 8:30 AM EST Infusion [facility] [address] [place] [address] documented as of this encounter Procedures Procedure Name Priority Date/Time Associated Diagnosis Comments LACTATE DEHYDROGENASE, PLASMA Routine 06/02/2021 12:06 PM EST documented in this encounter Results * Lactate Dehydrogenase, Plasma (06/02/2021 12:06 PM EST) External LDH Lactate Dehydrogenase 173 135 - 233 U/L [facility] 06/02/2021 12:0 6 PM EST 06/02/2021 12:41 PM EST us Sima Trejo MD LAB BLOOD ORDERABLES Final Re sult [facility] [address] [place] [address], documented in this encounter Visit Diagnoses Not on filedocumented in this encounter Care Teams Back End Web Developer Relationship Specialty Start Date End Date Pcp, No [address] [place] [address] PCP - General 12/02/20 02/08/23 Oren Pressley MD [address] [place] [address] PCP - General Internal Medicine 02/09/23 Sima Trejo MD [address] [address] Medical Oncologist Hematology and Oncology 08/02/23 documented as of this encounter
--- OUTSIDE RECORDS SUMMARY | 2025-03-13 10:37 | XMS_ITS | Encounter Summary ---
Author Organization [employer] ([place], [place], [place], [place], [place]) Address [address] [place] [address] Care Team Providers Care Continuity Person Name Role Phone Oren Corbin MD Primary Care Provider [phone] Encounter Details Date Type Department Care Team (Late st Contact Info) Description 05/16/2018 Transcribed Document [facility] [place] [address] [place] [address] ProviderLaurel MD [address] [place] [address] Social History Tobacco Use Types Packs/Day Years Used Date Smoking Tobacco: Never Assessed Comments Unknown Sex and Gender Information Value Date Recorded Sex Assigned at Not on file Legal Sex Female 4:44 PM CDT Gender Identity Not on file Sexual Orientation Not on file documented as of this encounter Miscellaneous Notes * Cerner Conversion Note - Laurel ProviderMD - 05/16/2018 10:30 AM SPEEDOMETER INSPECTOR [address] , [place] [address] Patient Copy Patient Information: Name: [facility] Current Date: 05/16/2018 10:30:23 : 1945 Patient [place]: [place] [address] Patient Attending Physician: TAMIKO NIETO MD-DMITRY Primary Care Provider: OREN CORBIN (REF)DELILAH Primary Care Provider Discharge Diagnosis: Atrial fibrillation Weight on Admission: 230 lb, 0 oz Comment: Follow-up Instructions: With: Address: When: GIOVANNI SHAH [email or web address], SE[facility] CARDIOLOG[facility] [place] [id number] Business (1) Within 1 month Discharge Instructions: [...] you are awake and alert. ??? Take qrdl-law-qtwenos and prescription medicines only as told by [...] 01/24/2014 Document Revised: 09/07/2016 Document Reviewed: 07/25/2016 Why Not Give Back Interactive Patient Education ? 2017 [employer] Electrical Cardioversion, Care After This sheet [...] to help you relax (sedative). ??? Take rfpl-gic-ginxppt and prescription medicines only as told by [...] 01/24/2014 Document Revised: 11/06/2016 Document Reviewed: 10/09/2016 Why Not Give Back Interactive Patient Education ? 2017 [employer]. Medication Leaflets: amiodarone (oral) (A mi [place] [...] products. Avoid taking an herbal supplement containing Orrum's wort. Amiodarone could make you sunburn more [...] may report side effects to FDA at 7-949-FJL-1652. What other drugs will affect amiodarone? Sometimes [...] can affect amiodarone. This includes prescription and idec-rsf-kmchesl medicines, vitamins, and herbal products. Not all [...] to ensure that the information provided by [employer] ('[employer]') is accurate, up-to-date, and complete, but no guarantee is made to that effect. Drug information contained herein may be time sensitive. [employer] information has been compiled for use by healthcare practitioners and consumers in the [place] and therefore [employer] does not warrant that uses outside of the [place] are appropriate, unless specifically indicated otherwise. [employer]'s drug information does not endorse drugs, diagnose patients or recommend therapy. [employer] drug information is an informational resource designed [...] effective or appropriate for any given patient. [employer] does not assume any responsibility for any aspect of healthcare administered with the aid of information [employer] provides. The information contained herein is not intended to cover all possible uses, directions, precautions, warnings, drug interactions, allergic reactions, or adverse effects. If you have questions about the drugs you are taking, check with your doctor, nurse or pharmacist. Copyright 5251-8256 [employer] Version: 7.01. Revision Date: 02/22/2018. CIGARETTE SMOKING: The facts are clear, cigarette smoking will shorten your life. Smoking can cause many illnesses along the way. As a healthcare provider, we recommend that you stop smoking. Assistance with quitting is available by contacting 3-040-YYSA-NOW. This is a free resource providing counseling, [...] Be sure to sign up for the [employer] patient portal, which gives you 09/11 access to your medical information ??? including these discharge instructions ??? using your computer, smartphone, or tablet. Just go to [employer]sect to get started. Questions? Call . [facility] would like to thank you for allowing us to assist you with your healthcare needs. CARL Hopson PRISCILLA SMI, (or eligibility services representative) have received the above patient education materials/instructions and have verbalized understanding: Patient Signature _ Date/Time Patient Mica Spreader Signature (if needed) Date/Time Clinician/Hospital Mica Spreader Signature (if needed) Date/Time Electronically signed by Interface, [facility] Conversion Belt Loop Machine Operator Cerner at 08/07/2022 2:22 PM CDT documented in this encounter Plan of Treatment Not on file documented as of this encounter Visit Diagnoses Not on filedocumented in this encounter Care Teams Continuity Person Relationship Specialty Start Date End Date Oren Corbin MD [address] [place] [address] PCP - General Adolescent Medicine 05/17/23 documented as of this encounter
--- OUTSIDE RECORDS SUMMARY | 2025-03-13 10:37 | XMS_ITS | Encounter Summary ---
Author Organization [employer] ([place], [place], [place], [place], [place]) Address [address] [place] [address] Care Team Providers Care Law Enforcement Officer Name Role Phone Oren Pressley MD Primary Care Provider [phone] Encounter Details Date Type Department Care Team (Late st Contact Info) Description 05/16/2018 Transcribed Document [facility] [place] [facility] [place] [address] ProviderLaurel MD [address] [place] [address] Social History Tobacco Use Types Packs/Day Years Used Date Smoking Tobacco: Never Assessed Comments Unknown Sex and Gender Information Value Date Recorded Sex Assigned at Not on file Legal Sex Female 4:44 PM CDT Gender Identity Not on file Sexual Orientation Not on file documented as of this encounter Miscellaneous Notes * Cerner Conversion Note - Historical ProviderMD - 05/16/2018 10:29 AM CORN CROP SUPERVISOR Discharge Instructions Entered On: 05/16/2018 10:30 EST [...] - 05/16/2018 10:29 EST Electronically signed by [facility] Conversion Stove Tender Cerner at 08/07/2022 2:29 PM CDT documented in this encounter Plan of Treatment Not on file documented as of this encounter Visit Diagnoses Not on filedocumented in this encounter Care Teams Law Enforcement Officer Relationship Specialty Start Date End Date Oren Pressley MD [address] [place] [address] PCP - General Adolescent Medicine 05/17/23 documented as of this encounter
--- OUTSIDE RECORDS SUMMARY | 2025-03-13 10:37 | XMS_ITS | Encounter Summary ---
Author Organization Healthcare Address [address] [place] [address] Care Team Providers Care Toxicology Supervisor Name Role Phone Pcp, No Primary Care Provider Oren Hull MD Primary Care Provider [phone] Sima Trejo MD Unavailable [phone] Encounter Details Date Type Department Care Team (Late st Contact Info) Description 02/17/2022 Orders Only [facility] [address] [place] [address] Sima Trejo MD [address] [address] Social History Tobacco Use [...] Description 04/05/2025 7:45 AM EST Office Visit [facility] [address] [place] [address] 04/05/2025 8:15 AM EST Office Visit [facility] [address] [place] [address] Sima Trejo MD [address] [address] 04/05/2025 8:30 AM EST Infusion [facility] [address] [place] [address] documented as of this encounter Procedures Procedure Name Priority Date/Time Associated Diagnosis Comments LACTATE DEHYDROGENASE, PLASMA Routine 02/17/2022 12:42 PM EDT documented in this encounter Results * Lactate Dehydrogenase, Plasma (02/17/2022 12:42 PM EDT) External LDH Lactate Dehydrogenase 163 135 - 233 U/L [facility] 02/17/2022 12:4 2 PM EDT 02/17/2022 12:54 PM EDT us Sima Trejo MD LAB BLOOD ORDERABLES Final Re sult Performing Organization Address City/State/[facility] Co de Phone Number [facility] [address] [place] [address], documented in this encounter Visit Diagnoses Not on filedocumented in this encounter Care Teams Toxicology Supervisor Relationship Specialty Start Date End Date Pcp, No [address] [place] [address] PCP - General 12/02/20 02/08/23 Oren Pressley MD [address] [place] [address] PCP - General Internal Medicine 02/09/23 Sima Trejo MD [address] [address] Medical Oncologist Hematology and Oncology 08/02/23 documented as of this encounter
--- OUTSIDE RECORDS SUMMARY | 2025-03-13 10:37 | XMS_ITS | Encounter Summary ---
Author Organization Healthcare Address [address] [place] [address] Care Team Providers Care Rope Silica Machine Operator Name Role Phone Oren Pressley MD Primary Care Provider Sima Trejo MD Unavailable [phone] Encounter Details Date Type Department Care Team (Late st Contact Info) Description 01/09/2025 Orders Only [facility] [address] [place] [address] Sima Trejo MD [address] [address] Social History Tobacco Use Types [...] No 01/09/2025 12:00 PM EDT Telma Stanton FAHAD 2. Non-Specific Active Suicidal Thoughts (Past 1 Month) No 01/09/2025 12:00 PM EDT Telma Stanton RN 6. Suicidal Behavior (Lifetime) No 01/09/2025 12:00 PM EDT Telma Stanton, RN documented as of this encounter Plan of Treatment Upcoming Encounters Date Type Department Care Team (Late st Contact Info) Description 04/05/2025 7:45 AM EST Office Visit [facility] at [address] [address] 04/05/2025 8:15 AM EST Office Visit [facility] at [address] [address] [place] [address] [place] [address] 04/05/2025 8:30 AM EST Infusion [facility] at [address] [address] documented as of this encounter Procedures Procedure [...] ORDERABLES Final Re sult Performing Organization Address City/State/[facility] Co de Phone Number [facility] [address] [place] [address], documented in this encounter Visit Diagnoses Not on filedocumented in this encounter Additional Health Concerns Assessment Noted Time PHQ-9 Depression Total Score: 5 11/15/19 25 9:00 AM EDT A fall risk assessment has been complete d for the patient 08/08/2024 2:12 PM EDT documented as of this encounter Care Teams Rope Silica Machine Operator Relationship Specialty Start Date End Date Oren Pressley MD [address] [place] [address] PCP - General Internal Medicine 02/09/23 Sima Trejo MD [address] [address] Medical Oncologist Hematology and Oncology 08/02/23 documented as of this encounter
--- OUTSIDE RECORDS SUMMARY | 2025-03-13 10:37 | XMS_ITS | Encounter Summary ---
Author Organization [employer] ([place], [place], [place], [place], [place]) Address [address] [place] [address] Care Team Providers Care Leather Sprayer Name Role Phone Oren Pressley MD Primary Care Provider [phone] Encounter Details Date Type Department Care Team (Late st Contact Info) Description 05/16/2018 Transcribed Document [facility] [place] [address] ProviderLaurel MD [address] [place] [id number] Social History Tobacco Use Types Packs/Day Years Used Date Smoking Tobacco: Never Assessed Comments Unknown Sex and Gender Information Value Date Recorded Sex Assigned at Not on file Legal Sex Female 4:44 PM CDT Gender Identity Not on file Sexual Orientation Not on file documented as of this encounter Miscellaneous Notes * Cerner Conversion Note - Historical ProviderMD - 05/16/2018 10:15 AM TAKER OFF Event Note Entered On: 05/16/2018 10:25 EST Performed On: 05/16/2018 10:15 EST by KASSIDY SAWYER RN Event Note Event Date/Time : 05/16/2018 10:15 EST Description of Event : Return from procedure lab per stretcher awake and alert, skin w/d, no c/o, family here at bedside. Food and drink ordered. KASSIDY SAWYER RN - 05/16/2018 10:25 EST documented in this encounter Plan of Treatment Not on file documented as of this encounter Visit Diagnoses Not on filedocumented in this encounter Care Teams Leather Sprayer Relationship Specialty Start Date End Date Oern Pressley MD [address] [place] [address] PCP - General Adolescent Medicine 05/17/23 documented as of this encounter
--- OUTSIDE RECORDS SUMMARY | 2025-03-13 10:37 | XMS_ITS | Encounter Summary ---
Author Organization Healthcare Address [address] [place] [address] Care Team Providers Care Rough Rib Grader Name Role Phone Pcp, No Primary Care Provider Oren Hull MD Primary Care Provider [phone] Sima Trejo MD Unavailable [phone] Encounter Details Date Type Department Care Team (Late st Contact Info) Description 05/26/2022 Orders Only [facility] [address] [place] [address] Sima Trejo MD [address] [address] Social History Tobacco Use Types [...] Office Visit [facility] [address] [place] [address] 04/05/2025 8:15 AM EST Office Visit [facility] [address] [place] [address] Sima Trejo MD [address] [address] 04/05/2025 8:30 AM EST Infusion [facility] [address] [place] [address] documented as of this encounter Procedures Procedure Name Priority Date/Time Associated Diagnosis Comments LACTATE DEHYDROGENASE, PLASMA Routine 05/26/2022 1:07 PM EST documented in this encounter Results * Lactate Dehydrogenase, Plasma (05/26/2022 1:07 PM EST) External LDH Lactate Dehydrogenase 155 135 - 233 U/L [facility] 05/26/2022 1:07 PM EST 05/26/2022 1:19 PM EST us Sima Trejo MD LAB BLOOD ORDERABLES Final Re sult [facility] [address] [place] [address], documented in this encounter Visit Diagnoses Not on filedocumented in this encounter Care Teams Rough Rib Grader Relationship Specialty Start Date End Date Pcp, No [address] [place] [address] PCP - General 12/02/20 02/08/23 Oren Pressley MD [address] [place] [address] PCP - General Internal Medicine 02/09/23 Sima Trejo MD [address] [address] Medical Oncologist Hematology and Oncology 08/02/23 documented as of this encounter
--- OUTSIDE RECORDS SUMMARY | 2025-03-13 10:37 | XMS_ITS | Encounter Summary ---
Author Organization [employer] ([place], [place], [place], [place], [place]) Address [address] [place] [address] Care Team Providers Care Flying Teacher Name Role Phone Oren Pressley MD Primary Care Provider + [phone] Encounter Details Date Type Department Care Team (Late st Contact Info) Description 06/22/2019 Transcribed Document [facility] Family [facility] [place] [place] [address] ProviderLaurel MD [address] [place] [address] [id number] Social History Tobacco Use Types Packs/Day Years Used Date Smoking Tobacco: Never Assessed Comments Unknown Sex and Gender Information Value Date Recorded Sex Assigned at Not on file Legal Sex Female 4:44 PM CDT Gender Identity Not on file Sexual Orientation Not on file documented as of this encounter Miscellaneous Notes * Cerner Conversion Note - Laurel Mayer MD - 06/22/2019 11:50 AM DIRECTOR WOMEN DATE OF PROCEDURE: 06/22/2019 DC CARDIOVERSION SURGEON: Yasamny Vazquez MD PRIMARY CARE PHYSICIAN: . PROCEDURE [...] Successful DC cardioversion achieving normal sinus rhythm. /[id number] Yasmany Vazquez MD SR/AQ / SR / MODL /[id number] Electronically signed by [facility], [facility] Conversion Motor Hotel Manager Cerner at 08/07/2022 2:12 PM CDT documented in this encounter Plan of Treatment Not on file documented as of this encounter Visit Diagnoses Not on filedocumented in this encounter Care Teams Flying Teacher Relationship Specialty Start Date End Date Oren Pressley MD [address] [place] [address] PCP - General Adolescent Medicine 05/17/23 documented as of this encounter
--- OUTSIDE RECORDS SUMMARY | 2025-03-13 10:37 | XMS_ITS | Encounter Summary ---
Author Organization Healthcare Address [address] [place] [address] Care Team Providers Care Emc Storage Architect Name Role Phone Pcp, No Primary Care Provider Oren Hull MD Primary Care Provider Siam Trejo MD Unavailable [phone] Encounter Details Date Type Department Care Team (Late st Contact Info) Description 12/02/2020 Orders Only [facility] [address] [place] [address] Sima Trejo MD [address] [address] Social History Tobacco Use Types [...] Description 04/05/2025 7:45 AM EST Office Visit [facility] [address] [place] [address] 04/05/2025 8:15 AM EST Office Visit [facility] [address] [place] [address] Sima Trejo MD [address] [address] (work) 04/05/2025 8:30 AM EST Infusion [facility] [place] [address] documented as of this encounter Procedures Procedure Name Priority Date/Time Associated Diagnosis Comments CBC WITH AUTO DIFFERENTIAL Routine 12/02/2020 12:56 PM EDT documented in this encounter Results * (ABNORMAL) CBC and Differential (12/02/2020 12:56 PM EDT) External WBC 8.0 3.8 - 10.8 K/uL [facility] External Red Blood Cell (RBC) 3.74(L) 3.80 - 5.20 M/uL [facility] External Hemoglobin 11.1(L) 12.0 - 16.0 G/DL [facility] External Hematocrit 33.5(L) 35.0 - 47.0 % [facility] External MCV 90 80 - 100 fL [facility] External MCH 30 26 - 35 [facility] External MCHC 33 32 - 36 G/DL [facility] External RDW 15.4(H) 11.0 - 15.0 % [facility] External Mean Platelet Volume 8.8 6.2 - 10.5 fL [facility] External Platelets 162 130 - 400 K/uL [facility] External Neutrophil# 5.1 1.6 - 8.4 K/uL [facility] External Lymphocyte# 2.0 0.4 - 5.1 K/uL [facility] External Absolute Monocyte (Abs Levy) 0.8 0.0 - 1.2 K/uL [facility] External Eosinophils# 0.1 0.0 - 0.8 K/uL [facility] External Baso# 0.1 0.0 - 0.3 K/uL [facility] External Neutrophils % 62.9 42.0 - 78.0 % [facility] External Lymphocyte % 25.1 11.0 - 47.0 % [facility] External Monocyte % 10.2 0.0 - 11.0 % [facility] External Eosinophil% 0.9 0.0 - 7.0 % [facility] External Basophil % 0.9 0.0 - 3.0 % [facility] External Nucleated RBC%-Auto 0.1 0.0 - 0.9 % [facility] External Nucleated RBC Absolute 0.01 Not Estab. K/uL [facility] 12/02/2020 12:5 6 PM EDT 12/02/2020 1:27 PM EDT us Sima Trejo MD LAB BLOOD ORDERABLES Final Re sult [facility] [address] [place] [address], documented in this encounter Visit Diagnoses Not on filedocumented in this encounter Care Teams Emc Storage Architect Relationship Specialty Start Date End Date Pcp, No [address] [place] [address] PCP - General 12/02/20 02/08/23 Oren Pressley MD [address] [place] [address] PCP - General Internal Medicine 02/09/23 Sima Trejo MD [address] [address] Medical Oncologist Hematology and Oncology 08/02/23 documented as of this encounter
--- OUTSIDE RECORDS SUMMARY | 2025-03-13 10:37 | XMS_ITS | Encounter Summary ---
Author Organization [employer] ([place], [place], [place], [place], [place]) Address [address] [place] [address] Care Team Providers Care Import/Export Administrator Name Role Phone Oren Pressley MD Primary Care Provider + [phone] Encounter Details Date Type Department Care Team (Late st Contact Info) Description 06/22/2019 Transcribed Document [facility] [facility] [place] [address] ProviderLaurel MD [address] [place] [address] [id number] Social History Tobacco Use Types Packs/Day Years Used Date Smoking Tobacco: Never Assessed Comments Unknown Sex and Gender Information Value Date Recorded Sex Assigned at Not on file Legal Sex Female 4:44 PM CDT Gender Identity Not on file Sexual Orientation Not on file documented as of this encounter Miscellaneous Notes * Cerner Conversion Note - Historical ProviderMD - 06/22/2019 12:31 PM CHANNEL CEMENTER Stroke/Warfarin Instructions Entered On: 06/22/2019 12:31 EST [...] Signs/Symptoms of : Significant bleeding, Clot EDWINA VALIETNE, RN - 06/22/2019 12:31 EST documented in this encounter Plan of Treatment Not on file documented as of this encounter Visit Diagnoses Not on filedocumented in this encounter Care Teams Import/Export Administrator Relationship Specialty Start Date End Date Oren Pressley MD [address] [place] [address] PCP - General Adolescent Medicine 05/17/23 documented as of this encounter
--- OUTSIDE RECORDS SUMMARY | 2025-03-13 10:37 | XMS_ITS | Encounter Summary ---
Author Organization Healthcare Address [address] [place] [address] Care Team Providers Care Assembler Truck Trailer Name Role Phone Pcp, No Primary Care Provider Oren Hull MD Primary Care Provider [phone] Sima Trejo MD Unavailable [phone] Encounter Details Date Type Department Care Team (Late st Contact Info) Description 02/17/2022 Orders Only [facility] [address] [place] [address] Sima Trejo MD [address] [address] Social History Tobacco Use Types [...] Description 04/05/2025 7:45 AM EST Office Visit [facility] [address] [place] [address] 04/05/2025 8:15 AM EST Office Visit [facility] [address] [place] [address] Sima Trejo MD [address] [address] 04/05/2025 8:30 AM EST Infusion [facility] [address] [place] [address] documented as of this encounter Procedures Procedure Name Priority Date/Time Associated Diagnosis Comments URIC ACID, PLASMA Routine 02/17/2022 12: 42 PM EDT documented in this encounter Results * (ABNORMAL) Uric Acid, Plasma (02/17/2022 12:42 PM EDT) External Uric Acid 7.5(H) 2.4 - 5.7 mg/dL [facility] Comment: Reference ranges are based on population norms and do not necessarily correlate with treatment targets. In patients with an established diagnosis of gout undergoing Urate Lowering Therapy (ULT), the 2012 [employer] Guidelines for Management of Gout recommend a target uric acid level of < 6 mg/dL in all patients, or lower in certain circumstances. Arthritis Care and Research Vol 64 No , Jan. 2012 [employer] 02/17/2022 12:4 2 PM EDT 02/17/2022 12:54 PM EDT us Sima Trejo MD LAB BLOOD ORDERABLES Final Re sult [facility] [address] [place] [address], documented in this encounter Visit Diagnoses Not on filedocumented in this encounter Care Teams Assembler Truck Trailer Relationship Specialty Start Date End Date Pcp, No [address] [place] [address] PCP - General 12/02/20 02/08/23 Oren Pressley MD [address] [place] [address] PCP - General Internal Medicine 02/09/23 Sima Trejo MD [address] [address] Medical Oncologist Hematology and Oncology 08/02/23 documented as of this encounter
--- OUTSIDE RECORDS SUMMARY | 2025-03-13 10:37 | XMS_ITS | Encounter Summary ---
Author Organization Healthcare Address [address] [place] [address] Care Team Providers Care Lockstitch Binder Name Role Phone Pcp, No Primary Care Provider Oren Hull MD Primary Care Provider Sima Trejo MD Unavailable [phone] Encounter Details Date Type Department Care Team (Late st Contact Info) Description 12/02/2020 Orders Only [facility] [place] [address] Sima Trejo MD [address] [address] Social History Tobacco Use [...] Description 04/05/2025 7:45 AM EST Office Visit [facility] [address] [place] [address] 04/05/2025 8:15 AM EST Office Visit [facility] [address] [place] [address] Sima Trejo MD [address] [address] 04/05/2025 8:30 AM EST Infusion [facility] [address] [place] [address] documented as of this encounter Procedures Procedure [...] ORDERABLES Final Re sult Performing Organization Address City/State/[facility] Co de Phone Number [facility] [address] [place] [address], documented in this encounter Visit Diagnoses Not on filedocumented in this encounter Care Teams Lockstitch Binder Relationship Specialty Start Date End Date Pcp, No [address] [place] [address] PCP - General 12/02/20 02/08/23 Oren Pressley MD [address] [place] [address] PCP - General Internal Medicine 02/09/23 Sima Trejo MD [address] [address] Medical Oncologist Hematology and Oncology 08/02/23 documented as of this encounter
--- OUTSIDE RECORDS SUMMARY | 2025-03-13 10:37 | XMS_ITS | Encounter Summary ---
Author Organization Healthcare Address [address] [place] [address] Care Team Providers Care Last Model Department Supervisor Name Role Phone Pcp, No Primary Care Provider Oren Hull MD Primary Care Provider Sima Trejo MD Unavailable [phone] Encounter Details Date Type Department Care Team (Late st Contact Info) Description 06/02/2021 Orders Only [facility] [address] [place] [address] Sima Trejo MD [address] [address] Social History Tobacco Use Types [...] Description 04/05/2025 7:45 AM EST Office Visit [facility] [address] [place] [address] 04/05/2025 8:15 AM EST Office Visit [facility] [address] [place] [address] Sima Trejo MD [address] [address] 04/05/2025 8:30 AM EST Infusion [facility] [place] [address] documented as of this encounter Procedures Procedure Name Priority Date/Time Associated Diagnosis Comments COMPREHENSIVE METABOLIC PANEL, PLASMA Routine 06/02/2021 12:06 PM EST documented in this encounter Results * (ABNORMAL) Comprehensive Metabolic Panel, Plasma (06/02/2021 12:06 PM EST) External Glucose 119(H) 74 - 100 mg/dL [facility] External BUN 27(H) 6 - 20 mg/dL [facility] External Creatinine Blood 1.62(H) 0.50 - 0.95 mg/dL [facility] External BUN/Creat Ratio 17 10 - 20 (calc) [facility] External Sodium 142 136 - 145 mmol/L [facility] External Potassium 4.3 3.4 - 5.0 mmol/L [facility] External Chloride 103 98 - 107 mmol/L [facility] External Carbon Dioxide 24 22 - 31 mmol/L [facility] External Anion Gap (AG) 15 7 - 25 (calc) [facility] External Calcium 9.3 8.6 - 10.2 mg/dL [facility] External Total Protein 6.4 6.4 - 8.3 g/dL [facility] External Albumin 4.4 3.5 - 5.2 g/dL [facility] External Globulin 2.0 1.5 - 4.5 g/dL (calc) [facility] External Albumin/Globulin Ratio 2.2 1.1 - 2.5 (calc) [facility] External Bilirubin Total 0.3 0.1 - 1.2 mg/dL [facility] External Alkaline Phosphatase 82 30 - 121 U/L [facility] External AST (SGOT) 17 0 - 32 U/L [facility] External ALT (SGPT) 17 0 - 33 U/L [facility] External EGFR (If AFR/AM) 35(A) >=60 [facility] External Estimated GFR 30(A) >=60 [facility] Comment: NOTE Chronic kidney disease [...] MD LAB BLOOD ORDERABLES Final Re sult [facility] [address] [place] [address], documented in this encounter Visit Diagnoses Not on filedocumented in this encounter Care Teams Last Model Department Supervisor Relationship Specialty Start Date End Date Pcp, No [address] [place] [address] PCP - General 12/02/20 02/08/23 Oren Pressley MD [address] [facility] [address] [place] [address] PCP - General Internal Medicine 02/09/23 Sima Trejo MD [address] [address] Medical Oncologist Hematology and Oncology 08/02/23 documented as of this encounter
--- OUTSIDE RECORDS SUMMARY | 2025-03-13 10:37 | XMS_ITS | Encounter Summary ---
Author Organization [employer] ([place], [place], [place], [place], [place]) Address [address] [place] [address] Care Team Providers Care Independent Living Instructor Name Role Phone Oren Pressley MD Primary Care Provider + [phone] Encounter Details Date Type Department Care Team (Late st Contact Info) Description 05/16/2018 Transcribed Document [facility] [place] [facility] [place] [address] ProviderLaurel MD [address] [place] [phone] Social History Tobacco Use Types Packs/Day Years Used Date Smoking Tobacco: Never Assessed Comments Unknown Sex and Gender Information Value Date Recorded Sex Assigned at Not on file Legal Sex Female 4:44 PM CDT Gender Identity Not on file Sexual Orientation Not on file documented as of this encounter Miscellaneous Notes * Cerner Conversion Note - Laurel Mayer MD - 05/16/2018 9:45 AM STITCHDOWNS TOE FORMER DATE OF PROCEDURE: 05/16/2018 DIRECT CURRENT CARDIOVERSION [...] CC1: Yasmany Vazquez M.D. Electronically signed by [facility], [facility] Conversion Upper And Bottom Lacer Hand Cerner at 08/07/2022 2:19 PM CDT documented in this encounter Plan of Treatment Not on file documented as of this encounter Visit Diagnoses Not on filedocumented in this encounter Care Teams Independent Living Instructor Relationship Specialty Start Date End Date Oren Pressley MD [address] [place] [address] PCP - General Adolescent Medicine 05/17/23 documented as of this encounter
--- OUTSIDE RECORDS SUMMARY | 2025-03-13 10:37 | XMS_ITS | Encounter Summary ---
Author Organization Healthcare Address [address] [place] [address] Care Team Providers Care Sharepoint Architect Name Role Phone Oren Pressley MD Primary Care Provider Sima Trejo MD Unavailable [phone] Encounter Details Date Type Department Care Team (Late st Contact Info) Description 01/09/2025 Orders Only [facility] [address] [place] [address] Sima Trejo MD [address] [facility] [address] [place] [address] CLL (chronic lymphoid leukemia) in [...] (Lifetime) No 01/09/2025 12:00 PM EDT Telma Statnon RN documented as of this encounter Plan of Treatment Upcoming Encounters Date Type Department Care Team (Late st Contact Info) Description 04/05/2025 7:45 AM EST Office Visit [facility] [address] [place] [phone] 04/05/2025 8:15 AM EST Office Visit [facility] [address] [place] [phone] [place] [address] [place] [phone] 04/05/2025 8:30 AM EST Infusion [facility] [address] [place] [phone] documented as of this encounter Procedures Procedure [...] - 11.0 SECONDS 01/09/2025 11:44 AM EDT [facility] External INR - Internormal Ratio 1.9(L) 2.0 - 3.0 01/09/2025 11:44 AM EDT [facility] Comment: INR OF 2.0 [...] LAB BLOOD ORDERABLES Final Re sult [facility] [address] [place] [address], * Acute Hepatitis Panel (01/09/2025 10:50 AM EDT) Pathologist [facility] External Hepatitis A IgM Ab (HAM) NONREACTIVE NONREACTIVE 01/09/2025 1:19 PM EDT [facility] External Hepatitis B Surface Antigen (HBSAg) NONREACTIVE NONREACTIVE 01/09/2025 1:19 PM EDT [facility] External Hepatitis B Core IgM (HBCM) NONREACTIVE NONREACTIVE 01/09/2025 1:19 PM EDT [facility] External Hepatitis C Antibody (HCV Ab) NONREACTIVE NONREACTIVE 01/09/2025 1:19 PM EDT [facility] Comment: Antibodies to HCV were not detected; does not exclude the possibility of exposure to HCV. Blood Venous blood specimen / Unknown 01/09/2025 10:50 AM EDT 01/09/2025 11:30 AM EDT us Sima Trejo MD LAB BLOOD ORDERABLES Final Re sult Performing Organization Address [facility]/ZIP Co de Phone Number [facility] [address] [place] [address], * Lactate Dehydrogenase, Plasma (01/09/2025 10:50 AM EDT) External LDH Lactate Dehydrogenase 157 135 - 233 U/L 01/09/2025 12:04 PM EDT [facility] Blood Venous blood specimen / Unknown 01/09/2025 10:50 AM EDT 01/09/2025 11:30 AM EDT Sima Trejo MD LAB BLOOD ORDERABLES Final Re sult Performing Organization Address [facility] Co de Phone Number [facility] [address] [place] [address], [place] [phone] * (ABNORMAL) Comprehensive metabolic panel (01/09/2025 10:50 AM EDT) External Glucose 128(H) 74 - 100 mg/dL 01/09/2025 11:44 AM EDT [facility] External BUN 14 6 - 20 mg/dL 01/09/2025 11:44 AM EDT [facility] External Creatinine Blood 1.41(H) 0.50 - 0.95 mg/dL 01/09/2025 11:44 AM EDT [facility] External BUN/Creat Ratio 10 10 - 20 (calc) 01/09/2025 11:44 AM EDT [facility] External Sodium 135(L) 136 - 145 mmol/L 01/09/2025 11:44 AM EDT [facility] External Potassium 4.1 3.4 - 5.0 mmol/L 01/09/2025 11:44 AM EDT [facility] External Chloride 101 98 - 107 mmol/L 01/09/2025 11:44 AM EDT [facility] External Carbon Dioxide (CO2) 22 22 - 31 mmol/L 01/09/2025 11:44 AM EDT [facility] External Anion Gap (AG) 12 7 - 25 (calc) 01/09/2025 11:44 AM EDT [facility] External Calcium 9.0 8.6 - 10.2 mg/dL 01/09/2025 11:44 AM EDT [facility] External Total Protein 6.1(L) 6.4 - 8.3 g/dL 01/09/2025 11:44 AM EDT [facility] External Albumin 4.0 3.5 - 5.2 g/dL 01/09/2025 11:44 AM EDT [facility] External Globulin 2.1 1.5 - 4.5 11:44 AM EDT [facility] External Albumin/Globulin Ratio 1.9 1.1 - 2.5 (calc) 01/09/2025 11:44 AM EDT [facility] External Bilirubin Total 0.6 0.1 - 1.0 mg/dL 01/09/2025 11:44 AM EDT [facility] Comment:NOTE: New reference range. External Alkaline Phosphatase 78 30 - 121 U/L 01/09/2025 11:44 AM T [facility] External AST (SGOT) 19 0 - 32 U/L 01/09/2025 11:44 AM EDT [facility] External ALT (SGPT) 13 0 - 33 U/L 01/09/2025 11:44 AM EDT [facility] External Estimated GFR 37(A) >=60 01/09/2025 11:44 AM T [facility] Comment: NOTE New calculation for GFR (CKD-EPI 2020) is formulated without race adjustment factors at the recommendation of the National Kidney Foundation and [place] [employer]ph[employer]. This calculation has not been validated in women. For pediatric patients refer to https://www.kidney.org/professionals/KDOQI/gfr_calculatorPed Blood Venous blood specimen / Unknown 01/09/2025 10:50 AM EDT 01/09/2025 11:16 AM EDT Sima Trejo MD LAB BLOOD ORDERABLES Final Re sult [facility] [address] [place] [address], * (ABNORMAL) CBC and differential (01/09/2025 10:50 AM EDT) External WBC 6.8 3.8 - 10.8 10*3/uL 01/09/2025 11:55 AM EDT [facility] External Red Blood Cell (RBC) 3.61(L) 3.80 - 5.20 10*6/uL 01/09/2025 11:55 AM EDT [facility] External Hemoglobin 11.0(L) 12.0 - 16.0 g/dL 01/09/2025 11:55 AM EDT [facility] External Hematocrit 33.1(L) 35.0 - 47.0 % 01/09/2025 11:55 AM EDT [facility] External MCV 92 80 - 100 fL 01/09/2025 11:55 AM EDT [facility] External MCH 31 26 - 35 pg 01/09/2025 11:55 AM EDT [facility] External MCHC 33 32 - 36 g/dL 01/09/2025 11:55 AM EDT [facility] External RDW 17.4(H) 11.0 - 15.0 % 01/09/2025 11:55 AM EDT [facility] External Mean Platelet Volume 7.3 6.2 - 10.5 fL 01/09/2025 11:55 AM EDT [facility] External Platelet Count (Plt) 123(L) 150 - 400 10*3/uL 01/09/2025 11:55 AM EDT [facility] External Neutrophil# 2.7 1.6 - 8.4 10*3/uL 01/09/2025 11:55 AM EDT [facility] External Lymphocyte# 3.5 0.4 - 5.1 10*3/uL 01/09/2025 11:55 AM EDT [facility] External Absolute Monocyte (Abs [place]) 0.3 0.0 - 1.2 10*3/uL 01/09/2025 11:55 AM EDT [facility] External Eosinophils# 0.2 0.0 - 0.8 10*3/uL 01/09/2025 11:55 AM EDT [facility] External Baso# 0.0 0.0 - 0.3 10*3/uL 01/09/2025 11:55 AM EDT [facility] External Neutrophils % 39.0(L) 42.0 - 78.0 % 01/09/2025 11:55 AM EDT [facility] External Lymphocyte % 52.0(H) 11.0 - 47.0 % 01/09/2025 11:55 AM EDT [facility] External Monocyte % 5.0 0.0 - 11.0 % 01/09/2025 11:55 AM EDT [facility] External Eosinophil% 3.0 0.0 - 7.0 % 01/09/2025 11:55 AM EDT [facility] External Basophil % 0.0 0.0 - 3.0 % 01/09/2025 11:55 AM EDT [facility] External Nucleated RBC%-Auto 0.2 0.0 - 0.9 % 01/09/2025 11:55 AM EDT [facility] External Nucleated RBC Absolute 0.01 Not Estab. 10*3/uL 01/09/2025 11:55 AM EDT [facility] Blood Venous blood specimen / Unknown 01/09/2025 10:50 AM EDT 01/09/2025 11:16 AM EDT us Sima Trejo MD LAB BLOOD ORDERABLES Final Re sult [facility] [address] [place] [address], documented in this encounter Visit Diagnoses Diagnosis [...] documented as of this encounter Care Teams Sharepoint Architect Relationship Specialty Start Date End Date Oren Pressley MD [address] [place] [address] PCP - General Internal Medicine 02/09/23 Sima Trejo MD [address] [phone] Medical Oncologist Hematology and Oncology 08/02/23 documented as of this encounter
--- OUTSIDE RECORDS SUMMARY | 2025-03-13 10:37 | XMS_ITS | Encounter Summary ---
Author Organization [employer] ([place], [place], [place], [place], [place]) Address [address] [place] [address] Care Team Providers Care Contract Post Office Clerk Name Role Phone Oren Pressley MD Primary Care Provider [phone] Encounter Details Date Type Department Care Team (Late st Contact Info) Description 06/22/2019 Transcribed Document [facility] Family [place] [address] ProviderLaurel MD [address] [place] [phone] Social History Tobacco Use Types Packs/Day Years Used Date Smoking Tobacco: Never Assessed Comments Unknown Sex and Gender Information Value Date Recorded Sex Assigned at Not on file Legal Sex Female 4:44 PM CDT Gender Identity Not on file Sexual Orientation Not on file documented as of this encounter Miscellaneous Notes * Cerner Conversion Note - Laurel Mayer MD - 06/22/2019 12:28 PM DRY CELL SEALER Patient Education Materials Follows: Electrical Cardioversion, Care [...] to help you relax (sedative). ??? Take wapb-ilz-dowgvow and prescription medicines only as told by [...] 01/24/2014 Document Revised: 11/06/2016 Document Reviewed: 10/09/2016 Digital Reasoning Interactive Patient Education ? 2019 [employer]. Moderate Conscious Sedation, Adult, Care After These [...] you are awake and alert. ??? Take rtme-tsp-rmvkkht and prescription medicines only as told by [...] 01/24/2014 Document Revised: 09/07/2016 Document Reviewed: 07/25/2016 Digital Reasoning Interactive Patient Education ? 2019 [employer]. Electronically signed by Rayne Zamudio Conversion Electronic Assembler Group Leader Cerner at 08/07/2022 2:11 PM CDT documented in this encounter Plan of Treatment Not on file documented as of this encounter Visit Diagnoses Not on filedocumented in this encounter Care Teams Contract Post Office Clerk Relationship Specialty Start Date End Date Oren Prsesley MD [address] [place] [address] [place] [address] PCP - General Adolescent Medicine 05/17/23 documented as of this encounter
--- OUTSIDE RECORDS SUMMARY | 2025-03-13 10:37 | XMS_ITS | Encounter Summary ---
Author Organization Healthcare Address [address] [place] [address] Care Team Providers Care Outside Property Agent Name Role Phone Oren Pressley MD Primary Care Provider [phone] Sima Trejo MD Unavailable [phone] Encounter Details Date Type Department Care Team (Late Contact Info) Description 05/28/2023 [facility] [address] [place] [address] Dagmar Sewell MD [address] [address] Social History Tobacco Use Types [...] EST Office Visit [facility] [address] [place] [address] 04/05/2025 8:15 AM EST Office Visit [facility] [address] [place] [address] Sima Trejo MD [address] [place] [phone] 04/05/2025 8:30 AM [facility] [address] [place] [address] documented as of this encounter Visit Diagnoses Not on filedocumented in this encounter Care Teams Outside Property Agent Relationship Specialty Start Date End Date Oren Pressley MD [address] [place] [address] PCP - General Internal Medicine 02/09/23 Sima Trejo MD [address] [place] [phone] Medical Oncologist Hematology and Oncology 08/02/23 documented as of this encounter
--- OUTSIDE RECORDS SUMMARY | 2025-03-13 10:37 | XMS_ITS | Encounter Summary ---
Author Organization Healthcare Address [address] [place] [address] Care Team Providers Care Transportation Modeler Name Role Phone Pcp, No Primary Care Provider Oren Hull MD Primary Care Provider Sima Trejo MD Unavailable [phone] Encounter Details Date Type Department Care Team (Late st Contact Info) Description 02/17/[address] [facility] [address] [place] [address] Sima Trejo MD [address] [address] Social History Tobacco Use Types [...] [facility] [address] [place] [address] 04/05/2025 8:15 AM EST Office Visit [facility] [address] [place] [address] Sima Trejo MD [address] [address] 04/05/2025 8:30 AM EST Infusion [facility] [place] [address] documented as of this encounter Procedures Procedure Name Priority Date/Time Associated Diagnosis Comments CBC WITH AUTO DIFFERENTIAL Routine 02/17/2022 12:42 PM EDT documented in this encounter Results * CBC and Differential (02/17/2022 12:42 PM EDT) External WBC 6.1 3.8 - 10.8 K/uL [facility] External Red Blood Cell (RBC) 4.03 3.80 - 5.20 M/uL [facility] External Hemoglobin 12.1 12.0 - 16.0 G/DL [facility] External Hematocrit 35.9 35.0 - 47.0 % [facility] External MCV 89 80 - 100 fL [facility] External MCH 30 26 - 35 PG [facility] External MCHC 34 32 - 36 G/DL [facility] External RDW 14.6 11.0 - 15.0 % [facility] External Mean Platelet Volume 7.3 6.2 - 10.5 fL [facility] External Platelets 180 130 - 400 K/uL [facility] External Neutrophil# 3.8 1.6 - 8.4 K/uL [facility] External Lymphocyte# 1.6 0.4 - 5.1 K/uL [facility] External Absolute Monocyte (Abs [place]) 0.5 0.0 - 1.2 K/uL [facility] External Eosinophils# 0.1 0.0 - 0.8 K/uL [facility] External Baso# 0.1 0.0 - 0.3 K/uL [facility] External Neutrophils % 62.4 42.0 - 78.0 % [facility] External Lymphocyte % 25.6 11.0 - 47.0 % [facility] External Monocyte % 9.0 0.0 - 11.0 % [facility] External Eosinophil% 2.0 0.0 - 7.0 % [facility] External Basophil % 1.0 0.0 - 3.0 % [facility] External Nucleated RBC%-Auto 0.0 0.0 - 0.9 % [facility] External Nucleated RBC Absolute 0.00 Not Estab. K/uL [facility] 02/17/2022 12:4 2 PM EDT 02/17/2022 12:53 PM EDT Sima Trejo MD LAB BLOOD ORDERABLES Final Re sult [facility] [address] [place] [address], documented in this encounter Visit Diagnoses Not on filedocumented in this encounter Care Teams Transportation Modeler Relationship Specialty Start Date End Date Pcp, No [address] [place] [address] PCP - General 12/02/20 02/08/23 Oren Pressley MD [address] [place] [address] PCP - General Internal Medicine 02/09/23 Sima Trejo MD [address] [address] Medical Oncologist Hematology and Oncology 08/02/23 documented as of this encounter
--- OUTSIDE RECORDS SUMMARY | 2025-03-13 10:37 | XMS_ITS | Encounter Summary ---
Author Organization [employer] ([place], [place], [place], [place], [place]) Address [address] [place] [address] Care Team Providers Care Scenic Designer Name Role Phone Oren Pressley MD Primary Care Provider [phone] Encounter Details Date Type Department Care Team (Late st Contact Info) Description 05/16/2018 Transcribed Document [facility] [place] [facility] [place] [address] ProviderLaurel MD [address] [place] [phone] Social History Tobacco Use Types Packs/Day Years Used Date Smoking Tobacco: Never Assessed Comments Unknown Sex and Gender Information Value Date Recorded Sex Assigned at Not on file Legal Sex Female 4:44 PM CDT Gender Identity Not on file Sexual Orientation Not on file documented as of this encounter Miscellaneous Notes * Cerner Conversion Note - Historical ProviderMD - 05/16/2018 10:28 AM DEMAND EQUIPMENT REPAIRER Nursing Discharge Summary Entered On: 05/16/2018 10:29 EST Performed On: 05/16/2018 10:28 EST by KASSIDY SAWYER, date puller Documentation Discharge Date/Time : 05/16/2018 12:09 EST [...] KASSIDY SAWYER RN - 05/16/2018 10:28 EST documented in this encounter Plan of Treatment Not on file documented as of this encounter Visit Diagnoses Not on filedocumented in this encounter Care Teams Scenic Designer Relationship Specialty Start Date End Date Oren Pressley MD [address] [place] [address] PCP - General Adolescent Medicine 05/17/23 documented as of this encounter
--- OUTSIDE RECORDS SUMMARY | 2025-03-13 10:37 | XMS_ITS | Encounter Summary ---
Author Organization Healthcare Address [address] [place] [address] Care Team Providers Care Sharepoint Application Developer Name Role Phone Pcp, No Primary Care Provider Oren Hull MD Primary Care Provider [phone] Sima Trejo MD Unavailable [phone] Encounter Details Date Type Department Care Team (Late st Contact Info) Description 03/31/2021 Orders Only [facility] [address] [place] [address] Sima Trejo MD [address] [address] Social History Tobacco Use Types [...] Description 04/05/2025 7:45 AM EST Office Visit [facility] [address] [place] [address] 04/05/2025 8:15 AM EST Office Visit [facility] [address] [place] [address] Sima Trejo MD [address] [address] 04/05/2025 8:30 AM EST Infusion [facility] [place] [address] documented as of this encounter Procedures Procedure Name Priority Date/Time Associated Diagnosis Comments COMPREHENSIVE METABOLIC PANEL, PLASMA Routine 03/31/2021 12:13 PM EST documented in this encounter Results * (ABNORMAL) Comprehensive Metabolic Panel, Plasma (03/31/2021 12:13 PM EST) External Glucose 113(H) 74 - 100 mg/dL [facility] External BUN 41(H) 6 - 20 mg/dL [facility] External Creatinine Blood 1.91(H) 0.50 - 0.95 mg/dL [facility] External BUN/Creat Ratio 21(H) 10 - 20 (calc) [facility] External Sodium 136 136 - 145 mmol/L [facility] External Potassium 4.9 3.4 - 5.0 mmol/L [facility] External Chloride 99 98 - 107 mmol/L [facility] External Carbon Dioxide 26 22 - 31 mmol/L [facility] External Anion Gap (AG) 11 7 - 25 (calc) [facility] External Calcium 9.3 8.6 - 10.2 mg/dL [facility] External Total Protein 6.7 6.4 - 8.3 g/dL [facility] External Albumin 4.4 3.5 - 5.2 g/dL [facility] External Globulin 2.3 1.5 - 4.5 g/dL (calc) [facility] External Albumin/Globulin Ratio 1.9 1.1 - 2.5 (calc) [facility] External Bilirubin Total 0.4 0.1 - 1.2 mg/dL [facility] External Alkaline Phosphatase 54 30 - 121 U/L [facility] External AST (SGOT) 15 0 - 32 U/L [facility] External ALT (SGPT) 12 0 - 33 U/L [facility] External EGFR (If AFR/AM) 29(A) >=60 [facility] External Estimated GFR 25(A) >=60 [facility] Comment: NOTE Chronic kidney disease [...] LAB BLOOD ORDERABLES Final Re sult [facility] [address] [place] [address], documented in this encounter Visit Diagnoses Not on filedocumented in this encounter Care Teams Sharepoint Application Developer Relationship Specialty Start Date End Date Pcp, No [address] [place] [address] PCP - General 12/02/20 02/08/23 Oren Pressley MD [address] [facility] [address] [place] [address] PCP - General Internal Medicine 02/09/23 Sima Trejo MD [address] [address] Medical Oncologist Hematology and Oncology 08/02/23 documented as of this encounter
--- OUTSIDE RECORDS SUMMARY | 2025-03-13 10:37 | XMS_ITS | Encounter Summary ---
Author Organization [employer] ([place], [place], [place], [place], [place]) Address [address] [place] [address] Care Team Providers Care Underwriting Clerks Supervisor Name Role Phone Oren Corbin MD Primary Care Provider + [phone] Encounter Details Date Type Department Care Team (Late st Contact Info) Description 06/22/[address] [facility] Family Medicine [facility] [place] [address] ProviderLaurel MD [address] [place] [address] Social History Tobacco Use Types Packs/Day Years Used Date Smoking Tobacco: Never Assessed Comments Unknown Sex and Gender Information Value Date Recorded Sex Assigned at Not on file Legal Sex Female 4:44 PM CDT Gender Identity Not on file Sexual Orientation Not on file documented as of this encounter Miscellaneous Notes * Cerner Conversion Note - Laurel ProviderMD - 06/22/2019 12:31 PM MAINTENANCE ASSOCI[place] [address] [facility] :1945 Visit Time:06/22/2019 Your Visit Summary Your [...] 05, at 9:00 am Where: [address] SECTION OF CARDIOLOGY [place] [id number] Business (1) Warfarin Instructions Indication for Warfarin [...] instructions 0.5 Tab Oral Daily 06/22/2019 Please cherry picker operator your prescription for flecinide and start it [...] to help you relax (sedative). ??? Take fuff-jju-wsgtuzk and prescription medicines only as told by [...] 01/24/2014 Document Revised: 11/06/2016 Document Reviewed: 10/09/2016 [employer] Patient Education ?? 2019 [employer] Moderate Conscious Sedation, Adult, Care After [...] you are awake and alert. ??? Take nkmf-vqn-mfnjwvn and prescription medicines only as told by [...] 01/24/2014 Document Revised: 09/07/2016 Document Reviewed: 07/25/2016 [employer] Interactive Patient Education ?? 2019 [employer]. flecainide (FLEK a nide) [employer]cor What is the most important information I [...] may report side effects to FDA at 1-033-IIQ-9432. What other drugs will affect flecainide? Tell your doctor about all your other medicines, especially: ?? digoxin; ?? a diuretic or 'water pill'; ?? a beta-mari (atenolol, metoprolol, propranolol, sotalol, and others); ?? other heart medications such as amiodarone, diltiazem, disopyramide, nifedipine, quinidine, or verapamil; or ?? seizure medication. This list is not complete. Other drugs may affect flecainide, including prescription and uctk-uqc-plpyuox medicines, vitamins, and herbal products. Not all [...] to ensure that the information provided by [employer]. ('[employer]') is accurate, up-to-date, and complete, but no guarantee is made to that effect. Drug information contained herein may be time sensitive. [employer] information has been compiled for use by healthcare practitioners and consumers in the [place] and therefore [employer] does not warrant that uses outside of the [place] are appropriate, unless specifically indicated otherwise. [employer] drug information does not endorse drugs, diagnose patients or recommend therapy. [employer] drug information is an informational resource designed [...] effective or appropriate for any given patient. [employer] does not assume any responsibility for any aspect of healthcare administered with the aid of information [employer] provides. The information contained herein is not intended to cover all possible uses, directions, precautions, warnings, drug interactions, allergic reactions, or adverse effects. If you have questions about the drugs you are taking, check with your doctor, nurse or pharmacist. Copyright 1661-9322 [employer]. Version: 4.01. Revision Date: 05/03/2018. Emergency Awareness [...] Assistance with quitting is available by contacting 1-197-EIMKNOW. This is a free resource providing counseling, support, and referral. Or you may contact your personal physician. [employer] Suicide Prevention Lifeline: The National Suicide Prevention [...] was given the opportunity to ask questions. Patient/Parts Salvager Name: Patient/Parts Salvager Signature: Relationship to Patient: Clinician/Hospital Parts Salvager Signature: Date: Electronically signed by [facility] Conversion Marketing Director Assisted Living Cerner at 08/07/2022 2:20 PM CDT documented in this encounter Plan of Treatment Not on file documented as of this encounter Visit Diagnoses Not on filedocumented in this encounter Care Teams Underwriting Clerks Supervisor Relationship Specialty Start Date End Date Oren Corbin MD [address] [place] [address] PCP - General Adolescent Medicine 05/17/23 documented as of this encounter
--- OUTSIDE RECORDS SUMMARY | 2025-03-13 10:37 | XMS_ITS | Encounter Summary ---
Author Organization [employer] ([place], [place], [place], [place], [place]) Address [address] [place] [address] Care Team Providers Care Field Artillery Officer Name Role Phone Oren Pressley MD Primary Care Provider + [phone] Encounter Details Date Type Department Care Team (Late st Contact Info) Description 06/22/2019 Transcribed Document [facility] Family Medicine [facility] [place] [address] ProviderLaurel MD [address] [place] [id number] Social History Tobacco Use Types Packs/Day Years Used Date Smoking Tobacco: Never Assessed Comments Unknown Sex and Gender Information Value Date Recorded Sex Assigned at Not on file Legal Sex Female 4:44 PM CDT Gender Identity Not on file Sexual Orientation Not on file documented as of this encounter Miscellaneous Notes * Cerner Conversion Note - Historical ProviderMD - 06/22/2019 9:38 AM SHERIFF Pre Procedure Adult Entered On: 06/22/2019 9:45 EST Performed On: 06/22/2019 9:38 EST by EDWINA VALIENTE RN Height and Weight, Clinical Dosing Height Source : Measured Height Entry Format : [place] Height, Feet : 5 ft(Converted to: 152 cm, 60 Inch) Height, Inches : 5 Inch(Converted to: 0 ft 5 Inch, 12.70 cm) Clinical Height : 165.1 cm Weight Source : Standing scale Weight Entry Format : [place] Clinical Dosing Weight : 109.09 kg Weight, Pounds : 240 lb Body Surface Area (BSA) : 2.14 m2 Body Mass Index : 40 kg/m2 (HI) [place] Body Weight : 57 kg EDWINA VALIENTE [...] EDWINA VALIENTE RN - 06/22/2019 9:38 EST [place] Suicide Severity Rating Scale (C-SSRS) CSSRS Past [...] Info Legal Guardian : No Support Person/Patient Thermal Cutting Machine Operator : Yes Want Family/Rep/Phys Notified of Admit : No Emergency Contact #1 : [place] Emergency Contact #1 Emergency Contact #1 Relationship : son Emergency Contact #2 : none Emergency Contact #2 Phone Number : none Emergency Contact #2 Relationship : none Primary Language : Micronesian Preferred Communication Mode : Verbal Communication Barrier [...] Scale Risk Level : 25-45 Medium Risk [place] Fall Interventions : Adequate lighting, Assistive devices [...] - 06/22/2019 9:38 EST Electronically signed by [facility] Conversion Machinery Erector Cerner at 08/07/2022 2:31 PM CDT documented in this encounter Plan of Treatment Not on file documented as of this encounter Visit Diagnoses Not on filedocumented in this encounter Care Teams Field Artillery Officer Relationship Specialty Start Date End Date Oren Pressley MD [address] [place] [address] PCP - General Adolescent Medicine 05/17/23 documented as of this encounter
--- OUTSIDE RECORDS SUMMARY | 2025-03-13 10:37 | XMS_ITS | Encounter Summary ---
Author Organization Healthcare Address [address] [place] [address] Care Team Providers Care Circuit Recorder Name Role Phone Pcp, No Primary Care Provider Oren Hull MD Primary Care Provider Sima Trejo MD Unavailable [phone] Encounter Details Date Type Department Care Team (Late st Contact Info) Description 05/26/2022 Orders Only [facility] [place] [address] Sima Trejo MD [address] [address] Social History Tobacco Use Types [...] Description 04/05/2025 7:45 AM EST Office Visit [facility] [address] [place] [address] 04/05/2025 8:15 AM EST Office Visit [facility] [address] [place] [address] Sima Trejo MD [address] [address] 04/05/2025 8:30 AM EST Infusion [facility] [place] [address] documented as of this encounter Procedures Procedure Name Priority Date/Time Associated Diagnosis Comments CBC WITH AUTO DIFFERENTIAL Routine 05/26/2022 1:07 PM EST documented in this encounter Results * (ABNORMAL) CBC and Differential (05/26/2022 1:07 PM EST) External WBC 5.6 3.8 - 10.8 K/uL [facility] External Red Blood Cell (RBC) 4.06 3.80 - 5.20 M/uL [facility] External Hemoglobin 12.0 12.0 - 16.0 G/DL [facility] External Hematocrit 36.0 35.0 - 47.0 % [facility] External MCV 89 80 - 100 fL [facility] External MCH 30 26 - [address] [facility] External MCHC 33 32 - 36 G/DL [facility] External RDW 15.9(H) 11.0 - 15.0 % [facility] External Mean Platelet Volume 7.5 6.2 - 10.5 fL [facility] External Platelets 176 130 - 400 K/uL [facility] External Neutrophil# 3.3 1.6 - 8.4 K/uL [facility] External Lymphocyte# 1.7 0.4 - 5.1 K/uL [facility] External Absolute Monocyte (Abs Stokes) 0.5 0.0 - 1.2 K/uL [facility] External Eosinophils# 0.1 0.0 - 0.8 K/uL [facility] External Baso# 0.0 0.0 - 0.3 K/uL [facility] External Neutrophils % 59.0 42.0 - 78.0 % [facility] External Lymphocyte % 30.6 11.0 - 47.0 % [facility] External Monocyte % 8.1 0.0 - 11.0 % [facility] External Eosinophil% 1.7 0.0 - 7.0 % [facility] External Basophil % 0.6 0.0 - 3.0 % [facility] External Nucleated RBC%-Auto 0.0 0.0 - 0.9 % [facility] External Nucleated RBC Absolute 0.00 Not Estab. K/uL [facility] 05/26/2022 1:07 PM EST 05/26/2022 1:20 PM EST Sima Trejo MD LAB BLOOD ORDERABLES Final Re sult [facility] [address] [place] [address], documented in this encounter Visit Diagnoses Not on filedocumented in this encounter Care Teams Circuit Recorder Relationship Specialty Start Date End Date Pcp, No [address] [place] [address] PCP - General 12/02/20 02/08/23 Oren Pressley MD [address] [place] [address] PCP - General Internal Medicine 02/09/23 Sima Trejo MD [address] [address] Medical Oncologist Hematology and Oncology 08/02/23 documented as of this encounter
--- OUTSIDE RECORDS SUMMARY | 2025-03-13 10:37 | XMS_ITS | Encounter Summary ---
Author Organization Healthcare Address [address] [place] [address] Care Team Providers Care Bulb Sorter Name Role Phone Oren Pressley MD Primary Care Provider Sima Trejo MD Unavailable [phone] Reason for Visit * Reason Comments Med Refill Encounter Details Date Type Department Care Team (Late st Contact Info) Description 12/21/2024 Refill [facility] [address] [place] [id number] Sima Trejo MD [address] [address] Social History Tobacco Use Types [...] Description 04/05/2025 7:45 AM EST Office Visit [facility] [address] [place] [address] 04/05/2025 8:15 AM EST Office Visit [facility] [address] [place] [address] Sima Trejo MD [address] [address] 04/05/2025 8:30 AM EST Infusion [facility] [address] [place] [address] documented as of this encounter Visit Diagnoses Not on filedocumented in this encounter Additional Health Concerns Assessment Noted Time PHQ-9 Depression Total Score: 5 11/15/19 25 9:00 AM EDT A fall risk assessment has been complete d for the patient 08/08/2024 2:12 PM EDT documented as of this encounter Care Teams Bulb Sorter Relationship Specialty Start Date End Date Oren Pressley MD [address] [facility] [address] [place] [address] PCP - General Internal Medicine 02/09/23 Sima Trejo MD [address] [address] Medical Oncologist Hematology and Oncology 08/02/23 documented as of this encounter
--- OUTSIDE RECORDS SUMMARY | 2025-03-13 10:37 | XMS_ITS | Encounter Summary ---
Author Organization Healthcare Address [address] [place] [address] Care Team Providers Care Corporate Consultant Name Role Phone Pcp, No Primary Care Provider Oren Hull MD Primary Care Provider Sima Trejo MD Unavailable [phone] Encounter Details Date Type Department Care Team (Late st Contact Info) Description 03/31/2021 Orders Only [facility] [address] [place] [address] Sima Trejo MD [address] [place] [address] [address] Social History Tobacco Use Types [...] 04/05/2025 7:45 AM EST Office Visit [facility] [address] [place] [address] 04/05/2025 8:15 AM EST Office Visit [facility] [address] [place] [address] Sima Trejo MD [address] [address] 04/05/2025 8:30 AM EST Infusion [facility] [place] [address] documented as of this encounter Procedures Procedure Name Priority Date/Time Associated Diagnosis Comments CBC WITH AUTO DIFFERENTIAL Routine 03/31/2021 12:13 PM EST documented in this encounter Results * (ABNORMAL) CBC and Differential (03/31/2021 12:13 PM EST) External WBC 8.0 3.8 - 10.8 K/uL [facility] External Red Blood Cell (RBC) 4.07 3.80 - 5.20 M/uL [facility] External Hemoglobin 12.1 12.0 - 16.0 G/DL [facility] External Hematocrit 36.2 35.0 - 47.0 % [facility] External MCV 89 80 - [address] [facility] External MCH 30 26 - 35 PG [facility] External MCHC 33 32 - 36 G/DL [facility] External RDW 17.5(H) 11.0 - 15.0 % [facility] External Mean Platelet Volume 8.7 6.2 - 10.[address] [facility] External Platelets 148 130 - 400 K/uL [facility] External Neutrophil# 4.6 1.6 - 8.4 K/uL [facility] External Lymphocyte# 2.6 0.4 - 5.1 K/uL [facility] External Absolute Monocyte (Abs [place]) 0.6 0.0 - 1.2 K/uL [facility] External Eosinophils# 0.1 0.0 - 0.8 K/uL [facility] External Baso# 0.1 0.0 - 0.3 K/uL [facility] External Neutrophils % 57.9 42.0 - 78.0 % [facility] External Lymphocyte % 32.4 11.0 - 47.0 % [facility] External Monocyte % 8.0 0.0 - 11.0 % [facility] External Eosinophil% 0.8 0.0 - 7.0 % [facility] External Basophil % 0.9 0.0 - 3.0 % [facility] External Nucleated RBC%-Auto 0.0 0.0 - 0.9 % [facility] External Nucleated RBC Absolute 0.00 Not Estab. K/uL [facility] 03/31/2021 12:1 3 PM EST 03/31/2021 1:17 PM EST Sima Trejo MD LAB BLOOD ORDERABLES Final Re sult [facility] [address] [place] [address], documented in this encounter Visit Diagnoses Not on filedocumented in this encounter Care Teams Corporate Consultant Relationship Specialty Start Date End Date Pcp, No [address] [place] [address] PCP - General 12/02/20 02/08/23 Oren Pressley MD [address] [place] [address] PCP - General Internal Medicine 02/09/23 Sima Trejo MD [address] [address] Medical Oncologist Hematology and Oncology 08/02/23 documented as of this encounter
--- OUTSIDE RECORDS SUMMARY | 2025-03-13 10:37 | XMS_ITS | Encounter Summary ---
Author Organization Healthcare Address [address] [place] [address] Care Team Providers Care Asphalt Tile Floor Layer Name Role Phone Pcp, No Primary Care Provider Oren Hull MD Primary Care Provider [phone] Sima Trejo MD Unavailable [phone] Encounter Details Date Type Department Care Team (Late st Contact Info) Description 08/04/2021 Orders Only [facility] [place] [address] Sima Trejo MD [address] [place] [address] [address] Social History Tobacco Use Types [...] Description 04/05/2025 7:45 AM EST Office Visit [facility] [address] [place] [address] 04/05/2025 8:15 AM EST Office Visit [facility] [address] [place] [address] Sima Trejo MD [address] [address] 04/05/2025 8:30 AM EST Infusion [facility] [place] [address] documented as of this encounter Procedures Procedure Name Priority Date/Time Associated Diagnosis Comments COMPREHENSIVE METABOLIC PANEL, PLASMA Routine 08/04/2021 12:43 PM EDT documented in this encounter Results * (ABNORMAL) Comprehensive Metabolic Panel, Plasma (08/04/2021 12:43 PM EDT) External Glucose 99 74 - 100 mg/dL [facility] External BUN 23(H) 6 - 20 mg/dL [facility] External Creatinine Blood 1.69(H) 0.50 - 0.95 mg/dL [facility] External BUN/Creat Ratio 14 10 - 20 (calc) [facility] External Sodium 139 136 - 145 mmol/L [facility] External Potassium 4.1 3.4 - 5.0 mmol/L [facility] External Chloride 105 98 - 107 mmol/L [facility] External Carbon Dioxide 20(L) 22 - 31 mmol/L [facility] External Anion Gap (AG) 14 7 - 25 (calc) [facility] External Calcium 9.0 8.6 - 10.2 mg/dL [facility] External Total Protein 6.4 6.4 - 8.3 g/dL [facility] External Albumin 3.9 3.5 - 5.2 g/dL [facility] External Globulin 2.5 1.5 - 4.5 g/dL (calc) [facility] External Albumin/Globulin Ratio 1.6 1.1 - 2.5 (calc) [facility] External Bilirubin Total 0.3 0.1 - 1.2 mg/dL [facility] External Alkaline Phosphatase 69 30 - 121 U/L [facility] External AST (SGOT) 11 0 - 32 U/L [facility] External ALT (SGPT) 13 0 - 33 U/L [facility] External EGFR (If AFR/AM) 33(A) >=60 [facility] External Estimated GFR 29(A) >=60 [facility] Comment: NOTE Chronic kidney [...] sult [facility] [address] [place] [address], documented in this encounter Visit Diagnoses Not on filedocumented in this encounter Care Teams Asphalt Tile Floor Layer Relationship Specialty Start Date End Date Pcp, No [address] [place] [address] PCP - General 12/02/20 02/08/23 Oren Pressley MD [address] [facility] [address] [place] [address] PCP - General Internal Medicine 02/09/23 Sima Trejo MD [address] [address] Medical Oncologist Hematology and Oncology 08/02/23 documented as of this encounter
--- OUTSIDE RECORDS SUMMARY | 2025-03-13 10:37 | XMS_ITS | Encounter Summary ---
Author Organization Healthcare Address [address] [place] [address] Care Team Providers Care Transcription Manager Name Role Phone Pcp, No Primary Care Provider Oren Hull MD Primary Care Provider [phone] Sima Trejo MD Unavailable [phone] Encounter Details Date Type Department Care Team (Late st Contact Info) Description 02/17/2022 Orders Only [facility] [address] [place] [address] Sima Trejo MD [address] [address] Social History Tobacco Use Types [...] Description 04/05/2025 7:45 AM EST Office Visit [facility] [address] [place] [address] 04/05/2025 8:15 AM EST Office Visit [facility] [address] [place] [address] Sima Trejo MD [address] [address] 04/05/2025 8:30 AM EST Infusion [facility] [place] [address] documented as of this encounter Procedures Procedure Name Priority Date/Time Associated Diagnosis Comments COMPREHENSIVE METABOLIC PANEL, PLASMA Routine 02/17/2022 12:42 PM EDT documented in this encounter Results * (ABNORMAL) Comprehensive Metabolic Panel, Plasma (02/17/2022 12:42 PM EDT) External Glucose 98 74 - 100 mg/dL [facility] External BUN 21(H) 6 - 20 mg/dL [facility] External Creatinine Blood 1.34(H) 0.50 - 0.95 mg/dL [facility] External BUN/Creat Ratio 16 10 - 20 (calc) [facility] External Sodium 138 136 - 145 mmol/L [facility] External Potassium 4.0 3.4 - 5.0 mmol/L [facility] External Chloride 103 98 - 107 mmol/L [facility] External Carbon Dioxide 24 22 - 31 mmol/L [facility] External Anion Gap (AG) 11 7 - 25 (calc) [facility] External Calcium 9.1 8.6 - 10.2 mg/dL [facility] External Total Protein 6.9 6.4 - 8.3 g/dL [facility] External Albumin 4.2 3.5 - 5.2 g/dL [facility] External Globulin 2.7 1.5 - 4.5 g/dL (calc) [facility] External Albumin/Globulin Ratio 1.6 1.1 - 2.5 (calc) [facility] External Bilirubin Total 0.4 0.1 - 1.2 mg/dL [facility] External Alkaline Phosphatase 79 30 - 121 U/L [facility] External AST (SGOT) 17 0 - 32 U/L [facility] External ALT (SGPT) 15 0 - 33 U/L [facility] External Estimated GFR 40(A) >=60 [facility] Comment: NOTE New calculation for GFR (CKD-EPI 2020) is formulated without race adjustment factors at the recommendation of the National Kidney Foundation and [place] Society of Nephrology. This calculation has not been validated in women. For pediatric patients refer to https://www.kidney.org/professionals/KDOQI/gfr_calculatorPed 02/17/2022 12:4 2 PM EDT 02/17/2022 12:54 PM EDT us Sima Trejo MD LAB BLOOD ORDERABLES Final Re sult [facility] [address] [place] [address], documented in this encounter Visit Diagnoses Not on filedocumented in this encounter Care Teams Transcription Manager Relationship Specialty Start Date End Date Pcp, No [address] [place] [address] PCP - General 12/02/20 02/08/23 Oren Pressley MD [address] [place] [address] PCP - General Internal Medicine 02/09/23 Sima Trejo MD [address] [address] Medical Oncologist Hematology and Oncology 08/02/23 documented as of this encounter
--- OUTSIDE RECORDS SUMMARY | 2025-03-13 10:37 | XMS_ITS | Encounter Summary ---
Author Organization Healthcare Address [address] [place] [address] Care Team Providers Care Leasing Representative Name Role Phone Pcp, No Primary Care Provider Oren Hull MD Primary Care Provider Sima Trjeo MD Unavailable [phone] Encounter Details Date Type Department Care Team (Late st Contact Info) Description 08/04/2021 Orders Only [facility] [address] [facility] [place] [address] Sima Trejo MD [address] [address] Social History Tobacco Use Types [...] Visit [facility] [address] [place] [address] 04/05/2025 8:15 AM EST Office Visit [facility] [address] [place] [address] Sima Trejo MD [address] [address] 04/05/2025 8:30 AM EST Infusion [facility] [address] [place] [address] documented as of this encounter Procedures Procedure Name Priority Date/Time Associated Diagnosis Comments LACTATE DEHYDROGENASE, PLASMA Routine 08/04/2021 12:43 PM EDT documented in this encounter Results * Lactate Dehydrogenase, Plasma (08/04/2021 12:43 PM EDT) External LDH Lactate Dehydrogenase 187 135 - 233 U/L [facility] 08/04/2021 12:4 3 PM EDT 08/04/2021 1:07 PM EDT us Sima Trejo MD LAB BLOOD ORDERABLES Final Re sult Performing Organization Address City/State/[facility] Co de Phone Number [facility] [address] [place] [address], documented in this encounter Visit Diagnoses Not on filedocumented in this encounter Care Teams Leasing Representative Relationship Specialty Start Date End Date Pcp, No [address] [place] [address] PCP - General 12/02/20 02/08/23 Oren Pressley MD [address] [place] [address] PCP - General Internal Medicine 02/09/23 Sima Trejo MD [address] [address] Medical Oncologist Hematology and Oncology 08/02/23 documented as of this encounter
--- OUTSIDE RECORDS SUMMARY | 2025-03-13 10:37 | XMS_ITS | Encounter Summary ---
Author Organization Healthcare Address [address] [place] [address] Care Team Providers Care Bible Teacher Name Role Phone Pcp, No Primary Care Provider Oren Hull MD Primary Care Provider Sima Trejo MD Unavailable [phone] Encounter Details Date Type Department Care Team (Late st Contact Info) Description 06/02/2021 Orders Only [facility] [address] [place] [address] Sima Trejo MD [address] [address] Social History Tobacco Use Types [...] Description 04/05/2025 7:45 AM EST Office Visit [facility] [address] [place] [address] 04/05/2025 8:15 AM EST Office Visit [facility] [address] [place] [address] Sima Trejo MD [address] [address] 04/05/2025 8:30 AM EST Infusion [facility] [place] [address] documented as of this encounter Procedures Procedure Name Priority Date/Time Associated Diagnosis Comments CBC WITH AUTO DIFFERENTIAL Routine 06/02/2021 12:06 PM EST documented in this encounter Results * CBC and Differential (06/02/2021 12:06 PM EST) External WBC 7.1 3.8 - 10.8 K/uL [facility] External Red Blood Cell (RBC) 4.41 3.80 - 5.20 M/uL [facility] External Hemoglobin 13.6 12.0 - 16.0 G/DL [facility] External Hematocrit 40.9 35.0 - 47.0 % [facility] External MCV 93 80 - 100 fL [facility] External MCH 31 26 - 35 PG [facility] External MCHC 33 32 - 36 G/DL [facility] External RDW 14.6 11.0 - 15.0 % [facility] External Mean Platelet Volume 7.3 6.2 - 10.5 fL [facility] External Platelets 198 130 - 400 K/uL [facility] External Neutrophil# 4.1 1.6 - 8.4 K/uL [facility] External Lymphocyte# 2.1 0.4 - 5.1 K/uL [facility] External Absolute Monocyte (Abs [place]) 0.7 0.0 - 1.2 K/uL [facility] External Eosinophils# 0.1 0.0 - 0.8 K/uL [facility] External Baso# 0.1 0.0 - 0.3 K/uL [facility] External Neutrophils % 58.0 42.0 - 78.0 % [facility] External Lymphocyte % 30.1 11.0 - 47.0 % [facility] External Monocyte % 9.4 0.0 - 11.0 % [facility] External Eosinophil% 1.5 0.0 - 7.0 % [facility] External Basophil % 1.0 0.0 - 3.0 % [facility] External Nucleated RBC%-Auto 0.1 0.0 - 0.9 % [facility] External Nucleated RBC Absolute 0.01 Not Estab. K/uL [facility] 06/02/2021 12:0 6 PM EST 06/02/2021 12:41 PM EST Sima Trejo MD LAB BLOOD ORDERABLES Final Re sult [facility] [address] [place] [address], documented in this encounter Visit Diagnoses Not on filedocumented in this encounter Care Teams Bible Teacher Relationship Specialty Start Date End Date Pcp, No [address] [place] [address] PCP - General 12/02/20 02/08/23 Oren Pressley MD [address] [place] [address] PCP - General Internal Medicine 02/09/23 Sima Trejo MD [address] [address] Medical Oncologist Hematology and Oncology 08/02/23 documented as of this encounter
--- OUTSIDE RECORDS SUMMARY | 2025-03-13 10:37 | XMS_ITS | Encounter Summary ---
Author Organization [employer] ([place], [place], [place], [place], [place]) Address [address] [place] [address] Care Team Providers Care National Accounts Recruiter Name Role Phone Oren Corbin MD Primary Care Provider [phone] Encounter Details Date Type Department Care Team (Late st Contact Info) Description 05/16/2018 Transcribed Document [facility] Family Medicine [address] [place] [address] ProviderLaurel MD [address] [place] [address] Social History Tobacco Use Types Packs/Day Years Used Date Smoking Tobacco: Never Assessed Comments Unknown Sex and Gender Information Value Date Recorded Sex Assigned at Not on file Legal Sex Female 4:44 PM CDT Gender Identity Not on file Sexual Orientation Not on file documented as of this encounter Miscellaneous Notes * Cerner Conversion Note - Laurel ProviderMD - 05/16/2018 12:04 PM FINISHER PLATE [address] , [place] [address] Patient Copy Patient Information: Name: [facility] Current Date: 05/16/2018 12:04:39 : 1945 Patient [place]: [place] [address] Patient Attending Physician: TAMIKO NIETO MD-DMITRY Primary Care Provider: OREN CORBIN (REF)DELILAH Primary Care Provider Discharge Diagnosis: Atrial fibrillation Weight on Admission: 230 lb, 0 oz Comment: Follow-up Instructions: With: Address: When: GIOVANNI SHAH [address], [facility] [place] [id number] Business (1) 9:45 AM Discharge Instructions: Diet [...] you are awake and alert. ??? Take hqpz-upx-idhdaoj and prescription medicines only as told by [...] 01/24/2014 Document Revised: 09/07/2016 Document Reviewed: 07/25/2016 [employer] Interactive Patient Education ? 2017 [employer] Electrical Cardioversion, Care After This sheet [...] to help you relax (sedative). ??? Take vpkj-opj-ieljgdj and prescription medicines only as told by [...] 01/24/2014 Document Revised: 11/06/2016 Document Reviewed: 10/09/2016 [employer] Interactive Patient Education ? 2017 [employer]. Medication Leaflets: amiodarone (oral) (A mi [place] [...] may report side effects to FDA at 8-749-HIN-1029. What other drugs will affect amiodarone? Sometimes [...] can affect amiodarone. This includes prescription and yzjt-mzh-ldqzhww medicines, vitamins, and herbal products. Not all [...] to ensure that the information provided by [employer]. ('[employer]') is accurate, up-to-date, and complete, but no guarantee is made to that effect. Drug information contained herein may be time sensitive. [employer] information has been compiled for use by healthcare practitioners and consumers in the [place] and therefore [employer] does not warrant that uses outside of the [place] are appropriate, unless specifically indicated otherwise. [employer]'s drug information does not endorse drugs, diagnose patients or recommend therapy. [employer] drug information is an informational resource designed [...] effective or appropriate for any given patient. [employer] does not assume any responsibility for any aspect of healthcare administered with the aid of information [employer] provides. The information contained herein is not intended to cover all possible uses, directions, precautions, warnings, drug interactions, allergic reactions, or adverse effects. If you have questions about the drugs you are taking, check with your doctor, nurse or pharmacist. Copyright 6524-6721 Annmarie Mcmahan [facility]. Version: 7.01. Revision Date: 02/22/2018. CIGARETTE SMOKING: The facts are clear, cigarette smoking will shorten your life. Smoking can cause many illnesses along the way. As a healthcare provider, we recommend that you stop smoking. Assistance with quitting is available by contacting 7-318-CHTV-NOW. This is a free resource providing counseling, [...] Be sure to sign up for the [employer] patient portal, which gives you 09/11 access to your medical information ??? including these discharge instructions ??? using your computer, smartphone, or tablet. Just go to [employer] to get started. Questions? Call . [facility] would like to thank you for allowing us to assist you with your healthcare needs. CARL Hopson PRISCILLA SMI, (or product support sales representative) have received the above patient education materials/instructions and have verbalized understanding: Patient Signature _ Date/Time Patient Steel Hanger Signature (if needed) Date/Time Clinician/Hospital Steel Hanger Signature (if needed) Date/Time Electronically signed by Interface, [facility] Conversion Mosaic Tile Maker Cerner at 08/07/2022 2:27 PM CDT documented in this encounter Plan of Treatment Not on file documented as of this encounter Visit Diagnoses Not on filedocumented in this encounter Care Teams National Accounts Recruiter Relationship Specialty Start Date End Date Oren Corbin MD [address] [place] [address] [place] [address] PCP - General Adolescent Medicine 05/17/23 documented as of this encounter
--- OUTSIDE RECORDS SUMMARY | 2025-03-13 10:37 | XMS_ITS | Encounter Summary ---
Author Organization Healthcare Address [address] [place] [address] Care Team Providers Care Cement Railroad Car Loader Name Role Phone Pcp, No Primary Care Provider Oren Hull MD Primary Care Provider Sima Trejo MD Unavailable [phone] Encounter Details Date Type Department Care Team (Late st Contact Info) Description 03/31/2021 Orders Only [facility] [address] [place] [address] Sima Trejo MD [address] [address] Social History Tobacco Use Types [...] Description 04/05/2025 7:45 AM EST Office Visit [facility] [address] [place] [address] 04/05/2025 8:15 AM EST Office Visit [facility] [address] [place] [address] Sima Trejo MD [address] [address] 04/05/2025 8:30 AM EST Infusion [facility] [address] [place] [address] documented as of this encounter Procedures Procedure Name Priority Date/Time Associated Diagnosis Comments LACTATE DEHYDROGENASE, PLASMA Routine 03/31/2021 12:13 PM EST documented in this encounter Results * Lactate Dehydrogenase, Plasma (03/31/2021 12:13 PM EST) External LDH Lactate Dehydrogenase 177 135 - 233 U/L [facility] 03/31/2021 12:1 3 PM EST 03/31/2021 1:17 PM EST us Sima Trejo MD LAB BLOOD ORDERABLES Final Re sult [facility] [address] [place] [address], documented in this encounter Visit Diagnoses Not on filedocumented in this encounter Care Teams Cement Railroad Car Loader Relationship Specialty Start Date End Date Pcp, No [address] [place] [address] PCP - General 12/02/20 02/08/23 Oren Pressley MD [address] [place] [address] PCP - General Internal Medicine 02/09/23 Sima Trejo MD [address] [address] Medical Oncologist Hematology and Oncology 08/02/23 documented as of this encounter
--- OUTSIDE RECORDS SUMMARY | 2025-03-13 10:37 | XMS_ITS | Encounter Summary ---
Author Organization [employer] ([place], [place], [place], [place], [place]) Address [address] [place] [address] Care Team Providers Care Chemical Processing Equipment Repairer Name Role Phone Oren Pressley MD Primary Care Provider [phone] Encounter Details Date Type Department Care Team (Late st Contact Info) Description 05/16/2018 Transcribed Document [facility] Family Medicine [facility] [place] [address] ProviderLaurel MD [address] [place] [address] [id number] Social History Tobacco Use Types Packs/Day Years Used Date Smoking Tobacco: Never Assessed Comments Unknown Sex and Gender Information Value Date Recorded Sex Assigned at Not on file Legal Sex Female 4:44 PM CDT Gender Identity Not on file Sexual Orientation Not on file documented as of this encounter Miscellaneous Notes * Cerner Conversion Note - Historical ProviderMD - 05/16/2018 8:38 AM DIRECTOR EMBALMER Pre Procedure Adult Entered On: 05/16/2018 8:45 EST Performed On: 05/16/2018 8:38 EST by KASSIDY SAWYER RN Height and Weight, Clinical Dosing Height Source : Stated Height Entry Format : [place] Height, Feet : 5 ft(Converted to: 152 cm, 60 Inch) Height, Inches : 5.5 Inch(Converted to: 0 ft 6 Inch, 13.97 cm) Clinical Height : 166.37 cm Weight Source : Standing scale Weight Entry Format : [place] Clinical Dosing Weight : 104.55 kg Weight, Pounds : 230 lb Body Surface Area (BSA) : 2.11 m2 Body Mass Index : 37.8 kg/m2 (HI) [place] Body Weight : 58 kg KASSIDY SAWYER [...] Son Legal Guardian : No Support Person/Patient Hospital Account Liaison : Yes Want Family/Rep/Phys Notified of Admit : No Emergency Contact #1 : [place] Emergency Contact #1 Emergency Contact #1 Relationship : son Emergency Contact #2 : n/a Emergency Contact #2 Phone Number : n/a Emergency Contact #2 Relationship : n/a Chief Complaint : CV Information Obtained From : Patient Primary Language : Emirati Preferred Communication Mode : Verbal Communication Barrier [...] Scale Risk Level : 0-24 Low Risk [place] Fall Interventions : Adequate lighting, Assistive devices [...] the text rendition version of the form. Electronically signed by Rayne Zamudio Conversion Math And Sciences Department Chair Cerner at 08/07/2022 2:20 PM CDT documented in this encounter Plan of Treatment Not on file documented as of this encounter Visit Diagnoses Not on filedocumented in this encounter Care Teams Chemical Processing Equipment Repairer Relationship Specialty Start Date End Date Oren Pressley MD [address] [place] [address] PCP - General Adolescent Medicine 05/17/23 documented as of this encounter
--- OUTSIDE RECORDS SUMMARY | 2025-03-13 10:37 | XMS_ITS | Encounter Summary ---
Author Organization [employer] ([place], [place], [place], [place], [place]) Address [address] [place] [address] Care Team Providers Care Deputy County Clerk Name Role Phone Oren Pressley MD Primary Care Provider + [phone] Encounter Details Date Type Department Care Team (Late st Contact Info) Description 05/16/2018 Transcribed Document [facility] [place] [address] ProviderLaurel MD [address] [place] [id number] Social History Tobacco Use Types Packs/Day Years Used Date Smoking Tobacco: Never Assessed Comments Unknown Sex and Gender Information Value Date Recorded Sex Assigned at Not on file Legal Sex Female 4:44 PM CDT Gender Identity Not on file Sexual Orientation Not on file documented as of this encounter Miscellaneous Notes * Cerner Conversion Note - Laurel Mayer MD - 05/16/2018 12:04 PM MANAGER BANKING Patient Education Materials Follows:Medicine Electrical Cardioversion, Care [...] to help you relax (sedative). ??? Take tbib-guy-xiliqls and prescription medicines only as told by [...] 01/24/2014 Document Revised: 11/06/2016 Document Reviewed: 10/09/2016 [employer] Interactive Patient Education ? 2017 [employer]. Pharmacology Moderate Conscious Sedation, Adult, Care After [...] you are awake and alert. ??? Take ibxy-wbe-lbhxzrd and prescription medicines only as told by [...] 01/24/2014 Document Revised: 09/07/2016 Document Reviewed: 07/25/2016 [employer] Interactive Patient Education ? 2017 [employer] documented in this encounter Plan of Treatment Not on file documented as of this encounter Visit Diagnoses Not on filedocumented in this encounter Care Teams Deputy County Clerk Relationship Specialty Start Date End Date Oren Pressley MD [address] [place] [address] PCP - General Adolescent Medicine 05/17/23 documented as of this encounter
--- OUTSIDE RECORDS SUMMARY | 2025-03-13 10:37 | XMS_ITS | Encounter Summary ---
Author Organization Healthcare Address [address] [place] [address] Care Team Providers Care Inspector Watch Parts Name Role Phone Pcp, No Primary Care Provider Oren Hull MD Primary Care Provider Sima Trejo MD Unavailable [phone] Encounter Details Date Type Department Care Team (Late st Contact Info) Description 12/02/2020 Orders Only [facility] [address] [place] [address] Sima Trejo MD [address] [address] Social History Tobacco Use Types [...] Description 04/05/2025 7:45 AM EST Office Visit [facility] [address] [place] [address] 04/05/2025 8:15 AM EST Office Visit [facility] [address] [place] [address] Sima Trejo MD [address] [address] 04/05/2025 8:30 AM EST Infusion [facility] [place] [address] documented as of this encounter Procedures Procedure Name Priority Date/Time Associated Diagnosis Comments COMPREHENSIVE METABOLIC PANEL, PLASMA Routine 12/02/2020 12:56 PM EDT documented in this encounter Results * (ABNORMAL) Comprehensive Metabolic Panel, Plasma (12/02/2020 12:56 PM EDT) External Glucose 101(H) 74 - 100 mg/dL [facility] External BUN 15 6 - 20 mg/dL [facility] External Creatinine Blood 1.37(H) 0.50 - 0.95 mg/dL [facility] External BUN/Creat Ratio 11 10 - 20 (calc) [facility] External Sodium 133(L) 136 - 145 mmol/L [facility] External Potassium 4.4 3.4 - 5.0 mmol/L [facility] External Chloride 96(L) 98 - 107 mmol/L [facility] External Carbon Dioxide 22 22 - 31 mmol/L [facility] External Anion Gap (AG) 15 7 - 25 (calc) [facility] External Calcium 9.2 8.6 - 10.2 mg/dL [facility] External Total Protein 7.0 6.4 - 8.3 g/dL [facility] External Albumin 4.2 3.5 - 5.2 g/dL [facility] External Globulin 2.8 1.5 - 4.5 g/dL (calc) [facility] External Albumin/Globulin Ratio 1.5 1.1 - 2.5 (calc) [facility] External Bilirubin Total 0.6 0.1 - 1.2 mg/dL [facility] External Alkaline Phosphatase 59 35 - 106 U/L [facility] External AST (SGOT) 20 0 - 32 U/L [facility] External ALT (SGPT) 13 0 - 33 U/L [facility] External EGFR (If AFR/AM) 43(A) >=60 [facility] External Estimated GFR 37(A) >=60 [facility] Comment: NOTE Chronic kidney [...] BLOOD ORDERABLES Final Re sult [facility] [address] [place] [address], documented in this encounter Visit Diagnoses Not on filedocumented in this encounter Care Teams Inspector Watch Parts Relationship Specialty Start Date End Date Pcp, No [address] [place] [address] PCP - General 12/02/20 02/08/23 Oren Pressley MD [address] [facility] [address] [place] [address] PCP - General Internal Medicine 02/09/23 Sima Trejo MD [address] [address] Medical Oncologist Hematology and Oncology 08/02/23 documented as of this encounter
--- OUTSIDE RECORDS SUMMARY | 2025-03-13 10:37 | XMS_ITS | Encounter Summary ---
Author Organization [employer] ([place], [place], [place], [place], [place]) Address [address] [place] [address] Care Team Providers Care Reverse Unit Operator Name Role Phone Oren Pressley MD Primary Care Provider [phone] Encounter Details Date Type Department Care Team (Late st Contact Info) Description 06/22/2019 Transcribed Document [facility] [place] [address] ProviderLaurel MD [address] [place] [address] [id number] Social History Tobacco Use Types Packs/Day Years Used Date Smoking Tobacco: Never Assessed Comments Unknown Sex and Gender Information Value Date Recorded Sex Assigned at Not on file Legal Sex Female 4:44 PM CDT Gender Identity Not on file Sexual Orientation Not on file documented as of this encounter Miscellaneous Notes * Cerner Conversion Note - Historical ProviderMD - 06/22/2019 12:29 PM SENIOR IT BUSINESS ANALYST Nursing Discharge Summary Entered On: 06/22/2019 12:29 [...] 06/22/2019 12:29 EST Electronically signed by [facility] Conversion Grooving Machine Operator Cerner at 08/07/2022 2:09 PM CDT documented in this encounter Plan of Treatment Not on file documented as of this encounter Visit Diagnoses Not on filedocumented in this encounter Care Teams Reverse Unit Operator Relationship Specialty Start Date End Date Oren Pressley MD [address] [place] [address] PCP - General Adolescent Medicine 05/17/23 documented as of this encounter
[2025-03-13 11:23] LABS: PHA INR Fingerstick 2.2 (0.9-1.1)
== END 2025-03-13 11:26 ==
LOC: ACC 10:32
PROVIDERS: PCP Nurse Practitioner Family; Visit Provider Internal Medicine Adolescent Medicine
DX: Z79.01 Long term (current) use of anticoagulants (principal)
CPT/HCPCS: 85610; 99211; G0463

== ENCOUNTER 2025-04-08 21:43 | Emergency (ER) | payer MEDICARE, SELFPAY ==
--- OUTSIDE RECORDS SUMMARY | 2025-03-06 12:30 | XMS_ITS | Encounter Summary ---
Author Organization [facility] Address [address] 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) Sima Trejo MD [address] [place] [phone] Phone: tel: fax: Sima Trejo MD [address] [place] [address] Phone: tel: fax: Referral ID Status Reason Start Date Expiration Date V isits Requested Visits Authorized [id number] Authorized 11/14/2024 05/16/2026 1 14 Encounter Details Date Type Department Care Team (Late st Contact Info) Description 03/06/2025 12:30 PM EST Office Visit [facility] at [facility] [address] [place] [address] Sima Trejo MD [address] [place] [phone] 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 [...] Trejo MD - 03/06/2025 12:30 PM EST [facility] at [facility] HEMATOLOGY/ONCOLOGY FOLLOW UP Shea Iverson [...] and LU, pt had initiated [facility]/05 through 03/09 but discontinued secondary to cardiac issues. She is accompanied by her son. Pt was seen in local ER on 12/18/[address] findings concerning for tongue mass [facility]. Pt is s/p 02/15/23 right tonsillectomy of [...] recommendation of the National Kidney Foundation and [place] [employer] of Nephrology. This calculation has not [...] undergoing Urate Lowering Therapy (ULT), the 2012 [place] [employer] Guidelines for Management of Gout recommend a target uric acid level of < 6 mg/dL in all patients, or lower in certain circumstances. Arthritis Care and Research Vol 64 No 10, Jan. 2012 [place] [employer] Orders Only on 02/06/2025 [...] recommendation of the National Kidney Foundation and [place] Society of Nephrology. This calculation has not [...] Care Team (Late st Contact Info) Description 05/03/2025 8:00 AM EST Office Visit [facility] at [facility] [address] [place] [address] 05/03/2025 9:00 AM EST Office Visit [facility] at [facility] [address] [place] [address] Sima Trejo MD [address] [place] [phone] 05/03/2025 9:15 AM EST Infusion [facility] [address] [place] [address] documented as of this encounter Results * (ABNORMAL) Comprehensive metabolic panel (04/05/2025 7:43 AM EST) External Glucose 125(H) 74 - 100 mg/dL 04/05/2025 8:41 AM EST [facility] External BUN 17 6 - 20 mg/dL 04/05/2025 8:41 AM [facility] External Creatinine Blood 1.44(H) 0.50 - 0.95 mg/dL 04/05/2025 8:41 AM EST [facility] External BUN/Creat Ratio 12 10 - 20 (calc) 04/05/2025 8:41 AM [facility] External Sodium 137 136 - 145 mmol/L 04/05/2025 8:41 AM [facility] External Potassium 4.0 3.4 - 5.0 mmol/L 04/05/2025 8:41 AM [facility] External Chloride 102 98 - 107 mmol/L 04/05/2025 8:41 AM [facility] External Carbon Dioxide (CO2) 23 22 - 31 mmol/L 04/05/2025 8:41 AM [facility] External Anion Gap (AG) 12 7 - 25 (calc) 04/05/2025 8:41 AM [facility] External Calcium 9.0 8.6 - 10.2 mg/dL 04/05/2025 8:41 AM [facility] External Total Protein 6.4 6.4 - 8.3 g/dL 04/05/2025 8:41 AM [facility] External Albumin 4.0 3.5 - 5.2 g/dL 04/05/2025 8:41 AM [facility] External Globulin 2.4 1.5 - 4.5 025 8:41 AM [facility] External Albumin/Globulin Ratio 1.7 1.1 - 2.5 (calc) 04/05/2025 8:41 AM [facility] External Bilirubin Total 0.7 0.1 - 1.0 mg/dL 04/05/2025 8:41 AM [facility] Comment:NOTE: New reference range. External Alkaline Phosphatase 72 30 - 121 U/L 04/05/2025 8:41 AM EST [facility] External AST (SGOT) 18 0 - 32 U/L 04/05/2025 8:41 AM EST [facility] External ALT (SGPT) 12 0 - 33 U/L 04/05/2025 8:41 AM EST [facility] External Estimated GFR 36(A) >=60 04/05/2025 8:41 AM EST [facility] Comment: NOTE New calculation for GFR (CKD-EPI 2020) is formulated without race adjustment factors at the recommendation of the National Kidney Foundation and [place] Society of Nephrology. This calculation has not been validated in women. For pediatric patients refer to https://www.kidney.org/professionals/KDOQI/gfr_calculatorPed Blood Venous blood specimen / Unknown 04/05/2025 7:43 AM EST 04/05/2025 8:14 AM EST us Sima Trejo MD LAB BLOOD ORDERABLES Final Re sult [facility] [address] [place] [address], * (ABNORMAL) CBC and differential (04/05/2025 7:43 AM EST) External WBC 5.5 3.8 - 10.8 10*3/uL 04/05/2025 8:28 AM EST [facility] External Red Blood Cell (RBC) 3.44(L) 3.80 - 5.20 10*6/uL 04/05/2025 8:28 AM EST [facility] External Hemoglobin 11.2(L) 12.0 - 16.0 g/dL 04/05/2025 8:28 AM EST [facility] External Hematocrit 33.2(L) 35.0 - 47.0 % 04/05/2025 8:28 AM EST [facility] External MCV 97 80 - 100 fL 04/05/2025 8:28 AM EST [facility] External MCH 33 26 - 35 pg 04/05/2025 8:28 AM EST [facility] External MCHC 34 32 - 36 g/dL 04/05/2025 8:28 AM EST [facility] External RDW 15.9(H) 11.0 - 15.0 % 04/05/2025 8:28 AM EST [facility] External Mean Platelet Volume 8.1 6.2 - 10.5 fL 04/05/2025 8:28 AM [facility] External Platelet Count (Plt) 127(L) 150 - 400 10*3/uL 04/05/2025 8:28 AM EST [facility] External Neutrophil# 3.5 1.6 - 8.4 10*3/uL 04/05/2025 8:28 AM [facility] External Lymphocyte# 1.3 0.4 - 5.1 10*3/uL 04/05/2025 8:28 AM [facility] External Absolute Monocyte (Abs [place]) 0.5 0.0 - 1.2 10*3/uL 04/05/2025 8:28 AM [facility] External Eosinophils# 0.2 0.0 - 0.8 10*3/uL 04/05/2025 8:28 AM [facility] External Baso# 0.1 0.0 - 0.3 10*3/uL 04/05/2025 8:28 AM [facility] External Neutrophils % 64.0 42.0 - 78.0 % 04/05/2025 8:28 AM [facility] External Lymphocyte % 23.0 11.0 - 47.0 % 04/05/2025 8:28 AM [facility] External Monocyte % 8.8 0.0 - 11.0 % 04/05/2025 8:28 AM [facility] External Eosinophil% 3.1 0.0 - 7.0 % 04/05/2025 8:28 AM [facility] External Basophil % 1.1 0.0 - 3.0 % 04/05/2025 8:28 AM [facility] External Nucleated RBC%-Auto 0.1 0.0 - 0.9 % 04/05/2025 8:28 AM [facility] External Nucleated RBC Absolute 0.00 Not Estab. 10*3/uL 04/05/2025 8:28 AM [facility] Blood Venous blood specimen / Unknown 04/05/2025 7:43 AM EST 04/05/2025 8:14 AM EST us Sima Trejo MD LAB BLOOD ORDERABLES Final Re sult [facility] [address] [place] [address], documented in this encounter Visit Diagnoses Diagnosis 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)- Primary Chronic lymphoid leukemia, in relapse documented in this encounter Additional Health Concerns Assessment Noted Time PHQ-9 Depression Total Score: 5 11/15/19 25 9:00 AM EDT A fall risk assessment has been complete d for the patient 08/08/2024 2:12 PM EDT documented as of this encounter Care Teams Water Jet Operator Relationship Specialty Start Date End Date Oren Pressley MD [facility] [place] [address] PCP - General Internal Medicine 02/09/23 Sima rTejo MD [address] [address] Medical Oncologist Hematology and Oncology 08/02/23 documented as of this encounter
--- OUTSIDE RECORDS SUMMARY | 2025-03-06 12:45 | XMS_ITS | Encounter Summary ---
Author Organization Healthcare Address [address] 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) Sima [facility]jo MD [facility] [address] [address] Phone: tel: fax: Sima Trejo MD [facility] [address] Phone: tel: fax: Referral ID Status Reason Start Date Expiration Date V isits Requested Visits Authorized [id number] Authorized 11/14/2024 05/16/2026 1 14 Encounter Details Date Type Department Care Team (Late st Contact Info) Description 03/06/2025 12:45 PM EST Infusion [facility] at [facility] [address] [place], [place] [phone] 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) [...] Sign Reading Time Taken Comments Blood Pressure 117/73 03/06/2025 1:29 PM EST Pulse 61 03/06/2025 1:29 PM EST Temperature 36.6 C (97.9 F) 03/06/2025 1:29 PM EST Respiratory Rate - - Oxygen Saturation 92% 03/06/2025 1:29 PM EST Inhaled Oxygen Concentration - - Weight 90.1 kg (198 lb 10.2 oz) 03/06/2025 1:29 PM EST Height 167.6 cm (5' 5.98 ) 03/06/2025 1:29 PM ES T Body Mass Index 32.08 03/06/2025 1:29 PM EST documented in this encounter Functional Status * Calculated C-SSRS Risk Score (Lifetime/Recent) Answer Date of Assessment Author No Risk Indicated 03/06/2025 4:00 PM EST Isabelle Stanton RN * Question Answer Date of Assessment Author 1. Wish to be (Past 1 Month) No 03/06/2025 4:00 PM EST Isabelle Stanton RN 2. Non-Specific Active Suici rachana Thoughts (Past 1 Month) No 03/06/2025 4:00 PM EST French Stanton RN 6. Suicidal Behavior (Lifetime) No 4:00 PM EST Isabelle Stanton RN documented as of this encounter Plan of Treatment Upcoming Encounters Date Type Department Care Team (Late st Contact Info) Description 05/03/2025 8:00 AM EST Office Visit [facility] at [address] [address] 05/03/2025 9:00 AM EST Office Visit [facility] at [address] [phone] Sima Trejo MD [address] [place] [address] 05/03/2025 9:15 AM EST Infusion [facility] at [facility] [address] [place] [address] documented as of this encounter Visit Diagnoses Diagnosis 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)- Primary Chronic lymphoid leukemia, in relapse documented in this encounter Administered Medications Inactive Administered Medications - up to 3 most recent administrations Medication Order MAR Action Action Date Dose Rate Site acetaminophen (Tylenol) tablet 650 mg 650 mg, Oral, Once, 1 dose, On Wed03/06/25 at 1345, RoutineIndications: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) Given 03/06/2025 1:38 PM EST 650 mg bendamustine (Vivimusta) 97.5 mg in sodium chloride 0.9 % 250 mL chemo IVPB 97.5 mg (50 mg/m2 1.95 m2 Treatment Plan BSA from Recorded weight), Intravenous, at 896.7 mL/hr, Administer over 20 Minutes, Once, Hazardous Drug-Tier 1 Precautions. Dispose in BLACK Hazardous Waste Container. Chemotherapy: refer to A14-065., On Wed03/06/25 at 1415, For 1 doseIndications: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) New Bag 03/06/2025 2:27 PM EST 97.5 mg 896.7 mL/hr dexamethasone (Decadron) tablet 12 mg 12 mg, Oral, Once, 1 dose, On Wed03/06/25 at 1345, RoutineIndications: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) Given 03/06/2025 1:38 PM EST 12 mg diphenhydrAMINE (Benadryl) tablet 50 mg 50 mg, Oral, Once, 1 dose, On Wed03/06/25 at 1345, RoutineIndications: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) Given 03/06/2025 1:38 PM EST 50 mg ondansetron ODT (Zofran-ODT) disintegrating tablet 16 mg 16 mg, Oral, Once, 1 dose, On e 03/06/25 at 1345, RoutineIndications: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) Given 03/06/2025 1:38 PM EST 16 mg riTUXimab-arrx (Riabni) 700 mg in sodium chloride 0.9 % 500 mL IVPB 700 mg (rounded from 731.25 mg = 375 mg/m2 1.95 m2 Treatment Plan BSA from Recorded weight), Intravenous, Once, Concentration: 1.1 mg/mL (ATV: 615 mL) Rapid Rate: 273 mg/df=841 mL/hr for 30 min (VTBI: 124 mL) 555 mg/hk=835 mL/hr for 60 min (VTBI: 491 mL) Refer to hypersensitivity protocol for rate changes if intolerance or adverse reaction. Specific administration requirements refer to A14-065. Refer to hypersensitivity protocol for rate changes if intolerance or adverse reaction, On Wed03/06/25 at 1415, For 1 doseIndications: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 ([facility]) Rate/Dose Change 03/06/2025 3:25 PM EST 496 mL/hr New Bag 03/06/2025 2:54 PM EST 700 mg sodium chloride 0.9 % flush 10 mL 10 mL, Intravenous, As needed, Starting on Wed03/06/25 at 1330, Until Wed03/06/25 at 1857, Routine, line care, Flush Before and After EVERY dose of medication.Indications: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 ([facility]) Given 03/06/2025 2:25 PM EST 10 mL sodium chloride 0.9 % flush 20 mL 20 mL, Intravenous, Every 1 hour PRN, Starting on Wed03/06/25 at 1330, Until 03/06/25 at 1857, Routine, line care, After blood draws and if any blood seen in tubing.Indications: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) Given 03/06/2025 4:30 PM EST 20 mL Given 03/06/2025 2:49 PM EST 20 mL documented in this encounter Additional Health Concerns Assessment Noted Time PHQ-9 Depression Total Score: 5 11/15/19 9:00 AM EDT A fall risk assessment has been complete d for the patient 08/08/2024 2:12 PM EDT documented as of this encounter Care Teams Workers Compensation Attorney Relationship Specialty Start Date End Date Oren Pressley MD [address] [place] [address] PCP - General Internal Medicine 02/09/23 Sima Trejo MD [address] [address] Medical Oncologist Hematology and Oncology 08/02/23 documented as of this encounter
--- OUTSIDE RECORDS SUMMARY | 2025-04-05 08:15 | XMS_ITS | Encounter Summary ---
Author Organization Healthcare Address [address] 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) Social History Tobacco Use Types Packs/Day [...] Sign Reading Time Taken Comments Blood Pressure 119/72 04/05/2025 8:05 AM EST Pulse 78 04/05/2025 8:05 AM EST Temperature 36.8 C (98.2 F) 04/05/2025 8:05 AM EST Respiratory Rate - - Oxygen Saturation 98% 04/05/2025 8:05 AM EST Inhaled Oxygen Concentration - - Weight 90.3 kg (199 lb) 04/05/2025 8:05 AM EST Height 165.1 cm (5' 5 ) 04/05/2025 8:05 AM EST Body Mass Index 33.12 04/05/2025 8:05 AM EST documented in this encounter Miscellaneous Notes * Progress Notes - Sima Trejo MD - 04/05/2025 8:15 AM EST [facility] HEMATOLOGY/ONCOLOGY FOLLOW UP Shea Chaparro Kishor [...] IVPB, 90 mg/m2 =175 mg, Intravenous, Once, 4 of 5 cycles Dose modification: 50 mg/m2 (original dose 90 mg/m2, Cycle 3, Reason: Toxicity/Complication, Comment: thrombocytopenia) Administration: 175 mg (11/14/2024), 97.5 mg (01/09/2025), 97.5 mg (02/06/2025), 97.5 mg (03/06/2025) riTUXimab-arrx (Riabni) 700 mg in sodium chloride 0.9 % 500 mL IVPB, 375 mg/m2 = 700 mg, Intravenous, Once, 5 of 6 cycles Administration: 700 mg (11/14/2024), 700 mg (12/12/2024), 700 mg (01/09/2025), 700 mg (02/06/2025), 700 mg (03/06/2025) Treatment Details Treatment goal [No plan goal] [...] and LU, pt had initiated imbruvica w ithout difficulty from 01/05 through 03/09 but discontinued secondary to cardiac issues. She is accompanied by her son. Pt was seen in local ER on 12/18/[address] findings concerning for tongue mass [facility]. Pt is s/p 02/15/23 right tonsillectomy [...] disease burden. Increase growth of RUL lesion. Pt comments she was very emotional last week and is concerned of RUL lesion. The following portions of [...] for extremity weakness and gait problem. Psychiatric/Behavioral: Positive for depression. Physical Exam: Vital Signs for this encounter: BSA: 2.04 meters squared Visit Vitals BP 119/72 Pulse 78 Temp 36.8 ??C (98.2 ??F) (Temporal) Ht 1.651 m (5' 5 ) Wt 90.3 kg (199 lb) SpO2 98% BMI 33.12 kg/m?? Smoking Status Former BSA 2.04 m?? Physical Exam Vitals reviewed. HENT: Head: Normocephalic. Mouth/Throat: Mouth: Mucous membranes are moist. Eyes: Extraocular Movements: Extraocular movements intact. Cardiovascular: Rate and Rhythm: Normal rate. Heart sounds: Normal heart sounds. Pulmonary: Effort: Pulmonary effort is normal. Abdominal: Palpations: Abdomen is soft. Neurological: General: No focal deficit present. Mental Status: She is alert. Psychiatric: Mood and Affect: Mood normal. Performance Status: (2) Ambulatory and capable of self care, unable to carry out work activity, up and about > 50% or waking hours Results: No visits with results within 1 Month(s) from this visit. Latest known visit with results is: Orders Only on 03/06/2025 Component Date Value [...] recommendation of the National Kidney Foundation and [place] [employer]ph[employer]. This calculation has not [...] undergoing Urate Lowering Therapy (ULT), the 2012 [place] [employer] Guidelines for Management of Gout recommend a target uric acid level of < 6 mg/dL in all patients, or lower in certain circumstances. Arthritis Care and Research Vol 64 No , Jan. 2011 [place] [employer] No results found. Assessment/Plan 1. 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 Pt's labs are reviewed. She is off all therapies. WBC is elevated but has no symptomatic cytopoenias and lymphadenopathy. Pt is s/p right tonsillectomy with pathology c/w CLL. She was intolerant of imbruvica. We will continue Cycle #6 rituxan and holding bendamustine day 2 given [...] growth we will have her see pulmonary. Pt is 04/20/25 to have another biopsy. 5. HTN. FU PCP. documented in this encounter Plan of Treatment Upcoming Encounters Date Type Department Care Team (Late st Contact Info) Description 05/03/2025 8:00 AM EST Office Visit [facility] [place] [place] [phone] 05/03/2025 9:00 AM EST Office Visit [facility] at [address] [phone] [place] [address] [place] [phone] 05/03/2025 9:15 AM EST Infusion [facility] at [address] [phone] documented as of this encounter Visit Diagnoses Diagnosis 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) Chronic lymphoid leukemia, in relapse documented in this encounter Additional Health Concerns Assessment Noted Time PHQ-9 Depression Total Score: 5 11/15/19 25 9:00 AM EDT A fall risk assessment has been complete d for the patient 04/05/2025 8:05 AM EST documented as of this encounter Care Teams Chemicals Fermentation Operator Relationship Specialty Start Date End Date Oren Pressley MD [address] [place] [address] PCP - General Internal Medicine 02/09/23 [place] [address] [place] [phone] Medical Oncologist Hematology and Oncology 08/02/23 documented as of this encounter
--- OUTSIDE RECORDS SUMMARY | 2025-04-05 08:30 | XMS_ITS | Encounter Summary ---
Author Organization Healthcare Address [address] 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) Sim[facility]jo [facility] [address] [address] Phone: tel: fax: Sima Trejo MD [facility] [address] Phone: tel: fax: Referral ID Status Reason Start Date Expiration Date V isits Requested Visits Authorized [id number] Authorized 11/14/2024 05/16/2026 1 14 Encounter Details Date Type Department Care Team (Late st Contact Info) Description 04/05/2025 8:30 AM EST Infusion [facility] [address] [place] [phone] 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) [...] Time Taken Comments Blood Pressure 119/72 04/05/2025 9:17 AM EST Pulse 78 04/05/2025 9:17 AM EST Temperature 36.8 C (98.2 F) 04/05/2025 9:17 AM EST Respiratory Rate - - Oxygen Saturation 98% 04/05/2025 9:17 AM EST Inhaled Oxygen Concentration - - Weight 90.3 kg (199 lb) 04/05/2025 9:17 AM EST Height 165.1 cm (5' 5 ) 04/05/2025 9:17 AM EST Body Mass Index 33.12 04/05/2025 9:17 AM EST documented in this encounter Functional Status * Calculated C-SSRS Risk Score (Lifetime/Recent) Answer Date of Assessment Author No Risk Indicated 04/05/2025 2:00 PM EST Isabelle Stanton RN * Question Answer Date of Assessment Author 1. Wish to be (Past 1 Month) No 04/05/2025 2:00 PM EST Isabelle Stanton RN 2. Non-Specific Active Suici rachana Thoughts (Past 1 Month) No 04/05/2025 2:00 PM EST French Stanton RN 6. Suicidal Behavior (Lifetime) No 2:00 PM EST Isabelle Stanton RN documented as of this encounter Plan of Treatment Upcoming Encounters Date Type Department Care Team (Late st Contact Info) Description 05/03/2025 8:00 AM EST Office Visit [facility] at [address] [phone] 05/03/2025 9:00 AM EST Office Visit [facility] at [address] [phone] Sima Trejo MD [address] [place] [phone] 05/03/2025 9:15 AM EST Infusion [facility] [address] [place] [phone] documented as of this encounter Visit Diagnoses Diagnosis 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)- Primary Chronic lymphoid leukemia, in relapse documented in this encounter Administered Medications Inactive Administered Medications - up to 3 most recent administrations Medication Order MAR Action Action Date Dose Rate Site acetaminophen (Tylenol) tablet 650 mg 650 mg, Oral, Once, 1 dose, On Lynda 04/05/25 at 0945, RoutineIndications: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 Dispose in BLACK Hazardous Waste Container. 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) New Bag 04/05/2025 10:05 AM EST 97.5 mg 897 mL/hr dexamethasone (Decadron) tablet 12 mg 12 mg, Oral, Once, 1 dose, On Lynda 04/05/25 at 0945, RoutineIndications: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) Given 04/05/2025 9:28 AM EST 12 mg diphenhydrAMINE (Benadryl) tablet 50 mg 50 mg, Oral, Once, 1 dose, On Lynda 04/05/25 at 0945, RoutineIndications: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) Given 04/05/2025 9:28 AM EST 50 mg ondansetron ODT (Zofran-ODT) disintegrating tablet 16 mg 16 mg, Oral, Once, 1 dose, On Lynda 04/05/25 at 0945, RoutineIndications:CLL (chronic lymphoid leukemia) in relapse ([facility]/HCC) Given 04/05/2025 9:28 AM EST 16 mg riTUXimab-arrx (Riabni) 700 mg in sodium chloride 0.9 % 500 mL IVPB 700 mg (rounded from 731.25 mg = 375 mg/m2 1.95 m2 Treatment Plan BSA from Recorded weight), Intravenous, Once, Concentration: 1.1 mg/mL (ATV: 615 mL) Rapid Rate: 273 mg/fn=971 mL/hr for 30 min (VTBI: 124 mL) 555 mg/qs=227 mL/hr for 60 min (VTBI: 491 mL) Refer to hypersensitivity protocol for rate changes if intolerance or adverse reaction. Specific administration requirements refer to A14-065. Refer to hypersensitivity protocol for rate changes if intolerance or adverse reaction, On Lynda 04/05/25 at 1015, For 1 doseIndications:CLL (chronic lymphoid leukemia) in relapse ([facility]/HCC) Rate/Dose Change 04/05/2025 11:02 AM EST 496 mL/hr New Bag 04/05/2025 10:30 AM EST 700 mg 248 mL/hr sodium chloride 0.9 % flush 10 mL 10 mL, Intravenous, As needed, Starting on Lynda 04/05/25 at 0917, Until Lynda 04/05/25 at 1635, Routine, line care, Flush Before and After EVERY dose of medication.Indications:CLL (chronic lymphoid leukemia) in relapse ([facility]/HCC) Given 04/05/2025 10:01 AM EST 10 mL sodium chloride 0.9 % flush 20 mL 20 mL, Intravenous, Every 1 hour PRN, Starting on Lynda 04/05/25 at 0917, Until Lynda 04/05/25 at 1635, Routine, line care, After blood draws and if any blood seen in tubing.Indications: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) Given 04/05/2025 10:26 AM EST 20 mL documented in this encounter Additional Health Concerns Assessment Noted Time PHQ-9 Depression Total Score: 5 11/15/19 9:00 AM EDT A fall risk assessment has been complete d for the patient 04/05/2025 8:05 AM EST documented as of this encounter Care Teams Casing Machine Operator Relationship Specialty Start Date End Date Oren Presslye MD [address] [place] [address] PCP - General Internal Medicine 02/09/23 Sima Trejo MD [address] [phone] Medical Oncologist Hematology and Oncology 08/02/23 documented as of this encounter
[2025-04-08] VITALS (7 sets, daily range): BP systolic 137–215; BP diastolic 90–110; PULSE 74–88; RESP 10–15; TEMP 36.8; O2SAT 93–97; BMI 39.4
--- NOTE | 2025-04-08 21:37 | ECG_ITS ---
APPROVED REPORT Exam: Resting ECG HR:90 bpm ECG Measurements Heart Rate 90 AXES QRSd 92 QRS 48 QT 375 T 35 QTc 422 Conclusion ATRIAL FIBRILLATION WITH ABERRANT CONDUCTION OR VENTRICULAR PREMATURE COMPLEXES No STEMI Electronically signed by : NAMAN HARRIS, 04/09/2025 05:57:19
--- NOTE | 2025-04-08 21:44 | XR_ITS ---
PROCEDURE INFORMATION: Exam: XR Pelvis Exam date and time: 04/08/2025 9:35 PM Age: 79 years old Clinical indication: Injury or trauma; Fall; Other: PT on blood thinners; Injury date: 04/08/25 TECHNIQUE: Imaging protocol: Radiologic exam of the pelvis. Views: 1 or 2 view. COMPARISON: CT ABDOMEN PELVIS W CON 01/30/2025 8:25 AM FINDINGS: Bones/joints: Unremarkable. No acute fracture. Soft tissues: Unremarkable. IMPRESSION: No acute findings.
--- NOTE | 2025-04-08 21:44 | XR_ITS ---
PROCEDURE INFORMATION: Exam: XR Chest Exam date and time: 04/08/2025 9:35 PM Age: 79 years old Clinical indication: Injury or trauma; Fall; Other: PT on blood thinners; Injury date: 04/08/25 TECHNIQUE: Imaging protocol: Radiologic exam of the chest. Views: 1 view. COMPARISON: CT CHEST W CON 01/30/2025 8:25 AM FINDINGS: Lungs: No acute airspace disease Pleural spaces: Unremarkable. No pleural effusion. No pneumothorax. Heart/Mediastinum: Cardiomegaly Bones/joints: Unremarkable. Other findings: No definite effusions IMPRESSION: Cardiomegaly. Otherwise negative exam.
--- NOTE | 2025-04-08 21:46 | CT_ITS ---
PROCEDURE INFORMATION: Exam: CT Lumbar Spine Without Contrast Exam date and time: 04/08/2025 10:18 PM Age: 79 years old Clinical indication: Injury or trauma; Fall; Injury date: 04/08/25; Additional info: Trauma, critical injury suspected TECHNIQUE: Imaging protocol: Computed tomography of the lumbar spine without contrast. Radiation optimization: All CT scans at this facility use at least one of these dose optimization techniques: automated exposure control; mA and/or kV adjustment per patient size (includes targeted exams where dose is matched to clinical indication); or iterative reconstruction. COMPARISON: PT PET CT Skull Base to [facility] 07/19/2020 11:39 AM FINDINGS: Bones/joints: Facet hypertrophy seen through the lumbar spine. Grade 1 anterolisthesis of the L4 and L5 levels. Decreased disc space height at the L2-L3 levels Soft tissues: Unremarkable. IMPRESSION: No visible acute fracture/malalignment.
--- NOTE | 2025-04-08 21:46 | CT_ITS ---
PROCEDURE INFORMATION: Exam: CT Thoracic Spine Without Contrast Exam date and time: 04/08/2025 10:15 PM Age: 79 years old Clinical indication: Injury or trauma; Fall; Additional info: Trauma, critical injury suspected TECHNIQUE: Imaging protocol: Computed tomography of the thoracic spine without contrast. Radiation optimization: All CT scans at this facility use at least one of these dose optimization techniques: automated exposure control; mA and/or kV adjustment per patient size (includes targeted exams where dose is matched to clinical indication); or iterative reconstruction. COMPARISON: PT PET CT Skull Base to [facility] 07/19/2020 11:39 AM FINDINGS: Bones/joints: No acute fracture. Normal alignment. No significant disc bulge or herniation. No severe spinal canal stenosis. No significant neural foraminal narrowing. Soft tissues: Unremarkable. Lungs: Right upper lobe airspace consolidation versus mass incompletely visualized by this examination Pleural spaces: Small pleural effusions incidentally noted IMPRESSION: No visible acute fracture/malalignment.
--- NOTE | 2025-04-08 21:46 | CT_ITS ---
PROCEDURE INFORMATION: Exam: CT Head Without Contrast Exam date and time: 04/08/2025 10:10 PM Age: 79 years old Clinical indication: Injury or trauma; Fall; Injury date: 04/08/25; Additional info: Trauma, critical injury suspected TECHNIQUE: Imaging protocol: Computed tomography of the head without contrast. Radiation optimization: All CT scans at this facility use at least one of these dose optimization techniques: automated exposure control; mA and/or kV adjustment per patient size (includes targeted exams where dose is matched to clinical indication); or iterative reconstruction. COMPARISON: CT HEAD/BRAIN WO CON 08/05/2024 7:13 PM FINDINGS: Brain: There is moderate cerebral volume loss. There are mild periventricular white matter changes. There is no intracranial hemorrhage. There are no pathologic extra-axial fluid collections. Cerebral ventricles: No ventriculomegaly. Paranasal sinuses: Visualized sinuses are unremarkable. No fluid levels. Mastoid air cells: Visualized mastoid air cells are well aerated. Bones: Unremarkable. No acute fracture. Soft tissues: Unremarkable. IMPRESSION: No acute intracranial pathology. Mild chronic small vessel ischemic disease changes with moderate cerebral volume loss.
--- NOTE | 2025-04-08 21:46 | CT_ITS ---
PROCEDURE INFORMATION: Exam: CTA Abdomen and Pelvis Without And With Contrast Exam date and time: 04/08/2025 10:25 PM Age: 79 years old Clinical indication: Injury or trauma; Fall; Injury date: 04/08/25; Additional info: Trauma, critical injury suspected TECHNIQUE: Imaging protocol: Computed tomographic angiography of the abdomen and pelvis without and with contrast. Exam focused on the arteries. 3D rendering (Not supervised by radiologist): MIP and/or 3D reconstructed images were created by the technologist. Radiation optimization: All CT scans at this facility use at least one of these dose optimization techniques: automated exposure control; mA and/or kV adjustment per patient size (includes targeted exams where dose is matched to clinical indication); or iterative reconstruction. Contrast material: ISOVUE; Contrast volume: 80 ml; Contrast route: INTRAVENOUS (IV); COMPARISON: CT BONY PELVIS 04/08/2025 10:22 PM FINDINGS: Aorta: Nonaneurysmal infrarenal abdominal aorta with moderate atheromatous disease Celiac and mesenteric arteries: No occlusion or significant stenosis. Renal arteries: No occlusion or significant stenosis. Right iliac arteries: No occlusion or significant stenosis. Left iliac arteries: No occlusion or significant stenosis. Liver: No mass. Gallbladder and biliary ducts: Cholecystectomy Pancreas: Unremarkable. No mass. No ductal dilation. Spleen: Unremarkable. No splenomegaly. Adrenal glands: Unremarkable. No mass. Kidneys and ureters: No hydronephrosis. Stomach and bowel: No abnormal bowel dilation. No abnormal bowel dilation. Appendix: No evidence of appendicitis. Intraperitoneal space: No abnormal free fluid Lymph nodes: Unremarkable. No enlarged lymph nodes. Urinary bladder: Unremarkable. No mass. Reproductive: Unremarkable as visualized. Bones/joints: Facet hypertrophy. Soft tissues: Unremarkable. Other findings: No high-grade stenosis or occlusion IMPRESSION: Normal CT angiogram abdomen pelvis. No visible acute intra-abdominal injury.
--- NOTE | 2025-04-08 21:46 | CT_ITS ---
PROCEDURE INFORMATION: Exam: CT Cervical Spine Without Contrast Exam date and time: 04/08/2025 10:12 PM Age: 79 years old Clinical indication: Injury or trauma; Fall; Injury date: 04/08/25; Additional info: Trauma, critical injury suspected TECHNIQUE: Imaging protocol: Computed tomography of the cervical spine without contrast. Radiation optimization: All CT scans at this facility use at least one of these dose optimization techniques: automated exposure control; mA and/or kV adjustment per patient size (includes targeted exams where dose is matched to clinical indication); or iterative reconstruction. COMPARISON: CT CERVICAL SPINE WO CON 08/05/2024 7:15 PM FINDINGS: Bones: There is normal alignment of the cervical spine. The vertebral body heights are maintained. There is no spondylolisthesis. Craniocervical relationship is maintained. There are no fractures or dislocations. 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 Lungs: There are airspace opacities in the right upper lobe, incompletely evaluated. Soft tissues: Unremarkable. IMPRESSION: 1. No evidence of osseous injury to the cervical spine. 2. Airspace opacities in the right upper lobe, incompletely evaluated. Please refer to CT chest for further details.
--- NOTE | 2025-04-08 21:46 | CT_ITS ---
PROCEDURE INFORMATION: Exam: CT Pelvis Without Contrast, Skeleton Exam date and time: 04/08/2025 10:22 PM Age: 79 years old Clinical indication: Injury or trauma; Fall; Additional info: Trauma, critical injury suspected TECHNIQUE: Imaging protocol: Computed tomography of the pelvis without contrast. Exam focused on the skeleton. Radiation optimization: All CT scans at this facility use at least one of these dose optimization techniques: automated exposure control; mA and/or kV adjustment per patient size (includes targeted exams where dose is matched to clinical indication); or iterative reconstruction. COMPARISON: CT ABDOMEN PELVIS W CON 01/30/2025 8:25 AM FINDINGS: Bones/joints: Unremarkable. No acute fracture. No dislocation. Soft tissues: Unremarkable. IMPRESSION: No acute findings.
[2025-04-08] MEDS: ONDANSETRON 4MG/2ML VIAL 4 MG IV (21:48)
[2025-04-08] MEDS: MORPHINE 4MG/ML SYRINGE 4 MG IV (21:49)
--- OUTSIDE RECORDS SUMMARY | 2025-04-08 21:49 | XMS_ITS | Encounter Summary ---
Author Organization Healthcare Address [address] [place] [address] Care Team Providers Care Control And Recovery Special Tactics Name Role Phone Oren Pressley MD Primary Care Provider [phone] Sima Trejo MD Unavailable [phone] Encounter Details Date Type Department Care [...] Department Care Team ( Contact Info) Description 05/03/2025 8:00 AM EST Office Visit [facility] [address] [place] [address] 05/03/2025 9:00 AM EST Office Visit [facility] [address] [place] [address] [place] [address] [place] [phone] 05/03/2025 9:15 AM EST Infusion [facility] [address] [place] [phone] documented as of this encounter Visit Diagnoses Not on filedocumented in this encounter Additional Health Concerns Assessment Noted Time PHQ-9 Depression Total Score: 5 11/15/19 25 9:00 AM EDT A fall risk assessment has been complete d for the patient 08/08/2024 2:12 PM EDT documented as of this encounter Care Teams Control And Recovery Special Tactics Relationship Specialty Start Date End Date Oren Pressley MD [address] [place] [address] PCP - General Internal Medicine 02/09/23 Sima Trejo MD [address] [address] Medical Oncologist Hematology and Oncology 08/02/23 documented as of this encounter
--- OUTSIDE RECORDS SUMMARY | 2025-04-08 21:49 | XMS_ITS | Encounter Summary ---
Author Organization Healthcare Address [address] [place] [address] Care Team Providers Care Client Hr Manager Name Role Phone Pcp, No Primary Care Provider Oren Hull MD Primary Care Provider [phone] Sima Trejo MD Unavailable [phone] Encounter Details Date Type Department Care Team (Late st Contact Info) Description 05/26/2022 Orders Only [email or web address] at [facility] [address] [place] [address] Sima Trejo MD [address] [address] Social History Tobacco Use Types [...] Description 05/03/2025 8:00 AM EST Office Visit [facility] [[email or web address] at [facility] [address] [place] [address] 05/03/2025 9:00 AM EST Office Visit [facility] [[email or web address] at [facility] [address] [place] [address] Sima Trejo MD [address] [address] 05/03/2025 9:15 AM EST Infusion [facility] [[email or web address] at [facility] [address] [place] [phone] documented as of this encounter Procedures Procedure Name Priority Date/Time Associated Diagnosis Comments URIC ACID, PLASMA Routine 05/26/2022 1:0 7 PM EST documented in this encounter Results * (ABNORMAL) Uric Acid, Plasma (05/26/2022 1:07 PM EST) External Uric Acid 8.9(H) 2.4 - 5.7 mg/dL [facility] Comment: Reference ranges are based on population norms and do not necessarily correlate with treatment targets. In patients with an established diagnosis of gout undergoing Urate Lowering Therapy (ULT), the 2012 [place] [employer] Guidelines for Management of Gout recommend a target uric acid level of < 6 mg/dL in all patients, or lower in certain circumstances. Arthritis Care and Research Vol 64 No , Jan. 2012 [place] [employer] 05/26/2022 1:07 PM EST 05/26/2022 1:19 PM EST us Sima Trejo MD LAB BLOOD ORDERABLES Final Re sult [facility] [address] [place] [address], documented in this encounter Visit Diagnoses Not on filedocumented in this encounter Care Teams Client Hr Manager Relationship Specialty Start Date End Date Pcp, No [address] [place] [address] PCP - General 12/02/20 02/08/23 Oren Pressley MD [address] [place] [address] PCP - General Internal Medicine 02/09/23 Sima Trejo MD [address] [phone] Medical Oncologist Hematology and Oncology 08/02/23 documented as of this encounter
--- OUTSIDE RECORDS SUMMARY | 2025-04-08 21:49 | XMS_ITS | Clinical Summary ---
Author Organization [employer] ([place], [place], [place], [place], [place]) Address [address] [place] [address] Care Team Providers Care Glove Maker Name Role Phone Oren Pressley MD Primary Care Provider [phone] Allergies No known active allergies Medications clonazePAM [...] Date [place] Speak language other than Bulgarian at home Not on file 04/30/2023 Want [...] 01/10/2020, Additional history exists Insurance [place] [id number] MEDICARE PART A B Care Teams Glove Maker Relationship Specialty Start Date End Date Oren Pressley MD [address] [place] [address] PCP - General Adolescent Medicine 05/17/23
--- OUTSIDE RECORDS SUMMARY | 2025-04-08 21:49 | XMS_ITS | Encounter Summary ---
Author Organization Healthcare Address [address] [place] [address] Care Team Providers Care Shoe Sprayer Name Role Phone Oren Pressley MD Primary Care Provider Sima Trejo MD Unavailable [phone] Encounter Details Date Type Department Care Team (Late st Contact Info) Description 03/06/2025 Orders Only [facility] [address] [place] [address] Sima Trejo MD [address] [facility] [address] [place] [address] CLL (chronic lymphoid leukemia) in [...] Description 05/03/2025 8:00 AM EST Office Visit [facility] [address] [place] [phone] 05/03/2025 9:00 AM EST Office Visit [facility] [address] [place] [phone] Sima Trejo MD [address] [phone] 05/03/2025 9:15 AM EST Infusion [facility] [address] [place] [address] documented as of this [...] - 6.8 mg/dL 03/06/2025 11:48 AM EST [facility] Comment: Reference ranges are based on population norms and do not necessarily correlate with treatment targets. In patients with an established diagnosis of gout undergoing Urate Lowering Therapy (ULT), the 2012 [place] [employer] Guidelines for Management of Gout recommend a target uric acid level of < 6 mg/dL in all patients, or lower in certain circumstances. Arthritis Care and Research Vol 64 No 10, 2011 [place] [employer] Blood Venous blood specimen / Unknown 03/06/2025 10:55 AM EST 03/06/2025 11:16 AM EST Sima Trejo MD LAB BLOOD ORDERABLES Final Re sult Performing Organization Address City/[facility]/ZIP Co de Phone Number [facility] [address] [place] [address], * Lactate Dehydrogenase, Plasma (03/06/2025 10:55 AM EST) External LDH Lactate Dehydrogenase 170 135 - 233 U/L 03/06/2025 12:02 PM EST [facility] Blood Venous blood specimen / Unknown 03/06/2025 10:55 AM EST 03/06/2025 11:31 AM EST Sima Trejo MD LAB BLOOD ORDERABLES Final Re sult Performing Organization Address [facility]/ZIP Co de Phone Number [facility] [address] [place] [address], [place] [phone] * (ABNORMAL) Comprehensive metabolic panel (03/06/2025 10:55 AM EST) External Glucose 111(H) 74 - 100 mg/dL 03/06/2025 11:48 AM [facility] External BUN 14 6 - 20 mg/dL 03/06/2025 11:48 AM [facility] External Creatinine Blood 1.40(H) 0.50 - 0.95 mg/dL 03/06/2025 11:48 AM [facility] External BUN/Creat Ratio 10 10 - 20 (calc) 03/06/2025 11:48 AM [facility] External Sodium 136 136 - 145 mmol/L 03/06/2025 11:48 AM [facility] External Potassium 4.6 3.4 - 5.0 mmol/L 03/06/2025 11:48 AM [facility] External Chloride 102 98 - 107 mmol/L 03/06/2025 11:48 AM [facility] External Carbon Dioxide (CO2) 23 22 - 31 mmol/L 03/06/2025 11:48 AM [facility] External Anion Gap (AG) 11 7 - 25 (calc) 03/06/2025 11:48 AM [facility] External Calcium 9.2 8.6 - 10.2 mg/dL 03/06/2025 11:48 AM [facility] External Total Protein 6.3(L) 6.4 - 8.3 g/dL 03/06/2025 11:48 AM [facility] External Albumin 4.1 3.5 - 5.2 g/dL 03/06/2025 11:48 AM [facility] External Globulin 2.2 1.5 - 4.5 025 11:48 AM [facility] External Albumin/Globulin Ratio 1.9 1.1 - 2.5 (calc) 03/06/2025 11:48 AM [facility] External Bilirubin Total 0.4 0.1 - 1.0 mg/dL 03/06/2025 11:48 AM [facility] Comment:NOTE: New reference range. External Alkaline Phosphatase 69 30 - 121 U/L 03/06/2025 11:48 AM [facility] External AST (SGOT) 19 0 - 32 U/L 03/06/2025 11:48 AM [facility] External ALT (SGPT) 14 0 - 33 U/L 03/06/2025 11:48 AM EST [facility] External Estimated GFR 38(A) >=60 03/06/2025 11:48 AM EST [facility] Comment: NOTE New calculation for GFR (CKD-EPI 2020) is formulated without race adjustment factors at the recommendation of the National Kidney Foundation and [place] [employer]ph[employer]. This calculation has not been validated in women. For pediatric patients refer to https://www.kidney.org/professionals/KDOQI/gfr_calculatorPed Blood Venous blood specimen / Unknown 03/06/2025 10:55 AM EST 03/06/2025 11:16 AM EST us Sima Trejo MD LAB BLOOD ORDERABLES Final Re sult [facility] [address] [place] [address], * (ABNORMAL) CBC and differential (03/06/2025 10:55 AM EST) External WBC 5.1 3.8 - 10.8 10*3/uL 03/06/2025 11:36 AM EST [facility] External Red Blood Cell (RBC) 3.56(L) 3.80 - 5.20 10*6/uL 03/06/2025 11:36 AM EST [facility] External Hemoglobin 11.4(L) 12.0 - 16.0 g/dL 03/06/2025 11:36 AM EST [facility] External Hematocrit 33.7(L) 35.0 - 47.0 % 03/06/2025 11:36 AM EST [facility] External MCV 95 80 - 100 fL 03/06/2025 11:36 AM EST [facility] External MCH 32 26 - 35 pg 03/06/2025 11:36 AM EST [facility] External MCHC 34 32 - 36 g/dL 03/06/2025 11:36 AM EST [facility] External RDW 16.3(H) 11.0 - 15.0 % 03/06/2025 11:36 AM EST [facility] External Mean Platelet Volume 7.8 6.2 - 10.5 fL 03/06/2025 11:36 AM EST [facility] External Platelet Count (Plt) 120(L) 150 - 400 10*3/uL 03/06/2025 11:36 AM EST [facility] External Neutrophil# 2.5 1.6 - 8.4 10*3/uL 03/06/2025 11:36 AM EST [facility] External Lymphocyte# 1.9 0.4 - 5.1 10*3/uL 03/06/2025 11:36 AM EST [facility] External Absolute Monocyte (Abs [place]) 0.5 0.0 - 1.2 10*3/uL 03/06/2025 11:36 AM EST [facility] External Eosinophils# 0.2 0.0 - 0.8 10*3/uL 03/06/2025 11:36 AM EST [facility] External Baso# 0.1 0.0 - 0.3 10*3/uL 03/06/2025 11:36 AM EST [facility] External Neutrophils % 48.7 42.0 - 78.0 % 03/06/2025 11:36 AM EST [facility] External Lymphocyte % 37.0 11.0 - 47.0 % 03/06/2025 11:36 AM EST [facility] External Monocyte % 9.9 0.0 - 11.0 % 03/06/2025 11:36 AM [facility] External Eosinophil% 3.4 0.0 - 7.0 % 03/06/2025 11:36 AM EST [facility] External Basophil % 1.0 0.0 - 3.0 % 03/06/2025 11:36 AM [facility] External Nucleated RBC%-Auto 0.3 0.0 - 0.9 % 03/06/2025 11:36 AM EST [facility] External Nucleated RBC Absolute 0.02 Not Estab. 10*3/uL 03/06/2025 11:36 AM [facility] Blood Venous blood specimen / Unknown 03/06/2025 10:55 AM EST 03/06/2025 11:17 AM EST us Sima Trejo MD LAB BLOOD ORDERABLES Final Re sult [facility] [address] [place] [address], documented in this encounter Visit Diagnoses Diagnosis [...] documented as of this encounter Care Teams Shoe Sprayer Relationship Specialty Start Date End Date Oren Pressley MD [address] [facility] [address] [place] [address] PCP - General Internal Medicine 02/09/23 Sima Trejo MD [address] [phone] Medical Oncologist Hematology and Oncology 08/02/23 documented as of this encounter
--- OUTSIDE RECORDS SUMMARY | 2025-04-08 21:49 | XMS_ITS | Encounter Summary ---
Author Organization Healthcare Address [address] [place] [address] Care Team Providers Care Federal Mediation Commissioner Name Role Phone Pcp, No Primary Care Provider Oren Hull MD Primary Care Provider [phone] Sima Trejo MD Unavailable [phone] Encounter Details Date Type Department Care Team (Late st Contact Info) Description 05/26/2022 Orders Only [facility] [address] [place] [address] Sima Trejo MD [address] [address] Social History Tobacco Use Types [...] Description 05/03/2025 8:00 AM EST Office Visit [facility] [address] [place] [address] 05/03/2025 9:00 AM EST Office Visit [facility] [address] [place] [address] Sima Trejo MD [address] [address] 05/03/2025 9:15 AM EST Infusion [facility] [place] [address] documented as of this encounter Procedures Procedure Name Priority Date/Time Associated Diagnosis Comments COMPREHENSIVE METABOLIC PANEL, PLASMA Routine 05/26/2022 1:07 PM EST documented in this encounter Results * (ABNORMAL) Comprehensive Metabolic Panel, Plasma (05/26/2022 1:07 PM EST) External Glucose 116(H) 74 - 100 mg/dL [facility] External BUN 22(H) 6 - 20 mg/dL [facility] External Creatinine Blood 1.15(H) 0.50 - 0.95 mg/dL [facility] External BUN/Creat Ratio 19 10 - 20 (calc) [facility] External Sodium 140 136 - 145 mmol/L [facility] External Potassium 4.4 3.4 - 5.0 mmol/L [facility] External Chloride 104 98 - 107 mmol/L [facility] External Carbon Dioxide 25 22 - 31 mmol/L [facility] External Anion Gap (AG) 11 7 - 25 (calc) [facility] External Calcium 9.5 8.6 - 10.2 mg/dL [facility] External Total Protein 7.0 6.4 - 8.3 g/dL [facility] External Albumin 4.3 3.5 - 5.2 g/dL [facility] External Globulin 2.7 1.5 - 4.5 g/dL (calc) [facility] External Albumin/Globulin Ratio 1.6 1.1 - 2.5 (calc) [facility] External Bilirubin Total 0.4 0.1 - 1.2 mg/dL [facility] External Alkaline Phosphatase 71 30 - 121 U/L [facility] External AST (SGOT) 18 0 - 32 U/L [facility] External ALT (SGPT) 15 0 - 33 U/L [facility] External Estimated GFR 49(A) >=60 [facility] Comment: NOTE New calculation for GFR (CKD-EPI 2020) is formulated without race adjustment factors at the recommendation of the National Kidney Foundation and [place] [employer]. This calculation has not been validated in women. For pediatric patients refer to https://www.kidney.org/professionals/KDOQI/gfr_calculatorPed 05/26/2022 1:07 PM EST 05/26/2022 1:19 PM EST us Sima Trejo MD LAB BLOOD ORDERABLES Final Re sult [facility] [address] [place] [address], documented in this encounter Visit Diagnoses Not on filedocumented in this encounter Care Teams Federal Mediation Commissioner Relationship Specialty Start Date End Date Pcp, No [address] [place] [address] PCP - General 12/02/20 02/08/23 Oren Pressley MD [address] [place] [address] PCP - General Internal Medicine 02/09/23 Sima Trejo MD [address] [phone] Medical Oncologist Hematology and Oncology 08/02/23 documented as of this encounter
--- OUTSIDE RECORDS SUMMARY | 2025-04-08 21:49 | XMS_ITS | Clinical Summary ---
Author Organization Healthcare Address [address] [place] [address] Care Team Providers Care Rug Clipper Name Role Phone Oren Pressley MD Primary Care Provider [phone] Sima Trejo MD Unavailable [phone] Allergies No known active allergies Medications [...] by mouth Daily. Active ergocalciferol 1.25 MG (17845 UT) capsule 3 Active cyanocobalamin (Vitamin B-12) [...] Encounters Date Type Department Care Team Description 04/05/2025 8:30 AM EST Infusion [facility] at [facility] [address] [place] [address] 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) (Primary Dx) 04/05/2025 8:15 AM EST Office Visit [facility] [address] [place] [address] Sima Trejo MD 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) 04/05/2025 Travel 04/03/2025 Orders Only [facility] [address] [place] [address] Sima Trejo MD 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); History of non-Hodgkin's lymphoma 03/06/2025 12:45 PM EST Infusion [facility] [address] [place] [address] 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) (Primary Dx) 03/06/2025 12:30 PM EST Office Visit [facility] [address] [place] [address] Sima Trejo MD 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) (Primary Dx) 03/06/2025 Travel 03/06/2025 Orders Only [facility] [address] [place] [address] Sima Trejo MD 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); History of non-Hodgkin's lymphoma; Lung nodule 02/06/2025 12:00 PM EDT Infusion [facility] [address] [place] [address] 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) (Primary Dx) 02/06/2025 11:30 AM EDT Office Visit [facility] [address] [place] [address] Sima Trejo MD 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) (Primary Dx) 02/06/2025 Social Work [facility] [address] [place] [address] Deena Newton 02/06/2025 Travel 02/06/2025 Orders Only [facility] [address] [place] [address] Sima Trejo MD 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) 01/30/2025 Orders Only [facility] [address] [place] [address] Sima Trejo MD 01/11/2025 Social Work [facility] at [address] [address] Jo Helms, CARGO SERVICE AGENT 01/10/2025 Social Work Psych Oncology [address] [place] [address] Janet Thomas 01/09/2025 12:00 PM EDT Infusion [facility] [address] [place] [address] 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) (Primary Dx) 01/09/2025 11:45 AM EDT Office Visit [facility] [address] [place] [address] Sima Trejo MD 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) (Primary Dx) 01/09/2025 [facility] Work [facility] [address] [place] [address] Jo Helms, CARGO SERVICE AGENT 01/09/2025 Orders Only [facility] [address] [place] [address] Sima Trejo MD 01/09/2025 Travel 01/09/2025 Orders Only [facility] [address] [place] [address] Sima Trejo MD CLL (chronic lymphoid leukemia) in relapse ([facility]); History of non-Hodgkin's lymphoma; Weakness; Atrial fibrillation, chronic ([facility]) from Last 3 Months Immunizations Immunization Administration [...] Mass Index 33.12 04/05/2025 9:17 AM EST Plan of Treatment Upcoming Encounters Date Type Department Care Team (Late st Contact Info) Description 05/03/2025 8:00 AM EST Office Visit [facility] [address] [place] [address] 05/03/2025 9:00 AM EST Office Visit [facility] [address] [place] [address] Sima Trejo MD [address] [phone] 05/03/2025 9:15 AM EST Infusion [facility] [address] [place] [address] Health Maintenance Due Date Last Done Comments [facility]-Bone Density Scan 1945 [facility]-Medicare Annual Wellness (AWV) 1945 [facility]-/Child/Adol SDOH Screenings 1945 [facility]-Obesity Intervention 08/18/1949 [facility]- SDOH Screenings 08/18/1961 [facility]-Adult SDOH Screenings 08/18/1961 [facility]-Zoster Vaccines (1 of 2) 01/18/2017 01/17/2019, 11/23/2016 [facility]-RSV Vaccine: 60+ Years or (1 - 1-dose 75+ series) 08/18/2018 [id number] Vaccine ( season) 2024 03/16/2023, 01/08/2021, 07/19/2020, Additional history exists [facility]-Influenza Vaccine (#1) 12/18/202401/10, 03/16/2023, 01/01/2022, Additional history exists [facility]-Depression Screening 11/14/2025 11/14/2024, 10/18 [facility]-DTaP,Tdap,and Td Vaccines (2 - Td or Tdap) 08/05/2034 08/05/2024 [facility]-Pneumococcal Vaccine: 50+ Years Completed 07/18/2021, 01/17/2018, 10/28/2017, Additional history exists HPV Vaccines (No Doses Required) Completed [facility]-HIB Vaccines Aged Out No longer e [...] Associated Diagnosis Comments URIC ACID, PLASMA STAT 04/05/2025 7:4 3 AM EST 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) History of non-Hodgkin's lymphoma LACTATE DEHYDROGENASE, PLASMA STAT 04/05/2025 7:43 AM EST 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) History of non-Hodgkin's lymphoma COMPREHENSIVE METABOLIC PANEL, PLASMA STAT 04/05/2025 7:43 AM EST 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) CBC WITH AUTO DIFFERENTIAL STAT 04/05/2025 7:43 AM EST CLL (chronic lymphoid leukemia) in [...] Months Results * (ABNORMAL) CBC and differential (04/05/2025 7:43 AM EST) Only the most recent of4 resultswithin the time period is included. External WBC 5.5 3.8 - 10.8 10*3/uL 04/05/2025 8:28 AM EST [facility] External Red Blood Cell (RBC) 3.44(L) 3.80 - 5.20 10*6/uL 04/05/2025 8:28 AM EST [facility] External Hemoglobin 11.2(L) 12.0 - 16.0 g/dL 04/05/2025 8:28 AM EST [facility] External Hematocrit 33.2(L) 35.0 - 47.0 % 04/05/2025 8:28 AM EST [facility] External MCV 97 80 - 100 fL 04/05/2025 8:28 AM EST [facility] External MCH 33 26 - 35 pg 04/05/2025 8:28 AM EST [facility] External MCHC 34 32 - 36 g/dL 04/05/2025 8:28 AM EST [facility] External RDW 15.9(H) 11.0 - 15.0 % 04/05/2025 8:28 AM EST [facility] External Mean Platelet Volume 8.1 6.2 - 10.5 fL 04/05/2025 8:28 AM [facility] External Platelet Count (Plt) 127(L) 150 - 400 10*3/uL 04/05/2025 8:28 AM EST [facility] External Neutrophil# 3.5 1.6 - 8.4 10*3/uL 04/05/2025 8:28 AM EST [facility] External Lymphocyte# 1.3 0.4 - 5.1 10*3/uL 04/05/2025 8:28 AM EST [facility] External Absolute Monocyte (Abs Tucker) 0.5 0.0 - 1.2 10*3/uL 04/05/2025 8:28 AM EST [facility] External Eosinophils# 0.2 0.0 - 0.8 10*3/uL 04/05/2025 8:28 AM EST [facility] External Baso# 0.1 0.0 - 0.3 10*3/uL 04/05/2025 8:28 AM EST [facility] External Neutrophils % 64.0 42.0 - 78.0 % 04/05/2025 8:28 AM EST [facility] External Lymphocyte % 23.0 11.0 - 47.0 % 04/05/2025 8:28 AM EST [facility] External Monocyte % 8.8 0.0 - 11.0 % 04/05/2025 8:28 AM EST [facility] External Eosinophil% 3.1 0.0 - 7.0 % 04/05/2025 8:28 AM EST [facility] External Basophil % 1.1 0.0 - 3.0 % 04/05/2025 8:28 AM EST [facility] External Nucleated RBC%-Auto 0.1 0.0 - 0.9 % 04/05/2025 8:28 AM EST [facility] External Nucleated RBC Absolute 0.00 Not Estab. 10*3/uL 04/05/2025 8:28 AM EST [facility] Blood Venous blood specimen / Unknown 04/05/2025 7:43 AM EST 04/05/2025 8:14 AM EST us Sima Trejo MD LAB BLOOD ORDERABLES Final Re sult [facility] [address] [place] [address], * Uric Acid, Plasma (04/05/2025 7:43 AM EST) Only the most recent of2 resultswithin the time period is included. External Uric Acid 6.2 2.4 - 6.8 mg/dL 04/05/2025 8:41 AM EST [facility] Comment: Reference ranges are based on [...] 10, Jan. 2012 [employer] Blood Venous blood specimen / Unknown 04/05/2025 7:43 AM EST 04/05/2025 8:14 AM EST Sima Trejo MD LAB BLOOD ORDERABLES Final Re sult Performing Organization Address [facility] [place] [address], * Lactate Dehydrogenase, Plasma (04/05/2025 7:43 AM EST) Only the most recent of4 resultswithin the time period is included. External LDH Lactate Dehydrogenase 182 135 - 233 U/L 04/05/2025 8:53 AM EST [facility] Blood Venous blood specimen / Unknown 04/05/2025 7:43 AM EST 04/05/2025 8:35 AM EST Sima Trejo MD LAB BLOOD ORDERABLES Final Re sult Performing Organization Address [facility] [place] [address], * (ABNORMAL) Comprehensive metabolic panel (04/05/2025 7:43 AM EST) Only the most recent of4 resultswithin the time period is included. External Glucose 125(H) 74 - 100 mg/dL 04/05/2025 8:41 AM EST [facility] External BUN 17 6 - 20 mg/dL 04/05/2025 8:41 AM EST [facility] External Creatinine Blood 1.44(H) 0.50 - 0.95 mg/dL 04/05/2025 8:41 AM EST [facility] External BUN/Creat Ratio 12 10 - 20 (calc) 04/05/2025 8:41 AM EST [facility] External Sodium 137 136 - 145 mmol/L 04/05/2025 8:41 AM EST [facility] External Potassium 4.0 3.4 - 5.0 mmol/L 04/05/2025 8:41 AM [facility] External Chloride 102 98 - 107 mmol/L 04/05/2025 8:41 AM [facility] External Carbon Dioxide (CO2) 23 22 - 31 mmol/L 04/05/2025 8:41 AM [facility] External Anion Gap (AG) 12 7 - 25 (calc) 04/05/2025 8:41 AM EST [facility] External Calcium 9.0 8.6 - 10.2 mg/dL 04/05/2025 8:41 AM [facility] External Total Protein 6.4 6.4 - 8.3 g/dL 04/05/2025 8:41 AM [facility] External Albumin 4.0 3.5 - 5.2 g/dL 04/05/2025 8:41 AM [facility] External Globulin 2.4 1.5 - 4.5 025 8:41 AM [facility] External Albumin/Globulin Ratio 1.7 1.1 - 2.5 (calc) 04/05/2025 8:41 AM [facility] External Bilirubin Total 0.7 0.1 - 1.0 mg/dL 04/05/2025 8:41 AM EST [facility] Comment:NOTE: New reference range. External Alkaline Phosphatase 72 30 - 121 U/L 04/05/2025 8:41 AM [facility] External AST (SGOT) 18 0 - 32 U/L 04/05/2025 8:41 AM [facility] External ALT (SGPT) 12 0 - 33 U/L 04/05/2025 8:41 AM [facility] External Estimated GFR 36(A) >=60 04/05/2025 8:41 AM [facility] Comment: NOTE New calculation for GFR (CKD-EPI 2020) is formulated without race adjustment factors at the recommendation of the National Kid[employer] Foundation and [employer] [employer]. This calculation has not been validated in women. For pediatric patients refer to https://www.kidney.org/professionals/KDOQI/gfr_calculatorPed Blood Venous blood specimen / Unknown 04/05/2025 7:43 AM EST 04/05/2025 8:14 AM EST [facility] Sima Trejo MD LAB BLOOD ORDERABLES Final Re sult [facility] [address] [place] [address], [place] [phone] * CT Soft Tissue Neck w IV [...] (HAM) NONREACTIVE NONREACTIVE 01/09/2025 1:19 PM EDT [facility] External Hepatitis B Surface Antigen (HBSAg) NONREACTIVE NONREACTIVE 01/09/2025 1:19 PM EDT [facility] External Hepatitis B Core IgM (HBCM) NONREACTIVE NONREACTIVE 01/09/2025 1:19 PM EDT [facility] External Hepatitis C Antibody (HCV Ab) NONREACTIVE NONREACTIVE 01/09/2025 1:19 PM EDT [facility] Comment: Antibodies to HCV were not detected; does not exclude the possibility of exposure to HCV. Blood Venous blood specimen / Unknown 01/09/2025 10:50 AM EDT 01/09/2025 11:30 AM EDT us Sima Trejo MD LAB BLOOD ORDERABLES Final Re sult Performing Organization Address City/[facility]/ZIP Co de Phone Number [facility] [address] [place] [address], * (ABNORMAL) Manual Differential (01/09/2025 10:50 AM [...] BLOOD ORDERABLES Final Re sult [facility] [address] [place] [address], [place] [phone] * (ABNORMAL) Prothrombin Time/INR (01/09/2025 10:50 AM EDT) External Prothrombin Time (PT) 18.2(H) 9.0 - 11.0 SECONDS 01/09/2025 11:44 AM EDT [facility] External INR - Internormal Ratio 1.9(L) 2.0 - 3.0 01/09/2025 11:44 AM EDT [facility] Comment: INR OF 2.0 TO 3.0 [...] BLOOD ORDERABLES Final Re sult [facility] [address] [place] [address], from Last 3 Months Insurance MEDICARE Care Teams Rug Clipper Relationship Specialty Start Date End Date rOen Pressley MD [address] [place] [address] PCP - General Internal Medicine 02/09/23 Sima Trejo MD [address] [phone] Medical Oncologist Hematology and Oncology 08/02/23
--- OUTSIDE RECORDS SUMMARY | 2025-04-08 21:49 | XMS_ITS | Encounter Summary ---
Author Organization Healthcare Address [address] [place] [address] Care Team Providers Care Engagement Manager Name Role Phone Oren Pressley MD Primary Care Provider Sima Trejo MD Unavailable [phone] Encounter Details Date Type Department Care Team (Late st Contact Info) Description 02/06/[address] [facility] [address] [place] [address] Sima Trejo MD [address] [facility] [address] [place] [address] 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/[facility]) Social History Tobacco Use Types Packs/Day Years [...] Description 05/03/2025 8:00 AM EST Office Visit [facility] [address] [place] [phone] 05/03/2025 9:00 AM EST Office Visit [facility] [address] [place] [address] Sima Trejo MD [address] [phone] 05/03/2025 9:15 AM EST Infusion [facility] [address] [place] [address] documented as of this encounter Procedures Procedure Name Priority Date/Time Associated Diagnosis Comments CBC WITH AUTO DIFFERENTIAL STAT 02/06/2025 10:14 AM EDT CLL (chronic lymphoid leukemia) in relapse ([facility]/HCC) LACTATE DEHYDROGENASE, PLASMA STAT 02/06/2025 10:14 AM EDT 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) COMPREHENSIVE METABOLIC PANEL, PLASMA STAT 02/06/2025 10:14 AM EDT 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) documented in this encounter Results * Lactate Dehydrogenase, Plasma (02/06/2025 10:14 AM EDT) External LDH Lactate Dehydrogenase 174 135 - 233 U/L 02/06/2025 11:22 AM EDT [facility] Blood Venous blood specimen / Unknown 02/06/2025 10:14 AM EDT 02/06/2025 10:47 AM EDT us Sima Trejo MD LAB BLOOD ORDERABLES Final Re sult [facility] [address] [place] [address], * (ABNORMAL) Comprehensive Metabolic Panel, Plasma (02/06/2025 10:14 AM EDT) External Glucose 111(H) 74 - 100 mg/dL 02/06/2025 11:09 AM EDT [facility] External BUN 20 6 - 20 mg/dL 02/06/2025 11:09 AM T [facility] External Creatinine Blood 1.50(H) 0.50 - 0.95 mg/dL 02/06/2025 11:09 AM EDT [facility] External BUN/Creat Ratio 13 10 - 20 (calc) 02/06/2025 11:09 AM T [facility] External Sodium 136 136 - 145 mmol/L 02/06/2025 11:09 AM T [facility] External Potassium 4.3 3.4 - 5.0 mmol/L 02/06/2025 11:09 AM T [facility] External Chloride 102 98 - 107 mmol/L 02/06/2025 11:09 AM T [facility] External Carbon Dioxide (CO2) 23 22 - 31 mmol/L 02/06/2025 11:09 AM T [facility] External Anion Gap (AG) 11 7 - 25 (calc) 02/06/2025 11:09 AM EDT [facility] External Calcium 9.2 8.6 - 10.2 mg/dL 02/06/2025 11:09 AM EDT [facility] External Total Protein 6.6 6.4 - 8.3 g/dL 02/06/2025 11:09 AM T [facility] External Albumin 4.3 3.5 - 5.2 g/dL 02/06/2025 11:09 AM EDT [facility] External Globulin 2.3 1.5 - 4.5 10/21/2 025 11:09 AM EDT [facility] External Albumin/Globulin Ratio 1.9 1.1 - 2.5 (calc) 02/06/2025 11:09 AM EDT [facility] External Bilirubin Total 0.5 0.1 - 1.0 mg/dL 02/06/2025 11:09 AM EDT [facility] Comment:NOTE: New reference range. External Alkaline Phosphatase 81 30 - 121 U/L 02/06/2025 11:09 AM EDT [facility] External AST (SGOT) 18 0 - 32 U/L 02/06/2025 11:09 AM EDT [facility] External ALT (SGPT) 13 0 - 33 U/L 02/06/2025 11:09 AM EDT [facility] External Estimated GFR 35(A) >=60 02/06/2025 11:09 AM EDT [facility] Comment: NOTE New [...] Re sult [facility] [address] [place] [address], * (ABNORMAL) CBC and Differential (02/06/2025 10:14 AM EDT) External WBC 6.1 3.8 - 10.8 10*3/uL 02/06/2025 10:48 AM EDT [facility] External Red Blood Cell (RBC) 3.71(L) 3.80 - 5.20 10*6/uL 02/06/2025 10:48 AM EDT [facility] External Hemoglobin 11.6(L) 12.0 - 16.0 g/dL 02/06/2025 10:48 AM EDT [facility] External Hematocrit 34.4(L) 35.0 - 47.0 % 02/06/2025 10:48 AM EDT [facility] External MCV 93 80 - 100 fL 02/06/2025 10:48 AM EDT [facility] External MCH 31 26 - 35 pg 02/06/2025 10:48 AM EDT [facility] External MCHC 34 32 - 36 g/dL 02/06/2025 10:48 AM EDT [facility] External RDW 17.1(H) 11.0 - 15.0 % 02/06/2025 10:48 AM EDT [facility] External Mean Platelet Volume 7.4 6.2 - 10.5 fL 02/06/2025 10:48 AM EDT [facility] External Platelet Count (Plt) 136(L) 150 - 400 10*3/uL 02/06/2025 10:48 AM EDT [facility] External Neutrophil# 2.8 1.6 - 8.4 10*3/uL 02/06/2025 10:48 AM EDT [facility] External Lymphocyte# 2.4 0.4 - 5.1 10*3/uL 02/06/2025 10:48 AM EDT [facility] External Absolute Monocyte (Abs Gentry) 0.6 0.0 - 1.2 10*3/uL 02/06/2025 10:48 AM EDT [facility] External Eosinophils# 0.2 0.0 - 0.8 10*3/uL 02/06/2025 10:48 AM EDT [facility] External Baso# 0.1 0.0 - 0.3 10*3/uL 02/06/2025 10:48 AM EDT [facility] External Neutrophils % 46.4 42.0 - 78.0 % 02/06/2025 10:48 AM EDT [facility] External Lymphocyte % 39.1 11.0 - 47.0 % 02/06/2025 10:48 AM EDT [facility] External Monocyte % 10.3 0.0 - 11.0 % 02/06/2025 10:48 AM EDT [facility] External Eosinophil% 3.3 0.0 - 7.0 % 02/06/2025 10:48 AM EDT [facility] External Basophil % 0.9 0.0 - 3.0 % 02/06/2025 10:48 AM EDT [facility] External Nucleated RBC%-Auto 0.1 0.0 - 0.9 % 02/06/2025 10:48 AM EDT [facility] External Nucleated RBC Absolute 0.01 Not Estab. 10*3/uL 02/06/2025 10:48 AM EDT [facility] Blood Venous blood specimen / Unknown 02/06/2025 10:14 AM EDT 02/06/2025 10:43 AM EDT us Sima Trejo MD LAB BLOOD ORDERABLES Final Re sult [facility] [address] [place] [address], documented in this encounter Visit Diagnoses Diagnosis 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/[facility]) Chronic lymphoid leukemia, in relapse documented in this encounter Additional Health Concerns Assessment Noted Time PHQ-9 Depression Total Score: 5 11/15/19 25 9:00 AM EDT A fall risk assessment has been complete d for the patient 08/08/2024 2:12 PM EDT documented as of this encounter Care Teams Engagement Manager Relationship Specialty Start Date End Date Oren Pressley MD [address] [place] [address] PCP - General Internal Medicine 02/09/23 Sima Trejo MD [address] [phone] Medical Oncologist Hematology and Oncology 08/02/23 documented as of this encounter
--- OUTSIDE RECORDS SUMMARY | 2025-04-08 21:49 | XMS_ITS | Referral Summary ---
Author Organization [employer] ([place], [place], [place], [place], [place]) Address [address] [place] [address] Care Team Providers Care Manager Cancer Name Role Phone Oren Pressley MD Primary Care Provider + [phone] Allergies No known active allergies Medications clonazePAM [...] MEDICARE PART A B Care Teams Manager Cancer Relationship Specialty Start Date End Date Oren Pressley MD [address] [place] [address] PCP - General Adolescent Medicine 05/17/23
--- OUTSIDE RECORDS SUMMARY | 2025-04-08 21:50 | XMS_ITS | Encounter Summary ---
Author Organization Healthcare Address [address] [place] [address] Care Team Providers Care Cover Stripper Name Role Phone Pcp, No Primary Care Provider Oren Hull MD Primary Care Provider Sima Trejo MD Unavailable [phone] Encounter Details Date Type Department Care Team (Late st Contact Info) Description 12/02/2020 Orders Only [facility] [address] [place] [address] Sima Trejo MD [address] [address] Social History Tobacco Use Types [...] Description 05/03/2025 8:00 AM EST Office Visit [facility] [address] [place] [address] 05/03/2025 9:00 AM EST Office Visit [facility] [address] [place] [address] Sima Trejo MD [address] [phone] 05/03/2025 9:15 AM EST Infusion [facility] [address] [place] [address] documented as of this encounter Procedures Procedure Name Priority Date/Time Associated Diagnosis Comments LACTATE DEHYDROGENASE, PLASMA Routine 12/02/2020 12:56 PM EDT documented in this encounter Results * Lactate Dehydrogenase, Plasma (12/02/2020 12:56 PM EDT) External LDH Lactate Dehydrogenase 184 135 - 233 U/L [facility] 12/02/2020 12:5 6 PM EDT 12/02/2020 1:26 PM EDT us Sima Trejo MD LAB BLOOD ORDERABLES Final Re sult Performing Organization Address City/State/[facility] Co de Phone Number [facility] [address] [place] [address], documented in this encounter Visit Diagnoses Not on filedocumented in this encounter Care Teams Cover Stripper Relationship Specialty Start Date End Date Pcp, No [address] [place] [address] PCP - General 12/02/20 02/08/23 Oren Pressley MD [address] [place] [address] PCP - General Internal Medicine 02/09/23 Sima Trejo MD [address] [phone] Medical Oncologist Hematology and Oncology 08/02/23 documented as of this encounter
--- OUTSIDE RECORDS SUMMARY | 2025-04-08 21:50 | XMS_ITS | Data Portability ---
Author Organization [facility] Address [address] [facility] [address] [place] [address] Care Team Providers Care Crude Unit Operator Name Role Phone COSTA, LESA Hematology/Oncology ADDISON GARSIA JR General Surgeon KYLAH FLEMING [...] examine the larynx and hypopharynx. All the telemarketing sales representative areas were examined and there were [...] recorded. Imaging electrocard iogram 2019 020 [email or web address] [facility], [address] [place] [address] , [facility], [place], [address], 0 16:11:53 Medication Orders None recorded. Patient TargetsNo targets recorded. Patient Instructions Encounter Date Encounter Id Patient Instructions Last Modified By Organization Details Last Modified Time 06/14/2019 [id number] patient has developed recurrent atrial fibrillation. Metoprolol [...] considering this. Not available 06/14/2019 15:43:24 08/22/2019 [id number] body mass index: care instructions srekhraj Not [...] contact us. Yasmany Nieto MD, FACP, FACC, [facility] Cardiology[facility]ly [facility] [phone] triniulises Not available 08/22/2019 11:33:04 Reason for Referral None Reported. Results Created Date Observation Date Name Description Value Unit Range Abnormal Flag Note LastModifiedBy Organization Detail LastModifiedTime 07/02/19 21 07/01/2020 PT/IN R prothrombin time 39.8 secon ds 9.0-11 .2 high Not Available [facility] [address] [facility], [place], [address], 07/01/2020 14:48:11 07/02/19 21 07/01/2020 PT/IN R [...] NICAL PROST HETIC VALVE S Not Available [facility] [address] [place] [address], [address], 07/01/2020 14:48:11 12/03/19 21 12/02/2020 COMP. METAB OLIC PANEL glucose 101 mg/dL 74-100 high Not Available [facility] [address] [place] [address], [address], 12/02/2020 14:39:20 12/03/19 21 12/02/2020 COMP. METAB OLIC PANEL blood urea nitrogen 15 mg/dL 6-20 normal Not Available [facility] [address] [place] [address], [address], 12/02/2020 14:39:20 12/03/19 21 12/02/2020 COMP. METAB OLIC PANEL creatinine 1.37 mg/dL 0.50-0 .95 high Not Available [facility] [address] [place] [address], [address], 12/02/2020 14:39:20 12/03/19 21 12/02/2020 COMP. METAB OLIC PANEL BUN/creatini ne ratio 11 (calc ) 10-20 normal Not Available [facility] [address] [place] [address], [address], 12/02/2020 14:39:20 12/03/19 21 12/02/2020 COMP. METAB OLIC PANEL sodium 133 mmol/ L 136-14 5 low Not Available [facility] [address] [place] [address], [address], 12/02/2020 14:39:20 12/03/19 21 12/02/2020 COMP. METAB OLIC PANEL potassium 4.4 mmol/ L 3.4-5. 0 normal Not Available [facility] [address] [place] [address], [address], 12/02/2020 14:39:20 12/03/19 21 12/02/2020 COMP. METAB OLIC PANEL chloride 96 mmol/ L 98-107 low Not Available [facility] [address] [place] [address], [address], 12/02/2020 14:39:20 12/03/19 21 12/02/2020 COMP. METAB OLIC PANEL carbon dioxide 22 mmol/ L 22-31 normal Not Available [facility] [address] [place] [address], [address], 12/02/2020 14:39:20 12/03/19 21 12/02/2020 COMP. METAB OLIC PANEL anion gap 15 (calc ) 7-25 normal Not Available [facility] [address] [place] [address], [address], 12/02/2020 14:39:20 12/03/19 21 12/02/2020 COMP. METAB OLIC PANEL calcium 9.2 mg/dL 8.6-10 .2 normal Not Available [facility] [address] [place] [address], [address], 12/02/2020 14:39:20 12/03/19 21 12/02/2020 COMP. METAB OLIC PANEL total protein 7.0 g/dL 6.4-8. 3 normal Not Available [facility] [address] [place] [address], [address], 12/02/2020 14:39:20 12/03/19 21 12/02/2020 COMP. METAB OLIC PANEL albumin 4.2 g/dL 3.5-5. 2 normal Not Available [facility] [address] [place] [address], [address], 12/02/2020 14:39:20 12/03/19 21 12/02/2020 COMP. METAB OLIC PANEL globulin 2.8 g/dL_ (calc ) 1.5-4. 5 normal Not Available [facility] [address] [place] [address], [address], 12/02/2020 14:39:20 12/03/19 21 12/02/2020 COMP. METAB OLIC PANEL albumin/glob ulin ratio 1.5 (calc ) 1.1-2. 5 normal Not Available [facility] [address] [place] [address], [address], 12/02/2020 14:39:20 12/03/19 21 12/02/2020 COMP. METAB OLIC PANEL bilirubin, total 0.6 mg/dL 0.1-1. 2 normal Not Available [facility] [address] [place] [address], [address], 12/02/2020 14:39:20 12/03/19 21 12/02/2020 COMP. METAB OLIC PANEL alkaline phosphatase 59 U/L 35-106 normal Not Available [facility] [address] [place] [address], [address], 12/02/2020 14:39:20 12/03/19 21 12/02/2020 COMP. METAB OLIC PANEL AST 20 U/L 0-32 normal Not Available [facility] [address] [place] [address], [address], 12/02/2020 14:39:20 12/03/19 21 12/02/2020 COMP. METAB OLIC PANEL ALT 13 U/L 0-33 normal Not Available [facility] [address] [place] [address], [address], 12/02/2020 14:39:20 12/03/19 21 12/02/2020 COMP. METAB OLIC PANEL GFR 43 >= 60 abnormal Not Available [facility] [address] [place] [address], [address], 12/02/2020 14:39:20 12/03/19 21 12/02/2020 COMP. METAB [...] Lina Campoverde y Found ation [email or web address] rg/pr ofess ional s/KDO QI/gf r_cal culat orPed Not Available [facility] [address] [place] [address], [address], 12/02/2020 14:39:20 12/03/19 21 12/02/2020 LDH LDH 184 U/L 135-23 3 normal Not Available [facility] [address] [place] [address], [address], 12/02/2020 14:26:02 12/03/19 21 12/02/2020 COMPL ETE BLOOD COUNT white blood cells 8.0 K/uL 3.8-10 .8 normal Not Available [facility] [address] [place], [address], 12/02/2020 13:31:25 12/03/19 21 12/02/2020 COMPL ETE BLOOD COUNT red blood cells 3.74 M/uL 3.80-5 .20 low Not Available [facility] [address] [place] [address], [address], 12/02/2020 13:31:25 12/03/19 21 12/02/2020 COMPL ETE BLOOD COUNT hemoglobin 11.1 g/dL 12.0-1 6.0 low Not Available [facility] [address] [place] [address], [address], 12/02/2020 13:31:25 12/03/19 21 12/02/2020 COMPL ETE BLOOD COUNT hematocrit 33.5 % 35.0-4 7.0 low Not Available [facility] [address] [place] [address], [address], 12/02/2020 13:31:25 12/03/19 21 12/02/2020 COMPL ETE BLOOD COUNT MCV 90 fL 80-100 normal Not Available [facility] [address] [place] [address], [address], 12/02/2020 13:31:25 12/03/19 21 12/02/2020 COMPL ETE BLOOD COUNT MCH 30 pg 26-35 normal Not Available [facility] [address] [place] [address], [address], 12/02/2020 13:31:25 12/03/19 21 12/02/2020 COMPL ETE BLOOD COUNT MCHC 33 g/dL 32-36 normal Not Available [facility] [address] [place] [address], [address], 12/02/2020 13:31:25 12/03/19 21 12/02/2020 COMPL ETE BLOOD COUNT RDW 15.4 % 11.0-1 5.0 high Not Available [facility] [address] [place] [address], [address], 12/02/2020 13:31:25 12/03/19 21 12/02/2020 COMPL ETE BLOOD COUNT MPV 8.8 fL 6.2-10 .5 normal Not Available [facility] [address] [place] [address], [address], 12/02/2020 13:31:25 12/03/19 21 12/02/2020 COMPL ETE BLOOD COUNT platelet count 162 K/uL 130-40 0 normal Not Available [facility] [address] [place] [address], [address], 12/02/2020 13:31:25 12/03/19 21 12/02/2020 COMPL ETE BLOOD COUNT neutrophil,a bsolute 5.1 K/uL 1.6-8. 4 normal Not Available [facility] [address] [place] [address], [address], 12/02/2020 13:31:25 12/03/19 21 12/02/2020 COMPL ETE BLOOD COUNT lymphocyte,a bsolute 2.0 K/uL 0.4-5. 1 normal Not Available [facility] [address] [place] [address], [address], 12/02/2020 13:31:25 12/03/19 21 12/02/2020 COMPL ETE BLOOD COUNT monocyte,abs olute 0.8 K/uL 0.0-1. 2 normal Not Available [facility] [address] [place] [address], [address], 12/02/2020 13:31:25 12/03/19 21 12/02/2020 COMPL ETE BLOOD COUNT eosinophil,a bsolute 0.1 K/uL 0.0-0. 8 normal Not Available [facility] [address] [place] [address], [address], 12/02/2020 13:31:25 12/03/19 21 12/02/2020 COMPL ETE BLOOD COUNT basophil,abs olute 0.1 K/uL 0.0-0. 3 normal Not Available [facility] [address] [place] [address], [address], 12/02/2020 13:31:25 12/03/19 21 12/02/2020 COMPL ETE BLOOD COUNT % neutrophils 62.9 % 42.0-7 8.0 normal Not Available [facility] [address] [place] [address], [address], 12/02/2020 13:31:25 12/03/19 21 12/02/2020 COMPL ETE BLOOD COUNT % lymphocytes 25.1 % 11.0-4 7.0 normal Not Available [facility] [address] [place] [address], [address], 12/02/2020 13:31:25 12/03/19 21 12/02/2020 COMPL ETE BLOOD COUNT % monocytes 10.2 % 0.0-11 .0 normal Not Available [facility] [address] [place] [address], [address], 12/02/2020 13:31:25 12/03/19 21 12/02/2020 COMPL ETE BLOOD COUNT % eosinophils 0.9 % 0.0-7. 0 normal Not Available [facility] [address] [place] [address], [address], 12/02/2020 13:31:25 12/03/19 21 12/02/2020 COMPL ETE BLOOD COUNT % basophils 0.9 % 0.0-3. 0 normal Not Available [facility] [address] [place] [address], [address], 12/02/2020 13:31:25 12/03/19 21 12/02/2020 COMPL ETE BLOOD COUNT nucleated red cells 0.1 % 0.0-0. 9 normal Not Available [facility] [address] [place] [address], [address], 12/02/2020 13:31:25 12/03/19 21 12/02/2020 COMPL ETE BLOOD COUNT nucleated RBCs, absolute 0.01 K/uL not estab. normal Not Available [facility] [address] [place] [address], [address], 12/02/2020 13:31:25 03/31/20 21 03/31/2021 COMP. METAB OLIC PANEL glucose 113 mg/dL 74-100 high Not Available [facility] [address] [place] [address], [address], 03/31/2021 13:54:59 03/31/20 21 03/31/2021 COMP. METAB OLIC PANEL blood urea nitrogen 41 mg/dL 6-20 high Not Available [facility] [address] [place] [address], [address], 03/31/2021 13:54:59 03/31/20 21 03/31/2021 COMP. METAB OLIC PANEL creatinine 1.91 mg/dL 0.50-0 .95 high Not Available [facility] [address] [place] [address], [address], 03/31/2021 13:54:59 03/31/20 21 03/31/2021 COMP. METAB OLIC PANEL BUN/creatini ne ratio 21 (calc ) 10-20 high Not Available [facility] [address] [place] [address], [address], 03/31/2021 13:54:59 03/31/20 21 03/31/2021 COMP. METAB OLIC PANEL sodium 136 mmol/ L 136-14 5 normal Not Available [facility] [address] [place] [address], [address], 03/31/2021 13:54:59 03/31/20 21 03/31/2021 COMP. METAB OLIC PANEL potassium 4.9 mmol/ L 3.4-5. 0 normal Not Available [facility] [address] [place] [address], [address], 03/31/2021 13:54:59 03/31/20 21 03/31/2021 COMP. METAB OLIC PANEL chloride 99 mmol/ L 98-107 normal Not Available [facility] [address] [place] [address], [address], 03/31/2021 13:54:59 03/31/20 21 03/31/2021 COMP. METAB OLIC PANEL carbon dioxide 26 mmol/ L 22-31 normal Not Available [facility] [address] [place] [address], [address], 03/31/2021 13:54:59 03/31/20 21 03/31/2021 COMP. METAB OLIC PANEL anion gap 11 (calc ) 7-25 normal Not Available [facility] [address] [place] [address], [address], 03/31/2021 13:54:59 03/31/20 21 03/31/2021 COMP. METAB OLIC PANEL calcium 9.3 mg/dL 8.6-10 .2 normal Not Available [facility] [address] [place] [address], [address], 03/31/2021 13:54:59 03/31/20 21 03/31/2021 COMP. METAB OLIC PANEL total protein 6.7 g/dL 6.4-8. 3 normal Not Available [facility] [address] [place] [address], [address], 03/31/2021 13:54:59 03/31/20 21 03/31/2021 COMP. METAB OLIC PANEL albumin 4.4 g/dL 3.5-5. 2 normal Not Available [facility] [address] [place] [address], [address], 03/31/2021 13:54:59 03/31/20 21 03/31/2021 COMP. METAB OLIC PANEL globulin 2.3 g/dL_ (calc ) 1.5-4. 5 normal Not Available [facility] [address] [place] [address], [address], 03/31/2021 13:54:59 03/31/20 21 03/31/2021 COMP. METAB OLIC PANEL albumin/glob ulin ratio 1.9 (calc ) 1.1-2. 5 normal Not Available [facility] [address] [place] [address], [address], 03/31/2021 13:54:59 03/31/20 21 03/31/2021 COMP. METAB OLIC PANEL bilirubin, total 0.4 mg/dL 0.1-1. 2 normal Not Available [facility] [address] [place] [address], [address], 03/31/2021 13:54:59 03/31/20 21 03/31/2021 COMP. METAB OLIC PANEL alkaline phosphatase 54 U/L 30-121 normal Not Available [facility] [address] [place], [address], 03/31/2021 13:54:59 03/31/20 21 03/31/2021 COMP. METAB OLIC PANEL AST 15 U/L 0-32 normal Not Available [facility] [address] [place] [address], [address], 03/31/2021 13:54:59 03/31/20 21 03/31/2021 COMP. METAB OLIC PANEL ALT 12 U/L 0-33 normal Not Available [facility] [address] [place] [address], [address], 03/31/2021 13:54:59 03/31/20 21 03/31/2021 COMP. METAB OLIC PANEL GFR 29 >= 60 abnormal Not Available [facility] [address] [place], [address], 03/31/2021 13:54:59 03/31/20 21 03/31/2021 COMP. METAB [...] tric patie nts refer to Natio nal Kidne y Found ation [email or web address] rg/pr ofess ional s/KDO QI/gf r_cal culat orPed Not Available [facility] [address] [place], [address], 03/31/2021 13:54:59 03/31/20 21 03/31/2021 LDH LDH 177 U/L 135-23 3 normal Not Available [facility] [address] [place] [address], [address], 03/31/2021 13:54:26 03/31/20 21 03/31/2021 COMPL ETE BLOOD COUNT white blood cells 8.0 K/uL 3.8-10 .8 normal Not Available [facility] [address] [place] [address], [address], 03/31/2021 13:27:07 03/31/20 21 03/31/2021 COMPL ETE BLOOD COUNT red blood cells 4.07 M/uL 3.80-5 .20 normal Not Available [facility] [address] [place] [address], [address], 03/31/2021 13:27:07 03/31/20 21 03/31/2021 COMPL ETE BLOOD COUNT hemoglobin 12.1 g/dL 12.0-1 6.0 normal Not Available [facility] [address] [place] [address], [address], 03/31/2021 13:27:07 03/31/20 21 03/31/2021 COMPL ETE BLOOD COUNT hematocrit 36.2 % 35.0-4 7.0 normal Not Available [facility] [address] [place] [address], [address], 03/31/2021 13:27:07 03/31/20 21 03/31/2021 COMPL ETE BLOOD COUNT MCV 89 fL 80-100 normal Not Available [facility] [address] [place] [address], [address], 03/31/2021 13:27:07 03/31/20 21 03/31/2021 COMPL ETE BLOOD COUNT MCH 30 pg 26-35 normal Not Available [facility] [address] [place] [address], [address], 03/31/2021 13:27:07 03/31/20 21 03/31/2021 COMPL ETE BLOOD COUNT MCHC 33 g/dL 32-36 normal Not Available [facility] [address] [place] [address], [address], 03/31/2021 13:27:07 03/31/20 21 03/31/2021 COMPL ETE BLOOD COUNT RDW 17.5 % 11.0-1 5.0 high Not Available [facility] [address] [place] [address], [address], 03/31/2021 13:27:07 03/31/20 21 03/31/2021 COMPL ETE BLOOD COUNT MPV 8.7 fL 6.2-10 .5 normal Not Available [facility] [address] [place] [address], [address], 03/31/2021 13:27:07 03/31/20 21 03/31/2021 COMPL ETE BLOOD COUNT platelet count 148 K/uL 130-40 0 normal Not Available [facility] [address] [place] [address], [address], 03/31/2021 13:27:07 03/31/20 21 03/31/2021 COMPL ETE BLOOD COUNT neutrophil,a bsolute 4.6 K/uL 1.6-8. 4 normal Not Available [facility] [address] [place] [address], [address], 03/31/2021 13:27:07 03/31/20 21 03/31/2021 COMPL ETE BLOOD COUNT lymphocyte,a bsolute 2.6 K/uL 0.4-5. 1 normal Not Available [facility] [address] [place] [address], [address], 03/31/2021 13:27:07 03/31/20 21 03/31/2021 COMPL ETE BLOOD COUNT monocyte,abs olute 0.6 K/uL 0.0-1. 2 normal Not Available [facility] [address] [place] [address], [address], 03/31/2021 13:27:07 03/31/20 21 03/31/2021 COMPL ETE BLOOD COUNT eosinophil,a bsolute 0.1 K/uL 0.0-0. 8 normal Not Available [facility] [address] [place] [address], [address], 03/31/2021 13:27:07 03/31/20 21 03/31/2021 COMPL ETE BLOOD COUNT basophil,abs olute 0.1 K/uL 0.0-0. 3 normal Not Available [facility] [address] [place] [address], [address], 03/31/2021 13:27:07 03/31/20 21 03/31/2021 COMPL ETE BLOOD COUNT % neutrophils 57.9 % 42.0-7 8.0 normal Not Available [facility] [address] [place] [address], [address], 03/31/2021 13:27:07 03/31/20 21 03/31/2021 COMPL ETE BLOOD COUNT % lymphocytes 32.4 % 11.0-4 7.0 normal Not Available [facility] [address] [place] [address], [address], 03/31/2021 13:27:07 03/31/20 21 03/31/2021 COMPL ETE BLOOD COUNT % monocytes 8.0 % 0.0-11 .0 normal Not Available [facility] [address] [place] [address], [address], 03/31/2021 13:27:07 03/31/20 21 03/31/2021 COMPL ETE BLOOD COUNT % eosinophils 0.8 % 0.0-7. 0 normal Not Available [facility] [address] [place] [address], [address], 03/31/2021 13:27:07 03/31/20 21 03/31/2021 COMPL ETE BLOOD COUNT % basophils 0.9 % 0.0-3. 0 normal Not Available [facility] [address] [place] [address], [address], 03/31/2021 13:27:07 03/31/20 21 03/31/2021 COMPL ETE BLOOD COUNT nucleated red cells 0.0 % 0.0-0. 9 normal Not Available [facility] [address] [place] [address], [address], 03/31/2021 13:27:07 03/31/20 21 03/31/2021 COMPL ETE BLOOD COUNT nucleated RBCs, absolute 0.00 K/uL not estab. normal Not Available [facility] [address] [place] [address], [address], 03/31/2021 13:27:07 06/02/19 22 06/02/2021 LDH LDH 173 U/L 135-23 3 normal Not Available [facility] [address] [place] [address], [address], 06/02/2021 13:12:48 06/02/19 22 06/02/2021 COMP. METAB OLIC PANEL glucose 119 mg/dL 74-100 high Not Available [facility] [address] [place] [address], [address], 06/02/2021 13:11:46 06/02/19 22 06/02/2021 COMP. METAB OLIC PANEL blood urea nitrogen 27 mg/dL 6-20 high Not Available [facility] [address] [place] [address], [address], 06/02/2021 13:11:46 06/02/19 22 06/02/2021 COMP. METAB OLIC PANEL creatinine 1.62 mg/dL 0.50-0 .95 high Not Available [facility] [address] [place] [address], [address], 06/02/2021 13:11:46 06/02/19 22 06/02/2021 COMP. METAB OLIC PANEL BUN/creatini ne ratio 17 (calc ) 10-20 normal Not Available [facility] [address] [place] [address], [address], 06/02/2021 13:11:46 06/02/19 22 06/02/2021 COMP. METAB OLIC PANEL sodium 142 mmol/ L 136-14 5 normal Not Available [facility] [address] [place] [address], [address], 06/02/2021 13:11:46 06/02/19 22 06/02/2021 COMP. METAB OLIC PANEL potassium 4.3 mmol/ L 3.4-5. 0 normal Not Available [facility] [address] [place] [address], [address], 06/02/2021 13:11:46 06/02/19 22 06/02/2021 COMP. METAB OLIC PANEL chloride 103 mmol/ L 98-107 normal Not Available [facility] [address] [place] [address], [address], 06/02/2021 13:11:46 06/02/19 22 06/02/2021 COMP. METAB OLIC PANEL carbon dioxide 24 mmol/ L 22-31 normal Not Available [facility] [address] [place] [address], [address], 06/02/2021 13:11:46 06/02/19 22 06/02/2021 COMP. METAB OLIC PANEL anion gap 15 (calc ) 7-25 normal Not Available [facility] [address] [place] [address], [address], 06/02/2021 13:11:46 06/02/19 22 06/02/2021 COMP. METAB OLIC PANEL calcium 9.3 mg/dL 8.6-10 .2 normal Not Available [facility] [address] [place] [address], [address], 06/02/2021 13:11:46 06/02/19 22 06/02/2021 COMP. METAB OLIC PANEL total protein 6.4 g/dL 6.4-8. 3 normal Not Available [facility] [address] [place] [address], [address], 06/02/2021 13:11:46 06/02/19 22 06/02/2021 COMP. METAB OLIC PANEL albumin 4.4 g/dL 3.5-5. 2 normal Not Available [facility] [address] [place] [address], [address], 06/02/2021 13:11:46 06/02/19 22 06/02/2021 COMP. METAB OLIC PANEL globulin 2.0 g/dL_ (calc ) 1.5-4. 5 normal Not Available [facility] [address] [place] [address], [address], 06/02/2021 13:11:46 06/02/19 22 06/02/2021 COMP. METAB OLIC PANEL albumin/glob ulin ratio 2.2 (calc ) 1.1-2. 5 normal Not Available [facility] [address] [place] [address], [address], 06/02/2021 13:11:46 06/02/19 22 06/02/2021 COMP. METAB OLIC PANEL bilirubin, total 0.3 mg/dL 0.1-1. 2 normal Not Available [facility] [address] [place] [address], [address], 06/02/2021 13:11:46 06/02/19 22 06/02/2021 COMP. METAB OLIC PANEL alkaline phosphatase 82 U/L 30-121 normal Not Available [facility] [address] [place] [address], [address], 06/02/2021 13:11:46 06/02/19 22 06/02/2021 COMP. METAB OLIC PANEL AST 17 U/L 0-32 normal Not Available [facility] [address] [place] [address], [address], 06/02/2021 13:11:46 06/02/19 22 06/02/2021 COMP. METAB OLIC PANEL ALT 17 U/L 0-33 normal Not Available [facility] [address] [place] [address], [address], 06/02/2021 13:11:46 06/02/19 22 06/02/2021 COMP. METAB OLIC PANEL GFR 35 >= 60 abnormal Not Available [facility] [address] [place] [address], [address], 06/02/2021 13:11:46 06/02/19 22 06/02/2021 COMP. METAB [...] s/KDO QI/gf r_cal culat orPed Not Available [facility] [address] [place] [address], [address], 06/02/2021 13:11:46 06/02/19 22 06/02/2021 COMPL ETE BLOOD COUNT white blood cells 7.1 K/uL 3.8-10 .8 normal Not Available [facility] [address] [place], [place] [address], [address], 06/02/2021 12:53:47 06/02/19 22 06/02/2021 COMPL ETE BLOOD COUNT red blood cells 4.41 M/uL 3.80-5 .20 normal Not Available [facility] [address] [place] [address], [address], 06/02/2021 12:53:47 06/02/19 22 06/02/2021 COMPL ETE BLOOD COUNT hemoglobin 13.6 g/dL 12.0-1 6.0 normal Not Available [facility] [address] [place] [address], [address], 06/02/2021 12:53:47 02/14/20 22 06/02/2021 COMPL ETE BLOOD COUNT hematocrit 40.9 % 35.0-4 7.0 normal Not Available [facility] [address] [place] [address], [address], 06/02/2021 12:53:47 06/02/19 22 06/02/2021 COMPL ETE BLOOD COUNT MCV 93 fL 80-100 normal Not Available [facility] [address] [place] [address], [address], 06/02/2021 12:53:47 06/02/19 22 06/02/2021 COMPL ETE BLOOD COUNT MCH 31 pg 26-35 normal Not Available [facility] [address] [place] [address], [address], 06/02/2021 12:53:47 06/02/19 22 06/02/2021 COMPL ETE BLOOD COUNT MCHC 33 g/dL 32-36 normal Not Available [facility] [address] [place] [address], [address], 06/02/2021 12:53:47 06/02/19 22 06/02/2021 COMPL ETE BLOOD COUNT RDW 14.6 % 11.0-1 5.0 normal Not Available [facility] [address] [place] [address], [address], 06/02/2021 12:53:47 06/02/19 22 06/02/2021 COMPL ETE BLOOD COUNT MPV 7.3 fL 6.2-10 .5 normal Not Available [facility] [address] [place] [address], [address], 06/02/2021 12:53:47 06/02/19 22 06/02/2021 COMPL ETE BLOOD COUNT platelet count 198 K/uL 130-40 0 normal Not Available [facility] [address] [place] [address], [address], 06/02/2021 12:53:47 06/02/19 22 06/02/2021 COMPL ETE BLOOD COUNT neutrophil,a bsolute 4.1 K/uL 1.6-8. 4 normal Not Available [facility] [address] [place] [address], [address], 06/02/2021 12:53:47 06/02/19 22 06/02/2021 COMPL ETE BLOOD COUNT lymphocyte,a bsolute 2.1 K/uL 0.4-5. 1 normal Not Available [facility] [address] [place] [address], [address], 06/02/2021 12:53:47 06/02/19 22 06/02/2021 COMPL ETE BLOOD COUNT monocyte,abs olute 0.7 K/uL 0.0-1. 2 normal Not Available [facility] [address] [place] [address], [address], 06/02/2021 12:53:47 06/02/19 22 06/02/2021 COMPL ETE BLOOD COUNT eosinophil,a bsolute 0.1 K/uL 0.0-0. 8 normal Not Available [facility] [address] [place] [address], [address], 06/02/2021 12:53:47 06/02/19 22 06/02/2021 COMPL ETE BLOOD COUNT basophil,abs olute 0.1 K/uL 0.0-0. 3 normal Not Available [facility] [address] [place] [address], [address], 06/02/2021 12:53:47 06/02/19 22 06/02/2021 COMPL ETE BLOOD COUNT % neutrophils 58.0 % 42.0-7 8.0 normal Not Available [facility] [address] [place] [address], [address], 06/02/2021 12:53:47 06/02/19 22 06/02/2021 COMPL ETE BLOOD COUNT % lymphocytes 30.1 % 11.0-4 7.0 normal Not Available [facility] [address] [place] [address], [address], 06/02/2021 12:53:47 06/02/19 22 06/02/2021 COMPL ETE BLOOD COUNT % monocytes 9.4 % 0.0-11 .0 normal Not Available [facility] [address] [place] [address], [address], 06/02/2021 12:53:47 06/02/19 22 06/02/2021 COMPL ETE BLOOD COUNT % eosinophils 1.5 % 0.0-7. 0 normal Not Available [facility] [address] [place] [address], [address], 06/02/2021 12:53:47 06/02/19 22 06/02/2021 COMPL ETE BLOOD COUNT % basophils 1.0 % 0.0-3. 0 normal Not Available [facility] [address] [place] [address], [address], 06/02/2021 12:53:47 06/02/19 22 06/02/2021 COMPL ETE BLOOD COUNT nucleated red cells 0.1 % 0.0-0. 9 normal Not Available [facility] [address] [place] [address], [address], 06/02/2021 12:53:47 06/02/19 22 06/02/2021 COMPL ETE BLOOD COUNT nucleated RBCs, absolute 0.01 K/uL not estab. normal Not Available [facility] [address] [place] [address], [address], 06/02/2021 12:53:47 08/05/19 22 08/04/2021 LDH LDH 187 U/L 135-23 3 normal Not Available [facility] [address] [place] [address], [address], 08/04/2021 14:51:41 08/05/19 22 08/04/2021 COMP. METAB OLIC PANEL glucose 99 mg/dL 74-100 normal Not Available [facility] [address] [place] [address], [address], 08/04/2021 14:32:05 08/05/19 22 08/04/2021 COMP. METAB OLIC PANEL blood urea nitrogen 23 mg/dL 6-20 high Not Available [facility] [address] [place] [address], [address], 08/04/2021 14:32:05 08/05/19 22 08/04/2021 COMP. METAB OLIC PANEL creatinine 1.69 mg/dL 0.50-0 .95 high Not Available [facility] [address] [place] [address], [address], 08/04/2021 14:32:05 08/05/19 22 08/04/2021 COMP. METAB OLIC PANEL BUN/creatini ne ratio 14 (calc ) 10-20 normal Not Available [facility] [address] [place] [address], [address], 08/04/2021 14:32:05 08/05/19 22 08/04/2021 COMP. METAB OLIC PANEL sodium 139 mmol/ L 136-14 5 normal Not Available [facility] [address] [place] [address], [address], 08/04/2021 14:32:05 08/05/19 22 08/04/2021 COMP. METAB OLIC PANEL potassium 4.1 mmol/ L 3.4-5. 0 normal Not Available [facility] [address] [place] [address], [address], 08/04/2021 14:32:05 08/05/19 22 08/04/2021 COMP. METAB OLIC PANEL chloride 105 mmol/ L 98-107 normal Not Available [facility] [address] [place] [address], [address], 08/04/2021 14:32:05 08/05/19 22 08/04/2021 COMP. METAB OLIC PANEL carbon dioxide 20 mmol/ L 22-31 low Not Available [facility] [address] [place] [address], [address], 08/04/2021 14:32:05 08/05/19 22 08/04/2021 COMP. METAB OLIC PANEL anion gap 14 (calc ) 7-25 normal Not Available [facility] [address] [place] [address], [address], 08/04/2021 14:32:05 08/05/19 22 08/04/2021 COMP. METAB OLIC PANEL calcium 9.0 mg/dL 8.6-10 .2 normal Not Available [facility] [address] [place] [address], [address], 08/04/2021 14:32:05 08/05/19 22 08/04/2021 COMP. METAB OLIC PANEL total protein 6.4 g/dL 6.4-8. 3 normal Not Available [facility] [address] [place] [address], [address], 08/04/2021 14:32:05 08/05/19 22 08/04/2021 COMP. METAB OLIC PANEL albumin 3.9 g/dL 3.5-5. 2 normal Not Available [facility] [address] [place] [address], [address], 08/04/2021 14:32:05 08/05/19 22 08/04/2021 COMP. METAB OLIC PANEL globulin 2.5 g/dL_ (calc ) 1.5-4. 5 normal Not Available [facility] [address] [place] [address], [address], 08/04/2021 14:32:05 08/05/19 22 08/04/2021 COMP. METAB OLIC PANEL albumin/glob ulin ratio 1.6 (calc ) 1.1-2. 5 normal Not Available [facility] [address] [place] [address], [address], 08/04/2021 14:32:05 08/05/19 22 08/04/2021 COMP. METAB OLIC PANEL bilirubin, total 0.3 mg/dL 0.1-1. 2 normal Not Available [facility] [address] [place] [address], [address], 08/04/2021 14:32:05 08/05/19 22 08/04/2021 COMP. METAB OLIC PANEL alkaline phosphatase 69 U/L 30-121 normal Not Available [facility] [address] [place] [address], [address], 08/04/2021 14:32:05 08/05/19 22 08/04/2021 COMP. METAB OLIC PANEL AST 11 U/L 0-32 normal Not Available [facility] [address] [place] [address], [address], 08/04/2021 14:32:05 08/05/19 22 08/04/2021 COMP. METAB OLIC PANEL ALT 13 U/L 0-33 normal Not Available [facility] [address] [place] [address], [address], 08/04/2021 14:32:05 08/05/19 22 08/04/2021 COMP. METAB OLIC PANEL GFR 33 >= 60 abnormal Not Available [facility] [address] [place] [address], [address], 08/04/2021 14:32:05 08/05/19 22 08/04/2021 COMP. METAB [...] tric patie nts refer to [facility] ation https :[email or web address] rg/pr ofess ional s/KDO QI/gf r_cal culat orPed Not Available [facility] [address] [place] [address], [address], 08/04/2021 14:32:05 08/05/19 22 08/04/2021 COMPL ETE BLOOD COUNT white blood cells 6.0 K/uL 3.8-10 .8 normal Not Available [facility] [address] [place] [address], [address], 08/04/2021 13:14:55 08/05/19 22 08/04/2021 COMPL ETE BLOOD COUNT red blood cells 3.89 M/uL 3.80-5 .20 normal Not Available [facility] [address] [place] [address], [address], 08/04/2021 13:14:55 08/05/19 22 08/04/2021 COMPL ETE BLOOD COUNT hemoglobin 11.9 g/dL 12.0-1 6.0 low Not Available [facility] [address] [place] [address], [address], 08/04/2021 13:14:55 08/05/19 22 08/04/2021 COMPL ETE BLOOD COUNT hematocrit 36.0 % 35.0-4 7.0 normal Not Available [facility] [address] [place] [address], [address], 08/04/2021 13:14:55 08/05/19 22 08/04/2021 COMPL ETE BLOOD COUNT MCV 93 fL 80-100 normal Not Available [facility] [address] [place] [address], [address], 08/04/2021 13:14:55 08/05/19 22 08/04/2021 COMPL ETE BLOOD COUNT MCH 31 pg 26-35 normal Not Available [facility] [address] [place] [address], [address], 08/04/2021 13:14:55 08/05/19 22 08/04/2021 COMPL ETE BLOOD COUNT MCHC 33 g/dL 32-36 normal Not Available [facility] [address] [place] [address], [address], 08/04/2021 13:14:55 08/05/19 22 08/04/2021 COMPL ETE BLOOD COUNT RDW 15.0 % 11.0-1 5.0 normal Not Available [facility] [address] [place] [address], [address], 08/04/2021 13:14:55 08/05/19 22 08/04/2021 COMPL ETE BLOOD COUNT MPV 7.1 fL 6.2-10 .5 normal Not Available [facility] [address] [place] [address], [address], 08/04/2021 13:14:55 08/05/19 22 08/04/2021 COMPL ETE BLOOD COUNT platelet count 131 K/uL 130-40 0 normal Not Available [facility] [address] [place] [address], [address], 08/04/2021 13:14:55 08/05/19 22 08/04/2021 COMPL ETE BLOOD COUNT neutrophil,a bsolute 4.0 K/uL 1.6-8. 4 normal Not Available [facility] [address] [place] [address], [address], 08/04/2021 13:14:55 08/05/19 22 08/04/2021 COMPL ETE BLOOD COUNT lymphocyte,a bsolute 1.3 K/uL 0.4-5. 1 normal Not Available [facility] [address] [place] [address], [address], 08/04/2021 13:14:55 08/05/19 22 08/04/2021 COMPL ETE BLOOD COUNT monocyte,abs olute 0.4 K/uL 0.0-1. 2 normal Not Available [facility] [address] [place] [address], [address], 08/04/2021 13:14:55 08/05/19 22 08/04/2021 COMPL ETE BLOOD COUNT eosinophil,a bsolute 0.1 K/uL 0.0-0. 8 normal Not Available [facility] [address] [place] [address], [address], 08/04/2021 13:14:55 08/05/19 22 08/04/2021 COMPL ETE BLOOD COUNT basophil,abs olute 0.0 K/uL 0.0-0. 3 normal Not Available [facility] [address] [place] [address], [address], 08/04/2021 13:14:55 08/05/19 22 08/04/2021 COMPL ETE BLOOD COUNT % neutrophils 68.0 % 42.0-7 8.0 normal Not Available [facility] [address] [place] [address], [address], 08/04/2021 13:14:55 08/05/19 22 08/04/2021 COMPL ETE BLOOD COUNT % lymphocytes 21.8 % 11.0-4 7.0 normal Not Available [facility] [address] [place] [address], [address], 08/04/2021 13:14:55 08/05/19 22 08/04/2021 COMPL ETE BLOOD COUNT % monocytes 7.3 % 0.0-11 .0 normal Not Available [facility] [address] [place] [address], [address], 08/04/2021 13:14:55 08/05/19 22 08/04/2021 COMPL ETE BLOOD COUNT % eosinophils 2.1 % 0.0-7. 0 normal Not Available [facility] [address] [place] [address], [address], 08/04/2021 13:14:55 08/05/19 22 08/04/2021 COMPL ETE BLOOD COUNT % basophils 0.8 % 0.0-3. 0 normal Not Available [facility] [address] [place] [address], [address], 08/04/2021 13:14:55 08/05/19 22 08/04/2021 COMPL ETE BLOOD COUNT nucleated red cells 0.1 % 0.0-0. 9 normal Not Available [facility] [address] [place], [address], 08/04/2021 13:14:55 08/05/19 22 08/04/2021 COMPL ETE BLOOD COUNT nucleated RBCs, absolute 0.01 K/uL not estab. normal Not Available [facility] [address] [place], [address], 08/04/2021 13:14:55 02/18/20 22 02/17/2022 URIC ACID uric acid 7.5 mg/dL 2.4-5. 7 high Refer ence range s are based on [facility] norms and do not neces elesa slater late with treat ment targe ts. [...] mstan my. Arthr itis Care and Resea [facility] Vol 64 No 10, 2011 Michelle can Colle ge of Rheum atolo gy ----- ----- ----- ----- ----- ----- ----- ----- ----- ----- ----- ---- Not Available [facility] [address] [place], [address], 02/17/2022 13:26:54 02/18/20 22 02/17/2022 COMP. METAB OLIC PANEL glucose 98 mg/dL 74-100 normal Not Available [facility] [address] [place], [address], 02/17/2022 13:26:53 02/18/20 22 02/17/2022 COMP. METAB OLIC PANEL blood urea nitrogen 21 mg/dL 6-20 high Not Available [facility] [address] [place] [address], [address], 02/17/2022 13:26:53 02/18/20 22 02/17/2022 COMP. METAB OLIC PANEL creatinine 1.34 mg/dL 0.50-0 .95 high Not Available [facility] [address] [place] [address], [address], 02/17/2022 13:26:53 02/18/20 22 02/17/2022 COMP. METAB OLIC PANEL BUN/creatini ne ratio 16 (calc ) 10-20 normal Not Available [facility] [address] [place] [address], [address], 02/17/2022 13:26:53 02/18/20 22 02/17/2022 COMP. METAB OLIC PANEL sodium 138 mmol/ L 136-14 5 normal Not Available [facility] [address] [place] [address], [address], 02/17/2022 13:26:53 02/18/20 22 02/17/2022 COMP. METAB OLIC PANEL potassium 4.0 mmol/ L 3.4-5. 0 normal Not Available [facility] [address] [place] [address], [address], 02/17/2022 13:26:53 02/18/20 22 02/17/2022 COMP. METAB OLIC PANEL chloride 103 mmol/ L 98-107 normal Not Available [facility] [address] [place] [address], [address], 02/17/2022 13:26:53 02/18/20 22 02/17/2022 COMP. METAB OLIC PANEL carbon dioxide 24 mmol/ L 22-31 normal Not Available [facility] [address] [place] [address], [address], 02/17/2022 13:26:53 02/18/20 22 02/17/2022 COMP. METAB OLIC PANEL anion gap 11 (calc ) 7-25 normal Not Available [facility] [address] [place] [address], [address], 02/17/2022 13:26:53 02/18/20 22 02/17/2022 COMP. METAB OLIC PANEL calcium 9.1 mg/dL 8.6-10 .2 normal Not Available [facility] [address] [place] [address], [address], 02/17/2022 13:26:53 02/18/20 22 02/17/2022 COMP. METAB OLIC PANEL total protein 6.9 g/dL 6.4-8. 3 normal Not Available [facility] [address] [place] [address], [address], 02/17/2022 13:26:53 02/18/20 22 02/17/2022 COMP. METAB OLIC PANEL albumin 4.2 g/dL 3.5-5. 2 normal Not Available [facility] [address] [place] [address], [address], 02/17/2022 13:26:53 02/18/20 22 02/17/2022 COMP. METAB OLIC PANEL globulin 2.7 g/dL_ (calc ) 1.5-4. 5 normal Not Available [facility] [address] [place] [address], [address], 02/17/2022 13:26:53 02/18/20 22 02/17/2022 COMP. METAB OLIC PANEL albumin/glob ulin ratio 1.6 (calc ) 1.1-2. 5 normal Not Available [facility] [address] [place] [address], [address], 02/17/2022 13:26:53 02/18/20 22 02/17/2022 COMP. METAB OLIC PANEL bilirubin, total 0.4 mg/dL 0.1-1. 2 normal Not Available [facility] [address] [place], [address], 02/17/2022 13:26:53 02/18/20 22 02/17/2022 COMP. METAB OLIC PANEL alkaline phosphatase 79 U/L 30-121 normal Not Available [facility] [address] [place], [address], 02/17/2022 13:26:53 02/18/20 22 02/17/2022 COMP. METAB OLIC PANEL AST 17 U/L 0-32 normal Not Available [facility] [address] [place], [address], 02/17/2022 13:26:53 02/18/20 22 02/17/2022 COMP. METAB OLIC PANEL ALT 15 U/L 0-33 normal Not Available [facility] [address] [place], [address], 02/17/2022 13:26:53 02/18/20 22 02/17/2022 COMP. METAB OLIC PANEL GFR 40 >= 60 abnormal NOT E New calcu latio n for GFR (CKD- EPI 2020) is formu lated witho ut race adjus tment facto rs at the recom menda tion of the L[facility] Campoverde y Seth galindo and Michelle puentes [facility] Nephr [facility]logy . This calcu latio n has not been valid ated in pregn ant women . For pedia tric patie nts refer to https :[email or web address] rg/pr lia adorno s/KDO QI/gf r_cal culat orPed Not Available [facility] [address] [place], [address], 02/17/2022 13:26:53 02/18/20 22 02/17/2022 LDH LDH 163 U/L 135-23 3 normal Not Available [facility] [address] [place], [address], 02/17/2022 13:26:21 02/18/20 22 02/17/2022 COMPL ETE BLOOD COUNT white blood cells 6.1 K/uL 3.8-10 .8 normal Not Available [facility] [address] [place] [address], [address], 02/17/2022 12:59:23 02/18/20 22 02/17/2022 COMPL ETE BLOOD COUNT red blood cells 4.03 M/uL 3.80-5 .20 normal Not Available [facility] [address] [place] [address], [address], 02/17/2022 12:59:23 02/18/20 22 02/17/2022 COMPL ETE BLOOD COUNT hemoglobin 12.1 g/dL 12.0-1 6.0 normal Not Available [facility] [address] [place] [address], [address], 02/17/2022 12:59:23 02/18/20 22 02/17/2022 COMPL ETE BLOOD COUNT hematocrit 35.9 % 35.0-4 7.0 normal Not Available [facility] [address] [place] [address], [address], 02/17/2022 12:59:23 02/18/20 22 02/17/2022 COMPL ETE BLOOD COUNT MCV 89 fL 80-100 normal Not Available [facility] [address] [place] [address], [address], 02/17/2022 12:59:23 02/18/20 22 02/17/2022 COMPL ETE BLOOD COUNT MCH 30 pg 26-35 normal Not Available [facility] [address] [place] [address], [address], 02/17/2022 12:59:23 02/18/20 22 02/17/2022 COMPL ETE BLOOD COUNT MCHC 34 g/dL 32-36 normal Not Available [facility] [address] [place] [address], [address], 02/17/2022 12:59:23 02/18/20 22 02/17/2022 COMPL ETE BLOOD COUNT RDW 14.6 % 11.0-1 5.0 normal Not Available [facility] [address] [place] [address], [address], 02/17/2022 12:59:23 02/18/20 22 02/17/2022 COMPL ETE BLOOD COUNT MPV 7.3 fL 6.2-10 .5 normal Not Available [facility] [address] [place] [address], [address], 02/17/2022 12:59:23 02/18/20 22 02/17/2022 COMPL ETE BLOOD COUNT platelet count 180 K/uL 130-40 0 normal Not Available [facility] [address] [place] [address], [address], 02/17/2022 12:59:23 02/18/20 22 02/17/2022 COMPL ETE BLOOD COUNT neutrophil,a bsolute 3.8 K/uL 1.6-8. 4 normal Not Available [facility] [address] [place] [address], [address], 02/17/2022 12:59:23 02/18/20 22 02/17/2022 COMPL ETE BLOOD COUNT lymphocyte,a bsolute 1.6 K/uL 0.4-5. 1 normal Not Available [facility] [address] [place] [address], [address], 02/17/2022 12:59:23 02/18/20 22 02/17/2022 COMPL ETE BLOOD COUNT monocyte,abs olute 0.5 K/uL 0.0-1. 2 normal Not Available [facility] [address] [place] [address], [address], 02/17/2022 12:59:23 02/18/20 22 02/17/2022 COMPL ETE BLOOD COUNT eosinophil,a bsolute 0.1 K/uL 0.0-0. 8 normal Not Available [facility] [address] [place] [address], [address], 02/17/2022 12:59:23 02/18/20 22 02/17/2022 COMPL ETE BLOOD COUNT basophil,abs olute 0.1 K/uL 0.0-0. 3 normal Not Available [facility] [address] [place] [address], [address], 02/17/2022 12:59:23 02/18/20 22 02/17/2022 COMPL ETE BLOOD COUNT % neutrophils 62.4 % 42.0-7 8.0 normal Not Available [facility] [address] [place] [address], [address], 02/17/2022 12:59:23 02/18/20 22 02/17/2022 COMPL ETE BLOOD COUNT % lymphocytes 25.6 % 11.0-4 7.0 normal Not Available [facility] [address] [place] [address], [address], 02/17/2022 12:59:23 02/18/20 22 02/17/2022 COMPL ETE BLOOD COUNT % monocytes 9.0 % 0.0-11 .0 normal Not Available [facility] [address] [place] [address], [address], 02/17/2022 12:59:23 02/18/20 22 02/17/2022 COMPL ETE BLOOD COUNT % eosinophils 2.0 % 0.0-7. 0 normal Not Available [facility] [address] [place] [address], [address], 02/17/2022 12:59:23 02/18/20 22 02/17/2022 COMPL ETE BLOOD COUNT % basophils 1.0 % 0.0-3. 0 normal Not Available [facility] [address] [place] [address], [address], 02/17/2022 12:59:23 02/18/20 22 02/17/2022 COMPL ETE BLOOD COUNT nucleated red cells 0.0 % 0.0-0. 9 normal Not Available [facility] [address] [place], [address], 02/17/2022 12:59:23 02/18/20 22 02/17/2022 COMPL ETE BLOOD COUNT nucleated RBCs, absolute 0.00 K/uL not estab. normal Not Available [facility] [address] [place], [address], 02/17/2022 12:59:23 05/26/19 23 05/26/2022 URIC ACID uric acid 8.9 mg/dL 2.4-5. 7 high Refer ence range s are based on [facility] norms and do not neces leesa slater [...] mstan my. Arthr itis Care and Resea [facility] Vol 64 No 10, 2011 Michelle puentes Colle ge of Rheum atolo gy ----- ----- ----- ----- ----- ----- ----- ----- ----- ----- ----- ---- Not Available [facility] [address] [place], [address], 05/26/2022 13:54:18 05/26/19 23 05/26/2022 COMP. METAB OLIC PANEL glucose 116 mg/dL 74-100 high Not Available [facility] [address] [place], [address], 05/26/2022 13:54:16 05/26/19 23 05/26/2022 COMP. METAB OLIC PANEL blood urea nitrogen 22 mg/dL 6-20 high Not Available [facility] [address] [place] [address], [address], 05/26/2022 13:54:16 05/26/19 23 05/26/2022 COMP. METAB OLIC PANEL creatinine 1.15 mg/dL 0.50-0 .95 high Not Available [facility] [address] [place] [address], [address], 05/26/2022 13:54:16 05/26/19 23 05/26/2022 COMP. METAB OLIC PANEL BUN/creatini ne ratio 19 (calc ) 10-20 normal Not Available [facility] [address] [place] [address], [id number], 05/26/2022 13:54:16 05/26/19 23 05/26/2022 COMP. METAB OLIC PANEL sodium 140 mmol/ L 136-14 5 normal Not Available [facility] [address] [place] [address], [id number], 05/26/2022 13:54:16 05/26/19 23 05/26/2022 COMP. METAB OLIC PANEL potassium 4.4 mmol/ L 3.4-5. 0 normal Not Available [facility] [address] [place] [address], [address], 05/26/2022 13:54:16 05/26/19 23 05/26/2022 COMP. METAB OLIC PANEL chloride 104 mmol/ L 98-107 normal Not Available [facility] [address] [place] [address], [address], 05/26/2022 13:54:16 05/26/19 23 05/26/2022 COMP. METAB OLIC PANEL carbon dioxide 25 mmol/ L 22-31 normal Not Available [facility] [address] [place] [address], [address], 05/26/2022 13:54:16 05/26/19 23 05/26/2022 COMP. METAB OLIC PANEL anion gap 11 (calc ) 7-25 normal Not Available [facility] [address] [place] [address], [address], 05/26/2022 13:54:16 05/26/19 23 05/26/2022 COMP. METAB OLIC PANEL calcium 9.5 mg/dL 8.6-10 .2 normal Not Available [facility] [address] [place] [address], [address], 05/26/2022 13:54:16 05/26/19 23 05/26/2022 COMP. METAB OLIC PANEL total protein 7.0 g/dL 6.4-8. 3 normal Not Available [facility] [address] [place] [address], [address], 05/26/2022 13:54:16 05/26/19 23 05/26/2022 COMP. METAB OLIC PANEL albumin 4.3 g/dL 3.5-5. 2 normal Not Available [facility] [address] [place] [address], [address], 05/26/2022 13:54:16 05/26/19 23 05/26/2022 COMP. METAB OLIC PANEL globulin 2.7 g/dL_ (calc ) 1.5-4. 5 normal Not Available [facility] [address] [place] [address], [address], 05/26/2022 13:54:16 05/26/19 23 05/26/2022 COMP. METAB OLIC PANEL albumin/glob ulin ratio 1.6 (calc ) 1.1-2. 5 normal Not Available [facility] [address] [place] [address], [address], 05/26/2022 13:54:16 05/26/19 23 05/26/2022 COMP. METAB OLIC PANEL bilirubin, total 0.4 mg/dL 0.1-1. 2 normal Not Available [facility] [address] [place] [address], [address], 05/26/2022 13:54:16 05/26/19 23 05/26/2022 COMP. METAB OLIC PANEL alkaline phosphatase 71 U/L 30-121 normal Not Available [facility] [address] [place] [address], [address], 05/26/2022 13:54:16 05/26/19 23 05/26/2022 COMP. METAB OLIC PANEL AST 18 U/L 0-32 normal Not Available [facility] [address] [place] [address], [address], 05/26/2022 13:54:16 05/26/19 23 05/26/2022 COMP. METAB OLIC PANEL ALT 15 U/L 0-33 normal Not Available [facility] [address] [place] [address], [address], 05/26/2022 13:54:16 05/26/19 23 05/26/2022 COMP. METAB OLIC PANEL GFR 49 >= 60 abnormal NOT E New calcu latio n for GFR (CKD- EPI 2020) is formu lated witho ut race adjus tment facto rs at the recom menda tion of the Lina galindo and Michelle puentes [facility] . This calcu latio n has not been valid ated in pregn ant women . For pedia tric patie nts refer to https ://[email or web address] rg/deep adorno s/KDO QI/gf r_cal culat orPed Not Available [facility] [address] [place], [address], 05/26/2022 13:54:16 05/26/19 23 05/26/2022 LDH LDH 155 U/L 135-23 3 normal Not Available [facility] [address] [place] [address], [phone], 05/26/2022 13:51:16 05/26/19 23 05/26/2022 COMPL ETE BLOOD COUNT white blood cells 5.6 K/uL 3.8-10 .8 normal Not Available [facility] [address] [place] [address], [address], 05/26/2022 13:25:38 05/26/19 23 05/26/2022 COMPL ETE BLOOD COUNT red blood cells 4.06 M/uL 3.80-5 .20 normal Not Available [facility] [address] [place] [address], [address], 05/26/2022 13:25:38 05/26/19 23 05/26/2022 COMPL ETE BLOOD COUNT hemoglobin 12.0 g/dL 12.0-1 6.0 normal Not Available [facility] [address] [place] [address], [address], 05/26/2022 13:25:38 05/26/19 23 05/26/2022 COMPL ETE BLOOD COUNT hematocrit 36.0 % 35.0-4 7.0 normal Not Available [facility] [address] [place] [address], [address], 05/26/2022 13:25:38 05/26/19 23 05/26/2022 COMPL ETE BLOOD COUNT MCV 89 fL 80-100 normal Not Available [facility] [address] [place] [address], [address], 05/26/2022 13:25:38 05/26/19 23 05/26/2022 COMPL ETE BLOOD COUNT MCH 30 pg 26-35 normal Not Available [facility] [address] [place] [address], [address], 05/26/2022 13:25:38 05/26/1905/26/2022 COMPL ETE BLOOD COUNT MCHC 33 g/dL 32-36 normal Not Available [facility] [address] [place] [address], [address], 05/26/2022 13:25:38 05/26/19 23 05/26/2022 COMPL ETE BLOOD COUNT RDW 15.9 % 11.0-1 5.0 high Not Available [facility] [address] [place] [address], [address], 05/26/2022 13:25:38 05/26/19 23 05/26/2022 COMPL ETE BLOOD COUNT MPV 7.5 fL 6.2-10 .5 normal Not Available [facility] [address] [place] [address], [address], 05/26/2022 13:25:38 05/26/19 23 05/26/2022 COMPL ETE BLOOD COUNT platelet count 176 K/uL 130-40 0 normal Not Available [facility] [address] [place] [address], [address], 05/26/2022 13:25:38 05/26/19 23 05/26/2022 COMPL ETE BLOOD COUNT neutrophil,a bsolute 3.3 K/uL 1.6-8. 4 normal Not Available [facility] [address] [place] [address], [address], 05/26/2022 13:25:38 05/26/19 23 05/26/2022 COMPL ETE BLOOD COUNT lymphocyte,a bsolute 1.7 K/uL 0.4-5. 1 normal Not Available [facility] [address] [place] [address], [address], 05/26/2022 13:25:38 05/26/19 23 05/26/2022 COMPL ETE BLOOD COUNT monocyte,abs olute 0.5 K/uL 0.0-1. 2 normal Not Available [facility] [address] [place] [address], [address], 05/26/2022 13:25:38 05/26/19 23 05/26/2022 COMPL ETE BLOOD COUNT eosinophil,a bsolute 0.1 K/uL 0.0-0. 8 normal Not Available [facility] [address] [place] [address], [address], 05/26/2022 13:25:38 05/26/19 23 05/26/2022 COMPL ETE BLOOD COUNT basophil,abs olute 0.0 K/uL 0.0-0. 3 normal Not Available [facility] [address] [place] [address], [address], 05/26/2022 13:25:38 05/26/19 23 05/26/2022 COMPL ETE BLOOD COUNT % neutrophils 59.0 % 42.0-7 8.0 normal Not Available [facility] [address] [place] [address], [address], 05/26/2022 13:25:38 05/26/19 23 05/26/2022 COMPL ETE BLOOD COUNT % lymphocytes 30.6 % 11.0-4 7.0 normal Not Available [facility] [address] [place] [address], [address], 05/26/2022 13:25:38 05/26/19 23 05/26/2022 COMPL ETE BLOOD COUNT % monocytes 8.1 % 0.0-11 .0 normal Not Available [facility] [address] [place] [address], [address], 05/26/2022 13:25:38 05/26/19 23 05/26/2022 COMPL ETE BLOOD COUNT % eosinophils 1.7 % 0.0-7. 0 normal Not Available [facility] [address] [place] [address], [address], 05/26/2022 13:25:38 05/26/19 23 05/26/2022 COMPL ETE BLOOD COUNT % basophils 0.6 % 0.0-3. 0 normal Not Available [facility] [address] [place] [address], [address], 05/26/2022 13:25:38 05/26/19 23 05/26/2022 COMPL ETE BLOOD COUNT nucleated red cells 0.0 % 0.0-0. 9 normal Not Available [facility] [address] [place], [address], 05/26/2022 13:25:38 05/26/19 23 05/26/2022 COMPL ETE BLOOD COUNT nucleated RBCs, absolute 0.00 K/uL not estab. normal Not Available [facility] [address] [place], [address], 05/26/2022 13:25:38 09/02/19 23 09/01/2022 LDH LDH 172 U/L 135-23 3 normal Not Available [facility] [address] [place], [address], 09/01/2022 13:20:15 09/02/19 23 09/01/2022 URIC ACID uric acid 8.4 mg/dL 2.4-5. 7 high Refer ence range s are based on [facility] norms and do not neces leesa slater [...] mstan my. Arthr itis Care and Resea [facility] Vol 64 No 10, 2011 Michelle puentes [facility] Rheum atolo gy ----- ----- ----- ----- ----- ----- ----- ----- ----- ----- ----- ---- Not Available [facility] [address] [place], [address], 09/01/2022 13:03:19 09/02/19 23 09/01/2022 COMP. METAB OLIC PANEL glucose 121 mg/dL 74-100 high Not Available [facility] [address] [place], [address], 09/01/2022 13:03:18 09/02/19 23 09/01/2022 COMP. METAB OLIC PANEL blood urea nitrogen 18 mg/dL 6-20 normal Not Available [facility] [address] [place] [address], [address], 09/01/2022 13:03:18 09/02/19 23 09/01/2022 COMP. METAB OLIC PANEL creatinine 1.32 mg/dL 0.50-0 .95 high Not Available [facility] [address] [place] [address], [address], 09/01/2022 13:03:18 09/02/19 23 09/01/2022 COMP. METAB OLIC PANEL BUN/creatini ne ratio 14 (calc ) 10-20 normal Not Available [facility] [address] [place] [address], [address], 09/01/2022 13:03:18 09/02/19 23 09/01/2022 COMP. METAB OLIC PANEL sodium 137 mmol/ L 136-14 5 normal Not Available [facility] [address] [place] [address], [address], 09/01/2022 13:03:18 09/02/19 23 09/01/2022 COMP. METAB OLIC PANEL potassium 4.1 mmol/ L 3.4-5. 0 normal Not Available [facility] [address] [place] [address], [address], 09/01/2022 13:03:18 09/02/19 23 09/01/2022 COMP. METAB OLIC PANEL chloride 99 mmol/ L 98-107 normal Not Available [facility] [address] [place] [address], [address], 09/01/2022 13:03:18 09/02/19 23 09/01/2022 COMP. METAB OLIC PANEL carbon dioxide 25 mmol/ L 22-31 normal Not Available [facility] [address] [place] [address], [address], 09/01/2022 13:03:18 09/02/19 23 09/01/2022 COMP. METAB OLIC PANEL anion gap 13 (calc ) 7-25 normal Not Available [facility] [address] [place] [address], [address], 09/01/2022 13:03:18 09/02/19 23 09/01/2022 COMP. METAB OLIC PANEL calcium 9.5 mg/dL 8.6-10 .2 normal Not Available [facility] [address] [place] [address], [address], 09/01/2022 13:03:18 09/02/19 23 09/01/2022 COMP. METAB OLIC PANEL total protein 7.3 g/dL 6.4-8. 3 normal Not Available [facility] [address] [place] [address], [address], 09/01/2022 13:03:18 09/02/19 23 09/01/2022 COMP. METAB OLIC PANEL albumin 4.3 g/dL 3.5-5. 2 normal Not Available [facility] [address] [place] [address], [address], 09/01/2022 13:03:18 09/02/19 23 09/01/2022 COMP. METAB OLIC PANEL globulin 3.0 1.5-4. 5 normal Not Available [facility] [address] [place] [address], [address], 09/01/2022 13:03:18 09/02/19 23 09/01/2022 COMP. METAB OLIC PANEL albumin/glob ulin ratio 1.4 (calc ) 1.1-2. 5 normal Not Available [facility] [address] [place] [address], [address], 09/01/2022 13:03:18 09/02/19 23 09/01/2022 COMP. METAB OLIC PANEL bilirubin, total 0.8 mg/dL 0.1-1. 2 normal Not Available [facility] [address] [place], [address], 09/01/2022 13:03:18 09/02/19 23 09/01/2022 COMP. METAB OLIC PANEL alkaline phosphatase 67 U/L 30-121 normal Not Available [facility] [address] [place], [address], 09/01/2022 13:03:18 09/02/19 23 09/01/2022 COMP. METAB OLIC PANEL AST 15 U/L 0-32 normal Not Available [facility] [address] [place] [address], [address], 09/01/2022 13:03:18 09/02/19 23 09/01/2022 COMP. METAB OLIC PANEL ALT 8 U/L 0-33 normal Not Available [facility] [address] [place], [address], 09/01/2022 13:03:18 09/02/19 23 09/01/2022 COMP. METAB OLIC PANEL GFR 41 >= 60 abnormal NOT E New calcu latio n for GFR (CKD- EPI 2020) is formu lated witho ut race adjus tment facto rs at the recom menda tion of the [facility] . This calcu latio n has not been valid ated in pregn ant women . For pedia tric patie nts refer to https ://heike [email or web address] [email or web address].o rg/pr ofess ional s/KDO QI/gf r_cal culat orPed Not Available [facility] [address] [place], [address], 09/01/2022 13:03:18 09/02/19 23 09/01/2022 COMPL ETE BLOOD COUNT white blood cells 6.8 10*3/ uL 3.8-10 .8 normal Not Available [facility] [address] [place] [address], [address], 09/01/2022 12:52:25 09/02/19 23 09/01/2022 COMPL ETE BLOOD COUNT red blood cells 4.15 10*6/ uL 3.80-5 .20 normal Not Available [facility] [address] [place] [address], [address], 09/01/2022 12:52:25 09/02/19 23 09/01/2022 COMPL ETE BLOOD COUNT hemoglobin 12.5 g/dL 12.0-1 6.0 normal Not Available [facility] [address] [place] [address], [address], 09/01/2022 12:52:25 09/02/19 23 09/01/2022 COMPL ETE BLOOD COUNT hematocrit 37.0 % 35.0-4 7.0 normal Not Available [facility] [address] [place] [address], [address], 09/01/2022 12:52:25 09/02/19 23 09/01/2022 COMPL ETE BLOOD COUNT MCV 89 fL 80-100 normal Not Available [facility] [address] [place] [address], [address], 09/01/2022 12:52:25 09/02/19 23 09/01/2022 COMPL ETE BLOOD COUNT MCH 30 pg 26-35 normal Not Available [facility] [address] [place] [address], [address], 09/01/2022 12:52:25 09/02/19 23 09/01/2022 COMPL ETE BLOOD COUNT MCHC 34 g/dL 32-36 normal Not Available [facility] [address] [place] [address], [address], 09/01/2022 12:52:25 09/02/19 23 09/01/2022 COMPL ETE BLOOD COUNT RDW 14.1 % 11.0-1 5.0 normal Not Available [facility] [address] [place] [address], [address], 09/01/2022 12:52:25 09/02/19 23 09/01/2022 COMPL ETE BLOOD COUNT MPV 7.5 fL 6.2-10 .5 normal Not Available [facility] [address] [place] [address], [address], 09/01/2022 12:52:25 09/02/19 23 09/01/2022 COMPL ETE BLOOD COUNT platelet count 194 10*3/ uL 130-40 0 normal Not Available [facility] [address] [place] [address], [address], 09/01/2022 12:52:25 09/02/19 23 09/01/2022 COMPL ETE BLOOD COUNT neutrophil,a bsolute 4.0 10*3/ uL 1.6-8. 4 normal Not Available [facility] [address] [place] [address], [address], 09/01/2022 12:52:25 09/02/19 23 09/01/2022 COMPL ETE BLOOD COUNT lymphocyte,a bsolute 2.0 10*3/ uL 0.4-5. 1 normal Not Available [facility] [address] [place] [address], [address], 09/01/2022 12:52:25 09/02/19 23 09/01/2022 COMPL ETE BLOOD COUNT monocyte,abs olute 0.5 10*3/ uL 0.0-1. 2 normal Not Available [facility] [address] [place] [address], [address], 09/01/2022 12:52:25 09/02/1909/01/2022 COMPL ETE BLOOD COUNT eosinophil,a bsolute 0.2 10*3/ uL 0.0-0. 8 normal Not Available [facility] [address] [place] [address], [address], 09/01/2022 12:52:25 09/02/19 23 09/01/2022 COMPL ETE BLOOD COUNT basophil,abs olute 0.1 10*3/ uL 0.0-0. 3 normal Not Available [facility] [address] [place] [address], [address], 09/01/2022 12:52:25 09/02/19 23 09/01/2022 COMPL ETE BLOOD COUNT % neutrophils 59.2 % 42.0-7 8.0 normal Not Available [facility] [address] [place] [address], [address], 09/01/2022 12:52:25 09/02/19 23 09/01/2022 COMPL ETE BLOOD COUNT % lymphocytes 29.7 % 11.0-4 7.0 normal Not Available [facility] [address] [place] [address], [address], 09/01/2022 12:52:25 09/02/19 23 09/01/2022 COMPL ETE BLOOD COUNT % monocytes 7.7 % 0.0-11 .0 normal Not Available [facility] [address] [place] [address], [address], 09/01/2022 12:52:25 09/02/19 23 09/01/2022 COMPL ETE BLOOD COUNT % eosinophils 2.6 % 0.0-7. 0 normal Not Available [facility] [address] [place] [address], [address], 09/01/2022 12:52:25 09/02/19 23 09/01/2022 COMPL ETE BLOOD COUNT % basophils 0.8 % 0.0-3. 0 normal Not Available [facility] [address] [place] [address], [address], 09/01/2022 12:52:25 09/02/19 23 09/01/2022 COMPL ETE BLOOD COUNT nucleated red cells 0.0 % 0.0-0. 9 normal Not Available [facility] [address] [place] [address], [address], 09/01/2022 12:52:25 09/02/19 23 09/01/2022 COMPL ETE BLOOD COUNT nucleated RBCs, absolute 0.00 10*3/ uL not estab. normal Not Available [facility] [address] [place] [address], [address], 09/01/2022 12:52:25 01/13/20 23 01/12/2023 MANUA L DIFFE RENTI AL % band neutrophils 0.0 % 0.0-7. 0 normal Not Available [facility] [address] [place] [address], [address], 01/12/2023 15:09:33 01/13/20 23 01/12/2023 MANUA L DIFFE RENTI AL % atypical lymphocytes 0 % 0-1 normal Not Available [facility] [address] [place] [address], [address], 01/12/2023 15:09:33 01/13/20 23 01/12/2023 MANUA L DIFFE RENTI AL % metamyelocyt es 0 % 0-1 normal Not Available [facility] [address] [place] [address], [address], 01/12/2023 15:09:33 01/13/20 23 01/12/2023 MANUA L DIFFE RENTI AL % myelocytes 0 % 0-1 normal Not Available [facility] [address] [place] [address], [address], 01/12/2023 15:09:33 01/13/20 23 01/12/2023 MANUA L DIFFE RENTI AL % promyelocyte s 0 % 0 normal Not Available [facility] [address] [place] [address], [address], 01/12/2023 15:09:33 01/13/20 23 01/12/2023 MANUA L DIFFE RENTI AL % blast 0 % 0 normal Not Available [facility] [address] [place] [address], [address], 01/12/2023 15:09:33 01/13/20 23 01/12/2023 MANUA L DIFFE RENTI AL nucleated red cells 0 /100{ WBC} 0-1 normal Not Available [facility] [address] [place] [address], [address], 01/12/2023 15:09:33 01/13/20 23 01/12/2023 MANUA L DIFFE RENTI AL smudge cells 0 /100{ WBC} 0 normal Not Available [facility] [address] [place] [address], [address], 01/12/2023 15:09:33 01/13/20 23 01/12/2023 MANUA L DIFFE RENTI AL platelet morphology NORMAL normal Not Available [facility] [address] [place] [address], [address], 01/12/2023 15:09:33 01/13/20 23 01/12/2023 MANUA L DIFFE RENTI AL hypochromasi a SLIGHT abnormal Not Available [facility] [address] [place] [address], [address], 01/12/2023 15:09:33 01/13/20 23 01/12/2023 MANUA L DIFFE RENTI AL ovalocytes SLIGHT abnormal Not Available [facility] [address] [place] [address], [address], 01/12/2023 15:09:33 01/13/20 23 01/12/2023 COMPL ETE BLOOD COUNT white blood cells 7.6 10*3/ uL 3.8-10 .8 normal RESUL TS RECHE CKED Not Available [facility] [address] [place] [address], [address], 01/12/2023 15:09:31 01/13/20 23 01/12/2023 COMPL ETE BLOOD COUNT red blood cells 4.03 10*6/ uL 3.80-5 .20 normal Not Available [facility] [address] [place] [address], [address], 01/12/2023 15:09:31 01/13/20 23 01/12/2023 COMPL ETE BLOOD COUNT hemoglobin 12.0 g/dL 12.0-1 6.0 normal Not Available [facility] [address] [place] [address], [address], 01/12/2023 15:09:31 01/13/20 23 01/12/2023 COMPL ETE BLOOD COUNT hematocrit 36.2 % 35.0-4 7.0 normal Not Available [facility] [address] [place] [address], [address], 01/12/2023 15:09:31 01/13/20 23 01/12/2023 COMPL ETE BLOOD COUNT MCV 90 fL 80-100 normal Not Available [facility] [address] [place] [address], [address], 01/12/2023 15:09:31 01/13/20 23 01/12/2023 COMPL ETE BLOOD COUNT MCH 30 pg 26-35 normal Not Available [facility] [address] [place] [address], [address], 01/12/2023 15:09:31 01/13/20 23 01/12/2023 COMPL ETE BLOOD COUNT MCHC 33 g/dL 32-36 normal Not Available [facility] [address] [place] [address], [address], 01/12/2023 15:09:31 01/13/20 23 01/12/2023 COMPL ETE BLOOD COUNT RDW 14.8 % 11.0-1 5.0 normal Not Available [facility] [address] [place] [address], [address], 01/12/2023 15:09:31 01/13/20 23 01/12/2023 COMPL ETE BLOOD COUNT MPV 7.7 fL 6.2-10 .5 normal Not Available [facility] [address] [place] [address], [address], 01/12/2023 15:09:31 01/13/20 23 01/12/2023 COMPL ETE BLOOD COUNT platelet count 151 10*3/ uL 130-40 0 normal Not Available [facility] [address] [place] [address], [address], 01/12/2023 15:09:31 01/13/20 23 01/12/2023 COMPL ETE BLOOD COUNT neutrophil,a bsolute 4.0 10*3/ uL 1.6-8. 4 normal Not Available [facility] [address] [place] [address], [address], 01/12/2023 15:09:31 01/13/20 23 01/12/2023 COMPL ETE BLOOD COUNT lymphocyte,a bsolute 3.3 10*3/ uL 0.4-5. 1 normal Not Available [facility] [address] [place] [address], [address], 01/12/2023 15:09:31 01/13/20 23 01/12/2023 COMPL ETE BLOOD COUNT monocyte,abs olute 0.2 10*3/ uL 0.0-1. 2 normal Not Available [facility] [address] [place] [address], [address], 01/12/2023 15:09:31 01/13/20 23 01/12/2023 COMPL ETE BLOOD COUNT eosinophil,a bsolute 0.1 10*3/ uL 0.0-0. 8 normal Not Available [facility] [address] [place] [address], [address], 01/12/2023 15:09:31 01/13/20 23 01/12/2023 COMPL ETE BLOOD COUNT basophil,abs olute 0.0 10*3/ uL 0.0-0. 3 normal Not Available [facility] [address] [place] [address], [address], 01/12/2023 15:09:31 01/13/20 23 01/12/2023 COMPL ETE BLOOD COUNT % neutrophils 52.0 % 42.0-7 8.0 normal Not Available [facility] [address] [place] [address], [address], 01/12/2023 15:09:31 01/13/20 23 01/12/2023 COMPL ETE BLOOD COUNT % lymphocytes 44.0 % 11.0-4 7.0 normal Not Available [facility] [address] [place] [address], [address], 01/12/2023 15:09:31 01/13/20 23 01/12/2023 COMPL ETE BLOOD COUNT % monocytes 3.0 % 0.0-11 .0 normal Not Available [facility] [address] [place] [address], [address], 01/12/2023 15:09:31 01/13/20 23 01/12/2023 COMPL ETE BLOOD COUNT % eosinophils 1.0 % 0.0-7. 0 normal Not Available [facility] [address] [place] [address], [address], 01/12/2023 15:09:31 01/13/20 23 01/12/2023 COMPL ETE BLOOD COUNT % basophils 0.0 % 0.0-3. 0 normal Not Available [facility] [address] [place] [address], [address], 01/12/2023 15:09:31 01/13/20 23 01/12/2023 COMPL ETE BLOOD COUNT nucleated red cells 0.0 % 0.0-0. 9 normal Not Available [facility] [address] [place] [address], [id number], 01/12/2023 15:09:31 01/13/20 23 01/12/2023 COMPL ETE BLOOD COUNT nucleated RBCs, absolute 0.00 10*3/ uL not estab. normal Not Available [facility] [address] [place], [phone], 01/12/2023 15:09:31 01/13/20 23 01/12/2023 LDH LDH 167 U/L 135-23 3 normal Not Available [facility] [address] [place] [address], [address], 01/12/2023 15:02:55 01/13/20 23 01/12/2023 URIC ACID uric acid 7.5 mg/dL 2.4-5. 7 high Refer ence range s are based on [facility] norms and do not neces leesa slater [...] mstan my. Arthr itis Care and Resea [facility] Vol 64 No 10, 2011 Michelle can Colle ge of Rheum atolo gy ----- ----- ----- ----- ----- ----- ----- ----- ----- ----- ----- ---- Not Available [facility] [address] [place] [address], [address], 01/12/2023 15:02:09 01/13/20 23 01/12/2023 COMP. METAB OLIC PANEL glucose 109 mg/dL 74-100 high Not Available [facility] [address] [place] [address], [address], 01/12/2023 15:02:07 01/13/20 23 01/12/2023 COMP. METAB OLIC PANEL blood urea nitrogen 19 mg/dL 6-20 normal Not Available [facility] [address] [place] [address], [address], 01/12/2023 15:02:07 01/13/20 23 01/12/2023 COMP. METAB OLIC PANEL creatinine 1.35 mg/dL 0.50-0 .95 high Not Available [facility] [address] [place] [address], [address], 01/12/2023 15:02:07 01/13/20 23 01/12/2023 COMP. METAB OLIC PANEL BUN/creatini ne ratio 14 (calc ) 10-20 normal Not Available [facility] [address] [place] [address], [address], 01/12/2023 15:02:07 01/13/20 23 01/12/2023 COMP. METAB OLIC PANEL sodium 139 mmol/ L 136-14 5 normal Not Available [facility] [address] [place] [address], [address], 01/12/2023 15:02:07 01/13/20 23 01/12/2023 COMP. METAB OLIC PANEL potassium 4.5 mmol/ L 3.4-5. 0 normal Not Available [facility] [address] [place] [address], [address], 01/12/2023 15:02:07 01/13/20 23 01/12/2023 COMP. METAB OLIC PANEL chloride 104 mmol/ L 98-107 normal Not Available [facility] [address] [place] [address], [address], 01/12/2023 15:02:07 01/13/20 23 01/12/2023 COMP. METAB OLIC PANEL carbon dioxide 24 mmol/ L 22-31 normal Not Available [facility] [address] [place] [address], [address], 01/12/2023 15:02:07 01/13/20 23 01/12/2023 COMP. METAB OLIC PANEL anion gap 11 (calc ) 7-25 normal Not Available [facility] [address] [place] [address], [address], 01/12/2023 15:02:07 01/13/20 23 01/12/2023 COMP. METAB OLIC PANEL calcium 9.1 mg/dL 8.6-10 .2 normal Not Available [address], [address], 01/12/2023 15:02:07 01/13/20 23 01/12/2023 COMP. METAB OLIC PANEL total protein 6.8 g/dL 6.4-8. 3 normal Not Available [address], [address], 01/12/2023 15:02:07 01/13/20 23 01/12/2023 COMP. METAB OLIC PANEL albumin 4.2 g/dL 3.5-5. 2 normal Not Available [address], [address], 01/12/2023 15:02:07 01/13/20 23 01/12/2023 COMP. METAB OLIC PANEL globulin 2.6 1.5-4. 5 normal Not Available [address], [address], 01/12/2023 15:02:07 01/13/20 23 01/12/2023 COMP. METAB OLIC PANEL albumin/glob ulin ratio 1.6 (calc ) 1.1-2. 5 normal Not Available [address], [address], 01/12/2023 15:02:07 01/13/20 23 01/12/2023 COMP. METAB OLIC PANEL bilirubin, total 0.6 mg/dL 0.1-1. 2 normal Not Available [address], [address], 01/12/2023 15:02:07 01/13/20 23 01/12/2023 COMP. METAB OLIC PANEL alkaline phosphatase 63 U/L 30-121 normal Not Available [facility] [address] [place], [address], 01/12/2023 15:02:07 01/13/20 23 01/12/2023 COMP. METAB OLIC PANEL AST 13 U/L 0-32 normal Not Available [facility] [address] [place], [address], 01/12/2023 15:02:07 01/13/20 23 01/12/2023 COMP. METAB OLIC PANEL ALT 10 U/L 0-33 normal Not Available [facility] [address] [place], [address], 01/12/2023 15:02:07 01/13/20 23 01/12/2023 COMP. METAB [...] s/YARIO QI/gf r_cal culat orPed Not Available [facility] [address] [place], [address], 01/12/2023 15:02:07 02/10/20 23 02/09/2023 MANUA L DIFFE RENTI AL % band neutrophils 0.0 % 0.0-7. 0 normal Not Available [facility] [address] [place], [address], 02/09/2023 14:51:28 02/10/20 23 02/09/2023 MANUA L DIFFE RENTI AL % atypical lymphocytes 4 % 0-1 high Not Available [facility] [address] [place], [address], 02/09/2023 14:51:28 02/10/20 23 02/09/2023 MANUA L DIFFE RENTI AL % metamyelocyt es 0 % 0-1 normal Not Available [facility] [address] [place], [address], 02/09/2023 14:51:28 02/10/20 23 02/09/2023 MANUA L DIFFE RENTI AL % myelocytes 0 % 0-1 normal Not Available [facility] [address] [place] [address], [address], 02/09/2023 14:51:28 02/10/20 23 02/09/2023 MANUA L DIFFE RENTI AL % promyelocyte s 0 % 0 normal Not Available [facility] [address] [place] [address], [address], 02/09/2023 14:51:28 02/10/20 23 02/09/2023 MANUA L DIFFE RENTI AL % blast 0 % 0 normal Not Available [facility] [address] [place] [address], [address], 02/09/2023 14:51:28 02/10/20 23 02/09/2023 MANUA L DIFFE RENTI AL nucleated red cells 0 /100{ WBC} 0-1 normal Not Available [facility] [address] [place] [address], [address], 02/09/2023 14:51:28 02/10/20 23 02/09/2023 MANUA L DIFFE RENTI AL smudge cells 0 /100{ WBC} 0 normal Not Available [facility] [address] [place] [address], [address], 02/09/2023 14:51:28 02/10/20 23 02/09/2023 MANUA L DIFFE RENTI AL platelet morphology NORMAL normal Not Available [facility] [address] [place], [address], 02/09/2023 14:51:28 02/10/20 23 02/09/2023 MAXX SALAZAR AL stomatocytes SLIGHT abnormal Not Available [facility] [address] [place] [address], [address], 02/09/2023 14:51:28 02/10/20 23 02/09/2023 COMPL ETE BLOOD COUNT white blood cells 8.3 10*3/ uL 3.8-10 .8 normal Not Available [facility] [address] [place] [address], [address], 02/09/2023 14:51:26 02/10/2002/09/2023 COMPL ETE BLOOD COUNT red blood cells 4.15 10*6/ uL 3.80-5 .20 normal Not Available [facility] [address] [place] [address], [address], 02/09/2023 14:51:26 02/10/20 23 02/09/2023 COMPL ETE BLOOD COUNT hemoglobin 12.3 g/dL 12.0-1 6.0 normal Not Available [facility] [address] [place] [address], [address], 02/09/2023 14:51:26 02/10/20 23 02/09/2023 COMPL ETE BLOOD COUNT hematocrit 36.5 % 35.0-4 7.0 normal Not Available [facility] [address] [place] [address], [address], 02/09/2023 14:51:26 02/10/20 23 02/09/2023 COMPL ETE BLOOD COUNT MCV 88 fL 80-100 normal Not Available [facility] [address] [place] [address], [address], 02/09/2023 14:51:26 02/10/20 23 02/09/2023 COMPL ETE BLOOD COUNT MCH 30 pg 26-35 normal Not Available [facility] [address] [place] [address], [address], 02/09/2023 14:51:26 02/10/20 23 02/09/2023 COMPL ETE BLOOD COUNT MCHC 34 g/dL 32-36 normal Not Available [facility] [address] [place] [address], [address], 02/09/2023 14:51:26 02/10/2002/09/2023 COMPL ETE BLOOD COUNT RDW 14.5 % 11.0-1 5.0 normal Not Available [facility] [address] [place] [address], [address], 02/09/2023 14:51:26 02/10/2002/09/2023 COMPL ETE BLOOD COUNT MPV 7.6 fL 6.2-10 .5 normal Not Available [facility] [address] [place] [address], [address], 02/09/2023 14:51:26 02/10/2002/09/2023 COMPL ETE BLOOD COUNT platelet count 184 10*3/ uL 150-40 0 normal Not Available [facility] [address] [place] [address], [address], 02/09/2023 14:51:26 02/10/20 23 02/09/2023 COMPL ETE BLOOD COUNT neutrophil,a bsolute 4.2 10*3/ uL 1.6-8. 4 normal Not Available [facility] [address] [place] [address], [address], 02/09/2023 14:51:26 02/10/2002/09/2023 COMPL ETE BLOOD COUNT lymphocyte,a bsolute 2.9 10*3/ uL 0.4-5. 1 normal Not Available [facility] [address] [place] [address], [address], 02/09/2023 14:51:26 02/10/20 23 02/09/2023 COMPL ETE BLOOD COUNT monocyte,abs olute 0.7 10*3/ uL 0.0-1. 2 normal Not Available [facility] [address] [place] [address], [address], 02/09/2023 14:51:26 02/10/20 23 02/09/2023 COMPL ETE BLOOD COUNT eosinophil,a bsolute 0.2 10*3/ uL 0.0-0. 8 normal Not Available [facility] [address] [place] [address], [address], 02/09/2023 14:51:26 02/10/20 23 02/09/2023 COMPL ETE BLOOD COUNT basophil,abs olute 0.0 10*3/ uL 0.0-0. 3 normal Smear revie wed to confi rm cell morph ology . Not Available [facility] [address] [place] [address], [address], 02/09/2023 14:51:26 02/10/20 23 02/09/2023 COMPL ETE BLOOD COUNT % neutrophils 50.0 % 42.0-7 8.0 normal Not Available [facility] [address] [place] [address], [address], 02/09/2023 14:51:26 02/10/20 23 02/09/2023 COMPL ETE BLOOD COUNT % lymphocytes 35.0 % 11.0-4 7.0 normal Not Available [facility] [address] [place] [address], [address], 02/09/2023 14:51:26 02/10/20 23 02/09/2023 COMPL ETE BLOOD COUNT % monocytes 9.0 % 0.0-11 .0 normal Not Available [facility] [address] [place] [address], [address], 02/09/2023 14:51:26 02/10/20 23 02/09/2023 COMPL ETE BLOOD COUNT % eosinophils 2.0 % 0.0-7. 0 normal Not Available [facility] [address] [place] [address], [address], 02/09/2023 14:51:26 02/10/20 23 02/09/2023 COMPL ETE BLOOD COUNT % basophils 0.0 % 0.0-3. 0 normal Not Available [facility] [address] [place] [address], [address], 02/09/2023 14:51:26 02/10/20 23 02/09/2023 COMPL ETE BLOOD COUNT nucleated red cells 0.2 % 0.0-0. 9 normal Not Available [facility] [address] [place] [address], [address], 02/09/2023 14:51:26 02/10/20 23 02/09/2023 COMPL ETE BLOOD COUNT nucleated RBCs, absolute 0.01 10*3/ uL not estab. normal Not Available [facility] [address] [place] [address], [address], 02/09/2023 14:51:26 02/10/20 23 02/09/2023 LDH LDH 165 U/L 135-23 3 normal Not Available [facility] [address] [place] [address], [address], 02/09/2023 14:47:40 02/10/20 23 02/09/2023 URIC ACID uric acid 7.9 mg/dL 2.4-5. 7 high Refer ence range s are based on [facility] norms and do not neces leesa slater [...] mstan my. Arthr itis Care and Resea [facility] Vol 64 No 10, 2011 Michelle puentes Colle ge of Rheum atolo gy ----- ----- ----- ----- ----- ----- ----- ----- ----- ----- ----- ---- Not Available [facility] [address] [place] [address], [address], 02/09/2023 14:33:26 02/10/20 23 02/09/2023 COMP. METAB OLIC PANEL glucose 108 mg/dL 74-100 high Not Available [facility] [address] [place] [address], [address], 02/09/2023 14:33:24 02/10/20 23 02/09/2023 COMP. METAB OLIC PANEL blood urea nitrogen 18 mg/dL 6-20 normal Not Available [facility] [address] [place] [address], [address], 02/09/2023 14:33:24 02/10/20 23 02/09/2023 COMP. METAB OLIC PANEL creatinine 1.31 mg/dL 0.50-0 .95 high Not Available [facility] [address] [place] [address], [address], 02/09/2023 14:33:24 02/10/20 23 02/09/2023 COMP. METAB OLIC PANEL BUN/creatini ne ratio 14 (calc ) 10-20 normal Not Available [facility] [address] [place] [address], [address], 02/09/2023 14:33:24 02/10/20 23 02/09/2023 COMP. METAB OLIC PANEL sodium 136 mmol/ L 136-14 5 normal Not Available [facility] [address] [place] [address], [address], 02/09/2023 14:33:24 02/10/20 23 02/09/2023 COMP. METAB OLIC PANEL potassium 4.1 mmol/ L 3.4-5. 0 normal Not Available [facility] [address] [place] [address], [address], 02/09/2023 14:33:24 02/10/20 23 02/09/2023 COMP. METAB OLIC PANEL chloride 101 mmol/ L 98-107 normal Not Available [facility] [address] [place] [address], [address], 02/09/2023 14:33:24 02/10/20 23 02/09/2023 COMP. METAB OLIC PANEL carbon dioxide 25 mmol/ L 22-31 normal Not Available [facility] [address] [place] [address], [address], 02/09/2023 14:33:24 02/10/20 23 02/09/2023 COMP. METAB OLIC PANEL anion gap 10 (calc ) 7-25 normal Not Available [facility] [address] [place] [address], [address], 02/09/2023 14:33:24 02/10/20 23 02/09/2023 COMP. METAB OLIC PANEL calcium 9.1 mg/dL 8.6-10 .2 normal Not Available [facility] [address] [place] [address], [address], 02/09/2023 14:33:24 02/10/20 23 02/09/2023 COMP. METAB OLIC PANEL total protein 6.8 g/dL 6.4-8. 3 normal Not Available [facility] [address] [place] [address], [address], 02/09/2023 14:33:24 02/10/20 23 02/09/2023 COMP. METAB OLIC PANEL albumin 4.2 g/dL 3.5-5. 2 normal Not Available [facility] [address] [place] [address], [address], 02/09/2023 14:33:24 02/10/20 23 02/09/2023 COMP. METAB OLIC PANEL globulin 2.6 1.5-4. 5 normal Not Available [facility] [address] [place] [address], [address], 02/09/2023 14:33:24 02/10/20 23 02/09/2023 COMP. METAB OLIC PANEL albumin/glob ulin ratio 1.6 (calc ) 1.1-2. 5 normal Not Available [facility] [address] [place] [address], [address], 02/09/2023 14:33:24 02/10/20 23 02/09/2023 COMP. METAB OLIC PANEL bilirubin, total 0.7 mg/dL 0.1-1. 2 normal Not Available [facility] [address] [place] [address], [address], 02/09/2023 14:33:24 02/10/20 23 02/09/2023 COMP. METAB OLIC PANEL alkaline phosphatase 63 U/L 30-121 normal Not Available [facility] [address] [place] [address], [address], 02/09/2023 14:33:24 02/10/20 23 02/09/2023 COMP. METAB OLIC PANEL AST 14 U/L 0-32 normal Not Available [facility] [address] [place] [address], [address], 02/09/2023 14:33:24 02/10/20 23 02/09/2023 COMP. METAB OLIC PANEL ALT 9 U/L 0-33 normal Not Available [facility] [address] [place] [address], [address], 02/09/2023 14:33:24 02/10/20 23 02/09/2023 COMP. METAB [...] nts refer to [email or web address] :[email or web address] s/KDO QI/gf r_cal culat orPed Not Available [facility] [address] [place], [address], 02/09/2023 14:33:24 02/16/20 23 02/15/2023 PROTH ROMBI N TIME prothrombin time 27.3 secon ds 9.4-11 .0 high Not Available [facility] [address] [place], [address], 02/15/2023 07:29:35 02/16/20 23 02/15/2023 PROTH ROMBI [...] NICAL PROST HETIC VALVE S Not Available [facility] [address] [place], [address], 02/15/2023 07:29:35 02/23/20 23 02/22/2023 PROTH ROMBI N TIME prothrombin time 14.2 secon ds 9.4-11 .0 high Not Available [facility] [address] [place], [address], 02/22/2023 11:10:46 02/23/20 23 02/22/2023 PROTH ROMBI [...] NICAL PROST HETIC VALVE S Not Available [facility] [address] [facility], [place], [address], 02/22/2023 11:10:46 02/23/20 23 02/22/2023 SURGI VINH [...] 16:45 Page 1 of 1 Not Available [facility] [address] [place] [address], [address], 02/23/2023 16:45:21 03/30/20 23 03/30/2023 COMP. METAB OLIC PANEL glucose 107 mg/dL 74-100 high Not Available [facility] [address] [place] [address], [address], 03/30/2023 10:45:23 03/30/20 23 03/30/2023 COMP. METAB OLIC PANEL blood urea nitrogen 18 mg/dL 6-20 normal Not Available [facility] [address] [place] [address], [address], 03/30/2023 10:45:23 03/30/20 23 03/30/2023 COMP. METAB OLIC PANEL creatinine 1.44 mg/dL 0.50-0 .95 high Not Available [facility] [address] [place] [address], [address], 03/30/2023 10:45:23 03/30/20 23 03/30/2023 COMP. METAB OLIC PANEL BUN/creatini ne ratio 13 (calc ) 10-20 normal Not Available [facility] [address] [place] [address], [address], 03/30/2023 10:45:23 03/30/20 23 03/30/2023 COMP. METAB OLIC PANEL sodium 139 mmol/ L 136-14 5 normal Not Available [facility] [address] [place] [address], [address], 03/30/2023 10:45:23 03/30/20 23 03/30/2023 COMP. METAB OLIC PANEL potassium 4.3 mmol/ L 3.4-5. 0 normal Not Available [facility] [address] [place] [address], [address], 03/30/2023 10:45:23 03/30/20 23 03/30/2023 COMP. METAB OLIC PANEL chloride 103 mmol/ L 98-107 normal Not Available [facility] [address] [place] [address], [address], 03/30/2023 10:45:23 03/30/20 23 03/30/2023 COMP. METAB OLIC PANEL carbon dioxide 26 mmol/ L 22-31 normal Not Available [facility] [address] [place] [address], [address], 03/30/2023 10:45:23 03/30/20 23 03/30/2023 COMP. METAB OLIC PANEL anion gap 10 (calc ) 7-25 normal Not Available [facility] [address] [place] [address], [address], 03/30/2023 10:45:23 03/30/20 23 03/30/2023 COMP. METAB OLIC PANEL calcium 9.2 mg/dL 8.6-10 .2 normal Not Available [facility] [address] [place] [address], [address], 03/30/2023 10:45:23 03/30/20 23 03/30/2023 COMP. METAB OLIC PANEL total protein 7.0 g/dL 6.4-8. 3 normal Not Available [facility] [address] [place] [address], [address], 03/30/2023 10:45:23 03/30/20 23 03/30/2023 COMP. METAB OLIC PANEL albumin 4.6 g/dL 3.5-5. 2 normal Not Available [facility] [address] [place] [address], [address], 03/30/2023 10:45:23 03/30/20 23 03/30/2023 COMP. METAB OLIC PANEL globulin 2.4 1.5-4. 5 normal Not Available [facility] [address] [place] [address], [address], 03/30/2023 10:45:23 03/30/20 23 03/30/2023 COMP. METAB OLIC PANEL albumin/glob ulin ratio 1.9 (calc ) 1.1-2. 5 normal Not Available [facility] [address] [place] [address], [address], 03/30/2023 10:45:23 03/30/20 23 03/30/2023 COMP. METAB OLIC PANEL bilirubin, total 0.7 mg/dL 0.1-1. 2 normal Not Available [facility] [address] [place] [address], [address], 03/30/2023 10:45:23 03/30/20 23 03/30/2023 COMP. METAB OLIC PANEL alkaline phosphatase 68 U/L 30-121 normal Not Available [facility] [address] [place] [address], [address], 03/30/2023 10:45:23 03/30/20 23 03/30/2023 COMP. METAB OLIC PANEL AST 17 U/L 0-32 normal Not Available [facility] [address] [place] [address], [address], 03/30/2023 10:45:23 03/30/20 23 03/30/2023 COMP. METAB OLIC PANEL ALT 12 U/L 0-33 normal Not Available [facility] [address] [place] [address], [address], 03/30/2023 10:45:23 03/30/20 23 03/30/2023 COMP. METAB [...] s/KDO QI/gf r_cal culat orPed Not Available [facility] [address] [place] [address], [address], 03/30/2023 10:45:23 03/30/20 23 03/30/2023 COMPL ETE BLOOD COUNT white blood cells 12.4 10*3/ uL 3.8-10 .8 high Not Available [facility] [address] [place] [address], [address], 03/30/2023 10:12:44 03/30/20 23 03/30/2023 COMPL ETE BLOOD COUNT red blood cells 4.37 10*6/ uL 3.80-5 .20 normal Not Available [facility] [address] [place] [address], [address], 03/30/2023 10:12:44 03/30/20 23 03/30/2023 COMPL ETE BLOOD COUNT hemoglobin 12.6 g/dL 12.0-1 6.0 normal Not Available [facility] [address] [place] [address], [address], 03/30/2023 10:12:44 03/30/20 23 03/30/2023 COMPL ETE BLOOD COUNT hematocrit 38.4 % 35.0-4 7.0 normal Not Available [facility] [address] [place] [address], [address], 03/30/2023 10:12:44 03/30/20 23 03/30/2023 COMPL ETE BLOOD COUNT MCV 88 fL 80-100 normal Not Available [facility] [address] [place] [address], [address], 03/30/2023 10:12:44 03/30/20 23 03/30/2023 COMPL ETE BLOOD COUNT MCH 29 pg 26-35 normal Not Available [facility] [address] [place] [address], [address], 03/30/2023 10:12:44 03/30/20 23 03/30/2023 COMPL ETE BLOOD COUNT MCHC 33 g/dL 32-36 normal Not Available [facility] [address] [place] [address], [address], 03/30/2023 10:12:44 03/30/20 23 03/30/2023 COMPL ETE BLOOD COUNT RDW 15.2 % 11.0-1 5.0 high Not Available [facility] [address] [place] [address], [address], 03/30/2023 10:12:44 03/30/20 23 03/30/2023 COMPL ETE BLOOD COUNT MPV 7.2 fL 6.2-10 .5 normal Not Available [facility] [address] [place] [address], [address], 03/30/2023 10:12:44 03/30/20 23 03/30/2023 COMPL ETE BLOOD COUNT platelet count 166 10*3/ uL 150-40 0 normal Not Available [facility] [address] [place] [address], [address], 03/30/2023 10:12:44 03/30/20 23 03/30/2023 COMPL ETE BLOOD COUNT neutrophil,a bsolute 5.8 10*3/ uL 1.6-8. 4 normal Not Available [facility] [address] [place] [address], [address], 03/30/2023 10:12:44 03/30/20 23 03/30/2023 COMPL ETE BLOOD COUNT lymphocyte,a bsolute 5.7 10*3/ uL 0.4-5. 1 high Not Available [facility] [address] [place] [address], [address], 03/30/2023 10:12:44 03/30/20 23 03/30/2023 COMPL ETE BLOOD COUNT monocyte,abs olute 0.7 10*3/ uL 0.0-1. 2 normal Not Available [facility] [address] [place] [address], [address], 03/30/2023 10:12:44 03/30/20 23 03/30/2023 COMPL ETE BLOOD COUNT eosinophil,a bsolute 0.1 10*3/ uL 0.0-0. 8 normal Not Available [facility] [address] [place] [address], [address], 03/30/2023 10:12:44 03/30/20 23 03/30/2023 COMPL ETE BLOOD COUNT basophil,abs olute 0.0 10*3/ uL 0.0-0. 3 normal Not Available [facility] [address] [place] [address], [address], 03/30/2023 10:12:44 03/30/20 23 03/30/2023 COMPL ETE BLOOD COUNT % neutrophils 46.9 % 42.0-7 8.0 normal Not Available [facility] [address] [place] [address], [address], 03/30/2023 10:12:44 03/30/20 23 03/30/2023 COMPL ETE BLOOD COUNT % lymphocytes 45.9 % 11.0-4 7.0 normal Not Available [facility] [address] [place] [address], [address], 03/30/2023 10:12:44 03/30/20 23 03/30/2023 COMPL ETE BLOOD COUNT % monocytes 5.8 % 0.0-11 .0 normal Not Available [facility] [address] [place] [address], [address], 03/30/2023 10:12:44 03/30/20 23 03/30/2023 COMPL ETE BLOOD COUNT % eosinophils 1.1 % 0.0-7. 0 normal Not Available [facility] [address] [place] [address], [address], 03/30/2023 10:12:44 03/30/20 23 03/30/2023 COMPL ETE BLOOD COUNT % basophils 0.3 % 0.0-3. 0 normal Not Available [facility] [address] [place] [address], [address], 03/30/2023 10:12:44 03/30/20 23 03/30/2023 COMPL ETE BLOOD COUNT nucleated red cells 0.1 % 0.0-0. 9 normal Not Available [facility] [address] [place] [address], [address], 03/30/2023 10:12:44 03/30/20 23 03/30/2023 COMPL ETE BLOOD COUNT nucleated RBCs, absolute 0.01 10*3/ uL not estab. normal Not Available [facility] [address] [place] [address], [address], 03/30/2023 10:12:44 08/09/19 24 08/09/2023 LDH LDH 175 U/L 135-23 3 normal Not Available [facility] [address] [place] [address], [address], 08/09/2023 15:29:24 08/09/19 24 08/09/2023 COMP. METAB OLIC PANEL glucose 123 mg/dL 74-100 high Not Available [facility] [address] [place] [address], [address], 08/09/2023 15:28:21 08/09/19 24 08/09/2023 COMP. METAB OLIC PANEL blood urea nitrogen 16 mg/dL 6-20 normal Not Available [facility] [address] [place] [address], [address], 08/09/2023 15:28:21 08/09/19 24 08/09/2023 COMP. METAB OLIC PANEL creatinine 1.40 mg/dL 0.50-0 .95 high Not Available [facility] [address] [place] [address], [address], 08/09/2023 15:28:21 08/09/19 24 08/09/2023 COMP. METAB OLIC PANEL BUN/creatini ne ratio 11 (calc ) 10-20 normal Not Available [facility] [address] [place] [address], [address], 08/09/2023 15:28:21 08/09/19 24 08/09/2023 COMP. METAB OLIC PANEL sodium 139 mmol/ L 136-14 5 normal Not Available [facility] [address] [place] [address], [address], 08/09/2023 15:28:21 08/09/19 24 08/09/2023 COMP. METAB OLIC PANEL potassium 4.4 mmol/ L 3.4-5. 0 normal Not Available [facility] [address] [place] [address], [address], 08/09/2023 15:28:21 08/09/19 24 08/09/2023 COMP. METAB OLIC PANEL chloride 102 mmol/ L 98-107 normal Not Available [facility] [address] [place] [address], [address], 08/09/2023 15:28:21 08/09/19 24 08/09/2023 COMP. METAB OLIC PANEL carbon dioxide 24 mmol/ L 22-31 normal Not Available [facility] [address] [place] [address], [address], 08/09/2023 15:28:21 08/09/19 24 08/09/2023 COMP. METAB OLIC PANEL anion gap 13 (calc ) 7-25 normal Not Available [facility] [address] [place] [address], [address], 08/09/2023 15:28:21 08/09/19 24 08/09/2023 COMP. METAB OLIC PANEL calcium 9.4 mg/dL 8.6-10 .2 normal Not Available [facility] [address] [place] [address], [address], 08/09/2023 15:28:21 08/09/19 24 08/09/2023 COMP. METAB OLIC PANEL total protein 7.5 g/dL 6.4-8. 3 normal Not Available [facility] [address] [place] [address], [address], 08/09/2023 15:28:21 08/09/19 24 08/09/2023 COMP. METAB OLIC PANEL albumin 4.4 g/dL 3.5-5. 2 normal Not Available [facility] [address] [place] [address], [address], 08/09/2023 15:28:21 08/09/19 24 08/09/2023 COMP. METAB OLIC PANEL globulin 3.1 1.5-4. 5 normal Not Available [facility] [address] [place] [address], [address], 08/09/2023 15:28:21 08/09/19 24 08/09/2023 COMP. METAB OLIC PANEL albumin/glob ulin ratio 1.4 (calc ) 1.1-2. 5 normal Not Available [facility] [address] [place] [address], [address], 08/09/2023 15:28:21 08/09/19 24 08/09/2023 COMP. METAB OLIC PANEL bilirubin, total 0.9 mg/dL 0.1-1. 2 normal Not Available [facility] [address] [place], [address], 08/09/2023 15:28:21 08/09/19 24 08/09/2023 COMP. METAB OLIC PANEL alkaline phosphatase 74 U/L 30-121 normal Not Available [facility] [address] [place], [address], 08/09/2023 15:28:21 08/09/19 24 08/09/2023 COMP. METAB OLIC PANEL AST 15 U/L 0-32 normal Not Available [facility] [address] [place] [address], [address], 08/09/2023 15:28:21 08/09/19 24 08/09/2023 COMP. METAB OLIC PANEL ALT 10 U/L 0-33 normal Not Available [facility] [address] [place] [address], [address], 08/09/2023 15:28:21 08/09/19 24 08/09/2023 COMP. METAB OLIC PANEL GFR 38 >= 60 abnormal NOT E New calcu latio n for GFR (CKD- EPI 2020) is formu lated witho ut race adjus tment facto rs at the [facility] menda tion of the [employer] [facility] [employer] at[facility] and [facility]i can [facility] ty of Nephr ology . This calcu latio n has not been valid ated in pregn ant women . For pedia dina patie nts refer to https ://heike [email or web address]/deep adorno s/YARIO QI/gf r_cal culat orPed Not Available [facility] [address] [place] [address], [address], 08/09/2023 15:28:21 08/09/19 24 08/09/2023 MANUA L DIFFE RENTI AL % band neutrophils 0.0 % 0.0-7. 0 normal Not Available [facility] [address] [place] [address], [address], 08/09/2023 15:11:11 08/09/19 24 08/09/2023 MANUA L DIFFE RENTI AL % atypical lymphocytes 0 % 0-1 normal Not Available [facility] [address] [place] [address], [address], 08/09/2023 15:11:11 08/09/19 24 08/09/2023 MANUA L DIFFE RENTI AL % metamyelocyt es 0 % 0-1 normal Not Available [facility] [address] [place] [address], [address], 08/09/2023 15:11:11 08/09/19 24 08/09/2023 MANUA L DIFFE RENTI AL % myelocytes 0 % 0-1 normal Not Available [facility] [address] [place] [address], [address], 08/09/2023 15:11:11 08/09/19 24 08/09/2023 MANUA L DIFFE RENTI AL % promyelocyte s 0 % 0 normal Not Available [facility] [address] [place] [address], [address], 08/09/2023 15:11:11 08/09/19 24 08/09/2023 MANUA L DIFFE RENTI AL % blast 0 % 0 normal Not Available [facility] [address] [place] [address], [address], 08/09/2023 15:11:11 08/09/19 24 08/09/2023 MANUA L DIFFE RENTI AL nucleated red cells 0 /100{ WBC} 0-1 normal Not Available [facility] [address] [place] [address], [address], 08/09/2023 15:11:11 08/09/19 24 08/09/2023 MANUA L DIFFE RENTI AL smudge cells 0 /100{ WBC} 0 normal Not Available [facility] [address] [place] [address], [address], 08/09/2023 15:11:11 08/09/19 24 08/09/2023 MANUA L DIFFE RENTI AL platelet morphology NORMAL normal Not Available [facility] [address] [place] [address], [address], 08/09/2023 15:11:11 08/09/19 24 08/09/2023 MANUA L DIFFE RENTI AL ovalocytes SLIGHT abnormal Not Available [facility] [address] [place] [address], [address], 08/09/2023 15:11:11 08/09/19 24 08/09/2023 COMPL ETE BLOOD COUNT white blood cells 9.3 10*3/ uL 3.8-10 .8 normal Not Available [facility] [address] [place] [address], [address], 08/09/2023 15:11:10 08/09/19 24 08/09/2023 COMPL ETE BLOOD COUNT red blood cells 4.31 10*6/ uL 3.80-5 .20 normal Not Available [facility] [address] [place] [address], [address], 08/09/2023 15:11:10 08/09/19 24 08/09/2023 COMPL ETE BLOOD COUNT hemoglobin 12.7 g/dL 12.0-1 6.0 normal Not Available [facility] [address] [place] [address], [address], 08/09/2023 15:11:10 08/09/19 24 08/09/2023 COMPL ETE BLOOD COUNT hematocrit 38.5 % 35.0-4 7.0 normal Not Available [facility] [address] [place] [address], [address], 08/09/2023 15:11:10 08/09/19 24 08/09/2023 COMPL ETE BLOOD COUNT MCV 89 fL 80-100 normal Not Available [facility] [address] [place] [address], [address], 08/09/2023 15:11:10 08/09/19 24 08/09/2023 COMPL ETE BLOOD COUNT MCH 30 pg 26-35 normal Not Available [facility] [address] [place] [address], [address], 08/09/2023 15:11:10 08/09/19 24 08/09/2023 COMPL ETE BLOOD COUNT MCHC 33 g/dL 32-36 normal Not Available [facility] [address] [place] [address], [address], 08/09/2023 15:11:10 08/09/19 24 08/09/2023 COMPL ETE BLOOD COUNT RDW 15.3 % 11.0-1 5.0 high Not Available [facility] [address] [place] [address], [address], 08/09/2023 15:11:10 08/09/19 24 08/09/2023 COMPL ETE BLOOD COUNT MPV 7.8 fL 6.2-10 .5 normal Not Available [facility] [address] [place] [address], [address], 08/09/2023 15:11:10 08/09/19 24 08/09/2023 COMPL ETE BLOOD COUNT platelet count 166 10*3/ uL 150-40 0 normal Not Available [facility] [address] [place] [address], [address], 08/09/2023 15:11:10 08/09/19 24 08/09/2023 COMPL ETE BLOOD COUNT neutrophil,a bsolute 2.7 10*3/ uL 1.6-8. 4 normal Not Available [facility] [address] [place] [address], [address], 08/09/2023 15:11:10 08/09/19 24 08/09/2023 COMPL ETE BLOOD COUNT lymphocyte,a bsolute 5.9 10*3/ uL 0.4-5. 1 high Not Available [facility] [address] [place] [address], [address], 08/09/2023 15:11:10 08/09/19 24 08/09/2023 COMPL ETE BLOOD COUNT monocyte,abs olute 0.7 10*3/ uL 0.0-1. 2 normal Not Available [facility] [address] [place] [address], [address], 08/09/2023 15:11:10 08/09/19 24 08/09/2023 COMPL ETE BLOOD COUNT eosinophil,a bsolute 0.1 10*3/ uL 0.0-0. 8 normal Not Available [facility] [address] [place] [address], [address], 08/09/2023 15:11:10 08/09/19 24 08/09/2023 COMPL ETE BLOOD COUNT basophil,abs olute 0.0 10*3/ uL 0.0-0. 3 normal Not Available [facility] [address] [place] [address], [address], 08/09/2023 15:11:10 08/09/19 24 08/09/2023 COMPL ETE BLOOD COUNT % neutrophils 29.0 % 42.0-7 8.0 low Not Available [facility] [address] [place] [address], [address], 08/09/2023 15:11:10 08/09/19 24 08/09/2023 COMPL ETE BLOOD COUNT % lymphocytes 63.0 % 11.0-4 7.0 high Not Available [facility] [address] [place] [address], [address], 08/09/2023 15:11:10 08/09/19 24 08/09/2023 COMPL ETE BLOOD COUNT % monocytes 7.0 % 0.0-11 .0 normal Not Available [facility] [address] [place] [address], [address], 08/09/2023 15:11:10 08/09/19 24 08/09/2023 COMPL ETE BLOOD COUNT % eosinophils 1.0 % 0.0-7. 0 normal Not Available [facility] [address] [place] [address], [address], 08/09/2023 15:11:10 08/09/19 24 08/09/2023 COMPL ETE BLOOD COUNT % basophils 0.0 % 0.0-3. 0 normal Not Available [facility] [address] [place] [address], [address], 08/09/2023 15:11:10 08/09/19 24 08/09/2023 COMPL ETE BLOOD COUNT nucleated red cells 0.2 % 0.0-0. 9 normal Not Available [facility] [address] [place] [address], [address], 08/09/2023 15:11:10 08/09/19 24 08/09/2023 COMPL ETE BLOOD COUNT nucleated RBCs, absolute 0.02 10*3/ uL not estab. normal Not Available [facility] [address] [place] [address], [address], 08/09/2023 15:11:10 11/08/19 24 11/08/2023 LDH LDH 173 U/L 135-23 3 normal Not Available [facility] [address] [place] [address], [address], 11/08/2023 13:08:20 11/08/19 24 11/08/2023 URIC ACID uric acid 6.6 mg/dL 2.4-5. 7 high Refer ence range s are based [facility] norms and do not neces leesa slater late with treat ment tarharriet ts. In patie nts with an estab lishe d diagn osis of gout under going Urate Lower ing Thera py (ULT) , the 2011 Michelle puentes [facility] of Rheum atolo gy James hanna s for Manag ement of Gout recom mend a targe t uric acid level of < 6 mg/dL in all patie nts, or lower in certa in circu mstan ym. Arthr itis Care and Resea [facility] Vol 64 No 10, 2011 Michelle puentes Colle ge of Rheum atolo gy ----- ----- ----- ----- ----- ----- ----- ----- ----- ----- ----- ---- Not Available [facility] [address] [place] [address], [address], 11/08/2023 12:56:00 11/08/19 24 11/08/2023 COMP. METAB OLIC PANEL glucose 124 mg/dL 74-100 high Not Available [facility] [address] [place] [address], [address], 11/08/2023 12:55:58 11/08/19 24 11/08/2023 COMP. METAB OLIC PANEL blood urea nitrogen 20 mg/dL 6-20 normal Not Available [facility] [address] [place] [address], [address], 11/08/2023 12:55:58 11/08/19 24 11/08/2023 COMP. METAB OLIC PANEL creatinine 1.52 mg/dL 0.50-0 .95 high Not Available [facility] [address] [place] [address], [address], 11/08/2023 12:55:58 11/08/19 24 11/08/2023 COMP. METAB OLIC PANEL BUN/creatini ne ratio 13 (calc ) 10-20 normal Not Available [facility] [address] [place] [address], [address], 11/08/2023 12:55:58 11/08/19 24 11/08/2023 COMP. METAB OLIC PANEL sodium 139 mmol/ L 136-14 5 normal Not Available [facility] [address] [place] [address], [address], 11/08/2023 12:55:58 11/08/19 24 11/08/2023 COMP. METAB OLIC PANEL potassium 3.9 mmol/ L 3.4-5. 0 normal Not Available [facility] [address] [place] [address], [address], 11/08/2023 12:55:58 11/08/19 24 11/08/2023 COMP. METAB OLIC PANEL chloride 103 mmol/ L 98-107 normal Not Available [facility] [address] [place] [address], [address], 11/08/2023 12:55:58 11/08/19 24 11/08/2023 COMP. METAB OLIC PANEL carbon dioxide 24 mmol/ L 22-31 normal Not Available [facility] [address] [place] [address], [address], 11/08/2023 12:55:58 11/08/19 24 11/08/2023 COMP. METAB OLIC PANEL anion gap 12 (calc ) 7-25 normal Not Available [facility] [address] [place] [address], [address], 11/08/2023 12:55:58 11/08/19 24 11/08/2023 COMP. METAB OLIC PANEL calcium 8.7 mg/dL 8.6-10 .2 normal Not Available [facility] [address] [place] [address], [address], 11/08/2023 12:55:58 11/08/19 24 11/08/2023 COMP. METAB OLIC PANEL total protein 6.8 g/dL 6.4-8. 3 normal Not Available [facility] [address] [place] [address], [address], 11/08/2023 12:55:58 11/08/19 24 11/08/2023 COMP. METAB OLIC PANEL albumin 4.1 g/dL 3.5-5. 2 normal Not Available [facility] [address] [place] [address], [address], 11/08/2023 12:55:58 11/08/19 24 11/08/2023 COMP. METAB OLIC PANEL globulin 2.7 1.5-4. 5 normal Not Available [facility] [address] [place] [address], [address], 11/08/2023 12:55:58 11/08/19 24 11/08/2023 COMP. METAB OLIC PANEL albumin/glob ulin ratio 1.5 (calc ) 1.1-2. 5 normal Not Available [facility] [address] [place] [address], [address], 11/08/2023 12:55:58 11/08/19 24 11/08/2023 COMP. METAB OLIC PANEL bilirubin, total 0.6 mg/dL 0.1-1. 2 normal Not Available [facility] [address] [place] [address], [address], 11/08/2023 12:55:58 11/08/19 24 11/08/2023 COMP. METAB OLIC PANEL alkaline phosphatase 82 U/L 30-121 normal Not Available [facility] [address] [place] [address], [address], 11/08/2023 12:55:58 11/08/19 24 11/08/2023 COMP. METAB OLIC PANEL AST 13 U/L 0-32 normal Not Available [facility] [address] [place] [address], [address], 11/08/2023 12:55:58 11/08/19 24 11/08/2023 COMP. METAB OLIC PANEL ALT 9 U/L 0-33 normal Not Available [facility] [address] [place] [address], [address], 11/08/2023 12:55:58 11/08/19 24 11/08/2023 COMP. METAB OLIC PANEL GFR 34 >= 60 abnormal NOT E New calcu latio n for GFR (CKD- EPI 2020) is formu lated witho ut race adjus tment facto rs at the recom menda tion of the [employer] [facility] [employer] ation and [employer] ty of Nephr ology . This calcu latio n has not been valid ated in pregn ant women . For pedia tric patie nts refer to https ://heike [email or web address] rg/pr ofess ional s/KDO QI/gf r_cal culat orPed Not Available [facility] [address] [place] [address], [address], 11/08/2023 12:55:58 11/08/19 24 11/08/2023 MANUA L DIFFE RENTI AL % band neutrophils 2.0 % 0.0-7. 0 normal Not Available [facility] [address] [place] [address], [address], 11/08/2023 12:54:51 11/08/19 24 11/08/2023 MANUA L DIFFE RENTI AL % atypical lymphocytes 5 % 0-1 high Not Available [facility] [address] [place] [address], [address], 11/08/2023 12:54:51 11/08/19 24 11/08/2023 MANUA L DIFFE RENTI AL % metamyelocyt es 0 % 0-1 normal Not Available [facility] [address] [place], [address], 11/08/2023 12:54:51 11/08/19 24 11/08/2023 MANUA L DIFFE RENTI AL % myelocytes 0 % 0-1 normal Not Available [facility] [address] [place] [address], [address], 11/08/2023 12:54:51 11/08/19 24 11/08/2023 MANUA L DIFFE RENTI AL % promyelocyte s 0 % 0 normal Not Available [facility] [address] [place] [address], [address], 11/08/2023 12:54:51 11/08/19 24 11/08/2023 MANUA L DIFFE RENTI AL % blast 0 % 0 normal Not Available [facility] [address] [place] [address], [address], 11/08/2023 12:54:51 11/08/19 24 11/08/2023 MANUA L DIFFE RENTI AL nucleated red cells 0 /100{ WBC} 0-1 normal Not Available [facility] [address] [place] [address], [address], 11/08/2023 12:54:51 11/08/19 24 11/08/2023 MANUA L DIFFE RENTI AL smudge cells 0 /100{ WBC} 0 normal Not Available [facility] [address] [place] [address], [address], 11/08/2023 12:54:51 11/08/19 24 11/08/2023 MANUA L DIFFE RENTI AL platelet morphology NORMAL normal Not Available [facility] [address] [place] [address], [address], 11/08/2023 12:54:51 11/08/19 24 11/08/2023 MANUA L DIFFE RENTI AL hypochromasi a SLIGHT abnormal Not Available [facility] [address] [place] [address], [address], 11/08/2023 12:54:51 11/08/19 24 11/08/2023 MANUA L DIFFE RENTI AL polychromasi a SLIGHT abnormal Not Available [facility] [address] [place] [address], [address], 11/08/2023 12:54:51 11/08/19 24 11/08/2023 MAXX CHRISTENSEN RENTI AL ovalocytes SLIGHT abnormal Not Available [facility] [address] [place] [address], [address], 11/08/2023 12:54:51 11/08/19 24 11/08/2023 COMPL ETE BLOOD COUNT white blood cells 12.8 10*3/ uL 3.8-10 .8 high Not Available [facility] [address] [place] [address], [address], 11/08/2023 12:54:49 11/08/19 24 11/08/2023 COMPL ETE BLOOD COUNT red blood cells 4.02 10*6/ uL 3.80-5 .20 normal Not Available [facility] [address] [place] [address], [address], 11/08/2023 12:54:49 11/08/19 24 11/08/2023 COMPL ETE BLOOD COUNT hemoglobin 11.6 g/dL 12.0-1 6.0 low Not Available [facility] [address] [place] [address], [address], 11/08/2023 12:54:49 11/08/19 24 11/08/2023 COMPL ETE BLOOD COUNT hematocrit 35.5 % 35.0-4 7.0 normal Not Available [facility] [address] [place] [address], [address], 11/08/2023 12:54:49 11/08/19 24 11/08/2023 COMPL ETE BLOOD COUNT MCV 88 fL 80-100 normal Not Available [facility] [address] [place] [address], [address], 11/08/2023 12:54:49 11/08/19 24 11/08/2023 COMPL ETE BLOOD COUNT MCH 29 pg 26-35 normal Not Available [facility] [address] [place] [address], [address], 11/08/2023 12:54:49 11/08/19 24 11/08/2023 COMPL ETE BLOOD COUNT MCHC 33 g/dL 32-36 normal Not Available [facility] [address] [place] [address], [address], 11/08/2023 12:54:49 11/08/19 24 11/08/2023 COMPL ETE BLOOD COUNT RDW 15.4 % 11.0-1 5.0 high Not Available [facility] [address] [place] [address], [address], 11/08/2023 12:54:49 11/08/19 24 11/08/2023 COMPL ETE BLOOD COUNT MPV 7.2 fL 6.2-10 .5 normal Not Available [facility] [address] [place] [address], [address], 11/08/2023 12:54:49 11/08/19 24 11/08/2023 COMPL ETE BLOOD COUNT platelet count 144 10*3/ uL 150-40 0 low Not Available [facility] [address] [place] [address], [address], 11/08/2023 12:54:49 11/08/19 24 11/08/2023 COMPL ETE BLOOD COUNT neutrophil,a bsolute 2.2 10*3/ uL 1.6-8. 4 normal Not Available [facility] [address] [place] [address], [address], 11/08/2023 12:54:49 11/08/19 24 11/08/2023 COMPL ETE BLOOD COUNT lymphocyte,a bsolute 10.1 10*3/ uL 0.4-5. 1 high Not Available [facility] [address] [place] [address], [address], 11/08/2023 12:54:49 11/08/19 24 11/08/2023 COMPL ETE BLOOD COUNT monocyte,abs olute 0.5 10*3/ uL 0.0-1. 2 normal Not Available [facility] [address] [place] [address], [address], 11/08/2023 12:54:49 11/08/19 24 11/08/2023 COMPL ETE BLOOD COUNT eosinophil,a bsolute 0.0 10*3/ uL 0.0-0. 8 normal Not Available [facility] [address] [place] [address], [address], 11/08/2023 12:54:49 11/08/19 24 11/08/2023 COMPL ETE BLOOD COUNT basophil,abs olute 0.0 10*3/ uL 0.0-0. 3 normal Not Available [facility] [address] [place] [address], [address], 11/08/2023 12:54:49 11/08/19 24 11/08/2023 COMPL ETE BLOOD COUNT % neutrophils 15.0 % 42.0-7 8.0 low Not Available [facility] [address] [place] [address], [address], 11/08/2023 12:54:49 11/08/19 24 11/08/2023 COMPL ETE BLOOD COUNT % lymphocytes 74.0 % 11.0-4 7.0 high Not Available [facility] [address] [place] [address], [address], 11/08/2023 12:54:49 11/08/19 24 11/08/2023 COMPL ETE BLOOD COUNT % monocytes 4.0 % 0.0-11 .0 normal Not Available [facility] [address] [place] [address], [address], 11/08/2023 12:54:49 11/08/19 24 11/08/2023 COMPL ETE BLOOD COUNT % eosinophils 0.0 % 0.0-7. 0 normal Not Available [facility] [address] [place] [address], [address], 11/08/2023 12:54:49 11/08/19 24 11/08/2023 COMPL ETE BLOOD COUNT % basophils 0.0 % 0.0-3. 0 normal Not Available [facility] [address] [place] [address], [address], 11/08/2023 12:54:49 11/08/19 24 11/08/2023 COMPL ETE BLOOD COUNT nucleated red cells 0.1 % 0.0-0. 9 normal Not Available [facility] [address] [place], [address], 11/08/2023 12:54:49 11/08/19 24 11/08/2023 COMPL ETE BLOOD COUNT nucleated RBCs, absolute 0.01 10*3/ uL not estab. normal Not Available [facility] [address] [place] [address], [address], 11/08/2023 12:54:49 12/28/19 24 12/28/2023 URIC ACID uric acid 6.0 mg/dL 2.4-5. 7 high Refer ence range s are based on [facility] norms and do not neces leesa slater [...] mstan my. Arthr itis Care and Resea [facility] Vol 64 No 10, 2011 Michelle can Colle ge of Rheum atolo gy ----- ----- ----- ----- ----- ----- ----- ----- ----- ----- ----- ---- Not Available [facility] [address] [place] [address], [address], 12/28/2023 13:49:59 12/28/19 24 12/28/2023 LDH LDH 169 U/L 135-23 3 normal Not Available [facility] [address] [place] [address], [address], 12/28/2023 13:49:58 12/28/19 24 12/28/2023 COMP. METAB OLIC PANEL glucose 124 mg/dL 74-100 high Not Available [facility] [address] [place] [address], [address], 12/28/2023 13:49:56 12/28/19 24 12/28/2023 COMP. METAB OLIC PANEL blood urea nitrogen 16 mg/dL 6-20 normal Not Available [facility] [address] [place] [address], [address], 12/28/2023 13:49:56 12/28/19 24 12/28/2023 COMP. METAB OLIC PANEL creatinine 1.23 mg/dL 0.50-0 .95 high Not Available [facility] [address] [place] [address], [address], 12/28/2023 13:49:56 12/28/19 24 12/28/2023 COMP. METAB OLIC PANEL BUN/creatini ne ratio 13 (calc ) 10-20 normal Not Available [facility] [address] [place] [address], [address], 12/28/2023 13:49:56 12/28/19 24 12/28/2023 COMP. METAB OLIC PANEL sodium 138 mmol/ L 136-14 5 normal Not Available [facility] [address] [place] [address], [address], 12/28/2023 13:49:56 12/28/19 24 12/28/2023 COMP. METAB OLIC PANEL potassium 4.1 mmol/ L 3.4-5. 0 normal Not Available [facility] [address] [place] [address], [address], 12/28/2023 13:49:56 12/28/19 24 12/28/2023 COMP. METAB OLIC PANEL chloride 102 mmol/ L 98-107 normal Not Available [facility] [address] [place] [address], [address], 12/28/2023 13:49:56 12/28/19 24 12/28/2023 COMP. METAB OLIC PANEL carbon dioxide 22 mmol/ L 22-31 normal Not Available [facility] [address] [place] [address], [address], 12/28/2023 13:49:56 12/28/19 24 12/28/2023 COMP. METAB OLIC PANEL anion gap 14 (calc ) 7-25 normal Not Available [facility] [address] [place] [address], [address], 12/28/2023 13:49:56 12/28/19 24 12/28/2023 COMP. METAB OLIC PANEL calcium 8.8 mg/dL 8.6-10 .2 normal Not Available [facility] [address] [place] [address], [address], 12/28/2023 13:49:56 12/28/19 24 12/28/2023 COMP. METAB OLIC PANEL total protein 6.8 g/dL 6.4-8. 3 normal Not Available [facility] [address] [place] [address], [address], 12/28/2023 13:49:56 12/28/19 24 12/28/2023 COMP. METAB OLIC PANEL albumin 3.9 g/dL 3.5-5. 2 normal Not Available [facility] [address] [place] [address], [address], 12/28/2023 13:49:56 12/28/19 24 12/28/2023 COMP. METAB OLIC PANEL globulin 2.9 1.5-4. 5 normal Not Available [facility] [address] [place] [address], [address], 12/28/2023 13:49:56 12/28/19 24 12/28/2023 COMP. METAB OLIC PANEL albumin/glob ulin ratio 1.3 (calc ) 1.1-2. 5 normal Not Available [facility] [address] [place], [address], 12/28/2023 13:49:56 12/28/19 24 12/28/2023 COMP. METAB OLIC PANEL bilirubin, total 0.5 mg/dL 0.1-1. 2 normal Not Available [facility] [address] [place], [address], 12/28/2023 13:49:56 12/28/19 24 12/28/2023 COMP. METAB OLIC PANEL alkaline phosphatase 79 U/L 30-121 normal Not Available [facility] [address] [place], [address], 12/28/2023 13:49:56 12/28/19 24 12/28/2023 COMP. METAB OLIC PANEL AST 14 U/L 0-32 normal Not Available [facility] [address] [place] [address], [address], 12/28/2023 13:49:56 12/28/19 24 12/28/2023 COMP. METAB OLIC PANEL ALT 9 U/L 0-33 normal Not Available [facility] [address] [place] [address], [address], 12/28/2023 13:49:56 12/28/19 24 12/28/2023 COMP. METAB OLIC PANEL GFR 44 >= 60 abnormal NOT E New calcu latio n for GFR (CKD- EPI 2020) is formu lated witho ut race adjus tment facto rs at the [facility] menda tion of the [facility] ty of Nephr ology . This calcu latio n has not been valid ated in pregn ant women . For pedia tric patie nts refer to https :[email or web address] claudio/pr lia adorno s/KDO QI/gf r_cal culat orPed Not Available [facility] [address] [place] [address], [address], 12/28/2023 13:49:56 12/28/19 24 12/28/2023 MANUA L DIFFE RENTI AL % band neutrophils 0.0 % 0.0-7. 0 normal Not Available [facility] [address] [place] [address], [address], 12/28/2023 13:48:23 12/28/19 24 12/28/2023 MANUA L DIFFE RENTI AL % atypical lymphocytes 0 % 0-1 normal Not Available [facility] [address] [place] [address], [address], 12/28/2023 13:48:23 12/28/19 24 12/28/2023 MANUA L DIFFE RENTI AL % metamyelocyt es 0 % 0-1 normal Not Available [facility] [address] [place] [address], [address], 12/28/2023 13:48:23 12/28/19 24 12/28/2023 MANUA L DIFFE RENTI AL % myelocytes 0 % 0-1 normal Not Available [facility] [address] [place] [address], [address], 12/28/2023 13:48:23 12/28/19 24 12/28/2023 MANUA L DIFFE RENTI AL % promyelocyte s 0 % 0 normal Not Available [facility] [address] [place] [address], [address], 12/28/2023 13:48:23 12/28/19 24 12/28/2023 MANUA L DIFFE RENTI AL % blast 0 % 0 normal Not Available [facility] [address] [place] [address], [address], 12/28/2023 13:48:23 12/28/19 24 12/28/2023 MANUA L DIFFE RENTI AL nucleated red cells 0 /100{ WBC} 0-1 normal Not Available [facility] [address] [place] [address], [address], 12/28/2023 13:48:23 12/28/19 24 12/28/2023 MANUA L DIFFE RENTI AL smudge cells 0 /100{ WBC} 0 normal Not Available [facility] [address] [place] [address], [address], 12/28/2023 13:48:23 12/28/19 24 12/28/2023 MANUA L DIFFE RENTI AL RBC morphology NORMAL normal Not Available [facility] [address] [place] [address], [address], 12/28/2023 13:48:23 12/28/19 24 12/28/2023 MANUA L DIFFE RENTI AL platelet morphology NORMAL normal Not Available [facility] [address] [place] [address], [address], 12/28/2023 13:48:23 12/28/19 24 12/28/2023 COMPL ETE BLOOD COUNT white blood cells 16.2 10*3/ uL 3.8-10 .8 high Not Available [facility] [address] [place] [address], [address], 12/28/2023 13:48:22 12/28/19 24 12/28/2023 COMPL ETE BLOOD COUNT red blood cells 4.15 10*6/ uL 3.80-5 .20 normal Not Available [facility] [address] [place] [address], [address], 12/28/2023 13:48:22 12/28/19 24 12/28/2023 COMPL ETE BLOOD COUNT hemoglobin 11.5 g/dL 12.0-1 6.0 low Not Available [facility] [address] [place] [address], [address], 12/28/2023 13:48:22 12/28/19 24 12/28/2023 COMPL ETE BLOOD COUNT hematocrit 36.3 % 35.0-4 7.0 normal Not Available [facility] [address] [place] [address], [address], 12/28/2023 13:48:22 12/28/19 24 12/28/2023 COMPL ETE BLOOD COUNT MCV 88 fL 80-100 normal Not Available [facility] [address] [place] [address], [address], 12/28/2023 13:48:22 12/28/19 24 12/28/2023 COMPL ETE BLOOD COUNT MCH 28 pg 26-35 normal Not Available [facility] [address] [place] [address], [address], 12/28/2023 13:48:22 12/28/19 24 12/28/2023 COMPL ETE BLOOD COUNT MCHC 32 g/dL 32-36 normal Not Available [facility] [address] [place] [address], [address], 12/28/2023 13:48:22 12/28/19 24 12/28/2023 COMPL ETE BLOOD COUNT RDW 15.0 % 11.0-1 5.0 normal Not Available [facility] [address] [place] [address], [address], 12/28/2023 13:48:22 12/28/1912/28/2023 COMPL ETE BLOOD COUNT MPV 7.7 fL 6.2-10 .5 normal Not Available [facility] [address] [place] [address], [address], 12/28/2023 13:48:22 12/28/1912/28/2023 COMPL ETE BLOOD COUNT platelet count 128 10*3/ uL 150-40 0 low Not Available [facility] [address] [place] [address], [address], 12/28/2023 13:48:22 12/28/19 24 12/28/2023 COMPL ETE BLOOD COUNT neutrophil,a bsolute 4.4 10*3/ uL 1.6-8. 4 normal Not Available [facility] [address] [place] [address], [address], 12/28/2023 13:48:22 12/28/19 24 12/28/2023 COMPL ETE BLOOD COUNT lymphocyte,a bsolute 11.5 10*3/ uL 0.4-5. 1 high Not Available [facility] [address] [place] [address], [address], 12/28/2023 13:48:22 12/28/19 24 12/28/2023 COMPL ETE BLOOD COUNT monocyte,abs olute 0.3 10*3/ uL 0.0-1. 2 normal Not Available [facility] [address] [place] [address], [address], 12/28/2023 13:48:22 12/28/19 24 12/28/2023 COMPL ETE BLOOD COUNT eosinophil,a bsolute 0.0 10*3/ uL 0.0-0. 8 normal Not Available [facility] [address] [place] [address], [address], 12/28/2023 13:48:22 12/28/19 24 12/28/2023 COMPL ETE BLOOD COUNT basophil,abs olute 0.0 10*3/ uL 0.0-0. 3 normal Not Available [facility] [address] [place] [address], [address], 12/28/2023 13:48:22 12/28/19 24 12/28/2023 COMPL ETE BLOOD COUNT % neutrophils 27.0 % 42.0-7 8.0 low Not Available [facility] [address] [place] [address], [address], 12/28/2023 13:48:22 12/28/19 24 12/28/2023 COMPL ETE BLOOD COUNT % lymphocytes 71.0 % 11.0-4 7.0 high Not Available [facility] [address] [place] [address], [address], 12/28/2023 13:48:22 12/28/19 24 12/28/2023 COMPL ETE BLOOD COUNT % monocytes 2.0 % 0.0-11 .0 normal Not Available [facility] [address] [place] [address], [address], 12/28/2023 13:48:22 12/28/19 24 12/28/2023 COMPL ETE BLOOD COUNT % eosinophils 0.0 % 0.0-7. 0 normal Not Available [facility] [address] [place] [address], [address], 12/28/2023 13:48:22 12/28/19 24 12/28/2023 COMPL ETE BLOOD COUNT % basophils 0.0 % 0.0-3. 0 normal Not Available [facility] [address] [place] [address], [address], 12/28/2023 13:48:22 12/28/19 24 12/28/2023 COMPL ETE BLOOD COUNT nucleated red cells 0.1 % 0.0-0. 9 normal Not Available [facility] [address] [place] [address], [address], 12/28/2023 13:48:22 12/28/19 24 12/28/2023 COMPL ETE BLOOD COUNT nucleated RBCs, absolute 0.01 10*3/ uL not estab. normal Not Available [facility] [address] [place] [address], [address], 12/28/2023 13:48:22 05/09/19 25 05/09/2024 COMP. METAB OLIC PANEL glucose 75 mg/dL 74-100 normal Not Available [facility] [address] [place] [address], [address], 05/09/2024 14:04:13 05/09/19 25 05/09/2024 COMP. METAB OLIC PANEL blood urea nitrogen 20 mg/dL 6-20 normal Not Available [facility] [address] [place] [address], [address], 05/09/2024 14:04:13 05/09/19 25 05/09/2024 COMP. METAB OLIC PANEL creatinine 1.53 mg/dL 0.50-0 .95 high Not Available [facility] [address] [place] [address], [address], 05/09/2024 14:04:13 05/09/19 25 05/09/2024 COMP. METAB OLIC PANEL BUN/creatini ne ratio 13 (calc ) 10-20 normal Not Available [facility] [address] [place] [address], [address], 05/09/2024 14:04:13 05/09/19 25 05/09/2024 COMP. METAB OLIC PANEL sodium 136 mmol/ L 136-14 5 normal Not Available [facility] [address] [place] [address], [address], 05/09/2024 14:04:13 05/09/19 25 05/09/2024 COMP. METAB OLIC PANEL potassium 4.1 mmol/ L 3.4-5. 0 normal Not Available [facility] [address] [place] [address], [address], 05/09/2024 14:04:13 05/09/19 25 05/09/2024 COMP. METAB OLIC PANEL chloride 100 mmol/ L 98-107 normal Not Available [facility] [address] [place] [address], [address], 05/09/2024 14:04:13 05/09/19 25 05/09/2024 COMP. METAB OLIC PANEL carbon dioxide 24 mmol/ L 22-31 normal Not Available [facility] [address] [place] [address], [address], 05/09/2024 14:04:13 05/09/19 25 05/09/2024 COMP. METAB OLIC PANEL anion gap 12 (calc ) 7-25 normal Not Available [facility] [address] [place] [address], [address], 05/09/2024 14:04:13 05/09/19 25 05/09/2024 COMP. METAB OLIC PANEL calcium 9.6 mg/dL 8.6-10 .2 normal Not Available [facility] [address] [place] [address], [address], 05/09/2024 14:04:13 05/09/19 25 05/09/2024 COMP. METAB OLIC PANEL total protein 7.1 g/dL 6.4-8. 3 normal Not Available [facility] [address] [place] [address], [address], 05/09/2024 14:04:13 05/09/19 25 05/09/2024 COMP. METAB OLIC PANEL albumin 4.4 g/dL 3.5-5. 2 normal Not Available [facility] [address] [place] [address], [address], 05/09/2024 14:04:13 05/09/19 25 05/09/2024 COMP. METAB OLIC PANEL globulin 2.7 1.5-4. 5 normal Not Available [facility] [address] [place] [address], [address], 05/09/2024 14:04:13 05/09/19 25 05/09/2024 COMP. METAB OLIC PANEL albumin/glob ulin ratio 1.6 (calc ) 1.1-2. 5 normal Not Available [facility] [address] [place] [address], [address], 05/09/2024 14:04:13 05/09/19 25 05/09/2024 COMP. METAB OLIC PANEL bilirubin, total 0.7 mg/dL 0.1-1. 2 normal Not Available [facility] [address] [place] [address], [address], 05/09/2024 14:04:13 05/09/19 25 05/09/2024 COMP. METAB OLIC PANEL alkaline phosphatase 77 U/L 30-121 normal Not Available [facility] [address] [place], [address], 05/09/2024 14:04:13 05/09/19 25 05/09/2024 COMP. METAB OLIC PANEL AST 15 U/L 0-32 normal Not Available [facility] [address] [place], [address], 05/09/2024 14:04:13 05/09/19 25 05/09/2024 COMP. METAB OLIC PANEL ALT 7 U/L 0-33 normal Not Available [facility] [address] [place] [address], [address], 05/09/2024 14:04:13 05/09/19 25 05/09/2024 COMP. METAB OLIC PANEL GFR 34 >= 60 abnormal NOT E New calcu latio n for GFR (CKD- EPI 2020) is formu lated witho ut race adjus tment facto rs at the recom menda tion of the [facility] and [facility] of Nephr ology . This calcu latio n has not been valid ated in pregn ant women . For pedia tric patie nts refer to https :[email or web address] claudio/deep adorno s/YARIO QI/gf r_cal culat orPed Not Available [facility] [address] [place], [address], 05/09/2024 14:04:13 05/09/19 25 05/09/2024 LDH LDH 176 U/L 135-23 3 normal Not Available [facility] [address] [place], [address], 05/09/2024 14:04:05 05/09/19 25 05/09/2024 MANUA L DIFFE RENTI AL % band neutrophils 1.0 % 0.0-7. 0 normal Not Available [facility] [address] [place] [address], [address], 05/09/2024 14:00:15 05/09/19 25 05/09/2024 MANUA L DIFFE RENTI AL % atypical lymphocytes 0 % 0-1 normal Not Available [facility] [address] [place] [address], [address], 05/09/2024 14:00:15 05/09/19 25 05/09/2024 MANUA L DIFFE RENTI AL % metamyelocyt es 0 % 0-1 normal Not Available [facility] [address] [place] [address], [address], 05/09/2024 14:00:15 05/09/19 25 05/09/2024 MANUA L DIFFE RENTI AL % myelocytes 0 % 0-1 normal Not Available [facility] [address] [place] [address], [address], 05/09/2024 14:00:15 05/09/19 25 05/09/2024 MANUA L DIFFE RENTI AL % promyelocyte s 0 % 0 normal Not Available [facility] [address] [place] [address], [address], 05/09/2024 14:00:15 05/09/19 25 05/09/2024 MANUA L DIFFE RENTI AL % blast 0 % 0 normal Not Available [facility] [address] [place] [address], [address], 05/09/2024 14:00:15 05/09/19 25 05/09/2024 MANUA L DIFFE RENTI AL nucleated red cells 0 /100{ WBC} 0-1 normal Not Available [facility] [address] [place] [address], [address], 05/09/2024 14:00:15 05/09/19 25 05/09/2024 MANUA L DIFFE RENTI AL smudge cells 0 /100{ WBC} 0 normal Not Available [facility] [address] [place] [address], [address], 05/09/2024 14:00:15 05/09/19 25 05/09/2024 MANUA L DIFFE RENTI AL platelet morphology NORMAL normal Not Available [facility] [address] [place] [address], [address], 05/09/2024 14:00:15 05/09/19 25 05/09/2024 MANUA L DIFFE RENTI AL polychromasi a SLIGHT abnormal Not Available [facility] [address] [place] [address], [address], 05/09/2024 14:00:15 05/09/19 25 05/09/2024 MANUA L DIFFE RENTI AL stomatocytes SLIGHT abnormal Not Available [facility] [address] [place] [address], [address], 05/09/2024 14:00:15 05/09/19 25 05/09/2024 COMPL ETE BLOOD COUNT white blood cells 29.7 10*3/ uL 3.8-10 .8 high RESUL TS RECHE CKED Not Available [facility] [address] [place] [address], [address], 05/09/2024 14:00:14 05/09/19 25 05/09/2024 COMPL ETE BLOOD COUNT red blood cells 4.17 10*6/ uL 3.80-5 .20 normal Not Available [facility] [address] [place] [address], [address], 05/09/2024 14:00:14 05/09/19 25 05/09/2024 COMPL ETE BLOOD COUNT hemoglobin 12.2 g/dL 12.0-1 6.0 normal Not Available [facility] [address] [place] [address], [address], 05/09/2024 14:00:14 05/09/19 25 05/09/2024 COMPL ETE BLOOD COUNT hematocrit 36.7 % 35.0-4 7.0 normal Not Available [facility] [address] [place] [address], [address], 05/09/2024 14:00:14 05/09/19 25 05/09/2024 COMPL ETE BLOOD COUNT MCV 88 fL 80-100 normal Not Available [facility] [address] [place] [address], [address], 05/09/2024 14:00:14 05/09/19 25 05/09/2024 COMPL ETE BLOOD COUNT MCH 29 pg 26-35 normal Not Available [facility] [address] [place] [address], [address], 05/09/2024 14:00:14 05/09/19 25 05/09/2024 COMPL ETE BLOOD COUNT MCHC 33 g/dL 32-36 normal Not Available [facility] [address] [place] [address], [address], 05/09/2024 14:00:14 05/09/19 25 05/09/2024 COMPL ETE BLOOD COUNT RDW 16.1 % 11.0-1 5.0 high Not Available [facility] [address] [place] [address], [address], 05/09/2024 14:00:14 05/09/19 25 05/09/2024 COMPL ETE BLOOD COUNT MPV 7.6 fL 6.2-10 .5 normal Not Available [facility] [address] [place] [address], [address], 05/09/2024 14:00:14 05/09/19 25 05/09/2024 COMPL ETE BLOOD COUNT platelet count 139 10*3/ uL 150-40 0 low Not Available [facility] [address] [place] [address], [address], 05/09/2024 14:00:14 05/09/19 25 05/09/2024 COMPL ETE BLOOD COUNT neutrophil,a bsolute 4.8 10*3/ uL 1.6-8. 4 normal Not Available [facility] [address] [place] [address], [address], 05/09/2024 14:00:14 05/09/19 25 05/09/2024 COMPL ETE BLOOD COUNT lymphocyte,a bsolute 24.1 10*3/ uL 0.4-5. 1 high Not Available [facility] [address] [place] [address], [address], 05/09/2024 14:00:14 05/09/19 25 05/09/2024 COMPL ETE BLOOD COUNT monocyte,abs olute 0.6 10*3/ uL 0.0-1. 2 normal Not Available [facility] [address] [place] [address], [address], 05/09/2024 14:00:14 05/09/19 25 05/09/2024 COMPL ETE BLOOD COUNT eosinophil,a bsolute 0.0 10*3/ uL 0.0-0. 8 normal Not Available [facility] [address] [place] [address], [address], 05/09/2024 14:00:14 05/09/19 25 05/09/2024 COMPL ETE BLOOD COUNT basophil,abs olute 0.3 10*3/ uL 0.0-0. 3 normal Not Available [facility] [address] [place] [address], [address], 05/09/2024 14:00:14 05/09/19 25 05/09/2024 COMPL ETE BLOOD COUNT % neutrophils 15.0 % 42.0-7 8.0 low Not Available [facility] [address] [place] [address], [address], 05/09/2024 14:00:14 05/09/19 25 05/09/2024 COMPL ETE BLOOD COUNT % lymphocytes 81.0 % 11.0-4 7.0 high Not Available [facility] [address] [place] [address], [address], 05/09/2024 14:00:14 05/09/19 25 05/09/2024 COMPL ETE BLOOD COUNT % monocytes 2.0 % 0.0-11 .0 normal Not Available [facility] [address] [place] [address], [address], 05/09/2024 14:00:14 05/09/19 25 05/09/2024 COMPL ETE BLOOD COUNT % eosinophils 0.0 % 0.0-7. 0 normal Not Available [facility] [address] [place] [address], [address], 05/09/2024 14:00:14 05/09/19 25 05/09/2024 COMPL ETE BLOOD COUNT % basophils 1.0 % 0.0-3. 0 normal Not Available [facility] [address] [place] [address], [address], 05/09/2024 14:00:14 05/09/19 25 05/09/2024 COMPL ETE BLOOD COUNT nucleated red cells 0.2 % 0.0-0. 9 normal Not Available [facility] [address] [place] [address], [address], 05/09/2024 14:00:14 05/09/19 25 05/09/2024 COMPL ETE BLOOD COUNT nucleated RBCs, absolute 0.05 10*3/ uL not estab. normal Not Available [facility] [address] [place] [address], [address], 05/09/2024 14:00:14 08/09/19 25 08/08/2024 LDH LDH 201 U/L 135-23 3 normal Not Available [facility] [address] [place] [address], [address], 08/08/2024 14:09:10 08/09/19 25 08/08/2024 MANUA L DIFFE RENTI AL % band neutrophils 0.0 % 0.0-7. 0 normal Not Available [facility] [address] [place] [address], [address], 08/08/2024 13:43:58 08/09/19 25 08/08/2024 MANUA L DIFFE RENTI AL % atypical lymphocytes 0 % 0-1 normal Not Available [facility] [address] [place] [address], [address], 08/08/2024 13:43:58 08/09/19 25 08/08/2024 MANUA L DIFFE RENTI AL % metamyelocyt es 0 % 0-1 normal Not Available [facility] [address] [place] [address], [address], 08/08/2024 13:43:58 08/09/19 25 08/08/2024 MANUA L DIFFE RENTI AL % myelocytes 0 % 0-1 normal Not Available [facility] [address] [place] [address], [address], 08/08/2024 13:43:58 08/09/19 25 08/08/2024 MANUA L DIFFE RENTI AL % promyelocyte s 0 % 0 normal Not Available [facility] [address] [place] [address], [address], 08/08/2024 13:43:58 08/09/19 25 08/08/2024 MANUA L DIFFE RENTI AL % blast 0 % 0 normal Not Available [facility] [address] [place] [address], [address], 08/08/2024 13:43:58 08/09/19 25 08/08/2024 MANUA L DIFFE RENTI AL nucleated red cells 0 /100{ WBC} 0-1 normal Not Available [facility] [address] [place] [address], [address], 08/08/2024 13:43:58 08/09/19 25 08/08/2024 MANUA L DIFFE RENTI AL smudge cells 0 /100{ WBC} 0 normal Not Available [facility] [address] [place] [address], [address], 08/08/2024 13:43:58 08/09/19 25 08/08/2024 MANUA L DIFFE RENTI AL platelet morphology NORMAL normal Not Available [facility] [address] [place] [address], [address], 08/08/2024 13:43:58 08/09/19 25 08/08/2024 MANUA L DIFFE RENTI AL polychromasi a SLIGHT abnormal Not Available [facility] [address] [place] [address], [address], 08/08/2024 13:43:58 08/09/19 25 08/08/2024 MANUA L DIFFE RENTI AL ovalocytes SLIGHT abnormal Not Available [facility] [address] [place] [address], [address], 08/08/2024 13:43:58 08/09/19 25 08/08/2024 COMPL ETE BLOOD COUNT white blood cells 39.1 10*3/ uL 3.8-10 .8 high RESUL TS RECHE CKED Not Available [facility] [address] [place] [address], [address], 08/08/2024 13:43:56 08/09/19 25 08/08/2024 COMPL ETE BLOOD COUNT red blood cells 3.87 10*6/ uL 3.80-5 .20 normal Not Available [facility] [address] [place] [address], [address], 08/08/2024 13:43:56 08/09/19 25 08/08/2024 COMPL ETE BLOOD COUNT hemoglobin 11.5 g/dL 12.0-1 6.0 low Not Available [facility] [address] [place] [address], [address], 08/08/2024 13:43:56 08/09/19 25 08/08/2024 COMPL ETE BLOOD COUNT hematocrit 36.2 % 35.0-4 7.0 normal Not Available [facility] [address] [place] [address], [address], 08/08/2024 13:43:56 08/09/19 25 08/08/2024 COMPL ETE BLOOD COUNT MCV 94 fL 80-100 normal Not Available [facility] [address] [place] [address], [address], 08/08/2024 13:43:56 08/09/19 25 08/08/2024 COMPL ETE BLOOD COUNT MCH 30 pg 26-35 normal Not Available [facility] [address] [place] [address], [address], 08/08/2024 13:43:56 08/09/19 25 08/08/2024 COMPL ETE BLOOD COUNT MCHC 32 g/dL 32-36 normal Not Available [facility] [address] [place] [address], [address], 08/08/2024 13:43:56 08/09/19 25 08/08/2024 COMPL ETE BLOOD COUNT RDW 18.2 % 11.0-1 5.0 high Not Available [facility] [address] [place] [address], [address], 08/08/2024 13:43:56 08/09/19 25 08/08/2024 COMPL ETE BLOOD COUNT MPV 7.4 fL 6.2-10 .5 normal Not Available [facility] [address] [place] [address], [address], 08/08/2024 13:43:56 08/09/19 25 08/08/2024 COMPL ETE BLOOD COUNT platelet count 123 10*3/ uL 150-40 0 low Not Available [facility] [address] [place] [address], [address], 08/08/2024 13:43:56 08/09/19 25 08/08/2024 COMPL ETE BLOOD COUNT neutrophil,a bsolute 4.7 10*3/ uL 1.6-8. 4 normal Not Available [facility] [address] [place] [address], [address], 08/08/2024 13:43:56 08/09/19 25 08/08/2024 COMPL ETE BLOOD COUNT lymphocyte,a bsolute 33.6 10*3/ uL 0.4-5. 1 high Not Available [facility] [address] [place] [address], [address], 08/08/2024 13:43:56 08/09/19 25 08/08/2024 COMPL ETE BLOOD COUNT monocyte,abs olute 0.8 10*3/ uL 0.0-1. 2 normal Not Available [facility] [address] [place] [address], [address], 08/08/2024 13:43:56 08/09/19 25 08/08/2024 COMPL ETE BLOOD COUNT eosinophil,a bsolute 0.0 10*3/ uL 0.0-0. 8 normal Not Available [facility] [address] [place] [address], [address], 08/08/2024 13:43:56 08/09/19 25 08/08/2024 COMPL ETE BLOOD COUNT basophil,abs olute 0.0 10*3/ uL 0.0-0. 3 normal Not Available [facility] [address] [place] [address], [address], 08/08/2024 13:43:56 08/09/19 25 08/08/2024 COMPL ETE BLOOD COUNT % neutrophils 12.0 % 42.0-7 8.0 low Not Available [facility] [address] [place] [address], [address], 08/08/2024 13:43:56 08/09/19 25 08/08/2024 COMPL ETE BLOOD COUNT % lymphocytes 86.0 % 11.0-4 7.0 high Not Available [facility] [address] [place] [address], [address], 08/08/2024 13:43:56 08/09/19 25 08/08/2024 COMPL ETE BLOOD COUNT % monocytes 2.0 % 0.0-11 .0 normal Not Available [facility] [address] [place] [address], [address], 08/08/2024 13:43:56 08/09/19 25 08/08/2024 COMPL ETE BLOOD COUNT % eosinophils 0.0 % 0.0-7. 0 normal Not Available [facility] [address] [place] [address], [address], 08/08/2024 13:43:56 08/09/19 25 08/08/2024 COMPL ETE BLOOD COUNT % basophils 0.0 % 0.0-3. 0 normal Not Available [facility] [address] [place] [address], [address], 08/08/2024 13:43:56 08/09/19 25 08/08/2024 COMPL ETE BLOOD COUNT nucleated red cells 0.2 % 0.0-0. 9 normal Not Available [facility] [address] [place] [address], [address], 08/08/2024 13:43:56 08/09/19 25 08/08/2024 COMPL ETE BLOOD COUNT nucleated RBCs, absolute 0.07 10*3/ uL not estab. normal Not Available [facility] [address] [place] [address], [address], 08/08/2024 13:43:56 08/09/19 25 08/08/2024 URIC ACID uric acid 5.5 mg/dL 2.4-5. 7 normal Refer ence range [facility] are [facility] and do not neces leesa slater [...] mstan my. Arthr itis Care and Resea [facility] Vol 64 No 10, 2011 Michelle puentes Colle ge of Rheum atolo gy ----- ----- ----- ----- ----- ----- ----- ----- ----- ----- ----- ---- Not Available [facility] [address] [place] [address], [address], 08/08/2024 13:40:10 08/09/19 25 08/08/2024 COMP. METAB OLIC PANEL glucose 123 mg/dL 74-100 high Not Available [facility] [address] [place] [address], [address], 08/08/2024 13:40:09 08/09/19 25 08/08/2024 COMP. METAB OLIC PANEL blood urea nitrogen 23 mg/dL 6-20 high Not Available [facility] [address] [place] [address], [address], 08/08/2024 13:40:09 08/09/19 25 08/08/2024 COMP. METAB OLIC PANEL creatinine 1.27 mg/dL 0.50-0 .95 high Not Available [facility] [address] [place] [address], [address], 08/08/2024 13:40:09 08/09/19 25 08/08/2024 COMP. METAB OLIC PANEL BUN/creatini ne ratio 18 (calc ) 10-20 normal Not Available [facility] [address] [place] [address], [address], 08/08/2024 13:40:09 08/09/19 25 08/08/2024 COMP. METAB OLIC PANEL sodium 135 mmol/ L 136-14 5 low Not Available [facility] [address] [place] [address], [address], 08/08/2024 13:40:09 08/09/19 25 08/08/2024 COMP. METAB OLIC PANEL potassium 4.5 mmol/ L 3.4-5. 0 normal Not Available [facility] [address] [place] [address], [address], 08/08/2024 13:40:09 08/09/19 25 08/08/2024 COMP. METAB OLIC PANEL chloride 100 mmol/ L 98-107 normal Not Available [facility] [address] [place] [address], [address], 08/08/2024 13:40:09 08/09/19 25 08/08/2024 COMP. METAB OLIC PANEL carbon dioxide 23 mmol/ L 22-31 normal Not Available [facility] [address] [place] [address], [address], 08/08/2024 13:40:09 08/09/19 25 08/08/2024 COMP. METAB OLIC PANEL anion gap 12 (calc ) 7-25 normal Not Available [facility] [address] [place] [address], [address], 08/08/2024 13:40:09 08/09/19 25 08/08/2024 COMP. METAB OLIC PANEL calcium 9.2 mg/dL 8.6-10 .2 normal Not Available [facility] [address] [place] [address], [address], 08/08/2024 13:40:08/09/19 25 08/08/2024 COMP. METAB OLIC PANEL total protein 7.0 g/dL 6.4-8. 3 normal Not Available [facility] [address] [place] [address], [address], 08/08/2024 13:40:09 08/09/19 25 08/08/2024 COMP. METAB OLIC PANEL albumin 4.3 g/dL 3.5-5. 2 normal Not Available [facility] [address] [place] [address], [address], 08/08/2024 13:40:09 08/09/19 25 08/08/2024 COMP. METAB OLIC PANEL globulin 2.7 1.5-4. 5 normal Not Available [facility] [address] [place] [address], [address], 08/08/2024 13:40:09 08/09/19 25 08/08/2024 COMP. METAB OLIC PANEL albumin/glob ulin ratio 1.6 (calc ) 1.1-2. 5 normal Not Available [facility] [address] [place] [address], [address], 08/08/2024 13:40:09 08/09/19 25 08/08/2024 COMP. METAB OLIC PANEL bilirubin, total 0.7 mg/dL 0.1-1. 2 normal Not Available [facility] [address] [place] [address], [address], 08/08/2024 13:40:09 08/09/19 25 08/08/2024 COMP. METAB OLIC PANEL alkaline phosphatase 82 U/L 30-121 normal Not Available [facility] [address] [place] [address], [address], 08/08/2024 13:40:09 08/09/19 25 08/08/2024 COMP. METAB OLIC PANEL AST 14 U/L 0-32 normal Not Available [facility] [address] [place] [address], [address], 08/08/2024 13:40:09 08/09/19 25 08/08/2024 COMP. METAB OLIC PANEL ALT 8 U/L 0-33 normal Not Available [facility] [address] [place] [address], [address], 08/08/2024 13:40:09 08/09/19 25 08/08/2024 COMP. METAB OLIC PANEL GFR 42 >= 60 abnormal NOT E New calcu latio n for GFR (CKD- EPI 2020) is formu lated witho ut race adjus tment facto rs at the recom menda tion of the [employer] [employer] at[facility] and Michelle puentes Socie ty of Nephr ology . This calcu latio n has not been valid ated in pregn ant women . For pedia tric patie nts refer to https ://heike [email or web address] [email or web address] rg/pr ofess ional s/KDO QI/gf r_cal culat orPed Not Available [facility] [address] [place], [address], 08/08/2024 13:40:09 11/08/19 25 11/07/2024 URIC ACID [...] mstan my. Arthr itis Care and Resea [facility] Vol 64 No 10, 2011 Michelle puentes Colle ge of Rheum atolo gy ----- ----- ----- ----- ----- ----- ----- ----- ----- ----- ----- ---- Not Available [facility] [address] [place], [address], 11/07/2024 14:30:28 11/08/19 25 11/07/2024 COMP. METAB OLIC PANEL glucose 141 mg/dL 74-100 high Not Available [facility] [address] [place] [address], [address], 11/07/2024 14:30:27 11/08/19 25 11/07/2024 COMP. METAB OLIC PANEL blood urea nitrogen 17 mg/dL 6-20 normal Not Available [facility] [address] [place] [address], [address], 11/07/2024 14:30:27 11/08/19 25 11/07/2024 COMP. METAB OLIC PANEL creatinine 1.54 mg/dL 0.50-0 .95 high Not Available [facility] [address] [place] [address], [address], 11/07/2024 14:30:27 11/08/19 25 11/07/2024 COMP. METAB OLIC PANEL BUN/creatini ne ratio 11 (calc ) 10-20 normal Not Available [facility] [address] [place] [address], [address], 11/07/2024 14:30:27 11/08/19 25 11/07/2024 COMP. METAB OLIC PANEL sodium 135 mmol/ L 136-14 5 low Not Available [facility] [address] [place] [address], [address], 11/07/2024 14:30:27 11/08/19 25 11/07/2024 COMP. METAB OLIC PANEL potassium 4.1 mmol/ L 3.4-5. 0 normal Not Available [facility] [address] [place] [address], [address], 11/07/2024 14:30:27 11/08/19 25 11/07/2024 COMP. METAB OLIC PANEL chloride 100 mmol/ L 98-107 normal Not Available [facility] [address] [place] [address], [address], 11/07/2024 14:30:27 11/08/19 25 11/07/2024 COMP. METAB OLIC PANEL carbon dioxide 21 mmol/ L 22-31 low Not Available [facility] [address] [place] [address], [address], 11/07/2024 14:30:27 11/08/19 25 11/07/2024 COMP. METAB OLIC PANEL anion gap 14 (calc ) 7-25 normal Not Available [facility] [address] [place] [address], [address], 11/07/2024 14:30:27 11/08/19 25 11/07/2024 COMP. METAB OLIC PANEL calcium 9.2 mg/dL 8.6-10 .2 normal Not Available [facility] [address] [place] [address], [address], 11/07/2024 14:30:27 11/08/19 25 11/07/2024 COMP. METAB OLIC PANEL total protein 6.5 g/dL 6.4-8. 3 normal Not Available [facility] [address] [place] [address], [address], 11/07/2024 14:30:27 11/08/19 25 11/07/2024 COMP. METAB OLIC PANEL albumin 4.2 g/dL 3.5-5. 2 normal Not Available [facility] [address] [place] [address], [address], 11/07/2024 14:30:27 11/08/19 25 11/07/2024 COMP. METAB OLIC PANEL globulin 2.3 1.5-4. 5 normal Not Available [facility] [address] [place] [address], [address], 11/07/2024 14:30:27 11/08/19 25 11/07/2024 COMP. METAB OLIC PANEL albumin/glob ulin ratio 1.8 (calc ) 1.1-2. 5 normal Not Available [facility] [address] [place] [address], [address], 11/07/2024 14:30:27 11/08/19 25 11/07/2024 COMP. METAB OLIC PANEL bilirubin, total 1.1 mg/dL 0.1-1. 2 normal Not Available [facility] [address] [place], [address], 11/07/2024 14:30:27 11/08/19 25 11/07/2024 COMP. METAB OLIC PANEL alkaline phosphatase 86 U/L 30-121 normal Not Available [facility] [address] [place], [address], 11/07/2024 14:30:27 11/08/19 25 11/07/2024 COMP. METAB OLIC PANEL AST 17 U/L 0-32 normal Not Available [facility] [address] [place] [address], [address], 11/07/2024 14:30:27 11/08/19 25 11/07/2024 COMP. METAB OLIC PANEL ALT 7 U/L 0-33 normal Not Available [facility] [address] [place] [address], [address], 11/07/2024 14:30:27 11/08/19 25 11/07/2024 COMP. METAB OLIC PANEL eGFR 34 >= 60 abnormal NOT E New calcu latio n for GFR (CKD- EPI 2020) is formu lated witho ut race adjus tment facto rs at the recom menda tion of the [facility] atcatherine and [employer] [employer] ty of Nephr ology . This calcu latio n has not been valid ated in pregn ant women . For pedia tric patie nts refer to https ://heike [email or web address] rg/deep adorno s/YARIO QI/gf r_cal culat orPed Not Available [facility] [address] [place], [address], 11/07/2024 14:30:27 11/08/19 25 11/07/2024 LDH LDH 188 U/L 135-23 3 normal Not Available [facility] [address] [place] [address], [address], 11/07/2024 14:10:09 11/08/19 25 11/07/2024 MANUA L DIFFE RENTI AL % band neutrophils 0.0 % 0.0-7. 0 normal Not Available [facility] [address] [place] [address], [address], 11/07/2024 13:45:05 11/08/19 25 11/07/2024 MANUA L DIFFE RENTI AL % atypical lymphocytes 0 % 0-1 normal Not Available [facility] [address] [place] [address], [address], 11/07/2024 13:45:05 11/08/19 25 11/07/2024 MANUA L DIFFE RENTI AL % metamyelocyt es 0 % 0-1 normal Not Available [facility] [address] [place] [address], [address], 11/07/2024 13:45:05 11/08/19 25 11/07/2024 MANUA L DIFFE RENTI AL % myelocytes 0 % 0-1 normal Not Available [facility] [address] [place] [address], [address], 11/07/2024 13:45:05 11/08/19 25 11/07/2024 MANUA L DIFFE RENTI AL % promyelocyte s 0 % 0 normal Not Available [facility] [address] [place] [address], [address], 11/07/2024 13:45:05 11/08/19 25 11/07/2024 MANUA L DIFFE RENTI AL % blast 0 % 0 normal Not Available [facility] [address] [place] [address], [address], 11/07/2024 13:45:05 11/08/19 25 11/07/2024 MANUA L DIFFE RENTI AL nucleated red cells 0 /100{ WBC} 0-1 normal Not Available [facility] [address] [place] [address], [address], 11/07/2024 13:45:05 11/08/19 25 11/07/2024 MANUA L DIFFE RENTI AL smudge cells 0 /100{ WBC} 0 normal Not Available [facility] [address] [place] [address], [address], 11/07/2024 13:45:05 11/08/19 25 11/07/2024 MANUA L DIFFE RENTI AL platelet morphology NORMAL normal Not Available [facility] [address] [place] [address], [address], 11/07/2024 13:45:05 11/08/19 25 11/07/2024 MANUA L DIFFE RENTI AL polychromasi a SLIGHT abnormal Not Available [facility] [address] [place] [address], [address], 11/07/2024 13:45:05 11/08/19 25 11/07/2024 MANUA L DIFFE RENTI AL ovalocytes SLIGHT abnormal Not Available [facility] [address] [place] [address], [address], 11/07/2024 13:45:05 11/08/19 25 11/07/2024 COMPL ETE BLOOD COUNT white blood cells 63.9 10*3/ uL 3.8-10 .8 high Not Available [facility] [address] [place] [address], [address], 11/07/2024 13:45:03 11/08/19 25 11/07/2024 COMPL ETE BLOOD COUNT red blood cells 3.58 10*6/ uL 3.80-5 .20 low Not Available [facility] [address] [place] [address], [address], 11/07/2024 13:45:03 11/08/19 25 11/07/2024 COMPL ETE BLOOD COUNT hemoglobin 10.7 g/dL 12.0-1 6.0 low Not Available [facility] [address] [place] [address], [address], 11/07/2024 13:45:03 11/08/19 25 11/07/2024 COMPL ETE BLOOD COUNT hematocrit 33.3 % 35.0-4 7.0 low Not Available [facility] [address] [place] [address], [address], 11/07/2024 13:45:03 11/08/19 25 11/07/2024 COMPL ETE BLOOD COUNT MCV 93 fL 80-100 normal Not Available [facility] [address] [place] [address], [address], 11/07/2024 13:45:03 11/08/19 25 11/07/2024 COMPL ETE BLOOD COUNT MCH 30 pg 26-35 normal Not Available [facility] [address] [place] [address], [address], 11/07/2024 13:45:03 11/08/19 25 11/07/2024 COMPL ETE BLOOD COUNT MCHC 32 g/dL 32-36 normal Not Available [facility] [address] [place] [address], [address], 11/07/2024 13:45:03 11/08/19 25 11/07/2024 COMPL ETE BLOOD COUNT RDW 18.0 % 11.0-1 5.0 high Not Available [facility] [address] [place] [address], [address], 11/07/2024 13:45:03 11/08/19 25 11/07/2024 COMPL ETE BLOOD COUNT MPV 7.5 fL 6.2-10 .5 normal Not Available [facility] [address] [place] [address], [address], 11/07/2024 13:45:03 11/08/19 25 11/07/2024 COMPL ETE BLOOD COUNT platelet count 124 10*3/ uL 150-40 0 low Not Available [facility] [address] [place] [address], [address], 11/07/2024 13:45:03 11/08/19 25 11/07/2024 COMPL ETE BLOOD COUNT neutrophil,a bsolute 3.2 10*3/ uL 1.6-8. 4 normal Not Available [facility] [address] [place] [address], [address], 11/07/2024 13:45:03 11/08/19 25 11/07/2024 COMPL ETE BLOOD COUNT lymphocyte,a bsolute 59.4 10*3/ uL 0.4-5. 1 high Not Available [facility] [address] [place] [address], [address], 11/07/2024 13:45:03 11/08/19 25 11/07/2024 COMPL ETE BLOOD COUNT monocyte,abs olute 1.3 10*3/ uL 0.0-1. 2 high Not Available [facility] [address] [place] [address], [address], 11/07/2024 13:45:03 11/08/19 25 11/07/2024 COMPL ETE BLOOD COUNT eosinophil,a bsolute 0.0 10*3/ uL 0.0-0. 8 normal Not Available [facility] [address] [place] [address], [address], 11/07/2024 13:45:03 11/08/19 25 11/07/2024 COMPL ETE BLOOD COUNT basophil,abs olute 0.0 10*3/ uL 0.0-0. 3 normal Not Available [facility] [address] [place] [address], [address], 11/07/2024 13:45:03 11/08/19 25 11/07/2024 COMPL ETE BLOOD COUNT % neutrophils 5.0 % 42.0-7 8.0 low Not Available [facility] [address] [place] [address], [address], 11/07/2024 13:45:03 11/08/19 25 11/07/2024 COMPL ETE BLOOD COUNT % lymphocytes 93.0 % 11.0-4 7.0 high Not Available [facility] [address] [place] [address], [address], 11/07/2024 13:45:03 11/08/19 25 11/07/2024 COMPL ETE BLOOD COUNT % monocytes 2.0 % 0.0-11 .0 normal Not Available [facility] [address] [place] [address], [address], 11/07/2024 13:45:03 11/08/19 25 11/07/2024 COMPL ETE BLOOD COUNT % eosinophils 0.0 % 0.0-7. 0 normal Not Available [facility] [address] [place] [address], [address], 11/07/2024 13:45:03 11/08/19 25 11/07/2024 COMPL ETE BLOOD COUNT % basophils 0.0 % 0.0-3. 0 normal Not Available [facility] [address] [place] [address], [address], 11/07/2024 13:45:03 11/08/19 25 11/07/2024 COMPL ETE BLOOD COUNT nucleated red cells 0.1 % 0.0-0. 9 normal Not Available [facility] [address] [place] [address], [address], 11/07/2024 13:45:03 11/08/19 25 11/07/2024 COMPL ETE BLOOD COUNT nucleated RBCs, absolute 0.06 10*3/ uL not estab. normal Not Available [facility] [address] [place] [address], [address], 11/07/2024 13:45:03 11/15/19 25 11/14/2024 PROTH ROMBI N TIME prothrombin time 26.9 secon ds 9.0-11 .0 high NOTE: New refer ence range . Not Available [facility] [address] [place], [address], 11/14/2024 10:51:00 11/15/19 25 11/14/2024 PROTH ROMBI [...] NICAL PROST HETIC VALVE S Not Available [facility] [address] [place], [address], 11/14/2024 10:51:00 12/13/19 25 12/12/2024 URIC ACID [...] mstan my. Arthr itis Care and Resea [facility] Vol 64 No 10, 2011 Michelle Agustin ge of Rheum atolo gy ----- ----- ----- ----- ----- ----- ----- ----- ----- ----- ----- ---- Not Available [facility] [address] [place], [address], 12/12/2024 11:10:15 12/13/19 25 12/12/2024 COMP. METAB OLIC PANEL glucose 127 mg/dL 74-100 high Not Available [facility] [address] [place] [address], [address], 12/12/2024 11:10:14 12/13/19 25 12/12/2024 COMP. METAB OLIC PANEL blood urea nitrogen 16 mg/dL 6-20 normal Not Available [facility] [address] [place] [address], [address], 12/12/2024 11:10:14 12/13/19 25 12/12/2024 COMP. METAB OLIC PANEL creatinine 1.30 mg/dL 0.50-0 .95 high Not Available [facility] [address] [place] [address], [address], 12/12/2024 11:10:14 12/13/19 25 12/12/2024 COMP. METAB OLIC PANEL BUN/creatini ne ratio 12 (calc ) 10-20 normal Not Available [facility] [address] [place] [address], [address], 12/12/2024 11:10:14 12/13/19 25 12/12/2024 COMP. METAB OLIC PANEL sodium 138 mmol/ L 136-14 5 normal Not Available [facility] [address] [place] [address], [address], 12/12/2024 11:10:14 12/13/19 25 12/12/2024 COMP. METAB OLIC PANEL potassium 4.3 mmol/ L 3.4-5. 0 normal Not Available [facility] [address] [place] [address], [address], 12/12/2024 11:10:14 12/13/19 25 12/12/2024 COMP. METAB OLIC PANEL chloride 105 mmol/ L 98-107 normal Not Available [facility] [address] [place] [address], [address], 12/12/2024 11:10:14 12/13/19 25 12/12/2024 COMP. METAB OLIC PANEL carbon dioxide 23 mmol/ L 22-31 normal Not Available [facility] [address] [place] [address], [address], 12/12/2024 11:10:14 12/13/19 25 12/12/2024 COMP. METAB OLIC PANEL anion gap 10 (calc ) 7-25 normal Not Available [facility] [address] [place] [address], [address], 12/12/2024 11:10:14 12/13/19 25 12/12/2024 COMP. METAB OLIC PANEL calcium 8.9 mg/dL 8.6-10 .2 normal Not Available [facility] [address] [place] [address], [address], 12/12/2024 11:10:14 12/13/19 25 12/12/2024 COMP. METAB OLIC PANEL total protein 6.1 g/dL 6.4-8. 3 low Not Available [facility] [address] [place] [address], [address], 12/12/2024 11:10:14 12/13/19 25 12/12/2024 COMP. METAB OLIC PANEL albumin 4.0 g/dL 3.5-5. 2 normal Not Available [facility] [address] [place] [address], [address], 12/12/2024 11:10:14 12/13/19 25 12/12/2024 COMP. METAB OLIC PANEL globulin 2.1 1.5-4. 5 normal Not Available [facility] [address] [place] [address], [address], 12/12/2024 11:10:14 12/13/19 25 12/12/2024 COMP. METAB OLIC PANEL albumin/glob ulin ratio 1.9 (calc ) 1.1-2. 5 normal Not Available [facility] [address] [place] [address], [address], 12/12/2024 11:10:14 12/13/19 25 12/12/2024 COMP. METAB OLIC PANEL bilirubin, total 0.5 mg/dL 0.1-1. 0 normal NOTE: New refer ence range . Not Available [facility] [address] [place] [address], [address], 12/12/2024 11:10:14 12/13/19 25 12/12/2024 COMP. METAB OLIC PANEL alkaline phosphatase 83 U/L 30-121 normal Not Available [facility] [address] [place] [address], [address], 12/12/2024 11:10:14 12/13/19 25 12/12/2024 COMP. METAB OLIC PANEL AST 18 U/L 0-32 normal Not Available [facility] [address] [place] [address], [address], 12/12/2024 11:10:14 12/13/19 25 12/12/2024 COMP. METAB OLIC PANEL ALT 13 U/L 0-33 normal Not Available [facility] [address] [place] [address], [address], 12/12/2024 11:10:14 12/13/19 25 12/12/2024 COMP. METAB OLIC PANEL eGFR 41 >= 60 abnormal NOT E New calcu latio n for GFR (CKD- EPI 2020) is formu lated witho ut race adjus tment facto rs at the recom menda tion of the Lnia Campoverde y Seth galindo and Michelle Caldera ty of Nephr ology . This calcu latio n has not been valid ated in pregn ant women . For pedia tric patie nts refer to https ://heike [email or web address] rg/pr ofess ional s/KDO QI/gf r_cal culat orPed Not Available [facility] [address] [place] [address], [address], 12/12/2024 11:10:14 12/13/19 25 12/12/2024 LDH LDH 157 U/L 135-23 3 normal Not Available [facility] [address] [place] [address], [address], 12/12/2024 11:09:58 12/13/19 25 12/12/2024 COMPL ETE BLOOD COUNT white blood cells 5.9 10*3/ uL 3.8-10 .8 normal Not Available [facility] [address] [place] [address], [address], 12/12/2024 10:44:46 12/13/19 25 12/12/2024 COMPL ETE BLOOD COUNT red blood cells 3.54 10*6/ uL 3.80-5 .20 low Not Available [facility] [address] [place] [address], [address], 12/12/2024 10:44:46 12/13/19 25 12/12/2024 COMPL ETE BLOOD COUNT hemoglobin 10.8 g/dL 12.0-1 6.0 low Not Available [facility] [address] [place] [address], [address], 12/12/2024 10:44:46 12/13/19 25 12/12/2024 COMPL ETE BLOOD COUNT hematocrit 32.1 % 35.0-4 7.0 low Not Available [facility] [address] [place] [address], [address], 12/12/2024 10:44:46 12/13/19 25 12/12/2024 COMPL ETE BLOOD COUNT MCV 91 fL 80-100 normal Not Available [facility] [address] [place] [address], [address], 12/12/2024 10:44:46 12/13/19 25 12/12/2024 COMPL ETE BLOOD COUNT MCH 31 pg 26-35 normal Not Available [facility] [address] [place] [address], [address], 12/12/2024 10:44:46 12/13/19 25 12/12/2024 COMPL ETE BLOOD COUNT MCHC 34 g/dL 32-36 normal Not Available [facility] [address] [place] [address], [address], 12/12/2024 10:44:46 12/13/19 25 12/12/2024 COMPL ETE BLOOD COUNT RDW 17.4 % 11.0-1 5.0 high Not Available [facility] [address] [place] [address], [address], 12/12/2024 10:44:46 12/13/19 25 12/12/2024 COMPL ETE BLOOD COUNT MPV 7.7 fL 6.2-10 .5 normal Not Available [facility] [address] [place] [address], [address], 12/12/2024 10:44:46 12/13/19 25 12/12/2024 COMPL ETE BLOOD COUNT platelet count 67 10*3/ uL 150-40 0 low Not Available [facility] [address] [place] [address], [address], 12/12/2024 10:44:46 12/13/19 25 12/12/2024 COMPL ETE BLOOD COUNT neutrophil,a bsolute 2.6 10*3/ uL 1.6-8. 4 normal Not Available [facility] [address] [place] [address], [address], 12/12/2024 10:44:46 12/13/19 25 12/12/2024 COMPL ETE BLOOD COUNT lymphocyte,a bsolute 2.8 10*3/ uL 0.4-5. 1 normal Not Available [facility] [address] [place] [address], [address], 12/12/2024 10:44:46 12/13/19 25 12/12/2024 COMPL ETE BLOOD COUNT monocyte,abs olute 0.4 10*3/ uL 0.0-1. 2 normal Not Available [facility] [address] [place] [address], [address], 12/12/2024 10:44:46 12/13/19 25 12/12/2024 COMPL ETE BLOOD COUNT eosinophil,a bsolute 0.1 10*3/ uL 0.0-0. 8 normal Not Available [facility] [address] [place] [address], [address], 12/12/2024 10:44:46 12/13/19 25 12/12/2024 COMPL ETE BLOOD COUNT basophil,abs olute 0.0 10*3/ uL 0.0-0. 3 normal Not Available [facility] [address] [place] [address], [address], 12/12/2024 10:44:46 12/13/19 25 12/12/2024 COMPL ETE BLOOD COUNT % neutrophils 44.5 % 42.0-7 8.0 normal Not Available [facility] [address] [place] [address], [address], 12/12/2024 10:44:46 12/13/19 25 12/12/2024 COMPL ETE BLOOD COUNT % lymphocytes 47.4 % 11.0-4 7.0 high Not Available [facility] [address] [place] [address], [address], 12/12/2024 10:44:46 12/13/19 25 12/12/2024 COMPL ETE BLOOD COUNT % monocytes 6.1 % 0.0-11 .0 normal Not Available [facility] [address] [place] [address], [address], 12/12/2024 10:44:46 12/13/19 25 12/12/2024 COMPL ETE BLOOD COUNT % eosinophils 1.6 % 0.0-7. 0 normal Not Available [facility] [address] [place] [address], [address], 12/12/2024 10:44:46 12/13/19 25 12/12/2024 COMPL ETE BLOOD COUNT % basophils 0.4 % 0.0-3. 0 normal Not Available [facility] [address] [place] [address], [address], 12/12/2024 10:44:46 12/13/19 25 12/12/2024 COMPL ETE BLOOD COUNT nucleated red cells 0.0 % 0.0-0. 9 normal Not Available [facility] [address] [place] [address], [address], 12/12/2024 10:44:46 12/13/19 25 12/12/2024 COMPL ETE BLOOD COUNT nucleated RBCs, absolute 0.00 10*3/ uL not estab. normal Not Available [facility] [address] [place] [address], [address], 12/12/2024 10:44:46 01/10/20 25 01/09/2025 HEPAT ITIS PANEL hepatitis A Ab, IgM NONREA CTIVE nonrea ctive normal Not Available [facility] [address] [place] [address], [address], 01/09/2025 13:19:11 01/10/20 25 01/09/2025 HEPAT ITIS PANEL hepatitis B surface Ag NONREA CTIVE nonrea ctive normal Not Available [facility] [address] [place] [address], [address], 01/09/2025 13:19:11 01/10/20 25 01/09/2025 HEPAT ITIS PANEL hepatitis B core Ab,IgM NONREA CTIVE nonrea ctive normal Not Available [facility] [address] [place] [address], [address], 01/09/2025 13:19:11 01/10/20 25 01/09/2025 HEPAT ITIS PANEL hcab, reflex viral RNA qt NONREA CTIVE nonrea ctive normal Antib odies to HCV were not detec daniel; does not exclu de the possi bilit y of expos ure to HCV. Not Available [facility] [address] [place] [address], [address], 01/09/2025 13:19:11 01/10/2001/09/2025 LDH LDH 157 U/L 135-23 3 normal Not Available [facility] [address] [place] [address], [address], 01/09/2025 12:04:06 01/10/20 25 01/09/2025 MANUA L DIFFE RENTI AL % band neutrophils 1.0 % 0.0-7. 0 normal Not Available [facility] [address] [place] [address], [address], 01/09/2025 11:55:18 01/10/20 25 01/09/2025 MANUA L DIFFE RENTI AL % atypical lymphocytes 0 % 0-1 normal Not Available [facility] [address] [place] [address], [address], 01/09/2025 11:55:18 01/10/20 25 01/09/2025 MANUA L DIFFE RENTI AL % metamyelocyt es 0 % 0-1 normal Not Available [facility] [address] [place] [address], [address], 01/09/2025 11:55:18 01/10/20 25 01/09/2025 MANUA L DIFFE RENTI AL % myelocytes 0 % 0-1 normal Not Available [facility] [address] [place] [address], [address], 01/09/2025 11:55:18 01/10/20 25 01/09/2025 MANUA L DIFFE RENTI AL % promyelocyte s 0 % 0 normal Not Available [facility] [address] [place] [address], [address], 01/09/2025 11:55:18 01/10/20 25 01/09/2025 MANUA L DIFFE RENTI AL % blast 0 % 0 normal Not Available [facility] [address] [place] [address], [address], 01/09/2025 11:55:18 01/10/20 25 01/09/2025 MANUA L DIFFE RENTI AL nucleated red cells 0 /100{ WBC} 0-1 normal Not Available [facility] [address] [place] [address], [address], 01/09/2025 11:55:18 01/10/20 25 01/09/2025 MANUA L DIFFE RENTI AL smudge cells 2 /100{ WBC} 0 abnormal Not Available [facility] [address] [place] [address], [address], 01/09/2025 11:55:18 01/10/20 25 01/09/2025 MANUA L DIFFE RENTI AL platelet morphology NORMAL normal Not Available [facility] [address] [place] [address], [address], 01/09/2025 11:55:18 01/10/20 25 01/09/2025 MANUA L DIFFE RENTI AL polychromasi a SLIGHT abnormal Not Available [facility] [address] [place] [address], [address], 01/09/2025 11:55:18 01/10/20 25 01/09/2025 MANUA L DIFFE RENTI AL ovalocytes SLIGHT abnormal Not Available [facility] [address] [place] [address], [address], 01/09/2025 11:55:18 01/10/20 25 01/09/2025 COMPL ETE BLOOD COUNT white blood cells 6.8 10*3/ uL 3.8-10 .8 normal Not Available [facility] [address] [place] [address], [address], 01/09/2025 11:55:16 01/10/20 25 01/09/2025 COMPL ETE BLOOD COUNT red blood cells 3.61 10*6/ uL 3.80-5 .20 low Not Available [facility] [address] [place] [address], [address], 01/09/2025 11:55:16 01/10/20 25 01/09/2025 COMPL ETE BLOOD COUNT hemoglobin 11.0 g/dL 12.0-1 6.0 low Not Available [facility] [address] [place] [address], [address], 01/09/2025 11:55:16 01/10/20 25 01/09/2025 COMPL ETE BLOOD COUNT hematocrit 33.1 % 35.0-4 7.0 low Not Available [facility] [address] [place] [address], [address], 01/09/2025 11:55:16 01/10/20 25 01/09/2025 COMPL ETE BLOOD COUNT MCV 92 fL 80-100 normal Not Available [facility] [address] [place] [address], [address], 01/09/2025 11:55:16 01/10/20 25 01/09/2025 COMPL ETE BLOOD COUNT MCH 31 pg 26-35 normal Not Available [facility] [address] [place] [address], [address], 01/09/2025 11:55:16 01/10/20 25 01/09/2025 COMPL ETE BLOOD COUNT MCHC 33 g/dL 32-36 normal Not Available [facility] [address] [place] [address], [address], 01/09/2025 11:55:16 01/10/20 25 01/09/2025 COMPL ETE BLOOD COUNT RDW 17.4 % 11.0-1 5.0 high Not Available [facility] [address] [place] [address], [address], 01/09/2025 11:55:16 01/10/20 25 01/09/2025 COMPL ETE BLOOD COUNT MPV 7.3 fL 6.2-10 .5 normal Not Available [facility] [address] [place] [address], [address], 01/09/2025 11:55:16 01/10/20 25 01/09/2025 COMPL ETE BLOOD COUNT platelet count 123 10*3/ uL 150-40 0 low Not Available [facility] [address] [place] [address], [address], 01/09/2025 11:55:16 01/10/20 25 01/09/2025 COMPL ETE BLOOD COUNT neutrophil,a bsolute 2.7 10*3/ uL 1.6-8. 4 normal Not Available [facility] [address] [place] [address], [address], 01/09/2025 11:55:16 01/10/20 25 01/09/2025 COMPL ETE BLOOD COUNT lymphocyte,a bsolute 3.5 10*3/ uL 0.4-5. 1 normal Not Available [facility] [address] [place] [address], [address], 01/09/2025 11:55:16 01/10/20 25 01/09/2025 COMPL ETE BLOOD COUNT monocyte,abs olute 0.3 10*3/ uL 0.0-1. 2 normal Not Available [facility] [address] [place] [address], [address], 01/09/2025 11:55:16 01/10/20 25 01/09/2025 COMPL ETE BLOOD COUNT eosinophil,a bsolute 0.2 10*3/ uL 0.0-0. 8 normal Not Available [facility] [address] [place] [address], [address], 01/09/2025 11:55:16 01/10/20 25 01/09/2025 COMPL ETE BLOOD COUNT basophil,abs olute 0.0 10*3/ uL 0.0-0. 3 normal Not Available [facility] [address] [place] [address], [address], 01/09/2025 11:55:16 01/10/20 25 01/09/2025 COMPL ETE BLOOD COUNT % neutrophils 39.0 % 42.0-7 8.0 low Not Available [facility] [address] [place] [address], [address], 01/09/2025 11:55:16 01/10/20 25 01/09/2025 COMPL ETE BLOOD COUNT % lymphocytes 52.0 % 11.0-4 7.0 high Not Available [facility] [address] [place] [address], [address], 01/09/2025 11:55:16 01/10/20 25 01/09/2025 COMPL ETE BLOOD COUNT % monocytes 5.0 % 0.0-11 .0 normal Not Available [facility] [address] [place] [address], [address], 01/09/2025 11:55:16 01/10/20 25 01/09/2025 COMPL ETE BLOOD COUNT % eosinophils 3.0 % 0.0-7. 0 normal Not Available [facility] [address] [place] [address], [address], 01/09/2025 11:55:16 01/10/20 25 01/09/2025 COMPL ETE BLOOD COUNT % basophils 0.0 % 0.0-3. 0 normal Not Available [facility] [address] [place] [address], [address], 01/09/2025 11:55:16 01/10/20 25 01/09/2025 COMPL ETE BLOOD COUNT nucleated red cells 0.2 % 0.0-0. 9 normal Not Available [facility] [address] [place] [address], [address], 01/09/2025 11:55:16 01/10/20 25 01/09/2025 COMPL ETE BLOOD COUNT nucleated RBCs, absolute 0.01 10*3/ uL not estab. normal Not Available [facility] [address] [place] [address], [address], 01/09/2025 11:55:16 01/10/20 25 01/09/2025 COMP. METAB OLIC PANEL glucose 128 mg/dL 74-100 high Not Available [facility] [address] [place] [address], [address], 01/09/2025 11:44:16 01/10/20 25 01/09/2025 COMP. METAB OLIC PANEL blood urea nitrogen 14 mg/dL 6-20 normal Not Available [facility] [address] [place] [address], [address], 01/09/2025 11:44:16 01/10/20 25 01/09/2025 COMP. METAB OLIC PANEL creatinine 1.41 mg/dL 0.50-0 .95 high Not Available [facility] [address] [place] [address], [address], 01/09/2025 11:44:16 01/10/20 25 01/09/2025 COMP. METAB OLIC PANEL BUN/creatini ne ratio 10 (calc ) 10-20 normal Not Available [facility] [address] [place] [address], [address], 01/09/2025 11:44:16 01/10/20 25 01/09/2025 COMP. METAB OLIC PANEL sodium 135 mmol/ L 136-14 5 low Not Available [facility] [address] [place] [address], [address], 01/09/2025 11:44:16 01/10/20 25 01/09/2025 COMP. METAB OLIC PANEL potassium 4.1 mmol/ L 3.4-5. 0 normal Not Available [facility] [address] [place] [address], [address], 01/09/2025 11:44:16 01/10/20 25 01/09/2025 COMP. METAB OLIC PANEL chloride 101 mmol/ L 98-107 normal Not Available [facility] [address] [place] [address], [address], 01/09/2025 11:44:16 01/10/20 25 01/09/2025 COMP. METAB OLIC PANEL carbon dioxide 22 mmol/ L 22-31 normal Not Available [facility] [address] [place] [address], [address], 01/09/2025 11:44:16 01/10/20 25 01/09/2025 COMP. METAB OLIC PANEL anion gap 12 (calc ) 7-25 normal Not Available [facility] [address] [place] [address], [address], 01/09/2025 11:44:16 01/10/20 25 01/09/2025 COMP. METAB OLIC PANEL calcium 9.0 mg/dL 8.6-10 .2 normal Not Available [facility] [address] [place] [address], [address], 01/09/2025 11:44:16 01/10/20 25 01/09/2025 COMP. METAB OLIC PANEL total protein 6.1 g/dL 6.4-8. 3 low Not Available [facility] [address] [place] [address], [address], 01/09/2025 11:44:16 01/10/20 25 01/09/2025 COMP. METAB OLIC PANEL albumin 4.0 g/dL 3.5-5. 2 normal Not Available [facility] [address] [place] [address], [address], 01/09/2025 11:44:16 01/10/20 25 01/09/2025 COMP. METAB OLIC PANEL globulin 2.1 1.5-4. 5 normal Not Available [facility] [address] [place] [address], [address], 01/09/2025 11:44:16 01/10/20 25 01/09/2025 COMP. METAB OLIC PANEL albumin/glob ulin ratio 1.9 (calc ) 1.1-2. 5 normal Not Available [facility] [address] [place], [address], 01/09/2025 11:44:16 01/10/20 25 01/09/2025 COMP. METAB OLIC PANEL bilirubin, total 0.6 mg/dL 0.1-1. 0 normal NOTE: New refer ence range . Not Available [facility] [address] [place] [address], [address], 01/09/2025 11:44:16 01/10/20 25 01/09/2025 COMP. METAB OLIC PANEL alkaline phosphatase 78 U/L 30-121 normal Not Available [facility] [address] [place] [address], [address], 01/09/2025 11:44:16 01/10/20 25 01/09/2025 COMP. METAB OLIC PANEL AST 19 U/L 0-32 normal Not Available [facility] [address] [place] [address], [address], 01/09/2025 11:44:16 01/10/20 25 01/09/2025 COMP. METAB OLIC PANEL ALT 13 U/L 0-33 normal Not Available [facility] [address] [place] [address], [address], 01/09/2025 11:44:16 01/10/20 25 01/09/2025 COMP. METAB OLIC PANEL eGFR 37 >= 60 abnormal NOT E New calcu latio n for GFR (CKD- EPI 2020) is formu lated witho ut race adjus tment facto rs at the recom menda tion of the Lina Campoverde y Seth atElizabet Caldera ty of Nephr ology . This calcu latio n has not been valid ated in pregn ant women . For pedia dina sheparde nts refer to https ://ww w.kid jake.o rg/pr ofess ional s/KDO QI/gf r_cal culat orPed Not Available [facility] [address] [place] [address], [address], 01/09/2025 11:44:16 01/10/20 25 01/09/2025 PROTH ROMBI N TIME prothrombin time 18.2 secon ds 9.0-11 .0 high Not Available [facility] [address] [place] [address], [address], 01/09/2025 11:44:13 01/10/20 25 01/09/2025 PROTH ROMBI [...] NICAL PROST HETIC VALVE S Not Available [facility] [address] [place] [address], [address], 01/09/2025 11:44:13 02/07/20 25 02/06/2025 LDH LDH 174 U/L 135-23 3 normal Not Available [facility] [address] [place] [address], [address], 02/06/2025 11:22:08 02/07/20 25 02/06/2025 COMP. METAB OLIC PANEL glucose 111 mg/dL 74-100 high Not Available [facility] [address] [place] [address], [address], 02/06/2025 11:09:19 02/07/20 25 02/06/2025 COMP. METAB OLIC PANEL blood urea nitrogen 20 mg/dL 6-20 normal Not Available [facility] [address] [place] [address], [address], 02/06/2025 11:09:19 02/07/20 25 02/06/2025 COMP. METAB OLIC PANEL creatinine 1.50 mg/dL 0.50-0 .95 high Not Available [facility] [address] [place] [address], [address], 02/06/2025 11:09:19 02/07/20 25 02/06/2025 COMP. METAB OLIC PANEL BUN/creatini ne ratio 13 (calc ) 10-20 normal Not Available [facility] [address] [place] [address], [address], 02/06/2025 11:09:19 02/07/20 25 02/06/2025 COMP. METAB OLIC PANEL sodium 136 mmol/ L 136-14 5 normal Not Available [facility] [address] [place] [address], [address], 02/06/2025 11:09:19 02/07/20 25 02/06/2025 COMP. METAB OLIC PANEL potassium 4.3 mmol/ L 3.4-5. 0 normal Not Available [facility] [address] [place] [address], [address], 02/06/2025 11:09:19 02/07/20 25 02/06/2025 COMP. METAB OLIC PANEL chloride 102 mmol/ L 98-107 normal Not Available [facility] [address] [place] [address], [address], 02/06/2025 11:09:19 02/07/20 25 02/06/2025 COMP. METAB OLIC PANEL carbon dioxide 23 mmol/ L 22-31 normal Not Available [facility] [address] [place] [address], [address], 02/06/2025 11:09:19 02/07/20 25 02/06/2025 COMP. METAB OLIC PANEL anion gap 11 (calc ) 7-25 normal Not Available [facility] [address] [place] [address], [address], 02/06/2025 11:09:19 02/07/20 25 02/06/2025 COMP. METAB OLIC PANEL calcium 9.2 mg/dL 8.6-10 .2 normal Not Available [facility] [address] [place] [address], [address], 02/06/2025 11:09:19 02/07/20 25 02/06/2025 COMP. METAB OLIC PANEL total protein 6.6 g/dL 6.4-8. 3 normal Not Available [facility] [address] [place] [address], [address], 02/06/2025 11:09:19 02/07/20 25 02/06/2025 COMP. METAB OLIC PANEL albumin 4.3 g/dL 3.5-5. 2 normal Not Available [facility] [address] [place] [address], [address], 02/06/2025 11:09:19 02/07/20 25 02/06/2025 COMP. METAB OLIC PANEL globulin 2.3 1.5-4. 5 normal Not Available [facility] [address] [place] [address], [address], 02/06/2025 11:09:19 02/07/20 25 02/06/2025 COMP. METAB OLIC PANEL albumin/glob ulin ratio 1.9 (calc ) 1.1-2. 5 normal Not Available [facility] [address] [place] [address], [address], 02/06/2025 11:09:19 02/07/20 25 02/06/2025 COMP. METAB OLIC PANEL bilirubin, total 0.5 mg/dL 0.1-1. 0 normal NOTE: New refer ence range . Not Available [facility] [address] [place] [address], [address], 02/06/2025 11:09:19 02/07/20 25 02/06/2025 COMP. METAB OLIC PANEL alkaline phosphatase 81 U/L 30-121 normal Not Available [facility] [address] [place] [address], [address], 02/06/2025 11:09:19 02/07/20 25 02/06/2025 COMP. METAB OLIC PANEL AST 18 U/L 0-32 normal Not Available [facility] [address] [place] [address], [address], 02/06/2025 11:09:19 02/07/20 25 02/06/2025 COMP. METAB OLIC PANEL ALT 13 U/L 0-33 normal Not Available [facility] [address] [place] [address], [address], 02/06/2025 11:09:19 02/07/2002/06/2025 COMP. METAB OLIC PANEL eGFR 35 >= 60 abnormal NOT E New calcu latio n for GFR (CKD- EPI 2020) is formu lated witho ut race adjus tment facto rs at the recom menda tion of the Lina galindo and Michelle Goetze ty of Nephr ology . This calcu latio n has not been valid ated in pregn ant women . For pedia tric patie nts refer to https ://[email or web address] rg/pr lia adonro s/KDO QI/gf r_cal culat orPed Not Available [facility] [address] [place] [address], [address], 02/06/2025 11:09:19 02/07/20 25 02/06/2025 COMPL ETE BLOOD COUNT white blood cells 6.1 10*3/ uL 3.8-10 .8 normal Not Available [facility] [address] [place], [address], 02/06/2025 10:48:52 02/07/20 25 02/06/2025 COMPL ETE BLOOD COUNT red blood cells 3.71 10*6/ uL 3.80-5 .20 low Not Available [facility] [address] [place] [address], [address], 02/06/2025 10:48:52 02/07/20 25 02/06/2025 COMPL ETE BLOOD COUNT hemoglobin 11.6 g/dL 12.0-1 6.0 low Not Available [facility] [address] [place] [address], [address], 02/06/2025 10:48:52 02/07/20 25 02/06/2025 COMPL ETE BLOOD COUNT hematocrit 34.4 % 35.0-4 7.0 low Not Available [facility] [address] [place] [address], [address], 02/06/2025 10:48:52 02/07/20 25 02/06/2025 COMPL ETE BLOOD COUNT MCV 93 fL 80-100 normal Not Available [facility] [address] [place] [address], [address], 02/06/2025 10:48:52 02/07/20 25 02/06/2025 COMPL ETE BLOOD COUNT MCH 31 pg 26-35 normal Not Available [facility] [address] [place] [address], [address], 02/06/2025 10:48:52 02/07/20 25 02/06/2025 COMPL ETE BLOOD COUNT MCHC 34 g/dL 32-36 normal Not Available [facility] [address] [place] [address], [address], 02/06/2025 10:48:52 02/07/20 25 02/06/2025 COMPL ETE BLOOD COUNT RDW 17.1 % 11.0-1 5.0 high Not Available [facility] [address] [place] [address], [address], 02/06/2025 10:48:52 02/07/20 25 02/06/2025 COMPL ETE BLOOD COUNT MPV 7.4 fL 6.2-10 .5 normal Not Available [facility] [address] [place] [address], [address], 02/06/2025 10:48:52 02/07/20 25 02/06/2025 COMPL ETE BLOOD COUNT platelet count 136 10*3/ uL 150-40 0 low Not Available [facility] [address] [place] [address], [address], 02/06/2025 10:48:52 02/07/20 25 02/06/2025 COMPL ETE BLOOD COUNT neutrophil,a bsolute 2.8 10*3/ uL 1.6-8. 4 normal Not Available [facility] [address] [place] [address], [address], 02/06/2025 10:48:52 02/07/20 25 02/06/2025 COMPL ETE BLOOD COUNT lymphocyte,a bsolute 2.4 10*3/ uL 0.4-5. 1 normal Not Available [facility] [address] [place] [address], [address], 02/06/2025 10:48:52 02/07/20 25 02/06/2025 COMPL ETE BLOOD COUNT monocyte,abs olute 0.6 10*3/ uL 0.0-1. 2 normal Not Available [facility] [address] [place] [address], [address], 02/06/2025 10:48:52 02/07/20 25 02/06/2025 COMPL ETE BLOOD COUNT eosinophil,a bsolute 0.2 10*3/ uL 0.0-0. 8 normal Not Available [facility] [address] [place] [address], [address], 02/06/2025 10:48:52 02/07/20 25 02/06/2025 COMPL ETE BLOOD COUNT basophil,abs olute 0.1 10*3/ uL 0.0-0. 3 normal Not Available [facility] [address] [place] [address], [address], 02/06/2025 10:48:52 02/07/20 25 02/06/2025 COMPL ETE BLOOD COUNT % neutrophils 46.4 % 42.0-7 8.0 normal Not Available [facility] [address] [place] [address], [address], 02/06/2025 10:48:52 02/07/20 25 02/06/2025 COMPL ETE BLOOD COUNT % lymphocytes 39.1 % 11.0-4 7.0 normal Not Available [facility] [address] [place] [address], [address], 02/06/2025 10:48:52 02/07/20 25 02/06/2025 COMPL ETE BLOOD COUNT % monocytes 10.3 % 0.0-11 .0 normal Not Available [facility] [address] [place] [address], [address], 02/06/2025 10:48:52 02/07/20 25 02/06/2025 COMPL ETE BLOOD COUNT % eosinophils 3.3 % 0.0-7. 0 normal Not Available [facility] [address] [place] [address], [address], 02/06/2025 10:48:52 02/07/20 25 02/06/2025 COMPL ETE BLOOD COUNT % basophils 0.9 % 0.0-3. 0 normal Not Available [facility] [address] [place] [address], [address], 02/06/2025 10:48:52 02/07/20 25 02/06/2025 COMPL ETE BLOOD COUNT nucleated red cells 0.1 % 0.0-0. 9 normal Not Available [facility] [address] [place] [address], [address], 02/06/2025 10:48:52 02/07/20 25 02/06/2025 COMPL ETE BLOOD COUNT nucleated RBCs, absolute 0.01 10*3/ uL not estab. normal Not Available [facility] [address] [place] [address], [address], 02/06/2025 10:48:52 03/06/20 25 03/06/2025 LDH LDH 170 U/L 135-23 3 normal Not Available [facility] [address] [place] [address], [address], 03/06/2025 12:02:08 03/06/20 25 03/06/2025 URIC ACID uric acid 5.1 mg/dL 2.4-6. 8 normal Refer ence range s are based on [facility] norms and do not neces leesa slater [...] mstan my. Arthr itis Care and Resea [facility] Vol 64 No 10, 2011 Michelle can Colle ge of Rheum atolo gy ----- ----- ----- ----- ----- ----- ----- ----- ----- ----- ----- ---- Not Available [facility] [address] [place] [address], [address], 03/06/2025 11:48:12 03/06/20 25 03/06/2025 COMP. METAB OLIC PANEL glucose 111 mg/dL 74-100 high Not Available [facility] [address] [place] [address], [address], 03/06/2025 11:48:11 03/06/20 25 03/06/2025 COMP. METAB OLIC PANEL blood urea nitrogen 14 mg/dL 6-20 normal Not Available [facility] [address] [place], [address], 03/06/2025 11:48:11 03/06/20 25 03/06/2025 COMP. METAB OLIC PANEL creatinine 1.40 mg/dL 0.50-0 .95 high Not Available [facility] [address] [place] [address], [address], 03/06/2025 11:48:11 03/06/20 25 03/06/2025 COMP. METAB OLIC PANEL BUN/creatini ne ratio 10 (calc ) 10-20 normal Not Available [facility] [address] [place] [address], [address], 03/06/2025 11:48:11 03/06/20 25 03/06/2025 COMP. METAB OLIC PANEL sodium 136 mmol/ L 136-14 5 normal Not Available [facility] [address] [place] [address], [address], 03/06/2025 11:48:11 03/06/20 25 03/06/2025 COMP. METAB OLIC PANEL potassium 4.6 mmol/ L 3.4-5. 0 normal Not Available [facility] [address] [place] [address], [address], 03/06/2025 11:48:11 03/06/20 25 03/06/2025 COMP. METAB OLIC PANEL chloride 102 mmol/ L 98-107 normal Not Available [facility] [address] [place] [address], [address], 03/06/2025 11:48:11 03/06/20 25 03/06/2025 COMP. METAB OLIC PANEL carbon dioxide 23 mmol/ L 22-31 normal Not Available [facility] [address] [place] [address], [address], 03/06/2025 11:48:11 03/06/20 25 03/06/2025 COMP. METAB OLIC PANEL anion gap 11 (calc ) 7-25 normal Not Available [facility] [address] [place] [address], [address], 03/06/2025 11:48:11 03/06/20 25 03/06/2025 COMP. METAB OLIC PANEL calcium 9.2 mg/dL 8.6-10 .2 normal Not Available [facility] [address] [place] [address], [address], 03/06/2025 11:48:11 03/06/20 25 03/06/2025 COMP. METAB OLIC PANEL total protein 6.3 g/dL 6.4-8. 3 low Not Available [facility] [address] [place] [address], [address], 03/06/2025 11:48:11 03/06/20 25 03/06/2025 COMP. METAB OLIC PANEL albumin 4.1 g/dL 3.5-5. 2 normal Not Available [facility] [address] [place] [address], [address], 03/06/2025 11:48:11 03/06/20 25 03/06/2025 COMP. METAB OLIC PANEL globulin 2.2 1.5-4. 5 normal Not Available [facility] [address] [place] [address], [address], 03/06/2025 11:48:11 03/06/20 25 03/06/2025 COMP. METAB OLIC PANEL albumin/glob ulin ratio 1.9 (calc ) 1.1-2. 5 normal Not Available [facility] [address] [place] [address], [address], 03/06/2025 11:48:11 03/06/20 25 03/06/2025 COMP. METAB OLIC PANEL bilirubin, total 0.4 mg/dL 0.1-1. 0 normal NOTE: New refer ence range . Not Available [facility] [address] [place] [address], [address], 03/06/2025 11:48:11 03/06/20 25 03/06/2025 COMP. METAB OLIC PANEL alkaline phosphatase 69 U/L 30-121 normal Not Available [facility] [address] [place], [address], 03/06/2025 11:48:11 03/06/20 25 03/06/2025 COMP. METAB OLIC PANEL AST 19 U/L 0-32 normal Not Available [facility] [address] [place], [address], 03/06/2025 11:48:11 03/06/20 25 03/06/2025 COMP. METAB OLIC PANEL ALT 14 U/L 0-33 normal Not Available [facility] [address] [place], [address], 03/06/2025 11:48:11 03/06/20 25 03/06/2025 COMP. METAB OLIC PANEL eGFR 38 >= 60 abnormal NOT E New [...] dina patie nts refer to https ://[email or web address] rg/pr lia adorno s/KDO QI/gf r_cal culat orPed Not Available [facility] [address] [place], [address], 03/06/2025 11:48:11 03/06/20 25 03/06/2025 COMPL ETE BLOOD COUNT white blood cells 5.1 10*3/ uL 3.8-10 .8 normal Not Available [facility] [address] [place], [address], 03/06/2025 11:36:29 03/06/20 25 03/06/2025 COMPL ETE BLOOD COUNT red blood cells 3.56 10*6/ uL 3.80-5 .20 low Not Available [facility] [address] [place] [address], [address], 03/06/2025 11:36:29 03/06/20 25 03/06/2025 COMPL ETE BLOOD COUNT hemoglobin 11.4 g/dL 12.0-1 6.0 low Not Available [facility] [address] [place] [address], [address], 03/06/2025 11:36:29 03/06/20 25 03/06/2025 COMPL ETE BLOOD COUNT hematocrit 33.7 % 35.0-4 7.0 low Not Available [facility] [address] [place] [address], [address], 03/06/2025 11:36:29 03/06/20 25 03/06/2025 COMPL ETE BLOOD COUNT MCV 95 fL 80-100 normal Not Available [facility] [address] [place] [address], [address], 03/06/2025 11:36:29 03/06/20 25 03/06/2025 COMPL ETE BLOOD COUNT MCH 32 pg 26-35 normal Not Available [facility] [address] [place] [address], [address], 03/06/2025 11:36:29 03/06/20 25 03/06/2025 COMPL ETE BLOOD COUNT MCHC 34 g/dL 32-36 normal Not Available [facility] [address] [place] [address], [address], 03/06/2025 11:36:29 03/06/20 25 03/06/2025 COMPL ETE BLOOD COUNT RDW 16.3 % 11.0-1 5.0 high Not Available [facility] [address] [place] [address], [address], 03/06/2025 11:36:29 03/06/20 25 03/06/2025 COMPL ETE BLOOD COUNT MPV 7.8 fL 6.2-10 .5 normal Not Available [facility] [address] [place] [address], [address], 03/06/2025 11:36:29 03/06/20 25 03/06/2025 COMPL ETE BLOOD COUNT platelet count 120 10*3/ uL 150-40 0 low Not Available [facility] [address] [place] [address], [address], 03/06/2025 11:36:29 03/06/20 25 03/06/2025 COMPL ETE BLOOD COUNT neutrophil,a bsolute 2.5 10*3/ uL 1.6-8. 4 normal Not Available [facility] [address] [place] [address], [address], 03/06/2025 11:36:29 03/06/20 25 03/06/2025 COMPL ETE BLOOD COUNT lymphocyte,a bsolute 1.9 10*3/ uL 0.4-5. 1 normal Not Available [facility] [address] [place] [address], [address], 03/06/2025 11:36:29 03/06/20 25 03/06/2025 COMPL ETE BLOOD COUNT monocyte,abs olute 0.5 10*3/ uL 0.0-1. 2 normal Not Available [facility] [address] [place] [address], [address], 03/06/2025 11:36:29 03/06/20 25 03/06/2025 COMPL ETE BLOOD COUNT eosinophil,a bsolute 0.2 10*3/ uL 0.0-0. 8 normal Not Available [facility] [address] [place] [address], [address], 03/06/2025 11:36:29 03/06/20 25 03/06/2025 COMPL ETE BLOOD COUNT basophil,abs olute 0.1 10*3/ uL 0.0-0. 3 normal Not Available [facility] [address] [place] [address], [address], 03/06/2025 11:36:29 03/06/20 25 03/06/2025 COMPL ETE BLOOD COUNT % neutrophils 48.7 % 42.0-7 8.0 normal Not Available [facility] [address] [place] [address], [address], 03/06/2025 11:36:29 03/06/20 25 03/06/2025 COMPL ETE BLOOD COUNT % lymphocytes 37.0 % 11.0-4 7.0 normal Not Available [facility] [address] [place] [address], [address], 03/06/2025 11:36:29 03/06/20 25 03/06/2025 COMPL ETE BLOOD COUNT % monocytes 9.9 % 0.0-11 .0 normal Not Available [facility] [address] [place] [address], [address], 03/06/2025 11:36:29 03/06/20 25 03/06/2025 COMPL ETE BLOOD COUNT % eosinophils 3.4 % 0.0-7. 0 normal Not Available [facility] [address] [place] [address], [address], 03/06/2025 11:36:29 03/06/20 25 03/06/2025 COMPL ETE BLOOD COUNT % basophils 1.0 % 0.0-3. 0 normal Not Available [facility] [address] [place] [address], [address], 03/06/2025 11:36:29 03/06/20 25 03/06/2025 COMPL ETE BLOOD COUNT nucleated red cells 0.3 % 0.0-0. 9 normal Not Available [facility] [address] [place] [address], [address], 03/06/2025 11:36:29 03/06/20 25 03/06/2025 COMPL ETE BLOOD COUNT nucleated RBCs, absolute 0.02 10*3/ uL not estab. normal Not Available [facility] [address] [place], [address], 03/06/2025 11:36:29 04/05/20 25 04/05/2025 LDH LDH 182 U/L 135-23 3 normal Not Available [facility] [address] [place] [address], [address], 04/05/2025 08:53:14 04/05/20 25 04/05/2025 URIC ACID uric acid 6.2 mg/dL 2.4-6. 8 normal Refer ence range s are based on [facility] norms and do not neces leesa slater [...] mstan my. Arthr itis Care and Resea [facility] Vol 64 No 10, 2011 Michelle can Colle ge of Rheum atolo gy ----- ----- ----- ----- ----- ----- ----- ----- ----- ----- ----- ---- Not Available [facility] [address] [place] [address], [address], 04/05/2025 08:41:31 04/05/20 25 04/05/2025 COMP. METAB OLIC PANEL glucose 125 mg/dL 74-100 high Not Available [facility] [address] [place] [address], [address], 04/05/2025 08:41:29 04/05/20 25 04/05/2025 COMP. METAB OLIC PANEL blood urea nitrogen 17 mg/dL 6-20 normal Not Available [facility] [address] [place] [address], [address], 04/05/2025 08:41:29 04/05/20 25 04/05/2025 COMP. METAB OLIC PANEL creatinine 1.44 mg/dL 0.50-0 .95 high Not Available [facility] [address] [place] [address], [address], 04/05/2025 08:41:29 04/05/20 25 04/05/2025 COMP. METAB OLIC PANEL BUN/creatini ne ratio 12 (calc ) 10-20 normal Not Available [facility] [address] [place] [address], [address], 04/05/2025 08:41:29 04/05/20 25 04/05/2025 COMP. METAB OLIC PANEL sodium 137 mmol/ L 136-14 5 normal Not Available [facility] [address] [place] [address], [address], 04/05/2025 08:41:29 04/05/20 25 04/05/2025 COMP. METAB OLIC PANEL potassium 4.0 mmol/ L 3.4-5. 0 normal Not Available [facility] [address] [place] [address], [address], 04/05/2025 08:41:29 04/05/20 25 04/05/2025 COMP. METAB OLIC PANEL chloride 102 mmol/ L 98-107 normal Not Available [facility] [address] [place] [address], [address], 04/05/2025 08:41:29 04/05/20 25 04/05/2025 COMP. METAB OLIC PANEL carbon dioxide 23 mmol/ L 22-31 normal Not Available [facility] [address] [place] [address], [address], 04/05/2025 08:41:29 04/05/20 25 04/05/2025 COMP. METAB OLIC PANEL anion gap 12 (calc ) 7-25 normal Not Available [facility] [address] [place] [address], [address], 04/05/2025 08:41:29 04/05/20 25 04/05/2025 COMP. METAB OLIC PANEL calcium 9.0 mg/dL 8.6-10 .2 normal Not Available [facility] [address] [place] [address], [address], 04/05/2025 08:41:29 04/05/20 25 04/05/2025 COMP. METAB OLIC PANEL total protein 6.4 g/dL 6.4-8. 3 normal Not Available [facility] [address] [place] [address], [address], 04/05/2025 08:41:29 04/05/20 25 04/05/2025 COMP. METAB OLIC PANEL albumin 4.0 g/dL 3.5-5. 2 normal Not Available [facility] [address] [place] [address], [address], 04/05/2025 08:41:29 04/05/20 25 04/05/2025 COMP. METAB OLIC PANEL globulin 2.4 1.5-4. 5 normal Not Available [facility] [address] [place] [address], [address], 04/05/2025 08:41:29 04/05/20 25 04/05/2025 COMP. METAB OLIC PANEL albumin/glob ulin ratio 1.7 (calc ) 1.1-2. 5 normal Not Available [facility] [address] [place] [address], [address], 04/05/2025 08:41:29 04/05/20 25 04/05/2025 COMP. METAB OLIC PANEL bilirubin, total 0.7 mg/dL 0.1-1. 0 normal NOTE: New refer ence range . Not Available [facility] [address] [place] [address], [address], 04/05/2025 08:41:29 04/05/20 25 04/05/2025 COMP. METAB OLIC PANEL alkaline phosphatase 72 U/L 30-121 normal Not Available [facility] [address] [place], [address], 04/05/2025 08:41:29 04/05/20 25 04/05/2025 COMP. METAB OLIC PANEL AST 18 U/L 0-32 normal Not Available [facility] [address] [place], [address], 04/05/2025 08:41:29 04/05/20 25 04/05/2025 COMP. METAB OLIC PANEL ALT 12 U/L 0-33 normal Not Available [facility] [address] [place], [address], 04/05/2025 08:41:29 04/05/20 25 04/05/2025 COMP. METAB OLIC PANEL eGFR 36 >= 60 abnormal NOT E New calcu latio n for GFR (CKD- EPI 2020) is formu lated witho ut race adjus tment facto rs at the [facility] menda tion of the [employer] at[employer] and Ameri deloris Goetze ty of Nephr ology . This calcu latio n has not been valid ated in pregn ant women . For pedia dina patie nts refer to https ://heike [email or web address] rg/pr lia adorno s/KDO QI/gf r_cal culat orPed Not Available [facility] [address] [place], [address], 04/05/2025 08:41:29 04/05/20 25 04/05/2025 COMPL ETE BLOOD COUNT white blood cells 5.5 10*3/ uL 3.8-10 .8 normal Not Available [facility] [address] [place], [address], 04/05/2025 08:28:45 04/05/20 25 04/05/2025 COMPL ETE BLOOD COUNT red blood cells 3.44 10*6/ uL 3.80-5 .20 low Not Available [facility] [address] [place] [address], [address], 04/05/2025 08:28:45 04/05/20 25 04/05/2025 COMPL ETE BLOOD COUNT hemoglobin 11.2 g/dL 12.0-1 6.0 low Not Available [facility] [address] [place] [address], [address], 04/05/2025 08:28:45 04/05/20 25 04/05/2025 COMPL ETE BLOOD COUNT hematocrit 33.2 % 35.0-4 7.0 low Not Available [facility] [address] [place] [address], [address], 04/05/2025 08:28:45 04/05/20 25 04/05/2025 COMPL ETE BLOOD COUNT MCV 97 fL 80-100 normal Not Available [facility] [address] [place] [address], [address], 04/05/2025 08:28:45 04/05/20 25 04/05/2025 COMPL ETE BLOOD COUNT MCH 33 pg 26-35 normal Not Available [facility] [address] [place] [address], [address], 04/05/2025 08:28:45 04/05/20 25 04/05/2025 COMPL ETE BLOOD COUNT MCHC 34 g/dL 32-36 normal Not Available [facility] [address] [place] [address], [address], 04/05/2025 08:28:45 04/05/20 25 04/05/2025 COMPL ETE BLOOD COUNT RDW 15.9 % 11.0-1 5.0 high Not Available [facility] [address] [place] [address], [address], 04/05/2025 08:28:45 04/05/20 25 04/05/2025 COMPL ETE BLOOD COUNT MPV 8.1 fL 6.2-10 .5 normal Not Available [facility] [address] [place] [address], [address], 04/05/2025 08:28:45 04/05/20 25 04/05/2025 COMPL ETE BLOOD COUNT platelet count 127 10*3/ uL 150-40 0 low Not Available [facility] [address] [place] [address], [address], 04/05/2025 08:28:45 04/05/20 25 04/05/2025 COMPL ETE BLOOD COUNT neutrophil,a bsolute 3.5 10*3/ uL 1.6-8. 4 normal Not Available [facility] [address] [place] [address], [address], 04/05/2025 08:28:45 04/05/20 25 04/05/2025 COMPL ETE BLOOD COUNT lymphocyte,a bsolute 1.3 10*3/ uL 0.4-5. 1 normal Not Available [facility] [address] [place] [address], [address], 04/05/2025 08:28:45 04/05/20 25 04/05/2025 COMPL ETE BLOOD COUNT monocyte,abs olute 0.5 10*3/ uL 0.0-1. 2 normal Not Available [facility] [address] [place] [address], [address], 04/05/2025 08:28:45 04/05/20 25 04/05/2025 COMPL ETE BLOOD COUNT eosinophil,a bsolute 0.2 10*3/ uL 0.0-0. 8 normal Not Available [facility] [address] [place] [address], [address], 04/05/2025 08:28:45 04/05/20 25 04/05/2025 COMPL ETE BLOOD COUNT basophil,abs olute 0.1 10*3/ uL 0.0-0. 3 normal Not Available [facility] [address] [place] [address], [address], 04/05/2025 08:28:45 04/05/20 25 04/05/2025 COMPL ETE BLOOD COUNT % neutrophils 64.0 % 42.0-7 8.0 normal Not Available [facility] [address] [place] [address], [address], 04/05/2025 08:28:45 04/05/20 25 04/05/2025 COMPL ETE BLOOD COUNT % lymphocytes 23.0 % 11.0-4 7.0 normal Not Available [facility] [address] [place] [address], [address], 04/05/2025 08:28:45 04/05/20 25 04/05/2025 COMPL ETE BLOOD COUNT % monocytes 8.8 % 0.0-11 .0 normal Not Available [facility] [address] [place] [address], [address], 04/05/2025 08:28:45 04/05/20 25 04/05/2025 COMPL ETE BLOOD COUNT % eosinophils 3.1 % 0.0-7. 0 normal Not Available [facility] [address] [place] [address], [address], 04/05/2025 08:28:45 04/05/20 25 04/05/2025 COMPL ETE BLOOD COUNT % basophils 1.1 % 0.0-3. 0 normal Not Available [facility] [address] [place] [address], [address], 04/05/2025 08:28:45 04/05/20 25 04/05/2025 COMPL ETE BLOOD COUNT nucleated red cells 0.1 % 0.0-0. 9 normal Not Available [facility] [address] [place] [address], [address], 04/05/2025 08:28:45 04/05/20 25 04/05/2025 COMPL ETE BLOOD COUNT nucleated RBCs, absolute 0.00 10*3/ uL not estab. normal Not Available [facility] [address] [place] [address], [address], 04/05/2025 08:28:45 06/15/19 20 06/14/2019 elect johanne ledbetter am No observ ation record ed. [email or web address] [facility] [address] [place] [address], [place], [id number], 06/15/2019 11:40:26 08/24/19 20 08/22/2019 elect johanne thomasgr am No observ ation record ed. BARCODE Not Available 2019 08:53:37 03/30/20 23 03/30/2023 PET-C T, skull base to mid-t high scan [place] [address] [place] [address] Patien t Name: ABIMAEL IVERSON Patien t : [birth year] Patien t 7 Orderi ng Provid er: LESA COSTA EXAM DATE: 2022 EXAM: PET-CT TUMOR SKULL BASE-M ID THIGH SUB ST CLINIC AL INFORM ATION: Head and Neck Cancer - Restag ing. Dense base cancer . PROCED URE: Baseli ne blood glucos e level was 134 mg/dL. 11.58 mCi F-18 FDG ([facility] [address]018- 0511-3 0) was inject ed IV. After [...] Merida MD on 2022 1:35 PM INTERFACE [facility] Radiology [address], [address], 03/30/2023 13:40:19 04/02/20 23 04/02/2023 MRI, neck, w/wo contr ast [address] [place] [address] Patien t Name: DONTAEEmiliana IVERSON Patien t : [birth year] 42 Patien [...] strati on of [address] ([facility] [address]- 0325-0 2), there is no abnorm al [...] . The visual ized spinal cord and rehanger ior fossa of the brain are normal [...] Strauss MD on 2022 3:22 PM bcable [facility] Radiology [facility] [address] [place], [address], 04/05/2023 16:00:03 Result Notes Documentation Provider Name and Address Organization Details Recorded Time Pet-ct, Skull Base To Mid-thigh Scan : [facility] [address] [place] [address] Patient Name: SHEA IVERSON Patient : 1945 Patient Ordering Provider: LESA COSTA EXAM DATE: 03/30/2023 EXAM: PET-CT TUMOR SKULL BASE-MID THIGH SUB ST CLINICAL INFORMATION: Head and Neck Cancer - Restaging. Dense base cancer. PROCEDURE: Baseline blood glucose level was 134 mg/dL. 11.58 mCi F-18 FDG ([facility] [address]-34) was injected IV. After an uptake time [...] Interpreted By: Magno Merida MD Not Available [facility] 03/30/2023 13:40:19 Mri, Neck, W/wo Contrast : [id number] [place] [address] Patient Name: SHEA IVERSON Patient : 1945 [...] After intravenous administration of 10 mL Gadavist ([facility] [address]-99), there is no abnormal enhancement in the [...] Interpreted By: Addison Strauss MD Yris Buckley [facility] 04/05/2023 16:00:03 Problems Name Problem SNOMED Code Status Onset Date Resolution Date Notes Provider Name and Address Organization Details Recorded Time 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 11263378 Active 2014 From Automated Load;Provi lidia: Lesa Costa;Sta tus: Active Not Available [facility] 6 02:53:42 Malignant lymphoma of extranoda l AND/OR solid organ site 79980414 Active 2014 From Automated Load;Provi lidia: Lesa Costa;Sta tus: Active Not Available [facility] 6 02:53:42 Atrial fibrillat ion 37705584 Active 2017 [facility] 0 13:28:20 Long-term current use of anticoagu lant 351587034 Active 2018 [facility] 0 13:28:20 Swelling of limb 13016560 Active 2018 [facility] 0 13:28:20 Problem Notes None recorded. Procedures Surgical History Date Name Laterality Status Provider Name and Address Organization Details Recorded Time 05/11/19 24 Nasolaryngoscopy completed MACK TORREZ MD [address] [place] [address], [phone], [facility] 05/11/2023 15:03:53 01/16/20 23 Nasolaryngoscopy completed MACK TORREZ MD [address] [place] [address], [phone] 01/15/2023 14:33:46 08/22/19 20 EKG completed YASMANY NIETO MD [address] [place] [address], [phone], [facility] 08/22/2019 11:30:35 06/22/19 20 cardioversion completed Saira Beltran [facility] 06/27/2019 11:47:53 06/14/19 20 EKG completed GIOVANNI HORAN PA-C [address] [place] [address], [address], [facility] 06/14/2019 15:39:44 12/14/19 19 EKG completed GIOVANNIGRACE HORAN, PA-C [address] [place], [address], [facility] 12/13/2018 14:40:44 10/15/19 19 EKG completed GIOVANNI ALYSSA PA-C [address] [place], [address], [facility] 10/14/2018 15:53:15 09/01/19 19 EKG completed GIOVANNI HORAN, PA-C [address] [place], [address], [facility] 08/31/2018 11:18:30 09/01/19 19 Vas - Low Ext Michele Reflux Exam completed VAN CORNELL MD [address] [place], [address], [facility] 08/31/2018 14:03:33 05/31/19 19 EKG completed GIOVANNI HORAN, PA-C [address] [place], [address], [facility] 05/31/2018 11:11:36 04/22/19 19 EKG completed GIOVANNI HORAN PA-C [address] [place], [address], [facility] 04/22/2018 12:28:21 03/18/20 18 EKG completed GIOVANNI HORAN PA-C [address] [place], [address], [facility] 03/18/2018 13:37:41 [facility]/17[facility] 12:21:07 [facility] 12:21:10 tonsillectomy completed [facility] 08/22/2019 08:12:16 Xcapsl ctrc rmvl cplx wo ecp completed [facility] 08/22/2019 08:12:26 Total knee arthroplasty completed [facility] 08/22/2019 08:12:38 Imaging Results None recorded. Procedure Notes None recorded. Medical Equipment None Reported. Allergies Allergen ID Allergen Name Allergen Category Reaction Reaction Severity Criticality Documentation Date Start Date Code Code System Note Provider Name and Address Organization Details Recorded Time 311028 Product containin g 3-hydroxy -3-methyl glutaryl- coenzyme A reductase inhibitor (product) medicatio n myalgias (muscle pain) Not available Not available 03/13/20162009 03829 009 SNOMED React ion: MYALG IA; Comme nt: Creat ed By: Zenaida ferrari;Cre ated Date: 2009 11:28 :40 AM; Not Available [facility] 6 07:45:17 Medications Name Sig Start Date Stop Date Status Note LastModified by Organization Details LastModified Time diltiazem CD 180 mg capsule,e xtended release 24 hr Take 1 capsule every day by oral route. 09/19 completed Not Available Not Available Not Available [...] completed Not Available Not Available Not Available [employer]zess 05/31 completed Not Available Not Available Not [...] Updated DateTime 05/11/2023 165.1 cm 36.6 kg/m2 23975.32 g Yris Ackermanrosalie [facility] 05/11/2023 12:52:37 Date Recorded Body height Body mass index (BMI) Body weight Heart rate Systolic And Diastolic Provider Name and Address Organization Details Last Updated DateTime 06/14/2019 165.1 cm 41.3 kg/m2 886932.9 1 g 104 /min 118/62 mm[Hg] Emily Snow [facility] 0 13:24:48 Date Recorded Body height Body mass index (BMI) Body weight Heart rate Systolic And Diastolic Provider Name and Address Organization Details Last Updated DateTime 08/22/2019 165.1 cm 40.9 kg/m2 460918.7 2 g 57 /min 142/82 mm[Hg] Saira Beltran [facility] 08/22/2019 11:16:57 Date Recorded Body weight Body mass index (BMI) Body height Heart rate Systolic And Diastolic Provider Name and Address Organization Details Last Updated DateTime 01/15/2023 81716.32 g 36.6 kg/m2 165.1 cm 75 /min 157/92 mm[Hg] Lane Foreign [facility] 01/15/2023 13:20:53 Social History Question Answer Notes LastModified by Organizat ion Details LastModified Time Tobacco Smoking Status Former Smoker 40 years [facility] 11/17/2016 12:20:44 How Much Tobacco Do You Chew? None [email or web address] Information not available 08/02/2018 When Did You Quit Smoking? 16+yearssinc elastcigaret te [email or web address] Information not available 09/19/2018 Marital Status [email or web address] Information not available 01/11/2017 What Was The Date Of Your Most Recent Tobacco Screening? 08/22/2019 Information not available 08/22/2019 How Much Tobacco Do You Smoke? 1 PPD Information not available 08/22/2019 How Many Years Have You Smoked Tobacco? 20 Information not available 08/22/2019 Sex: Unknown Functional Status Question Answer Note LastModified by Organizat ion Details LastModified Time What is your level of alcohol consumption? None Information not available 01/11/2017 Do you or have you ever used smokeless tobacco? Never used smokeless tobacco Information not available 08/22/2019 What is your occupation? retired Information not available 01/11/2017 Do you or [...] Recorded Time pneumococcal, unspecified formulation 2 completed [facility] 05/10/2019 13:28:20 Influenza, split virus, quadrivalent, preservative 8 completed Sugar Mistry [facility] 05/10/2019 13:28:20 pneumococcal, unspecified formulation 8 completed Sugar Mistry [facility] 05/10/2019 13:28:20 zoster, unspecified formulation 9 completed Sugar Mistry [facility] 05/10/2019 13:28:20 Influenza, split virus, quadrivalent, preservative 9 completed Sugar Mistry [facility] 05/10/2019 13:28:20 Past Encounters Encounter ID Performer Location Encounter Start Date Encounter Closed Date Diagnosis/Indication Diagnosis SNOMED-CT Code Diagnosis ICD10 Code Diagnosis IMO Codes Diagnosis Note [id number] LESA COSTA MD HEM/[facility]C [facility] [address] [address] 05/11/2016 11:58:36 05/11/2016 14:15:47 Malignant lymphoma of intra-abdominal lymph nodes 39979789 C85.93 Pt is doing well with MICHAEL. She has new symptoms. Her main issue is related to arthritic knees. [id number] LESA COSTA MD HEM/ONC [facility] CLOSED [address] [address] 08/18/2016 12:10:51 08/18/2016 14:21:27 Malignant lymphoma of intra-abdominal lymph nodes 62845457 C85.93 Pt is doing well with MICHAEL. She has no new symptomato logy. Her main issue is related to her arthritis and constipati on. [id number] LESA COSTA MD HEM/ONC [facility] CLOSED [address] [address] 11/17/2016 12:10:53 11/17/2016 13:43:48 Malignant lymphoma of intra-abdominal lymph nodes 91491941 C85.93 Pt is doing well with MICHAEL. She has no new symptomato logy. Her main issue is related to her arthritis and constipati on. She will resume her stool softener. Hyperglycemia 16755231 R 73.9 Add hemoglobin A1C to today's labs. Encourage exercise and weight control. [id number] LESA COSTA MD HEM/ONC [facility] CL[facility] [address] [address] 01/11/2017 13:21:52 01/11/2017 14:58:19 Malignant lymphoma of intra-abdominal lymph nodes 82106854 C85.93 Pt with her new report of cervical LU. Will obtain CT scans of neck, CAP with. Obesity 355810115 E66.9 [id number] LESA COSTA MD HEM/ONC [facility] CLOSED [address] [address] 05/18/2017 11:39:11 05/18/2017 12:55:13 Malignant lymphoma of intra-abdominal lymph nodes 99955860 C85.93 Pt with shoddy diffuse LU that is stable. She has slight increase in her WBC. Obesity 485628683 E66.9 Encourage continued weight loss. Pt has completely cut out sweets. [id number] LESA COSTA MD HEM/ONC [facility] CLOSED [address] 6 08/17/2017 12:32:59 08/17/2017 14:27:17 Malignant lymphoma of intra-abdominal lymph nodes 78656478 C85.93 Pt with shoddy diffuse LU that is slightly enlarged from prior scans. She has slight increase in her WBC. We have asked TIFFANIE Carvalho to have lymph node sizes compared to prior films. Overall she is doing well. [id number] LESA COSTA MD HEM/ONC [facility] CL[facility]ED [address] [address] 11/09/2017 14:45:25 11/09/2017 15:50:59 Malignant lymphoma of intra-abdominal lymph nodes 99765539 C85.93 Pt with increasing LU from prior scans. She has had increase in her WBC. Secondary to her new symptoms, we will begin Imbruvica. She will RTC in 4 weeks. [id number] LESA COSTA MD HEM/ONC [facility] CLOSED [address],[place] [address] 12/21/2017 12:04:01 12/21/2017 13:34:16 Malignant lymphoma of intra-abdominal lymph nodes 04499808 C85.93 Pt with increasing LU from prior scans and she has had increase in her WBC. Secondary to her new symptoms, we began Imbruvica. She will RTC in 4 weeks. She is s/p cycle #1. [id number] LESA COSTA MD HEM/ONC [facility] CLOSED [address],[place] [address] 01/17/2018 12:07:55 01/17/2018 14:11:32 Malignant lymphoma of intra-abdominal lymph nodes 29778682 C85.93 Pt had increasing LU from prior [...] We will decrease dose to 280 mg. [id number] LESA COSTA MD HEM/ONC [facility] CLOSED [address],[place] [address] 02/15/2018 11:44:26 02/15/2018 13:23:48 Malignant lymphoma of intra-abdominal lymph nodes 95324133 C85.93 Pt had increasing LU from prior [...] mg. Complainin g of - watering eyes 902896714 H04.203 Refer to Ophthalmol ogy. [id number] LESA COSTA MD HEM/ONC [facility] CLOSED [address] [address] 03/15/2018 14:36:34 03/15/2018 15:45:06 Malignant lymphoma of intra-abdominal lymph nodes 19755882 C85.93 Pt had increasing LU from prior [...] . Complainin g of - watering eyes 294856187 H04.203 Refer to Ophthalmol mariajose. [id number] GIOVANNI HORAN PA-C CARDIOLOG Y [address] [place] [address] 03/18/2018 10:49:48 03/18/2018 15:10:16 Atrial fibrillation 45259287 I48.91 [id number] LESA COSTA MD HEM/ONC [facility] CLOSED [address] [place] [address] 04/18/2018 12:17:31 04/18/2018 14:34:47 Malignant lymphoma of intra-abdominal lymph nodes 50543501 C85.93 Pt had increasing LU from prior scans and she has had increase in her WBC. Secondary to her new symptoms, we have begun Imbruvica. She will RTC in 8 weeks. She is s/p cycle #6. She is up to date on her flu and pneumonia shots. Atrial fibrillation 4943 6004 I48.91 FU Cardiology . [id number] GIOVANNI HORAN PA-C CARDIOLOG Y [address] [place] [address] 04/22/2018 11:21:47 04/22/2018 12:45:40 Atrial fibrillation 83020688 I48.91 [id number] GIOVANNI HORAN PA-C CARDIOLOG Y [address] [place] [address] 05/31/2018 10:11:34 05/31/2018 11:28:40 Atrial fibrillation 42811636 I48.91 Long-term current use of anticoagulant 245049189 Z79.01 [id number] LESA COSTA MD HEM/ONC [facility] CLOSED [address],[place] [address] 06/20/2018 09:48:09 06/20/2018 11:39:13 Malignant lymphoma of intra-abdominal lymph nodes 60955548 C85.93 Pt had increasing LU from prior scans and she has had increase in her WBC. Secondary to her new symptoms, we will continue Imbruvica. She will RTC in 8 weeks. She is s/p cycle #8. She is up to date on her flu and pneumonia shots. Paroxysmal atrial fibrillation 764178528 I48.0 FU with cardiology . [id number] ADDISON GARSIA JR, MD GENERAL SURGERY SB [address] [place] [address] 08/02/2018 11:23:01 08/10/2018 08:30:14 Long-term current use of anticoagulant 627495896 Z79.01 Malignant lymphoma of intra-abdominal lymph nodes 23507108 C85.93 Swelling of limb 2505355 9 M79.89 Check venous duplex scan right lower extremity. Begin wearing elastic compressio n stockings. Discolorat ion of right leg is likely ecchymosis . [id number] VAN CORNELL MD ECHO VASCULAR LAB CLOSED [address] [place] [address] [place] [address] 08/31/2018 08:24:51 09/02/2018 14:35:45 Peripheral venous insufficiency 16555697 I87.2 [id number] GIOVANNI HORAN PA-C CARDIOLOG Y EAST [address] [place] [address] ,[address] [address] 08/31/2018 08:25:59 08/31/2018 10:39:30 Atrial fibrillation 06698275 I48.91 Long-term current use of anticoagulant 055438402 Z79.01 [id number] LESA COSTA MD HEM/ONC [facility] CLOSED [address],[place] [address] 09/19/2018 10:50:22 09/19/2018 12:29:35 Malignant lymphoma of intra-abdominal lymph nodes 34268108 C85.93 Pt had increasing LU from prior scans and she has had increase in her WBC. Secondary to her new symptoms, we will continue Imbruvica. She will RTC in 8 weeks. She is s/p cycle #11. She is up to date on her flu and pneumonia shots. 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 39655456 C85.99 Long-term current use of anticoagulant 061807988 Z79.01 [id number] GIOVANNI HORAN PA-C CARDIOLOG Y [address] [place], [place] [address] 10/14/2018 14:37:27 10/14/2018 16:02:28 Atrial fibrillation 64179766 I48.91 Long-term current use of anticoagulant 685241301 Z79.01 [id number] GIOVANNI HORAN PA-C CARDIOLOG Y [address] [place] [address] 12/13/2018 13:51:29 12/13/2018 14:51:29 Atrial fibrillation 82155201 I48.91 Long-term current use of anticoagulant 502280390 Z79.01 [id number] LESA COSTA MD HEM/ONC SB CLOSED [address] [place], [place] [address] 1 12/26/2018 11:52:40 12/26/2018 13:36:09 [id number] LESA COSTA MD HEM/ONC SB CLOSED [address] [place], [place] [address] 05/09/2019 12:55:16 05/09/2019 14:08:42 [id number] GIOVANNI HORAN PA-C CARDIOLOG [address] [place] [address] 06/14/2019 13:12:12 06/14/2019 16:11:52 Atrial fibrillation 78336350 I48.91 Long-term current use of anticoagulant 950382062 Z79.01 [id number] YASMANY NIETO MD CARDIOLOG Y [address] [place], [place] [address] 08/22/2019 10:43:49 08/22/2019 11:44:57 Long-term current use of anticoagulant 392744808 Z79.01 currently on Coumadin.n o bleeding issues reported. Maintain INR between 2 3 Paroxysmal atrial fibrillation 088935748 I48.0 I reviewed the EKG done today which shows sinus rhythm. I reviewed the recent DC cardiovers ion report. She is currently doing well. She is maintainin g normal sinus rhythm on current medication s. Long-term drug therapy 949454414 Z79.899 currently on flecainide 50 mg twice a day. QRS 1 02 ms. QTC 4 01 ms. Essential hypertension 74782209 I10 I recommende d she monitor her blood pressure and decrease sodium intake. Target blood pressure < 140/90 Overweight 197354838 E66 .3 weight loss counseled [id number] LESA COSTA MD HEM/ONC SB CLOSED [address] [place] [address] 08/29/2019 14:28:21 08/29/2019 15:04:18 [id number] LESA COSTA MD HEM/ONC SB CLOSED [address] [place], [place] [address] 11/28/2019 14:36:02 11/28/2019 15:10:55 [id number] LESA COSTA MD HEM/ONC SB CLOSED [address] [place], [place] [address] 02/19/2020 12:36:14 02/19/2020 13:05:30 [id number] LESA COSTA MD HEM/ONC SB CLOSED [address] [place] [address] 07/01/2020 13:29:08 07/01/2020 14:54:44 [id number] LESA COSTA MD HEM/ONC SB CLOSED [address] [place] [address] 12/02/2020 12:48:15 12/02/2020 13:16:37 [id number] LESA COSTA MD HEM/ONC SB CLOSED [address] [place] [address] 03/31/2021 12:14:48 03/31/2021 13:02:49 [id number] LESA COSTA MD HEM/ONC SB CLOSED [address] [place] [address] 06/02/2021 12:15:50 06/02/2021 14:29:15 [id number] LESA COSTA MD HEM/ONC SB CLOSED [address] [place] [address] 06/02/2021 15:53:28 06/02/2021 16:27:08 [id number] LESA COSTA MD HEM/ONC SB CLOSED [address] [place] [address] 08/04/2021 12:58:04 08/04/2021 13:55:28 [id number] LESA COSTA MD HEM/ONC SB CLOSED [address] [place] [address] 11/18/2021 15:10:29 11/18/2021 16:06:46 [id number] LESA COSTA MD HEM/ONC SB CLOSED [address] [place] [address] 02/17/2022 13:13:11 02/17/2022 15:56:55 [id number] LSEA COSTA MD HEM/ONC SB CLOSED [address] [place] [address] 05/26/2022 13:03:54 05/26/2022 14:36:10 [id number] LESA COSTA MD HEM/ONC SB CLOSED [address] [place] [address] 09/01/2022 12:09:23 09/01/2022 14:15:37 [id number] MACK TORREZ MD ENT [address] [place] [address] 01/15/2023 13:08:12 01/15/2023 15:31:51 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 CT neck at [facility] was read as a base of tongue [...] be off warfarin for 5 days preop [id number] MACK TORREZ MD SURGERY SCHEDULE [address] [place] [address] 02/22/2023 10:51:07 02/22/2023 10:51:56 [id number] MACK TORREZ MD ENT SB [address] [place] [address] 05/11/2023 12:42:55 05/11/2023 15:23:03 Hypertrophy of tonsils 55207736 J35.1 Several years ago the left was [...] 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 (MEDICAID REPLACEMENT - HMO) [id number] Shea Iverson [id number] Shea Iverson Notes Date Note Type Note [...] come under better control. GIOVANNI HORAN PA-C [address] [place] [address], [phone], [facility] 06/14/2019 15:46:40 0 text/html ROS as noted in the [facility] Ms. Iverson is a 74-year-old female with [...] a first-degree AV block. YASMANY NIETO MD [address] [place] [address], [phone], [facility] 08/22/2019 11:33:40 3 text/html Ref: Dr. Lesa Esposito complaint: Base of Tongue massTiming: about a monthDuration: constantLocation: Base of TongueSeverity: moderateQuality:Context: went 12/19/22 to hospital for vertigo and had CT head where the abnormality was noted at [facility], hx lymphoma, hx left tonsillectomy, on warfarin for afib managed by her cardiologistModifying factors: no txAssoc signs and symptoms: base of tongue mass, no dysphagia, no choking, no hoarseness, no SOB, no dyspnea, no throat pain, no voice changes, no hemoptysis MACK TORREZ MD [address] [place] [address] [place], [address], [facility] 01/15/2023 14:33:52 4 text/html Chief complaint: S/P right tonsillectomy, Micro DL with biopsy of base of tongueTimin02/22/23Duration:Location:R ight tonsilSeverity:Quality:Con text:Modifying factors:Assoc signs and symptoms:No dysphagia, no hoarseness, no signs of bleeding, no ear pain, eating well. MACK TORREZ MD [address] [place] [address], [phone], [facility] 05/11/2023 15:05:17 OBGyn Episode No OBEpisode recorded.
--- OUTSIDE RECORDS SUMMARY | 2025-04-08 21:50 | XMS_ITS | Encounter Summary ---
Author Organization Healthcare Address [address] [place] [address] Care Team Providers Care Sign Maintenance Name Role Phone Pcp, No Primary Care Provider Oren Hull MD Primary Care Provider Sima Trejo MD Unavailable [phone] Encounter Details Date Type Department Care Team (Late st Contact Info) Description 12/02/2020 Orders Only [facility] [address] [place] [address] Sima Trejo MD [address] [address] Social History Tobacco Use [...] Description 05/03/2025 8:00 AM EST Office Visit [facility] [address] [place] [address] 05/03/2025 9:00 AM EST Office Visit [facility] [address] [place] [address] Sima Trejo MD [address] [address] 05/03/2025 9:15 AM EST Infusion [facility] [address] documented as of this encounter Procedures Procedure Name Priority Date/Time Associated Diagnosis Comments COMPREHENSIVE METABOLIC PANEL, PLASMA Routine 12/02/2020 12:56 PM EDT documented in this encounter Results * (ABNORMAL) Comprehensive Metabolic Panel, Plasma (12/02/2020 12:56 PM EDT) External Glucose 101(H) 74 - 100 mg/dL [facility] External BUN 15 6 - 20 mg/dL [facility] External Creatinine Blood 1.37(H) 0.50 - 0.95 mg/dL [facility] External BUN/Creat Ratio 11 10 - 20 (calc) [facility] External Sodium 133(L) 136 - 145 mmol/L [facility] External Potassium 4.4 3.4 - 5.0 mmol/L [facility] External Chloride 96(L) 98 - 107 mmol/L [facility] External Carbon Dioxide 22 22 - 31 mmol/L [facility] External Anion Gap (AG) 15 7 - 25 (calc) [facility] External Calcium 9.2 8.6 - 10.2 mg/dL [facility] External Total Protein 7.0 6.4 - 8.3 g/dL [facility] External Albumin 4.2 3.5 - 5.2 g/dL [facility] External Globulin 2.8 1.5 - 4.5 g/dL (calc) [facility] External Albumin/Globulin Ratio 1.5 1.1 - 2.5 (calc) [facility] External Bilirubin Total 0.6 0.1 - 1.2 mg/dL [facility] External Alkaline Phosphatase 59 35 - 106 U/L [facility] External AST (SGOT) 20 0 - 32 U/L [facility] External ALT (SGPT) 13 0 - 33 U/L [facility] External EGFR (If AFR/AM) 43(A) >=60 [facility] External Estimated GFR 37(A) >=60 [facility] Comment: NOTE Chronic kidney disease [...] LAB BLOOD ORDERABLES Final Re sult [facility] [address] [place] [address], documented in this encounter Visit Diagnoses Not on filedocumented in this encounter Care Teams Sign Maintenance Relationship Specialty Start Date End Date Pcp, No [address] [place] [address] PCP - General 12/02/20 02/08/23 Oren Pressley MD [address] [facility] [address] [place] [address] PCP - General Internal Medicine 02/09/23 Sima Trejo MD [address] [address] Medical Oncologist Hematology and Oncology 08/02/23 documented as of this encounter
--- OUTSIDE RECORDS SUMMARY | 2025-04-08 21:50 | XMS_ITS | Encounter Summary ---
Author Organization Healthcare Address [address] [place] [address] Care Team Providers Care Energy Technician Name Role Phone Oren Pressley MD Primary Care Provider Sima Trejo MD Unavailable [phone] Reason for Visit * Reason Comments Med Refill Encounter Details Date Type Department Care Team (Late st Contact Info) Description 12/21/2024 Refill [facility] [address] [place] [id number] Sima Trejo MD [address] [address] Social History Tobacco Use Types [...] Description 05/03/2025 8:00 AM EST Office Visit [facility] [address] [place] [phone] 05/03/2025 9:00 AM EST Office Visit [facility] [address] [place] [address] Sima Trejo MD [address] [phone] 05/03/2025 9:15 AM EST Infusion [facility] [address] [place] [address] documented as of this encounter Visit Diagnoses Not on filedocumented in this encounter Additional Health Concerns Assessment Noted Time PHQ-9 Depression Total Score: 5 11/15/19 25 9:00 AM EDT A fall risk assessment has been complete d for the patient 08/08/2024 2:12 PM EDT documented as of this encounter Care Teams Energy Technician Relationship Specialty Start Date End Date Oren Pressley MD [address] [facility] [address] [place] [address] PCP - General Internal Medicine 02/09/23 Sima Trejo MD [address] [place] [phone] Medical Oncologist Hematology and Oncology 08/02/23 documented as of this encounter
--- OUTSIDE RECORDS SUMMARY | 2025-04-08 21:50 | XMS_ITS | Data Portability ---
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 Please give pt copy of labs. [email or web address] Not available 08/04/2021 13:48:52 11/18/2021 11/18/2021 RTC in 3 months with CBC, CMP, LDH and uric acid. Labs today CBC, CMP, LDH and uric acid. [email or web address] Not available 11/18/2021 15:53:34 02/17/2022 02/17/2022 RTC in 3 months with CBC, CMP, LDH and uric acid. Please give pt copy of labs. Please get CT results from [facility]. [email or web address] Not available 02/17/2022 14:52:39 05/26/2022 05/26/2022 RTC in 3 months with CBC, CMP, LDH and uric acid. Please give pt copy of labs. Please get pathology from [facility]. [email or web address] Not available 05/26/2022 14:27:02 09/01/2022 09/01/2022 RTC in 4 months with CBC, CMP, LDH and uric acid. Please give pt copy of labs. [email or web address] Not available 09/01/2022 13:32:17 Plan of Treatment [...] 6.0 K/uL 3.8-10 .8 normal Not Available [facility] [address] [place] [address], [phone], 08/04/2021 13:14:55 08/05/19 22 08/04/2021 COMPL ETE BLOOD COUNT red blood cells 3.89 M/uL 3.80-5 .20 normal Not Available [facility] [address] [place] [address], [address], 08/04/2021 13:14:55 08/05/19 22 08/04/2021 COMPL ETE BLOOD COUNT hemoglobin 11.9 g/dL 12.0-1 6.0 low Not Available [facility] [address] [place] [address], [phone], 08/04/2021 13:14:55 08/05/19 22 08/04/2021 COMPL ETE BLOOD COUNT hematocrit 36.0 % 35.0-4 7.0 normal Not Available [facility] [address] [place] [address], [phone], 08/04/2021 13:14:55 08/05/19 22 08/04/2021 COMPL ETE BLOOD COUNT MCV 93 fL 80-100 normal Not Available [facility] [address] [place] [address], [address], 08/04/2021 13:14:55 08/05/19 22 08/04/2021 COMPL ETE BLOOD COUNT MCH 31 pg 26-35 normal Not Available [facility] [address] [place] [address], [address], 08/04/2021 13:14:55 08/05/19 22 08/04/2021 COMPL ETE BLOOD COUNT MCHC 33 g/dL 32-36 normal Not Available [facility] [address] [place] [address], [address], 08/04/2021 13:14:55 08/05/19 22 08/04/2021 COMPL ETE BLOOD COUNT RDW 15.0 % 11.0-1 5.0 normal Not Available [facility] [address] [place] [address], [address], 08/04/2021 13:14:55 08/05/19 22 08/04/2021 COMPL ETE BLOOD COUNT MPV 7.1 fL 6.2-10 .5 normal Not Available [facility] [address] [place] [address], [address], 08/04/2021 13:14:55 08/05/19 22 08/04/2021 COMPL ETE BLOOD COUNT platelet count 131 K/uL 130-40 0 normal Not Available [facility] [address] [place] [address], [address], 08/04/2021 13:14:55 08/05/19 22 08/04/2021 COMPL ETE BLOOD COUNT neutrophil,a bsolute 4.0 K/uL 1.6-8. 4 normal Not Available [facility] [address] [place] [address], [address], 08/04/2021 13:14:55 08/05/19 22 08/04/2021 COMPL ETE BLOOD COUNT lymphocyte,a bsolute 1.3 K/uL 0.4-5. 1 normal Not Available [facility] [address] [place] [address], [address], 08/04/2021 13:14:55 08/05/19 22 08/04/2021 COMPL ETE BLOOD COUNT monocyte,abs olute 0.4 K/uL 0.0-1. 2 normal Not Available [facility] [address] [place], [address], 08/04/2021 13:14:55 08/05/19 22 08/04/2021 COMPL ETE BLOOD COUNT eosinophil,a bsolute 0.1 K/uL 0.0-0. 8 normal Not Available [facility] [address] [place] [address], [address], 08/04/2021 13:14:55 08/05/19 22 08/04/2021 COMPL ETE BLOOD COUNT basophil,abs olute 0.0 K/uL 0.0-0. 3 normal Not Available [facility] [address] [place] [address], [address], 08/04/2021 13:14:55 08/05/19 22 08/04/2021 COMPL ETE BLOOD COUNT % neutrophils 68.0 % 42.0-7 8.0 normal Not Available [facility] [address] [place] [address], [address], 08/04/2021 13:14:55 08/05/19 22 08/04/2021 COMPL ETE BLOOD COUNT % lymphocytes 21.8 % 11.0-4 7.0 normal Not Available [facility] [address] [place] [address], [address], 08/04/2021 13:14:55 08/05/19 22 08/04/2021 COMPL ETE BLOOD COUNT % monocytes 7.3 % 0.0-11 .0 normal Not Available [facility] [address] [place] [address], [address], 08/04/2021 13:14:55 08/05/19 22 08/04/2021 COMPL ETE BLOOD COUNT % eosinophils 2.1 % 0.0-7. 0 normal Not Available [facility] [address] [place] [address], [address], 08/04/2021 13:14:55 08/05/19 22 08/04/2021 COMPL ETE BLOOD COUNT % basophils 0.8 % 0.0-3. 0 normal Not Available [facility] [address] [place] [address], [address], 08/04/2021 13:14:55 08/05/19 22 08/04/2021 COMPL ETE BLOOD COUNT nucleated red cells 0.1 % 0.0-0. 9 normal Not Available [facility] [address] [place] [address], [address], 08/04/2021 13:14:55 08/05/19 22 08/04/2021 COMPL ETE BLOOD COUNT nucleated RBCs, absolute 0.01 K/uL not estab. normal Not Available [facility] [address] [place] [address], [address], 08/04/2021 13:14:55 08/05/19 22 08/04/2021 COMP. METAB OLIC PANEL glucose 99 mg/dL 74-100 normal Not Available [facility] [address] [place] [address], [address], 08/04/2021 14:32:05 08/05/19 22 08/04/2021 COMP. METAB OLIC PANEL blood urea nitrogen 23 mg/dL 6-20 high Not Available [facility] [address] [place] [address], [address], 08/04/2021 14:32:05 08/05/19 22 08/04/2021 COMP. METAB OLIC PANEL creatinine 1.69 mg/dL 0.50-0 .95 high Not Available [facility] [address] [place] [address], [address], 08/04/2021 14:32:05 08/05/19 22 08/04/2021 COMP. METAB OLIC PANEL BUN/creatini ne ratio 14 (calc ) 10-20 normal Not Available [facility] [address] [place] [address], [address], 08/04/2021 14:32:05 08/05/19 22 08/04/2021 COMP. METAB OLIC PANEL sodium 139 mmol/ L 136-14 5 normal Not Available [facility] [address] [place] [address], [address], 08/04/2021 14:32:05 08/05/19 22 08/04/2021 COMP. METAB OLIC PANEL potassium 4.1 mmol/ L 3.4-5. 0 normal Not Available [facility] [address] [place] [address], [address], 08/04/2021 14:32:05 08/05/19 22 08/04/2021 COMP. METAB OLIC PANEL chloride 105 mmol/ L 98-107 normal Not Available [facility] [address] [place] [address], [address], 08/04/2021 14:32:05 08/05/19 22 08/04/2021 COMP. METAB OLIC PANEL carbon dioxide 20 mmol/ L 22-31 low Not Available [facility] [address] [place] [address], [address], 08/04/2021 14:32:05 08/05/19 22 08/04/2021 COMP. METAB OLIC PANEL anion gap 14 (calc ) 7-25 normal Not Available [facility] [address] [place] [address], [address], 08/04/2021 14:32:05 08/05/19 22 08/04/2021 COMP. METAB OLIC PANEL calcium 9.0 mg/dL 8.6-10 .2 normal Not Available [facility] [address] [place] [address], [address], 08/04/2021 14:32:05 08/05/19 22 08/04/2021 COMP. METAB OLIC PANEL total protein 6.4 g/dL 6.4-8. 3 normal Not Available [facility] [address] [place] [address], [address], 08/04/2021 14:32:05 08/05/19 22 08/04/2021 COMP. METAB OLIC PANEL albumin 3.9 g/dL 3.5-5. 2 normal Not Available [facility] [address] [place] [address], [address], 08/04/2021 14:32:05 08/05/19 22 08/04/2021 COMP. METAB OLIC PANEL globulin 2.5 g/dL_ (calc ) 1.5-4. 5 normal Not Available [facility] [address] [place] [address], [address], 08/04/2021 14:32:05 08/05/19 22 08/04/2021 COMP. METAB OLIC PANEL albumin/glob ulin ratio 1.6 (calc ) 1.1-2. 5 normal Not Available [facility] [address] [place] [address], [address], 08/04/2021 14:32:05 08/05/19 22 08/04/2021 COMP. METAB OLIC PANEL bilirubin, total 0.3 mg/dL 0.1-1. 2 normal Not Available [facility] [address] [place] [address], [address], 08/04/2021 14:32:05 08/05/19 22 08/04/2021 COMP. METAB OLIC PANEL alkaline phosphatase 69 U/L 30-121 normal Not Available [facility] [address] [place] [address], [address], 08/04/2021 14:32:05 08/05/19 22 08/04/2021 COMP. METAB OLIC PANEL AST 11 U/L 0-32 normal Not Available [facility] [address] [place] [address], [address], 08/04/2021 14:32:05 08/05/19 22 08/04/2021 COMP. METAB OLIC PANEL ALT 13 U/L 0-33 normal Not Available [facility] [address] [place] [address], [phone], 08/04/2021 14:32:05 08/05/19 22 08/04/2021 COMP. METAB OLIC PANEL GFR 33 >= 60 abnormal Not Available [facility] [address] [place] [address], [address], 08/04/2021 14:32:05 08/05/19 22 08/04/2021 COMP. METAB [...] Lina Campoverde y Found ation [email or web address] :[email or web address] s/KDO QI/gf r_cal culat orPed Not Available [facility] [address] [place] [address], [address], 08/04/2021 14:32:05 08/05/19 22 08/04/2021 LDH LDH 187 U/L 135-23 3 normal Not Available [facility] [address] [place] [address], [address], 08/04/2021 14:51:42 02/18/20 22 02/17/2022 COMPL ETE BLOOD COUNT white blood cells 6.1 K/uL 3.8-10 .8 normal Not Available [facility] [address] [place] [address], [address], 02/17/2022 12:59:23 02/18/20 22 02/17/2022 COMPL ETE BLOOD COUNT red blood cells 4.03 M/uL 3.80-5 .20 normal Not Available [facility] [address] [place] [address], [address], 02/17/2022 12:59:23 02/18/20 22 02/17/2022 COMPL ETE BLOOD COUNT hemoglobin 12.1 g/dL 12.0-1 6.0 normal Not Available [facility] [address] [place] [address], [address], 02/17/2022 12:59:23 02/18/20 22 02/17/2022 COMPL ETE BLOOD COUNT hematocrit 35.9 % 35.0-4 7.0 normal Not Available [facility] [address] [place] [address], [address], 02/17/2022 12:59:23 02/18/20 22 02/17/2022 COMPL ETE BLOOD COUNT MCV 89 fL 80-100 normal Not Available [facility] [address] [place] [address], [address], 02/17/2022 12:59:23 02/18/20 22 02/17/2022 COMPL ETE BLOOD COUNT MCH 30 pg 26-35 normal Not Available [facility] [address] [place] [address], [address], 02/17/2022 12:59:23 02/18/20 22 02/17/2022 COMPL ETE BLOOD COUNT MCHC 34 g/dL 32-36 normal Not Available [facility] [address] [place] [address], [address], 02/17/2022 12:59:23 02/18/20 22 02/17/2022 COMPL ETE BLOOD COUNT RDW 14.6 % 11.0-1 5.0 normal Not Available [facility] [address] [place] [address], [address], 02/17/2022 12:59:23 02/18/20 22 02/17/2022 COMPL ETE BLOOD COUNT MPV 7.3 fL 6.2-10 .5 normal Not Available [facility] [address] [place] [address], [address], 02/17/2022 12:59:23 02/18/20 22 02/17/2022 COMPL ETE BLOOD COUNT platelet count 180 K/uL 130-40 0 normal Not Available [facility] [address] [place] [address], [address], 02/17/2022 12:59:23 02/18/20 22 02/17/2022 COMPL ETE BLOOD COUNT neutrophil,a bsolute 3.8 K/uL 1.6-8. 4 normal Not Available [facility] [address] [place] [address], [address], 02/17/2022 12:59:23 02/18/20 22 02/17/2022 COMPL ETE BLOOD COUNT lymphocyte,a bsolute 1.6 K/uL 0.4-5. 1 normal Not Available [facility] [address] [place] [address], [address], 02/17/2022 12:59:23 02/18/20 22 02/17/2022 COMPL ETE BLOOD COUNT monocyte,abs olute 0.5 K/uL 0.0-1. 2 normal Not Available [facility] [address] [place] [address], [address], 02/17/2022 12:59:23 02/18/20 22 02/17/2022 COMPL ETE BLOOD COUNT eosinophil,a bsolute 0.1 K/uL 0.0-0. 8 normal Not Available [facility] [address] [place] [address], [address], 02/17/2022 12:59:23 02/18/20 22 02/17/2022 COMPL ETE BLOOD COUNT basophil,abs olute 0.1 K/uL 0.0-0. 3 normal Not Available [facility] [address] [place] [address], [address], 02/17/2022 12:59:23 02/18/20 22 02/17/2022 COMPL ETE BLOOD COUNT % neutrophils 62.4 % 42.0-7 8.0 normal Not Available [facility] [address] [place] [address], [address], 02/17/2022 12:59:23 02/18/20 22 02/17/2022 COMPL ETE BLOOD COUNT % lymphocytes 25.6 % 11.0-4 7.0 normal Not Available [facility] [address] [place] [address], [address], 02/17/2022 12:59:23 02/18/20 22 02/17/2022 COMPL ETE BLOOD COUNT % monocytes 9.0 % 0.0-11 .0 normal Not Available [facility] [address] [place] [address], [address], 02/17/2022 12:59:23 02/18/20 22 02/17/2022 COMPL ETE BLOOD COUNT % eosinophils 2.0 % 0.0-7. 0 normal Not Available [facility] [address] [place] [address], [address], 02/17/2022 12:59:23 02/18/20 22 02/17/2022 COMPL ETE BLOOD COUNT % basophils 1.0 % 0.0-3. 0 normal Not Available [facility] [address] [place] [address], [address], 02/17/2022 12:59:23 02/18/20 22 02/17/2022 COMPL ETE BLOOD COUNT nucleated red cells 0.0 % 0.0-0. 9 normal Not Available [facility] [address] [place] [address], [address], 02/17/2022 12:59:23 02/18/20 22 02/17/2022 COMPL ETE BLOOD COUNT nucleated RBCs, absolute 0.00 K/uL not estab. normal Not Available [facility] [address] [place] [address], [address], 02/17/2022 12:59:23 02/18/20 22 02/17/2022 LDH LDH 163 U/L 135-23 3 normal Not Available [facility] [address] [place] [address], [address], 02/17/2022 13:26:21 02/18/20 22 02/17/2022 COMP. METAB OLIC PANEL glucose 98 mg/dL 74-100 normal Not Available [facility] [address] [place] [address], [address], 02/17/2022 13:26:53 02/18/20 22 02/17/2022 COMP. METAB OLIC PANEL blood urea nitrogen 21 mg/dL 6-20 high Not Available [facility] [address] [place] [address], [address], 02/17/2022 13:26:53 02/18/20 22 02/17/2022 COMP. METAB OLIC PANEL creatinine 1.34 mg/dL 0.50-0 .95 high Not Available [facility] [address] [place] [address], [address], 02/17/2022 13:26:53 02/18/20 22 02/17/2022 COMP. METAB OLIC PANEL BUN/creatini ne ratio 16 (calc ) 10-20 normal Not Available [facility] [address] [place] [address], [address], 02/17/2022 13:26:53 02/18/20 22 02/17/2022 COMP. METAB OLIC PANEL sodium 138 mmol/ L 136-14 5 normal Not Available [facility] [address] [place] [address], [address], 02/17/2022 13:26:53 02/18/20 22 02/17/2022 COMP. METAB OLIC PANEL potassium 4.0 mmol/ L 3.4-5. 0 normal Not Available [facility] [address] [place] [address], [address], 02/17/2022 13:26:53 02/18/20 22 02/17/2022 COMP. METAB OLIC PANEL chloride 103 mmol/ L 98-107 normal Not Available [facility] [address] [place] [address], [address], 02/17/2022 13:26:53 02/18/20 22 02/17/2022 COMP. METAB OLIC PANEL carbon dioxide 24 mmol/ L 22-31 normal Not Available [facility] [address] [place] [address], [address], 02/17/2022 13:26:53 02/18/20 22 02/17/2022 COMP. METAB OLIC PANEL anion gap 11 (calc ) 7-25 normal Not Available [facility] [address] [place] [address], [address], 02/17/2022 13:26:53 02/18/20 22 02/17/2022 COMP. METAB OLIC PANEL calcium 9.1 mg/dL 8.6-10 .2 normal Not Available [facility] [address] [place] [address], [address], 02/17/2022 13:26:53 02/18/20 22 02/17/2022 COMP. METAB OLIC PANEL total protein 6.9 g/dL 6.4-8. 3 normal Not Available [facility] [address] [place] [address], [address], 02/17/2022 13:26:53 02/18/20 22 02/17/2022 COMP. METAB OLIC PANEL albumin 4.2 g/dL 3.5-5. 2 normal Not Available [facility] [address] [place] [address], [address], 02/17/2022 13:26:53 02/18/20 22 02/17/2022 COMP. METAB OLIC PANEL globulin 2.7 g/dL_ (calc ) 1.5-4. 5 normal Not Available [facility] [address] [place] [address], [address], 02/17/2022 13:26:53 02/18/20 22 02/17/2022 COMP. METAB OLIC PANEL albumin/glob ulin ratio 1.6 (calc ) 1.1-2. 5 normal Not Available [facility] [address] [place] [address], [address], 02/17/2022 13:26:53 02/18/20 22 02/17/2022 COMP. METAB OLIC PANEL bilirubin, total 0.4 mg/dL 0.1-1. 2 normal Not Available [facility] [address] [place], [address], 02/17/2022 13:26:53 02/18/20 22 02/17/2022 COMP. METAB OLIC PANEL alkaline phosphatase 79 U/L 30-121 normal Not Available [facility] [address] [place] [address], [address], 02/17/2022 13:26:53 02/18/20 22 02/17/2022 COMP. METAB OLIC PANEL AST 17 U/L 0-32 normal Not Available [facility] [address] [place] [address], [address], 02/17/2022 13:26:53 02/18/20 22 02/17/2022 COMP. METAB OLIC PANEL ALT 15 U/L 0-33 normal Not Available [facility] [address] [place] [address], [address], 02/17/2022 13:26:53 02/18/20 22 02/17/2022 COMP. METAB [...] s/KDO QI/gf r_cal culat orPed Not Available [facility] [address] [place] [address], [address], 02/17/2022 13:26:53 02/18/20 22 02/17/2022 URIC ACID [...] mstan my. Arthr itis Care and Resea [facility] Vol 64 No 10, 2011 Michelle can Colle ge of Rheum atolo gy ----- ----- ----- ----- ----- ----- ----- ----- ----- ----- ----- ---- Not Available [facility] [address] [place], [address], 02/17/2022 13:26:55 05/26/19 23 05/26/2022 COMPL ETE BLOOD COUNT white blood cells 5.6 K/uL 3.8-10 .8 normal Not Available [facility] [address] [place] [address], [address], 05/26/2022 13:25:38 05/26/19 23 05/26/2022 COMPL ETE BLOOD COUNT red blood cells 4.06 M/uL 3.80-5 .20 normal Not Available [facility] [address] [place] [address], [address], 05/26/2022 13:25:38 05/26/19 23 05/26/2022 COMPL ETE BLOOD COUNT hemoglobin 12.0 g/dL 12.0-1 6.0 normal Not Available [facility] [address] [place] [address], [address], 05/26/2022 13:25:38 05/26/19 23 05/26/2022 COMPL ETE BLOOD COUNT hematocrit 36.0 % 35.0-4 7.0 normal Not Available [facility] [address] [place] [address], [address], 05/26/2022 13:25:38 05/26/19 23 05/26/2022 COMPL ETE BLOOD COUNT MCV 89 fL 80-100 normal Not Available [facility] [address] [place] [address], [address], 05/26/2022 13:25:38 05/26/19 23 05/26/2022 COMPL ETE BLOOD COUNT MCH 30 pg 26-35 normal Not Available [facility] [address] [place] [address], [address], 05/26/2022 13:25:38 05/26/19 23 05/26/2022 COMPL ETE BLOOD COUNT MCHC 33 g/dL 32-36 normal Not Available [facility] [address] [place] [address], [address], 05/26/2022 13:25:38 05/26/19 23 05/26/2022 COMPL ETE BLOOD COUNT RDW 15.9 % 11.0-1 5.0 high Not Available [facility] [address] [place] [address], [address], 05/26/2022 13:25:38 05/26/19 23 05/26/2022 COMPL ETE BLOOD COUNT MPV 7.5 fL 6.2-10 .5 normal Not Available [facility] [address] [place] [address], [address], 05/26/2022 13:25:38 05/26/19 23 05/26/2022 COMPL ETE BLOOD COUNT platelet count 176 K/uL 130-40 0 normal Not Available [facility] [address] [place] [address], [address], 05/26/2022 13:25:38 05/26/19 23 05/26/2022 COMPL ETE BLOOD COUNT neutrophil,a bsolute 3.3 K/uL 1.6-8. 4 normal Not Available [facility] [address] [place] [address], [address], 05/26/2022 13:25:38 05/26/19 23 05/26/2022 COMPL ETE BLOOD COUNT lymphocyte,a bsolute 1.7 K/uL 0.4-5. 1 normal Not Available [facility] [address] [place] [address], [address], 05/26/2022 13:25:38 05/26/19 23 05/26/2022 COMPL ETE BLOOD COUNT monocyte,abs olute 0.5 K/uL 0.0-1. 2 normal Not Available [facility] [address] [place] [address], [address], 05/26/2022 13:25:38 05/26/19 23 05/26/2022 COMPL ETE BLOOD COUNT eosinophil,a bsolute 0.1 K/uL 0.0-0. 8 normal Not Available [facility] [address] [place] [address], [address], 05/26/2022 13:25:38 05/26/19 23 05/26/2022 COMPL ETE BLOOD COUNT basophil,abs olute 0.0 K/uL 0.0-0. 3 normal Not Available [facility] [address] [place] [address], [address], 05/26/2022 13:25:38 05/26/19 23 05/26/2022 COMPL ETE BLOOD COUNT % neutrophils 59.0 % 42.0-7 8.0 normal Not Available [facility] [address] [place] [address], [address], 05/26/2022 13:25:38 05/26/19 23 05/26/2022 COMPL ETE BLOOD COUNT % lymphocytes 30.6 % 11.0-4 7.0 normal Not Available [facility] [address] [place], [place] [address], [id number], 05/26/2022 13:25:38 05/26/19 23 05/26/2022 COMPL ETE BLOOD COUNT % monocytes 8.1 % 0.0-11 .0 normal Not Available [facility] [address] [place] [address], [phone], 05/26/2022 13:25:38 05/26/19 23 05/26/2022 COMPL ETE BLOOD COUNT % eosinophils 1.7 % 0.0-7. 0 normal Not Available [facility] [address] [place] [address], [phone], 05/26/2022 13:25:38 05/26/19 23 05/26/2022 COMPL ETE BLOOD COUNT % basophils 0.6 % 0.0-3. 0 normal Not Available [facility] [address] [place] [address], [address], 05/26/2022 13:25:38 05/26/19 23 05/26/2022 COMPL ETE BLOOD COUNT nucleated red cells 0.0 % 0.0-0. 9 normal Not Available [facility] [address] [place] [address], [address], 05/26/2022 13:25:38 05/26/19 23 05/26/2022 COMPL ETE BLOOD COUNT nucleated RBCs, absolute 0.00 K/uL not estab. normal Not Available [facility] [address] [place] [address], [address], 05/26/2022 13:25:38 05/26/19 23 05/26/2022 LDH LDH 155 U/L 135-23 3 normal Not Available [facility] [address] [place] [address], [address], 05/26/2022 13:51:16 05/26/19 23 05/26/2022 COMP. METAB OLIC PANEL glucose 116 mg/dL 74-100 high Not Available [facility] [address] [place] [address], [address], 05/26/2022 13:54:17 05/26/19 23 05/26/2022 COMP. METAB OLIC PANEL blood urea nitrogen 22 mg/dL 6-20 high Not Available [facility] [address] [place] [address], [address], 05/26/2022 13:54:17 05/26/19 23 05/26/2022 COMP. METAB OLIC PANEL creatinine 1.15 mg/dL 0.50-0 .95 high Not Available [facility] [address] [place] [address], [address], 05/26/2022 13:54:17 05/26/19 23 05/26/2022 COMP. METAB OLIC PANEL BUN/creatini ne ratio 19 (calc ) 10-20 normal Not Available [facility] [address] [place] [address], [address], 05/26/2022 13:54:17 05/26/19 23 05/26/2022 COMP. METAB OLIC PANEL sodium 140 mmol/ L 136-14 5 normal Not Available [facility] [address] [place] [address], [address], 05/26/2022 13:54:17 05/26/19 23 05/26/2022 COMP. METAB OLIC PANEL potassium 4.4 mmol/ L 3.4-5. 0 normal Not Available [facility] [address] [place] [address], [address], 05/26/2022 13:54:17 05/26/19 23 05/26/2022 COMP. METAB OLIC PANEL chloride 104 mmol/ L 98-107 normal Not Available [facility] [address] [place] [address], [address], 05/26/2022 13:54:17 05/26/19 23 05/26/2022 COMP. METAB OLIC PANEL carbon dioxide 25 mmol/ L 22-31 normal Not Available [facility] [address] [place] [address], [address], 05/26/2022 13:54:17 05/26/19 23 05/26/2022 COMP. METAB OLIC PANEL anion gap 11 (calc ) 7-25 normal Not Available [facility] [address] [place] [address], [address], 05/26/2022 13:54:17 05/26/19 23 05/26/2022 COMP. METAB OLIC PANEL calcium 9.5 mg/dL 8.6-10 .2 normal Not Available [facility] [address] [place] [address], [address], 05/26/2022 13:54:17 05/26/19 23 05/26/2022 COMP. METAB OLIC PANEL total protein 7.0 g/dL 6.4-8. 3 normal Not Available [facility] [address] [place] [address], [address], 05/26/2022 13:54:17 05/26/19 23 05/26/2022 COMP. METAB OLIC PANEL albumin 4.3 g/dL 3.5-5. 2 normal Not Available [facility] [address] [place] [address], [address], 05/26/2022 13:54:17 05/26/19 23 05/26/2022 COMP. METAB OLIC PANEL globulin 2.7 g/dL_ (calc ) 1.5-4. 5 normal Not Available [facility] [address] [place] [address], [address], 05/26/2022 13:54:17 05/26/19 23 05/26/2022 COMP. METAB OLIC PANEL albumin/glob ulin ratio 1.6 (calc ) 1.1-2. 5 normal Not Available [facility] [address] [place], [address], 05/26/2022 13:54:17 05/26/19 23 05/26/2022 COMP. METAB OLIC PANEL bilirubin, total 0.4 mg/dL 0.1-1. 2 normal Not Available [facility] [address] [place] [address], [address], 05/26/2022 13:54:17 05/26/19 23 05/26/2022 COMP. METAB OLIC PANEL alkaline phosphatase 71 U/L 30-121 normal Not Available [facility] [address] [place] [address], [address], 05/26/2022 13:54:17 05/26/19 23 05/26/2022 COMP. METAB OLIC PANEL AST 18 U/L 0-32 normal Not Available [facility] [address] [place] [address], [address], 05/26/2022 13:54:17 05/26/19 23 05/26/2022 COMP. METAB OLIC PANEL ALT 15 U/L 0-33 normal Not Available [facility] [address] [place] [address], [address], 05/26/2022 13:54:17 05/26/19 23 05/26/2022 COMP. METAB [...] s/KDO QI/gf r_cal culat orPed Not Available [facility] [address] [place] [address], [address], 05/26/2022 13:54:17 05/26/19 23 05/26/2022 URIC ACID uric acid 8.9 mg/dL 2.4-5. 7 high Refer ence range s are based on [facility] norms and do not neces leesa lsater late with treat ment targe ts. In [...] mstan my. Arthr itis Care and Resea [facility] Vol 64 No 10, 2011 Michelle can Colle ge of Rheum atolo gy ----- ----- ----- ----- ----- ----- ----- ----- ----- ----- ----- ---- Not Available [facility] [address] [place] [address], [id number], 05/26/2022 13:54:18 09/02/19 23 09/01/2022 COMPL ETE BLOOD COUNT white blood cells 6.8 10*3/ uL 3.8-10 .8 normal Not Available [facility] [address] [place] [address], [address], 09/01/2022 12:52:29 09/02/19 23 09/01/2022 COMPL ETE BLOOD COUNT red blood cells 4.15 10*6/ uL 3.80-5 .20 normal Not Available [facility] [address] [place], [address], 09/01/2022 12:52:29 09/02/19 23 09/01/2022 COMPL ETE BLOOD COUNT hemoglobin 12.5 g/dL 12.0-1 6.0 normal Not Available [facility] [address] [place] [address], [address], 09/01/2022 12:52:29 09/02/19 23 09/01/2022 COMPL ETE BLOOD COUNT hematocrit 37.0 % 35.0-4 7.0 normal Not Available [facility] [address] [place] [address], [address], 09/01/2022 12:52:29 09/02/19 23 09/01/2022 COMPL ETE BLOOD COUNT MCV 89 fL 80-100 normal Not Available [facility] [address] [place] [address], [address], 09/01/2022 12:52:29 09/02/1909/01/2022 COMPL ETE BLOOD COUNT MCH 30 pg 26-35 normal Not Available [facility] [address] [place] [address], [address], 09/01/2022 12:52:29 09/02/19 23 09/01/2022 COMPL ETE BLOOD COUNT MCHC 34 g/dL 32-36 normal Not Available [facility] [address] [place] [address], [address], 09/01/2022 12:52:29 09/02/19 23 09/01/2022 COMPL ETE BLOOD COUNT RDW 14.1 % 11.0-1 5.0 normal Not Available [facility] [address] [place] [address], [address], 09/01/2022 12:52:29 09/02/1909/01/2022 COMPL ETE BLOOD COUNT MPV 7.5 fL 6.2-10 .5 normal Not Available [facility] [address] [place] [address], [address], 09/01/2022 12:52:29 09/02/1909/01/2022 COMPL ETE BLOOD COUNT platelet count 194 10*3/ uL 130-40 0 normal Not Available [facility] [address] [place] [address], [address], 09/01/2022 12:52:29 09/02/19 23 09/01/2022 COMPL ETE BLOOD COUNT neutrophil,a bsolute 4.0 10*3/ uL 1.6-8. 4 normal Not Available [facility] [address] [place] [address], [address], 09/01/2022 12:52:29 09/02/1909/01/2022 COMPL ETE BLOOD COUNT lymphocyte,a bsolute 2.0 10*3/ uL 0.4-5. 1 normal Not Available [facility] [address] [place] [address], [address], 09/01/2022 12:52:29 09/02/1909/01/2022 COMPL ETE BLOOD COUNT monocyte,abs olute 0.5 10*3/ uL 0.0-1. 2 normal Not Available [facility] [address] [place] [address], [address], 09/01/2022 12:52:29 09/02/19 23 09/01/2022 COMPL ETE BLOOD COUNT eosinophil,a bsolute 0.2 10*3/ uL 0.0-0. 8 normal Not Available [facility] [address] [place] [address], [address], 09/01/2022 12:52:29 09/02/1909/01/2022 COMPL ETE BLOOD COUNT basophil,abs olute 0.1 10*3/ uL 0.0-0. 3 normal Not Available [facility] [address] [place] [address], [address], 09/01/2022 12:52:29 09/02/1909/01/2022 COMPL ETE BLOOD COUNT % neutrophils 59.2 % 42.0-7 8.0 normal Not Available [facility] [address] [place] [address], [address], 09/01/2022 12:52:29 09/02/1909/01/2022 COMPL ETE BLOOD COUNT % lymphocytes 29.7 % 11.0-4 7.0 normal Not Available [facility] [address] [place] [address], [address], 09/01/2022 12:52:29 09/02/19 23 09/01/2022 COMPL ETE BLOOD COUNT % monocytes 7.7 % 0.0-11 .0 normal Not Available [facility] [address] [place] [address], [address], 09/01/2022 12:52:29 09/02/19 23 09/01/2022 COMPL ETE BLOOD COUNT % eosinophils 2.6 % 0.0-7. 0 normal Not Available [facility] [address] [place] [address], [address], 09/01/2022 12:52:29 09/02/19 23 09/01/2022 COMPL ETE BLOOD COUNT % basophils 0.8 % 0.0-3. 0 normal Not Available [facility] [address] [place] [address], [address], 09/01/2022 12:52:29 09/02/19 23 09/01/2022 COMPL ETE BLOOD COUNT nucleated red cells 0.0 % 0.0-0. 9 normal Not Available [facility] [address] [place] [address], [address], 09/01/2022 12:52:29 09/02/19 23 09/01/2022 COMPL ETE BLOOD COUNT nucleated RBCs, absolute 0.00 10*3/ uL not estab. normal Not Available [facility] [address] [place] [address], [address], 09/01/2022 12:52:29 09/02/19 23 09/01/2022 COMP. METAB OLIC PANEL glucose 121 mg/dL 74-100 high Not Available [facility] [address] [place] [address], [address], 09/01/2022 13:03:18 09/02/19 23 09/01/2022 COMP. METAB OLIC PANEL blood urea nitrogen 18 mg/dL 6-20 normal Not Available [facility] [address] [place] [address], [address], 09/01/2022 13:03:18 09/02/19 23 09/01/2022 COMP. METAB OLIC PANEL creatinine 1.32 mg/dL 0.50-0 .95 high Not Available [facility] [address] [place] [address], [address], 09/01/2022 13:03:18 09/02/19 23 09/01/2022 COMP. METAB OLIC PANEL BUN/creatini ne ratio 14 (calc ) 10-20 normal Not Available [facility] [address] [place] [address], [address], 09/01/2022 13:03:18 09/02/19 23 09/01/2022 COMP. METAB OLIC PANEL sodium 137 mmol/ L 136-14 5 normal Not Available [facility] [address] [place] [address], [address], 09/01/2022 13:03:18 09/02/19 23 09/01/2022 COMP. METAB OLIC PANEL potassium 4.1 mmol/ L 3.4-5. 0 normal Not Available [facility] [address] [place] [address], [address], 09/01/2022 13:03:18 09/02/19 23 09/01/2022 COMP. METAB OLIC PANEL chloride 99 mmol/ L 98-107 normal Not Available [facility] [address] [place] [address], [address], 09/01/2022 13:03:18 09/02/19 23 09/01/2022 COMP. METAB OLIC PANEL carbon dioxide 25 mmol/ L 22-31 normal Not Available [facility] [address] [place] [address], [address], 09/01/2022 13:03:18 09/02/19 23 09/01/2022 COMP. METAB OLIC PANEL anion gap 13 (calc ) 7-25 normal Not Available [facility] [address] [place] [address], [address], 09/01/2022 13:03:18 09/02/19 23 09/01/2022 COMP. METAB OLIC PANEL calcium 9.5 mg/dL 8.6-10 .2 normal Not Available [facility] [address] [place] [address], [address], 09/01/2022 13:03:18 09/02/19 23 09/01/2022 COMP. METAB OLIC PANEL total protein 7.3 g/dL 6.4-8. 3 normal Not Available [facility] [address] [place] [address], [address], 09/01/2022 13:03:18 09/02/19 23 09/01/2022 COMP. METAB OLIC PANEL albumin 4.3 g/dL 3.5-5. 2 normal Not Available [facility] [address] [place] [address], [address], 09/01/2022 13:03:18 09/02/19 23 09/01/2022 COMP. METAB OLIC PANEL globulin 3.0 1.5-4. 5 normal Not Available [facility] [address] [place] [address], [address], 09/01/2022 13:03:18 09/02/19 23 09/01/2022 COMP. METAB OLIC PANEL albumin/glob ulin ratio 1.4 (calc ) 1.1-2. 5 normal Not Available [facility] [address] [place] [address], [address], 09/01/2022 13:03:18 09/02/19 23 09/01/2022 COMP. METAB OLIC PANEL bilirubin, total 0.8 mg/dL 0.1-1. 2 normal Not Available [facility] [address] [place], [address], 09/01/2022 13:03:18 09/02/19 23 09/01/2022 COMP. METAB OLIC PANEL alkaline phosphatase 67 U/L 30-121 normal Not Available [facility] [address] [place], [address], 09/01/2022 13:03:18 09/02/19 23 09/01/2022 COMP. METAB OLIC PANEL AST 15 U/L 0-32 normal Not Available [facility] [address] [place], [address], 09/01/2022 13:03:18 09/02/19 23 09/01/2022 COMP. METAB OLIC PANEL ALT 8 U/L 0-33 normal Not Available [facility] [address] [place], [address], 09/01/2022 13:03:18 09/02/19 23 09/01/2022 COMP. METAB OLIC PANEL GFR 41 >= 60 abnormal NOT E New calcu latio n for GFR (CKD- EPI 2020) is formu lated witho ut race adjus tment facto rs at the recom menda tion of the Lina Campoverde y Seth atcatherine and Ameri can Socie ty of Nephr ology . This calcu latio n has not been valid ated in pregn ant women . For pedia tric patie nts refer to https :[email or web address] rg/pr lia adorno s/KDO QI/gf r_cal culat orPed Not Available [facility] [address] [place], [address], 09/01/2022 13:03:18 09/02/19 23 09/01/2022 URIC ACID [...] mstan my. Arthr itis Care and Resea [facility] Vol 64 No 10, 2011 Michelle puentes Colle ge of Rheum atolo gy ----- ----- ----- ----- ----- ----- ----- ----- ----- ----- ----- ---- Not Available [facility] [address] [place] [address], [address], 09/01/2022 13:03:19 09/02/19 23 09/01/2022 LDH LDH 172 U/L 135-23 3 normal Not Available [facility] [address] [place] [address], [address], 09/01/2022 13:20:20 01/13/20 23 01/12/2023 COMP. METAB OLIC PANEL glucose 109 mg/dL 74-100 high Not Available [facility] [address] [place] [address], [address], 01/12/2023 15:02:07 01/13/20 23 01/12/2023 COMP. METAB OLIC PANEL blood urea nitrogen 19 mg/dL 6-20 normal Not Available [facility] [address] [place] [address], [address], 01/12/2023 15:02:07 01/13/20 23 01/12/2023 COMP. METAB OLIC PANEL creatinine 1.35 mg/dL 0.50-0 .95 high Not Available [facility] [address] [place] [address], [address], 01/12/2023 15:02:07 01/13/20 23 01/12/2023 COMP. METAB OLIC PANEL BUN/creatini ne ratio 14 (calc ) 10-20 normal Not Available [facility] [address] [place] [address], [address], 01/12/2023 15:02:07 01/13/20 23 01/12/2023 COMP. METAB OLIC PANEL sodium 139 mmol/ L 136-14 5 normal Not Available [facility] [address] [place] [address], [address], 01/12/2023 15:02:07 01/13/20 23 01/12/2023 COMP. METAB OLIC PANEL potassium 4.5 mmol/ L 3.4-5. 0 normal Not Available [facility] [address] [place] [address], [address], 01/12/2023 15:02:07 01/13/20 23 01/12/2023 COMP. METAB OLIC PANEL chloride 104 mmol/ L 98-107 normal Not Available [facility] [address] [place] [address], [address], 01/12/2023 15:02:07 01/13/20 23 01/12/2023 COMP. METAB OLIC PANEL carbon dioxide 24 mmol/ L 22-31 normal Not Available [facility] [address] [place] [address], [address], 01/12/2023 15:02:07 01/13/20 23 01/12/2023 COMP. METAB OLIC PANEL anion gap 11 (calc ) 7-25 normal Not Available [facility] [address] [place] [address], [address], 01/12/2023 15:02:07 01/13/20 23 01/12/2023 COMP. METAB OLIC PANEL calcium 9.1 mg/dL 8.6-10 .2 normal Not Available [facility] [address] [place] [address], [address], 01/12/2023 15:02:07 01/13/20 23 01/12/2023 COMP. METAB OLIC PANEL total protein 6.8 g/dL 6.4-8. 3 normal Not Available [facility] [address] [place] [address], [address], 01/12/2023 15:02:07 01/13/20 23 01/12/2023 COMP. METAB OLIC PANEL albumin 4.2 g/dL 3.5-5. 2 normal Not Available [facility] [address] [place] [address], [address], 01/12/2023 15:02:07 01/13/20 23 01/12/2023 COMP. METAB OLIC PANEL globulin 2.6 1.5-4. 5 normal Not Available [facility] [address] [place] [address], [address], 01/12/2023 15:02:07 01/13/20 23 01/12/2023 COMP. METAB OLIC PANEL albumin/glob ulin ratio 1.6 (calc ) 1.1-2. 5 normal Not Available [facility] [address] [place] [address], [address], 01/12/2023 15:02:07 01/13/20 23 01/12/2023 COMP. METAB OLIC PANEL bilirubin, total 0.6 mg/dL 0.1-1. 2 normal Not Available [facility] [address] [place] [address], [address], 01/12/2023 15:02:07 01/13/20 23 01/12/2023 COMP. METAB OLIC PANEL alkaline phosphatase 63 U/L 30-121 normal Not Available [facility] [address] [place] [address], [address], 01/12/2023 15:02:07 01/13/20 23 01/12/2023 COMP. METAB OLIC PANEL AST 13 U/L 0-32 normal Not Available [facility] [address] [place] [address], [address], 01/12/2023 15:02:07 01/13/20 23 01/12/2023 COMP. METAB OLIC PANEL ALT 10 U/L 0-33 normal Not Available [facility] [address] [place], [address], 01/12/2023 15:02:07 01/13/20 23 01/12/2023 COMP. METAB [...] to https ://[email or web address] rg/pr lia adorno s/YARIO QI/gf r_cal culat orPed Not Available [facility] [address] [place], [address], 01/12/2023 15:02:07 01/13/20 23 01/12/2023 URIC ACID [...] mstan my. Arthr itis Care and Resea [facility] Vol 64 No 10, 2011 Michelle puentes Colle ge of Rheum atolo gy ----- ----- ----- ----- ----- ----- ----- ----- ----- ----- ----- ---- Not Available [facility] [address] [place] [address], [address], 01/12/2023 15:02:09 01/13/20 23 01/12/2023 LDH LDH 167 U/L 135-23 3 normal Not Available [facility] [address] [place] [address], [address], 01/12/2023 15:02:55 01/13/20 23 01/12/2023 COMPL ETE BLOOD COUNT white blood cells 7.6 10*3/ uL 3.8-10 .8 normal RESUL TS RECHE CKED Not Available [facility] [address] [place] [address], [address], 01/12/2023 15:09:32 01/13/20 23 01/12/2023 COMPL ETE BLOOD COUNT red blood cells 4.03 10*6/ uL 3.80-5 .20 normal Not Available [facility] [address] [place] [address], [address], 01/12/2023 15:09:32 01/13/20 23 01/12/2023 COMPL ETE BLOOD COUNT hemoglobin 12.0 g/dL 12.0-1 6.0 normal Not Available [facility] [address] [place] [address], [address], 01/12/2023 15:09:32 01/13/20 23 01/12/2023 COMPL ETE BLOOD COUNT hematocrit 36.2 % 35.0-4 7.0 normal Not Available [facility] [address] [place] [address], [address], 01/12/2023 15:09:32 01/13/20 23 01/12/2023 COMPL ETE BLOOD COUNT MCV 90 fL 80-100 normal Not Available [facility] [address] [place] [address], [address], 01/12/2023 15:09:32 01/13/20 23 01/12/2023 COMPL ETE BLOOD COUNT MCH 30 pg 26-35 normal Not Available [facility] [address] [place] [address], [address], 01/12/2023 15:09:32 01/13/20 23 01/12/2023 COMPL ETE BLOOD COUNT MCHC 33 g/dL 32-36 normal Not Available [facility] [address] [place] [address], [address], 01/12/2023 15:09:32 01/13/20 23 01/12/2023 COMPL ETE BLOOD COUNT RDW 14.8 % 11.0-1 5.0 normal Not Available [facility] [address] [place] [address], [address], 01/12/2023 15:09:32 01/13/20 23 01/12/2023 COMPL ETE BLOOD COUNT MPV 7.7 fL 6.2-10 .5 normal Not Available [facility] [address] [place] [address], [address], 01/12/2023 15:09:32 01/13/20 23 01/12/2023 COMPL ETE BLOOD COUNT platelet count 151 10*3/ uL 130-40 0 normal Not Available [facility] [address] [place] [address], [address], 01/12/2023 15:09:32 01/13/20 23 01/12/2023 COMPL ETE BLOOD COUNT neutrophil,a bsolute 4.0 10*3/ uL 1.6-8. 4 normal Not Available [facility] [address] [place] [address], [address], 01/12/2023 15:09:32 01/13/20 23 01/12/2023 COMPL ETE BLOOD COUNT lymphocyte,a bsolute 3.3 10*3/ uL 0.4-5. 1 normal Not Available [facility] [address] [place] [address], [phone], 01/12/2023 15:09:32 01/13/20 23 01/12/2023 COMPL ETE BLOOD COUNT monocyte,abs olute 0.2 10*3/ uL 0.0-1. 2 normal Not Available [facility] [address] [place] [address], [address], 01/12/2023 15:09:32 01/13/20 23 01/12/2023 COMPL ETE BLOOD COUNT eosinophil,a bsolute 0.1 10*3/ uL 0.0-0. 8 normal Not Available [facility] [address] [place] [address], [address], 01/12/2023 15:09:32 01/13/20 23 01/12/2023 COMPL ETE BLOOD COUNT basophil,abs olute 0.0 10*3/ uL 0.0-0. 3 normal Not Available [facility] [address] [place] [address], [address], 01/12/2023 15:09:32 01/13/20 23 01/12/2023 COMPL ETE BLOOD COUNT % neutrophils 52.0 % 42.0-7 8.0 normal Not Available [facility] [address] [place] [address], [address], 01/12/2023 15:09:32 01/13/20 23 01/12/2023 COMPL ETE BLOOD COUNT % lymphocytes 44.0 % 11.0-4 7.0 normal Not Available [facility] [address] [place] [address], [phone], 01/12/2023 15:09:32 01/13/20 23 01/12/2023 COMPL ETE BLOOD COUNT % monocytes 3.0 % 0.0-11 .0 normal Not Available [facility] [address] [place] [address], [address], 01/12/2023 15:09:32 01/13/20 23 01/12/2023 COMPL ETE BLOOD COUNT % eosinophils 1.0 % 0.0-7. 0 normal Not Available [facility] [address] [place] [address], [address], 01/12/2023 15:09:32 01/13/20 23 01/12/2023 COMPL ETE BLOOD COUNT % basophils 0.0 % 0.0-3. 0 normal Not Available [facility] [address] [place] [address], [address], 01/12/2023 15:09:32 01/13/20 23 01/12/2023 COMPL ETE BLOOD COUNT nucleated red cells 0.0 % 0.0-0. 9 normal Not Available [facility] [address] [place] [address], [address], 01/12/2023 15:09:32 01/13/20 23 01/12/2023 COMPL ETE BLOOD COUNT nucleated RBCs, absolute 0.00 10*3/ uL not estab. normal Not Available [facility] [address] [place] [address], [address], 01/12/2023 15:09:32 01/13/20 23 01/12/2023 MANUA L DIFFE RENTI AL % band neutrophils 0.0 % 0.0-7. 0 normal Not Available [facility] [address] [place] [address], [address], 01/12/2023 15:09:35 01/13/20 23 01/12/2023 MANUA L DIFFE RENTI AL % atypical lymphocytes 0 % 0-1 normal Not Available [facility] [address] [place] [address], [address], 01/12/2023 15:09:35 01/13/20 23 01/12/2023 MANUA L DIFFE RENTI AL % metamyelocyt es 0 % 0-1 normal Not Available [facility] [address] [place] [address], [address], 01/12/2023 15:09:35 01/13/20 23 01/12/2023 MANUA L DIFFE RENTI AL % myelocytes 0 % 0-1 normal Not Available [facility] [address] [place] [address], [address], 01/12/2023 15:09:35 01/13/20 23 01/12/2023 MANUA L DIFFE RENTI AL % promyelocyte s 0 % 0 normal Not Available [facility] [address] [place] [address], [address], 01/12/2023 15:09:35 01/13/20 23 01/12/2023 MANUA L DIFFE RENTI AL % blast 0 % 0 normal Not Available [facility] [address] [place] [address], [address], 01/12/2023 15:09:35 01/13/20 23 01/12/2023 MANUA L DIFFE RENTI AL nucleated red cells 0 /100{ WBC} 0-1 normal Not Available [facility] [address] [place] [address], [address], 01/12/2023 15:09:35 01/13/20 23 01/12/2023 MANUA L DIFFE RENTI AL smudge cells 0 /100{ WBC} 0 normal Not Available [facility] [address] [place] [address], [address], 01/12/2023 15:09:35 01/13/20 23 01/12/2023 MANUA L DIFFE RENTI AL platelet morphology NORMAL normal Not Available [facility] [address] [place] [address], [address], 01/12/2023 15:09:35 01/13/20 23 01/12/2023 MANUA L DIFFE RENTI AL hypochromasi a SLIGHT abnormal Not Available [facility] [address] [place] [address], [address], 01/12/2023 15:09:35 01/13/20 23 01/12/2023 MANUA L DIFFE RENREMY AL ovalocytes SLIGHT abnormal Not Available [facility] [address] [place] [address], [address], 01/12/2023 15:09:35 02/10/20 23 02/09/2023 COMP. METAB OLIC PANEL glucose 108 mg/dL 74-100 high Not Available [facility] [address] [place] [address], [address], 02/09/2023 14:33:27 02/10/20 23 02/09/2023 COMP. METAB OLIC PANEL blood urea nitrogen 18 mg/dL 6-20 normal Not Available [facility] [address] [place] [address], [address], 02/09/2023 14:33:27 02/10/20 23 02/09/2023 COMP. METAB OLIC PANEL creatinine 1.31 mg/dL 0.50-0 .95 high Not Available [facility] [address] [place] [address], [address], 02/09/2023 14:33:27 02/10/20 23 02/09/2023 COMP. METAB OLIC PANEL BUN/creatini ne ratio 14 (calc ) 10-20 normal Not Available [facility] [address] [place] [address], [address], 02/09/2023 14:33:27 02/10/20 23 02/09/2023 COMP. METAB OLIC PANEL sodium 136 mmol/ L 136-14 5 normal Not Available [facility] [address] [place] [address], [address], 02/09/2023 14:33:27 02/10/20 23 02/09/2023 COMP. METAB OLIC PANEL potassium 4.1 mmol/ L 3.4-5. 0 normal Not Available [facility] [address] [place] [address], [address], 02/09/2023 14:33:27 02/10/20 23 02/09/2023 COMP. METAB OLIC PANEL chloride 101 mmol/ L 98-107 normal Not Available [facility] [address] [place] [address], [address], 02/09/2023 14:33:27 02/10/20 23 02/09/2023 COMP. METAB OLIC PANEL carbon dioxide 25 mmol/ L 22-31 normal Not Available [facility] [address] [place] [address], [address], 02/09/2023 14:33:27 02/10/20 23 02/09/2023 COMP. METAB OLIC PANEL anion gap 10 (calc ) 7-25 normal Not Available [facility] [address] [place] [address], [address], 02/09/2023 14:33:27 02/10/20 23 02/09/2023 COMP. METAB OLIC PANEL calcium 9.1 mg/dL 8.6-10 .2 normal Not Available [facility] [address] [place] [address], [address], 02/09/2023 14:33:27 02/10/20 23 02/09/2023 COMP. METAB OLIC PANEL total protein 6.8 g/dL 6.4-8. 3 normal Not Available [facility] [address] [place] [address], [address], 02/09/2023 14:33:27 02/10/20 23 02/09/2023 COMP. METAB OLIC PANEL albumin 4.2 g/dL 3.5-5. 2 normal Not Available [facility] [address] [place] [address], [address], 02/09/2023 14:33:27 02/10/20 23 02/09/2023 COMP. METAB OLIC PANEL globulin 2.6 1.5-4. 5 normal Not Available [facility] [address] [place] [address], [address], 02/09/2023 14:33:27 02/10/20 23 02/09/2023 COMP. METAB OLIC PANEL albumin/glob ulin ratio 1.6 (calc ) 1.1-2. 5 normal Not Available [facility] [address] [place], [address], 02/09/2023 14:33:27 02/10/20 23 02/09/2023 COMP. METAB OLIC PANEL bilirubin, total 0.7 mg/dL 0.1-1. 2 normal Not Available [facility] [address] [place], [address], 02/09/2023 14:33:27 02/10/20 23 02/09/2023 COMP. METAB OLIC PANEL alkaline phosphatase 63 U/L 30-121 normal Not Available [facility] [address] [place] [address], [address], 02/09/2023 14:33:27 02/10/20 23 02/09/2023 COMP. METAB OLIC PANEL AST 14 U/L 0-32 normal Not Available [facility] [address] [place] [address], [address], 02/09/2023 14:33:27 02/10/20 23 02/09/2023 COMP. METAB OLIC PANEL ALT 9 U/L 0-33 normal Not Available [facility] [address] [place] [address], [address], 02/09/2023 14:33:27 02/10/20 23 02/09/2023 COMP. METAB OLIC PANEL GFR 41 >= 60 abnormal NOT E New calcu latio n for GFR (CKD- EPI 2020) is formu lated witho ut race adjus tment facto rs at the recom menda tion of the [facility] ty of Nephr ology . This calcu latio n has not been valid ated in pregn ant women . For pedia tric patie nts refer to https :[email or web address]/pr ofess ional s/KDO QI/gf r_cal culat orPed Not Available [facility] [address] [place], [address], 02/09/2023 14:33:27 02/10/20 23 02/09/2023 URIC ACID [...] mstan my. Arthr itis Care and Resea [facility] Vol 64 No 10, 2011 Michelle puentes Colle ge of Rheum atolo gy ----- ----- ----- ----- ----- ----- ----- ----- ----- ----- ----- ---- Not Available [facility] [address] [place], [address], 02/09/2023 14:33:29 02/10/20 23 02/09/2023 LDH LDH 165 U/L 135-23 3 normal Not Available [facility] [address] [place], [address], 02/09/2023 14:47:40 02/10/20 23 02/09/2023 COMPL ETE BLOOD COUNT white blood cells 8.3 10*3/ uL 3.8-10 .8 normal Not Available [facility] [address] [place], [address], 02/09/2023 14:51:28 02/10/20 23 02/09/2023 COMPL ETE BLOOD COUNT red blood cells 4.15 10*6/ uL 3.80-5 .20 normal Not Available [facility] [address] [place] [address], [address], 02/09/2023 14:51:28 02/10/20 23 02/09/2023 COMPL ETE BLOOD COUNT hemoglobin 12.3 g/dL 12.0-1 6.0 normal Not Available [facility] [address] [place] [address], [address], 02/09/2023 14:51:28 02/10/20 23 02/09/2023 COMPL ETE BLOOD COUNT hematocrit 36.5 % 35.0-4 7.0 normal Not Available [facility] [address] [place] [address], [address], 02/09/2023 14:51:28 02/10/20 23 02/09/2023 COMPL ETE BLOOD COUNT MCV 88 fL 80-100 normal Not Available [facility] [address] [place] [address], [address], 02/09/2023 14:51:28 02/10/20 23 02/09/2023 COMPL ETE BLOOD COUNT MCH 30 pg 26-35 normal Not Available [facility] [address] [place] [address], [address], 02/09/2023 14:51:28 02/10/20 23 02/09/2023 COMPL ETE BLOOD COUNT MCHC 34 g/dL 32-36 normal Not Available [facility] [address] [place] [address], [address], 02/09/2023 14:51:28 02/10/20 23 02/09/2023 COMPL ETE BLOOD COUNT RDW 14.5 % 11.0-1 5.0 normal Not Available [facility] [address] [place] [address], [address], 02/09/2023 14:51:28 02/10/20 23 02/09/2023 COMPL ETE BLOOD COUNT MPV 7.6 fL 6.2-10 .5 normal Not Available [facility] [address] [place] [address], [address], 02/09/2023 14:51:28 02/10/20 23 02/09/2023 COMPL ETE BLOOD COUNT platelet count 184 10*3/ uL 150-40 0 normal Not Available [facility] [address] [place] [address], [address], 02/09/2023 14:51:28 02/10/20 23 02/09/2023 COMPL ETE BLOOD COUNT neutrophil,a bsolute 4.2 10*3/ uL 1.6-8. 4 normal Not Available [facility] [address] [place] [address], [address], 02/09/2023 14:51:28 02/10/20 23 02/09/2023 COMPL ETE BLOOD COUNT lymphocyte,a bsolute 2.9 10*3/ uL 0.4-5. 1 normal Not Available [facility] [address] [place] [address], [address], 02/09/2023 14:51:28 02/10/20 23 02/09/2023 COMPL ETE BLOOD COUNT monocyte,abs olute 0.7 10*3/ uL 0.0-1. 2 normal Not Available [facility] [address] [place] [address], [address], 02/09/2023 14:51:28 02/10/20 23 02/09/2023 COMPL ETE BLOOD COUNT eosinophil,a bsolute 0.2 10*3/ uL 0.0-0. 8 normal Not Available [facility] [address] [place] [address], [address], 02/09/2023 14:51:28 02/10/20 23 02/09/2023 COMPL ETE BLOOD COUNT basophil,abs olute 0.0 10*3/ uL 0.0-0. 3 normal Smear revie wed to confi rm cell morph ology . Not Available [facility] [address] [place] [address], [address], 02/09/2023 14:51:28 02/10/20 23 02/09/2023 COMPL ETE BLOOD COUNT % neutrophils 50.0 % 42.0-7 8.0 normal Not Available [facility] [address] [place] [address], [address], 02/09/2023 14:51:28 02/10/20 23 02/09/2023 COMPL ETE BLOOD COUNT % lymphocytes 35.0 % 11.0-4 7.0 normal Not Available [facility] [address] [place] [address], [address], 02/09/2023 14:51:28 02/10/20 23 02/09/2023 COMPL ETE BLOOD COUNT % monocytes 9.0 % 0.0-11 .0 normal Not Available [facility] [address] [place] [address], [address], 02/09/2023 14:51:28 02/10/20 23 02/09/2023 COMPL ETE BLOOD COUNT % eosinophils 2.0 % 0.0-7. 0 normal Not Available [facility] [address] [place] [address], [address], 02/09/2023 14:51:28 02/10/20 23 02/09/2023 COMPL ETE BLOOD COUNT % basophils 0.0 % 0.0-3. 0 normal Not Available [facility] [address] [place] [address], [address], 02/09/2023 14:51:28 02/10/20 23 02/09/2023 COMPL ETE BLOOD COUNT nucleated red cells 0.2 % 0.0-0. 9 normal Not Available [facility] [address] [place] [address], [address], 02/09/2023 14:51:28 02/10/20 23 02/09/2023 COMPL ETE BLOOD COUNT nucleated RBCs, absolute 0.01 10*3/ uL not estab. normal Not Available [facility] [address] [place] [address], [address], 02/09/2023 14:51:28 02/10/20 23 02/09/2023 MANUA L DIFFE RENTI AL % band neutrophils 0.0 % 0.0-7. 0 normal Not Available [facility] [address] [place] [address], [address], 02/09/2023 14:51:30 02/10/20 23 02/09/2023 MANUA L DIFFE RENTI AL % atypical lymphocytes 4 % 0-1 high Not Available [facility] [address] [place] [address], [address], 02/09/2023 14:51:30 02/10/20 23 02/09/2023 MANUA L DIFFE RENTI AL % metamyelocyt es 0 % 0-1 normal Not Available [facility] [address] [place] [address], [address], 02/09/2023 14:51:30 02/10/20 23 02/09/2023 MANUA L DIFFE RENTI AL % myelocytes 0 % 0-1 normal Not Available [facility] [address] [place] [address], [address], 02/09/2023 14:51:30 02/10/20 23 02/09/2023 MANUA L DIFFE RENTI AL % promyelocyte s 0 % 0 normal Not Available [facility] [address] [place] [address], [address], 02/09/2023 14:51:30 02/10/20 23 02/09/2023 MANUA L DIFFE RENTI AL % blast 0 % 0 normal Not Available [facility] [address] [place] [address], [address], 02/09/2023 14:51:30 02/10/20 23 02/09/2023 MANUA L DIFFE RENTI AL nucleated red cells 0 /100{ WBC} 0-1 normal Not Available [facility] [address] [place] [address], [address], 02/09/2023 14:51:30 02/10/20 23 02/09/2023 MANUA L DIFFE RENTI AL smudge cells 0 /100{ WBC} 0 normal Not Available [facility] [address] [place] [address], [address], 02/09/2023 14:51:30 02/10/20 23 02/09/2023 MANUA L DIFFE RENTI AL platelet morphology NORMAL normal Not Available [facility] [address] [place] [address], [address], 02/09/2023 14:51:30 02/10/20 23 02/09/2023 MANUA L DIFFE RENTI AL stomatocytes SLIGHT abnormal Not Available [facility] [address] [place] [address], [address], 02/09/2023 14:51:30 03/30/20 23 03/30/2023 COMPL ETE BLOOD COUNT white blood cells 12.4 10*3/ uL 3.8-10 .8 high Not Available [facility] [address] [place] [address], [address], 03/30/2023 10:12:44 03/30/20 23 03/30/2023 COMPL ETE BLOOD COUNT red blood cells 4.37 10*6/ uL 3.80-5 .20 normal Not Available [facility] [address] [place] [address], [address], 03/30/2023 10:12:44 03/30/20 23 03/30/2023 COMPL ETE BLOOD COUNT hemoglobin 12.6 g/dL 12.0-1 6.0 normal Not Available [facility] [address] [place] [address], [address], 03/30/2023 10:12:44 03/30/20 23 03/30/2023 COMPL ETE BLOOD COUNT hematocrit 38.4 % 35.0-4 7.0 normal Not Available [facility] [address] [place] [address], [address], 03/30/2023 10:12:44 03/30/20 23 03/30/2023 COMPL ETE BLOOD COUNT MCV 88 fL 80-100 normal Not Available [facility] [address] [place] [address], [address], 03/30/2023 10:12:44 03/30/20 23 03/30/2023 COMPL ETE BLOOD COUNT MCH 29 pg 26-35 normal Not Available [facility] [address] [place] [address], [address], 03/30/2023 10:12:44 03/30/20 23 03/30/2023 COMPL ETE BLOOD COUNT MCHC 33 g/dL 32-36 normal Not Available [facility] [address] [place] [address], [address], 03/30/2023 10:12:44 03/30/20 23 03/30/2023 COMPL ETE BLOOD COUNT RDW 15.2 % 11.0-1 5.0 high Not Available [facility] [address] [place] [address], [address], 03/30/2023 10:12:44 03/30/20 23 03/30/2023 COMPL ETE BLOOD COUNT MPV 7.2 fL 6.2-10 .5 normal Not Available [facility] [address] [place] [address], [address], 03/30/2023 10:12:44 03/30/20 23 03/30/2023 COMPL ETE BLOOD COUNT platelet count 166 10*3/ uL 150-40 0 normal Not Available [facility] [address] [place] [address], [address], 03/30/2023 10:12:44 03/30/20 23 03/30/2023 COMPL ETE BLOOD COUNT neutrophil,a bsolute 5.8 10*3/ uL 1.6-8. 4 normal Not Available [facility] [address] [place] [address], [address], 03/30/2023 10:12:44 03/30/20 23 03/30/2023 COMPL ETE BLOOD COUNT lymphocyte,a bsolute 5.7 10*3/ uL 0.4-5. 1 high Not Available [facility] [address] [place] [address], [address], 03/30/2023 10:12:44 03/30/20 23 03/30/2023 COMPL ETE BLOOD COUNT monocyte,abs olute 0.7 10*3/ uL 0.0-1. 2 normal Not Available [facility] [address] [place] [address], [address], 03/30/2023 10:12:44 03/30/20 23 03/30/2023 COMPL ETE BLOOD COUNT eosinophil,a bsolute 0.1 10*3/ uL 0.0-0. 8 normal Not Available [facility] [address] [place] [address], [address], 03/30/2023 10:12:44 03/30/20 23 03/30/2023 COMPL ETE BLOOD COUNT basophil,abs olute 0.0 10*3/ uL 0.0-0. 3 normal Not Available [facility] [address] [place] [address], [address], 03/30/2023 10:12:44 03/30/20 23 03/30/2023 COMPL ETE BLOOD COUNT % neutrophils 46.9 % 42.0-7 8.0 normal Not Available [facility] [address] [place] [address], [address], 03/30/2023 10:12:44 03/30/20 23 03/30/2023 COMPL ETE BLOOD COUNT % lymphocytes 45.9 % 11.0-4 7.0 normal Not Available [facility] [address] [place] [address], [address], 03/30/2023 10:12:44 03/30/20 23 03/30/2023 COMPL ETE BLOOD COUNT % monocytes 5.8 % 0.0-11 .0 normal Not Available [facility] [address] [place] [address], [address], 03/30/2023 10:12:44 03/30/20 23 03/30/2023 COMPL ETE BLOOD COUNT % eosinophils 1.1 % 0.0-7. 0 normal Not Available [facility] [address] [place] [address], [phone], 03/30/2023 10:12:44 03/30/20 23 03/30/2023 COMPL ETE BLOOD COUNT % basophils 0.3 % 0.0-3. 0 normal Not Available [facility] [address] [place] [address], [address], 03/30/2023 10:12:44 03/30/20 23 03/30/2023 COMPL ETE BLOOD COUNT nucleated red cells 0.1 % 0.0-0. 9 normal Not Available [facility] [address] [place] [address], [address], 03/30/2023 10:12:44 03/30/20 23 03/30/2023 COMPL ETE BLOOD COUNT nucleated RBCs, absolute 0.01 10*3/ uL not estab. normal Not Available [facility] [address] [place] [address], [address], 03/30/2023 10:12:44 03/30/20 23 03/30/2023 COMP. METAB OLIC PANEL glucose 107 mg/dL 74-100 high Not Available [facility] [address] [place] [address], [address], 03/30/2023 10:45:23 03/30/20 23 03/30/2023 COMP. METAB OLIC PANEL blood urea nitrogen 18 mg/dL 6-20 normal Not Available [facility] [address] [place] [address], [address], 03/30/2023 10:45:23 03/30/20 23 03/30/2023 COMP. METAB OLIC PANEL creatinine 1.44 mg/dL 0.50-0 .95 high Not Available [facility] [address] [place] [address], [address], 03/30/2023 10:45:23 03/30/20 23 03/30/2023 COMP. METAB OLIC PANEL BUN/creatini ne ratio 13 (calc ) 10-20 normal Not Available [facility] [address] [place] [address], [address], 03/30/2023 10:45:23 03/30/20 23 03/30/2023 COMP. METAB OLIC PANEL sodium 139 mmol/ L 136-14 5 normal Not Available [facility] [address] [place] [address], [address], 03/30/2023 10:45:23 03/30/20 23 03/30/2023 COMP. METAB OLIC PANEL potassium 4.3 mmol/ L 3.4-5. 0 normal Not Available [facility] [address] [place] [address], [address], 03/30/2023 10:45:23 03/30/20 23 03/30/2023 COMP. METAB OLIC PANEL chloride 103 mmol/ L 98-107 normal Not Available [facility] [address] [place] [address], [address], 03/30/2023 10:45:23 03/30/20 23 03/30/2023 COMP. METAB OLIC PANEL carbon dioxide 26 mmol/ L 22-31 normal Not Available [facility] [address] [place] [address], [address], 03/30/2023 10:45:23 03/30/20 23 03/30/2023 COMP. METAB OLIC PANEL anion gap 10 (calc ) 7-25 normal Not Available [facility] [address] [place] [address], [address], 03/30/2023 10:45:23 03/30/20 23 03/30/2023 COMP. METAB OLIC PANEL calcium 9.2 mg/dL 8.6-10 .2 normal Not Available [facility] [address] [place] [address], [address], 03/30/2023 10:45:23 03/30/20 23 03/30/2023 COMP. METAB OLIC PANEL total protein 7.0 g/dL 6.4-8. 3 normal Not Available [facility] [address] [place] [address], [address], 03/30/2023 10:45:23 03/30/20 23 03/30/2023 COMP. METAB OLIC PANEL albumin 4.6 g/dL 3.5-5. 2 normal Not Available [facility] [address] [place] [address], [address], 03/30/2023 10:45:23 03/30/20 23 03/30/2023 COMP. METAB OLIC PANEL globulin 2.4 1.5-4. 5 normal Not Available [facility] [address] [place] [address], [address], 03/30/2023 10:45:23 03/30/20 23 03/30/2023 COMP. METAB OLIC PANEL albumin/glob ulin ratio 1.9 (calc ) 1.1-2. 5 normal Not Available [facility] [address] [place] [address], [address], 03/30/2023 10:45:23 03/30/20 23 03/30/2023 COMP. METAB OLIC PANEL bilirubin, total 0.7 mg/dL 0.1-1. 2 normal Not Available [facility] [facility] [address] [place] [address], [address], 03/30/2023 10:45:23 03/30/20 23 03/30/2023 COMP. METAB OLIC PANEL alkaline phosphatase 68 U/L 30-121 normal Not Available [facility] [address] [place] [address], [address], 03/30/2023 10:45:23 03/30/20 23 03/30/2023 COMP. METAB OLIC PANEL AST 17 U/L 0-32 normal Not Available [facility] [address] [place] [address], [address], 03/30/2023 10:45:23 03/30/20 23 03/30/2023 COMP. METAB OLIC PANEL ALT 12 U/L 0-33 normal Not Available [facility] [address] [place] [address], [address], 03/30/2023 10:45:23 03/30/20 23 03/30/2023 COMP. METAB OLIC PANEL GFR 37 >= 60 abnormal NOT E New calcu latio n for GFR (CKD- EPI 2020) is formu lated witho ut race adjus tment facto rs at the recom menda tion of the Lina galindo and Michelle puentes Replaced By [facility] of Nephr ology . This calcu latio n has not been valid ated in pregn ant women . For pedia tric patie nts refer to https ://heike joseph.driss claudio/deep adorno s/YARIO QI/gf r_cal culat orPed Not Available [facility] [address] [place] [address], [phone], 03/30/2023 10:45:23 08/09/19 24 08/09/2023 COMPL ETE BLOOD COUNT white blood cells 9.3 10*3/ uL 3.8-10 .8 normal Not Available [facility] [address] [place], [address], 08/09/2023 15:11:10 08/09/19 24 08/09/2023 COMPL ETE BLOOD COUNT red blood cells 4.31 10*6/ uL 3.80-5 .20 normal Not Available [facility] [address] [place] [address], [address], 08/09/2023 15:11:10 08/09/19 24 08/09/2023 COMPL ETE BLOOD COUNT hemoglobin 12.7 g/dL 12.0-1 6.0 normal Not Available [facility] [address] [place] [address], [address], 08/09/2023 15:11:10 08/09/19 24 08/09/2023 COMPL ETE BLOOD COUNT hematocrit 38.5 % 35.0-4 7.0 normal Not Available [facility] [address] [place] [address], [address], 08/09/2023 15:11:10 08/09/19 24 08/09/2023 COMPL ETE BLOOD COUNT MCV 89 fL 80-100 normal Not Available [facility] [address] [place] [address], [address], 08/09/2023 15:11:10 08/09/19 24 08/09/2023 COMPL ETE BLOOD COUNT MCH 30 pg 26-35 normal Not Available [facility] [address] [place] [address], [address], 08/09/2023 15:11:10 08/09/19 24 08/09/2023 COMPL ETE BLOOD COUNT MCHC 33 g/dL 32-36 normal Not Available [facility] [address] [place] [address], [address], 08/09/2023 15:11:10 08/09/19 24 08/09/2023 COMPL ETE BLOOD COUNT RDW 15.3 % 11.0-1 5.0 high Not Available [facility] [address] [place] [address], [address], 08/09/2023 15:11:10 08/09/19 24 08/09/2023 COMPL ETE BLOOD COUNT MPV 7.8 fL 6.2-10 .5 normal Not Available [facility] [address] [place] [address], [address], 08/09/2023 15:11:10 08/09/19 24 08/09/2023 COMPL ETE BLOOD COUNT platelet count 166 10*3/ uL 150-40 0 normal Not Available [facility] [address] [place] [address], [address], 08/09/2023 15:11:10 08/09/19 24 08/09/2023 COMPL ETE BLOOD COUNT neutrophil,a bsolute 2.7 10*3/ uL 1.6-8. 4 normal Not Available [facility] [address] [place] [address], [address], 08/09/2023 15:11:10 08/09/19 24 08/09/2023 COMPL ETE BLOOD COUNT lymphocyte,a bsolute 5.9 10*3/ uL 0.4-5. 1 high Not Available [facility] [address] [place] [address], [address], 08/09/2023 15:11:10 08/09/19 24 08/09/2023 COMPL ETE BLOOD COUNT monocyte,abs olute 0.7 10*3/ uL 0.0-1. 2 normal Not Available [facility] [address] [place] [address], [address], 08/09/2023 15:11:10 08/09/19 24 08/09/2023 COMPL ETE BLOOD COUNT eosinophil,a bsolute 0.1 10*3/ uL 0.0-0. 8 normal Not Available [facility] [address] [place] [address], [address], 08/09/2023 15:11:10 08/09/19 24 08/09/2023 COMPL ETE BLOOD COUNT basophil,abs olute 0.0 10*3/ uL 0.0-0. 3 normal Not Available [facility] [address] [place] [address], [address], 08/09/2023 15:11:10 08/09/19 24 08/09/2023 COMPL ETE BLOOD COUNT % neutrophils 29.0 % 42.0-7 8.0 low Not Available [facility] [address] [place] [address], [address], 08/09/2023 15:11:10 08/09/19 24 08/09/2023 COMPL ETE BLOOD COUNT % lymphocytes 63.0 % 11.0-4 7.0 high Not Available [facility] [address] [place] [address], [address], 08/09/2023 15:11:10 08/09/19 24 08/09/2023 COMPL ETE BLOOD COUNT % monocytes 7.0 % 0.0-11 .0 normal Not Available [facility] [address] [place] [address], [address], 08/09/2023 15:11:10 08/09/19 24 08/09/2023 COMPL ETE BLOOD COUNT % eosinophils 1.0 % 0.0-7. 0 normal Not Available [facility] [address] [place] [address], [address], 08/09/2023 15:11:10 08/09/19 24 08/09/2023 COMPL ETE BLOOD COUNT % basophils 0.0 % 0.0-3. 0 normal Not Available [facility] [address] [place] [address], [address], 08/09/2023 15:11:10 08/09/19 24 08/09/2023 COMPL ETE BLOOD COUNT nucleated red cells 0.2 % 0.0-0. 9 normal Not Available [facility] [address] [place] [address], [address], 08/09/2023 15:11:10 08/09/19 24 08/09/2023 COMPL ETE BLOOD COUNT nucleated RBCs, absolute 0.02 10*3/ uL not estab. normal Not Available [facility] [address] [place] [address], [address], 08/09/2023 15:11:10 08/09/19 24 08/09/2023 MANUA L DIFFE RENTI AL % band neutrophils 0.0 % 0.0-7. 0 normal Not Available [facility] [address] [place] [address], [address], 08/09/2023 15:11:12 08/09/19 24 08/09/2023 MANUA L DIFFE RENTI AL % atypical lymphocytes 0 % 0-1 normal Not Available [facility] [address] [place] [address], [address], 08/09/2023 15:11:12 08/09/19 24 08/09/2023 MANUA L DIFFE RENTI AL % metamyelocyt es 0 % 0-1 normal Not Available [facility] [address] [place] [address], [address], 08/09/2023 15:11:12 08/09/19 24 08/09/2023 MANUA L DIFFE RENTI AL % myelocytes 0 % 0-1 normal Not Available [facility] [address] [place] [address], [address], 08/09/2023 15:11:12 08/09/19 24 08/09/2023 MANUA L DIFFE RENTI AL % promyelocyte s 0 % 0 normal Not Available [facility] [address] [place] [address], [address], 08/09/2023 15:11:12 08/09/19 24 08/09/2023 MANUA L DIFFE RENTI AL % blast 0 % 0 normal Not Available [facility] [address] [place] [address], [address], 08/09/2023 15:11:12 08/09/19 24 08/09/2023 MANUA L DIFFE RENTI AL nucleated red cells 0 /100{ WBC} 0-1 normal Not Available [facility] [address] [place] [address], [address], 08/09/2023 15:11:12 08/09/19 24 08/09/2023 MANUA L DIFFE RENTI AL smudge cells 0 /100{ WBC} 0 normal Not Available [facility] [address] [place] [address], [address], 08/09/2023 15:11:12 08/09/19 24 08/09/2023 MANUA L DIFFE RENTI AL platelet morphology NORMAL normal Not Available [facility] [address] [place] [address], [address], 08/09/2023 15:11:12 08/09/19 24 08/09/2023 MANUA L DIFFE RENTI AL ovalocytes SLIGHT abnormal Not Available [facility] [address] [place] [address], [address], 08/09/2023 15:11:12 08/09/19 24 08/09/2023 COMP. METAB OLIC PANEL glucose 123 mg/dL 74-100 high Not Available [facility] [address] [place] [address], [address], 08/09/2023 15:28:21 08/09/19 24 08/09/2023 COMP. METAB OLIC PANEL blood urea nitrogen 16 mg/dL 6-20 normal Not Available [facility] [address] [place] [address], [address], 08/09/2023 15:28:21 08/09/19 24 08/09/2023 COMP. METAB OLIC PANEL creatinine 1.40 mg/dL 0.50-0 .95 high Not Available [facility] [address] [place] [address], [address], 08/09/2023 15:28:21 08/09/19 24 08/09/2023 COMP. METAB OLIC PANEL BUN/creatini ne ratio 11 (calc ) 10-20 normal Not Available [facility] [address] [place] [address], [address], 08/09/2023 15:28:21 08/09/19 24 08/09/2023 COMP. METAB OLIC PANEL sodium 139 mmol/ L 136-14 5 normal Not Available [facility] [address] [place] [address], [address], 08/09/2023 15:28:21 08/09/19 24 08/09/2023 COMP. METAB OLIC PANEL potassium 4.4 mmol/ L 3.4-5. 0 normal Not Available [facility] [address] [place] [address], [address], 08/09/2023 15:28:21 08/09/19 24 08/09/2023 COMP. METAB OLIC PANEL chloride 102 mmol/ L 98-107 normal Not Available [facility] [address] [place] [address], [address], 08/09/2023 15:28:21 08/09/19 24 08/09/2023 COMP. METAB OLIC PANEL carbon dioxide 24 mmol/ L 22-31 normal Not Available [facility] [address] [place] [address], [address], 08/09/2023 15:28:21 08/09/19 24 08/09/2023 COMP. METAB OLIC PANEL anion gap 13 (calc ) 7-25 normal Not Available [facility] [address] [place] [address], [address], 08/09/2023 15:28:21 08/09/19 24 08/09/2023 COMP. METAB OLIC PANEL calcium 9.4 mg/dL 8.6-10 .2 normal Not Available [facility] [address] [place] [address], [address], 08/09/2023 15:28:21 08/09/19 24 08/09/2023 COMP. METAB OLIC PANEL total protein 7.5 g/dL 6.4-8. 3 normal Not Available [facility] [address] [place] [address], [address], 08/09/2023 15:28:21 08/09/19 24 08/09/2023 COMP. METAB OLIC PANEL albumin 4.4 g/dL 3.5-5. 2 normal Not Available [facility] [address] [place] [address], [address], 08/09/2023 15:28:21 08/09/19 24 08/09/2023 COMP. METAB OLIC PANEL globulin 3.1 1.5-4. 5 normal Not Available [facility] [address] [place] [address], [address], 08/09/2023 15:28:21 08/09/19 24 08/09/2023 COMP. METAB OLIC PANEL albumin/glob ulin ratio 1.4 (calc ) 1.1-2. 5 normal Not Available [facility] [address] [place] [address], [address], 08/09/2023 15:28:21 08/09/19 24 08/09/2023 COMP. METAB OLIC PANEL bilirubin, total 0.9 mg/dL 0.1-1. 2 normal Not Available [facility] [address] [place] [address], [address], 08/09/2023 15:28:21 08/09/19 24 08/09/2023 COMP. METAB OLIC PANEL alkaline phosphatase 74 U/L 30-121 normal Not Available [facility] [address] [place] [address], [address], 08/09/2023 15:28:21 08/09/19 24 08/09/2023 COMP. METAB OLIC PANEL AST 15 U/L 0-32 normal Not Available [facility] [address] [place] [address], [address], 08/09/2023 15:28:21 08/09/19 24 08/09/2023 COMP. METAB OLIC PANEL ALT 10 U/L 0-33 normal Not Available [facility] [address] [place], [address], 08/09/2023 15:28:21 08/09/19 24 08/09/2023 COMP. METAB OLIC PANEL GFR 38 >= 60 abnormal NOT E New calcu latio n for GFR (CKD- EPI 2020) is formu lated witho ut race adjus tment facto rs at the recom menda tion of the Lina Campoverde y Found atcatherine and Michelle Caldera ty of Nephr ology . This calcu latio n has not been valid ated in pregn ant women . For pedia tric patie nts refer to https ://heike [email or web address] rg/pr ofess ional s/KDO QI/gf r_cal culat orPed Not Available [facility] [address] [place], [address], 08/09/2023 15:28:21 08/09/19 24 08/09/2023 LDH LDH 175 U/L 135-23 3 normal Not Available [facility] [address] [place] [address], [address], 08/09/2023 15:29:25 02/18/20 22 02/05/2022 CT, abdom en + pelvi s, w/ contr ast No observ ation record ed. [email or web address] (Med Record) [address], [place], [address], 05/26/2022 14:25:37 03/30/20 23 03/30/2023 PET-C T, skull base to mid-t high scan formerly [facility] [address] [place] [address], [place] [address] Patien t Name: ABIMAEL IVERSON Patien t : [birth year] Patien t 7 Orderi ng Provid er: LESA COSTA EXAM DATE: 2022 EXAM: PET-CT TUMOR SKULL BASE-M ID THIGH SUB ST CLINIC AL INFORM ATION: Head and Neck Cancer - Restag ing. Dense base cancer . PROCED URE: Baseli ne blood glucos e level was 134 mg/dL. 11.58 mCi F-18 FDG ([facility] [address]381- 0511-3 0) was inject ed IV. After [...] Merida MD on 2022 1:35 PM [email or web address] [facility] [address], [address], 01/27/2024 11:07:00 Result Notes Documentation Provider Name and Address Organization Details Recorded Time Pet-ct, Skull Base To Mid-thigh Scan : [address] [address] Patient Name: SHEA IVERSON Patient : 1945 Patient Ordering Provider: LESA COSTA EXAM DATE: 03/30/2023 EXAM: PET-CT TUMOR SKULL BASE-MID THIGH SUB ST CLINICAL INFORMATION: Head and Neck Cancer - Restaging. Dense base cancer. PROCEDURE: Baseline blood glucose level was 134 mg/dL. 11.58 mCi F-18 FDG ([facility] [id number]) was injected IV. 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 Procedures Surgical History Date Name Laterality Status Provider Name and Address Organization Details Recorded Time 2 Chemo Nurse Assessment completed Alexa Renae [facility] 06/02/2021 16:26:14 Imaging Results None recorded. Procedure Notes None recorded. Medical Equipment None Reported. Allergies Allergen ID Allergen Name Allergen Category Reaction Reaction Severity Criticality Documentation Date Start Date Code Code System Note Provider Name and Address Organization Details Recorded Time 072939 Product containin g 3-hydroxy -3-methyl glutaryl- coenzyme A reductase inhibitor (product) medicatio n Not available Not available Not available 12/26/2018 96118 009 SNOMED Araceli davalos Robert [facility] 9 11:55:37 Medications Name Sig Start [...] weight Body temperature Heart rate Oxygen saturation Systolic And Diastolic Provider Name and Address Organization Details Last Updated DateTime 3 167.64 cm 39.3 kg/m2 500761 g 98.3 [degF] 90 /min 97 % 145/92 mm[Hg] Elizabeth Vázquezchristiaon [facility] 3 14:13:43 Date Recorded Body height Body mass index (BMI) Body weight Body temperature Heart rate Oxygen saturation Systolic And Diastolic Provider Name and Address Organization Details Last Updated DateTime 2 167.64 cm 38.6 kg/m2 549333. 58 g 97.3 [degF] 85 /min 95 % 117/78 mm[Hg] Dinah Colbert [facility] 2 13:27:07 Date Recorded Body height Body mass index (BMI) Body weight Body temperature Pain severity - 0-10 verbal numeric rating [Score] - Reported Heart rate Oxygen saturation Systolic And Diastolic Provider Name and Address Organization Details Last Updated DateTime 3 167.64 cm 37.8 kg/m2 353014. 66 g 97.7 [degF] 0 77 /min 91 % 147/90 mm[Hg] Lucyrhiannon kapoor [facility] 3 13:19:06 Date Recorded Body height Body mass index (BMI) Body weight Body temperature Heart rate Oxygen saturation Systolic And Diastolic Provider Name and Address Organization Details Last Updated DateTime 2 167.64 cm 42.3 kg/m2 348827. 55 g 99.1 [degF] 90 /min 96 % 122/87 mm[Hg] Latoya Gayle [facility] 2 15:25:41 Date Recorded Body height Body mass index (BMI) Body weight Body temperature Heart rate Oxygen saturation Pain severity - 0-10 verbal numeric rating [Score] - Reported Systolic And Diastolic Provider Name and Address Organization Details Last Updated DateTime 2 167.64 cm 40.5 kg/m2 872040. 03 g 98 [degF] 81 /min 96 % 0 129/64 mm[Hg] Lucy kapoor [facility] 14:30:46 Social History Question Answer Notes LastModified by Organizat ion Details LastModified Time Tobacco Smoking Status Former Smoker Skye Ty kylah, [facility] 05/09/2019 13:09:00 How Much Tobacco Do You [...] virus, quadrivalent, preservative 9 completed Skye Ty [facility] 05/09/2019 13:08:41 Influenza, high-dose, quadrivalent, PF 0 completed Skye Ty [facility] 02/19/2020 12:43:10 COVID-19, mRNA, LNP-S, PF, 100 mcg/0.5mL dose or 50 mcg/0.25mL dose 1 completed Skye Ty [facility] 07/01/2020 13:37:46 COVID-19, mRNA, LNP-S, PF, 100 mcg/0.5mL dose or 50 mcg/0.25mL dose 1 completed Skye Ty [facility] 12/02/2020 12:53:26 COVID-19, mRNA, LNP-S, PF, 100 mcg/0.5mL dose or 50 mcg/0.25mL dose 1 completed Dinah Colbert [facility] 08/04/2021 13:23:03 Influenza, high-dose, quadrivalent, PF 1 completed Dinah Colbert [facility] 08/04/2021 13:23:18 pneumococcal polysaccharide PPV23 8 completed Dinah Colbert [facility] 08/04/2021 13:23:32 Pneumococcal conjugate PCV 13 2 completed Dinah Colbert [facility] 08/04/2021 13:24:01 Influenza, split virus, quadrivalent, preservative 2 completed Lucy Gil [facility] 02/17/2022 14:22:09 Past Encounters Encounter ID Performer Location Encounter Start Date Encounter Closed Date Diagnosis/Indication Diagnosis SNOMED-CT Code Diagnosis ICD10 Code Diagnosis IMO Codes Diagnosis Note [id number] LESA COSTA MD HEM/[facility]C [facility] CLOSED [address] [place] [address] 05/11/2016 11:58:36 05/11/2016 14:15:47 [id number] LESA COSTA MD HEM/ONC [facility] CLOSED [address] 6 08/18/2016 12:10:51 08/18/2016 14:21:27 [id number] LESA COSTA MD HEM/ONC [facility] CLOSED [address] [place], [place] [id number] 6 11/17/2016 12:10:53 11/17/2016 13:43:48 [id number] LESA COSTA MD HEM/ONC [facility] CLOSED [address] [place], [place] [id number] 01/11/2017 13:21:52 01/11/2017 14:58:19 [id number] LESA COSTA MD HEM/ONC [facility] CLOSED [address] [place], [place] [id number] 6 05/18/2017 11:39:11 05/18/2017 12:55:13 [id number] LESA COSTA MD HEM/ONC [facility] CLOSED [address] [place] [address] 08/17/2017 12:32:59 08/17/2017 14:27:17 [id number] LESA COSTA MD HEM/ONC [facility] CLOSED [address] [place] [address] 11/09/2017 14:45:25 11/09/2017 15:50:59 [id number] LESA COSTA MD HEM/ONC [facility] CLOSED [address] [place] [address] 12/21/2017 12:04:01 12/21/2017 13:34:16 [id number] LESA COSTA MD HEM/ONC [facility] CLOSED [address] [place] [address] 01/17/2018 12:07:55 01/17/2018 14:11:32 [id number] LESA COSTA MD HEM/ONC [facility] CLOSED [address] [place] [address] 02/15/2018 11:44:26 02/15/2018 13:23:48 [id number] LESA COSTA MD HEM/ONC [facility] CLOSED [address] [place] [address] 03/15/2018 14:36:34 03/15/2018 15:45:06 [id number] GIOVANNI SHAH PA-C CARDIOLOG Y EAST [address] [place] [address] ,[address] [place] [id number] 03/18/2018 10:49:48 03/18/2018 15:10:16 [id number] LESA COSTA MD HEM/ONC [facility] CLOSED [address] [place] [address] 04/18/2018 12:17:31 04/18/2018 14:34:47 [id number] GIOVANNI SHAH PA-C CARDIOLOG Y EAST [address] [place] [address] ,[address] 5 04/22/2018 11:21:47 04/22/2018 12:45:40 [id number] GIOVANNI SHAH PA-C CARDIOLOG Y [address] ,[address] [place] [id number] 05/31/2018 10:11:34 05/31/2018 11:28:40 [id number] LESA COSTA MD HEM/ONC [facility] CLOSED [address] [place] [address] 06/20/2018 09:48:09 06/20/2018 11:39:13 [id number] ADDISON GARSIA JR, MD GENERAL SURGERY [address] [place] [address] 08/02/2018 11:23:01 08/10/2018 08:30:14 [id number] VAN CORNELL MD ECHO VASCULAR LAB CLOSED [address] [place] [address] 08/31/2018 08:24:51 09/02/2018 14:35:45 [id number] GIOVANNI SHAH PA-C CARDIOLOG Y [address] [place],[address] [place] [address] 08/31/2018 08:25:59 08/31/2018 10:39:30 [id number] LESA COSTA MD HEM/ONC [facility] CLOSED [address] [place] [address] 09/19/2018 10:50:22 09/19/2018 12:29:35 [id number] GIOVANNI SHAH PA-C CARDIOLOG Y [address] [place],[address] [place] [address] 10/14/2018 14:37:27 10/14/2018 16:02:28 [id number] GIOVANNI SHAH PA-C CARDIOLOG Y [address] [place]IA,[address] [place] [address] 12/13/2018 13:51:29 12/13/2018 14:51:29 [id number] LESA COSTA MD HEM/ONC SB CLOSED [address] [place] [address] 12/26/2018 11:52:40 12/26/2018 13:36:09 Overweight 817781141 E66.3 Encourage exercise and weight loss. Malignant lymphoma - small lymphocytic [id number] C83.00 Given right supraclavi cular LU, we will obtain CT neck, chest. [id number] LESA COSTA MD HEM/ONC SB CLOSED [address] [place] [address] 05/09/2019 12:55:16 05/09/2019 14:08:42 Overweight 021030821 E66.3 Encourage exercise and weight loss. Malignant lymphoma - small lymphocytic [id number] C83.00 Pt is doing well from this as she has no symptomati c LU or cytopenias . We will reimage in 3 months. I am unsure of the etiology of her symptoms are related to this but to her depression . 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 Pt's labs, exam and scan is stable. She was advised regarding COVID -19 precaution s. 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 76002083 C85.99 As above. Overweight [id number] E66 .3 Encourage exercise and weight loss. Malignant lymphoma - small lymphocytic [id number] C83.00 Pt is doing well from this as she has no symptomati c LU or cytopenias . We will reimage in 3 months pending her PE. [id number] LESA COSTA MD HEM/ONC SB CLOSED [address] [address] [place] [address] 11/28/2019 14:36:02 11/28/2019 15:10:55 Malignant lymphoma of intra-abdominal lymph nodes [id number] C85.93 CLL/SLL. Pt's labs, exam and scan is stable. She was advised regarding COVID -19 precaution s. She will continue on Imbruvica as prescribed . 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 59284199 C85.99 As above. [id number] LESA COSTA MD HEM/ONC SB CLOSED [address] [facility] [address] [place] [address] 02/19/2020 12:36:14 02/19/2020 13:05:30 Malignant lymphoma of intra-abdominal lymph nodes [id number] C85.93 CLL/SLL. Pt's labs, exam and scan is stable 08/25/19. She was advised regarding COVID -19 precaution s. She will continue on Imbruvica as prescribed . Pt is doing well. Pt has received her flu shot. 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 [id number] C85.99 As above. [id number] LESA COSTA MD HEM/ONC SB CLOSED [address] [facility] [address] [place] [address] 07/01/2020 13:29:08 07/01/2020 14:54:44 Malignant lymphoma of intra-abdominal lymph nodes 44153804 C85.93 CLL/SLL. Pt's labs are stable. She was advised regarding COVID -19 precaution s. She will continue on Imbruvica as prescribed . Pt is doing well. Pt has received her flu shot and received her second COVID vaccine 06/28/20. 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 [id number] C85.99 As above. Stasis lidia matitis of lower limb due to chronic peripheral venous hypertension [id number] I87.399 FU with cardiology and PT. [id number] LESA COSTA MD HEM/ONC SB CLOSED [address] [address] [address] [place] [address] 12/02/2020 12:48:15 12/02/2020 13:16:37 Malignant lymphoma of intra-abdominal lymph nodes 69395756 C85.93 CLL/SLL. Pt's labs are pending. She was advised regarding COVID -19 precaution s. She will continue on Imbruvica as prescribed . Pt is doing well. Pt has received her flu shot and received her second COVID vaccine 06/28/20. I have instructed pt to take booster COVID vaccine. 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 47689444 C85.99 As above. Stasis lidia matitis of lower limb due to chronic peripheral venous hypertension [id number] I87.399 FU with cardiology and PT. [id number] LESA COSTA MD HEM/ONC SB CLOSED [address] [facility] [place] [address] 03/31/2021 12:14:48 03/31/2021 13:02:49 Malignant lymphoma of intra-abdominal lymph nodes 11849007 C85.93 CLL/SLL. Pt's labs are pending. She was advised regarding COVID -19 precaution s. She will hold Imbruvica as prescribed given her swelling and to see if that helps. Pt is doing well. Pt has received her flu shot and received her second COVID vaccine 06/28/20. I have instructed pt to take booster COVID vaccine. 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 69102651 C85.99 As above. Stasis lidia matitis of lower limb due to chronic peripheral venous hypertension [id number] I87.399 FU with cardiology and PT. [id number] LESA COSTA MD HEM/ONC SB CLOSED [address] [place] [address] 06/02/2021 12:15:50 06/02/2021 14:29:15 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 17603052 C85.99 As above. Malignant lymphoma of intra-abdominal lymph nodes 81584452 C85.93 CLL/SLL. Pt's labs are reviewed. She [...] limb due to chronic peripheral venous hypertension [id number] I87.399 FU with cardiology and PT. Syncope [id number] R55 I have asked pt to go to ER and she pleasantly declines. I wonder if this is secondary to hypoxemia with ambulation as her oxygen sats dropped in to the 80s. I also wish her to have her brain imaged. We are encouragin g her as well. [id number] LESA COSTA MD HEM/ONC SB CLOSED [address] [place] [address] 06/02/2021 15:53:28 06/02/2021 16:27:08 [id number] LESA COSTA MD HEM/ONC SB CLOSED [address] [place] [address] 08/04/2021 12:58:04 08/04/2021 13:55:28 Malignant lymphoma of intra-abdominal lymph nodes 73100794 C85.93 CLL/SLL. Pt's labs are reviewed. She [...] lymphoma of extranodal AND/OR solid organ site 50273015 C85.99 As above. [id number] LESA COSTA MD HEM/ONC SB CLOSED [address] [facility] [place], [place] [address] 11/18/2021 15:10:29 11/18/2021 16:06:46 Malignant lymphoma of intra-abdominal lymph nodes 14349896 C85.93 CLL/SLL. Pt's labs are reviewed. She was advised regarding COVID -19 precaution s. She will continue to hold Imbruvica as prescribed given her swelling is improved and to see if that helps as her WBC is normal. Pt is doing well. 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 27392961 C85.99 As above. Atrial fibrillation [id number] I48.91 [id number] LESA COSTA MD HEM/ONC SB CLOSED [address] [facility],[address] [place] [address] 02/17/2022 13:13:11 02/17/2022 15:56:55 Malignant lymphoma of intra-abdominal lymph nodes 66472886 C85.93 CLL/SLL. Pt's labs are reviewed. She was advised regarding COVID -19 precaution s. She will continue to hold Imbruvica as prescribed given her swelling is improved and her WBC is normal. Pt is doing well. 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 [id number] C85.99 As above. [id number] LESA COSTA MD HEM/ONC SB CLOSED [address] [facility] [address] [address] [place] [address] 05/26/2022 13:03:54 05/26/2022 14:36:10 Malignant lymphoma of intra-abdominal lymph nodes 50617289 C85.93 CLL/SLL. Pt's labs are reviewed. She was advised regarding COVID -19 precaution s. She will continue to hold Imbruvica as prescribed given her swelling is improved and her WBC is normal. Pt is doing well. 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 [id number] C85.99 As above. History of malignant neoplasm of skin [id number] Z85.828 Obtain pathology. [id number] LESA COSTA MD HEM/ONC SB CLOSED [address] [place] [address] 09/01/2022 12:09:23 09/01/2022 14:15:37 Malignant lymphoma of intra-abdominal lymph nodes 34071477 C85.93 CLL/SLL. Pt's labs are reviewed. She will off all therapies. WBC is normal. Pt is doing well. 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 13539824 C85.99 As above. History of malignant neoplasm of skin [id number] Z85.828 FU dermatolog y. [id number] MACK TORREZ MD ENT SB [address] [place] [address] 01/15/2023 13:08:12 01/15/2023 15:31:51 [id number] MACK TORREZ MD SURGERY SCHEDULE [address] [place] [address] 1 02/22/2023 10:51:07 02/22/2023 10:51:56 [id number] MACK TORREZ MD ENT SB [address] [place], [place] [address] 05/11/2023 12:42:55 05/11/2023 15:23:03 Health Concerns Section Related Observation LastModified by Organization Detai ls LastModified Time None Recorded Concern Status LastModified by Organization Details LastModified Time None Recorded Advance Directives Directive None Recorded Payers Insurance Date Sequence Insurance Name Policy Number Policy Leon Covered Member ID Leon Member ID Guarantor Name 06/05/2024 PAYMENT PLAN Shea Rice 04/06/2025 1 [place] Shea Rice [id number] Shea Rice 05/04/2023 2 [facility] PLAN (MEDICAID REPLACEMENT - HMO) [facility] Shea Rice [id number] Shea Iverson Notes Date Note Type Note Provider Name and Address Organization Details Recorded Time 08/04/2021 text/html HPIReported b y PatientVisit DetailsFor advanced [...] family problems, patient reportsno family problems. For spiritual/spiritism, patient reportsspiritual/religi ous problems? no.NutritionFor nutrition screening, [...] at her last visit. LESA COSTA MD [facility] [place], [address], [place] [facility] 08/04/2021 13:49:19 11/18/2021 text/html HPIReported b y [...] family problems, patient reportsno family problems. For spiritual/spiritism, patient reportsspiritual/religi ous problems? no.NutritionFor nutrition screening, [...] 3 months ago. LESA COSTA MD [address] [place], [address], [place] [facility] 11/18/2021 15:59:20 02/17/2022 text/html HPIReported b y [...] family problems, patient reportsno family problems. For spiritual/spiritism, patient reportsspiritual/religi ous problems? no.NutritionFor nutrition screening, [...] she had a syncope. LESA COSTA MD [address] [place] [address], [phone], [facility] 02/17/2022 14:53:10 05/26/2022 text/html HPIReported b [...] family problems, patient reportsno family problems. For spiritual/spiritism, patient reportsspiritual/religi ous problems? no.NutritionFor nutrition screening, [...] squamous cell carcinoma yesterday. LESA COSTA MD [address] [place] [address], [phone], [facility] 05/26/2022 14:28:01 09/01/2022 text/html HPIReported [...] family problems, patient reportsno family problems. For spiritual/spiritism, patient reportsspiritual/religi ous problems? no.NutritionFor nutrition screening, [...] struggle with LE edema. LESA COSTA MD [address] [place] [address], [phone], [facility] 09/01/2022 13:33:31 OBGyn Episode No OBEpisode recorded.
--- OUTSIDE RECORDS SUMMARY | 2025-04-08 21:50 | XMS_ITS ---
Author Organization [facility] Address [address] 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 Past Treatment and Therapy Plans No past plan information found.
--- OUTSIDE RECORDS SUMMARY | 2025-04-08 21:50 | XMS_ITS | Encounter Summary ---
Author Organization Healthcare Address [address] [place] [address] Care Team Providers Care Pharmacovigilance Scientist Name Role Phone Oren Pressley MD Primary Care Provider [phone] Sima Trejo MD Unavailable [phone] Encounter Details Date Type Department Care Team (Late st Contact Info) Description 05/28[facility]2023 [facility] [address] [place] [address] Dagmar Sewell MD [address] [address] Social History Tobacco Use [...] Description 05/03/2025 8:00 AM EST Office Visit [facility] [address] [place] [address] 05/03/2025 9:00 AM EST Office Visit [facility] [address] [place] [address] Sima Trejo MD [address] [place] [address] 05/03/2025 9:15 AM [facility] [address] [place] [address] documented as of this encounter Visit Diagnoses Not on filedocumented in this encounter Care Teams Pharmacovigilance Scientist Relationship Specialty Start Date End Date Oren Pressley MD [address] [place] [address] PCP - General Internal Medicine 02/09/23 Sima Trejo MD [address] [place] [address] Medical Oncologist Hematology and Oncology 08/02/23 documented as of this encounter
--- OUTSIDE RECORDS SUMMARY | 2025-04-08 21:51 | XMS_ITS | Encounter Summary ---
Author Organization [employer] ([place], [place], [place], [place], [place]) Address [address] [place] [address] Care Team Providers Care Assembly Leader Name Role Phone Oren Pressley MD Primary Care Provider [phone] Encounter Details Date Type Department Care Team (Late st Contact Info) Description 06/22/2019 Transcribed Document [facility] Family [place] [address] ProviderLaurel MD [address] [place] [id number] Social History Tobacco Use Types Packs/Day Years Used Date Smoking Tobacco: Never Assessed Comments Unknown Sex and Gender Information Value Date Recorded Sex Assigned at Not on file Legal Sex Female 4:44 PM CDT Gender Identity Not on file Sexual Orientation Not on file documented as of this encounter Miscellaneous Notes * Cerner Conversion Note - Laurel Mayer MD - 06/22/2019 12:28 PM LEAD APPLIER Patient Education Materials Follows: Electrical Cardioversion, Care [...] to help you relax (sedative). ??? Take zpum-spi-vaufggh and prescription medicines only as told by [...] 01/24/2014 Document Revised: 11/06/2016 Document Reviewed: 10/09/2016 [employer] Interactive Patient Education ? 2019 [employer]. Moderate Conscious Sedation, Adult, Care After These [...] you are awake and alert. ??? Take tubk-wlj-qzqdfuk and prescription medicines only as told by [...] 01/24/2014 Document Revised: 09/07/2016 Document Reviewed: 07/25/2016 [employer] Interactive Patient Education ? 2019 [employer]. documented in this encounter Plan of Treatment Not on file documented as of this encounter Visit Diagnoses Not on filedocumented in this encounter Care Teams Assembly Leader Relationship Specialty Start Date End Date Oren Pressley MD [address] [place] [address] [place] [address] PCP - General Adolescent Medicine 05/17/23 documented as of this encounter
--- OUTSIDE RECORDS SUMMARY | 2025-04-08 21:51 | XMS_ITS | Encounter Summary ---
Author Organization Healthcare Address [address] [place] [address] Care Team Providers Care Facility Practice Specialist Name Role Phone Pcp, No Primary Care Provider Oren Hull MD Primary Care Provider Sima Trejo MD Unavailable [phone] Encounter Details Date Type Department Care Team (Late st Contact Info) Description 05/26/2022 Orders Only [facility] at [facility] [address] [place] [address] Sima Trejo MD [address] [address] Social History Tobacco Use Types [...] Description 05/03/2025 8:00 AM EST Office Visit [facility] [address] [place] [address] 05/03/2025 9:00 AM EST Office Visit [facility] [address] [place] [address] Sima Trejo MD [address] [place] [address] [address] (work) 05/03/2025 9:15 AM EST Infusion [facility] [place] [address] documented as of this encounter Procedures Procedure Name Priority Date/Time Associated Diagnosis Comments CBC WITH AUTO DIFFERENTIAL Routine 05/26/2022 1:07 PM EST documented in this encounter Results * (ABNORMAL) CBC and Differential (05/26/2022 1:07 PM EST) External WBC 5.6 3.8 - 10.8 K/uL [facility] External Red Blood Cell (RBC) 4.06 3.80 - 5.20 M/uL [facility] External Hemoglobin 12.0 12.0 - 16.0 G/DL [facility] External Hematocrit 36.0 35.0 - 47.0 % [facility] External MCV 89 80 - 100 fL [facility] External MCH 30 26 - 35 PG [facility] External MCHC 33 32 - 36 G/DL [facility] External RDW 15.9(H) 11.0 - 15.0 % [facility] External Mean Platelet Volume 7.5 6.2 - 10.5 fL [facility] External Platelets 176 130 - 400 K/uL [facility] External Neutrophil# 3.3 1.6 - 8.4 K/uL [facility] External Lymphocyte# 1.7 0.4 - 5.1 K/uL [facility] External Absolute Monocyte (Abs [place]) 0.5 0.0 - 1.2 K/uL [facility] External Eosinophils# 0.1 0.0 - 0.8 K/uL [facility] External Baso# 0.0 0.0 - 0.3 K/uL [facility] External Neutrophils % 59.0 42.0 - 78.0 % [facility] External Lymphocyte % 30.6 11.0 - 47.0 % [facility] External Monocyte % 8.1 0.0 - 11.0 % [facility] External Eosinophil% 1.7 0.0 - 7.0 % [facility] External Basophil % 0.6 0.0 - 3.0 % [facility] External Nucleated RBC%-Auto 0.0 0.0 - 0.9 % [facility] External Nucleated RBC Absolute 0.00 Not Estab. K/uL [facility] 05/26/2022 1:07 PM EST 05/26/2022 1:20 PM EST Sima Trejo MD LAB BLOOD ORDERABLES Final Re sult [facility] [address] [place] [address], documented in this encounter Visit Diagnoses Not on filedocumented in this encounter Care Teams Facility Practice Specialist Relationship Specialty Start Date End Date Pcp, No [address] [place] [address] PCP - General 12/02/20 02/08/23 Oren Pressley MD [address] [place] [address] PCP - General Internal Medicine 02/09/23 Sima Trejo MD [address] [address] Medical Oncologist Hematology and Oncology 08/02/23 documented as of this encounter
--- OUTSIDE RECORDS SUMMARY | 2025-04-08 21:51 | XMS_ITS | Encounter Summary ---
Author Organization Healthcare Address [address] [place] [address] Care Team Providers Care Manager People Name Role Phone Pcp, No Primary Care Provider Oren Hull MD Primary Care Provider Sima Trejo MD Unavailable [phone] Encounter Details Date Type Department Care Team (Late st Contact Info) Description 03/31/2021 Orders Only [facility] [address] [place] [address] Sima Trejo MD [address] [address] Social History Tobacco Use Types [...] Description 05/03/2025 8:00 AM EST Office Visit [facility] [address] [place] [address] 05/03/2025 9:00 AM EST Office Visit [facility] [address] [place] [address] Sima Trejo MD [address] [place] [address] 05/03/2025 9:15 AM EST Infusion [facility] [place] [address] documented as of this encounter Procedures Procedure Name Priority Date/Time Associated Diagnosis Comments COMPREHENSIVE METABOLIC PANEL, PLASMA Routine 03/31/2021 12:13 PM EST documented in this encounter Results * (ABNORMAL) Comprehensive Metabolic Panel, Plasma (03/31/2021 12:13 PM EST) External Glucose 113(H) 74 - 100 mg/dL [facility] External BUN 41(H) 6 - 20 mg/dL [facility] External Creatinine Blood 1.91(H) 0.50 - 0.95 mg/dL [facility] External BUN/Creat Ratio 21(H) 10 - 20 (calc) [facility] External Sodium 136 136 - 145 mmol/L [facility] External Potassium 4.9 3.4 - 5.0 mmol/L [facility] External Chloride 99 98 - 107 mmol/L [facility] External Carbon Dioxide 26 22 - 31 mmol/L [facility] External Anion Gap (AG) 11 7 - 25 (calc) [facility] External Calcium 9.3 8.6 - 10.2 mg/dL [facility] External Total Protein 6.7 6.4 - 8.3 g/dL [facility] External Albumin 4.4 3.5 - 5.2 g/dL [facility] External Globulin 2.3 1.5 - 4.5 g/dL (calc) [facility] External Albumin/Globulin Ratio 1.9 1.1 - 2.5 (calc) [facility] External Bilirubin Total 0.4 0.1 - 1.2 mg/dL [facility] External Alkaline Phosphatase 54 30 - 121 U/L [facility] External AST (SGOT) 15 0 - 32 U/L [facility] External ALT (SGPT) 12 0 - 33 U/L [facility] External EGFR (If AFR/AM) 29(A) >=60 [facility] External Estimated GFR 25(A) >=60 [facility] Comment: NOTE Chronic kidney [...] MD LAB BLOOD ORDERABLES Final Re sult [facility] [address] [place] [address], documented in this encounter Visit Diagnoses Not on filedocumented in this encounter Care Teams Manager People Relationship Specialty Start Date End Date Pcp, No [address] [place] [address] PCP - General 12/02/20 02/08/23 Oren Pressley MD [address] [facility] [address] [place] [address] PCP - General Internal Medicine 02/09/23 Sima Trejo MD [address] [address] Medical Oncologist Hematology and Oncology 08/02/23 documented as of this encounter
--- OUTSIDE RECORDS SUMMARY | 2025-04-08 21:51 | XMS_ITS | Encounter Summary ---
Author Organization [employer] ([place], [place], [place], [place], [place]) Address [address] [place] [address] Care Team Providers Care Milk Drying Machine Operator Name Role Phone Oren Corbin MD Primary Care Provider [phone] Encounter Details Date Type Department Care Team (Late st Contact Info) Description 05/16/2018 Transcribed Document [facility] [place] [facility] [address] [place] [address] ProviderLaurel MD [address] [place] [address] Social History Tobacco Use Types Packs/Day Years Used Date Smoking Tobacco: Never Assessed Comments Unknown Sex and Gender Information Value Date Recorded Sex Assigned at Not on file Legal Sex Female 4:44 PM CDT Gender Identity Not on file Sexual Orientation Not on file documented as of this encounter Miscellaneous Notes * Cerner Conversion Note - Laurel ProviderMD - 05/16/2018 10:30 AM TECHNICAL DATA ANALYST [address] , [place] [address] Patient Copy Patient Information: Name: [facility] Current Date: 05/16/2018 10:30:23 : 1945 Patient Address: [place] [address] Patient Attending Physician: TAMIKO NIETO MD-DMITRY Primary Care Provider: OREN CORBIN (REF)DELILAH Primary Care Provider Discharge Diagnosis: Atrial fibrillation Weight on Admission: 230 lb, 0 oz Comment: Follow-up Instructions: With: Address: When: GIOVANNI SHAH [address], SE[facility] CARDIOLOG[facility] [place] [id number] Business (1) Within 1 month Discharge Instructions: [...] you are awake and alert. ??? Take tkvw-mpf-pemtvyh and prescription medicines only as told by [...] 01/24/2014 Document Revised: 09/07/2016 Document Reviewed: 07/25/2016 [employer] Interactive Patient Education ? 2017 [employer] Electrical Cardioversion, Care After This sheet [...] to help you relax (sedative). ??? Take ddli-fda-edpmjby and prescription medicines only as told by [...] 01/24/2014 Document Revised: 11/06/2016 Document Reviewed: 10/09/2016 [employer] Interactive Patient Education ? 2017 [employer]. Medication Leaflets: amiodarone (oral) (A mi [place] [...] products. Avoid taking an herbal supplement containing Lukachukai's wort. Amiodarone could make you sunburn more [...] may report side effects to FDA at 0-664-GQP-5993. What other drugs will affect amiodarone? Sometimes [...] can affect amiodarone. This includes prescription and mwgh-nrr-yxolrxo medicines, vitamins, and herbal products. Not all [...] to ensure that the information provided by [employer]. ('[employer]') is accurate, up-to-date, and complete, but no guarantee is made to that effect. Drug information contained herein may be time sensitive. [employer] information has been compiled for use by healthcare practitioners and consumers in the [place] and therefore [employer] does not warrant that uses outside of the [place] are appropriate, unless specifically indicated otherwise. [employer]'s drug information does not endorse drugs, diagnose patients or recommend therapy. [employer] drug information is an informational resource designed [...] effective or appropriate for any given patient. [employer] does not assume any responsibility for any aspect of healthcare administered with the aid of information [employer] provides. The information contained herein is not intended to cover all possible uses, directions, precautions, warnings, drug interactions, allergic reactions, or adverse effects. If you have questions about the drugs you are taking, check with your doctor, nurse or pharmacist. Copyright 6982-6758 [employer]. Version: 7.01. Revision Date: 02/22/2018. CIGARETTE SMOKING: The facts are clear, cigarette smoking will shorten your life. Smoking can cause many illnesses along the way. As a healthcare provider, we recommend that you stop smoking. Assistance with quitting is available by contacting 1-738-DCNK-NOW. This is a free resource providing counseling, [...] Be sure to sign up for the [employer] patient portal, which gives you 09/11 access to your medical information ??? including these discharge instructions ??? using your computer, smartphone, or tablet. Just go to [employer] to get started. Questions? Call . [facility] would like to thank you for allowing us to assist you with your healthcare needs. CARL Hopson PRISCILLA SMI, (or sales representative trainee) have received the above patient education materials/instructions and have verbalized understanding: Patient Signature _ Date/Time Patient Java Manager Signature (if needed) Date/Time Clinician/Hospital Java Manager Signature (if needed) Date/Time Electronically signed by Interface, [facility] Conversion Breakfast Host Cerner at 08/07/2022 2:22 PM CDT documented in this encounter Plan of Treatment Not on file documented as of this encounter Visit Diagnoses Not on filedocumented in this encounter Care Teams Milk Drying Machine Operator Relationship Specialty Start Date End Date Oren Corbin MD [address] [place] [address] [place] [address] PCP - General Adolescent Medicine 05/17/23 documented as of this encounter
--- OUTSIDE RECORDS SUMMARY | 2025-04-08 21:51 | XMS_ITS | Encounter Summary ---
Author Organization Healthcare Address [address] [place] [address] Care Team Providers Care Sheep Herder Name Role Phone Pcp, No Primary Care Provider Oren Hull MD Primary Care Provider Sima Trejo MD Unavailable [phone] Encounter Details Date Type Department Care Team (Late st Contact Info) Description 02/17/2022 Orders Only [facility] at [facility] [address] [place] [address] Sima Trejo MD [address] [address] Social History Tobacco Use [...] EST Office Visit [facility] [address] [place] [address] 05/03/2025 9:00 AM EST Office Visit [facility] [address] [place] [address] Sima Trejo MD [address] [address] 05/03/2025 9:15 AM EST Infusion [facility] [address] [place] [address] documented as of this encounter Procedures Procedure Name Priority Date/Time Associated Diagnosis Comments URIC ACID, PLASMA Routine 02/17/2022 12: 42 PM EDT documented in this encounter Results * (ABNORMAL) Uric Acid, Plasma (02/17/2022 12:42 PM EDT) External Uric Acid 7.5(H) 2.4 - 5.7 mg/dL [facility] Comment: Reference ranges are based on population norms and do not necessarily correlate with treatment targets. In patients with an established diagnosis of gout undergoing Urate Lowering Therapy (ULT), the 2012 [employer] Guidelines for Management of Gout recommend a target uric acid level of < 6 mg/dL in all patients, or lower in certain circumstances. Arthritis Care and Research Vol 64 No , Jan. 2012 [employer] 02/17/2022 12:4 2 PM EDT 02/17/2022 12:54 PM EDT us Sima Trejo MD LAB BLOOD ORDERABLES Final Re sult [facility] [address] [place] [address], documented in this encounter Visit Diagnoses Not on filedocumented in this encounter Care Teams Sheep Herder Relationship Specialty Start Date End Date Pcp, No [address] [place] [address] PCP - General 12/02/20 02/08/23 Oren Pressley MD [address] [place] [address] PCP - General Internal Medicine 02/09/23 Sima Trejo MD [address] [address] Medical Oncologist Hematology and Oncology 08/02/23 documented as of this encounter
--- OUTSIDE RECORDS SUMMARY | 2025-04-08 21:51 | XMS_ITS | Encounter Summary ---
Author Organization Healthcare Address [address] [place] [address] Care Team Providers Care Genetic Supervisor Name Role Phone Pcp, No Primary Care Provider Oren Hull MD Primary Care Provider Sima Trejo MD Unavailable [phone] Encounter Details Date Type Department Care Team (Late st Contact Info) Description 03/31/2021 Orders Only [facility] [address] [place] [address] Sima Trejo MD [address] [address] Social History Tobacco Use [...] Description 05/03/2025 8:00 AM EST Office Visit [facility] [address] [place] [address] 05/03/2025 9:00 AM EST Office Visit [facility] [address] [place] [address] Sima Trejo MD [address] [address] 05/03/2025 9:15 AM EST Infusion [facility] [address] [place] [address] documented as of this encounter Procedures Procedure Name Priority Date/Time Associated Diagnosis Comments LACTATE DEHYDROGENASE, PLASMA Routine 03/31/2021 12:13 PM EST documented in this encounter Results * Lactate Dehydrogenase, Plasma (03/31/2021 12:13 PM EST) External LDH Lactate Dehydrogenase 177 135 - 233 U/L [facility] 03/31/2021 12:1 3 PM EST 03/31/2021 1:17 PM EST us Sima Trejo MD LAB BLOOD ORDERABLES Final Re sult [facility] [address] [place] [address], documented in this encounter Visit Diagnoses Not on filedocumented in this encounter Care Teams Genetic Supervisor Relationship Specialty Start Date End Date Pcp, No [address] [place] [address] PCP - General 12/02/20 02/08/23 Oren Pressley MD [address] [place] [address] PCP - General Internal Medicine 02/09/23 Sima Trejo MD [address] [address] Medical Oncologist Hematology and Oncology 08/02/23 documented as of this encounter
--- OUTSIDE RECORDS SUMMARY | 2025-04-08 21:51 | XMS_ITS | Encounter Summary ---
Author Organization [employer] ([place], [place], [place], [place], [place]) Address [address] [place] [address] Care Team Providers Care Technical Marketing Consultant Name Role Phone Oren Pressley MD Primary Care Provider + [phone] Encounter Details Date Type Department Care Team (Late st Contact Info) Description 05/16/2018 Transcribed Document [facility] [place] [address] ProviderLaurel MD [address] [place] [id number] Social History Tobacco Use Types Packs/Day Years Used Date Smoking Tobacco: Never Assessed Comments Unknown Sex and Gender Information Value Date Recorded Sex Assigned at Not on file Legal Sex Female 4:44 PM CDT Gender Identity Not on file Sexual Orientation Not on file documented as of this encounter Miscellaneous Notes * Cerner Conversion Note - Historical ProviderMD - 05/16/2018 10:[address] SQL PROGRAMMER Event Note Entered On: 05/16/2018 10:25 EST [...] on filedocumented in this encounter Care Teams Technical Marketing Consultant Relationship Specialty Start Date End Date Oren Pressley MD [address] [place] [address] PCP - General Adolescent Medicine 05/17/23 documented as of this encounter
--- OUTSIDE RECORDS SUMMARY | 2025-04-08 21:51 | XMS_ITS | Encounter Summary ---
Author Organization [employer] ([place], [place], [place], [place], [place]) Address [address] [place] [address] Care Team Providers Care Cafeteria Manager Name Role Phone Oren Pressley MD Primary Care Provider + [phone] Encounter Details Date Type Department Care Team (Late st Contact Info) Description 05/16/2018 Transcribed Document [facility] [place] [facility] [place] [address] ProviderLaurel MD [address] [place] [id number] Social History Tobacco Use Types Packs/Day Years Used Date Smoking Tobacco: Never Assessed Comments Unknown Sex and Gender Information Value Date Recorded Sex Assigned at Not on file Legal Sex Female 4:44 PM CDT Gender Identity Not on file Sexual Orientation Not on file documented as of this encounter Miscellaneous Notes * Cerner Conversion Note - Historical ProviderMD - 05/16/2018 10:28 AM RESIDENT PHYSICIAN Nursing Discharge Summary Entered On: 05/16/2018 10:29 EST Performed On: 05/16/2018 10:28 EST by KASSIDY SAWYER, data reduction technician Documentation Discharge Date/Time : 05/16/2018 12:09 EST [...] - 05/16/2018 10:28 EST Electronically signed by Kemal Zamudio Conversion Business And Services Instructor Cerner at 08/07/2022 2:09 PM CDT documented in this encounter Plan of Treatment Not on file documented as of this encounter Visit Diagnoses Not on filedocumented in this encounter Care Teams Cafeteria Manager Relationship Specialty Start Date End Date Oren Pressley MD [address] [place] [address] PCP - General Adolescent Medicine 05/17/23 documented as of this encounter
--- OUTSIDE RECORDS SUMMARY | 2025-04-08 21:51 | XMS_ITS | Encounter Summary ---
Author Organization Healthcare Address [address] [place] [address] Care Team Providers Care Hogshead Roller Name Role Phone Pcp, No Primary Care Provider Oren Hull MD Primary Care Provider Sima Trejo MD Unavailable [phone] Encounter Details Date Type Department Care Team (Late st Contact Info) Description 06/02/2021 Orders Only [facility] [address] [place] [address] Sima Trejo MD [address] [address] Social History Tobacco Use [...] Description 05/03/2025 8:00 AM EST Office Visit [facility] [address] [place] [address] 05/03/2025 9:00 AM EST Office Visit [facility] [address] [place] [address] Sima Trejo MD [address] [address] 05/03/2025 9:15 AM EST Infusion [facility] [place] [address] documented as of this encounter Procedures Procedure Name Priority Date/Time Associated Diagnosis Comments COMPREHENSIVE METABOLIC PANEL, PLASMA Routine 06/02/2021 12:06 PM EST documented in this encounter Results * (ABNORMAL) Comprehensive Metabolic Panel, Plasma (06/02/2021 12:06 PM EST) External Glucose 119(H) 74 - 100 mg/dL [facility] External BUN 27(H) 6 - 20 mg/dL [facility] External Creatinine Blood 1.62(H) 0.50 - 0.95 mg/dL [facility] External BUN/Creat Ratio 17 10 - 20 (calc) [facility] External Sodium 142 136 - 145 mmol/L [facility] External Potassium 4.3 3.4 - 5.0 mmol/L [facility] External Chloride 103 98 - 107 mmol/L [facility] External Carbon Dioxide 24 22 - 31 mmol/L [facility] External Anion Gap (AG) 15 7 - 25 (calc) [facility] External Calcium 9.3 8.6 - 10.2 mg/dL [facility] External Total Protein 6.4 6.4 - 8.3 g/dL [facility] External Albumin 4.4 3.5 - 5.2 g/dL [facility] External Globulin 2.0 1.5 - 4.5 g/dL (calc) [facility] External Albumin/Globulin Ratio 2.2 1.1 - 2.5 (calc) [facility] External Bilirubin Total 0.3 0.1 - 1.2 mg/dL [facility] External Alkaline Phosphatase 82 30 - 121 U/L [facility] External AST (SGOT) 17 0 - 32 U/L [facility] External ALT (SGPT) 17 0 - 33 U/L [facility] External EGFR (If AFR/AM) 35(A) >=60 [facility] External Estimated GFR 30(A) >=60 [facility] Comment: NOTE Chronic kidney disease [...] Re sult [facility] [address] [place] [address], documented in this encounter Visit Diagnoses Not on filedocumented in this encounter Care Teams Hogshead Roller Relationship Specialty Start Date End Date Pcp, No [address] [place] [address] PCP - General 12/02/20 02/08/23 Oren Pressley MD [address] [facility] [address] [place] [address] PCP - General Internal Medicine 02/09/23 Sima Trejo MD [address] [address] Medical Oncologist Hematology and Oncology 08/02/23 documented as of this encounter
--- OUTSIDE RECORDS SUMMARY | 2025-04-08 21:51 | XMS_ITS | Encounter Summary ---
Author Organization Healthcare Address [address] 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); History of non-Hodgkin's lymphoma Social History Tobacco [...] 05/03/2025 8:00 AM EST Office Visit [facility] [address] [place] [address] 05/03/2025 9:00 AM EST Office Visit [facility] [address] [place] [address] Sima Trejo MD [address] [phone] 05/03/2025 9:15 AM EST Infusion [facility] [address] [place] [address] documented as of this encounter Procedures Procedure Name Priority Date/Time Associated Diagnosis Comments CBC WITH AUTO DIFFERENTIAL STAT 04/05/2025 7:43 AM EST CLL (chronic lymphoid leukemia) in relapse ([facility]/HCC) URIC ACID, PLASMA STAT 04/05/2025 7:4 3 AM EST CLL (chronic lymphoid leukemia) in relapse ([facility]/HCC) History of non-Hodgkin's lymphoma LACTATE DEHYDROGENASE, PLASMA STAT 04/05/2025 7:43 AM EST 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) History of non-Hodgkin's lymphoma COMPREHENSIVE METABOLIC PANEL, PLASMA STAT 04/05/2025 7:43 AM EST 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 In patients with an established diagnosis of gout undergoing Urate Lowering Therapy (ULT), the 2012 [place] [employer] Guidelines for Management of Gout recommend a target uric acid level of < 6 mg/dL in all patients, or lower in certain circumstances. Arthritis Care and Research Vol 64 No 10, 2011 [place] [employer] Blood Venous blood specimen / Unknown 04/05/2025 7:43 AM EST 04/05/2025 8:14 AM EST Sima Trejo MD LAB BLOOD ORDERABLES Final Re sult Performing Organization Address City/[facility]/ZIP Co de Phone Number [facility] [address] [place] [address], * Lactate Dehydrogenase, Plasma (04/05/2025 7:43 AM EST) External LDH Lactate Dehydrogenase 182 135 - 233 U/L 04/05/2025 8:53 AM EST [facility] Blood Venous blood specimen / Unknown 04/05/2025 7:43 AM EST 04/05/2025 8:35 AM EST Sima Trejo MD LAB BLOOD ORDERABLES Final Re sult Performing Organization Address [facility]/ZIP Co de Phone Number [facility] [address] [place] [address], * (ABNORMAL) Comprehensive metabolic panel (04/05/2025 7:43 AM EST) External Glucose 125(H) 74 - 100 mg/dL 04/05/2025 8:41 AM [facility] External BUN 17 6 - 20 mg/dL 04/05/2025 8:41 AM [facility] External Creatinine Blood 1.44(H) 0.50 - 0.95 mg/dL 04/05/2025 8:41 AM [facility] External BUN/Creat Ratio 12 10 - 20 (calc) 04/05/2025 8:41 AM [facility] External Sodium 137 136 - 145 mmol/L 04/05/2025 8:41 AM [facility] External Potassium 4.0 3.4 - 5.0 mmol/L 04/05/2025 8:41 AM [facility] External Chloride 102 98 - 107 mmol/L 04/05/2025 8:41 AM [facility] External Carbon Dioxide (CO2) 23 22 - 31 mmol/L 04/05/2025 8:41 AM [facility] External Anion Gap (AG) 12 7 - 25 (calc) 04/05/2025 8:41 AM [facility] External Calcium 9.0 8.6 - 10.2 mg/dL 04/05/2025 8:41 AM [facility] External Total Protein 6.4 6.4 - 8.3 g/dL 04/05/2025 8:41 AM [facility] External Albumin 4.0 3.5 - 5.2 g/dL 04/05/2025 8:41 AM [facility] External Globulin 2.4 1.5 - 4.5 025 8:41 AM [facility] External Albumin/Globulin Ratio 1.7 1.1 - 2.5 (calc) 04/05/2025 8:41 AM [facility] External Bilirubin Total 0.7 0.1 - 1.0 mg/dL 04/05/2025 8:41 AM [facility] Comment:NOTE: New reference range. External Alkaline Phosphatase 72 30 - 121 U/L 04/05/2025 8:41 AM [facility] External AST (SGOT) 18 0 - 32 U/L 04/05/2025 8:41 AM [facility] External ALT (SGPT) 12 0 - 33 U/L 04/05/2025 8:41 AM EST [facility] External Estimated GFR 36(A) >=60 04/05/2025 8:41 AM EST [facility] Comment: NOTE New calculation for GFR (CKD-EPI 2020) is formulated without race adjustment factors at the recommendation of the National Kidney Foundation and [place] [employer]. This calculation has not been validated in women. For pediatric patients refer to https://www.kidney.org/professionals/KDOQI/gfr_calculatorPed Blood Venous blood specimen / Unknown 04/05/2025 7:43 AM EST 04/05/2025 8:14 AM EST us Sima Trejo MD LAB BLOOD ORDERABLES Final Re sult [facility] [address] [place] [address], * (ABNORMAL) CBC and differential (04/05/2025 7:43 AM EST) External WBC 5.5 3.8 - 10.8 10*3/uL 04/05/2025 8:28 AM EST [facility] External Red Blood Cell (RBC) 3.44(L) 3.80 - 5.20 10*6/uL 04/05/2025 8:28 AM EST [facility] External Hemoglobin 11.2(L) 12.0 - 16.0 g/dL 04/05/2025 8:28 AM EST [facility] External Hematocrit 33.2(L) 35.0 - 47.0 % 04/05/2025 8:28 AM EST [facility] External MCV 97 80 - 100 fL 04/05/2025 8:28 AM EST [facility] External MCH 33 26 - 35 pg 04/05/2025 8:28 AM EST [facility] External MCHC 34 32 - 36 g/dL 04/05/2025 8:28 AM EST [facility] External RDW 15.9(H) 11.0 - 15.0 % 04/05/2025 8:28 AM EST [facility] External Mean Platelet Volume 8.1 6.2 - 10.5 fL 04/05/2025 8:28 AM EST [facility] External Platelet Count (Plt) 127(L) 150 - 400 10*3/uL 04/05/2025 8:28 AM EST [facility] External Neutrophil# 3.5 1.6 - 8.4 10*3/uL 04/05/2025 8:28 AM EST [facility] External Lymphocyte# 1.3 0.4 - 5.1 10*3/uL 04/05/2025 8:28 AM EST [facility] External Absolute Monocyte (Abs Putnam) 0.5 0.0 - 1.2 10*3/uL 04/05/2025 8:28 AM EST [facility] External Eosinophils# 0.2 0.0 - 0.8 10*3/uL 04/05/2025 8:28 AM EST [facility] External Baso# 0.1 0.0 - 0.3 10*3/uL 04/05/2025 8:28 AM EST [facility] External Neutrophils % 64.0 42.0 - 78.0 % 04/05/2025 8:28 AM EST [facility] External Lymphocyte % 23.0 11.0 - 47.0 % 04/05/2025 8:28 AM EST [facility] External Monocyte % 8.8 0.0 - 11.0 % 04/05/2025 8:28 AM EST [facility] External Eosinophil% 3.1 0.0 - 7.0 % 04/05/2025 8:28 AM EST [facility] External Basophil % 1.1 0.0 - 3.0 % 04/05/2025 8:28 AM EST [facility] External Nucleated RBC%-Auto 0.1 0.0 - 0.9 % 04/05/2025 8:28 AM EST [facility] External Nucleated RBC Absolute 0.00 Not Estab. 10*3/uL 04/05/2025 8:28 AM [facility] Blood Venous blood specimen / Unknown 04/05/2025 7:43 AM EST 04/05/2025 8:14 AM EST us Sima Trejo MD LAB BLOOD ORDERABLES Final Re sult [facility] [address] [place] [address], documented in this encounter Visit Diagnoses Diagnosis [...] documented as of this encounter Care Teams Airline Operations Agent Relationship Specialty Start Date End Date Oren Pressley MD [address] [place] [address] PCP - General Internal Medicine 02/09/23 Sima Trejo MD [address] [place] [address] [address] Medical Oncologist Hematology and Oncology 08/02/23 documented as of this encounter
--- OUTSIDE RECORDS SUMMARY | 2025-04-08 21:51 | XMS_ITS | Encounter Summary ---
Author Organization Healthcare Address [address] [place] [address] Care Team Providers Care Director Of Business Operations Name Role Phone Pcp, No Primary Care Provider Oren Hull MD Primary Care Provider Sima Trejo MD Unavailable [phone] Encounter Details Date Type Department Care Team (Late st Contact Info) Description 02/17/2022 Orders Only [facility] [address] [place] [address] Sima Trejo MD [address] [address] Social History Tobacco Use Types [...] 05/03/2025 8:00 AM EST Office Visit [facility] [address] [place] [address] 05/03/2025 9:00 AM EST Office Visit [facility] [address] [place] [address] Sima Trejo MD [address] [address] 05/03/2025 9:15 AM EST Infusion [facility] [address] [place] [address] documented as of this encounter Procedures Procedure Name Priority Date/Time Associated Diagnosis Comments LACTATE DEHYDROGENASE, PLASMA Routine 02/17/2022 12:42 PM EDT documented in this encounter Results * Lactate Dehydrogenase, Plasma (02/17/2022 12:42 PM EDT) External LDH Lactate Dehydrogenase 163 135 - 233 U/L [facility] 02/17/2022 12:4 2 PM EDT 02/17/2022 12:54 PM EDT us Sima Trejo MD LAB BLOOD ORDERABLES Final Re sult Performing Organization Address City/State/[facility] Co de Phone Number [facility] [address] [place] [address], documented in this encounter Visit Diagnoses Not on filedocumented in this encounter Care Teams Director Of Business Operations Relationship Specialty Start Date End Date Pcp, No [address] [place] [address] PCP - General 12/02/20 02/08/23 Oren Pressley MD [address] [place] [address] PCP - General Internal Medicine 02/09/23 Sima Trejo MD [address] [address] Medical Oncologist Hematology and Oncology 08/02/23 documented as of this encounter
--- OUTSIDE RECORDS SUMMARY | 2025-04-08 21:51 | XMS_ITS | Encounter Summary ---
Author Organization Healthcare Address [address] [place] [address] Care Team Providers Care Incident Handler Name Role Phone Pcp, No Primary Care Provider Oren Hull MD Primary Care Provider Sima Trejo MD Unavailable [phone] Encounter Details Date Type Department Care Team (Late st Contact Info) Description 08/04/2021 Orders Only [facility] [address] [place] [address] Sima Trejo MD [address] [address] Social History Tobacco Use Types [...] Description 05/03/2025 8:00 AM EST Office Visit [facility] [address] [place] [address] 05/03/2025 9:00 AM EST Office Visit [facility] [address] [place] [address] Sima Trejo MD [address] [address] [address] 05/03/2025 9:15 AM EST Infusion [facility] [address] [place] [address] documented as of this encounter Procedures Procedure Name Priority Date/Time Associated Diagnosis Comments LACTATE DEHYDROGENASE, PLASMA Routine 08/04/2021 12:43 PM EDT documented in this encounter Results * Lactate Dehydrogenase, Plasma (08/04/2021 12:43 PM EDT) External LDH Lactate Dehydrogenase 187 135 - 233 U/L [facility] 08/04/2021 12:4 3 PM EDT 08/04/2021 1:07 PM EDT us Sima Trejo MD LAB BLOOD ORDERABLES Final Re sult Performing Organization Address City/State/[facility] Co de Phone Number [facility] [address] [place] [address], documented in this encounter Visit Diagnoses Not on filedocumented in this encounter Care Teams Incident Handler Relationship Specialty Start Date End Date Pcp, No [address] [place] [address] PCP - General 12/02/20 02/08/23 Oren Pressley MD [address] [place] [address] PCP - General Internal Medicine 02/09/23 Sima Trejo MD [address] [address] Medical Oncologist Hematology and Oncology 08/02/23 documented as of this encounter
--- OUTSIDE RECORDS SUMMARY | 2025-04-08 21:51 | XMS_ITS | Encounter Summary ---
Author Organization [employer] ([place], [place], [place], [place], [place]) Address [address] [place] [address] Care Team Providers Care Cardiopulmonary Physical Therapist Name Role Phone Oren Pressley MD Primary Care Provider [phone] Encounter Details Date Type Department Care Team (Late st Contact Info) Description 06/22/2019 Transcribed Document [facility] [place] [address] ProviderLaurel MD [address] [place] [id number] Social History Tobacco Use Types Packs/Day Years Used Date Smoking Tobacco: Never Assessed Comments Unknown Sex and Gender Information Value Date Recorded Sex Assigned at Not on file Legal Sex Female 4:44 PM CDT Gender Identity Not on file Sexual Orientation Not on file documented as of this encounter Miscellaneous Notes * Cerner Conversion Note - Historical ProviderMD - 06/22/2019 9:38 AM DIRECTOR PHARMACEUTICAL Pre Procedure Adult Entered On: 06/22/2019 9:45 EST Performed On: 06/22/2019 9:38 EST by EDWINA VALIENTE RN Height and Weight, Clinical Dosing Height Source : Measured Height Entry Format : [place] Height, Feet : 5 ft(Converted to: 152 cm, 60 Inch) Height, Inches : 5 Inch(Converted to: 0 ft 5 Inch, 12.70 cm) Clinical Height : 165.1 cm Weight Source : Standing scale Weight Entry Format : [place] Clinical Dosing Weight : 109.09 kg Weight, Pounds : 240 lb Body Surface Area (BSA) : 2.14 m2 Body Mass Index : 40 kg/m2 (HI) [place] Body Weight : 57 kg EDWINA VALIENTE [...] EDWINA VALIENTE RN - 06/22/2019 9:38 EST [place] Suicide Severity Rating Scale (C-SSRS) CSSRS Past [...] Info Legal Guardian : No Support Person/Patient Electrical Apprentice : Yes Want Family/Rep/Phys Notified of Admit : No Emergency Contact #1 : Ender Emergency Contact #1 Emergency Contact #1 Relationship : son Emergency Contact #2 : none Emergency Contact #2 Phone Number : none Emergency Contact #2 Relationship : none Primary Language : Cypriot Preferred Communication Mode : Verbal Communication Barrier [...] Scale Risk Level : 25-45 Medium Risk [place] Fall Interventions : Adequate lighting, Assistive devices [...] 06/22/2019 9:38 EST Electronically signed by [facility] Conversion Structural Steel Ironworker Cerner at 08/07/2022 2:31 PM CDT documented in this encounter Plan of Treatment Not on file documented as of this encounter Visit Diagnoses Not on filedocumented in this encounter Care Teams Cardiopulmonary Physical Therapist Relationship Specialty Start Date End Date Oren Pressley MD [address] [place] [address] [place] [address] PCP - General Adolescent Medicine 05/17/23 documented as of this encounter
--- OUTSIDE RECORDS SUMMARY | 2025-04-08 21:51 | XMS_ITS | Encounter Summary ---
Author Organization Healthcare Address [address] [place] [address] Care Team Providers Care Laborer Dairy Farm Name Role Phone Oren Pressley MD Primary Care Provider [phone] Sima Trejo MD Unavailable Encounter Details Date Type Department Care Team (Latest Contact Info) Description 04/05/2025 Travel Social History Tobacco Use Types Packs/Day [...] Author No Risk Indicated 04/05/2025 2:00 PM Isabelle Gamble RN * Question Answer Date of Assessment Author 1. Wish to be (Past 1 Month) No 04/05/2025 2:00 PM Isabelle Gamble RN 2. Non-Specific Active Suici rachana Thoughts (Past 1 Month) No 04/05/2025 2:00 PM French Gamble RN 6. Suicidal Behavior (Lifetime) No 2:00 PM Isabelle Gamble RN documented as of this encounter Plan of Treatment Upcoming Encounters Date Type Department Care Team ( Contact Info) Description 05/03/2025 8:00 AM EST Office Visit [facility] [address] [place] [address] 05/03/2025 9:00 AM EST Office Visit [facility] [address] [place] [address] [place] [address] [place] [phone] 05/03/2025 9:15 AM EST Infusion [facility] [address] [place] [address] documented as of this encounter Visit Diagnoses Not on filedocumented in this encounter Additional Health Concerns Assessment Noted Time PHQ-9 Depression Total Score: 5 11/15/19 25 9:00 AM EDT A fall risk assessment has been complete d for the patient 04/05/2025 8:05 AM EST documented as of this encounter Care Teams Laborer Dairy Farm Relationship Specialty Start Date End Date Oren Pressley MD [address] [place] [address] PCP - General Internal Medicine 02/09/23 Sima Trejo MD [address] [address] Medical Oncologist Hematology and Oncology 08/02/23 documented as of this encounter
--- OUTSIDE RECORDS SUMMARY | 2025-04-08 21:51 | XMS_ITS | Encounter Summary ---
Author Organization Healthcare Address [address] [place] [address] Care Team Providers Care Machine Tool Designer Name Role Phone Pcp, No Primary Care Provider Oren Hull MD Primary Care Provider Sima Trejo MD Unavailable [phone] Encounter Details Date Type Department Care Team (Late st Contact Info) Description 02/17/2022 Orders Only [facility] [address] [place] [address] Sima Trejo MD [address] [address] Social History Tobacco Use Types [...] Office Visit [facility] [address] [place] [address] 05/03/2025 9:00 AM EST Office Visit [facility] [address] [place] [address] Sima Trejo MD [address] [address] 05/03/2025 9:15 AM EST Infusion [facility] [place] [address] documented as of this encounter Procedures Procedure Name Priority Date/Time Associated Diagnosis Comments COMPREHENSIVE METABOLIC PANEL, PLASMA Routine 02/17/2022 12:42 PM EDT documented in this encounter Results * (ABNORMAL) Comprehensive Metabolic Panel, Plasma (02/17/2022 12:42 PM EDT) External Glucose 98 74 - 100 mg/dL [facility] External BUN 21(H) 6 - 20 mg/dL [facility] External Creatinine Blood 1.34(H) 0.50 - 0.95 mg/dL [facility] External BUN/Creat Ratio 16 10 - 20 (calc) [facility] External Sodium 138 136 - 145 mmol/L [facility] External Potassium 4.0 3.4 - 5.0 mmol/L [facility] External Chloride 103 98 - 107 mmol/L [facility] External Carbon Dioxide 24 22 - 31 mmol/L [facility] External Anion Gap (AG) 11 7 - 25 (calc) [facility] External Calcium 9.1 8.6 - 10.2 mg/dL [facility] External Total Protein 6.9 6.4 - 8.3 g/dL [facility] External Albumin 4.2 3.5 - 5.2 g/dL [facility] External Globulin 2.7 1.5 - 4.5 g/dL (calc) [facility] External Albumin/Globulin Ratio 1.6 1.1 - 2.5 (calc) [facility] External Bilirubin Total 0.4 0.1 - 1.2 mg/dL [facility] External Alkaline Phosphatase 79 30 - 121 U/L [facility] External AST (SGOT) 17 0 - 32 U/L [facility] External ALT (SGPT) 15 0 - 33 U/L [facility] External Estimated GFR 40(A) >=60 [facility] Comment: NOTE New calculation for GFR (CKD-EPI 2020) is formulated without race adjustment factors at the recommendation of the National Kidney Foundation and [place] [employer]ph[employer]. This calculation has not been validated in women. For pediatric patients refer to https://www.kidney.org/professionals/KDOQI/gfr_calculatorPed 02/17/2022 12:4 2 PM EDT 02/17/2022 12:54 PM EDT us Sima Trejo MD LAB BLOOD ORDERABLES Final Re sult [facility] [address] [place] [address], documented in this encounter Visit Diagnoses Not on filedocumented in this encounter Care Teams Machine Tool Designer Relationship Specialty Start Date End Date Pcp, No [address] [place] [address] PCP - General 12/02/20 02/08/23 Oren Pressley MD [address] [place] [address] PCP - General Internal Medicine 02/09/23 Sima Trejo MD [address] [address] Medical Oncologist Hematology and Oncology 08/02/23 documented as of this encounter
--- OUTSIDE RECORDS SUMMARY | 2025-04-08 21:51 | XMS_ITS | Encounter Summary ---
Author Organization Healthcare Address [address] [place] [address] Care Team Providers Care Rn Eligibility Name Role Phone Pcp, No Primary Care Provider Oren Hull MD Primary Care Provider Sima Trejo MD Unavailable [phone] Encounter Details Date Type Department Care Team (Late st Contact Info) Description 08/04/2021 Orders Only [facility] [address] [place] [address] Sima Trejo MD [address] [address] Social History Tobacco Use Types [...] Office Visit [facility] [address] [place] [address] 05/03/2025 9:00 AM EST Office Visit [facility] [address] [place] [address] Sima Trejo MD [address] [address] 05/03/2025 9:15 AM EST Infusion [facility] [place] [address] documented as of this encounter Procedures Procedure Name Priority Date/Time Associated Diagnosis Comments COMPREHENSIVE METABOLIC PANEL, PLASMA Routine 08/04/2021 12:43 PM EDT documented in this encounter Results * (ABNORMAL) Comprehensive Metabolic Panel, Plasma (08/04/2021 12:43 PM EDT) External Glucose 99 74 - 100 mg/dL [facility] External BUN 23(H) 6 - 20 mg/dL [facility] External Creatinine Blood 1.69(H) 0.50 - 0.95 mg/dL [facility] External BUN/Creat Ratio 14 10 - 20 (calc) [facility] External Sodium 139 136 - 145 mmol/L [facility] External Potassium 4.1 3.4 - 5.0 mmol/L [facility] External Chloride 105 98 - 107 mmol/L [facility] External Carbon Dioxide 20(L) 22 - 31 mmol/L [facility] External Anion Gap (AG) 14 7 - 25 (calc) [facility] External Calcium 9.0 8.6 - 10.2 mg/dL [facility] External Total Protein 6.4 6.4 - 8.3 g/dL [facility] External Albumin 3.9 3.5 - 5.2 g/dL [facility] External Globulin 2.5 1.5 - 4.5 g/dL (calc) [facility] External Albumin/Globulin Ratio 1.6 1.1 - 2.5 (calc) [facility] External Bilirubin Total 0.3 0.1 - 1.2 mg/dL [facility] External Alkaline Phosphatase 69 30 - 121 U/L [facility] External AST (SGOT) 11 0 - 32 U/L [facility] External ALT (SGPT) 13 0 - 33 U/L [facility] External EGFR (If AFR/AM) 33(A) >=60 [facility] External Estimated GFR 29(A) >=60 [facility] Comment: NOTE Chronic [...] MD LAB BLOOD ORDERABLES Final Re sult [facility] [address] [place] [address], documented in this encounter Visit Diagnoses Not on filedocumented in this encounter Care Teams Rn Eligibility Relationship Specialty Start Date End Date Pcp, No [address] [place] [address] PCP - General 12/02/20 02/08/23 Oren Pressley MD [address] [facility] [address] [place] [address] PCP - General Internal Medicine 02/09/23 Sima Trejo MD [address] [address] Medical Oncologist Hematology and Oncology 08/02/23 documented as of this encounter
--- OUTSIDE RECORDS SUMMARY | 2025-04-08 21:51 | XMS_ITS | Encounter Summary ---
Author Organization [employer] ([place], [place], [place], [place], [place]) Address [address] [place] [address] Care Team Providers Care Drywall Application Supervisor Name Role Phone Oren Pressley MD Primary Care Provider + [phone] Encounter Details Date Type Department Care Team (Late st Contact Info) Description 05/16/2018 Transcribed Document [facility] [place] [facility] [place] [address] ProviderLaurel MD [address] [place] [id number] Social History Tobacco Use Types Packs/Day Years Used Date Smoking Tobacco: Never Assessed Comments Unknown Sex and Gender Information Value Date Recorded Sex Assigned at Not on file Legal Sex Female 4:44 PM CDT Gender Identity Not on file Sexual Orientation Not on file documented as of this encounter Miscellaneous Notes * Cerner Conversion Note - Laurel Mayer MD - 05/16/2018 12:04 PM FARM MARKETER Patient Education Materials Follows:Medicine Electrical Cardioversion, Care [...] to help you relax (sedative). ??? Take [id number] and prescription medicines only as told by [...] 01/24/2014 Document Revised: 11/06/2016 Document Reviewed: 10/09/2016 [employer] Interactive Patient Education ? 2017 [employer]. Pharmacology Moderate Conscious Sedation, Adult, Care After [...] you are awake and alert. ??? Take [id number] and prescription medicines only as told by [...] 01/24/2014 Document Revised: 09/07/2016 Document Reviewed: 07/25/2016 [employer] Interactive Patient Education ? 2017 [employer] documented in this encounter Plan of Treatment Not on file documented as of this encounter Visit Diagnoses Not on filedocumented in this encounter Care Teams Drywall Application Supervisor Relationship Specialty Start Date End Date Oren Pressley MD [address] [place] [address] PCP - General Adolescent Medicine 05/17/23 documented as of this encounter
--- OUTSIDE RECORDS SUMMARY | 2025-04-08 21:51 | XMS_ITS | Encounter Summary ---
Author Organization Healthcare Address [address] [place] [address] Care Team Providers Care Table Games Floor Supervisor Name Role Phone Pcp, No Primary Care Provider Oren Hull MD Primary Care Provider Sima Trejo MD Unavailable [phone] Encounter Details Date Type Department Care Team (Late st Contact Info) Description 08/04/2021 Orders Only [facility] [address] [place] [address] Sima Trejo MD [address] [address] Social History Tobacco Use Types [...] Description 05/03/2025 8:00 AM EST Office Visit [facility] [address] [place] [address] 05/03/2025 9:00 AM EST Office Visit [facility] [address] [place] [address] Sima Trejo MD [address] [place] [address] [address] 05/03/2025 9:15 AM EST Infusion [facility] [place] [address] documented as of this encounter Procedures Procedure Name Priority Date/Time Associated Diagnosis Comments CBC WITH AUTO DIFFERENTIAL Routine 08/04/2021 12:43 PM EDT documented in this encounter Results * (ABNORMAL) CBC and Differential (08/04/2021 12:43 PM EDT) External WBC 6.0 3.8 - 10.8 K/uL [facility] External Red Blood Cell (RBC) 3.89 3.80 - 5.20 M/uL [facility] External Hemoglobin 11.9(L) 12.0 - 16.0 G/DL [facility] External Hematocrit 36.0 35.0 - 47.0 % [facility] External MCV 93 80 - 100 fL [facility] External MCH 31 26 - 35 PG [facility] External MCHC 33 32 - 36 G/DL [facility] External RDW 15.0 11.0 - 15.0 % [facility] External Mean Platelet Volume 7.1 6.2 - 10.5 fL [facility] External Platelets 131 130 - 400 K/uL [facility] External Neutrophil# 4.0 1.6 - 8.4 K/uL [facility] External Lymphocyte# 1.3 0.4 - 5.1 K/uL [facility] External Absolute Monocyte (Abs [place]) 0.4 0.0 - 1.2 K/uL [facility] External Eosinophils# 0.1 0.0 - 0.8 K/uL [facility] External Baso# 0.0 0.0 - 0.3 K/uL [facility] External Neutrophils % 68.0 42.0 - 78.0 % [facility] External Lymphocyte % 21.8 11.0 - 47.0 % [facility] External Monocyte % 7.3 0.0 - 11.0 % [facility] External Eosinophil% 2.1 0.0 - 7.0 % [facility] External Basophil % 0.8 0.0 - 3.0 % [facility] External Nucleated RBC%-Auto 0.1 0.0 - 0.9 % [facility] External Nucleated RBC Absolute 0.01 Not Estab. K/uL [facility] 08/04/2021 12:4 3 PM EDT 08/04/2021 1:08 PM EDT us Sima Trejo MD LAB BLOOD ORDERABLES Final Re sult [facility] [address] [place] [address], documented in this encounter Visit Diagnoses Not on filedocumented in this encounter Care Teams Table Games Floor Supervisor Relationship Specialty Start Date End Date Pcp, No [address] [place] [address] PCP - General 12/02/20 02/08/23 Oren Pressley MD [address] [place] [address] PCP - General Internal Medicine 02/09/23 Sima Trejo MD [address] [address] Medical Oncologist Hematology and Oncology 08/02/23 documented as of this encounter
--- OUTSIDE RECORDS SUMMARY | 2025-04-08 21:51 | XMS_ITS | Encounter Summary ---
Author Organization Healthcare Address [address] [place] [address] Care Team Providers Care Senior Strategy Manager Name Role Phone Pcp, No Primary Care Provider Oren Hull MD Primary Care Provider Sima Trejo MD Unavailable [phone] Encounter Details Date Type Department Care Team (Late st Contact Info) Description 06/02/2021 Orders Only [facility] [address] [place] [address] Sima Trejo MD [address] [address] Social History Tobacco Use Types [...] 05/03/2025 8:00 AM EST Office Visit [facility] [address] [place] [address] 05/03/2025 9:00 AM EST Office Visit [facility] [address] [place] [address] Sima Trejo MD [address] [address] (work) 05/03/2025 9:15 AM EST Infusion [facility] [place] [address] documented as of this encounter Procedures Procedure Name Priority Date/Time Associated Diagnosis Comments CBC WITH AUTO DIFFERENTIAL Routine 06/02/2021 12:06 PM EST documented in this encounter Results * CBC and Differential (06/02/2021 12:06 PM EST) External WBC 7.1 3.8 - 10.8 K/uL [facility] External Red Blood Cell (RBC) 4.41 3.80 - 5.20 M/uL [facility] External Hemoglobin 13.6 12.0 - 16.0 G/DL [facility] External Hematocrit 40.9 35.0 - 47.0 % [facility] External MCV 93 80 - 100 fL [facility] External MCH 31 26 - 35 [facility] External MCHC 33 32 - 36 G/DL [facility] External RDW 14.6 11.0 - 15.0 % [facility] External Mean Platelet Volume 7.3 6.2 - 10.5 fL [facility] External Platelets 198 130 - 400 K/uL [facility] External Neutrophil# 4.1 1.6 - 8.4 K/uL [facility] External Lymphocyte# 2.1 0.4 - 5.1 K/uL [facility] External Absolute Monocyte (Abs [place]) 0.7 0.0 - 1.2 K/uL [facility] External Eosinophils# 0.1 0.0 - 0.8 K/uL [facility] External Baso# 0.1 0.0 - 0.3 K/uL [facility] External Neutrophils % 58.0 42.0 - 78.0 % [facility] External Lymphocyte % 30.1 11.0 - 47.0 % [facility] External Monocyte % 9.4 0.0 - 11.0 % [facility] External Eosinophil% 1.5 0.0 - 7.0 % [facility] External Basophil % 1.0 0.0 - 3.0 % [facility] External Nucleated RBC%-Auto 0.1 0.0 - 0.9 % [facility] External Nucleated RBC Absolute 0.01 Not Estab. K/uL [facility] 06/02/2021 12:0 6 PM EST 06/02/2021 12:41 PM EST Sima Trejo MD LAB BLOOD ORDERABLES Final Re sult [facility] [address] [place] [address], documented in this encounter Visit Diagnoses Not on filedocumented in this encounter Care Teams Senior Strategy Manager Relationship Specialty Start Date End Date Pcp, No [address] [place] [address] PCP - General 12/02/20 02/08/23 Oren Pressley MD [address] [place] [address] PCP - General Internal Medicine 02/09/23 Sima Trejo MD [address] [address] Medical Oncologist Hematology and Oncology 08/02/23 documented as of this encounter
--- OUTSIDE RECORDS SUMMARY | 2025-04-08 21:51 | XMS_ITS | Encounter Summary ---
Author Organization [employer] ([place], [place], [place], [place], [place]) Address [address] [place] [address] Care Team Providers Care Biscuit Factory Worker Name Role Phone Oren Pressley MD Primary Care Provider + [phone] Encounter Details Date Type Department Care Team (Late st Contact Info) Description 05/16/2018 Transcribed Document [facility] Family Medicine [facility] [place] [address] ProviderLaurel MD [address] [place] [id number] Social History Tobacco Use Types Packs/Day Years Used Date Smoking Tobacco: Never Assessed Comments Unknown Sex and Gender Information Value Date Recorded Sex Assigned at Not on file Legal Sex Female 4:44 PM CDT Gender Identity Not on file Sexual Orientation Not on file documented as of this encounter Miscellaneous Notes * Cerner Conversion Note - Laurel Mayer MD - 05/16/2018 9:45 AM COMMUNITY DEVELOPMENT WORKER DATE OF PROCEDURE: 05/16/2018 DIRECT CURRENT CARDIOVERSION [...] CC1: Yasmany Vazquez M.D. Electronically signed by [facility] [employer]version [employer] Lead Cerner at 08/07/2022 2:19 PM CDT documented in this encounter Plan of Treatment Not on file documented as of this encounter Visit Diagnoses Not on filedocumented in this encounter Care Teams Biscuit Factory Worker Relationship Specialty Start Date End Date Oren Pressley MD [address] [place] [address] PCP - General Adolescent Medicine 05/17/23 documented as of this encounter
--- OUTSIDE RECORDS SUMMARY | 2025-04-08 21:51 | XMS_ITS | Encounter Summary ---
Author Organization Healthcare Address [address] [place] [address] Care Team Providers Care Circular Saw Filer Name Role Phone Pcp, No Primary Care Provider Oren Hull MD Primary Care Provider Sima Trejo MD Unavailable [phone] Encounter Details Date Type Department Care Team (Late st Contact Info) Description 03/31/2021 Orders Only [facility] [address] [place] [address] Sima Trejo MD [address] [address] Social History Tobacco Use [...] Description 05/03/2025 8:00 AM EST Office Visit [facility] [address] [place] [address] 05/03/2025 9:00 AM EST Office Visit [facility] [address] [place] [address] Sima Trejo MD [address] [address] (work) 05/03/2025 9:15 AM EST Infusion [facility] [place] [address] documented as of this encounter Procedures Procedure Name Priority Date/Time Associated Diagnosis Comments CBC WITH AUTO DIFFERENTIAL Routine 03/31/2021 12:13 PM EST documented in this encounter Results * (ABNORMAL) CBC and Differential (03/31/2021 12:13 PM EST) External WBC 8.0 3.8 - 10.8 K/uL [facility] External Red Blood Cell (RBC) 4.07 3.80 - 5.20 M/uL [facility] External Hemoglobin 12.1 12.0 - 16.0 G/DL [facility] External Hematocrit 36.2 35.0 - 47.0 % [facility] External MCV 89 80 - 100 fL [facility] External MCH 30 26 - 35 PG [facility] External MCHC 33 32 - 36 G/DL [facility] External RDW 17.5(H) 11.0 - 15.0 % [facility] External Mean Platelet Volume 8.7 6.2 - 10.5 fL [facility] External Platelets 148 130 - 400 K/uL [facility] External Neutrophil# 4.6 1.6 - 8.4 K/uL [facility] External Lymphocyte# 2.6 0.4 - 5.1 K/uL [facility] External Absolute Monocyte (Abs [place]) 0.6 0.0 - 1.2 K/uL [facility] External Eosinophils# 0.1 0.0 - 0.8 K/uL [facility] External Baso# 0.1 0.0 - 0.3 K/uL [facility] External Neutrophils % 57.9 42.0 - 78.0 % [facility] External Lymphocyte % 32.4 11.0 - 47.0 % [facility] External Monocyte % 8.0 0.0 - 11.0 % [facility] External Eosinophil% 0.8 0.0 - 7.0 % [facility] External Basophil % 0.9 0.0 - 3.0 % [facility] External Nucleated RBC%-Auto 0.0 0.0 - 0.9 % [facility] External Nucleated RBC Absolute 0.00 Not Estab. K/uL [facility] 03/31/2021 12:1 3 PM EST 03/31/2021 1:17 PM EST Sima Trejo MD LAB BLOOD ORDERABLES Final Re sult [facility] [address] [place] [address], documented in this encounter Visit Diagnoses Not on filedocumented in this encounter Care Teams Circular Saw Filer Relationship Specialty Start Date End Date Pcp, No [address] [place] [address] PCP - General 12/02/20 02/08/23 Oren Pressley MD [address] [place] [address] PCP - General Internal Medicine 02/09/23 Sima Trejo MD [address] [address] Medical Oncologist Hematology and Oncology 08/02/23 documented as of this encounter
--- OUTSIDE RECORDS SUMMARY | 2025-04-08 21:51 | XMS_ITS | Encounter Summary ---
Author Organization Healthcare Address [address] [place] [address] Care Team Providers Care Corrective Therapist Name Role Phone Pcp, No Primary Care Provider Oren Hull MD Primary Care Provider [phone] Sima Trejo MD Unavailable [phone] Encounter Details Date Type Department Care Team (Late st Contact Info) Description 02/17/2022 Orders Only [facility] [address] [place] [address] Sima Trejo MD [address] [address] Social History Tobacco Use Types [...] Description 05/03/2025 8:00 AM EST Office Visit [facility] [address] [place] [address] 05/03/2025 9:00 AM EST Office Visit [facility] [address] [place] [address] Sima Trejo MD [address] [place] [address] [address] 05/03/2025 9:15 AM EST Infusion [facility] [place] [address] documented as of this encounter Procedures Procedure Name Priority Date/Time Associated Diagnosis Comments CBC WITH AUTO DIFFERENTIAL Routine 02/17/2022 12:42 PM EDT documented in this encounter Results * CBC and Differential (02/17/2022 12:42 PM EDT) External WBC 6.1 3.8 - 10.8 K/uL [facility] External Red Blood Cell (RBC) 4.03 3.80 - 5.20 M/uL [facility] External Hemoglobin 12.1 12.0 - 16.0 G/DL [facility] External Hematocrit 35.9 35.0 - 47.0 % [facility] External MCV 89 80 - 100 fL [facility] External MCH 30 26 - 35 PG [facility] External MCHC 34 32 - 36 G/DL [facility] External RDW 14.6 11.0 - 15.0 % [facility] External Mean Platelet Volume 7.3 6.2 - 10.5 fL [facility] External Platelets 180 130 - 400 K/uL [facility] External Neutrophil# 3.8 1.6 - 8.4 K/uL [facility] External Lymphocyte# 1.6 0.4 - 5.1 K/uL [facility] External Absolute Monocyte (Abs [place]) 0.5 0.0 - 1.2 K/uL [facility] External Eosinophils# 0.1 0.0 - 0.8 K/uL [facility] External Baso# 0.1 0.0 - 0.3 K/uL [facility] External Neutrophils % 62.4 42.0 - 78.0 % [facility] External Lymphocyte % 25.6 11.0 - 47.0 % [facility] External Monocyte % 9.0 0.0 - 11.0 % [facility] External Eosinophil% 2.0 0.0 - 7.0 % [facility] External Basophil % 1.0 0.0 - 3.0 % [facility] External Nucleated RBC%-Auto 0.0 0.0 - 0.9 % [facility] External Nucleated RBC Absolute 0.00 Not Estab. K/uL [facility] 02/17/2022 12:4 2 PM EDT 02/17/2022 12:53 PM EDT Sima Trejo MD LAB BLOOD ORDERABLES Final Re sult [facility] [address] [place] [address], documented in this encounter Visit Diagnoses Not on filedocumented in this encounter Care Teams Corrective Therapist Relationship Specialty Start Date End Date Pcp, No [address] [place] [address] PCP - General 12/02/20 02/08/23 Oren Pressley MD [address] [place] [address] PCP - General Internal Medicine 02/09/23 Sima Trejo MD [address] [address] Medical Oncologist Hematology and Oncology 08/02/23 documented as of this encounter
--- OUTSIDE RECORDS SUMMARY | 2025-04-08 21:51 | XMS_ITS | Encounter Summary ---
Author Organization Healthcare Address [address] [place] [address] Care Team Providers Care Cushion Assembler Name Role Phone Pcp, No Primary Care Provider Oren Hull MD Primary Care Provider Sima Trejo MD Unavailable [phone] Encounter Details Date Type Department Care Team (Late st Contact Info) Description 06/02/2021 Orders Only [facility] [address] [place] [address] Sima Trejo MD [address] [address] Social History Tobacco Use [...] Description 05/03/2025 8:00 AM EST Office Visit [facility] [address] [place] [address] 05/03/2025 9:00 AM EST Office Visit [facility] [address] [place] [address] Sima Trejo MD [address] [place] [address] [address] 05/03/2025 9:15 AM EST Infusion [facility] [address] [place] [address] documented as of this encounter Procedures Procedure Name Priority Date/Time Associated Diagnosis Comments LACTATE DEHYDROGENASE, PLASMA Routine 06/02/2021 12:06 PM EST documented in this encounter Results * Lactate Dehydrogenase, Plasma (06/02/2021 12:06 PM EST) External LDH Lactate Dehydrogenase 173 135 - 233 U/L [facility] 06/02/2021 12:0 6 PM EST 06/02/2021 12:41 PM EST us Sima Trejo MD LAB BLOOD ORDERABLES Final Re sult [facility] [address] [place] [address], documented in this encounter Visit Diagnoses Not on filedocumented in this encounter Care Teams Cushion Assembler Relationship Specialty Start Date End Date Pcp, No [address] [place] [address] PCP - General 12/02/20 02/08/23 Oren Pressley MD [address] [place] [address] PCP - General Internal Medicine 02/09/23 Sima Trejo MD [address] [address] Medical Oncologist Hematology and Oncology 08/02/23 documented as of this encounter
--- OUTSIDE RECORDS SUMMARY | 2025-04-08 21:51 | XMS_ITS | Encounter Summary ---
Author Organization [employer] ([place], [place], [place], [place], [place]) Address [address] [place] [address] Care Team Providers Care Ferryboat Operator Cable Name Role Phone Oren Pressley MD Primary Care Provider + [phone] Encounter Details Date Type Department Care Team (Late st Contact Info) Description 06/22/2019 Transcribed Document [facility] [place] [facility] [place] [facility] [place] [address] ProviderLaurel MD [address] [place] [address] [id number] Social History Tobacco Use Types Packs/Day Years Used Date Smoking Tobacco: Never Assessed Comments Unknown Sex and Gender Information Value Date Recorded Sex Assigned at Not on file Legal Sex Female 4:44 PM CDT Gender Identity Not on file Sexual Orientation Not on file documented as of this encounter Miscellaneous Notes * Cerner Conversion Note - Historical ProviderMD - 06/22/2019 12:31 PM GUIDANCE COUNSELOR Stroke/Warfarin Instructions Entered On: 06/22/2019 12:31 EST [...] Signs/Symptoms of : Significant bleeding, Clot EDWINA VALIENTE, RN - 06/22/2019 12:31 EST Electronically signed by [facility] Conversion Special Deputy Sheriff Cerner at 08/07/2022 2:02 PM CDT documented in this encounter Plan of Treatment Not on file documented as of this encounter Visit Diagnoses Not on filedocumented in this encounter Care Teams Ferryboat Operator Cable Relationship Specialty Start Date End Date Oren Pressley MD [address] [place] [address] PCP - General Adolescent Medicine 05/17/23 documented as of this encounter
--- OUTSIDE RECORDS SUMMARY | 2025-04-08 21:51 | XMS_ITS | Encounter Summary ---
Author Organization Healthcare Address [address] [place] [address] Care Team Providers Care Housekeeper And Laundry Assistant Name Role Phone Pcp, No Primary Care Provider Oren Hull MD Primary Care Provider [phone] Sima Trejo MD Unavailable [phone] Encounter Details Date Type Department Care Team (Late st Contact Info) Description 12/02/2020 Orders Only [facility] [address] [place] [address] Sima Trejo MD [address] [address] Social History Tobacco Use Types [...] 05/03/2025 8:00 AM EST Office Visit [facility] [address] [place] [address] 05/03/2025 9:00 AM EST Office Visit [facility] [address] [place] [address] Sima Trejo MD [address] [address] (work) 05/03/2025 9:15 AM EST Infusion [facility] [place] [address] documented as of this encounter Procedures Procedure Name Priority Date/Time Associated Diagnosis Comments CBC WITH AUTO DIFFERENTIAL Routine 12/02/2020 12:56 PM EDT documented in this encounter Results * (ABNORMAL) CBC and Differential (12/02/2020 12:56 PM EDT) External WBC 8.0 3.8 - 10.8 K/uL [facility] External Red Blood Cell (RBC) 3.74(L) 3.80 - 5.20 M/uL [facility] External Hemoglobin 11.1(L) 12.0 - 16.0 G/DL [facility] External Hematocrit 33.5(L) 35.0 - 47.0 % [facility] External MCV 90 80 - 100 fL [facility] External MCH 30 26 - 35 PG [facility] External MCHC 33 32 - 36 G/DL [facility] External RDW 15.4(H) 11.0 - 15.0 % [facility] External Mean Platelet Volume 8.8 6.2 - 10.5 fL [facility] External Platelets 162 130 - 400 K/uL [facility] External Neutrophil# 5.1 1.6 - 8.4 K/uL [facility] External Lymphocyte# 2.0 0.4 - 5.1 K/uL [facility] External Absolute Monocyte (Abs Richardson) 0.8 0.0 - 1.2 K/uL [facility] External Eosinophils# 0.1 0.0 - 0.8 K/uL [facility] External Baso# 0.1 0.0 - 0.3 K/uL [facility] External Neutrophils % 62.9 42.0 - 78.0 % [facility] External Lymphocyte % 25.1 11.0 - 47.0 % [facility] External Monocyte % 10.2 0.0 - 11.0 % [facility] External Eosinophil% 0.9 0.0 - 7.0 % [facility] External Basophil % 0.9 0.0 - 3.0 % [facility] External Nucleated RBC%-Auto 0.1 0.0 - 0.9 % [facility] External Nucleated RBC Absolute 0.01 Not Estab. K/uL [facility] 12/02/2020 12:5 6 PM EDT 12/02/2020 1:27 PM EDT us Sima Trejo MD LAB BLOOD ORDERABLES Final Re sult [facility] [address] [place] [address], documented in this encounter Visit Diagnoses Not on filedocumented in this encounter Care Teams Housekeeper And Laundry Assistant Relationship Specialty Start Date End Date Pcp, No [address] [place] [address] PCP - General 12/02/20 02/08/23 Oren Pressley MD [address] [place] [address] PCP - General Internal Medicine 02/09/23 Sima Trejo MD [address] [address] Medical Oncologist Hematology and Oncology 08/02/23 documented as of this encounter
--- OUTSIDE RECORDS SUMMARY | 2025-04-08 21:51 | XMS_ITS | Encounter Summary ---
Author Organization [employer] ([place], [place], [place], [place], [place]) Address [address] [place] [address] Care Team Providers Care Shop Coordinator Name Role Phone Oren Corbin MD Primary Care Provider [phone] Encounter Details Date Type Department Care Team (Late st Contact Info) Description 05/16/2018 Transcribed Document [facility] [place] [address] [place] [address] ProviderLaurel MD [address] [place] [address] Social History Tobacco Use Types Packs/Day Years Used Date Smoking Tobacco: Never Assessed Comments Unknown Sex and Gender Information Value Date Recorded Sex Assigned at Not on file Legal Sex Female 4:44 PM CDT Gender Identity Not on file Sexual Orientation Not on file documented as of this encounter Miscellaneous Notes * Cerner Conversion Note - Laurel ProviderMD - 05/16/2018 12:04 PM GOLDSMITH APPRENTICE [address] , [place] [address] Patient Copy Patient Information: Name: [facility] Current Date: 05/16/2018 12:04:39 : 1945 Patient [place]: [place] [address] Patient Attending Physician: TAMIKO NIETO MD-DMITRY Primary Care Provider: OREN CORBIN (REF)DELILAH Primary Care Provider Discharge Diagnosis: Atrial fibrillation Weight on Admission: 230 lb, 0 oz Comment: Follow-up Instructions: With: Address: When: GIOVANNI SHAH [address], SECTION OF CARDIOLOGY [place] [phone] Business (1) 9:45 AM Discharge Instructions: Diet [...] you are awake and alert. ??? Take drdd-ijh-jguhrhy and prescription medicines only as told by [...] 01/24/2014 Document Revised: 09/07/2016 Document Reviewed: 07/25/2016 [employer] Interactive Patient Education ? 2017 [employer] Electrical Cardioversion, Care After This sheet [...] to help you relax (sedative). ??? Take mtqm-dqo-dncwrdv and prescription medicines only as told by [...] 01/24/2014 Document Revised: 11/06/2016 Document Reviewed: 10/09/2016 [employer] Interactive Patient Education ? 2017 [employer]. Medication Leaflets: amiodarone (oral) (A mi [place] [...] may report side effects to FDA at 2-510-TIH-6919. What other drugs will affect amiodarone? Sometimes [...] can affect amiodarone. This includes prescription and yvyv-ins-hnvtbzj medicines, vitamins, and herbal products. Not all [...] to ensure that the information provided by [employer]. ('[employer]') is accurate, up-to-date, and complete, but no guarantee is made to that effect. Drug information contained herein may be time sensitive. [employer] information has been compiled for use by healthcare practitioners and consumers in the [place] and therefore [employer] does not warrant that uses outside of the [place] are appropriate, unless specifically indicated otherwise. [employer]'s drug information does not endorse drugs, diagnose patients or recommend therapy. [facility] drug information is an informational resource designed [...] effective or appropriate for any given patient. [employer] does not assume any responsibility for any aspect of healthcare administered with the aid of information [employer] provides. The information contained herein is not intended to cover all possible uses, directions, precautions, warnings, drug interactions, allergic reactions, or adverse effects. If you have questions about the drugs you are taking, check with your doctor, nurse or pharmacist. Copyright 7080-7407 Annmarie Mcmahan [facility]. Version: 7.01. Revision Date: 02/22/2018. CIGARETTE SMOKING: The facts are clear, cigarette smoking will shorten your life. Smoking can cause many illnesses along the way. As a healthcare provider, we recommend that you stop smoking. Assistance with quitting is available by contacting 7-231-FCVM-NOW. This is a free resource providing counseling, [...] Be sure to sign up for the [employer] patient portal, which gives you 09/11 access to your medical information ??? including these discharge instructions ??? using your computer, smartphone, or tablet. Just go to [employer] to get started. Questions? Call . [facility] would like to thank you for allowing us to assist you with your healthcare needs. CARL Hopson [employer]IS[employer] SMI, (or product sales representative) have received the above patient education materials/instructions and have verbalized understanding: Patient Signature _ Date/Time Patient Thermostat Maker Signature (if needed) Date/Time Clinician/Hospital Thermostat Maker Signature (if needed) Date/Time Electronically signed by Interface, [facility] Conversion Cafe Lead Cerner at 08/07/2022 2:27 PM CDT documented in this encounter Plan of Treatment Not on file documented as of this encounter Visit Diagnoses Not on filedocumented in this encounter Care Teams Shop Coordinator Relationship Specialty Start Date End Date Oren Corbin MD [address] [place] [address] PCP - General Adolescent Medicine 05/17/23 documented as of this encounter
--- OUTSIDE RECORDS SUMMARY | 2025-04-08 21:51 | XMS_ITS | Encounter Summary ---
Author Organization Healthcare Address [address] [place] [address] Care Team Providers Care Director Digital Marketing Name Role Phone Pcp, No Primary Care Provider Oren Hull MD Primary Care Provider Sima Trejo MD Unavailable [phone] Encounter Details Date Type Department Care Team (Late st Contact Info) Description 05/26/2022 Orders Only [facility] [address] [place] [address] Sima Trejo MD [address] [address] Social History Tobacco Use Types [...] Description 05/03/2025 8:00 AM EST Office Visit [facility] [address] [place] [address] 05/03/2025 9:00 AM EST Office Visit [facility] [address] [place] [address] Sima Trejo MD [address] [address] 05/03/2025 9:15 AM EST Infusion [facility] [address] [place] [address] documented as of this encounter Procedures Procedure Name Priority Date/Time Associated Diagnosis Comments LACTATE DEHYDROGENASE, PLASMA Routine 05/26/2022 1:07 PM EST documented in this encounter Results * Lactate Dehydrogenase, Plasma (05/26/2022 1:07 PM EST) External LDH Lactate Dehydrogenase 155 135 - 233 U/L [facility] 05/26/2022 1:07 PM EST 05/26/2022 1:19 PM EST us Sima Trejo MD LAB BLOOD ORDERABLES Final Re sult [facility] [address] [place] [address], documented in this encounter Visit Diagnoses Not on filedocumented in this encounter Care Teams Director Digital Marketing Relationship Specialty Start Date End Date Pcp, No [address] [place] [address] PCP - General 12/02/20 02/08/23 Oren Pressley MD [address] [place] [address] PCP - General Internal Medicine 02/09/23 Sima Trejo MD [address] [address] Medical Oncologist Hematology and Oncology 08/02/23 documented as of this encounter
--- OUTSIDE RECORDS SUMMARY | 2025-04-08 21:51 | XMS_ITS | Encounter Summary ---
Author Organization [employer] ([place], [place], [place], [place], [place]) Address [address] [place] [address] Care Team Providers Care Investor Relations Associate Name Role Phone Oren Pressley MD Primary Care Provider + [phone] Encounter Details Date Type Department Care Team (Late st Contact Info) Description 05/16/2018 Transcribed Document [facility] [place] [facility] [place] [address] ProviderLaurel MD [address] [place] [id number] Social History Tobacco Use Types Packs/Day Years Used Date Smoking Tobacco: Never Assessed Comments Unknown Sex and Gender Information Value Date Recorded Sex Assigned at Not on file Legal Sex Female 4:44 PM CDT Gender Identity Not on file Sexual Orientation Not on file documented as of this encounter Miscellaneous Notes * Cerner Conversion Note - Historical ProviderMD - 05/16/2018 10:29 AM COMMUNICATION TECHNICIAN Discharge Instructions Entered On: 05/16/2018 10:30 EST [...] - 05/16/2018 10:29 EST Electronically signed by [facility] Conversion Brisket Puller Cerner at 08/07/2022 2:29 PM CDT documented in this encounter Plan of Treatment Not on file documented as of this encounter Visit Diagnoses Not on filedocumented in this encounter Care Teams Investor Relations Associate Relationship Specialty Start Date End Date Oren Pressley MD [address] [place] [address] PCP - General Adolescent Medicine 05/17/23 documented as of this encounter
--- OUTSIDE RECORDS SUMMARY | 2025-04-08 21:51 | XMS_ITS | Encounter Summary ---
Author Organization [employer] ([place], [place], [place], [place], [place]) Address [address] [place] [address] Care Team Providers Care Bucket Pusher Name Role Phone Oren Pressley MD Primary Care Provider + [phone] Encounter Details Date Type Department Care Team (Late st Contact Info) Description 05/16/2018 Transcribed Document [facility] [place] [facility] [place] [address] ProviderLaurel MD [address] [place] [id number] Social History Tobacco Use Types Packs/Day Years Used Date Smoking Tobacco: Never Assessed Comments Unknown Sex and Gender Information Value Date Recorded Sex Assigned at Not on file Legal Sex Female 4:44 PM CDT Gender Identity Not on file Sexual Orientation Not on file documented as of this encounter Miscellaneous Notes * Cerner Conversion Note - Historical ProviderMD - 05/16/2018 8:38 AM GLUE MIXER Pre Procedure Adult Entered On: 05/16/2018 8:45 EST Performed On: 05/16/2018 8:38 EST by KASSIDY SAWYER RN Height and Weight, Clinical Dosing Height Source : Stated Height Entry Format : [place] Height, Feet : 5 ft(Converted to: 152 cm, 60 Inch) Height, Inches : 5.5 Inch(Converted to: 0 ft 6 Inch, 13.97 cm) Clinical Height : 166.37 cm Weight Source : Standing scale Weight Entry Format : [place] Clinical Dosing Weight : 104.55 kg Weight, Pounds : 230 lb Body Surface Area (BSA) : 2.11 m2 Body Mass Index : 37.8 kg/m2 (HI) [place] Body Weight : 58 kg KASSIDY SAWYER [...] Son Legal Guardian : No Support Person/Patient Employment Service Specialist : Yes Want Family/Rep/Phys Notified of Admit : No Emergency Contact #1 : Ender Emergency Contact #1 Emergency Contact #1 Relationship : son Emergency Contact #2 : n/a Emergency Contact #2 Phone Number : n/a Emergency Contact #2 Relationship : n/a Chief Complaint : CV Information Obtained From : Patient Primary Language : Iranian Preferred Communication Mode : Verbal Communication Barrier [...] Scale Risk Level : 0-24 Low Risk [place] Fall Interventions : Adequate lighting, Assistive devices [...] on filedocumented in this encounter Care Teams Bucket Pusher Relationship Specialty Start Date End Date Oren Pressley MD [address] [place] [address] PCP - General Adolescent Medicine 05/17/23 documented as of this encounter
--- OUTSIDE RECORDS SUMMARY | 2025-04-08 21:51 | XMS_ITS | Encounter Summary ---
Author Organization [employer] ([place], [place], [place], [place], [place]) Address [address] [place] [address] Care Team Providers Care Paper Coating Machine Operator Name Role Phone Oren Pressley MD Primary Care Provider + [phone] Encounter Details Date Type Department Care Team (Late st Contact Info) Description 06/22/2019 Transcribed Document [facility] [place] [address] ProviderLaurel MD [address] [place] [id number] Social History Tobacco Use Types Packs/Day Years Used Date Smoking Tobacco: Never Assessed Comments Unknown Sex and Gender Information Value Date Recorded Sex Assigned at Not on file Legal Sex Female 4:44 PM CDT Gender Identity Not on file Sexual Orientation Not on file documented as of this encounter Miscellaneous Notes * Cerner Conversion Note - Laurel Mayer MD - 06/22/2019 11:50 AM INSTRUMENTATION AND CONTROLS DESIGNER DATE OF PROCEDURE: 06/22/2019 DC CARDIOVERSION SURGEON: [...] Successful DC cardioversion achieving normal sinus rhythm. /[id number] Yasmany Vazquez MD SR/AQ / SR / MODL /[id number] Electronically signed by [facility] Conversion Senior Insight Manager International Cerner at 08/07/2022 2:12 PM CDT documented in this encounter Plan of Treatment Not on file documented as of this encounter Visit Diagnoses Not on filedocumented in this encounter Care Teams Paper Coating Machine Operator Relationship Specialty Start Date End Date Oren Pressley MD [address] [place] [address] PCP - General Adolescent Medicine 05/17/23 documented as of this encounter
--- OUTSIDE RECORDS SUMMARY | 2025-04-08 21:51 | XMS_ITS | Encounter Summary ---
Author Organization [employer] ([place], [place], [place], [place], [place]) Address [address] [place] [address] Care Team Providers Care Safekeeping Clerk Name Role Phone Oren Corbin MD Primary Care Provider + [phone] Encounter Details Date Type Department Care Team (Late st Contact Info) Description 06/22/2019 Transcribed Document [facility] [place] [facility] [place] [address] ProviderLaurel MD [address] [place] [address] Social History Tobacco Use Types Packs/Day Years Used Date Smoking Tobacco: Never Assessed Comments Unknown Sex and Gender Information Value Date Recorded Sex Assigned at Not on file Legal Sex Female 4:44 PM CDT Gender Identity Not on file Sexual Orientation Not on file documented as of this encounter Miscellaneous Notes * Cerner Conversion Note - Laurel ProviderMD - 06/22/2019 12:31 PM 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 SECTION OF CARDIOLOGY [place] [phone] Business (1) Warfarin Instructions Indication for Warfarin [...] instructions 0.5 Tab Oral Daily 06/22/2019 Please sampler pickup your prescription for flecinide and start it [...] to help you relax (sedative). ??? Take ilor-pqn-yhtjymy and prescription medicines only as told by [...] 01/24/2014 Document Revised: 11/06/2016 Document Reviewed: 10/09/2016 [employer] Interactive Patient Education ?? 2019 [employer] Moderate Conscious Sedation, Adult, Care After [...] you are awake and alert. ??? Take tvmo-idn-xzdkssq and prescription medicines only as told by [...] 01/24/2014 Document Revised: 09/07/2016 Document Reviewed: 07/25/2016 [employer] Interactive Patient Education ?? 2019 [employer]. flecainide (FLEK a nide) [employer] What is [...] may report side effects to FDA at 7-007-DTV-9762. What other drugs will affect flecainide? Tell your doctor about all your other medicines, especially: ?? digoxin; ?? a diuretic or 'water pill'; ?? a beta-mari (atenolol, metoprolol, propranolol, sotalol, and others); ?? other heart medications such as amiodarone, diltiazem, disopyramide, nifedipine, quinidine, or verapamil; or ?? seizure medication. This list is not complete. Other drugs may affect flecainide, including prescription and scly-qil-stjsbnk medicines, vitamins, and herbal products. Not all [...] to ensure that the information provided by [employer]. ('[employer]') is accurate, up-to-date, and complete, but no guarantee is made to that effect. Drug information contained herein may be time sensitive. [employer] information has been compiled for use by healthcare practitioners and consumers in the [place] and therefore [employer] does not warrant that uses outside of the [place] are appropriate, unless specifically indicated otherwise. [employer] drug information does not endorse drugs, diagnose patients or recommend therapy. [employer] drug information is an informational resource designed [...] effective or appropriate for any given patient. [employer] does not assume any responsibility for any aspect of healthcare administered with the aid of information [employer] provides. The information contained herein is not intended to cover all possible uses, directions, precautions, warnings, drug interactions, allergic reactions, or adverse effects. If you have questions about the drugs you are taking, check with your doctor, nurse or pharmacist. Copyright 1651-3518 [employer]. Version: 4.01. Revision Date: 05/03/2018. Emergency Awareness [...] Assistance with quitting is available by contacting 6-074-BNIPNOW. This is a free resource providing counseling, support, and referral. Or you may contact your personal physician. [employer] Suicide Prevention Lifeline: The National Suicide Prevention [...] was given the opportunity to ask questions. Patient/Americanization Teacher Name: Patient/Americanization Teacher Signature: Relationship to Patient: Clinician/Hospital Americanization Teacher Signature: Date: Electronically signed by [facility], [facility] Conversion Professor Of Voice Cerner at 08/07/2022 2:20 PM CDT documented in this encounter Plan of Treatment Not on file documented as of this encounter Visit Diagnoses Not on filedocumented in this encounter Care Teams Safekeeping Clerk Relationship Specialty Start Date End Date Oren Corbin MD [address] [place] [address] PCP - General Adolescent Medicine 05/17/23 documented as of this encounter
--- OUTSIDE RECORDS SUMMARY | 2025-04-08 21:51 | XMS_ITS | Encounter Summary ---
Author Organization [employer] ([place], [place], [place], [place], [place]) Address [address] [place] [address] Care Team Providers Care Supervisor [employer] Name Role Phone Oren Pressley MD Primary Care Provider + [phone] Encounter Details Date Type Department Care Team (Late st Contact Info) Description 06/22/2019 Transcribed Document [facility] Family Medicine [facility] [place] [address] ProviderLaurel MD [address] [place] [id number] Social History Tobacco Use Types Packs/Day Years Used Date Smoking Tobacco: Never Assessed Comments Unknown Sex and Gender Information Value Date Recorded Sex Assigned at Not on file Legal Sex Female 4:44 PM CDT Gender Identity Not on file Sexual Orientation Not on file documented as of this encounter Miscellaneous Notes * Cerner Conversion Note - Historical ProviderMD - 06/22/2019 12:29 PM [facility] Nursing Discharge Summary Entered On: 06/22/2019 12:29 [...] 06/22/2019 12:29 EST Electronically signed by [facility] Conversion Electronic Operator Cerner at 08/07/2022 2:09 PM CDT documented in this encounter Plan of Treatment Not on file documented as of this encounter Visit Diagnoses Not on filedocumented in this encounter Care Teams Supervisor [employer]ing [employer] Relationship Specialty Start Date End Date Oren Pressley MD [address] [place] [address] PCP - General Adolescent Medicine 05/17/23 documented as of this encounter
[2025-04-08 22:09] LABS: Hematocrit 30.7 % (37.0-47.0); Hemoglobin 10.5 g/dL (12.2-16.2); Immature Granulocytes % 0.7 %; Mean Corpuscular HGB Conc 34.2 g/dL (31.8-35.4); Mean Corpuscular Hemoglobin 32.8 pg (27.0-31.2); Mean Corpuscular Volume 95.9 fl (81-99); Nucleated Red Blood Cells % 0.3 %; Platelet Count 126 K/mm3 (142-424); Red Blood Count 3.20 M/mm3 (4.20-5.40); Red Cell Distribution Width-SD 52.5 fL; White Blood Count 7.2 K/mm3 (4.8-10.8)
[2025-04-08 22:12] LABS: Chloride 100 mmol/L (98-107); Potassium 4.4 mmoL/L (3.5-5.1); Sodium 128 mmol/L (136-145)
[2025-04-08 22:14] LABS: Alanine Aminotransferase 20 U/L (12-78); Aspartate Amino Transferase 30 U/L (14-36); Blood Urea Nitrogen 20 mg/dl (7-17); Creatinine Clearance Estimated 52 mL/min (50-200); Creatinine,Serum 1.40 mg/dl (0.52-1.04); Estimated Glomerular Filt Rate 36 ml/min (>60); GFR (African American) 44 ML/MIN (>60)
[2025-04-08 22:15] LABS: Alkaline Phosphatase 62 U/L (38-126); Bilirubin,Total 0.8 mg/dl (0.2-1.3); Calcium 9.0 mg/dl (8.4-10.2); Carbon Dioxide 20 mmol/L (22.0-30.0); Glucose 123 mg/dl (74-100); Total Protein,Serum 6.3 g/dl (6.3-8.2)
[2025-04-08 22:17] LABS: Anion Gap 12.4 mEq/L (5-15); Creatine Kinase < 20 U/L (30-135)
--- NOTE | 2025-04-08 22:18 | CT_ITS ---
PROCEDURE INFORMATION: Exam: CTA Chest Without And With Contrast Exam date and time: 04/08/2025 10:25 PM Age: 79 years old Clinical indication: Injury or trauma; Fall; Injury date: 04/08/25; Additional info: Trauma, fall TECHNIQUE: Imaging protocol: Computed tomographic angiography of the chest without and with contrast. Exam focused on the arteries. 3D rendering (Not supervised by radiologist): MIP and/or 3D reconstructed images were created by the technologist. Radiation optimization: All CT scans at this facility use at least one of these dose optimization techniques: automated exposure control; mA and/or kV adjustment per patient size (includes targeted exams where dose is matched to clinical indication); or iterative reconstruction. Contrast material: ISOVUE; Contrast volume: 80 ml; Contrast route: INTRAVENOUS (IV); COMPARISON: CT CHEST W CON 01/30/2025 8:25 AM FINDINGS: Pulmonary arteries: No aortic dissection or acute pulmonary embolus Aorta: Unremarkable. No aortic aneurysm. No aortic dissection. Lungs: Right upper lobe masslike consolidation measures 34 x 30 mm increased from previous exam. Small amount of interlobular septal thickening. Calcified granulomas are seen at the left lower lobe. Pleural spaces: Small pleural effusions. Small pleural effusions Heart: Unremarkable. No cardiomegaly. No pericardial effusion. Coronary arteries: Calcified coronary arteries Lymph nodes: Mediastinal and hilar lymph nodes are unchanged Bones/joints: Right anterior 7th rib nondisplaced nonsegmental acute fracture. Right anterolateral 8th rib nondisplaced nonsegmental acute rib fracture Soft tissues: Unremarkable. IMPRESSION: 1. Worsened right upper lobe lung mass concerning for malignancy. Correlate with patient's clinical history 2. Small pleural effusions are 3. Suspect mild pulmonary edema. 4. No CT evidence of aortic dissection or acute pulmonary embolus. 5. Right anterior acute rib fractures at 7th and 8th ribs.
[2025-04-08 22:24] LABS: Activated Partial Thrombo Time 40.5 seconds (22.8-30.6)
[2025-04-08 22:27] LABS: Troponin I < 0.01 ng/ml (0.00-0.034)
--- NOTE | 2025-04-08 22:27 | HMH.EDGENADL ---
Discharge Plan Prescriptions Prescriptions: No Action ammonium lactate 12 % cream 1 applic topical BID 30 Days Qty: 385 2RF paroxetine HCl 40 mg tablet 40 mg PO DAILY cyanocobalamin (vitamin B-12) 1,000 mcg/mL solution 100 mcg SQ .every two weeks (DME) syringe with needle [BD Luer-Stefania Syringe] 3 mL 23 x 1 syringe See Rx Instructions .ROUTE .MEDSUPPLY Qty: 800 Patient Comments: USE WITH B12 INJECTION Rx Instructions: As directed acyclovir 400 mg tablet 400 mg PO BID Patient Comments: TAKE 2 TABLETS BY MOUTH 2 TIMES A DAY temazepam 15 mg capsule 15 mg PO HS Patient Comments: TAKE 1 CAPSULE BY MOUTH AT BEDTIME losartan 100 mg tablet See Rx Instructions .ROUTE .COMPLEX Qty: 90 4RF Dose Instruction: TAKE ONE TABLET BY MOUTH ONCE A DAY Rx Instructions: TAKE ONE TABLET BY MOUTH ONCE A DAY rosuvastatin 5 mg tablet See Rx Instructions .ROUTE .COMPLEX Qty: 90 0RF Dose Instruction: TAKE ONE TABLET BY MOUTH ONCE A DAY FOR CHOLESTEROL Rx Instructions: TAKE ONE TABLET BY MOUTH ONCE A DAY FOR CHOLESTEROL furosemide 40 mg tablet 40 mg PO DAILY PRN (Reason: Fluid) Qty: 30 5RF clonazepam 0.5 mg tablet 0.5 mg PO DAILY albuterol sulfate 90 mcg/actuation HFA aerosol inhaler 2 inh inhalation Q6H PRN (Reason: shortness of breath or wheezing) 90 Days Qty: 8.5 1RF metoprolol succinate 50 mg tablet extended release 24 hr See Rx Instructions .ROUTE .COMPLEX Qty: 180 3RF Dose Instruction: TAKE ONE TABLET BY MOUTH 2 TIMES A DAY Rx Instructions: TAKE ONE TABLET BY MOUTH 2 TIMES A DAY warfarin 5 mg tablet 2.5 mg PO MOWEFR warfarin 5 mg tablet 5 mg PO SUTUTHSA meclizine 25 mg tablet 25 mg PO TID PRN (Reason: dizziness) Qty: 20 0RF ergocalciferol (vitamin D2) 50,000 UNIT capsule 50,000 units PO WEEKLY omeprazole 20 MG capsule,delayed release(DR/EC) 40 mg PO DAILY Referrals Follow up/Referrals: Victorina Estrada APRN [Primary Care Provider, Medical] - See instructions Print Language Print Language: Guinean Discharge ED Provider: Geraldine Haley General Adult HPI General Stated complaint: Fall Time Seen by Provider: 04/08/25 21:45 Mode of Arrival: EMS Limitations: Physical Limitations Description of Symptoms (Recalled from ER Triage Doc. by RN): Patient presents via [facility]. Patient reports she was sitting on the commode, she stood up to wipe and bent over too far falling against/into the tub. She alerted 911 with her life bracelet. EMS reports family last seen patient around 6pm, unsure of actual fall time. 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 Sitting on the toilet and wiping her bottom when she got off balance and fell on her right side over the bathtub. Patient was down for approximately 4 hours before she was able to contact someone for help with her life alert bracelet. Patient complaining of severe upper abdominal pain, did not hit head or lose consciousness Related Data Home Medications ?Medication ?Instructions ?Recorded ?Confirmed paroxetine HCl 40 mg tablet 40 mg PO DAILY mood 08/08/18 03/21/25 clonazepam 0.5 mg tablet 0.5 mg PO DAILY Anxiety 03/11/20 03/21/25 ergocalciferol (vitamin D2) 1,250 50,000 units PO WEEKLY 08/28/21 03/21/25 mcg (50,000 unit) capsule supplementation omeprazole 20 mg capsule,delayed 40 mg PO DAILY GERD 12/04/21 03/21/25 release warfarin 5 mg tablet 2.5 mg PO MOWEFR AFIB 04/13/22 03/21/25 warfarin 5 mg tablet 5 mg PO SUTUTHSA AFIB 04/13/22 03/21/25 cyanocobalamin (vitamin B-12) 100 mcg SQ .every two weeks 01/27/24 03/21/25 1,000 mcg/mL injection solution acyclovir 400 mg tablet 400 mg PO BID 02/19/25 03/21/25 syringe with needle 3 mL 23 x 1 #800 ea 02/19/25 03/21/25 (BD Luer-Stefania Syringe) temazepam 15 mg capsule 15 mg PO HS 02/19/25 03/21/25 Previous Rx's ?Medication ?Instructions ?Recorded albuterol sulfate 90 mcg/actuation 2 inh inhalation Q6H PRN shortness 10/27/22 aerosol inhaler of breath or wheezing 90 days #8.5 grams meclizine 25 mg tablet 25 mg PO TID PRN dizziness #20 tabs 12/19/22 ammonium lactate 12 % topical cream 1 applic topical BID dry skin, 11/09/24 callus care 30 days #385 grams furosemide 40 mg tablet 40 mg PO DAILY PRN Fluid #30 tabs 02/19/25 losartan 100 mg tablet See Rx Instructions .Route 02/19/25 .COMPLEX #90 tabs rosuvastatin 5 mg tablet See Rx Instructions .Route 02/19/25 .COMPLEX #90 tabs metoprolol succinate 50 mg See Rx Instructions .Route 03/20/25 tablet,extended release 24 hr .COMPLEX #180 tabs Allergies Allergy/AdvReac Type Severity Reaction Status Date / Time No Known Allergies Allergy Verified 03/21/25 13:10 [facility] Disclaimer: The information contained in this section may have been updated after the patient was seen, as this information can be updated by other users. Medical History (Updated 03/21/25 @ 13:34 by Khurram Hinton RN) Left ventricular dilation Mediastinal lymphadenopathy Hilar lymphadenopathy Asthma Pulmonary hypertension Multiple pulmonary nodules Shortness of breath Abnormal computerized axial tomography of chest Dyspnea on exertion Pulmonary nodule 1 cm or greater in diameter PAF (paroxysmal atrial fibrillation) Dyspnea Pulmonary hypertension SOB (shortness of breath) Surgical History History of arthroscopic knee surgery History of tonsillectomy History of cardiac cath Family History Other Cancer Coronary artery disease Hyperlipidemia Hypertension Social History Smoking Status: Never smoker alcohol intake: never substance use type: denies use current occupational status: unemployed and retired Travel in the last 8 weeks?: None household members: none housing: house current occupational exposures/hazards: No caffeine: Yes Have you lived/traveled outside US in past 30 days?: No Contact w/someone who lives/traveled outside US past 30 days?: No Exposure to someone with infectious disease in past 14 days?: No Do you have a fever (greater than 100.4 F or 38 C)?: No Have you tested positive for COVID-19?: No Exposed to someone with COVID-19 in past 14 days?: No Do you have a sore throat?: No Do you have a cough?: No Do you have any weakness?: No Do you have any diarrhea?: No Are you experiencing any unusual bleeding?: No Do you have any muscle aches/pain?: No Do you have any abdominal pain?: No Are you experiencing loss of taste or smell?: No Other Medical History Have you received the Flu Vaccine for this season: No Have you received the Pneumonia Vaccine: Yes ROS Obtained: Yes All systems reviewed & no additional complaints except as documented Physical Exam General General appearance: alert and in no apparent distress Head Head exam: atraumatic and normocephalic Eye Eye exam: Present normal appearance, PERRL and EOMI Neck Neck exam: Absent tenderness Chest Chest inspection: Present tenderness (bilateral anterior chest wall with bruising to inferior rib cage) Respiratory Respiratory exam: Present other (shallow breaths, splinting) Cardiovascular Cardiovascular exam: Present regular rate and irregular rhythm Abdominal Exam Abdominal exam: Present soft, tenderness (Epigastrium and right upper quadrant left upper quadrant) and guarding Extremities Exam Extremities exam: Present full ROM and tenderness (Bilateral knees) Back Exam Back exam: Present normal inspection; Absent tenderness Neurological Exam Neurological exam: Present alert and oriented X3; Absent motor sensory deficit Skin Skin exam: Present other ( abrasion of the left knee) Medical Decision Making Medical Records Screening: Per USPSTF and CDC recommendations, given the prevalence of disease in our region, it is our hospital?s policy to screen for HIV and viral Hepatitis for all patients aged 18 and over and those with ongoing risk factors. Maximus Inquiry Pt receiving controlled substance: No Vital Signs: 04/08/25 21:50 04/08/25 21:50 04/08/25 22:01 Temperature 98.2 F Temperature Source Oral Pulse Rate 80 83 Pulse Rate [Right Radial] 75 Respiratory Rate 14 15 11 L Blood Pressure 213/96 H 197/90 H Blood Pressure [Left Arm] 190/110 H Blood Pressure Mean 135 145 Blood Pressure Mean [Left Arm] 136 Blood Pressure Position [Left Arm] Supine 02 Sat by Pulse Oximetry 94 L 97 96 Oxygen Delivery Method Nasal Cannula Oxygen Flow Rate (LPM) 2 04/08/25 22:08 04/08/25 22:44 Temperature 98.2 F Temperature Source Pulse Rate 80 74 Pulse Rate [Right Radial] Respiratory Rate 10 L 14 Blood Pressure 137/90 215/103 H Blood Pressure [Left Arm] Blood Pressure Mean 140 Blood Pressure Mean [Left Arm] Blood Pressure Position [Left Arm] 02 Sat by Pulse Oximetry 93 L 93 L Oxygen Delivery Method Nasal Cannula Oxygen Flow Rate (LPM) 93 Lab Data Lab Results 04/08/25 21:47: WBC 7.2, RBC 3.20 L, Hgb 10.5 L, Hct 30.7 L, MCV 95.9, MCH 32.8 H, MCHC 34.2, RDW 15.0, Plt Count 126 L, MPV 9.7, Neut % (Auto) 70.0, Lymph % (Auto) 19.4, [place] % (Auto) 7.9, Eos % (Auto) 1.4, Baso % (Auto) 0.6, Neut # (Auto) 5.0, Lymph # (Auto) 1.4, [place] # (Auto) 0.6, Eos # (Auto) 0.1, Baso # (Auto) 0.0, PT 79.4 H, INR 8.00 H, APTT 40.5 H, Sodium 128 L, Potassium 4.4, Chloride 100, Carbon Dioxide 20 L, Anion Gap 12.4, BUN 20 H, Creatinine 1.40 H, Estimated Creat Clear 52, Estimated GFR 36 L, Est GFR ( Amer) 44 L, Glucose 123 H, Calcium 9.0, Total Bilirubin 0.8, AST 30, ALT 20, Alkaline Phosphatase 62, Total Creatine Kinase < 20 L, Troponin I < 0.01, Total Protein 6.3, Albumin 4.2, Globulin 2.1, Albumin/Globulin Ratio 2.0 H 04/08/25 21:47 04/08/25 21:47 Orders (Tests/Meds): ED MEDICATIONS Generic Name Dose Route Start Last Admin Trade Name Freq PRN Reason Stop Dose Admin Acetaminophen 1,000 mg 04/08/25 23:01 Acetaminophen 500mg Tab PO 04/08/25 23:02 ONCE ONE Irbesartan 150 mg 04/08/25 22:58 Irbesartan 150mg Tab PO 04/08/25 22:59 ONCE ONE Methocarbamol 1,000 mg 04/08/25 23:02 Methocarbamol 500mg Tablet PO 04/08/25 23:03 ONCE ONE Metoprolol Succinate 50 mg 04/08/25 22:58 Metoprolol Succinate Xl 50mg Tablet PO 04/08/25 22:59 ONCE ONE Oxycodone HCl 5 mg 04/08/25 23:02 Oxycodone 5mg Immediate Release Tablet PO 04/08/25 23:03 ONCE ONE Sodium Chloride 10 ml 04/08/25 21:45 Sodium Chloride 0.9% 10ml Flush Syringe IV 05/08/25 21:44 NEEDED PRN Maintain IV Site Sodium Chloride 10 ml 04/08/25 22:34 04/08/25 22:35 Sodium Chloride 0.9% 10ml Syr (Rad Only) IV 05/08/25 22:33 10 ml NEEDED PRN Administration Maintain IV Site Tetanus/Reduced Diphtheria/Acell Pertussis 0.5 ml 04/08/25 21:45 Tet/Diphth/Pert-Adult 0.5ml Syringe IM 05/08/25 21:44 .ONCE ALLISON Discontinued Medications Generic Name Dose Route Start Last Admin Trade Name Freq PRN Reason Stop Dose Admin Iopamidol 80 ml 04/08/25 22:34 04/08/25 22:35 Iopamidol-370 (76%);100ml Bottle IV 04/08/25 22:35 80 ml ONCE ONE Administration Morphine Sulfate 4 mg 04/08/25 21:46 04/08/25 21:49 Morphine 4mg/Ml Syringe IV 04/08/25 21:47 4 mg ONCE ONE Administration Morphine Sulfate 4 mg 04/08/25 21:45 04/08/25 21:48 Morphine 4mg/Ml Syringe IV 04/08/25 21:46 Not Given ONCE ONE Ondansetron HCl 4 mg 04/08/25 21:46 04/08/25 21:48 Ondansetron 4mg/2ml Vial IV 04/08/25 21:47 4 mg ONCE ONE Administration Ondansetron HCl 4 mg 04/08/25 21:45 04/08/25 21:48 Ondansetron 4mg/2ml Vial IV 04/08/25 21:46 Not Given ONCE ONE Sodium Chloride 50 ml 04/08/25 22:34 04/08/25 22:36 0.9 % Sodium Chloride 50 Ml Vial IV 04/08/25 22:35 50 ml ONCE ONE Administration ORDERS Category Date Time Status CT angio abd/pel - TRAUMA Stat Cat Scan 04/08/25 21:[address] bony pelvis Stat Cat Scan 04/08/25 21:[address] cervical spine wo con Stat Cat Scan 04/08/25 21:[address] head/brain wo con Stat Cat Scan 04/08/25 21:[address] lumbar spine wo con Stat Cat Scan 04/08/25 21:[address] thoracic spine wo con Stat Cat Scan 04/08/25 21:46 Completed CTA Chest [CT angio chest - dissection] Stat Cat Scan 04/08/25 22:18 Completed Pelvis XR 1-2 views [XR pelvis 1-2V] Stat Exams 04/08/25 21:44 Completed XR chest portable Stat Exams 04/08/25 21:44 Completed XR femur LT 2V Stat Exams 04/08/25 22:29 Ordered XR femur RT 2V Stat Exams 04/08/25 22:29 Ordered XR knee LT 3V Stat Exams 04/08/25 22:29 Ordered XR knee RT 3V Stat Exams 04/08/25 22:29 Ordered XR tibia fibula LT 2V Stat Exams 04/08/25 22:29 Ordered XR tibia fibula RT 2V Stat Exams 04/08/25 22:29 Ordered Activated Partial Thrombo Time Stat Lab 04/08/25 21:47 Completed Complete Blood Count Auto Diff Stat Lab 04/08/25 21:47 Completed Comprehensive Metabolic Panel Stat Lab 04/08/25 21:47 Completed Creatine Kinase Stat Lab 04/08/25 21:47 Completed Prothrombin Time INR Stat Lab 04/08/25 21:47 Completed Troponin I Q3H Lab 04/09/25 01:00 Ordered Troponin I Q3H Lab 04/09/25 04:00 Ordered Troponin I Stat Lab 04/08/25 21:47 Completed Medical Decision Narrative: In summary, this 79-year-old female presents to the emergency department today with fall. On initial evaluation patient is in no acute distress. Hypertensive normal heart rate saturating appropriately on 2 L oxygen requirement. Differential diagnosis includes but is not limited to intracranial hemorrhage vertebral fracture rib fracture rhabdomyolysis hemothorax pneumothorax blunt cardiac injury sternal fracture solid organ or hollow viscus injury extremity fracture dislocation present. Based on these concerns, I ordered CBC CMP troponin EKG CT head CT and L-spine CTA chest abdomen pelvis chest x-ray pelvis x-ray x-ray bilateral femur knees and tib-fib. ECG personally interpreted demonstrates atrial fibrillation no ST elevation ST depression or T wave inversions concerning for ischemia Patient received morphine and zofran, [facility] inclduing oxycodone, robaxin, tylenol, lidocaine patch for treatment. Labs personally reviewed demonstrate hyponatremia, hb 10.5, INR 8, normal troponin, normal CK XR personally interpreted demonstrates pulmonary infiltrate RUL, no widening of pubic symphisis. CT imaging personally interpreted demonstrate pulmonary infiltrate RUL, 7 and 8th anterior rib fx I had an interactive discussion with Dr. Love at with Trauma, recommended transfer for further management secondary to hypoxic respiratory failure in the setting of rib fractures with rig score 9 pulling 500 on I-S Considered serratus anterior block for regional anesthesia 2/2 uncontrollable pain however INR 8 and contraindicated at this time. Critical Care Critical Care Time Critical Care Time: No
[2025-04-08 22:28] LABS: Albumin Level 4.2 g/dl (3.5-5.0); Albumin/Globulin Ratio 2.0 (1.1-1.8); Globulin 2.1 g/dL (1.3-3.2)
[2025-04-08 22:29] LABS: INR 8.00 (0.9-1.1); Prothrombin Time 79.4 seconds (10.1-12.5)
--- NOTE | 2025-04-08 22:29 | XR_ITS ---
PROCEDURE INFORMATION: Exam: XR Left Knee Exam date and time: 04/08/2025 10:46 PM Age: 79 years old Clinical indication: Injury or trauma; Fall; Blunt trauma; Knee; Left; Additional info: Fall, pain TECHNIQUE: Imaging protocol: Radiologic exam of the left knee. Views: 3 views. COMPARISON: CR XR KNEE LT 3V 08/05/2024 7:56 PM FINDINGS: Bones/joints: 3 component knee arthroplasty. No joint effusions. No acute fracture Soft tissues: Normal. IMPRESSION: No acute fracture/malalignment.
--- NOTE | 2025-04-08 22:29 | XR_ITS ---
PROCEDURE INFORMATION: Exam: XR Left Femur Exam date and time: 04/08/2025 10:46 PM Age: 79 years old Clinical indication: Injury or trauma; Fall; Blunt trauma; Thigh or upper leg; Left; Additional info: Fall, pain TECHNIQUE: Imaging protocol: Radiologic exam of the left femur. Views: 2 views. COMPARISON: CT ANGIO ABD/PEL - TRAUMA 04/08/2025 10:25 PM FINDINGS: Bones/joints: Three component knee arthroplasty. Anatomic alignment of osseous structures. No joint effusions Soft tissues: Unremarkable. IMPRESSION: No acute findings.
--- NOTE | 2025-04-08 22:29 | XR_ITS ---
PROCEDURE INFORMATION: Exam: XR Left Tibia and Fibula Exam date and time: 04/08/2025 10:46 PM Age: 79 years old Clinical indication: Injury or trauma; Fall; Blunt trauma; Lower leg; Left; Additional info: Fall, pain TECHNIQUE: Imaging protocol: Radiologic exam of the left tibia and fibula. Views: 2 views. COMPARISON: CR XR TIBIA FIBULA LT 2V 08/05/2024 7:04 PM FINDINGS: Bones/joints: Three component knee arthroplasty. Anatomic alignment. No acute Fracture. Soft tissues: Normal. IMPRESSION: No visible acute fracture/malalignment.
--- NOTE | 2025-04-08 22:29 | XR_ITS ---
PROCEDURE INFORMATION: Exam: XR Right Femur Exam date and time: 04/08/2025 10:46 PM Age: 79 years old Clinical indication: Injury or trauma; Fall; Blunt trauma; Thigh or upper leg; Right; Additional info: Fall, pain TECHNIQUE: Imaging protocol: Radiologic exam of the right femur. Views: 2 views. COMPARISON: CT ANGIO ABD/PEL - TRAUMA 04/08/2025 10:25 PM FINDINGS: Bones/joints: Unremarkable. No acute fracture. Previous knee arthroplasty. Soft tissues: No joint effusion. IMPRESSION: No acute findings.
--- NOTE | 2025-04-08 22:29 | XR_ITS ---
PROCEDURE INFORMATION: Exam: XR Right Knee Exam date and time: 04/08/2025 10:46 PM Age: 79 years old Clinical indication: Injury or trauma; Fall; Blunt trauma; Knee; Right; Additional info: Fall, pain TECHNIQUE: Imaging protocol: Radiologic exam of the right knee. Views: 3 views. COMPARISON: US - CA VENOUS DOPPLER LE RT 04/05/2020 10:12 AM FINDINGS: Bones/joints: Right knee 3 component knee arthroplasty. Anatomic alignment. No joint effusions Soft tissues: Normal. IMPRESSION: 1. Knee arthroplasty 2. No joint effusions.
--- NOTE | 2025-04-08 22:29 | XR_ITS ---
PROCEDURE INFORMATION: Exam: XR Right Tibia and Fibula Exam date and time: 04/08/2025 10:46 PM Age: 79 years old Clinical indication: Injury or trauma; Fall; Blunt trauma; Lower leg; Right; Additional info: Fall, pain TECHNIQUE: Imaging protocol: Radiologic exam of the right tibia and fibula. Views: 2 views. COMPARISON: US - CA VENOUS DOPPLER LE RT 04/05/2020 10:12 AM FINDINGS: Bones/joints: Normal. Knee arthroplasty. Anatomic alignment. Soft tissues: Normal. IMPRESSION: No acute findings.
[2025-04-08] MEDS: SODIUM CHLORIDE 0.9% 10ML SYR (RAD ONLY) 10 ML IV (22:35)
[2025-04-08] MEDS: IOPAMIDOL-370 (76%);100ML BOTTLE 80 ML IV (22:35)
[2025-04-08] MEDS: 0.9 % SODIUM CHLORIDE 50 ML VIAL IV (22:36)
--- NOTE | 2025-04-08 23:15 | PC.NURSE ---
Report called to [facility]
[2025-04-08] MEDS: OXYCODONE 5MG IMMEDIATE RELEASE TABLET 5 MG PO (23:36)
[2025-04-08] MEDS: METHOCARBAMOL 500MG TABLET 1000 MG PO (23:36)
[2025-04-08] MEDS: METOPROLOL SUCCINATE XL 50MG TABLET 50 MG PO (23:37)
[2025-04-08] MEDS: ACETAMINOPHEN 500MG TAB 1000 MG PO (23:37)
--- NOTE | 2025-04-08 23:47 | PC.NURSE ---
called EMS for transportation to ED
[2025-04-08] MEDS: IRBESARTAN 150MG TAB 150 MG PO (23:50)
== END 2025-04-09 00:21 | disposition short-term general hospital (02) ==
PROVIDERS: Emergency Provider Student in an Organized Health Care Education/Training Program; PCP Nurse Practitioner Family
DX: J96.01 Acute respiratory failure with hypoxia (principal); S22.41XA Multiple fractures of ribs, right side, initial encounter for closed fracture; R10.10 Upper abdominal pain, unspecified; R79.1 Abnormal coagulation profile; I48.91 Unspecified atrial fibrillation; E87.1 Hypo-osmolality and hyponatremia; W18.11XA Fall from or off toilet without subsequent striking against object, initial encounter
CPT/HCPCS: 70450; 71045; 71275; 72125; 72128; 72131; 72170; 72192; 73552; 73562; 73590; 74174; 80053; 82550; 84484; 85025; 85610; 85730; 93005; 96374; 96375; 99285; 99291; G0390; J2270; J2405; Q9967